=== PATIENT | female | born 1955 ===

== ENCOUNTER 2020-02-09 10:07 | Emergency (ER) | payer OTHER, SELFPAY ==
[2020-02-09 10:25] VITALS: BP 129/67; PULSE 98; RESP 16; TEMP 38; O2SAT 95; BMI 40.1
--- NOTE | 2020-02-09 10:41 | ED_ITS ---
HPI - Female Genitourinary General Chief complaint: Urogenital-Female Stated complaint: ?UTI Time Seen by Provider: 02/09/20 10:40 Source: patient Mode of arrival: ambulatory Limitations: no limitations History of Present Illness HPI Narrative: 64-year-old female with a past medical history of asthma here with urinary urgency, frequency and dysuria since last evening. Some mild suprapubic discomfort. No abdominal pain or back pain or flank pain or vomiting or fevers. She does tell me she had some body aches yesterday and called her primary care doctor and has an appointment on Tuesday to see him. She denies any fevers or chills. MD elicited complaint: dysuria and UTI Onset (ago): day(s) Severity: mild Female Urogenital Radiation: Non-Radiating Quality of pain: burning Consistency: constant Vaginal discharge: none Vaginal bleeding: none Urinary symptoms: Dysuria, Urgency and Frequency Exacerbating factors: urination Relieving factors: none Associated symptoms: denies other symptoms Treatment prior to arrival: none Sexual activity: No Patient : No Related Data Previous Rx's Medication Instructions Recorded levofloxacin 750 mg PO DAILY 5 Days #5 tab 02/09/20 phenazopyridine [Pyridium] 100 mg PO TID PRN #10 tab 02/09/20 Allergies Allergy/AdvReac Type Severity Reaction Status Date / Time Penicillins [PENICILLINS] Allergy Unknown RASH Verified 02/08/20 13:05 Review of Systems Review of Systems: Yes all other systems are reviewed and are negative Constitutional: Constitutional: Reports no additional constitutional complaints, Denies body ache(s), Denies chills, Denies fever(s), Denies headache(s) and Denies weakness Eyes: Eyes: Reports no additional eye complaints and Denies change in vision ENT: Reports system reviewed and no additional complaints, except as documented, Denies dizziness, Denies headache(s), Denies nasal congestion, Denies nasal discharge and Denies neck pain Cardiovascular: Cardiovascular: Reports no additional cardiovascular complaints, Denies chest pain, Denies leg edema and Denies dyspnea Respiratory: Respiratory: Reports no additional respiratory complaints, Denies cough and Denies dyspnea Gastrointestinal: Gastrointestinal: Reports no additional gastrointestinal complaints, Denies abdominal pain, Denies diarrhea, Denies nausea and Denies vomiting Genitourinary: Genitourinary: Reports no additional female genitourinary complaints, Reports dysuria, Denies pelvic pain, Denies flank pain, Denies urinary incontinence, Reports urinary hesitancy, Reports urinary urgency and Denies vaginal discharge Musculoskeletal: Musculoskeletal: Reports no additional musculoskeletal complaints, Denies back pain, Denies arthralgias, Denies joint swelling, Denies neck pain, Denies numbness and Denies tingling Integumentary/Breasts: Skin/Breast: Reports system reviewed and no additional complaints, except as docu and Denies rash Neurologic: Reports system reviewed and no additional complaints, except as documented, Denies Abnormal speech present, Denies dizziness, Denies he adache(s), Denies numbness, Denies tingling and Denies weakness PMFSH Past Medical History Attestation statement: The following information was validated with the patient. Source: obtained from family and nursing notes reviewed Medical History Asthma Surgical History History of cardiac catheterization History of colonoscopy History of nephrolithotomy with removal of calculi History of tooth extraction Family History Family History Father Hypertension Mother Hypertension Diabetes CVD (cardiovascular disease) Daughter No problems noted. Family/Other FH: mental illness Social History Social History Alcohol intake: never Smoking Status: Never smoker Advance Directives: No Advance Directives Information Provided: No Physical Exam Vital Signs: Vital Signs: Vital Signs Temp Pulse Resp BP Pulse Ox 02/09/20 10:25 100.4 F 98 16 129/67 95 Body Mass Index 40.1 Const: General: cooperative, healthy appearing, comfortable and no acute distress Orientation/consciousness: patient oriented x3 Limitations: no limitations HENMT: Head: Yes normal to inspection Ears: hearing grossly normal bilaterally General nose exam: Normal external nose present Face and sinus: Yes normal facial exam Mouth: Normal oral and palatal mucosa present Throat: Yes posterior oropharynx normal Eyes: General: appearance normal, both eyes and all related structures Pupils: Equal, round and reactive pupils present Neck: Neck: Yes normal visual inspection Chest: Chest palpation & inspection: normal inspection of the chest Resp: Effort & Inspection: normal respiratory effort Auscultation: clear to auscultation bilaterally Cardio: Rate: regular rate Rhythm: regular rhythm Peripheral pulses: Peripheral pulses 2+ throughout GI: Inspection: Yes normal to inspection Palpation (GI): Soft to palpation and nontender Auscultation: normal bowel sounds : General: Yes no CVA tenderness Back/Spine/Pelvis: Back: no CVA tenderness Thoracic/Lumbar Spine: thoracic and lumbar spine normal to inspection Skin: General skin exam: no rashes or lesions noted Neuro: General: patient oriented x3, no focal motor deficits and normal sensation to monofilament Cranial nerves: Yes Equal, round and reactive pupils present Cognition (Neuro): normal cognition Speech: No Abnormal spe ech present Gait exam (Neuro): Normal gait present Motor exam (neuro): 5/5 motor strength present throughout Extrem: General: Yes normal to inspection Course Course Course Narrative: Urinary symptoms. Will check UA. 1100-+UTI. WIll treat with oral antibiotics x 5 days. Low grade temp with no s/s systemic infection. No AP/flank pain, well appearing. Patient to take tylenol at home. reviewed worrisome signs and symptoms and when to return to the emergency department. Comfortable discharge home. MDM - Female Genitourinary MDM Narrative Medical decision making narrative: UA consistent with UTI. There is 1+ RBCs. The patient has no flank pain or severe abdominal pain that is concerning for renal colic. Likely acute cystitis. Medical Records Attestation: I reviewed the patient's medical records. Lab Data Attestation: I reviewed the patient's lab results. Labs: Lab Results 02/09/20 Range/Units 10:33 Urine Color YELLOW Urine Appearance CLEAR Urine pH 6.0 (5.0-8.0) Ur Specific Dexter 1.015 (1.005-1.025) Urine Protein NEG (NEG-TRACE) MG/DL Urine Glucose (UA) NEG (NEG) MG/DL Urine Ketones NEG (NEG) MG/DL Urine Blood 1+ H (NEG) Urine Nitrite NEG (NEG) Ur Leukocyte Esterase 1+ H (NEG) Urine RBC 1-4 (0) /HPF Urine WBC 15-29 H (0-4) /HPF Ur Squamous Epith Cells 1+ /LPF Urine Bacteria NONE /LPF Discharge Plan Discharge Clinical Impression: Urinary tract infection Qualifiers: Urinary tract infection type: acute cystitis Hematuria presence: with hematuria Qualified Code(s): N30.01 - Acute cystitis with hematuria Patient Disposition: Home, Self-Care Instructions: Urinary Tract Infection in Women (ED) Additional Instructions: increase fluids, rest Prescriptions: New levofloxacin 750 mg tablet 750 mg PO DAILY 5 Days Qty: 5 RF: 0 phenazopyridine [Pyridium] 100 mg tablet 100 mg PO TID PRN (Reason: pain) Qty: 10 RF: 0 Referrals: Curt Falk MD [Primary Care Provider] - 2 days
[2020-02-09 10:46] LABS: Glucose Urine UA NEG (NEG); Leukocyte Esterase Urine 1+ (NEG); Nitrite Urine NEG (NEG); Specific Gravity - Urine 1.015 (1.005-1.025); Urine Blood 1+ (NEG); Urine Ketones NEG (NEG); Urine Protein NEG (NEG-TRACE)
[2020-02-09 10:51] LABS: Appearance Urine CLEAR; Color Urine YELLOW
[2020-02-09 10:54] LABS: Squamous Epithelial Cell Urine 1+ /LPF
== END 2020-02-09 11:08 | disposition home or self-care (01) ==
PROVIDERS: Nurse Practitioner Family; Emergency Provider Emergency Medicine; PCP Internal Medicine
DX: N30.01 Acute cystitis with hematuria (principal); I10 Essential (primary) hypertension; R30.0 Dysuria; E11.9 Type 2 diabetes mellitus without complications; J45.909 Unspecified asthma, uncomplicated; Z79.899 Other long term (current) drug therapy
CPT/HCPCS: 81001; 87086; 99283; 99284

== ENCOUNTER 2020-02-11 10:51 | Outpatient (REF) | payer OTHER, SELFPAY ==
[2020-02-11 11:49] LABS: MANUAL DIFF FLAG NO
[2020-02-11 12:04] LABS: Basophils Percent Auto 0.8 % (0-2); Eosinophils Absolute Auto 0.3 X10*3/uL (0.0-0.4); Eosinophils Percent Auto 5.6 % (0-4); Hematocrit 36.8 % (37-47); Hemoglobin 11.6 g/dl (12.0-16.0); Imm Gran Abs Auto 0.02 X10*3/uL (0.00-0.03); Imm Gran Pct Auto 0.4 % (0.0-0.4); Mean Corpuscular HGB Conc 31.5 g/dl (31.0-35.0); Mean Corpuscular Hemoglobin 26.8 pg (27.0-33.0); Mean Platelet Volume 11.4 fL (9.4-12.3); Monocytes Absolute Auto 0.4 X10*3/uL (0.1-1.2); Monocytes Percent Auto 7.5 % (2-11); Neutrophils Absolute Auto 2.1 X10*3/uL (2.0-8.3); Neutrophils Percent Auto 43.7 % (45-73); Platelet Count 200 X10*3/uL (160-400); Red Blood Count 4.33 X10*6/uL (4.20-5.50); Red Cell Distribution Width 13.6 % (11.0-16.0); White Blood Count 4.8 X10*3/uL (4.8-10.8)
[2020-02-11 12:17] LABS: Glucose Urine UA NEG (NEG); Leukocyte Esterase Urine NEG (NEG); PH 5.5 (5.0-8.0); Specific Gravity - Urine >= 1.030 (1.005-1.025); Urine Blood NEG (NEG); Urine Ketones NEG (NEG); Urine Protein TRACE MG/DL (NEG-TRACE)
[2020-02-11 12:23] LABS: Alanine Aminotransferase 12 U/L (0-31); Albumin Level 4.2 g/dL (3.5-5.0); Alkaline Phosphatase 71 U/L (39-117); Anion Gap 13 (12-20); Aspartate Amino Transferase 18 U/L (5-31); Bilirubin Total 0.3 mg/dL (0.0-1.0); Blood Urea Nitrogen 14 mg/dL (9-16); C Reactive Protein 0.51 mg/dL (< or = 0.50); Calcium 9.4 mg/dL (8.4-10.2); Carbon Dioxide 28 mmol/L (22-29); Chloride 106 mmol/L (96-108); Cholesterol 252 mg/dL; Estimated Glomerular Filt Rate 55; Glucose Fasting 98 mg/dL (60-99); HDL Cholesterol 37 mg/dL; LDL Cholesterol Calculated 163 mg/dl; Potassium 4.1 mmol/l (3.3-5.1); Rheumatoid Factor < 15.0 IU/mL (<15.0); Sodium 143 mmol/L (135-145); Total Protein 6.9 g/dL (6.5-8.0); Triglycerides 261 mg/dL
[2020-02-11 12:28] LABS: Appearance Urine HAZY; Color Urine YELLOW
[2020-02-11 12:47] LABS: Nitrite Urine NEG (NEG); RBC Urine 0 /HPF (0); WBC Urine 0-2 /HPF (0-4)
[2020-02-11 12:48] LABS: Calcium Oxalate Crystals Urine TRACE /LPF; Squamous Epithelial Cell Urine 1+ /LPF
[2020-02-11 12:52] LABS: Erythrocyte Sedimentation Rate 30 MM/HR (0-20)
[2020-02-12 08:37] LABS: Lyme Abs Screen <0.90 index
== END 2020-02-11 10:52 | disposition home or self-care (01) ==
LOC: HO.LAB 10:51
PROVIDERS: PCP Internal Medicine; Visit Provider Internal Medicine
DX: M25.50 Pain in unspecified joint (principal); N30.10 Interstitial cystitis (chronic) without hematuria; K21.9 Gastro-esophageal reflux disease without esophagitis; I25.10 Atherosclerotic heart disease of native coronary artery without angina pectoris; I10 Essential (primary) hypertension; E78.00 Pure hypercholesterolemia, unspecified; E66.9 Obesity, unspecified
CPT/HCPCS: 36415; 80053; 80061; 81001; 81003; 84443; 85025; 85652; 86038; 86039; 86140; 86431; 86618; 87086; 87088; 87186

== ENCOUNTER 2020-04-17 07:23 | Emergency (ER) | payer OTHER, SELFPAY ==
[2020-04-17 07:34] VITALS: BP 112/67; PULSE 87; RESP 16; TEMP 36.6; O2SAT 99; BMI 39.0
--- NOTE | 2020-04-17 08:00 | ED.SKABFB ---
HPI - Skin/Abscess/Foreign Bdy General Chief complaint: Skin/Abscess/Foreign Body Stated complaint: allergies Time Seen by Provider: 04/17/20 07:57 History of Present Illness HPI narrative: Patient is 64-year-old female presented today with a history allergic reactions. Patient has been taking multiple antihistamines. Symptoms not getting any better. Patient claims that she has had steroids in the past and help. No history diabetes. No fever no chills no cough no congestion or upper respiratory symptoms. No diaphoresis. No swelling to the lips no swelling to the tongues. Patient is from home. The rash is over bilateral hands bilateral legs. It is red it is itchy. It changes shape. Related Data Home Medications Medication Instructions Recorded Confirmed clonazepam 1 mg tablet 1 mg PO TID PRN 02/11/20 02/26/20 hydroxyzine HCl 25 mg tablet 25 mg PO TID 02/11/20 02/26/20 montelukast 10 mg tablet 10 mg PO DAILY 02/11/20 02/26/20 quetiapine 200 mg tablet 200 mg PO BEDTIME 02/11/20 02/26/20 cetirizine 10 mg tablet 10 mg PO BID 02/26/20 02/26/20 oxycodone-acetaminophen 7.5 mg-325 1 tab PO Q6H PRN 03/07/20 mg tablet prednisone 20 mg tablet 20 mg PO DAILY 04/03/20 Previous Rx's Medication Instructions Recorded omeprazole 40 mg capsule,delayed 40 mg PO DAILY #90 cap 02/11/20 release rosuvastatin 40 mg tablet 40 mg PO DAILY #90 tab 03/06/20 prednisone 40 mg PO DAILY 4 Days #10 tab 04/17/20 Allergies Allergy/AdvReac Type Severity Reaction Status Date / Time Penicillins [PENICILLINS] Allergy Intermediate RASH Verified 02/26/20 13:04 Review of Systems Review of Systems: Constitutional: No Weight loss, No Fever, No Chills, No Night Sweats, No Fatigue, No Malaise ENT/Mouth: No Hearing loss, No Ear Pain, No Nasal Congestion, No Sinus Pain, No Hoarseness, No sore throat, No Rhinorrhea, No Swallowing Difficulty Eyes: No Eye Pain, No Swelling, No Redness, No Foreign Body, No Discharge, No Vision Changes Cardiovascular: No Chest Pain, No SOB, No Dyspnea on Exertion, No Orthopnea, No Edema, No Palpitations Respiratory: No Cough, No Sputum, No Wheezing, No Smoke Exposure, No Dyspnea Gastrointestinal: No Nausea, No Vomiting, No Diarrhea, No Constipation, No abdominal Pain, No Hematochezia, No Melena Genitourinary: no irregular bleeding, No Dysuria, No Urinary Frequency, No Hematuria, No Urinary Incontinence, No Urgency, No Flank Pain, No Urinary Flow Changes, No Hesitancy Musculoskeletal: No joint pain, No Myalgias, No Joint Swelling Skin: No Skin Lesions, positive rash Neuro: No Weakness, No Numbness, No Paresthesias, No Loss of Consciousness, No Dizziness, No Headache Psych: No Anxiety/Panic, No Depression, No SI/HI/AH/VH, No Social Issues, Heme/Lymph: No Bruising, No Bleeding,No Lymphadenopathy Endocrine: No Polyuria, No Polydipsia, No Temperature Intolerance [facility] Past Medical History Medical History Anxiety Arthralgia Benign essential hypertension CAD (coronary artery disease) Chronic interstitial cystitis Depression Esophageal stricture GERD (gastroesophageal reflux disease) Insomnia Irritable bowel syndrome (IBS) Left lumbar radiculopathy Lumbar degenerative disc disease Obesity (BMI 30-39.9) Osteoarthritis Pure hypercholesterolemia Urticaria Vitamin D deficiency Surgical History History of cardiac catheterization History of colonoscopy History of nephrolithotomy with removal of calculi History of tooth extraction Status post balloon dilatation of esophageal stricture (~2005) Family History Family History Father Hypertension Mother Hypertension Diabetes CVD (cardiovascular disease) Daughter No problems noted. Family/Other FH: mental illness Social History Social History Alcohol intake: never Smoking Status: Never smoker Advance Directives: No Advance Directives Information Provided: No Physical Exam Vital Signs: Vital Signs: Last Vital Signs Temp 97.8 F 04/17/20 07:34 Pulse 87 04/17/20 07:34 Resp 16 04/17/20 07:34 BP 112/67 04/17/20 07:34 Pulse Ox 99 04/17/20 07:34 Body Mass Index 39.0 Constitutional: No Weight loss, No Fever, No Chills, No Night Sweats, No Fatigue, No Malaise ENT/Mouth: No Hearing loss, No Ear Pain, No Nasal Congestion, No Sinus Pain, No Hoarseness, No sore throat, No Rhinorrhea, No Swallowing Difficulty Eyes: No Eye Pain, No Swelling, No Redness, No Foreign Body, No Discharge, No Vision Changes Cardiovascular: No Chest Pain, No SOB, No Dyspnea on Exertion, No Orthopnea, No Edema, No Palpitations Respiratory: No Cough, No Sputum, No Wheezing, No Smoke Exposure, No Dyspnea Gastrointestinal: No Nausea, No Vomiting, No Diarrhea, No Constipation, No abdominal Pain, No Hematochezia, No Melena Genitourinary: no irregular bleeding, No Dysuria, No Urinary Frequency, No Hematuria, No Urinary Incontinence, No Urgency, No Flank Pain, No Urinary Flow Changes, No Hesitancy Musculoskeletal: No joint pain, No Myalgias, No Joint Swelling Skin: No Skin Lesions, positive erythematous rash over the hands and legs. It has an irregular border it is red. It is pruritic. It blanches. Neuro: No Weakness, No Numbness, No Paresthesias, No Loss of Consciousness, No Dizziness, No Headache Psych: No Anxiety/Panic, No Depression, No SI/HI/AH/VH, No Social Issues, Heme/Lymph: No Bruising, No Bleeding,No Lymphadenopathy Endocrine: No Polyuria, No Polydipsia, No Temperature Intolerance MDM - Skin/Abscess/Foreign Bdy MDM Narrative Medical decision making narrative: Uticaria no specific cause. Patient well appearing. Have tried antihistamine to no avail. Will start patient on steroids. Close follow-up on an outpatient basis. In stable condition. Medical Records Attestation: I reviewed the patient's medical records. Discharge Plan Discharge Clinical Impression: Acute urticaria Patient Disposition: Home, Self-Care Instructions: Allergies (ED) Prescriptions: New prednisone 20 mg tablet 40 mg PO DAILY 4 Days Qty: 10 RF: 0 No Action omeprazole 40 mg capsule,delayed release(DR/EC) 40 mg PO DAILY Qty: 90 RF: 1 rosuvastatin 40 mg tablet 40 mg PO DAILY Qty: 90 RF: 1 oxycodone-acetaminophen 7.5-325 mg tablet 1 tab PO Q6H PRNRF: 0 prednisone 20 mg tablet 20 mg PO DAILY RF: 0 cetirizine 10 mg tablet 10 mg PO BID RF: 0 clonazepam 1 mg tablet 1 mg PO TID PRNRF: 0 montelukast 10 mg tablet 10 mg PO DAILY RF: 0 hydroxyzine HCl 25 mg tablet 25 mg PO TID RF: 0 quetiapine 200 mg tablet 200 mg PO BEDTIME RF: 0 Referrals: Curt Falk MD [Primary Care Provider] - 2 days
== END 2020-04-17 08:32 | disposition home or self-care (01) ==
PROVIDERS: Emergency Provider Emergency Medicine Emergency Medical Services; PCP Internal Medicine
DX: L50.0 Allergic urticaria (principal); I25.10 Atherosclerotic heart disease of native coronary artery without angina pectoris; Z79.899 Other long term (current) drug therapy
CPT/HCPCS: 99283

== ENCOUNTER 2020-05-13 09:40 | Outpatient (REF) | payer OTHER, SELFPAY ==
[2020-05-13 10:54] LABS: MANUAL DIFF FLAG NO
[2020-05-13 10:57] LABS: Basophils Absolute Auto 0.1 X10*3/uL (0.0-0.2); Basophils Percent Auto 0.4 % (0-2); Eosinophils Absolute Auto 0.3 X10*3/uL (0.0-0.4); Eosinophils Percent Auto 2.6 % (0-4); Hematocrit 37.8 % (37-47); Hemoglobin 11.6 g/dl (12.0-16.0); Imm Gran Pct Auto 0.9 % (0.0-0.4); Lymphocytes Absolute Auto 4.7 X10*3/uL (1.2-4.9); Lymphocytes Percent Auto 40.3 % (20-40); Mean Corpuscular HGB Conc 30.7 g/dl (31.0-35.0); Mean Corpuscular Hemoglobin 25.7 pg (27.0-33.0); Mean Corpuscular Volume 83.8 fL (80-98); Mean Platelet Volume 11.1 fL (9.4-12.3); Monocytes Absolute Auto 0.6 X10*3/uL (0.1-1.2); Monocytes Percent Auto 5.3 % (2-11); Neutrophils Absolute Auto 5.9 X10*3/uL (2.0-8.3); Neutrophils Percent Auto 50.5 % (45-73); Platelet Count 240 X10*3/uL (160-400); Red Blood Count 4.51 X10*6/uL (4.20-5.50); Red Cell Distribution Width 15.3 % (11.0-16.0); White Blood Count 11.6 X10*3/uL (4.8-10.8)
[2020-05-13 11:40] LABS: Glucose Urine UA NEG (NEG); Leukocyte Esterase Urine NEG (NEG); Nitrite Urine POS (NEG); Specific Gravity - Urine 1.025 (1.005-1.025); UACC Culture Trigger YES; Urine Blood NEG (NEG); Urine Ketones NEG (NEG); Urine Protein NEG (NEG-TRACE)
[2020-05-13 11:55] LABS: Appearance Urine HAZY; Color Urine YELLOW
[2020-05-13 12:20] LABS: Alanine Aminotransferase 18 U/L (0-31); Albumin Level 4.4 g/dL (3.5-5.0); Alkaline Phosphatase 82 U/L (39-117); Anion Gap 14 (12-20); Bilirubin Total 0.3 mg/dL (0.0-1.0); Blood Urea Nitrogen 18 mg/dL (9-16); C Reactive Protein 0.32 mg/dL (< or = 0.50); Calcium 9.1 mg/dL (8.4-10.2); Carbon Dioxide 28 mmol/L (22-29); Chloride 106 mmol/L (96-108); Cholesterol 282 mg/dL; Estimated Glomerular Filt Rate 55; Glucose Fasting 91 mg/dL (60-99); HDL Cholesterol 62 mg/dL; LDL Cholesterol Calculated 184 mg/dl; Potassium 4.2 mmol/l (3.3-5.1); Sodium 144 mmol/L (135-145); TSH reflex Free T4 3.69 mIU/mL (0.32-4.0); Total Protein 7.2 g/dL (6.5-8.0); Triglycerides 183 mg/dL
[2020-05-13 12:23] LABS: RBC Urine 0 /HPF (0); Squamous Epithelial Cell Urine 1+ /LPF; WBC Urine 0 /HPF (0-4)
[2020-05-13 12:23] LABS: Erythrocyte Sedimentation Rate 20 MM/HR (0-20)
[2020-05-13 12:24] LABS: Mucus Urine 1+ /LPF; Renal Epithelial Cells Urine 1+ /LPF
[2020-05-13 12:32] LABS: Aspartate Amino Transferase 16 U/L (5-31)
== END 2020-05-13 09:41 | disposition home or self-care (01) ==
LOC: HO.LAB 09:40
PROVIDERS: PCP Internal Medicine; Referring Provider Internal Medicine; Visit Provider Urology
DX: E78.00 Pure hypercholesterolemia, unspecified (principal); M51.36 Other intervertebral disc degeneration, lumbar region; I10 Essential (primary) hypertension; M19.90 Unspecified osteoarthritis, unspecified site; M25.50 Pain in unspecified joint; N30.10 Interstitial cystitis (chronic) without hematuria; N20.0 Calculus of kidney
CPT/HCPCS: 36415; 80053; 80061; 81001; 81002; 81003; 84443; 85025; 85652; 86140; 87086

== ENCOUNTER 2020-06-04 14:20 | Outpatient (REF) | payer OTHER, SELFPAY ==
--- NOTE | ~2020-06-04 | US_ITS ---
EXAMINATION: US RETROPERITONEAL LIMITED (RENAL ONLY) CLINICAL INFORMATION: Calculus of kidney. COMPARISON: Renal ultrasound 12/12/2019. CT abdomen and pelvis 06/14/2019. TECHNIQUE: Real-time imaging of the kidneys. FINDINGS: RIGHT KIDNEY: 11.5 x 3.9 x 4.7 cm (SAG x AP x TRV). The kidney is normal in size, contour, and echogenicity. Renal cortical thickness is normal. There is a 4 mm echogenic density with twinkle artifact in the lower pole suggestive of a stone. No focal parenchymal lesions or hydronephrosis. LEFT KIDNEY: 10.1 x 4.6 x 4.3 cm (SAG x AP x TRV). The kidney is normal in size, contour, and echogenicity. Renal cortical thickness is normal. There is a 3 mm echogenic density with twinkle artifact suggestive of a stone. No focal parenchymal lesions or hydronephrosis. US/US renal BI IMPRESSION: Small bilateral renal stones..
== END 2020-06-04 14:21 | disposition home or self-care (01) ==
LOC: HO.US 14:20
PROVIDERS: Visit Provider Urology
DX: N20.0 Calculus of kidney (principal)
CPT/HCPCS: 76775

== ENCOUNTER → 2020-06-18 14:44 | Outpatient (BNVA) | payer OTHER, SELFPAY | PROVIDERS: PCP Internal Medicine; Visit Provider Urology | DX: N20.0 Calculus of kidney (principal); N30.10 Interstitial cystitis (chronic) without hematuria | CPT/HCPCS: 99212 ==

== ENCOUNTER 2020-06-19 13:51 | Outpatient (REF) | payer OTHER, SELFPAY ==
[2020-06-19 14:54] LABS: MANUAL DIFF FLAG NO
[2020-06-19 14:57] LABS: Basophils Percent Auto 0.2 % (0-2); Hematocrit 36.6 % (37-47); Hemoglobin 11.7 g/dl (12.0-16.0); Imm Gran Abs Auto 0.19 X10*3/uL (0.00-0.03); Imm Gran Pct Auto 1.8 % (0.0-0.4); Mean Corpuscular Hemoglobin 26.5 pg (27.0-33.0); Monocytes Absolute Auto 0.4 X10*3/uL (0.1-1.2); Monocytes Percent Auto 3.7 % (2-11); Neutrophils Absolute Auto 8.7 X10*3/uL (2.0-8.3); Neutrophils Percent Auto 84.3 % (45-73); Platelet Count 248 X10*3/uL (160-400); Red Blood Count 4.41 X10*6/uL (4.20-5.50); Red Cell Distribution Width 15.8 % (11.0-16.0); White Blood Count 10.3 X10*3/uL (4.8-10.8)
[2020-06-19 15:00] LABS: Glucose Urine UA NEG (NEG); Leukocyte Esterase Urine NEG (NEG); Nitrite Urine NEG (NEG); PH 6.5 (5.0-8.0); Urine Blood NEG (NEG); Urine Ketones NEG (NEG); Urine Protein TRACE MG/DL (NEG-TRACE)
[2020-06-19 15:01] LABS: Appearance Urine CLEAR; Color Urine YELLOW
[2020-06-19 15:09] LABS: Bacteria Urine TRACE /LPF; RBC Urine 0 /HPF (0); Squamous Epithelial Cell Urine TRACE /LPF; WBC Urine 0 /HPF (0-4)
[2020-06-19 15:22] LABS: Alanine Aminotransferase 16 U/L (0-31); Albumin Level 4.6 g/dL (3.5-5.0); Alkaline Phosphatase 71 U/L (39-117); Anion Gap 13 (12-20); Aspartate Amino Transferase 14 U/L (5-31); Bilirubin Total 0.7 mg/dL (0.0-1.0); Blood Urea Nitrogen 13 mg/dL (9-16); C Reactive Protein 0.39 mg/dL (< or = 0.50); Calcium 9.9 mg/dL (8.4-10.2); Carbon Dioxide 28 mmol/L (22-29); Chloride 106 mmol/L (96-108); Estimated Glomerular Filt Rate 59; Glucose Random 95 mg/dL (60-115); Potassium 3.9 mmol/L (3.3-5.1); Rheumatoid Factor < 15.0 IU/mL (<15.0); Sodium 143 mmol/L (135-145); Total Protein 7.6 g/dL (6.5-8.0)
[2020-06-19 15:42] LABS: Thyroid Stimulating Hormone 0.18 uIU/mL (0.32-4.0)
[2020-06-19 16:21] LABS: Erythrocyte Sedimentation Rate 23 MM/HR (0-20)
[2020-06-20 05:32] LABS: Thyroglobulin Antibodies <1 IU/mL (< or = 1); Thyroid Peroxidase Antibodies <1 IU/mL (<9)
[2020-06-20 13:07] LABS: Cyclic Citrullinated Peptide <16 UNITS
[2020-06-20 13:56] LABS: Anti Nuclear Antibody Screen NEGATIVE (NEGATIVE); Complement C3 171 mg/dL (83-193)
[2020-06-21 12:56] LABS: Anti DNA DS Antibody <1 IU/mL; Antibody to SS-A Antigen <1.0 NEG AI (<1.0 NEG); Antibody to SS-B Antigen <1.0 NEG AI (<1.0 NEG); SM/Ribonucleoprotein Ab <1.0 NEG AI (<1.0 NEG); Scleroderma 70 Antibody <1.0 NEG AI (<1.0 NEG); Smith Protein <1.0 NEG AI (<1.0 NEG)
[2020-06-23 12:56] LABS: Vitamin D 25-OH, D2 <4 ng/mL; Vitamin D 25-OH, D3 17 ng/mL; Vitamin D 25-OH, Total 17 ng/mL (30-100)
== END 2020-06-19 13:52 | disposition home or self-care (01) ==
LOC: HO.LAB 13:51
PROVIDERS: PCP Internal Medicine; Visit Provider Student in an Organized Health Care Education/Training Program
DX: R76.8 Other specified abnormal immunological findings in serum (principal); M25.50 Pain in unspecified joint; L50.1 Idiopathic urticaria; Z79.52 Long term (current) use of systemic steroids
CPT/HCPCS: 36415; 80053; 81001; 82306; 84443; 85025; 85652; 86038; 86039; 86140; 86160; 86200; 86225; 86235; 86376; 86431; 86800; 99202

== ENCOUNTER 2020-07-07 10:54 | Day surgery (SDC) | payer OTHER, SELFPAY ==
[2020-07-03 12:22] VITALS: BMI 42.0
--- NOTE | 2020-07-04 11:41 | HO.ANESPROP2 ---
Documented by User: Christine Callaway 07/04/20 11:49 HPI - Anesthesia Eval Consult details Narrative: 65yo F for Cystoscopy Hydrodistention of Bladder No prev on record PMFSH Active Problems Active Problems: All Active Problems (Updated 06/19/20 @ 14:19 by Cb Gallegos MD) assisted systemic steroid user (Acute) Polyarthralgia (Acute) KAMILA positive (Acute) Nephrolithiasis (Acute) Urticaria (Acute) Obesity (BMI 30-39.9) (Acute) Depression (Acute) Anxiety (Acute) Insomnia (Acute) Vitamin D deficiency (Acute) Chronic interstitial cystitis (Acute) Irritable bowel syndrome (IBS) (Acute) Arthralgia (Acute) Osteoarthritis (Acute) Esophageal stricture (Acute) GERD (gastroesophageal reflux disease) (Acute) Left lumbar radiculopathy (Acute) Lumbar degenerative disc disease (Acute) CAD (coronary artery disease) (Acute) Pure hypercholesterolemia (Acute) Benign essential hypertension (Acute) Past Medical History Medical History (Updated 07/04/20 @ 11:49 by Christine Callaway) KAMIAL positive Anxiety Arthralgia Benign essential hypertension CAD (coronary artery disease) Chronic interstitial cystitis Depression Esophageal stricture GERD (gastroesophageal reflux disease) Insomnia Irritable bowel syndrome (IBS) Left lumbar radiculopathy Lumbar degenerative disc disease Obesity Obesity (BMI 30-39.9) Osteoarthritis Pure hypercholesterolemia Urticaria Vitamin D deficiency Family History Family History Father Hypertension Mother Hypertension Diabetes CVD (cardiovascular disease) Daughter No problems noted. Family/Other FH: mental illness Surgical History Surgical History History of cardiac catheterization History of colonoscopy History of nephrolithotomy with removal of calculi History of tooth extraction Status post balloon dilatation of esophageal stricture (~2005) Social History Social History (Updated 07/03/20 @ 12:22 by Argenis Holland) Alcohol intake: never Smoking Status: Never smoker Use of substances other than those prescribed or required for medical reasons: No Have you been hit, kicked, punched, or otherwise hurt by someone within the past year? If so, by whom?: No Advance Directives: No Advance Directives Information Provided: No Advance Directives on File: No Meds Allergies Allergy/AdvReac Type Severity Reaction Status Date / Time Penicillins [PENICILLINS] Allergy Intermediate RASH Verified 07/07/20 12:50 Home Medications Medication Instructions Recorded Confirmed Last Taken Type clonazepam 1 mg tablet 1 mg PO TID PRN 02/11/20 07/03/20 07/07/20 10:00 History oxycodone-acetaminophen 7.5 mg-325 1 tab PO Q6-8H PRN tab 06/03/20 07/03/20 07/07/20 10:00 History mg tablet prednisone 1 mg tablet 4 mg PO DAILY 06/18/20 Unknown History prednisone 10 mg tablet 10 mg PO QAM 06/18/20 Unknown History prednisone 5 mg tablet 5 mg PO DAILY 06/18/20 Unknown History bupropion HCl 1 tab PO DAILY 07/01/20 07/03/20 Unknown History naproxen 1 tab PO BEDTIME PRN 07/01/20 07/01/20 Unknown History quetiapine 1 tab PO BEDTIME 07/03/20 07/03/20 Unknown History Exam Exam Date and Time: July 04, 2020 1141 Height,Weight and Vital Signs: Height 4 ft 11 in Weight 94.347 kg Pertinent Lab Results Pertinent Lab Results: Laboratory Tests 06/19/20 06/19/20 14:43 14:43 WBC 10.3 Hgb 11.7 L Hct 36.6 L Plt Count 248 Sodium 143 Potassium 3.9 Chloride 106 Carbon Dioxide 28 BUN 13 Creatinine 0.95 Narrative Narrative: 2018 Abnormal Echo and Normal stress. Cath done with NO SIGNIFICANT CAD, NORMAL LVEF AND NO R WMA. Suggests CP r/t GERD Assessment and Plan Assessment Anesthesia Assessment: Chart Reviewed Documented by User: Rosendo Pacheco MD 07/07/20 12:55 [facility] Past Medical History Medical History (Updated 07/04/20 @ 11:49 by Christine Callaway) KAMILA positive Anxiety Arthralgia Benign essential hypertension CAD (coronary artery disease) Chronic interstitial cystitis Depression Esophageal stricture GERD (gastroesophageal reflux disease) Insomnia Irritable bowel syndrome (IBS) Left lumbar radiculopathy Lumbar degenerative disc disease Obesity Obesity (BMI 30-39.9) Osteoarthritis Pure hypercholesterolemia Urticaria Vitamin D deficiency Family History Family History Father Hypertension Mother Hypertension Diabetes CVD (cardiovascular disease) Daughter No problems noted. Family/Other FH: mental illness Surgical History Surgical History History of cardiac catheterization History of colonoscopy History of nephrolithotomy with removal of calculi History of tooth extraction Status post balloon dilatation of esophageal stricture (~2005) Social History Social History (Updated 07/03/20 @ 12:22 by Argenis Holland) Alcohol intake: never Smoking Status: Never smoker Use of substances other than those prescribed or required for medical reasons: No Have you been hit, kicked, punched, or otherwise hurt by someone within the past year? If so, by whom?: No Advance Directives: No Advance Directives Information Provided: No Advance Directives on File: No Meds Allergies Allergy/AdvReac Type Severity Reaction Status Date / Time Penicillins [PENICILLINS] Allergy Intermediate RASH Verified 07/07/20 12:50 Home Medications Medication Instructions Recorded Confirmed Last Taken Type clonazepam 1 mg tablet 1 mg PO TID PRN 02/11/20 07/03/20 07/07/20 10:00 History oxycodone-acetaminophen 7.5 mg-325 1 tab PO Q6-8H PRN tab 06/03/20 07/03/20 07/07/20 10:00 History mg tablet prednisone 1 mg tablet 4 mg PO DAILY 06/18/20 Unknown History prednisone 10 mg tablet 10 mg PO QAM 06/18/20 Unknown History prednisone 5 mg tablet 5 mg PO DAILY 06/18/20 Unknown History bupropion HCl 1 tab PO DAILY 07/01/20 07/03/20 Unknown History naproxen 1 tab PO BEDTIME PRN 07/01/20 07/01/20 Unknown History quetiapine 1 tab PO BEDTIME 07/03/20 07/03/20 Unknown History Assessment and Plan Assessment Anesthesia Assessment: Anesthesia Plan Discussed and Chart Reviewed Final Anesthetic Review NPO: Yes ASA Class: III Final Preanesthetic Review: No Changes in Pt Med Stat, Meds/Allgs Chart Reviewed, Consent Obtained/Reviewed and Anes Risks/Benef Reviewed Patient Risk: High Procedure Risk: Intermediate Anesthetic Plan Anesthetic Plan: GA Disposition: Standard PACU
[2020-07-07 12:02] VITALS: BP 131/68; PULSE 79; RESP 18; TEMP 36.2; O2SAT 95
[2020-07-07] MEDS: Lactated Ringers 1,000 ML 100 ML IVCONT (12:41)
[2020-07-07] MEDS: levoFLOXacin 500 MG TABLET PO (12:46)
[2020-07-07] MEDS: Acetaminophen 325 MG TABLET 650 MG PO (12:46)
--- NOTE | 2020-07-07 13:27 | MHC.SHP ---
Pre-Procedural Eval Section A The patient is an INPATIENT: No Changes since office visit: No Cold of Flu in the past 2 weeks, No New Medical Problems, No Changes in Medication and No Patient answered all questions The History & Physical has been completed within 30 days and I have reviewed it.: Yes Section B Chief Complaint: interstitial cystitis Allergies: Allergies Allergy/AdvReac Type Severity Reaction Status Date / Time Penicillins [PENICILLINS] Allergy Intermediate RASH Verified 07/07/20 12:50 Plan Diagnosis/Plan: Unchanged (Hydrodistention) I have reviewed the history and physical and performed a pertinent physical examination on my patient. No changes have occurred unless specified.
--- NOTE | 2020-07-07 14:06 | PM.OP ---
Brief Operative Note Date of Service: 07/07/20 Pre-op diagnosis: Interstitial cystitis Post-op diagnosis: same Procedure: Cystoscopy with hydrodistention Surgeon: Raymundo Lopez MD Anesthesia: MAC Estimated blood loss (mL): 0 Pathology: none sent Condition: stable Disposition: same day
--- NOTE | 2020-07-07 14:11 | W.PM.OPN ---
Operative Note Operative Note Date of Service: 07/07/20 Narrative: PreOperative Diagnosis: Interstitial cystitis Post Operative Diagnosis: Interstitial cystitis Procedure: Hydrodistention Surgeon: Dr Raymundo Lopez Anesthesia: Sedation Indications for procedure: This is a 65-year-old female. None interstitial cystitis. Does well with hydrodistention. Last hydrodistention approximately 1 year ago. Procedure: After informed consent was verified the patient was brought to the operating room and placed in a supine position. Anesthesia was administered per protocol. Patient was placed in a modified dorsal lithotomy position and prepped and draped in a sterile fashion. Safety pause time-out was performed. The bladder was drained. Lidocaine viscous was placed for a total of 1 minutes. Twenty-two Croatian cystoscope was placed. Bladder was filled and held in position for 3 minutes. First total 325 cc. This was repeated 2nd total 325 cc. The bladder was markedly trabeculated. A completion of the hydrodistention mixture of viscous lidocaine, lidocaine and bupivacaine was placed in the bladder for postprocedure pain control. Patient was transferred in stable condition to the recovery area. Pathology: none Drains: none
[2020-07-07 14:14] VITALS: BP 145/76; PULSE 86; RESP 20; TEMP 36.3; O2SAT 99
[2020-07-07 14:19] VITALS: BP 156/75; PULSE 84; RESP 18; O2SAT 95
[2020-07-07 14:24] VITALS: BP 143/77; PULSE 85; RESP 18; O2SAT 95
[2020-07-07 14:29] VITALS: BP 144/80; PULSE 86; RESP 20; O2SAT 96
[2020-07-07] MEDS: NaPROXEN 500 MG TABLET PO (14:29)
[2020-07-07] MEDS: Phenazopyridine HCL 100 MG TABLET PO (14:29)
[2020-07-07 14:42] VITALS: BP 145/81; PULSE 83; RESP 18; O2SAT 96
== END 2020-07-07 15:12 | disposition home or self-care (01) ==
PROVIDERS: PCP Internal Medicine; Visit Provider Urology
PROC: 0T7B7ZZ Dilation of Bladder, Via Natural or Artificial Opening (ICD-10-PCS; CPT 52260; principal; 2020-07-07 13:00)
DX: N30.10 Interstitial cystitis (chronic) without hematuria (principal); I10 Essential (primary) hypertension; F32.9 Major depressive disorder, single episode, unspecified; Z87.442 Personal history of urinary calculi; Z79.52 Long term (current) use of systemic steroids; Z88.0 Allergy status to penicillin
CPT/HCPCS: 52260; J1100; J2250; J2405; J3010

== ENCOUNTER 2020-07-15 13:04 | Outpatient (REF) | payer OTHER, SELFPAY ==
--- NOTE | ~2020-07-15 | MM_ITS ---
EXAMINATION: BONE DENSITOMETRY CLINICAL INDICATION: Long-term, current, use of systemic steroids. COMPARISON: This is the patient's baseline examination. TECHNIQUE: Using a [employer] DXA System (software version: 13.1) manufactured by [employer], dual-energy x-ray absorptiometry was performed of the lumbar spine and left hip. The images are of good technical quality. Summary results are attached. FINDINGS: AP SPINE L2-L4 (excluding L1): The data of L1-L4 has been changed to exclude the L1 vertebral body, because degenerative sclerosis at this level may cause overestimation of lumbar spine density. BMD 1.216 g/cm2, Z-score 1.0, T-score 0.1, normal. LEFT FEMUR, NECK: BMD 0.826 g/cm2, Z-score -0.5, T-score -1.5, osteopenia. LEFT FEMUR, TOTAL: BMD 1.026 g/cm2, Z-score 0.8, T-score 0.1, normal. IDENTIFIED RISK FACTORS: Rheumatoid arthritis, osteoporosis, family history (parental hip fracture), glucocorticoids (chronic), bilateral oophorectomy, hysterectomy. Early menopause, secondary osteoporosis. HISTORY OF FRACTURE: None listed. MEDICATIONS: None listed. MM/XR DEXA axial skeleton IMPRESSION: 1. DIAGNOSIS: Osteopenia based on the lowest T-score value of -1.5 in the femoral neck applying World Health Organization criteria. 2. 10-YEAR FRACTURE RISK PREDICTION, FRAX: Major osteoporotic fracture (clinical spine, forearm, hip or shoulder) 17.3%. Hip fracture 1.6%. 3. Treatment Recommendations: NOF guidelines recommend consideration for treatment in postmenopausal women and men age 50 and older presenting with the following: -A hip or vertebral (clinical or morphometric) fracture. -T-score less than or equal to -2.5 at the femoral neck or spine after appropriate evaluation to exclude secondary causes. -Low bone mass at the hip or spine and a 10-year fracture probability by FRAX of greater than or equal to 3% for hip fracture or greater than or equal to 20% for major osteoporotic fracture based on the [place] adapted WHO algorithm. 4. Other Recommendations: All treatment decisions require clinical judgment and consideration of individual patient factors, including patient preferences, comorbidities, previous drug use, risk factors not captured in the FRAX model (e.g. frailty, falls, vitamin D deficiency, increased bone turnover, interval significant decline in bone density) and possible under or overestimation of fracture risk by FRAX. Additional medical evaluation for secondary cause of low bone mineral density may be appropriate. FUTURE SCAN RECOMMENDATION: People with diagnosed cases of osteoporosis or at high risk for fracture should have regular bone mineral density tests. For patients eligible for Medicare, routine testing is allowed once every 2 years. The testing frequency can be increased to one year for patients who have rapidly progressing disease, those who are receiving or discontinuing medical therapy to restore bone mass, or have additional risk factors.
== END 2020-07-15 13:05 | disposition home or self-care (01) ==
LOC: HO.MAMMO 13:04
PROVIDERS: Visit Provider Student in an Organized Health Care Education/Training Program
DX: Z13.820 Encounter for screening for osteoporosis (principal); Z78.0 Asymptomatic menopausal state; M06.9 Rheumatoid arthritis, unspecified; Z79.52 Long term (current) use of systemic steroids; Z90.722 Acquired absence of ovaries, bilateral; Z90.710 Acquired absence of both cervix and uterus
CPT/HCPCS: 77080

== ENCOUNTER → 2020-07-22 13:16 | Outpatient (BNVA) | payer OTHER, SELFPAY | PROVIDERS: PCP Internal Medicine; Visit Provider Urology | DX: N30.10 Interstitial cystitis (chronic) without hematuria (principal); R35.1 Nocturia; Z91.81 History of falling; Z88.0 Allergy status to penicillin | CPT/HCPCS: Q3014 ==

== ENCOUNTER → 2020-08-19 14:47 | Outpatient (BNVA) | payer OTHER, SELFPAY | PROVIDERS: Visit Provider Student in an Organized Health Care Education/Training Program | DX: R76.8 Other specified abnormal immunological findings in serum (principal); Z79.52 Long term (current) use of systemic steroids | CPT/HCPCS: 99212 ==

== ENCOUNTER 2020-08-19 15:07 | Emergency (ER) | payer OTHER, SELFPAY ==
--- NOTE | ~2020-08-19 | XR_ITS ---
EXAMINATION: LUMBAR SPINE AND SACRUM X-RAY CLINICAL INFORMATION: Pain post fall COMPARISON: Previous lumbar spine x-ray March 2015 TECHNIQUE: 2 views of the lumbar spine and 3 views of the sacrum and coccyx FINDINGS: Lumbar spine: Bone alignment is normal. No fracture or dislocation is seen. There is multilevel degenerative spondylosis. There is lower for spine facet arthritis. There is evidence of atherosclerotic disease. Sacrum and coccyx: Bone alignment is normal. No fracture or dislocation is seen sacroiliac joints are normal. There is a sclerotic density in the left iliac bone. This is similar to previous CT scan of the abdomen and pelvis May 2019. The sacroiliac joints are normal. There is arthritis at the hip joints. XR/XR sacrum coccyx min 2V IMPRESSION: No fracture or dislocation seen. Degenerative changes.
--- NOTE | ~2020-08-19 | XR_ITS ---
EXAMINATION: LUMBAR SPINE AND SACRUM X-RAY CLINICAL INFORMATION: Pain post fall COMPARISON: Previous lumbar spine x-ray March 2015 TECHNIQUE: 2 views of the lumbar spine and 3 views of the sacrum and coccyx FINDINGS: Lumbar spine: Bone alignment is normal. No fracture or dislocation is seen. There is multilevel degenerative spondylosis. There is lower for spine facet arthritis. There is evidence of atherosclerotic disease. Sacrum and coccyx: Bone alignment is normal. No fracture or dislocation is seen sacroiliac joints are normal. There is a sclerotic density in the left iliac bone. This is similar to previous CT scan of the abdomen and pelvis May 2019. The sacroiliac joints are normal. There is arthritis at the hip joints. XR/XR lumbar spine 2-3V IMPRESSION: No fracture or dislocation seen. Degenerative changes.
[2020-08-19 15:18] VITALS: BP 150/84; PULSE 107; RESP 18; TEMP 37.2; O2SAT 95; BMI 40.2
--- NOTE | 2020-08-19 16:04 | ED.BACK ---
HPI - Back Pain/Injury General Chief Complaint: Back Pain/Injury Stated Complaint: Mid/R Side Back Pain Time Seen by Provider: 08/19/20 16:04 Source: patient Mode of arrival: ambulatory Limitations: no limitations History of Present Illness HPI Narrative: 65 y/o female presenting with back pain for the last 1 month after she slipped and fell in her kitchen. She landed on her buttocks and back. She reports she was not evaluated at the time because she had pain medication at home. She has chronic pain from a slipped disc and has been taking that but recently ran out. She reports feeling like her right kidney exploded when she fell. She denies hematuria, dysuria, frequency or urgency. No numbness, weakness, tingling or difficulty ambulating. MD elicited complaint: back injury and fall Pertinent past history: prior back pain and recent trauma Timing: intermittent Severity: moderate Similar Symptoms Previously: Yes Quality: sharp and stabbing Location: right lower back Radiation: none Exacerbating factors: movement Relieving factors: medication Context: fall Associated symptoms: denies other symptoms Treatments prior to arrival: prescription analgesics Work related injury: No Related Data Home Medications Medication Instructions Recorded Confirmed clonazepam 1 mg tablet 1 mg PO TID PRN 02/11/20 07/03/20 prednisone 1 mg tablet 4 mg PO DAILY 06/18/20 prednisone 10 mg tablet 10 mg PO QAM 06/18/20 prednisone 5 mg tablet 5 mg PO DAILY 06/18/20 bupropion HCl 1 tab PO DAILY 07/01/20 07/03/20 naproxen 1 tab PO BEDTIME PRN 07/01/20 07/01/20 quetiapine 1 tab PO BEDTIME 07/03/20 07/03/20 chlorhexidine gluconate 0.12 % ml PO DIRECTED 07/22/20 mouthwash triamcinolone acetonide 0.1 % 1 appl TOPICAL BID PRN 07/22/20 lotion triamcinolone acetonide 0.1 % 1 TOPICAL BEDTIME 07/22/20 topical ointment Previous Rx's Medication Instructions Recorded ezetimibe 10 mg tablet 10 mg PO DAILY 30 Days #30 tab 05/30/20 phenazopyridine [Pyridium] 100 mg PO TID PRN 4 Days #12 tab 07/07/20 tramadol 50 mg PO Q6H PRN 7 Days #14 tab 07/07/20 terazosin 1 mg capsule 1 mg PO BEDTIME 90 Days #90 cap 07/22/20 omeprazole 40 mg capsule,delayed 40 mg PO DAILY #90 cap 08/06/20 release imipramine HCl 25 mg tablet 25 mg PO BEDTIME 30 Days #30 tab 08/15/20 prednisone 20 mg tablet 20 mg PO DAILY #30 tab 08/16/20 cyclobenzaprine 5 mg PO TID PRN #14 tab 08/19/20 ibuprofen 600 mg PO Q8H PRN #10 tab 08/19/20 lidocaine [Lidoderm] 1 patch TOPICAL DAILY #15 ea 08/19/20 Allergies Allergy/AdvReac Type Severity Reaction Status Date / Time Penicillins [PENICILLINS] Allergy Intermediate RASH Verified 08/19/20 15:18 Review of Systems Review of Systems: Constitutional: No Fever, No Chills Cardiovascular: No Chest Pain, No SOB Respiratory: No Cough, No Sputum Gastrointestinal: No Nausea, No Vomiting, No Diarrhea, No abdominal Pain Genitourinary: No Dysuria, No Urinary Frequency, No Hematuria Musculoskeletal: + joint pain, + Myalgias Skin: No Skin Lesions, No rash Neuro: No Weakness, No Numbness, No Dizziness, No Headache Heme/Lymph: No Bruising PMFSH Past Medical History Attestation statement: The following information was validated with the patient. Medical History KAMILA positive Anxiety Arthralgia Benign essential hypertension CAD (coronary artery disease) Chronic interstitial cystitis Depression Esophageal stricture GERD (gastroesophageal reflux disease) Insomnia Irritable bowel syndrome (IBS) Left lumbar radiculopathy Lumbar degenerative disc disease Obesity Obesity (BMI 30-39.9) Osteoarthritis Pure hypercholesterolemia Urticaria Vitamin D deficiency Surgical History History of cardiac catheterization History of colonoscopy History of nephrolithotomy with removal of calculi History of tooth extraction Status post balloon dilatation of esophageal stricture (~2005) Family History Family History Father Hypertension Mother Hypertension Diabetes CVD (cardiovascular disease) Daughter No problems noted. Family/Other FH: mental illness Social History Social History Alcohol intake: never Smoking Status: Never smoker Advance Directives: No Advance Directives Information Provided: No Physical Exam Vital Signs: Vital Signs: Last Vital Signs Temp 99.0 F 08/19/20 15:18 Pulse 107 H 08/19/20 15:18 Resp 18 08/19/20 15:18 BP 150/84 H 08/19/20 15:18 Pulse Ox 95 08/19/20 15:18 Body Mass Index 40.2 Appearance: Alert. Oriented X3. No acute distress. HEENT: normal inspection CVS: Normal heart rate and rhythm. Pulses normal. Respiratory: No respiratory distress. Abd: obese, soft, non-tender. no CVA tenderness. Back: right upper lumbar area with soft tissue tenderness. no spinal tenderness. no CVA tenderness. Skin: Skin warm and dry. Normal skin color. Normal skin turgor. No rashes. Extremities: atraumatic, no edema. Neuro: Oriented X 3. No motor deficit. No sensory deficit. Walks with steady gait, no limp. moves well. Course Course Course Narrative: 65 y/o female presenting with right lower back pain s/p fall 1 month ago. No urinary symptoms. Given trauma will check XR to r/u compression fractures. Will also get UA to assess for infection and/or blood. Reevaluation(s) Reevaluation #1: XR unremarkable and UA negative. Pain improved with Toradol. Pain is likely muscular in nature. Will d/c with NSAID, muscle relaxer and topical Lidoderm. She was encouraged to f/u with her PCP for further management. MDM - Back Pain/Injury Differential Diagnosis Differential diagnosis: Likely lumbar radiculopathy, sciatica, strain of lumbar region and pyelonephritis Medical Records Attestation: I reviewed the patient's medical records. Lab Data Attestation: I reviewed the patient's lab results. Labs: Lab Results 08/19/20 Range/Units 16:52 Urine Color YELLOW Urine Appearance CLEAR Urine pH 6.5 (5.0-8.0) Ur Specific Baudette 1.025 (1.005-1.025) Urine Protein NEG (NEG-TRACE) MG/DL Urine Glucose (UA) NEG (NEG) MG/DL Urine Ketones NEG (NEG) MG/DL Urine Blood NEG (NEG) Urine Nitrite NEG (NEG) Ur Leukocyte Esterase NEG (NEG) Critical Care Time Critical Care Time Critical Care Time: No Discharge Plan Discharge Clinical Impression: Strain of lumbar region Qualifiers: Encounter type: initial encounter Qualified Code(s): S39.012A - Strain of muscle, fascia and tendon of lower back, initial encounter Patient Disposition: Home, Self-Care Instructions: Low Back Strain (ED), Lower Back Exercises (ED) Additional Instructions: Your x-rays today were normal. Your urine test today was normal. Your pain is likely muscular. No bending, lifting or twisting. Use ice several times per day for 20 minutes at a time for the next 48 hours and then change to heat. Take medications as prescribed to help with pain and discomfort. Follow up with your Primary Care Doctor this week. If your pain worsens, if you develop new numbness, tingling, weakness, loss of function or incontinence call 911 or come back to the ER right away for evaluation. Prescriptions: New cyclobenzaprine 5 mg tablet 5 mg PO TID PRN (Reason: muscle spasm) Qty: 14 RF: 0 ibuprofen 600 mg tablet 600 mg PO Q8H PRN (Reason: pain) Qty: 10 RF: 0 lidocaine [Lidoderm] 5 % adhesive patch,medicated 1 patch topical DAILY Qty: 15 RF: 0 No Action omeprazole 40 mg capsule,delayed release(DR/EC) 40 mg PO DAILY Qty: 90 RF: 1 imipramine HCl 25 mg tablet 25 mg PO BEDTIME 30 Days Qty: 30 RF: 5 prednisone 20 mg tablet 20 mg PO DAILY Qty: 30 RF: 0 naproxen 500 mg tablet 1 tab PO BEDTIME PRN (Reason: pain) RF: 0 bupropion HCl 300 mg tablet extended release 24 hr 1 tab PO DAILY RF: 0 quetiapine 300 mg tablet 1 tab PO BEDTIME RF: 0 phenazopyridine [Pyridium] 100 mg tablet 100 mg PO TID PRN (Reason: spasms) 4 Days Qty: 12 RF: 0 tramadol 50 mg tablet 50 mg PO Q6H PRN (Reason: pain (scale score 4-6)) 7 Days Qty: 14 RF: 0 clonazepam 1 mg tablet 1 mg PO TID PRN (Reason: Anxiety) RF: 0 ezetimibe 10 mg tablet 10 mg PO DAILY 30 Days Qty: 30 RF: 3 prednisone 1 mg tablet 4 mg PO DAILY RF: 0 prednisone 5 mg tablet 5 mg PO DAILY RF: 0 prednisone 10 mg tablet 10 mg PO QAM RF: 0 triamcinolone acetonide 0.1 % lotion 1 appl topical BID PRNRF: 0 chlorhexidine gluconate 0.12 % mouthwash PO DIRECTED RF: 0 triamcinolone acetonide 0.1 % ointment 1 topical BEDTIME RF: 0 terazosin 1 mg capsule 1 mg PO BEDTIME 90 Days Qty: 90 RF: 1
[2020-08-19 17:31] LABS: Glucose Urine UA NEG (NEG); Leukocyte Esterase Urine NEG (NEG); Nitrite Urine NEG (NEG); PH 6.5 (5.0-8.0); Specific Gravity - Urine 1.025 (1.005-1.025); Urine Blood NEG (NEG); Urine Ketones NEG (NEG); Urine Protein NEG (NEG-TRACE)
[2020-08-19] MEDS: Ketorolac Tromethamine 30 MG/ML VIAL IM (17:32)
[2020-08-19 17:34] LABS: Appearance Urine CLEAR; Color Urine YELLOW
== END 2020-08-19 17:57 | disposition home or self-care (01) ==
PROVIDERS: Physician Assistant; Emergency Provider Emergency Medicine; PCP Internal Medicine
DX: S39.012A Strain of muscle, fascia and tendon of lower back, initial encounter (principal); W01.0XXA Fall on same level from slipping, tripping and stumbling without subsequent striking against object, initial encounter; Y93.89 Activity, other specified; Y92.030 Kitchen in apartment as the place of occurrence of the external cause; Y99.9 Unspecified external cause status
CPT/HCPCS: 72100; 72220; 81003; 96372; 99284; J1885

== ENCOUNTER 2020-09-11 13:52 | Emergency (ER) | payer OTHER, SELFPAY ==
[2020-09-11 13:55] VITALS: BP 171/87; PULSE 102; RESP 18; TEMP 36.1; O2SAT 100; BMI 43.6
== END 2020-09-11 16:13 | disposition left against medical advice (07) ==
PROVIDERS: Emergency Provider Emergency Medicine; PCP Internal Medicine
DX: M62.81 Muscle weakness (generalized) (principal)
CPT/HCPCS: 99282

== ENCOUNTER 2020-10-01 16:14 | Outpatient (REF) | payer MEDICARE, SELFPAY ==
--- NOTE | ~2020-10-01 | XR_ITS ---
EXAMINATION: XR CHEST CLINICAL INFORMATION: Shortness of breath COMPARISON: None TECHNIQUE: 2 views of the chest were obtained. FINDINGS: The cardiac and mediastinal contours are normal. The lungs are clear. There is no pleural effusion or pneumothorax. There are degenerative changes of the spine and curvature of the midthoracic spine to the right. XR/XR chest 2V IMPRESSION: No evidence for acute disease in the chest.
[2020-10-01 16:44] LABS: MANUAL DIFF FLAG NO
[2020-10-01 16:51] LABS: Basophils Percent Auto 0.3 % (0-2); Eosinophils Absolute Auto 0.1 X10*3/uL (0.0-0.4); Eosinophils Percent Auto 0.8 % (0-4); Hematocrit 36.3 % (37-47); Hemoglobin 11.4 g/dl (12.0-16.0); Imm Gran Abs Auto 0.37 X10*3/uL (0.00-0.03); Lymphocytes Absolute Auto 1.6 X10*3/uL (1.2-4.9); Lymphocytes Percent Auto 12.8 % (20-40); Mean Corpuscular HGB Conc 31.4 g/dl (31.0-35.0); Mean Corpuscular Hemoglobin 27.8 pg (27.0-33.0); Mean Corpuscular Volume 88.5 fL (80-98); Mean Platelet Volume 10.9 fL (9.4-12.3); Monocytes Absolute Auto 0.5 X10*3/uL (0.1-1.2); Monocytes Percent Auto 4.1 % (2-11); Neutrophils Absolute Auto 9.7 X10*3/uL (2.0-8.3); Platelet Count 277 X10*3/uL (160-400); Red Cell Distribution Width 14.9 % (11.0-16.0); White Blood Count 12.2 X10*3/uL (4.8-10.8)
[2020-10-01 17:04] LABS: D Dimer 311 NG/ML; Glucose Urine UA NEG (NEG); Leukocyte Esterase Urine NEG (NEG); Nitrite Urine NEG (NEG); PH 6.5 (5.0-8.0); Specific Gravity - Urine 1.025 (1.005-1.025); Urine Blood NEG (NEG); Urine Ketones NEG (NEG); Urine Protein TRACE MG/DL (NEG-TRACE)
[2020-10-01 17:06] LABS: Appearance Urine CLEAR; Color Urine YELLOW
[2020-10-01 17:26] LABS: Alanine Aminotransferase 20 U/L (0-31); Albumin Level 4.5 g/dL (3.5-5.0); Alkaline Phosphatase 64 U/L (39-117); Anion Gap 13 (12-20); Aspartate Amino Transferase 16 U/L (5-31); B Type Natriuretic Peptide 18 pg/mL (<100); Bilirubin Total 0.4 mg/dL (0.0-1.0); Blood Urea Nitrogen 19 mg/dL (9-16); Calcium 9.9 mg/dL (8.4-10.2); Carbon Dioxide 30 mmol/L (22-29); Chloride 105 mmol/L (96-108); Estimated Glomerular Filt Rate 53; Glucose Random 90 mg/dL (60-115); Potassium 4.3 mmol/L (3.3-5.1); Sodium 144 mmol/L (135-145); Total Protein 7.1 g/dL (6.5-8.0)
[2020-10-01 17:33] LABS: Erythrocyte Sedimentation Rate 28 MM/HR (0-20)
[2020-10-01 17:48] LABS: TSH reflex Free T4 0.29 uIU/mL (0.32-4.0)
[2020-10-01 18:28] LABS: Free T4 (Free Thyroxine) 0.89 ng/dL (0.71-1.85)
== END 2020-10-01 16:15 | disposition home or self-care (01) ==
LOC: HO.XRAY 16:14
PROVIDERS: PCP Internal Medicine; Visit Provider Internal Medicine
DX: R06.02 Shortness of breath (principal); R53.83 Other fatigue
CPT/HCPCS: 36415; 71046; 80053; 81003; 83880; 84439; 84443; 85025; 85379; 85652

== ENCOUNTER → 2020-10-31 14:59 | Outpatient (BNVA) | payer MEDICARE, SELFPAY | PROVIDERS: PCP Internal Medicine; Visit Provider Hospitalist | DX: J45.40 Moderate persistent asthma, uncomplicated (principal); R06.02 Shortness of breath; L50.9 Urticaria, unspecified | CPT/HCPCS: 99202 ==

== ENCOUNTER 2020-11-28 07:56 | Outpatient (REF) | payer MEDICARE, SELFPAY ==
[2020-11-28 08:35] LABS: MANUAL DIFF FLAG NO
[2020-11-28 08:42] LABS: Basophils Absolute Auto 0.1 X10*3/uL (0.0-0.2); Basophils Percent Auto 0.6 % (0-2); Eosinophils Absolute Auto 0.4 X10*3/uL (0.0-0.4); Eosinophils Percent Auto 4.5 % (0-4); Hematocrit 35.9 % (37-47); Hemoglobin 11.3 g/dl (12.0-16.0); Imm Gran Abs Auto 0.11 X10*3/uL (0.00-0.03); Imm Gran Pct Auto 1.2 % (0.0-0.4); Lymphocytes Absolute Auto 2.9 X10*3/uL (1.2-4.9); Lymphocytes Percent Auto 32.7 % (20-40); Mean Corpuscular HGB Conc 31.5 g/dl (31.0-35.0); Mean Corpuscular Hemoglobin 27.4 pg (27.0-33.0); Mean Corpuscular Volume 87.1 fL (80-98); Mean Platelet Volume 11.2 fL (9.4-12.3); Monocytes Absolute Auto 0.4 X10*3/uL (0.1-1.2); Monocytes Percent Auto 4.6 % (2-11); Neutrophils Absolute Auto 5.1 X10*3/uL (2.0-8.3); Neutrophils Percent Auto 56.4 % (45-73); Platelet Count 226 X10*3/uL (160-400); Red Blood Count 4.12 X10*6/uL (4.20-5.50); Red Cell Distribution Width 14.1 % (11.0-16.0)
[2020-11-28 09:11] LABS: Glucose Urine UA NEG (NEG); Leukocyte Esterase Urine NEG (NEG); Nitrite Urine NEG (NEG); PH 6.5 (5.0-8.0); Urine Blood NEG (NEG); Urine Ketones NEG (NEG); Urine Protein NEG (NEG-TRACE)
[2020-11-28 09:21] LABS: Erythrocyte Sedimentation Rate 28 MM/HR (0-20)
[2020-11-28 09:26] LABS: TSH reflex Free T4 3.38 uIU/mL (0.32-4.0); Vitamin D 25-OH Total 16.4 ng/mL (>30)
[2020-11-28 09:29] LABS: Alanine Aminotransferase 16 U/L (0-31); Albumin Level 4.1 g/dL (3.5-5.0); Alkaline Phosphatase 63 U/L (39-117); Anion Gap 12 (12-20); Aspartate Amino Transferase 13 U/L (5-31); Bilirubin Total 0.4 mg/dL (0.0-1.0); Blood Urea Nitrogen 15 mg/dL (9-16); Calcium 9.3 mg/dL (8.4-10.2); Carbon Dioxide 29 mmol/L (22-29); Chloride 107 mmol/L (96-108); Cholesterol 254 mg/dL; Estimated Glomerular Filt Rate 60; Glucose Fasting 88 mg/dL (60-99); HDL Cholesterol 50 mg/dL; LDL Cholesterol Calculated 145 mg/dl; Potassium 3.4 mmol/L (3.3-5.1); Sodium 145 mmol/L (135-145); Total Protein 6.6 g/dL (6.5-8.0); Triglycerides 298 mg/dL
[2020-11-28 09:34] LABS: Appearance Urine CLEAR; Color Urine YELLOW
== END 2020-11-28 07:57 | disposition home or self-care (01) ==
LOC: HO.LAB 07:56
PROVIDERS: PCP Internal Medicine; Visit Provider Internal Medicine
DX: E78.00 Pure hypercholesterolemia, unspecified (principal); I10 Essential (primary) hypertension; I25.10 Atherosclerotic heart disease of native coronary artery without angina pectoris; K21.9 Gastro-esophageal reflux disease without esophagitis; K58.9 Irritable bowel syndrome, unspecified; L50.9 Urticaria, unspecified; M25.50 Pain in unspecified joint; M19.91 Primary osteoarthritis, unspecified site; E55.9 Vitamin D deficiency, unspecified; E66.9 Obesity, unspecified
CPT/HCPCS: 36415; 80053; 80061; 81003; 82306; 84443; 85025; 85652

== ENCOUNTER 2020-12-19 12:29 | Outpatient (REF) | payer MEDICARE, SELFPAY ==
--- NOTE | 2020-12-19 14:35 | PFT_ITS ---
Forced vital capacity is markedly decreased. FEV1 slightly decreased. [id number] is normal and MVV slightly decreased. Post bronchodilator therapy, there is no significant change. Total lung capacity and residual volume are moderately decreased. Diffusion capacity only slightly decreased. CONCLUSION: Mild to moderate degree of restrictive pulmonary disorder. No significant obstructive airway disorder. Clinical correlation recommended. MD GERRY Calle/AILEEN / [id number]
== END 2020-12-19 12:30 | disposition home or self-care (01) ==
LOC: HO.RESP 12:29
PROVIDERS: PCP Internal Medicine; Visit Provider Hospitalist
DX: R06.02 Shortness of breath (principal)
CPT/HCPCS: 94060; 94727; 94729

== ENCOUNTER → 2020-12-25 08:36 | Outpatient (BNVA) | payer MEDICARE, SELFPAY | PROVIDERS: PCP Internal Medicine; Visit Provider Family Medicine Adult Medicine | DX: M54.16 Radiculopathy, lumbar region (principal) | CPT/HCPCS: 99202 ==

== ENCOUNTER → 2020-12-26 13:43 | Outpatient (BNVA) | payer MEDICARE, SELFPAY | PROVIDERS: PCP Internal Medicine; Visit Provider Hospitalist | DX: R06.02 Shortness of breath (principal); J45.40 Moderate persistent asthma, uncomplicated; G47.33 Obstructive sleep apnea (adult) (pediatric); L50.9 Urticaria, unspecified | CPT/HCPCS: 99212 ==

== ENCOUNTER 2020-12-30 14:00 | Outpatient (RCR) | payer MEDICARE, SELFPAY ==
--- NOTE | 2020-12-23 14:59 | MHC.PT.EP ---
[facility] [place] [facility] [place] [facility] [place] Office [address] [phone] F: [phone] F: [phone] F: [phone] F: [phone] Physical Therapy Plan of Care Date of Evaluation: Date of Surgery: N/A Diagnosis: Strain of the Muscle, Fascia, and Tendon Lower Back Assessment: Pt is a 65 year old woman who presents to therapy with a strain of the muscle, fascia and tendon of the low back. Self reported limitations include difficulty cleaning her house, standing to do the dishes, stairs and walking long distances. Upon examination, impairments include limited lumbar ROM, tightness in the paraspinals, posture, weakness in the hip musculature and minimal pelvic rotation/increased weight shift to the R side during gait. Potential barriers to therapy include pt's attendance and overall general health. Pt shows fair rehab potential 2* to her age and multiple comorbidity. Pt will benefit from skilled PT to increase lumbar ROM, hip strength, postural awareness, overall quality of life and decrease pain. Pt will be seen for 2x/week for 4 weeks and will be reassessed at 4 weeks to see if further treatment is necessary. Frequency and Duration: The patient will be seen 2x/week for 4 weeks Short Term Goals: 1. Pt will be I in HEP in 2 weeks in order to maximize benefits of therapy. 2. Pt will verbalize understanding of importance of exercise in 2 weeks order to increase self management of symptoms. Snf Goals: 1. Pt will be able to stand for >30 min with <3/10 pain in 4 weeks in order to be able to complete chores around the house. 2. Pt will decrease score on the Modified Oswestry Low Back Pain Disability Questionnaire from 76% to <63% in 4 weeks to show an improvement in function. Treatment Plan: Modalities to reduce pain, spasms and effusion. Manual therapy to restore motion and function. Therapeutic exercise to improve strength and flexibility. Neuromuscular re-education for posture and balance. Therapeutic activities to return to functional activities of daily living. Electronically signed by: Ángela Sullivan PT, DPT Please sign and return to therapist. Thank you for your referral.
== END 2021-02-09 11:36 | disposition home or self-care (01) ==
LOC: HO.PT 14:00
PROVIDERS: PCP Internal Medicine; Visit Provider Internal Medicine
DX: S39.012D Strain of muscle, fascia and tendon of lower back, subsequent encounter (principal); Z91.81 History of falling
CPT/HCPCS: 97110; 97162; 97530

== ENCOUNTER → 2021-01-09 08:56 | Outpatient (BNVA) | payer MEDICARE, SELFPAY | PROVIDERS: PCP Internal Medicine; Visit Provider Nurse Practitioner Family | DX: M47.27 Other spondylosis with radiculopathy, lumbosacral region (principal) | CPT/HCPCS: 99212 ==

== ENCOUNTER → 2021-01-19 12:52 | Outpatient (REF) | payer MEDICARE, SELFPAY | LOC: HO.SL 12:52 | PROVIDERS: PCP Internal Medicine; Visit Provider Hospitalist | DX: Z13.89 Encounter for screening for other disorder (principal) ==

== ENCOUNTER → 2021-01-30 15:31 | Outpatient (BNVA) | payer OTHER, SELFPAY | PROVIDERS: Visit Provider Nurse Practitioner Family | DX: M47.27 Other spondylosis with radiculopathy, lumbosacral region (principal) | CPT/HCPCS: 99212 ==

== ENCOUNTER → 2021-02-12 10:57 | Outpatient (BNVA) | payer MEDICARE, SELFPAY | PROVIDERS: PCP Internal Medicine | DX: R35.1 Nocturia (principal); N20.0 Calculus of kidney; N30.10 Interstitial cystitis (chronic) without hematuria | CPT/HCPCS: 51798; 99212 ==

== ENCOUNTER 2021-02-16 13:14 | Emergency (ER) | payer MEDICARE, SELFPAY ==
[2021-02-16 14:25] VITALS: BP 178/79; PULSE 89; RESP 18; TEMP 36.2; O2SAT 96; BMI 43.0
[2021-02-16 14:58] LABS: Appearance Urine CLEAR; Color Urine YELLOW; Glucose Urine UA NEG (NEG); Leukocyte Esterase Urine NEG (NEG); Nitrite Urine NEG (NEG); Specific Gravity - Urine 1.015 (1.005-1.025); Urine Blood NEG (NEG); Urine Ketones NEG (NEG); Urine Protein NEG (NEG-TRACE)
== END 2021-02-16 15:44 | disposition left against medical advice (07) ==
PROVIDERS: Emergency Provider Emergency Medicine; PCP Internal Medicine
DX: R10.9 Unspecified abdominal pain (principal)
CPT/HCPCS: 81003; 99283

== ENCOUNTER → 2021-02-17 14:02 | Outpatient (BNVA) | payer MEDICARE, SELFPAY | PROVIDERS: Visit Provider Family Medicine Adult Medicine | DX: M54.16 Radiculopathy, lumbar region (principal) | CPT/HCPCS: 99212 ==

== ENCOUNTER → 2021-03-03 14:13 | Outpatient (BNVA) | payer MEDICARE, SELFPAY | PROVIDERS: PCP Internal Medicine; Visit Provider Family Medicine Adult Medicine | DX: Z51.81 Encounter for therapeutic drug level monitoring (principal); M54.16 Radiculopathy, lumbar region | CPT/HCPCS: 99212 ==

== ENCOUNTER 2021-03-10 10:34 | Outpatient (REF) | payer MEDICARE, SELFPAY ==
[2021-03-10 10:54] LABS: MANUAL DIFF FLAG NO
[2021-03-10 11:18] LABS: Basophils Absolute Auto 0.1 X10*3/uL (0.0-0.2); Basophils Percent Auto 0.9 % (0-2); Eosinophils Absolute Auto 0.6 X10*3/uL (0.0-0.4); Hematocrit 38.3 % (37.0-47.0); Imm Gran Abs Auto 0.04 X10*3/uL (0.00-0.03); Imm Gran Pct Auto 0.5 % (0.0-0.4); Lymphocytes Absolute Auto 1.9 X10*3/uL (1.2-4.9); Mean Corpuscular HGB Conc 31.3 g/dl (31.0-35.0); Mean Corpuscular Hemoglobin 26.7 pg (27.0-33.0); Mean Corpuscular Volume 85.1 fL (80.0-98.0); Mean Platelet Volume 11.2 fL (9.4-12.3); Monocytes Absolute Auto 0.4 X10*3/uL (0.1-1.2); Monocytes Percent Auto 5.3 % (2-11); Neutrophils Absolute Auto 4.4 x10*3/uL (2.0-8.3); Neutrophils Percent Auto 59.3 % (45-73); Platelet Count 246 X10*3/uL (160-400); Red Cell Distribution Width 14.5 % (11.0-16.0); White Blood Count 7.4 X10*3/uL (4.8-10.8)
[2021-03-10 11:45] LABS: Appearance Urine HAZY; Color Urine YELLOW; Glucose Urine UA NEG (NEG); Leukocyte Esterase Urine NEG (NEG); Nitrite Urine NEG (NEG); Specific Gravity - Urine 1.025 (1.005-1.025); Urine Blood NEG (NEG); Urine Ketones NEG (NEG); Urine Protein TRACE MG/DL (NEG-TRACE)
[2021-03-10 12:03] LABS: Erythrocyte Sedimentation Rate 32 MM/HR (0-20)
[2021-03-10 12:21] LABS: Alanine Aminotransferase 18 U/L (0-31); Alkaline Phosphatase 70 U/L (39-117); Anion Gap 15 (12-20); Aspartate Amino Transferase 18 U/L (5-31); Bilirubin Total 0.4 mg/dL (0.0-1.0); Blood Urea Nitrogen 10 mg/dL (9-16); Calcium 9.4 mg/dL (8.4-10.2); Carbon Dioxide 27 mmol/L (22-29); Chloride 107 mmol/L (96-108); Cholesterol 226 mg/dL; Estimated Glomerular Filt Rate > 60; Glucose Fasting 101 mg/dL (60-99); HDL Cholesterol 42 mg/dL; LDL Cholesterol Calculated 122 mg/dl; Potassium 3.6 mmol/L (3.3-5.1); Sodium 145 mmol/L (135-145); TSH reflex Free T4 2.79 uIU/mL (0.32-4.0); Total Protein 6.7 g/dL (6.5-8.0); Triglycerides 312 mg/dL; Vitamin D 25-OH Total 43.9 ng/mL (>30)
== END 2021-03-10 10:35 | disposition home or self-care (01) ==
LOC: HO.LAB 10:34
PROVIDERS: PCP Internal Medicine; Visit Provider Internal Medicine
DX: I10 Essential (primary) hypertension (principal); M19.91 Primary osteoarthritis, unspecified site; M25.50 Pain in unspecified joint; M51.36 Other intervertebral disc degeneration, lumbar region; E55.9 Vitamin D deficiency, unspecified; E78.00 Pure hypercholesterolemia, unspecified
CPT/HCPCS: 36415; 80053; 80061; 81003; 82306; 84443; 85025; 85652

== ENCOUNTER → 2021-03-26 13:10 | Outpatient (BNVA) | payer MEDICARE, SELFPAY | PROVIDERS: PCP Internal Medicine; Visit Provider Hospitalist | DX: G47.33 Obstructive sleep apnea (adult) (pediatric) (principal); J45.40 Moderate persistent asthma, uncomplicated; R06.02 Shortness of breath; L50.9 Urticaria, unspecified | CPT/HCPCS: 99212 ==

== ENCOUNTER → 2021-04-02 14:54 | Outpatient (BNVA) | payer MEDICARE, SELFPAY | PROVIDERS: PCP Internal Medicine; Visit Provider Nurse Practitioner Family | DX: Z51.81 Encounter for therapeutic drug level monitoring (principal); F11.20 Opioid dependence, uncomplicated | CPT/HCPCS: 99211 ==

== ENCOUNTER 2021-04-13 12:17 | Outpatient (REF) | payer MEDICARE, SELFPAY ==
--- NOTE | ~2021-04-13 | XR_ITS ---
EXAMINATION: XR KNEE, LEFT XR KNEE, RIGHT XR KNEE, STANDING BILATERAL CLINICAL INFORMATION: Pain. COMPARISON: 03/15/2018 TECHNIQUE: AP standing views of both knees +2 additional views of both knees. FINDINGS: RIGHT KNEE: There is shre-xr-ibuwwguu cartilage space loss in the medial tibiofemoral compartment with bulky marginal osteophytes on the medial femoral head. There is moderate cartilage space loss in the patellofemoral compartment with bulky marginal osteophyte formation in the patellofemoral compartment with underlying subchondral sclerosis. Suspect a small joint effusion. Patellar tendon enthesophyte. Soft tissues unremarkable. LEFT KNEE: Moderate medial compartment cartilage space loss and moderate cartilage space loss in the patellofemoral compartment. Bulky marginal osteophyte formation most prominent in the medial compartment and patellofemoral compartments. No joint effusion. Patellar tendon enthesophyte. XR/XR knee standing BI IMPRESSION: Moderate degenerative change in both knees in the medial tibiofemoral compartments and patellofemoral compartments.
--- NOTE | ~2021-04-13 | XR_ITS ---
EXAMINATION: XR KNEE, LEFT XR KNEE, RIGHT XR KNEE, STANDING BILATERAL CLINICAL INFORMATION: Pain. COMPARISON: 03/15/2018 TECHNIQUE: AP standing views of both knees +2 additional views of both knees. FINDINGS: RIGHT KNEE: There is vrbn-cg-xrnyjruv cartilage space loss in the medial tibiofemoral compartment with bulky marginal osteophytes on the medial femoral head. There is moderate cartilage space loss in the patellofemoral compartment with bulky marginal osteophyte formation in the patellofemoral compartment with underlying subchondral sclerosis. Suspect a small joint effusion. Patellar tendon enthesophyte. Soft tissues unremarkable. LEFT KNEE: Moderate medial compartment cartilage space loss and moderate cartilage space loss in the patellofemoral compartment. Bulky marginal osteophyte formation most prominent in the medial compartment and patellofemoral compartments. No joint effusion. Patellar tendon enthesophyte. XR/XR knee LT 2V IMPRESSION: Moderate degenerative change in both knees in the medial tibiofemoral compartments and patellofemoral compartments.
--- NOTE | ~2021-04-13 | XR_ITS ---
EXAMINATION: XR KNEE, LEFT XR KNEE, RIGHT XR KNEE, STANDING BILATERAL CLINICAL INFORMATION: Pain. COMPARISON: 03/15/2018 TECHNIQUE: AP standing views of both knees +2 additional views of both knees. FINDINGS: RIGHT KNEE: There is gsyp-cj-tsaxwwnl cartilage space loss in the medial tibiofemoral compartment with bulky marginal osteophytes on the medial femoral head. There is moderate cartilage space loss in the patellofemoral compartment with bulky marginal osteophyte formation in the patellofemoral compartment with underlying subchondral sclerosis. Suspect a small joint effusion. Patellar tendon enthesophyte. Soft tissues unremarkable. LEFT KNEE: Moderate medial compartment cartilage space loss and moderate cartilage space loss in the patellofemoral compartment. Bulky marginal osteophyte formation most prominent in the medial compartment and patellofemoral compartments. No joint effusion. Patellar tendon enthesophyte. XR/XR knee RT 2V IMPRESSION: Moderate degenerative change in both knees in the medial tibiofemoral compartments and patellofemoral compartments.
== END 2021-04-13 12:18 | disposition home or self-care (01) ==
LOC: HO.HOSX 12:17
PROVIDERS: Visit Provider Orthopaedic Surgery
DX: M17.0 Bilateral primary osteoarthritis of knee (principal)
CPT/HCPCS: 20610; 73560; 73565; 99212; J1100

== ENCOUNTER → 2021-05-04 13:23 | Outpatient (BNVA) | payer MEDICARE, SELFPAY | PROVIDERS: PCP Internal Medicine; Visit Provider Internal Medicine | DX: Z51.81 Encounter for therapeutic drug level monitoring (principal); M47.27 Other spondylosis with radiculopathy, lumbosacral region; F41.9 Anxiety disorder, unspecified; Z79.891 Long term (current) use of opiate analgesic | CPT/HCPCS: 99212 ==

== ENCOUNTER 2021-05-26 14:00 | Outpatient (REF) | payer MEDICARE, SELFPAY ==
[2021-05-26 14:14] LABS: MANUAL DIFF FLAG NO
[2021-05-26 14:42] LABS: Basophils Absolute Auto 0.1 X10*3/uL (0.0-0.2); Basophils Percent Auto 0.8 % (0-2); Eosinophils Absolute Auto 0.6 X10*3/uL (0.0-0.4); Eosinophils Percent Auto 7.8 % (0-4); Hematocrit 36.7 % (37.0-47.0); Hemoglobin 11.5 g/dl (12.0-16.0); Imm Gran Abs Auto 0.03 X10*3/uL (0.00-0.03); Imm Gran Pct Auto 0.4 % (0.0-0.4); Lymphocytes Absolute Auto 1.8 X10*3/uL (1.2-4.9); Lymphocytes Percent Auto 24.5 % (20-40); Mean Corpuscular HGB Conc 31.3 g/dl (31.0-35.0); Mean Corpuscular Hemoglobin 25.6 pg (27.0-33.0); Mean Corpuscular Volume 81.6 fL (80.0-98.0); Mean Platelet Volume 11.8 fL (9.4-12.3); Monocytes Absolute Auto 0.4 X10*3/uL (0.1-1.2); Neutrophils Absolute Auto 4.4 x10*3/uL (2.0-8.3); Neutrophils Percent Auto 60.5 % (45-73); Platelet Count 240 X10*3/uL (160-400); Red Cell Distribution Width 14.4 % (11.0-16.0); White Blood Count 7.2 X10*3/uL (4.8-10.8)
[2021-05-26 15:13] LABS: B Type Natriuretic Peptide 39 pg/mL (<100)
[2021-05-26 15:16] LABS: Alanine Aminotransferase 9 U/L (0-31); Albumin Level 4.3 g/dL (3.5-5.0); Alkaline Phosphatase 83 U/L (39-117); Anion Gap 12 (12-20); Aspartate Amino Transferase 16 U/L (5-31); Bilirubin Total 0.4 mg/dL (0.0-1.0); Blood Urea Nitrogen 12 mg/dL (9-16); C Reactive Protein 0.43 mg/dL (< or = 0.50); Carbon Dioxide 27 mmol/L (22-29); Chloride 108 mmol/L (96-108); Estimated Glomerular Filt Rate > 60; Glucose Random 93 mg/dL (60-115); Potassium 4.1 mmol/L (3.3-5.1); Rheumatoid Factor < 15.0 IU/mL (<15.0); Sodium 143 mmol/L (135-145)
[2021-05-26 15:31] LABS: TSH reflex Free T4 1.42 uIU/mL (0.32-4.0)
[2021-05-26 15:35] LABS: Erythrocyte Sedimentation Rate 30 MM/HR (0-20)
== END 2021-05-26 14:01 | disposition home or self-care (01) ==
LOC: HO.LAB 14:00
PROVIDERS: PCP Internal Medicine; Visit Provider Internal Medicine
DX: R60.9 Edema, unspecified (principal); M25.50 Pain in unspecified joint
CPT/HCPCS: 36415; 80053; 82550; 83880; 84443; 85025; 85652; 86140; 86431

== ENCOUNTER → 2021-06-01 13:08 | Outpatient (BNVA) | payer MEDICARE, SELFPAY | PROVIDERS: PCP Internal Medicine; Visit Provider Internal Medicine | DX: M17.0 Bilateral primary osteoarthritis of knee (principal); M47.27 Other spondylosis with radiculopathy, lumbosacral region; Z79.891 Long term (current) use of opiate analgesic | CPT/HCPCS: 99212 ==

== ENCOUNTER 2021-06-17 06:05 | Outpatient (REF) | payer MEDICARE, SELFPAY ==
--- NOTE | ~2021-06-17 | FL_ITS ---
EXAMINATION: XR FLUOROSCOPY WITH IMAGES CLINICAL INFORMATION: Spondylosis with radiculopathy. COMPARISON: None. TECHNIQUE: Fluoroscopy performed by Dr. Janiya Cintron Fluoroscopy time: 0.7 minutes DAP: 4.51 Gy-cm2 Images: 4 FINDINGS: 4 images demonstrate needle placement for what appears to be foraminal epidural injections at the L4 and L5 levels bilaterally. FL/FL guidance in treatment room IMPRESSION: Fluoroscopy and spot films provided for pain management procedure. Please see the full procedure note from Dr. Janiya Cintron for details.
== END 2021-06-17 06:06 | disposition home or self-care (01) ==
LOC: HO.RADIR 06:05
PROVIDERS: Visit Provider Internal Medicine
DX: M47.816 Spondylosis without myelopathy or radiculopathy, lumbar region (principal); I10 Essential (primary) hypertension; E78.00 Pure hypercholesterolemia, unspecified; Z88.0 Allergy status to penicillin; E55.9 Vitamin D deficiency, unspecified; Z98.890 Other specified postprocedural states; M54.50 Low back pain, unspecified
CPT/HCPCS: 64493; 64494; Q9967

== ENCOUNTER → 2021-06-19 11:55 | Outpatient (BNVA) | payer MEDICARE, SELFPAY | PROVIDERS: PCP Internal Medicine; Visit Provider Internal Medicine | DX: M47.27 Other spondylosis with radiculopathy, lumbosacral region (principal); Z79.891 Long term (current) use of opiate analgesic | CPT/HCPCS: 99212 ==

== ENCOUNTER → 2021-06-22 12:20 | Outpatient (BNVA) | payer MEDICARE, SELFPAY | PROVIDERS: PCP Internal Medicine; Visit Provider Orthopaedic Surgery | DX: M17.0 Bilateral primary osteoarthritis of knee (principal); M51.36 Other intervertebral disc degeneration, lumbar region; R76.8 Other specified abnormal immunological findings in serum; Z79.891 Long term (current) use of opiate analgesic | CPT/HCPCS: 99212 ==

== ENCOUNTER 2021-06-25 10:15 | Outpatient (REF) | payer MEDICARE, SELFPAY ==
[2021-06-25 10:31] LABS: MANUAL DIFF FLAG NO
[2021-06-25 11:07] LABS: Basophils Absolute Auto 0.1 X10*3/uL (0.0-0.2); Basophils Percent Auto 0.8 % (0-2); Eosinophils Absolute Auto 0.6 X10*3/uL (0.0-0.4); Eosinophils Percent Auto 9.4 % (0-4); Hematocrit 39.6 % (37.0-47.0); Imm Gran Abs Auto 0.02 X10*3/uL (0.00-0.03); Imm Gran Pct Auto 0.3 % (0.0-0.4); Lymphocytes Absolute Auto 1.6 X10*3/uL (1.2-4.9); Lymphocytes Percent Auto 24.6 % (20-40); Mean Corpuscular HGB Conc 30.3 g/dl (31.0-35.0); Mean Corpuscular Volume 82.5 fL (80.0-98.0); Mean Platelet Volume 12.4 fL (9.4-12.3); Monocytes Absolute Auto 0.4 X10*3/uL (0.1-1.2); Monocytes Percent Auto 5.8 % (2-11); Neutrophils Absolute Auto 3.8 x10*3/uL (2.0-8.3); Neutrophils Percent Auto 59.1 % (45-73); Platelet Count 250 X10*3/uL (160-400); Red Cell Distribution Width 15.1 % (11.0-16.0); White Blood Count 6.4 X10*3/uL (4.8-10.8)
[2021-06-25 11:38] LABS: Alanine Aminotransferase 10 U/L (0-31); Albumin Level 4.3 g/dL (3.5-5.0); Alkaline Phosphatase 90 U/L (39-117); Anion Gap 12 (12-20); Aspartate Amino Transferase 13 U/L (5-31); Bilirubin Total 0.4 mg/dL (0.0-1.0); Blood Urea Nitrogen 14 mg/dL (9-16); Carbon Dioxide 29 mmol/L (22-29); Chloride 105 mmol/L (96-108); Cholesterol 223 mg/dL; Estimated Glomerular Filt Rate > 60; Glucose Fasting 100 mg/dL (60-99); HDL Cholesterol 38 mg/dL; LDL Cholesterol Calculated 135 mg/dl; Potassium 4.4 mmol/L (3.3-5.1); Sodium 142 mmol/L (135-145); Total Protein 7.1 g/dL (6.5-8.0); Triglycerides 253 mg/dL
[2021-06-25 11:53] LABS: TSH reflex Free T4 2.22 uIU/mL (0.32-4.0); Vitamin D 25-OH Total 36.6 ng/mL (>30)
[2021-06-25 12:01] LABS: Appearance Urine HAZY; Color Urine YELLOW; Glucose Urine UA NEG (NEG); Leukocyte Esterase Urine NEG (NEG); Nitrite Urine NEG (NEG); Specific Gravity - Urine 1.025 (1.005-1.025); UACC Culture Trigger NO; Urine Blood TRACE (NEG); Urine Ketones NEG (NEG); Urine Protein TRACE MG/DL (NEG-TRACE)
[2021-06-25 12:22] LABS: Mucus Urine 1+ /LPF; Squamous Epithelial Cell Urine 2+ /LPF
[2021-06-25 12:23] LABS: Bacteria Urine 1+ /LPF; WBC Urine 0-2 /HPF (0-4)
== END 2021-06-25 10:16 | disposition home or self-care (01) ==
LOC: HO.LAB 10:15
PROVIDERS: PCP Internal Medicine; Visit Provider Internal Medicine
DX: E78.00 Pure hypercholesterolemia, unspecified (principal); E55.9 Vitamin D deficiency, unspecified; I10 Essential (primary) hypertension
CPT/HCPCS: 36415; 80053; 80061; 81001; 81003; 82306; 84443; 85025

== ENCOUNTER → 2021-06-30 13:48 | Outpatient (BNVA) | payer MEDICARE, SELFPAY | PROVIDERS: PCP Internal Medicine; Visit Provider Internal Medicine | DX: Z13.89 Encounter for screening for other disorder (principal) ==

== ENCOUNTER 2021-07-06 14:44 | Emergency (ER) | payer MEDICARE, SELFPAY ==
[2021-07-06 15:38] VITALS: BP 169/81; PULSE 83; RESP 16; TEMP 36.5; O2SAT 97; BMI 39.4
[2021-07-06 18:17] LABS: MANUAL DIFF FLAG NO
[2021-07-06 18:21] LABS: Appearance Urine HAZY; Color Urine YELLOW; Glucose Urine UA NEG (NEG); Leukocyte Esterase Urine NEG (NEG); Nitrite Urine NEG (NEG); PH 6.5 (5.0-8.0); UACC Culture Trigger NO; Urine Blood 2+ (NEG); Urine Ketones NEG (NEG); Urine Protein TRACE MG/DL (NEG-TRACE)
[2021-07-06 18:31] LABS: Anion Gap 14 (12-20); Blood Urea Nitrogen 12 mg/dL (9-16); Calcium 10.3 mg/dL (8.4-10.2); Calcium Oxalate Crystals Urine 3+ /LPF; Carbon Dioxide 27 mmol/L (22-29); Chloride 105 mmol/L (96-108); Creatinine Clr Calc Pharmacy 63.3; Estimated Glomerular Filt Rate > 60; Glucose Random 95 mg/dL (60-115); Mucus Urine 2+ /LPF; Potassium 4.1 mmol/L (3.3-5.1); Sodium 142 mmol/L (135-145); Squamous Epithelial Cell Urine 1+ /LPF; WBC Urine 0 /HPF (0-4)
[2021-07-06 18:35] LABS: Basophils Absolute Auto 0.1 X10*3/uL (0.0-0.2); Basophils Percent Auto 0.6 % (0-2); Eosinophils Absolute Auto 0.5 X10*3/uL (0.0-0.4); Hematocrit 40.6 % (37.0-47.0); Hemoglobin 12.6 g/dl (12.0-16.0); Imm Gran Abs Auto 0.02 X10*3/uL (0.00-0.03); Imm Gran Pct Auto 0.2 % (0.0-0.4); Lymphocytes Absolute Auto 2.1 X10*3/uL (1.2-4.9); Lymphocytes Percent Auto 22.8 % (20-40); Mean Corpuscular Hemoglobin 25.3 pg (27.0-33.0); Mean Corpuscular Volume 81.5 fL (80.0-98.0); Mean Platelet Volume 11.9 fL (9.4-12.3); Monocytes Absolute Auto 0.5 X10*3/uL (0.1-1.2); Monocytes Percent Auto 5.1 % (2-11); Neutrophils Absolute Auto 6.2 x10*3/uL (2.0-8.3); Neutrophils Percent Auto 66.3 % (45-73); Platelet Count 267 X10*3/uL (160-400); Red Blood Count 4.98 X10*6/uL (4.20-5.50); Red Cell Distribution Width 15.2 % (11.0-16.0); White Blood Count 9.4 X10*3/uL (4.8-10.8)
[2021-07-06 21:23] VITALS: BP 146/59; PULSE 86; RESP 18; TEMP 37.6; O2SAT 96
--- NOTE | 2021-07-06 21:29 | PC.NURSE ---
pt a&ox3, vss, hx of kidney stones, pt reports similar symptoms since tuesday. lower abd pain radiating to lower back, increased frequency of urination and some burning w urination starting today. pt pending provider.
--- NOTE | 2021-07-06 21:36 | ED_ITS ---
HPI - Female Genitourinary General Chief complaint: Urogenital-Female Stated complaint: Kidney stone Time Seen by Provider: 07/06/21 21:27 Source: patient Mode of arrival: ambulatory History of Present Illness HPI Narrative: 66-year-old female with history of renal colic presents with onset of right flank pain (she is status post appendectomy) that started Tuesday evening is been associated with significant nausea but denies any fever, chills, vomiting and states that it has caused some burning into her urine and radiates into her righ t groin area. Related Data Home Medications Medication Instructions Recorded Confirmed quetiapine 200 mg tablet 200 mg PO BEDTIME 10/31/20 06/29/21 dupilumab 300 mg/2 mL subcutaneous 300 mg SUBCUT Q2W 12/03/20 06/29/21 pen injector (Dupixent) clonazepam 1 mg tablet 1 mg PO TID PRN 06/19/21 06/29/21 Previous Rx's Medication Instructions Recorded miscellaneous medical supply 6 ea MISCELLANEOUS .COMPLEX 30 11/03/20 Days #200 ea miscellaneous medical supply See Rx Instructions MISCELLANEOUS 11/03/20 .COMPLEX #200 ea fluticasone furoate 200 1 inh INHALATION DAILY 30 Days #60 11/04/20 mcg-vilanterol 25 mcg/dose ea inhalation powder (Breo Ellipta) montelukast 10 mg tablet 10 mg PO DAILY 30 Days #30 tab 11/04/20 naloxone 4 mg/actuation nasal 4 mg INTRANASAL Q3M PRN #2 ea 12/03/20 spray (Narcan) blood pressure kit-extra large #1 ea 01/22/21 omeprazole 40 mg capsule,delayed 40 mg PO DAILY #90 cap 02/08/21 release ezetimibe 10 mg tablet 10 mg PO DAILY #90 tab 02/20/21 naproxen 500 mg tablet 500 mg PO BID 30 Days #60 tab 03/03/21 albuterol sulfate 90 mcg/actuation 2 puff PO Q6H PRN #8.5 ea 03/21/21 aerosol inhaler triamcinolone acetonide 0.5 % 1 appl TOPICAL DAILY #15 g 06/09/21 topical cream buprenorphine 10 mcg/hour weekly 1 patch TRANSDERMAL Q7D 28 Days #4 07/06/21 transdermal patch (Butrans) ea oxycodone-acetaminophen 5 mg-325 1 tab PO DAILY PRN 30 Days #30 tab 07/06/21 mg tablet (Percocet) Allergies Allergy/AdvReac Type Severity Reaction Status Date / Time Penicillins [PENICILLINS] Allergy Intermediate RASH Verified 06/30/21 14:11 Review of Systems Review of Systems: Pertinent positives and negatives as stated in HPI 10 point review of systems is otherwise negative. PMFSH Past Medical History Source: nursing notes reviewed Medical History KAMILA positive Anxiety Arthralgia Asthma Benign essential hypertension CAD (coronary artery disease) Chronic interstitial cystitis Depression Dyspnea Easy fatigability Esophageal stricture GERD (gastroesophageal reflux disease) Insomnia Irritable bowel syndrome (IBS) Left lumbar radiculopathy Lumbar degenerative disc disease Lumbar spine strain Lumbosacral strain Obesity Obesity (BMI 30-39.9) BRIDGETTE (obstructive sleep apnea) Osteoarthritis Pure hypercholesterolemia Status post fall Urticaria Vitamin D deficiency Surgical History History of cardiac catheterization History of colonoscopy History of nephrolithotomy with removal of calculi History of tooth extraction Status post balloon dilatation of esophageal stricture (~2005) Family History Family History Father Hypertension Mother Hypertension Diabetes CVD (cardiovascular disease) Daughter No problems noted. Family/Other FH: mental illness Other Mental health problem Substance abuse Social History Social History Housing: Apartment Alcohol intake: never Patient Tobacco Use Status: Never used Tobacco Second Hand Smoke Exposure: Yes Use of substances other than those prescribed or required for medical reasons: No Advance Directives: No Advance Directives Information Provided: Yes Patient : No service: No Current occupational status: disabled Cognitive needs: No Hearing needs: No Vision needs: No Physical Exam Vital Signs: Vital Signs: Last Vital Signs Temp 99.6 F 07/06/21 21:23 Pulse 86 07/06/21 21:23 Resp 18 07/06/21 21:23 BP 146/59 H 07/06/21 21:23 Pulse Ox 96 07/06/21 21:23 BMI result Body Mass Index 39.4 VITAL SIGNS: Reviewed. GENERAL: Well developed, well nourished, in no acute distress. HEAD: Normocephalic/atraumatic EYES: PERRLA, EOMI EARS: Ext canals without abnormality OROPHARYNX: no oral lesions noted, posterior pharynx clear LUNGS: Normal breath sounds. No adventitious sounds or accessory muscle use. SpO2<96> CARDIOVASCULAR: Regular rate and rhythm without noted murmurs, no JVD or lower extremity edema. ABDOMEN: Soft, right flank/right lower quadrant pain on palpation without rebound, non-distended with bowel sounds. MUSCULOSKELETAL: No tenderness, deformities, or effusions noted on gross inspection. EXTREMITIES: No cyanosis, clubbing or edema. SKIN: Inspection of the skin reveals no rashes NEUROLOGIC: Alert and oriented x 4. Strength and sensation to light touch were grossly intact x 4. Course Course Course Narrative: 66-year-old female with history and clinical presentation consistent with renal colic and suspect ureterolithiasis, no clinical suspicion for appendicitis/ovari an torsion and inconsistent with diverticulitis/cholecystitis. Patient received combination analgesics as well as Zofran for nausea. Patient eloped [facility] - Female Genitourinary Lab Data Result diagrams: 07/06/21 18:13 07/06/21 18:13 Labs: Lab Results 07/06/21 07/06/21 07/06/21 Range/Units 18:13 18:13 18:13 WBC 9.4 (4.8-10.8) X10*3/uL RBC 4.98 (4.20-5.50) X10*6/uL Hgb 12.6 (12.0-16.0) g/dl Hct 40.6 (37.0-47.0) % MCV 81.5 (80.0-98.0) fL MCH 25.3 L (27.0-33.0) pg MCHC 31.0 (31.0-35.0) g/dl RDW 15.2 (11.0-16.0) % Plt Count 267 (160-400) X10*3/uL MPV 11.9 (9.4-12.3) fL Immature Gran % (Auto) 0.2 (0.0-0.4) % Neut % (Auto) 66.3 (45-73) % Lymph % (Auto) 22.8 (20-40) % Ransom % (Auto) 5.1 (2-11) % Eos % (Auto) 5.0 H (0-4) % Baso % (Auto) 0.6 (0-2) % Lymph # (Auto) 2.1 (1.2-4.9) X10*3/uL Ransom # (Auto) 0.5 (0.1-1.2) X10*3/uL Eos # (Auto) 0.5 H (0.0-0.4) X10*3/uL Baso # (Auto) 0.1 (0.0-0.2) X10*3/uL Abs Immat Gran (auto) 0.02 (0.00-0.03) X10*3/uL Absolute Neuts (auto) 6.2 (2.0-8.3) x10*3/uL Absolute Nucleated RBC 0.000 (0.0-0.012) X10*3/uL Nucleated RBC % (auto) 0.0 (0.0-0.2) /100WBC Sodium 142 (135-145) mmol/L Potassium 4.1 (3.3-5.1) mmol/L Chloride 105 (96-108) mmol/L Carbon Dioxide 27 (22-29) mmol/L Anion Gap 14 (12-20) BUN 12 (9-16) mg/dL Creatinine 0.87 (0.5-1.4) mg/dL Estim Creat Clear Calc 63.3 Estimated GFR > 60 Random Glucose 95 (60-115) mg/dL Calcium 10.3 H (8.4-10.2) mg/dL Urine Color YELLOW Urine Appearance HAZY Urine pH 6.5 (5.0-8.0) Ur Specific [place] 1.020 (1.005-1.025) Urine Protein TRACE (NEG-TRACE) MG/DL Urine Glucose (UA) NEG (NEG) MG/DL Urine Ketones NEG (NEG) MG/DL Urine Blood 2+ H (NEG) Urine Nitrite NEG (NEG) Ur Leukocyte Esterase NEG (NEG) Urine RBC 5-9 H (0) /HPF Urine WBC 0 (0-4) /HPF Ur Squamous Epith Cells 1+ /LPF Calcium Oxalate Crystal 3+ /LPF Urine Bacteria NONE /LPF Urine Mucus 2+ /LPF Discharge Plan Discharge Clinical Impression: Renal colic Patient Disposition: Elopement Prescriptions: No Action miscellaneous medical supply Misc 6 ea miscellaneous .COMPLEX 30 Days Qty: 200 12RF Rx Instructions: 6 ea miscellaneous Adult Depends, size: Large; Adult Depends, size: Large; miscellaneous medical supply Misc See Rx Instructions miscellaneous .COMPLEX Qty: 200 12RF Rx Instructions: 6x daily Incontinence Pads miscellaneous; Incontinence Pads (DME) blood pressure kit-extra large Kit See Rx Instructions .Route Qty: 1 0RF Rx Instructions: As directed omeprazole 40 mg capsule,delayed release(DR/EC) 40 mg PO DAILY Qty: 90 1RF ezetimibe 10 mg tablet 10 mg PO DAILY Qty: 90 1RF albuterol sulfate 90 mcg/actuation HFA aerosol inhaler 2 puff PO Q6H PRN (Reason: for wheezing) Qty: 8.5 5RF triamcinolone acetonide 0.5 % cream 1 appl topical DAILY Qty: 15 1RF oxycodone-acetaminophen [Percocet] 5-325 mg tablet 1 tab PO DAILY PRN (Reason: pain) 30 Days Qty: 30 0RF buprenorphine [Butrans] 10 mcg/hour patch weekly 1 patch transdermal Q7D 28 Days Qty: 4 0RF Rx Instructions: Refill date 07/12/21 clonazepam 1 mg tablet 1 mg PO TID PRN (Reason: Anxiety) 0RF Rx Instructions: Pt take .5 q daily Dupixent Pen 300 mg/2 mL pen injector 300 mg subcut Q2W 0RF Narcan 4 mg/actuation spray,non-aerosol 4 mg intranasal Q3M PRN (Reason: opioid overdose) Qty: 2 0RF Rx Instructions: spray 1 dose into ONE nostril; alternate nostrils w each dose until help arrives quetiapine 200 mg tablet 200 mg PO BEDTIME 0RF Breo Ellipta 200-25 mcg/dose blister with device 1 inh inhalation DAILY 30 Days Qty: 60 11RF montelukast 10 mg tablet 10 mg PO DAILY 30 Days Qty: 30 11RF naproxen 500 mg tablet 500 mg PO BID 30 Days Qty: 60 0RF Interventions: ED Discharge Assessment Last Done: 07/06/21 23:41 Discharge Date/Time: 07/06/21 23:43
[2021-07-06] MEDS: Ondansetron ODT 4 MG TAB.RAPDIS TRANSLINGU (22:02)
[2021-07-06] MEDS: Acetaminophen 325 MG TABLET 975 MG PO (22:02)
[2021-07-06] MEDS: Ketorolac Tromethamine 15 MG/ML VIAL IM (22:02)
--- NOTE | 2021-07-06 22:06 | PC.NURSE ---
patient a&ox3, medicated per order, vss, c/o rt flank pain 8-12/26, call bennett within reach, will continue to monitor.
--- NOTE | 2021-07-06 23:40 | PC.NURSE ---
Pt not found in room @ this time. Per registration, pt left. aware.
== END 2021-07-06 23:43 | disposition left against medical advice (07) ==
PROVIDERS: Emergency Provider Student in an Organized Health Care Education/Training Program; PCP Internal Medicine
DX: N23 Unspecified renal colic (principal); Z87.442 Personal history of urinary calculi
CPT/HCPCS: 36415; 80048; 81001; 85025; 96372; 99284; J1885

== ENCOUNTER 2021-07-09 17:20 | Outpatient (REF) | payer MEDICARE, SELFPAY | END 2021-07-09 17:21 | disposition home or self-care (01) | LOC: HO.LNP 17:20 | PROVIDERS: Visit Provider Nurse Practitioner Family | DX: R10.9 Unspecified abdominal pain (principal) | CPT/HCPCS: 87086 ==

== ENCOUNTER → 2021-07-27 13:51 | Outpatient (BNVA) | payer OTHER, SELFPAY | PROVIDERS: PCP Internal Medicine; Visit Provider Nurse Practitioner Family | DX: Z51.81 Encounter for therapeutic drug level monitoring (principal); M47.27 Other spondylosis with radiculopathy, lumbosacral region; G89.4 Chronic pain syndrome; Z79.891 Long term (current) use of opiate analgesic | CPT/HCPCS: 99212 ==

== ENCOUNTER 2021-07-28 10:35 | Outpatient (REF) | payer OTHER, SELFPAY ==
--- NOTE | ~2021-07-28 | XR_ITS ---
EXAMINATION: BILATERAL FOOT AND BILATERAL HAND. CLINICAL INFORMATION: Pain. Anesthesia of skin. COMPARISON: None TECHNIQUE: 3 views each foot. 3 views each hand. FINDINGS: RIGHT HAND: There is mild loss of PIP and DIP joint space with periarticular spurring all DIP joints and second digit PIP joint. No visible acute fracture, dislocation or subluxation seen. There is no deformity of the joints. The MCP joints and the intercarpal and carpometacarpal joints are normal. LEFT HAND: There is mild loss of PIP and DIP joint space all digits with mild flexion deformity DIP joint fifth digit. No visible acute fracture, dislocation or subluxation. No bony erosive changes. The soft tissues are normal. RIGHT FOOT: There is no visible acute fracture, dislocation or subluxation. There is no bony erosive changes. The ankle mortise and subtalar joints are normal. There is a moderate size calcaneal heel and retrocalcaneal enthesophytes. The ankle mortise and subtalar joints are normal. No acute fracture or dislocation seen. LEFT FOOT: The ankle mortise and subtalar joints are normal. The left foot joints and visualized bones are grossly unremarkable. There is moderate size retrocalcaneal and calcaneal enthesophytes. The soft tissues are normal. XR/XR foot RT min 3V IMPRESSION: Moderate-sized bilateral calcaneal heel and retrocalcaneal enthesophytes. No acute fracture or dislocation seen in either foot. Mild degenerative changes PIP and DIP joints of both digits. There is mild deformity DIP joint fifth digit left hand. No visible acute fracture or dislocation.
--- NOTE | ~2021-07-28 | XR_ITS ---
EXAMINATION: BILATERAL FOOT AND BILATERAL HAND. CLINICAL INFORMATION: Pain. Anesthesia of skin. COMPARISON: None TECHNIQUE: 3 views each foot. 3 views each hand. FINDINGS: RIGHT HAND: There is mild loss of PIP and DIP joint space with periarticular spurring all DIP joints and second digit PIP joint. No visible acute fracture, dislocation or subluxation seen. There is no deformity of the joints. The MCP joints and the intercarpal and carpometacarpal joints are normal. LEFT HAND: There is mild loss of PIP and DIP joint space all digits with mild flexion deformity DIP joint fifth digit. No visible acute fracture, dislocation or subluxation. No bony erosive changes. The soft tissues are normal. RIGHT FOOT: There is no visible acute fracture, dislocation or subluxation. There is no bony erosive changes. The ankle mortise and subtalar joints are normal. There is a moderate size calcaneal heel and retrocalcaneal enthesophytes. The ankle mortise and subtalar joints are normal. No acute fracture or dislocation seen. LEFT FOOT: The ankle mortise and subtalar joints are normal. The left foot joints and visualized bones are grossly unremarkable. There is moderate size retrocalcaneal and calcaneal enthesophytes. The soft tissues are normal. XR/XR hand LT 2V IMPRESSION: Moderate-sized bilateral calcaneal heel and retrocalcaneal enthesophytes. No acute fracture or dislocation seen in either foot. Mild degenerative changes PIP and DIP joints of both digits. There is mild deformity DIP joint fifth digit left hand. No visible acute fracture or dislocation.
--- NOTE | ~2021-07-28 | XR_ITS ---
EXAMINATION: BILATERAL FOOT AND BILATERAL HAND. CLINICAL INFORMATION: Pain. Anesthesia of skin. COMPARISON: None TECHNIQUE: 3 views each foot. 3 views each hand. FINDINGS: RIGHT HAND: There is mild loss of PIP and DIP joint space with periarticular spurring all DIP joints and second digit PIP joint. No visible acute fracture, dislocation or subluxation seen. There is no deformity of the joints. The MCP joints and the intercarpal and carpometacarpal joints are normal. LEFT HAND: There is mild loss of PIP and DIP joint space all digits with mild flexion deformity DIP joint fifth digit. No visible acute fracture, dislocation or subluxation. No bony erosive changes. The soft tissues are normal. RIGHT FOOT: There is no visible acute fracture, dislocation or subluxation. There is no bony erosive changes. The ankle mortise and subtalar joints are normal. There is a moderate size calcaneal heel and retrocalcaneal enthesophytes. The ankle mortise and subtalar joints are normal. No acute fracture or dislocation seen. LEFT FOOT: The ankle mortise and subtalar joints are normal. The left foot joints and visualized bones are grossly unremarkable. There is moderate size retrocalcaneal and calcaneal enthesophytes. The soft tissues are normal. XR/XR foot LT min 3V IMPRESSION: Moderate-sized bilateral calcaneal heel and retrocalcaneal enthesophytes. No acute fracture or dislocation seen in either foot. Mild degenerative changes PIP and DIP joints of both digits. There is mild deformity DIP joint fifth digit left hand. No visible acute fracture or dislocation.
--- NOTE | ~2021-07-28 | XR_ITS ---
EXAMINATION: BILATERAL FOOT AND BILATERAL HAND. CLINICAL INFORMATION: Pain. Anesthesia of skin. COMPARISON: None TECHNIQUE: 3 views each foot. 3 views each hand. FINDINGS: RIGHT HAND: There is mild loss of PIP and DIP joint space with periarticular spurring all DIP joints and second digit PIP joint. No visible acute fracture, dislocation or subluxation seen. There is no deformity of the joints. The MCP joints and the intercarpal and carpometacarpal joints are normal. LEFT HAND: There is mild loss of PIP and DIP joint space all digits with mild flexion deformity DIP joint fifth digit. No visible acute fracture, dislocation or subluxation. No bony erosive changes. The soft tissues are normal. RIGHT FOOT: There is no visible acute fracture, dislocation or subluxation. There is no bony erosive changes. The ankle mortise and subtalar joints are normal. There is a moderate size calcaneal heel and retrocalcaneal enthesophytes. The ankle mortise and subtalar joints are normal. No acute fracture or dislocation seen. LEFT FOOT: The ankle mortise and subtalar joints are normal. The left foot joints and visualized bones are grossly unremarkable. There is moderate size retrocalcaneal and calcaneal enthesophytes. The soft tissues are normal. XR/XR hand RT 2V IMPRESSION: Moderate-sized bilateral calcaneal heel and retrocalcaneal enthesophytes. No acute fracture or dislocation seen in either foot. Mild degenerative changes PIP and DIP joints of both digits. There is mild deformity DIP joint fifth digit left hand. No visible acute fracture or dislocation.
== END 2021-07-28 10:36 | disposition home or self-care (01) ==
LOC: HO.XRAY 10:35
PROVIDERS: PCP Internal Medicine; Visit Provider Internal Medicine Rheumatology
DX: M79.671 Pain in right foot (principal); M79.672 Pain in left foot; M17.0 Bilateral primary osteoarthritis of knee; R20.0 Anesthesia of skin; R76.8 Other specified abnormal immunological findings in serum; L50.9 Urticaria, unspecified
CPT/HCPCS: 73120; 73630; 99212

== ENCOUNTER 2021-07-29 14:43 | Outpatient (REF) | payer OTHER, SELFPAY ==
--- NOTE | ~2021-07-29 | US_ITS ---
EXAMINATION: US RETROPERITONEAL LIMITED (RENAL ONLY) CLINICAL INFORMATION: Calculus of kidney. COMPARISON: US retroperitoneal limited (renal only) 06/04/2020 and 12/12/2019. CT abdomen and pelvis 06/14/2019. TECHNIQUE: Real-time imaging of the kidneys. FINDINGS: RIGHT KIDNEY: 11.0 x 4.3 x 4.8 cm (SAG x AP x TRV). The kidney is normal in size, contour, and echogenicity. Renal cortical thickness is normal. No focal parenchymal lesions or hydronephrosis. There are nonobstructive echogenic stones in upper pole measuring 0.5 cm, lower pole measuring 0.4 cm and 0.4 cm. No caliectasis seen. LEFT KIDNEY: 10.0 x 4.0 x 5.1 cm (SAG x AP x TRV). The kidney is normal in size, contour, and echogenicity. Renal cortical thickness is normal. No focal parenchymal lesions.. There is mild renal pelvic fullness. There is an nonobstructive echogenic stone upper pole measuring 0.3 cm and lower pole measuring 0.3 cm. US/US renal BI IMPRESSION: Bilateral nonobstructive echogenic renal calculi. No caliectasis or hydronephrosis seen.
== END 2021-07-29 14:44 | disposition home or self-care (01) ==
LOC: HO.US 14:43
DX: N20.0 Calculus of kidney (principal)
CPT/HCPCS: 76775

== ENCOUNTER 2021-08-19 10:48 | Day surgery (SDC) | payer OTHER, SELFPAY ==
[2021-08-13 15:19] VITALS: BMI 39.4
--- NOTE | 2021-08-18 08:57 | HO.ANESPROP2 ---
Documented by User: Christine Callaway NP 08/18/21 09:01 HPI - Anesthesia Eval Consult details Narrative: 66yo F for Bilateral Medial Branch Block s/p cysto 12/2020 with GA-ETT 7 Chronic opioids, buprenorphine patch PMFSH Active Problems Active Problems: All Active Problems (Updated 08/13/21 @ 15:11 by Brittanie Castillo, RN) Nephrolithiasis (Acute) Spondylosis of lumbosacral spine with radiculopathy (Acute) Long-term current use of opiate analgesic (Acute) Mild depression (Acute) Moderate anxiety (Acute) Bilateral hand numbness (Acute) Bilateral primary osteoarthritis of knee (Acute) Chronic pain syndrome (Acute) Foot pain, bilateral (Acute) BRIDGETTE (obstructive sleep apnea) (Acute) Asthma (Acute) Urticaria (Acute) Obesity (BMI 30-39.9) (Acute) Vitamin D deficiency (Acute) Chronic interstitial cystitis (Acute) Irritable bowel syndrome (IBS) (Acute) Esophageal stricture (Acute) GERD (gastroesophageal reflux disease) (Acute) Left lumbar radiculopathy (Acute) CAD (coronary artery disease) (Acute) Pure hypercholesterolemia (Acute) Benign essential hypertension (Acute) Past Medical History Medical History KAMILA positive Anxiety Arthralgia Asthma Benign essential hypertension CAD (coronary artery disease) Chronic interstitial cystitis Depression Dyspnea Easy fatigability Esophageal stricture Foot pain, bilateral GERD (gastroesophageal reflux disease) Insomnia Irritable bowel syndrome (IBS) Left lumbar radiculopathy Lumbar degenerative disc disease Lumbosacral strain Obesity (BMI 30-39.9) BRIDGETTE (obstructive sleep apnea) Osteoarthritis Pure hypercholesterolemia Status post fall Urticaria Vitamin D deficiency Family History Family History Father Hypertension Mother Hypertension Diabetes CVD (cardiovascular disease) Daughter No problems noted. Family/Other FH: mental illness Other Mental health problem Substance abuse Surgical History Surgical History History of cardiac catheterization History of colonoscopy History of nephrolithotomy with removal of calculi History of tooth extraction Hx of cystoscopy Status post balloon dilatation of esophageal stricture (~2005) Social History Social History Housing: Apartment Alcohol intake: never Patient Tobacco Use Status: Never used Tobacco e-Cigarette/Vaping Use: Never Used Second Hand Smoke Exposure: Yes Use of substances other than those prescribed or required for medical reasons: No Advance Directives: No Advance Directives Information Provided: Yes (brochure mailed) Advance Directives on File: No service: No Current occupational status: disabled Cognitive needs: No Hearing needs: No Vision needs: No Meds Allergies Allergy/AdvReac Type Severity Reaction Status Date / Time Penicillins [PENICILLINS] Allergy Intermediate RASH Verified 07/28/21 10:48 Home Medications Medication Instructions Recorded Confirmed Last Taken Type quetiapine 200 mg tablet 200 mg PO BEDTIME 10/31/20 08/13/21 Unknown History dupilumab 300 mg/2 mL subcutaneous 300 mg SUBCUT Q2W 12/03/20 08/13/21 Unknown History pen injector (Dupixent) clonazepam 1 mg tablet 0.5 mg PO DAILY PRN tab 07/28/21 08/13/21 Unknown History naproxen 500 mg tablet 500 mg PO BID PRN tab 07/28/21 08/13/21 Unknown History Exam Exam Date and Time: August 18, 2021 0857 Height,Weight and Vital Signs: Height 5 ft Weight 91.626 kg Pertinent Lab Results Pertinent Lab Results: Laboratory Tests 07/06/21 07/06/21 18:13 18:13 WBC 9.4 Hgb 12.6 Hct 40.6 Plt Count 267 Sodium 142 Potassium 4.1 Chloride 105 Carbon Dioxide 27 BUN 12 Creatinine 0.87 Narrative Narrative: PFT 12/2020 CONCLUSION:? Mild to moderate degree of restrictive pulmonary disorder. ? No significant obstructive airway disorder. ? Clinical correlation recommended. Assessment and Plan Assessment Anesthesia Assessment: Chart Reviewed Documented by User: Desirae Andrade MD 08/19/21 12:38 PMFSH Past Medical History Medical History KAMILA positive Anxiety Arthralgia Asthma Benign essential hypertension CAD (coronary artery disease) Chronic interstitial cystitis Depression Dyspnea Easy fatigability Esophageal stricture Foot pain, bilateral GERD (gastroesophageal reflux disease) Insomnia Irritable bowel syndrome (IBS) Left lumbar radiculopathy Lumbar degenerative disc disease Lumbosacral strain Obesity (BMI 30-39.9) BRIDGETTE (obstructive sleep apnea) Osteoarthritis Pure hypercholesterolemia Status post fall Urticaria Vitamin D deficiency Family History Family History Father Hypertension Mother Hypertension Diabetes CVD (cardiovascular disease) Daughter No problems noted. Family/Other FH: mental illness Other Mental health problem Substance abuse Surgical History Surgical History History of cardiac catheterization History of colonoscopy History of nephrolithotomy with removal of calculi History of tooth extraction Hx of cystoscopy Status post balloon dilatation of esophageal stricture (~2005) History of Problems with Anesthesia: No Social History Social History Housing: Apartment Alcohol intake: never Patient Tobacco Use Status: Never used Tobacco e-Cigarette/Vaping Use: Never Used Second Hand Smoke Exposure: Yes Use of substances other than those prescribed or required for medical reasons: No Advance Directives: No Advance Directives Information Provided: Yes (brochure mailed) Advance Directives on File: No service: No Current occupational status: disabled Cognitive needs: No Hearing needs: No Vision needs: No Meds Allergies Allergy/AdvReac Type Severity Reaction Status Date / Time Penicillins [PENICILLINS] Allergy Intermediate RASH Verified 07/28/21 10:48 Home Medications Medication Instructions Recorded Confirmed Last Taken Type quetiapine 200 mg tablet 200 mg PO BEDTIME 10/31/20 08/13/21 Unknown History dupilumab 300 mg/2 mL subcutaneous 300 mg SUBCUT Q2W 12/03/20 08/13/21 Unknown History pen injector (Dupixent) clonazepam 1 mg tablet 0.5 mg PO DAILY PRN tab 07/28/21 08/13/21 Unknown History naproxen 500 mg tablet 500 mg PO BID PRN tab 07/28/21 08/13/21 Unknown History Exam Airway Mallampati Class: II (Edentulous) Neck ROM: Full Loose/Missing/Broken Teeth: Yes, Upper and Lower Heart: RRR Lungs: CTA Assessment and Plan Assessment Anesthesia Assessment: Anesthesia Plan Discussed Final Anesthetic Review History of Problems with Anesthesia: No ASA Class: III Final Preanesthetic Review: Meds/Allgs Chart Reviewed, Consent Obtained/Reviewed and Anes Risks/Benef Reviewed Patient Risk: Intermediate Procedure Risk: Low Anesthetic Plan Anesthetic Plan: MAC: Disposition: Standard PACU
--- NOTE | ~2021-08-19 | FL_ITS ---
EXAMINATION: XR FLUOROSCOPY WITH IMAGES CLINICAL INFORMATION: Bilateral medial branch blocks L3, L4, and L5. COMPARISON: 06/17/2021 TECHNIQUE: Fluoroscopy performed by Dr. Pacheco Fluoroscopy time: 0.3 minutes DAP: 1.90 Gycm2 Images: 3 FINDINGS: [place] and contrast seen overlying the region of facets L3 through L5 bilaterally. FL/FL guidance in OR IMPRESSION: Intraoperative imaging for pain management procedure.
[2021-08-19 10:54] VITALS: BP 149/87; PULSE 78; RESP 18; TEMP 36.1; O2SAT 97
[2021-08-19] MEDS: Lactated Ringers 1,000 ML 100 ML IVCONT (11:24)
--- NOTE | 2021-08-19 12:23 | PC.NURSE ---
dr roldan evaluated pt for c/p pt denies okay to proceed
--- NOTE | 2021-08-19 12:51 | MHC.SHP ---
Pre-Procedural Eval Section A Date of Service: 08/19/21 The patient is an INPATIENT: No Changes since office visit: Yes Patient answered all questions The History & Physical has been completed within 30 days and I have reviewed it.: No Section B Chief Complaint: spondylosis Relevant Family History (Specify if Yes): No Medical History: Significant History (low back pain) Allergies: Allergies Allergy/AdvReac Type Severity Reaction Status Date / Time Penicillins [PENICILLINS] Allergy Intermediate RASH Verified 07/28/21 10:48 Plan Diagnosis/Plan: Unchanged I have reviewed the history and physical and performed a pertinent physical examination on my patient. No changes have occurred unless specified.
[2021-08-19 13:31] VITALS: BP 112/64; PULSE 89; RESP 12; TEMP 36.6; O2SAT 97
--- NOTE | 2021-08-19 13:44 | PM.OP ---
Brief Operative Note Date of Service: 08/19/21 Pre-op diagnosis: Lumbar spondylosis Post-op diagnosis: same Procedure: Lumbar medial branch blocks Implants: None Surgeon: Rosendo Pacheco MD Anesthesia: MAC Was an Retail Financial Analyst used for this Procedure?: No Estimated blood loss (mL): 0 Pathology: none sent Condition: stable Disposition: PACU
--- NOTE | 2021-08-19 13:44 | W.PM.OPN ---
Operative Note Operative Note Date of Service: 08/19/21 Narrative: Lumbar Medial Branch Block, Bilateral L3, L4 medial branches and L5 Dorsal Ramus (2 levels, 3 nerves) After obtaining written consent, pre-procedure blood pressure and pulse were recorded and are in the nursing record for review. The patient was placed in a prone position and sedated by the power plant installer. The respective lumbosacral area was prepped with chloraprep and draped in sterile fashion. The skin over the target medial branch nerves was anesthetized with 0.5% lidocaine. A 22 gauge 3.5 inch needle was inserted into the target medial branch nerve under fluoroscopic guidance. No paresthesias were elicited with needle placement and aspiration was negative for blood and CSF. Next, 0.2cc of omnipaque 180 was injected to verify positioning. Next 0.5 ml 0.5% ropivicaine was injected (0.5cc total per level). The identical procedure was performed at the remaining levels. The skin was cleansed and a sterile bandage was applied. Following the procedure the patient's vital signs were stable. The patient tolerated the procedure well and no complications were encountered. Following the procedure the patient was brought to the PACU in stable condition and the patient's vital signs were stable. The patient was discharged home in good condition with post-procedural instructions. Time Out: Immediately prior to the procedure, the following was verbally confirmed that there is a signed consent form and that the correct patient, planned procedure, site and side are consistent with documentation and that necessary equipment and/or blood products are available prior to the start of the case. Complications: none EBL: <5 cc
[2021-08-19 13:45] VITALS: BP 127/70; PULSE 86; RESP 12; O2SAT 97
[2021-08-19 14:00] VITALS: BP 146/73; PULSE 80; RESP 16; O2SAT 97
[2021-08-19 14:33] VITALS: BP 149/73; PULSE 80; RESP 16; O2SAT 98
== END 2021-08-19 15:16 | disposition home or self-care (01) ==
PROVIDERS: PCP Internal Medicine; Visit Provider Internal Medicine
PROC: (CPT 64493; principal; 2021-08-19 12:30)
DX: M47.27 Other spondylosis with radiculopathy, lumbosacral region (principal); M51.36 Other intervertebral disc degeneration, lumbar region; G89.4 Chronic pain syndrome; Z79.891 Long term (current) use of opiate analgesic; M17.0 Bilateral primary osteoarthritis of knee; Z91.81 History of falling; R53.83 Other fatigue; I10 Essential (primary) hypertension; J45.909 Unspecified asthma, uncomplicated; F32.9 Major depressive disorder, single episode, unspecified; N30.10 Interstitial cystitis (chronic) without hematuria; Z88.0 Allergy status to penicillin; Z79.899 Other long term (current) drug therapy
CPT/HCPCS: 64493; 64494; J2250; J2795; J3010; Q9967

== ENCOUNTER → 2021-08-24 11:06 | Outpatient (BNVA) | payer OTHER, SELFPAY | PROVIDERS: Visit Provider Internal Medicine | DX: Z51.81 Encounter for therapeutic drug level monitoring (principal); F11.20 Opioid dependence, uncomplicated; M47.816 Spondylosis without myelopathy or radiculopathy, lumbar region; M47.27 Other spondylosis with radiculopathy, lumbosacral region; G89.4 Chronic pain syndrome; Z79.891 Long term (current) use of opiate analgesic | CPT/HCPCS: 99212; Q3014 ==

== ENCOUNTER → 2021-08-25 10:35 | Outpatient (BNVA) | payer OTHER, SELFPAY | PROVIDERS: Visit Provider Orthopaedic Surgery | DX: Z13.89 Encounter for screening for other disorder (principal) ==

== ENCOUNTER → 2021-08-27 11:01 | Outpatient (BNVA) | payer OTHER, SELFPAY | PROVIDERS: PCP Internal Medicine; Visit Provider Urology | DX: N20.0 Calculus of kidney (principal); N30.10 Interstitial cystitis (chronic) without hematuria; R35.1 Nocturia | CPT/HCPCS: 99212 ==

== ENCOUNTER → 2021-09-17 09:09 | Outpatient (BNVA) | payer OTHER, SELFPAY | PROVIDERS: PCP Internal Medicine; Visit Provider Physician Assistant | DX: Z01.818 Encounter for other preprocedural examination (principal); M17.11 Unilateral primary osteoarthritis, right knee | CPT/HCPCS: 99212 ==

== ENCOUNTER → 2021-09-21 13:40 | Outpatient (BNVA) | payer OTHER, SELFPAY | PROVIDERS: Visit Provider Nurse Practitioner Family | DX: Z51.81 Encounter for therapeutic drug level monitoring (principal); M47.816 Spondylosis without myelopathy or radiculopathy, lumbar region; M47.27 Other spondylosis with radiculopathy, lumbosacral region; M17.11 Unilateral primary osteoarthritis, right knee; G89.4 Chronic pain syndrome; Z79.891 Long term (current) use of opiate analgesic | CPT/HCPCS: 99212 ==

== ENCOUNTER 2021-09-22 06:17 | Inpatient (IN) | payer OTHER, SELFPAY ==
[2021-08-25 11:40] LABS: MANUAL DIFF FLAG NO
--- NOTE | 2021-08-25 11:41 | ECG_ITS ---
Test Reason : preprocedural cardiovascular exam Blood Pressure : / mmHG Vent. Rate : 067 BPM Atrial Rate : 067 BPM P-R Int : 144 ms QRS Dur : 082 ms QT Int : 384 ms P-R-T Axes : 059 014 069 degrees QTc Int : 405 ms Normal sinus rhythm ST & T wave abnormality, consider anterior ischemia Abnormal ECG When compared to the previous EKG of T wave changes in anterior leads are more evident Referred By: Je Deras Electronically Signed By:AMY COTE MD
[2021-08-25 12:36] LABS: Basophils Absolute Auto 0.1 X10*3/uL (0.0-0.2); Basophils Percent Auto 0.7 % (0-2); Eosinophils Absolute Auto 0.6 X10*3/uL (0.0-0.4); Eosinophils Percent Auto 7.7 % (0-4); Hematocrit 38.7 % (37.0-47.0); Hemoglobin 12.2 g/dl (12.0-16.0); Imm Gran Abs Auto 0.02 X10*3/uL (0.00-0.03); Imm Gran Pct Auto 0.3 % (0.0-0.4); Lymphocytes Percent Auto 28.7 % (20-40); Mean Corpuscular HGB Conc 31.5 g/dl (31.0-35.0); Mean Corpuscular Hemoglobin 25.7 pg (27.0-33.0); Mean Corpuscular Volume 81.6 fL (80.0-98.0); Monocytes Absolute Auto 0.4 X10*3/uL (0.1-1.2); Monocytes Percent Auto 5.9 % (2-11); Neutrophils Percent Auto 56.7 % (45-73); Platelet Count 244 X10*3/uL (160-400); Red Blood Count 4.74 X10*6/uL (4.20-5.50); Red Cell Distribution Width 15.2 % (11.0-16.0); White Blood Count 7.1 X10*3/uL (4.8-10.8)
[2021-08-25 12:58] LABS: Anion Gap 17 (12-20); Blood Urea Nitrogen 13 mg/dL (9-16); Calcium 10.4 mg/dL (8.4-10.2); Carbon Dioxide 26 mmol/L (22-29); Chloride 105 mmol/L (96-108); Estimated Glomerular Filt Rate > 60; Glucose Random 85 mg/dL (60-115); Potassium 4.5 mmol/L (3.3-5.1); Sodium 143 mmol/L (135-145)
[2021-09-15 12:00] VITALS: BP 141/64; PULSE 84; RESP 20; O2SAT 95; BMI 36.9
--- NOTE | 2021-09-15 12:10 | HO.ANESPROP2 ---
Documented by User: Christine Callaway NP 09/21/21 12:52 HPI - Anesthesia Eval Consult details Narrative: 66yo F for Right Knee Replacement Total PCP cleared Chronic opioids, buprenorphine patch (workload to Dr Pacheco for instruction - pt to remove 2 day preop) s/p Medial Branch Block (L3,4,5) 08/2021 with TIVA, no issues with anesthesia PMFSH Active Problems Active Problems: All Active Problems (Updated 09/06/21 @ 17:02 by Curt Falk MD) Preoperative examination (Acute) Nocturia more than twice per night (Acute) Lumbar spondylosis (Acute) Nephrolithiasis (Acute) Spondylosis of lumbosacral spine with radiculopathy (Acute) Long-term current use of opiate analgesic (Acute) Mild depression (Acute) Moderate anxiety (Acute) Bilateral hand numbness (Acute) Bilateral primary osteoarthritis of knee (Acute) Chronic pain syndrome (Acute) Foot pain, bilateral (Acute) BRIDGETTE (obstructive sleep apnea) (Acute) Asthma (Acute) Urticaria (Acute) Obesity (BMI 30-39.9) (Acute) Vitamin D deficiency (Acute) Chronic interstitial cystitis (Acute) Irritable bowel syndrome (IBS) (Acute) Esophageal stricture (Acute) GERD (gastroesophageal reflux disease) (Acute) Left lumbar radiculopathy (Acute) CAD (coronary artery disease) (Acute) Pure hypercholesterolemia (Acute) Benign essential hypertension (Acute) Past Medical History Medical History KAMILA positive Anxiety Arthralgia Asthma Benign essential hypertension CAD (coronary artery disease) Chronic interstitial cystitis Depression Dyspnea Easy fatigability Esophageal stricture Foot pain, bilateral GERD (gastroesophageal reflux disease) Insomnia Irritable bowel syndrome (IBS) Left lumbar radiculopathy Lumbar degenerative disc disease Lumbar spondylosis Lumbosacral strain Obesity (BMI 30-39.9) BRIDGETTE (obstructive sleep apnea) Osteoarthritis Pure hypercholesterolemia Status post fall Urticaria Vitamin D deficiency Family History Family History Father Hypertension Mother Hypertension Diabetes CVD (cardiovascular disease) Daughter No problems noted. Family/Other FH: mental illness Other Mental health problem Substance abuse Family history of problems with anesthesia: No (Daughter wakes slowly) Surgical History Surgical History History of cardiac catheterization History of colonoscopy History of nephrolithotomy with removal of calculi History of tooth extraction Hx of cystoscopy Status post balloon dilatation of esophageal stricture (~2005) History of Problems with Anesthesia: No Social History Social History Housing: Apartment Are you a primary clinical manager home care to a significant other at home: No Do you presently have visiting nurse or other home services: No Alcohol intake: never Patient Tobacco Use Status: Never used Tobacco e-Cigarette/Vaping Use: Never Used Second Hand Smoke Exposure: No Use of substances other than those prescribed or required for medical reasons: No Currently Displaying Signs/Symptoms of Drug Intoxication Withdrawal: No Have you been hit, kicked, punched, or otherwise hurt by someone within the past year? If so, by whom?: No Are you DNR?: No Advance Directives: No Advance Directives Information Provided: Yes (Info Given) Advance Directives on File: No Recently lost weight without trying: No Eating poorly because of decreased appetite: No Nutrition Risks: No Nutritional Risk Patient : No : No Poor oral hygiene: Yes (full Dentures) service: No Current occupational status: disabled Cognitive needs: No Hearing needs: No Vision needs: Yes Narrative Narrative: No recent illness No CP/SOB within limits of activity/pain Meds Allergies Allergy/AdvReac Type Severity Reaction Status Date / Time Penicillins [PENICILLINS] Allergy Intermediate RASH Verified 09/17/21 09:15 Home Medications Medication Instructions Recorded Confirmed Last Taken Type dupilumab 300 mg/2 mL subcutaneous 300 mg SUBCUT Q2W 12/03/20 09/11/21 Unknown History pen injector (Dupixent) buspirone 7.5 mg tablet 7.5 mg PO BID 09/04/21 09/11/21 Unknown History escitalopram oxalate 10 mg tablet 10 mg PO DAILY 09/21/21 Unknown History meloxicam 15 mg tablet 15 mg PO DAILY 09/21/21 09/22/21 Unknown History quetiapine 25 mg tablet 25 mg PO BEDTIME 09/21/21 Unknown History buprenorphine 10 mcg/hour weekly 1 patch TOPICAL QWEEK 09/22/21 09/22/21 Unknown History transdermal patch quetiapine 100 mg tablet 1 tab PO BEDTIME 09/22/21 09/22/21 Unknown History Exam Exam Date and Time: September 15, 2021 1210 Height,Weight and Vital Signs: Height 5 ft Weight 85.729 kg Last Vital Signs Pulse 84 09/15/21 12:00 Resp 20 09/15/21 12:00 BP 141/64 H 09/15/21 12:00 Pulse Ox 95 09/15/21 12:00 Pertinent Lab Results Pertinent Lab Results: Laboratory Tests 08/25/21 08/25/21 11:39 11:39 WBC 7.1 RBC 4.74 Hgb 12.2 Hct 38.7 MCV 81.6 MCH 25.7 L MCHC 31.5 RDW 15.2 Plt Count 244 MPV 12.0 Immature Gran % (Auto) 0.3 Neut % (Auto) 56.7 Lymph % (Auto) 28.7 [place] % (Auto) 5.9 Eos % (Auto) 7.7 H Baso % (Auto) 0.7 Lymph # (Auto) 2.0 [place] # (Auto) 0.4 Eos # (Auto) 0.6 H Baso # (Auto) 0.1 Abs Immat Gran (auto) 0.02 Absolute Neuts (auto) 4.0 Absolute Nucleated RBC 0.000 Nucleated RBC % (auto) 0.0 Sodium 143 Potassium 4.5 Chloride 105 Carbon Dioxide 26 Anion Gap 17 BUN 13 Creatinine 0.83 Estim Creat Clear Calc TNP Estimated GFR > 60 Random Glucose 85 Calcium 10.4 H Narrative Narrative: EKG 08/2021 Vent. Rate : 067 BPM ? ? Atrial Rate : 067 BPM ?? P-R Int : 144 ms? QRS Dur : 082 ms ? ? QT Int : 384 ms ? ? ? P-R-T Axes : 059 014 069 degrees ?? QTc Int : 405 ms ? Normal sinus rhythm ST & T wave abnormality, consider anterior ischemia Abnormal ECG When compared to the previous EKG of T wave changes in anterior leads are more evident PFT 12/2020 CONCLUSION:? Mild to moderate degree of restrictive pulmonary disorder. ? No significant obstructive airway disorder. ? Clinical correlation recommended. Airway Mallampati Class: III (Small mouth) TM Dist: >3cm Neck ROM: Full Loose/Missing/Broken Teeth: Yes (All teeth are removable implants, posts remain when removed) Heart: RRR Lungs: CTAB Assessment and Plan Assessment Anesthesia Assessment: Anesthesia Plan Discussed and PAT Visit Final Anesthetic Review Family History of Problems with Anesthesia: No (Daughter wakes slowly) History of Problems with Anesthesia: No Documented by User: Micky Lopez MD 09/22/21 14:02 [facility], [facility] Past Medical History Medical History KAMILA positive Anxiety Arthralgia Asthma Benign essential hypertension CAD (coronary artery disease) Chronic interstitial cystitis Depression Dyspnea Easy fatigability Esophageal stricture Foot pain, bilateral GERD (gastroesophageal reflux disease) Insomnia Irritable bowel syndrome (IBS) Left lumbar radiculopathy Lumbar degenerative disc disease Lumbar spondylosis Lumbosacral strain Obesity (BMI 30-39.9) BRIDGETTE (obstructive sleep apnea) Osteoarthritis Pure hypercholesterolemia Status post fall Urticaria Vitamin D deficiency Family History Family History Father Hypertension Mother Hypertension Diabetes CVD (cardiovascular disease) Daughter No problems noted. Family/Other FH: mental illness Other Mental health problem Substance abuse Surgical History Surgical History History of cardiac catheterization History of colonoscopy History of nephrolithotomy with removal of calculi History of tooth extraction Hx of cystoscopy Status post balloon dilatation of esophageal stricture (~2005) Social History Social History Housing: Apartment Are you a primary clinical manager home care to a significant other at home: No Do you presently have visiting nurse or other home services: No Alcohol intake: never Patient Tobacco Use Status: Never used Tobacco e-Cigarette/Vaping Use: Never Used Second Hand Smoke Exposure: No Use of substances other than those prescribed or required for medical reasons: No Currently Displaying Signs/Symptoms of Drug Intoxication Withdrawal: No Have you been hit, kicked, punched, or otherwise hurt by someone within the past year? If so, by whom?: No Are you DNR?: No Advance Directives: No Advance Directives Information Provided: Yes (Info Given) Advance Directives on File: No Recently lost weight without trying: No Eating poorly because of decreased appetite: No Nutrition Risks: No Nutritional Risk Patient : No : No Poor oral hygiene: Yes (full Dentures) service: No Current occupational status: disabled Cognitive needs: No Hearing needs: No Vision needs: Yes Meds Allergies Allergy/AdvReac Type Severity Reaction Status Date / Time Penicillins [PENICILLINS] Allergy Intermediate RASH Verified 09/17/21 09:15 Home Medications Medication Instructions Recorded Confirmed Last Taken Type dupilumab 300 mg/2 mL subcutaneous 300 mg SUBCUT Q2W 12/03/20 09/11/21 Unknown History pen injector (Dupixent) buspirone 7.5 mg tablet 7.5 mg PO BID 09/04/21 09/11/21 Unknown History escitalopram oxalate 10 mg tablet 10 mg PO DAILY 09/21/21 Unknown History meloxicam 15 mg tablet 15 mg PO DAILY 09/21/21 09/22/21 Unknown History quetiapine 25 mg tablet 25 mg PO BEDTIME 09/21/21 Unknown History buprenorphine 10 mcg/hour weekly 1 patch TOPICAL QWEEK 09/22/21 09/22/21 Unknown History transdermal patch quetiapine 100 mg tablet 1 tab PO BEDTIME 09/22/21 09/22/21 Unknown History Assessment and Plan Final Anesthetic Review NPO: Yes ASA Class: III Final Preanesthetic Review: Meds/Allgs Chart Reviewed, Consent Obtained/Reviewed and Anes Risks/Benef Reviewed Patient Risk: High Procedure Risk: Intermediate Anesthetic Plan Anesthetic Plan: GA and Regional Block Disposition: Standard PACU
[2021-09-15 15:03] LABS: MRSA Nasal PCR NEGATIVE (Negative); SA Nasal PCR NEGATIVE (Negative)
[2021-09-22] VITALS (19 sets, daily range): BP systolic 105–164; BP diastolic 43–83; PULSE 61–99; RESP 15–20; TEMP 36.2–36.8; O2SAT 92–99
--- NOTE | ~2021-09-22 | XR_ITS ---
EXAMINATION: XR KNEE, RIGHT CLINICAL INFORMATION: Status post total right knee replacement. COMPARISON: 04/13/2021 left knee radiographs. TECHNIQUE: Two views of the right knee. FINDINGS: The patient is status post right knee arthroplasty showing good anatomic alignment and no evidence for hardware malfunction. There is no acute fracture or dislocation. Mild intra-articular and subcutaneous air is noted. Multiple skin eren overlie the anterior soft tissues. XR/XR knee RT 2V IMPRESSION: Postoperative changes without othersignificant abnormality
[2021-09-22 06:45] LABS: Hematocrit 34.5 % (37.0-47.0); Hemoglobin 10.9 g/dl (12.0-16.0)
[2021-09-22 06:54] LABS: COVID-19 Test Negative (Negative)
--- NOTE | 2021-09-22 06:56 | PHA.MEDREC ---
Pharmacy Consult ? Medication Reconciliation Pharmacy has reviewed the medication reconciliation completed by nursing. Doses were old and incorrect for quetiapine and buprenorphine patch. I updated the dose. I left lexapro and quetiapine 25 mg still unconfirmed as they were new prescription therefore patient may not have started them yet. Catrina Reyes, PharmD
--- NOTE | 2021-09-22 07:32 | MHC.SHP ---
Pre-Procedural Eval Section A Date of Service: 09/22/21 The patient is an INPATIENT: No Changes since office visit: Yes Patient answered all questions; No Cold of Flu in the past 2 weeks, No New Medical Problems and No Changes in Medication The History & Physical has been completed within 30 days and I have reviewed it.: Yes Section B Chief Complaint: RT TKA Allergies: Allergies Allergy/AdvReac Type Severity Reaction Status Date / Time Penicillins [PENICILLINS] Allergy Intermediate RASH Verified 09/17/21 09:15 Plan I have reviewed the history and physical and performed a pertinent physical examination on my patient. No changes have occurred unless specified.
--- NOTE | 2021-09-22 09:24 | P.BOP_ITS ---
Brief Operative Note Date of Service: 09/22/21 Pre-op diagnosis: Right knee OA Post-op diagnosis: same Procedure: Right TKA Implants: Janice Traithalon cruciate retaining press fit 05/20/12 Surgeon: Je Deras MD Anesthesia: GETA and regional Was an Postal Sorting Officer used for this Procedure?: Yes Postal Sorting Officer: Luanne Menjivar Estimated blood loss (mL): 100 IV fluids (mL): 1,000 Pathology: other Condition: stable Disposition: PACU
[2021-09-22] MEDS: fentaNYL citrate/PF 100 MCG/2 ML VIAL 25 MCG IVPUSH ×4 (09:30→09:45)
--- NOTE | 2021-09-22 09:31 | P.OP_ITS ---
Operative Note Operative Note Date of Service: 09/22/21 Narrative: Date of Service: 09/22/21 Pre-op diagnosis: Right knee OA Post-op diagnosis: same Procedure: Right TKA Implants: [place] Kartikhalon cruciate retaining press fit //13cs/29a Surgeon: Je Deras MD Anesthesia: GETA and regional Was an Student Support Services Director used for this Procedure?: Yes Student Support Services Director: Luanne Menjivar Estimated blood loss (mL): 100 IV fluids (mL): 1,000 Pathology: other Condition: stable Disposition: PACU Procedure in detail: The patient was brought to the operating room and prepped and draped in standard sterile fashion. A time-out was called to identify proper site proper procedure proper surgeon and IV antibiotics were administered. 1 g of IV tranexamic acid was administered. I began by making a midline incision to the retinaculum and performed a medial parapatellar arthrotomy. The patella was translated laterally and the knee was flexed up. The medial and anterior compartments were severely affected. I performed a small medial peel and resected the infrapatellar fat pad. Thomas's line was then used to drill my intramedullary femoral guide and my distal femur cut of 12mm was made in 5 degrees of valgus while protecting the soft tissues. I then measured a # 2 femur and placed my cutting guide and made my anterior posterior and chamfer cuts protecting the soft tissues at all times. Once I was satisfied with my cuts I turned my attention to the tibia. I removed the meniscus medially and laterally and , using an external cutting guide, in line with the tibial crest and the third ray, I made my distal tibial cut in 3 deg slope of while protecting the PCL the posterior soft tissues at all times. An extension block was used to confirm appropriate amount of bony resection. I then sized a #2 tibia and once I was satisfied that there was complete tibial coverage I placed my trial and with the trial femur in place took the knee through range of motion. I was satisfied with the extension and flexion as well as the stability at 0, 30 and 90 degrees. I then turned my attention to the patella where I removed 1 cm from the undersurface of the patella and then trialed a 29a patellar button. Again the knee was taken through range of motion I was satisfied with the tracking. I then returned to the femur and drilled my femoral lug holes and prepared the tibia. A femoral bone plug was placed and the knee was irrigated copiously. I then press fit the patella, tibia and femur in standard fashion. I trialed different inserts until I selected a #13 insert. The final insert was placed and a 3 minutes iodine soak with local TXA was performed. A Werewolf cautery wand was used to maintain hemostasis over the capsule and meniscal beds, the gutters and peripatellar soft tissues. The knee was then closed with a running Quill suture, a 3 0 Vicryl and eren on the skin. Patient was then placed in sterile dressing and brought to recovery room in stable condition there were no known complications.
[2021-09-22] MEDS: HYDROmorphone HCl 0.5 MG/0.5 ML SYRINGE 0.25 MG IVPUSH ×4 (09:50→10:15)
[2021-09-22] MEDS: oxyCODONE HCl Immed Release 5 MG TABLET 10 MG PO ×3 (09:50→21:14)
[2021-09-22] MEDS: Lactated Ringers 1,000 ML 100 ML IVCONT ×2 (10:02→20:10)
[2021-09-22] MEDS: HYDROmorphone HCl 1 MG/ML SYRINGE 0.25 MG IVPUSH (13:41)
--- NOTE | 2021-09-22 14:55 | P.CONHOSP_ITS ---
History of Present Illness Data of Consult Service Date: 09/22/21 Requesting physician: Je Deras Primary Care Provider: Curt Falk MD HPI 66-year-old woman with history of asthma, GERD, coronary artery disease status post total knee arthroplasty. At this point she is hemodynamically stable. She does have a moderate amount of pain but so far controlled. She has been able to eat and drink without any nausea or vomiting. She has no other acute medical complaints and is currently resting in bed comfortably. Review of Systems Review of Systems: Denies any recent fever chills or decrease in appetite respiratory denies any shortness of breath coverage production cardiovascular denies chest pain gastrointestinal denies any dysphagia abdominal pain nausea vomiting or diarrhea genitourinary denies any dysuria frequency or hematuria musculoskeletal denies any joint pain or swelling neuropsych denies any weakness or seizures all other systems reviewed are negative [facility] Medical History (Updated 09/22/21 @ 14:56 by Lacy Romero NP) KAMILA positive Anxiety Arthralgia Asthma Benign essential hypertension CAD (coronary artery disease) Chronic interstitial cystitis Depression Dyspnea Esophageal stricture Foot pain, bilateral GERD (gastroesophageal reflux disease) Insomnia Irritable bowel syndrome (IBS) Left lumbar radiculopathy Lumbar spondylosis Obesity (BMI 30-39.9) BRIDGETTE (obstructive sleep apnea) Osteoarthritis Pure hypercholesterolemia Urticaria Vitamin D deficiency Family History Father Hypertension Mother Hypertension Diabetes CVD (cardiovascular disease) Daughter No problems noted. Family/Other FH: mental illness Other Mental health problem Substance abuse Surgical History History of cardiac catheterization History of colonoscopy History of nephrolithotomy with removal of calculi History of tooth extraction Hx of cystoscopy Status post balloon dilatation of esophageal stricture (~2005) Social History Housing: Apartment Are you a primary child care center assistant director to a significant other at home: No Do you presently have visiting nurse or other home services: No Alcohol intake: never Patient Tobacco Use Status: Never used Tobacco e-Cigarette/Vaping Use: Never Used Second Hand Smoke Exposure: No Use of substances other than those prescribed or required for medical reasons: No Currently Displaying Signs/Symptoms of Drug Intoxication Withdrawal: No Have you been hit, kicked, punched, or otherwise hurt by someone within the past year? If so, by whom?: No Are you DNR?: No Advance Directives: No Advance Directives Information Provided: Yes (Info Given) Advance Directives on File: No Recently lost weight without trying: No Eating poorly because of decreased appetite: No Nutrition Risks: No Nutritional Risk Patient : No : No Poor oral hygiene: Yes (full Dentures) service: No Current occupational status: disabled Cognitive needs: No Hearing needs: No Vision needs: Yes Meds Allergies Allergy/AdvReac Type Severity Reaction Status Date / Time Penicillins [PENICILLINS] Allergy Intermediate RASH Verified 09/17/21 09:15 Active Medications: Current Medications Acetaminophen (Acetaminophen 325 Mg Tablet) 650 mg PO Q6H PRN PRN Reason: Pain, Mild (Pain Scale 1-3) Aspirin (Aspirin 325 Mg Tablet) 325 mg PO BID [facility] Celecoxib (Celecoxib 200 Mg Capsule) 200 mg PO BID [facility] Docusate Sodium (Docusate Sodium 100 Mg Capsule) 100 mg PO BID [facility] Hydromorphone HCl (Hydromorphone Hcl 1 Mg/Ml Syringe) 0.25 mg IVPUSH Q4H PRN; Protocol PRN Reason: Pain, Severe (Pain Scale 7-10) Last Admin: 09/22/21 13:41 Dose: 0.25 mg Documented by: Lactated Ringer's (Lr) 1,000 mls @ 100 mls/hr IVCONT .Q10H DANIELLE Last Admin: 09/22/21 10:02 Dose: 100 mls/hr Documented by: Cefazolin Sodium/Dextrose (Ancef) 2 gm in 50 mls @ 100 mls/hr IV POSTOP [facility] Ondansetron HCl (Ondansetron Hcl 4 Mg/2 Ml Vial) 4 mg IVPUSH Q8H PRN PRN Reason: Nausea and Vomiting Oxycodone HCl (Oxycodone Hcl Immed Release 5 Mg Tablet) 10 mg PO Q4H PRN PRN Reason: Pain, Moderate (Pain Scale 4-6 Last Admin: 09/22/21 14:36 Dose: 10 mg Documented by: Oxycodone HCl (Oxycodone Hcl Er 10 Mg Tab.Er.12h) 10 mg PO BID [facility] Sodium Chloride (0.9 % Sodium Chloride Flush 3 Ml Syringe) 3 ml IVFLUSH QSHIFT [facility] Home Medications Medication Instructions Recorded Confirmed Last Taken Type dupilumab 300 mg/2 mL subcutaneous 300 mg SUBCUT Q2W 12/03/20 09/11/21 Unknown History pen injector (Dupixent) buspirone 7.5 mg tablet 7.5 mg PO BID 09/04/21 09/11/21 Unknown History escitalopram oxalate 10 mg tablet 10 mg PO DAILY 09/21/21 Unknown History meloxicam 15 mg tablet 15 mg PO DAILY 09/21/21 09/22/21 Unknown History quetiapine 25 mg tablet 25 mg PO BEDTIME 09/21/21 Unknown History buprenorphine 10 mcg/hour weekly 1 patch TOPICAL QWEEK 09/22/21 09/22/21 Unknown History transdermal patch quetiapine 100 mg tablet 1 tab PO BEDTIME 09/22/21 09/22/21 Unknown History Physical Exam Vital Signs and Narrative: Vital Signs: Last Vital Signs Temp 97.9 F 09/22/21 11:55 Pulse 61 09/22/21 14:17 Resp 18 09/22/21 11:55 BP 151/51 H 09/22/21 14:17 Pulse Ox 97 09/22/21 14:17 BMI result Body Mass Index 36.9 Appearing in no acute distress head is normocephalic atraumatic eyes pupils are PERRLA sclera is anicteric mouth throat mucous membranes are intact and moist neck is supple no lymphadenopathy, no JVD noted lung sounds are clear to auscultation heart regular rate rhythm, clear S1, S2 positive bowel sounds, abdomen is soft, nontender neuro patient is alert x3, no focal deficits Results Labs CBC and Chem 7: 09/22/21 06:24 08/25/21 11:39 Labs: Laboratory Results - last 24 hr 09/22/21 06:13 COVID-19 (ASAD) Negative COVID-19 Clin Com See Note Imaging Radiologist's Impressions: Impressions Knee X-Ray 09/22/21 10:55 IMPRESSION: Postoperative changes without othersignificant abnormality Assessment and Plan (1) Osteoarthritis of right knee: Status: Acute Plan 66-year-old woman admitted by Orthopedic surgery and is status post right total knee arthroplasty Right total knee arthroplasty Management as per surgical team Pain management Asthma Continue home medications GERD Continue PPI Mental health Continue home medications DVT prophylaxis as per surgical team Attending Dr. Preston Full code
[2021-09-22] MEDS: Morphine Sulfate 2 MG/ML CARTRIDGE IVPUSH (18:36)
[2021-09-22] MEDS: oxyCODONE HCl ER 10 MG TAB.ER.12H PO (20:09)
[2021-09-22] MEDS: Docusate Sodium 100 MG CAPSULE PO (20:09)
[2021-09-22] MEDS: HYDROmorphone HCl 0.5 MG/0.5 ML SYRINGE IVPUSH (22:11)
[2021-09-23] VITALS (10 sets, daily range): BP systolic 121–160; BP diastolic 48–59; PULSE 74–82; RESP 15–20; TEMP 35.9–37.2; O2SAT 94–95
[2021-09-23] MEDS: HYDROmorphone HCl 0.5 MG/0.5 ML SYRINGE IVPUSH ×7 (01:10→20:26)
[2021-09-23] MEDS: oxyCODONE HCl Immed Release 5 MG TABLET 10 MG PO (02:43)
[2021-09-23] MEDS: Lactated Ringers 1,000 ML 100 ML IVCONT ×2 (03:13→13:26)
[2021-09-23 06:31] LABS: MANUAL DIFF FLAG NO
[2021-09-23 06:45] LABS: Basophils Percent Auto 0.2 % (0-2); Eosinophils Absolute Auto 0.1 X10*3/uL (0.0-0.4); Eosinophils Percent Auto 0.5 % (0-4); Hematocrit 30.1 % (37.0-47.0); Hemoglobin 9.7 g/dl (12.0-16.0); Imm Gran Abs Auto 0.04 X10*3/uL (0.00-0.03); Imm Gran Pct Auto 0.4 % (0.0-0.4); Lymphocytes Absolute Auto 1.6 X10*3/uL (1.2-4.9); Lymphocytes Percent Auto 15.9 % (20-40); Mean Corpuscular HGB Conc 32.2 g/dl (31.0-35.0); Mean Corpuscular Hemoglobin 26.9 pg (27.0-33.0); Mean Corpuscular Volume 83.6 fL (80.0-98.0); Mean Platelet Volume 12.1 fL (9.4-12.3); Monocytes Absolute Auto 0.8 X10*3/uL (0.1-1.2); Monocytes Percent Auto 7.7 % (2-11); Neutrophils Absolute Auto 7.4 x10*3/uL (2.0-8.3); Neutrophils Percent Auto 75.3 % (45-73); Platelet Count 222 X10*3/uL (160-400); Red Cell Distribution Width 15.4 % (11.0-16.0); White Blood Count 9.8 X10*3/uL (4.8-10.8)
[2021-09-23 07:18] LABS: Anion Gap 12 (12-20); Blood Urea Nitrogen 11 mg/dL (9-16); Calcium 8.8 mg/dL (8.4-10.2); Carbon Dioxide 26 mmol/L (22-29); Chloride 106 mmol/L (96-108); Creatinine Clr Calc Pharmacy 63.9; Estimated Glomerular Filt Rate > 60; Glucose Fasting 108 mg/dL (60-99); Potassium 3.7 mmol/L (3.3-5.1); Sodium 140 mmol/L (135-145)
--- NOTE | 2021-09-23 08:00 | P.PNOP_ITS ---
Subjective Subjective Date of Service: 09/23/21 Interval history: Postop day 1 status post right total knee No overnight events She is resting comfortably in bed but complains of some pain which is not being relieved by medication Physical Exam Vital Signs: Vital Signs: Last Vital Signs Temp 97.6 F 09/23/21 03:30 Pulse 74 09/23/21 03:30 Resp 18 09/23/21 03:30 BP 129/54 L 09/23/21 03:30 Pulse Ox 95 09/23/21 03:30 O2 Del Method 09/23/21 03:30 O2 Flow Rate 2 09/22/21 23:47 BMI result Body Mass Index 36.9 Const: General: cooperative, healthy appearing and no acute distress Resp: Effort & Inspection: normal respiratory effort and able to speak in complete sentences Cardio: Rate: regular rate Peripheral pulses: Peripheral pulses 2+ throughout GI: Palpation (GI): Soft to palpation Skin: General skin exam: no rashes or lesions noted Extrem: Other: incision clean dry and intact. Liliya intact. No erythema or joint effusion. Calf supple nontender. Neurovascularly intact. Procedures Date of Service Date of Service: 09/23/21 Progress Note: A&P Assessment and plan (1) Status post total knee replacement, right: Status: Acute Assessment and Plan: * Continue pain mgmnt * Begin lovenox for dvt ppx * begin PT for RT TKA * Dispo planning-Pending PT eval, pain mgmnt Time Spent With Patient Time: Total time spent is greater than 50% in coordination of care (as documented) at patient's floor/unit and/or counseling patient: Quality Stroke Does the patient have a stroke diagnosis?: No VTE Prior VTE?: No VTE Risk Level:: Surgical - very high VTE Device Contraindication: N/A - Device Ordered VTE Drug Contraindication: N/A - Med Ordered
[2021-09-23] MEDS: Aspirin 325 MG TABLET PO ×2 (08:46→20:20)
[2021-09-23] MEDS: Celecoxib 200 MG CAPSULE PO ×2 (08:47→20:20)
[2021-09-23] MEDS: oxyCODONE HCl ER 10 MG TAB.ER.12H PO ×2 (08:47→20:21)
[2021-09-23] MEDS: Docusate Sodium 100 MG CAPSULE PO ×2 (08:47→21:42)
--- NOTE | 2021-09-23 09:33 | MHC.CM.PN ---
IMM 09/23, PT S/P R TKA, CM MET W/PT WHO IS A&O, PT LIVES ALONE HOWEVER DTR BALJIT LIVES IN SAME BUILDING AND WILL HELP PT WHEN NEEDED, PT REPORT SHE USES A WALKER AND HAS GRAB BARS IN [place], PT REPORTS SHE WOULD LIKE TO D/C HOME W/SERVICES AND HAS NO PREFERENCE OF VNA, REFERRAL SENT TO [facility]. PCP VERIFIED BECKY CAT, PFIZER X2, PT EDUCATED ON AND COMPLETED A HCP W/CM NAMING DTR BALJIT BARBER [phone] HER [facility] W/NO ALTERNATE CHOSEN. D/C PLAN: HOME W/[facility] W/[facility], FAMILY FOR TRANSPORT
--- NOTE | 2021-09-23 10:43 | P.PNIM_ITS ---
Subjective Subjective Date of Service: 09/23/21 Interval History: cc: right knee pain interval history:ongoing pain post op Cardiovascular Cardiovascular: Reports no additional cardiovascular complaints Respiratory Respiratory: Reports no additional respiratory complaints Physical Exam Vital Signs: Vital Signs: Last Vital Signs Temp 97.0 F 09/23/21 08:00 Pulse 82 09/23/21 08:41 Resp 20 09/23/21 08:00 BP 121/48 L 09/23/21 08:41 Pulse Ox 95 09/23/21 08:41 O2 Del Method 09/23/21 08:00 O2 Flow Rate 2 09/22/21 23:47 BMI result Body Mass Index 36.9 General: AO X 3, in pain Resp: CTA bilateral, no accessory muscles used CVS: S1,S2,RRR GI: soft, non tender, non distended Neuro: motor grossly intact, alert Psych: appropriate affect, appropriate insight Objective Data Active Medications Aspirin (Aspirin 325 Mg Tablet) 325 mg PO BID [facility] Last Admin: 09/23/21 08:46 Dose: 325 mg Documented By: JOSELYN Celecoxib (Celecoxib 200 Mg Capsule) 200 mg PO BID [facility] Last Admin: 09/23/21 08:47 Dose: 200 mg Documented By: JOSELYN Docusate Sodium (Docusate Sodium 100 Mg Capsule) 100 mg PO BID [facility] Last Admin: 09/23/21 08:47 Dose: 100 mg Documented By: JOSELYN Hydromorphone HCl (Hydromorphone Hcl 0.5 Mg/0.5 Ml Syringe) 0.5 mg IVPUSH Q3H [facility]; Protocol Last Admin: 09/23/21 10:02 Dose: 0.5 mg Documented By: JOSELYN Lactated Ringer's (Lr) 1,000 mls @ 100 mls/hr IVCONT .Q10H [facility] Last Admin: 09/23/21 03:13 Dose: 100 mls/hr Documented By: SKY Cefazolin Sodium/Dextrose (Ancef) 2 gm in 50 mls @ 100 mls/hr IV POSTOP DANIELLE Acetaminophen (Ofirmev) 1,000 mg in 100 mls @ 400 mls/hr IV Q6H [facility] Last Infusion: 09/23/21 10:20 Dose: 0 mls/hr Documented By: JOSELYN Ondansetron HCl (Ondansetron Hcl 4 Mg/2 Ml Vial) 4 mg IVPUSH Q8H PRN PRN Reason: Nausea and Vomiting Oxycodone HCl (Oxycodone Hcl Immed Release 5 Mg Tablet) 10 mg PO Q4H PRN PRN Reason: Pain, Moderate (Pain Scale 4-6 Last Admin: 09/23/21 02:43 Dose: 10 mg Documented By: SKY Oxycodone HCl (Oxycodone Hcl Er 10 Mg Tab.Er.12h) 10 mg PO BID [facility] Last Admin: 09/23/21 08:47 Dose: 10 mg Documented By: JOSELYN Sodium Chloride (0.9 % Sodium Chloride Flush 3 Ml Syringe) 3 ml IVFLUSH QSHIFT [facility] Last Admin: 09/23/21 08:47 Dose: Not Given Documented By: JOSELYN Non-Admin Reason: IV Running Labs CBC & Chem 7: 09/23/21 04:37 09/23/21 04:37 Labs: Laboratory Results - last 24 hr 09/23/21 09/23/21 04:37 04:37 MCV 83.6 MCH 26.9 L MCHC 32.2 RDW 15.4 Plt Count 222 MPV 12.1 Immature Gran % (Auto) 0.4 Neut % (Auto) 75.3 H Lymph % (Auto) 15.9 L [place] % (Auto) 7.7 Eos % (Auto) 0.5 Baso % (Auto) 0.2 Lymph # (Auto) 1.6 [place] # (Auto) 0.8 Eos # (Auto) 0.1 Baso # (Auto) 0.0 Abs Immat Gran (auto) 0.04 H Absolute Neuts (auto) 7.4 Absolute Nucleated RBC 0.000 Nucleated RBC % (auto) 0.0 Anion Gap 12 Estim Creat Clear Calc 63.9 Estimated GFR > 60 Fasting Glucose 108 H Calcium 8.8 D Assessment and Plan (1) Status post total knee replacement, right: Status: Acute Plan 66F admitted s/p right tka Right total knee arthroplasty POD1 Management as per surgical team Pain management moderate persistent Asthma stable, continue breo, albuterol as needed GERD Continue PPI mood disorder seroquel CAD asa obesity weight loss DVT prophylaxis asa Full code Quality Stroke Does the patient have a stroke diagnosis?: No VTE Prior VTE?: No VTE Risk Level:: Surgical - very high VTE Device Contraindication: N/A - Device Ordered VTE Drug Contraindication: N/A - Med Ordered
--- NOTE | 2021-09-23 11:27 | HO.POSTANES ---
Post Anesthesia Evaluation Post Anesthesia Evaluation Vital Signs: Vital Signs Temp Pulse Resp BP Pulse Ox O2 Del Method O2 Flow Rate 09/23/21 08:41 82 121/48 L 95 09/23/21 08:00 97.0 F 82 20 121/48 L 95 Room Air 09/23/21 03:30 97.6 F 74 18 129/54 L 95 Room Air 09/22/21 23:47 97.4 F 87 18 127/58 L 94 Nasal Cannula 2 Anesthesia: Nerve Block and General Mental Status: Awake Pain Control: Satisfactory (ongoing pain difficult to control due to patients history) Nausea/Vomiting: None Hydration: Adequate Anesthesia-Related Issues: No Anes. Related Issues
[2021-09-23] MEDS: ondansetron HCL 4 MG/2 ML VIAL IVPUSH (20:19)
[2021-09-23] MEDS: QUEtiapine Fumarate 100 MG TABLET PO (20:21)
[2021-09-23] MEDS: 0.9 % Sodium Chloride Flush 3 ML SYRINGE IVFLUSH (20:22)
[2021-09-24] VITALS (9 sets, daily range): BP systolic 124–179; BP diastolic 57–77; PULSE 74–85; RESP 16–18; TEMP 36.4–37.6; O2SAT 93–98
[2021-09-24] MEDS: Lactated Ringers 1,000 ML 100 ML IVCONT (00:12)
[2021-09-24] MEDS: HYDROmorphone HCl 0.5 MG/0.5 ML SYRINGE IVPUSH ×7 (03:41→20:50)
[2021-09-24] MEDS: Omeprazole 40 MG CAPSULE.DR PO (05:40)
[2021-09-24 06:01] LABS: MANUAL DIFF FLAG NO
[2021-09-24 06:09] LABS: Basophils Percent Auto 0.3 % (0-2); Eosinophils Absolute Auto 0.3 X10*3/uL (0.0-0.4); Eosinophils Percent Auto 3.7 % (0-4); Hematocrit 27.4 % (37.0-47.0); Hemoglobin 8.7 g/dl (12.0-16.0); Imm Gran Abs Auto 0.04 X10*3/uL (0.00-0.03); Imm Gran Pct Auto 0.5 % (0.0-0.4); Lymphocytes Absolute Auto 1.3 X10*3/uL (1.2-4.9); Lymphocytes Percent Auto 16.2 % (20-40); Mean Corpuscular HGB Conc 31.8 g/dl (31.0-35.0); Mean Corpuscular Hemoglobin 26.4 pg (27.0-33.0); Mean Platelet Volume 11.6 fL (9.4-12.3); Monocytes Absolute Auto 0.5 X10*3/uL (0.1-1.2); Monocytes Percent Auto 6.5 % (2-11); Neutrophils Absolute Auto 5.7 x10*3/uL (2.0-8.3); Neutrophils Percent Auto 72.8 % (45-73); Platelet Count 150 X10*3/uL (160-400); Red Cell Distribution Width 15.5 % (11.0-16.0); White Blood Count 7.8 X10*3/uL (4.8-10.8)
[2021-09-24 06:21] LABS: Anion Gap 10 (12-20); Blood Urea Nitrogen 9 mg/dL (9-16); Calcium 8.4 mg/dL (8.4-10.2); Carbon Dioxide 28 mmol/L (22-29); Chloride 109 mmol/L (96-108); Creatinine Clr Calc Pharmacy 73.7; Estimated Glomerular Filt Rate > 60; Glucose Fasting 94 mg/dL (60-99); Potassium 3.7 mmol/L (3.3-5.1); Sodium 143 mmol/L (135-145)
[2021-09-24] MEDS: Fluticasone/Vilanterol 200/25 BLST.W.DEV 1 PUFF INHALE (08:06)
--- NOTE | 2021-09-24 08:34 | PM.PNORT ---
Subjective Subjective Date of Service: 09/24/21 Interval history: POD2 s/p RTKA. Patient is resting in bed comfortably. No overnight events. Pain is well managed. No additional complaints. Physical Exam Vital Signs: Vital Signs: Last Vital Signs Temp 99.3 F 09/24/21 07:49 Pulse 74 09/24/21 08:32 Resp 18 09/24/21 08:07 BP 142/57 H 09/24/21 07:49 Pulse Ox 94 09/24/21 07:49 O2 Del Method 09/24/21 07:49 O2 Flow Rate 2 09/22/21 23:47 BMI result Body Mass Index 36.9 Const: General: cooperative, healthy appearing and no acute distress Resp: Effort & Inspection: normal respiratory effort and able to speak in complete sentences Cardio: Rate: regular rate Peripheral pulses: Peripheral pulses 2+ throughout GI: Palpation (GI): Soft to palpation Skin: Lesions: no lesions Rashes: no rashes Extrem: Other: Rt knee Aquacel dressing changed. Liliya itact. No erythema or drainage. Patient is able to dorsiflex and plantarflex. NVI. Procedures Date of Service Date of Service: 09/24/21 Progress Note: A&P Assessment and plan (1) Status post total knee replacement, right: Status: Acute Assessment and Plan: Continue pain mgmnt Continue ASA for dvt ppx Continue PT for RTKA- WBAT Dispo planning-Pending PT eval, pain mgmnt Time Spent With Patient Time: Total time spent is greater than 50% in coordination of care (as documented) at patient's floor/unit and/or counseling patient: Quality Stroke Does the patient have a stroke diagnosis?: No VTE Prior VTE?: No VTE Risk Level:: Surgical - very high VTE Device Contraindication: N/A - Device Ordered VTE Drug Contraindication: N/A - Med Ordered
--- NOTE | 2021-09-24 08:38 | PM.DS ---
DS: Providers Provider Date of Service: 09/24/21 Date of admission: 09/22/21 06:17 Primary care physician: Curt Falk MD Consults: 09/22/21 13:16 Consult to Hospitalist Routine Consulting Provider: Hospitalist Reason For Exam: medical management DS: Diagnosis Discharge Diagnosis (1) Status post total knee replacement, right: Status: Acute DS: Summary Hospital Course Hospital Course: The patient underwent a successful right total knee arthroplasty, they were transferred to PACU and then to the floor to recover. During their stay, their vitals were stable, afebrile at 97.5. Labs were unremarkable, H/H 8.7/27.4. POD 1 they were started on Aspirin 325mg po bid for DVT ppx, they also received Physical Therapy services twice a day. Prior to discharge, their dressing was changed, incision clean dry and intact, new Aquacel dressing applied and the plan was to be discharged home with VNA services. Time Spent with Patient Time attestation: Total time spent providing and/or coordinating discharge services: Discharge coordination time: Less than 30 minutes Quality: Safe Use of Opioids Does Pt have an Active Cancer Diagnosis on the Problem List?: No Quality: Stroke Does the patient have a stroke diagnosis?: No Physical Exam Vital Signs: Vital Signs: Last Vital Signs Temp 99.3 F 09/24/21 07:49 Pulse 74 09/24/21 08:32 Resp 18 09/24/21 08:07 BP 142/57 H 09/24/21 07:49 Pulse Ox 94 09/24/21 07:49 O2 Del Method 09/24/21 07:49 O2 Flow Rate 2 09/22/21 23:47 BMI result Body Mass Index 36.9 Const: General: cooperative, healthy appearing and no acute distress Resp: Effort & Inspection: normal respiratory effort and able to speak in complete sentences Cardio: Rate: regular rate Peripheral pulses: Peripheral pulses 2+ throughout GI: Palpation (GI): Soft to palpation Skin: Lesions: no lesions Rashes: no rashes Extrem: Other: Rt knee Aquacel dressing changed. Richardson itact. No erythema or drainage. Patient is able to dorsiflex and plantarflex. NVI. DS: Data Data Completed and Pending Completed studies during hospitalization [Text1]: Pending at discharge 09/22/21 09:01 Surgical [PTH] Routine Labs on day of discharge: Laboratory Results - last 24 hr 09/24/21 09/24/21 05:26 05:26 WBC 7.8 RBC 3.30 L Hgb 8.7 L Hct 27.4 L MCV 83.0 MCH 26.4 L MCHC 31.8 RDW 15.5 Plt Count 150 L D MPV 11.6 Immature Gran % (Auto) 0.5 H Neut % (Auto) 72.8 Lymph % (Auto) 16.2 L [place] % (Auto) 6.5 Eos % (Auto) 3.7 Baso % (Auto) 0.3 Lymph # (Auto) 1.3 [place] # (Auto) 0.5 Eos # (Auto) 0.3 Baso # (Auto) 0.0 Abs Immat Gran (auto) 0.04 H Absolute Neuts (auto) 5.7 Absolute Nucleated RBC 0.000 Nucleated RBC % (auto) 0.0 Sodium 143 Potassium 3.7 Chloride 109 H Carbon Dioxide 28 Anion Gap 10 L BUN 9 Creatinine 0.72 Estim Creat Clear Calc 73.7 Estimated GFR > 60 Fasting Glucose 94 Calcium 8.4 Discharge Plan Discharge Patient Disposition: Home Health Service Discharge Diagnosis: s/p RT TKA Referrals: Luanne Menjivar PA-C [Physician [employer] [facility]] - 2 Weeks (10/08/21 12:30 [facility] [place] Orthopedic Surgeons Luanne Menjivar PA-C) Discharge Medications: New docusate sodium 100 mg capsule 100 mg PO BID 14 Days Qty: 28 0RF oxycodone 10 mg tablet 10 mg PO Q4H PRN (Reason: Pain, Moderate (Pain Scale 4-6) 7 Days Qty: 42 0RF Rx Instructions: Partial Fill upon patient request. celecoxib 200 mg Capsule 200 mg PO BID 30 Days Qty: 60 0RF aspirin 325 mg Tablet 325 mg PO BID 42 Days Qty: 84 0RF acetaminophen 325 mg tablet 650 mg PO Q6H PRN (Reason: Pain, Mild (Pain Scale 1-3)) 30 Days Qty: 240 0RF Continued (DME) blood pressure kit-extra large Kit See Rx Instructions .Route Qty: 1 0RF Rx Instructions: As directed albuterol sulfate 90 mcg/actuation HFA aerosol inhaler 2 puff PO Q6H PRN (Reason: for wheezing) Qty: 8.5 5RF triamcinolone acetonide 0.5 % cream 1 appl topical DAILY Qty: 15 1RF omeprazole 40 mg capsule,delayed release(DR/EC) 40 mg PO DAILY Qty: 90 0RF ezetimibe 10 mg tablet 10 mg PO DAILY Qty: 90 1RF quetiapine 100 mg tablet 1 tab PO BEDTIME buprenorphine 10 mcg/hour patch weekly 1 patch topical QWEEK Dupixent Pen 300 mg/2 mL pen injector 300 mg subcut Q2W Narcan 4 mg/actuation spray,non-aerosol 4 mg intranasal Q3M PRN (Reason: opioid overdose) Qty: 2 0RF Rx Instructions: spray 1 dose into ONE nostril; alternate nostrils w each dose until help arrives buspirone 7.5 mg tablet 7.5 mg PO BID Breo Ellipta 200-25 mcg/dose blister with device 1 inh inhalation DAILY 30 Days Qty: 60 11RF montelukast 10 mg tablet 10 mg PO DAILY 30 Days Qty: 30 11RF escitalopram oxalate 10 mg tablet 10 mg PO DAILY quetiapine 25 mg tablet 25 mg PO BEDTIME mirabegron 50 mg tablet extended release 24 hr 50 mg PO DAILY 30 Days Qty: 30 1RF tizanidine 4 mg tablet 4 mg PO Q8H PRN (Reason: muscle spasticity) 30 Days Qty: 90 0RF Rx Instructions: Start at bedtime as medication can be sedating Discontinued meloxicam 15 mg tablet 15 mg PO DAILY oxycodone-acetaminophen [Percocet] 5-325 mg tablet 1 tab PO DAILY PRN (Reason: pain) 30 Days Qty: 30 0RF Rx Instructions: Partial Fill upon patient request. Ok to dispense with Butrans patch Discharge Orders: Discharge Order (Routine); Ordered 09/24/21 Ordered By: Luanne Menjivar Diet: regular diet Activity on Discharge: Use cane or walker Stand Alone Forms: Patient Portal Discharge page Care Plan Goals: Restore function of joint Health Concerns: none Plan of Treatment: Physical Therapy Pain management DVT prophylaxis Assessment: Physical Therapy for Total knee arthroplasty: WBAT, gait training, ROM 0-12, quad strength Limit stair climbing No showering, no tub bath-keep dressing clean, dry and intact No driving x6 weeks Continue Aspirin twice a day x 6 weeks Follow up with [facility] [place] Orthopedics in 2 weeks: --you will also have your first out patient PT eval on the day of your post op appt-so please plan on being in the office that day for an extended period of time.
[2021-09-24] MEDS: 0.9 % Sodium Chloride Flush 3 ML SYRINGE IVFLUSH ×3 (08:55→20:52)
[2021-09-24] MEDS: Docusate Sodium 100 MG CAPSULE PO ×2 (09:03→20:52)
[2021-09-24] MEDS: Mirabegron 50 MG TAB.ER.24H PO (09:03)
[2021-09-24] MEDS: Celecoxib 200 MG CAPSULE PO ×2 (09:03→20:51)
[2021-09-24] MEDS: Ezetimibe 10 MG TABLET PO (09:06)
[2021-09-24] MEDS: oxyCODONE HCl ER 10 MG TAB.ER.12H PO ×2 (09:06→20:51)
[2021-09-24] MEDS: Aspirin 325 MG TABLET PO ×2 (09:09→20:52)
--- NOTE | 2021-09-24 10:46 | HO.PM.IMPN ---
Subjective Subjective Date of Service: 09/24/21 Interval History: cc: knee pain interval history:pain better controlled today Cardiovascular Cardiovascular: Reports no additional cardiovascular complaints Respiratory Respiratory: Reports no additional respiratory complaints Physical Exam Vital Signs: Vital Signs: Last Vital Signs Temp 99.3 F 09/24/21 07:49 Pulse 74 09/24/21 08:32 Resp 18 09/24/21 08:07 BP 142/57 H 09/24/21 07:49 Pulse Ox 94 09/24/21 07:49 O2 Del Method 09/24/21 07:49 O2 Flow Rate 2 09/22/21 23:47 BMI result Body Mass Index 36.9 General: AO X 3, no acute distress Resp: CTA bilateral, no accessory muscles used CVS: S1,S2,RRR GI: soft, non tender, non distended Neuro: motor grossly intact, alert Psych: appropriate affect, appropriate insight Objective Data Active Medications Albuterol Sulfate (Albuterol Sulfate 90 Mcg 8 Gm Inhaler) 2 puff INHALE Q6H PRN PRN Reason: for wheezing Aspirin (Aspirin 325 Mg Tablet) 325 mg PO BID [facility] Last Admin: 09/24/21 09:09 Dose: 325 mg Documented By: KIRTI Buspirone HCl (Buspirone Hcl 5 Mg Tablet) 7.5 mg PO BID [facility] Last Admin: 09/24/21 09:14 Dose: Not Given Documented By: KIRTI Non-Admin Reason: Patient Refused Celecoxib (Celecoxib 200 Mg Capsule) 200 mg PO BID [facility] Last Admin: 09/24/21 09:03 Dose: 200 mg Documented By: KIRTI Docusate Sodium (Docusate Sodium 100 Mg Capsule) 100 mg PO BID [facility] Last Admin: 09/24/21 09:03 Dose: 100 mg Documented By: KIRTI Ezetimibe (Ezetimibe 10 Mg Tablet) 10 mg PO DAILY [facility] Last Admin: 09/24/21 09:06 Dose: 10 mg Documented By: KIRTI Fluticasone/Vilanterol (Fluticasone/Vilanterol 200/25 Blst.W.Dev) 1 puff INHALE RDAILY [facility] Last Admin: 09/24/21 08:06 Dose: 1 puff Documented By: KENAN Hydromorphone HCl (Hydromorphone Hcl 0.5 Mg/0.5 Ml Syringe) 0.5 mg IVPUSH Q3H [facility]; Protocol Last Admin: 09/24/21 10:32 Dose: 0.5 mg Documented By: HETAL Cefazolin Sodium/Dextrose (Ancef) 2 gm in 50 mls @ 100 mls/hr IV POSTOP DANIELLE Acetaminophen (Ofirmev) 1,000 mg in 100 mls @ 400 mls/hr IV Q6H [facility] Last Infusion: 09/24/21 09:30 Dose: 0 mls/hr Documented By: HETAL Mirabegron (Mirabegron 50 Mg Tab.Er.24h) 50 mg PO DAILY [facility] Last Admin: 09/24/21 09:03 Dose: 50 mg Documented By: KIRTI Omeprazole (Omeprazole 40 Mg Capsule.Dr) 40 mg PO DAILY@0630 [facility] Last Admin: 09/24/21 05:40 Dose: 40 mg Documented By: THANG Ondansetron HCl (Ondansetron Hcl 4 Mg/2 Ml Vial) 4 mg IVPUSH Q8H PRN PRN Reason: Nausea and Vomiting Last Admin: 09/23/21 20:19 Dose: 4 mg Documented By: THANG Oxycodone HCl (Oxycodone Hcl Immed Release 5 Mg Tablet) 10 mg PO Q4H PRN PRN Reason: Pain, Moderate (Pain Scale 4-6 Last Admin: 09/23/21 02:43 Dose: 10 mg Documented By: SKY Oxycodone HCl (Oxycodone Hcl Er 10 Mg Tab.Er.12h) 10 mg PO BID [facility] Last Admin: 09/24/21 09:06 Dose: 10 mg Documented By: KIRTI Quetiapine Fumarate (Quetiapine Fumarate 100 Mg Tablet) 100 mg PO BEDTIME [facility] Last Admin: 09/23/21 20:21 Dose: 100 mg Documented By: THANG Sodium Chloride (0.9 % Sodium Chloride Flush 3 Ml Syringe) 3 ml IVFLUSH QSHIFT [facility] Last Admin: 09/24/21 08:55 Dose: 3 ml Documented By: KIRTI Labs CBC & Chem 7: 09/24/21 05:26 09/24/21 05:26 Labs: Laboratory Results - last 24 hr 09/24/21 09/24/21 05:26 05:26 MCV 83.0 MCH 26.4 L MCHC 31.8 RDW 15.5 Plt Count 150 L D MPV 11.6 Immature Gran % (Auto) 0.5 H Neut % (Auto) 72.8 Lymph % (Auto) 16.2 L [place] % (Auto) 6.5 Eos % (Auto) 3.7 Baso % (Auto) 0.3 Lymph # (Auto) 1.3 [place] # (Auto) 0.5 Eos # (Auto) 0.3 Baso # (Auto) 0.0 Abs Immat Gran (auto) 0.04 H Absolute Neuts (auto) 5.7 Absolute Nucleated RBC 0.000 Nucleated RBC % (auto) 0.0 Anion Gap 10 L Estim Creat Clear Calc 73.7 Estimated GFR > 60 Fasting Glucose 94 Calcium 8.4 Assessment and Plan (1) Status post total knee replacement, right: Status: Acute Plan 66F admitted s/p right tka Right total knee arthroplasty POD2 Management as per surgical team moderate persistent Asthma stable, continue breo, albuterol as needed GERD Continue PPI mood disorder seroquel CAD asa obesity weight loss DVT prophylaxis asa Full code appears medically stable, will sign off for now, please recall if needed Quality Stroke Does the patient have a stroke diagnosis?: No VTE Prior VTE?: No VTE Risk Level:: Surgical - very high VTE Device Contraindication: N/A - Device Ordered VTE Drug Contraindication: N/A - Med Ordered
--- NOTE | 2021-09-24 11:01 | MHC.CM.PN ---
EMR REVIEWED, PT RESISTANT TO D/C HOME TODAY D//T DTR NOT STAYING W/HER, DTR IS ON THE SAME FLOOR PT HOWEVER DTR NOT WILLING TO STAY IN APT W/PT, CM SPOKE W/DTR AND DTR REPORTED SHE WOULD HELP PT IF SHE HAD TO, PT AWARE DTR WILL HELP HER AT HOME HOWEVER CONT'S TO REPORTS SHE'S AFRAID TO GO HOME, CM SPOKE W/ORTHO AND THEY ARE AGREEABLE FOR PT TO STAY ONE MORE NIGHT. PT AND DTR MARK [phone] AWARE AND MARK REPORTS SHE WILL PICK HER UP TOMORROW 09/25 AT 11AM. [facility] UPDATED VIA [facility]
[2021-09-24] MEDS: QUEtiapine Fumarate 100 MG TABLET PO (20:51)
[2021-09-25] VITALS: BP 113/53; PULSE 76; RESP 17; TEMP 36.4; O2SAT 94
[2021-09-25] MEDS: HYDROmorphone HCl 0.5 MG/0.5 ML SYRINGE IVPUSH ×2 (02:53→08:18)
[2021-09-25 04:00] VITALS: BP 138/62; PULSE 77; RESP 18; TEMP 36.5; O2SAT 97
[2021-09-25] MEDS: Omeprazole 40 MG CAPSULE.DR PO (05:52)
[2021-09-25 06:30] LABS: MANUAL DIFF FLAG NO
[2021-09-25 06:36] LABS: Basophils Absolute Auto 0.1 X10*3/uL (0.0-0.2); Basophils Percent Auto 0.7 % (0-2); Eosinophils Absolute Auto 0.5 X10*3/uL (0.0-0.4); Eosinophils Percent Auto 7.1 % (0-4); Hemoglobin 8.8 g/dl (12.0-16.0); Imm Gran Abs Auto 0.03 X10*3/uL (0.00-0.03); Imm Gran Pct Auto 0.4 % (0.0-0.4); Lymphocytes Absolute Auto 1.6 X10*3/uL (1.2-4.9); Lymphocytes Percent Auto 20.3 % (20-40); Mean Corpuscular HGB Conc 31.4 g/dl (31.0-35.0); Mean Corpuscular Hemoglobin 26.4 pg (27.0-33.0); Mean Corpuscular Volume 84.1 fL (80.0-98.0); Mean Platelet Volume 12.1 fL (9.4-12.3); Monocytes Absolute Auto 0.4 X10*3/uL (0.1-1.2); Monocytes Percent Auto 5.1 % (2-11); Neutrophils Absolute Auto 5.1 x10*3/uL (2.0-8.3); Neutrophils Percent Auto 66.4 % (45-73); Platelet Count 179 X10*3/uL (160-400); Red Blood Count 3.33 X10*6/uL (4.20-5.50); Red Cell Distribution Width 15.5 % (11.0-16.0); White Blood Count 7.6 X10*3/uL (4.8-10.8)
[2021-09-25 07:05] LABS: Anion Gap 11 (12-20); Blood Urea Nitrogen 10 mg/dL (9-16); Calcium 8.4 mg/dL (8.4-10.2); Carbon Dioxide 28 mmol/L (22-29); Chloride 108 mmol/L (96-108); Creatinine Clr Calc Pharmacy 72.7; Estimated Glomerular Filt Rate > 60; Glucose Fasting 89 mg/dL (60-99); Potassium 3.6 mmol/L (3.3-5.1); Sodium 143 mmol/L (135-145)
--- NOTE | 2021-09-25 07:10 | MHC.CM.PN ---
PT DISCHARGING HOME W/[facility] FOR SN/ HOME OT/PT, PT'S DTR/HCP [facility] WILL TRANSPORT PT AT 11AM.
[2021-09-25] MEDS: Fluticasone/Vilanterol 200/25 BLST.W.DEV 1 PUFF INHALE (07:34)
[2021-09-25 07:35] VITALS: PULSE 72; RESP 18; O2SAT 97
--- NOTE | 2021-09-25 07:39 | W.MHC.F2F ---
Service Date Service Date: 09/25/21 Encounter Date of encounter: 09/25/21 Reasons for Services Signs and symptoms assessed: Pt. is considered homebound due to recent surgery. Unable to drive, poor balance, poor gait mechanics. Reason for physical therapy: home safety and mobility, therapeutic exercises, restore joint function, gait/transfer training, assess need for DME and ADL training Reason for occupational therapy: home safety and mobility, therapeutic exercises, restore joint function, gait/transfer training, assess need for DME and ADL training Homebound: Leaving the home is medically contraindicated at this time without the asist of a device and/or another person due th the listed conditions above and below. Reason homebound: unsteady gait / fall risk, leg weakness, pain with ambulation, pain with transfers, poor balance / fall risk and unable to drive Homebound supporting statement: Pt. is considered homebound due to recent surgery. Unable to drive, poor balance, poor gait mechanics. Certification: Based on the above findings, I certify that this patient is confined to the home and needs intermittent longterm care, physical therapy and/or speech therapy, or continues to need occupational therapy. The patient is under my care, and I have initiated the establishment of the plan of care. The patient will be followed by a physician who will periodically review the plan of care.
[2021-09-25 07:52] VITALS: BP 150/68; PULSE 57; RESP 17; TEMP 36.7; O2SAT 96
[2021-09-25] MEDS: Docusate Sodium 100 MG CAPSULE PO (08:18)
[2021-09-25] MEDS: oxyCODONE HCl ER 10 MG TAB.ER.12H PO (08:18)
[2021-09-25] MEDS: Ezetimibe 10 MG TABLET PO (08:18)
[2021-09-25] MEDS: Aspirin 325 MG TABLET PO (08:19)
[2021-09-25] MEDS: Mirabegron 50 MG TAB.ER.24H PO (08:19)
[2021-09-25] MEDS: 0.9 % Sodium Chloride Flush 3 ML SYRINGE IVFLUSH (08:20)
[2021-09-25] MEDS: Celecoxib 200 MG CAPSULE PO (08:20)
[2021-09-25 09:55] VITALS: BP 150/68; PULSE 57; O2SAT 96
== END 2021-09-25 11:30 | disposition home health service (06) | DRG 470 ==
LOC: HO.SSSA 06:30 → HO.S3 12:07
PROVIDERS: Physician Assistant; Admitting Provider Orthopaedic Surgery; PCP Internal Medicine; Visit Provider Orthopaedic Surgery
PROC: 0SRC0JA Replacement of Right Knee Joint with Synthetic Substitute, Uncemented, Open Approach (ICD-10-PCS; CPT 27447; principal; 2021-09-22 07:30)
DX: M17.11 Unilateral primary osteoarthritis, right knee (principal); I25.10 Atherosclerotic heart disease of native coronary artery without angina pectoris; F39 Unspecified mood [affective] disorder; E66.9 Obesity, unspecified; Z68.36 Body mass index [BMI] 36.0-36.9, adult; J45.40 Moderate persistent asthma, uncomplicated; K21.9 Gastro-esophageal reflux disease without esophagitis; G47.33 Obstructive sleep apnea (adult) (pediatric); Z87.442 Personal history of urinary calculi; Z88.0 Allergy status to penicillin; Z79.51 Long term (current) use of inhaled steroids; Z79.899 Other long term (current) drug therapy
CPT/HCPCS: 36415; 73560; 80048; 85014; 85018; 85025; 86850; 86900; 86901; 87635; 87640; 87641; 88305; 88311; 93005; 94640; 94664; 97110; 97116; 97162; 97530; C1776; J0131; J0690; J1100; J1170; J2250; J2270; J2405; J2795; J3010

== ENCOUNTER → 2021-10-20 12:47 | Outpatient (BNVA) | payer OTHER, SELFPAY | PROVIDERS: PCP Internal Medicine; Visit Provider Nurse Practitioner Family | DX: G89.4 Chronic pain syndrome (principal); M47.27 Other spondylosis with radiculopathy, lumbosacral region; M17.0 Bilateral primary osteoarthritis of knee; Z79.891 Long term (current) use of opiate analgesic; Z96.651 Presence of right artificial knee joint | CPT/HCPCS: 99212 ==

== ENCOUNTER 2021-11-10 12:49 | Outpatient (REF) | payer OTHER, SELFPAY ==
--- NOTE | ~2021-11-10 | MM_ITS ---
EXAMINATION: MM SCREENING DIGITAL BREAST TOMOSYNTHESIS, BILATERAL CLINICAL INFORMATION: Screening. Asymptomatic. The lifetime risk of breast cancer based on the Tyrer-Cuzick Model is 3.6%. COMPARISON: Mammography: August 01, 2018 and July 13, 2018 TECHNIQUE: Digital breast tomosynthesis is performed in both the craniocaudal and mediolateral oblique views along with computer-aided detection (CAD). Synthesized 2D images are generated from the tomosynthesis. FINDINGS: The breasts are almost entirely fatty (ACR BI-RADS breast composition Category a). There are no significant masses, abnormal calcifications, or other abnormalities. MM/MM tomosynthesis screening BI IMPRESSION: There are no significant changes from prior study. ASSESSMENT: BI-RADS 1: Negative RECOMMENDATION: Routine annual mammography screening. This patient's information was entered into a reminder system with a target due date for their next mammogram.
== END 2021-11-10 12:50 | disposition home or self-care (01) ==
LOC: HO.MAMMO 12:49
PROVIDERS: PCP Internal Medicine; Visit Provider Internal Medicine
DX: Z12.31 Encounter for screening mammogram for malignant neoplasm of breast (principal)
CPT/HCPCS: 77063; 77067

== ENCOUNTER → 2021-11-17 12:47 | Outpatient (BNVA) | payer OTHER, SELFPAY | PROVIDERS: PCP Internal Medicine; Visit Provider Nurse Practitioner Family | DX: M47.816 Spondylosis without myelopathy or radiculopathy, lumbar region (principal); G89.4 Chronic pain syndrome; M17.12 Unilateral primary osteoarthritis, left knee; M47.27 Other spondylosis with radiculopathy, lumbosacral region; Z79.891 Long term (current) use of opiate analgesic; Z96.651 Presence of right artificial knee joint | CPT/HCPCS: 99212 ==

== ENCOUNTER 2021-12-01 09:27 | Outpatient (REF) | payer OTHER, SELFPAY ==
--- NOTE | ~2021-12-01 | FL_ITS ---
EXAMINATION: FL UPPER GI AIR-CONTRAST STUDY WITH BARIUM SWALLOW CLINICAL INFORMATION: Dysphagia. COMPARISON: None TECHNIQUE: Routine upper GI contrast study was performed in upright and lying position. Barium swallow with thick barium and barium-coated turkey was done in upright view. FINDINGS: Following oral administration of thick barium and effervescent granules, there is normal propagation of bolus from the oral cavity through the pharynx, esophagus into stomach without any evidence of obstruction, narrowing or stricture. No extrinsic compression seen. On placing patient supine and prone lying, the course, caliber and peristalsis of the stomach are normal. There is mild gastroesophageal reflux in right decubitus view. Soft tissues are normal. On oral administration of turkey-coated thick barium, there is normal propagation of bolus from the oral cavity through the pharynx into esophagus without any evidence of obstruction, narrowing or stricture. The course, caliber and peristalsis of the stomach and the duodenum are normal. The mucosal pattern is normal. FL/FL upper GI w Ba Swallow IMPRESSION: Widely patent esophagus without obstruction or narrowing. Mild gastroesophageal reflux without hiatal hernia. Otherwise, the rest of the upper GI exam is unremarkable. Fluoroscopy time: 2.1 minutes Dose area product: 21.925 Gy-cm2
[2021-12-01 10:38] LABS: MANUAL DIFF FLAG NO
[2021-12-01 10:46] LABS: Basophils Absolute Auto 0.1 X10*3/uL (0.0-0.2); Basophils Percent Auto 1.1 % (0-2); Eosinophils Absolute Auto 0.4 X10*3/uL (0.0-0.4); Imm Gran Abs Auto 0.03 X10*3/uL (0.00-0.03); Imm Gran Pct Auto 0.5 % (0.0-0.4); Lymphocytes Absolute Auto 1.3 X10*3/uL (1.2-4.9); Lymphocytes Percent Auto 19.9 % (20-40); Mean Corpuscular HGB Conc 31.4 g/dl (31.0-35.0); Mean Corpuscular Hemoglobin 26.5 pg (27.0-33.0); Mean Corpuscular Volume 84.3 fL (80.0-98.0); Mean Platelet Volume 10.9 fL (9.4-12.3); Monocytes Absolute Auto 0.3 X10*3/uL (0.1-1.2); Monocytes Percent Auto 4.8 % (2-11); Neutrophils Absolute Auto 4.5 x10*3/uL (2.0-8.3); Neutrophils Percent Auto 67.7 % (45-73); Platelet Count 248 X10*3/uL (160-400); Red Blood Count 4.15 X10*6/uL (4.20-5.50); White Blood Count 6.6 X10*3/uL (4.8-10.8)
[2021-12-01 11:16] LABS: Alanine Aminotransferase 7 U/L (0-31); Albumin Level 4.3 g/dL (3.5-5.0); Alkaline Phosphatase 88 U/L (39-117); Anion Gap 14 (12-20); Aspartate Amino Transferase 13 U/L (5-31); Bilirubin Total 0.5 mg/dL (0.0-1.0); Blood Urea Nitrogen 16 mg/dL (9-16); Calcium 9.3 mg/dL (8.4-10.2); Carbon Dioxide 29 mmol/L (22-29); Chloride 104 mmol/L (96-108); Cholesterol 213 mg/dL; Estimated Glomerular Filt Rate > 60; Glucose Fasting 96 mg/dL (60-99); HDL Cholesterol 46 mg/dL; LDL Cholesterol Calculated 135 mg/dl; Potassium 4.1 mmol/L (3.3-5.1); Sodium 143 mmol/L (135-145); Triglycerides 163 mg/dL
[2021-12-01 11:38] LABS: TSH reflex Free T4 1.35 uIU/mL (0.32-4.0); Vitamin D 25-OH Total 54.1 ng/mL (>30)
[2021-12-01 11:54] LABS: Appearance Urine Clear; Color Urine Yellow; Glucose Urine UA Negative (Negative); Leukocyte Esterase Urine Negative (Negative); Nitrite Urine Negative (Negative); Specific Gravity - Urine 1.025 (1.005-1.025); Urine Blood Negative (Negative); Urine Ketones Negative (Negative); Urine Protein Trace mg/dL (Neg-Trace)
== END 2021-12-01 09:28 | disposition home or self-care (01) ==
LOC: HO.XRAY 09:27
PROVIDERS: Absent Provider Internal Medicine; PCP Internal Medicine; Visit Provider Nurse Practitioner Family
DX: R13.10 Dysphagia, unspecified (principal); K21.9 Gastro-esophageal reflux disease without esophagitis; I10 Essential (primary) hypertension; E55.9 Vitamin D deficiency, unspecified; E78.00 Pure hypercholesterolemia, unspecified
CPT/HCPCS: 36415; 74240; 80053; 80061; 81003; 82306; 84443; 85025

== ENCOUNTER 2021-12-04 13:00 | Outpatient (RCR) | payer OTHER, SELFPAY ==
--- NOTE | 2021-11-09 16:51 | MHC.PT.EP ---
[facility] [place] Office [place] [facility] [place] Office [address] Breezy Rodriguez [address] [phone] F: [phone] F: [phone] F: [phone] F: [phone] Physical Therapy Plan of Care Date of Evaluation: Date of Surgery: 09/22/21 R TKR Diagnosis: TKR R Assessment: Pt IS 66 YO F REFERRED TO PT FROM DR HARMAN S/P R TKR ON 09/22/21. 4 DAYS IN [facility] [place] (SOME PROBLEMS WITH OAIN MED) DC HOME WITH HOME PT. REPORTS WORKED ON EXS X 2 WEEKS THEN STOPPED, BUT DRIVING, SHOPPING ETC. ? FU. PRESENTS WITH LIMITED R KNEE ROM AND R LE STRENGTH WTIH SOME PAIN AND ANTALGIC GT. SHOULD BENEFIT FROM PT TO ADDRESS THESE ISSUES Frequency and Duration: The patient will be seen 2X/WK X 6 WKS Short Term Goals: 1. INCREASED AWARENESS KNEE CARE 2. I HEP WITH DC EX PLAN 3. INCREASED R KNEE ROM 0-120 Physician Neonatology Goals: 1. DECREASED R KNEE PAIN AT LEAST 50% WITH ADLS 2. IMPROVED GT (DECREASED LIMP R) Treatment Plan: Modalities to reduce pain, spasms and effusion. Manual therapy to restore motion and function. Therapeutic exercise to improve strength and flexibility. Neuromuscular re-education for posture and balance. Therapeutic activities to return to functional activities of daily living. Electronically signed by: GEORGI CONNOLLY PT Please sign and return to therapist. Thank you for your referral.
--- NOTE | 2021-12-07 15:10 | MHC.PT.DC ---
[facility] [place] Office [place] Office [place] Office [address] Breezy Rodriguez [address] [phone] F: [phone] F: [phone] F: [phone] F: [phone] Physical Therapy Discharge Report Diagnosis: TKR R Date of Surgery: 09/22/21 R TKR Date of Evaluation: 11/09/21 Date of Discharge: 12/07/21 Treatments to Date: 8 Cancellations to Date: No Shows to Date: Discharge Status: Achieved Goals Improved Function Independent with HEP Patient Elected to Stop Discharge Summary: PER LAST ASSESSMENT BY Jordyn MUNOZ DEPUTY FELONY CLERK ON 12/04 'pt is 10wks post op ROM 0-120* pt has met STGs and LTGs. Good ex form. Pt D/C to [facility]P today. ' Electronically signed by: GEORGI CONNOLLY PT Please sign and return to therapist. Thank you for your referral.
== END 2022-01-12 10:16 | disposition home or self-care (01) ==
LOC: HO.PT 13:00
PROVIDERS: PCP Internal Medicine; Visit Provider Physician Assistant
DX: Z96.651 Presence of right artificial knee joint (principal)
CPT/HCPCS: 97110; 97161; 97530

== ENCOUNTER → 2021-12-15 13:24 | Outpatient (BNVA) | payer OTHER, SELFPAY | PROVIDERS: PCP Internal Medicine; Visit Provider Nurse Practitioner Family | DX: M47.816 Spondylosis without myelopathy or radiculopathy, lumbar region (principal); M17.0 Bilateral primary osteoarthritis of knee; M47.27 Other spondylosis with radiculopathy, lumbosacral region; G89.4 Chronic pain syndrome; Z79.891 Long term (current) use of opiate analgesic; Z96.651 Presence of right artificial knee joint | CPT/HCPCS: 99212 ==

== ENCOUNTER → 2022-01-12 15:08 | Outpatient (BNVA) | payer OTHER, SELFPAY | PROVIDERS: PCP Internal Medicine; Visit Provider Nurse Practitioner Family | DX: Z79.891 Long term (current) use of opiate analgesic (principal) | CPT/HCPCS: 99211 ==

== ENCOUNTER 2022-01-14 16:56 | Outpatient (REF) | payer OTHER, SELFPAY ==
--- NOTE | ~2022-01-14 | XR_ITS ---
EXAMINATION: XR KNEE, RIGHT XR KNEE AP STANDING CLINICAL INFORMATION: Pain. COMPARISON: Prior radiographs, most recently 09/22/2021. TECHNIQUE: Lateral and axial views of the right knee are submitted. AP bilateral standing view of the knees was obtained. FINDINGS: Prosthetic components of the right total knee arthroplasty are appropriately aligned, without periprosthetic fracture or lucency. No component migration. No joint effusion. The lateral and medial joint space compartments of the left knee are well-maintained and show mild peripheral osteophyte formation. No significant varus or valgus configuration is seen bilaterally. XR/XR knee RT 2V IMPRESSION: 1. Appropriate alignment of the right total knee arthroplasty without evidence of complications. 2. 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 3. No significant varus or valgus configuration is seen bilaterally.
--- NOTE | ~2022-01-14 | XR_ITS ---
EXAMINATION: XR KNEE, RIGHT XR KNEE AP STANDING CLINICAL INFORMATION: Pain. COMPARISON: Prior radiographs, most recently 09/22/2021. TECHNIQUE: Lateral and axial views of the right knee are submitted. AP bilateral standing view of the knees was obtained. FINDINGS: Prosthetic components of the right total knee arthroplasty are appropriately aligned, without periprosthetic fracture or lucency. No component migration. No joint effusion. The lateral and medial joint space compartments of the left knee are well-maintained and show mild peripheral osteophyte formation. No significant varus or valgus configuration is seen bilaterally. XR/XR knee standing BI IMPRESSION: 1. Appropriate alignment of the right total knee arthroplasty without evidence of complications. 2. 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 3. No significant varus or valgus configuration is seen bilaterally.
== END 2022-01-14 16:57 | disposition home or self-care (01) ==
LOC: HO.HOSX 16:56
PROVIDERS: Visit Provider Orthopaedic Surgery
DX: M25.561 Pain in right knee (principal)
CPT/HCPCS: 73560; 73565

== ENCOUNTER 2022-01-26 14:04 | Emergency (ER) | payer OTHER, SELFPAY ==
[2022-01-26 15:03] VITALS: BP 160/51; PULSE 69; RESP 18; TEMP 36.6; O2SAT 97; BMI 36.3
--- OUTSIDE RECORDS SUMMARY | 2022-01-26 16:41 | XMS_ITS | Continuity of Care Document ---
:1955 Author Organization [facility] Address [address] [place] [id number]- Care Team Providers Name Role Phone Curt Falk MD Primary Care Physician Encounter [facility] Date(s): 06/24/19 - 06/24/[address] [address]- [facility] Discharge Disposition: A-D/C Home Attending Physician: Garcia Ames DO Admitting Physician: Garcia Ames DO Referring Physician: Not on Staff, Referring MD Allergies, Adverse Reactions, Alerts Substance Reaction Severity Status penicillin rash Active aspirin upset stomach Active Medications acetaminophen-oxycodone 325 mg-7.5 mg oral tablet 1 tablet, By Mouth, Every 6 hours, PRN Pain Start Date: 06/20/19 Status: OrderedbuPROPion 300 mg/24 hours (XL) oral tablet, extended release 1 tablet = 300 mg, By Mouth, Daily in AM Start Date: 06/20/19 Status: Orderedfenofibrate 145 mg oral tablet 1 tablet = 145 mg, By Mouth, Daily, # 30 tablet, 0 Refills, Maintenance, 03/13/19 9:32:13 EST, Tablet Start Date: 03/13/19 Status: Orderedibuprofen 800 mg oral tablet 800 mg, 1, tablet, By Mouth, 3 times a day, PRN, # 90 tablet, Refills 0, Tot. Refills 0, Acute 07/22/19 16:51:00 EDT, Pain , Mild, 06/21/19 16:51:00 EST, Route to Pharmacy Electronically, [facility], 152, cm, 06/21/19 15:35:00 EST, Heigh... Start Date: 06/21/19 Stop Date: 07/22/19 Status: OrderedKeflex monohydrate 500 mg oral capsule 1 capsule = 500 mg, By Mouth, Every 12 hours, for 5 days, # 10 capsule, 0 Refills, Acute 06/29/19 21:17:00 EDT, 06/24/19 21:17:00 EDT, Capsule, [facility]/pharmacy #[id number], 152, cm, 06/21/19 15:35:00 EST, Height, 82.5, kg, 06/19/19 21:25:00 EST, Dry Weight Start Date: 06/24/19 Stop Date: 06/29/19 Status: OrderedKlonoPIN 1 mg oral tablet 1 tablet = 1 mg, By Mouth, 3 times a day, PRN Anxiety, 0 Refills, Maintenance, 06/20/19 0:03:00 EST,Tablet Start Date: 06/20/19 Status: OrderedOmeprazole = 40 mg, By Mouth, Daily, 0 Refills, Maintenance, 09/20/14 14:33:10 Start Date: 09/20/14 Status: OrderedPyridium 100 mg oral tablet 1 tablet = 100 mg, By Mouth, 3 times a day, for 2 days, # 6 tablet, 0 Refills, Acute 06/26/19 21:19:00 EDT, 06/24/19 21:19:00 EDT, Tablet, [facility]/pharmacy #[id number], 152, cm, 06/21/19 15:35:00 EST, Height, 82.5, kg, 06/19/19 21:25:00 EST, Dry Weight Start Date: 06/24/19 Stop Date: 06/26/19 Status: Orderedquetiapine 50 mg oral tablet = 200 mg, By Mouth, Daily at bedtime, 0 Refills, Maintenance, 09/24/14 13:41:27 EDT, Tablet Start Date: 09/24/14 Status: Ordered Problem List Condition Effective Dates Status Health Status Informant Nephrolithiasis(Confirmed) Active Vital Signs Most recent to oldest [Reference 1 2 3 Range]: Oxygen Saturation [94-100 %] 97 % 96 % 96 % (06/24/19 10:18 PM) (06/24/19 7:47 PM) (06/24/19 6:44 PM) Pulse Rate [55-90 bpm] 70 bpm 75 bpm 58 bpm (06/24/19 10:18 PM) (06/24/19 7:47 PM) (06/24/19 6:44 PM) Blood Pressure [90-138/55-84 mm 152/70 mm Hg 149/65 mm Hg 152/70 mm Hg Hg] *H* *H* *H* (06/24/19 10:18 PM) (06/24/19 7:47 PM) (06/24/19 6:44 PM) Respiratory Rate [16-30 br/min] 18 br/min 18 br/min 18 br/min (06/24/19 10:18 PM) (06/24/19 7:47 PM) (06/24/19 7:46 PM) Temperature [96.8-100.4 DegF] 98.5 DegF 98.3 DegF (06/24/19 6:44 PM) (06/24/19 3:57 PM) Mode of Delivery (Oxygen) Room air Room air Room a ir (06/24/19 10:18 PM) (06/24/19 7:47 PM) (06/24/19 6:44 PM) Blood pressure sites Arm, left Arm, left Arm, left (06/24/19 10:18 PM) (06/24/19 7:47 PM) (06/24/19 6:44 PM) Temperature Route Oral Oral (06/24/19 6:44 PM) (06/24/19 3:57 PM) Social History Social History Type Response Smoking Status Former smoker entered on: 09/21/14 Sex
--- OUTSIDE RECORDS SUMMARY | 2022-01-26 16:41 | XMS_ITS | Continuity of Care Document ---
:1955 Author Organization [facility] Address [address] [place] [address]- Care Team Providers Name Role Phone Curt Falk MD Primary Care Physician Encounter [facility] ACCT R [id number] Date(s): 06/26/19 - 06/29/[address] [address]- [facility] Discharge Disposition: A-D/C Home Attending Physician: Antony Lira DO Admitting Physician: Antony Lira DO Referring Physician: Not on Staff, Referring [...] Daily in AM Start Date: 06/20/19 Status: Ordereddocusate sodium 100 mg oral capsule 1 capsule = 100 mg, By Mouth, Daily at bedtime, PRN as needed for constipation, 0 Refills, Maintenance, 06/26/19 13:37:00 EDT Start Date: 06/26/19 Status: Orderedfenofibrate 145 mg oral tablet 1 tablet = 145 mg, By Mouth, Daily, # 30 tablet, 0 Refills, Maintenance, 03/13/19 9:32:13 EST, Tablet Start Date: 03/13/19 Status: OrderedKlonoPIN 1 mg oral tablet 1 tablet = 1 mg, By Mouth, 3 times a day, PRN Anxiety, 0 Refills, Maintenance, 06/20/19 0:03:00 EST,Tablet Start Date: 06/20/19 Status: OrderedOmeprazole = 40 mg, By Mouth, Daily, 0 Refills, Maintenance, 09/20/14 14:33:10 Start Date: 09/20/14 Status: OrderedQUEtiapine 200 mg oral tablet 200 mg, 1, tablet, By Mouth, Daily at bedtime Start Date: 06/26/19 Status: Ordered Problem List Condition Effective Dates Status Health Status Informant Nephrolithiasis(Confirmed) Active Procedures Procedure Date Related Diagnosis Body Site Status Ureteral stent-placement set 2019 Completed Hysterectomy 1993 Completed Results Orders for Microbiology Reports Name Date Urine Culture (URINE CULTURE) 06/26/19 Microbiology Reports TEST:Urine Culture STATUS:Auth (Verified) BODY SITE: SOURCE:URINE COLLECTED DATE/TIME:06/26/19 8:43 AMUrine Culture SPECIMEN DESCRIPTION : URINE CLEAN CATCH/MIDSTREAM SPECIAL REQUESTS : NONE Reflexed from [id number] CULTURE : NO GROWTH REPORT STATUS : FINAL 06/27/2019Radiology Reports Exam Date Time Procedure Performing Provider Status 06/27/19 12:36 PM C-Arm > 1 Hour Sheron Amaya; Auth (Verifie d) Notes:(C-Arm > 1 Hour) Reason For Exam: Left Renal Calculus, Retrograde with Laser Stone Removal( TT 1 hour / FT 1min 32sec)RESULT: C-Arm > 1 Hour Findings/ Impression: 2 fluoroscopic spot images during left pyeloureterography. Technologist time: 1 hour Fluoroscopy time: 1 minute 32 seconds WSN: [id number] Ordering Physician: Keanu King Dictated By: Ari Roy MD Dictated Date/Time: 06/27/19 2:02 pm Reviewed By: Ari Roy MD Signed By: Ari Roy MD Signed Date/Time: 06/27/19 2:02 pm Transcribed By: DEVIN Transcribed Date/Time: 06/27/19 2:01 pm Exam Date Time Procedure Performing Provider Status 06/27/19 12:36 PM Urethrocystography Retrograde Sheron Amaya; Auth (Verified) Notes:(Urethrocystography Retrograde) Reason For Exam: Left Renal Calculus, Retrograde with laser stone removal (TT 1hour /FT 1min 32sec)RESULT: Urethrocystography Retrograde Findings/ Impression: 2 fluoroscopic spot images during left pyeloureterography. Technologist time: 1 hour Fluoroscopy time: 1 minute 32 seconds WSN: [id number] Ordering Physician: Keanu King Dictated By: Ari Roy MD Dictated Date/Time: 06/27/19 2:02 pm Reviewed By: Ari Roy MD Signed By: Ari Roy MD Signed Date/Time: 06/27/19 2:02 pm Transcribed By: DEVIN Transcribed Date/Time: 06/27/19 2:01 pm Vital Signs Most recent to oldest 1 2 3 [Reference Range]: Height 152 cm 152 cm 152 cm (06/28/19 8:26 PM) (06/28/19 7:59 AM) (06/27/19 7:4 4 PM) Weight 82.1 kg 82.1 kg 82.1 kg (06/27/19 9:33 AM) (06/26/19 1:26 PM) (06/26/19 1:1 8 PM) Oxygen Saturation [94-100 97 % 97 % 97 % %] (06/29/19 7:00 AM) (06/28/19 8:26 PM) (06/28/19 7:5 9 AM) Pulse Rate [55-90 bpm] 77 bpm 80 bpm 81 bpm (06/29/19 7:00 AM) (06/28/19 8:26 PM) (06/28/19 7:5 9 AM) Body Mass Index 35.53 35.53 35.53 [18.5-24.99] *>HHI* *>HHI* *>HHI* (06/27/19 9:33 AM) (06/26/19 1:26 PM) (06/26/19 1:1 8 PM) Blood Pressure 136/73 mm Hg 134/62 mm Hg 119/57 mm Hg [90-138/55-84 mm Hg] (06/29/19 7:00 AM) (06/28/19 8:26 PM) ( 0 7:59 AM) Respiratory Rate [16-30 18 br/min 18 br/min 20 br/mi n br/min] (06/29/19 7:00 AM) (06/28/19 8:26 PM) (06/28/19 7:2 8 PM) Temperature [96.8-100.4 98.8 DegF 98.8 DegF 97.8 Deg F DegF] (06/29/19 7:00 AM) (06/28/19 8:26 PM) (06/28/19 7:5 9 AM) Liters per Minute 6 L/min 6 L/min 6 L/min (06/27/19 1:00 PM) (06/27/19 12:45 PM) (06/27/19 12 :30 PM) Mode of Delivery (Oxygen) Room air Room air Room a ir (06/29/19 7:00 AM) (06/28/19 8:26 PM) (06/28/19 7:5 9 AM) Blood pressure sites Arm, left Arm, right Arm, left (06/29/19 7:00 AM) (06/28/19 8:26 PM) (06/28/19 7:5 9 AM) Temperature Route Oral Oral Oral (06/29/19 7:00 AM) (06/28/19 8:26 PM) (06/28/19 7:5 9 AM) Dry Weight 82.1 kg 82.8 kg (06/26/19 1:18 PM) (06/26/19 8:17 AM) Weight Obtained Via Bed scale Patient/family stated (06/26/19 1:26 PM) (06/26/19 8:17 AM) Dry Weight Obtained Via Patient lift hanging scale (06/26/19 8:17 AM) Sensory deficits None (06/26/19 1:18 PM) Mobility assistance Independent (06/26/19 1:18 PM) Social History Social History Type Response Smoking Status Never (less than 100 in life time) entered on: 06/26/19 Sex
--- OUTSIDE RECORDS SUMMARY | 2022-01-26 16:41 | XMS_ITS | Continuity of Care Document ---
:1955 Author Organization [facility] Address [address] [place] [id number]- Care Team Providers Name Role Phone Curt Falk MD Primary Care Physician Encounter [facility] Date(s): 06/19/19 - 06/21/[address] [address]- [facility] Encounter Diagnosis Left ureteral stone (Final) - 06/19/19 Discharge Disposition: A-D/C Home Attending Physician: Drake Alvarado MD Admitting Physician: Tomas Freeman MD Referring Physician: Not on Staff, Referring MD [...] 06/21/19 16:51:00 EST, Route to Pharmacy Electronically, [facility], 152, cm, 06/21/19 15:35:00 EST, Heigh... Start Date: 06/21/19 Stop Date: 07/22/19 Status: OrderedKlonoPIN 1 mg oral tablet 1 tablet = 1 mg, By Mouth, 3 times a day, PRN Anxiety, 0 Refills, Maintenance, 06/20/19 0:03:00 EST,Tablet Start Date: 06/20/19 Status: OrderedOmeprazole = 40 mg, By Mouth, Daily, 0 Refills, Maintenance, 09/20/14 14:33:10 Start Date: 09/20/14 Status: Orderedquetiapine 50 mg oral tablet = 200 mg, By Mouth, Daily at bedtime, 0 Refills, Maintenance, 09/24/14 13:41:27 EDT, Tablet Start Date: 09/24/14 Status: Ordered Problem List Condition Effective Dates Status Health Status Informant Nephrolithiasis(Confirmed) Active Results Radiology Reports Exam Date Time Procedure Performing Provider Status 06/20/19 11:01 AM C-Arm < 1 Hour Kavitha Hagen; Amalia ([facility] ed) Notes:(C-Arm < 1 Hour) Reason For Exam: lt retro cysto with stent placement; TT 15 min FT 2 secRESULT: C-Arm < 1 Hour Urethrocystography Retrograde, C-Arm < 1 Hour INDICATION: Refer to EMR; Reason: lt retro cysto with stent placement; TT 15 min FT 2 sec; Hx of Present Illness: pt reporting dx with kidney stone last week, c o left pain radiating to groin worse since last night with nausea. denies hematuria. pt took own percocet at 1030a prior to calling ems with no change in pain.; Other Objective Findings: aox3. skin pwd. unalbored rr. abd soft nontender. c o pain cassie COMPARISONS: None TECHNIQUE: Fluoroscopy support was provided. There was no radiologist in attendance. Fluoroscopy time: 2.8 seconds Technologist time: 15 minutes Exposure: 0.67 mGy FINDINGS: Fluoroscopy support was provided. There was no radiologist in attendance. IMPRESSION: See above. WSN: [id number] Ordering Physician: Ari Taylor Dictated By: Negrito Orellana MD Dictated Date/Time: 06/20/19 4:39 pm Reviewed By: Negrito Orellana MD Signed By: Negrito Orellana MD Signed Date/Time: 06/20/19 4:39 pm Transcribed By: DEVIN Transcribed Date/Time: 06/20/19 4:38 pm Exam Date Time Procedure Performing Provider Status 06/20/19 11:01 AM Urethrocystography Retrograde Kavitha Hagen ; Amalia (Verified) Notes:(Urethrocystography Retrograde) Reason For Exam: lt retro cysto with stent placement; TT 15 min FT 2secRESULT: Urethrocystography Retrograde Urethrocystography Retrograde, C-Arm < 1 Hour INDICATION: Refer to EMR; Reason: lt retro cysto with stent placement; TT 15 min FT 2 sec; Hx of Present Illness: pt reporting dx with kidney stone last week, c o left pain radiating to groin worse since last night with nausea. denies hematuria. pt took own percocet at 1030a prior to calling ems with no change in pain.; Other Objective Findings: aox3. skin pwd. unalbored rr. abd soft nontender. c o pain cassie COMPARISONS: None TECHNIQUE: Fluoroscopy support was provided. There was no radiologist in attendance. Fluoroscopy time: 2.8 seconds Technologist time: 15 minutes Exposure: 0.67 mGy FINDINGS: Fluoroscopy support was provided. There was no radiologist in attendance. IMPRESSION: See above. WSN: [id number] Ordering Physician: Ari Taylor Dictated By: Negrito Orellana MD Dictated Date/Time: 06/20/19 4:39 pm Reviewed By: Negrito Orellana MD Signed By: Negrito Orellana MD Signed Date/Time: 06/20/19 4:39 pm Transcribed By: DEVIN Transcribed Date/Time: 06/20/19 4:38 pm Vital Signs Most recent to oldest [Reference 1 2 3 Range]: Height 152 cm 152 cm 152 cm (06/21/19 3:35 PM) (06/21/19 12:26 PM) (06/21/19 8:18 AM) Weight 82.5 kg 82.5 kg 82.5 kg (06/20/19 9:48 AM) (06/19/19 8:21 PM) (06/19/19 7:00 P M) Oxygen Saturation [94-100 %] 96 % 96 % 96 % (06/21/19 3:35 PM) (06/21/19 12:26 PM) (06/21/19 8:18 AM) Pulse Rate [55-90 bpm] 79 bpm 72 bpm 69 bpm (06/21/19 3:35 PM) (06/21/19 12:26 PM) (06/21/19 8:18 AM) Body Mass Index [18.5-24.99] 35.71 35.71 *>HHI* *>HHI* (06/20/19 9:48 AM) (06/19/19 8:21 PM) Blood Pressure [90-138/55-84 mm 102/56 mm Hg 129/64 mm Hg 125/71 mm Hg Hg] (06/21/19 3:35 PM) (06/21/19 12:26 PM) (06/21/19 8:18 AM) Respiratory Rate [16-30 br/min] 18 br/min 20 br/min 18 br/min (06/21/19 5:09 PM) (06/21/19 3:35 PM) (06/21/19 1:10 P M) Temperature [96.8-100.4 DegF] 98.8 DegF 98.3 DegF 98 .5 DegF (06/21/19 3:35 PM) (06/21/19 12:26 PM) (06/21/19 8:18 AM) Liters per Minute 6 L/min (06/20/19 11:00 AM) Mode of Delivery (Oxygen) Room air Room air Room a ir (06/21/19 3:35 PM) (06/21/19 12:26 PM) (06/21/19 8:18 AM) Blood pressure sites Arm, left Arm, left Arm, left (06/21/19 3:35 PM) (06/21/19 12:26 PM) (06/21/19 8:18 AM) Temperature Route Oral Oral Oral (06/21/19 3:35 PM) (06/21/19 12:26 PM) (06/21/19 8:18 AM) Dry Weight 82.5 kg (06/19/19 8:21 PM) Weight Obtained Via Bed scale Standing scale (06/19/19 8:21 PM) (06/19/19 7:00 PM) Sensory deficits None (06/19/19 8:21 PM) Mobility assistance Independent (06/19/19 8:21 PM) Social History Social History Type Response Smoking Status Former smoker entered on: 09/21/14 Sex
== END 2022-01-26 17:04 | disposition left against medical advice (07) ==
PROVIDERS: Emergency Provider Emergency Medicine; PCP Internal Medicine
DX: M79.604 Pain in right leg (principal)
CPT/HCPCS: 99281

== ENCOUNTER 2022-02-01 15:09 | Outpatient (REF) | payer OTHER, SELFPAY ==
--- NOTE | ~2022-02-01 | XR_ITS ---
EXAMINATION: XR LUMBOSACRAL SPINE CLINICAL INFORMATION: Chest pain, lower back pain with sciatica COMPARISON: Lumbar spine radiographs 07/20/2020 TECHNIQUE: Three views of the lumbosacral spine. FINDINGS: Lumbar spine alignment is normal. There is mild loss of disc space and endplate remodeling at multiple levels which is most apparent at T12-L1, overall similar to the prior study. There is osteophyte formation at multiple levels including relatively bulky osteophytes along the right side of the upper lumbar spine and there is multilevel facet arthropathy. There is atherosclerotic calcification of the abdominal aorta best visualized on lateral radiographs. Soft tissues are unremarkable. XR/XR lumbar spine 2-3V IMPRESSION: Mild multilevel degenerative changes of the lumbar spine overall similar to the prior study.
--- NOTE | ~2022-02-01 | XR_ITS ---
EXAMINATION: XR CHEST CLINICAL INFORMATION: Chest pain, lower back pain COMPARISON: Chest radiograph 10/01/2020 TECHNIQUE: 2 views of the chest were obtained. FINDINGS: Lungs are well expanded. No focal opacities are seen. No pleural effusion. Cardiomediastinal contours are unchanged. There is mild dextrocurvature of the thoracic spine and endplate degenerative changes at multiple levels. Soft tissues are unremarkable. XR/XR chest 2V IMPRESSION: Stable chest.
== END 2022-02-01 15:10 | disposition home or self-care (01) ==
LOC: HO.XRAY 15:09
PROVIDERS: PCP Internal Medicine; Visit Provider Hospitalist
DX: M54.9 Dorsalgia, unspecified (principal); R06.02 Shortness of breath; J45.40 Moderate persistent asthma, uncomplicated; G47.33 Obstructive sleep apnea (adult) (pediatric)
CPT/HCPCS: 71046; 72100; 99212

== ENCOUNTER → 2022-02-12 08:08 | Outpatient (BNVA) | payer OTHER, SELFPAY | PROVIDERS: PCP Internal Medicine; Visit Provider Nurse Practitioner Family | DX: Z51.81 Encounter for therapeutic drug level monitoring (principal); F11.20 Opioid dependence, uncomplicated; M47.816 Spondylosis without myelopathy or radiculopathy, lumbar region; M47.27 Other spondylosis with radiculopathy, lumbosacral region; G89.4 Chronic pain syndrome; Z79.891 Long term (current) use of opiate analgesic | CPT/HCPCS: 99212 ==

== ENCOUNTER 2022-02-17 14:37 | Outpatient (REF) | payer OTHER, SELFPAY ==
--- NOTE | ~2022-02-17 | XR_ITS ---
EXAMINATION: XR HIP, RIGHT CLINICAL INFORMATION: Pain COMPARISON: None TECHNIQUE: Two views of the right hip. FINDINGS: Bone alignment is normal. No fracture or dislocation. Moderate right hip arthritis with joint space narrowing and osteophyte formation. Normal soft tissues. XR/XR hip RT min 2V IMPRESSION: Moderate right hip arthritis.
== END 2022-02-17 14:38 | disposition home or self-care (01) ==
LOC: HO.XRAY 14:37
PROVIDERS: PCP Internal Medicine; Visit Provider Internal Medicine
DX: M25.551 Pain in right hip (principal)
CPT/HCPCS: 73502

== ENCOUNTER 2022-03-05 09:18 | Outpatient (REF) | payer OTHER, SELFPAY ==
--- NOTE | ~2022-03-05 | MR_ITS ---
EXAMINATION: MR LUMBAR SPINE WITHOUT CONTRAST CLINICAL INFORMATION: Spondylosis without myelopathy. The patient states right leg pain. COMPARISON: Plain films of the lumbar spine 02/01/2022. TECHNIQUE: MRI of the lumbar spine was obtained using routine sequences without contrast. FINDINGS: VERTEBRAL BODIES AND PARASPINAL STRUCTURES: There are mild grade 1 anterolistheses of L4 on L5 and L5 on S1. There is multilevel narrowing of intervertebral disc height with loss of signal throughout the lumbar spine. There are multilevel anterior and right-sided marginal osteophytes. Vertebral body heights are maintained and no fractures are demonstrated. There is an area of increased T1 and T2 signal in the body of L2 consistent with a hemangioma. Overall, marrow signal is homogenous. There are small bilateral renal cysts. The visualized pelvic structures are unremarkable. CONUS MEDULLARIS AND CAUDA EQUINA: Normal, terminating at the level of L1. The lower thoracic spinal cord appears normal. The cauda equina nerve roots and filum terminale appear normal. SPINAL LEVELS: T12-L1: There is mild bilateral facet arthropathy. Posterior disc contour is normal. There is no central stenosis or foraminal narrowing. L1-L2: There is mild bilateral facet arthropathy. Posterior disc contour is normal. There is no central stenosis or foraminal narrowing. L2-L3: There is mild bilateral facet arthropathy. There are small right-sided disc protrusion with minimal distortion of the ventral thecal sac but there is no central stenosis. The neural foramina are patent bilaterally. L3-L4: There is moderate bilateral facet arthropathy. There is a broad-based posterior disc protrusion with a small extruded component extending behind the body of L3 centrally and toward the right. There is minimal distortion of the ventral thecal sac. There is no central stenosis. There are foraminal disc protrusions with mild impingement on the exiting right L3 nerve root. L4-L5: There is markedly severe left and severe right facet arthropathy. There is a broad-based posterior disc protrusion with an annular fissure which flattens the ventral thecal sac and narrows the subarticular recesses. There are bilateral foraminal disc protrusions with impingement on the exiting L4 nerve roots. There is no significant central stenosis. L5-S1: There is markedly severe bilateral facet arthropathy. There is a shallow posterior disc protrusion with mild distortion of the ventral thecal sac but there is no central stenosis. There are left greater than right foraminal disc protrusions with impingement on the exiting left L5 nerve root. MR/MR lumbar spine wo con IMPRESSION: 1. At L4-L5 there is markedly severe left and severe right facet arthropathy. There is a posterior disc protrusion and there is narrowing of the subarticular recesses. There are bilateral foraminal disc protrusions with impingement on the exiting L4 nerve roots. There is no significant central stenosis. 2. At L5-S1 there is markedly severe facet arthropathy. There is a shallow posterior disc protrusion without central stenosis. There are left greater than right foraminal disc protrusions with impingement on the exiting left L5 nerve root. 3. At L3-L4 there is moderate facet arthropathy. There is a small posterior disc protrusion/extrusion without central stenosis. There are foraminal disc protrusions with impingement on the exiting right L3 nerve root.
== END 2022-03-05 09:19 | disposition home or self-care (01) ==
LOC: HO.MRI 09:18
PROVIDERS: Visit Provider Nurse Practitioner Family
DX: M47.816 Spondylosis without myelopathy or radiculopathy, lumbar region (principal)
CPT/HCPCS: 72148

== ENCOUNTER → 2022-03-15 15:48 | Outpatient (BNVA) | payer OTHER, SELFPAY | PROVIDERS: PCP Internal Medicine; Visit Provider Nurse Practitioner Family | DX: Z51.81 Encounter for therapeutic drug level monitoring (principal); F11.20 Opioid dependence, uncomplicated; M47.816 Spondylosis without myelopathy or radiculopathy, lumbar region; M47.27 Other spondylosis with radiculopathy, lumbosacral region; M25.551 Pain in right hip; G89.4 Chronic pain syndrome | CPT/HCPCS: 99212 ==

== ENCOUNTER → 2022-04-13 13:31 | Outpatient (BNVA) | payer OTHER, SELFPAY | PROVIDERS: PCP Internal Medicine; Visit Provider Nurse Practitioner Family | DX: Z13.89 Encounter for screening for other disorder (principal) ==

== ENCOUNTER 2022-04-21 06:15 | Outpatient (REF) | payer OTHER, SELFPAY ==
--- NOTE | ~2022-04-21 | FL_ITS ---
EXAMINATION: XR FLUOROSCOPY WITH IMAGES CLINICAL INFORMATION: M25.551 - Pain in right hip COMPARISON: Right hip radiographs 02/17/2022 TECHNIQUE: Fluoroscopy Supervised By: Dr. Rosendo Pacheco. Fluoroscopy Time: 0.2 minutes. Cumulative Dose: 4.19 mGy. DAP: 0.647 Gycm2. Images: 1. FINDINGS: There is spinal needle with tip overlying the proximal neck right hip. Intracapsular contrast is demonstrated. FL/FL guidance in treatment room IMPRESSION: Fluoroscopy for pain management procedure.
== END 2022-04-21 06:16 | disposition home or self-care (01) ==
LOC: CF 06:15
PROVIDERS: Visit Provider Internal Medicine
DX: M25.551 Pain in right hip (principal)
CPT/HCPCS: 20610; J3301

== ENCOUNTER → 2022-05-04 09:55 | Outpatient (BNVA) | payer OTHER, SELFPAY | PROVIDERS: PCP Internal Medicine; Visit Provider Nurse Practitioner Family | DX: M47.816 Spondylosis without myelopathy or radiculopathy, lumbar region (principal); M47.27 Other spondylosis with radiculopathy, lumbosacral region; M25.551 Pain in right hip; G89.4 Chronic pain syndrome; Z79.891 Long term (current) use of opiate analgesic | CPT/HCPCS: 99212 ==

== ENCOUNTER → 2022-05-20 08:52 | Outpatient (BNVA) | payer OTHER, SELFPAY | PROVIDERS: PCP Internal Medicine; Visit Provider Nurse Practitioner Family | DX: M47.816 Spondylosis without myelopathy or radiculopathy, lumbar region (principal); M47.27 Other spondylosis with radiculopathy, lumbosacral region; M25.551 Pain in right hip; M25.50 Pain in unspecified joint; G89.4 Chronic pain syndrome; Z79.891 Long term (current) use of opiate analgesic | CPT/HCPCS: 99212 ==

== ENCOUNTER 2022-05-26 11:41 | Day surgery (SDC) | payer OTHER, SELFPAY ==
[2022-05-20 11:09] VITALS: BMI 36.9
--- NOTE | ~2022-05-26 | FL_ITS ---
EXAMINATION: XR FLUOROSCOPY WITH IMAGES CLINICAL INFORMATION: Right medial branch radiofrequency ablation L3, L4, and L5. COMPARISON: MRI lumbar spine of 03/05/2022. TECHNIQUE: Fluoroscopy Supervised By: Dr. Rosendo Pacheco. Fluoroscopy Time: 0.3 minutes. Cumulative Dose: 8.48 mGy. DAP: 1.26 Gycm2. Images: 4. FINDINGS: Probes are seen overlying the right lateral aspects of superior aspect of L4 to the inferior aspect of L5. FL/FL guidance in OR IMPRESSION: Intraoperative fluoroscopy for pain management procedure.
[2022-05-26 12:33] VITALS: BP 142/56; PULSE 78; RESP 16; TEMP 36.2; O2SAT 96
--- NOTE | 2022-05-26 13:46 | HO.ANESPROP2 ---
HPI - Anesthesia Eval Consult details Narrative: for Rf Mbbbb under MAC PMFSH Active Problems Active Problems: All Active Problems (Updated 04/07/22 @ 12:50 by Curt Falk MD) Urinary incontinence (Acute) Polyarthralgia (Acute) Right hip pain (Acute) Opioid contract exists (Acute) Back pain (Acute) Food sticks on swallowing (Acute) Osteoarthritis of right knee (Acute) Status post total knee replacement, right (Acute) Preoperative examination (Acute) Nocturia more than twice per night (Acute) Lumbar spondylosis (Acute) Nephrolithiasis (Acute) Spondylosis of lumbosacral spine with radiculopathy (Acute) Long-term current use of opiate analgesic (Acute) Mild depression (Acute) Moderate anxiety (Acute) Bilateral hand numbness (Acute) Bilateral primary osteoarthritis of knee (Acute) Chronic pain syndrome (Acute) Foot pain, bilateral (Acute) BRIDGETTE (obstructive sleep apnea) (Acute) Asthma (Acute) Urticaria (Acute) Obesity (BMI 30-39.9) (Acute) Vitamin D deficiency (Acute) Chronic interstitial cystitis (Acute) Irritable bowel syndrome (IBS) (Acute) Esophageal stricture (Acute) GERD (gastroesophageal reflux disease) (Acute) Left lumbar radiculopathy (Acute) CAD (coronary artery disease) (Acute) Pure hypercholesterolemia (Acute) Benign essential hypertension (Acute) Past Medical History Medical History KAMILA positive Anxiety Arthralgia Asthma Benign essential hypertension CAD (coronary artery disease) Chronic interstitial cystitis Depression Dyspnea Esophageal stricture Foot pain, bilateral GERD (gastroesophageal reflux disease) Insomnia Irritable bowel syndrome (IBS) Left lumbar radiculopathy Lumbar spondylosis Obesity (BMI 30-39.9) BRIDGETTE (obstructive sleep apnea) Osteoarthritis Osteoarthritis of right knee Pure hypercholesterolemia Urticaria Vitamin D deficiency Family History Family History Father Hypertension Mother Hypertension Diabetes CVD (cardiovascular disease) Daughter No problems noted. Family/Other FH: mental illness Other Mental health problem Substance abuse Family history of problems with anesthesia: No Surgical History Surgical History History of cardiac catheterization History of colonoscopy History of nephrolithotomy with removal of calculi History of tooth extraction History of total right knee replacement (09/22/21) Hx of cystoscopy Status post balloon dilatation of esophageal stricture (~2005) History of Problems with Anesthesia: No Social History Social History Housing: Apartment Are you a primary healthcare project manager to a significant other at home: No Do you presently have visiting nurse or other home services: No Alcohol intake: never Patient Tobacco Use Status: Never used Tobacco e-Cigarette/Vaping Use: Never Used Second Hand Smoke Exposure: No Use of substances other than those prescribed or required for medical reasons: No Are you DNR?: No Advance Directives: No Advance Directives Information Provided: Yes Advance Directives on File: No service: No Current occupational status: disabled Cognitive needs: No Hearing needs: No Vision needs: Yes Meds Allergies Allergy/AdvReac Type Severity Reaction Status Date / Time Penicillins [PENICILLINS] Allergy Intermediate RASH Verified 05/20/22 09:02 Home Medications Medication Instructions Recorded Confirmed Last Taken Type dupilumab 300 mg/2 mL subcutaneous 300 mg subcut Q2W 12/03/20 05/19/22 Unknown History pen injector (Dupixent) trazodone 100 mg tablet 200 mg PO BEDTIME PRN 12/15/21 05/19/22 Unknown History quetiapine 50 mg tablet 50 mg PO BEDTIME 03/15/22 05/19/22 Unknown History escitalopram oxalate 20 mg tablet 20 mg PO DAILY 04/13/22 05/19/22 Unknown History Exam Exam Date and Time: May 26, 2022 1346 Height,Weight and Vital Signs: Height 4 ft 11 in Weight 83.007 kg Last Vital Signs Temp 97.1 F 05/26/22 12:33 Pulse 78 05/26/22 12:33 Resp 16 05/26/22 12:33 BP 142/56 H 05/26/22 12:33 Pulse Ox 96 05/26/22 12:33 O2 Del Method 05/26/22 12:33 Airway Mallampati Class: II TM Dist: >3cm Heart: rrr Lungs: cta Assessment and Plan Assessment Anesthesia Assessment: Anesthesia Plan Discussed and Chart Reviewed Final Anesthetic Review Family History of Problems with Anesthesia: No History of Problems with Anesthesia: No ASA Class: III Final Preanesthetic Review: No Changes in Pt Med Stat, Meds/Allgs Chart Reviewed, Consent Obtained/Reviewed and Anes Risks/Benef Reviewed Patient Risk: Low Procedure Risk: Low Anesthetic Plan Anesthetic Plan: MAC: and Agree w/ Assess. and Plan Disposition: Standard PACU
--- NOTE | 2022-05-26 14:01 | MHC.SHP ---
Pre-Procedural Eval Section A Date of Service: 05/26/22 The patient is an INPATIENT: No Changes since office visit: Yes Patient answered all questions The History & Physical has been completed within 30 days and I have reviewed it.: Yes Section B Chief Complaint: Spondylosis without myelopathy or radiculopathy Relevant Family History (Specify if Yes): No Relevant Social History: Other (specify) Present Medications: see Short Stay Collaborative assessment Medical History: No relevant PMH History of Previous Operations: No relevant previous surgery Allergies: Allergies Allergy/AdvReac Type Severity Reaction Status Date / Time Penicillins [PENICILLINS] Allergy Intermediate RASH Verified 05/20/22 09:02 Review of Systems Sugical H&P ROS: Negative: Constitution, Cardiovascular and Respiratory Exam Surgical H&P Exam: Normal: Heart, Normal: Lungs and Normal: Extremities Plan Diagnosis/Plan: Unchanged I have reviewed the history and physical and performed a pertinent physical examination on my patient. No changes have occurred unless specified. Time Spent With Patient Time: Total time managing care of this patient today ____ minutes.
--- NOTE | 2022-05-26 14:38 | P.BOP_ITS ---
Brief Operative Note Date of Service: 05/26/22 Pre-op diagnosis: Lumbar spondylosis Post-op diagnosis: same Procedure: Radiofrequency ablation of the right L3 and L4 medial branches and L5 dorsal ramus under fluoroscopy Implants: None Surgeon: Rosendo Pacheco MD Anesthesia: MAC Was an Supervisor Sunglasses used for this Procedure?: No Estimated blood loss (mL): 2 Pathology: none sent Condition: stable Disposition: PACU
--- NOTE | 2022-05-26 14:38 | P.OP_ITS ---
Operative Note Operative Note Date of Service: 05/26/22 Narrative: Radiofrequency lesioning medial branch nerves, Right L3, L4 medial branches and L5 dorsal ramus (L4/5 and L5/S1) (2 levels, 3 nerves) After obtaining written consent, pre-procedure blood pressure and heart rate were stable and recorded in the nursing record. Standard monitors were applied. The patient was placed in the prone position and sedated by the cashier tube room. The lumbar area was prepped with chloraprep and draped in sterile fashion. The skin over the target for each medial branch nerve was anesthetized with 0.5% lidocaine. An 18 gauge radiofrequency cannula was advanced to each target site under fluoroscopic guidance. No paresthesias were elicited with needle placement and aspiration was negative for heme and CSF. Impedences were verified under 600 ohms. Sensory testing (50 Hz) and then motor testing (2 Hz) confirmed needle placement at each site within the appropriate voltage thresholds. Each site was injected with 0.5 ml 2% preservative-free lidocaine. Radiofrequency lesioning was performed for 90 seconds at 80 deg Celcius. Each site was then injected with 0.5ml 2% lidocaine. The needle was removed, skin cleansed and a sterile bandage was applied. The patient tolerated the procedure well and no complications were encountered. Following the procedure the patient's vital signs were stable and her lower extremity strength was equal bilaterally. The patient was discharged home in good condition with post-procedural instructions. Time Out: Immediately prior to the procedure, the following was verbally confirmed that there is a signed consent form and that the correct patient, p lanned procedure, site and side are consistent with documentation and that necessary equipment and/or blood products are available prior to the start of the case. Complications: none EBL: <5 cc
[2022-05-26 14:45] VITALS: BP 142/65; PULSE 79; RESP 17; TEMP 36.6; O2SAT 100
[2022-05-26 15:01] VITALS: BP 162/77; PULSE 75; RESP 18; TEMP 36.1; O2SAT 98
== END 2022-05-26 15:52 | disposition home or self-care (01) ==
PROVIDERS: PCP Internal Medicine; Visit Provider Internal Medicine
PROC: (CPT 64635; principal; 2022-05-26 13:10)
DX: M47.816 Spondylosis without myelopathy or radiculopathy, lumbar region (principal); G89.4 Chronic pain syndrome; M25.551 Pain in right hip; M25.50 Pain in unspecified joint; Z79.891 Long term (current) use of opiate analgesic; I10 Essential (primary) hypertension; I25.10 Atherosclerotic heart disease of native coronary artery without angina pectoris; E78.00 Pure hypercholesterolemia, unspecified; E66.9 Obesity, unspecified; Z68.36 Body mass index [BMI] 36.0-36.9, adult; G47.33 Obstructive sleep apnea (adult) (pediatric); Z79.899 Other long term (current) drug therapy; Z88.0 Allergy status to penicillin
CPT/HCPCS: 64635; 64636; J1100; J1885

== ENCOUNTER → 2022-06-03 09:24 | Outpatient (BNVA) | payer OTHER, SELFPAY | PROVIDERS: PCP Internal Medicine; Visit Provider Nurse Practitioner Family | DX: Z51.81 Encounter for therapeutic drug level monitoring (principal); M47.816 Spondylosis without myelopathy or radiculopathy, lumbar region; M47.27 Other spondylosis with radiculopathy, lumbosacral region; G89.4 Chronic pain syndrome; Z79.891 Long term (current) use of opiate analgesic | CPT/HCPCS: 99212 ==

== ENCOUNTER 2022-06-16 05:49 | Outpatient (REF) | payer OTHER, SELFPAY ==
--- NOTE | ~2022-06-16 | FL_ITS ---
EXAMINATION: XR FLUOROSCOPY WITH IMAGES CLINICAL INFORMATION: M54.16 - Radiculopathy, lumbar region COMPARISON: MR lumbar spine 03/05/2022 TECHNIQUE: Fluoroscopy Supervised By: Dr. Rosendo Pacheco. Fluoroscopy Time: 0.3 minutes. Cumulative Dose: 6.54 mGy. DAP: 0.665 Gycm2. Images: 5. FINDINGS: There is a spinal needle with tip at the outer right L4 neural foramen. There is contrast seen in the respective nerve sheath along with early transforaminal epidural extension. No visible vascular communication. FL/FL guidance in treatment room IMPRESSION: Fluoroscopy for pain management procedures.
== END 2022-06-16 05:50 | disposition home or self-care (01) ==
LOC: CF 05:49
PROVIDERS: Visit Provider Internal Medicine
DX: M54.16 Radiculopathy, lumbar region (principal); Z79.899 Other long term (current) drug therapy
CPT/HCPCS: 64483; J1100

== ENCOUNTER → 2022-06-29 09:53 | Outpatient (BNVA) | payer OTHER, SELFPAY | PROVIDERS: PCP Internal Medicine; Visit Provider Nurse Practitioner Family ==

== ENCOUNTER → 2022-07-06 08:57 | Outpatient (BNVA) | payer OTHER, SELFPAY | PROVIDERS: PCP Internal Medicine; Visit Provider Nurse Practitioner Family | DX: M54.16 Radiculopathy, lumbar region (principal); Z98.890 Other specified postprocedural states | CPT/HCPCS: 99212 ==

== ENCOUNTER 2022-07-07 11:21 | Day surgery (SDC) | payer OTHER, SELFPAY ==
[2022-06-02 13:30] VITALS: BMI 36.9
--- NOTE | 2022-07-06 10:49 | P.CONAN_ITS ---
Documented by User: Christine Callaway NP 07/06/22 10:51 HPI - Anesthesia Eval Consult details Narrative: 67yo F for Left L3-L4-L5 Medial Branch Radiofrequency AB s/p same 05/2022 with MAC Buprenorphine patch PMFSH Active Problems Active Problems: All Active Problems (Updated 06/16/22 @ 06:16 by LESLEY Ching) Nephrolithiasis (Acute) Spondylosis of lumbosacral spine with radiculopathy (Acute) Long-term current use of opiate analgesic (Acute) Mild depression (Acute) Moderate anxiety (Acute) Bilateral hand numbness (Acute) Bilateral primary osteoarthritis of knee (Acute) Chronic pain syndrome (Acute) Nocturia more than twice per night (Acute) Preoperative examination (Acute) Status post total knee replacement, right (Acute) Osteoarthritis of right knee (Acute) Food sticks on swallowing (Acute) Back pain (Acute) Opioid contract exists (Acute) Right hip pain (Acute) Polyarthralgia (Acute) Urinary incontinence (Acute) Lumbar radiculopathy (Acute) Lumbar spondylosis (Acute) Foot pain, bilateral (Acute) BRIDGETTE (obstructive sleep apnea) (Acute) Asthma (Acute) Urticaria (Acute) Obesity (BMI 30-39.9) (Acute) Vitamin D deficiency (Acute) Chronic interstitial cystitis (Acute) Irritable bowel syndrome (IBS) (Acute) Esophageal stricture (Acute) GERD (gastroesophageal reflux disease) (Acute) Left lumbar radiculopathy (Acute) CAD (coronary artery disease) (Acute) Pure hypercholesterolemia (Acute) Benign essential hypertension (Acute) Past Medical History Medical History KAMILA positive Anxiety Arthralgia Asthma Benign essential hypertension CAD (coronary artery disease) Chronic interstitial cystitis Depression Dyspnea Esophageal stricture Foot pain, bilateral GERD (gastroesophageal reflux disease) Insomnia Irritable bowel syndrome (IBS) Left lumbar radiculopathy Lumbar spondylosis Obesity (BMI 30-39.9) BRIDGETTE (obstructive sleep apnea) Osteoarthritis Osteoarthritis of right knee Pure hypercholesterolemia Urticaria Vitamin D deficiency Family History Family History Father Hypertension Mother Hypertension Diabetes CVD (cardiovascular disease) Daughter No problems noted. Family/Other FH: mental illness Other Mental health problem Substance abuse Family history of problems with anesthesia: No Surgical History Surgical History History of cardiac catheterization History of colonoscopy History of nephrolithotomy with removal of calculi History of surgery History of tooth extraction History of total right knee replacement (09/22/21) Hx of cystoscopy Status post balloon dilatation of esophageal stricture (~2005) History of Problems with Anesthesia: No Social History Social History Housing: Apartment Are you a primary healthcare administration intern to a significant other at home: No Do you presently have visiting nurse or other home services: No Alcohol intake: never Patient Tobacco Use Status: Never used Tobacco e-Cigarette/Vaping Use: Never Used Second Hand Smoke Exposure: No Are you DNR?: No Advance Directives: No Advance Directives Information Provided: Yes service: No Current occupational status: disabled Cognitive needs: No Hearing needs: No Vision needs: Yes Meds Allergies Allergy/AdvReac Type Severity Reaction Status Date / Time Penicillins [PENICILLINS] Allergy Intermediate RASH Verified 07/06/22 09:15 Home Medications Medication Instructions Recorded Confirmed Last Taken Type dupilumab 300 mg/2 mL subcutaneous 300 mg subcut Q2W 12/03/20 07/06/22 Unknown History pen injector (Dupixent) trazodone 100 mg tablet 200 mg PO BEDTIME PRN Insomnia 12/15/21 07/06/22 Unknown History quetiapine 50 mg tablet 50 mg PO BEDTIME 03/15/22 07/06/22 Unknown History escitalopram oxalate 20 mg tablet 20 mg PO DAILY 04/13/22 07/06/22 Unknown History triamcinolone acetonide 0.1 % g topical 06/03/22 07/06/22 Unknown History topical ointment Exam Exam Date and Time: July 06, 2022 1049 Height,Weight and Vital Signs: Height 4 ft 11 in Weight 83.007 kg Pertinent Lab Results Pertinent Lab Results: Laboratory Tests 12/01/21 12/01/21 10:36 10:36 WBC 6.6 Hgb 11.0 L D Hct 35.0 L D Plt Count 248 D Sodium 143 Potassium 4.1 Chloride 104 Carbon Dioxide 29 BUN 16 D Creatinine 0.83 Narrative Narrative: EKG 08/2021 Vent. Rate : 067 BPM ? ? Atrial Rate : 067 BPM ?? P-R Int : 144 ms? QRS Dur : 082 ms ? ? QT Int : 384 ms ? ? ? P-R-T Axes : 059 014 069 degrees ?? QTc Int : 405 ms ? Normal sinus rhythm ST & T wave abnormality, consider anterior ischemia Abnormal ECG When compared to the previous EKG of T wave changes in anterior leads are more evident Assessment and Plan Assessment Anesthesia Assessment: Chart Reviewed Final Anesthetic Review Family History of Problems with Anesthesia: No History of Problems with Anesthesia: No Documented by User: Betty Nunez MD 07/07/22 13:06 PMFSH Past Medical History Medical History KAMILA positive Anxiety Arthralgia Asthma Benign essential hypertension CAD (coronary artery disease) Chronic interstitial cystitis Depression Dyspnea Esophageal stricture Foot pain, bilateral GERD (gastroesophageal reflux disease) Insomnia Irritable bowel syndrome (IBS) Left lumbar radiculopathy Lumbar spondylosis Obesity (BMI 30-39.9) BRIDGETTE (obstructive sleep apnea) Osteoarthritis Osteoarthritis of right knee Pure hypercholesterolemia Urticaria Vitamin D deficiency Family History Family History Father Hypertension Mother Hypertension Diabetes CVD (cardiovascular disease) Daughter No problems noted. Family/Other FH: mental illness Other Mental health problem Substance abuse Surgical History Surgical History History of cardiac catheterization History of colonoscopy History of nephrolithotomy with removal of calculi History of surgery History of tooth extraction History of total right knee replacement (09/22/21) Hx of cystoscopy Status post balloon dilatation of esophageal stricture (~2005) Social History Social History Housing: Apartment Are you a primary healthcare administration intern to a significant other at home: No Do you presently have visiting nurse or other home services: No Alcohol intake: never Patient Tobacco Use Status: Never used Tobacco e-Cigarette/Vaping Use: Never Used Second Hand Smoke Exposure: No Are you DNR?: No Advance Directives: No Advance Directives Information Provided: Yes service: No Current occupational status: disabled Cognitive needs: No Hearing needs: No Vision needs: Yes Meds Allergies Allergy/AdvReac Type Severity Reaction Status Date / Time Penicillins [PENICILLINS] Allergy Intermediate RASH Verified 07/06/22 09:15 Home Medications Medication Instructions Recorded Confirmed Last Taken Type dupilumab 300 mg/2 mL subcutaneous 300 mg subcut Q2W 12/03/20 07/06/22 Unknown History pen injector (Dupixent) trazodone 100 mg tablet 200 mg PO BEDTIME PRN Insomnia 12/15/21 07/06/22 Unknown History quetiapine 50 mg tablet 50 mg PO BEDTIME 03/15/22 07/06/22 Unknown History escitalopram oxalate 20 mg tablet 20 mg PO DAILY 04/13/22 07/06/22 Unknown History triamcinolone acetonide 0.1 % g topical 06/03/22 07/06/22 Unknown History topical ointment Exam Airway Mallampati Class: II TM Dist: >3cm Neck ROM: Full Denture: Upper and Lower Heart: rrr Lungs: cta Assessment and Plan Assessment Anesthesia Assessment: Anesthesia Plan Discussed Final Anesthetic Review NPO: Yes ASA Class: III Final Preanesthetic Review: No Changes in Pt Med Stat, Meds/Allgs Chart Reviewed, Consent Obtained/Reviewed and Anes Risks/Benef Reviewed Patient Risk: Intermediate Procedure Risk: Low Anesthetic Plan Anesthetic Plan: MAC: and Agree w/ Assess. and Plan Disposition: Standard PACU
--- NOTE | ~2022-07-07 | FL_ITS ---
EXAMINATION: XR FLUOROSCOPY WITH IMAGES CLINICAL INFORMATION: Lumbar medial branch RF left COMPARISON: MR lumbar spine 03/05/2022 TECHNIQUE: Fluoroscopy Supervised By: Dr. Rosendo Pacheco. Fluoroscopy Time: 0.3 minutes. Cumulative Dose: 8.49 mGy. DAP: 0.785 Gycm2. Images: 4. FINDINGS: There are spinal needle electrodes overlying the outer left L3, L4, and L5 neural foramen. FL/FL guidance in OR IMPRESSION: Fluoroscopy for pain management procedures.
[2022-07-07 12:04] VITALS: BP 155/85; PULSE 75; RESP 18; TEMP 36.3; O2SAT 97
[2022-07-07] MEDS: Lactated Ringers 1,000 ML 100 ML IVCONT (12:27)
[2022-07-07 15:02] VITALS: BP 149/78; PULSE 79; RESP 16; TEMP 37.3; O2SAT 96
--- NOTE | 2022-07-07 15:02 | P.OP_ITS ---
Operative Note Operative Note Date of Service: 07/07/22 Narrative: Radiofrequency lesioning medial branch nerves, Left L3, L4 medial branches and L5 dorsal ramus (L4/5 and L5/S1) (2 levels, 3 nerves) After obtaining written consent, pre-procedure blood pressure and heart rate were stable and recorded in the nursing record. Standard monitors were applied. The patient was placed in the prone position and sedated by the social worker psychiatric. The lumbar area was prepped with chloraprep and draped in sterile fashion. The skin over the target for each medial branch nerve was anesthetized with 0.5% lidocaine. An 18 gauge radiofrequency cannula was advanced to each target site under fluoroscopic guidance. No paresthesias were elicited with needle placement and aspiration was negative for heme and CSF. Impedences were verified under 600 ohms. Sensory testing (50 Hz) and then motor testing (2 Hz) confirmed needle placement at each site within the appropriate voltage thresholds. Each site was injected with 0.5 ml 2% preservative-free lidocaine. Radiofrequency lesioning was performed for 90 seconds at 80 deg Celcius. Each site was then injected with 0.5ml 2% lidocaine. The needle was removed, skin cleansed and a sterile bandage was applied. The patient tolerated the procedure well and no complications were encountered. Following the procedure the patient's vital signs were stable. The patient was discharged home in good condition with post-procedural instructions. Time Out: Immediately prior to the procedure, the following was verbally confirmed that there is a signed consent form and that the correct patient, planned procedure, site and side are consistent with documentation and that necessary equipment and/or blood products are available prior to the start of the case. Complications: none EBL: <3 cc
--- NOTE | 2022-07-07 15:02 | MHC.SHP ---
Pre-Procedural Eval Section A Date of Service: 07/08/22 The patient is an INPATIENT: No Changes since office visit: Yes Patient answered all questions The History & Physical has been completed within 30 days and I have reviewed it.: Yes Section B Chief Complaint: Spondylosis without myelopathy or radiculopathy, Relevant Social History: None Present Medications: see Short Stay Collaborative assessment History of Previous Operations: No relevant previous surgery Allergies: Allergies Allergy/AdvReac Type Severity Reaction Status Date / Time Penicillins [PENICILLINS] Allergy Intermediate RASH Verified 07/06/22 09:15 Review of Systems Sugical H&P ROS: Negative: Constitution, Cardiovascular and Respiratory Exam Surgical H&P Exam: Normal: HEENT, Normal: Heart and Normal: Lungs Plan Diagnosis/Plan: Unchanged I have reviewed the history and physical and performed a pertinent physical examination on my patient. No changes have occurred unless specified. Time Spent With Patient Time: Total time managing care of this patient today ____ minutes.
--- NOTE | 2022-07-07 15:02 | PM.OP ---
Brief Operative Note Date of Service: 07/07/22 Pre-op diagnosis: Lumbar spondylosis Post-op diagnosis: same Procedure: Radiofrequency lesioning medial branch nerves, left L3, L4 medial branches and L5 dorsal ramus (L4/5 and L5/S1) (2 levels, 3 nerves) Implants: None Surgeon: Rosendo Pacheco MD Anesthesia: MAC Was an Infrastructure Solutions Architect used for this Procedure?: No Estimated blood loss (mL): 2 Pathology: none sent Condition: stable Disposition: PACU
[2022-07-07 15:17] VITALS: BP 176/86; PULSE 73; RESP 16; TEMP 36.8; O2SAT 96
[2022-07-07 15:32] VITALS: BP 179/90; PULSE 69; RESP 15; TEMP 36.8; O2SAT 98
== END 2022-07-07 15:54 | disposition home or self-care (01) ==
PROVIDERS: PCP Internal Medicine; Visit Provider Internal Medicine
PROC: (CPT 64635; principal; 2022-07-07 12:40)
DX: M47.816 Spondylosis without myelopathy or radiculopathy, lumbar region (principal); M47.27 Other spondylosis with radiculopathy, lumbosacral region; G89.4 Chronic pain syndrome; M25.551 Pain in right hip; Z79.891 Long term (current) use of opiate analgesic; E66.9 Obesity, unspecified; Z68.36 Body mass index [BMI] 36.0-36.9, adult; Z79.899 Other long term (current) drug therapy
CPT/HCPCS: 64635; 64636; J2250

== ENCOUNTER → 2022-07-27 10:29 | Outpatient (BNVA) | payer OTHER, SELFPAY | PROVIDERS: PCP Internal Medicine; Visit Provider Nurse Practitioner Family | DX: Z51.81 Encounter for therapeutic drug level monitoring (principal); F11.20 Opioid dependence, uncomplicated; M47.816 Spondylosis without myelopathy or radiculopathy, lumbar region; M47.27 Other spondylosis with radiculopathy, lumbosacral region; G89.4 Chronic pain syndrome; Z79.891 Long term (current) use of opiate analgesic | CPT/HCPCS: 99212 ==

== ENCOUNTER 2022-08-09 08:15 | Outpatient (REF) | payer OTHER, SELFPAY ==
[2022-08-09 09:17] LABS: Alanine Aminotransferase 9 U/L (0-31); Albumin Level 4.2 g/dL (3.5-5.0); Alkaline Phosphatase 94 U/L (39-117); Anion Gap 10 (12-20); Aspartate Amino Transferase 14 U/L (5-31); Bilirubin Total 0.3 mg/dL (0.0-1.0); Blood Urea Nitrogen 13 mg/dL (9-16); Calcium 9.4 mg/dL (8.4-10.2); Carbon Dioxide 31 mmol/L (22-29); Chloride 107 mmol/L (96-108); Cholesterol 219 mg/dL; Estimated Glomerular Filt Rate > 60; Glucose Fasting 95 mg/dL (60-99); HDL Cholesterol 45 mg/dL; LDL Cholesterol Calculated 139 mg/dl; Potassium 4.1 mmol/L (3.3-5.1); Sodium 144 mmol/L (135-145); Total Protein 6.8 g/dL (6.5-8.0); Triglycerides 178 mg/dL
== END 2022-08-09 08:16 | disposition home or self-care (01) ==
LOC: HO.LAB 08:15
PROVIDERS: PCP Internal Medicine; Visit Provider Internal Medicine
DX: E78.00 Pure hypercholesterolemia, unspecified (principal)
CPT/HCPCS: 36415; 80053; 80061

== ENCOUNTER 2022-08-12 08:32 | Outpatient (REF) | payer OTHER, MEDICAID, SELFPAY ==
--- NOTE | ~2022-08-12 | XR_ITS ---
EXAMINATION: XR knee RT 2V, XR knee standing BI CLINICAL INFORMATION: Reason for Exam M25.569 - Pain in unspecified knee COMPARISON: 01/14/2022 TECHNIQUE: 2 views of the right knee and standing view of the bilateral knees XR/XR knee RT 2V FINDINGS/IMPRESSION: * Status post right total knee arthroplasty without evidence of hardware complication. * Mild to moderate degenerative changes of the left knee joint. * Small suprapatellar effusion.
--- NOTE | ~2022-08-12 | XR_ITS ---
EXAMINATION: XR knee RT 2V, XR knee standing BI CLINICAL INFORMATION: Reason for Exam M25.569 - Pain in unspecified knee COMPARISON: 01/14/2022 TECHNIQUE: 2 views of the right knee and standing view of the bilateral knees XR/XR knee standing BI FINDINGS/IMPRESSION: * Status post right total knee arthroplasty without evidence of hardware complication. * Mild to moderate degenerative changes of the left knee joint. * Small suprapatellar effusion.
== END 2022-08-12 08:33 | disposition home or self-care (01) ==
LOC: HO.HOSX 08:32
PROVIDERS: Visit Provider Orthopaedic Surgery
DX: M25.561 Pain in right knee (principal); Z96.651 Presence of right artificial knee joint
CPT/HCPCS: 73560; 73565; 99212

== ENCOUNTER → 2022-08-24 12:57 | Outpatient (BNVA) | payer OTHER, MEDICAID, SELFPAY | PROVIDERS: PCP Internal Medicine; Visit Provider Nurse Practitioner Family | DX: M25.561 Pain in right knee (principal); G89.4 Chronic pain syndrome; M47.816 Spondylosis without myelopathy or radiculopathy, lumbar region; M47.27 Other spondylosis with radiculopathy, lumbosacral region; Z79.891 Long term (current) use of opiate analgesic | CPT/HCPCS: 99212 ==

== ENCOUNTER 2022-09-15 12:26 | Outpatient (AMB) | payer OTHER, MEDICAID, SELFPAY ==
[2022-09-15 12:33] VITALS: BP 122/60; PULSE 78; O2SAT 98; BMI 38.3
--- NOTE | 2022-09-15 12:33 | A.OFFPC_ITS ---
Vital Signs 09/15/22 12:33 Height 4 ft 11 in Weight 189 lb 8 oz BMI 38.3 BP 122/60 Blood Pressure Location Lt brachial Position Sitting Pulse 78 Pulse Source Pulse Oximeter Pulse Oximetry (%) 98 Oxygen Delivery Method Room Air Intake Visit Reasons: 3 month f/u /Lvm Intake Note: Patient is here for a three months follow up. [employer] Work[employer] Required: No Accompanied by: Self / Same As Patient Allergies Penicillins [PENICILLINS] Allergy (Intermediate, Verified 02/08/24 14:23) RASH Medication List - Last Reconciled 09/15/22 by Curt Falk MD acetaminophen 650 mg (2 x 325 mg) PO Q6H PRN 30 days [ADULT PULL-UPS (medium) As directed] albuterol sulfate 90 mcg/actuation 2 puffs PO Q6H PRN blood pressure kit-extra large As directed buprenorphine 20 mcg/hour 1 patch transdermal Q7D 28 days cane Cane dupilumab (Dupixent) 300 mg subcut Q2W dupilumab (Dupixent) mg subcut escitalopram oxalate 20 mg PO DAILY ezetimibe 10 mg PO DAILY fluticasone furoate-vilanterol 200-25 mcg/dose (Breo Ellipta) 1 inh inhalation DAILY 30 days naloxone 4 mg/actuation (Narcan) 4 mg intranasal Q3M PRN omeprazole 40 mg PO DAILY 90 days oxycodone 5 mg PO DAILY PRN 30 days quetiapine 50 mg PO BEDTIME tizanidine 4 mg PO Q8H PRN 30 days trazodone 200 mg PO BEDTIME PRN triamcinolone acetonide 0.5% 1 appl topical DAILY triamcinolone acetonide 0.1% grams topical Tobacco use date assessed: 09/15/22 Fall risk assessment: No Falls in past year HPI 3 month f/u /Lvm HPI Details Patient comes in today for her follow up visit States that she feels okay She denies any headaches or dizziness Denies any chest pains, no SOB No nausea/vomiting, no abdominal pain No change in bowel habits noted States that her chronic low back pain remains adequately controlled - she continues to follow up with pain management regularly every month She had her follow up labs done last month - to discuss her results [facility] Medical History (Updated 02/12/24 @ 15:00 by Curt Falk MD) Depression Anxiety Insomnia Myalgia, upper arm Osteoarthritis of right knee Lumbar spondylosis Foot pain, bilateral BRIDGETTE (obstructive sleep apnea) Asthma KAMILA positive Urticaria Obesity (BMI 30-39.9) Vitamin D deficiency Chronic interstitial cystitis Irritable bowel syndrome (IBS) Arthralgia Osteoarthritis Esophageal stricture GERD (gastroesophageal reflux disease) Left lumbar radiculopathy CAD (coronary artery disease) Pure hypercholesterolemia Benign essential hypertension Surgical History History of surgery History of total right knee replacement (09/22/21) Hx of cystoscopy Status post balloon dilatation of esophageal stricture (~2005) History of cardiac catheterization History of colonoscopy History of nephrolithotomy with removal of calculi History of tooth extraction Family History Father Hypertension Mother Hypertension Diabetes CVD (cardiovascular disease) Daughter No problems noted. Family/Other FH: mental illness Other Mental health problem Substance abuse Social History Housing: Apartment Are you a primary wound care center consultant to a significant other at home: No Do you presently have visiting nurse or other home services: No Alcohol intake: never Comment: medicated, see MAR Patient Tobacco Use Status: Never used Tobacco e-Cigarette/Vaping Use: Never Used Second Hand Smoke Exposure: No service: No Current occupational status: disabled Cognitive needs: No Hearing needs: No Vision needs: Yes Questionnaire PHQ-9 Over the last 2 weeks, how often have you been bothered by any of the following problems? 1. Little interest or pleasure in doing things: not at all 2. Feeling down, depressed, or hopeless: not at all 3. Trouble falling or staying asleep, or sleeping too much: not at all 4. Feeling tired or having little energy: not at all 5. Poor appetite or overeating: not at all 6. Feeling bad about yourself - or that you are a failure or have let yourself or your family down: not at all 7. Trouble concentrating on things, such as reading the newspaper or watching television: not at all 8. Moving or speaking so slowly that other people could have noticed. Or the opposite - being so fidgety or restless that you have been moving around a lot more than usual: not at all 9. Thoughts that you would be better off or of hurting yourself in some way: not at all Total score: 0 Depression Screening Interpretation: Negative (Rx is helping with her depression) 28237 - PHQ-9 Billing: Yes Source: Developed by Drs. Jorge Diallo, Yumiko Irvin, Celestino Banda and colleagues, with an educational mari from [employer]. Thrive Questionnaire Date Thrive assessed: 09/15/22 I am a: Patient What is your living situation today?: I have a steady place to live Within the past 12 months, did the food you bought not last and you didn't have the money to get more?: Never true Within the past 12 months, did you worry whether your food would run out before you got money to buy more?: Never true Do you have trouble paying for medicines?: No Do you have trouble getting transportation to medical appointments?: No Do you have trouble paying your heating and electricity bill?: No Do you have trouble taking care of your child, family member or friend?: No Do you have trouble with day-to-day activities such as bathing, preparing meals, shopping, managing finances, etc.?: No Are you currently unemployed and looking for a job?: No Are you interested in more education?: No Currently or been in a relationship where the following occur: no concerns reported AUDIT C Alcohol Use Questionnaire (AUDIT-C) 1. How often do you have a drink containing alcohol?: Never 2. How many drinks containing alcohol do you have on a typical day when you are drinking?: 1 or 2 3. How often do you have six or more drinks on one occasion?: Never Total Score: 0 Score Reviewed/Action Taken: Yes ADRIANA-7 AMB Questionnaire ADRIANA-7 Date ADRIANA - 7 assessed: 09/15/22 Feeling nervous, anxious, or on edge: 0 = Not at all Not being able to stop or control worryin = Not at all Worrying too much about different things: 0 = Not at all Trouble relaxin = Not at all Being so restless that it is hard to sit still: 0 = Not at all Becoming easily annoyed or irritable: 0 = Not at all Feeling afraid as if something awful might happen: 0 = Not at all Total ADRIANA-7 score (0-4 normal; 5-9 mild; 10-14 moderate; 15-21 severe): 0 Source: Developed by Drs. Jorge Diallo, Yumiko Irvin, Celestino Banda and colleagues, with an educational mari from [employer]. Review of Systems Const Reports difficulty sleeping (mostly due to frequent trips to the bathroom), Denies fatigue, Denies fever(s) and Denies headache(s) ENT Denies dysphagia, Denies dizziness, Denies otalgia, Denies headache(s), Denies neck pain, Denies odynophagia and Denies sore throat Card Denies chest pain, Denies palpitations and Denies dyspnea Resp Denies chest congestion, Denies cough and Denies dyspnea GI Denies abdominal pain, Denies constipation, Denies dysphagia, Denies heartburn, Denies diarrhea, Denies nausea, Denies odynophagia and Denies vomiting Denies difficulty voiding, Reports nocturia, Reports dysuria (on and off - has chronic IC) and Reports urinary urgency (at times) Musc Reports back pain (over the right lower back), Reports arthralgias (involving multiple joints - right knee and hip and right shoulder), Denies neck pain, Reports radiating pain into limb (into the right thigh and leg; right shoulder pain going into neck/arm) and Reports stiffness Skin/Breast Denies rash Neuro Denies dizziness and Denies headache(s) Psych Denies anxiety Endo Denies fatigue and Denies palpitations Stanton/Lymph Details: swelling of both hands and feet lately Physical exam (Primary Care) Vital Signs: Last Vital Signs Pulse 78 09/15/22 12:33 BP 122/60 09/15/22 12:33 Pulse Ox 98 09/15/22 12:33 Oxygen Delivery Method Room Air 09/15/22 12:33 BMI result Body Mass Index 38.3 Tobacco/Smoking Status: Tobacco use Status Tobacco use date assessed 09/15/22 09/15/22 12:41 Patient Tobacco Use Status Never used Tobacco 09/15/22 12:41 Tobacco use type 05/04/22 10:14 e-Cigarette/Vaping Use Never Used 09/15/22 12:41 PHQ-9: PHQ-9 Score PHQ-9: Total score 0 09/15/22 13:05 Depression Screening Interpretation: Negative (Rx is helping with her depression) Thrive Assessment: Date of Thrive Assessment Date Thrive assessed 09/15/22 09/15/22 12:41 Currently or been in a relationship where the following occur: no concerns reported Const General: no acute distress and alert HENMT Ears: TM's normal bilaterally and EAC's normal Throat: Yes posterior oropharynx normal and Yes tonsils normal (no TP congestion noted) Neck Neck: Yes no lymphadenopathy and Yes supple Thyroid: Thyroid normal Resp Auscultation: clear to auscultation bilaterally, no rales and no wheezes Cardio Rate: regular rate Rhythm: regular rhythm Heart sounds: no murmurs GI Palpation (GI): Soft to palpation and nontender Auscultation: normal bowel sounds General: Yes no CVA tenderness Back/Spine/Pelvis Back: no CVA tenderness Thoracic/Lumbar Spine: paraspinal muscle tenderness on the right, lumbar spinal tenderness (chronic) and straight leg raise positive (slightly ) Skin Rashes: no rashes Extrem General: Yes no clubbing, cyanosis or edema Right upper extremity: shoulder/upper arm Details: tenderness Location: of the A-C joint and abnormal ROM (ROM limited due to pain - unable to raise right arm above shoulder level) Right lower extremity: knee Details: tenderness; no swelling Left lower extremity: knee Details: tenderness; no swelling Results Reviewed Results Reviewed: Laboratory Tests 08/09/22 08:25 Sodium 144 Potassium 4.1 Creatinine 0.83 Estimated GFR > 60 Fasting Glucose 95 Calcium 9.4 AST 14 ALT 9 Triglycerides 178 Cholesterol 219 LDL Cholesterol, Calc 139 HDL Cholesterol 45 Coding Level of Care Code Est Pt Level 4 (31885) Diagnoses Spondylosis of lumbosacral spine with radiculopathy M47.27 Right hip pain M25.551 Bilateral primary osteoarthritis of knee M17.0 Polyarthralgia M25.50 Pure hypercholesterolemia E78.00 Benign essential hypertension I10 Moderate persistent asthma without complication J45.40 Asthma complication type: uncomplicated Asthma persistence: persistent Asthma severity: moderate Gastroesophageal reflux disease without esophagitis K21.9 Esophagitis presence: without esophagitis Esophageal stricture K22.2 Vitamin D deficiency E55.9 Irritable bowel syndrome, unspecified type K58.9 Irritable bowel syndrome type: unspecified Chronic interstitial cystitis N30.10 Nephrolithiasis N20.0 Insomnia, unspecified type G47.00 Insomnia type: unspecified Anxiety F41.9 Episode of recurrent major depressive disorder, unspecified depression episode severity F33.9 Active/Remission status: currently active Depression Type: major depressive disorder Major depression episode severity: unspecified Major depression recurrence: recurrent Obesity (BMI 30-39.9) E66.9
== END 2022-09-15 13:07 | disposition home or self-care (01) ==
LOC: HO.HMGH 12:26
PROVIDERS: PCP Internal Medicine; Visit Provider Internal Medicine
DX: M47.27 Other spondylosis with radiculopathy, lumbosacral region (principal); M25.551 Pain in right hip; M17.0 Bilateral primary osteoarthritis of knee; F33.9 Major depressive disorder, recurrent, unspecified; M25.50 Pain in unspecified joint; E78.00 Pure hypercholesterolemia, unspecified; I10 Essential (primary) hypertension; J45.40 Moderate persistent asthma, uncomplicated; K21.9 Gastro-esophageal reflux disease without esophagitis; K22.2 Esophageal obstruction; E55.9 Vitamin D deficiency, unspecified; K58.9 Irritable bowel syndrome, unspecified
CPT/HCPCS: 99499

== ENCOUNTER → 2022-09-23 12:48 | Outpatient (BNVA) | payer OTHER, MEDICAID, SELFPAY | PROVIDERS: PCP Internal Medicine; Visit Provider Nurse Practitioner Family | DX: Z51.81 Encounter for therapeutic drug level monitoring (principal); F11.20 Opioid dependence, uncomplicated; M47.816 Spondylosis without myelopathy or radiculopathy, lumbar region; M47.27 Other spondylosis with radiculopathy, lumbosacral region; M25.561 Pain in right knee; G89.4 Chronic pain syndrome; Z79.891 Long term (current) use of opiate analgesic | CPT/HCPCS: 99212 ==

== ENCOUNTER 2022-09-23 13:27 | Emergency (ER) | payer OTHER, SELFPAY ==
--- NOTE | ~2022-09-23 | XR_ITS ---
EXAMINATION: XR CHEST CLINICAL INFORMATION: Pain COMPARISON: Chest radiograph from 02/01/2022 TECHNIQUE: 2 views of the chest were obtained. FINDINGS: No focal consolidation. No pneumothorax. Trachea is midline. Cardiomediastinal silhouette is not enlarged. No large pleural effusion. Slight dextrocurvature of the mid thoracic spine with multilevel degenerative changes. Soft tissues are unremarkable. XR/XR chest 2V IMPRESSION: No acute cardiopulmonary process.
--- NOTE | 2022-09-23 13:30 | ECG_ITS ---
Test Reason : cp Blood Pressure : / mmHG Vent. Rate : 069 BPM Atrial Rate : 069 BPM P-R Int : 136 ms QRS Dur : 084 ms QT Int : 392 ms P-R-T Axes : 051 006 263 degrees QTc Int : 420 ms Normal sinus rhythm ST & T wave abnormality, consider anterolateral ischemia Abnormal ECG When compared with ECG of 25-AUG-2021 11:46, Nonspecific T wave abnormality now evident in Inferior leads Referred By: Torsten Shoemaker Electronically Signed By:Vikas Manzano
[2022-09-23 13:36] VITALS: BP 152/68; PULSE 96; RESP 18; TEMP 36.1; O2SAT 96; BMI 38.8
--- NOTE | 2022-09-23 13:36 | ED.GENADULT ---
HPI - General Adult General Chief complaint: Chest Pain Stated complaint: Chest pain Time Seen by Provider: 09/23/22 14:55 Source: patient Mode of arrival: ambulatory Limitations: no limitations History of Present Illness HPI narrative: 67-year-old female presents with chest pain. Chest pain started 3 days ago. It is intermittent. She is having 6 episodes per day. She says that is substernal and can radiate to the left jaw. She describes the pain as ?severe? rated a 5/10. When she gets the pain it is last for about 30 minutes. Is not associated with nausea vomiting or shortness of breath. It is not exertional in nature. She has a remote history of a cardiac catheterization 11 years ago [facility] [place] which she reports was normal. Patient denies any recent surgery or long distance travel. She denies any swelling in lower extremities. She denies any shortness of breath. There is no clear precipitating factor to her symptoms. She has had no fevers or chills or cough. Related Data Home Medications Medication Instructions Recorded Confirmed dupilumab 300 mg/2 mL subcutaneous 300 mg subcut Q2W 12/03/20 09/15/22 pen injector ([employer] [employer]) trazodone 100 mg tablet 200 mg PO BEDTIME PRN Insomnia 12/15/21 09/15/22 quetiapine 50 mg tablet 50 mg PO BEDTIME 03/15/22 09/15/22 escitalopram oxalate 20 mg tablet 20 mg PO DAILY 04/13/22 09/15/22 triamcinolone acetonide 0.1 % g topical 06/03/22 09/15/22 topical ointment dupilumab 300 mg/2 mL subcutaneous mg subcut 08/24/22 09/15/22 syringe ([employer]) Previous Rx's Medication Instructions Recorded blood pressure kit-extra large #1 ea 01/22/21 albuterol sulfate 90 mcg/actuation 2 puff PO Q6H PRN for wheezing 03/21/21 aerosol inhaler #8.5 ea triamcinolone acetonide 0.5 % 1 appl topical DAILY #15 grams 06/09/21 topical cream acetaminophen 325 mg tablet 650 mg PO Q6H PRN Pain, Mild (Pain 09/23/21 Scale 1-3) 30 days #240 tabs cane #1 ea 10/16/21 fluticasone furoate 200 1 inh inhalation DAILY 30 days #60 02/08/22 mcg-vilanterol 25 mcg/dose ea inhalation powder (Breo Ellipta) ADULT PULL-UPS (medium) #100 ea 04/07/22 naloxone 4 mg/actuation nasal 4 mg intranasal Q3M PRN opioid 04/15/22 spray (Narcan) overdose #2 ea ezetimibe 10 mg tablet 10 mg PO DAILY #90 tabs 05/31/22 omeprazole 40 mg capsule,delayed 40 mg PO DAILY 90 days #90 caps 06/23/22 release buprenorphine 20 mcg/hour weekly 1 patch transdermal Q7D pain 28 08/24/22 transdermal patch days #4 ea oxycodone 5 mg tablet 5 mg PO DAILY PRN pain, severe 30 08/24/22 days #30 tabs tizanidine 4 mg tablet 4 mg PO Q8H PRN muscle spasticity 09/06/22 30 days #90 tabs atorvastatin 10 mg tablet 10 mg PO BEDTIME 90 days #90 tabs 09/15/22 aspirin 81 mg tablet,delayed 81 mg PO DAILY #30 tabs 09/23/22 release Allergies Allergy/AdvReac Type Severity Reaction Status Date / Time Penicillins [PENICILLINS] Allergy Intermediate RASH Verified 09/23/22 13:36 Review of Systems Review of Systems: CONSTITUTIONAL: Denies weight loss, fever and chills. HEENT: Denies changes in vision and hearing. RESPIRATORY: Denies SOB and cough. CV: Denies palpitations + CP. GI: Denies abdominal pain, nausea, vomiting and diarrhea. : Denies dysuria and urinary frequency. MSK: Denies myalgia and joint pain. SKIN: Denies rash and pruritus. NEUROLOGICAL: Denies headache and syncope. PSYCHIATRIC: Denies recent changes in mood. Denies anxiety and depression. All other ROS are negative unless in HPI PMFSH Past Medical History Medical History KAMILA positive Anxiety Arthralgia Asthma Benign essential hypertension CAD (coronary artery disease) Chronic interstitial cystitis Depression Dyspnea Esophageal stricture Foot pain, bilateral GERD (gastroesophageal reflux disease) Insomnia Irritable bowel syndrome (IBS) Left lumbar radiculopathy Lumbar spondylosis Obesity (BMI 30-39.9) BRIDGETTE (obstructive sleep apnea) Osteoarthritis Osteoarthritis of right knee Pure hypercholesterolemia Urticaria Vitamin D deficiency Surgical History History of cardiac catheterization History of colonoscopy History of nephrolithotomy with removal of calculi History of surgery History of tooth extraction History of total right knee replacement (09/22/21) Hx of cystoscopy Status post balloon dilatation of esophageal stricture (~2005) Family History Family History Father Hypertension Mother Hypertension Diabetes CVD (cardiovascular disease) Daughter No problems noted. Family/Other FH: mental illness Other Mental health problem Substance abuse Social History Social History Housing: Apartment Are you a primary care director to a significant other at home: No Do you presently have visiting nurse or other home services: No Alcohol intake: never Patient Tobacco Use Status: Never used Tobacco Smoked in Last 30 Days: No e-Cigarette/Vaping Use: Never Used Second Hand Smoke Exposure: No Use of substances other than those prescribed or required for medical reasons: No Advance Directives: No service: No Current occupational status: disabled Cognitive needs: No Hearing needs: No Vision needs: Yes Physical Exam ED Vital Signs: Vital Signs - 24 hr 09/23/22 13:36 09/23/22 15:02 Temperature 96.9 F Pulse Rate 96 79 Respiratory Rate 18 20 Blood Pressure 152/68 H 173/65 H Pulse Oximetry 96 94 Oxygen Delivery Method Room Air Room Air BMI result Body Mass Index 38.8 Course Course Course Narrative: RME- 67-year-old female presents for evaluation of left-sided chest pain that radiates to her arm and her neck for the last 2 days. She does have a history of coronary artery disease. Plan for labs, chest x-ray, EKG. She is well-appearing Reevaluation(s) Reevaluation #1: Patient's workup is complete. Cardiac enzymes are negative. After 3 days of symptoms in an atypical story, there is no evidence of acute coronary syndrome. Her EKG shows no acute ischemic changes. Will discharge at this time starting on aspirin 81 mg daily. Will refer to Cardiology. She was instructed to return for any worsening or uncontrolled symptoms. Patient was also noted to have elevated blood pressure reading. She will need to follow-up with her primary care provider which she is aware of. Time: 15:14 Medical Decision Making Medical Decision Making MDM Narrative: Patient presents with chest pain. Is an atypical pain substernal radiating to left jaw but not associated with exertion. Symptoms have been intermittent for the past few days approximately 6 episodes per day. My examination is unremarkable. Differential diagnosis includes acute coronary syndrome, angina 2 atypical chest pain, GERD, esophageal spasm, pneumonia, bronchitis, pleurisy. Patient will get a chest x-ray and laboratory analysis. Differential Diagnosis Differential Diagnoses: The differential diagnosis associated with the presentation includes (See above) Admission/Observation Consideration of admission/observation: Escalation of care including admission/observation considered Lab Data [facility] Lab Attestation statement: I reviewed the patient's lab results. 09/23/22 13:51 09/23/22 13:51 Labs: Lab Results 09/23/22 09/23/22 09/23/22 Range/Units 13:51 13:51 13:51 WBC 6.6 (4.8-10.8) X10*3/uL RBC 4.16 L (4.20-5.50) X10*6/uL Hgb 11.4 L (12.0-16.0) g/dl Hct 35.5 L (37.0-47.0) % MCV 85.3 (80.0-98.0) fL MCH 27.4 (27.0-33.0) pg MCHC 32.1 (31.0-35.0) g/dl RDW 13.4 (11.0-16.0) % Plt Count 185 D (160-400) X10*3/uL MPV 11.6 (9.4-12.3) fL Immature Gran % (Auto) 0.3 (0.0-0.4) % Neut % (Auto) 59.6 (45-73) % Lymph % (Auto) 27.4 (20-40) % Hart % (Auto) 6.2 (2-11) % Eos % (Auto) 5.7 H (0-4) % Baso % (Auto) 0.8 (0-2) % Lymph # (Auto) 1.8 (1.2-4.9) X10*3/uL Hart # (Auto) 0.4 (0.1-1.2) X10*3/uL Eos # (Auto) 0.4 (0.0-0.4) X10*3/uL Baso # (Auto) 0.1 (0.0-0.2) X10*3/uL Abs Immat Gran (auto) 0.02 (0.00-0.03) X10*3/uL Absolute Neuts (auto) 4.0 (2.0-8.3) x10*3/uL Absolute Nucleated RBC 0.000 (0.0-0.012) X10*3/uL Nucleated RBC % (auto) 0.0 (0.0-0.2) /100WBC PT 10.7 (10.0-13.1) SEC INR 0.9 (0.9-1.1) APTT 30.4 (26.0-36.4) SEC Sodium 142 (135-145) mmol/L Potassium 4.1 (3.3-5.1) mmol/L Chloride 108 (96-108) mmol/L Carbon Dioxide 29 (22-29) mmol/L Anion Gap 9 L (12-20) BUN 16 (9-16) mg/dL Creatinine 0.90 (0.5-1.4) mg/dL Estim Creat Clear Calc 57.4 Estimated GFR > 60 Random Glucose 97 (60-115) mg/dL Calcium 9.5 (8.4-10.2) mg/dL Total Bilirubin 0.3 (0.0-1.0) mg/dL AST 16 (5-31) U/L ALT 9 (0-31) U/L Alkaline Phosphatase 111 (39-117) U/L Troponin I High Sens (<3.5-17.0) ng/L Total Protein 7.0 (6.5-8.0) g/dL Albumin 4.1 (3.5-5.0) g/dL Lipase 21 (8-78) U/L 09/23/22 Range/Units 13:51 WBC (4.8-10.8) X10*3/uL RBC (4.20-5.50) X10*6/uL Hgb (12.0-16.0) g/dl Hct (37.0-47.0) % MCV (80.0-98.0) fL MCH (27.0-33.0) pg MCHC (31.0-35.0) g/dl RDW (11.0-16.0) % Plt Count (160-400) X10*3/uL MPV (9.4-12.3) fL Immature Gran % (Auto) (0.0-0.4) % Neut % (Auto) (45-73) % Lymph % (Auto) (20-40) % Hart % (Auto) (2-11) % Eos % (Auto) (0-4) % Baso % (Auto) (0-2) % Lymph # (Auto) (1.2-4.9) X10*3/uL Hart # (Auto) (0.1-1.2) X10*3/uL Eos # (Auto) (0.0-0.4) X10*3/uL Baso # (Auto) (0.0-0.2) X10*3/uL Abs Immat Gran (auto) (0.00-0.03) X10*3/uL Absolute Neuts (auto) (2.0-8.3) x10*3/uL Absolute Nucleated RBC (0.0-0.012) X10*3/uL Nucleated RBC % (auto) (0.0-0.2) /100WBC PT (10.0-13.1) SEC INR (0.9-1.1) APTT (26.0-36.4) SEC Sodium (135-145) mmol/L Potassium (3.3-5.1) mmol/L Chloride (96-108) mmol/L Carbon Dioxide (22-29) mmol/L Anion Gap (12-20) BUN (9-16) mg/dL Creatinine (0.5-1.4) mg/dL Estim Creat Clear Calc Estimated GFR Random Glucose (60-115) mg/dL Calcium (8.4-10.2) mg/dL Total Bilirubin (0.0-1.0) mg/dL AST (5-31) U/L ALT (0-31) U/L Alkaline Phosphatase (39-117) U/L Troponin I High Sens < 2.7 (<3.5-17.0) ng/L Total Protein (6.5-8.0) g/dL Albumin (3.5-5.0) g/dL Lipase (8-78) U/L Independent Interpretation I performed an independent interpretation of an: EKG (Normal sinus rhythm heart rate 69, no acute ST elevations or depressions, T-wave inversions in V2 through be 6, otherwise nonspecific T-wave changes) and Plain X-Ray (Chest: No acute cardiopulmonary disease) Prescription Management I considered prescription management with: Pain Medication Discharge Plan Discharge Clinical Impression: Chest pain, Elevated blood pressure reading Patient Disposition: Home, Self-Care Instructions: Chest Pain (DC) Prescriptions: New aspirin 81 mg tablet,delayed release (DR/EC) 81 mg PO DAILY Qty: 30 0RF No Action (DME) blood pressure kit-extra large Kit See Rx Instructions .Route Qty: 1 0RF Rx Instructions: As directed albuterol sulfate 90 mcg/actuation HFA aerosol inhaler 2 puff PO Q6H PRN (Reason: for wheezing) Qty: 8.5 5RF triamcinolone acetonide 0.5 % cream 1 appl topical DAILY Qty: 15 1RF (DME) cane Device See Rx Instructions .MEDSUPPLY Qty: 1 0RF Rx Instructions: Cane Breo Ellipta 200-25 mcg/dose blister with device 1 inh inhalation DAILY 30 Days Qty: 60 11RF (DME) ADULT PULL-UPS (medium) medium See Rx Instructions .Route .MEDSUPPLY Qty: 100 12RF Rx Instructions: As directed naloxone [Narcan] 4 mg/actuation spray,non-aerosol 4 mg intranasal Q3M PRN (Reason: opioid overdose) Qty: 2 0RF Rx Instructions: spray 1 dose into ONE nostril; alternate nostrils w each dose until help arrives ezetimibe 10 mg tablet 10 mg PO DAILY Qty: 90 1RF omeprazole 40 mg capsule,delayed release(DR/EC) 40 mg PO DAILY 90 Days Qty: 90 1RF tizanidine 4 mg tablet 4 mg PO Q8H PRN (Reason: muscle spasticity) 30 Days Qty: 90 0RF Rx Instructions: Start at bedtime as medication can be sedating acetaminophen 325 mg tablet 650 mg PO Q6H PRN (Reason: Pain, Mild (Pain Scale 1-3)) 30 Days Qty: 240 0RF Dupixent Pen 300 mg/2 mL pen injector 300 mg subcut Q2W atorvastatin 10 mg tablet 10 mg PO BEDTIME 90 Days Qty: 90 1RF trazodone 100 mg tablet 200 mg PO BEDTIME PRN (Reason: Insomnia) escitalopram oxalate 20 mg tablet 20 mg PO DAILY triamcinolone acetonide 0.1 % ointment topical quetiapine 50 mg tablet 50 mg PO BEDTIME Dupixent Syringe 300 mg/2 mL syringe subcut buprenorphine 20 mcg/hour patch weekly 1 patch transdermal Q7D 28 Days Qty: 4 0RF oxycodone 5 mg tablet 5 mg PO DAILY PRN (Reason: pain, severe) 30 Days Qty: 30 0RF Rx Instructions: Partial Fill upon patient request. Referrals: Vikas Manzano MD [Physician] - 10 days Interventions: ED Discharge Assessment Last Done: 09/23/22 15:12 Discharge Date/Time: 09/23/22 15:16
[2022-09-23 13:58] LABS: MANUAL DIFF FLAG NO
[2022-09-23 14:01] LABS: Basophils Absolute Auto 0.1 X10*3/uL (0.0-0.2); Basophils Percent Auto 0.8 % (0-2); Eosinophils Absolute Auto 0.4 X10*3/uL (0.0-0.4); Eosinophils Percent Auto 5.7 % (0-4); Hematocrit 35.5 % (37.0-47.0); Hemoglobin 11.4 g/dl (12.0-16.0); Imm Gran Abs Auto 0.02 X10*3/uL (0.00-0.03); Imm Gran Pct Auto 0.3 % (0.0-0.4); Lymphocytes Absolute Auto 1.8 X10*3/uL (1.2-4.9); Lymphocytes Percent Auto 27.4 % (20-40); Mean Corpuscular HGB Conc 32.1 g/dl (31.0-35.0); Mean Corpuscular Hemoglobin 27.4 pg (27.0-33.0); Mean Corpuscular Volume 85.3 fL (80.0-98.0); Mean Platelet Volume 11.6 fL (9.4-12.3); Monocytes Absolute Auto 0.4 X10*3/uL (0.1-1.2); Monocytes Percent Auto 6.2 % (2-11); Neutrophils Percent Auto 59.6 % (45-73); Platelet Count 185 X10*3/uL (160-400); Red Blood Count 4.16 X10*6/uL (4.20-5.50); Red Cell Distribution Width 13.4 % (11.0-16.0); White Blood Count 6.6 X10*3/uL (4.8-10.8)
[2022-09-23 14:06] LABS: INTERNATIONAL NORM RATIO 0.9 (0.9-1.1); Prothrombin Time 10.7 SEC (10.0-13.1)
[2022-09-23 14:09] LABS: Partial Thromboplastin Time 30.4 SEC (26.0-36.4)
[2022-09-23 14:19] LABS: Alanine Aminotransferase 9 U/L (0-31); Albumin Level 4.1 g/dL (3.5-5.0); Alkaline Phosphatase 111 U/L (39-117); Anion Gap 9 (12-20); Aspartate Amino Transferase 16 U/L (5-31); Bilirubin Total 0.3 mg/dL (0.0-1.0); Blood Urea Nitrogen 16 mg/dL (9-16); Calcium 9.5 mg/dL (8.4-10.2); Carbon Dioxide 29 mmol/L (22-29); Chloride 108 mmol/L (96-108); Creatinine Clr Calc Pharmacy 57.4; Estimated Glomerular Filt Rate > 60; Glucose Random 97 mg/dL (60-115); Lipase 21 U/L (8-78); Potassium 4.1 mmol/L (3.3-5.1); Sodium 142 mmol/L (135-145)
[2022-09-23 14:24] LABS: Troponin-I High Sensitivity < 2.7 ng/L (<3.5-17.0)
[2022-09-23 15:02] VITALS: BP 173/65; PULSE 79; RESP 20; O2SAT 94
[2022-09-23 15:03] VITALS: PULSE 81
== END 2022-09-23 15:16 | disposition home or self-care (01) ==
PROVIDERS: Physician Assistant; Emergency Provider Emergency Medicine; PCP Internal Medicine
DX: R07.9 Chest pain, unspecified (principal); R03.0 Elevated blood-pressure reading, without diagnosis of hypertension; E78.00 Pure hypercholesterolemia, unspecified; Z79.899 Other long term (current) drug therapy; Z79.02 Long term (current) use of antithrombotics/antiplatelets
CPT/HCPCS: 36415; 71046; 80053; 83690; 84484; 85025; 85610; 85730; 93005; 99283; 99284

== ENCOUNTER → 2022-10-21 12:51 | Outpatient (BNVA) | payer OTHER, SELFPAY | PROVIDERS: PCP Internal Medicine; Visit Provider Nurse Practitioner Family | DX: Z51.81 Encounter for therapeutic drug level monitoring (principal); M25.561 Pain in right knee; M17.11 Unilateral primary osteoarthritis, right knee; M47.816 Spondylosis without myelopathy or radiculopathy, lumbar region; G89.4 Chronic pain syndrome; Z79.891 Long term (current) use of opiate analgesic | CPT/HCPCS: 99212 ==

== ENCOUNTER 2022-11-05 08:59 | Outpatient (AMB) | payer OTHER, SELFPAY ==
--- NOTE | 2022-11-05 09:05 | MHC.OFFVIS ---
Intake Vital Signs 11/05/22 09:06 Height 4 ft 11 in Weight 191 lb BMI 38.6 BP 184/78 H Blood Pressure Location Rt brachial Position Sitting Respiration 14 Pulse 74 Pulse Source Pulse Oximeter Pulse Oximetry (%) 96 Oxygen Delivery Method Room Air Intake Visit Reasons: Right femoral NB Allergies Penicillins [PENICILLINS] Allergy (Intermediate, Verified 11/05/22 09:08) RASH Medication List - Last Reconciled 11/05/22 by Heather An LPN acetaminophen 650 mg (2 x 325 mg) PO Q6H PRN 30 days [ADULT PULL-UPS (medium) As directed] albuterol sulfate 90 mcg/actuation 2 puffs PO Q6H PRN aspirin 81 mg PO DAILY atorvastatin 10 mg PO BEDTIME 90 days blood pressure kit-extra large As directed buprenorphine HCl (Belbuca) 300 mcg buccal Q12H 30 days cane Cane dupilumab (Dupixent) 300 mg subcut Q2W escitalopram oxalate 20 mg PO DAILY ezetimibe 10 mg PO DAILY fluticasone furoate-vilanterol 200-25 mcg/dose (Breo Ellipta) 1 inh inhalation DAILY 30 days naloxone 4 mg/actuation (Narcan) 4 mg intranasal Q3M PRN omeprazole 40 mg PO DAILY 90 days oxycodone 5 mg PO DAILY PRN 30 days quetiapine 50 mg PO BEDTIME tizanidine 4 mg PO Q8H PRN 30 days trazodone 200 mg PO BEDTIME PRN triamcinolone acetonide 0.1% grams topical HPI Right femoral NB HPI Details 67-year-old female presenting today for a right femoral nerve block. Patient presents for right femoral nerve block. Denies any recent cough, cold, infection, fever or other significant changes in medical history since last office visit. The patient states that her back pain initially improved post-RFA but was not completely resolved. The patient states that his pain has been worse since past month. The back pain is back to baseline. Past Procedures: 07/07/22: Left L3-L4-L5 MB RFA-80% pain relief 06/16/22: Right L4-L5 TFESI-80% ongoing pain relief 05/26/22: Right L3-L4-L5 MB RFA-0% pain relief status post 8 days ago, localized site pain. 04/21/22: Hip Intra-articular Injection, fluoroscopy guided, Right: %relief. 5/4/22: Bilateral L3-L4-L5 Diagnostic MBBs ? 80% pain relief for 8 hours 06/17/21: Bilateral Diagnostic L3-L4-L5 MBBs ? 75% relief for 1 day [facility] Medical History KAMILA positive Anxiety Arthralgia Asthma Benign essential hypertension CAD (coronary artery disease) Chronic interstitial cystitis Depression Dyspnea Esophageal stricture Foot pain, bilateral GERD (gastroesophageal reflux disease) Insomnia Irritable bowel syndrome (IBS) Left lumbar radiculopathy Lumbar spondylosis Obesity (BMI 30-39.9) BRIDGETTE (obstructive sleep apnea) Osteoarthritis Osteoarthritis of right knee Pure hypercholesterolemia Urticaria Vitamin D deficiency Surgical History History of cardiac catheterization History of colonoscopy History of nephrolithotomy with removal of calculi History of surgery History of tooth extraction History of total right knee replacement (09/22/21) Hx of cystoscopy Status post balloon dilatation of esophageal stricture (~2005) Family History Father Hypertension Mother Hypertension Diabetes CVD (cardiovascular disease) Daughter No problems noted. Family/Other FH: mental illness Other Mental health problem Substance abuse Social History Housing: Apartment Are you a primary healthcare administration internship to a significant other at home: No Do you presently have visiting nurse or other home services: No Alcohol intake: never Patient Tobacco Use Status: Never used Tobacco e-Cigarette/Vaping Use: Never Used Second Hand Smoke Exposure: No service: No Current occupational status: disabled Cognitive needs: No Hearing needs: No Vision needs: Yes Review of Systems Const All systems reviewed & are unremarkable except as noted in HPI and below Physical Exam Vital Signs: Last Vital Signs Pulse 74 11/05/22 09:06 Resp 14 11/05/22 09:06 BP 184/78 H 11/05/22 09:06 Pulse Ox 96 11/05/22 09:06 Oxygen Delivery Method Room Air 11/05/22 09:06 BMI result Body Mass Index 38.6 General: Appears afebrile. Alert and oriented. Mood and affect appropriate. Follows and participates in conversation appropriately. Respiratory effort is unlabored. Able to transition from sit to stand unassisted. Ambulates with bilaterally normal heel strike and toe off. Office Procedures Nerve Block Details: Right femoral nerve block, ultrasound-guided After obtaining written consent, pre-procedure blood pressure and heart rate were stable and recorded in the nursing record. The patient was placed supine on the table. The medial thigh area overlying the adductor canal was widely prepped with chloraprep, allowed to dry and sterilely draped. Using ultrasound, the appropriate landmarks including the femoral artery, vein and nerve were identified. The skin overlying the target was anesthetized with 0.5% lidocaine. A 21 gauge 80 mm echostim needle was advanced under sonographic guidance to the femoral nerve. Aspiration was negative for heme. 8 cc of lidocaine 1%? was injected around the femoral nerve. The needle was removed, skin cleansed and a sterile bandage was applied. The patient tolerated the procedure well and no complications were encountered. Following the procedure the patient's vital signs and knee strength were stable. The patient was discharged home in good condition with post-procedural instructions. Time Out: Immediately prior to the procedure, the following was verbally confirmed that there is a signed consent form and that the correct patient, planned procedure, site and side are consistent with documentation and that necessary equipment and/or blood products are available prior to the start of the case. Complications: none EBL: <1 cc [id number] - Femoral (adductor injection) Procedure code (CPT) selection complete Results Reviewed Results Reviewed: 09/23/22: XR CHEST FINDINGS: No focal consolidation. No pneumothorax. Trachea is midline. Cardiomediastinal silhouette is not enlarged. No large pleural effusion. Slight dextrocurvature of the mid thoracic spine with multilevel degenerative changes. Soft tissues are unremarkable. IMPRESSION: No acute cardiopulmonary process. 08/12/22: XR knee RT 2V, XR knee standing BI * Status post right total knee arthroplasty without evidence of hardware complication. * Mild to moderate degenerative changes of the left knee joint. * Small suprapatellar effusion. Assessment & Plan Assessment & Plan (1) Right knee pain: Code(s): M25.561 - Pain in right knee Plan 1. Patient is status post diagnostic right femoral nerve block. Patient tolerated procedure well and was discharged home in stable condition with discharge instructions. All questions were answered. 2. We will follow-up in two weeks via telephone or in clinic to assess response to therapy. A follow-up appointment was made during today's visit. 3. If back pain the continues to persist, will consider doing facet injections at L3-4, L4-5 and L5-S1 bilaterally. Scribed for Dr. Pacheco by Jorden Vasquez, health care / medical job titles, on 11/05/2022. I, Dr. Pacheco, have personally reviewed and agree with the information entered by the scribe. Coding Level of Care Code Procedure Only Diagnoses Right knee pain M25.561 CPT Codes Nerve Block - Nerve Block 7: 96977 - Femoral (adductor injection) ([id number])
[2022-11-05 09:06] VITALS: BP 184/78; PULSE 74; RESP 14; O2SAT 96; BMI 38.6
== END 2022-11-05 09:42 | disposition home or self-care (01) ==
PROVIDERS: PCP Internal Medicine; Visit Provider Internal Medicine
DX: M25.561 Pain in right knee (principal)
CPT/HCPCS: 64447

== ENCOUNTER → 2022-11-05 08:59 | Outpatient (BNVA) | payer OTHER, SELFPAY | PROVIDERS: PCP Internal Medicine; Visit Provider Internal Medicine | DX: M25.561 Pain in right knee (principal) | CPT/HCPCS: 64447 ==

== ENCOUNTER 2022-11-18 10:20 | Outpatient (AMB) | payer OTHER, SELFPAY ==
--- NOTE | 2022-11-18 10:26 | MHC.OFFVIS ---
Intake Vital Signs 11/18/22 10:38 Height 4 ft 11 in Weight 191 lb BMI 38.6 BP 99/56 L Blood Pressure Location Rt brachial Position Sitting Pulse 69 Pulse Source Pulse Oximeter Pulse Oximetry (%) 96 Oxygen Delivery Method Room Air Intake Visit Reasons: Pill count Intake Note: Celia comes in today for a pill count to oxycodone and a film count to belbuca, patient should have 19 tablets of oxycodone and presents with 20 tablets which she last took today 11/17/22 at 10am. Belbuca should have 14 films and presents with 25 which she last took today 11/18/22 at 6am. Pain today 11/25. 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 For Belbuca, #14 films were expected, and #25 films were presented. For oxycodone, #19 pills were expected, and #20 pills were presented. Patient reports she has not started using Belbuca films right away when filled her script on 10/26/22. This demonstrates a responsible attitude in regards to the medication regimen. Patient reports inadequate analgesia due to ongoing right knee pain. She recently had right femoral nerve block and fell at home after the block. Reports no pain immediately the injection and states her leg felt numb, no pain for some time until she fell. Her family notified our office about the fall and Urgent care visit where xrays were taken and patient was told it was negative. These reports are not available today. Patient reports she has follow up with Orthopedics on 11/29/22. Denies any fever, weight changes, abdominal or groin pain, constipation, nausea, sedation, dizziness, urinary retention, bladder or bowel incontinence or saddle anesthesia. Patient presents with low reading BP today. Denies any lightheadedness, dizziness, shortness of breaths, or chest pain. Reports taking her Belbuca along with tizanidine 4 mg Q8H prn (prescribed by PCP) at 0600 today. Patient reports tizanidine has been helpful but does notice it causing her tiredness and dizziness at times. Past Procedures: 11/05/22: Right femoral nerve block- no right knee pain for 5 hours 07/07/22: Left L3-L4-L5 MB RFA-80% ongoing pain relief 06/16/22: Right L4-L5 TFESI-80% ongoing pain relief 05/26/22: Right L3-L4-L5 MB RFA- 80% pain relief 04/21/22: Right intra-articular hip steroid injection -ongoing 50% pain relief . 08/19/21: Bilateral L3-L4-L5 Diagnostic MBBs ? 80% pain relief for 8 hours 06/17/21: Bilateral Diagnostic L3-L4-L5 MBBs ? 75% relief for 1 day [facility] Medical History KAMILA positive Anxiety Arthralgia Asthma Benign essential hypertension CAD (coronary artery disease) Chronic interstitial cystitis Depression Dyspnea Esophageal stricture Foot pain, bilateral GERD (gastroesophageal reflux disease) Insomnia Irritable bowel syndrome (IBS) Left lumbar radiculopathy Lumbar spondylosis Obesity (BMI 30-39.9) BRIDGETTE (obstructive sleep apnea) Osteoarthritis Osteoarthritis of right knee Pure hypercholesterolemia Urticaria Vitamin D deficiency Surgical History History of cardiac catheterization History of colonoscopy History of nephrolithotomy with removal of calculi History of surgery History of tooth extraction History of total right knee replacement (09/22/21) Hx of cystoscopy Status post balloon dilatation of esophageal stricture (~2005) Family History Father Hypertension Mother Hypertension Diabetes CVD (cardiovascular disease) Daughter No problems noted. Family/Other FH: mental illness Other Mental health problem Substance abuse Social History Housing: Apartment Are you a primary child care development specialist to a significant other at home: No Do you presently have visiting nurse or other home services: No Alcohol intake: never Patient Tobacco Use Status: Never used Tobacco e-Cigarette/Vaping Use: Never Used Second Hand Smoke Exposure: No service: No Current occupational status: disabled Cognitive needs: No Hearing needs: No Vision needs: Yes Review of Systems Const All systems reviewed & are unremarkable except as noted in HPI and below Physical Exam Vital Signs: Last Vital Signs Pulse 69 11/18/22 10:38 BP 99/56 L 11/18/22 10:38 Pulse Ox 96 11/18/22 10:38 Oxygen Delivery Method Room Air 11/18/22 10:38 BMI result Body Mass Index 38.6 General: Appears afebrile. Alert and oriented. Mood and affect appropriate. Follows and participates in conversation appropriately. Respiratory effort is unlabored. No cough. Able to transition from sit to stand unassisted. Ambulates with bilaterally normal heel strike and toe off. Extrem Right lower extremity: knee (Well healed scar. Limited ROM due to pain. Global knee tenderness.) Details: swelling (mild at lateral aspect) and crepitus; no ecchymosis and no unusual warmth Psych Appearance: grossly normal and well kempt Mental Status: mental status grossly normal Speech and movement: Normal speech and movement present Affect: normal affect Attitude: cooperative Thought process: Normal thought process present Thought content: Normal thought content present, suicidality (none), no hallucinations and No Depressive thoughts present Insight: Good insight present (Psych) Judgement: Good judgement present (Psych) Assessment & Plan Assessment & Plan (1) Chronic pain syndrome: Code(s): G89.4 - Chronic pain syndrome (2) Right knee pain: Code(s): M25.561 - Pain in right knee (3) Osteoarthritis of right knee: Code(s): M17.11 - Unilateral primary osteoarthritis, right knee (4) Opioid contract exists: Code(s): Z79.891 - [facility]CI (current) use of opiate analgesic (5) Lumbar spondylosis: Code(s): M47.816 - Spondylosis without myelopathy or radiculopathy, lumbar region (6) Spondylosis of lumbosacral spine with radiculopathy: Code(s): M47.27 - Other spondylosis with radiculopathy, lumbosacral region Plan Patient has shown accountability for her medication regimen and the pill/patch count was accurate. There is no evidence of misuse, abuse or diversion at this time. Extreme Reach reviewed. Will send script for oxycodone-acetaminophen 5-325 mg daily prn 12/07/22 and switch Belbuca at 300 mcg BID on 11/30/22. Discussed with patient tizanidine side effects, including hypotension. Advised patient to take tizanidine BID prn, with decreased dose to 2 mg and hold it if BP less than 120/80.. Monitor BP and follow up with PCP and cardiology as planned. All questions and concerns have been answered and patient agreed with the plan. Follow up for pill count in 4 weeks and sooner if needed. Medications: Changed From tizanidine Start at bedtime as medication can be sedating 4 mg PO Q8H 30 days PRN 90 tabs 0RF muscle spasticity M47.27 - Other spondylosis with radiculopathy, lumbosacral region, M62.838 - Other muscle spasm To tizanidine 2 mg PO BID PRN 60 tabs 0RF muscle spasticity 30 days M47.27 - Other spondylosis with radiculopathy, lumbosacral region, M62.838 - Other muscle spasm Coding Level of Care Code Est Pt Level 4 (39673) Diagnoses Chronic pain syndrome G89.4 Right knee pain M25.561 Osteoarthritis of right knee M17.11 Opioid contract exists Z79.891 Lumbar spondylosis M47.816 Spondylosis of lumbosacral spine with radiculopathy M47.27
[2022-11-18 10:38] VITALS: BP 99/56; PULSE 69; O2SAT 96; BMI 38.6
== END 2022-11-18 10:46 | disposition home or self-care (01) ==
PROVIDERS: PCP Internal Medicine; Visit Provider Nurse Practitioner Family
DX: G89.4 Chronic pain syndrome (principal); M25.561 Pain in right knee; M17.11 Unilateral primary osteoarthritis, right knee; Z79.891 Long term (current) use of opiate analgesic; M47.816 Spondylosis without myelopathy or radiculopathy, lumbar region; M47.27 Other spondylosis with radiculopathy, lumbosacral region
CPT/HCPCS: 99214

== ENCOUNTER → 2022-11-18 10:20 | Outpatient (BNVA) | payer OTHER, SELFPAY | PROVIDERS: PCP Internal Medicine; Visit Provider Nurse Practitioner Family | DX: Z51.81 Encounter for therapeutic drug level monitoring (principal); F11.20 Opioid dependence, uncomplicated; M25.561 Pain in right knee; M17.11 Unilateral primary osteoarthritis, right knee; M47.816 Spondylosis without myelopathy or radiculopathy, lumbar region; M47.27 Other spondylosis with radiculopathy, lumbosacral region; G89.4 Chronic pain syndrome; Z79.891 Long term (current) use of opiate analgesic | CPT/HCPCS: 99212 ==

== ENCOUNTER 2022-12-07 10:58 | Outpatient (REF) | payer OTHER, SELFPAY ==
--- NOTE | ~2022-12-07 | MM_ITS ---
EXAMINATION: BONE DENSITOMETRY CLINICAL INDICATION: Asymptomatic menopausal state. COMPARISON: Baseline BD dated 07/15/2020. TECHNIQUE: Using a Pearescope DXA System (software version: 13.1) manufactured by [employer], dual-energy x-ray absorptiometry was performed of the lumbar spine and left hip. The images are of good technical quality. Summary results are attached. FINDINGS: LEFT FEMUR, NECK: Current: BMD 0.769 g/cm2, Z-score -0.7, T-score -1.9, osteopenia. Baseline: BMD 0.826 g/cm2. LEFT FEMUR, TOTAL: Current: BMD 0.982 g/cm2, Z-score 0.8, T-score -0.2, normal, 4.3% decrease from baseline (<5% change is not significant). Baseline: BMD 1.026 g/cm2. AP SPINE L1-L4: Current: BMD 1.193 g/cm2, Z-score 1.2, T-score 0.1, normal, 4.3% decrease from baseline (<5% change is not significant). Baseline: BMD 1.247 g/cm2. IDENTIFIED RISK FACTORS: Early menopause, secondary osteoporosis, family history (parental hip fracture), hysterectomy, bilateral oophorectomy, recurrent falls, glucocorticoids (chronic). HISTORY OF FRACTURE: None listed. MEDICATIONS: Calcium supplements or multivitamin, vitamin D. MM/XR DEXA axial skeleton IMPRESSION: 1. DIAGNOSIS: Osteopenia based on the lowest T-score value of -1.9 in the femoral neck applying World Health Organization criteria. 2. 10-YEAR FRACTURE RISK PREDICTION, FRAX: Major osteoporotic fracture (clinical spine, forearm, hip or shoulder) 15.7%. Hip fracture 3.1%. 3. Treatment Recommendations: NOF guidelines recommend consideration for treatment in postmenopausal women and men age 50 and older presenting with the following: -A hip or vertebral (clinical or morphometric) fracture. -T-score less than or equal to -2.5 at the femoral neck or spine after appropriate evaluation to exclude secondary causes. -Low bone mass at the hip or spine and a 10-year fracture probability by FRAX of greater than or equal to 3% for hip fracture or greater than or equal to 20% for major osteoporotic fracture based on the [place] adapted WHO algorithm. 4. Other Recommendations: All treatment decisions require clinical judgment and consideration of individual patient factors, including patient preferences, comorbidities, previous drug use, risk factors not captured in the FRAX model (e.g. frailty, falls, vitamin D deficiency, increased bone turnover, interval significant decline in bone density) and possible under or overestimation of fracture risk by FRAX. Additional medical evaluation for secondary cause of low bone mineral density may be appropriate. FUTURE SCAN RECOMMENDATION: People with diagnosed cases of osteoporosis or at high risk for fracture should have regular bone mineral density tests. For patients eligible for Medicare, routine testing is allowed once every 2 years. The testing frequency can be increased to one year for patients who have rapidly progressing disease, those who are receiving or discontinuing medical therapy to restore bone mass, or have additional risk factors.
== END 2022-12-07 10:59 | disposition home or self-care (01) ==
LOC: HO.MAMMO 10:58
PROVIDERS: PCP Internal Medicine; Visit Provider Nurse Practitioner Family
DX: Z13.820 Encounter for screening for osteoporosis (principal); Z78.0 Asymptomatic menopausal state
CPT/HCPCS: 77080

== ENCOUNTER → 2022-12-07 11:00 | Outpatient (BNV) | payer OTHER, SELFPAY | PROVIDERS: PCP Internal Medicine; Visit Provider Radiology Diagnostic Radiology | DX: Z78.0 Asymptomatic menopausal state (principal) | CPT/HCPCS: 77080 ==

== ENCOUNTER 2022-12-10 08:46 | Outpatient (REF) | payer OTHER, SELFPAY ==
--- NOTE | ~2022-12-10 | XR_ITS ---
EXAMINATION: XR BOTH KNEES AP STANDING XR KNEE, RIGHT CLINICAL INFORMATION: Pain. COMPARISON: Right knee radiographs dated 08/12/2022. TECHNIQUE: Standing AP view of both knees and lateral and sunrise views of the right knee. FINDINGS: RIGHT KNEE: Total right knee arthroplasty. No hardware fracture. No perihardware lucency. No concerning lytic or blastic osseous lesion. No significant joint effusion. No abnormal soft tissue calcification. LEFT KNEE: Mild medial compartment joint space narrowing. Tricompartmental marginal osteophytes. No osseous erosion. No abnormal soft tissue calcification. XR/XR knee RT 2V IMPRESSION: RIGHT KNEE: Total right knee arthroplasty without evidence of complication. LEFT KNEE: Tricompartmental osteoarthritis, most prominent within the medial compartment, unchanged.
--- NOTE | ~2022-12-10 | XR_ITS ---
EXAMINATION: XR BOTH KNEES AP STANDING XR KNEE, RIGHT CLINICAL INFORMATION: Pain. COMPARISON: Right knee radiographs dated 08/12/2022. TECHNIQUE: Standing AP view of both knees and lateral and sunrise views of the right knee. FINDINGS: RIGHT KNEE: Total right knee arthroplasty. No hardware fracture. No perihardware lucency. No concerning lytic or blastic osseous lesion. No significant joint effusion. No abnormal soft tissue calcification. LEFT KNEE: Mild medial compartment joint space narrowing. Tricompartmental marginal osteophytes. No osseous erosion. No abnormal soft tissue calcification. XR/XR knee standing BI IMPRESSION: RIGHT KNEE: Total right knee arthroplasty without evidence of complication. LEFT KNEE: Tricompartmental osteoarthritis, most prominent within the medial compartment, unchanged.
== END 2022-12-10 08:47 | disposition home or self-care (01) ==
LOC: HO.HOSX 08:46
PROVIDERS: Visit Provider Orthopaedic Surgery
DX: Z96.651 Presence of right artificial knee joint (principal); M25.561 Pain in right knee; Z91.81 History of falling; Z79.891 Long term (current) use of opiate analgesic
CPT/HCPCS: 73560; 73565; 99212

== ENCOUNTER 2022-12-10 10:49 | Outpatient (AMB) | payer OTHER, SELFPAY ==
--- NOTE | 2022-12-10 10:59 | MHC.OFFVIS ---
Intake Intake Visit Reasons: PO-s/p RT TKA 09/22/21 NE Intake Note: Celia is a 67 year old female who presents today for a follow up of her right knee. she is?s/p Right TKA 09/22/21. Patient has been seen with pain mgmt and was placed on a contract. She reports that she took a fall about 1 month ago that produced increased swelling but has since improved. Allergies Penicillins [PENICILLINS] Allergy (Intermediate, Verified 11/18/22 10:39) RASH HPI PO-s/p RT TKA 09/22/21 NE HPI Details Celia is a 67 year old woman who presents with increased right knee pain, S/P fall on 11/06/22. She has a hx of right TKA, DOS: 09/22/21 and has been following with Pain Management for multiple pain issues, including bilateral knee pain. She had a right femoral nerve block on 11/05/22, and had good relief of her pain until her fall. She complains of pain primarily with using stairs after her fall. She says her swelling following her fall has improved and overall her pain is better. [facility] Medical History KAMILA positive Anxiety Arthralgia Asthma Benign essential hypertension CAD (coronary artery disease) Chronic interstitial cystitis Depression Dyspnea Esophageal stricture Foot pain, bilateral GERD (gastroesophageal reflux disease) Insomnia Irritable bowel syndrome (IBS) Left lumbar radiculopathy Lumbar spondylosis Obesity (BMI 30-39.9) BRIDGETTE (obstructive sleep apnea) Osteoarthritis Osteoarthritis of right knee Pure hypercholesterolemia Urticaria Vitamin D deficiency Surgical History History of cardiac catheterization History of colonoscopy History of nephrolithotomy with removal of calculi History of surgery History of tooth extraction History of total right knee replacement (09/22/21) Hx of cystoscopy Status post balloon dilatation of esophageal stricture (~2005) Family History Father Hypertension Mother Hypertension Diabetes CVD (cardiovascular disease) Daughter No problems noted. Family/Other FH: mental illness Other Mental health problem Substance abuse Social History Housing: Apartment Are you a primary skin care consultant to a significant other at home: No Do you presently have visiting nurse or other home services: No Alcohol intake: never Patient Tobacco Use Status: Never used Tobacco e-Cigarette/Vaping Use: Never Used Second Hand Smoke Exposure: No service: No Current occupational status: disabled Cognitive needs: No Hearing needs: No Vision needs: Yes Review of Systems Const All systems reviewed & are unremarkable except as noted in HPI and below Physical Exam Const General: no acute distress, alert and awake Orientation/consciousness: patient oriented x3 HEENT Head: Yes normocephalic and Yes atraumatic Eyes EOM: EOMs intact bilaterally Resp Effort & Inspection: normal respiratory effort and able to speak in complete sentences Cardio Jugular venous distension: no JVD Skin General skin exam: turgor normal Rashes: no rashes Neuro General: patient oriented x3 Extrem Other: Right Knee: Well-healed incision No pain Walking comfortably Psych Appearance: grossly normal Affect: normal affect Attitude: cooperative Results Reviewed Results Reviewed: I personally reviewed relevant radiographs. Right total knee arthroplasty in expected post operative position with no hardware complications or evidence of loosening Assessment & Plan Assessment & Plan (1) Right knee pain: Code(s): M25.561 - Pain in right knee Plan: This is a 67 year old woman with right knee pain, S/P fall, DOI: 11/06/22. She says her pain and swelling have been improving, but she continues to have pain using stairs. She is walking comfortably at this time. I recommend she continue to remain active. She can follow up prn. (2) Long-term current use of opiate analgesic: Code(s): Z79.891 - hoop maker machine (current) use of opiate analgesic Plan: [place] (3) Status post total knee replacement, right: Code(s): Z96.651 - Presence of right artificial knee joint Plan: 09/22/21 Plan Scribed for Je Deras MD by Brock Arreola, medical office assistant, on 12/10/22 at 11:15 AM, EST. Orders: Orders XR knee RT 2V 12/10/22 M25.569 - Pain in unspecified knee XR knee standing BI 12/10/22 M25.569 - Pain in unspecified knee Coding Level of Care Code Est Pt Level 3 (79475) Diagnoses Right knee pain M25.561 Long-term current use of opiate analgesic Z79.891 Status post total knee replacement, right Z96.651
== END 2022-12-10 11:20 | disposition home or self-care (01) ==
PROVIDERS: PCP Internal Medicine; Visit Provider Orthopaedic Surgery
DX: M25.561 Pain in right knee (principal); Z96.651 Presence of right artificial knee joint
CPT/HCPCS: 99213

== ENCOUNTER 2022-12-16 10:53 | Outpatient (AMB) | payer OTHER, SELFPAY ==
--- NOTE | 2022-12-16 10:57 | A.OFFVIS_ITS ---
Intake Vital Signs 12/16/22 11:07 Height 4 ft 11 in Weight 190 lb 8 oz BMI 38.5 BP 175/70 H Blood Pressure Location Rt brachial Position Sitting Pulse 68 Pulse Source Pulse Oximeter Pulse Oximetry (%) 96 Oxygen Delivery Method Room Air Intake Visit Reasons: Pill count Intake Note: Celia comes in today for a pill count to oxycodone and a film count to belbuca, patient should have 21 tablets and presents with 24 tablets which she last took Tuesday12/14/22, belbuca should have 20 films and presents with 24 films which she last took today 12/16/22 at 6am. Pain today 09/25. Franchise Consultant Required: No Accompanied by: Self / Same As Patient Allergies Penicillins [PENICILLINS] Allergy (Intermediate, Verified 12/16/22 11:07) RASH HPI HPI Comments History of Present Illness Details Patient presents today for a pill and film count. For Belbuca, #20 films were expected, and #24 films were presented. For oxycodone, #21 pills were expected, and #24 pills were presented. This demonstrates a responsible attitude in regards to the medication regimen. Patient reports inadequate analgesia due to increase in lower back pain with occasional weakness and radicular symptoms in both legs, worse on the right. Patient is not interested in interventional treatments for back pain at this time as she is preparing for move on 12/31/22. Denies any fever, weight changes, shortness of breaths, abdominal or groin pain, constipation, nausea, sedation, dizziness, foot drop, urinary retention, bladder or bowel incontinence or saddle anesthesia. Past Procedures: 11/05/22: Right femoral nerve block- no right knee pain for 5 hours 07/07/22: Left L3-L4-L5 MB RFA-80% ongoing pain relief 06/16/22: Right L4-L5 TFESI-80% ongoing pain relief 05/26/22: Right L3-L4-L5 MB RFA- 80% pain relief 04/21/22: Right intra-articular hip steroid injection -ongoing 50% pain relief . 08/19/21: Bilateral L3-L4-L5 Diagnostic MBBs ? 80% pain relief for 8 hours 06/17/21: Bilateral Diagnostic L3-L4-L5 MBBs ? 75% relief for 1 day FOR[facility]LY [facility], [facility] Medical History KAMILA positive Anxiety Arthralgia Asthma Benign essential hypertension CAD (coronary artery disease) Chronic interstitial cystitis Depression Dyspnea Esophageal stricture Foot pain, bilateral GERD (gastroesophageal reflux disease) Insomnia Irritable bowel syndrome (IBS) Left lumbar radiculopathy Lumbar spondylosis Obesity (BMI 30-39.9) BRIDGETTE (obstructive sleep apnea) Osteoarthritis Osteoarthritis of right knee Pure hypercholesterolemia Urticaria Vitamin D deficiency Surgical History History of cardiac catheterization History of colonoscopy History of nephrolithotomy with removal of calculi History of surgery History of tooth extraction History of total right knee replacement (09/22/21) Hx of cystoscopy Status post balloon dilatation of esophageal stricture (~2005) Family History Father Hypertension Mother Hypertension Diabetes CVD (cardiovascular disease) Daughter No problems noted. Family/Other FH: mental illness Other Mental health problem Substance abuse Social History Housing: Apartment Are you a primary patient care technician instructor to a significant other at home: No Do you presently have visiting nurse or other home services: No Alcohol intake: never Patient Tobacco Use Status: Never used Tobacco e-Cigarette/Vaping Use: Never Used Second Hand Smoke Exposure: No service: No Current occupational status: disabled Cognitive needs: No Hearing needs: No Vision needs: Yes Review of Systems Const All systems reviewed & are unremarkable except as noted in HPI and below Physical Exam Vital Signs: Last Vital Signs Pulse 68 12/16/22 11:07 BP 175/70 H 12/16/22 11:07 Pulse Ox 96 12/16/22 11:07 Oxygen Delivery Method Room Air 12/16/22 11:07 BMI result Body Mass Index 38.5 General: Appears afebrile. Alert and oriented. Mood and affect appropriate. Follows and participates in conversation appropriately. Respiratory effort is unlabored. No cough. Able to transition from sit to stand unassisted. Back/Spine/Pelvis Cervical Spine: cervical ROM normal and No Cervical spine tenderness Thoracic/Lumbar Spine: thoracic and lumbar spine normal to inspection, Thoracic/lumbar spine scar(s), Lasegue's sign positive bilateral and localized, pain with thoraco-lumbar ROM, paraspinal muscle tenderness, thoraco-lumbar ROM limited, No thoracic spinal tenderness, lumbar spinal tenderness and straight le g raise positive right at 40 degrees Pelvis: buttock tenderness bilaterally Sacroiliac joints: bilaterally tender to palpation Psych Appearance: grossly normal and well kempt Mental Status: mental status grossly normal Speech and movement: Normal speech and movement present Affect: normal affect Attitude: cooperative Thought process: Normal thought process present Thought content: Normal thought content present, suicidality (none), no hallucinations and No Depressive thoughts present Insight: Good insight present (Psych) Judgement: Good judgement present (Psych) Results Reviewed Results Reviewed: MR LUMBAR SPINE WITHOUT CONTRAST 03/05/22 FINDINGS: VERTEBRAL BODIES AND PARASPINAL STRUCTURES: There are mild grade 1 anterolistheses of L4 on L5 and L5 on S1. There is multilevel narrowing of intervertebral disc height with loss of signal throughout the lumbar spine. There are multilevel anterior and right-sided marginal osteophytes. Vertebral body heights are maintained and no fractures are demonstrated. There is an area of increased T1 and T2 signal in the body of L2 consistent with a hemangioma. Overall, marrow signal is homogenous. There are small bilateral renal cysts. The visualized pelvic structures are unremarkable. CONUS MEDULLARIS AND CAUDA EQUINA: Normal, terminating at the level of L1. The lower thoracic spinal cord appears normal. The cauda equina nerve roots and filum terminale appear normal. SPINAL LEVELS: T12-L1: There is mild bilateral facet arthropathy. Posterior disc contour is normal. There is no central stenosis or foraminal narrowing. L1-L2: There is mild bilateral facet arthropathy. Posterior disc contour is normal. There is no central stenosis or foraminal narrowing. L2-L3: There is mild bilateral facet arthropathy. There are small right-sided disc protrusion with minimal distortion of the ventral thecal sac but there is no central stenosis. The neural foramina are patent bilaterally. L3-L4: There is moderate bilateral facet arthropathy. There is a broad-based posterior disc protrusion with a small extruded component extending behind the body of L3 centrally and toward the right. There is minimal distortion of the ventral thecal sac. There is no central stenosis. There are foraminal disc protrusions with mild impingement on the exiting right L3 nerve root. L4-L5: There is markedly severe left and severe right facet arthropathy. There is a broad-based posterior disc protrusion with an annular fissure which flattens the ventral thecal sac and narrows the subarticular recesses. There are bilateral foraminal disc protrusions with impingement on the exiting L4 nerve roots. There is no significant central stenosis. L5-S1: There is markedly severe bilateral facet arthropathy. There is a shallow posterior disc protrusion with mild distortion of the ventral thecal sac but there is no central stenosis. There are left greater than right foraminal disc protrusions with impingement on the exiting left L5 nerve root. IMPRESSION: 1. At L4-L5 there is markedly severe left and severe right facet arthropathy. There is a posterior disc protrusion and there is narrowing of the subarticular recesses. There are bilateral foraminal disc protrusions with impingement on the exiting L4 nerve roots. There is no significant central stenosis. 2. At L5-S1 there is markedly severe facet arthropathy. There is a shallow posterior disc protrusion without central stenosis. There are left greater than right foraminal disc protrusions with impingement on the exiting left L5 nerve root. 3. At L3-L4 there is moderate facet arthropathy. There is a small posterior disc protrusion/extrusion without central stenosis. There are foraminal disc protrusions with impingement on the exiting right L3 nerve root. XR HIP, RIGHT 02/17/22 FINDINGS: Bone alignment is normal. No fracture or dislocation. Moderate right hip arthritis with joint space narrowing and osteophyte formation. Normal soft tissues. IMPRESSION: Moderate right hip arthritis. XR LUMBOSACRAL SPINE 02/01/22 FINDINGS: Lumbar spine alignment is normal. There is mild loss of disc space and endplate remodeling at multiple levels which is most apparent at T12-L1, overall similar to the prior study. There is osteophyte formation at multiple levels including relatively bulky osteophytes along the right side of the upper lumbar spine and there is multilevel facet arthropathy. There is atherosclerotic calcification of the abdominal aorta best visualized on lateral radiographs. Soft tissues are unremarkable. IMPRESSION: Mild multilevel degenerative changes of the lumbar spine overall similar to the prior study. Assessment & Plan Assessment & Plan (1) Chronic pain syndrome: Code(s): G89.4 - Chronic pain syndrome (2) Opioid contract exists: Code(s): Z79.891 - senior care (current) use of opiate analgesic (3) Lumbar spondylosis: Code(s): M47.816 - Spondylosis without myelopathy or radiculopathy, lumbar region (4) Lumbar radiculopathy: Code(s): M54.16 - Radiculopathy, lumbar region (5) Bilateral primary osteoarthritis of knee: Code(s): M17.0 - Bilateral primary osteoarthritis of knee Plan Patient has shown accountability for her medication regimen and the pill/patch count was accurate. There is no evidence of misuse, abuse or diversion at this time. Per Vices reviewed. Will send script for oxycodone-acetaminophen 5-325 mg daily prn 01/06/23 and will increase Belbuca at 450 mcg BID on 12/26/22 due to increase in back pain and chronic knee pain. Patient will reach out to our office if her back symptoms will worsen to discuss interventional treatments. Advised to avoid heavy lifting or pulling as she prepares for her move mid December. All questions and concerns have been answered and patient agreed with the plan. Follow up for pill count in 4 weeks and sooner if needed. Medications: Changed From buprenorphine HCl (Belbuca) 300 mcg buccal Q12H 30 days 60 ea 0RF pain G89.4 - Chronic pain syndrome, M17.0 - Bilateral primary osteoarthritis of knee, M54.16 - Radiculopathy, lumbar region To buprenorphine HCl 450 mcg buccal Q12H 60 ea 0RF pain 30 days G89.4 - Chronic pain syndrome, M17.0 - Bilateral primary osteoarthritis of knee, M54.16 - Radiculopathy, lumbar region Refilled oxycodone Partial Fill upon patient request. 5 mg PO DAILY PRN 30 tabs 0RF pain, severe 30 days G89.4 - Chronic pain syndrome, M47.27 - Other spondylosis with radiculopathy, lumbosacral region Coding Level of Care Code Est Pt Level 4 (15754) Diagnoses Chronic pain syndrome G89.4 Opioid contract exists Z79.891 Lumbar spondylosis M47.816 Lumbar radiculopathy M54.16 Bilateral primary osteoarthritis of knee M17.0
[2022-12-16 11:07] VITALS: BP 175/70; PULSE 68; O2SAT 96; BMI 38.5
== END 2022-12-16 11:19 | disposition home or self-care (01) ==
PROVIDERS: PCP Internal Medicine; Visit Provider Nurse Practitioner Family
DX: G89.4 Chronic pain syndrome (principal); Z79.891 Long term (current) use of opiate analgesic; M47.816 Spondylosis without myelopathy or radiculopathy, lumbar region; M54.16 Radiculopathy, lumbar region; M17.0 Bilateral primary osteoarthritis of knee
CPT/HCPCS: 99214

== ENCOUNTER → 2022-12-16 10:53 | Outpatient (BNVA) | payer OTHER, SELFPAY | PROVIDERS: PCP Internal Medicine; Visit Provider Nurse Practitioner Family | DX: G89.4 Chronic pain syndrome (principal); M47.26 Other spondylosis with radiculopathy, lumbar region; M17.0 Bilateral primary osteoarthritis of knee; Z79.891 Long term (current) use of opiate analgesic | CPT/HCPCS: 99212 ==

== ENCOUNTER 2022-12-17 12:22 | Outpatient (AMB) | payer OTHER, MEDICAID, SELFPAY ==
[2022-12-17 12:31] VITALS: BP 114/62; PULSE 90; O2SAT 94; BMI 38.4
--- NOTE | 2022-12-17 12:31 | MHC.PC.OV ---
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 Required: No Accompanied by: Self / Same As Patient Allergies Penicillins [PENICILLINS] Allergy (Intermediate, Verified 12/17/22 12:53) RASH Medication List - Last Reconciled 12/17/22 by Curt Falk MD acetaminophen 650 mg (2 x 325 mg) PO Q6H PRN 30 days [ADULT PULL-UPS As directed] albuterol sulfate 90 mcg/actuation 2 puffs PO Q6H PRN aspirin 81 mg PO DAILY atorvastatin 10 mg PO BEDTIME 90 days blood pressure kit-extra large As directed buprenorphine HCl 450 mcg buccal Q12H 30 days cane Cane dupilumab (Dupixent) 300 mg subcut Q2W escitalopram oxalate 20 mg PO DAILY ezetimibe 10 mg PO DAILY fluticasone furoate-vilanterol 200-25 mcg/dose (Breo Ellipta) 1 inh inhalation DAILY 30 days ibuprofen 600 mg PO Q8H PRN naloxone 4 mg/actuation (Narcan) 4 mg intranasal Q3M PRN omeprazole 40 mg PO DAILY 90 days oxycodone 5 mg PO DAILY PRN 30 days quetiapine 50 mg PO BEDTIME tizanidine 2 mg PO BID PRN 30 days trazodone 200 mg PO BEDTIME PRN triamcinolone acetonide 0.1% grams topical Tobacco use date assessed: 12/17/22 Fall risk assessment: 2 + Falls in past year Last assessed Fall Risk: 12/17/22 Dental Screening Dental Screen Date: 12/17/22 Did you have a dental visit in the last 12 months?: Yes Did you have a dental problem in the last 6 months where you did not have access to dental care?: No Was dental information given to patient?: Patient has dentist HPI DM , Cholesterol , cough, hypertension HPI Details Patient comes in today for her follow up visit States that her knees are feeling a lot better - her knees were bothering her for a while when she fell oa couple of weeks ago States that her chronic low back pain and joint pains remain adequately controlled on her current Rx and regimen - she continues to follow up with pain management regularly She denies any headaches or dizziness Denies any chest pains, no SOB No nausea/vomiting, no abdominal pain No change in bowel habits noted Needs a couple of her Rx refilled Was not able to get her follow up labs done prior to her appointment today - states that she just completely forgot about them [facility] Medical History KAMILA positive Anxiety Arthralgia Asthma Benign essential hypertension CAD (coronary artery disease) Chronic interstitial cystitis Depression Dyspnea Esophageal stricture Foot pain, bilateral GERD (gastroesophageal reflux disease) Insomnia Irritable bowel syndrome (IBS) Left lumbar radiculopathy Lumbar spondylosis Obesity (BMI 30-39.9) BRIDGETTE (obstructive sleep apnea) Osteoarthritis Osteoarthritis of right knee Pure hypercholesterolemia Urticaria Vitamin D deficiency Surgical History History of cardiac catheterization History of colonoscopy History of nephrolithotomy with removal of calculi History of surgery History of tooth extraction History of total right knee replacement (09/22/21) Hx of cystoscopy Status post balloon dilatation of esophageal stricture (~2005) Family History Father Hypertension Mother Hypertension Diabetes CVD (cardiovascular disease) Daughter No problems noted. Family/Other FH: mental illness Other Mental health problem Substance abuse Social History Housing: Apartment Are you a primary cattle care worker to a significant other at home: No Do you presently have visiting nurse or other home services: No Alcohol intake: never Patient Tobacco Use Status: Never used Tobacco e-Cigarette/Vaping Use: Never Used Second Hand Smoke Exposure: No service: No Current occupational status: disabled Cognitive needs: No Hearing needs: No Vision needs: Yes Questionnaire PHQ-9 Over the last 2 weeks, how often have you been bothered by any of the following problems? 1. Little interest or pleasure in doing things: not at all 2. Feeling down, depressed, or hopeless: not at all 3. Trouble falling or staying asleep, or sleeping too much: not at all 4. Feeling tired or having little energy: not at all 5. Poor appetite or overeating: not at all 6. Feeling bad about yourself - or that you are a failure or have let yourself or your family down: not at all 7. Trouble concentrating on things, such as reading the newspaper or watching television: not at all 8. Moving or speaking so slowly that other people could have noticed. Or the opposite - being so fidgety or restless that you have been moving around a lot more than usual: not at all 9. Thoughts that you would be better off or of hurting yourself in some way: not at all Total score: 0 Depression Screening Interpretation: Negative (Rx is helping with her depression) 53958 - PHQ-9 Billing: Yes Source: Developed by Drs. Jorge Diallo, Yumiko Irvin, Celestino Banda and colleagues, with an educational mari from [employer]. Thrive Questionnaire Date Thrive assessed: 12/17/22 I am a: Patient What is your living situation today?: I have a steady place to live Within the past 12 months, did the food you bought not last and you didn't have the money to get more?: Never true Within the past 12 months, did you worry whether your food would run out before you got money to buy more?: Never true Do you have trouble paying for medicines?: No Do you have trouble getting transportation to medical appointments?: No Do you have trouble paying your heating and electricity bill?: No Do you have trouble taking care of your child, family member or friend?: No Do you have trouble with day-to-day activities such as bathing, preparing meals, shopping, managing finances, etc.?: No Are you currently unemployed and looking for a job?: No Are you interested in more education?: No Please select the resources that you would like help with: None Currently or been in a relationship where the following occur: no concerns reported AUDIT C Alcohol Use Questionnaire (AUDIT-C) 1. How often do you have a drink containing alcohol?: Never 2. How many drinks containing alcohol do you have on a typical day when you are drinking?: 1 or 2 3. How often do you have six or more drinks on one occasion?: Never Total Score: 0 Score Reviewed/Action Taken: Yes ADRIANA-7 AMB Questionnaire ADRIANA-7 Date ADRIANA - 7 assessed: 12/17/22 Feeling nervous, anxious, or on edge: 0 = Not at all Not being able to stop or control worryin = Not at all Worrying too much about different things: 0 = Not at all Trouble relaxin = Not at all Being so restless that it is hard to sit still: 0 = Not at all Becoming easily annoyed or irritable: 0 = Not at all Feeling afraid as if something awful might happen: 0 = Not at all Total ADRIANA-7 score (0-4 normal; 5-9 mild; 10-14 moderate; 15-21 severe): 0 Source: Developed by Drs. Jorge Diallo, Yumiko Irvin, Celestino Banda and colleagues, with an educational mari from [employer]. Review of Systems Const Denies chills, Denies fatigue, Denies fever(s) and Denies headache(s) ENT Denies dysphagia, Denies dizziness, Denies otalgia, Denies headache(s), Denies odynophagia and Denies sore throat Card Denies chest pain, Denies palpitations and Denies dyspnea Resp Denies cough, Denies dyspnea and Denies wheezing GI Denies abdominal pain, Denies constipation, Denies dysphagia, Denies heartburn, Denies diarrhea, Denies nausea, Denies odynophagia and Denies vomiting Denies difficulty voiding, Reports nocturia, Reports dysuria (on and off - has chronic IC) and Reports urinary urgency Musc Reports back pain (over the right lower back), Reports myalgias (diffuse - better lately), Reports arthralgias (right knee and over hips) and Reports radiating pain into limb (into the right thigh and leg) Skin/Breast Denies rash Neuro Denies dizziness and Denies headache(s) Psych Denies anxiety Endo Denies fatigue and Denies palpitations Stanton/Lymph Details: swelling of both hands and feet lately Aller/Immun Denies wheezing Physical exam (Primary Care) Vital Signs: Last Vital Signs Pulse 90 12/17/22 12:31 BP 114/62 12/17/22 12:31 Pulse Ox 94 12/17/22 12:31 Oxygen Delivery Method Room Air 12/17/22 12:31 BMI result Body Mass Index 38.4 Tobacco/Smoking Status: Tobacco use Status Tobacco use date assessed 12/17/22 12/17/22 12:40 Patient Tobacco Use Status Never used Tobacco 12/17/22 12:40 Tobacco use type 05/04/22 10:14 e-Cigarette/Vaping Use Never Used 12/17/22 12:40 PHQ-9: PHQ-9 Score PHQ-9: Total score 0 12/17/22 12:52 Depression Screening Interpretation: Negative (Rx is helping with her depression) Thrive Assessment: Date of Thrive Assessment Date Thrive assessed 12/17/22 12/17/22 12:40 Currently or been in a relationship where the following occur: no concerns reported Const General: no acute distress and alert HENMT Ears: TM's normal bilaterally and EAC's normal Throat: Yes posterior oropharynx normal and Yes tonsils normal (no TP congestion noted) Neck Neck: Yes no lymphadenopathy and Yes supple Resp Auscultation: clear to auscultation bilaterally, no rales and no wheezes Cardio Rate: regular rate Rhythm: regular rhythm Heart sounds: no murmurs GI Palpation (GI): Soft to palpation and nontender Auscultation: normal bowel sounds Back/Spine/Pelvis Thoracic/Lumbar Spine: paraspinal muscle tenderness on the right, lumbar spinal tenderness (chronic) and straight leg raise positive (slightly ) Extrem General: No clubbing, No cyanosis and Yes edema (trace pedal edema bilaterally) Right lower extremity: knee Details: tenderness; no swelling Left lower extremity: knee Details: tenderness; no swelling Results AMB Hemoglobin A1c AMB Hemoglobin A1c 5.7 % Last Edit by Mo Antonio on 12/17/22 12:53 Assessment and Plan Assessment & Plan (1) Spondylosis of lumbosacral spine with radiculopathy: Code(s): M47.27 - Other spondylosis with radiculopathy, lumbosacral region Plan: MRI of the lumbar spine done in February 2022 revealed that at L4-L5, there is markedly severe left and severe right facet arthropathy with a posterior disc protrusion and narrowing of the subarticular recesses as well as bilateral foraminal disc protrusions with impingement on the exiting L4 nerve roots. There is no significant central stenosis. At L5-S1 there is markedly severe facet arthropathy with a shallow posterior disc protrusion without central stenosis. There are left greater than right foraminal disc protrusions with impingement on the exiting left L5 nerve root. Lastly, at L3-L4 there is moderate facet arthropathy with a small posterior disc protrusion/extrusion without central stenosis. There are foraminal disc protrusions with impingement on the exiting right L3 nerve root. S/P bilateral lumbar RFA with sedation and fluoroscopy?on 05/26/22 and 06/09/22, and right L4-L5 TFESI?with local and fluoroscopy in 06/2022 - patient reports (+) significant improvement of her joint symptoms since Reinforced activity and weight-lifting restrictions Continue?Flexeril?10 mg 3 times a day as needed, Butrans 20 mcg patch once a week and Percocet 5-325 mg QD PRN for breakthrough pain Follow up with [facility] as scheduled - feels that she has been doing well with her current pain management regimen (2) Right hip pain: Code(s): M25.551 - Pain in right hip Plan: X-rays of the right hip done on 02/17/2022 revealed (+) moderate right hip OA Follow up with orthopedics as scheduled (3) Bilateral primary osteoarthritis of knee: Code(s): M17.0 - Bilateral primary osteoarthritis of knee Plan: S/P total right knee arthroplasty by Dr. Deras on 09/22/2021, with significant improvement of her knee symptoms since Follow up with orthopedics as scheduled (4) Polyarthralgia: Code(s): M25.50 - Pain in unspecified joint Plan: Patient has been tested previously for inflammatory joint disease, including RA and SLE - tests have all come back negative Has also been checked for Lyme disease, which came back negative Follow up with rheumatology as scheduled (5) Pure hypercholesterolemia: Code(s): E78.00 - Pure hypercholesterolemia, unspecified Plan: Is again not able to get her follow up labs done prior to her visit today Reinforced low cholesterol diet Continue Ezetimibe 10 mg QD; patient could not tolerate Rosuvastatin due to myalgia Was started on Atorvastatin 10 mg QD and she seems to be tolerating this so far Will have her recheck her labs and fasting lipids in 3 months for follow-up (6) Benign essential hypertension: Code(s): I10 - Essential (primary) hypertension Plan: Reinforced low sodium diet - goal is systolic BP of at least 130 to 140 mm or less Her blood pressure seems to be much better when she comes in here compared to her BP at all of her other appts; BP today rechecked with similar reading obtained Patient reminded to continue monitoring her blood pressure regularly (7) Asthma: Code(s): J45.909 - Unspecified asthma, uncomplicated Qualifiers: Asthma severity: moderate Asthma persistence: persistent Asthma complication type: uncomplicated Qualified Code(s): J45.40 - Moderate persistent asthma, uncomplicated Plan: Stable Continue Dupixent 200 mg SQ every 2 weeks, Breo Ellipta 200-25 mcg 1 inhalation QD, Montelukast 10 mg QD and Albuterol HFA 2 inhalations every 6 hours as needed Follow-up with pulmonary as scheduled (8) Impaired fasting glucose: Code(s): R73.01 - Impaired fasting glucose Plan: In-office HgbA1c done today is normal at 5.7% Reinforced low carb/low calorie diet - patient is reassured that her blood sugar remains normal overall (9) GERD (gastroesophageal reflux disease): Code(s): K21.9 - Gastro-esophageal reflux disease without esophagitis Qualifiers: Esophagitis presence: without esophagitis Qualified Code(s): K21.9 - Gastro-esophageal reflux disease without esophagitis Plan: Dietary restrictions reinforced Continue Omeprazole 40 mg QD (10) Esophageal stricture: Code(s): K22.2 - Esophageal obstruction Plan: S/P balloon dilatation by Dr. Nunez in 2005 -? states that she currently has no trouble swallowing Follow-up with Dr. Nunez as scheduled (11) Irritable bowel syndrome (IBS): Code(s): K58.9 - Irritable bowel syndrome without diarrhea Qualifiers: Irritable bowel syndrome type: unspecified Qualified Code(s): K58.9 - Irritable bowel syndrome without diarrhea Plan: Continue Dicyclomine 20 mg QID PRN Follow-up with GI as scheduled (12) Vitamin D deficiency: Code(s): E55.9 - Vitamin D deficiency, unspecified Plan: Continue Vitamin D2 83382 units weekly (13) Chronic interstitial cystitis: Comment: S/P hydrodistention on 07/07/20 Code(s): N30.10 - Interstitial cystitis (chronic) without hematuria Plan: Continue Phenazopyridine 200 mg every 6 hours as needed Has been seeing Dr. Lopez for urology follow up and management over the past few years and is now requesting referral to see another urologist for a second opinion Was referred to [facility] for further evaluation and management / second opinion (14) Nephrolithiasis: Code(s): N20.0 - Calculus of kidney Plan: Follow up renal US done back in July 2021 revealed (+) bilateral nonobstructive echogenic renal calculi, with no caliectasis or hydronephrosis seen Follow up with urology as scheduled (15) Insomnia: Code(s): G47.00 - Insomnia, unspecified Qualifiers: Insomnia type: unspecified Qualified Code(s): G47.00 - Insomnia, unspecified Plan: Sleep hygiene reinforced States that her Quetiapine helps with her sleep at night (16) Anxiety: Code(s): F41.9 - Anxiety disorder, unspecified Plan: Continue Clonazepam 1 mg 3 times a day as needed and Bupropion ER 200 mg QD in AM (17) Depression: Code(s): F32.9 - Major depressive disorder, single episode, unspecified Qualifiers: Depression Type: major depressive disorder Major depression recurrence: recurrent Active/Remission status: currently active Major depression episode severity: unspecified Qualified Code(s): F33.9 - Major depressive disorder, recurrent, unspecified Plan: Continue Quetiapine 200 mg QHS; is also on Bupropion ER 200 mg QD Follow-up with Psychiatry as scheduled (18) Obesity (BMI 30-39.9): Code(s): E66.9 - Obesity, unspecified Plan: Reinforced diet/exercise as tolerated/lose weight Plan Follow up in 3 months Orders: Orders Lipid Panel 3 Months E78.00 - Pure hypercholesterolemia, unspecified Complete Blood Count Auto Diff 3 Months I10 - Essential (primary) hypertension Comprehensive [place]. Panel Fast 3 Months E78.00 - Pure hypercholesterolemia, unspecified AMB Hemoglobin A1c Today Z13.9 - Encounter for screening, unspecified TSH reflex Free T4 3 Months E78.00 - Pure hypercholesterolemia, unspecified Vitamin D 25-OH Total 3 Months E55.9 - Vitamin D deficiency, unspecified UA CC w/rflx Micro + Cult 3 Months R30.0 - Dysuria Medications: Refilled albuterol sulfate 90 mcg/actuation 2 puffs PO Q6H PRN 8.5 ea 5RF for wheezing R06.02 - Shortness of breath ibuprofen Take with food 600 mg PO Q8H PRN 90 tabs 1RF pain Coding Level of Care Code Est Pt Level 4 (68675) Diagnoses Spondylosis of lumbosacral spine with radiculopathy M47.27 Right hip pain M25.551 Bilateral primary osteoarthritis of knee M17.0 Polyarthralgia M25.50 Pure hypercholesterolemia E78.00 Benign essential hypertension I10 Asthma J45.40 Asthma severity: moderate Asthma persistence: persistent Asthma complication type: uncomplicated Impaired fasting glucose R73.01 GERD (gastroesophageal reflux disease) K21.9 Esophagitis presence: without esophagitis Esophageal stricture K22.2 Irritable bowel syndrome (IBS) K58.9 Irritable bowel syndrome type: unspecified Vitamin D deficiency E55.9 Chronic interstitial cystitis N30.10 Nephrolithiasis N20.0 Insomnia G47.00 Insomnia type: unspecified Anxiety F41.9 Depression F33.9 Depression Type: major depressive disorder Major depression recurrence: recurrent Active/Remission status: currently active Major depression episode severity: unspecified Obesity (BMI 30-39.9) E66.9
== END 2022-12-17 13:04 | disposition home or self-care (01) ==
PROVIDERS: PCP Internal Medicine; Visit Provider Internal Medicine
DX: R73.01 Impaired fasting glucose (principal)
CPT/HCPCS: 83036; 99214

== ENCOUNTER 2022-12-30 11:33 | Outpatient (AMB) | payer OTHER, MEDICAID, SELFPAY ==
[2022-12-30 11:40] VITALS: BP 110/68; PULSE 79; O2SAT 98; BMI 38.8
--- NOTE | 2022-12-30 11:40 | A.OFFPC_ITS ---
Vital Signs 12/30/22 11:40 Height 4 ft 11 in Weight 192 lb BMI 38.8 BP 110/68 Blood Pressure Location Lt brachial Position Sitting Pulse 79 Pulse Source Pulse Oximeter Pulse Oximetry (%) 98 Oxygen Delivery Method Room Air Intake Visit Reasons: pain right shoulder, neck, arm Tacker Off Required: No Accompanied by: Self / Same As Patient Allergies Penicillins [PENICILLINS] Allergy (Intermediate, Verified 12/30/22 22:50) RASH Medication List - Last Reconciled 12/30/22 by Curt Falk MD acetaminophen 650 mg (2 x 325 mg) PO Q6H PRN 30 days [ADULT PULL-UPS As directed] albuterol sulfate 90 mcg/actuation 2 puffs PO Q6H PRN aspirin 81 mg PO DAILY atorvastatin 10 mg PO BEDTIME 90 days blood pressure kit-extra large As directed buprenorphine HCl 450 mcg buccal Q12H 30 days calcium carbonate (Oyster Shell Calcium) 500 mg PO DAILY 90 days cane Cane dupilumab (Dupixent) 300 mg subcut Q2W escitalopram oxalate 20 mg PO DAILY ezetimibe 10 mg PO DAILY fluticasone furoate-vilanterol 200-25 mcg/dose (Breo Ellipta) 1 inh inhalation DAILY 30 days ibuprofen 600 mg PO Q8H PRN naloxone 4 mg/actuation (Narcan) 4 mg intranasal Q3M PRN omeprazole 40 mg PO DAILY 90 days oxycodone 5 mg PO DAILY PRN 30 days quetiapine 50 mg PO BEDTIME tizanidine 2 mg PO BID PRN trazodone 200 mg PO BEDTIME PRN triamcinolone acetonide 0.1% grams topical Tobacco use date assessed: 12/30/22 Fall risk assessment: 2 + Falls in past year Last assessed Fall Risk: 12/30/22 Dental Screening Dental Screen Date: 12/30/22 Did you have a dental visit in the last 12 months?: Yes Did you have a dental problem in the last 6 months where you did not have access to dental care?: No Was dental information given to patient?: Patient has dentist HPI pain right shoulder, neck, arm HPI Details Patient comes in today complaining of increasing pain over her right shoulder lately States that she has had on and off right shoulder pain for the past couple of months now but feels that the pain has gotten worse lately and the pain is now radiating up into the right side of her neck and also down into her right arm She denies any recent injury or trauma to her right shoulder She continues to see pain management for her chronic low back pain and states that her current pain medications help with her shoulder pain as well No other acute complaints or symptoms are noted [facility] Medical History Osteoarthritis of right knee Lumbar spondylosis Foot pain, bilateral BRIDGETTE (obstructive sleep apnea) Asthma Dyspnea KAMILA positive Urticaria Obesity (BMI 30-39.9) Depression Anxiety Insomnia Vitamin D deficiency Chronic interstitial cystitis Irritable bowel syndrome (IBS) Arthralgia Osteoarthritis Esophageal stricture GERD (gastroesophageal reflux disease) Left lumbar radiculopathy CAD (coronary artery disease) Pure hypercholesterolemia Benign essential hypertension Surgical History History of surgery History of total right knee replacement (09/22/21) Hx of cystoscopy Status post balloon dilatation of esophageal stricture (~2005) History of cardiac catheterization History of colonoscopy History of nephrolithotomy with removal of calculi History of tooth extraction Family History Father Hypertension Mother Hypertension Diabetes CVD (cardiovascular disease) Daughter No problems noted. Family/Other FH: mental illness Other Mental health problem Substance abuse Social History Housing: Apartment Are you a primary certified social workers in health care to a significant other at home: No Do you presently have visiting nurse or other home services: No Alcohol intake: never Patient Tobacco Use Status: Never used Tobacco e-Cigarette/Vaping Use: Never Used Second Hand Smoke Exposure: No service: No Current occupational status: disabled Cognitive needs: No Hearing needs: No Vision needs: Yes Questionnaire PHQ-9 Over the last 2 weeks, how often have you been bothered by any of the following problems? 1. Little interest or pleasure in doing things: not at all 2. Feeling down, depressed, or hopeless: not at all 3. Trouble falling or staying asleep, or sleeping too much: not at all 4. Feeling tired or having little energy: not at all 5. Poor appetite or overeating: not at all 6. Feeling bad about yourself - or that you are a failure or have let yourself or your family down: not at all 7. Trouble concentrating on things, such as reading the newspaper or watching television: not at all 8. Moving or speaking so slowly that other people could have noticed. Or the opposite - being so fidgety or restless that you have been moving around a lot more than usual: not at all 9. Thoughts that you would be better off or of hurting yourself in some way: not at all Total score: 0 Depression Screening Interpretation: Negative (Rx is helping with her depression) 13742 - PHQ-9 Billing: Yes Source: Developed by Drs. Jorge Diallo, Yumiko Irvin, Celestino Banda and colleagues, with an educational mari from [employer]. Thrive Questionnaire Date Thrive assessed: 12/30/22 I am a: Patient What is your living situation today?: I have a steady place to live Within the past 12 months, did the food you bought not last and you didn't have the money to get more?: Never true Within the past 12 months, did you worry whether your food would run out before you got money to buy more?: Never true Do you have trouble paying for medicines?: No Do you have trouble getting transportation to medical appointments?: No Do you have trouble paying your heating and electricity bill?: No Do you have trouble taking care of your child, family member or friend?: No Do you have trouble with day-to-day activities such as bathing, preparing meals, shopping, managing finances, etc.?: No Are you currently unemployed and looking for a job?: No Are you interested in more education?: No Please select the resources that you would like help with: None Currently or been in a relationship where the following occur: no concerns reported AUDIT C Alcohol Use Questionnaire (AUDIT-C) 1. How often do you have a drink containing alcohol?: Never 2. How many drinks containing alcohol do you have on a typical day when you are drinking?: 1 or 2 3. How often do you have six or more drinks on one occasion?: Never Total Score: 0 Score Reviewed/Action Taken: Yes ADRIANA-7 AMB Questionnaire ADRIANA-7 Date ADRIANA - 7 assessed: 12/30/22 Feeling nervous, anxious, or on edge: 0 = Not at all Not being able to stop or control worryin = Not at all Worrying too much about different things: 0 = Not at all Trouble relaxin = Not at all Being so restless that it is hard to sit still: 0 = Not at all Becoming easily annoyed or irritable: 0 = Not at all Feeling afraid as if something awful might happen: 0 = Not at all Total ADRIANA-7 score (0-4 normal; 5-9 mild; 10-14 moderate; 15-21 severe): 0 Source: Developed by Drs. Jorge Diallo, Yumiko Irvin, Celestino Banda and colleagues, with an educational mari from [employer]. Review of Systems Const Denies chills, Denies fatigue, Denies fever(s) and Denies headache(s) ENT Denies dysphagia, Denies dizziness, Denies otalgia, Denies headache(s), Denies odynophagia and Denies sore throat Card Denies chest pain, Denies palpitations and Denies dyspnea Resp Denies cough, Denies dyspnea and Denies wheezing GI Denies abdominal pain, Denies constipation, Denies dysphagia, Denies heartburn, Denies diarrhea, Denies nausea, Denies odynophagia and Denies vomiting Denies difficulty voiding, Reports nocturia, Reports dysuria (on and off - has chronic IC) and Reports urinary urgency Musc Reports back pain (over the right lower back), Reports myalgias (diffuse - better lately), Reports arthralgias (right knee and over hips; now also over right shoulder - increasing lately) and Reports radiating pain into limb (into the right thigh and leg; right shoulder pain going into neck/arm) Skin/Breast Denies rash Neuro Denies dizziness and Denies headache(s) Psych Denies anxiety Endo Denies fatigue and Denies palpitations Stanton/Lymph Details: swelling of both hands and feet lately Aller/Immun Denies wheezing Physical exam (Primary Care) Vital Signs: Last Vital Signs Pulse 79 12/30/22 11:40 BP 110/68 12/30/22 11:40 Pulse Ox 98 12/30/22 11:40 Oxygen Delivery Method Room Air 12/30/22 11:40 BMI result Body Mass Index 38.8 Tobacco/Smoking Status: Tobacco use Status Tobacco use date assessed 12/30/22 12/30/22 11:42 Patient Tobacco Use Status Never used Tobacco 12/30/22 11:42 Tobacco use type 05/04/22 10:14 e-Cigarette/Vaping Use Never Used 12/30/22 11:42 PHQ-9: PHQ-9 Score PHQ-9: Total score 0 12/30/22 12:38 Depression Screening Interpretation: Negative (Rx is helping with her depression) Thrive Assessment: Date of Thrive Assessment Date Thrive assessed 12/30/22 12/30/22 11:42 Currently or been in a relationship where the following occur: no concerns reported Const General: no acute distress and alert HENMT Ears: TM's normal bilaterally and EAC's normal Throat: Yes posterior oropharynx normal and Yes tonsils normal (no TP congestion noted) Neck Neck: Yes no lymphadenopathy and Yes supple Resp Auscultation: clear to auscultation bilaterally, no rales and no wheezes Cardio Rate: regular rate Rhythm: regular rhythm Heart sounds: no murmurs GI Palpation (GI): Soft to palpation and nontender Auscultation: normal bowel sounds Back/Spine/Pelvis Thoracic/Lumbar Spine: paraspinal muscle tenderness on the right, lumbar spinal tenderness (chronic) and straight leg raise positive (slightly ) Extrem General: No clubbing, No cyanosis and Yes edema (trace pedal edema bilaterally) Right upper extremity: shoulder/upper arm Details: tenderness Location: of the A-C joint and abnormal ROM (ROM limited due to pain - unable to raise right arm above shoulder level) Right lower extremity: knee Details: tenderness; no swelling Left lower extremity: knee Details: tenderness; no swelling Assessment and Plan Assessment & Plan (1) Right shoulder pain: Code(s): M25.511 - Pain in right shoulder Qualifiers: Chronicity: unspecified Qualified Code(s): M25.511 - Pain in right shoulder Plan: Will send patient for x-rays of the right shoulder DESEAN for further evaluation She has had right shoulder x-rays done back in 2019 that came out normal Advised that her current right shoulder symptoms are suggestive of some slight rotator cuff disease, likely tendinitis or bursitis, and once we have her x-ray results, we should have a better idea of how to go about managing her symptoms Discussed that she will likely need a referral to physical therapy and/or orthopedics and we will make out a referral once her x-ray results are available for review Have advised patient in the meantime to continue with passive range of motion exercises on her right shoulder to keep it from freezing up Plan Follow up as scheduled in March 2023 Orders: Orders XR shoulder RT min 2V 12/30/22 M25.511 - Pain in right shoulder Coding Level of Care Code Est Pt Level 3 (31965) Diagnoses Right shoulder pain, unspecified chronicity M25.511 Chronicity: unspecified
== END 2022-12-30 13:05 | disposition home or self-care (01) ==
PROVIDERS: PCP Internal Medicine; Visit Provider Internal Medicine
DX: M25.511 Pain in right shoulder (principal)
CPT/HCPCS: 99213

== ENCOUNTER 2022-12-30 12:44 | Outpatient (REF) | payer OTHER, SELFPAY ==
--- NOTE | ~2022-12-30 | XR_ITS ---
EXAMINATION: XR SHOULDER, RIGHT CLINICAL INFORMATION: Pain in right shoulder COMPARISON: 05/29/2019 TECHNIQUE: 4 views of the right shoulder. FINDINGS: Rightward curvature of the upper thoracic spine with advanced degenerative changes. Mild degenerative changes in the acromioclavicular joint. Mild hypertrophic change along the inferior aspect of the glenoid. No abnormal soft tissue calcifications identified adjacent to the humeral head. XR/XR shoulder RT min 2V IMPRESSION: Mild degenerative changes.
== END 2022-12-30 12:45 | disposition home or self-care (01) ==
LOC: HO.XRAY 12:44
PROVIDERS: PCP Internal Medicine; Visit Provider Internal Medicine
DX: M25.511 Pain in right shoulder (principal)
CPT/HCPCS: 73030

== ENCOUNTER 2023-01-13 10:16 | Outpatient (AMB) | payer OTHER, MEDICAID, SELFPAY ==
--- NOTE | 2023-01-13 10:19 | MHC.OFFVIS ---
Intake Vital Signs 01/13/23 10:27 Height 4 ft 11 in Weight 188 lb 6 oz BMI 38.0 BP 137/63 Blood Pressure Location Rt brachial Position Sitting Pulse 67 Pulse Source Pulse Oximeter Pulse Oximetry (%) 98 Oxygen Delivery Method Room Air Intake Visit Reasons: PILL COUNT Intake Note: Celia comes in today for a pill count to oxycodone and a film count to belbuca, patient should have 24 tablets of oxycodone and presents with 26 tablets which she last took 2 days ago on 01/11/23, belbuca presents with 25 films which she last took today 01/13/23 at 9am. Pain today 08/25 Aquatics Coordinator Required: No Accompanied by: Self / Same As Patient Allergies Penicillins [PENICILLINS] Allergy (Intermediate, Verified 01/13/23 10:27) RASH HPI HPI Comments History of Present Illness Details Patient presents today for a pill and film count. For Belbuca, #24 films were expected, and #25 films were presented. For oxycodone, #24 pills were expected, and #26 pills were presented. This demonstrates a responsible attitude in regards to the medication regimen. Patient reports adequate analgesia with recent increase in [facility] [place] for her back and knee pain. Patient is content with her current medication regime and reports able to prepare for her move this weekend to a new place. Denies any fever, weight changes, shortness of breaths, abdominal or groin pain, constipation, nausea, sedation, dizziness, foot drop, urinary retention, bladder or bowel incontinence or saddle anesthesia. Past Procedures: 11/05/22: Right femoral nerve block- no right knee pain for 5 hours 07/07/22: Left L3-L4-L5 MB RFA-80% ongoing pain relief 06/16/22: Right L4-L5 TFESI-80% ongoing pain relief 05/26/22: Right L3-L4-L5 MB RFA- 80% pain relief 04/21/22: Right intra-articular hip steroid injection -ongoing 50% pain relief . 08/19/21: Bilateral L3-L4-L5 Diagnostic MBBs ? 80% pain relief for 8 hours 06/17/21: Bilateral Diagnostic L3-L4-L5 MBBs ? 75% relief for 1 day [facility] Medical History Osteoarthritis of right knee Lumbar spondylosis Foot pain, bilateral BRIDGETTE (obstructive sleep apnea) Asthma Dyspnea KAMILA positive Urticaria Obesity (BMI 30-39.9) Depression Anxiety Insomnia Vitamin D deficiency Chronic interstitial cystitis Irritable bowel syndrome (IBS) Arthralgia Osteoarthritis Esophageal stricture GERD (gastroesophageal reflux disease) Left lumbar radiculopathy CAD (coronary artery disease) Pure hypercholesterolemia Benign essential hypertension Surgical History History of surgery History of total right knee replacement (09/22/21) Hx of cystoscopy Status post balloon dilatation of esophageal stricture (~2005) History of cardiac catheterization History of colonoscopy History of nephrolithotomy with removal of calculi History of tooth extraction Family History Father Hypertension Mother Hypertension Diabetes CVD (cardiovascular disease) Daughter No problems noted. Family/Other FH: mental illness Other Mental health problem Substance abuse Social History Housing: Apartment Are you a primary manager medicare marketing to a significant other at home: No Do you presently have visiting nurse or other home services: No Alcohol intake: never Patient Tobacco Use Status: Never used Tobacco e-Cigarette/Vaping Use: Never Used Second Hand Smoke Exposure: No service: No Current occupational status: disabled Cognitive needs: No Hearing needs: No Vision needs: Yes Review of Systems Const All systems reviewed & are unremarkable except as noted in HPI and below Physical Exam Vital Signs: Last Vital Signs Pulse 67 01/13/23 10:27 BP 137/63 01/13/23 10:27 Pulse Ox 98 01/13/23 10:27 Oxygen Delivery Method Room Air 01/13/23 10:27 BMI result Body Mass Index 38.0 General: Appears afebrile. Alert and oriented. Mood and affect appropriate. Follows and participates in conversation appropriately. Respiratory effort is unlabored. Able to transition from sit to stand unassisted. Psych Appearance: grossly normal and well kempt Mental Status: mental status grossly normal Speech and movement: Normal speech and movement present and Clear speech present Affect: normal affect Attitude: cooperative Thought process: Normal thought process present Thought content: Normal thought content present, suicidality (none), no hallucinations and No Depressive thoughts present Insight: Good insight present (Psych) Judgement: Good judgement present (Psych) Results Reviewed Results Reviewed: ECG 12 lead EKG 09/23/22 Test Reason : cp Blood Pressure : / mmHG Vent. 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 There is no evidence of misuse, abuse or diversion at this time. MassPat reviewed and consistent. Will send script for oxycodone-acetaminophen 5-325 mg daily prn 02/05/23 and will increase Belbuca at 450 mcg BID on 01/24/23. Patient reports adequate analgesia on current opioid regime for her chronic back pain and bilateral knee pain. Patient will reach out to our office if her back symptoms will worsen to discuss interventional treatments. Advised to avoid heavy lifting or pulling as she prepares for her move this weekend. Patient's annual EKG was complete in September 2022, with QT and QTc within normal range, she has upcoming follow up with Cardiology next week. All questions and concerns have been answered and patient agreed with the plan. Follow up for pill count in 4-5 weeks and sooner if needed. Medications: Refilled buprenorphine HCl 450 mcg buccal Q12H 30 days 60 ea 0RF pain G89.4 - Chronic pain syndrome, M17.0 - Bilateral primary osteoarthritis of knee, M54.16 - Radiculopathy, lumbar region oxycodone Partial Fill upon patient request. 5 mg PO DAILY 30 days PRN 30 tabs 0RF pain, severe G89.4 - Chronic pain syndrome, M47.27 - Other spondylosis with radiculopathy, lumbosacral region Coding Level of Care Code Est Pt Level 4 (21443) Diagnoses Chronic pain syndrome G89.4 Opioid contract exists Z79.891 Lumbar spondylosis M47.816 Lumbar radiculopathy M54.16 Bilateral primary osteoarthritis of knee M17.0
[2023-01-13 10:27] VITALS: BP 137/63; PULSE 67; O2SAT 98; BMI 38.0
== END 2023-01-13 10:35 | disposition home or self-care (01) ==
PROVIDERS: PCP Internal Medicine; Visit Provider Nurse Practitioner Family
DX: G89.4 Chronic pain syndrome (principal); M47.816 Spondylosis without myelopathy or radiculopathy, lumbar region; M54.16 Radiculopathy, lumbar region; Z79.891 Long term (current) use of opiate analgesic; M17.0 Bilateral primary osteoarthritis of knee
CPT/HCPCS: 99214

== ENCOUNTER → 2023-01-13 10:16 | Outpatient (BNVA) | payer OTHER, MEDICAID, SELFPAY | PROVIDERS: PCP Internal Medicine; Visit Provider Nurse Practitioner Family | DX: G89.4 Chronic pain syndrome (principal); M47.26 Other spondylosis with radiculopathy, lumbar region; M17.0 Bilateral primary osteoarthritis of knee; Z79.891 Long term (current) use of opiate analgesic | CPT/HCPCS: 99212 ==

== ENCOUNTER 2023-02-17 10:33 | Outpatient (AMB) | payer OTHER, MEDICAID, SELFPAY ==
--- NOTE | 2023-02-17 10:36 | A.OFFVIS_ITS ---
Intake Vital Signs 02/17/23 10:45 Height 4 ft 11 in Weight 185 lb 6 oz BMI 37.4 BP 136/60 Blood Pressure Location Rt brachial Position Sitting Pulse 63 Pulse Source Pulse Oximeter Pulse Oximetry (%) 97 Oxygen Delivery Method Room Air Intake Visit Reasons: Pill count/lvm Intake Note: Celia comes in today for a pill count to oxycodone, and a film count to belbuca. Patient should have 22 films of belbuca and presents with 24 film which she last took today 02/17/23 at 9:30am, oxycodone should have 20 tablets and presents with 22 tablets which she last took yesterday 02/16/23 at 9am. Pain today 05/28 Set Up And Lay Out Inspector Required: No Accompanied by: Self / Same As Patient Allergies Penicillins [PENICILLINS] Allergy (Intermediate, Verified 02/17/23 10:45) RASH HPI HPI Comments History of Present Illness Details Patient presents today for a pill and film count. For Belbuca, #22 films were expected, and #24 films were presented. For oxycodone, #20 pills were expected, and #22 pills were presented. This demonstrates a responsible attitude in regards to the medication regimen. Patient reports adequate analgesia on her current regime for her back and knee pain. She reports occasional dizziness. Denies any loss of balance or falls. Denies any fever, weight changes, shortness of breaths, abdominal or groin pain, constipation, na usea, sedation, foot drop, urinary retention, bladder or bowel incontinence or saddle anesthesia. Past Procedures: 11/05/22: Right femoral nerve block- no right knee pain for 5 hours 07/07/22: Left L3-L4-L5 MB RFA-80% ongoi ng pain relief 06/16/22: Right L4-L5 TFESI-80% ongoing pain relief 05/26/22: Right L3-L4-L5 MB RFA- 80% heidy n relief 04/21/22: Right intra-articular hip ster oid injection -ongoing 50% pain relief . 08/19/21: Bilateral L3-L4-L5 Diagnostic MBBs ? 80% pain relief for 8 hours 06/17/21: Bilateral Diagnostic L3-L4-L5 MBBs ? 75% relief for 1 day [facility] Medical History Osteoarthritis of right knee Lumbar spondylosis Foot pain, bilateral BRIDGETTE (obstructive sleep apnea) Asthma Dyspnea KAMILA positive Urticaria Obesity (BMI 30-39.9) Depression Anxiety Insomnia Vitamin D deficiency Chronic interstitial cystitis Irritable bowel syndrome (IBS) Arthralgia Osteoarthritis Esophageal stricture GERD (gastroesophageal reflux disease) Left lumbar radiculopathy CAD (coronary artery disease) Pure hypercholesterolemia Benign essential hypertension Surgical History History of surgery History of total right knee replacement (09/22/21) Hx of cystoscopy Status post balloon dilatation of esophageal stricture (~2005) History of cardiac catheterization History of colonoscopy History of nephrolithotomy with removal of calculi History of tooth extraction Family History Father Hypertension Mother Hypertension Diabetes CVD (cardiovascular disease) Daughter No problems noted. Family/Other FH: mental illness Other Mental health problem Substance abuse Social History Housing: Apartment Are you a primary inpatient care manager rn to a significant other at home: No Do you presently have visiting nurse or other home services: No Alcohol intake: never Patient Tobacco Use Status: Never used Tobacco e-Cigarette/Vaping Use: Never Used Second Hand Smoke Exposure: No service: No Current occupational status: disabled Cognitive needs: No Hearing needs: No Vision needs: Yes Review of Systems Const All systems reviewed & are unremarkable except as noted in HPI and below Physical Exam General: Appears afebrile. Alert and oriented. Mood and affect appropriate. Follows and participates in conversation appropriately. Respiratory effort is unlabored. Able to transition from sit to stand unassisted. Psych Appearance: grossly normal and well kempt Mental Status: mental status grossly normal Speech and movement: Normal speech and movement present and Clear speech present Affect: normal affect Attitude: cooperative Thought process: Normal thought process present Thought content: Normal thought content present, suicidality (none), no hallucinations and No Depressive thoughts present Insight: Good insight present (Psych) Judgement: Good judgement present (Psych) Assessment & Plan Assessment & Plan (1) Chronic pain syndrome: Code(s): G89.4 - Chronic pain syndrome (2) Opioid contract exists: Code(s): Z79.891 - shelter (current) use of opiate analgesic (3) Lumbar spondylosis: Code(s): M47.816 - Spondylosis without myelopathy or radiculopathy, lumbar region (4) Bilateral primary osteoarthritis of knee: Code(s): M17.0 - Bilateral primary osteoarthritis of knee (5) Right knee pain: Code(s): M25.561 - Pain in right knee Plan Patient has shown accountability for her medication regimen and the pill/patch count was accurate. There is no evidence of misuse, abuse or diversion at this time. [employer] reviewed and consistent. Will send script for oxycodone- acetaminophen 5-325 mg daily prn 03/09/23 and will decrease Belbuca back at 300 mcg BID on 02/28/23. Patient will continue on Belbuca 450 mcg BID for 2 more weeks without taking Oxycodone and monitor her pain. All questions and concerns have been answered and patient agreed with the plan. Follow up for pill count in 4-5 weeks and sooner if needed. 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
[2023-02-17 10:45] VITALS: BP 136/60; PULSE 63; O2SAT 97; BMI 37.4
== END 2023-02-17 10:53 | disposition home or self-care (01) ==
PROVIDERS: PCP Internal Medicine; Visit Provider Nurse Practitioner Family
DX: G89.4 Chronic pain syndrome (principal); Z79.891 Long term (current) use of opiate analgesic; M47.816 Spondylosis without myelopathy or radiculopathy, lumbar region; M17.0 Bilateral primary osteoarthritis of knee; M25.561 Pain in right knee
CPT/HCPCS: 99214

== ENCOUNTER → 2023-02-17 10:33 | Outpatient (BNVA) | payer OTHER, MEDICAID, SELFPAY | PROVIDERS: PCP Internal Medicine; Visit Provider Nurse Practitioner Family | DX: M17.0 Bilateral primary osteoarthritis of knee (principal); M25.561 Pain in right knee; M47.816 Spondylosis without myelopathy or radiculopathy, lumbar region; G89.4 Chronic pain syndrome; Z79.891 Long term (current) use of opiate analgesic | CPT/HCPCS: 99212 ==

== ENCOUNTER 2023-03-17 10:09 | Outpatient (AMB) | payer OTHER, SELFPAY ==
--- NOTE | 2023-03-17 10:14 | A.OFFVIS_ITS ---
Intake Vital Signs 03/17/23 10:22 Height 4 ft 11 in Weight 187 lb 8 oz BMI 37.9 BP 135/63 Blood Pressure Location Rt brachial Position Sitting Pulse 77 Pulse Source Pulse Oximeter Pulse Oximetry (%) 98 Oxygen Delivery Method Room Air Intake Visit Reasons: PILL COUNT/lvm Intake Note: Celia comes in today for a film count to Belbuca and a pill count to Oxycodone. Patient should have 6 films and presents with 12 films which she last took today 03/17/23 at 8am. Oxycodone should have 0 and presents with 0 which she last took Tuesday03/14/23. Pain today 10/25. Allergies Penicillins [PENICILLINS] Allergy (Intermediate, Verified 03/17/23 10:22) RASH HPI HPI Comments History of Present Illness Details Patient presents today for a pill and film count. For Belbuca, #6 films were expected, and #12 films were presented. For oxycodone, #0 pills were expected, and #0 pills were presented. This demonstrates a responsible attitude in regards to the medication regimen. Patient reports inadequate analgesia for her back and knee pain with Belbuca only for the past month as she was not able to fill her oxycodone script last month. Patient reports she has notified her pharmacy but forgot to notify our office. Denies any constipation, nausea, sedation, foot drop, urinary retention, bladder or bowel incontinence or saddle anesthesia. Patient also reports increased depressive states lately. She regularly sees her Psychologist and Mental Therapist and has upcoming follow up next week with consideration to adjust her medications. Patient denies any hallucinations, SI/HI thoughts. Denies any recent cough, cold, infection, fever, dizziness, shortness of breaths or other significant changes in medical history since last office visit. Past Procedures: 11/05/22: Right femoral nerve block- no right knee pain for 5 hours 07/07/22: Left L3-L4-L5 MB RFA-80% ongoi ng pain relief 06/16/22: Right L4-L5 TFESI-80% ongoing pain relief 05/26/22: Right L3-L4-L5 MB RFA- 80% heidy n relief 04/21/22: Right intra-articular hip ster oid injection -ongoing 50% pain relief . 08/19/21: Bilateral L3-L4-L5 Diagnostic MBBs ? 80% pain relief for 8 hours 06/17/21: Bilateral Diagnostic L3-L4-L5 MBBs ? 75% relief for 1 day [facility] Medical History Osteoarthritis of right knee Lumbar spondylosis Foot pain, bilateral BRIDGETTE (obstructive sleep apnea) Asthma Dyspnea KAMILA positive Urticaria Obesity (BMI 30-39.9) Depression Anxiety Insomnia Vitamin D deficiency Chronic interstitial cystitis Irritable bowel syndrome (IBS) Arthralgia Osteoarthritis Esophageal stricture GERD (gastroesophageal reflux disease) Left lumbar radiculopathy CAD (coronary artery disease) Pure hypercholesterolemia Benign essential hypertension Surgical History History of surgery History of total right knee replacement (09/22/21) Hx of cystoscopy Status post balloon dilatation of esophageal stricture (~2005) History of cardiac catheterization History of colonoscopy History of nephrolithotomy with removal of calculi History of tooth extraction Family History Father Hypertension Mother Hypertension Diabetes CVD (cardiovascular disease) Daughter No problems noted. Family/Other FH: mental illness Other Mental health problem Substance abuse Social History Housing: Apartment Are you a primary director of home care hospice to a significant other at home: No Do you presently have visiting nurse or other home services: No Alcohol intake: never Comment: medicated, see MAR Patient Tobacco Use Status: Never used Tobacco e-Cigarette/Vaping Use: Never Used Second Hand Smoke Exposure: No service: No Current occupational status: disabled Cognitive needs: No Hearing needs: No Vision needs: Yes Review of Systems Const All systems reviewed & are unremarkable except as noted in HPI and below Physical Exam General: Appears afebrile. Alert and oriented. Mood and affect appropriate. Follows and participates in conversation appropriately. Respiratory effort is unlabored. Able to transition from sit to stand unassisted. Back/Spine/Pelvis Cervical Spine: cervical ROM normal and No Cervical spine tenderness Thoracic/Lumbar Spine: pain with thoraco-lumbar ROM, paraspinal muscle tenderness, thoraco-lumbar ROM limited, No thoracic spinal tenderness and lumbar spinal tenderness Psych Appearance: grossly normal and well kempt Mental Status: mental status grossly normal Speech and movement: Normal speech and movement present and Clear speech present Affect: normal affect Attitude: cooperative Thought process: Normal thought process present Thought content: Normal thought content present, suicidality (none), no hallucinations and No Depressive thoughts present Insight: Good insight present (Psych) Judgement: Good judgement present (Psych) Results Reviewed Results Reviewed: ECG 12 lead EKG 09/23/22 Test Reason : cp Blood Pressure : / mmHG Vent. 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 There is no evidence of misuse, abuse or diversion at this time. [employer] reviewed and consistent. Scripts for oxycodone-acetaminophen 5-325 mg daily prn and will increase Belbuca to 450 mcg BID, scripts sent today. Follow up with Psychology and Mental Therapy providers as planned. All questions and concerns have been answered and patient agreed with the plan. Follow up for pill count in 4 weeks and sooner if needed. Medications: Changed From buprenorphine HCl 300 mcg buccal Q12H 30 days 60 ea 0RF pain G89.4 - Chronic pain syndrome, M17.0 - Bilateral primary osteoarthritis of knee, M25.561 - Pain in right knee To buprenorphine HCl 450 mcg buccal Q12H 30 days 60 ea 0RF pain G89.4 - Chronic pain syndrome, M17.0 - Bilateral primary osteoarthritis of knee, M25.561 - Pain in right knee Refilled oxycodone Partial Fill upon patient request. 5 mg PO DAILY 30 days PRN 30 tabs 0RF pain, severe G89.4 - Chronic pain syndrome, M47.27 - Other spondylosis with radiculopathy, lumbosacral region Coding Level of Care Code Est Pt Level 4 (11828) Diagnoses Chronic pain syndrome G89.4 Opioid contract exists Z79.891 Lumbar spondylosis M47.816 Bilateral primary osteoarthritis of knee M17.0 Right knee pain M25.561
[2023-03-17 10:22] VITALS: BP 135/63; PULSE 77; O2SAT 98; BMI 37.9
== END 2023-03-17 10:31 | disposition home or self-care (01) ==
PROVIDERS: PCP Internal Medicine; Visit Provider Nurse Practitioner Family
DX: G89.4 Chronic pain syndrome (principal); Z79.891 Long term (current) use of opiate analgesic; M47.816 Spondylosis without myelopathy or radiculopathy, lumbar region; M17.0 Bilateral primary osteoarthritis of knee; M25.561 Pain in right knee
CPT/HCPCS: 99214

== ENCOUNTER → 2023-03-17 10:09 | Outpatient (BNVA) | payer OTHER, MEDICAID, SELFPAY | PROVIDERS: PCP Internal Medicine; Visit Provider Nurse Practitioner Family | DX: G89.4 Chronic pain syndrome (principal); Z79.891 Long term (current) use of opiate analgesic | CPT/HCPCS: 99212 ==

== ENCOUNTER 2023-03-25 07:26 | Outpatient (REF) | payer OTHER, SELFPAY ==
[2023-03-25 07:38] LABS: MANUAL DIFF FLAG NO
[2023-03-25 07:59] LABS: Basophils Absolute Auto 0.1 X10*3/uL (0.0-0.2); Basophils Percent Auto 0.8 % (0-2); Eosinophils Absolute Auto 0.4 X10*3/uL (0.0-0.4); Eosinophils Percent Auto 5.9 % (0-4); Hematocrit 35.8 % (37.0-47.0); Hemoglobin 11.5 g/dl (12.0-16.0); Imm Gran Abs Auto 0.02 X10*3/uL (0.00-0.03); Imm Gran Pct Auto 0.3 % (0.0-0.4); Lymphocytes Absolute Auto 2.3 X10*3/uL (1.2-4.9); Lymphocytes Percent Auto 35.9 % (20-40); Mean Corpuscular HGB Conc 32.1 g/dl (31.0-35.0); Mean Corpuscular Hemoglobin 27.1 pg (27.0-33.0); Mean Corpuscular Volume 84.2 fL (80.0-98.0); Mean Platelet Volume 11.1 fL (9.4-12.3); Monocytes Absolute Auto 0.4 X10*3/uL (0.1-1.2); Monocytes Percent Auto 6.1 % (2-11); Neutrophils Absolute Auto 3.3 x10*3/uL (2.0-8.3); Platelet Count 191 X10*3/uL (160-400); Red Blood Count 4.25 X10*6/uL (4.20-5.50); Red Cell Distribution Width 13.4 % (11.0-16.0); White Blood Count 6.4 X10*3/uL (4.8-10.8)
[2023-03-25 08:45] LABS: Alanine Aminotransferase 9 U/L (0-31); Alkaline Phosphatase 80 U/L (39-117); Anion Gap 10 (12-20); Aspartate Amino Transferase 15 U/L (5-31); Bilirubin Total 0.3 mg/dL (0.0-1.0); Blood Urea Nitrogen 14 mg/dL (9-16); Calcium 9.5 mg/dL (8.4-10.2); Carbon Dioxide 29 mmol/L (22-29); Chloride 109 mmol/L (96-108); Cholesterol 119 mg/dL (<200); Estimated Glomerular Filt Rate > 60; Glucose Fasting 95 mg/dL (60-99); HDL Cholesterol 40 mg/dL (>40); LDL Cholesterol Calculated 46 mg/dL (<100); Potassium 4.3 mmol/L (3.3-5.1); Sodium 144 mmol/L (135-145); Total Protein 6.8 g/dL (6.5-8.0); Triglycerides 166 mg/dL (<150)
[2023-03-25 08:52] LABS: TSH reflex Free T4 2.42 uIU/mL (0.32-4.0); Vitamin D 25-OH Total 36.4 ng/mL (>30)
[2023-03-25 09:14] LABS: Appearance Urine Clear; Color Urine Yellow; Glucose Urine UA Negative (Negative); Leukocyte Esterase Urine Negative (Negative); Nitrite Urine Negative (Negative); PH 6.5 (5.0-9.0); Urine Blood Negative (Negative); Urine Ketones Negative (Negative); Urine Protein Negative (Neg-Trace)
== END 2023-03-25 07:27 | disposition home or self-care (01) ==
LOC: HO.LAB 07:26
PROVIDERS: PCP Internal Medicine; Visit Provider Internal Medicine
DX: I10 Essential (primary) hypertension (principal); E78.00 Pure hypercholesterolemia, unspecified; R30.0 Dysuria; E55.9 Vitamin D deficiency, unspecified
CPT/HCPCS: 36415; 80053; 80061; 81003; 82306; 84443; 85025

== ENCOUNTER 2023-04-08 09:49 | Outpatient (AMB) | payer OTHER, MEDICAID, SELFPAY ==
[2023-04-08 09:53] VITALS: BP 172/100; PULSE 78; O2SAT 95; BMI 38.2
--- NOTE | 2023-04-08 09:53 | A.OFFPC_ITS ---
Vital Signs 04/08/23 09:53 Height 4 ft 11 in Weight 189 lb 6 oz BMI 38.2 BP 172/100 H Blood Pressure Location Lt brachial Position Sitting Pulse 78 Pulse Source Pulse Oximeter Pulse Oximetry (%) 95 Oxygen Delivery Method Room Air Intake Visit Reasons: hyperlipidemia, asthma, lumbar DDD, OA Head Cager Required: No Accompanied by: Self / Same As Patient Allergies Penicillins [PENICILLINS] Allergy (Intermediate, Verified 04/08/23 10:56) RASH Medication List - Last Reconciled 04/08/23 by Curt Falk MD acetaminophen 650 mg (2 x 325 mg) PO Q6H PRN 30 days [ADULT PULL-UPS As directed] albuterol sulfate 90 mcg/actuation 2 puffs PO Q6H PRN aspirin 81 mg PO DAILY atorvastatin 10 mg PO BEDTIME 90 days blood pressure kit-extra large As directed calcium carbonate (Oyster Shell Calcium) 500 mg PO DAILY 90 days cane Cane dupilumab (Dupixent) 300 mg subcut Q2W escitalopram oxalate 20 mg PO DAILY ezetimibe 10 mg PO DAILY fluticasone furoate-vilanterol 200-25 mcg/dose (Breo Ellipta) 1 ea inhalation DAILY ibuprofen 600 mg PO Q8H PRN montelukast 10 mg PO DAILY naloxone 4 mg/actuation (Narcan) 4 mg intranasal Q3M PRN omeprazole 40 mg PO DAILY 90 days oxycodone 5 mg PO DAILY PRN 30 days prazosin 1 mg PO BEDTIME quetiapine 50 mg PO BEDTIME tizanidine 2 mg PO BID PRN trazodone 200 mg PO BEDTIME PRN triamcinolone acetonide 0.1% grams topical Tobacco use date assessed: 04/08/23 Fall risk assessment: 2 + Falls in past year Last assessed Fall Risk: 04/08/23 Dental Screening Dental Screen Date: 04/08/23 Did you have a dental visit in the last 12 months?: No Did you have a dental problem in the last 6 months where you did not have access to dental care?: No Was dental information given to patient?: No HPI hyperlipidemia, asthma, lumbar DDD, OA HPI Details Patient comes in today for her follow up visit States that she feels okay Continues to follow up with pain management for her chronic low back pain and joint pains and states that she is doing well and her chronic pains are adequately controlled on her current regimen Would like to request for a referral to rheumatology to see if they can help her figure out her condition - states that she has diffuse pain all over in addition to her joint pains States that her daughter goes to rheumatology here and recommended her to go see them as well She denies any headaches or dizziness Denies any chest pains, no SOB No nausea/vomiting, no abdominal pain No change in bowel habits noted She continues to experience increased urinary frequency and nocturia - states that she was up several times all night long going to the bathroom and she hardly got any sleep and this is probably why her blood pressure is very high right now Recalls that she was referred to urology last year but for unclear reasons, she was never scheduled for an appointment States that she requested for referral to the [facility] but was apparently referred to the urology group on [address] instead Had her follow up labs done a couple of weeks ago - to discuss her results [facility] Medical History Osteoarthritis of right knee Lumbar spondylosis Foot pain, bilateral BRIDGETTE (obstructive sleep apnea) Asthma Dyspnea KAMILA positive Urticaria Obesity (BMI 30-39.9) Depression Anxiety Insomnia Vitamin D deficiency Chronic interstitial cystitis Irritable bowel syndrome (IBS) Arthralgia Osteoarthritis Esophageal stricture GERD (gastroesophageal reflux disease) Left lumbar radiculopathy CAD (coronary artery disease) Pure hypercholesterolemia Benign essential hypertension Surgical History History of surgery History of total right knee replacement (09/22/21) Hx of cystoscopy Status post balloon dilatation of esophageal stricture (~2005) History of cardiac catheterization History of colonoscopy History of nephrolithotomy with removal of calculi History of tooth extraction Family History Father Hypertension Mother Hypertension Diabetes CVD (cardiovascular disease) Daughter No problems noted. Family/Other FH: mental illness Other Mental health problem Substance abuse Social History Housing: Apartment Are you a primary patient care technician instructor to a significant other at home: No Do you presently have visiting nurse or other home services: No Alcohol intake: never Comment: medicated, see MAR Patient Tobacco Use Status: Never used Tobacco e-Cigarette/Vaping Use: Never Used Second Hand Smoke Exposure: No service: No Current occupational status: disabled Cognitive needs: No Hearing needs: No Vision needs: Yes Questionnaire PHQ-9 Over the last 2 weeks, how often have you been bothered by any of the following problems? 1. Little interest or pleasure in doing things: not at all 2. Feeling down, depressed, or hopeless: not at all 3. Trouble falling or staying asleep, or sleeping too much: not at all 4. Feeling tired or having little energy: not at all 5. Poor appetite or overeating: not at all 6. Feeling bad about yourself - or that you are a failure or have let yourself or your family down: not at all 7. Trouble concentrating on things, such as reading the newspaper or watching television: not at all 8. Moving or speaking so slowly that other people could have noticed. Or the opposite - being so fidgety or restless that you have been moving around a lot more than usual: not at all 9. Thoughts that you would be better off or of hurting yourself in some way: not at all Total score: 0 Depression Screening Interpretation: Negative (Rx is helping with her depression) Depression Screening Done: Yes 39097 - PHQ-9 Billing: Yes Source: Developed by Drs. Jorge Diallo, Yumiko Irvin, Celestino Banda and colleagues, with an educational mari from [employer]. Thrive Questionnaire Date Thrive assessed: 04/08/23 I am a: Patient What is your living situation today?: I have a steady place to live Within the past 12 months, did the food you bought not last and you didn't have the money to get more?: Never true Within the past 12 months, did you worry whether your food would run out before you got money to buy more?: Never true Do you have trouble paying for medicines?: No Do you have trouble getting transportation to medical appointments?: No Do you have trouble paying your heating and electricity bill?: No Do you have trouble taking care of your child, family member or friend?: No Do you have trouble with day-to-day activities such as bathing, preparing meals, shopping, managing finances, etc.?: No Are you currently unemployed and looking for a job?: No Are you interested in more education?: No Please select the resources that you would like help with: None Currently or been in a relationship where the following occur: no concerns reported AUDIT C Alcohol Use Questionnaire (AUDIT-C) 1. How often do you have a drink containing alcohol?: Never 2. How many drinks containing alcohol do you have on a typical day when you are drinking?: 1 or 2 3. How often do you have six or more drinks on one occasion?: Never Total Score: 0 Score Reviewed/Action Taken: Yes ADRIANA-7 AMB Questionnaire ADRIANA-7 Date ADRIANA - 7 assessed: 04/08/23 Feeling nervous, anxious, or on edge: 0 = Not at all Not being able to stop or control worryin = Not at all Worrying too much about different things: 0 = Not at all Trouble relaxin = Not at all Being so restless that it is hard to sit still: 0 = Not at all Becoming easily annoyed or irritable: 0 = Not at all Feeling afraid as if something awful might happen: 0 = Not at all Total ADRIANA-7 score (0-4 normal; 5-9 mild; 10-14 moderate; 15-21 severe): 0 Source: Developed by Drs. Jorge Diallo, Yumiko Irvin, Celestino Banda and colleagues, with an educational mari from [employer]. Review of Systems Const Reports difficulty sleeping (due to frequent trips to the bathroom), Denies fatigue, Denies fever(s) and Denies headache(s) ENT Denies dysphagia, Denies dizziness, Denies otalgia, Denies headache(s), Denies odynophagia and Denies sore throat Card Denies chest pain, Denies palpitations and Denies dyspnea Resp Denies cough, Denies dyspnea and Denies wheezing GI Denies abdominal pain, Denies constipation, Denies dysphagia, Denies heartburn, Denies diarrhea, Denies nausea, Denies odynophagia and Denies vomiting Denies difficulty voiding, Reports nocturia, Reports dysuria (on and off - has chronic IC) and Reports urinary urgency (at times) Musc Reports back pain (over the right lower back), Reports myalgias (diffuse), Reports arthralgias (involving multiple joints - right knee and hip and right shoulder), Reports radiating pain into limb (into the right thigh and leg; right shoulder pain going into neck/arm) and Reports stiffness Skin/Breast Denies rash Neuro Denies dizziness and Denies headache(s) Psych Denies anxiety Endo Denies fatigue and Denies palpitations Stanton/Lymph Details: swelling of both hands and feet lately Aller/Immun Denies wheezing Physical exam (Primary Care) Vital Signs: Last Vital Signs Pulse 78 04/08/23 09:53 BP 172/100 H 04/08/23 09:53 Pulse Ox 95 04/08/23 09:53 Oxygen Delivery Method Room Air 04/08/23 09:53 BMI result Body Mass Index 38.2 Tobacco/Smoking Status: Tobacco use Status Tobacco use date assessed 04/08/23 04/08/23 09:55 Patient Tobacco Use Status Never used Tobacco 04/08/23 09:55 Tobacco use type 05/04/22 10:14 e-Cigarette/Vaping Use Never Used 04/08/23 09:55 PHQ-9: PHQ-9 Score PHQ-9: Total score 0 04/08/23 10:10 Depression Screening Interpretation: Negative (Rx is helping with her depression) Thrive Assessment: Date of Thrive Assessment Date Thrive assessed 04/08/23 04/08/23 09:55 Currently or been in a relationship where the following occur: no concerns reported Const General: no acute distress and alert HENMT Ears: TM's normal bilaterally and EAC's normal Throat: Yes posterior oropharynx normal and Yes tonsils normal (no TP congestion noted) Neck Neck: Yes no lymphadenopathy and Yes supple Resp Auscultation: clear to auscultation bilaterally, no rales and no wheezes Cardio Rate: regular rate Rhythm: regular rhythm Heart sounds: no murmurs GI Palpation (GI): Soft to palpation and nontender Auscultation: normal bowel sounds Back/Spine/Pelvis Thoracic/Lumbar Spine: paraspinal muscle tenderness on the right, lumbar spinal tenderness (chronic) and straight leg raise positive (slightly ) Skin Rashes: no rashes Extrem General: No clubbing, No cyanosis and Yes edema (trace pedal edema bilaterally) Right upper extremity: shoulder/upper arm Details: tenderness Location: of the A-C joint and abnormal ROM (ROM limited due to pain - unable to raise right arm above shoulder level) Right lower extremity: knee Details: tenderness; no swelling Left lower extremity: knee Details: tenderness; no swelling Results Reviewed Results Reviewed: Laboratory Tests 08/25/21 08/25/21 09/04/21 11:39 11:39 13:55 WBC 7.1 Hgb 12.2 Hct 38.7 Plt Count 244 Sodium 143 Potassium 4.5 Creatinine 0.83 Estimated GFR > 60 Random Glucose 85 Fasting Glucose Hgb A1c (Clinic) 5.3 Calcium 10.4 H AST ALT Triglycerides Cholesterol LDL Cholesterol, Calc HDL Cholesterol 25-OH Vitamin D Total TSH Urine pH Ur Specific [place] Urine Protein Urine Glucose (UA) Urine Blood 08/09/22 03/25/23 08:25 07:34 WBC 6.4 Hgb 11.5 L Hct 35.8 L Plt Count 191 Sodium 144 144 Potassium 4.1 4.3 Creatinine 0.83 0.83 Estimated GFR > 60 > 60 Random Glucose Fasting Glucose 95 95 Hgb A1c (Clinic) Calcium 9.4 9.5 AST 14 15 ALT 9 9 Triglycerides 178 166 H Cholesterol 219 119 LDL Cholesterol, Calc 139 46 HDL Cholesterol 45 40 L 25-OH Vitamin D Total 36.4 TSH 2.42 Urine pH 6.5 Ur Specific [place] 1.020 Urine Protein Negative Urine Glucose (UA) Negative Urine Blood Negative Assessment and Plan Assessment & Plan (1) Spondylosis of lumbosacral spine with radiculopathy: Code(s): M47.27 - Other spondylosis with radiculopathy, lumbosacral region Plan: MRI of the lumbar spine done in February 2022 revealed that at L4-L5, there is markedly severe left and severe right facet arthropathy with a posterior disc protrusion and narrowing of the subarticular recesses as well as bilateral fora beth disc protrusions with impingement on the exiting L4 nerve roots. There is no significant central stenosis. At L5-S1 there is markedly severe facet arthropathy with a shallow posterior disc protrusion without central stenosis. There are left greater than right foraminal disc protrusions with impingement on the exiting left L5 nerve root. Lastly, at L3-L4 there is moderate facet arthropathy with a small posterior disc protrusion/extrusion without central stenosis. There are foraminal disc protrusions with impingement on the exiting right L3 nerve root. S/P bilateral lumbar RFA with sedation and fluoroscopy?on 05/26/22 and 06/09/22, and right L4-L5 TFESI?with local and fluoroscopy in 06/2022 - patient reports (+) significant improvement of her joint symptoms since Reinforced activity and weight-lifting restrictions Continue?Flexeril?10 mg 3 times a day as needed, Butrans 20 mcg patch once a week and Percocet 5-325 mg QD PRN for breakthrough pain Follow up with [facility] as scheduled - feels that she is doing well with her current pain management regimen (2) Right hip pain: Code(s): M25.551 - Pain in right hip Plan: X-rays of the right hip done on 02/17/2022 revealed (+) moderate right hip OA Follow up with orthopedics as scheduled (3) Bilateral primary osteoarthritis of knee: Code(s): M17.0 - Bilateral primary osteoarthritis of knee Plan: S/P total right knee arthroplasty by Dr. Deras on 09/22/2021, with significant improvement of her knee symptoms since Follow up with orthopedics as scheduled (4) Polyarthralgia: Code(s): M25.50 - Pain in unspecified joint Plan: Patient has been tested previously for inflammatory joint disease, including RA and SLE - tests have all come back negative Has also been checked for Lyme disease, which came back negative She is requesting for a referral to go see rheumatology here at [facility] - referral done (5) Pure hypercholesterolemia: Code(s): E78.00 - Pure hypercholesterolemia, unspecified Plan: Results of her labs done a couple of weeks ago reviewed and discussed with patient Reinforced low cholesterol diet Continue Ezetimibe 10 mg QD and Atorvastatin 10 mg QD - appears to be tolerating Rx so far (could not tolerate Rosuvastatin in the past due to myalgia) Will have her recheck her labs and fasting lipids in 3 months for follow-up (6) Benign essential hypertension: Code(s): I10 - Essential (primary) hypertension Plan: Reinforced low sodium diet - goal is systolic BP of at least 130 to 140 mm or less Her blood pressure is very high today - states that she hardly got any sleep last night due to her frequent trips to the bathroom Patient is reminded to continue monitoring her blood pressure regularly (7) Asthma: Code(s): J45.909 - Unspecified asthma, uncomplicated Qualifiers: Asthma severity: moderate Asthma persistence: persistent Asthma complication type: uncomplicated Qualified Code(s): J45.40 - Moderate persistent asthma, uncomplicated Plan: Stable Continue Dupixent 200 mg SQ every 2 weeks, Breo Ellipta 200-25 mcg 1 inhalation QD, Montelukast 10 mg QD and Albuterol HFA 2 inhalations every 6 hours as needed Follow-up with pulmonary as scheduled (8) Impaired fasting glucose: Code(s): R73.01 - Impaired fasting glucose Plan: In-office HgbA1c was normal at 5.7% when checked previously Reinforced low carb/low calorie diet (9) GERD (gastroesophageal reflux disease): Code(s): K21.9 - Gastro-esophageal reflux disease without esophagitis Qualifiers: Esophagitis presence: without esophagitis Qualified Code(s): K21.9 - Gastro-esophageal reflux disease without esophagitis Plan: Dietary restrictions reinforced Continue Omeprazole 40 mg QD (10) Esophageal stricture: Code(s): K22.2 - Esophageal obstruction Plan: S/P balloon dilatation by Dr. Nunez in 2005 -? states that she currently has no trouble swallowing Follow-up with Dr. Nunez as scheduled (11) Irritable bowel syndrome (IBS): Code(s): K58.9 - Irritable bowel syndrome without diarrhea Qualifiers: Irritable bowel syndrome type: unspecified Qualified Code(s): K58.9 - Irritable bowel syndrome without diarrhea Plan: Continue Dicyclomine 20 mg QID PRN Follow-up with GI as scheduled (12) Vitamin D deficiency: Code(s): E55.9 - Vitamin D deficiency, unspecified Plan: Continue Vitamin D2 94744 units weekly (13) Chronic interstitial cystitis: Comment: S/P hydrodistention on 07/07/20 Code(s): N30.10 - Interstitial cystitis (chronic) without hematuria Plan: Continue Phenazopyridine 200 mg every 6 hours as needed Has been seeing Dr. Lopez for urology follow up and management over the past few years and is now requesting referral to see another urologist for a second opinion Was referred to [facility] for further evaluation and management / second opinion last year but for unclear reasons, she was never seen Per her request, will refer her now instead to the [facility] for further evaluation and management (14) Nephrolithiasis: Code(s): N20.0 - Calculus of kidney Plan: Follow up renal US done back in July 2021 revealed (+) bilateral nonobstructive echogenic renal calculi, with no caliectasis or hydronephrosis seen Follow up with urology as scheduled (15) Insomnia: Code(s): G47.00 - Insomnia, unspecified Qualifiers: Insomnia type: unspecified Qualified Code(s): G47.00 - Insomnia, unspecified Plan: Sleep hygiene reinforced States that her Quetiapine helps with her sleep at night (16) Anxiety: Code(s): F41.9 - Anxiety disorder, unspecified Plan: Continue Clonazepam 1 mg 3 times a day as needed and Bupropion ER 200 mg QD in AM (17) Depression: Code(s): F32.9 - Major depressive disorder, single episode, unspecified Qualifiers: Depression Type: major depressive disorder Major depression recurrence: recurrent Active/Remission status: currently active Major depression episode severity: unspecified Qualified Code(s): F33.9 - Major depressive disorder, recurrent, unspecified Plan: Continue Quetiapine 200 mg QHS; is also on Bupropion ER 200 mg QD Follow-up with Psychiatry as scheduled (18) Obesity (BMI 30-39.9): Code(s): E66.9 - Obesity, unspecified Plan: Reinforced diet; exercise and weight loss may be unrealistic and limited due to her physical issues but she is advised to try to stay as active as she can Plan Follow up in 3 months Orders: Orders TSH reflex Free T4 3 Months E78.00 - Pure hypercholesterolemia, unspecified Hemoglobin A1c 3 Months R73.01 - Impaired fasting glucose Complete Blood Count Auto Diff 3 Months I10 - Essential (primary) hypertension Comprehensive [place]. Panel Fast 3 Months E78.00 - Pure hypercholesterolemia, unspecified Lipid Panel 3 Months E78.00 - Pure hypercholesterolemia, unspecified UA CC w/rflx Micro + Cult 3 Months R30.0 - Dysuria Vitamin D 25-OH Total 3 Months E55.9 - Vitamin D deficiency, unspecified Erythrocyte Sedimentation Rate 3 Months M79.7 - Fibromyalgia C Reactive Protein 3 Months M25.50 - Pain in unspecified joint Referrals Urology Referral N20.0 - Calculus of kidney, N30.10 - Interstitial cystitis (chronic) without hematuria Rheumatology Referral M25.50 - Pain in unspecified joint Coding Level of Care Code Est Pt Level 4 (68138) Diagnoses Spondylosis of lumbosacral spine with radiculopathy M47.27 Right hip pain M25.551 Bilateral primary osteoarthritis of knee M17.0 Polyarthralgia M25.50 Pure hypercholesterolemia E78.00 Benign essential hypertension I10 Moderate persistent asthma without complication J45.40 Asthma severity: moderate Asthma persistence: persistent Asthma complication type: uncomplicated Impaired fasting glucose R73.01 Gastroesophageal reflux disease without esophagitis K21.9 Esophagitis presence: without esophagitis Esophageal stricture K22.2 Irritable bowel syndrome, unspecified type K58.9 Irritable bowel syndrome type: unspecified Vitamin D deficiency E55.9 Chronic interstitial cystitis N30.10 Nephrolithiasis N20.0 Insomnia, unspecified type G47.00 Insomnia type: unspecified Anxiety F41.9 Episode of recurrent major depressive disorder, unspecified depression episode severity F33.9 Depression Type: major depressive disorder Major depression recurrence: recurrent Active/Remission status: currently active Major depression episode severity: unspecified Obesity (BMI 30-39.9) E66.9
== END 2023-04-08 11:07 | disposition home or self-care (01) ==
PROVIDERS: PCP Internal Medicine; Visit Provider Internal Medicine
DX: M47.27 Other spondylosis with radiculopathy, lumbosacral region (principal); F33.9 Major depressive disorder, recurrent, unspecified; M25.551 Pain in right hip; M17.0 Bilateral primary osteoarthritis of knee; M25.50 Pain in unspecified joint; E78.00 Pure hypercholesterolemia, unspecified; I10 Essential (primary) hypertension; J45.40 Moderate persistent asthma, uncomplicated; R73.01 Impaired fasting glucose; K21.9 Gastro-esophageal reflux disease without esophagitis; K22.2 Esophageal obstruction; K58.9 Irritable bowel syndrome, unspecified
CPT/HCPCS: 99214

== ENCOUNTER → 2023-04-14 09:51 | Outpatient (BNVA) | payer OTHER, MEDICAID, SELFPAY | PROVIDERS: PCP Internal Medicine; Visit Provider Nurse Practitioner Family ==

== ENCOUNTER 2023-05-12 11:35 | Outpatient (AMB) | payer OTHER, MEDICAID, SELFPAY ==
--- NOTE | 2023-05-12 11:36 | MHC.OFFVIS ---
Intake Vital Signs 05/12/23 11:45 Height 4 ft 11 in BP 113/63 Blood Pressure Location Lt brachial Position Sitting Pulse 82 Pulse Source Pulse Oximeter Pulse Oximetry (%) 97 Oxygen Delivery Method Room Air Intake Visit Reasons: PILL COUNT/lvm Intake Note: Celia comes in today for a film count to belbuca, and a pill count to oxycodone. Patient should have 16 films and presents with 18 films which she last took today 05/12/23 at 7am, oxycodone should have 0 and presents with 9 which she last took yesterday 05/11/23 at 9am. Pain today 5/10. Patient also resigned updated opioid contract in office today, signed copy was provided to patient. Human Resources Department Supervisor Required: No Accompanied by: Self / Same As Patient Allergies Penicillins [PENICILLINS] Allergy (Intermediate, Verified 04/14/23 10:06) RASH HPI HPI Comments History of Present Illness Details Patient presents today for a pill and film count. For Belbuca, #16 films were expected, and #18 films were presented. For oxycodone, #0 pills were expected, and #9 pills were presented. This demonstrates a responsible attitude in regards to the medication regimen. Patient reports adequate analgesia for her back and knee pain with Belbuca bid and oxycodone prn. Denies any recent cough, cold, infection, fever, dizziness, shortness of breaths, constipation, nausea, sedation, foot drop, urinary retention, bladder or bowel incontinence or saddle anesthesia. Past Procedures: 11/05/22: Right femoral nerve block- no right knee pain for 5 hours 07/07/22: Left L3-L4-L5 MB RFA-80% ongoing pain relief 06/16/22: Right L4-L5 TFESI-80% ongoing pain relief 05/26/22: Right L3-L4-L5 MB RFA- 80% pain relief 04/21/22: Right intra-articular hip steroid injection -ongoing 50% pain relief . 08/19/21: Bilateral L3-L4-L5 Diagnostic MBBs ? 80% pain relief for 8 hours 06/17/21: Bilateral Diagnostic L3-L4-L5 MBBs ? 75% relief for 1 day [facility] Medical History Osteoarthritis of right knee Lumbar spondylosis Foot pain, bilateral BRIDGETTE (obstructive sleep apnea) Asthma Dyspnea KAMILA positive Urticaria Obesity (BMI 30-39.9) Depression Anxiety Insomnia Vitamin D deficiency Chronic interstitial cystitis Irritable bowel syndrome (IBS) Arthralgia Osteoarthritis Esophageal stricture GERD (gastroesophageal reflux disease) Left lumbar radiculopathy CAD (coronary artery disease) Pure hypercholesterolemia Benign essential hypertension Surgical History History of surgery History of total right knee replacement (09/22/21) Hx of cystoscopy Status post balloon dilatation of esophageal stricture (~2005) History of cardiac catheterization History of colonoscopy History of nephrolithotomy with removal of calculi History of tooth extraction Family History Father Hypertension Mother Hypertension Diabetes CVD (cardiovascular disease) Daughter No problems noted. Family/Other FH: mental illness Other Mental health problem Substance abuse Social History Housing: Apartment Are you a primary child care center administrator to a significant other at home: No Do you presently have visiting nurse or other home services: No Alcohol intake: never Comment: medicated, see MAR Patient Tobacco Use Status: Never used Tobacco e-Cigarette/Vaping Use: Never Used Second Hand Smoke Exposure: No service: No Current occupational status: disabled Cognitive needs: No Hearing needs: No Vision needs: Yes Review of Systems Const All systems reviewed & are unremarkable except as noted in HPI and below Physical Exam General: Appears afebrile. Alert and oriented. Mood and affect appropriate. Follows and participates in conversation appropriately. Respiratory effort is unlabored. Able to transition from sit to stand unassisted. Back/Spine/Pelvis Cervical Spine: cervical ROM normal and No Cervical spine tenderness Thoracic/Lumbar Spine: pain with thoraco-lumbar ROM, paraspinal muscle tenderness, thoraco-lumbar ROM limited, No thoracic spinal tenderness and lumbar spinal tenderness Extrem General: Yes capillary refill normal, Yes no clubbing, cyanosis or edema and Yes no calf tenderness Psych Appearance: grossly normal and well kempt Mental Status: mental status grossly normal Speech and movement: Normal speech and movement present and Clear speech present Affect: normal affect Attitude: cooperative Thought process: Normal thought process present Thought content: Normal thought content present, suicidality (none), no hallucinations and No Depressive thoughts present Insight: Good insight present (Psych) Judgement: Good judgement present (Psych) Results Reviewed Results Reviewed: MR LUMBAR SPINE WITHOUT CONTRAST 03/05/22 FINDINGS: VERTEBRAL BODIES AND PARASPINAL STRUCTURES: There are mild grade 1 anterolistheses of L4 on L5 and L5 on S1. There is multilevel narrowing of intervertebral disc height with loss of signal throughout the lumbar spine. There are multilevel anterior and right-sided marginal osteophytes. Vertebral body heights are maintained and no fractures are demonstrated. There is an area of increased T1 and T2 signal in the body of L2 consistent with a hemangioma. Overall, marrow signal is homogenous. There are small bilateral renal cysts. The visualized pelvic structures are unremarkable. CONUS MEDULLARIS AND CAUDA EQUINA: Normal, terminating at the level of L1. The lower thoracic spinal cord appears normal. The cauda equina nerve roots and filum terminale appear normal. SPINAL LEVELS: T12-L1: There is mild bilateral facet arthropathy. Posterior disc contour is normal. There is no central stenosis or foraminal narrowing. L1-L2: There is mild bilateral facet arthropathy. Posterior disc contour is normal. There is no central stenosis or foraminal narrowing. L2-L3: There is mild bilateral facet arthropathy. There are small right-sided disc protrusion with minimal distortion of the ventral thecal sac but there is no central stenosis. The neural foramina are patent bilaterally. L3-L4: There is moderate bilateral facet arthropathy. There is a broad-based posterior disc protrusion with a small extruded component extending behind the body of L3 centrally and toward the right. There is minimal distortion of the ventral thecal sac. There is no central stenosis. There are foraminal disc protrusions with mild impingement on the exiting right L3 nerve root. L4-L5: There is markedly severe left and severe right facet arthropathy. There is a broad-based posterior disc protrusion with an annular fissure which flattens the ventral thecal sac and narrows the subarticular recesses. There are bilateral foraminal disc protrusions with impingement on the exiting L4 nerve roots. There is no significant central stenosis. L5-S1: There is markedly severe bilateral facet arthropathy. There is a shallow posterior disc protrusion with mild distortion of the ventral thecal sac but there is no central stenosis. There are left greater than right foraminal disc protrusions with impingement on the exiting left L5 nerve root. IMPRESSION: 1. At L4-L5 there is markedly severe left and severe right facet arthropathy. There is a posterior disc protrusion and there is narrowing of the subarticular recesses. There are bilateral foraminal disc protrusions with impingement on the exiting L4 nerve roots. There is no significant central stenosis. 2. At L5-S1 there is markedly severe facet arthropathy. There is a shallow posterior disc protrusion without central stenosis. There are left greater than right foraminal disc protrusions with impingement on the exiting left L5 nerve root. 3. At L3-L4 there is moderate facet arthropathy. There is a small posterior disc protrusion/extrusion without central stenosis. There are foraminal disc protrusions with impingement on the exiting right L3 nerve root. XR HIP, RIGHT 02/17/22 FINDINGS: Bone alignment is normal. No fracture or dislocation. Moderate right hip arthritis with joint space narrowing and osteophyte formation. Normal soft tissues. IMPRESSION: Moderate right hip arthritis. XR LUMBOSACRAL SPINE 02/01/22 FINDINGS: Lumbar spine alignment is normal. There is mild loss of disc space and endplate remodeling at multiple levels which is most apparent at T12-L1, overall similar to the prior study. There is osteophyte formation at multiple levels including relatively bulky osteophytes along the right side of the upper lumbar spine and there is multilevel facet arthropathy. There is atherosclerotic calcification of the abdominal aorta best visualized on lateral radiographs. Soft tissues are unremarkable. IMPRESSION: Mild multilevel degenerative changes of the lumbar spine overall similar to the prior study. Assessment & Plan Assessment & Plan (1) Chronic pain syndrome: Code(s): G89.4 - Chronic pain syndrome (2) Opioid contract exists: Code(s): Z79.891 - long term care pharmacist (current) use of opiate analgesic (3) Lumbar spondylosis: Code(s): M47.816 - Spondylosis without myelopathy or radiculopathy, lumbar region (4) Bilateral primary osteoarthritis of knee: Code(s): M17.0 - Bilateral primary osteoarthritis of knee (5) Right knee pain: Code(s): M25.561 - Pain in right knee Plan Patient has shown accountability for her medication regimen and the pill/patch count was accurate. There is no evidence of misuse, abuse or diversion at this time. Victrixt reviewed and consistent. Script for oxycodone-acetaminophen 5-325 mg daily prn will be held at this time, patient will notify our office when she gets down to 3 tabs. Script for Belbuca to 450 mcg BID will be sent with advanced date of 05/20/23. All questions and concerns have been answered and patient agreed with the plan. Follow up for pill count in 4-5 weeks and sooner if needed. Medications: Changed From buprenorphine HCl (Belbuca) 450 mcg buccal BID G89.4 - Chronic pain syndrome, M17.0 - Bilateral primary osteoarthritis of knee, M25.561 - Pain in right knee, M47.816 - Spondylosis without myelopathy or radiculopathy, lumbar region, Z79.891 - long term care pharmacist (current) use of opiate analgesic To buprenorphine HCl (Belbuca) Partial Fill upon patient request. 450 mcg buccal BID 30 days 60 ea 0RF pain G89.4 - Chronic pain syndrome, M17.0 - Bilateral primary osteoarthritis of knee, M25.561 - Pain in right knee, M47.816 - Spondylosis without myelopathy or radiculopathy, lumbar region, Z79.891 - long term care pharmacist (current) use of opiate analgesic Coding Level of Care Code Est Pt Level 4 (91392) Diagnoses Chronic pain syndrome G89.4 Opioid contract exists Z79.891 Lumbar spondylosis M47.816 Bilateral primary osteoarthritis of knee M17.0 Right knee pain M25.561
[2023-05-12 11:45] VITALS: BP 113/63; PULSE 82; O2SAT 97
== END 2023-05-12 11:45 | disposition home or self-care (01) ==
PROVIDERS: PCP Internal Medicine; Visit Provider Nurse Practitioner Family
DX: G89.4 Chronic pain syndrome (principal); Z79.891 Long term (current) use of opiate analgesic; M47.816 Spondylosis without myelopathy or radiculopathy, lumbar region; M17.0 Bilateral primary osteoarthritis of knee; M25.561 Pain in right knee
CPT/HCPCS: 99214

== ENCOUNTER → 2023-05-12 11:35 | Outpatient (BNVA) | payer OTHER, MEDICAID, SELFPAY | PROVIDERS: PCP Internal Medicine; Visit Provider Nurse Practitioner Family | DX: Z51.81 Encounter for therapeutic drug level monitoring (principal); M47.816 Spondylosis without myelopathy or radiculopathy, lumbar region; M17.0 Bilateral primary osteoarthritis of knee; M25.561 Pain in right knee; G89.4 Chronic pain syndrome; Z79.891 Long term (current) use of opiate analgesic | CPT/HCPCS: 99212 ==

== ENCOUNTER 2023-05-27 13:29 | Outpatient (REF) | payer OTHER, SELFPAY ==
[2023-05-27 16:11] LABS: Erythrocyte Sedimentation Rate 21 MM/HR (0-20)
[2023-05-27 16:17] LABS: C Reactive Protein 0.26 mg/dL (< or = 0.50)
[2023-06-02 06:23] LABS: Aldolase 3.6 U/L (<=8.1)
== END 2023-05-27 13:30 | disposition home or self-care (01) ==
LOC: HO.LAB 13:29
PROVIDERS: PCP Internal Medicine; Visit Provider Nurse Practitioner Family
DX: M79.18 Myalgia, other site (principal)
CPT/HCPCS: 36415; 82085; 82550; 85652; 86140; 99212

== ENCOUNTER 2023-05-27 13:29 | Outpatient (AMB) | payer OTHER, SELFPAY ==
--- NOTE | 2023-05-27 13:33 | A.OFFVIS_ITS ---
Intake Vital Signs 05/27/23 13:34 Height 4 ft 11 in Weight 189 lb 9.561 oz BMI 38.3 BP 132/64 Blood Pressure Location Rt brachial Position Sitting Pulse 82 Pulse Source Pulse Oximeter Temp 96.7 F L Temp Source Skin Pulse Oximetry (%) 94 Oxygen Delivery Method Room Air Intake Visit Reasons: Joint Pain Intake Note: Patient last seen 07/28/[address] Hall, referred back to us for joint pain. Reports pain everywhere; pain scale today 5, at times 10. Vice President Of Customer Service Required: No Accompanied by: Self / Same As Patient Allergies Penicillins [PENICILLINS] Allergy (Intermediate, Verified 05/27/23 13:36) RASH HPI HPI Comments History of Present Illness Details Ms. Yang. 68 yoF, last here July 2021, returns with complaints of pain and numbness in her hands and some pain in the feet. She was previously evaluated for the same concerns and low titer positive KAMILA. Subsequent KAMILA testing however was negative. She does carry a diagnosis of chronic urticaria for which she was on prednisone for a year or so. Eventually she was able to be weaned off the prednisone with the help of dupilumab injections. She notes the hands are more numb at night and also with doing activities such as talking on the phone or doing housework. There is also some pain that occurs across the fingers associated with numbness. She gets pain in the feet mostly across the MTP regions with more standing on the feet. She has known osteoarthritis of the knees and had a right total knee replacement in September 2021. She sees pain management and manages her pains with Oxycodone 5mg QD PRN, Acetaminophen 650 Q8, Ibuprofen 600mg Q6, Tizanidine 2mg BID PRN. She complains that this regimen is not effective and that the oxycodone was reduced to one pill per day and is not enough. [facility] Medical History (Updated 05/27/23 @ 14:31 by CARMELITA Kirby) Myalgia, upper arm Osteoarthritis of right knee Lumbar spondylosis Foot pain, bilateral BRIDGETTE (obstructive sleep apnea) Asthma Dyspnea KAMILA positive Urticaria Obesity (BMI 30-39.9) Depression Anxiety Insomnia Vitamin D deficiency Chronic interstitial cystitis Irritable bowel syndrome (IBS) Arthralgia Osteoarthritis Esophageal stricture GERD (gastroesophageal reflux disease) Left lumbar radiculopathy CAD (coronary artery disease) Pure hypercholesterolemia Benign essential hypertension Surgical History History of surgery History of total right knee replacement (09/22/21) Hx of cystoscopy Status post balloon dilatation of esophageal stricture (~2005) History of cardiac catheterization History of colonoscopy History of nephrolithotomy with removal of calculi History of tooth extraction Family History Father Hypertension Mother Hypertension Diabetes CVD (cardiovascular disease) Daughter No problems noted. Family/Other FH: mental illness Other Mental health problem Substance abuse Social History Housing: Apartment Are you a primary primary care provider to a significant other at home: No Do you presently have visiting nurse or other home services: No Alcohol intake: never Comment: medicated, see MAR Patient Tobacco Use Status: Never used Tobacco e-Cigarette/Vaping Use: Never Used Second Hand Smoke Exposure: No service: No Current occupational status: disabled Cognitive needs: No Hearing needs: No Vision needs: Yes Review of Systems Const All systems reviewed & are unremarkable except as noted in HPI and below Physical Exam Vital Signs: Last Vital Signs Temp 96.7 F L 05/27/23 13:34 Pulse 82 05/27/23 13:34 BP 132/64 05/27/23 13:34 Pulse Ox 94 05/27/23 13:34 Oxygen Delivery Method Room Air 05/27/23 13:34 BMI result Body Mass Index 38.3 APPEARANCE: Patient in no acute distress EYES no redness, eyelids normal EXTREMITIES: No edema, no calf tenderness, normal peripheral pulses. NEURO: Oriented and alert x3. No focal weakness. Reflexes symmetric. Gait normal. SKIN: No inflammatory or neoplastic lesions. Normal color and turgor JOINT EXAM:.?? Cervical Spine:.? Full range of motion without pain; no tenderness. Thoracic Spine:.? No scoliosis.? No tenderness on palpation. Lumbar Spine:.? Alignment normal.? Full range of motion without pain, no tenderness. Chest Wall:.? No tenderness, swelling, increased warmth or erythema. Hands: Right: There is normal pain-free range of motion. There is no MCP tenderness or swelling. There is mild bony enlargement at the thumb IP in all the PIP is in the 2nd slightly tender. There is no thenar atrophy or sensory loss. There is no flexor tendon triggering or tenderness. Some slight bony enlargement without tenderness at the 2nd 3rd PIP joints. Left: Normal pain- free range of motion. There is slight bony enlargement at the thumb IP. The 3rd 4th PIP of slight tenderness. There is some mild bony enlargement at all the DIP is in the 2nd 3rd have mild tenderness. No thenar atrophy or sensory loss. Wrists:.? Slight pain with flexion at 80 degrees with some minimal tenderness but no swelling. Bilaterally positive Phalen's test negative Tinel sign. Elbows: Normal pain-free range of motion without tenderness, swelling, increased warmth or erythema. Shoulders:.?? Able to lift arms above head with mild discomfort. Mild tenderness at AC joint, some weakness 3/5 but no swelling, increased warmth or erythema. Hip bursa:.? Mild tenderness. Knees: Right: Mild pain at the extremes of flexion extension with some mild medial tenderness. There is moderate patellofemoral crepitus but no effusion, redness or warmth. Left: Normal pain-free range of motion with mild patellofemoral crepitus and minimal medial tenderness but no effusion, soft tissue swelling, increased warmth or erythema.? Ankles:.? Normal pain-free range of motion without tenderness, swelling, increased warmth or erythema. Feet:.? Normal pain-free range of motion. There is mild tenderness at the 1st MTP bilaterally and in the right medial heel. There is slight bony enlargement at the 1st MTP but no soft tissue swelling. There is some slight medial heel tenderness on the right without swelling or redness. Otherwise in other joints there is no tenderness, swelling, increased warmth or erythema. Tender points:.? No tenderness to digital palpation at the occiput, trapezius, second rib, lateral epicondyle, knees, greater trochanter and gluteal area bilaterally. ? Results Reviewed Results Reviewed: 11/2022 [facility] [address] [place] [address] Dr. Barrera, WILLIAM [id number] Mammography Report Signed Patient: Celia Marquez MR#: [id number] : 1955 Acct:[id number] Age/Sex: 67 / F ADM Date: 12/07/22 Loc: HO.MAMMO Attending Dr: Anju SUTTON Ordering Physician: Anju Adams Results: Date of Service: 12/07/22 Follow Up: Procedure(s): XR DEXA axial skeleton Accession Number(s): [id number] cc: Anju Adams~ EXAMINATION: BONE DENSITOMETRY CLINICAL INDICATION: Asymptomatic menopausal state. COMPARISON: Baseline BD dated 07/15/2020. TECHNIQUE: Using a Simpli[employer]ity DXA System (software version: 13.1) manufactured by [employer], dual-energy x-ray absorptiometry was performed of the lumbar spine and left hip. The images are of good technical quality. Summary results are attached. FINDINGS: LEFT FEMUR, NECK: Current: BMD 0.769 g/cm2, Z-score -0.7, T-score -1.9, osteopenia. Baseline: BMD 0.826 g/cm2. LEFT FEMUR, TOTAL: Current: BMD 0.982 g/cm2, Z-score 0.8, T-score -0.2, normal, 4.3% decrease from baseline (<5% change is not significant). Baseline: BMD 1.026 g/cm2. AP SPINE L1-L4: Current: BMD 1.193 g/cm2, Z-score 1.2, T-score 0.1, normal, 4.3% decrease from baseline (<5% change is not significant). Baseline: BMD 1.247 g/cm2. IDENTIFIED RISK FACTORS: Early menopause, secondary osteoporosis, family history (parental hip fracture), hysterectomy, bilateral oophorectomy, recurrent falls, glucocorticoids (chronic). HISTORY OF FRACTURE: None listed. MEDICATIONS: Calcium supplements or multivitamin, vitamin D. MM/XR DEXA axial skeleton IMPRESSION: 1. DIAGNOSIS: Osteopenia based on the lowest T-score value of -1.9 in the femoral neck applying World Health Organization criteria. 2. 10-YEAR FRACTURE RISK PREDICTION, FRAX: Major osteoporotic fracture (clinical spine, forearm, hip or shoulder) 15.7%. Hip fracture 3.1%. 3. Treatment Recommendations: NOF guidelines recommend consideration for treatment in postmenopausal women and men age 50 and older presenting with the following: -A hip or vertebral (clinical or morphometric) fracture. -T-score less than or equal to -2.5 at the femoral neck or spine after appropriate evaluation to exclude secondary causes. -Low bone mass at the hip or spine and a 10-year fracture probability by FRAX of greater than or equal to 3% for hip fracture or greater than or equal to 20% for major osteoporotic fracture based on the [place] adapted WHO algorithm. 4. Other Recommendations: All treatment decisions require clinical judgment and consideration of individual patient factors, including patient preferences, comorbidities, previous drug use, risk factors not captured in the FRAX model (e.g. frailty, falls, vitamin D deficiency, increased bone turnover, interval significant decline in bone density) and possible under or overestimation of fracture risk by FRAX. Additional medical evaluation for secondary cause of low bone mineral density may be appropriate. FUTURE SCAN RECOMMENDATION: People with diagnosed cases of osteoporosis or at high risk for fracture should have regular bone mineral density tests. For patients eligible for Medicare, routine testing is allowed once every 2 years. The testing frequency can be increased to one year for patients who have rapidly progressing disease, those who are receiving or discontinuing medical therapy to restore bone mass, or have additional risk factors. 12/2022 Ordering Physician: Curt Falk MD Date of Service: 12/30/22 Procedure(s): XR shoulder RT min 2V Accession Number(s): [id number] cc: Curt Falk MD~ EXAMINATION: XR SHOULDER, RIGHT CLINICAL INFORMATION: Pain in right shoulder COMPARISON: 05/29/2019 TECHNIQUE: 4 views of the right shoulder. FINDINGS: Rightward curvature of the upper thoracic spine with advanced degenerative changes. Mild degenerative changes in the acromioclavicular joint. Mild hypertrophic change along the inferior aspect of the glenoid. No abnormal soft tissue calcifications identified adjacent to the humeral head. XR/XR shoulder RT min 2V IMPRESSION: Mild degenerative changes. Assessment & Plan Assessment & Plan (1) Bilateral hand numbness: Code(s): R20.0 - Anesthesia of skin (2) KAMILA positive: Comment: Subsequently negative in 2020 Code(s): R76.8 - Other specified abnormal immunological findings in serum (3) Bilateral primary osteoarthritis of knee: Code(s): M17.0 - Bilateral primary osteoarthritis of knee (4) Foot pain, bilateral: Code(s): M79.671 - Pain in right foot; M79.672 - Pain in left foot (5) Myalgia, upper arm: Code(s): M79.18 - Myalgia, other site Plan The patient has had a year a so of hand numbness and pain. On exam there is some mild bony enlargement at the interphalangeal joints suggesting osteoarthritis. Imaging also confirms left knee OA and Right shoulder OA. She had a positive KAMILA in the past that then became negative and has no evidence for an active inflammatory arthritis presently. The pain in the feet is mostly across the 1st MTP joints. She does have some osteoarthritis in the 1st MTP joints. She is complainig today upper arm muscle tenderness. I think treating with some prednisone is reasonable. Will reassess after prednisone to see if improved. I will order CK, ESR, CRP to assess for muscle involvement though unlikely. The patient should continue to follow with ortho and pain management. I discussed with patient that given the multiple medication currently used to manage her pain, there is not much else that can be recommended. Mild activity levels and dietary changes may help. I think a good portion of pain is from a deconditioned status. F/u in 1 month Orders: Orders Creatine Kinase Total 05/27/23 M79.18 - Myalgia, other site Aldolase 05/27/23 M79.18 - Myalgia, other site Erythrocyte Sedimentation Rate 05/27/23 M79.18 - Myalgia, other site C Reactive Protein 05/27/23 M79.18 - Myalgia, other site Coding Level of Care Code Est Pt Level 3 (80169) Diagnoses Bilateral hand numbness R20.0 KAMILA positive R76.8 Bilateral primary osteoarthritis of knee M17.0 Foot pain, bilateral M79.671; M79.672 Myalgia, upper arm M79.18
[2023-05-27 13:34] VITALS: BP 132/64; PULSE 82; TEMP 35.9; O2SAT 94; BMI 38.3
== END 2023-05-27 14:36 | disposition home or self-care (01) ==
PROVIDERS: PCP Internal Medicine; Visit Provider Nurse Practitioner Family
DX: R20.0 Anesthesia of skin (principal); R76.8 Other specified abnormal immunological findings in serum; M17.0 Bilateral primary osteoarthritis of knee; M79.671 Pain in right foot; M79.672 Pain in left foot; M79.18 Myalgia, other site
CPT/HCPCS: 99213

== ENCOUNTER 2023-06-17 11:32 | Outpatient (AMB) | payer OTHER, MEDICAID, SELFPAY ==
--- NOTE | 2023-06-17 11:34 | MHC.OFFVIS ---
Intake Vital Signs 06/17/23 11:47 Height 4 ft 10 in Weight 189 lb BMI 39.5 BP 145/66 H Blood Pressure Location Rt brachial Position Sitting Pulse 77 Pulse Source Pulse Oximeter Pulse Oximetry (%) 98 Oxygen Delivery Method Room Air Intake Visit Reasons: Pill count Intake Note: Celia comes in today for a pill count to oxycodone and a film count to belbuca, patient should have 4 films of belbuca and 4 films which she last took today 06/17/23 at 7:30am, oxycodone should have 8 tablets and presents with 18 tablets which she last took about a week ago. Pain today 2/10. Patient will also have a random UDS done today, aware that she will need to go down to the lab on the first floor of this building today 06/17/23 before 1pm. Multiple Games Dealer Required: No Accompanied by: Self / Same As Patient Allergies Penicillins [PENICILLINS] Allergy (Intermediate, Verified 06/17/23 11:48) RASH HPI HPI Comments History of Present Illness Details Patient presents today for a pill and film count. For Belbuca, #4 films were expected, and #4 films were presented. For oxycodone, #8 pills were expected, and #18 pills were presented. This demonstrates a responsible attitude in regards to the medication regimen. Patient reports mild to moderate analgesia for her back and knee pain with Belbuca bid and oxycodone prn on most days. Reports pain 2/10 today. Patient reports increased pain with prolonged walking, standing and cold weather. Patient reports she does not want to depend on opioids and is interested in alternative methods to treat her chronic pain. She requests to decrease Belbuca dose to 300 mcg BID today. We previously discussed neuromodulation with SCS vs ITDD trial and implants at greater lengths. Patient was hesitant towards these options. Returned to treatments for knee pain, including PNS, genicular RFA, cortisone vs gel injections. Patient is interested to undergo gel injection for bilateral knee pain when pain returns to baseline. Patient had right TKA on 09/22/21. She states her pain levels have been low. She tries to loose weight and avoid unhealthy food choices to reduce her chronic pain and multiple joint pain. Denies any recent cough, cold, infection, fever, dizziness, shortness of breaths, constipation, nausea, sedation, foot drop, urinary retention, bladder or bowel incontinence or saddle anesthesia. Past Procedures: 11/05/22: Right femoral nerve block- no right knee pain for 5 hours 07/07/22: Left L3-L4-L5 MB RFA-80% ongoing pain relief 06/16/22: Right L4-L5 TFESI-80% ongoing pain relief 05/26/22: Right L3-L4-L5 MB RFA- 80% pain relief 04/21/22: Right intra-articular hip steroid injection -ongoing 50% pain relief . 08/19/21: Bilateral L3-L4-L5 Diagnostic MBBs ? 80% pain relief for 8 hours 06/17/21: Bilateral Diagnostic L3-L4-L5 MBBs ? 75% relief for 1 day [facility] Medical History Myalgia, upper arm Osteoarthritis of right knee Lumbar spondylosis Foot pain, bilateral BRIDGETTE (obstructive sleep apnea) Asthma Dyspnea KAMILA positive Urticaria Obesity (BMI 30-39.9) Depression Anxiety Insomnia Vitamin D deficiency Chronic interstitial cystitis Irritable bowel syndrome (IBS) Arthralgia Osteoarthritis Esophageal stricture GERD (gastroesophageal reflux disease) Left lumbar radiculopathy CAD (coronary artery disease) Pure hypercholesterolemia Benign essential hypertension Surgical History History of surgery History of total right knee replacement (09/22/21) Hx of cystoscopy Status post balloon dilatation of esophageal stricture (~2005) History of cardiac catheterization History of colonoscopy History of nephrolithotomy with removal of calculi History of tooth extraction Family History Father Hypertension Mother Hypertension Diabetes CVD (cardiovascular disease) Daughter No problems noted. Family/Other FH: mental illness Other Mental health problem Substance abuse Social History Housing: Apartment Are you a primary career center advisor to a significant other at home: No Do you presently have visiting nurse or other home services: No Alcohol intake: never Comment: medicated, see MAR Patient Tobacco Use Status: Never used Tobacco e-Cigarette/Vaping Use: Never Used Second Hand Smoke Exposure: No service: No Current occupational status: disabled Cognitive needs: No Hearing needs: No Vision needs: Yes Review of Systems Const All systems reviewed & are unremarkable except as noted in HPI and below Physical Exam General: Appears afebrile. Alert and oriented. Mood and affect appropriate. Follows and participates in conversation appropriately. Respiratory effort is unlabored. No cough. Able to transition from sit to stand unassisted. Back/Spine/Pelvis Cervical Spine: cervical ROM normal and No Cervical spine tenderness Thoracic/Lumbar Spine: thoracic and lumbar spine normal to inspection, Lasegue's sign negative, straight leg raise negative bilaterally, pain with thoraco-lumbar ROM (mild), paraspinal muscle tenderness, thoraco-lumbar ROM limited, No thoracic spinal tenderness and lumbar spinal tenderness Pelvis: no buttock tenderness Sacroiliac joints: bilaterally nontender Extrem General: Yes capillary refill normal, Yes no clubbing, cyanosis or edema and Yes no calf tenderness Psych Appearance: grossly normal and well kempt Mental Status: mental status grossly normal Speech and movement: Normal speech and movement present and Clear speech present Affect: normal affect Attitude: cooperative Thought process: Normal thought process present Thought content: Normal thought content present, suicidality (none), no hallucinations and No Depressive thoughts present Insight: Good insight present (Psych) Judgement: Good judgement present (Psych) Results Reviewed Results Reviewed: MR LUMBAR SPINE WITHOUT CONTRAST 03/05/22 FINDINGS: VERTEBRAL BODIES AND PARASPINAL STRUCTURES: There are mild grade 1 anterolistheses of L4 on L5 and L5 on S1. There is multilevel narrowing of intervertebral disc height with loss of signal throughout the lumbar spine. There are multilevel anterior and right-sided marginal osteophytes. Vertebral body heights are maintained and no fractures are demonstrated. There is an area of increased T1 and T2 signal in the body of L2 consistent with a hemangioma. Overall, marrow signal is homogenous. There are small bilateral renal cysts. The visualized pelvic structures are unremarkable. CONUS MEDULLARIS AND CAUDA EQUINA: Normal, terminating at the level of L1. The lower thoracic spinal cord appears normal. The cauda equina nerve roots and filum terminale appear normal. SPINAL LEVELS: T12-L1: There is mild bilateral facet arthropathy. Posterior disc contour is normal. There is no central stenosis or foraminal narrowing. L1-L2: There is mild bilateral facet arthropathy. Posterior disc contour is normal. There is no central stenosis or foraminal narrowing. L2-L3: There is mild bilateral facet arthropathy. There are small right-sided disc protrusion with minimal distortion of the ventral thecal sac but there is no central stenosis. The neural foramina are patent bilaterally. L3-L4: There is moderate bilateral facet arthropathy. There is a broad-based posterior disc protrusion with a small extruded component extending behind the body of L3 centrally and toward the right. There is minimal distortion of the ventral thecal sac. There is no central stenosis. There are foraminal disc protrusions with mild impingement on the exiting right L3 nerve root. L4-L5: There is markedly severe left and severe right facet arthropathy. There is a broad-based posterior disc protrusion with an annular fissure which flattens the ventral thecal sac and narrows the subarticular recesses. There are bilateral foraminal disc protrusions with impingement on the exiting L4 nerve roots. There is no significant central stenosis. L5-S1: There is markedly severe bilateral facet arthropathy. There is a shallow posterior disc protrusion with mild distortion of the ventral thecal sac but there is no central stenosis. There are left greater than right foraminal disc protrusions with impingement on the exiting left L5 nerve root. IMPRESSION: 1. At L4-L5 there is markedly severe left and severe right facet arthropathy. There is a posterior disc protrusion and there is narrowing of the subarticular recesses. There are bilateral foraminal disc protrusions with impingement on the exiting L4 nerve roots. There is no significant central stenosis. 2. At L5-S1 there is markedly severe facet arthropathy. There is a shallow posterior disc protrusion without central stenosis. There are left greater than right foraminal disc protrusions with impingement on the exiting left L5 nerve root. 3. At L3-L4 there is moderate facet arthropathy. There is a small posterior disc protrusion/extrusion without central stenosis. There are foraminal disc protrusions with impingement on the exiting right L3 nerve root. XR HIP, RIGHT 02/17/22 FINDINGS: Bone alignment is normal. No fracture or dislocation. Moderate right hip arthritis with joint space narrowing and osteophyte formation. Normal soft tissues. IMPRESSION: Moderate right hip arthritis. XR LUMBOSACRAL SPINE 02/01/22 FINDINGS: Lumbar spine alignment is normal. There is mild loss of disc space and endplate remodeling at multiple levels which is most apparent at T12-L1, overall similar to the prior study. There is osteophyte formation at multiple levels including relatively bulky osteophytes along the right side of the upper lumbar spine and there is multilevel facet arthropathy. There is atherosclerotic calcification of the abdominal aorta best visualized on lateral radiographs. Soft tissues are unremarkable. IMPRESSION: Mild multilevel degenerative changes of the lumbar spine overall similar to the prior study. XR/XR knee RT 2V 12/10/22 RIGHT KNEE: Total right knee arthroplasty without evidence of complication. LEFT KNEE: Tricompartmental osteoarthritis, most prominent within the medial compartment, unchanged. Assessment & Plan Assessment & Plan (1) Chronic pain syndrome: Code(s): G89.4 - Chronic pain syndrome (2) Opioid contract exists: Code(s): Z79.891 - alf (current) use of opiate analgesic (3) Lumbar spondylosis: Code(s): M47.816 - Spondylosis without myelopathy or radiculopathy, lumbar region (4) Bilateral primary osteoarthritis of knee: Code(s): M17.0 - Bilateral primary osteoarthritis of knee (5) Spondylosis of lumbosacral spine with radiculopathy: Code(s): M47.27 - Other spondylosis with radiculopathy, lumbosacral region (6) Long-term current use of opiate analgesic: Code(s): Z79.891 - alf (current) use of opiate analgesic Plan Patient has shown accountability for her medication regimen and the pill/patch count was accurate. There is no evidence of misuse, abuse or diversion at this time. MassPat reviewed and consistent. Script for oxycodone-acetaminophen 5-325 mg daily prn will be held at this time, patient will notify our office when she gets down to 3-5 tabs. Per patient's request, will decrease Belbuca to 300 mcg BID which will be sent today. Discussed interventional treatments for patient's chronic pain generators, including neuromodulation, RFA, and gel injections. Patient will notify our office if she is interested. All questions and concerns have been answered and patient agreed with the plan. Follow up for pill count in 4 weeks and sooner if needed. Medications: Changed From buprenorphine HCl (Belbuca) Partial Fill upon patient request. 450 mcg buccal BID 30 days 60 ea 0RF pain G89.4 - Chronic pain syndrome, M17.0 - Bilateral primary osteoarthritis of knee, M47.27 - Other spondylosis with radiculopathy, lumbosacral region, Z79.891 - long term care administrator (current) use of opiate analgesic To buprenorphine HCl Partial Fill upon patient request. 300 mcg buccal Q12H 30 days 60 ea 0RF pain G89.4 - Chronic pain syndrome, M17.0 - Bilateral primary osteoarthritis of knee, M47.27 - Other spondylosis with radiculopathy, lumbosacral region, Z79.891 - long term care administrator (current) use of opiate analgesic Coding Level of Care Code Est Pt Level 4 (01308) Diagnoses Chronic pain syndrome G89.4 Opioid contract exists Z79.891 Lumbar spondylosis M47.816 Bilateral primary osteoarthritis of knee M17.0 Spondylosis of lumbosacral spine with radiculopathy M47.27 Long-term current use of opiate analgesic Z79.891
[2023-06-17 11:47] VITALS: BP 145/66; PULSE 77; O2SAT 98; BMI 39.5
== END 2023-06-17 11:52 | disposition home or self-care (01) ==
PROVIDERS: PCP Internal Medicine; Visit Provider Nurse Practitioner Family
DX: G89.4 Chronic pain syndrome (principal); M47.816 Spondylosis without myelopathy or radiculopathy, lumbar region; M17.0 Bilateral primary osteoarthritis of knee; Z79.891 Long term (current) use of opiate analgesic; M47.27 Other spondylosis with radiculopathy, lumbosacral region
CPT/HCPCS: 99214

== ENCOUNTER → 2023-06-17 11:32 | Outpatient (BNVA) | payer OTHER, MEDICAID, SELFPAY | PROVIDERS: PCP Internal Medicine; Visit Provider Nurse Practitioner Family | DX: Z51.81 Encounter for therapeutic drug level monitoring (principal); M47.816 Spondylosis without myelopathy or radiculopathy, lumbar region; M17.0 Bilateral primary osteoarthritis of knee; M47.27 Other spondylosis with radiculopathy, lumbosacral region; G89.4 Chronic pain syndrome; Z79.891 Long term (current) use of opiate analgesic | CPT/HCPCS: 99212 ==

== ENCOUNTER 2023-06-27 13:24 | Outpatient (AMB) | payer OTHER, SELFPAY ==
[2023-06-27 13:30] VITALS: PULSE 71; O2SAT 95; BMI 38.0
--- NOTE | 2023-06-27 13:30 | A.OFFVIS_ITS ---
Intake Vital Signs 06/27/23 13:30 Height 4 ft 11 in Weight 188 lb BMI 38.0 Pulse 71 Pulse Source Pulse Oximeter Pulse Oximetry (%) 95 Oxygen Delivery Method Room Air Intake Visit Reasons: Obstructive sleep apnea Top Lift Compressor Required: No Allergies Penicillins [PENICILLINS] Allergy (Intermediate, Verified 06/27/23 13:31) RASH HPI HPI Comments History of Present Illness Details The patient is a 68-year-old woman with known history of asthma in addition to severe uticaria. the patient and follow closely by Dermatology. Seems to respond very well to prednisone. She tried and failed CellCept and currently is tolerating the Dupixent. However, she has worsening respiratory symptoms. She has been having chest tightness and wheezing. She does have a rescue inhaler that she uses often with partial resolution of symptoms. In addition to the the prednisone hopes of breathing. During the office visit with primary care doctor she did complaint of the symptoms she did have a chest x- ray demonstrating no acute disease. 02/01/2022 the patient is here for a pul [facility] follow-up visit. Overall she continues to do well from a respiratory status. Ever since she started Dupixent injections for her significant a topic dermatitis her asthma is improved dramatically as well. She has not had to use any prednisone. She continues to take the Breo daily. She has not had to use any rescue medicine. Patient has been complaining of back pain. She does follow-up pain clinic. She has not had a formal chest x-ray. Will go ahead and request imaging studies at this time. She is also having significant sciatica like symptoms. She has been on multiple pain medications without any significant relief. She will be following up with her primary care doctor soon. I did recommend she can not take a small course of prednisone to see if this alleviates her level of inflammation. Patient still has issues with daytime drowsiness. Her Dexter score is 8/24. Partly is more because she wakes up multiple times because of interstitial cystitis then it is from sleep apnea. The patient would like to hold off on any PAP therapy at this time. She is going to continue to work on positional therapy. 06/27/2023 the patient is here for a [place] follow-[place] visit. She is feeling better now. The patient did have an asthma exacerbation several weeks ago. She did have called the dispatch because she was having hard time. She was evaluated and given a nebulized treatment. Her symptoms did improve. It was recommended she get a nebulizer. The patient has been using the Breo inhaler. Although she does use it it causes irritation to her throat. She wishes to be off the powder inhaler. Therefore, will switch her to an HFA formulation. The patient also was taken Dupixent for her eczema and atopic dermatitis. Although she is now off it since she has been stable. The patient has been off it now for several months and her rashes still stable and has not seen any significant worsening of the asthma just yet. She is going to be monitoring closely. The patient also has been continue to use positional therapy. Denies any daytime drowsiness. Dexter score is around 6. therefore no additional testing necessary at this time. [facility] Medical History Myalgia, upper arm Osteoarthritis of right knee Lumbar spondylosis Foot pain, bilateral BRIDGETTE (obstructive sleep apnea) Asthma Dyspnea KAMLIA positive Urticaria Obesity (BMI 30-39.9) Depression Anxiety Insomnia Vitamin D deficiency Chronic interstitial cystitis Irritable bowel syndrome (IBS) Arthralgia Osteoarthritis Esophageal stricture GERD (gastroesophageal reflux disease) Left lumbar radiculopathy CAD (coronary artery disease) Pure hypercholesterolemia Benign essential hypertension Surgical History History of surgery History of total right knee replacement (09/22/21) Hx of cystoscopy Status post balloon dilatation of esophageal stricture (~2005) History of cardiac catheterization History of colonoscopy History of nephrolithotomy with removal of calculi History of tooth extraction Family History Father Hypertension Mother Hypertension Diabetes CVD (cardiovascular disease) Daughter No problems noted. Family/Other FH: mental illness Other Mental health problem Substance abuse Social History Housing: Apartment Are you a primary career transition specialist to a significant other at home: No Do you presently have visiting nurse or other home services: No Alcohol intake: never Comment: medicated, see MAR Patient Tobacco Use Status: Never used Tobacco e-Cigarette/Vaping Use: Never Used Second Hand Smoke Exposure: No service: No Current occupational status: disabled Cognitive needs: No Hearing needs: No Vision needs: Yes Review of Systems Const Denies daytime sleepiness and Denies night sweats ENT Denies change in voice, Denies lip swelling, Denies mouth pain, Reports nasal congestion, Reports nasal discharge and Denies tongue swelling Card Denies chest pain Resp Reports cough and Reports wheezing GI Denies abdominal pain Musc Reports as per HPI, Reports back pain and Reports radiating pain into limb Skin/Breast Denies pruritus and Denies rash Neuro Denies Neuro-related abnormal movements Psych Denies no additional complaints Stanton/Lymph Denies easy bleeding and Denies lymphadenopathy Aller/Immun Denies lip swelling, Denies tongue swelling and Reports wheezing Physical Exam Vital Signs: Last Vital Signs Pulse 71 06/27/23 13:30 Pulse Ox 95 06/27/23 13:30 Oxygen Delivery Method Room Air 06/27/23 13:30 BMI result Body Mass Index 38.0 Const General: alert Neck Neck: Yes normal visual inspection, Yes full ROM and Yes no lymphadenopathy Chest Chest palpation & inspection: normal inspection of the chest Resp Effort & Inspection: normal respiratory effort and prolonged expiratory phase Auscultation: no wheezes and diminished lung sounds Cardio Rate: regular rate Rhythm: regular rhythm Heart sounds: S1 normal heart sound present and S2 normal heart sound present GI Palpation (GI): Soft to palpation and nontender Auscultation: normal bowel sounds Skin General skin exam: rashes and/or lesions noted Assessment & Plan Assessment & Plan (1) Dyspnea: Code(s): R06.00 - Dyspnea, unspecified Qualifiers: Dyspnea type: shortness of breath Qualified Code(s): R06.02 - Shortness of breath (2) Asthma: Code(s): J45.909 - Unspecified asthma, uncomplicated Qualifiers: Asthma complication type: uncomplicated Asthma persistence: persistent Asthma severity: moderate Qualified Code(s): J45.40 - Moderate persistent asthma, uncomplicated (3) BRIDGETTE (obstructive sleep apnea): Code(s): G47.33 - Obstructive sleep apnea (adult) (pediatric) Plan stop Breo 200, does not tolerate the powdered inhalers start Advair HFA CARITO as needed Needs a nebulizer for albuterol. Nebulizer provided in our office ([facility]) stopped Dupixent which is mainly for her dermatitis, waiting and monitoring positional sleep therapy. No PSG at this time Follow-up 8-12 months Medications: New fluticasone propion-salmeterol 115-21 mcg/actuation (Advair HFA) 2 puffs inhalation Q12H 30 days 12 grams 11RF albuterol sulfate 2.5 mg (3 mL) inhalation Q6H 30 days PRN 180 mL 11RF shortness of breath or wheezing albuterol sulfate 90 mcg/actuation 2 inhalations inhalation Q6H 30 days PRN 18 grams 12RF shortness of breath or wheezing J44.9 - Chronic obstructive pulmonary disease, unspecified Coding Level of Care Code Est Pt Level 4 (15378) Diagnoses Shortness of breath R06.02 Dyspnea type: shortness of breath Moderate persistent asthma without complication J45.40 Asthma complication type: uncomplicated Asthma persistence: persistent Asthma severity: moderate BRIDGETTE (obstructive sleep apnea) G47.33 Time Spent (min) 18
== END 2023-06-27 13:47 | disposition home or self-care (01) ==
PROVIDERS: PCP Internal Medicine; Visit Provider Hospitalist
DX: R06.02 Shortness of breath (principal); J45.40 Moderate persistent asthma, uncomplicated; G47.33 Obstructive sleep apnea (adult) (pediatric)
CPT/HCPCS: 99214

== ENCOUNTER → 2023-06-27 13:24 | Outpatient (BNVA) | payer OTHER, SELFPAY | PROVIDERS: PCP Internal Medicine; Visit Provider Hospitalist | DX: G47.33 Obstructive sleep apnea (adult) (pediatric) (principal); J45.40 Moderate persistent asthma, uncomplicated; R06.02 Shortness of breath | CPT/HCPCS: 99212 ==

== ENCOUNTER 2023-07-07 09:57 | Outpatient (REF) | payer OTHER, SELFPAY ==
[2023-07-07 10:13] LABS: MANUAL DIFF FLAG NO
[2023-07-07 10:50] LABS: Basophils Absolute Auto 0.1 X10*3/uL (0.0-0.2); Basophils Percent Auto 1.1 % (0-2); Eosinophils Absolute Auto 0.3 X10*3/uL (0.0-0.4); Eosinophils Percent Auto 6.9 % (0-4); Hematocrit 36.6 % (37.0-47.0); Hemoglobin 11.7 g/dl (12.0-16.0); Imm Gran Abs Auto 0.02 X10*3/uL (0.00-0.03); Imm Gran Pct Auto 0.4 % (0.0-0.4); Lymphocytes Absolute Auto 1.5 X10*3/uL (1.2-4.9); Lymphocytes Percent Auto 32.3 % (20-40); Mean Corpuscular Hemoglobin 26.8 pg (27.0-33.0); Mean Corpuscular Volume 83.8 fL (80.0-98.0); Mean Platelet Volume 11.3 fL (9.4-12.3); Monocytes Absolute Auto 0.2 X10*3/uL (0.1-1.2); Monocytes Percent Auto 4.9 % (2-11); Neutrophils Absolute Auto 2.5 x10*3/uL (2.0-8.3); Neutrophils Percent Auto 54.4 % (45-73); Platelet Count 162 X10*3/uL (160-400); Red Blood Count 4.37 X10*6/uL (4.20-5.50); Red Cell Distribution Width 13.7 % (11.0-16.0); White Blood Count 4.7 X10*3/uL (4.8-10.8)
[2023-07-07 11:10] LABS: Appearance Urine Clear; Color Urine Yellow; Glucose Urine UA Negative (Negative); Leukocyte Esterase Urine Negative (Negative); Nitrite Urine Negative (Negative); PH 8.5 (5.0-9.0); Specific Gravity - Urine 1.015 (1.005-1.025); Urine Blood Negative (Negative); Urine Ketones Negative (Negative); Urine Protein Negative (Neg-Trace)
[2023-07-07 11:11] LABS: Estimated Average Glucose 108 mg/dL; Hemoglobin A1c % 5.4 % (<6.0)
[2023-07-07 11:21] LABS: Alanine Aminotransferase 15 U/L (0-31); Alkaline Phosphatase 78 U/L (39-117); Anion Gap 13 (12-20); Aspartate Amino Transferase 20 U/L (5-31); Bilirubin Total 0.4 mg/dL (0.0-1.0); Blood Urea Nitrogen 12 mg/dL (9-16); C Reactive Protein 0.19 mg/dL (< or = 0.50); Calcium 10.2 mg/dL (8.4-10.2); Carbon Dioxide 28 mmol/L (22-29); Chloride 106 mmol/L (96-108); Cholesterol 187 mg/dL (<200); Estimated Glomerular Filt Rate > 60; Glucose Fasting 98 mg/dL (60-99); HDL Cholesterol 44 mg/dL (>40); LDL Cholesterol Calculated 89 mg/dL (<100); Potassium 4.1 mmol/L (3.3-5.1); Sodium 143 mmol/L (135-145); Total Protein 6.9 g/dL (6.5-8.0); Triglycerides 272 mg/dL (<150)
[2023-07-07 11:28] LABS: TSH reflex Free T4 2.78 uIU/mL (0.32-4.0)
[2023-07-07 13:21] LABS: Erythrocyte Sedimentation Rate 20 MM/HR (0-20)
== END 2023-07-07 09:58 | disposition home or self-care (01) ==
LOC: HO.LAB 09:57
PROVIDERS: PCP Internal Medicine; Visit Provider Internal Medicine
DX: E78.00 Pure hypercholesterolemia, unspecified (principal); R73.01 Impaired fasting glucose; R30.0 Dysuria; M79.7 Fibromyalgia; I10 Essential (primary) hypertension; E55.9 Vitamin D deficiency, unspecified; M25.50 Pain in unspecified joint
CPT/HCPCS: 36415; 80053; 80061; 81003; 82306; 83036; 84443; 85025; 85652; 86140

== ENCOUNTER 2023-07-12 13:26 | Outpatient (AMB) | payer OTHER, SELFPAY ==
--- NOTE | 2023-07-12 13:29 | MHC.PC.OV ---
Vital Signs 07/12/23 13:31 Height 4 ft 11 in Weight 191 lb 8 oz BMI 38.7 BP 120/62 Blood Pressure Location Lt brachial Position Sitting Pulse 95 Pulse Source Pulse Oximeter Pulse Oximetry (%) 90 L Oxygen Delivery Method Room Air Intake Visit Reasons: 3 month f/u Intake Note: Patient is here to follow up on IFG, BRIDGETTE, HTN, Asthma. Complaint of pressure in chest, nasal congestion, no headaches on going for a week. Wedding Coordinator Required: No Head Of Geography: Not Required per policy Accompanied by: Self / Same As Patient Allergies Penicillins [PENICILLINS] Allergy (Intermediate, Verified 02/08/24 14:23) RASH Medication List - Last Reconciled 02/12/24 by Curt Falk MD acetaminophen 650 mg (2 x 325 mg) PO Q6H PRN 30 days [ADULT PULL-UPS As directed] albuterol sulfate 90 mcg/actuation 2 puffs PO Q6H PRN albuterol sulfate 2.5 mg (3 mL) inhalation Q6H PRN 30 days albuterol sulfate 90 mcg/actuation 2 inhalations inhalation Q6H PRN 30 days aspirin 81 mg PO DAILY atorvastatin 10 mg PO BEDTIME 90 days blood pressure kit-extra large As directed buprenorphine HCl 150 mcg buccal Q12H 30 days calcium carbonate (Oyster Shell Calcium) 500 mg PO DAILY 90 days escitalopram oxalate 20 mg PO DAILY 90 days ezetimibe 10 mg PO DAILY fluticasone furoate-vilanterol 200-25 mcg/dose (Breo Ellipta) 1 ea inhalation DAILY fluticasone propion-salmeterol 115-21 mcg/actuation (Advair HFA) 2 puffs inhalation Q12H 30 days hydroxyzine pamoate 50 mg PO TID ibuprofen 600 mg PO Q8H PRN ketotifen fumarate 0.025%(0.035%) drps ophthalmic (eye) lidocaine 5% leave on most painful area for up to 12 hrs topically daily; loratadine 10 mg PO DAILY PRN 90 days lorazepam mg PO BID PRN methocarbamol 500 mg PO BID 30 days mirabegron ER (Myrbetriq) 50 mg PO DAILY montelukast 10 mg PO DAILY naloxone 4 mg/actuation (Narcan) 4 mg intranasal Q3M PRN [NEBULIZER and all related supplies As directed] omeprazole 40 mg PO DAILY 90 days oxycodone 5 mg PO DAILY PRN 30 days prazosin 1 mg PO BEDTIME quetiapine 50 mg PO BEDTIME trazodone 200 mg PO BEDTIME PRN Tobacco use date assessed: 07/12/23 Fall risk assessment: No Falls in past year Last assessed Fall Risk: 07/12/23 Dental Screening Dental Screen Date: 07/12/23 Did you have a dental visit in the last 12 months?: No Did you have a dental problem in the last 6 months where you did not have access to dental care?: No Was dental information given to patient?: No (dentures) HPI 3 month f/u HPI Details Patient comes in today for her follow up visit States that she has been feeling sick since last week, with increased/recurrent cough and congestion States that her chest feels tight often lately and she has been coughing up scanty, thick whitish to yellowish phlegm at times lately Relates also increased nasal and sinus congestion and fatigue; throat also feels sore and scratchy She denies any fever, headaches or dizziness Denies any chest pains but notes (+) mild YANEZ at times recently No nausea/vomiting, no abdominal pain No change in bowel habits noted States that her chronic low back pain and joint pains remain adequately controlled on her current Rx and she continues to follow up with pain management regularly for these issues Had her follow up labs done a few days ago - to discuss her results [facility] Medical History (Updated 02/12/24 @ 15:00 by Curt Falk MD) Depression Anxiety Insomnia Myalgia, upper arm Osteoarthritis of right knee Lumbar spondylosis Foot pain, bilateral BRIDGETTE (obstructive sleep apnea) Asthma KAMILA positive Urticaria Obesity (BMI 30-39.9) Vitamin D deficiency Chronic interstitial cystitis Irritable bowel syndrome (IBS) Arthralgia Osteoarthritis Esophageal stricture GERD (gastroesophageal reflux disease) Left lumbar radiculopathy CAD (coronary artery disease) Pure hypercholesterolemia Benign essential hypertension Surgical History History of surgery History of total right knee replacement (09/22/21) Hx of cystoscopy Status post balloon dilatation of esophageal stricture (~2005) History of cardiac catheterization History of colonoscopy History of nephrolithotomy with removal of calculi History of tooth extraction Family History Father Hypertension Mother Hypertension Diabetes CVD (cardiovascular disease) Daughter No problems noted. Family/Other FH: mental illness Other Mental health problem Substance abuse Social History Housing: Apartment Are you a primary pediatric acute care unit nurse to a significant other at home: No Do you presently have visiting nurse or other home services: No Alcohol intake: never Comment: medicated, see MAR Patient Tobacco Use Status: Never used Tobacco e-Cigarette/Vaping Use: Never Used Second Hand Smoke Exposure: No service: No Current occupational status: disabled Cognitive needs: No Hearing needs: No Vision needs: Yes Questionnaire PHQ-9 Over the last 2 weeks, how often have you been bothered by any of the following problems? 1. Little interest or pleasure in doing things: not at all 2. Feeling down, depressed, or hopeless: not at all 3. Trouble falling or staying asleep, or sleeping too much: not at all 4. Feeling tired or having little energy: not at all 5. Poor appetite or overeating: not at all 6. Feeling bad about yourself - or that you are a failure or have let yourself or your family down: not at all 7. Trouble concentrating on things, such as reading the newspaper or watching television: not at all 8. Moving or speaking so slowly that other people could have noticed. Or the opposite - being so fidgety or restless that you have been moving around a lot more than usual: not at all 9. Thoughts that you would be better off or of hurting yourself in some way: not at all Total score: 0 Depression Screening Interpretation: Negative Depression Screening Done: Yes 97155 - PHQ-9 Billing: Yes Source: Developed by Drs. Jorge Diallo, Yumiko Irvin, Celestino Banda and colleagues, with an educational mari from [employer]. Thrive Questionnaire Date Thrive assessed: 07/12/23 I am a: Patient What is your living situation today?: I have a steady place to live Within the past 12 months, did the food you bought not last and you didn't have the money to get more?: Never true Within the past 12 months, did you worry whether your food would run out before you got money to buy more?: Never true Do you have trouble paying for medicines?: No Do you have trouble getting transportation to medical appointments?: No Do you have trouble paying your heating and electricity bill?: No Do you have trouble taking care of your child, family member or friend?: No Do you have trouble with day-to-day activities such as bathing, preparing meals, shopping, managing finances, etc.?: No Are you currently unemployed and looking for a job?: No Are you interested in more education?: No Currently or been in a relationship where the following occur: no concerns reported THRIVE Score: 0 AUDIT C Alcohol Use Questionnaire (AUDIT-C) 1. How often do you have a drink containing alcohol?: Never Total Score: 0 Score Reviewed/Action Taken: Yes ADRIANA-7 AMB Questionnaire ADRIANA-7 Date ADRIANA - 7 assessed: 07/12/23 Feeling nervous, anxious, or on edge: 0 = Not at all Not being able to stop or control worryin = Not at all Worrying too much about different things: 0 = Not at all Trouble relaxin = Not at all Being so restless that it is hard to sit still: 0 = Not at all Becoming easily annoyed or irritable: 0 = Not at all Feeling afraid as if something awful might happen: 0 = Not at all Total ADRIANA-7 score (0-4 normal; 5-9 mild; 10-14 moderate; 15-21 severe): 0 Source: Developed by Drs. Jorge Diallo, Yumiko Irvin, Celestino Banda and colleagues, with an educational mari from [employer]. Review of Systems Const Denies chills, Reports difficulty sleeping (mostly due to frequent trips to the bathroom), Reports fatigue, Denies fever(s) and Denies headache(s) ENT Denies dysphagia, Denies dizziness, Denies otalgia, Denies headache(s), Reports nasal congestion, Denies neck pain, Denies odynophagia and Reports sore throat Card Denies chest pain, Denies palpitations and Denies dyspnea Resp Reports as per HPI, Reports chest congestion, Reports cough and Denies dyspnea GI Denies abdominal pain, Denies constipation, Denies dysphagia, Denies heartburn, Denies diarrhea, Denies nausea, Denies odynophagia and Denies vomiting Denies difficulty voiding, Reports nocturia, Reports dysuria (on and off - has chronic IC) and Reports urinary urgency (at times) Musc Reports back pain (over the right lower back), Reports arthralgias (involving multiple joints - right knee and hip and right shoulder), Denies neck pain, Reports radiating pain into limb (into the right thigh and leg; right shoulder pain going into neck/arm) and Reports stiffness Skin/Breast Denies rash Neuro Denies dizziness and Denies headache(s) Psych Denies anxiety Endo Reports fatigue and Denies palpitations Stanton/Lymph Details: swelling of both hands and feet lately Physical exam (Primary Care) Vital Signs: Last Vital Signs Pulse 95 07/12/23 13:31 BP 120/62 07/12/23 13:31 Pulse Ox 90 L 07/12/23 13:31 Oxygen Delivery Method Room Air 07/12/23 13:31 BMI result Body Mass Index 38.7 Tobacco/Smoking Status: Tobacco use Status Tobacco use date assessed 07/12/23 07/12/23 13:37 Patient Tobacco Use Status Never used Tobacco 07/12/23 13:37 Tobacco use type 05/04/22 10:14 e-Cigarette/Vaping Use Never Used 07/12/23 13:37 PHQ-9: PHQ-9 Score PHQ-9: Total score 0 07/12/23 14:49 Depression Screening Interpretation: Negative Thrive Assessment: Date of Thrive Assessment Date Thrive assessed 07/12/23 07/12/23 13:37 Currently or been in a relationship where the following occur: no concerns reported Const General: no acute distress and alert HENMT Ears: TM's normal bilaterally and EAC's normal Throat: Yes tonsils normal (no TP congestion noted) and Yes posterior oropharynx abnormal ((+) erythema of the posterior pharynx) Neck Neck: Yes no lymphadenopathy and Yes supple Thyroid: Thyroid normal Resp Auscultation: no crackles, no rales, rhonchi (scattered) throughout, no wheezes and diminished lung sounds (slightly) bilateral Cardio Rate: regular rate Rhythm: regular rhythm Heart sounds: no murmurs GI Palpation (GI): Soft to palpation and nontender Auscultation: normal bowel sounds General: Yes no CVA tenderness Back/Spine/Pelvis Back: no CVA tenderness Thoracic/Lumbar Spine: paraspinal muscle tenderness on the right, lumbar spinal tenderness (chronic) and straight leg raise positive (slightly ) Skin Rashes: no rashes Extrem General: Yes no clubbing, cyanosis or edema Right upper extremity: shoulder/upper arm Details: tenderness Location: of the A-C joint and abnormal ROM (ROM limited due to pain - unable to raise right arm above shoulder level) Right lower extremity: knee Details: tenderness; no swelling Left lower extremity: knee Details: tenderness; no swelling Results Reviewed Results Reviewed: Laboratory Tests 07/07/23 10:07 WBC 4.7 L Hgb 11.7 L Hct 36.6 L Plt Count 162 ESR 20 Sodium 143 Potassium 4.1 Creatinine 0.81 Estimated GFR > 60 Fasting Glucose 98 Hemoglobin A1c % 5.4 Calcium 10.2 D AST 20 ALT 15 C-Reactive Protein 0.19 Triglycerides 272 H Cholesterol 187 LDL Cholesterol, Calc 89 HDL Cholesterol 44 25-OH Vitamin D Total 37.0 TSH 2.78 Ur Specific [place] 1.015 Urine Protein Negative Urine Glucose (UA) Negative Urine Blood Negative Urine Nitrite Negative Ur Leukocyte Esterase Negative Coding Level of Care Code Est Pt Level 4 (89427) Diagnoses Respiratory tract infection J98.8 Spondylosis of lumbosacral spine with radiculopathy M47.27 Right hip pain M25.551 Bilateral primary osteoarthritis of knee M17.0 Polyarthralgia M25.50 Pure hypercholesterolemia E78.00 Benign essential hypertension I10 Moderate persistent asthma without complication J45.40 Asthma severity: moderate Asthma persistence: persistent Asthma complication type: uncomplicated Impaired fasting glucose R73.01 Gastroesophageal reflux disease without esophagitis K21.9 Esophagitis presence: without esophagitis Esophageal stricture K22.2 Irritable bowel syndrome, unspecified type K58.9 Irritable bowel syndrome type: unspecified Vitamin D deficiency E55.9 Chronic interstitial cystitis N30.10 Nephrolithiasis N20.0 Insomnia, unspecified type G47.00 Insomnia type: unspecified Anxiety F41.9 Episode of recurrent major depressive disorder, unspecified depression episode severity F33.9 Depression Type: major depressive disorder Major depression recurrence: recurrent Active/Remission status: currently active Major depression episode severity: unspecified Obesity (BMI 30-39.9) E66.9
[2023-07-12 13:31] VITALS: BP 120/62; PULSE 95; O2SAT 90; BMI 38.7
== END 2023-07-12 14:43 | disposition home or self-care (01) ==
PROVIDERS: PCP Internal Medicine; Visit Provider Internal Medicine
DX: J98.8 Other specified respiratory disorders (principal); F33.9 Major depressive disorder, recurrent, unspecified; E66.9 Obesity, unspecified; Z68.38 Body mass index [BMI] 38.0-38.9, adult; M47.27 Other spondylosis with radiculopathy, lumbosacral region; M25.551 Pain in right hip; M17.0 Bilateral primary osteoarthritis of knee; M25.50 Pain in unspecified joint; E78.00 Pure hypercholesterolemia, unspecified; I10 Essential (primary) hypertension; J45.40 Moderate persistent asthma, uncomplicated; R73.01 Impaired fasting glucose
CPT/HCPCS: 99499

== ENCOUNTER 2023-07-12 14:50 | Outpatient (REF) | payer OTHER, SELFPAY ==
[2023-07-12 15:45] LABS: Influenza A PCR NEGATIVE (Negative); Influenza B PCR NEGATIVE (Negative); Resp Syncy Virus RNA Qual PCR NEGATIVE (Negative); SARS COV2 PCR INHOUSE NEGATIVE (Negative)
== END 2023-07-12 14:51 | disposition home or self-care (01) ==
LOC: HO.LAB 14:50
PROVIDERS: PCP Internal Medicine; Visit Provider Internal Medicine
DX: R09.89 Other specified symptoms and signs involving the circulatory and respiratory systems (principal); D64.9 Anemia, unspecified; E78.00 Pure hypercholesterolemia, unspecified; Z11.52 Encounter for screening for COVID-19; Z20.828 Contact with and (suspected) exposure to other viral communicable diseases; R06.02 Shortness of breath; R53.83 Other fatigue
CPT/HCPCS: 0241U

== ENCOUNTER 2023-07-14 11:35 | Outpatient (AMB) | payer OTHER, MEDICAID, SELFPAY ==
--- NOTE | 2023-07-14 11:39 | A.OFFVIS_ITS ---
Intake Vital Signs 07/14/23 11:51 Height 4 ft 11 in Weight 191 lb 6 oz BMI 38.6 BP 144/67 H Blood Pressure Location Rt brachial Position Sitting Pulse 94 Pulse Source Pulse Oximeter Pulse Oximetry (%) 97 Oxygen Delivery Method Room Air Intake Visit Reasons: PILL COUNT Intake Note: Celia comes in today for a pill count to oxycodone and a film count to belbuca, patient should have 6 films of belbuca and presents with 7 films which she last took today 07/14/23 at 6am. Oxycodone should have 0 tablets and presents with 0 which she last took today 07/14/23 at 4am. Pain today 6/10 Multifocal Button Generator Required: No Accompanied by: Self / Same As Patient Allergies Penicillins [PENICILLINS] Allergy (Intermediate, Verified 07/14/23 11:53) RASH HPI HPI Comments History of Present Illness Details Patient presents today for a pill and film count. For Belbuca, #6 films were expected, and #7 films were presented. For oxycodone, #0 pills were expected, and #0 pills were presented. This demonstrates a responsible attitude in regards to the medication regimen. Patient reports she did not receive script for oxycodone last month. Patient reports she was in increased pain due to not having oxycodone for the past month and decreased dose of Belbuca per patient's requests as she was attempting to decrease opioid intake. Patient reports her pain affects her ADLs, mobility and sleep. Reports pain 6/10 today. Patient reports increased back and knee pain with prolonged walking, standing and cold weather. We previously discussed neuromodulation with SCS vs ITDD trial and implants at greater lengths. Patient was hesitant towards these options. Patient had right TKA on 09/22/21. Reviewed treatments for knee pain, including PNS, genicular RFA, cortisone vs gel injections. Patient is hesitant towards injections at this time. Patient reports she went to [facility] ER last night for 2 day fever and cold symptoms. She was diagnosed with URI and started on azithromycin. Patient reports testing for RSV, Flu and COVID were normal. Past Procedures: 11/05/22: Right femoral nerve block- no right knee pain for 5 hours 07/07/22: Left L3-L4-L5 MB RFA-80% ongoi ng pain relief 06/16/22: Right L4-L5 TFESI-80% ongoing pain relief 05/26/22: Right L3-L4-L5 MB RFA- 80% heidy n relief 04/21/22: Right intra-articular hip ster oid injection -ongoing 50% pain relief . 08/19/21: Bilateral L3-L4-L5 Diagnostic MBBs ? 80% pain relief for 8 hours 06/17/21: Bilateral Diagnostic L3-L4-L5 MBBs ? 75% relief for 1 day PFSH Medical History Myalgia, upper arm Osteoarthritis of right knee Lumbar spondylosis Foot pain, bilateral BRIDGETTE (obstructive sleep apnea) Asthma Dyspnea KAMILA positive Urticaria Obesity (BMI 30-39.9) Depression Anxiety Insomnia Vitamin D deficiency Chronic interstitial cystitis Irritable bowel syndrome (IBS) Arthralgia Osteoarthritis Esophageal stricture GERD (gastroesophageal reflux disease) Left lumbar radiculopathy CAD (coronary artery disease) Pure hypercholesterolemia Benign essential hypertension Surgical History History of surgery History of total right knee replacement (09/22/21) Hx of cystoscopy Status post balloon dilatation of esophageal stricture (~2005) History of cardiac catheterization History of colonoscopy History of nephrolithotomy with removal of calculi History of tooth extraction Family History Father Hypertension Mother Hypertension Diabetes CVD (cardiovascular disease) Daughter No problems noted. Family/Other FH: mental illness Other Mental health problem Substance abuse Social History Housing: Apartment Are you a primary respiratory care specialist to a significant other at home: No Do you presently have visiting nurse or other home services: No Alcohol intake: never Comment: medicated, see MAR Patient Tobacco Use Status: Never used Tobacco e-Cigarette/Vaping Use: Never Used Second Hand Smoke Exposure: No service: No Current occupational status: disabled Cognitive needs: No Hearing needs: No Vision needs: Yes Review of Systems Const All systems reviewed & are unremarkable except as noted in HPI and below Physical Exam Vital Signs: Last Vital Signs Pulse 94 07/14/23 11:51 BP 144/67 H 07/14/23 11:51 Pulse Ox 97 07/14/23 11:51 Oxygen Delivery Method Room Air 07/14/23 11:51 BMI result Body Mass Index 38.6 General: Appears afebrile. Alert and oriented. Mood and affect appropriate. Follows and participates in conversation appropriately. Respiratory effort is unlabored. No cough. Able to transition from sit to stand unassisted. Resp Effort & Inspection: normal respiratory effort, able to speak in complete sentences, Actively coughing Quality: productive (occasionally), not labored, no respiratory distress, no stridor and symmetric chest movement Back/Spine/Pelvis Cervical Spine: cervical ROM normal and No Cervical spine tenderness Thoracic/Lumbar Spine: thoracic and lumbar spine normal to inspection, Lasegue's sign negative, straight leg raise negative bilaterally, pain with thoraco- lumbar ROM (mild), paraspinal muscle tenderness, thoraco-lumbar ROM limited, No thoracic spinal tenderness and lumbar spinal tenderness Pelvis: no buttock tenderness Sacroiliac joints: bilaterally nontender Extrem General: Yes capillary refill normal, Yes no clubbing, cyanosis or edema and Yes no calf tenderness Psych Appearance: grossly normal and well kempt Mental Status: mental status grossly normal Speech and movement: Normal speech and movement present and Clear speech present Affect: normal affect Attitude: cooperative Thought process: Normal thought process present Thought content: Normal thought content present, suicidality (none), no hallucinations and No Depressive thoughts present Insight: Good insight present (Psych) Judgement: Good judgement present (Psych) Assessment & Plan Assessment & Plan (1) Chronic pain syndrome: Code(s): G89.4 - Chronic pain syndrome (2) Opioid contract exists: Code(s): Z79.891 - correction (current) use of opiate analgesic (3) Lumbar spondylosis: Code(s): M47.816 - Spondylosis without myelopathy or radiculopathy, lumbar region (4) Bilateral primary osteoarthritis of knee: Code(s): M17.0 - Bilateral primary osteoarthritis of knee (5) Spondylosis of lumbosacral spine with radiculopathy: Code(s): M47.27 - Other spondylosis with radiculopathy, lumbosacral region (6) Long-term current use of opiate analgesic: Code(s): Z79.891 - correction (current) use of opiate analgesic Plan Patient has shown accountability for her medication regimen and the pill/patch count was accurate. There is no evidence of misuse, abuse or diversion at this time. MassPat reviewed and consistent. Script for oxycodone-acetaminophen 5-325 mg daily prn sent today and Belbuca 300 mcg BID with advanced date of 07/06/23. Continue to monitor for any side effects. Reviewed interventional treatments for patient's chronic pain generators, including neuromodulation, RFA, and gel injections. Patient will notify our office if she is interested. All questions and concerns have been answered and patient agreed with the plan. Follow up for pill count in 4-5 weeks and sooner if needed. Medications: Refilled oxycodone Partial Fill upon patient request. 5 mg PO DAILY 30 days PRN 30 tabs 0RF pain, severe G89.4 - Chronic pain syndrome, M47.27 - Other spondylosis with radiculopathy, lumbosacral region buprenorphine HCl Partial Fill upon patient request. 300 mcg buccal Q12H 30 days 60 ea 0RF pain G89.4 - Chronic pain syndrome, M17.0 - Bilateral primary osteoarthritis of knee, M47.27 - Other spondylosis with radiculopathy, lumbosacral region, Z79.891 - correction (current) use of opiate analgesic Coding Level of Care Code Est Pt Level 4 (18475) Diagnoses Chronic pain syndrome G89.4 Opioid contract exists Z79.891 Lumbar spondylosis M47.816 Bilateral primary osteoarthritis of knee M17.0 Spondylosis of lumbosacral spine with radiculopathy M47.27 Long-term current use of opiate analgesic Z79.891
[2023-07-14 11:51] VITALS: BP 144/67; PULSE 94; O2SAT 97; BMI 38.6
== END 2023-07-14 11:55 | disposition home or self-care (01) ==
PROVIDERS: PCP Internal Medicine; Visit Provider Nurse Practitioner Family
DX: G89.4 Chronic pain syndrome (principal); Z79.891 Long term (current) use of opiate analgesic; M47.816 Spondylosis without myelopathy or radiculopathy, lumbar region; M17.0 Bilateral primary osteoarthritis of knee; M47.27 Other spondylosis with radiculopathy, lumbosacral region
CPT/HCPCS: 99214

== ENCOUNTER → 2023-07-14 11:35 | Outpatient (BNVA) | payer OTHER, MEDICAID, SELFPAY | PROVIDERS: PCP Internal Medicine; Visit Provider Nurse Practitioner Family | DX: Z51.81 Encounter for therapeutic drug level monitoring (principal); M47.891 Other spondylosis, occipito-atlanto-axial region; M17.0 Bilateral primary osteoarthritis of knee; M47.27 Other spondylosis with radiculopathy, lumbosacral region; G89.4 Chronic pain syndrome; Z79.891 Long term (current) use of opiate analgesic | CPT/HCPCS: 99212 ==

== ENCOUNTER 2023-07-26 13:30 | Outpatient (AMB) | payer OTHER, MEDICAID, SELFPAY ==
--- NOTE | 2023-07-26 13:35 | A.OFFVIS_ITS ---
Intake Vital Signs 07/26/23 13:42 Height 4 ft 11 in Weight 192 lb 3.889 oz BMI 38.8 BP 130/80 Blood Pressure Location Rt brachial Position Sitting Pulse 73 Pulse Source Pulse Oximeter Pulse Oximetry (%) 97 Oxygen Delivery Method Room Air Intake Visit Reasons: Upper Extremity Myalgia/cm Intake Note: Patient last seen 05/27/23, presents today for follow up and test results. Supervisor Feed Mill Required: No Accompanied by: Self / Same As Patient Allergies Penicillins [PENICILLINS] Allergy (Intermediate, Verified 07/26/23 13:43) RASH HPI HPI Comments History of Present Illness Details Ms. Maria. Rey yoF, last here July 2021, returns for f/u of joint pain after prednisone course to assess fro improvement. She denies any improvement on prednisone and emphatically states she is still in pain. 05/27/2023 Visit: Ms. Maria. Rey yoJaciel, last here July 2021, returns with complaints of pain and numbness in her hands and some pain in the feet. She was previously evaluated for the same concerns and low titer positive KAMILA. Subsequent KAMILA testing however was negative. She does carry a diagnosis of chronic urticaria for which she was on prednisone for a year or so. Eventually she was able to be weaned off the prednisone with the help of dupilumab injections. She notes the hands are more numb at night and also with doing activities such as talking on the phone or doing housework. There is also some pain that occurs across the fingers associated with numbness. She gets pain in the feet mostly across the MTP regions with more standing on the feet. She has known osteoarthritis of the knees and had a right total knee replacement in September 2021. She sees pain management and manages her pains with Oxycodone 5mg QD PRN, Acetaminophen 650 Q8, Ibuprofen 600mg Q6, Tizanidine 2mg BID PRN. She complains that this regimen is not effective and that the oxycodone was reduced to one pill per day and is not enough. [facility] Medical History Myalgia, upper arm Osteoarthritis of right knee Lumbar spondylosis Foot pain, bilateral BRIDGETTE (obstructive sleep apnea) Asthma Dyspnea KAMILA positive Urticaria Obesity (BMI 30-39.9) Depression Anxiety Insomnia Vitamin D deficiency Chronic interstitial cystitis Irritable bowel syndrome (IBS) Arthralgia Osteoarthritis Esophageal stricture GERD (gastroesophageal reflux disease) Left lumbar radiculopathy CAD (coronary artery disease) Pure hypercholesterolemia Benign essential hypertension Surgical History History of surgery History of total right knee replacement (09/22/21) Hx of cystoscopy Status post balloon dilatation of esophageal stricture (~2005) History of cardiac catheterization History of colonoscopy History of nephrolithotomy with removal of calculi History of tooth extraction Family History Father Hypertension Mother Hypertension Diabetes CVD (cardiovascular disease) Daughter No problems noted. Family/Other FH: mental illness Other Mental health problem Substance abuse Social History Housing: Apartment Are you a primary ocular care technologist to a significant other at home: No Do you presently have visiting nurse or other home services: No Alcohol intake: never Comment: medicated, see MAR Patient Tobacco Use Status: Never used Tobacco e-Cigarette/Vaping Use: Never Used Second Hand Smoke Exposure: No service: No Current occupational status: disabled Cognitive needs: No Hearing needs: No Vision needs: Yes Review of Systems Const All systems reviewed & are unremarkable except as noted in HPI and below Physical Exam Vital Signs: Last Vital Signs Pulse 73 07/26/23 13:42 BP 130/80 07/26/23 13:42 Pulse Ox 97 07/26/23 13:42 Oxygen Delivery Method Room Air 07/26/23 13:42 BMI result Body Mass Index 38.8 APPEARANCE: Patient in no acute distress EYES no redness, eyelids normal EXTREMITIES: No edema, no calf tenderness, normal peripheral pulses. NEURO: Oriented and alert x3. No focal weakness. Reflexes symmetric. Gait normal. SKIN: No inflammatory or neoplastic lesions. Normal color and turgor JOINT EXAM:.?? Cervical Spine:.? Full range of motion without pain; no tenderness. Thoracic Spine:.? No scoliosis.? No tenderness on palpation. Lumbar Spine:.? Alignment normal.? Full range of motion without pain, no tenderness. Chest Wall:.? No tenderness, swelling, increased warmth or erythema. Hands: Right: There is normal pain-free range of motion. There is no MCP tenderness or swelling. There is mild bony enlargement at the thumb IP in all the PIP is in the 2nd slightly tender. There is no thenar atrophy or sensory loss. There is no flexor tendon triggering or tenderness. Some slight bony enlargement without tenderness at the 2nd 3rd PIP joints. Left: Normal pain- free range of motion. There is slight bony enlargement at the thumb IP. The 3rd 4th PIP of slight tenderness. There is some mild bony enlargement at all the DIP is in the 2nd 3rd have mild tenderness. No thenar atrophy or sensory loss. Wrists:.? Slight pain with flexion at 80 degrees with some minimal tenderness but no swelling. Bilaterally positive Phalen's test negative Tinel sign. Elbows: Normal pain-free range of motion without tenderness, swelling, increased warmth or erythema. Shoulders:.?? Able to lift arms above head with mild discomfort. Mild tenderness at AC joint, some weakness 3/5 but no swelling, increased warmth or erythema. Hip bursa:.? Mild tenderness. Knees: Right: Mild pain at the extremes of flexion extension with some mild medial tenderness. There is moderate patellofemoral crepitus but no effusion, redness or warmth. Left: Normal pain-free range of motion with mild patellofemoral crepitus and minimal medial tenderness but no effusion, soft tissue swelling, increased warmth or erythema.? Ankles:.? Normal pain-free range of motion without tenderness, swelling, increased warmth or erythema. Feet:.? Normal pain-free range of motion. There is mild tenderness at the 1st MTP bilaterally and in the right medial heel. There is slight bony enlargement at the 1st MTP but no soft tissue swelling. There is some slight medial heel tenderness on the right without swelling or redness. Otherwise in other joints there is no tenderness, swelling, increased warmth or erythema. Tender points:.? No tenderness to digital palpation at the occiput, trapezius, second rib, lateral epicondyle, knees, greater trochanter and gluteal area bilaterally. ? Results Reviewed Results Reviewed: Laboratory Tests 07/07/23 10:07 WBC 4.7 L RBC 4.37 Hgb 11.7 L Hct 36.6 L ESR 20 AST 20 ALT 15 C-Reactive Protein 0.19 25-OH Vitamin D Total 37.0 Assessment & Plan Assessment & Plan (1) Bilateral hand numbness: Code(s): R20.0 - Anesthesia of skin (2) KAMILA positive: Comment: Subsequently negative in 2020 Code(s): R76.8 - Other specified abnormal immunological findings in serum (3) Bilateral primary osteoarthritis of knee: Code(s): M17.0 - Bilateral primary osteoarthritis of knee (4) Foot pain, bilateral: Code(s): M79.671 - Pain in right foot; M79.672 - Pain in left foot (5) Myalgia, upper arm: Code(s): M79.18 - Myalgia, other site Plan Ms. Yang denies any improvement while she was on prednisone for her joint pain. I discussed with the patient that this is less likely inflammatory reason for her pain. Her pain is largely a combination of osteoarthritis, fibromyalgia and neuropathy. She will continue her current medication regimen including her oxycodone 5 mg p.r.n.. She will continue to follow with pain management. I encouraged light activity and stretches. Prior assess 05/27/2023 The patient has had a year a so of hand numbness and pain. On exam there is some mild bony enlargement at the interphalangeal joints suggesting osteoarthritis. Imaging also confirms left knee OA and Right shoulder OA. She had a positive KAMILA in the past that then became negative and has no evidence for an active inflammatory arthritis presently. The pain in the feet is mostly across the 1st MTP joints. She does have some osteoarthritis in the 1st MTP joints. She is complainig today upper arm muscle tenderness. I think treating with some prednisone is reasonable. Will reassess after prednisone to see if improved. I will order CK, ESR, CRP to assess for muscle involvement though unlikely. The patient should continue to follow with ortho and pain management. I discussed with patient that given the multiple medication currently used to manage her pain, there is not much else that can be recommended. Mild activity levels and dietary changes may help. I think a good portion of pain is from a deconditioned status. F/u in 6 month Coding Level of Care Code Est Pt Level 3 (11827) Diagnoses Bilateral hand numbness R20.0 KAMILA positive R76.8 Bilateral primary osteoarthritis of knee M17.0 Foot pain, bilateral M79.671; M79.672 Myalgia, upper arm M79.18
[2023-07-26 13:42] VITALS: BP 130/80; PULSE 73; O2SAT 97; BMI 38.8
== END 2023-07-26 14:02 | disposition home or self-care (01) ==
PROVIDERS: PCP Internal Medicine; Visit Provider Nurse Practitioner Family
DX: R20.0 Anesthesia of skin (principal); R76.8 Other specified abnormal immunological findings in serum; M17.0 Bilateral primary osteoarthritis of knee; M79.671 Pain in right foot; M79.672 Pain in left foot; M79.18 Myalgia, other site
CPT/HCPCS: 99213

== ENCOUNTER → 2023-07-26 13:30 | Outpatient (BNVA) | payer OTHER, MEDICAID, SELFPAY | PROVIDERS: PCP Internal Medicine; Visit Provider Nurse Practitioner Family | DX: M79.18 Myalgia, other site (principal); R20.0 Anesthesia of skin; M17.0 Bilateral primary osteoarthritis of knee; M79.671 Pain in right foot; M79.672 Pain in left foot; R76.8 Other specified abnormal immunological findings in serum | CPT/HCPCS: 99212 ==

== ENCOUNTER 2023-07-27 12:22 | Outpatient (REF) | payer OTHER, MEDICAID, SELFPAY | END 2023-07-27 12:23 | disposition home or self-care (01) | LOC: HO.MAMMO 12:22 | PROVIDERS: PCP Internal Medicine; Visit Provider Internal Medicine | DX: Z12.31 Encounter for screening mammogram for malignant neoplasm of breast (principal) | CPT/HCPCS: 77063; 77067 ==

== ENCOUNTER → 2023-07-27 12:30 | Outpatient (BNV) | payer OTHER, MEDICAID, SELFPAY | PROVIDERS: PCP Internal Medicine; Visit Provider Radiology Diagnostic Radiology | DX: Z12.31 Encounter for screening mammogram for malignant neoplasm of breast (principal) | CPT/HCPCS: 77063; 77067 ==

== ENCOUNTER 2023-08-08 11:43 | Outpatient (AMB) | payer OTHER, MEDICAID, SELFPAY ==
--- NOTE | 2023-08-08 11:53 | A.OFFVIS_ITS ---
Vital Signs 08/08/23 12:01 Height 4 ft 11 in Weight 192 lb 6 oz BMI 38.9 BP 125/61 Blood Pressure Location Rt brachial Position Sitting Pulse 80 Pulse Source Pulse Oximeter Pulse Oximetry (%) 97 Oxygen Delivery Method Room Air Intake Visit Reasons: Pill Count Intake Note: Celia comes in today for a pill count to oxycodone and a film count to belbuca, patient should have 22films of belbuca and presents with 21 films which she last took today 08/08/23 at 7:30 am, oxycodone should have 5 tabs and presents with 21 which she last took 2 days ago on 08/06/23. Pain today 5/10 Insulation Power Unit Tender Required: No Allergies Penicillins [PENICILLINS] Allergy (Intermediate, Verified 08/08/23 12:02) RASH HPI Comments Details: Patient presents today for a pill and film count. For Belbuca, #22 films were expected, and #21 films were presented. For oxycodone, #5 pills were expected, and #21 pills were presented. This demonstrates a responsible attitude in regards to the medication regimen. Patient reports minimal analgesia on current regime with Belbuca. She requests to decrease Belbuca dose and is aware of increase in her pain symptoms. Patient reports her multiple joint pain which affect her ADLs, mobility and sleep. Reports pain 5/10 today. Patient reports increased back and knee pain with prolonged walking, standing and movements. Patient reports she received right shoulder injections in the past in outside clinic and would like to receive therapeutic injection as next steps. We previously discussed neuromodulation with SCS vs ITDD trial and implants. Patient had right TKA on 09/22/21. Reviewed treatments for knee pain, including PNS, genicular RFA, cortisone vs gel injections. Patient is hesitant towards injections or trial/implants at this time. Past Procedures: 11/05/22: Right femoral nerve block- no right knee pain for 5 hours 07/07/22: Left L3-L4-L5 MB RFA-80% ongoing pain relief 06/16/22: Right L4-L5 TFESI-80% ongoing pain relief 05/26/22: Right L3-L4-L5 MB RFA- 80% pain relief 04/21/22: Right intra-articular hip steroid injection -ongoing 50% pain relief . 08/19/21: Bilateral L3-L4-L5 Diagnostic MBBs ? 80% pain relief for 8 hours 06/17/21: Bilateral Diagnostic L3-L4-L5 MBBs ? 75% relief for 1 day [facility] Medical History Myalgia, upper arm Osteoarthritis of right knee Lumbar spondylosis Foot pain, bilateral BRIDGETTE (obstructive sleep apnea) Asthma Dyspnea KAMILA positive Urticaria Obesity (BMI 30-39.9) Depression Anxiety Insomnia Vitamin D deficiency Chronic interstitial cystitis Irritable bowel syndrome (IBS) Arthralgia Osteoarthritis Esophageal stricture GERD (gastroesophageal reflux disease) Left lumbar radiculopathy CAD (coronary artery disease) Pure hypercholesterolemia Benign essential hypertension Surgical History History of surgery History of total right knee replacement (09/22/21) Hx of cystoscopy Status post balloon dilatation of esophageal stricture (~2005) History of cardiac catheterization History of colonoscopy History of nephrolithotomy with removal of calculi History of tooth extraction Family History Father Hypertension Mother Hypertension Diabetes CVD (cardiovascular disease) Daughter No problems noted. Family/Other FH: mental illness Other Mental health problem Substance abuse Social History Housing: Apartment Are you a primary care navigator to a significant other at home: No Do you presently have visiting nurse or other home services: No Alcohol intake: never Comment: medicated, see MAR Patient Tobacco Use Status: Never used Tobacco e-Cigarette/Vaping Use: Never Used Second Hand Smoke Exposure: No service: No Current occupational status: disabled Cognitive needs: No Hearing needs: No Vision needs: Yes Review of Systems Const All systems reviewed & are unremarkable except as noted in HPI and below Physical Exam General: Appears afebrile. Alert and oriented. Mood and affect appropriate. Follows and participates in conversation appropriately. Respiratory effort is unlabored. No cough. Able to transition from sit to stand unassisted. Resp Effort & Inspection: normal respiratory effort, able to speak in complete sentences, Actively coughing Quality: productive (occasionally), not labored, no respiratory distress, no stridor and symmetric chest movement Back/Spine/Pelvis Cervical Spine: cervical ROM normal and No Cervical spine tenderness Thoracic/Lumbar Spine: thoracic and lumbar spine normal to inspection, Lasegue's sign negative, straight leg raise negative bilaterally, pain with thoraco- lumbar ROM (mild), paraspinal muscle tenderness, thoraco-lumbar ROM limited, No thoracic spinal tenderness and lumbar spinal tenderness Pelvis: no buttock tenderness Sacroiliac joints: bilaterally nontender Extrem General: Yes capillary refill normal, Yes no clubbing, cyanosis or edema and Yes no calf tenderness Right upper extremity: shoulder/upper arm (Limited ROM due to pain. Pain with overhead reaches.) Details: tenderness Location: of the A-C joint, over the biceps tendon and over the subacromial bursa and crepitus; no swelling, no ecchymosis, no deformity and no unusual warmth Psych Appearance: grossly normal and well kempt Mental Status: mental status grossly normal Speech and movement: Normal speech and movement present and Clear speech present Affect: normal affect Attitude: cooperative Thought process: Normal thought process present Thought content: Normal thought content present, suicidality (none), no hallucinations and No Depressive thoughts present Insight: Good insight present (Psych) Judgement: Good judgement present (Psych) Results Reviewed Results Reviewed: XR SHOULDER, RIGHT 12/30/22 CLINICAL INFORMATION: Pain in right shoulder COMPARISON: 05/29/2019 FINDINGS: Rightward curvature of the upper thoracic spine with advanced degenerative changes. Mild degenerative changes in the acromioclavicular joint. Mild hypertrophic change along the inferior aspect of the glenoid. No abnormal soft tissue calcifications identified adjacent to the humeral head. IMPRESSION: Mild degenerative changes. Assessment & Plan Assessment & Plan (1) Bilateral primary osteoarthritis of knee: Code(s): M17.0 - Bilateral primary osteoarthritis of knee Category: Medical (2) Chronic pain syndrome: Code(s): G89.4 - Chronic pain syndrome Category: Medical (3) Opioid contract exists: Code(s): Z79.891 - terminal operator (current) use of opiate analgesic Category: Medical (4) Lumbar spondylosis: Code(s): M47.816 - Spondylosis without myelopathy or radiculopathy, lumbar region Category: Medical (5) Spondylosis of lumbosacral spine with radiculopathy: Code(s): M47.27 - Other spondylosis with radiculopathy, lumbosacral region Category: Medical (6) Long-term current use of opiate analgesic: Code(s): Z79.891 - skilled nursing (current) use of opiate analgesic Category: Medical (7) Right shoulder pain: Code(s): M25.511 - Pain in right shoulder Category: Medical Qualifiers: Chronicity: unspecified Qualified Code(s): M25.511 - Pain in right shoulder (8) Polyarthralgia: Code(s): M25.50 - Pain in unspecified joint Category: Medical (9) Osteoarthritis of right shoulder: Code(s): M19.011 - Primary osteoarthritis, right shoulder Category: Medical Plan Patient has shown accountability for her medication regimen and the pill/patch count was accurate. There is no evidence of misuse, abuse or diversion at this time. MassPat reviewed and consistent. I will hold off on refilling his opioid medication due to surplus medication. Patient will call us to let us know when she is down to 5 pills, and I will send a refill at that time. For Belbuca, we will titrate down to 150 mcg BID per patient's request with advanced date of 08/17/23. Continue to monitor for any side effects. Reviewed interventional treatments for patient's chronic pain generators, inc luding neuromodulation, RFA, and gel injections. We will proceed with Right intra-articular shoulder steroid injection with local and US guidance. Expectations, risks and benefits were reviewed. Patient is aware she will be contacted to schedule this procedure. All questions and concerns have been answered and patient agreed with the plan. Follow up for pill count in 4-5 weeks and sooner if needed. Medications: Changed From buprenorphine HCl Partial Fill upon patient request. 300 mcg buccal Q12H 30 days 60 ea 0RF pain G89.4 - Chronic pain syndrome, M17.0 - Bilateral primary osteoarthritis of knee, M54.9 - Dorsalgia, unspecified, Z79.891 - skilled nursing (current) use of opiate analgesic To buprenorphine HCl 150 mcg buccal Q12H 30 days 60 ea 0RF pain G89.4 - Chronic pain syndrome, M17.0 - Bilateral primary osteoarthritis of knee, M54.9 - Dorsalgia, unspecified, Z79.891 - skilled nursing (current) use of opiate analgesic
[2023-08-08 12:01] VITALS: BP 125/61; PULSE 80; O2SAT 97; BMI 38.9
== END 2023-08-08 12:15 | disposition home or self-care (01) ==
LOC: HO.PMC 11:51
PROVIDERS: PCP Internal Medicine; Visit Provider Nurse Practitioner Family
DX: G89.4 Chronic pain syndrome (principal); M17.0 Bilateral primary osteoarthritis of knee; M47.816 Spondylosis without myelopathy or radiculopathy, lumbar region; Z79.891 Long term (current) use of opiate analgesic; M47.27 Other spondylosis with radiculopathy, lumbosacral region; M25.511 Pain in right shoulder; M25.50 Pain in unspecified joint; M19.011 Primary osteoarthritis, right shoulder
CPT/HCPCS: 99214

== ENCOUNTER → 2023-08-08 11:51 | Outpatient (BNVA) | payer OTHER, MEDICAID, SELFPAY | PROVIDERS: PCP Internal Medicine; Visit Provider Nurse Practitioner Family | DX: Z51.81 Encounter for therapeutic drug level monitoring (principal); M17.0 Bilateral primary osteoarthritis of knee; M47.816 Spondylosis without myelopathy or radiculopathy, lumbar region; M47.27 Other spondylosis with radiculopathy, lumbosacral region; M25.511 Pain in right shoulder; M25.50 Pain in unspecified joint; M19.011 Primary osteoarthritis, right shoulder; G89.4 Chronic pain syndrome; Z79.891 Long term (current) use of opiate analgesic | CPT/HCPCS: 99212 ==

== ENCOUNTER 2023-08-26 10:34 | Outpatient (AMB) | payer OTHER, MEDICAID, SELFPAY ==
[2023-08-26 10:44] VITALS: BP 153/67; PULSE 79; RESP 14; O2SAT 96; BMI 38.8
--- NOTE | 2023-08-26 10:44 | A.OFFVIS_ITS ---
Vital Signs 08/26/23 10:44 Height 4 ft 11 in Weight 192 lb BMI 38.8 BP 153/67 H Blood Pressure Location Lt brachial Position Sitting Respiration 14 Pulse 79 Pulse Source Pulse Oximeter Pulse Oximetry (%) 96 Oxygen Delivery Method Room Air Intake Visit Reasons: right intraarticular shoulder injection Allergies Penicillins [PENICILLINS] Allergy (Intermediate, Verified 08/26/23 10:46) RASH Medication List - Last Reconciled 08/26/23 by Heather An LPN acetaminophen 650 mg (2 x 325 mg) PO Q6H PRN 30 days [ADULT PULL-UPS As directed] albuterol sulfate 90 mcg/actuation 2 puffs PO Q6H PRN albuterol sulfate 2.5 mg (3 mL) inhalation Q6H PRN 30 days albuterol sulfate 90 mcg/actuation 2 inhalations inhalation Q6H PRN 30 days aspirin 81 mg PO DAILY atorvastatin 10 mg PO BEDTIME 90 days blood pressure kit-extra large As directed buprenorphine HCl 150 mcg buccal Q12H 30 days calcium carbonate (Oyster Shell Calcium) 500 mg PO DAILY 90 days escitalopram oxalate 20 mg PO DAILY fluticasone furoate-vilanterol 200-25 mcg/dose (Breo Ellipta) 1 ea inhalation DAILY fluticasone propion-salmeterol 115-21 mcg/actuation (Advair HFA) 2 puffs inhalation Q12H 30 days ibuprofen 600 mg PO Q8H PRN ketotifen fumarate 0.025%(0.035%) drps ophthalmic (eye) lidocaine 5% leave on most painful area for up to 12 hrs topically daily; loratadine 10 mg PO DAILY PRN 90 days mirabegron ER (Myrbetriq) 50 mg PO DAILY montelukast 10 mg PO DAILY naloxone 4 mg/actuation (Narcan) 4 mg intranasal Q3M PRN [NEBULIZER and all related supplies As directed] omeprazole 40 mg PO DAILY 90 days oxycodone 5 mg PO DAILY PRN 30 days prazosin 1 mg PO BEDTIME quetiapine 50 mg PO BEDTIME tizanidine 2 mg PO BID PRN trazodone 200 mg PO BEDTIME PRN HPI HPI right intraarticular shoulder injection: Details: 68-year-old female who presents today to the office for a right intra-articular shoulder injection. Denies any recent cough, cold, infection, fever or other significant changes in medical history since last office visit. Past Procedures: 07/07/22: Left L3-L4-L5 MB RFA-80% pain relief 06/16/22: Right L4-L5 TFESI-80% ongoing pain relief 05/26/22: Right L3-L4-L5 MB RFA-0% pain relief status post 8 days ago, localized site pain. 04/21/22: Hip Intra-articular Injection, fluoroscopy guided, Right: %relief. 08/19/21: Bilateral L3-L4-L5 Diagnostic MBBs ? 80% pain relief for 8 hours 06/17/21: Bilateral Diagnostic L3-L4-L5 MBBs ? 75% relief for 1 day [facility] Medical History Myalgia, upper arm Osteoarthritis of right knee Lumbar spondylosis Foot pain, bilateral BRIDGETTE (obstructive sleep apnea) Asthma Dyspnea KAMILA positive Urticaria Obesity (BMI 30-39.9) Depression Anxiety Insomnia Vitamin D deficiency Chronic interstitial cystitis Irritable bowel syndrome (IBS) Arthralgia Osteoarthritis Esophageal stricture GERD (gastroesophageal reflux disease) Left lumbar radiculopathy CAD (coronary artery disease) Pure hypercholesterolemia Benign essential hypertension Surgical History History of surgery History of total right knee replacement (09/22/21) Hx of cystoscopy Status post balloon dilatation of esophageal stricture (~2005) History of cardiac catheterization History of colonoscopy History of nephrolithotomy with removal of calculi History of tooth extraction Family History Father Hypertension Mother Hypertension Diabetes CVD (cardiovascular disease) Daughter No problems noted. Family/Other FH: mental illness Other Mental health problem Substance abuse Social History Housing: Apartment Are you a primary home care coordinator to a significant other at home: No Do you presently have visiting nurse or other home services: No Alcohol intake: never Comment: medicated, see MAR Patient Tobacco Use Status: Never used Tobacco e-Cigarette/Vaping Use: Never Used Second Hand Smoke Exposure: No service: No Current occupational status: disabled Cognitive needs: No Hearing needs: No Vision needs: Yes Review of Systems Const All systems reviewed & are unremarkable except as noted in HPI and below Physical Exam Vital Signs: Last Vital Signs Pulse 79 08/26/23 10:44 Resp 14 08/26/23 10:44 BP 153/67 H 08/26/23 10:44 Pulse Ox 96 08/26/23 10:44 Oxygen Delivery Method Room Air 08/26/23 10:44 BMI result Body Mass Index 38.8 General: Appears afebrile. Alert and oriented. Mood and affect appropriate. Follows and participates in conversation appropriately. Respiratory effort is unlabored. Able to transition from sit to stand unassisted. Ambulates with bilaterally normal heel strike and toe off. Office Procedures Joint Injection/Drain Joint Injection/Drain Details: Right subacromial bursa injection, US guided. Primary Site: right shoulder Prep: site was prepped using sterile technique Injected: 40 mg of, Kenalog, with 3 mL of (0.25% ropivacaine) and in the subcromial space (right ) Approach Used: posterolateral Procedure: The patient tolerated the procedure well Coding Details: An ultrasound image of the injection was taken and stored in the permanent record. 75074 - Acromioclavicular with ultrasound guidance Procedure code (CPT) selection complete Results Reviewed Results Reviewed: No imaging is available for review. Assessment & Plan Assessment & Plan (1) Right shoulder pain: Code(s): M25.511 - Pain in right shoulder Category: Medical Qualifiers: Chronicity: unspecified Qualified Code(s): M25.511 - Pain in right shoulder Plan Patient is status post right subacromial bursa injection, US guided. Patient tolerated procedure well and was discharged home in stable condition with discharge instructions. All questions were answered. We will follow-up in two weeks via telephone or in clinic to assess response to therapy. A follow-up appointment was made during today's visit. Scribed for Dr. Pacheco by Jorden Vasquez, medical malpractice paralegal, on 08/26/2023. I, Dr. Pacheco, have personally reviewed and agree with the information entered by the scribe. Coding Level of Care Code Procedure Only Diagnoses Right shoulder pain, unspecified chronicity M25.511 Chronicity: unspecified CPT Codes Coding - Joint 6: 93617 - Acromioclavicular with ultrasound guidance ([id number])
== END 2023-08-26 11:03 | disposition home or self-care (01) ==
PROVIDERS: PCP Internal Medicine; Visit Provider Internal Medicine
DX: M25.511 Pain in right shoulder (principal)
CPT/HCPCS: 20611

== ENCOUNTER → 2023-08-26 10:34 | Outpatient (BNVA) | payer OTHER, MEDICAID, SELFPAY | PROVIDERS: PCP Internal Medicine; Visit Provider Internal Medicine | DX: M25.511 Pain in right shoulder (principal) | CPT/HCPCS: 20611; J2795; J3301 ==

== ENCOUNTER 2023-09-05 11:26 | Outpatient (AMB) | payer OTHER, MEDICAID, SELFPAY ==
--- NOTE | 2023-09-05 11:28 | MHC.OFFVIS ---
Vital Signs 09/05/23 11:43 Height 4 ft 11 in Weight 188 lb 2 oz BMI 38.0 BP 197/80 H Blood Pressure Location Rt brachial Position Sitting Pulse 62 Pulse Source Pulse Oximeter Pulse Oximetry (%) 98 Oxygen Delivery Method Room Air Intake Visit Reasons: PILL COUNT Intake Note: Celia comes in today for a film count to belbuca, and a pill count to oxycodone. Patient should have 32 films and presents with 27 films which she last took today 09/05/23 at 6:20am. Oxy should have 30 tablets and presents with 30 tablets which she states she last took today 09/05/23 at 9:30am. Patient was 5 films short today at count, states that she doesn't remember if she took extra films. Pain today 05/28 Supervisor Drying Required: No Accompanied by: Self / Same As Patient Allergies Penicillins [PENICILLINS] Allergy (Intermediate, Verified 09/05/23 11:42) RASH HPI Comments Details: Patient presents today for a pill and film count. For Belbuca, #32 films were expected, and #27 films were presented. For oxycodone, #30 pills were expected, and #30 pills were presented. This demonstrates a responsible attitude in regards to the medication regimen. Patient reports minimal analgesia on current regime with decreased dose of Belbuca. She went through withdrawal symptoms and notified our office on 08/29/23. Patient reports mild improvement in her symptoms but reports ongoing diarrhea each time she takes Belbuca 150 mcg film. Patient reports this creates significant inconveniences, especially this weekend when she went to [place]. She is also hesitant to return to original Belbuca 300 mcg BID dose. She does admit to cutting Belbuca films in half and taken it at half doses as well. We discussed opioid rotation and will proceed with discontinuing Belbuca and increasing oxycodone 5 mg daily to TID prn. Patient also underwent right subacromial bursa injection, US guided on 08/26/[address] Pacheco with good results, decreased pain and improved ROM and functioning. Denies any recent cough, cold, infection, fever, any significant changes in her medical history, medications or recent hospitalizations. Past Procedures: 08/26/23: Right subacromial bursa injection, US guided-80% ongoing pain relief 11/05/22: Right femoral nerve block- no right knee pain for 5 hours 07/07/22: Left L3-L4-L5 MB RFA-80% ongoing pain relief 06/16/22: Right L4-L5 TFESI-80% ongoing pain relief 05/26/22: Right L3-L4-L5 MB RFA- 80% pain relief 04/21/22: Right intra-articular hip steroid injection -ongoing 50% pain relief . 08/19/21: Bilateral L3-L4-L5 Diagnostic MBBs ? 80% pain relief for 8 hours 06/17/21: Bilateral Diagnostic L3-L4-L5 MBBs ? 75% relief for 1 day FORMERLY [facility], [facility] Medical History Myalgia, upper arm Osteoarthritis of right knee Lumbar spondylosis Foot pain, bilateral BRIDGETTE (obstructive sleep apnea) Asthma Dyspnea KAMILA positive Urticaria Obesity (BMI 30-39.9) Depression Anxiety Insomnia Vitamin D deficiency Chronic interstitial cystitis Irritable bowel syndrome (IBS) Arthralgia Osteoarthritis Esophageal stricture GERD (gastroesophageal reflux disease) Left lumbar radiculopathy CAD (coronary artery disease) Pure hypercholesterolemia Benign essential hypertension Surgical History History of surgery History of total right knee replacement (09/22/21) Hx of cystoscopy Status post balloon dilatation of esophageal stricture (~2005) History of cardiac catheterization History of colonoscopy History of nephrolithotomy with removal of calculi History of tooth extraction Family History Father Hypertension Mother Hypertension Diabetes CVD (cardiovascular disease) Daughter No problems noted. Family/Other FH: mental illness Other Mental health problem Substance abuse Social History Housing: Apartment Are you a primary care team coordinator scheduler to a significant other at home: No Do you presently have visiting nurse or other home services: No Alcohol intake: never Comment: medicated, see MAR Patient Tobacco Use Status: Never used Tobacco e-Cigarette/Vaping Use: Never Used Second Hand Smoke Exposure: No service: No Current occupational status: disabled Cognitive needs: No Hearing needs: No Vision needs: Yes Review of Systems Const All systems reviewed & are unremarkable except as noted in HPI and below Physical Exam Vital Signs: Last Vital Signs Pulse 62 05/20/24 11:43 BP 197/80 H 09/05/23 11:43 Pulse Ox 98 09/05/23 11:43 Oxygen Delivery Method Room Air 09/05/23 11:43 BMI result Body Mass Index 38.0 General: Appears afebrile. Alert and oriented. Mood and affect appropriate. Follows and participates in conversation appropriately. Respiratory effort is unlabored. No cough. Able to transition from sit to stand unassisted. Resp Effort & Inspection: normal respiratory effort, able to speak in complete sentences, Actively coughing Quality: productive (occasionally), not labored, no respiratory distress, no stridor and symmetric chest movement Back/Spine/Pelvis Cervical Spine: cervical ROM normal and No Cervical spine tenderness Thoracic/Lumbar Spine: thoracic and lumbar spine normal to inspection, Lasegue's sign negative, straight leg raise negative bilaterally, pain with thoraco-lumbar ROM (mild), paraspinal muscle tenderness, thoraco-lumbar ROM limited, No thoracic spinal tenderness and lumbar spinal tenderness Pelvis: no buttock tenderness Sacroiliac joints: bilaterally nontender Extrem General: Yes capillary refill normal, Yes no clubbing, cyanosis or edema and Yes no calf tenderness Psych Appearance: grossly normal and well kempt Mental Status: mental status grossly normal Speech and movement: Normal speech and movement present and Clear speech present Affect: normal affect Attitude: cooperative Thought process: Normal thought process present Thought content: Normal thought content present, suicidality (none), no hallucinations and No Depressive thoughts present Insight: Good insight present (Psych) Judgement: Good judgement present (Psych) Assessment & Plan Assessment & Plan (1) Bilateral primary osteoarthritis of knee: Code(s): M17.0 - Bilateral primary osteoarthritis of knee Category: Medical (2) Chronic pain syndrome: Code(s): G89.4 - Chronic pain syndrome Category: Medical (3) Opioid contract exists: Code(s): Z79.891 - ocean transportation intermediary (current) use of opiate analgesic Category: Medical (4) Lumbar spondylosis: Code(s): M47.816 - Spondylosis without myelopathy or radiculopathy, lumbar region Category: Medical (5) Spondylosis of lumbosacral spine with radiculopathy: Code(s): M47.27 - Other spondylosis with radiculopathy, lumbosacral region Category: Medical (6) Right shoulder pain: Code(s): M25.511 - Pain in right shoulder Category: Medical Qualifiers: Chronicity: unspecified Qualified Code(s): M25.511 - Pain in right shoulder Plan Patient has shown accountability for her medication regimen and the pill count was correct and film count was off today. Per patient's request we decreased her Belbuca dose by half at previous visit. She developed temporary withdrawal symptoms and was trying to manage it with cutting extra Belbuca films in half but cannot recall if she took more than 2 films per day. Patient would like to discontinue Belbuca altogether due to unpleasant GI symptoms with lower dose. There is no evidence of misuse, abuse or diversion at this time. MassPat reviewed and consistent. Discontinue Belbuca 150 mcg BID. Films were discounted in presence of two staff members per office opioid destroyer policy. Patient will start oxycodone 5 mg TID prn. Currently she has #30 tabs for 10 days. Next script is sent with advanced date of 09/14/23. Continue to monitor for any side effects. Patient reports good pain relief with improved ROM, functioning and sleep with recent Right subacromial bursa injection, US guided. All questions and concerns have been answered and patient agreed with the plan. Follow up for pill count in 4 weeks and sooner if needed. Medications: Changed From oxycodone Partial Fill upon patient request. 5 mg PO DAILY 30 days PRN 30 tabs 0RF pain, severe G89.4 - Chronic pain syndrome, M17.0 - Bilateral primary osteoarthritis of knee, M47.27 - Other spondylosis with radiculopathy, lumbosacral region To oxycodone Partial Fill upon patient request. 5 mg PO Q8H 30 days PRN 90 tabs 0RF pain (scale score 7-10) G89.4 - Chronic pain syndrome, M17.0 - Bilateral primary osteoarthritis of knee, M47.27 - Other spondylosis with radiculopathy, lumbosacral region Discontinued buprenorphine HCl Discontinued Reason: Patient Completed Course 150 mcg buccal Q12H 30 days 60 ea 0RF pain G89.4 - Chronic pain syndrome, M17.0 - Bilateral primary osteoarthritis of knee, M54.9 - Dorsalgia, unspecified, Z79.891 - ocean transportation intermediary (current) use of opiate analgesic Coding Level of Care Code Est Pt Level 4 (69492) Diagnoses Bilateral primary osteoarthritis of knee M17.0 Chronic pain syndrome G89.4 Opioid contract exists Z79.891 Lumbar spondylosis M47.816 Spondylosis of lumbosacral spine with radiculopathy M47.27 Right shoulder pain, unspecified chronicity M25.511 Chronicity: unspecified
[2023-09-05 11:43] VITALS: BP 197/80; PULSE 62; O2SAT 98; BMI 38.0
== END 2023-09-05 11:54 | disposition home or self-care (01) ==
PROVIDERS: PCP Internal Medicine; Visit Provider Nurse Practitioner Family
DX: G89.4 Chronic pain syndrome (principal); M17.0 Bilateral primary osteoarthritis of knee; M47.816 Spondylosis without myelopathy or radiculopathy, lumbar region; Z79.891 Long term (current) use of opiate analgesic; M47.27 Other spondylosis with radiculopathy, lumbosacral region; M25.511 Pain in right shoulder
CPT/HCPCS: 99214

== ENCOUNTER → 2023-09-05 11:26 | Outpatient (BNVA) | payer OTHER, MEDICAID, SELFPAY | PROVIDERS: PCP Internal Medicine; Visit Provider Nurse Practitioner Family | DX: M17.0 Bilateral primary osteoarthritis of knee (principal); M25.511 Pain in right shoulder; G89.4 Chronic pain syndrome; M47.27 Other spondylosis with radiculopathy, lumbosacral region; M47.816 Spondylosis without myelopathy or radiculopathy, lumbar region; Z79.891 Long term (current) use of opiate analgesic | CPT/HCPCS: 99212 ==

== ENCOUNTER 2023-10-03 12:54 | Outpatient (AMB) | payer OTHER, MEDICAID, SELFPAY ==
--- NOTE | 2023-10-03 12:53 | A.OFFVIS_ITS ---
Vital Signs 3 10/03/23 13:03 10/03/23 13:21 Height 4 ft 11 in Weight 189 lb 6 oz BMI 38.2 BP 191/80 H 174/68 H Blood Pressure Location Rt brachial Rt brachial Position Sitting Sitting Pulse 77 Pulse Source Pulse Oximeter Pulse Oximetry (%) 98 Oxygen Delivery Method Room Air Intake Visit Reasons: PILL COUNT Intake Note: Celia comes in today for a pill count to oxycodone, patient should have 30 tablets and presents with 39 tablets which she last took today 10/03/23 at 12pm, cherylbumara should have 0 and presents with 5 films. Pain today 05/28 Technical Support 1 Software Engineer Required: No Accompanied by: Self / Same As Patient Allergies Penicillins [PENICILLINS] Allergy (Intermediate, Verified 10/03/23 13:04) RASH Medication List - Last Reconciled 10/03/23 by LESLEY Ching acetaminophen 650 mg (2 x 325 mg) PO Q6H PRN 30 days [ADULT PULL-UPS As directed] albuterol sulfate 90 mcg/actuation 2 puffs PO Q6H PRN albuterol sulfate 2.5 mg (3 mL) inhalation Q6H PRN 30 days albuterol sulfate 90 mcg/actuation 2 inhalations inhalation Q6H PRN 30 days aspirin 81 mg PO DAILY atorvastatin 10 mg PO BEDTIME 90 days blood pressure kit-extra large As directed calcium carbonate (Oyster Shell Calcium) 500 mg PO DAILY 90 days escitalopram oxalate 20 mg PO DAILY fluticasone furoate-vilanterol 200-25 mcg/dose (Breo Ellipta) 1 ea inhalation DAILY fluticasone propion-salmeterol 115-21 mcg/actuation (Advair HFA) 2 puffs inhalation Q12H 30 days ibuprofen 600 mg PO Q8H PRN ketotifen fumarate 0.025%(0.035%) drps ophthalmic (eye) lidocaine 5% leave on most painful area for up to 12 hrs topically daily; loratadine 10 mg PO DAILY PRN 90 days mirabegron ER (Myrbetriq) 50 mg PO DAILY montelukast 10 mg PO DAILY naloxone 4 mg/actuation (Narcan) 4 mg intranasal Q3M PRN [NEBULIZER and all related supplies As directed] omeprazole 40 mg PO DAILY 90 days oxycodone 5 mg PO DAILY PRN prazosin 1 mg PO BEDTIME quetiapine 50 mg PO BEDTIME tizanidine 2 mg PO BID PRN trazodone 200 mg PO BEDTIME PRN HPI Comments Details: Patient presents today for a pill and film count. For Belbuca, #5 films were expected, and #0 films were presented. For oxycodone, #30 pills were expected, and #39 pills were presented. This demonstrates a responsible attitude in regards to the medication regimen without any side effects. Patient reports better pain management on Belbuca 300 mcg BID and oxycodone 1 tab per day prn than with recent opioid change to oxycodone 5 mg TID prn. She requests to switch her back to previous medication regime. Denies any recent cough, cold, infection, fever, any significant changes in her medical history, medications or recent hospitalizations. Patient also presents with elevated BP readings. BP manually rechecked, remains elevated at 174/68. Patient reports left sided chest discomfort periodically for past 8 days, with radiation of pain into her left shoulder. Left shoulder ROM are normal. Denies any chest pressure or tightness, shortness of breaths today. Patient reports she will follow up with her provider at [facility]. She reports regularly checking her blood pressure at home and reports her BP readings are normal at home. Past Procedures: 08/26/23: Right subacromial bursa injection, US guided-80% ongoing pain relief 11/05/22: Right femoral nerve block- no right knee pain for 5 hours 07/07/22: Left L3-L4-L5 MB RFA-80% ongoing pain relief 06/16/22: Right L4-L5 TFESI-80% ongoing pain relief 05/26/22: Right L3-L4-L5 MB RFA- 80% pain relief 04/21/22: Right intra-articular hip steroid injection -ongoing 50% pain relief . 08/19/21: Bilateral L3-L4-L5 Diagnostic MBBs ? 80% pain relief for 8 hours 06/17/21: Bilateral Diagnostic L3-L4-L5 MBBs ? 75% relief for 1 day [facility] Medical History Myalgia, upper arm Osteoarthritis of right knee Lumbar spondylosis Foot pain, bilateral BRIDGETTE (obstructive sleep apnea) Asthma Dyspnea KAMILA positive Urticaria Obesity (BMI 30-39.9) Depression Anxiety Insomnia Vitamin D deficiency Chronic interstitial cystitis Irritable bowel syndrome (IBS) Arthralgia Osteoarthritis Esophageal stricture GERD (gastroesophageal reflux disease) Left lumbar radiculopathy CAD (coronary artery disease) Pure hypercholesterolemia Benign essential hypertension Surgical History History of surgery History of total right knee replacement (09/22/21) Hx of cystoscopy Status post balloon dilatation of esophageal stricture (~2005) History of cardiac catheterization History of colonoscopy History of nephrolithotomy with removal of calculi History of tooth extraction Family History Father Hypertension Mother Hypertension Diabetes CVD (cardiovascular disease) Daughter No problems noted. Family/Other FH: mental illness Other Mental health problem Substance abuse Social History Housing: Apartment Are you a primary career guidance counselor to a significant other at home: No Do you presently have visiting nurse or other home services: No Alcohol intake: never Comment: medicated, see MAR Patient Tobacco Use Status: Never used Tobacco e-Cigarette/Vaping Use: Never Used Second Hand Smoke Exposure: No service: No Current occupational status: disabled Cognitive needs: No Hearing needs: No Vision needs: Yes Review of Systems Const All systems reviewed & are unremarkable except as noted in HPI and below Physical Exam Vital Signs: Last Vital Signs Pulse 77 10/03/23 13:03 BP 191/80 H 10/03/23 13:03 Pulse Ox 98 10/03/23 13:03 Oxygen Delivery Method Room Air 10/03/23 13:03 BMI result Body Mass Index 38.2 General: Appears afebrile. Alert and oriented. Mood and affect appropriate. Follows and participates in conversation appropriately. Respiratory effort is unlabored. No cough. Able to transition from sit to stand unassisted. Resp Effort & Inspection: normal respiratory effort, able to speak in complete sentences, Actively coughing Quality: productive (occasionally), not labored, no respiratory distress, no stridor and symmetric chest movement Cardio Jugular venous distension: no JVD Rate: regular rate Peripheral pulses: Peripheral pulses 2+ throughout Back/Spine/Pelvis Cervical Spine: cervical ROM normal and No Cervical spine tenderness Thoracic/Lumbar Spine: thoracic and lumbar spine normal to inspection, Lasegue's sign negative, straight leg raise negative bilaterally, pain with thoraco-lumbar ROM (mild), paraspinal muscle tenderness, thoraco-lumbar ROM limited, No thoracic spinal tenderness and lumbar spinal tenderness Pelvis: no buttock tenderness Sacroiliac joints: bilaterally nontender Extrem General: Yes capillary refill normal, Yes no clubbing, cyanosis or edema and Yes no calf tenderness Psych Appearance: grossly normal and well kempt Mental Status: mental status grossly normal Speech and movement: Normal speech and movement present and Clear speech present Affect: normal affect Attitude: cooperative Thought process: Normal thought process present Thought content: Normal thought content present, suicidality (none), no hallucinations and No Depressive thoughts present Insight: Good insight present (Psych) Judgement: Good judgement present (Psych) Results Reviewed Results Reviewed: Transthoracic ECHO 05/11/23 [facility] MR LUMBAR SPINE WITHOUT CONTRAST 03/05/22 FINDINGS: VERTEBRAL BODIES AND PARASPINAL STRUCTURES: There are mild grade 1 anterolistheses of L4 on L5 and L5 on S1. There is multilevel narrowing of intervertebral disc height with loss of signal throughout the lumbar spine. There are multilevel anterior and right-sided marginal osteophytes. Vertebral body heights are maintained and no fractures are demonstrated. There is an area of increased T1 and T2 signal in the body of L2 consistent with a hemangioma. Overall, marrow signal is homogenous. There are small bilateral renal cysts. The visualized pelvic structures are unremarkable. CONUS MEDULLARIS AND CAUDA EQUINA: Normal, terminating at the level of L1. The lower thoracic spinal cord appears normal. The cauda equina nerve roots and filum terminale appear normal. SPINAL LEVELS: T12-L1: There is mild bilateral facet arthropathy. Posterior disc contour is normal. There is no central stenosis or foraminal narrowing. L1-L2: There is mild bilateral facet arthropathy. Posterior disc contour is normal. There is no central stenosis or foraminal narrowing. L2-L3: There is mild bilateral facet arthropathy. There are small right-sided disc protrusion with minimal distortion of the ventral thecal sac but there is no central stenosis. The neural foramina are patent bilaterally. L3-L4: There is moderate bilateral facet arthropathy. There is a broad-based posterior disc protrusion with a small extruded component extending behind the body of L3 centrally and toward the right. There is minimal distortion of the ventral thecal sac. There is no central stenosis. There are foraminal disc protrusions with mild impingement on the exiting right L3 nerve root. L4-L5: There is markedly severe left and severe right facet arthropathy. There is a broad-based posterior disc protrusion with an annular fissure which flattens the ventral thecal sac and narrows the subarticular recesses. There are bilateral foraminal disc protrusions with impingement on the exiting L4 nerve roots. There is no significant central stenosis. L5-S1: There is markedly severe bilateral facet arthropathy. There is a shallow posterior disc protrusion with mild distortion of the ventral thecal sac but there is no central stenosis. There are left greater than right foraminal disc protrusions with impingement on the exiting left L5 nerve root. IMPRESSION: 1. At L4-L5 there is markedly severe left and severe right facet arthropathy. There is a posterior disc protrusion and there is narrowing of the subarticular recesses. There are bilateral foraminal disc protrusions with impingement on the exiting L4 nerve roots. There is no significant central stenosis. 2. At L5-S1 there is markedly severe facet arthropathy. There is a shallow posterior disc protrusion without central stenosis. There are left greater than right foraminal disc protrusions with impingement on the exiting left L5 nerve root. 3. At L3-L4 there is moderate facet arthropathy. There is a small posterior disc protrusion/extrusion without central stenosis. There are foraminal disc protrusions with impingement on the exiting right L3 nerve root. XR HIP, RIGHT 02/17/22 FINDINGS: Bone alignment is normal. No fracture or dislocation. Moderate right hip arthritis with joint space narrowing and osteophyte formation. Normal soft tissues. IMPRESSION: Moderate right hip arthritis. XR LUMBOSACRAL SPINE 02/01/22 FINDINGS: Lumbar spine alignment is normal. There is mild loss of disc space and endplate remodeling at multiple levels which is most apparent at T12-L1, overall similar to the prior study. There is osteophyte formation at multiple levels including relatively bulky osteophytes along the right side of the upper lumbar spine and there is multilevel facet arthropathy. There is atherosclerotic calcification of the abdominal aorta best visualized on lateral radiographs. Soft tissues are unremarkable. IMPRESSION: Mild multilevel degenerative changes of the lumbar spine overall similar to the prior study. XR/XR knee RT 2V 12/10/22 RIGHT KNEE: Total right knee arthroplasty without evidence of complication. LEFT KNEE: Tricompartmental osteoarthritis, most prominent within the medial compartment, unchanged. Assessment & Plan Assessment & Plan (1) Bilateral primary osteoarthritis of knee: Code(s): M17.0 - Bilateral primary osteoarthritis of knee Category: Medical (2) Chronic pain syndrome: Code(s): G89.4 - Chronic pain syndrome Category: Medical (3) Opioid contract exists: Code(s): Z79.891 - moth exterminator (current) use of opiate analgesic Category: Medical (4) Lumbar spondylosis: Code(s): M47.816 - Spondylosis without myelopathy or radiculopathy, lumbar region Category: Medical (5) Spondylosis of lumbosacral spine with radiculopathy: Code(s): M47.27 - Other spondylosis with radiculopathy, lumbosacral region Category: Medical (6) Elevated BP without diagnosis of hypertension: Code(s): R03.0 - Elevated blood-pressure reading, without diagnosis of hypertension Category: Medical Plan Patient has shown accountability for her medication regimen and the pill and film count were correct today. There is no evidence of misuse, abuse or diversion at this time. MassPat reviewed and consistent. Patient will restart Belbuca 300 mcg BID on 10/05/23. She has Belbuca 150 mcg #5 films for 2.5 days. We will also decrease oxycodone back to 5mg once daily prn for breakthrough, moderate-severe pain only. She currently has #39 tabs, therefore no refills will be sent for this month. Patient is encouraged to follow up with her PCP and Machine Tool Technology Instructor re: elevated BP readings and continue to monitor her BP at home. Discussed non-pharmacological lifestyle modifications for high BP, including dietary salt restriction, exercise, DASH diet, weight loss. All questions and concerns have been answered and patient agreed with the plan. Follow up for pill count in 4 weeks and sooner if needed. Medications: Refilled 2 buprenorphine HCl Partial Fill upon patient request. 300 mcg buccal Q12H 30 days 60 ea 0RF pain G89.4 - Chronic pain syndrome, M17.0 - Bilateral primary osteoarthritis of knee, M47.27 - Other spondylosis with radiculopathy, lumbosacral region, Z79.891 - moth exterminator (current) use of opiate analgesic Coding Level of Care Code Est Pt Level 4 (60139) Diagnoses Bilateral primary osteoarthritis of knee M17.0 Chronic pain syndrome G89.4 Opioid contract exists Z79.891 Lumbar spondylosis M47.816 Spondylosis of lumbosacral spine with radiculopathy M47.27 Elevated BP without diagnosis of hypertension R03.0
[2023-10-03 13:03] VITALS: BP 191/80; PULSE 77; O2SAT 98; BMI 38.2
[2023-10-03 13:21] VITALS: BP 174/68
== END 2023-10-03 13:19 | disposition home or self-care (01) ==
PROVIDERS: PCP Internal Medicine; Visit Provider Nurse Practitioner Family
DX: G89.4 Chronic pain syndrome (principal); M17.0 Bilateral primary osteoarthritis of knee; M47.816 Spondylosis without myelopathy or radiculopathy, lumbar region; Z79.891 Long term (current) use of opiate analgesic; M47.27 Other spondylosis with radiculopathy, lumbosacral region; R03.0 Elevated blood-pressure reading, without diagnosis of hypertension
CPT/HCPCS: 99214

== ENCOUNTER → 2023-10-03 12:54 | Outpatient (BNVA) | payer OTHER, MEDICAID, SELFPAY | PROVIDERS: PCP Internal Medicine; Visit Provider Nurse Practitioner Family | DX: Z51.81 Encounter for therapeutic drug level monitoring (principal); M17.0 Bilateral primary osteoarthritis of knee; M47.816 Spondylosis without myelopathy or radiculopathy, lumbar region; M47.27 Other spondylosis with radiculopathy, lumbosacral region; R03.0 Elevated blood-pressure reading, without diagnosis of hypertension; G89.4 Chronic pain syndrome; Z79.891 Long term (current) use of opiate analgesic | CPT/HCPCS: 99212 ==

== ENCOUNTER 2023-10-19 13:06 | Outpatient (AMB) | payer OTHER, SELFPAY ==
[2023-10-19 13:09] VITALS: BP 116/60; PULSE 88; O2SAT 95; BMI 39.0
--- NOTE | 2023-10-19 13:09 | A.OFFPC_ITS ---
Vital Signs 10/19/23 13:09 10/19/23 13:58 Height 4 ft 11 in Weight 193 lb 0.5 oz BMI 39.0 BP 116/60 130/80 Blood Pressure Location Lt brachial Lt brachial Position Sitting Sitting Pulse 88 Pulse Source Pulse Oximeter Pulse Oximetry (%) 95 Oxygen Delivery Method Room Air Intake Visit Reasons: 3mth f/u Home Support Worker Required: No Allergies Penicillins [PENICILLINS] Allergy (Intermediate, Verified 10/19/23 13:58) RASH Medication List - Last Reconciled 10/19/23 by Curt Falk MD acetaminophen 650 mg (2 x 325 mg) PO Q6H PRN 30 days [ADULT PULL-UPS As directed] albuterol sulfate 90 mcg/actuation 2 puffs PO Q6H PRN albuterol sulfate 2.5 mg (3 mL) inhalation Q6H PRN 30 days albuterol sulfate 90 mcg/actuation 2 inhalations inhalation Q6H PRN 30 days aspirin 81 mg PO DAILY atorvastatin 10 mg PO BEDTIME 90 days blood pressure kit-extra large As directed buprenorphine HCl 300 mcg buccal Q12H 30 days calcium carbonate (Oyster Shell Calcium) 500 mg PO DAILY 90 days escitalopram oxalate 20 mg PO DAILY fluticasone furoate-vilanterol 200-25 mcg/dose (Breo Ellipta) 1 ea inhalation DAILY fluticasone propion-salmeterol 115-21 mcg/actuation (Advair HFA) 2 puffs inhalation Q12H 30 days ibuprofen 600 mg PO Q8H PRN ketotifen fumarate 0.025%(0.035%) drps ophthalmic (eye) lidocaine 5% leave on most painful area for up to 12 hrs topically daily; loratadine 10 mg PO DAILY PRN 90 days mirabegron ER (Myrbetriq) 50 mg PO DAILY montelukast 10 mg PO DAILY naloxone 4 mg/actuation (Narcan) 4 mg intranasal Q3M PRN [NEBULIZER and all related supplies As directed] omeprazole 40 mg PO DAILY 90 days oxycodone 5 mg PO DAILY PRN prazosin 1 mg PO BEDTIME quetiapine 50 mg PO BEDTIME tizanidine 2 mg PO BID PRN trazodone 200 mg PO BEDTIME PRN Tobacco use date assessed: 07/12/23 Fall risk assessment: No Falls in past year Last assessed Fall Risk: 10/19/23 Dental Screening Dental Screen Date: 07/12/23 HPI 3mth f/u HPI Details Patient comes in today for her follow up visit States that she feels okay She denies any headaches or dizziness Denies any chest pains, no SOB No nausea/vomiting, no abdominal pain No change in bowel habits noted States that her chronic low back pain and joint pains remain adequately control led on her pain regimen, including Rx and interventional treatments, and she continues to follow up with pain management on a regular basis Needs her Atorvastatin Rx refilled She has not had any follow up labs done recently [facility] Medical History (Updated 10/19/23 @ 14:33 by Curt Falk MD) Myalgia, upper arm Osteoarthritis of right knee Lumbar spondylosis Foot pain, bilateral BRIDGETTE (obstructive sleep apnea) Asthma KAMILA positive Urticaria Obesity (BMI 30-39.9) Depression Anxiety Insomnia Vitamin D deficiency Chronic interstitial cystitis Irritable bowel syndrome (IBS) Arthralgia Osteoarthritis Esophageal stricture GERD (gastroesophageal reflux disease) Left lumbar radiculopathy CAD (coronary artery disease) Pure hypercholesterolemia Benign essential hypertension Surgical History History of surgery History of total right knee replacement (09/22/21) Hx of cystoscopy Status post balloon dilatation of esophageal stricture (~2005) History of cardiac catheterization History of colonoscopy History of nephrolithotomy with removal of calculi History of tooth extraction Family History Father Hypertension Mother Hypertension Diabetes CVD (cardiovascular disease) Daughter No problems noted. Family/Other FH: mental illness Other Mental health problem Substance abuse Social History Housing: Apartment Are you a primary career education teacher to a significant other at home: No Do you presently have visiting nurse or other home services: No Alcohol intake: never Comment: medicated, see MAR Patient Tobacco Use Status: Never used Tobacco e-Cigarette/Vaping Use: Never Used Second Hand Smoke Exposure: No service: No Current occupational status: disabled Cognitive needs: No Hearing needs: No Vision needs: Yes Questionnaire Thrive Questionnaire Date Thrive assessed: 07/12/23 AUDIT C Alcohol Use Questionnaire (AUDIT-C) 1. How often do you have a drink containing alcohol?: Never 3. How often do you have six or more drinks on one occasion?: Never Total Score: 0 Score Reviewed/Action Taken: Yes ADRIANA-7 AMB Questionnaire ADRIANA-7 Date ADRIANA - 7 assessed: 07/12/23 Feeling nervous, anxious, or on edge: 0 = Not at all Not being able to stop or control worryin = Not at all Worrying too much about different things: 0 = Not at all Trouble relaxin = Not at all Being so restless that it is hard to sit still: 0 = Not at all Becoming easily annoyed or irritable: 0 = Not at all Feeling afraid as if something awful might happen: 0 = Not at all Total ADRIANA-7 score (0-4 normal; 5-9 mild; 10-14 moderate; 15-21 severe): 0 Source: Developed by Drs. Jorge Diallo, Yumiko Irvin, Celestino Banda and colleagues, with an educational mari from [email or web address]. Review of Systems Const Reports difficulty sleeping (mostly due to frequent trips to the bathroom), Denies fatigue, Denies fever(s) and Denies headache(s) ENT Denies dysphagia, Denies dizziness, Denies otalgia, Denies headache(s), Denies neck pain, Denies odynophagia and Denies sore throat Card Denies chest pain, Denies palpitations and Denies dyspnea Resp Denies cough, Denies dyspnea and Denies wheezing GI Denies abdominal pain, Denies constipation, Denies dysphagia, Denies heartburn, Denies diarrhea, Denies nausea, Denies odynophagia and Denies vomiting Denies difficulty voiding, Reports nocturia, Reports dysuria (on and off - has chronic IC) and Reports urinary urgency (at times) Musc Reports back pain (over the right lower back), Reports arthralgias (involving multiple joints - right knee and hip and right shoulder), Denies neck pain, Reports radiating pain into limb (into the right thigh and leg; right shoulder pain going into neck/arm) and Reports stiffness Skin/Breast Denies rash Neuro Denies dizziness and Denies headache(s) Psych Denies anxiety Endo Denies fatigue and Denies palpitations Stanton/Lymph Details: swelling of both hands and feet lately Aller/Immun Denies wheezing Physical exam (Primary Care) Vital Signs: Last Vital Signs Pulse 88 10/19/23 13:09 BP 130/80 10/19/23 13:58 Pulse Ox 95 10/19/23 13:09 Oxygen Delivery Method Room Air 10/19/23 13:09 BMI result Body Mass Index 39.0 Tobacco/Smoking Status: Tobacco use Status Tobacco use date assessed 07/12/23 10/19/23 13:10 Patient Tobacco Use Status Never used Tobacco 10/19/23 13:10 Tobacco use type 07/26/23 14:03 e-Cigarette/Vaping Use Never Used 10/19/23 13:10 Thrive Assessment: Date of Thrive Assessment Date Thrive assessed 07/12/23 10/19/23 13:10 Const General: no acute distress and alert HENMT Ears: TM's normal bilaterally and EAC's normal Throat: Yes posterior oropharynx normal and Yes tonsils normal (no TP congestion noted) Neck Neck: Yes no lymphadenopathy and Yes supple Thyroid: Thyroid normal Resp Auscultation: clear to auscultation bilaterally, no rales and no wheezes Cardio Rate: regular rate Rhythm: regular rhythm Heart sounds: no murmurs GI Palpation (GI): Soft to palpation and nontender Auscultation: normal bowel sounds General: Yes no CVA tenderness Back/Spine/Pelvis Back: no CVA tenderness Thoracic/Lumbar Spine: paraspinal muscle tenderness on the right, lumbar spinal tenderness (chronic) and straight leg raise positive (slightly ) Skin Rashes: no rashes Extrem General: Yes no clubbing, cyanosis or edema Right upper extremity: shoulder/upper arm Details: tenderness Location: of the A -C joint and abnormal ROM (ROM limited due to pain - unable to raise right arm above shoulder level) Right lower extremity: knee Details: tenderness; no swelling Left lower extremity: knee Details: tenderness; no swelling Assessment and Plan Assessment & Plan (1) Spondylosis of lumbosacral spine with radiculopathy: Code(s): M47.27 - Other spondylosis with radiculopathy, lumbosacral region Plan: MRI of the lumbar spine done in February 2022 revealed (+) markedly severe left and severe right facet arthropathy with a posterior disc protrusion and narrowing of the subarticular recesses as well as bilateral foraminal disc protrusions with impingement on the exiting L4 nerve roots at L4-L5. There is no significant central stenosis. At L5-S1 there is markedly severe facet arth ropathy with a shallow posterior disc protrusion without central stenosis. There are left greater than right foraminal disc protrusions with impingement on the exiting left L5 nerve root. Lastly, at L3-L4 there is moderate facet arthropathy with a small posterior disc protrusion/extrusion without central stenosis. There are foraminal disc protrusions with impingement on the exiting right L3 nerve root. S/P bilateral lumbar RFA with sedation and fluoroscopy?on 05/26/22 and 06/09/22, and right L4-L5 TFESI?with local and fluoroscopy in 06/2022 - patient reports (+) significant improvement of her joint symptoms since Reinforced activity and weight-lifting restrictions Continue?Flexeril?10 mg 3 times a day as needed, Butrans 20 mcg patch once a week and Percocet 5-325 mg QD PRN for breakthrough pain Follow up with [facility] Pain Management as scheduled - feels that she is doing well with her current pain management regimen (2) Right hip pain: Code(s): M25.551 - Pain in right hip Plan: X-rays of the right hip done on 02/17/2022 revealed (+) moderate right hip OA Follow up with orthopedics as scheduled (3) Bilateral primary osteoarthritis of knee: Code(s): M17.0 - Bilateral primary osteoarthritis of knee Plan: S/P total right knee arthroplasty by Dr. Deras on 09/22/2021, with significant improvement of her knee symptoms since Follow up with orthopedics as scheduled (4) Polyarthralgia: Code(s): M25.50 - Pain in unspecified joint Plan: Patient has been tested previously for inflammatory joint disease, including RA and SLE - tests have all come back negative Has also been checked for Lyme disease, which came back negative Follow up with [facility] Rheumatology as scheduled (5) Pure hypercholesterolemia: Code(s): E78.00 - Pure hypercholesterolemia, unspecified Plan: Reinforced low cholesterol diet Continue Ezetimibe 10 mg QD and Atorvastatin 10 mg QD - appears to be tolerating Rx so far (could not tolerate Rosuvastatin in the past due to myalgia) Will have her recheck her labs and fasting lipids [facility] for follow-up (6) Benign essential hypertension: Code(s): I10 - Essential (primary) hypertension Plan: Reinforced low sodium diet - goal is systolic BP of at least 130 to 140 mm or less Her blood pressure is very high today - states that she hardly got any sleep last night due to her frequent trips to the bathroom Patient is reminded to continue monitoring her blood pressure regularly (7) Asthma: Code(s): J45.909 - Unspecified asthma, uncomplicated Qualifiers: Asthma complication type: uncomplicated Asthma persistence: persistent Asthma severity: moderate Qualified Code(s): J45.40 - Moderate persistent asthma, uncomplicated Plan: Stable Continue Dupixent 200 mg SQ every 2 weeks, Breo Ellipta 200-25 mcg 1 inhalation QD, Montelukast 10 mg QD and Albuterol HFA 2 inhalations every 6 hours as needed Follow-up with pulmonary as scheduled (8) Impaired fasting glucose: Code(s): R73.01 - Impaired fasting glucose Plan: In-office HgbA1c was normal at 5.7% when checked previously Reinforced low carb/low calorie diet (9) GERD (gastroesophageal reflux disease): Code(s): K21.9 - Gastro-esophageal reflux disease without esophagitis Qualifiers: Esophagitis presence: without esophagitis Qualified Code(s): K21.9 - Gastro-esophageal reflux disease without esophagitis Plan: Dietary restrictions reinforced Continue Omeprazole 40 mg QD (10) Esophageal stricture: Code(s): K22.2 - Esophageal obstruction Plan: S/P balloon dilatation by Dr. Nunez in 2005 -? states that she currently has no trouble swallowing Follow-up with Dr. Nunez as scheduled (11) Irritable bowel syndrome (IBS): Code(s): K58.9 - Irritable bowel syndrome without diarrhea Qualifiers: Irritable bowel syndrome type: unspecified Qualified Code(s): K58.9 - Irritable bowel syndrome without diarrhea Plan: Continue Dicyclomine 20 mg QID PRN Follow-up with GI as scheduled (12) Vitamin D deficiency: Code(s): E55.9 - Vitamin D deficiency, unspecified Plan: Continue Vitamin D2 76604 units weekly (13) Chronic interstitial cystitis: Comment: S/P hydrodistention on 07/07/20 Code(s): N30.10 - Interstitial cystitis (chronic) without hematuria Plan: Continue Phenazopyridine 200 mg every 6 hours as needed Has been seeing Dr. Lopez for urology follow up and management over the past few years and is now requesting referral to see another urologist for a second opinion She is now going to [facility] for continuing management of her urinary issues (14) Nephrolithiasis: Code(s): N20.0 - Calculus of kidney Plan: Follow up renal US done back in July 2021 revealed (+) bilateral nonobstructive echogenic renal calculi, with no caliectasis or hydronephrosis seen Follow up with urology as scheduled (15) Insomnia: Code(s): G47.00 - Insomnia, unspecified Qualifiers: Insomnia type: unspecified Qualified Code(s): G47.00 - Insomnia, unspecified Plan: Sleep hygiene reinforced States that her Quetiapine helps with her sleep at night (16) Anxiety: Code(s): F41.9 - Anxiety disorder, unspecified Plan: Continue Clonazepam 1 mg 3 times a day as needed and Bupropion ER 200 mg QD in AM (17) Depression: Code(s): F32.9 - Major depressive disorder, single episode, unspecified Qualifiers: Active/Remission status: currently active Depression Type: major depressive disorder Major depression episode severity: unspecified Major depr ession recurrence: recurrent Qualified Code(s): F33.9 - Major depressive disorder, recurrent, unspecified Plan: Continue Quetiapine 200 mg QHS; is also on Bupropion ER 200 mg QD Follow-up with Psychiatry as scheduled (18) Obesity (BMI 30-39.9): Code(s): E66.9 - Obesity, unspecified Plan: Reinforced diet; exercise and weight loss may be unrealistic and limited due to her physical issues but she is advised to try to stay as active as she can Plan Follow up in 3 months Orders: Orders Complete Blood Count Auto Diff Today D64.9 - Anemia, unspecified Comprehensive [place]. Panel Fast Today E78.00 - Pure hypercholesterolemia, unspecified UA CC w/rflx Micro + Cult Today R30.0 - Dysuria Vitamin D 25-OH Total Today E55.9 - Vitamin D deficiency, unspecified Lipid Panel Today E78.00 - Pure hypercholesterolemia, unspecified Hemoglobin A1c Today R73.01 - Impaired fasting glucose TSH reflex Free T4 Today E78.00 - Pure hypercholesterolemia, unspecified Vitamin B12 and Folate Today E53.8 - Deficiency of other specified B group vitamins Medications: Refilled atorvastatin 10 mg PO BEDTIME 90 days 90 tabs 1RF Coding Level of Care Code Est Pt Level 4 (37579) Diagnoses Spondylosis of lumbosacral spine with radiculopathy M47.27 Right hip pain M25.551 Bilateral primary osteoarthritis of knee M17.0 Polyarthralgia M25.50 Pure hypercholesterolemia E78.00 Benign essential hypertension I10 Moderate persistent asthma without complication J45.40 Asthma complication type: uncomplicated Asthma persistence: persistent Asthma severity: moderate Impaired fasting glucose R73.01 Gastroesophageal reflux disease without esophagitis K21.9 Esophagitis presence: without esophagitis Esophageal stricture K22.2 Irritable bowel syndrome, unspecified type K58.9 Irritable bowel syndrome type: unspecified Vitamin D deficiency E55.9 Chronic interstitial cystitis N30.10 Nephrolithiasis N20.0 Insomnia, unspecified type G47.00 Insomnia type: unspecified Anxiety F41.9 Episode of recurrent major depressive disorder, unspecified depression episode severity F33.9 Active/Remission status: currently active Depression Type: major depressive disorder Major depression episode severity: unspecified Major depression recurrence: recurrent Obesity (BMI 30-39.9) E66.9
[2023-10-19 13:58] VITALS: BP 130/80
== END 2023-10-19 14:04 | disposition home or self-care (01) ==
PROVIDERS: PCP Internal Medicine; Visit Provider Internal Medicine
DX: M47.27 Other spondylosis with radiculopathy, lumbosacral region (principal); M25.551 Pain in right hip; M17.0 Bilateral primary osteoarthritis of knee; F33.9 Major depressive disorder, recurrent, unspecified; M25.50 Pain in unspecified joint; E78.00 Pure hypercholesterolemia, unspecified; I10 Essential (primary) hypertension; J45.40 Moderate persistent asthma, uncomplicated; R73.01 Impaired fasting glucose; K21.9 Gastro-esophageal reflux disease without esophagitis; K22.2 Esophageal obstruction; K58.9 Irritable bowel syndrome, unspecified
CPT/HCPCS: 99214

== ENCOUNTER 2023-10-31 10:37 | Outpatient (REF) | payer OTHER, SELFPAY ==
[2023-10-31 11:45] LABS: MANUAL DIFF FLAG NO
[2023-10-31 13:20] LABS: Appearance Urine Hazy; Color Urine Yellow; Glucose Urine UA Negative (Negative); Leukocyte Esterase Urine Negative (Negative); Nitrite Urine Negative (Negative); PH 6.5 (5.0-9.0); Specific Gravity - Urine 1.025 (1.005-1.025); UMIC TRIGGER UACC YES; Urine Blood Negative (Negative); Urine Ketones Negative (Negative); Urine Protein 30 (1+) mg/dL (Neg-Trace)
[2023-10-31 13:45] LABS: Basophils Absolute Auto 0.1 X10*3/uL (0.0-0.2); Eosinophils Absolute Auto 0.3 X10*3/uL (0.0-0.4); Eosinophils Percent Auto 5.3 % (0-4); Hematocrit 37.8 % (37.0-47.0); Hemoglobin 12.2 g/dl (12.0-16.0); Imm Gran Abs Auto 0.02 X10*3/uL (0.00-0.03); Imm Gran Pct Auto 0.3 % (0.0-0.4); Lymphocytes Absolute Auto 1.8 X10*3/uL (1.2-4.9); Lymphocytes Percent Auto 30.5 % (20-40); Mean Corpuscular HGB Conc 32.3 g/dl (31.0-35.0); Mean Corpuscular Hemoglobin 27.3 pg (27.0-33.0); Mean Corpuscular Volume 84.6 fL (80.0-98.0); Mean Platelet Volume 11.8 fL (9.4-12.3); Monocytes Absolute Auto 0.4 X10*3/uL (0.1-1.2); Neutrophils Absolute Auto 3.3 x10*3/uL (2.0-8.3); Neutrophils Percent Auto 56.9 % (45-73); Platelet Count 228 X10*3/uL (160-400); Red Blood Count 4.47 X10*6/uL (4.20-5.50); Red Cell Distribution Width 14.2 % (11.0-16.0); White Blood Count 5.8 X10*3/uL (4.8-10.8)
[2023-10-31 13:51] LABS: Estimated Average Glucose 108 mg/dL; Hemoglobin A1c % 5.4 % (<6.0)
[2023-10-31 13:58] LABS: Bacteria Urine 1+ (None Seen); Hyaline Casts Urine 0-2 /LPF (0-2); RBC Urine 0-2 /HPF (0-2); WBC Urine 0-5 /HPF (0-5)
[2023-10-31 14:24] LABS: Alanine Aminotransferase 13 U/L (0-31); Albumin Level 4.4 g/dL (3.5-5.0); Alkaline Phosphatase 78 U/L (39-117); Anion Gap 12 (12-20); Aspartate Amino Transferase 18 U/L (5-31); Bilirubin Total 0.3 mg/dL (0.0-1.0); Blood Urea Nitrogen 11 mg/dL (9-16); Carbon Dioxide 27 mmol/L (22-29); Chloride 107 mmol/L (96-108); Cholesterol 171 mg/dL (<200); Estimated Glomerular Filt Rate > 60; Glucose Fasting 99 mg/dL (60-99); HDL Cholesterol 47 mg/dL (>40); LDL Cholesterol Calculated 85 mg/dL (<100); Potassium 4.1 mmol/L (3.3-5.1); Sodium 142 mmol/L (135-145); Total Protein 7.4 g/dL (6.5-8.0); Triglycerides 197 mg/dL (<150)
[2023-10-31 14:41] LABS: TSH reflex Free T4 2.87 uIU/mL (0.32-4.0); Vitamin D 25-OH Total 43.8 ng/mL (>30)
[2023-10-31 14:51] LABS: Folate 8.4 ng/mL (> or = 4.0); Vitamin B12 366 pg/mL (200-900)
== END 2023-10-31 10:38 | disposition home or self-care (01) ==
LOC: HO.LAB 10:37
PROVIDERS: Absent Provider Internal Medicine; PCP Internal Medicine; Visit Provider Nurse Practitioner Family
DX: E78.00 Pure hypercholesterolemia, unspecified (principal); E55.9 Vitamin D deficiency, unspecified; D64.9 Anemia, unspecified; R73.01 Impaired fasting glucose; E53.8 Deficiency of other specified B group vitamins; Z79.899 Other long term (current) drug therapy
CPT/HCPCS: 36415; 80053; 80061; 81001; 81003; 82306; 82607; 82746; 83036; 84443; 85025

== ENCOUNTER 2023-11-28 10:42 | Outpatient (AMB) | payer OTHER, MEDICAID, SELFPAY ==
--- NOTE | 2023-11-28 10:46 | MHC.OFFVIS ---
Vital Signs 11/28/23 10:55 Height 4 ft 11 in Weight 194 lb 6 oz BMI 39.3 BP 132/63 Blood Pressure Location Rt brachial Position Sitting Pulse 80 Pulse Source Pulse Oximeter Pulse Oximetry (%) 99 Oxygen Delivery Method Room Air Intake Visit Reasons: Pill Count Intake Note: Celia comes in today for a pill count to oxycodone and a film count to belbuca, patient should have 0 tablets of oxycodone and presents with 0 tablets which she states she last took a few weeks ago . Belbuca should have 20 films and presents with 23 films which she last took today 11/28/23 at 3:30am. Pain today 11/25 [facility] Psychiatrist Required: No Accompanied by: Self / Same As Patient Allergies Penicillins [PENICILLINS] Allergy (Intermediate, Verified 11/28/23 10:55) RASH HPI Comments Details: Patient presents today for a pill and film count. For Belbuca, #20 films were expected, and #23 films were presented. For oxycodone, #0 pills were expected, and #0 pills were presented. This demonstrates a responsible attitude in regards to the medication regimen without any side effects. She reports mild pain relief on current pain regime on Belbuca 300 mcg BID and oxycodone 1 tab per day prn due to return of her axial low back pain s/p RFA in early 2022. She requests today to repeat RFA procedure. Denies any recent cough, cold, infection, fever, any significant changes in her medical history, medications or recent hospitalizations. Past Procedures: 08/26/23: Right subacromial bursa injection, US guided-80% ongoing pain relief 11/05/22: Right femoral nerve block- no right knee pain for 5 hours 07/07/22: Left L3-L4-L5 MB RFA-80% ongoing pain relief 06/16/22: Right L4-L5 TFESI-80% ongoing pain relief 05/26/22: Right L3-L4-L5 MB RFA- 80% pain relief 04/21/22: Right intra-articular hip steroid injection -ongoing 50% pain relief . 08/19/21: Bilateral L3-L4-L5 Diagnostic MBBs ? 80% pain relief for 8 hours 06/17/21: Bilateral Diagnostic L3-L4-L5 MBBs ? 75% relief for 1 day [facility] Medical History Myalgia, upper arm Osteoarthritis of right knee Lumbar spondylosis Foot pain, bilateral BRIDGETTE (obstructive sleep apnea) Asthma KAMILA positive Urticaria Obesity (BMI 30-39.9) Depression Anxiety Insomnia Vitamin D deficiency Chronic interstitial cystitis Irritable bowel syndrome (IBS) Arthralgia Osteoarthritis Esophageal stricture GERD (gastroesophageal reflux disease) Left lumbar radiculopathy CAD (coronary artery disease) Pure hypercholesterolemia Benign essential hypertension Surgical History History of surgery History of total right knee replacement (09/22/21) Hx of cystoscopy Status post balloon dilatation of esophageal stricture (~2005) History of cardiac catheterization History of colonoscopy History of nephrolithotomy with removal of calculi History of tooth extraction Family History Father Hypertension Mother Hypertension Diabetes CVD (cardiovascular disease) Daughter No problems noted. Family/Other FH: mental illness Other Mental health problem Substance abuse Social History Housing: Apartment Are you a primary summer child caregiver to a significant other at home: No Do you presently have visiting nurse or other home services: No Alcohol intake: never Comment: medicated, see MAR Patient Tobacco Use Status: Never used Tobacco e-Cigarette/Vaping Use: Never Used Second Hand Smoke Exposure: No service: No Current occupational status: disabled Cognitive needs: No Hearing needs: No Vision needs: Yes Review of Systems Const All systems reviewed & are unremarkable except as noted in HPI and below Physical Exam General: Appears afebrile. Alert and oriented. Mood and affect appropriate. Follows and participates in conversation appropriately. Respiratory effort is unlabored. No cough. Able to transition from sit to stand unassisted. Resp Effort & Inspection: normal respiratory effort, able to speak in complete sentences, Actively coughing Quality: productive (occasionally), not labored, no respiratory distress, no stridor and symmetric chest movement Cardio Jugular venous distension: no JVD Rate: regular rate Peripheral pulses: Peripheral pulses 2+ throughout General: Yes no CVA tenderness Back/Spine/Pelvis Other: No midline tenderness to palpation in the thoracic or lumbar region. Moderate paraspinal tenderness to palpation in the lumbar spine bilaterally. Lumbar extension moderate pain, flexion and bending forward mild pain. Painful facet loading bilaterally. No groin pain with I/E hip rotations bilaterally. Back: no CVA tenderness Cervical Spine: cervical ROM normal and No Cervical spine tenderness Thoracic/Lumbar Spine: thoracic and lumbar spine normal to inspection, No Thoracic/lumbar spine scar(s), Lasegue's sign negative, straight leg raise negative bilaterally, pain with thoraco-lumbar ROM (moderate), paraspinal muscle tenderness, thoraco-lumbar ROM limited, No thoracic spinal tenderness and lumbar spinal tenderness (L3-S1) Pelvis: no buttock tenderness Sacroiliac joints: bilaterally nontender Extrem General: Yes capillary refill normal, Yes no clubbing, cyanosis or edema and Yes no calf tenderness Psych Appearance: grossly normal and well kempt Mental Status: mental status grossly normal Speech and movement: Normal speech and movement present and Clear speech present Affect: normal affect Attitude: cooperative Thought process: Normal thought process present Thought content: Normal thought content present, suicidality (none), no hallucinations and No Depressive thoughts present Insight: Good insight present (Psych) Judgement: Good judgement present (Psych) Results Reviewed Results Reviewed: Transthoracic ECHO 05/11/23 [facility] MR LUMBAR SPINE WITHOUT CONTRAST 03/05/22 FINDINGS: VERTEBRAL BODIES AND PARASPINAL STRUCTURES: There are mild grade 1 anterolistheses of L4 on L5 and L5 on S1. There is multilevel narrowing of intervertebral disc height with loss of signal throughout the lumbar spine. There are multilevel anterior and right-sided marginal osteophytes. Vertebral body heights are maintained and no fractures are demonstrated. There is an area of increased T1 and T2 signal in the body of L2 consistent with a hemangioma. Overall, marrow signal is homogenous. There are small bilateral renal cysts. The visualized pelvic structures are unremarkable. CONUS MEDULLARIS AND CAUDA EQUINA: Normal, terminating at the level of L1. The lower thoracic spinal cord appears normal. The cauda equina nerve roots and filum terminale appear normal. SPINAL LEVELS: T12-L1: There is mild bilateral facet arthropathy. Posterior disc contour is normal. There is no central stenosis or foraminal narrowing. L1-L2: There is mild bilateral facet arthropathy. Posterior disc contour is normal. There is no central stenosis or foraminal narrowing. L2-L3: There is mild bilateral facet arthropathy. There are small right-sided disc protrusion with minimal distortion of the ventral thecal sac but there is no central stenosis. The neural foramina are patent bilaterally. L3-L4: There is moderate bilateral facet arthropathy. There is a broad-based posterior disc protrusion with a small extruded component extending behind the body of L3 centrally and toward the right. There is minimal distortion of the ventral thecal sac. There is no central stenosis. There are foraminal disc protrusions with mild impingement on the exiting right L3 nerve root. L4-L5: There is markedly severe left and severe right facet arthropathy. There is a broad-based posterior disc protrusion with an annular fissure which flattens the ventral thecal sac and narrows the subarticular recesses. There are bilateral foraminal disc protrusions with impingement on the exiting L4 nerve roots. There is no significant central stenosis. L5-S1: There is markedly severe bilateral facet arthropathy. There is a shallow posterior disc protrusion with mild distortion of the ventral thecal sac but there is no central stenosis. There are left greater than right foraminal disc protrusions with impingement on the exiting left L5 nerve root. IMPRESSION: 1. At L4-L5 there is markedly severe left and severe right facet arthropathy. There is a posterior disc protrusion and there is narrowing of the subarticular recesses. There are bilateral foraminal disc protrusions with impingement on the exiting L4 nerve roots. There is no significant central stenosis. 2. At L5-S1 there is markedly severe facet arthropathy. There is a shallow posterior disc protrusion without central stenosis. There are left greater than right foraminal disc protrusions with impingement on the exiting left L5 nerve root. 3. At L3-L4 there is moderate facet arthropathy. There is a small posterior disc protrusion/extrusion without central stenosis. There are foraminal disc protrusions with impingement on the exiting right L3 nerve root. XR HIP, RIGHT 02/17/22 FINDINGS: Bone alignment is normal. No fracture or dislocation. Moderate right hip arthritis with joint space narrowing and osteophyte formation. Normal soft tissues. IMPRESSION: Moderate right hip arthritis. XR LUMBOSACRAL SPINE 02/01/22 FINDINGS: Lumbar spine alignment is normal. There is mild loss of disc space and endplate remodeling at multiple levels which is most apparent at T12-L1, overall similar to the prior study. There is osteophyte formation at multiple levels including relatively bulky osteophytes along the right side of the upper lumbar spine and there is multilevel facet arthropathy. There is atherosclerotic calcification of the abdominal aorta best visualized on lateral radiographs. Soft tissues are unremarkable. IMPRESSION: Mild multilevel degenerative changes of the lumbar spine overall similar to the prior study. XR/XR knee RT 2V 12/10/22 RIGHT KNEE: Total right knee arthroplasty without evidence of complication. LEFT KNEE: Tricompartmental osteoarthritis, most prominent within the medial compartment, unchanged. 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 There is no evidence of misuse, abuse or diversion at this time. MassPat reviewed and consistent. Refill sent for Belbuca 300 mcg BID on 12/08/23 and oxycodone 5mg once daily prn sent today for breakthrough, moderate-severe pain only. Schedule repeat right and left L3-L4 DR L5 Medial Branch RFA for axial low back pain with sedation and fluoroscopy. She last had this done in May-June 2022 and reports low back pain has been at baseline since few months ago. Previous Bilateral L3-L4-L5 Diagnostic MBBs provided her #1 for 80% pain relief for 8 hours and #2 for 75% relief for 1 day. Expectations, risks and benefits were reviewed. Patient is aware she will be contacted to schedule this procedure. All questions and concerns have been answered and patient agreed with the plan. Follow up for pill count in 4-5 weeks and sooner if needed. Medications: Changed From oxycodone Partial Fill upon patient request. 5 mg PO DAILY PRN pain (scale score 7-10) G89.4 - Chronic pain syndrome, M17.0 - Bilateral primary osteoarthritis of knee, M47.816 - Spondylosis without myelopathy or radiculopathy, lumbar region To oxycodone Partial Fill upon patient request. 5 mg PO DAILY 30 days PRN 30 tabs 0RF pain (scale score 7-10) G89.4 - Chronic pain syndrome, M17.0 - Bilateral primary osteoarthritis of knee, M47.816 - Spondylosis without myelopathy or radiculopathy, lumbar region Refilled lidocaine 5% leave on most painful area for up to 12 hrs topically daily; 30 ea 0RF pain M17.0 - Bilateral primary osteoarthritis of knee, M47.816 - Spondylosis without myelopathy or radiculopathy, lumbar region buprenorphine HCl 150 mcg buccal Q12H 30 days 60 ea 1RF pain G89.4 - Chronic pain syndrome, M17.0 - Bilateral primary osteoarthritis of knee, M25.561 - Pain in right knee, M47.27 - Other spondylosis with radiculopathy, lumbosacral region Coding Level of Care Code Est Pt Level 4 (52627) Diagnoses Bilateral primary osteoarthritis of knee M17.0 Chronic pain syndrome G89.4 Opioid contract exists Z79.891 Lumbar spondylosis M47.816
[2023-11-28 10:55] VITALS: BP 132/63; PULSE 80; O2SAT 99; BMI 39.3
== END 2023-11-28 11:09 | disposition home or self-care (01) ==
PROVIDERS: PCP Internal Medicine; Visit Provider Nurse Practitioner Family
DX: G89.4 Chronic pain syndrome (principal); M17.0 Bilateral primary osteoarthritis of knee; M47.816 Spondylosis without myelopathy or radiculopathy, lumbar region; Z79.891 Long term (current) use of opiate analgesic
CPT/HCPCS: 99214

== ENCOUNTER → 2023-11-28 10:42 | Outpatient (BNVA) | payer OTHER, MEDICAID, SELFPAY | PROVIDERS: PCP Internal Medicine; Visit Provider Nurse Practitioner Family | DX: Z51.81 Encounter for therapeutic drug level monitoring (principal); M17.0 Bilateral primary osteoarthritis of knee; M47.816 Spondylosis without myelopathy or radiculopathy, lumbar region; G89.4 Chronic pain syndrome; Z79.891 Long term (current) use of opiate analgesic | CPT/HCPCS: 99212 ==

== ENCOUNTER 2024-01-02 11:03 | Outpatient (AMB) | payer OTHER, MEDICAID, SELFPAY ==
--- NOTE | 2024-01-02 11:05 | MHC.OFFVIS ---
Vital Signs 01/02/24 11:14 Height 4 ft 11 in Weight 195 lb BMI 39.4 BP 131/60 Blood Pressure Location Rt brachial Position Sitting Pulse 88 Pulse Source Pulse Oximeter Pulse Oximetry (%) 98 Oxygen Delivery Method Room Air Intake Visit Reasons: Pill Count Intake Note: Celia comes oin today for a pill count to oxycodone and a film count to belbuca. Patient should have 18 films and presents with 18 films which she last took today 01/02/24 at 6am, Oxycodone should have 0 tablets and presents with 5 tablets which she last took 3 days ago (12/30/23). Pain today 510 Animal Doctor Required: No Accompanied by: Self / Same As Patient Allergies Penicillins [PENICILLINS] Allergy (Intermediate, Verified 01/02/24 11:14) RASH HPI Comments Details: Patient presents today for a pill and film count. For Belbuca, #18 films were expected, and #18 films were presented. For oxycodone, #0 pills were expected, and #5 pills were presented. This demonstrates a responsible attitude in regards to the medication regimen without any side effects. Patient reports worsening axial low back pain and reports repeat RFA has not been scheduled yet. She had good results with lumbar RFA in 2022 providing her 80% pain relief for 10-12 months. She reports mild pain relief on current pain regime on Belbuca 300 mcg BID and oxycodone 1 tab per day prn due to return of her axial low back pain s/p RFA in early 2022. She requests today to repeat RFA procedure. Denies any recent cough, cold, infection, fever, any significant changes in her medical history, medications or recent hospitalizations. Past Procedures: 08/26/23: Right subacromial bursa injection, US guided-80% ongoing pain relief 11/05/22: Right femoral nerve block- no right knee pain for 5 hours 07/07/22: Left L3-L4-L5 MB RFA-80% ongoing pain relief 06/16/22: Right L4-L5 TFESI-80% ongoing pain relief 05/26/22: Right L3-L4-L5 MB RFA- 80% pain relief 04/21/22: Right intra-articular hip steroid injection -ongoing 50% pain relief . 08/19/21: Bilateral L3-L4-L5 Diagnostic MBBs ? 80% pain relief for 8 hours 06/17/21: Bilateral Diagnostic L3-L4-L5 MBBs ? 75% relief for 1 day [facility], [facility] Medical History Myalgia, upper arm Osteoarthritis of right knee Lumbar spondylosis Foot pain, bilateral BRIDGETTE (obstructive sleep apnea) Asthma KAMILA positive Urticaria Obesity (BMI 30-39.9) Depression Anxiety Insomnia Vitamin D deficiency Chronic interstitial cystitis Irritable bowel syndrome (IBS) Arthralgia Osteoarthritis Esophageal stricture GERD (gastroesophageal reflux disease) Left lumbar radiculopathy CAD (coronary artery disease) Pure hypercholesterolemia Benign essential hypertension Surgical History History of surgery History of total right knee replacement (09/22/21) Hx of cystoscopy Status post balloon dilatation of esophageal stricture (~2005) History of cardiac catheterization History of colonoscopy History of nephrolithotomy with removal of calculi History of tooth extraction Family History Father Hypertension Mother Hypertension Diabetes CVD (cardiovascular disease) Daughter No problems noted. Family/Other FH: mental illness Other Mental health problem Substance abuse Social History Housing: Apartment Are you a primary care transition mgr to a significant other at home: No Do you presently have visiting nurse or other home services: No Alcohol intake: never Comment: medicated, see MAR Patient Tobacco Use Status: Never used Tobacco e-Cigarette/Vaping Use: Never Used Second Hand Smoke Exposure: No service: No Current occupational status: disabled Cognitive needs: No Hearing needs: No Vision needs: Yes Review of Systems Const All systems reviewed & are unremarkable except as noted in HPI and below Physical Exam Vital Signs: Last Vital Signs Pulse 88 01/02/24 11:14 BP 131/60 01/02/24 11:14 Pulse Ox 98 01/02/24 11:14 Oxygen Delivery Method Room Air 01/02/24 11:14 BMI result Body Mass Index 39.4 General: Appears afebrile. Alert and oriented. Mood and affect appropriate. Follows and participates in conversation appropriately. Respiratory effort is unlabored. No cough. Able to transition from sit to stand unassisted. Resp Effort & Inspection: normal respiratory effort, able to speak in complete sentences, Actively coughing Quality: productive (occasionally), not labored, no respiratory distress, no stridor and symmetric chest movement Cardio Jugular venous distension: no JVD Rate: regular rate Peripheral pulses: Peripheral pulses 2+ throughout General: Yes no CVA tenderness Back/Spine/Pelvis Other: Limited lumbar ROM due to pain. No midline tenderness to palpation in the thoracic or lumbar region. Moderate paraspinal tenderness to palpation in the lumbar spine bilaterally. Lumbar extension moderate pain, flexion and bending forward mild pain. Positive facet loading bilaterally. No groin pain with I/E hip rotations bilaterally. Back: no CVA tenderness Cervical Spine: cervical ROM normal and No Cervical spine tenderness Thoracic/Lumbar Spine: thoracic and lumbar spine normal to inspection, No Thoracic/lumbar spine scar(s), Lasegue's sign negative, straight leg raise negative bilaterally, pain with thoraco-lumbar ROM (moderate), paraspinal muscle tenderness, thoraco-lumbar ROM limited, No thoracic spinal tenderness and lumbar spinal tenderness (L4-S1) Pelvis: no buttock tenderness Sacroiliac joints: bilaterally nontender Extrem General: Yes capillary refill normal, Yes no clubbing, cyanosis or edema and Yes no calf tenderness Psych Appearance: grossly normal and well kempt Mental Status: mental status grossly normal Speech and movement: Normal speech and movement present and Clear speech present Affect: normal affect Attitude: cooperative Thought process: Normal thought process present Thought content: Normal thought content present, suicidality (none), no hallucinations and No Depressive thoughts present Insight: Good insight present (Psych) Judgement: Good judgement present (Psych) Results Reviewed Results Reviewed: Transthoracic ECHO 05/11/23 [facility] MR LUMBAR SPINE WITHOUT CONTRAST 03/05/22 FINDINGS: VERTEBRAL BODIES AND PARASPINAL STRUCTURES: There are mild grade 1 anterolistheses of L4 on L5 and L5 on S1. There is multilevel narrowing of intervertebral disc height with loss of signal throughout the lumbar spine. There are multilevel anterior and right-sided marginal osteophytes. Vertebral body heights are maintained and no fractures are demonstrated. There is an area of increased T1 and T2 signal in the body of L2 consistent with a hemangioma. Overall, marrow signal is homogenous. There are small bilateral renal cysts. The visualized pelvic structures are unremarkable. CONUS MEDULLARIS AND CAUDA EQUINA: Normal, terminating at the level of L1. The lower thoracic spinal cord appears normal. The cauda equina nerve roots and filum terminale appear normal. SPINAL LEVELS: T12-L1: There is mild bilateral facet arthropathy. Posterior disc contour is normal. There is no central stenosis or foraminal narrowing. L1-L2: There is mild bilateral facet arthropathy. Posterior disc contour is normal. There is no central stenosis or foraminal narrowing. L2-L3: There is mild bilateral facet arthropathy. There are small right-sided disc protrusion with minimal distortion of the ventral thecal sac but there is no central stenosis. The neural foramina are patent bilaterally. L3-L4: There is moderate bilateral facet arthropathy. There is a broad-based posterior disc protrusion with a small extruded component extending behind the body of L3 centrally and toward the right. There is minimal distortion of the ventral thecal sac. There is no central stenosis. There are foraminal disc protrusions with mild impingement on the exiting right L3 nerve root. L4-L5: There is markedly severe left and severe right facet arthropathy. There is a broad-based posterior disc protrusion with an annular fissure which flattens the ventral thecal sac and narrows the subarticular recesses. There are bilateral foraminal disc protrusions with impingement on the exiting L4 nerve roots. There is no significant central stenosis. L5-S1: There is markedly severe bilateral facet arthropathy. There is a shallow posterior disc protrusion with mild distortion of the ventral thecal sac but there is no central stenosis. There are left greater than right foraminal disc protrusions with impingement on the exiting left L5 nerve root. IMPRESSION: 1. At L4-L5 there is markedly severe left and severe right facet arthropathy. There is a posterior disc protrusion and there is narrowing of the subarticular recesses. There are bilateral foraminal disc protrusions with impingement on the exiting L4 nerve roots. There is no significant central stenosis. 2. At L5-S1 there is markedly severe facet arthropathy. There is a shallow posterior disc protrusion without central stenosis. There are left greater than right foraminal disc protrusions with impingement on the exiting left L5 nerve root. 3. At L3-L4 there is moderate facet arthropathy. There is a small posterior disc protrusion/extrusion without central stenosis. There are foraminal disc protrusions with impingement on the exiting right L3 nerve root. XR HIP, RIGHT 02/17/22 FINDINGS: Bone alignment is normal. No fracture or dislocation. Moderate right hip arthritis with joint space narrowing and osteophyte formation. Normal soft tissues. IMPRESSION: Moderate right hip arthritis. XR LUMBOSACRAL SPINE 02/01/22 FINDINGS: Lumbar spine alignment is normal. There is mild loss of disc space and endplate remodeling at multiple levels which is most apparent at T12-L1, overall similar to the prior study. There is osteophyte formation at multiple levels including relatively bulky osteophytes along the right side of the upper lumbar spine and there is multilevel facet arthropathy. There is atherosclerotic calcification of the abdominal aorta best visualized on lateral radiographs. Soft tissues are unremarkable. IMPRESSION: Mild multilevel degenerative changes of the lumbar spine overall similar to the prior study. XR/XR knee RT 2V 12/10/22 RIGHT KNEE: Total right knee arthroplasty without evidence of complication. LEFT KNEE: Tricompartmental osteoarthritis, most prominent within the medial compartment, unchanged. 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 There is no evidence of misuse, abuse or diversion at this time. MassPat reviewed and consistent. Refill sent for Belbuca 300 mcg BID and oxycodone 5mg once daily prn sent with advanced date of 01/07/24. Script provided for methocarbamol for muscle spasms. Side effects and precautions were discussed with patient. Schedule repeat right and left L3-L4 DR L5 Medial Branch RFA for axial low back pain with sedation and fluoroscopy. She last had this done in May-June 2022 and reports low back pain has been at baseline since few months ago. Previous Bilateral L3-L4-L5 Diagnostic MBBs provided her #1 for 80% pain relief for 8 hours and #2 for 75% relief for 1 day. Expectations, risks and benefits were reviewed with patient. Patient is aware she will be contacted to schedule this procedure. All questions and concerns have been answered and patient agreed with the plan. Follow up for pill count in 4-5 weeks and sooner if needed. Medications: New methocarbamol 500 mg PO BID 60 tabs 0RF muscle spasms 30 days M47.27 - Other spondylosis with radiculopathy, lumbosacral region, M62.838 - Other muscle spasm Refilled oxycodone Partial Fill upon patient request. 5 mg PO DAILY PRN 30 tabs 0RF pain (scale score 7-10) 30 days G89.4 - Chronic pain syndrome, M17.0 - Bilateral primary osteoarthritis of knee, M47.816 - Spondylosis without myelopathy or radiculopathy, lumbar region buprenorphine HCl 150 mcg buccal Q12H 60 ea 1RF pain 30 days G89.4 - Chronic pain syndrome, M17.0 - Bilateral primary osteoarthritis of knee, M25.561 - Pain in right knee, M47.27 - Other spondylosis with radiculopathy, lumbosacral region Discontinued tizanidine Discontinued Reason: Patient Completed Course 2 mg PO BID PRN 60 tabs 0RF for muscle spasm M47.27 - Other spondylosis with radiculopathy, lumbosacral region, M62.838 - Other muscle spasm Coding Level of Care Code Est Pt Level 4 (16531) Complex EM visit Add On G2211 Diagnoses Bilateral primary osteoarthritis of knee M17.0 Chronic pain syndrome G89.4 Opioid contract exists Z79.891 Lumbar spondylosis M47.816 Spondylosis of lumbosacral spine with radiculopathy M47.27 Muscle spasm M62.838
[2024-01-02 11:14] VITALS: BP 131/60; PULSE 88; O2SAT 98; BMI 39.4
== END 2024-01-02 11:32 | disposition home or self-care (01) ==
PROVIDERS: PCP Internal Medicine; Visit Provider Nurse Practitioner Family
DX: M17.0 Bilateral primary osteoarthritis of knee (principal); G89.4 Chronic pain syndrome; Z79.891 Long term (current) use of opiate analgesic; M47.816 Spondylosis without myelopathy or radiculopathy, lumbar region; M47.27 Other spondylosis with radiculopathy, lumbosacral region; M62.838 Other muscle spasm
CPT/HCPCS: 99214; G2211

== ENCOUNTER → 2024-01-02 11:03 | Outpatient (BNVA) | payer OTHER, MEDICAID, SELFPAY | PROVIDERS: PCP Internal Medicine; Visit Provider Nurse Practitioner Family | DX: M17.0 Bilateral primary osteoarthritis of knee (principal); G89.4 Chronic pain syndrome; M47.816 Spondylosis without myelopathy or radiculopathy, lumbar region; M47.27 Other spondylosis with radiculopathy, lumbosacral region; M62.838 Other muscle spasm; Z79.891 Long term (current) use of opiate analgesic; Z51.81 Encounter for therapeutic drug level monitoring | CPT/HCPCS: 99212 ==

== ENCOUNTER 2024-01-31 11:15 | Outpatient (AMB) | payer OTHER, MEDICAID, SELFPAY ==
--- NOTE | 2024-01-31 11:17 | MHC.OFFVIS ---
Intake Visit Reasons: PILL COUNT Intake Note: Celia comes in today for a pill count to oxycodone and a film count to belbuca, patient should have 1 tablet of oxycodone and presents with 29 tablets which she last took about 2 weeks ago belbuca should have 18 films and presents with 24 films which she last took today 01/31/24 at 8am. Pain today 06/25 [employer] Department Chair Required: No Accompanied by: Self / Same As Patient Allergies Penicillins [PENICILLINS] Allergy (Intermediate, Verified 01/02/24 11:14) RASH HPI Comments Details: Patient presents today for a pill and film count. For Belbuca, #18 films were expected, and #24 films were presented. For oxycodone, #0 pills were expected, and #29 pills were presented. This demonstrates a responsible attitude in regards to the medication regimen without any side effects. Patient continues to endorse axial low back pain and has pending repeat RFA. She had good results with lumbar RFA in 2022 providing her 80% pain relief for 10-12 months. She reports mild to moderate pain relief on current pain regime on Belbuca 300 mcg BID and oxycodone 1 tab per day prn for breakthrough pain. Denies any recent cough, cold, infection, fever, any significant changes in her medical history, medications or recent hospitalizations. Past Procedures: 08/26/23: Right subacromial bursa injection, US guided-80% ongoing pain relief 11/05/22: Right femoral nerve block- no right knee pain for 5 hours 07/07/22: Left L3-L4-L5 MB RFA-80% ongoing pain relief 06/16/22: Right L4-L5 TFESI-80% ongoing pain relief 05/26/22: Right L3-L4-L5 MB RFA- 80% pain relief 04/21/22: Right intra-articular hip steroid injection -ongoing 50% pain relief . 08/19/21: Bilateral L3-L4-L5 Diagnostic MBBs ? 80% pain relief for 8 hours 06/17/21: Bilateral Diagnostic L3-L4-L5 MBBs ? 75% relief for 1 day [facility] Medical History Myalgia, upper arm Osteoarthritis of right knee Lumbar spondylosis Foot pain, bilateral BRIDGETTE (obstructive sleep apnea) Asthma KAMILA positive Urticaria Obesity (BMI 30-39.9) Depression Anxiety Insomnia Vitamin D deficiency Chronic interstitial cystitis Irritable bowel syndrome (IBS) Arthralgia Osteoarthritis Esophageal stricture GERD (gastroesophageal reflux disease) Left lumbar radiculopathy CAD (coronary artery disease) Pure hypercholesterolemia Benign essential hypertension Surgical History History of surgery History of total right knee replacement (09/22/21) Hx of cystoscopy Status post balloon dilatation of esophageal stricture (~2005) History of cardiac catheterization History of colonoscopy History of nephrolithotomy with removal of calculi History of tooth extraction Family History Father Hypertension Mother Hypertension Diabetes CVD (cardiovascular disease) Daughter No problems noted. Family/Other FH: mental illness Other Mental health problem Substance abuse Social History Housing: Apartment Are you a primary ocular care technologist to a significant other at home: No Do you presently have visiting nurse or other home services: No Alcohol intake: never Comment: medicated, see MAR Patient Tobacco Use Status: Never used Tobacco e-Cigarette/Vaping Use: Never Used Second Hand Smoke Exposure: No service: No Current occupational status: disabled Cognitive needs: No Hearing needs: No Vision needs: Yes Review of Systems Const All systems reviewed & are unremarkable except as noted in HPI and below Physical Exam General: Appears afebrile. Alert and oriented. Mood and affect appropriate. Follows and participates in conversation appropriately. Respiratory effort is unlabored. No cough. Able to transition from sit to stand unassisted. Resp Effort & Inspection: normal respiratory effort, able to speak in complete sentences, Actively coughing Quality: productive (occasionally), not labored, no respiratory distress, no stridor and symmetric chest movement Cardio Rate: regular rate Peripheral pulses: Peripheral pulses 2+ throughout General: Yes no CVA tenderness Back/Spine/Pelvis Other: Limited lumbar ROM due to pain. No midline tenderness to palpation in the thoracic or lumbar region. Mild paraspinal tenderness to palpation in the lumbar spine bilaterally. Lumbar extension causes moderate pain, flexion and bending forward mild pain. Positive facet loading bilaterally. No groin pain with I/E hip rotations bilaterally. Back: no CVA tenderness Cervical Spine: cervical ROM normal and No Cervical spine tenderness Thoracic/Lumbar Spine: thoracic and lumbar spine normal to inspection, No Thoracic/lumbar spine scar(s), Lasegue's sign negative, straight leg raise negative bilaterally, pain with thoraco-lumbar ROM (moderate), paraspinal muscle tenderness, thoraco-lumbar ROM limited, No thoracic spinal tenderness and lumbar spinal tenderness (L4-S1) Pelvis: no buttock tenderness Sacroiliac joints: bilaterally nontender Extrem General: Yes capillary refill normal, Yes no clubbing, cyanosis or edema and Yes no calf tenderness Psych Appearance: grossly normal and well kempt Mental Status: mental status grossly normal Speech and movement: Normal speech and movement present and Clear speech present Affect: normal affect Attitude: cooperative Thought process: Normal thought process present Thought content: Normal thought content present, suicidality (none), no hallucinations and No Depressive thoughts present Insight: Good insight present (Psych) Judgement: Good judgement present (Psych) Results Reviewed Results Reviewed: Transthoracic ECHO 05/11/23 [facility] Cardiology MR LUMBAR SPINE WITHOUT CONTRAST 03/05/22 FINDINGS: VERTEBRAL BODIES AND PARASPINAL STRUCTURES: There are mild grade 1 anterolistheses of L4 on L5 and L5 on S1. There is multilevel narrowing of intervertebral disc height with loss of signal throughout the lumbar spine. There are multilevel anterior and right-sided marginal osteophytes. Vertebral body heights are maintained and no fractures are demonstrated. There is an area of increased T1 and T2 signal in the body of L2 consistent with a hemangioma. Overall, marrow signal is homogenous. There are small bilateral renal cysts. The visualized pelvic structures are unremarkable. CONUS MEDULLARIS AND CAUDA EQUINA: Normal, terminating at the level of L1. The lower thoracic spinal cord appears normal. The cauda equina nerve roots and filum terminale appear normal. SPINAL LEVELS: T12-L1: There is mild bilateral facet arthropathy. Posterior disc contour is normal. There is no central stenosis or foraminal narrowing. L1-L2: There is mild bilateral facet arthropathy. Posterior disc contour is normal. There is no central stenosis or foraminal narrowing. L2-L3: There is mild bilateral facet arthropathy. There are small right-sided disc protrusion with minimal distortion of the ventral thecal sac but there is no central stenosis. The neural foramina are patent bilaterally. L3-L4: There is moderate bilateral facet arthropathy. There is a broad-based posterior disc protrusion with a small extruded component extending behind the body of L3 centrally and toward the right. There is minimal distortion of the ventral thecal sac. There is no central stenosis. There are foraminal disc protrusions with mild impingement on the exiting right L3 nerve root. L4-L5: There is markedly severe left and severe right facet arthropathy. There is a broad-based posterior disc protrusion with an annular fissure which flattens the ventral thecal sac and narrows the subarticular recesses. There are bilateral foraminal disc protrusions with impingement on the exiting L4 nerve roots. There is no significant central stenosis. L5-S1: There is markedly severe bilateral facet arthropathy. There is a shallow posterior disc protrusion with mild distortion of the ventral thecal sac but there is no central stenosis. There are left greater than right foraminal disc protrusions with impingement on the exiting left L5 nerve root. IMPRESSION: 1. At L4-L5 there is markedly severe left and severe right facet arthropathy. There is a posterior disc protrusion and there is narrowing of the subarticular recesses. There are bilateral foraminal disc protrusions with impingement on the exiting L4 nerve roots. There is no significant central stenosis. 2. At L5-S1 there is markedly severe facet arthropathy. There is a shallow posterior disc protrusion without central stenosis. There are left greater than right foraminal disc protrusions with impingement on the exiting left L5 nerve root. 3. At L3-L4 there is moderate facet arthropathy. There is a small posterior disc protrusion/extrusion without central stenosis. There are foraminal disc protrusions with impingement on the exiting right L3 nerve root. XR HIP, RIGHT 02/17/22 FINDINGS: Bone alignment is normal. No fracture or dislocation. Moderate right hip arthritis with joint space narrowing and osteophyte formation. Normal soft tissues. IMPRESSION: Moderate right hip arthritis. XR LUMBOSACRAL SPINE 02/01/22 FINDINGS: Lumbar spine alignment is normal. There is mild loss of disc space and endplate remodeling at multiple levels which is most apparent at T12-L1, overall similar to the prior study. There is osteophyte formation at multiple levels including relatively bulky osteophytes along the right side of the upper lumbar spine and there is multilevel facet arthropathy. There is atherosclerotic calcification of the abdominal aorta best visualized on lateral radiographs. Soft tissues are unremarkable. IMPRESSION: Mild multilevel degenerative changes of the lumbar spine overall similar to the prior study. XR/XR knee RT 2V 12/10/22 RIGHT KNEE: Total right knee arthroplasty without evidence of complication. LEFT KNEE: Tricompartmental osteoarthritis, most prominent within the medial compartment, unchanged. Assessment & Plan Assessment & Plan (1) Bilateral primary osteoarthritis of knee: Code(s): M17.0 - Bilateral primary osteoarthritis of knee Category: Medical (2) Chronic pain syndrome: Code(s): G89.4 - Chronic pain syndrome Category: Medical (3) Opioid contract exists: Code(s): Z79.891 - [employer] (current) use of opiate analgesic Category: Medical (4) Lumbar spondylosis: Code(s): M47.816 - Spondylosis without myelopathy or radiculopathy, lumbar region Category: Medical (5) Spondylosis of lumbosacral spine with radiculopathy: Code(s): M47.27 - Other spondylosis with radiculopathy, lumbosacral region Category: Medical (6) Muscle spasm: Code(s): M62.838 - Other muscle spasm Category: Medical Plan Patient has shown accountability for her medication regimen and the pill and film count were correct today. There is no evidence of misuse, abuse or diversion at this time. MassPat reviewed and consistent. Refill sent for Belbuca 300 mcg BID sent with advanced date of 02/09/24. Will hold of on oxycodone 5mg once daily prn due to surplus today. Patient will notify our office when she is down to #5 tabs on oxycodone. Schedule repeat right and left L3-L4 DR L5 Medial Branch RFA for axial low back pain with sedation and fluoroscopy. She last had this done in May-June 2022 and reports low back pain has been at baseline since few months ago. Previous Bilateral L3-L4-L5 Diagnostic MBBs provided her #1 for 80% pain relief for 8 hours and #2 for 75% relief for 1 day. Expectations, risks and benefits were reviewed with patient. Patient is aware she will be contacted to schedule this procedure. All questions and concerns have been answered and patient agreed with the plan. Follow up for pill count in 4-5 weeks and sooner if needed. Medications: Changed From buprenorphine HCl 150 mcg buccal Q12H 30 days 60 ea 1RF pain G89.4 - Chronic pain syndrome, M17.0 - Bilateral primary osteoarthritis of knee, M25.561 - Pain in right knee, M47.27 - Other spondylosis with radiculopathy, lumbosacral region To buprenorphine HCl Partial Fill upon patient request. 150 mcg buccal Q12H 30 days 60 ea 0RF pain G89.4 - Chronic pain syndrome, M17.0 - Bilateral primary osteoarthritis of knee, M25.561 - Pain in right knee, M47.27 - Other spondylosis with radiculopathy, lumbosacral region Coding Level of Care Code Est Pt Level 4 (60908) Complex EM visit Add On G2211 Diagnoses Bilateral primary osteoarthritis of knee M17.0 Chronic pain syndrome G89.4 Opioid contract exists Z79.891 Lumbar spondylosis M47.816 Spondylosis of lumbosacral spine with radiculopathy M47.27 Muscle spasm M62.838
== END 2024-01-31 11:38 | disposition home or self-care (01) ==
PROVIDERS: PCP Internal Medicine; Visit Provider Nurse Practitioner Family
DX: M17.0 Bilateral primary osteoarthritis of knee (principal); G89.4 Chronic pain syndrome; Z79.891 Long term (current) use of opiate analgesic; M47.816 Spondylosis without myelopathy or radiculopathy, lumbar region; M47.27 Other spondylosis with radiculopathy, lumbosacral region; M62.838 Other muscle spasm
CPT/HCPCS: 99214; G2211

== ENCOUNTER → 2024-01-31 11:15 | Outpatient (BNVA) | payer OTHER, MEDICAID, SELFPAY | PROVIDERS: PCP Internal Medicine; Visit Provider Nurse Practitioner Family | DX: Z51.81 Encounter for therapeutic drug level monitoring (principal); M17.0 Bilateral primary osteoarthritis of knee; M47.816 Spondylosis without myelopathy or radiculopathy, lumbar region; M47.27 Other spondylosis with radiculopathy, lumbosacral region; M62.838 Other muscle spasm; Z79.891 Long term (current) use of opiate analgesic | CPT/HCPCS: 99212 ==

== ENCOUNTER 2024-02-08 13:16 | Outpatient (AMB) | payer OTHER, MEDICAID, SELFPAY ==
[2024-02-08 13:26] VITALS: BP 116/72; PULSE 83; O2SAT 96; BMI 38.9
--- NOTE | 2024-02-08 13:26 | A.OFFPC_ITS ---
Vital Signs 02/08/24 13:26 Height 4 ft 11 in Weight 192 lb 6 oz BMI 38.9 BP 116/72 Blood Pressure Location Lt brachial Position Sitting Pulse 83 Pulse Source Pulse Oximeter Pulse Oximetry (%) 96 Oxygen Delivery Method Room Air Intake Visit Reasons: 3mth f/u Sub Master Required: No Accompanied by: Self / Same As Patient Allergies Penicillins [PENICILLINS] Allergy (Intermediate, Verified 02/08/24 14:23) RASH Medication List - Last Reconciled 02/08/24 by Curt Falk MD acetaminophen 650 mg (2 x 325 mg) PO Q6H PRN 30 days [ADULT PULL-UPS As directed] albuterol sulfate 90 mcg/actuation 2 puffs PO Q6H PRN albuterol sulfate 2.5 mg (3 mL) inhalation Q6H PRN 30 days albuterol sulfate 90 mcg/actuation 2 inhalations inhalation Q6H PRN 30 days aspirin 81 mg PO DAILY atorvastatin 10 mg PO BEDTIME 90 days blood pressure kit-extra large As directed buprenorphine HCl 150 mcg buccal Q12H 30 days calcium carbonate (Oyster Shell Calcium) 500 mg PO DAILY 90 days escitalopram oxalate 20 mg PO DAILY 90 days ezetimibe 10 mg PO DAILY fluticasone furoate-vilanterol 200-25 mcg/dose (Breo Ellipta) 1 ea inhalation DAILY fluticasone propion-salmeterol 115-21 mcg/actuation (Advair HFA) 2 puffs inhalation Q12H 30 days hydroxyzine pamoate 50 mg PO TID ibuprofen 600 mg PO Q8H PRN ketotifen fumarate 0.025%(0.035%) drps ophthalmic (eye) lidocaine 5% leave on most painful area for up to 12 hrs topically daily; loratadine 10 mg PO DAILY PRN 90 days lorazepam mg PO methocarbamol 500 mg PO BID 30 days mirabegron ER (Myrbetriq) 50 mg PO DAILY montelukast 10 mg PO DAILY naloxone 4 mg/actuation (Narcan) 4 mg intranasal Q3M PRN [NEBULIZER and all related supplies As directed] omeprazole 40 mg PO DAILY 90 days oxycodone 5 mg PO DAILY PRN 30 days prazosin 1 mg PO BEDTIME quetiapine 50 mg PO BEDTIME trazodone 200 mg PO BEDTIME PRN Tobacco use date assessed: 02/08/24 Fall risk assessment: No Falls in past year Last assessed Fall Risk: 02/08/24 Dental Screening Dental Screen Date: 02/08/24 Did you have a dental visit in the last 12 months?: No Did you have a dental problem in the last 6 months where you did not have access to dental care?: No Was dental information given to patient?: No HPI 3mth f/u HPI Details Patient comes in today for her follow up visit States that she feels okay and that her chronic low back pain remains adequately controlled - she continues to follow up with pain management regularly every month She denies any headaches or dizziness Denies any chest pains, no SOB No nausea/vomiting, no abdominal pain No change in bowel habits noted States that she is scheduled for intravesical botox injection with urology next week (Tuesday) She did not have any follow up labs ordered or done for today's appointment COUNT INCLUDES [facility] Medical History (Updated 02/12/24 @ 14:34 by Curt Falk MD) Depression Anxiety Insomnia Myalgia, upper arm Osteoarthritis of right knee Lumbar spondylosis Foot pain, bilateral BRIDGETTE (obstructive sleep apnea) Asthma KAMILA positive Urticaria Obesity (BMI 30-39.9) Vitamin D deficiency Chronic interstitial cystitis Irritable bowel syndrome (IBS) Arthralgia Osteoarthritis Esophageal stricture GERD (gastroesophageal reflux disease) Left lumbar radiculopathy CAD (coronary artery disease) Pure hypercholesterolemia Benign essential hypertension Surgical History History of surgery History of total right knee replacement (09/22/21) Hx of cystoscopy Status post balloon dilatation of esophageal stricture (~2005) History of cardiac catheterization History of colonoscopy History of nephrolithotomy with removal of calculi History of tooth extraction Family History Father Hypertension Mother Hypertension Diabetes CVD (cardiovascular disease) Daughter No problems noted. Family/Other FH: mental illness Other Mental health problem Substance abuse Social History Housing: Apartment Are you a primary small animal caretaker to a significant other at home: No Do you presently have visiting nurse or other home services: No Alcohol intake: never Comment: medicated, see MAR Patient Tobacco Use Status: Never used Tobacco e-Cigarette/Vaping Use: Never Used Second Hand Smoke Exposure: No service: No Current occupational status: disabled Cognitive needs: No Hearing needs: No Vision needs: Yes Questionnaire PHQ-9 Over the last 2 weeks, how often have you been bothered by any of the following problems? 1. Little interest or pleasure in doing things: not at all 2. Feeling down, depressed, or hopeless: not at all 3. Trouble falling or staying asleep, or sleeping too much: not at all 4. Feeling tired or having little energy: not at all 5. Poor appetite or overeating: not at all 6. Feeling bad about yourself - or that you are a failure or have let yourself or your family down: not at all 7. Trouble concentrating on things, such as reading the newspaper or watching television: not at all 8. Moving or speaking so slowly that other people could have noticed. Or the opposite - being so fidgety or restless that you have been moving around a lot more than usual: not at all 9. Thoughts that you would be better off or of hurting yourself in some way: not at all Total score: 0 Depression Screening Interpretation: Negative Depression Screening Done: Yes 48979 - PHQ-9 Billing: Yes Source: Developed by Drs. Jorge Diallo, Yumiko Irvin, Celestino Banda and colleagues, with an educational mari from [employer]. Thrive Questionnaire Date Thrive assessed: 02/08/24 I am a: Patient What is your living situation today?: I have a steady place to live Within the past 12 months, did the food you bought not last and you didn't have the money to get more?: Never true Within the past 12 months, did you worry whether your food would run out before you got money to buy more?: Never true Do you have trouble paying for medicines?: No Do you have trouble getting transportation to medical appointments?: No Do you have trouble paying your heating and electricity bill?: No Do you have trouble taking care of your child, family member or friend?: No Do you have trouble with day-to-day activities such as bathing, preparing meals, shopping, managing finances, etc.?: No Are you currently unemployed and looking for a job?: No Are you interested in more education?: No Please select the resources that you would like help with: None Currently or been in a relationship where the following occur: No concerns reported THRIVE Score: 0 AUDIT C Alcohol Use Questionnaire (AUDIT-C) 1. How often do you have a drink containing alcohol?: Never 3. How often do you have six or more drinks on one occasion?: Never Total Score: 0 Score Reviewed/Action Taken: Yes ADRIANA-7 AMB Questionnaire ADRIANA-7 Date ADRIANA - 7 assessed: 02/08/24 Feeling nervous, anxious, or on edge: 0 = Not at all Not being able to stop or control worryin = Not at all Worrying too much about different things: 0 = Not at all Trouble relaxin = Not at all Being so restless that it is hard to sit still: 0 = Not at all Becoming easily annoyed or irritable: 0 = Not at all Feeling afraid as if something awful might happen: 0 = Not at all Total ADRIANA-7 score (0-4 normal; 5-9 mild; 10-14 moderate; 15-21 severe): 0 Source: Developed by Drs. Jorge Diallo, Yumiko Irvin, Celestino Banda and colleagues, with an educational mari from [employer]. Review of Systems Const Reports difficulty sleeping (mostly due to frequent trips to the bathroom), Denies fatigue, Denies fever(s) and Denies headache(s) ENT Denies dysphagia, Denies dizziness, Denies otalgia, Denies headache(s), Denies neck pain, Denies odynophagia and Denies sore throat Card Denies chest pain, Denies palpitations and Denies dyspnea Resp Denies chest congestion, Denies cough and Denies dyspnea GI Denies abdominal pain, Denies constipation, Denies dysphagia, Denies heartburn, Denies diarrhea, Denies nausea, Denies odynophagia and Denies vomiting Denies difficulty voiding, Reports nocturia, Reports dysuria (on and off - has chronic IC) and Reports urinary urgency (at times) Musc Reports back pain (over the right lower back), Reports arthralgias (involving m ultiple joints - right knee and hip and right shoulder), Denies neck pain, Reports radiating pain into limb (into the right thigh and leg; right shoulder pain going into neck/arm) and Reports stiffness Skin/Breast Denies rash Neuro Denies dizziness and Denies headache(s) Psych Denies anxiety Endo Denies fatigue and Denies palpitations Stanton/Lymph Details: swelling of both hands and feet lately Physical exam (Primary Care) Vital Signs: Last Vital Signs Pulse 83 02/08/24 13:26 BP 116/72 02/08/24 13:26 Pulse Ox 96 02/08/24 13:26 Oxygen Delivery Method Room Air 02/08/24 13:26 BMI result Body Mass Index 38.9 Tobacco/Smoking Status: Tobacco use Status Tobacco use date assessed 02/08/24 02/08/24 13:28 Patient Tobacco Use Status Never used Tobacco 02/08/24 13:28 Tobacco use type 07/26/23 14:03 e-Cigarette/Vaping Use Never Used 02/08/24 13:28 PHQ-9: PHQ-9 Score PHQ-9: Total score 0 02/08/24 14:34 Depression Screening Interpretation: Negative Thrive Assessment: Date of Thrive Assessment Date Thrive assessed 02/08/24 02/08/24 13:28 Currently or been in a relationship where the following occur: No concerns reported Const General: no acute distress and alert HENMT Ears: TM's normal bilaterally and EAC's normal Throat: Yes posterior oropharynx normal and Yes tonsils normal (no TP congestion noted) Neck Neck: Yes no lymphadenopathy and Yes supple Thyroid: Thyroid normal Resp Auscultation: clear to auscultation bilaterally, no rales and no wheezes Cardio Rate: regular rate Rhythm: regular rhythm Heart sounds: no murmurs GI Palpation (GI): Soft to palpation and nontender Auscultation: normal bowel sounds General: Yes no CVA tenderness Back/Spine/Pelvis Back: no CVA tenderness Thoracic/Lumbar Spine: paraspinal muscle tenderness on the right, lumbar spinal tenderness (chronic) and straight leg raise positive (slightly ) Skin Rashes: no rashes Extrem General: Yes no clubbing, cyanosis or edema Right upper extremity: shoulder/upper arm Details: tenderness Location: of the A-C joint and abnormal ROM (ROM limited due to pain - unable to raise right arm above shoulder level) Right lower extremity: knee Details: tenderness; no swelling Left lower extremity: knee Details: tenderness; no swelling Coding Level of Care Code Est Pt Level 4 (24220) Complex EM visit Add On G2211 Diagnoses Spondylosis of lumbosacral spine with radiculopathy M47.27 Primary osteoarthritis of right hip M16.11 Bilateral primary osteoarthritis of knee M17.0 Polyarthralgia M25.50 Pure hypercholesterolemia E78.00 Benign essential hypertension I10 Moderate persistent asthma without complication J45.40 Asthma severity: moderate Asthma persistence: persistent Asthma complication type: uncomplicated Impaired fasting glucose R73.01 Gastroesophageal reflux disease without esophagitis K21.9 Esophagitis presence: without esophagitis Esophageal stricture K22.2 Irritable bowel syndrome, unspecified type K58.9 Irritable bowel syndrome type: unspecified Vitamin D deficiency E55.9 Chronic interstitial cystitis N30.10 Nephrolithiasis N20.0 Insomnia, unspecified type G47.00 Insomnia type: unspecified Anxiety F41.9 Episode of recurrent major depressive disorder, unspecified depression episode severity F33.9 Depression Type: major depressive disorder Major depression recurrence: recurrent Active/Remission status: currently active Major depression episode severity: unspecified Obesity (BMI 30-39.9) E66.9 Assessment & Plan Assessment & Plan (1) Spondylosis of lumbosacral spine with radiculopathy: Code(s): M47.27 - Other spondylosis with radiculopathy, lumbosacral region Category: Medical Plan: MRI of the lumbar spine done in February 2022 revealed (+) markedly severe left and severe right facet arthropathy with a posterior disc protrusion and narrowing of the subarticular recesses as well as bilateral foraminal disc protrusions with impingement on the exiting L4 nerve roots at L4-L5. There is no significant central stenosis. At L5-S1 there is markedly severe facet arthropathy with a shallow posterior disc protrusion without central stenosis. There are left greater than right foraminal disc protrusions with impingement on the exiting left L5 nerve root. Lastly, at L3-L4 there is moderate facet arthropathy with a small posterior disc protrusion/extrusion without central stenosis. There are foraminal disc protrusions with impingement on the exiting right L3 nerve root. S/P bilateral lumbar RFA with sedation and fluoroscopy?on 05/26/22 and 06/09/22, and right L4-L5 TFESI?with local and fluoroscopy in 06/2022 - patient reports (+) significant improvement of her joint symptoms since Reinforced activity and weight-lifting restrictions Continue?Flexeril?10 mg 3 times a day as needed, Butrans 20 mcg patch once a week and Percocet 5-325 mg QD PRN for breakthrough pain Follow up with [facility] as scheduled - feels that she is doing well with her current pain management regimen (2) Primary osteoarthritis of right hip: Code(s): M16.11 - Unilateral primary osteoarthritis, right hip Category: Medical Plan: X-rays of the right hip done on 02/17/2022 revealed (+) moderate right hip OA Follow up with orthopedics as scheduled (3) Bilateral primary osteoarthritis of knee: Code(s): M17.0 - Bilateral primary osteoarthritis of knee Category: Medical Plan: S/P total right knee arthroplasty by Dr. Deras on 09/22/2021, with significant improvement of her knee symptoms since Follow up with orthopedics as scheduled (4) Polyarthralgia: Code(s): M25.50 - Pain in unspecified joint Category: Medical Plan: Patient has been tested previously for inflammatory joint disease, including RA and SLE - tests have all come back negative Has also been checked for Lyme disease, which came back negative Follow up with [facility] as scheduled (5) Pure hypercholesterolemia: Code(s): E78.00 - Pure hypercholesterolemia, unspecified Category: Medical Plan: Reinforced low cholesterol diet Continue Ezetimibe 10 mg QD and Atorvastatin 10 mg QD - she is tolerating her Rx so far (could not tolerate Rosuvastatin in the past due to myalgia) Will have her recheck her labs and fasting lipids in 3 months for follow-up (6) Benign essential hypertension: Code(s): I10 - Essential (primary) hypertension Category: Medical Plan: Reinforced low sodium diet - goal is systolic BP of at least 130 to 140 mm or less Patient is reminded to continue monitoring her blood pressure regularly (7) Asthma: Code(s): J45.909 - Unspecified asthma, uncomplicated Category: Medical Qualifiers: Asthma severity: moderate Asthma persistence: persistent Asthma complication type: uncomplicated Qualified Code(s): J45.40 - Moderate persistent asthma, uncomplicated Plan: Stable Continue Dupixent 200 mg SQ every 2 weeks, Breo Ellipta 200-25 mcg 1 inhalation QD, Montelukast 10 mg QD and Albuterol HFA 2 inhalations every 6 hours as needed Follow-up with pulmonary as scheduled (8) Impaired fasting glucose: Code(s): R73.01 - Impaired fasting glucose Category: Medical Plan: HgbA1c was normal at 5.4% on her labs done back in October 2023 Reinforced low carb/low calorie diet (9) GERD (gastroesophageal reflux disease): Code(s): K21.9 - Gastro-esophageal reflux disease without esophagitis Category: Medical Qualifiers: Esophagitis presence: without esophagitis Qualified Code(s): K21.9 - Gastro-esophageal reflux disease without esophagitis Plan: Dietary restrictions reinforced Continue Omeprazole 40 mg QD (10) Esophageal stricture: Code(s): K22.2 - Esophageal obstruction Category: Medical Plan: S/P balloon dilatation by Dr. Nunez in 2005 -? states that she currently has no trouble swallowing Follow-up with Dr. Nunez as scheduled (11) Irritable bowel syndrome (IBS): Code(s): K58.9 - Irritable bowel syndrome, unspecified Category: Medical Qualifiers: Irritable bowel syndrome type: unspecified Qualified Code(s): K58.9 - Irritable bowel syndrome without diarrhea Plan: Continue Dicyclomine 20 mg QID PRN Follow-up with GI as scheduled (12) Vitamin D deficiency: Code(s): E55.9 - Vitamin D deficiency, unspecified Category: Medical Plan: Continue Vitamin D2 37939 units weekly (13) Chronic interstitial cystitis: Comment: S/P hydrodistention on 07/07/20 Code(s): N30.10 - Interstitial cystitis (chronic) without hematuria Category: Medical Plan: Continue Phenazopyridine 200 mg every 6 hours as needed He has been seeing Dr. Lopez for urology follow up and management over the past few years and is now requesting referral to see another urologist for a second opinion She is now going to [facility] for continuing management of her urinary issues (14) Nephrolithiasis: Code(s): N20.0 - Calculus of kidney Category: Medical Plan: Follow up renal US done back in July 2021 revealed (+) bilateral nonobstructive echogenic renal calculi, with no caliectasis or hydronephrosis seen Follow up with urology as scheduled (15) Insomnia: Code(s): G47.00 - Insomnia, unspecified Category: Medical Qualifiers: Insomnia type: unspecified Qualified Code(s): G47.00 - Insomnia, unspecified Plan: Sleep hygiene reinforced States that her Quetiapine helps with her sleep at night (16) Anxiety: Code(s): F41.9 - Anxiety disorder, unspecified Category: Medical Plan: Continue Clonazepam 1 mg 3 times a day as needed and Bupropion ER 200 mg QD in AM (17) Depression: Code(s): F32.9 - Major depressive disorder, single episode, unspecified Category: Medical Qualifiers: Depression Type: major depressive disorder Major depression recurrence: recurrent Active/Remission status: currently active Major depression episode severity: unspecified Qualified Code(s): F33.9 - Major depressive disorder, recurrent, unspecified Plan: Continue Quetiapine 200 mg Q HS; is also on Bupropion ER 200 mg QD Follow-up with Psychiatry as scheduled (18) Obesity (BMI 30-39.9): Code(s): E66.9 - Obesity, unspecified Category: Medical Plan: Reinforced diet; exercise and weight loss may be unrealistic and limited due to her physical issues but she is advised to try to stay as active as she can Plan Follow up in 3 months Orders: Orders Complete Blood Count Auto Diff 3 Months D64.9 - Anemia, unspecified Lipid Panel 3 Months E78.00 - Pure hypercholesterolemia, unspecified TSH reflex Free T4 3 Months E78.00 - Pure hypercholesterolemia, unspecified UA CC w/rflx Micro + Cult 3 Months R30.0 - Dysuria Vitamin D 25-OH Total 3 Months E55.9 - Vitamin D deficiency, unspecified Comprehensive [place]. Panel Fast 3 Months E78.00 - Pure hypercholesterolemia, unspecified Hemoglobin A1c 3 Months R73.01 - Impaired fasting glucose
== END 2024-02-08 14:28 | disposition home or self-care (01) ==
PROVIDERS: PCP Internal Medicine; Visit Provider Internal Medicine
DX: M47.27 Other spondylosis with radiculopathy, lumbosacral region (principal); M16.11 Unilateral primary osteoarthritis, right hip; M17.0 Bilateral primary osteoarthritis of knee; F33.9 Major depressive disorder, recurrent, unspecified; M25.50 Pain in unspecified joint; E78.00 Pure hypercholesterolemia, unspecified; I10 Essential (primary) hypertension; J45.40 Moderate persistent asthma, uncomplicated; R73.01 Impaired fasting glucose; K21.9 Gastro-esophageal reflux disease without esophagitis; K22.2 Esophageal obstruction; K58.9 Irritable bowel syndrome, unspecified

== ENCOUNTER → 2024-02-08 13:16 | Outpatient (BNVA) | payer OTHER, MEDICAID, SELFPAY | PROVIDERS: PCP Internal Medicine; Visit Provider Internal Medicine | DX: M47.27 Other spondylosis with radiculopathy, lumbosacral region (principal); M16.11 Unilateral primary osteoarthritis, right hip; M17.12 Unilateral primary osteoarthritis, left knee; M25.50 Pain in unspecified joint; E78.00 Pure hypercholesterolemia, unspecified; I10 Essential (primary) hypertension; J45.40 Moderate persistent asthma, uncomplicated; R73.01 Impaired fasting glucose; K21.9 Gastro-esophageal reflux disease without esophagitis; K22.2 Esophageal obstruction; K58.9 Irritable bowel syndrome, unspecified; E55.9 Vitamin D deficiency, unspecified; N30.10 Interstitial cystitis (chronic) without hematuria; N20.0 Calculus of kidney; G47.00 Insomnia, unspecified; F41.9 Anxiety disorder, unspecified; F33.9 Major depressive disorder, recurrent, unspecified; E66.9 Obesity, unspecified; Z68.38 Body mass index [BMI] 38.0-38.9, adult; Z79.899 Other long term (current) drug therapy; Z96.651 Presence of right artificial knee joint | CPT/HCPCS: 96127; 99212 ==

== ENCOUNTER 2024-03-06 10:53 | Outpatient (AMB) | payer OTHER, MEDICAID, SELFPAY ==
--- NOTE | 2024-03-06 10:54 | A.OFFVIS_ITS ---
Vital Signs 3 03/06/24 11:04 Height 4 ft 11 in Weight 194 lb 8 oz BMI 39.3 BP 171/72 H Blood Pressure Location Rt brachial Position Sitting Pulse 86 Pulse Source Pulse Oximeter Pulse Oximetry (%) 98 Oxygen Delivery Method Room Air Intake Visit Reasons: PILL COUNT Intake Note: Celia comes in today for a pill count to oxycodone and a film count to belbuca. Patient should have 0 tablets of oxycodone and presents with 5 tablets which she last took 3 days ago, belbuca should have 12 films and presents with 19 films which she states she last took today 03/06/24 at 7:30am. Pain today 05/28. 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 I let her know that this is a violation in the opioid contact and unfortunately will result in a suspension from the opioid program. Due to her being in the high risk category it will be an indefinite suspension from the opioid program. Aware she can still be seen for interventional procedures and injections, just will not be able to have opioids prescribed from this office. Folder Inspector Required: No Accompanied by: Self / Same As Patient Allergies Penicillins [PENICILLINS] Allergy (Intermediate, Verified 03/06/24 11:07) RASH HPI Comments Details: Patient presents today for a pill and film count. For Belbuca, #12 films were expected, and #19 films were presented. For oxycodone, #0 pills were expected, and #5 pills were presented. Pill count is correct today. However, [facility], it was noted that patient filled Percocet on 02/14/24 from another provider without notifying our office for urological procedure with Dr. Cardona. Unfortunately, this demonstrates an irresponsible attitude towards his medication regimen and is resulting in suspension from opioid program today. Patient reports she was planning to stop opioids anyway and request compassion script for Belbuca at a 75 mcg dose, instead currently at 150 mcg. Patient is aware that she will not be eligible for opioid management indefinitely due to high opioid risk but can continue to receive interventional and non-opioid medical management through our office. Lumbar RFA has been approved and patient is in the process for scheduling this. Denies any recent cough, cold, infection, fever, any significant changes in her medical history, medications or recent hospitalizations. Past Procedures: 08/26/23: Right subacromial bursa injection, US guided-80% ongoing pain relief 11/05/22: Right femoral nerve block- no right knee pain for 5 hours 07/07/22: Left L3-L4-L5 MB RFA-80% ongoing pain relief 06/16/22: Right L4-L5 TFESI-80% ongoing pain relief 05/26/22: Right L3-L4-L5 MB RFA- 80% pain relief 04/21/22: Right intra-articular hip steroid injection -ongoing 50% pain relief . 08/19/21: Bilateral L3-L4-L5 Diagnostic MBBs ? 80% pain relief for 8 hours 06/17/21: Bilateral Diagnostic L3-L4-L5 MBBs ? 75% relief for 1 day [facility] Medical History Depression Anxiety Insomnia Myalgia, upper arm Osteoarthritis of right knee Lumbar spondylosis Foot pain, bilateral BRIDGETTE (obstructive sleep apnea) Asthma KAMILA positive Urticaria Obesity (BMI 30-39.9) Vitamin D deficiency Chronic interstitial cystitis Irritable bowel syndrome (IBS) Arthralgia Osteoarthritis Esophageal stricture GERD (gastroesophageal reflux disease) Left lumbar radiculopathy CAD (coronary artery disease) Pure hypercholesterolemia Benign essential hypertension Surgical History History of surgery History of total right knee replacement (09/22/21) Hx of cystoscopy Status post balloon dilatation of esophageal stricture (~2005) History of cardiac catheterization History of colonoscopy History of nephrolithotomy with removal of calculi History of tooth extraction Family History Father Hypertension Mother Hypertension Diabetes CVD (cardiovascular disease) Daughter No problems noted. Family/Other FH: mental illness Other Mental health problem Substance abuse Social History Housing: Apartment Are you a primary school childcare attendant to a significant other at home: No Do you presently have visiting nurse or other home services: No Alcohol intake: never Comment: medicated, see MAR Patient Tobacco Use Status: Never used Tobacco e-Cigarette/Vaping Use: Never Used Second Hand Smoke Exposure: No service: No Current occupational status: disabled Cognitive needs: No Hearing needs: No Vision needs: Yes Review of Systems Const All systems reviewed & are unremarkable except as noted in HPI and below Physical Exam General: Appears afebrile. Alert and oriented. Mood and affect appropriate. Follows and participates in conversation appropriately. Respiratory effort is unlabored. No cough. Able to transition from sit to stand unassisted. Psych Appearance: grossly normal and well kempt Mental Status: mental status grossly normal Speech and movement: Normal speech and movement present and Clear speech present Affect: normal affect Attitude: cooperative Thought process: Normal thought process present Thought content: Normal thought content present, suicidality (none), no hallucinations and No Depressive thoughts present Insight: Good insight present (Psych) Judgement: Good judgement present (Psych) Results Reviewed Results Reviewed: Transthoracic ECHO 05/11/23 [facility] Card[facility] MR LUMBAR SPINE WITHOUT CONTRAST 03/05/22 FINDINGS: VERTEBRAL BODIES AND PARASPINAL STRUCTURES: There are mild grade 1 anterolistheses of L4 on L5 and L5 on S1. There is multilevel narrowing of intervertebral disc height with loss of signal throughout the lumbar spine. There are multilevel anterior and right-sided marginal osteophytes. Vertebral body heights are maintained and no fractures are demonstrated. There is an area of increased T1 and T2 signal in the body of L2 consistent with a hemangioma. Overall, marrow signal is homogenous. There are small bilateral renal cysts. The visualized pelvic structures are unremarkable. CONUS MEDULLARIS AND CAUDA EQUINA: Normal, terminating at the level of L1. The lower thoracic spinal cord appears normal. The cauda equina nerve roots and filum terminale appear normal. SPINAL LEVELS: T12-L1: There is mild bilateral facet arthropathy. Posterior disc contour is normal. There is no central stenosis or foraminal narrowing. L1-L2: There is mild bilateral facet arthropathy. Posterior disc contour is normal. There is no central stenosis or foraminal narrowing. L2-L3: There is mild bilateral facet arthropathy. There are small right-sided disc protrusion with minimal distortion of the ventral thecal sac but there is no central stenosis. The neural foramina are patent bilaterally. L3-L4: There is moderate bilateral facet arthropathy. There is a broad-based posterior disc protrusion with a small extruded component extending behind the body of L3 centrally and toward the right. There is minimal distortion of the ventral thecal sac. There is no central stenosis. There are foraminal disc protrusions with mild impingement on the exiting right L3 nerve root. L4-L5: There is markedly severe left and severe right facet arthropathy. There is a broad-based posterior disc protrusion with an annular fissure which flattens the ventral thecal sac and narrows the subarticular recesses. There are bilateral foraminal disc protrusions with impingement on the exiting L4 nerve roots. There is no significant central stenosis. L5-S1: There is markedly severe bilateral facet arthropathy. There is a shallow posterior disc protrusion with mild distortion of the ventral thecal sac but there is no central stenosis. There are left greater than right foraminal disc protrusions with impingement on the exiting left L5 nerve root. IMPRESSION: 1. At L4-L5 there is markedly severe left and severe right facet arthropathy. There is a posterior disc protrusion and there is narrowing of the subarticular recesses. There are bilateral foraminal disc protrusions with impingement on the exiting L4 nerve roots. There is no significant central stenosis. 2. At L5-S1 there is markedly severe facet arthropathy. There is a shallow posterior disc protrusion without central stenosis. There are left greater than right foraminal disc protrusions with impingement on the exiting left L5 nerve root. 3. At L3-L4 there is moderate facet arthropathy. There is a small posterior disc protrusion/extrusion without central stenosis. There are foraminal disc protrusions with impingement on the exiting right L3 nerve root. XR HIP, RIGHT 02/17/22 FINDINGS: Bone alignment is normal. No fracture or dislocation. Moderate right hip arthritis with joint space narrowing and osteophyte formation. Normal soft tissues. IMPRESSION: Moderate right hip arthritis. XR LUMBOSACRAL SPINE 02/01/22 FINDINGS: Lumbar spine alignment is normal. There is mild loss of disc space and endplate remodeling at multiple levels which is most apparent at T12-L1, overall similar to the prior study. There is osteophyte formation at multiple levels including relatively bulky osteophytes along the right side of the upper lumbar spine and there is multilevel facet arthropathy. There is atherosclerotic calcification of the abdominal aorta best visualized on lateral radiographs. Soft tissues are unremarkable. IMPRESSION: Mild multilevel degenerative changes of the lumbar spine overall similar to the prior study. XR/XR knee RT 2V 08/25/23 RIGHT KNEE: Total right knee arthroplasty without evidence of complication. LEFT KNEE: Tricompartmental osteoarthritis, most prominent within the medial compartment, unchanged. Assessment & Plan Assessment & Plan (1) Spondylosis of lumbosacral spine with radiculopathy: Code(s): M47.27 - Other spondylosis with radiculopathy, lumbosacral region Category: Medical (2) Lumbar spondylosis: Code(s): M47.816 - Spondylosis without myelopathy or radiculopathy, lumbar region Category: Medical (3) Right knee pain: Code(s): M25.561 - Pain in right knee Category: Medical (4) Bilateral primary osteoarthritis of knee: Code(s): M17.0 - Bilateral primary osteoarthritis of knee Category: Medical (5) Chronic pain syndrome: Code(s): G89.4 - Chronic pain syndrome Category: Medical Plan Unfortunately, patient has not shown accountability for opioid compliance program and has filled Percocet from another provider according to [facility] Review and not notifying our office. Her medication regimen and the pill and film count were correct today. We will send compassion scripts for decreased Belbuca 75 mcg BID and oxycodone 5 mg #30 for one month supply to taper off medications. Given her risk is high, she will be suspended indefinitely. Discussed treatments for potential withdrawal symptoms. Patient is aware that she can continue receive alternative treatment options and is in the process for scheduling repeat repeat right and left L3-L4 DR L5 Medial Branch RFA for axial low back pain which has been approved by her insurance recently. All questions and concerns have been answered and patient agreed with the plan. Follow up after lumbar RFA procedure and sooner if needed. Medications: Changed 2 From oxycodone Partial Fill upon patient request. 5 mg PO DAILY 30 days PRN 30 tabs 0RF pain (scale score 7-10) G89.4 - Chronic pain syndrome, M17.0 - Bilateral primary osteoarthritis of knee, M47.816 - Spondylosis without myelopathy or radiculopathy, lumbar region To oxycodone Partial Fill upon patient request. Please use this prescription to taper off medication, 4 weeks compassionate prescription. 5 mg PO DAILY 30 days PRN 30 tabs 0RF pain (scale score 7-10) G89.4 - Chronic pain syndrome, M17.0 - Bilateral primary osteoarthritis of knee, M47.816 - Spondylosis without myelopathy or radiculopathy, lumbar region From buprenorphine HCl Partial Fill upon patient request. 150 mcg buccal Q12H 30 days 60 ea 0RF pain M25.561 - Pain in right knee, M47.27 - Other spondylosis with radiculopathy, lumbosacral region, M47.816 - Spondylosis without myelopathy or radiculopathy, lumbar region To buprenorphine HCl 75 mcg buccal Q12H 30 days 60 ea 0RF pain M25.561 - Pain in right knee, M47.27 - Other spondylosis with radiculopathy, lumbosacral region, M47.816 - Spondylosis without myelopathy or radiculopathy, lumbar region Coding Level of Care Code Est Pt Level 4 (57517) Complex EM visit Add On G2211 Diagnoses Spondylosis of lumbosacral spine with radiculopathy M47.27 Lumbar spondylosis M47.816 Right knee pain M25.561 Bilateral primary osteoarthritis of knee M17.0 Chronic pain syndrome G89.4
[2024-03-06 11:04] VITALS: BP 171/72; PULSE 86; O2SAT 98; BMI 39.3
== END 2024-03-06 11:28 | disposition home or self-care (01) ==
PROVIDERS: PCP Internal Medicine; Visit Provider Nurse Practitioner Family
DX: M47.27 Other spondylosis with radiculopathy, lumbosacral region (principal); M47.816 Spondylosis without myelopathy or radiculopathy, lumbar region; M25.561 Pain in right knee; M17.0 Bilateral primary osteoarthritis of knee; G89.4 Chronic pain syndrome
CPT/HCPCS: 99214; G2211

== ENCOUNTER → 2024-03-06 10:53 | Outpatient (BNVA) | payer OTHER, MEDICAID, SELFPAY | PROVIDERS: PCP Internal Medicine; Visit Provider Nurse Practitioner Family | DX: Z51.81 Encounter for therapeutic drug level monitoring (principal); M47.27 Other spondylosis with radiculopathy, lumbosacral region; M47.816 Spondylosis without myelopathy or radiculopathy, lumbar region; M25.561 Pain in right knee; M17.0 Bilateral primary osteoarthritis of knee; F11.20 Opioid dependence, uncomplicated; G89.4 Chronic pain syndrome | CPT/HCPCS: 99212 ==

== ENCOUNTER 2024-05-02 10:54 | Outpatient (AMB) | payer OTHER, MEDICAID, SELFPAY ==
--- NOTE | 2024-05-02 11:04 | A.OFFVISCC_ITS ---
Intake Visit Reasons: Intake Allergies Penicillins [PENICILLINS] Allergy (Intermediate, Verified 03/06/24 11:07) RASH Medication List - Last Reconciled 05/02/24 by Celia Nova CNP acetaminophen 650 mg (2 x 325 mg) PO Q6H PRN 30 days [ADULT PULL-UPS As directed] [ADULT PULL-UPS As directed] albuterol sulfate 2.5 mg (3 mL) inhalation Q6H PRN 30 days albuterol sulfate 90 mcg/actuation 2 inhalations inhalation Q6H PRN 30 days atorvastatin 10 mg PO BEDTIME 90 days blood pressure kit-extra large As directed blood pressure kit-extra large As directed buprenorphine HCl (Belbuca) 150 mcg buccal Q12H calcium carbonate (Oyster Shell Calcium) 500 mg PO DAILY 90 days escitalopram oxalate 20 mg PO DAILY 90 days fluticasone propion-salmeterol 115-21 mcg/actuation (Advair HFA) 2 puffs inhalation Q12H 30 days ibuprofen 600 mg PO Q8H PRN loratadine 10 mg PO DAILY PRN 90 days lorazepam mg PO BID PRN naloxone 4 mg/actuation (Narcan) 4 mg intranasal Q3M PRN [NEBULIZER and all related supplies As directed] omeprazole 40 mg PO DAILY 90 days quetiapine 100 mg PO BEDTIME trazodone 100 mg PO BEDTIME PRN [wipes As directed] HPI HPI Intake: Details: Patient presents for evaluation and treatment of opioid use Referred by her primary care office after discharge from [facility] Patient reports more than ten years of oxycodone prescribed (chronic pain) States that she was referred to pain management about 2 years ago and continued on those medications in addition to procedures. She states that on February 12 had a preocedure on her bladder which was quite painful and was prescribed percocet from that provider She reports that due to picking up the percocet and not informing pain management of this this prescription, she was told they would not longer prescribe her percocet. Notes from Pain management align with patient report Was being prescribed both belbuca and oxycodone She states that after this she attempted to detox at home on her own, but became very ill (vomiting, loose stools, anxious, restless) She decided to continue taking the remained of her prescription and then called PCP office for referral Today she reports Currently taking Belbuca total 150mcg BID (2 75mcg films BID) Oxycodone 5mg QD She reports that when she started Belbuca, she started at 450mcg, and has been reducing dose. In terms of pain, still having pain, but will be having injection soon Patient denies any history of substance use Denies any history of alcohol use Daughter from opioid overdose about 5 years ago and her oldest daughter unexpectedly as well almost 3 years ago She is engaged with providers. Medication list reviewed and updated Review of Systems Const Reports as per HPI Physical Exam Const General: cooperative, healthy appearing and well groomed Orientation/consciousness: patient oriented x3 Limitations: no limitations Neuro General: patient oriented x3 Psych Appearance: well kempt Speech and movement: Normal speech and movement present Affect: normal affect Attitude: cooperative Thought process: Normal thought process present Thought content: Normal thought content present Insight: Good insight present (Psych) Judgement: Good judgement present (Psych) Results AMB 14 Panel Urine Drug Screen Urine Marijuana (THC) Negative Last Edit by Leonor Reynolds RN on 05/02/24 13:21 Urine Cocaine Negative Last Edit by Leonor Reynolds RN on 05/02/24 13:21 Urine Morphine Negative Last Edit by Leonor Reynolds RN on 05/02/24 13:21 Urine Methamphetamine Negative Last Edit by Leonor Reynolds RN on 05/02/24 13:21 Urine Amphetamine Negative Last Edit by Leonor Reynolds RN on 05/02/24 13:21 Urine Benzodiazepine Positive Last Edit by Leonor Reynolds RN on 05/02/24 13 :21 Urine Barbiturates Negative Last Edit by Leonor Reynolds RN on 05/02/24 13:2 1 Urine Methadone Negative Last Edit by Leonor Reynolds RN on 05/02/24 13:21 Urine Buprenorphine Positive Last Edit by Leonor Reynolds RN on 05/02/24 13: 21 Urine Tricyclic Antidepressant Negative Last Edit by Leonor Reynolds RN on 05/02/24 13:21 Urine MDMA Negative Last Edit by Leonor Reynolds RN on 05/02/24 13:21 Urine Oxycodone Positive Last Edit by Leonor Reynolds RN on 05/02/24 13:21 Urine Phencyclidine Negative Last Edit by Leonor Reynolds RN on 05/02/24 13: 21 Urine Propoxyphene Negative Last Edit by Leonor Reynolds RN on 05/02/24 13:2 1 Results Reviewed Results Reviewed: Laboratory Last Values POC Urine Buprenorphine Positive 05/02/24 13:17 POC Urine Morphine Negative 05/02/24 13:17 POC Urine Oxycodone Positive 05/02/24 13:17 POC Urine Methadone Negative 05/02/24 13:17 POC Urine Propoxyphene Negative 05/02/24 13:17 POC Urine Barbiturates Negative 05/02/24 13:17 POC U Tricyclic Antidpr Negative 05/02/24 13:17 POC Urine PCP Negative 05/02/24 13:17 POC Ur Amphetamines Negative 05/02/24 13:17 POC Ur Methamphetamine Negative 05/02/24 13:17 POC Urine MDMA Negative 05/02/24 13:17 POC Ur Benzodiazepine Positive 05/02/24 13:17 POC Urine Cocaine Negative 05/02/24 13:17 POC Ur Marijuana (THC) Negative 05/02/24 13:17 PFSH Medical History Depression Anxiety Insomnia Myalgia, upper arm Osteoarthritis of right knee Lumbar spondylosis Foot pain, bilateral BRIDGETTE (obstructive sleep apnea) Asthma KAMILA positive Urticaria Obesity (BMI 30-39.9) Vitamin D deficiency Chronic interstitial cystitis Irritable bowel syndrome (IBS) Arthralgia Osteoarthritis Esophageal stricture GERD (gastroesophageal reflux disease) Left lumbar radiculopathy CAD (coronary artery disease) Pure hypercholesterolemia Benign essential hypertension Surgical History History of surgery History of total right knee replacement (09/22/21) Hx of cystoscopy Status post balloon dilatation of esophageal stricture (~2005) History of cardiac catheterization History of colonoscopy History of nephrolithotomy with removal of calculi History of tooth extraction Family History Father Hypertension Mother Hypertension Diabetes CVD (cardiovascular disease) Daughter No problems noted. Family/Other FH: mental illness Other Mental health problem Substance abuse Social History Housing: Apartment Are you a primary certified caregiver to a significant other at home: No Do you presently have visiting nurse or other home services: No Alcohol intake: never Comment: medicated, see MAR Patient Tobacco Use Status: Never used Tobacco e-Cigarette/Vaping Use: Never Used Second Hand Smoke Exposure: No service: No Current occupational status: disabled Cognitive needs: No Hearing needs: No Vision needs: Yes Assessment & Plan Assessment & Plan (1) Opioid dependence: Code(s): F11.20 - Opioid dependence, uncomplicated Category: Medical Plan: * does not meet criteria for substance use disorder. however at high risk for withdrawal and possible complications from withdrawal due to age and comorbid issues * no documentation of concern for misuse/overuse * will continue Belbuca at 150mcg BID * patient aware that t/w is unable to continue oxycodone, patient agreeable and states that oxycodone was used as a PRN * provided patient with new naloxone * follow up 2 weeks via telehealth --encouraged to call office should she need to be seen sooner Orders: Orders AMB 14 Panel Urine Drug Screen 05/02/24 Z51.81 - Encounter for therapeutic drug level monitoring Medications: New buprenorphine HCl (Belbuca) 150 mcg buccal Q12H 60 ea 0RF Discontinued buprenorphine HCl Discontinued Reason: Doctor's Order 75 mcg buccal Q12H 30 days 60 ea 0RF pain M25.561 - Pain in right knee, M47.27 - Other spondylosis with radiculopathy, lumbosacral region, M47.816 - Spondylosis without myelopathy or radiculopathy, lumbar region
== END 2024-05-02 13:49 | disposition home or self-care (01) ==
PROVIDERS: PCP Internal Medicine; Visit Provider Nurse Practitioner Psychiatric/Mental Health
DX: Z51.81 Encounter for therapeutic drug level monitoring (principal)

== ENCOUNTER → 2024-05-02 10:54 | Outpatient (BNVA) | payer OTHER, MEDICAID, SELFPAY | PROVIDERS: PCP Internal Medicine; Visit Provider Nurse Practitioner Psychiatric/Mental Health | DX: M25.561 Pain in right knee (principal); M47.27 Other spondylosis with radiculopathy, lumbosacral region; M47.816 Spondylosis without myelopathy or radiculopathy, lumbar region; F11.20 Opioid dependence, uncomplicated; Z51.81 Encounter for therapeutic drug level monitoring | CPT/HCPCS: 80307; 99202 ==

== ENCOUNTER 2024-05-11 10:16 | Outpatient (REF) | payer OTHER, SELFPAY ==
[2024-05-11 10:34] LABS: MANUAL DIFF FLAG NO
[2024-05-11 11:06] LABS: Basophils Percent Auto 0.7 % (0-2); Eosinophils Absolute Auto 0.3 X10*3/uL (0.0-0.4); Eosinophils Percent Auto 6.2 % (0-4); Hematocrit 37.8 % (37.0-47.0); Imm Gran Abs Auto 0.02 X10*3/uL (0.00-0.03); Imm Gran Pct Auto 0.4 % (0.0-0.4); Lymphocytes Absolute Auto 1.5 X10*3/uL (1.2-4.9); Lymphocytes Percent Auto 28.8 % (20-40); Mean Corpuscular HGB Conc 31.7 g/dl (31.0-35.0); Mean Corpuscular Hemoglobin 26.6 pg (27.0-33.0); Mean Corpuscular Volume 83.8 fL (80.0-98.0); Mean Platelet Volume 11.4 fL (9.4-12.3); Monocytes Absolute Auto 0.3 X10*3/uL (0.1-1.2); Monocytes Percent Auto 4.7 % (2-11); Neutrophils Absolute Auto 3.2 x10*3/uL (2.0-8.3); Neutrophils Percent Auto 59.2 % (45-73); Platelet Count 185 X10*3/uL (160-400); Red Blood Count 4.51 X10*6/uL (4.20-5.50); Red Cell Distribution Width 14.1 % (11.0-16.0); White Blood Count 5.3 X10*3/uL (4.8-10.8)
[2024-05-11 11:17] LABS: Estimated Average Glucose 114 mg/dL; Hemoglobin A1C 120.4191 umol/L; Hemoglobin A1c % 5.6 % (<6.0); Total Hemoglobin (HGBA1C) 3158.3527 umol/L
[2024-05-11 11:20] LABS: Appearance Urine Clear; Color Urine Yellow; Glucose Urine UA Negative (Negative); Leukocyte Esterase Urine Trace (Negative); Nitrite Urine Negative (Negative); PH 6.5 (5.0-9.0); UMIC TRIGGER UACC YES; Urine Blood Negative (Negative); Urine Ketones Negative (Negative); Urine Protein Trace mg/dL (Neg-Trace)
[2024-05-11 11:25] LABS: Bacteria Urine None Seen (None Seen); Hyaline Casts Urine 0-2 /LPF (0-2); RBC Urine 0-2 /HPF (0-2); WBC Urine 0-5 /HPF (0-5)
[2024-05-11 13:12] LABS: TSH reflex Free T4 2.57 uIU/mL (0.32-4.0); Vitamin D 25-OH Total 34.2 ng/mL (>30)
[2024-05-11 13:21] LABS: Alanine Aminotransferase 17 U/L (0-31); Albumin Level 4.2 g/dL (3.5-5.0); Anion Gap 11 (12-20); Aspartate Amino Transferase 20 U/L (5-31); Bilirubin Total 0.3 mg/dL (0.0-1.0); Blood Urea Nitrogen 13 mg/dL (9-16); Calcium 9.3 mg/dL (8.4-10.2); Carbon Dioxide 28 mmol/L (22-29); Chloride 109 mmol/L (96-108); Cholesterol 135 mg/dL (<200); Estimated Glomerular Filt Rate > 60; Glucose Fasting 108 mg/dL (60-99); HDL Cholesterol 41 mg/dL (>40); LDL Cholesterol Calculated 65 mg/dL (<100); Sodium 144 mmol/L (135-145); Total Protein 7.4 g/dL (6.5-8.0); Triglycerides 146 mg/dL (<150)
[2024-05-11 14:20] LABS: Alkaline Phosphatase 92 U/L (39-117)
== END 2024-05-11 10:17 | disposition home or self-care (01) ==
LOC: HO.LAB 10:16
PROVIDERS: PCP Internal Medicine; Visit Provider Internal Medicine
DX: E78.00 Pure hypercholesterolemia, unspecified (principal); E55.9 Vitamin D deficiency, unspecified; D64.9 Anemia, unspecified; R73.01 Impaired fasting glucose; R30.0 Dysuria
CPT/HCPCS: 36415; 80053; 80061; 81001; 82306; 83036; 84443; 85025

== ENCOUNTER 2024-05-16 12:18 | Outpatient (AMB) | payer OTHER, MEDICAID, SELFPAY ==
[2024-05-16 12:51] VITALS: BP 120/70; PULSE 84; O2SAT 94; BMI 40.3
--- NOTE | 2024-05-16 12:51 | MHC.PC.OV ---
Vital Signs 05/16/24 12:51 Height 4 ft 11 in Weight 199 lb 8 oz BMI 40.3 BP 120/70 Blood Pressure Location Lt brachial Position Sitting Pulse 84 Pulse Source Pulse Oximeter Pulse Oximetry (%) 94 Oxygen Delivery Method Room Air Intake Visit Reasons: 3mth f/u Registered Veterinary Technician Required: No Accompanied by: Self / Same As Patient Allergies Penicillins [PENICILLINS] Allergy (Intermediate, Verified 05/16/24 13:24) RASH Medication List - Last Reconciled 05/16/24 by Curt Falk MD acetaminophen 650 mg (2 x 325 mg) PO Q6H PRN 30 days [ADULT PULL-UPS As directed] [ADULT PULL-UPS As directed] albuterol sulfate 2.5 mg (3 mL) inhalation Q6H PRN 30 days albuterol sulfate 90 mcg/actuation 2 inhalations inhalation Q6H PRN 30 days atorvastatin 10 mg PO BEDTIME 90 days blood pressure kit-extra large As directed buprenorphine HCl (Belbuca) 150 mcg buccal Q12H calcium carbonate (Oyster Shell Calcium) 500 mg PO DAILY 90 days escitalopram oxalate 20 mg PO DAILY 90 days ezetimibe 10 mg PO DAILY fluticasone propion-salmeterol 115-21 mcg/actuation (Advair HFA) 2 puffs inhalation Q12H 30 days ibuprofen 600 mg PO Q8H PRN loratadine 10 mg PO DAILY PRN 90 days lorazepam mg PO BID PRN naloxone 4 mg/actuation (Narcan) 4 mg intranasal Q3M PRN [NEBULIZER and all related supplies As directed] omeprazole 40 mg PO DAILY 90 days quetiapine 100 mg PO BEDTIME trazodone 100 mg PO BEDTIME PRN [wipes As directed] Tobacco use date assessed: 05/16/24 Fall risk assessment: No Falls in past year Last assessed Fall Risk: 05/16/24 Dental Screening Dental Screen Date: 05/16/24 Did you have a dental visit in the last 12 months?: Yes Did you have a dental problem in the last 6 months where you did not have access to dental care?: No Was dental information given to patient?: Patient has dentist HPI 3mth f/u HPI Details Patient comes in today for her follow up visit States that she feels okay She denies any headaches or dizziness Denies any chest pains, no SOB No nausea/vomiting, no abdominal pain No change in bowel habits noted States that she still has chronic low back pain and will continue to follow up with pain management for interventional procedures only States that she was discharged from their opioid prescription program due to filling a prescription for Percocet from urology back in January 2024 after intravesical injection and supposedly failed to notify the office of this (patient states that she just simply forgot to call them) She has since been seeing Celia Nova, who has been helping wean her off opioids and she has a follow up appointment with Celia tomorrow She denies any headaches or dizziness Denies any chest pains, no SOB No nausea/vomiting, no abdominal pain No change in bowel habits noted She had her follow up labs done a few days ago - to discuss her results [facility] Medical History Depression Anxiety Insomnia Myalgia, upper arm Osteoarthritis of right knee Lumbar spondylosis Foot pain, bilateral BRIDGETTE (obstructive sleep apnea) Asthma KAMILA positive Urticaria Obesity (BMI 30-39.9) Vitamin D deficiency Chronic interstitial cystitis Irritable bowel syndrome (IBS) Arthralgia Osteoarthritis Esophageal stricture GERD (gastroesophageal reflux disease) Left lumbar radiculopathy CAD (coronary artery disease) Pure hypercholesterolemia Benign essential hypertension Surgical History History of surgery History of total right knee replacement (09/22/21) Hx of cystoscopy Status post balloon dilatation of esophageal stricture (~2005) History of cardiac catheterization History of colonoscopy History of nephrolithotomy with removal of calculi History of tooth extraction Family History Father Hypertension Mother Hypertension Diabetes CVD (cardiovascular disease) Daughter No problems noted. Family/Other FH: mental illness Other Mental health problem Substance abuse Social History Housing: Apartment Are you a primary adult daycare coordinator to a significant other at home: No Do you presently have visiting nurse or other home services: No Alcohol intake: never Comment: medicated, see MAR Patient Tobacco Use Status: Never used Tobacco e-Cigarette/Vaping Use: Never Used Second Hand Smoke Exposure: No service: No Current occupational status: disabled Cognitive needs: No Hearing needs: No Vision needs: Yes Questionnaire PHQ-9 Over the last 2 weeks, how often have you been bothered by any of the following problems? 1. Little interest or pleasure in doing things: not at all 2. Feeling down, depressed, or hopeless: not at all 3. Trouble falling or staying asleep, or sleeping too much: not at all 4. Feeling tired or having little energy: not at all 5. Poor appetite or overeating: not at all 6. Feeling bad about yourself - or that you are a failure or have let yourself or your family down: not at all 7. Trouble concentrating on things, such as reading the newspaper or watching television: not at all 8. Moving or speaking so slowly that other people could have noticed. Or the opposite - being so fidgety or restless that you have been moving around a lot more than usual: not at all 9. Thoughts that you would be better off or of hurting yourself in some way: not at all Total score: 0 Depression Screening Interpretation: Negative Depression Screening Done: Yes 75568 - PHQ-9 Billing: Yes Source: Developed by Drs. Jorge Diallo, Yumiko Irvin, Celestino Banda and colleagues, with an educational mari from [employer] Thrive Questionnaire Date Thrive assessed: 05/16/24 I am a: Patient What is your living situation today?: I have a steady place to live Within the past 12 months, did the food you bought not last and you didn't have the money to get more?: Never true Within the past 12 months, did you worry whether your food would run out before you got money to buy more?: Never true Do you have trouble paying for medicines?: No Do you have trouble getting transportation to medical appointments?: No Do you have trouble paying your heating and electricity bill?: No Do you have trouble taking care of your child, family member or friend?: No Do you have trouble with day-to-day activities such as bathing, preparing meals, shopping, managing finances, etc.?: No Are you currently unemployed and looking for a job?: No Are you interested in more education?: No Please select the resources that you would like help with: None Currently or been in a relationship where the following occur: No concerns reported THRIVE Score: 0 AUDIT C Alcohol Use Questionnaire (AUDIT-C) 1. How often do you have a drink containing alcohol?: Never 3. How often do you have six or more drinks on one occasion?: Never Total Score: 0 Score Reviewed/Action Taken: Yes ADRIANA-7 AMB Questionnaire ADRIANA-7 Date ADRIANA - 7 assessed: 05/16/24 Feeling nervous, anxious, or on edge: 0 = Not at all Not being able to stop or control worryin = Not at all Worrying too much about different things: 0 = Not at all Trouble relaxin = Not at all Being so restless that it is hard to sit still: 0 = Not at all Becoming easily annoyed or irritable: 0 = Not at all Feeling afraid as if something awful might happen: 0 = Not at all Total ADRIANA-7 score (0-4 normal; 5-9 mild; 10-14 moderate; 15-21 severe): 0 Source: Developed by Drs. Jorge Diallo, Yumiko Irvin, Celestino Banda and colleagues, with an educational mari from [employer] Review of Systems Const Reports difficulty sleeping (mostly due to frequent trips to the bathroom), Denies fatigue, Denies fever(s), Denies headache(s) and Reports weight gain ENT Denies dysphagia, Denies dizziness, Denies otalgia, Denies headache(s), Denies neck pain, Denies odynophagia and Denies sore throat Card Denies chest pain, Denies palpitations and Denies dyspnea Resp Denies chest congestion, Denies cough and Denies dyspnea GI Denies abdominal pain, Denies constipation, Denies dysphagia, Denies heartburn, Denies diarrhea, Denies nausea, Denies odynophagia and Denies vomiting Denies difficulty voiding, Reports nocturia, Reports dysuria (on and off - has chronic IC - symptoms have improved slightly with Botox) and Reports urinary urgency (at times) Musc Reports back pain (over the right lower back), Reports arthralgias (involving multiple joints - right knee and hip and right shoulder), Denies neck pain, Reports radiating pain into limb (into the right thigh and leg; right shoulder pain going into neck/arm) and Reports stiffness Skin/Breast Denies rash Neuro Denies dizziness and Denies headache(s) Psych Denies anxiety Endo Denies fatigue and Denies palpitations Physical exam (Primary Care) Vital Signs: Last Vital Signs Pulse 84 05/16/24 12:51 BP 120/70 05/16/24 12:51 Pulse Ox 94 05/16/24 12:51 Oxygen Delivery Method Room Air 05/16/24 12:51 BMI result Body Mass Index 40.3 Tobacco/Smoking Status: Tobacco use Status Tobacco use date assessed 05/16/24 05/16/24 12:58 Patient Tobacco Use Status Never used Tobacco 05/16/24 12:58 Tobacco use type 07/26/23 14:03 e-Cigarette/Vaping Use Never Used 05/16/24 12:58 PHQ-9: PHQ-9 Score PHQ-9: Total score 0 05/16/24 12:58 Depression Screening Interpretation: Negative Thrive Assessment: Date of Thrive Assessment Date Thrive assessed 05/16/24 05/16/24 12:58 Currently or been in a relationship where the following occur: No concerns reported Const General: no acute distress and alert HENMT Ears: TM's normal bilaterally and EAC's normal Throat: Yes posterior oropharynx normal and Yes tonsils normal (no TP congestion noted) Neck Neck: Yes supple and No lymphadenopathy Thyroid: Thyroid normal Resp Auscultation: clear to auscultation bilaterally, no rales and no wheezes Cardio Rate: regular rate Rhythm: regular rhythm Heart sounds: no murmurs GI Palpation (GI): Soft to palpation and nontender Auscultation: normal bowel sounds General: Yes no CVA tenderness Back/Spine/Pelvis Back: no CVA tenderness Thoracic/Lumbar Spine: paraspinal muscle tenderness on the right, lumbar spinal tenderness (chronic) and straight leg raise positive (slightly ) Skin Rashes: no rashes Extrem General: Yes no clubbing, cyanosis or edema Right upper extremity: shoulder/upper arm Details: tenderness Location: of the A-C joint and abnormal ROM (ROM limited due to pain - unable to raise right arm above shoulder level) Right lower extremity: knee Details: tenderness; no swelling Left lower extremity: knee Details: tenderness; no swelling Results Reviewed Results Reviewed: Laboratory Tests 05/11/24 05/11/24 10:24 10:31 WBC 5.3 Hgb 12.0 Hct 37.8 Plt Count 185 Sodium 144 Potassium 4.0 Creatinine 0.82 Estimated GFR > 60 Fasting Glucose 108 H Hemoglobin A1c % 5.6 Calcium 9.3 D AST 20 ALT 17 Triglycerides 146 Cholesterol 135 LDL Cholesterol, Calc 65 HDL Cholesterol 41 25-OH Vitamin D Total 34.2 TSH 2.57 Ur Specific [place] 1.020 Urine Protein Trace Urine Glucose (UA) Negative Urine Blood Negative Urine Nitrite Negative Ur Leukocyte Esterase Trace H Coding Level of Care Code Est Pt Level 4 (07573) Diagnoses Pure hypercholesterolemia E78.00 Benign essential hypertension I10 Impaired fasting glucose R73.01 Spondylosis of lumbosacral spine with radiculopathy M47.27 Primary osteoarthritis of right hip M16.11 Bilateral primary osteoarthritis of knee M17.0 Polyarthralgia M25.50 Moderate persistent asthma without complication J45.40 Asthma severity: moderate Asthma persistence: persistent Asthma complication type: uncomplicated Gastroesophageal reflux disease without esophagitis K21.9 Esophagitis presence: without esophagitis Esophageal stricture K22.2 Irritable bowel syndrome, unspecified type K58.9 Irritable bowel syndrome type: unspecified Vitamin D deficiency E55.9 Chronic interstitial cystitis N30.10 Nephrolithiasis N20.0 Insomnia, unspecified type G47.00 Insomnia type: unspecified Anxiety F41.9 Episode of recurrent major depressive disorder, unspecified depression episode severity F33.9 Depression Type: major depressive disorder Major depression recurrence: recurrent Active/Remission status: currently active Major depression episode severity: unspecified Obesity (BMI 30-39.9) E66.9 Additional Codes PHQ-9 - 83593 - PHQ-9 Billing: Yes ([id number]) Assessment & Plan Assessment & Plan (1) Pure hypercholesterolemia: Code(s): E78.00 - Pure hypercholesterolemia, unspecified Category: Medical Plan: Results of her labs done a few days ago reviewed and discussed with patient Reinforced low cholesterol diet Continue Ezetimibe 10 mg QD and Atorvastatin 10 mg QD - she has been tolerating her Rx without any problems (could not tolerate Rosuvastatin in the past due to myalgia) Will have her recheck her labs and fasting lipids in 3 months for follow-up (2) Benign essential hypertension: Code(s): I10 - Essential (primary) hypertension Category: Medical Plan: Reinforced low sodium diet - goal is systolic BP of at least 130 to 140 mm or less Patient is reminded to continue monitoring her blood pressure regularly (3) Impaired fasting glucose: Code(s): R73.01 - Impaired fasting glucose Category: Medical Plan: Her HgbA1c was at 5.6% on her labs done a few days ago; it was also normal at 5.4% when previously checked in October 2023 Reinforced low carb/low calorie diet (4) Spondylosis of lumbosacral spine with radiculopathy: Code(s): M47.27 - Other spondylosis with radiculopathy, lumbosacral region Category: Medical Plan: MRI of the lumbar spine done in February 2022 revealed (+) markedly severe left and severe right facet arthropathy with a posterior disc protrusion and narrowing of the subarticular recesses as well as bilateral foraminal disc protrusions with impingement on the exiting L4 nerve roots at L4-L5. There is no significant central stenosis. At L5-S1 there is markedly severe facet arthropathy with a shallow posterior disc protrusion without central stenosis. There are left greater than right foraminal disc protrusions with impingement on the exiting left L5 nerve root. Lastly, at L3-L4 there is moderate facet arthropathy with a small posterior disc protrusion/extrusion without central stenosis. There are foraminal disc protrusions with impingement on the exiting right L3 nerve root. S/P bilateral lumbar RFA with sedation and fluoroscopy?on 05/26/22 and 06/09/22, and right L4-L5 TFESI?with local and fluoroscopy in 06/2022 - patient reports (+) significant improvement of her joint symptoms since Reinforced activity and weight-lifting restrictions Continue?Flexeril?10 mg 3 times a day as needed She was also on Butrans 20 mcg patch once a week and Percocet 5-325 mg QD PRN for breakthrough pain previously but she has been discharged from the opioid Rx program supposedly due to violating her pain management agreement States that she will continue to follow up with pain management but only for interventional procedures now She is currently seeing Celia Nova to help her wean herself off completely from opioids and feels that she is doing well in this regard (5) Primary osteoarthritis of right hip: Code(s): M16.11 - Unilateral primary osteoarthritis, right hip Category: Medical Plan: X-rays of the right hip done on 02/17/2022 revealed (+) moderate right hip OA Follow up with orthopedics as scheduled (6) Bilateral primary osteoarthritis of knee: Code(s): M17.0 - Bilateral primary osteoarthritis of knee Category: Medical Plan: S/P total right knee arthroplasty by Dr. Deras on 09/22/2021, with significant improvement of her knee symptoms since Follow up with orthopedics as scheduled (7) Polyarthralgia: Code(s): M25.50 - Pain in unspecified joint Category: Medical Plan: Patient has been tested previously for inflammatory joint disease, including RA and SLE - tests have all come back negative Has also been checked for Lyme disease, which came back negative Follow up with [facility] [place] Rheumatology as scheduled (8) Asthma: Code(s): J45.909 - Unspecified asthma, uncomplicated Category: Medical Qualifiers: Asthma severity: moderate Asthma persistence: persistent Asthma complication type: uncomplicated Qualified Code(s): J45.40 - Moderate persistent asthma, uncomplicated Plan: Stable Continue Dupixent 200 mg SQ every 2 weeks, Breo Ellipta 200-25 mcg 1 inhalation QD, Montelukast 10 mg QD and Albuterol HFA 2 inhalations every 6 hours as needed Follow-up with pulmonary as scheduled (9) GERD (gastroesophageal reflux disease): Code(s): K21.9 - Gastro-esophageal reflux disease without esophagitis Category: Medical Qualifiers: Esophagitis presence: without esophagitis Qualified Code(s): K21.9 - Gastro-esophageal reflux disease without esophagitis Plan: Dietary restrictions reinforced Continue Omeprazole 40 mg QD (10) Esophageal stricture: Code(s): K22.2 - Esophageal obstruction Category: Medical Plan: S/P balloon dilatation by Dr. Nunez in 2005 -? states that she currently has no trouble swallowing Follow-up with Dr. Nunez as scheduled (11) Irritable bowel syndrome (IBS): Code(s): K58.9 - Irritable bowel syndrome, unspecified Category: Medical Qualifiers: Irritable bowel syndrome type: unspecified Qualified Code(s): K58.9 - Irritable bowel syndrome without diarrhea Plan: Continue Dicyclomine 20 mg QID PRN Follow-up with GI as scheduled (12) Vitamin D deficiency: Code(s): E55.9 - Vitamin D deficiency, unspecified Category: Medical Plan: Continue Vitamin D2 65760 units weekly (13) Chronic interstitial cystitis: Comment: S/P hydrodistention on 07/07/20 Code(s): N30.10 - Interstitial cystitis (chronic) without hematuria Category: Medical Plan: Continue Phenazopyridine 200 mg every 6 hours as needed He has been seeing Dr. Lopez for urology follow up and management over the past few years and requested for a referral to see another urologist for a second opinion She is now going to [facility] for continuing management of her urinary issues - states that she had intravesical injection with Botox back in January 2024 and it has helped somewhat Follow up with urology as scheduled (14) Nephrolithiasis: Code(s): N20.0 - Calculus of kidney Category: Medical Plan: Follow up renal US done back in July 2021 revealed (+) bilateral nonobstructive echogenic renal calculi, with no caliectasis or hydronephrosis seen Follow up with urology as scheduled (15) Insomnia: Code(s): G47.00 - Insomnia, unspecified Category: Medical Qualifiers: Insomnia type: unspecified Qualified Code(s): G47.00 - Insomnia, unspecified Plan: Sleep hygiene reinforced States that her Quetiapine helps with her sleep at night (16) Anxiety: Code(s): F41.9 - Anxiety disorder, unspecified Category: Medical Plan: Continue Clonazepam 1 mg 3 times a day as needed and Bupropion ER 200 mg QD in AM (17) Depression: Code(s): F32.9 - Major depressive disorder, single episode, unspecified Category: Medical Qualifiers: Depression Type: major depressive disorder Major depression recurrence: recurrent Active/Remission status: currently active Major depression episode severity: unspecified Qualified Code(s): F33.9 - Major depressive disorder, recurrent, unspecified Plan: Continue Quetiapine 200 mg Q HS; is also on Bupropion ER 200 mg QD Follow-up with Psychiatry as scheduled (18) Obesity (BMI 30-39.9): Code(s): E66.9 - Obesity, unspecified Category: Medical Plan: Reinforced diet; exercise and weight loss may be unrealistic and limited due to her physical issues but she is advised to try to stay as active as she can Plan Follow up in 3 months Orders: Orders Complete Blood Count Auto Diff 3 Months D64.9 - Anemia, unspecified Comprehensive Bellamy. Panel Fast 3 Months E78.00 - Pure hypercholesterolemia, unspecified Lipid Panel 3 Months E78.00 - Pure hypercholesterolemia, unspecified Hemoglobin A1c 3 Months R73.01 - Impaired fasting glucose UA CC w/rflx Micro + Cult 3 Months R30.0 - Dysuria Vitamin D 25-OH Total 3 Months E55.9 - Vitamin D deficiency, unspecified
--- OUTSIDE RECORDS SUMMARY | 2024-05-16 14:36 | XMS_ITS | Continuity of Care Document ---
Author Organization [facility] Address [address] [place] [address] Phone Care Team Providers Care Elevator Dispatcher Name Role Phone John Liu MD Unavailable Unavailable Allergies, Adverse Reactions, Alerts Substance Reaction Status Criticality No Known Allergies Active No Inform ation Medications Medication Instructions Dosage Effective Dates (start - stop) Status Comments ATORVASTATIN 40 MG TABLET take 1 tablet by mouth once daily - Active LEVOTHYROXINE 75 MCG TABLET take 1 tablet by mouth once daily for THYROID - Active CARVEDILOL 6.25 MG TABLET take 1 tablet by mouth twice a day with food - Active FAMOTIDINE 20 MG TABLET take 1 tablet by mouth twice a day for GASTRITIS OR GERD - Active Boostrix Tdap 2.5 Lf unit-8 mcg-5 Lf/0.5 mL intramuscular suspension inject 0.5 milliliter by intramuscular route once - Active Claritin Liqui-Gel 10 mg capsule take 1 pill by oral route every day 1 pill - Active Dry Eye Relief 1 %-0.2 %-0.2 % drops for dry eye up to four times daily - Active Cipro HC 0.2 %-1 % ear drops,suspension instill 3 drop by otic route every 12 hours into affected ear(s) 3.00 drop - Active FLUTICASONE PROP 50 MCG SPRAY instill 2 spray into each nostril once daily - Active atorvastatin 40 mg tablet take 1 Tablet by Oral route once 1 Tablet - No Longer Active Procedures Procedure Date EAR IRRIGATION INTERMED EXAM,ESTAB PAT LIMITED EXAM,ESTAB PAT. SYST BP >/= 140 MM HG DIAST BP <80 MM HG ADMIN OF INFLUENZA VACCI FLU VACC PRSV FREE INC ANTIG HANDLING OF SPECIMEN INTERMED EXAM,ESTAB PAT Health Ed Nonbillable Health Ed Nonbillable INTERMED EXAM,ESTAB PAT ADMIN OF VACCINE VENIPUNCTURE INTERMED EXAM, NEW PAT Other Application Psychotherapy, 30 Min With Patient And O r Family M PASTRY COOK APPRENTICE - WALK IN [facility] PT Psychotherapy, 30 Min With Patient And O r Family M PASTRY COOK APPRENTICE - WALK IN [facility] PT Non-Billable Phone Consultation Psychotherapy, 30 Min With Patient And O r Family M PASTRY COOK APPRENTICE - WALK IN [facility] PT Psychotherapy, 45 Min With Patient And O r Family M TREATMENT Psychotherapy, 45 Min With Patient And O r Family M TREATMENT INTERMED EXAM,ESTAB PAT HANDLING OF SPECIMEN Psychotherapy, 60 Min With Patient And O r Family M TREATMENT Psychotherapy, 60 Min With Patient And O r Family M TREATMENT Psychotherapy, 60 Min With Patient And O r Family M TREATMENT Psychotherapy, 45 Min With Patient And O r Family M TREATMENT Psychotherapy, 60 Min With Patient And O r Family M TREATMENT Psychotherapy, 60 Min With Patient And O r Family M TREATMENT EYE EXAM ESTABLISHED PAT REFRACTION Psychotherapy, 60 Min With Patient And O r Family M TREATMENT Psychotherapy, 60 Min With Patient And O r Family M ASSESSMENT/INTAKE Non-Billable Phone Consultation Non-Billable Phone Consultation Non-Billable Phone Consultation Psychotherapy, 30 Min With Patient And O r Family M PASTRY COOK APPRENTICE - WALK IN [facility] PT VENIPUNCTURE LIMITED EXAM,ESTAB PAT. Psychotherapy, 30 Min With Patient And O r Family M PASTRY COOK APPRENTICE - WALK IN [facility] PT HEMOGLOBIN (HGB) INTERMED EXAM,ESTAB PAT EAR IRRIGATION INTERMED EXAM,ESTAB PAT HANDLING OF SPECIMEN VENIPUNCTURE LIMITED EXAM,ESTAB PAT. VENIPUNCTURE Urine Dipstick INTERMED EXAM,ESTAB PAT LIMITED EXAM,ESTAB PAT. BRIEF EXAM, ESTAB PAT. INTERMED EXAM,ESTAB PAT Telehealth Services LIMITED EXAM,ESTAB PAT. PHONE E/M PHYS/QHP 11-20 MIN Health Ed Nonbillable Health Ed Nonbillable VENIPUNCTURE LIMITED EXAM,ESTAB PAT. Voided Encounter ADMIN OF VACCINE FLU VACC 4 ADDY 3 YRS PLUS IM MINIMAL EXAM,ESTAB PAT. Urine Dipstick INTERMED EXAM,ESTAB PAT ADVNC CARE PLAN TLK DOCD VENIPUNCTURE ADMIN OF VACCINE FLU VACC 4 ADDY 3 YRS PLUS IM LIMITED EXAM,ESTAB PAT. Ancillary Services Nonbillable 19 HANDLING OF SPECIMEN COMPLETE SERIES COMPREHEN ORAL JOSÉ (N/E) HANDLING OF SPECIMEN INTERMED EXAM,ESTAB PAT Ancillary Services Nonbillable 19 VENIPUNCTURE HANDLING OF SPECIMEN LIMITED EXAM,ESTAB PAT. LIMITED EXAM,ESTAB PAT. HIE Case Management LIMITED EXAM,ESTAB PAT. HANDLING OF SPECIMEN Urine Dipstick INTERMED EXAM,ESTAB PAT VENIPUNCTURE STREPOCOCCUS GROUP A LIMITED EXAM,ESTAB PAT. LIMITED EXAM,ESTAB PAT. HEMOGLOBIN (HGB) ENDOMETRIAL BIOPSY LIMITED EXAM,ESTAB PAT. Urine Dipstick VENIPUNCTURE LIMITED EXAM,ESTAB PAT. LIMITED EXAM,ESTAB PAT. LIMITED EXAM,ESTAB PAT. Urine Dipstick LIMITED EXAM,ESTAB PAT. VENIPUNCTURE ADMIN OF VACCINE FLU VACC 4 ADDY 3 YRS PLUS IM LIMITED EXAM,ESTAB PAT. LIMITED EXAM,ESTAB PAT. VENIPUNCTURE LIMITED EXAM,ESTAB PAT. ADMIN OF VACCINE FLU VACC 4 ADDY 3 YRS PLUS IM LIMITED EXAM,ESTAB PAT. Medi-Arleen Initial Application INTERMED EXAM,ESTAB PAT HANDLING OF SPECIMEN Other Application HIE Case Management LIMITED EXAM,ESTAB PAT. VENIPUNCTURE LIMITED EXAM,ESTAB PAT. Thin Prep LIMITED EXAM,ESTAB PAT. ADMIN OF VACCINE ZOSTER VACC SC VENIPUNCTURE VENIPUNCTURE HEMOGLOBIN (HGB) INTERMED EXAM,ESTAB PAT Ancillary Services Nonbillable 15 VENIPUNCTURE Medi-Arleen Initial Application Patient Donation LIMITED EXAM,ESTAB PAT. IFOBT CASE MANAGEMENT LEVEL II LIMITED EXAM,ESTAB PAT. Other Application LIMITED EXAM,ESTAB PAT. LIMITED EXAM,ESTAB PAT. LIMITED EXAM,ESTAB PAT. Patient Donation LIMITED EXAM,ESTAB PAT. HANDLING OF SPECIMEN Patient Donation LIMITED EXAM,ESTAB PAT. HANDLING OF SPECIMEN HWLA Application Insurance Enrollment Nonbillable 2011 INTERMED EXAM,ESTAB PAT LAB SAMPLE DRAWN CASE MANAGEMENT LEVEL I HANDLING OF SPECIMEN LIMITED EXAM,ESTAB PAT. LIMITED EXAM,ESTAB PAT. CASE MANAGEMENT LEVEL I LIMITED EXAM,ESTAB PAT. EKG HEALTH EDUCATION CASE MANAGEMENT LEVEL I LIMITED EXAM,ESTAB PAT. HANDLING OF SPECIMEN LAB SAMPLE DRAWN CASE MANAGEMENT LEVEL I Advance Directives Directive Yes / No Effective Date File Name No Information Encounters Encounter Description Practice Location Reason(s) For Visit Diagnoses Date Provider Providers Copied on Encounter [facility], [place], [address], [place] tel:[phone] [facility] No Information 5 Noe Lopez. [place], [id number], [place]. tel:[phone] [facility], [address] [place] [address], [address], [place] tel:[phone] [facility] No Information 4 Noe Lopez. [address] [place], [id number], [place]. tel:[phone] [facility], [address] [place] [address], [address], [place] tel:[phone] [facility] No Information 4 Noe Lopez. [address] [place], [id number], [place]. tel:[phone] [facility], [address] [place] [address], [address], [place] tel:[phone] [facility] No Information 4 Noe Lopez. [address] [place] [address], [id number], [place]. tel:[phone] INTERMED EXAM,ESTAB PAT [facility], [address] [place] [address], [address], [place] tel: [phone] [facility] hypertension (chief complaint)hcm (chief complaint)HPI (chief complaint) HypertensionH ypothyroidism , unspecifiedHy perlipidemia, unspecifiedSy mptomatic varicose veins of both lower extremitiesDe ntal decayPrediabe tesHealthcare maintenanceAl lergic rhinitisImpac jessie cerumen, unspecified earAcute otitis externa of right ear, unspecified type 4 Resident Internal Med. . [facility], [address] [place] [address], [address], [place] tel:[phone] [facility] No Information 4 Jaquelin Lorenzo. [address] [place] [address], [id number], [place]. tel:[phone] LIMITED EXAM,ESTAB PAT. [facility], [address] [place] [address], [address], [place] tel:[phone] [facility] HTN F/u (chief complaint) Body mass index [BMI] 28.0-28.9, adultHyperten sara 4 Resident Internal Med. . INTERMED EXAM,[facility], [address] [place] [address], [address], tel:[phone] [facility] hypertension (chief complaint)thy roid (chief complaint)HCM (chief complaint)hpi (chief complaint) Hypothyroidis m, unspecifiedHy perlipidemia, unspecifiedEs sential (primary) hypertensionS ymptomatic varicose veins of both lower extremitiesHe althcare maintenanceBr east screeningOste oporosis screeningEnco unter for immunizationD ental decayPrediabe lui 4 Resident Internal Med. . [facility], [address] [place] [address], [address], tel:[phone] [facility] Counseling, unspecified 3 Health Education. . [facility], [address] [place] [address], [address], tel:[phone] [facility] Counseling, unspecified 3 Health Education. . INTERMED EXAM,[facility], [address] [place], [address], tel:[phone] [facility] varicose veins (chief complaint) Symptomatic varicose veins of both lower extremitiesEs sential (primary) hypertensionH yperlipidemia , unspecifiedHy pothyroidism, unspecified 3 Resident Internal Med. . INTERMED EXAM, [facility], [address] [place] [address], [address], tel:[phone] [facility] hypertension (chief complaint)hyp erlipidemia (chief complaint)Thy roid problems (chief complaint) Healthcare maintenanceHy pothyroidism, unspecifiedHy perlipidemia, unspecifiedHy pertensionBod y mass index [BMI] 28.0-28.9, adultImmuniza tion not carried out because of patient refusalEncoun ter for immunizationS easonal allergies 3 Resident Internal Med. . [facility], [address] [place], [address], [place] [phone] [facility] No Information 3 [facility]. [address] [place], [address], [place]. tel:[phone] Psychotherap y, 30 Min With Patient And Or Family M [facility], [address] [place], [address], [place] tel:[phone] [facility] Adjustment disorder with mixed anxiety and depressed mood [address] [facility]. [address] [place], [place], [id number], [place]. [phone] Psychotherap y, 30 Min With Patient And Or Family M [facility], [address] [place], [address], [place] [phone] [facility] Adjustment disorder with mixed anxiety and depressed mood [address] [facility]. [address] [facility], [id number], [place]. tel:[phone] [facility], [address] [place], [address], [place] tel:[phone] [facility] No Information 2 Management Case. [address] [place], [id number], [place]. tel:[phone] Psychotherap y, 30 Min With Patient And Or Family M [facility], [address] [place], [address], [place] tel:[phone] [facility] Adjustment disorder with anxiety 2 [facility]. [address] [place], [id number], [place]. tel:[phone] Psychotherap y, 45 Min With Patient And Or Family M [facility], [address] [place], [address], [place] [phone] [facility] Adjustment disorder with mixed anxiety and depressed mood Jan- [address] [facility]. [address] [place], [id number], [place]. tel:[phone] Psychotherap y, 45 Min With Patient And Or Family M [facility], [address] [place], [address], [place] tel:[phone] [facility] Adjustment disorder with mixed anxiety and depressed mood [address] [facility]. [address] [place], [id number], [place]. [phone] INTERMED EXAM,ESTAB PAT [facility], [address] [place], [address], [place] tel:[phone] [facility] Eye problems (chief complaint)Hyp othyroidism (chief complaint)HCM (chief complaint) Immunization not carried out because of patient refusalHypoth yroidism, unspecifiedBl epharitis of upper eyelids of both eyes, unspecified typeHypertens ionHyperlipid emia, unspecifiedAl lergic conjunctiviti s, bilateralPain of right eyeEncounter for immunization 2 Resident MED/PED. . Psychotherap y, 60 Min With Patient And Or Family M [facility], [address] [place], [address], [place] tel:[phone] [facility] Adjustment disorder with mixed anxiety and depressed mood [address] [facility]. [address] [place], [id number], [place]. tel:[phone] Psychotherap y, 60 Min With Patient And Or Family M [facility], [address] [place], [address], [place] tel:[phone] [facility] Adjustment disorder with mixed anxiety and depressed mood Jan- [address] [facility]. [address], [id number], [place]. tel:[phone] Psychotherap y, 60 Min With Patient And Or Family M [facility], [address] [place], [address], [place] tel: [phone] [facility] Adjustment disorder with mixed anxiety and depressed mood Sep-3 0 2 Fredrick Suzette. [address] [place], [place], [id number], [place]. tel:[phone] Psychotherap y, 45 Min With Patient And Or Family M [facility], [address] [place], [address], [place] tel: [phone] [facility] Adjustment disorder with mixed anxiety and depressed mood Sep-2 2 Fredrick Suzette. [address] [place], [id number], [place]. tel:[phone] Psychotherap y, 60 Min With Patient And Or Family M [facility], [address] [place], [address], [place] tel: [phone] [facility] Adjustment disorder with mixed anxiety and depressed mood Sep-1 2 Fredrick Suzette. [address] [place], [place], [id number], [place]. tel:[phone] Psychotherap y, 60 Min With Patient And Or Family M [facility], [address] [place], [address], [place] tel: [phone] [facility] Adjustment disorder with mixed anxiety and depressed mood Sep-0 2 Fredrick Suzette. [address] [place], [place], [id number], [place]. tel:[phone] [facility], [address] [place], [address], [place] tel:[phone] [facility] Blepharitis of upper eyelids of both eyes, unspecified typeSevere myopia, rightMyopia, leftAstigmati sm of both eyes, unspecified typePresbyopi a Sep-0 2 Jose E Silva. [address] [place], [place], [id number], [place]. tel:[phone] Psychotherap y, 60 Min With Patient And Or Family M [facility], [address] [place], [address], [place] tel: [phone] [facility] Adjustment disorder with mixed anxiety and depressed mood 2 Fredrick Suzette. [address] [place], [id number], [place]. tel:[phone] Psychotherap y, 60 Min With Patient And Or Family M [facility], [address] [place], [address], [place] tel: [phone] [facility] depression (chief complaint) Adjustment disorder with mixed anxiety and depressed mood 2 Fredrick Suzette. [address] [place], [id number], [place]. tel:[phone] [facility], [address] [place], [address], [place] tel: [phone] [facility] No Information 2 Management Case. [address] [place], [place], [id number], [place]. tel:[phone] [facility], [address] [place], [address], [place] tel: [phone] [facility] No Information 2 Management Case. [address] [place], [id number], [place]. tel:[phone] [facility], [address] [place], [address], [place] tel: [phone] [facility] No Information 2 Management Case. [address] [place], [place], [id number], [place]. tel:[phone] Psychotherap y, 30 Min With Patient And Or Family M [facility], [address] [place], [address], [place] tel:[phone] [facility] Adjustment disorder with mixed anxiety and depressed mood 2 Fredrick Suzette. [address] [place], [place], [id number], [place]. tel:[phone] LIMITED EXAM,ESTAB MERGED WITH [facility]. [facility], [address] [place], [address], [place] [phone] [facility] recurrent vertigo's (chief complaint)Vag inal itching (chief complaint)HCM (chief complaint) Encounter for screening mammogram for cancer of breastHypothy roidism, unspecifiedPr ediabetesAdju stment disorder with mixed anxiety and depressed moodVaginal irritation 2 Nathan Lockwood. [address] [place], [place], [id number], [place]. tel:[phone] Referring Provider: Mandie Evans, [address] [place] [address] [place], [address] . tel:[phone] Psychotherap y, 30 Min With Patient And Or Family M [facility], [address] [place], [address], [place] [phone] [facility] Adjustment disorder with mixed anxiety and depressed mood 2 Fredrick Bradford. [address] [place], [place], [id number], [place]. tel:[phone] INTERMED EXAM,[facility], [address] [place], [address], [place] [phone] [facility] Thyroid problems (chief complaint)Ear Pain (chief complaint)HCM (chief complaint) Immunization not carried out because of patient refusalEncntr screen for dis of the bld/bld-form org/immun mechnsmHypoth yroidism, unspecifiedEa r pain, bilateralBrea st cancer screening by mammogramAmbl yopia of left eyeImpacted cerumen, unspecified ear 2 Lon Parker. [address] [place], [place], [id number], [place]. tel:[phone] INTERMED EXAM,[facility], [address] [place], [address], [place] [phone] [facility] hypothyroidis m (chief complaint)med ication (chief complaint)Pre ventive exam (chief complaint)HCM (chief complaint)col on cancer screening (chief complaint) Encounter for screening for malignant neoplasm of colonGastroes ophageal reflux disease, unspecified whether esophagitis presentHypoth yroidism, unspecifiedMe casimiro impairmentAbn ormal glucoseH/O: varicose veinsStressEn counter for immunizationE ncounter for screening mammogram for cancer of breast 2 Loren Bhatti. [address], [place], [id number], [place]. tel:[phone] [facility], [address] [place], [address], [place] tel:[phone] [facility] Contact w and exposure to oth viral communicable diseases 2 Jono Montez. [address] [place], [place], [id number], [place]. tel:[phone] LIMITED EXAM,ESTAB PAT. [facility], [address] [place], [address], [place] tel:[phone] [facility] Dry eyes (chief complaint) Viral conjunctiviti sSore throat 2 Resident Internal Med. . INTERMED EXAM,ESTAB PAT [facility], [address] [place], [address], [place] tel:[phone] [facility] colon cancer screening (chief complaint)HCM (chief complaint)Rig ht upper quadrant (chief complaint)Dys uria (chief complaint) Body mass index (BMI) 29.0-29.9, adultEncounte r for screening for cancer of colonRoutine health maintenanceOt her abnormal findings in urineRight upper quadrant abdominal pain 1 Resident Internal Med. . [facility], [address] [place], [address], [place] tel:[phone] [facility] No Information 1 [facility]. [address] [place] [address], [address], [place]. tel:[phone] LIMITED EXAM,ESTAB PAT. [facility], [address] [place], [address], [place] tel:[phone] [facility] cough (chief complaint) Gastroesophag eal reflux disease, unspecified whether esophagitis presentCough 1 Resident Internal Med. . BRIEF EXAM, ESTAB PAT. [facility], [address] [place], [address], [place] tel:[phone] [facility] Cough (chief complaint) Cough 1 Sidra Hahn. [address] [place] [address], [id number], [place]. tel:[phone] INTERMED EXAM,ESTAB [facility], [address] [place], [address], [place] tel: [phone] [facility] Cough (chief complaint) CoughHypothyr oidism, unspecified 1 Resident MED/PED. . LIMITED EXAM,ESTAB PAT. [facility], [address] [place], [address], [place] tel:[phone] [facility] Cough 1 Resident MED/PED. . [facility], [address] [place], [address], [place] tel:[phone] [facility] Counseling, unspecified 0 Health Education. . LIMITED EXAM,ESTAB MERGED WITH [facility]. [facility], [address] [place], [address], [place] tel: [phone] [facility] hypertension (chief complaint)Thy roid problems (chief complaint)hyp erlipidemia (chief complaint)col on cancer screening (chief complaint)HCM (chief complaint)All ergies (chief complaint) Encounter for screening for cancer of colonImmuniza tion not carried out because of patient refusalHypert ensionPrediab etesHypothyro idism, unspecifiedHy perlipidemia, unspecifiedNo dule of skin of head 0 0 Shannan Horowitz [facility] [place], [id number], [place]. tel:[phone] [facility], [address] [place] [address], [address], [place] tel: [phone] [facility] No Information 0 Shannan Dougherty. [address] [place], [place], [id number], [place]. tel:[phone] MINIMAL EXAM,ESTAB PAT. 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 . INTERMED EXAM,ESTAB PAT [facility], [address] [place] [address], [address], [place] tel: [phone] [facility] hypertension (chief complaint)Uri nary symptoms (chief complaint) HypertensionH ypothyroidism , unspecifiedHe althcare maintenancePr ediabetesHype rlipidemia, unspecifiedDy suriaOther specified counseling 0 Stephen Forbes. [address] [place], [place], [id number], [place]. tel:[phone] LIMITED EXAM,ESTAB PAT. [facility], [address] [place] [address], [address], [place] tel: [phone] [facility] hypertension (chief complaint)Thy roid (chief complaint)lef t axillary pain (chief complaint) Breast pain, leftHypothyro idism, unspecifiedHy pertension 9 Shannan Dougherty. [address] [place] [place], [place], [id number], [place]. tel:[phone] [facility], [address] [place] [address], [place] tel: [phone] [facility] No Information 9 Adelia Magy. [address] [place], [place], [id number], [place]. tel:[phone] [facility], [address] [place], [address], [place] tel:[phone] [facility] Hypothyroidis m, unspecified 9 Adelia Bhatti. [address] [place], [place], [id number], [place]. tel:[phone] [facility], [address] [place], [address], [place] tel:[phone] [facility] Dental Encounter for dental exam and cleaning w abnormal findings 9 Annalise Gay. [address] [place], [place], [id number], [place]. tel:[phone] [facility], [address] [place], [address], [place] tel:[phone] [facility] Hypothyroidis m, unspecified 9 Shannna Dougherty. [address] [place], [place], [id number], [place]. tel:[phone] INTERMED EXAM,ESTAB PAT [facility], [address] [place], [address], [place] tel:[phone] [facility] hypertension (chief complaint)Thy roid problems (chief complaint)Mus culoskeletal pain (chief complaint) Encounter for screening for cancer of colonHypothyr oidism, unspecifiedPr ediabetesHype rtensionSciat ica of right side 9 Shannan Dougherty. [address] [place], [place], [id number], [place]. tel:[phone] [facility], [address] [place], [address], [place] tel:[phone] [facility] No Information 9 Shannan Dougherty. [address] [employer] [place], [id number], [place]. tel:[phone] [facility], [address] [place], [address], [place] tel:[phone] [facility] Hypothyroidis m, unspecified 9 Sebas Cuevas. [address] [place], [id number], [place]. tel:[phone] [facility], [address] [place], [address], [place] tel:[phone] [facility] Hypothyroidis m, unspecified 9 Shannan Dougherty. [address], [id number], [place]. tel:[phone] LIMITED EXAM,ESTAB PAT. [facility], [address] [place], [address], [place] tel:[phone] [facility] hypertension (chief complaint)hyp erlipidemia (chief complaint)col on cancer screening (chief complaint) Encounter for screening for cancer of colonHyperten sionHypothyro idism, unspecifiedPr ediabetesHist ory of uterine fibroidAt risk for dental problems 9 Shannan Dougherty. [address], [id number], [place]. tel:[phone] LIMITED EXAM,ESTAB PAT. [facility], [address] [place], [address], [place] tel: [phone] [facility] Follow up on lab test(s) (chief complaint)Col on Cancer Screening (chief complaint) Body mass index (BMI) 27.0-27.9, adultEncounte r for screening for cancer of colonHypothyr oidism, unspecifiedHy pertensionHis tory of uterine fibroid 8 Shannan Dougherty. [address] [place], [place], [id number], [place]. tel:[phone] [facility], [address] [place], [address], [place] tel: [phone] [facility] No Information 8 [facility]. [address] [place], [address], [place]. tel:[phone] LIMITED EXAM,ESTAB PAT. 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 [address] [place], [place], [id number], [place]. tel:[phone] INTERMED EXAM,ESTAB PAT [facility], [address] [place], [address], [place] tel:[phone] [facility] back pain (chief complaint)see standing orders (chief complaint) HypertensionH ypothyroidism , unspecifiedHy perlipidemia, unspecifiedCe rvical massOther abnormal findings in urineEncounte r for screening for cancer of colonAcute right-sided thoracic back pain 8 Stephen Forbes. [address] [place], [place], [id number], [place]. tel:[phone] LIMITED EXAM,ESTAB PAT. [facility], [address] [place], [address], [place] tel:[phone] [facility] Sore throat (chief complaint) Acute pharyngitis, unspecifiedHy pertensionHyp othyroidism, unspecifiedHy perlipidemia, unspecified Jul-0 8 [facility]. . LIMITED EXAM,ESTAB PAT. [facility], [address] [place], [address], [place] tel:[phone] [facility] Follow up on lab test(s) (chief complaint) Cervical mass 8 Adelia Bhatti. [address] [facility] [place], [id number], [place]. tel:[phone] LIMITED EXAM,ESTAB PAT. [facility], [address] [place], [address], [place] tel:[phone] [facility] preventive exam (chief complaint)Fol low up on lab test(s) (chief complaint) Post-menopaus al bleeding 7 Adelia Bhatti. [address] [place], [place], [id number], [place]. tel:[phone] LIMITED EXAM,ESTAB PAT. [facility], [address] [place], [address], [place] tel:[phone] [facility] hematuria (chief complaint)HCM (chief complaint) Post-menopaus al bleedingOther abnormal findings in urineAllergic rhinitis, unspecified allergic rhinitis trigger, unspecified rhinitis seasonalityHy pertensionHyp othyroidism, unspecified 7 Nathan Lockwood. [address] [place], [id number], [place]. [phone] LIMITED EXAM,ESTAB PAT. [facility], [address] [place], [address], [place] tel:[phone] [facility] Thyroid problems (chief complaint)hyp ertension (chief complaint)hyp erlipidemia (chief complaint)Med refills (chief complaint) HypertensionH ypothyroidism , unspecifiedHy perlipidemia, unspecifiedAl lergic rhinitis, unspecified allergic rhinitis trigger, unspecified rhinitis seasonalityPr ediabetes 7 Campbell Ladonna. [address] [place], [place], [id number], [place]. tel:[phone] LIMITED EXAM,ESTAB PAT. [facility], [address] [place], [address], [place] tel:[phone] [facility] Cough (chief complaint) Viral upper respiratory tract infection Sidra Hahn. [address] [place] [address], [id number], [place]. tel:[phone] LIMITED EXAM,ESTAB PAT. [facility], [address] [place], [address], [place] tel:[phone] [facility] Burning on urination (chief complaint) DysuriaHyperl ipidemia, unspecifiedHy pothyroidism, unspecifiedHy pertension 0 7 [facility] Leidy. [address] [facility] [place], [id number], [place]. tel:[phone] LIMITED EXAM,ESTAB PAT. [facility], [address] [place] [address], [address], [place] tel: [phone] [facility] hypertension (chief complaint)hyp erlipidemia (chief complaint)hyp othyroidism (chief complaint)All ergies (chief complaint)Diz ziness (chief complaint)dep ressed mood (chief complaint) Healthcare maintenanceEs sential (primary) hypertensionH yperlipidemia , unspecifiedAl lergic rhinitis, unspecified allergic rhinitis trigger, unspecified rhinitis seasonalityHy pothyroidism, unspecifiedAd justment disorder with depressed mood 7 [facility]. . LIMITED EXAM,ESTAB PAT. [facility], [address] [place], [address], [place] tel: [phone] [facility] F/U TSH (chief complaint) Essential (primary) hypertensionH ypothyroidism , unspecifiedHe althcare maintenance 7 [facility]. . LIMITED EXAM,ESTAB PAT. [facility], [address] [place] [address], [address], [place] tel: [phone] [facility] depression (chief complaint)Thy roid problems (chief complaint)All ergies (chief complaint) Hypothyroidis m, unspecifiedAl lergic rhinitisPredi abetesHyperli pidemia, unspecifiedDe ntal cariesEssenti al (primary) hypertension 7 [facility]. . LIMITED EXAM,ESTAB MERGED WITH [facility]. [facility], [address] [place] [address], [address], [place] tel: [phone] [facility] Cough (chief complaint)Dep ression (chief complaint) Essential (primary) hypertensionA llergic rhinitis, unspecified allergic rhinitis trigger, unspecified rhinitis seasonalityPr ediabetesBere avementHypoth yroidism, unspecifiedHe althcare maintenance 7 [facility]ident [facility] Med. . [facility], [address] [place], [address], [place] tel: [phone] [facility] No Information 7 [facility]. [address] [place], [address], [place]. tel:[phone] INTERMED EXAM,ESTAB PAT [facility], [address] [place], [address], [place] tel:[phone] [facility] Cough (chief complaint) Allergic rhinitisEssen tial (primary) hypertensionH ypothyroidism , unspecifiedIm paired fasting glucoseEncoun ter for screening for cancer of colonOverweig htHyperlipide stuart, unspecifiedVi ral URIOther viral agents as the cause of diseases classified elsewhereHeal [facility] health maintenance 7 [facility]. . [facility], [address] [place], [address], [place] tel: [phone] [facility] No Information 7 [facility]. [address] [place], [address], [place]. tel:[phone] [facility], [address] [place], [address], [place] tel: [phone] [facility] No Information 6 [facility]. [address] [place], [address], [place]. [phone] LIMITED EXAM,ESTAB PAT. [facility], [address] [place], [address], [place] tel:[phone] [facility] hypertension (chief complaint)RX (chief complaint)TB Assesment (chief complaint) Hypothyroidis m, unspecifiedEs sential (primary) hypertensionA llergic rhinitis 6 Shannan Dougherty. [address] [place], [place], [id number], [place]. tel:[phone] LIMITED EXAM,ESTAB PAT. [facility], [address] [place], [address], [place] tel: [phone] [facility] Musculoskelet al pain (chief complaint)hyp ertension (chief complaint)Med refills (chief complaint) Impingement syndrome of left shoulderHypot hyroidism, unspecifiedIm paired fasting glucose 6 Shannan Jordan [address], [id number], [place]. tel:[phone] LIMITED EXAM,ESTAB PAT. 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 tel:[phone] [facility], [address] [place], [address], [place] tel: [phone] [facility] No Information 5 Shannan [address] [place], [id number], [place]. [phone] INTERMED EXAM,ESTAB PAT [facility], [address] [place], [address], [place] tel: [phone] [facility] hypertension (chief complaint)Thy roid problems (chief complaint)All ergies (chief complaint)Wan ts flu shot (chief complaint) Encntr screen for dis of the bld/bld-form org/immun mechnsmEssent ial (primary) hypertensionH ypothyroidism , unspecifiedEn counter for screening mammogram for cancer of breastEncount er for screening for cancer of colonImpaired fasting glucose 5 Shannan Horowitz [place], [id number], [place]. tel:[phone] [facility], [address] [place], [address], [place] tel: [phone] [facility] No Information 5 Shannan Dougherty. [address] [place], [place], [id number], [place]. tel:[phone] [facility], [address] [place], [address], [place] tel: [phone] [facility] No Information 0 5 [facility]. [address] [place], [address], [place]. tel:[phone] LIMITED EXAM,ESTAB PAT. [facility], [address] [place], [address], [place] tel: [phone] [facility] Hypothyroidis m (chief complaint)hyp ertension (chief complaint)All ergies (chief complaint) No Information 5 [facility]. . [facility], [address] [place], [address], [place] tel: [phone] [facility] Hypothyroidis m 5 Adelia Bhatti. [address] [place], [place], [id number], [place]. tel:[phone] LIMITED EXAM,ESTAB PAT. [facility], [address] [place], [address], [place] tel: [phone] [facility] hypertension (chief complaint)Hyp othyroidism (chief complaint) Hypertension, BenignHypothy roidismOther and unspecified hyperlipidemi aIMPAIRED FASTING GLUCOSE 4 Shannan Dougherty. [address] [place], [place], [id number], [place]. tel:[phone] [facility], [address] [place], [address], [place] tel: [phone] [facility] hypertension (chief complaint)Thy roid problems (chief complaint) No Information Sep-3 0-201 4 Resident [facility] Med. . [facility], [address] [place] [address], [address], [place] tel:[phone] [facility] No Information Sep-2 -201 4 No Information LIMITED EXAM,ESTAB PAT. [facility], [address] [place], [address], [place] tel:[phone] [facility] hypertension (chief complaint)hyp othyroidism (chief complaint)war ts (chief complaint) Viral warts, unspecifiedHy pothyroidismH ypertension, Benign Nov- 4 Shannan Jordan [address], [id number], [place]. tel:[phone] LIMITED EXAM,ESTAB PAT. [facility], [address] [place], [address], [place] tel:[phone] [facility] warts (chief complaint) Viral warts, unspecifiedHy pertension, Benign 4 Shannan Jordan [address], [id number], [place]. tel:[phone] LIMITED EXAM,ESTAB PAT. [facility], [address] [place], [address], [place] tel:[phone] [facility] thyroid problems (chief complaint)med refills (chief complaint)fol low up on lab test(s) (chief complaint) Hypertension, BenignHypothy roidismViral warts, unspecified Albert- 4 Shannan Jordan [address], [place], [place], [id number], [place]. tel:[phone] LIMITED EXAM,ESTAB PAT. [facility], [address] [place] [address], [address], [place] tel:[phone] [facility] thyroid problems (chief complaint)all ergies (chief complaint) Hypothyroidis m 4 Shannan Jordan [address], [place], [id number], [place]. tel:[phone] LIMITED EXAM,ESTAB PAT. [facility], [address] [place], [address], [place] tel:[phone] [facility] thyroid problems (chief complaint) OverweightHyp othyroidismIM PAIRED FASTING GLUCOSEHypert ension, BenignOther and unspecified hyperlipidemi a 3 Shannan Dougherty. [address] [place], [place], [id number], [place]. tel:[phone] [facility], [address] [place], [address], [place] tel: [phone] [facility] No Information 3 [facility]. [address] [place], [address], [place]. tel:[phone] [facility], [address] [place], [address], [place] tel:[phone] [facility] No Information 2 [facility]. [address] [place], [address], [place]. tel:[phone] INTERMED EXAM,ESTAB PAT [facility], [address] [place], [address], [place] tel: [phone] [facility] No Information 2 No Information LIMITED EXAM,ESTAB PAT. [facility], [address] [place], [address], [place] tel: [phone] [facility] No Information 1 Resident [facility]. . LIMITED EXAM,ESTAB PAT. [facility], [address] [place], [address], [place] tel:[phone] [facility] No Information 1 Resident Internal Med. . LIMITED EXAM,ESTAB PAT. [facility], [address] [place], [address], [place] tel: [phone] [facility] No Information 1 [facility]. . LIMITED EXAM,ESTAB PAT. [facility], [address] [place], [address], [place] tel:[phone] [facility] No Information 1 Resident Internal Med. . [facility], [address] [place], [address], [place] tel:[phone] [facility] No Information -200 0 No Information Family History Family Member Type Diagnosis Age At Onset No Information Immunizations Vaccine Date Status Comments Flu Quad hi-dose Fluzone (65+yrs) administered Note: Influenza Vacc ine Ordered and Checked Off By Esmer Bush MD ; Source: New Immunization Record Pneumococcal conjugate PCV20 administered Note: PCV20 Vaccine Ordered and Checked Off By Esmer Bush MD ; Source: New Immunization Record COVID-19, mRNA,LNP-S,PF administered Sour ce: Other Registry COVID-19, mRNA,LNP-S,PF, 100 mcg/0.5 mL administered Source: Other Regist ry COVID-19, mRNA,LNP-S,PF, 100 mcg/0.5 mL administered Source: Other Regist ry Flu Quad multi-dose (Flu, 3+yrs) administered Source: New Immuniza tion Record Flu Quad multi-dose (Flu, 3+yrs) administered Source: New Immuniza tion Record Tdap administered Note: [facility] Lot #[id number] Left Arm ; Source: Other Registry Flu Quad multi-dose (Flu, 3+yrs) administered Source: New Immuniza tion Record Flu Quad multi-dose (Flu, 3+yrs) administered Source: New Immuniza tion Record Zoster administered Source: New Imm unization Record Influenza administered Note: Im[facility] from [facility]. [facility] Injected by: AUSTEN BOB MA. ; Source: Source Unspecified Influenza administered Note: Imported from [facility]. From Provider: [facility]. Injected by: DOMINGA GOMEZ MA. ; Source: Source Unspecified Influenza administered Note: Imported from [facility]. From Provider: [facility]. Injected by: ADELAIDA CHIANG RN. ; Source: Source Unspecified Tdap administered Note: Imported from [facility]. [facility] Injected by: Sulema Stearns MA. ; Source: Source Unspecified Influenza administered Note: Imported from [facility]. From Provider: [facility]. Injected by: Nicol Gomez MA. ; Source: Source Unspecified Novel [id number], all formulations administered Note: Imported from [facility]. From Provider: [facility] Injected by: Nicol Gomez MA. ; Source: Source Unspecified Novel [id number], all formulations administered Note: Imported from [facility]. From Provider: [facility] Injected by: Nicol Gomez MA. ; Source: Source Unspecified Payers Payer name Insurance type Covered libertarian ID Authoriza tion(s) Medicare PPS [id number] BS Promise Medicare Secondary CI [id number] Medicare PPS [id number] BS Promise Medicare Secondary CI [id number] HCLA BS Promise Medi-Arleen MC [id number] MediCal Managed Care Interim Rate [id number] HCLA BS Promise Medi-Arleen MC [id number] HCLA LA Care Medi-Arleen CI [id number] MediCal Managed Care Interim Rate [id number] Social History Type Description Quantity Date Captured Comments Sex Female Smoking Status No Information Sexual Orientation Straight or heterosexual Gender Identity Female Chief Complaint And Reason For Visit No Information Reason For Referral Reason For Referral No Information Plan Of Treatment Date Type Action Status Goal PPD (TST). Due on due Goal Domestic Violenc e Screen. Due on due Goal Mammogram. Due on 4 due Goal Tdap due Goal Alcohol Screening. Due on due Goal IGRA. Due on due Goal Zoster vaccine (1st) due Goal Dental exam. Due on due Goal Depression Scree jg. Due on due Goal Zoster vaccine ( 2nd). Due on due Goal FIT. Due on due Goal TB Risk Assessment. Due on due Goal Lipid panel. Due on due Goal Lipid panel. Due on due Goal PPD (TST). Due on due Goal Dental exam. Due on due Goal Depression Scree jg. Due on due Goal TB Risk Assessment. Due on due Goal Domestic Violenc e Screen. Due on due Goal CT-Colonography. Due on due Goal Alcohol Screening. Due on due Goal IGRA. Due on due Goal Tdap due Goal Mammogram. Due on 4 due Goal Zoster vaccine (1st) due Goal Colonoscopy. Due on 023 due Goal FIT-DNA. Due on due Goal Td vaccine. Due on 24 due Goal Zoster vaccine ( 2nd). Due on due Goal Lifestyle education regardin g diet completed Goal IGRA. Due on due Goal Zoster vaccine ( 2nd). Due on due Goal PPD (TST). Due on 4 due Goal Zoster vaccine (1st) due Goal Colonoscopy. Due on due Goal FIT-DNA. Due on due Goal Lipid panel. Due on due Goal Td vaccine. Due on 24 due Goal Alcohol Screening. Due on due Goal Mammogram. Due on 4 due Goal Tdap due Goal TB Risk Assessment. Due on due Goal Dental exam. Due on due Goal Depression Scree jg. Due on due Goal Domestic Violenc e Screen. Due on due Goal CT-Colonography. Due on due Goal CT-Colonography. Due on due Goal PPD (TST). Due on 3 due Goal Domestic Violenc e Screen. Due on due Goal Colonoscopy. Due on due Goal IGRA. Due on due Goal Td vaccine. Due on 23 due Goal Depression Scree jg. Due on due Goal Zoster vaccine ( 2nd). Due on due Goal Lipid panel. Due on due Goal Mammogram. Due on 4 due Goal DEXA Scan. Due on 3 due Goal FIT-DNA. Due on due Goal Dental exam. Due on 023 due Goal Zoster vaccine (1st) due Goal Alcohol Screening. Due on Oc due Goal TB Risk Assessment. Due on A due Goal Tdap due Goal Zoster vaccine (1st) due Goal Depression Scree jg. Due on due Goal Colonoscopy. Due on due Goal FIT-DNA. Due on due Goal Zoster vaccine ( 2nd). Due on due Goal Dental exam. Due on due Goal Alcohol Screening. Due on Oc due Goal Mammogram. Due on 4 due Goal Domestic Violenc e Screen. Due on due Goal PPD (TST). Due on 3 due Goal DEXA Scan. Due on 3 due Goal Td vaccine. Due on due Goal Lipid panel. Due on due Goal TB Risk Assessment. Due on A due Goal IGRA. Due on due Goal CT-Colonography. Due on due Goal Tdap due Goal Zoster vaccine (1st) due Goal DEXA Scan. Due on 3 due Goal PPD (TST). Due on 3 due Goal Mammogram. Due on 4 due Goal Alcohol Screening. Due on Oc due Goal Td vaccine. Due on due Goal CT-Colonography. Due on due Goal IGRA. Due on due Goal Domestic Violenc e Screen. Due on due Goal Tdap due Goal Dental exam. Due on due Goal FIT-DNA. Due on due Goal Depression Scree jg. Due on due Goal Zoster vaccine ( 2nd). Due on due Goal TB Risk Assessment. Due on A due Goal Lipid panel. Due on due Goal Colonoscopy. Due on due Goal Lipid panel. Due on due Goal DEXA Scan. Due on 3 due Goal Domestic Violenc e Screen. Due on due Goal Mammogram. Due on 4 due Goal Colonoscopy. Due on due Goal Zoster vaccine ( 2nd). Due on due Goal Depression Scree jg. Due on due Goal Alcohol Screening. Due on due Goal TB Risk Assessment. Due on A due Goal CT-Colonography. Due on due Goal Dental exam. Due on due Goal Zoster vaccine (1st) due Goal PPD (TST). Due on 3 due Goal Td vaccine. Due on due Goal Tdap due Goal FIT-DNA. Due on due Goal IGRA. Due on due Goal Lifestyle education regardin g diet completed Goal Tdap due Goal PPD (TST). Due on 3 due Goal TB Risk Assessment. Due on A due Goal Dental exam. Due on 023 due Goal Zoster vaccine (1st) due Goal Alcohol Screening. Due on due Goal Zoster vaccine ( 2nd). Due on due Goal DEXA Scan. Due on 3 due Goal Td vaccine. Due on due Goal Mammogram. Due on 4 due Goal Domestic Violenc e Screen. Due on due Goal Depression Scree jg. Due on due Goal Lipid panel. Due on 027 due Goal FIT. Due on due Goal IGRA. Due on due Goal Tdap due Goal PPD (TST). Due on 3 due Goal Zoster vaccine (1st) due Goal Alcohol Screening. Due on due Goal Dental exam. Due on 023 due Goal FIT. Due on due Goal IGRA. Due on due Goal TB Risk Assessment. Due on A due Goal Depression Scree jg. Due on due Goal Lipid panel. Due on due Goal Domestic Violenc e Screen. Due on due Goal Zoster vaccine ( ). Due on due Goal Td vaccine. Due on due Goal DEXA Scan. Due on due Goal Dental exam. Due on due Goal PPD (TST). Due on due Goal TB Risk Assessment. Due on A due Goal Zoster vaccine ( ). Due on due Goal Domestic Violenc e Screen. Due on due Goal Td vaccine. Due on due Goal Tdap due Goal DEXA Scan. Due on 2 due Goal IGRA. Due on due Goal Depression Scree jg. Due on due Goal FIT. Due on due Goal Lipid panel. Due on due Goal Zoster vaccine (1st) due Goal Alcohol Screening. Due on due Goal Dental exam. Due on due Goal Zoster vaccine (1st) due Goal TB Risk Assessment. Due on A due Goal Domestic Violenc e Screen. Due on due Goal Td vaccine. Due on due Goal PPD (TST). Due on due Goal Zoster vaccine ( 2nd). Due on due Goal Tdap due Goal Depression Scree jg. Due on due Goal IGRA. Due on due Goal FIT. Due on due Goal Lipid panel. Due on due Goal Alcohol Screening. Due on Oc due Goal DEXA Scan. Due on due Goal IGRA. Due on due Goal Tdap due Goal Depression Scree jg. Due on due Goal DEXA Scan. Due on due Goal Zoster vaccine ( 2nd). Due on due Goal Dental exam. Due on 022 due Goal TB Risk Assessment. Due on A due Goal Zoster vaccine (1st) due Goal Domestic Violenc e Screen. Due on due Goal Td vaccine. Due on due Goal FIT. Due on due Goal Alcohol Screening. Due on Oc due Goal Lipid panel. Due on due Goal PPD (TST). Due on due Goal TB Risk Assessment. Due on A due Goal Zoster vaccine (1st) due Goal FIT. Due on due Goal Zoster vaccine ( 2nd). Due on due Goal DEXA Scan. Due on due Goal Lipid panel. Due on due Goal Dental exam. Due on due Goal Depression Scree jg. Due on due Goal Td vaccine. Due on due Goal Alcohol Screening. Due on Oc due Goal IGRA. Due on due Goal PPD (TST). Due on due Goal Domestic Violenc e Screen. Due on due Goal Tdap due Goal IGRA. Due on due Goal Tdap due Goal Domestic Violenc e Screen. Due on due Goal FIT. Due on due Goal Lipid panel. Due on due Goal Dental exam. Due on due Goal DEXA Scan. Due on due Goal TB Risk Assessment. Due on A due Goal Zoster vaccine ( 2nd). Due on due Goal Depression Scree jg. Due on due Goal Alcohol Screening. Due on Oc due Goal Zoster vaccine (1st) due Goal PPD (TST). Due on due Goal Td vaccine. Due on due Goal PPD (TST). Due on due Goal Lipid panel. Due on due Goal Domestic Violenc e Screen. Due on due Goal Zoster vaccine ( 2nd). Due on due Goal TB Risk Assessment. Due on A due Goal Depression Scree jg. Due on due Goal Zoster vaccine (1st) due Goal DEXA Scan. Due on due Goal Alcohol Screening. Due on Oc due Goal Td vaccine. Due on due Goal Tdap due Goal IGRA. Due on due Goal Dental exam. Due on due Goal FIT. Due on due Goal FIT. Due on due Goal TB Risk Assessment. Due on A due Goal PPD (TST). Due on due Goal Tdap due Goal Zoster vaccine (1st) due Goal Zoster vaccine ( 2nd). Due on due Goal Td vaccine. Due on due Goal Domestic Violenc e Screen. Due on due Goal DEXA Scan. Due on due Goal Depression Scree jg. Due on due Goal IGRA. Due on due Goal Alcohol Screening. Due on Oc due Goal Dental exam. Due on due Goal Lipid panel. Due on due Goal Tdap due Goal Dental exam. Due on due Goal Domestic Violenc e Screen. Due on due Goal Depression Scree jg. Due on due Goal FIT. Due on due Goal TB Risk Assessment. Due on A due Goal PPD (TST). Due on due Goal IGRA. Due on due Goal Lipid panel. Due on due Goal Alcohol Screening. Due on due Goal Td vaccine. Due on due Goal Zoster vaccine (1st) due Goal Zoster vaccine ( 2nd). Due on due Goal DEXA Scan. Due on due Goal Depression Scree jg. Due on due Goal Alcohol Screening. Due on due Goal Tdap due Goal TB Risk Assessment. Due on A due Goal FIT. Due on due Goal Td vaccine. Due on due Goal Zoster vaccine (1st) due Goal Lipid panel. Due on due Goal PPD (TST). Due on due Goal Domestic Violenc e Screen. Due on due Goal Zoster vaccine ( 2nd). Due on due Goal IGRA. Due on due Goal Dental exam. Due on due Goal DEXA Scan. Due on due Goal TB Risk Assessment. Due on A due Goal Domestic Violenc e Screen. Due on due Goal Zoster vaccine ( 2nd). Due on due Goal Dental exam. Due on due Goal DEXA Scan. Due on due Goal Depression Scree jg. Due on due Goal Tdap due Goal Zoster vaccine (1st) due Goal Alcohol Screening. Due on Oc due Goal IGRA. Due on due Goal FIT. Due on due Goal Td vaccine. Due on due Goal PPD (TST). Due on due Goal Lipid panel. Due on due Goal TB Risk Assessment. Due on A due Goal Domestic Violenc e Screen. Due on due Goal Depression Scree jg. Due on due Goal IGRA. Due on due Goal Zoster vaccine ( 2nd). Due on due Goal Lipid panel. Due on due Goal FIT. Due on due Goal Alcohol Screening. Due on Oc due Goal Dental exam. Due on due Goal PPD (TST). Due on due Goal Zoster vaccine (1st) due Goal Td vaccine. Due on due Goal DEXA Scan. Due on due Goal Tdap due Goal TB Risk Assessment. Due on A due Goal Dental exam. Due on due Goal Depression Scree jg. Due on due Goal FIT. Due on due Goal Alcohol Screening. Due on Oc due Goal DEXA Scan. Due on due Goal Zoster vaccine ( 2nd). Due on due Goal Lipid panel. Due on due Goal Tdap due Goal IGRA. Due on due Goal Td vaccine. Due on due Goal PPD (TST). Due on due Goal Domestic Violenc e Screen. Due on due Goal Zoster vaccine (1st) due Goal TB Risk Assessment. Due on A due Goal Depression Scree jg. Due on due Goal Dental exam. Due on due Goal Alcohol Screening. Due on Oc due Goal Zoster vaccine ( 2nd). Due on due Goal Tdap due Goal Lipid panel. Due on due Goal Zoster vaccine (1st) due Goal DEXA Scan. Due on due Goal Td vaccine. Due on due Goal PPD (TST). Due on due Goal IGRA. Due on due Goal Domestic Violenc e Screen. Due on due Goal FIT. Due on due Goal PPD (TST). Due on due Goal DEXA Scan. Due on due Goal IGRA. Due on due Goal Depression Scree jg. Due on due Goal TB Risk Assessment. Due on A due Goal Zoster vaccine ( 2nd). Due on due Goal Domestic Violenc e Screen. Due on due Goal Zoster vaccine (1st) due Goal Td vaccine. Due on due Goal Alcohol Screening. Due on due Goal Tdap due Goal FIT. Due on due Goal Lipid panel. Due on due Goal Dental exam. Due on due Goal Domestic Violenc e Screen. Due on due Goal DEXA Scan. Due on due Goal Lipid panel. Due on due Goal Depression Scree jg. Due on due Goal Zoster vaccine ( 2nd). Due on due Goal FIT. Due on due Goal Dental exam. Due on due Goal TB Risk Assessment. Due on A due Goal Zoster vaccine (1st) due Goal Td vaccine. Due on due Goal PPD (TST). Due on due Goal Tdap due Goal IGRA. Due on due Goal Alcohol Screening. Due on Oc due Goal Domestic Violenc e Screen. Due on due Goal IGRA. Due on due Goal Zoster vaccine (1st) due Goal Zoster vaccine ( 2nd). Due on due Goal Td vaccine. Due on due Goal PPD (TST). Due on due Goal Depression Scree jg. Due on due Goal FIT. Due on due Goal Lipid panel. Due on due Goal DEXA Scan. Due on due Goal Dental exam. Due on 022 due Goal TB Risk Assessment. Due on A due Goal Tdap due Goal Alcohol Screening. Due on Oc due Goal FIT. Due on due Goal Lipid panel. Due on due Goal Domestic Violenc e Screen. Due on due Goal PPD (TST). Due on due Goal Zoster vaccine (1st) due Goal Alcohol Screening. Due on Oc due Goal TB Risk Assessment. Due on A due Goal Dental exam. Due on due Goal Depression Scree jg. Due on due Goal Td vaccine. Due on due Goal DEXA Scan. Due on due Goal Tdap due Goal Zoster vaccine ( 2nd). Due on due Goal IGRA. Due on due Goal Zoster vaccine (1st) due Goal Domestic Violenc e Screen. Due on due Goal Lipid panel. Due on due Goal Alcohol Screening. Due on Oc due Goal DEXA Scan. Due on due Goal Td vaccine. Due on due Goal IGRA. Due on due Goal Depression Scree jg. Due on due Goal Tdap due Goal FIT. Due on due Goal Dental exam. Due on due Goal Zoster vaccine ( 2nd). Due on due Goal TB Risk Assessment. Due on A due Goal PPD (TST). Due on due Goal Zoster vaccine ( 2nd). Due on due Goal TB Risk Assessment. Due on A due Goal IGRA. Due on due Goal Zoster vaccine (1st) due Goal FIT. Due on due Goal Depression Scree jg. Due on due Goal Lipid panel. Due on due Goal PPD (TST). Due on due Goal DEXA Scan. Due on due Goal Domestic Violenc e Screen. Due on due Goal Alcohol Screening. Due on Oc due Goal Dental exam. Due on due Goal Tdap due Goal Td vaccine. Due on due Goal DEXA Scan. Due on due Goal Lipid panel. Due on due Goal Alcohol Screening. Due on due Goal Domestic Violenc e Screen. Due on due Goal IGRA. Due on due Goal Zoster vaccine (1st) due Goal Depression Scree jg. Due on due Goal Dental exam. Due on due Goal Td vaccine. Due on due Goal Zoster vaccine ( 2nd). Due on due Goal FIT. Due on due Goal PPD (TST). Due on due Goal Tdap due Goal TB Risk Assessment. Due on A due Goal Alcohol Screening. Due on due Goal DEXA Scan. Due on due Goal Tdap due Goal Zoster vaccine (1st) due Goal Domestic Violenc e Screen. Due on due Goal TB Risk Assessment. Due on A due Goal Td vaccine. Due on due Goal Lipid panel. Due on 027 due Goal Dental exam. Due on due Goal Zoster vaccine ( 2nd). Due on due Goal FIT. Due on due Goal IGRA. Due on due Goal PPD (TST). Due on due Goal Depression Scree jg. Due on due Goal CT-Colonography. Due on due Goal TB Risk Assessment. Due on A due Goal FIT-DNA. Due on due Goal Alcohol Screening. Due on due Goal Zoster vaccine ( 2nd). Due on due Goal Lipid panel. Due on 025 due Goal Domestic Violenc e Screen. Due on due Goal Dental exam. Due on due Goal Zoster vaccine (1st) due Goal DEXA Scan. Due on due Goal PPD (TST). Due on due Goal Colonoscopy. Due on 011 due Goal Td vaccine. Due on due Goal Depression Scree jg. Due on due Goal Tdap due Goal IGRA. Due on due Goal IGRA. Due on due Goal DEXA Scan. Due on due Goal CT-Colonography. Due on due Goal TB Risk Assessment. Due on A due Goal Depression Scree jg. Due on due Goal Tdap due Goal Td vaccine. Due on due Goal Mammogram. Due on due Goal Zoster vaccine ( 2nd). Due on due Goal Lipid panel. Due on due Goal Colonoscopy. Due on 011 due Goal Domestic Violenc e Screen. Due on due Goal Dental exam. Due on 022 due Goal Zoster vaccine (1st) due Goal Alcohol Screening. Due on due Goal PPD (TST). Due on due Goal FIT-DNA. Due on due Goal TB Risk Assessment. Due on A due Goal Depression Scree jg. Due on due Goal IGRA. Due on due Goal Td vaccine. Due on due Goal FIT-DNA. Due on due Goal DEXA Scan. Due on due Goal Lipid panel. Due on due Goal Tdap due Goal Zoster vaccine (1st) due Goal Alcohol Screening. Due on due Goal Dental exam. Due on 022 due Goal Colonoscopy. Due on 011 due Goal Domestic Violenc e Screen. Due on due Goal Mammogram. Due on 2 due Goal PPD (TST). Due on [address]-Colon[address]. Due on due Goal Zoster vaccine ( 2nd). Due on due Goal Td vaccine. Due on 21 due Goal IGRA. Due on due Goal Zoster vaccine (1st) due Goal Alcohol Screening. Due on due Goal Dental exam. Due on 021 due Goal PPD (TST). Due on due Goal Colonoscopy. Due on 011 due Goal Zoster vaccine ( 2nd). Due on due Goal Tdap due Goal Mammogram. Due on [address]-Colon[address]. Due on due Goal DEXA Scan. Due on due Goal Depression Scree jg. Due on due Goal FIT-DNA. Due on due Goal Domestic Violenc e Screen. Due on due Goal Lipid panel. Due on 025 due Goal TB Risk Assessment. Due on A due Goal Lifestyle education regardin g diet completed Goal DEXA Scan. Due on 1 due Goal Tdap due Goal Zoster vaccine (1st) due Goal Alcohol Screening. Due on due Goal Mammogram. Due on 2 due Goal Colonoscopy. Due on 011 due Goal PPD (TST). Due on due Goal Pneumococcal vac cine. Due on due Goal Dental exam. Due on 021 due Goal Domestic Violenc e Screen. Due on due Goal Td vaccine. Due on due Goal FIT-DNA. Due on due Goal CT-Colonography. Due on due Goal FIT. Due on due Goal TB Risk Assessment. Due on A due Goal Lipid panel. Due on 025 due Goal IGRA. Due on due Goal Depression Scree jg. Due on due Goal Zoster vaccine ( 2nd). Due on due Goal Mammogram. Due on [address]-Colon[address]. Due on due Goal Domestic Violenc e Screen. Due on due Goal Pneumococcal vac cine. Due on due Goal Zoster vaccine ( 2nd). Due on due Goal Td vaccine. Due on due Goal DEXA Scan. Due on due Goal Alcohol Screening. Due on due Goal FIT-DNA. Due on due Goal PPD (TST). Due on due Goal Colonoscopy. Due on due Goal TB Risk Assessment. Due on A due Goal Dental exam. Due on due Goal IGRA. Due on due Goal Zoster vaccine (1st) due Goal Tdap due Goal FIT. Due on due Goal Depression Scree jg. Due on due Goal Lipid panel. Due on due Goal Td vaccine. Due on due Goal Alcohol Screening. Due on due Goal Tdap due Goal PPD (TST). Due on due Goal Mammogram. Due on 2 due Goal Zoster vaccine ( 2nd). Due on due Goal IGRA. Due on due Goal FIT-DNA. Due on due Goal Domestic Violenc e Screen. Due on due Goal CT-Colonography. Due on due Goal Dental exam. Due on due Goal DEXA Scan. Due on due Goal Lipid panel. Due on 025 due Goal TB Risk Assessment. Due on A due Goal Colonoscopy. Due on due Goal FIT. Due on due Goal Pneumococcal vac cine. Due on due Goal Zoster vaccine (1st) due Goal Depression Scree jg. Due on due Goal CT-Colonography. Due on due Goal Lipid panel. Due on 025 due Goal Pneumococcal vac cine. Due on due Goal Zoster vaccine (1st) due Goal Depression Scree jg. Due on due Goal Tdap due Goal Zoster vaccine ( ). Due on due Goal Td vaccine. Due on 21 due Goal Dental exam. Due on 021 due Goal Mammogram. Due on 2 due Goal IGRA. Due on due Goal FIT-DNA. Due on due Goal Alcohol Screening. Due on due Goal FIT. Due on due Goal TB Risk Assessment. Due on due Goal Domestic Violenc e Screen. Due on due Goal PPD (TST). Due on 1 due Goal DEXA Scan. Due on 1 due Goal Colonoscopy. Due on 011 due Goal FIT. Due on due Goal IGRA. Due on due Goal Td vaccine. Due on 20 due Goal DEXA Scan. Due on 0 due Goal HPV. Due on due Goal TB Risk Assessment. Due on due Goal Colonoscopy. Due on 011 due Goal Dental exam. Due on 020 due Goal Pap/HPV testing. Due on due Goal Lipid panel. Due on 025 due Goal Tdap due Goal Alcohol Screening. Due on due Goal PPD (TST). Due on 0 due Goal Zoster vaccine (1st) due Goal Zoster vaccine ( 2nd). Due on due Goal PAP. Due on due Goal Domestic Violenc e Screen. Due on due Goal FIT-DNA. Due on due Goal CT-Colonography. Due on due Goal Depression Scree jg. Due on due Goal Pneumococcal vac cine. Due on due Goal Mammogram. Due on 2 due Goal PAP. Due on due Goal Tdap due Goal PPD (TST). Due on 0 due Goal Zoster vaccine ( 2nd). Due on due Goal Depression Scree jg. Due on due Goal Zoster vaccine (1st) due Goal Domestic Violenc e Screen. Due on due Goal Lipid panel. Due on 025 due Goal Pap/HPV testing. Due on due Goal Mammogram. Due on 2 due Goal IGRA. Due on due Goal Colonoscopy. Due on 011 due Goal Alcohol Screening. Due on due Goal HPV. Due on due Goal FIT-DNA. Due on due Goal FIT. Due on due Goal CT-Colonography. Due on due Goal Dental exam. Due on 020 due Goal Td vaccine. Due on 20 due Goal TB Risk Assessment. Due on due Goal Pneumococcal vac cine. Due on due Goal DEXA Scan. Due on 0 due Goal Pap/HPV testing. Due on due Goal Depression Scree jg. Due on due Goal CT-Colonography. Due on due Goal Td vaccine. Due on due Goal Colonoscopy. Due on 011 due Goal FIT. Due on due Goal DEXA Scan. Due on 0 due Goal Zoster vaccine (1st) due Goal IGRA. Due on due Goal HPV. Due on due Goal TB Risk Assessment. Due on due Goal Pneumococcal vac cine. Due on due Goal Alcohol Screening. Due on due Goal Domestic Violenc e Screen. Due on due Goal Zoster vaccine ( 2nd). Due on due Goal FIT-DNA. Due on due Goal Lipid panel. Due on 025 due Goal Dental exam. Due on due Goal PPD (TST). Due on 0 due Goal Mammogram. Due on 2 due Goal DEXA Scan. Due on 0 due Goal Pneumococcal vac cine. Due on due Goal Lipid panel. Due on due Goal Colonoscopy. Due on 011 due Goal Pap/HPV testing. Due on due Goal Alcohol Screening. Due on due Goal Mammogram. Due on 2 due Goal Depression Scree jg. Due on due Goal PPD (TST). Due on 0 due Goal Dental exam. Due on due Goal Td vaccine. Due on 20 due Goal IGRA. Due on due Goal Zoster vaccine ( 1st). Due on due Goal TB Risk Assessment. Due on due Goal Domestic Violenc e Screen. Due on due Goal Pneumococcal vac cine. Due on due Goal DEXA Scan. Due on 0 due Goal Depression Scree jg. Due on due Goal IGRA. Due on due Goal Domestic Violenc e Screen. Due on due Goal TB Risk Assessment. Due on due Goal Dental exam. Due on due Goal Lipid panel. Due on due Goal Alcohol Screening. Due on due Goal Colonoscopy. Due on due Goal Pap/HPV testing. Due on due Goal PPD (TST). Due on 0 due Goal Zoster vaccine ( ). Due on due Goal Lipid panel. Due on due Goal Pap/HPV testing. Due on due Goal Alcohol Screening. Due on due Goal IGRA. Due on due Goal Colonoscopy. Due on due Goal Depression Scree jg. Due on due Goal Domestic Violenc e Screen. Due on due Goal TB Risk Assessment. Due on A due Goal Dental exam. Due on due Goal Zoster vaccine ( 1st). Due on due Goal PPD (TST). Due on 9 due Goal Dental exam. Due on due Goal Depression Scree jg. Due on due Goal Alcohol Screening. Due on due Goal IGRA. Due on due Goal Domestic Violenc e Screen. Due on due Goal TB Risk Assessment. Due on A due Goal Pap/HPV testing. Due on due Goal Colonoscopy. Due on due Goal Mammogram. Due on 9 due Goal Zoster vaccine ( 1st). Due on due Goal Lipid panel. Due on due Goal PPD (TST). Due on 9 due Goal Dental exam. Due on due Goal Pap/HPV testing. Due on due Goal Zoster vaccine ( 1st). Due on due Goal TB Risk Assessment. Due on A due Goal Alcohol Screening. Due on No due Goal Colonoscopy. Due on due Goal Domestic Violenc e Screen. Due on due Goal Lipid panel. Due on due Goal Depression Scree jg. Due on due Goal IGRA. Due on due Goal Mammogram. Due on due Goal PPD (TST). Due on due Goal IGRA. Due on due Goal Lipid panel. Due on due Goal TB Risk Assessment. Due on A due Goal Depression Scree jg. Due on due Goal Alcohol Screening. Due on due Goal PPD (TST). Due on 9 due Goal Pap/HPV testing. Due on due Goal Colonoscopy. Due on due Goal Domestic Violenc e Screen. Due on due Goal Zoster vaccine ( 1st). Due on due Goal Mammogram. Due on due Goal Dental exam. Due on due Goal Lifestyle education regardin g diet completed Goal Lifestyle education regardin g diet completed Goal Mammogram. Due on due Goal Depression Scree jg. Due on due Goal Domestic Violenc e Screen. Due on due Goal TB Risk Assessment. Due on A due Goal Dental exam. Due on due Goal IGRA. Due on due Goal Alcohol Screening. Due on due Goal PPD (TST). Due on due Goal Pap/HPV testing. Due on due Goal Colonoscopy. Due on due Goal Depression Scree jg. Due on due Goal PPD (TST). Due on due Goal Pap/HPV testing. Due on due Goal Domestic Violenc e Screen. Due on due Goal Dental exam. Due on due Goal Mammogram. Due on due Goal TB Risk Assessment. Due on A due Goal Colonoscopy. Due on due Goal Alcohol Screening. Due on due Goal IGRA. Due on due Goal PPD (TST). Due on due Goal Domestic Violenc e Screen. Due on due Goal Mammogram. Due on due Goal Depression Scree jg. Due on due Goal TB Risk Assessment. Due on A due Goal Pap/HPV testing. Due on due Goal IGRA. Due on due Goal Alcohol Screening. Due on due Goal Dental exam. Due on due Goal Colonoscopy. Due on due Goal Lifestyle education regardin g diet completed Goal Pap/HPV testing. Due on due Goal Colonoscopy. Due on due Goal Alcohol Screening. Due on due Goal Domestic Violenc e Screen. Due on due Goal IGRA. Due on due Goal Mammogram. Due on 9 due Goal Depression Scree jg. Due on due Goal TB Risk Assessment. Due on due Goal Dental exam. Due on due Goal PPD (TST). Due on 8 due Goal Lifestyle education regardin g diet completed Goal Alcohol Screening. Due on due Goal Domestic Violenc e Screen. Due on due Goal Mammogram. Due on 9 due Goal Dental exam. Due on due Goal Depression Scree jg. Due on due Goal Colonoscopy. Due on due Goal IGRA. Due on due Goal Pap/HPV testing. Due on due Goal TB Risk Assessment. Due on due Goal PPD (TST). Due on 8 due Goal Depression Scree jg. Due on due Goal TB Risk Assessment. Due on O due Goal Alcohol Screening. Due on Ap due Goal Dental exam. Due on due Goal PPD (TST). Due on 8 due Goal Mammogram. Due on 9 due Goal IGRA. Due on due Goal Colonoscopy. Due on due Goal Domestic Violenc e Screen. Due on due Goal Pap/HPV testing. Due on due Goal PPD (TST). Due on 8 due Goal Depression Scree jg. Due on due Goal IGRA. Due on due Goal Mammogram. Due on 9 due Goal Alcohol Screening. Due on due Goal Dental exam. Due on due Goal TB Risk Assessment. Due on O due Goal Pap/HPV testing. Due on due Goal Colonoscopy. Due on due Goal Domestic Violenc e Screen. Due on due Goal Pap/HPV testing. Due on due Goal IGRA. Due on due Goal Alcohol Screening. Due on due Goal PPD (TST). Due on 8 due Goal Domestic Violenc e Screen. Due on due Goal Dental exam. Due on due Goal Depression Scree jg. Due on due Goal Mammogram. Due on 9 due Goal Colonoscopy. Due on due Goal TB Risk Assessment. Due on O due Goal PPD (TST). Due on due Goal Dental exam. Due on due Goal Alcohol Screening. Due on Ap due Goal TB Risk Assessment. Due on O due Goal Depression Scree jg. Due on due Goal Colonoscopy. Due on due Goal Domestic Violenc e Screen. Due on due Goal IGRA. Due on due Goal Pap/HPV testing. Due on due Goal Mammogram. Due on 9 due Goal PPD (TST). Due on 7 due Goal Depression Scree jg. Due on due Goal Colonoscopy. Due on due Goal TB Risk Assessment. Due on due Goal Alcohol Screening. Due on due Goal Dental exam. Due on due Goal Domestic Violenc e Screen. Due on due Goal IGRA. Due on due Goal Pap/HPV testing. Due on due Goal Mammogram. Due on 9 due Goal Pap/HPV testing. Due on due Goal IGRA. Due on due Goal Mammogram. Due on 9 due Goal Domestic Violenc e Screen. Due on due Goal Colonoscopy. Due on due Goal PPD (TST). Due on due Goal Depression Scree jg. Due on due Goal Dental exam. Due on due Goal TB Risk Assessment. Due on O due Goal Alcohol Screening. Due on Ap due Goal Zoster vaccine due Goal Tdap due Goal Pap/HPV testing. Due on due Goal IGRA. Due on due Goal PPD (TST). Due on 7 due Goal Mammogram. Due on 9 due Goal Depression Scree jg. Due on due Goal TB Risk Assessment. Due on O due Goal Dental exam. Due on 017 due Goal Domestic Violenc e Screen. Due on due Goal Colonoscopy. Due on 011 due Goal Alcohol Screening. Due on Ap due Goal IGRA. Due on due Goal Domestic Violenc e Screen. Due on due Goal Colonoscopy. Due on 017 due Goal PPD (TST). Due on 7 due Goal TB Risk Assessment. Due on O due Goal Alcohol Screening. Due on Ap due Goal Dental exam. Due on due Goal Alcohol Screening. Due on due Goal TB Risk Assessment. Due on due Goal Dental exam. Due on due Goal Domestic Violenc e Screen. Due on due Goal Colonoscopy. Due on due Goal PPD (TST). Due on due Goal IGRA. Due on due Goal PPD (TST). Due on due Goal Colonoscopy. Due on due Goal Dental exam. Due on due Goal IGRA. Due on due Goal Dental exam. Due on due Goal PPD (TST). Due on due Goal IGRA. Due on due Goal Colonoscopy. Due on due Goal PPD (TST). Due on due Goal IGRA. Due on due Goal Alcohol Screening. Due on due Goal Colonoscopy. Due on due Goal IGRA. Due on due Goal Colonoscopy. Due on due Goal PPD (TST). Due on due Goal Alcohol Screening. Due on due Goal PPD (TST). Due on due Goal TB Risk Assessment. Due on due Goal IGRA. Due on due Goal Colonoscopy. Due on due Goal Alcohol Screening. Due on due Goal Colonoscopy. Due on due Goal Domestic Violenc e Screen. Due on due Goal PPD (TST). Due on due Goal Depression Scree jg. Due on due Goal Alcohol Screening. Due on due Goal PPD (TST). Due on 6 due Goal Domestic Violenc e Screen. Due on due Goal Colonoscopy. Due on 016 due Goal Depression Scree jg. Due on due Goal PPD (TST). Due on 5 due Goal Domestic Violenc e Screen. Due on due Goal Colonoscopy. Due on 015 due Referral Ordered: SCR MAMMO BI INCL CAD Bilateral Appointment date/timeframe: ROUTINE ordered Referral Ordered: DEXA scan hip and spine Appointment date/timeframe: ROUTINE ordered Referral Ordered: Vascular Surgery (related to Symptomatic varicose veins of both lower extremities) ordered Referral Ordered: Referrals: Vascular Surgery. Evaluate and treat ordered Referral Ordered: Screening mammogram 4 views ordered Referral Ordered: Ophthalmology (related to Pain of right eye) ordered Referral Ordered: Ophthalmology (related to Amblyopia of left eye) ordered Referral Ordered: Referrals: Ophthalmology. Evaluate and treat Appointment date/timeframe: ROUTINE ordered Referral Ordered: referred to Vascular Surgery varicose veins pain ordered Referral Ordered: SCR MAMMO BI INCL CAD ordered Referral Ordered: Gastroenterology (related to Encounter for screening for cancer of colon) ordered Referral Ordered: Referrals: Gastroenterology. Consult. Diagnostic testing ordered Referral Ordered: X-RAY EXAM CHEST 2 VIEWS ordered Referral Ordered: DX MAMMO INCL CAD BI ordered Referral Ordered: Referrals: Gynecology ordered Referral Ordered: Pathology (tissue specimen) ordered Referral Ordered: Dentistry (related to Healthcare maintenance) ordered Referral Ordered: Social Work (related to Healthcare maintenance) ordered Referral Ordered: MAMMOGRAM, SCREENING ordered Referral Ordered: Referrals: Dentistry ordered Referral Ordered: Referrals: Social Work ordered Referral Ordered: Dentistry (related to Dental caries) ordered Referral Ordered: Referrals: Dentistry. Evaluate and treat ordered Referral Ordered: referred to outside [employer] needs new glasses (related to Low vision, both eyes) ordered Referral Ordered: referred to outside dental referrals poor dentition (related to Dental caries) ordered Referral Ordered: referred to [facility] [employer] [employer] [facility] (related to Essential (primary) hypertension) ordered Referral Ordered: referred to [facility] check up (related to Essential (primary) hypertension) ordered Appointment Celia Hay BOOKED Future Order: Lab Order INSURE O NE IFOBT ([id number]), Appointment on: , Sent on: Sent Future Order: Lab Order InSure O NE IFOBT ([id number]), Sent on: Sent History Of Present Illness Encounter Date Complaint History Of Prese nt Illness hypertension Pertinent negati ves include chest pain, headache and nausea. Additional information: last reading on 08/09/23 (today), result 115/66 HPI Celia Rodriguez [place] is a 67 F with Hx as below here for a follow up #HTN BP log with SBP primarily in the 110-120s in the month of July 2023 Metop changed to coreg at last visit and tolerating well #PreDM #HLD Last A1c at 5.8 -> 5.9. Last lipid panel much improved with normal Tchol, TG, and LDL at 94 On atorva 40 qhs #Symptomatic varicose veins of the LE Started on compression socks. Referred to vascular surgery 02/2023 and pending. #Hypothyroidism Last TSH check 09/2022 at goal. On levothyroxine 75 mcg qd #HCM Last pap: 2015 with normal results. Was 62 at last check and no longer doing them as she was near 64 with no abnormal Hx paps. Last mammogram: 2021 with BiRADS-1. Repeat ordered Last FIT: 05/2023 with negative results Last DEXA/bone scan: Due and ordered Lung cancer screen (>50 yo with >20 y smoking Hx): N.A. Vaccines: Influenza at last visit. hcm - pt okat for td vaccine today HTN F/u 68F with HTN pre senting for follow-up for blood pressure.Home BP: lowest she has seen is 120 and highest she has seen in high 130s; Her typical range is 135She is tolerating coreg 6.25 BID well, denies adverse effects. She is taking is twice a day though missed a dose last night. Denies CP, SOB. thyroid hypertension HCM pt requesting rx refills pt also requesting nasal spray for ongoing/recurring nasal congestion hpi Celia Garcia is a 67 F with Hx as below here for a follow up #HTN BP log from Feb and Mar with BP ranging mainly in the 120 to 130s SBP On metoprolol 25 mg ER qd but planning to change Eating healthy but does not exercise much #PreDM #HLD Last A1c at 5.8 Last lipid panel much improved with normal Tchol, TG, and LDL at 83 On atorva 40 qhs #Symptomatic varicose veins of the LEStarted on compression socks. Referred to vascular surgery 02/2023 and pending #Hypothyroidism Last TSH check 09/2022 at goal. On levothyroxine 75 mcg qd #HCM Last pap: 2015 with normal results Last mammogram: 2021 with BiRADS-1 Last FIT: 2021 with normal results Last DEXA/bone scan: Due Lung cancer screen (>50 yo with >20 y smoking Hx): N.A. Vaccines: Infulenza today. Declines others varicose veins reports longstan ding hx varicose veins, but these were not bothersome until past 6-7mo when they started getting more painful. especially after being on her feet all day and walking long distances, or exercising hyperlipidemia Risk factors inc lude age over 50. Thyroid problems Risk factors in clude female and history of hypothyroidism. hypertension Hypothyroidism per pt states is asking for blood work today Eye problems Onset: 2 Days. T he severity of the problem is moderate. The problem has not changed. The symptoms are intermittent. Discomfort is described as dull pain and itchy. Patient reports no discharge. [facility] please sent flu shot to [facility] pharmacy offered pt TDAP, PCV-13 and Shingrix pt declines todayMammo-pt is due please order referral depression This is an initi al visit. Vaginal itching [facility] pt requesting la bs for TSH recurrent vertigo's Thyroid problems Risk factors in clude female and history of hypothyroidism. Additional information: Hypothyroidism medication refill. [facility] 1. Mammogram ref erral Ear Pain (comments) endorses elke harrison with ear pain and also feels she has nasal congestionshe states she has ear pain mostly when she changes elevationStates worse in right ear, but both are affected, has not fallen, no blows to the head, no traumaDenies nausea, or vomitingDenies pus or discharge from ears Ear Pain Onset: 1 month a go. The states the ear pain is in both ears. Additional information: c/o ear discomfort. hypothyroidism Per pt here for follow up Preventive exam Currently pregna nt: no. Livin. The client states she uses menopausal for control. Last LMP was 03/22/2007.Postmenopausal. She has not been exposed to passive smoke. She does not drink alcohol. Additional information: Pt needs referral for Mammogram. Asking for vascular surgeon consult for varices. colon cancer screening No prior screening. Denies risk factors. Pertinent negatives include rectal bleeding. Additional information: KIT ordered. medication Pt needs medicat ion refills [facility] Pt due for Tdap & Zoster vaccine, wants to discuss w/ Provider first.Worries re memory changes notes forgets phone, forgets items in home. Used to have an excellent memory Denies DOUGLASS changes in strength or gait. Able to do ADL's Does have stress sometimes at home alone as daughter works. Has some continued depression since 2016 no hx of therapy states does not want as she thinks she can cope herself Dry eyes (comments) Pt reports f davida days of itchy eyes. She reports a burning sensation and crusting on both eyes. Also has pain of the R eye and redness of both eyes, but worse on the R eye. She reports mild superficial pain in both of eyes. She has been having teary, watery discharge. Denies blood or pus. She reports swelling of the eyelids and itchiness of the eyebrows. Denies photophobia or vision changes. Denies trauma to the eyes or foreign body. Denies ear pain or drainage from nose. She uses eyeglasses for seeing from far away. Saw an eye doctor in [place] and wants to go to another appt later on, but is preferring to avoid appointments at this time. Denies surgery on eyes. She has had a sore throat x1 day. She has also been having insomnia for the last few days. Denies F/C, cough, SOB, loss of taste/smell. No known exposure to COVID. She is vaccinated x3 for COVID. She also requests a refill of her thyroid medication. Dry eyes [facility] Pt would like to discuss Tdap Vaccine, Shingrix Vaccine and PCV 13 Vaccine with a provider. colon cancer screening No prior screening. Associated symptoms include change in bowel habits. Additional information: No family history of colon cancer, Pt reports hx of constipation for several years, however over the past 2 months and has seen an increase in difficulty with stooling w/ associated abdominal pain. Right upper quadrant Pt reports a hx of mild RUQ pain since 11:00am today. Pain is intermittent, lasting minutes at a time and resolving on its own. She has not had a meal today. No associated fevers/chills, nausea/vomiting, no diarrhea, no reported melena/hematochezia. She reports that she has been feeling increasing constipation over the last 2 months and states that she is feeling constipated and feels like her abdomen is distended today, notably straining to have a BM in the morning around the time that the abdominal pain began, has not been passing gas. She has never experienced pain like this in the past. No reported hx of biliary colic. Dysuria Additional infor yaritza: LMP: 03/22/2007, Pt endorsing intermittent dysuria. UA bland this clinic visit.. cough (comments) 65F with GERD, presenting for follow up on cough. Seen on 11/24/20 for this -- COVID negative at that time, no fevers, dyspnea. CXR normal. Instructed to try omeprazole given known hx of GERD. Today, she says that she's doing much better. Taking the omeprazole has greatly helped with her cough, which has mostly resoled. She is taking it twice a day concomitantly with meals. Trying to stick to a q12 hour schedule, took it at 1am last night. This visit was completed via telephone due to the restrictions of the COVID-19 pandemic. All issues as below were discussed and addressed but no physical exam was performed. If it was felt that the patient should be evaluated in clinic, they were directed there. The patient verbally consented to visit. 24 minutes with patient on phone discussing health concerns. cough Cough Onset: 15 days a go. Pertinent negatives include fever. Additional information: vaccinated. went to [place] 3[place]4 months ago. has omeprazole has not started taking. Cough (comments) Here for f/u of cough. Initially phone visit, converted to in personPt has had cough since 08/2020. Dry cough that begins when sitting in front of air conditioner or when taking pills, feels powder in her throat or like something stuck in throat. Cough is worse at night severiano when is lying in bed, better when she sits upright. Denies chest pain, leg swelling. Swallowing difficulty x years which she attributes to thyroid. Never with thyroid u/s. Able to ambulate without YANEZ.At last visit given cetirizine and nasal fluticasone, feels like these have been a little helpful but still having cough. Has intermittent itching in eyes, sometimes yellow discharge, frequently runny noseCOVID test about 6 weeks ago when she was returnng from [place], negative. Cough colon cancer screening Prior scr eening: fecal occult blood testing. Denies risk factors. There are no associated symptoms. Additional information: No family history of colon cancer. HCM Med refillsDue f or Tdap, shingrix and [id number] vaccines. Pt declines all today. Allergies Symptoms are con stant, moderate and worsening. Additional information: Bothering her latelyhas not had spray as had to purchasehas had allergies off and on for yrs. hyperlipidemia Risk factors inc lude age over 50. hypertension Thyroid problems Risk factors in clude female and history of hypothyroidism. Additional information: Hypothyroidism. immunization pt here for flu vaccineverified by IM attending Luzma Urinary symptoms The onset was 1 week ago. The severity of the problem is mild. Presenting/Initial symptoms include burning. Pertinent history includes being over 50 and being postmenopausal. Pertinent history does not include diabetes or alcohol consumption. There are no associated symptoms. Pertinent negatives include cloudy urine, constipation, decreased stream, dysuria, foul urine odor, hematuria, incomplete emptying, leakage requiring pads, mixed incontinence, nocturia, recurrent UTIs, slow stream, stress incontinence, urge incontinence, dribbling, urinary frequency, hesitancy, urinary retention, urgency, vaginal discharge, pain following intercourse, labia pain, lower abdominal pain, pelvic pain, perineal pain, rectal pain, urethral pain and vaginal pain. Additional information: denies blood. hypertension There are no ass ociated symptoms. Pertinent negatives include chest pain, claudication, confusion, diaphoresis, dyspnea, epistaxis, fatigue, headache, hematuria, irregular heartbeat/palpitations, nausea, tinnitus, transient weakness, tremor, visual disturbances and vomiting. Additional information: here for followup for BP. forgot to take med this morning because was rushing to get to clinic. hypertension The severity has been described as being moderate. It is currently stable. There are no associated symptoms. Thyroid on med left axillary pain The symptoms began 1 month ago. The location is below l armpit. pt states pain has been ongoing for wks states it fluctuatesdoes alot of housework using both arms Thyroid problems Risk factors in clude female and history of hypothyroidism. Additional information: due for lab check on lower dose. hypertension The severity has been described as being mild-moderate. It is currently stable. Pertinent negatives include chest pain and dyspnea. Musculoskeletal pain Onset: 1 we ek ago. It occurs constantly. Location: right buttock. The pain radiates to the right leg. The pain is sharp. Associated symptoms include decreased mobility and tingling in the legs. Additional information: Now improving. was very painful. does not need meds. colon cancer screening No prior screening. Denies risk factors. There are no associated symptoms. Additional information: No family history of colon cancer and fit ordered. hyperlipidemia Risk factors inc lude age over 50. Additional information: Follow-up and medication refill. hypertension The severity has been described as being mild-moderate. It is currently stable. Pertinent negatives include chest pain. Additional information: HTN follow-up and medication refills Follow up on lab test(s) Pt will like to discuss lab results.revd Colon Cancer Screening No prior screening. Denies risk factors. Pertinent negatives include abdominal pain, change in bowel habits, change in stool caliber, constipation, decreased appetite, diarrhea, melena, nausea, rectal bleeding, vomiting, weight gain and weight loss. Additional information: No family history of colon cancer, No family history of Crohn's/colitis, No NSAID/ASA use and Fit test ordered today. 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 It is currently stable. Pertinent negatives include chest pain. Thyroid problems The problem has worsened. Risk factors include female and history of hypothyroidism. Additional information: Needs refills; needs recheck on new dose. back pain Onset: 3 days ag o. Severity level is 7. The problem is stable. Location of pain is lower back.There is no radiation of pain. The patient describes the pain as an ache, deep and discomforting. Context: no injury. Additional information: occured when waking, day prior was carrying child she cares for around during the day, and then when woke had back pain. see standing orders Sore throat Onset: 1 Week. T he severity of the problem is moderate. Pain scale: 7/10. The problem has not changed. The symptoms are occasional. Symptoms are associated with history of allergies. The patient denies aggravating factors. Associated symptoms include cough (productive with clear sputum), nasal congestion and rhinitis. Pertinent negatives include dyspnea, fever or rash. Additional information: Pt. states that she can not swallow her saliva and her throat was swollen. Pt. needs refill on medications. Follow up on lab test(s) F/U on EMBx-done on 03/2017. Benign.Pt states she continues to have monthly menses and has never had lapse of menses or hot flashes. Previous note states pt had menopause at age 34 but she states this is not the case. Has appt scheduled with Dr Vogel in 1 week for cervical biospy.Pt reports heavy bleeding after EMB here in Mar. Follow up on lab test(s) preventive exam Currently pregna nt: no. Parity: Livin. The patient states she uses menopausal for control. Her menses is absent. Negative for: breast discharge, breast lump(s) and breast pain. Positive for: breast self exam.Postmenopausal. The patient does not use tobacco. She has not been exposed to passive smoke. She does not drink alcohol. Additional information: Pt scheduled for EMB due to postmenopausal bleeding. Pt states she has not experienced bleeding x 1 week. Last pap 05/2015 neg. Last mammogram 01/2017 neg. . hematuria The symptoms beg an 15 days ago. Was seen at [place] [facility] per patient on 03/08/2017-03/09/2017 . patient does not recall actual date. Went in Had noticed drops of bloodin her underwear. Hondo that it was in her urine. States that yesterday she noticed blood in the toilet bowl yesterday. Wears pads daily because of the spotting. No dysuria, no frequency. No flank pain. No fevers chills.Discharge diagnosis: BV, UTI. abnormal uterine bleeding. Given keflex and Flagyl-finished full course of medication.Had CT done: Endometrial stripe 7mm with trace fluid in canal. Needs EMBMenopause at 34 years old. HCM Patient declines flu vaccinepatient declines FIT test. Med refills hyperlipidemia Risk factors inc lude age over 50. The patient is adhering to medication for their hyperlipidemia. Pertinent negatives include chest pain. hypertension The severity has been described as being mild. Pertinent negatives include chest pain. Additional information: does not wish trial off tx Thyroid problems The problem has not changed. Risk factors include female. Additional information: Hypothyroidism. Cough Associated sympt oms include cough and nasal congestion. Pertinent negatives include fever or rash. Additional information: Congestion. daughter was sick first. pain in chest when coughs. cough + white sputum. Burning on urination Onset: 8 Da ys. The problem is severe. The problem has not changed. The symptoms are constant. Presenting/Initial symptoms include abdominal pain. Associated symptoms include dysuria, frequency and nocturia. Pertinent negatives include fatigue or fever. Additional information: trouble sleeping because has to urinate and [place] to urinate. depressed mood Since irma ssed away 6 mo ago from cancer. Support from children, including daughter she lives.Reports continued interest/pleasure in music, internet. Denies difficulty sleeping, appetite. No suicidal ideation/homicidal ideation. Allergies The patient pres ents with post nasal drainage and sneezing. Symptoms are mild. Additional information: Seasonal, usually onset in December. Ran out of fluticasone spray 2 weeks ago. No F/C/myalgias. hypertension Additional infor mation: No new complaints hypothyroidism The symptoms beg an 8 years ago. Stable dose of synthroid for several years. Denies anxiety, tremor, palpitations, no fatigue, no constipation, diarrhea. 9 lbs weight loss since visit in June 2016, patient states intentional w/ diet changes Dizziness Additional infor mation: Associated with sinus congestion, present x1 week, 1-2 per day. Occ positional. hyperlipidemia Risk factors inc lude age over 50. The patient is adhering to medication and follow-up for their hyperlipidemia. F/U TSH Ms. Horne is a 61F with history of hypothyroidism on Synthroid, HLD, HTN who presents for lab results. Patient had TSH checked after starting Synthroid in 04/2016; TSH is WNL. Patient is also requesting refill of her atenolol, which she has been on chronically for her HTN. She has no other complaints today. She is up-to-date on FIT testing, Pap smear, and mammogram (all completed in 2016 with no abnormalities). Had lipid panel last visit as well with elevated LDL to 150s, but is already taking Lipitor 40mg daily. depression (comments) Sx well co ntrolled at this time. Under stress while caring for . Thyroid problems Risk factors in clude female. Additional information: F/U- Thyroid check and med refill. depression The patient repo rts functioning as not difficult at all. The patient presents with depressed mood but denies difficulty concentrating, difficulty falling asleep, diminished interest or pleasure, feelings of guilt, loss of appetite, restlessness or thoughts of or suicide. Additional information: + PHQ, score #2. Allergies Additional infor yaritza: c/o- high phlegm and needs med refill- Nasonex. Allergies (comments) C/o nasal d ischarge which has been a chronic issue for her. Improved with qnasal, requesting refills. Thyroid problems (comments) Sarath roman synthroid 100 mcg in April but did not return for lab check. Endorses occasional papitations and prior hair loss. Denies heat/cold intolerance, weight gain or dry skin. Depression The patient does not present with anxious/fearful thoughts or fatigue. The patient denies any headache, nausea and vomiting. Additional information: 3 months ago, has good family support, no SI, still grieving. Cough Onset: 15 days a go. The patient describes the cough as moist and productive (of clear sputum). It occurs persistently. The problem has not changed. Associated symptoms include cough, nasal congestion and sore throat. Pertinent negatives include chills, dyspnea, fatigue, fever and wheezing. Additional information: Still w/ persistent cough since her last vist worse at night, productive of mucus. Symptoms are otherwise resolved except for cough. Not too much congestion, has to clear her throat. Received Flonase, is using it at night & in am. Not using saline rinses. Cough Onset: 2 days ag o. Additional information: productive of white phlegm ROS pos for myalgias, chills, DOUGLASS, sore throat, itchy eyes. ROS neg for fevers. Daughter at home w/ similar sx. TB Assesment positve TB Asses ment, patient was born in [facility], patient states she did receive BCG vaccine but does not recall what year, patient has not travelled oust side the [place] RX Patient would li ke to discuss RX and refills hypertension The severity has been described as being mild. It is currently stable. Pertinent negatives include chest pain. Additional information: Follow up B/P Musculoskeletal pain Onset: 1 we ek ago. Severity level is 6. It occurs intermittently and is worsening. Location: left shoulder. The pain is aching and throbbing. The pain is aggravated by lifting and movement. Med refills hypertension The severity has been described as being mild. It is currently stable. hypothyroid due for lab hypertension The severity has been described as being mild-moderate. It is currently stable. There are no associated symptoms. cold improving, had a sore throat ad mild cough preventive exam Currently pregna nt: no. Parity: Livin. Patient is not contemplating . Her menses is absent. Negative for: breast discharge, breast lump(s) and breast pain. Positive for: breast self exam.Postmenopausal. The patient does not use tobacco. She has not been exposed to passive smoke. She does not drink alcohol. Additional information: pap smear. Allergies Symptoms are int ermittent and moderate. The patient is also experiencing dizziness and nasal congestion. Additional information: needs refill. Thyroid problems Risk factors in clude female. Additional information: Hypothyroidism; insists on daily med, will increase dose. hypertension The severity has been described as being mild-moderate. It is currently stable. There are no associated symptoms. Wants flu shot Allergies Additional infor mation: Pt requests a refill on Rx. hypertension Additional infor mation: Pt requests a refill on HTN Rx. Hypothyroidism hypertension The severity has been described as being moderate. It is currently stable. There are no associated symptoms. Pertinent negatives include chest pain and dyspnea. Hypothyroidism Pt.States need a ll med refills. Thyroid problems Risk factors in clude female. hypertension Functional Status Date Functional Assessmen t No Information Instructions Date Instruction Additional Infor mation -Fluoroquinolone-hyd rocortisone ear drop BID Rx. 7-day course -Return precautions given (and return if symptoms persist or worsen beyond one week) Related to Acute otitis externa of right ear, unspecified type - On claritin- On eye drops Rela jessie to Allergic rhinitis Cont Coreg 6.25 BID Related to H ypertension Last labs much improvedCont stat in Related to Hyperlipidemia, unspecified Repeated labs today Cont levothyroxine Related to Hypothyroidism, unspecified - Referral to vascul ar surgery placed at prior visit and pending scheduling - Cont compression socks Related to Symptomatic varicose veins of both lower extremities Last pap: 2015 with normal results. Was 62 at last check and no longer doing them as she was near 64 with no abnormal Hx paps. Last mammogram: 2021 with BiRADS-1. Repeat ordered Last FIT: 05/2023 with negative results Last DEXA/bone scan: Due and ordered Lung cancer screen (>50 yo with >20 y smoking Hx): N.A. Related to Healthcare maintenance Cont lifestyle modif ications On atorva 40 qhs Related to Prediabetes Seeing dentistry Related to [place] al decay Check on referral an d let pt know next steps Related to Symptomatic varicose veins of both lower extremities Also check on DEXA, mammo referr als Related to Healthcare maintenance Giving encouragement to exercise Related to Body mass index (BMI) 28.0-28.9, adult Lifestyle education regarding di et Related to Body mass index (BMI) 28.0-28.9, adult Cont lifestyle modif ications On atorva 40 qhs Related to Prediabetes Dentistry referral placed Relate d to Dental decay - Metoprolol switche d to coreg 6.25 BID - health educator consuling at prior visits. Now has cuff- advised pt to check BP twice weekly Related to Essential (primary) hypertension - referral to vascul ar surgery placed at prior visit and pending scheduling - cont compression socks Related to Symptomatic varicose veins of both lower extremities Refilled statin Related to Hyper lipidemia, unspecified Last pap: 2015 with normal results -> was 62-63 at that timeLast mammogram: 2021 with BiRADS-1 -> ordered Last FIT: 2021 with normal results -> ordered Last DEXA/bone scan: Due -> ordered Lung cancer screen (>50 yo with >20 y smoking Hx): N.A. Vaccines: Infulenza today. Declines others. Completed PSV20 today at prior visit Related to Healthcare maintenance Repeated labs today Refilled levothyroxine Related to Hypothyroidism, unspecified refilled levothyroxine Related t o Hypothyroidism, unspecified - health educator co nsulted today -- provided pt w BP cuff and education on how to use BP cuff- advised pt to check BP daily and record on log for 2 weeks- follow up in 1 month in clinic to recheck BP and consider increasing mtp dose Related to Essential (primary) hypertension refilled statin Related to Hyper lipidemia, unspecified - referral to vascul ar surgery placed- start wearing compression socks daily - provided in clinic today by health educator Related to Symptomatic varicose veins of both lower extremities - Cetirizine- Dry eye, eye drop Related to Seasonal allergies - Cont synthroid- Repeat TSH Rel ated to Hypothyroidism, unspecified - Cont metop Related to Hyper tension - Cont atova- repeat lipids Rela jessie to Hyperlipidemia, unspecified - Due for Td, zoster - Completed PSV20 today - Due for marie; [facility] - Due for mammo; ordered today - A1c Related to Healthcare maintenance [facility] for marie smear Rel ated to Healthcare maintenance Giving encouragement to exercise Related to Body mass index (BMI) 28.0-28.9, adult Lifestyle education regarding di et Related to Body mass index (BMI) 28.0-28.9, adult Warm hand off to BH Related to A djustment disorder with mixed anxiety and depressed mood Clinically euthyroidLabs today R elated to Hypothyroidism, unspecified Sureswab and UA Related to Vagin al irritation - NaphCon A eye drop s (over the counter)- Return precautions discussed Related to Viral conjunctivitis Miralax given during clinic visit today.Pt instructed that if pain continues, return to clinic for RUQ US for further evaluation. Instructed that if pain acutely worsens or if pt develops fevers/chills to report to ED for further w/u. CBC, CMP ordered this visit. Colonoscopy referral ordered this visit. Related to Right upper quadrant abdominal pain Giving encouragement to exercise Related to Body mass index (BMI) 29.0-29.9, adult Lifestyle education regarding di et Related to Body mass index (BMI) 29.0-29.9, adult Return FIT test kit to the clini c Related to Encounter for screening for cancer of colon - take omeprazole 30 min before breakfast and dinner- follow up in 2-4 weeks for in-person evaluation Related to Gastroesophageal reflux disease, unspecified whether esophagitis present COVID negative revie wedcelio try omeprazoleper pt dry cough, on and off but worse last couple weeksrequesting refill of previous cough syrup; sent. Phone Consent:This visit was completed via telephone due to the restrictions of the COVID-19 pandemic. All issues as above were discussed and addressed but no physical exam was performed. If it was felt that the patient should be evaluated in clinic then they were directed there. The patient verbally consented to visit.Phone Time Documentation:Spent 12 minutes with patient on phone discussing health concerns. Related to Cough ER and return precautions Relate d to Cough Pt to return fit test rolando Relat ed to Encounter for screening for cancer of colon Coord: needs help ge tting mammo/breast US Related to Healthcare maintenance Giving encouragement to exercise Related to Body mass index (BMI) 28.0-28.9, adult Lifestyle education regarding di et Related to Body mass index (BMI) 28.0-28.9, adult Giving encouragement to exercise Related to Body mass index (BMI) 28.0-28.9, adult Lifestyle education regarding di et Related to Body mass index (BMI) 28.0-28.9, adult Giving encouragement to exercise Related to Body mass index (BMI) 27.0-27.9, adult Lifestyle education regarding di et Related to Body mass index (BMI) 27.0-27.9, adult Giving encouragement to exercise Related to Body mass index (BMI) 27.0-27.9, adult Lifestyle education regarding di et Related to Body mass index (BMI) 27.0-27.9, adult Return FIT KIT to in as soon as possible. Related to Encounter for screening for cancer of colon release of records Dr Lela fitch to Cervical mass Return FIT test kit to the clini c Related to Encounter for screening for cancer of colon send records from ER visit with referral ([facility]) Related to Post-menopausal bleeding send EMB results wit h referral as well. Related to Post-menopausal bleeding Culture and urinalys is sent to R/O hematuria/infection. Related to Other abnormal findings in urine Clinically euthyroid. Related to Hypothyroidism, unspecified Stable with anti-his tamine and flonase. Related to Allergic rhinitis, unspecified allergic rhinitis trigger, unspecified rhinitis seasonality Slightly above goalC ont current medicationLow sodium diet and exercise reviewed. Related to Hypertension Return to clinic if symptoms wor sen Related to Viral upper respiratory tract infection - Mammogram ordered today- FIT at next visit Related to Healthcare maintenance - Continue synthroid 100mcg po q d Related to Hypothyroidism, unspecified - Resume fluticasone nasal spray, 2 sprays per day x1 week, then one spray daily- Continue loratidine, refill provided Related to Allergic rhinitis, unspecified allergic rhinitis trigger, unspecified rhinitis seasonality - Continue atorvasta tin 40mg, refilled today- Continue diet and exercise lifestyle modifications Related to Hyperlipidemia, unspecified - Continue atenolol, refilled to day Related to Essential (primary) hypertension - Offered therapy, p atient declines for now. Has good family support.- Patient will call back if worsening symptoms Related to Adjustment disorder with depressed mood - Continue Synthroid 100mcg eyad y. Related to Hypothyroidism, unspecified - Up-to-date. Related to Healt hcare maintenance - Refilled atenolol 25mg daily today. Related to Essential (primary) hypertension 1. Recommended weigh t loss, minimize refined carbsPara bajar de peso- Apuntar a ejercitar hasta 30 minutos por d???a 5 d???as a la semana. Comienza lento con 10 minutos cada 3 d???as o lo que sea que puedas hacer e ir desde all???!- Coma menos alimentos procesados (chips, galletas, tortillas)- Come m???s frutas y vegetales- Evite los alimentos fritos Related to Prediabetes 1. Refill atenolol Related to Es sential (primary) hypertension 1. Repeat lipid pane l and check LFTs1. Prueba de ori hoy Related to Hyperlipidemia, unspecified 1. Refill qnasal today Related t o Allergic rhinitis 1. TSH today2. Retur n in 1 week to follow-up results1. Prueba de ori hoy2. Regrese en inna semana para discutir los resultados Related to Hypothyroidism, unspecified - Last mammo wnl in 02/2015, next due in 02/2017- Last FIT wnl in 02/2015, next due NOW, ordered TODAY- Last PAP w/ HPV wnl in 05/2015, next due in 2020- Did not receive flu vaccine for but sick today so will defer for now- Address last Tdap at next visit- A1c 5.4% in 06/2015, recheck TODAY- HCV neg in 06/2015 Related to Healthcare maintenance - TSH today- Refille d synthroid today, 100mcg daily Related to Hypothyroidism, unspecified - Refill flonase Related to Diallo rgic rhinitis - FIT testing Related to Encou nter for screening for cancer of colon - Check A1c today Related to Imp aired fasting glucose - Refill lipitor 40m g daily- Fasting lipid panel to be done in the future when fasting Related to Hyperlipidemia, unspecified - Refill atenalol 25 mg PO daily- RTC 2 wks for BP check and uptitration of BP meds if needed Related to Essential (primary) hypertension - Rx for benadryl an d Robitussin DM for rhinorrhea, itchy eyes and cough- More fluid intake- Rest- Education about viruses and to let them take their course Related to Viral URI Return FIT test kit to the clini c Related to Encounter for screening for cancer of colon Take medications daily Related t o Essential (primary) hypertension Low salt diet Related to Essen tial (primary) hypertension Assessments Type Assessment Date No Information Patient Care Teams Name Effective Dates (sta rt - stop) Status Members RONAK Jimenez - James Stuart - active Lily Hampton.Internal Med Resident.(Lead)
--- OUTSIDE RECORDS SUMMARY | 2024-05-16 14:36 | XMS_ITS | Data Portability ---
Author Organization [employer] [facility] [employer] [place] [facility] [place] Address [address] [place] [id number] Assessment Encounter Date Assessment Date Assessment LastModified by Organization Details LastModified Time 05/19/2023 05/19/2023 service called for SOB found 68 blaine with asthma, HTN, CAD c/o SOB 3d denies chest pain reports chest pressure with wheeze/SOB no fever, chills albuterol rescue inhaler ineffective VSS reported reduced air movement and apical wheezes, much improved after duoneb EKG: sinus, no ST/T wave changes for ischemia #Asthma Exacerbation pt with some improvement after 1 duoneb tremulous comfortable but reports about 50% better reports does not have history of PO pred taper usage -short burst PO pred, continue albuterol rescue inshaler -recontact service if no improvement -otherwise return to primary team vkudesia Not available 05/19/2023 19:03:24 Plan of Treatment Reminders Order Date Submit Date Provider Last Modified By Organization Details Last Modified Time Details Appointments None recorded. Lab None recorded. Referral None recorded. Procedures None recorded. Surgeries None recorded. Imaging None recorded. Medication Orders prednisone 20 mg tablet 2023 024 [id number], [address] [place], [address], 18:26:49 Patient TargetsNo targets recorded. Patient InstructionsNo instructions recorded. Reason for Referral None Reported. Medical Equipment None Reported. Allergies Allergen ID Allergen Name Allergen Category Reaction Reaction Severity Criticality Documentation Date Start Date Code Code System Note Provider Name and Address Organization Details Recorded Time 3383 Product containin g penicilli n and antibioti c (product) medicatio n Not available Not available Not available 02/14/2024 43400 05 SNOMED Not Available [facility] - production 03:44:38 8489 aspirin medicatio n Not available Not available Not available 02/14/2024 1191 RxNorm Not Available [facility] - production 4 03:44:38 Medications Name Sig Start Date Stop Date Status Note LastModified by Organization Details LastModified Time tizanidine 2 mg tablet TOME ELIN TABLETA DOS VECES AL D A NEEDED FOR FOR MUSCLE SPASM active Not Available Not Available No t Available atorvastatin 10 mg tablet TOME ELIN TABLETA POR V A ORAL TODOS LOS D AL ACOSTARSE FOR 90 DAYS active Not Available Not Available Not Available tizanidine 4 mg tablet PLEASE SEE ATTACHED FOR DETAILED DIRECTIONS active Not Available Not Available N ot Available prazosin 1 mg capsule TOME ELIN C PSULA TODOS LOS D AL ACOSTARSE active Not Available Not Available No t Available prednisone 20 mg tablet TOME ELIN TABLETA TODOS LOS D POR 3 D active Not Available Not Available No t Available omeprazole 40 mg capsule,alberto yed release TOME 1 C PSULA POR V A ORAL TODOS LOS D FOR 90 DAYS active Not Available Not Available No t Available aspirin 81 mg tablet,delay ed release TOME LEIN TABLETA TODOS LOS D active Not Available Not Available No t Available oxycodone-ac etaminophen 5 mg-325 mg tablet TOME ELIN TABLETA TODOS LOS D CUANDO SEA NECESARIO PARA EL DOLOR active Not Available Not Available No t Available calcium 500 mg (as calcium carbonate 1,250 mg) tablet TOME ELIN TABLETA POR V A ORAL TODOS LOS D FOR 90 DAYS active Not Available Not Available No t Available trazodone 100 mg tablet TOME ELIN TABLETA TODOS LOS D AL ACOSTARSE CUANDO SEA NECESARIO active Not Available Not Available No t Available prednisone 2.5 mg tablet active Not Available Not Available Not Available triamcinolon e acetonide 0.1 % topical ointment APLICAR A LOS JAIME DOS VECES AL D A CUANDO SEA NECESARIO active Not Available Not Available No t Available montelukast 10 mg tablet TOME ELIN TABLETA TODOS LOS D active Not Available Not Available No t Available ibuprofen 600 mg tablet TAKE 1 TABLET ORALLY EVERY 8 HOURS NEEDED FOR PAIN TAKE WITH FOOD active Not Available Not Available No t Available Ventolin HFA 90 mcg/actuatio n aerosol inhaler INHALE 2 PUFF ORALLY EVERY 6 HOURS NEEDED FOR FOR WHEEZING active Not Available Not Available No t Available oxycodone 5 mg tablet TAKE 1 TABLET ORALLY DAILY NEEDED FOR PAIN, SEVERE FOR 30 DAYS active Not Available Not Available No t Available escitalopram 20 mg tablet TOME ELIN TABLETA TODOS LOS D active Not Available Not Available No t Available ezetimibe 10 mg tablet TOME ELIN TABLETA POR V A ORAL TODOS LOS D active Not Available Not Available No t Available quetiapine 50 mg tablet TAKE 2 TABLET BY MOUTH ONCE A DAY NEEDED FOR ANXIETY active Not Available Not Available No t Available buprenorphin e 20 mcg/hour weekly transdermal patch PLACE 1 PATCH TRANSDERMAL LY EVERY 7 DAYS FOR PAIN FOR 28 DAYS active Not Available Not Available No t Available Myrbetriq 50 mg tablet,exten ded release TOME ELIN TABLETA TODOS LOS D active Not Available Not Available No t Available Breo Ellipta 200 mcg-25 mcg/dose powder for inhalation INHALE UN SOPLIDO TODOS LOS D active Not Available Not Available No t Available Belbuca 300 mcg buccal film USE 1 FILM POR V A ORAL CADA DOCE HORAS CUANDO SEA NECESARIO PARA EL DOLOR active Not Available Not Available No t Available Belbuca 450 mcg buccal film DNFB DATE ON RX=05/20/19 24DISSOLV E 1 FILM BUCCALLY TWICE DAILY FOR PAIN FOR 30 DAYS. active Not Available Not Available No t Available Dupixent 300 mg/2 mL subcutaneous syringe active Not Available Not Available Not Available Flowflex COVID-19 Antigen Home Test kit USE SEG N LO INDICADO active Not Available Not Available Not Available Vitals Date Recorded Heart rate Body temperature Respiratory rate Oxygen saturation Oxygen saturation in Arterial blood by Pulse oximetry Systolic blood pressure Diastolic blood pressure Provider Name and Address Organization Details Last Updated DateTime 4 93 /min 98.1 [degF] 20 /min 97 % 97 % 142 mm[Hg] 74 mm[Hg] Not Available [facility] - production 4 18:02:15 Social History None recorded. Functional Status None recorded. Mental Status None recorded. Family History Nothing Reported. Medical History No medical history recorded. Gynecological HistoryNo gynecological history recorded. Obstetrics History GPAL:G 0 P 0 0 0 0 Past Encounters Encounter ID Performer Location Encounter Start Date Encounter Closed Date Diagnosis/Indication Diagnosis SNOMED-CT Code Diagnosis ICD10 Code Diagnosis Note [id number] Efrain Gomez MD Main - [address] [address] 05/19/2023 18:01:49 05/20/2023 11:31:35 Exacerbation of intermittent asthma 497857688 J45.21 Health Concerns Section Related Observation LastModified by Organization Detai ls LastModified Time None Recorded Concern Status LastModified by Organization Details LastModified Time None Recorded Advance Directives Directive None Recorded Payers Encounter Date Sequence Insurance Name Policy Number Policy Davidson Covered Member ID Davidson Member ID Guarantor Name 05/19/2023 1 [facility] - DOS ON OR AFTER 2022 - DUAL ELIGIBLE - [facility] OPT[facility] AND ONE CARE (MEDICARE REPLACEMENT/ADV ANTAGE - HMO) Celia Madrigal [id number] Celia Madrigal Notes Date Note Type Note Provider Name and Address Organization Details Recorded Time 05/19/2023 text/html HPI: Member calls in stating that she started feeling poorly three days ago. Member complaining of intermittent chest tightness 5/10, shortness of breath, congestion, weakness. Member talking in full sentences. Member states that she has asthma and has been using her inhaler twice a day without relief. Member denies cough, sore throat, fever. Member called her anchorer, and she cannot be seen until June. Member requesting home visit. Member advised to call 911 with any worsening symptoms. PMH: includes but not limited to HTN, coronary artery disease, asthma, IBD, GERD, anxiety ................... ................... ................... ................... ................... ................... ................... ........ [facility] Nurse Triage Notes (Leonor Vizcaino): Comments: No further information required to process visit. ................... ................... ................... ................... ................... ................... ................... ........ Rn Or Lvn Note From Yuri Bedolla: Encountered patient conscious, alert and ambulatory. Patient states that for approximately a week and a half she has been experiencing shortness of breath and fatigue alongside intermittent chest pains. Patient states that the chest pain is not currently present, but is short of breath at rest, patient denies changes and vision or vomiting or dizziness at this time; does endorse intermittent nausea. flu and Covid swaps both performed, both resulted negative; results relayed to [facility]. Skin warm, dry and of appropriate color for ethnicity. Head and neck, free of trauma and edema. ? JVD. Breath sounds diminished in all hopper and exhibit faint expiratory wheezes in the apexes bilaterally. Abdomen soft, non-tender and non-distended. extremities, free of trauma and edema. [facility] contacted: Duoneb treatment administered. 12 lead EKG performed: sinus rhythm with septal T-wave inversion noted. 30 mg of PO prednisone administered. [facility] to write prescription for further treatment at patient? s pharmacy of choice. Red flags discussed with patient: patient urged to seek further medical attention, including 911, if her shortness of breath worsens, she were to develop chest pain or acute changes in vision. Patient also advised to follow up with her primary care physician as soon as possible. Patient verbalizes understanding and comfort with the plan, and would also like to remain at home. Rn Or Lvn Allergies: Penicillin, Aspirin ................... ................... ................... ................... ................... ................... ................... ........ Disposition: Fulfilled Efrain Gomez MD [address] [place] [address],[address], [place], [address], [facility] 05/19/2023 19:03:41 OBGyn Episode No OBEpisode recorded.
--- OUTSIDE RECORDS SUMMARY | 2024-05-16 14:36 | XMS_ITS | Clinical Summary ---
Author Organization [facility] Location Address [address] [place] [address] Phone Care Team Providers Care Director Business Integration Name Role Phone Curt Falk MD Primary Care Provider [phone] Surgical History Surgery Date Site/Laterality Comments OTHER SURGICAL HISTORY PROCEDURE: HISTORY OTHER; COMMENT: COLONOSCOPY OTHER SURGICAL HISTORY PROCEDURE: HISTORY OTHER; COMMENT: TOOTH EXTRACTION OTHER SURGICAL HISTORY 09/22/2021 PROCEDURE: HISTORY OTHER; COMMENT: TOTAL KNEE REPLACEMENT OTHER SURGICAL HISTORY PROCEDURE: HISTORY OTHER; COMMENT: CYSTOSCOPY Medical History Medical History Date Comments Depression DX:Depression Asthma DX:Asthma Foot pain, bilateral DX:Foot heidy n, bilateral GERD (gastroesophageal reflux disease) DX:GERD (gastroesophageal reflux disease) Insomnia DX:Insomnia IBS (irritable bowel syndrome) D X:IBS (irritable bowel syndrome) Arthralgia DX:Arthralgia KAMILA positive DX:KAMILA positive BRIDGETTE (obstructive sleep apnea) DX :BRIDGETTE (obstructive sleep apnea) Osteoarthritis DX:Osteoarthriti s; COMMENT: OF RIGHT KNEE Vitamin D deficiency DX:Vitamin D deficiency Urticaria DX:Urticaria Chronic interstitial cystitis DX :Chronic interstitial cystitis Family History Medical History Relation Name Comments Hypertension Father Diabetes Mother Hypertension Mother at 85 of h eart related causes Other: CVD Mother Other: valve replacement Mother Relation Name Status Comments Father Mother Social History Tobacco Use Types Packs/Day Years Used Date Smoking Tobacco: Never Smokeless Tobacco: Never Alcohol Use Standard Drinks/Week Comments Never 0 (1 standard drink = 0.6 oz pur e alcohol) Sex and Gender Information Value Date Recorded Sex Assigned at Not on file Gender Identity Not on file Sexual Orientation Not on file Obstetrics History Last Filed Vital Signs Vital Sign Reading Time Taken Comments Blood Pressure 134/66 05/11/2023 12:52 PM EST Si tting L Arm Pulse - - Temperature - - Respiratory Rate - - Oxygen Saturation - - Inhaled Oxygen Concentration - - Weight 87.5 kg (193 lb) 05/11/2023 12:52 PM EST Height 152.4 cm (5') 05/11/2023 12:52 PM EST Body Mass Index 37.69 05/11/2023 12:52 PM EST Plan of Treatment Health Maintenance Due Date Last Done Comments Breast Cancer Screening 1955 Zoster Vaccines (1 of 2) 2004 Pneumococcal Vaccine: 65+ Ye ars (1 of 1 - PCV) 2019 Cholesterol Screening (Lipid Panel) 03/21/2022 Colorectal Cancer Screening: Colonoscopy 03/21/2022 Depression Screening 03/21/2022 Falls Risk Assessment 03/21/2022 Hepatitis C Screening 03/21/2022 Osteoporosis Screening (Bone Density Screening) 03/21/2022 Social Influencers of Health Screening 03/21/2022 COVID-19 Vaccine (1 - 2023-2 5 season) 2023 Influenza Vaccine (#1) 2023 DTaP,Tdap,and Td Vaccines (2 - Td or Tdap) 01/27/2026 01/28/2016 RSV Immunization Patients 60 + Years Old (1 - 1-dose 75+ series) 2029 HIB Vaccines Aged Out No longer eligi ble based on patient's age to complete this topic HPV Vaccines Aged Out No longer eligi ble based on patient's age to complete this topic Hepatitis A Vaccines Aged Out No long er eligible based on patient's age to complete this topic Hepatitis B Vaccines Aged Out No long er eligible based on patient's age to complete this topic IPV Vaccines Aged Out No longer eligi ble based on patient's age to complete this topic MMR Vaccines Aged Out No longer eligi ble based on patient's age to complete this topic Meningococcal ACWY Vaccine Aged Out N o longer eligible based on patient's age to complete this topic RSV Immunization Patients Un rodri 20 months Aged Out No longer eligible b ased on patient's age to complete this topic Varicella Vaccines Aged Out No longer eligible based on patient's age to complete this topic Care Teams Director Business Integration Relationship Specialty Start Date End Date Curt Falk MD [address] [place] [address] Dr [address] WILLIAM Barrera PCP - General 07/16/21
--- OUTSIDE RECORDS SUMMARY | 2024-05-16 14:36 | XMS_ITS | Continuity of Care Document ---
Author Organization [facility] Address [address] [place] [address] Phone Care Team Providers Care Division Merchandise Manager Name Role Phone Leonor Yousif DMD Unavailable [...] Control And P revention Dental case management ??? motivational interviewing Caries risk assessment & documentation, high risk Nutritional Counseling For Control Of De ntal Disea Self-Mangement Goal Set Advance Directives Directive Yes / No Effective Date File Name No Information Encounters Encounter Description Practice Location Reason(s) For Visit Diagnoses Date Provider Providers Copied on Encounter [facility], [address] [place], [place], [id number], [place] tel:[phone] [facility] Encounter for dental examination and cleaning with abnormal findingsTobacco abuse counselingOther specified counselingRisk for dental caries, highDietary counseling and surveillance David Galvez. [address], [place], [id number], [place]. tel:[phone] Family History Family Member Type Diagnosis Age At Onset No Information Payers Payer name Insurance type Covered green party ID Omid otero(s) [facility] OP [id number] DENTICAL [id number] Social History Type Description Quantity Date Captured [...] Type Action Status Patient Education Britney dental: [employer] us en espa???ol completed History Of Present Illness Encounter Date [...]
== END 2024-05-16 13:36 | disposition home or self-care (01) ==
PROVIDERS: PCP Internal Medicine; Visit Provider Internal Medicine
DX: E78.00 Pure hypercholesterolemia, unspecified (principal); I10 Essential (primary) hypertension; R73.01 Impaired fasting glucose; F33.9 Major depressive disorder, recurrent, unspecified; M47.27 Other spondylosis with radiculopathy, lumbosacral region; M16.11 Unilateral primary osteoarthritis, right hip; M17.0 Bilateral primary osteoarthritis of knee; M25.50 Pain in unspecified joint; J45.40 Moderate persistent asthma, uncomplicated; K21.9 Gastro-esophageal reflux disease without esophagitis; K22.2 Esophageal obstruction; K58.9 Irritable bowel syndrome, unspecified

== ENCOUNTER → 2024-05-16 12:18 | Outpatient (BNVA) | payer OTHER, MEDICAID, SELFPAY | PROVIDERS: PCP Internal Medicine; Visit Provider Internal Medicine | DX: E78.00 Pure hypercholesterolemia, unspecified (principal); I10 Essential (primary) hypertension; R73.01 Impaired fasting glucose; M47.27 Other spondylosis with radiculopathy, lumbosacral region; M16.11 Unilateral primary osteoarthritis, right hip; M17.0 Bilateral primary osteoarthritis of knee; M25.50 Pain in unspecified joint; J45.40 Moderate persistent asthma, uncomplicated; K21.9 Gastro-esophageal reflux disease without esophagitis; K22.2 Esophageal obstruction; K58.9 Irritable bowel syndrome, unspecified; E55.9 Vitamin D deficiency, unspecified; N30.10 Interstitial cystitis (chronic) without hematuria; N20.0 Calculus of kidney; G47.00 Insomnia, unspecified; F41.9 Anxiety disorder, unspecified; F33.9 Major depressive disorder, recurrent, unspecified; E66.9 Obesity, unspecified; Z68.41 Body mass index [BMI] 40.0-44.9, adult; Z71.3 Dietary counseling and surveillance | CPT/HCPCS: 96127; 99212 ==

== ENCOUNTER 2024-05-17 13:25 | Outpatient (AMB) | payer OTHER, MEDICAID, SELFPAY ==
--- NOTE | 2024-05-17 12:51 | A.OFFVISCC_ITS ---
Intake Visit Reasons: MAT Tele Allergies Penicillins [PENICILLINS] Allergy (Intermediate, Verified 05/16/24 13:24) RASH HPI HPI MAT Tele: Details: Wallisian speaking patient presents for follow up via telehealth Currently prescribed Belbuca 150mcg BID Tolerating current dose, denies any increase in pain or discomfort Saw PCP yesterday, 05/16. No medicaiton changes Review of Systems Const Reports as per HPI, Reports no additional complaints and Reports difficulty sleeping (chronic issue ) Telehealth Telehealth Telehealth Platform: Telephone Location of provider rendering services: practice address Location of patient: address on file Patient Identification confirmed using: Name, : Yes Patient verbally consented to treatment: Yes Patient verbally consented to billing insurance company: Yes Minutes spent on Phone/Video with Pt.: 15 PFSH Medical History Depression Anxiety Insomnia Myalgia, upper arm Osteoarthritis of right knee Lumbar spondylosis Foot pain, bilateral BRIDGETTE (obstructive sleep apnea) Asthma KAMILA positive Urticaria Obesity (BMI 30-39.9) Vitamin D deficiency Chronic interstitial cystitis Irritable bowel syndrome (IBS) Arthralgia Osteoarthritis Esophageal stricture GERD (gastroesophageal reflux disease) Left lumbar radiculopathy CAD (coronary artery disease) Pure hypercholesterolemia Benign essential hypertension Surgical History History of surgery History of total right knee replacement (09/22/21) Hx of cystoscopy Status post balloon dilatation of esophageal stricture (~2005) History of cardiac catheterization History of colonoscopy History of nephrolithotomy with removal of calculi History of tooth extraction Family History Father Hypertension Mother Hypertension Diabetes CVD (cardiovascular disease) Daughter No problems noted. Family/Other FH: mental illness Other Mental health problem Substance abuse Social History Housing: Apartment Are you a primary resident care spec to a significant other at home: No Do you presently have visiting nurse or other home services: No Alcohol intake: never Comment: medicated, see MAR Patient Tobacco Use Status: Never used Tobacco e-Cigarette/Vaping Use: Never Used Second Hand Smoke Exposure: No service: No Current occupational status: disabled Cognitive needs: No Hearing needs: No Vision needs: Yes Assessment & Plan Assessment & Plan (1) Opioid dependence: Code(s): F11.20 - Opioid dependence, uncomplicated Category: Medical Plan: * continue belbuca at current dose * refill due in 2 weeks * follow up 6 weeks in office, encouraged to call [facility] should she need to be seen sooner
--- OUTSIDE RECORDS SUMMARY | 2024-05-17 17:19 | XMS_ITS | Data Portability ---
Author Organization [employer] [facility] [employer], [employer] in [employer] Address [address] [place] [phone] Assessment Encounter Date Assessment Date Assessment LastModified [...] Orders prednisone 20 mg tablet [address] [facility] #[id number], [address] [place], [address], 4 18:26:49 Patient TargetsNo targets recorded. Patient InstructionsNo instructions recorded. Reason for Referral None Reported. Medical Equipment None Reported. Allergies Allergen ID Allergen Name Allergen Category Reaction Reaction Severity Criticality Documentation Date Start Date Code Code System Note Provider Name and Address Organization Details Recorded Time 2450 Product containin g penicilli n and antibioti c (product) medicatio n Not available Not available Not available 02/14/2024 52436 05 SNOMED Not Available [facility] - production [...] aspirin 81 mg tablet,delay ed release TOME ELIN TABLETA TODOS LOS D [...] SNOMED-CT Code Diagnosis ICD10 Code Diagnosis Note [id number] Efrain Gomez MD Main - [address] [phone] 05/19/2023 18:01:49 05/20/2023 11:31:35 Exacerbation of intermittent asthma 271524833 J45.21 Health Concerns Section Related Observation LastModified by Organization Detai ls LastModified Time None Recorded Concern Status LastModified by Organization Details LastModified Time None Recorded Advance Directives Directive None Recorded Payers Encounter Date Sequence Insurance Name Policy Number Policy Davidson Covered Member ID Davidson Member ID Guarantor Name 05/19/2023 1 [facility] - DOS ON OR AFTER 2022 - DUAL ELIGIBLE - CARE HOME OPTIONS AND ONE CARE (MEDICARE REPLACEMENT/ADV ANTAGE - HMO) Celia Madrigal [id number] Celia Madrigal Notes Date Note Type Note [...] cough, sore throat, fever. Member called her supervisor prepress, and she cannot be seen until June. [...] ................... ................... ................... ................... ................... ................... ........ Florist Designer Note From Yuri Bedolla: Encountered patient conscious, [...] performed, both resulted negative; results relayed to [facility]. Skin warm, dry and of appropriate color for ethnicity. Head and neck, free of trauma and edema. ? JVD. Breath sounds diminished in all hopper and exhibit faint expiratory wheezes in the apexes bilaterally. Abdomen soft, non-tender and non-distended. extremities, free of trauma and edema. [facility] contacted: Duoneb treatment administered. 12 lead EKG performed: sinus rhythm with septal T-wave inversion noted. 30 mg of PO prednisone administered. [facility] to write prescription for further treatment at [...] would also like to remain at home. Florist Designer Allergies: Penicillin, Aspirin ................... ................... ................... ................... ................... ................... ................... ........ Disposition: Fulfilled Efrain Gomez MD [address] [place] [address],[address], [place], [address], [id number] 05/19/2023 19:03:41 OBGyn Episode No OBEpisode recorded.
--- OUTSIDE RECORDS SUMMARY | 2024-05-17 17:19 | XMS_ITS | Continuity of Care Document ---
Author Organization [employer] Address [address] [place] [address] Phone Care Team Providers Care Hot Head Machine Operator Name Role Phone Leonor Yousif DMD Unavailable [...] Diagnoses Date Provider Providers Copied on Encounter [employer], [address] [place], [place], [id number], [place] tel:[phone] [facility] Encounter for dental examination and cleaning with abnormal findingsTobacco abuse counselingOther specified counselingRisk for dental caries, highDietary counseling and surveillance David Galvez. [address], [place], [id number], [place]. tel:[phone] Family History Family Member Type Diagnosis Age At Onset No Information Payers Payer name Insurance type Covered republican ID Omid otero(s) [facility] OP [id number] DENTICAL [id number] Social History Type Description Quantity Date Captured [...]
--- OUTSIDE RECORDS SUMMARY | 2024-05-17 17:20 | XMS_ITS | Clinical Summary ---
Author Organization [facility] Location [place] [address] [place] [address] Phone Care Team Providers Care Rn Field Name Role Phone Curt Falk MD Primary Care Provider [phone] Surgical History Surgery Date Site/Laterality Comments OTHER [...] age to complete this topic Care Teams Rn Field Relationship Specialty Start Date End Date Curt Falk MD [address] [place] [address] Dr [address] WILLIAM Barrera PCP - General 07/16/21
--- OUTSIDE RECORDS SUMMARY | 2024-05-17 17:20 | XMS_ITS | Continuity of Care Document ---
Author Organization [facility] Address [address] [place] [address] Phone Care Team Providers Care Group Practice Pediatrician Name Role Phone Jonh Liu MD Unavailable Unavailable Allergies, Adverse Reactions, [...] With Patient And O r Family M [facility] PT Psychotherapy, 30 Min With Patient And O r Family M [facility] - [facility] PT Non-Billable Phone Consultation Psychotherapy, 30 Min With Patient And O r Family M [facility] - [facility] IN [facility] PT Psychotherapy, 45 Min With Patient And [...] With Patient And O r Family M [facility] - [facility] IN [facility] PT VENIPUNCTURE LIMITED EXAM,ESTAB PAT. Psychotherapy, 30 Min With Patient And O r Family M [facility] - [facility] IN [facility] PT HEMOGLOBIN (HGB) INTERMED EXAM,ESTAB PAT EAR [...] Diagnoses Date Provider Providers Copied on Encounter [facility], [place], [address], [place] tel:[phone] [facility] No Information 5 Noe Lopez. [place], [id number], [place]. tel:[phone] [facility], [address] [place] [address], [address], [place] tel:[phone] [facility] No Information 4 Noe Lopez. [facility] [place], [id number], [place]. tel:[phone] [facility], [address] [place] [address], [address], [place] tel:[phone] [facility] No Information 4 Noe Lopez. [address] [place], [id number], [place]. tel:[phone] [facility], [address] [place] [address], [address], [place] tel:[phone] [facility] No Information 4 Noe Lopez. [address] [place] [address], [id number], [place]. tel:[phone] INTERMED EXAM,ESTAB PAT [facility], [address] [place] [address], [address], [place] tel: [phone] [facility] hypertension (chief complaint)hcm (chief complaint)HPI (chief complaint) HypertensionH ypothyroidism , unspecifiedHy perlipidemia, unspecifiedSy mptomatic varicose veins of both lower extremitiesDe ntal decayPrediabe tesHealthcare maintenanceAl lergic rhinitisImpac jessie cerumen, unspecified earAcute otitis externa of right ear, unspecified type 4 Resident Internal Med. . [facility], [address] [place] [address], [address], [place] tel:[phone] [facility] No Information 4 Jaquelin Lorenzo. [address] [place] [address], [id number], [place]. tel:[phone] LIMITED EXAM,ESTAB PAT. [facility], [address] [place] [address], [address], [place] tel:[phone] [facility] HTN F/u (chief complaint) Body mass index [BMI] 28.0-28.9, adultHyperten sara 4 Resident Internal Med. . INTERMED EXAM,[facility], [address] [place] [address], [address], tel:[phone] [facility] hypertension (chief complaint)thy roid (chief complaint)HCM (chief complaint)hpi (chief complaint) Hypothyroidis m, unspecifiedHy perlipidemia, unspecifiedEs sential (primary) hypertensionS ymptomatic varicose veins of both lower extremitiesHe althcare maintenanceBr east screeningOste oporosis screeningEnco unter for immunizationD ental decayPrediabe lui 4 Resident Internal Med. . [facility], [address] [place] [address], [address], tel:[phone] [facility] Counseling, unspecified 3 Health Education. . [facility], [address] [place] [address], [address], tel:[phone] [facility] Counseling, unspecified 3 Health Education. . INTERMED EXAM,[facility], [address] [place], [address], tel:[phone] [facility] varicose veins (chief complaint) Symptomatic varicose veins of both lower extremitiesEs sential (primary) hypertensionH yperlipidemia , unspecifiedHy pothyroidism, unspecified 3 Resident Internal Med. . INTERMED EXAM, [facility], [address] [place] [address], [address], tel:[phone] [facility] hypertension (chief complaint)hyp erlipidemia (chief complaint)Thy roid problems (chief complaint) Healthcare maintenanceHy pothyroidism, unspecifiedHy perlipidemia, unspecifiedHy pertensionBod y mass index [BMI] 28.0-28.9, adultImmuniza tion not carried out because of patient refusalEncoun ter for immunizationS easonal allergies 3 Resident Internal Med. . [facility], [address] [place], [address], [place] tel:[phone] [facility] No Information 3 [facility]. [address] [place], [address], [place]. tel:[phone] Psychotherap y, 30 Min With Patient And Or Family M [facility], [address] [place], [address], [place] tel:[phone] [facility] Adjustment disorder with mixed anxiety and depressed mood 3 [facility]. [address] [place], [place], [id number], [place]. [phone] Psychotherap y, 30 Min With Patient And Or Family M [facility], [address] [place], [address], [place] [phone] [facility] Adjustment disorder with mixed anxiety and depressed mood 3 [facility]. [address] [facility], [id number], [place]. tel:[phone] [facility], [address] [place], [address], [place] tel:[phone] [facility] No Information 2 Management Case. [address] [place], [id number], [place]. tel:[phone] Psychotherap y, 30 Min With Patient And Or Family M [facility], [address] [place], [address], [place] tel:[phone] [facility] Adjustment disorder with anxiety 2 [facility] Suzette. [address] [place], [id number], [place]. tel:[phone] Psychotherap y, 45 Min With Patient And Or Family M [facility], [address] [place], [address], [place] [phone] [facility] Adjustment disorder with mixed anxiety and depressed mood Jan- 2 [facility]. [address] [place], [id number], [place]. tel:[phone] Psychotherap y, 45 Min With Patient And Or Family M [facility], [address] [place], [address], [place] tel:[phone] [facility] Adjustment disorder with mixed anxiety and depressed mood 2 [facility]. [address] [place], [id number], [place]. [phone] INTERMED EXAM,ESTAB PAT [facility], [address] [place], [address], [place] tel:[phone] [facility] Eye problems (chief complaint)Hyp othyroidism (chief complaint)HCM (chief complaint) Immunization not carried out because of patient refusalHypoth yroidism, unspecifiedBl epharitis of upper eyelids of both eyes, unspecified typeHypertens ionHyperlipid emia, unspecifiedAl lergic conjunctiviti s, bilateralPain of right eyeEncounter for immunization 2 Resident MED/PED. . Psychotherap y, 60 Min With Patient And Or Family M [facility], [address] [place], [address], [place] tel:[phone] [facility] Adjustment disorder with mixed anxiety and depressed mood 2 [facility]. [address] [place] [place], [id number], [place]. tel:[phone] Psychotherap y, 60 Min With Patient And Or Family M [facility], [address] [place], [address], [place] tel:[phone] [facility] Adjustment disorder with mixed anxiety and depressed mood Jan- 2 [facility]. [address] [place], [id number], [place]. tel:[phone] Psychotherap y, 60 Min With Patient And Or Family M [facility], [address] [place], [address], [place] tel: [phone] [facility] Adjustment disorder with mixed anxiety and depressed mood Sep-3 0 2 Fredrick Suzette. [address] [place], [place], [id number], [place]. tel:[phone] Psychotherap y, 45 Min With Patient And Or Family M [facility], [address] [place], [address], [place] tel: [phone] [facility] Adjustment disorder with mixed anxiety and depressed mood Sep-2 2 Fredrick Suzette. [address] [place], [place], [id number], [place]. tel:[phone] Psychotherap y, 60 Min With Patient And Or Family M [facility], [address] [place], [address], [place] tel: [phone] [facility] Adjustment disorder with mixed anxiety and depressed mood Sep-1 2 Fredrick Suzette. [address] [place], [place], [id number], [place]. tel:[phone] Psychotherap y, 60 Min With Patient And Or Family M [facility], [address] [place], [address], [place] tel: [phone] [facility] Adjustment disorder with mixed anxiety and depressed mood Sep-0 2 Fredrick Suzette. [address] [place], [id number], [place]. tel:[phone] [facility], [address] [place], [address], [place] tel:[phone] [facility] Blepharitis of upper eyelids of both eyes, unspecified typeSevere myopia, rightMyopia, leftAstigmati sm of both eyes, unspecified typePresbyopi a Sep-0 2 Jose E Silva. [address] [place], [place], [id number], [place]. tel:[phone] Psychotherap y, 60 Min With Patient And Or Family M [facility], [address] [place], [address], [place] tel: [phone] [facility] Adjustment disorder with mixed anxiety and depressed mood 2 Fredrick Suzette. [address] [place], [id number], [place]. tel:[phone] Psychotherap y, 60 Min With Patient And Or Family M [facility], [address] [place], [address], [place] tel: [phone] [facility] depression (chief complaint) Adjustment disorder with mixed anxiety and depressed mood 2 Fredrick Suzette. [address] [place], [place], [id number], [place]. tel:[phone] [facility], [address] [place], [address], [place] tel: [phone] [facility] No Information 2 Management Case. [address] [place], [place], [id number], [place]. tel:[phone] [facility], [address] [place], [address], [place] tel: [phone] [facility] No Information 2 Management Case. [address] [place], [id number], [place]. tel:[phone] [facility], [address] [place], [address], [place] tel: [phone] [facility] No Information 2 Management Case. [address] [place], [place], [id number], [place]. tel:[phone] Psychotherap y, 30 Min With Patient And Or Family M [facility], [address] [place], [address], [place] tel:[phone] [facility] Adjustment disorder with mixed anxiety and depressed mood 2 Fredrick Suzette. [address] [place], [place], [id number], [place]. tel:[phone] LIMITED EXAM,ESTAB [facility]. [facility], [address] [place], [address], [place] [phone] [facility] recurrent vertigo's (chief complaint)Vag inal itching (chief complaint)HCM (chief complaint) Encounter for screening mammogram for cancer of breastHypothy roidism, unspecifiedPr ediabetesAdju stment disorder with mixed anxiety and depressed moodVaginal irritation 2 Nathan Lockwood. [address] [place], [id number], [place]. tel:[phone] Referring Provider: Mandie Evans, [address] [place] [address] [place], [address] . tel:[phone] Psychotherap y, 30 Min With Patient And Or Family M [facility], [address] [place], [address], [place] [phone] [facility] Adjustment disorder with mixed anxiety and depressed mood 2 Fredrick Bradford. [address] [place], [place], [id number], [place]. tel:[phone] INTERMED EXAM,[facility], [address] [place], [address], [place] [phone] [facility] Thyroid problems (chief complaint)Ear Pain (chief complaint)HCM (chief complaint) Immunization not carried out because of patient refusalEncntr screen for dis of the bld/bld-form org/immun mechnsmHypoth yroidism, unspecifiedEa r pain, bilateralBrea st cancer screening by mammogramAmbl yopia of left eyeImpacted cerumen, unspecified ear 2 Lon Parker. [address] [place], [place], [id number], [place]. tel:[phone] INTERMED EXAM,[facility], [address] [place], [address], [place] [phone] [facility] hypothyroidis m (chief complaint)med ication (chief complaint)Pre ventive exam (chief complaint)HCM (chief complaint)col on cancer screening (chief complaint) Encounter for screening for malignant neoplasm of colonGastroes ophageal reflux disease, unspecified whether esophagitis presentHypoth yroidism, unspecifiedMe casimiro impairmentAbn ormal glucoseH/O: varicose veinsStressEn counter for immunizationE ncounter for screening mammogram for cancer of breast 2 Loren Bhatti. [address], [id number], [place]. tel:[phone] [facility], [address] [place], [address], [place] tel:[phone] [facility] Contact w and exposure to oth viral communicable diseases 2 Jono Montez. [address] [place], [id number], [place]. tel:[phone] LIMITED EXAM,ESTAB PAT. [facility], [address] [place], [address], [place] tel:[phone] [facility] Dry eyes (chief complaint) Viral conjunctiviti sSore throat 2 Resident Internal Med. . INTERMED EXAM,ESTAB PAT [facility], [address] [place], [address], [place] tel:[phone] [facility] colon cancer screening (chief complaint)HCM (chief complaint)Rig ht upper quadrant (chief complaint)Dys uria (chief complaint) Body mass index (BMI) 29.0-29.9, adultEncounte r for screening for cancer of colonRoutine health maintenanceOt her abnormal findings in urineRight upper quadrant abdominal pain 1 Resident Internal Med. . [facility], [address] [place], [address], [place] tel:[phone] [facility] No Information 1 [facility]. [address] [place] [address], [address], [place]. tel:[phone] LIMITED EXAM,ESTAB PAT. [facility], [address] [place], [address], [place] tel:[phone] [facility] cough (chief complaint) Gastroesophag eal reflux disease, unspecified whether esophagitis presentCough 1 Resident Internal Med. . BRIEF EXAM, ESTAB PAT. [facility], [address] [place], [address], [place] tel:[phone] [facility] Cough (chief complaint) Cough 1 Sidra Hahn. [address] [place] [address], [id number], [place]. tel:[phone] INTERMED EXAM,ESTAB [facility], [address] [place], [address], [place] tel: [phone] [facility] Cough (chief complaint) CoughHypothyr oidism, unspecified 1 Resident MED/PED. . LIMITED EXAM,ESTAB PAT. [facility], [address] [place], [address], [place] tel:[phone] [facility] Cough 1 Resident MED/PED. . [facility], [address] [place], [address], [place] tel:[phone] [facility] Counseling, unspecified 0 Health Education. . LIMITED EXAM,ESTAB [facility]. [facility], [address] [place], [address], [place] tel: [phone] [facility] hypertension (chief complaint)Thy roid problems (chief complaint)hyp erlipidemia (chief complaint)col on cancer screening (chief complaint)HCM (chief complaint)All ergies (chief complaint) Encounter for screening for cancer of colonImmuniza tion not carried out because of patient refusalHypert ensionPrediab etesHypothyro idism, unspecifiedHy perlipidemia, unspecifiedNo dule of skin of head 0 0 Shannan Horowitz [facility] [place], [id number], [place]. tel:[phone] [facility], [address] [place] [address], [address], [place] tel: [phone] [facility] No Information 0 Shannan Dougherty. [address] [place], [id number], [place]. tel:[phone] MINIMAL EXAM,ESTAB PAT. [facility], [address] [place], [address], [place] tel: [phone] [facility] immunization (chief complaint) Encounter for immunization 0 Carpenter Foreman. . INTERMED EXAM,ESTAB PAT [facility], [address] [place] [address], [address], [place] tel: [phone] [facility] hypertension (chief complaint)Uri nary symptoms (chief complaint) HypertensionH ypothyroidism , unspecifiedHe althcare maintenancePr ediabetesHype rlipidemia, unspecifiedDy suriaOther specified counseling 0 Stephen Forbes. [address] [place], [id number], [place]. tel:[phone] LIMITED EXAM,ESTAB PAT. [facility], [address] [place] [address], [address], [place] tel: [phone] [facility] hypertension (chief complaint)Thy roid (chief complaint)lef t axillary pain (chief complaint) Breast pain, leftHypothyro idism, unspecifiedHy pertension 9 Shannan Dougherty. [address] [place], [id number], [place]. tel:[phone] [facility], [address] [place] [address], [address], [place] tel: [phone] [facility] No Information 9 Adelia Magy. [address] [place], [id number], [place]. tel:[phone] [facility], [address] [place], [address], [place] tel:[phone] [facility] Hypothyroidis m, unspecified 9 Adelia Bhatti. [address] [place], [place], [id number], [place]. tel:[phone] [facility], [address] [place], [address], [place] tel:[phone] [facility] Dental Encounter for dental exam and cleaning w abnormal findings 9 Annalise Gay. [address] [place], [place], [id number], [place]. tel:[phone] [facility], [address] [place], [address], [place] tel:[phone] [facility] Hypothyroidis m, unspecified 9 Shannan Dougherty. [address] [place], [place], [id number], [place]. tel:[phone] INTERMED EXAM,ESTAB PAT [facility], [address] [place], [address], [place] tel:[phone] [facility] hypertension (chief complaint)Thy roid problems (chief complaint)Mus culoskeletal pain (chief complaint) Encounter for screening for cancer of colonHypothyr oidism, unspecifiedPr ediabetesHype rtensionSciat ica of right side 9 Shannan Dougherty. [address] [place], [place], [id number], [place]. tel:[phone] [facility], [address] [place], [address], [place] tel:[phone] [facility] No Information 9 Shannan Dougherty. [address] [place], [place], [id number], [place]. tel:[phone] [facility], [address] [place], [address], [place] tel:[phone] [facility] Hypothyroidis m, unspecified 9 Sebas Cuevas. [address] [place], [place], [id number], [place]. tel:[phone] [facility], [address] [place], [address], [place] tel:[phone] [facility] Hypothyroidis m, unspecified 9 Shannan Dougherty. [address], [id number], [place]. tel:[phone] LIMITED EXAM,ESTAB PAT. [facility], [address] [place], [address], [place] tel:[phone] [facility] hypertension (chief complaint)hyp erlipidemia (chief complaint)col on cancer screening (chief complaint) Encounter for screening for cancer of colonHyperten sionHypothyro idism, unspecifiedPr ediabetesHist ory of uterine fibroidAt risk for dental problems 9 Shannan Dougherty. [address] [place], [place], [id number], [place]. tel:[phone] LIMITED EXAM,ESTAB PAT. [facility], [address] [place], [address], [place] tel: [phone] [facility] Follow up on lab test(s) (chief complaint)Col on Cancer Screening (chief complaint) Body mass index (BMI) 27.0-27.9, adultEncounte r for screening for cancer of colonHypothyr oidism, unspecifiedHy pertensionHis tory of uterine fibroid 8 Shannan Dougherty. [address] [place], [place], [id number], [place]. tel:[phone] [facility], [address] [place], [address], [place] tel: [phone] [facility] No Information 8 [facility]. [address] [place], [address], [place]. tel:[phone] LIMITED EXAM,ESTAB PAT. [facility], [address] [place], [address], US tel:[phone] 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 [address] [place], [place], [id number], [place]. tel:[phone] INTERMED EXAM,ESTAB PAT [facility], [address] [place], [address], [place] tel:[phone] [facility] back pain (chief complaint)see standing orders (chief complaint) HypertensionH ypothyroidism , unspecifiedHy perlipidemia, unspecifiedCe rvical massOther abnormal findings in urineEncounte r for screening for cancer of colonAcute right-sided thoracic back pain 8 Stephen Forbes. [address] [place], [place], [id number], [place]. tel:[phone] LIMITED EXAM,ESTAB PAT. [facility], [address] [place], [address], [place] tel:[phone] [facility] Sore throat (chief complaint) Acute pharyngitis, unspecifiedHy pertensionHyp othyroidism, unspecifiedHy perlipidemia, unspecified Jul-0 8 Resident Internal Med. . LIMITED EXAM,ESTAB PAT. [facility], [address] [place], [address], [place] tel:[phone] [facility] Follow up on lab test(s) (chief complaint) Cervical mass 8 Adelia Bhatti. [address] [facility] [place], [id number], [place]. tel:[phone] LIMITED EXAM,ESTAB PAT. [facility], [address] [place], [address], [place] tel:[phone] [facility] preventive exam (chief complaint)Fol low up on lab test(s) (chief complaint) Post-menopaus al bleeding 7 Adelia Bhatti. [address] [place], [place], [id number], [place]. tel:[phone] LIMITED EXAM,ESTAB PAT. [facility], [address] [place], [address], [place] tel:[phone] [facility] hematuria (chief complaint)HCM (chief complaint) Post-menopaus al bleedingOther abnormal findings in urineAllergic rhinitis, unspecified allergic rhinitis trigger, unspecified rhinitis seasonalityHy pertensionHyp othyroidism, unspecified 7 Nathan Lockwood. [address] [place], [id number], [place]. [phone] LIMITED EXAM,ESTAB PAT. [facility], [address] [place], [address], [place] tel:[phone] [facility] Thyroid problems (chief complaint)hyp ertension (chief complaint)hyp erlipidemia (chief complaint)Med refills (chief complaint) HypertensionH ypothyroidism , unspecifiedHy perlipidemia, unspecifiedAl lergic rhinitis, unspecified allergic rhinitis trigger, unspecified rhinitis seasonalityPr ediabetes 7 Campbell Ladonna. [address] [place], [place], [id number], [place]. tel:[phone] LIMITED EXAM,ESTAB PAT. [facility], [address] [place], [address], [place] tel:[phone] [facility] Cough (chief complaint) Viral upper respiratory tract infection Sidra Hahn. [address] [place] [address], [id number], [place]. tel:[phone] LIMITED EXAM,ESTAB PAT. [facility], [address] [place], [address], [place] tel:[phone] [facility] Burning on urination (chief complaint) DysuriaHyperl ipidemia, unspecifiedHy pothyroidism, unspecifiedHy pertension 0 7 [facility] Leidy. Lor [facility] [place], [id number], [place]. tel:[phone] LIMITED EXAM,ESTAB PAT. [facility], [address] [place] [address], [address], [place] tel: [phone] [facility] hypertension (chief complaint)hyp erlipidemia (chief complaint)hyp othyroidism (chief complaint)All ergies (chief complaint)Diz ziness (chief complaint)dep ressed mood (chief complaint) Healthcare maintenanceEs sential (primary) hypertensionH yperlipidemia , unspecifiedAl lergic rhinitis, unspecified allergic rhinitis trigger, unspecified rhinitis seasonalityHy pothyroidism, unspecifiedAd justment disorder with depressed mood 7 Resident Internal Med. . LIMITED EXAM,ESTAB PAT. [facility], [address] [place], [address], [place] tel: [phone] [facility] F/U TSH (chief complaint) Essential (primary) hypertensionH ypothyroidism , unspecifiedHe althcare maintenance 7 Resident Internal Med. . LIMITED EXAM,ESTAB PAT. [facility], [address] [place] [address], [address], [place] tel: [phone] [facility] depression (chief complaint)Thy roid problems (chief complaint)All ergies (chief complaint) Hypothyroidis m, unspecifiedAl lergic rhinitisPredi abetesHyperli pidemia, unspecifiedDe ntal cariesEssenti al (primary) hypertension 7 [facility] . LIMITED EXAM,ESTAB [facility]. [facility], [address] [place] [address], [address], [place] tel: [phone] [facility] Cough (chief complaint)Dep ression (chief complaint) Essential (primary) hypertensionA llergic rhinitis, unspecified allergic rhinitis trigger, unspecified rhinitis seasonalityPr ediabetesBere avementHypoth yroidism, unspecifiedHe althcare maintenance 7 [facility] . [facility], [address] [place], [address], [place] tel: [phone] [facility] No Information 7 [facility]. [address] [place], [address], [place]. tel:[phone] INTERMED EXAM,ESTAB PAT [facility], [address] [place], [address], [place] tel:[phone] [facility] Cough (chief complaint) Allergic rhinitisEssen tial (primary) hypertensionH ypothyroidism , unspecifiedIm paired fasting glucoseEncoun ter for screening for cancer of colonOverweig htHyperlipide stuart, unspecifiedVi ral URIOther viral agents as the cause of diseases classified elsewhereHeal [facility] maintenance 7 [facility] . [facility], [address] [place], [address], [place] tel: [phone] [facility] No Information 7 [facility]. [address] [place], [address], [place]. tel:[phone] [facility], [address] [place], [address], [place] tel: [phone] [facility] No Information 6 [facility]. [address] [place], [address], [place]. [phone] LIMITED EXAM,ESTAB PAT. [facility], [address] [place], [address], [place] tel:[phone] [facility] hypertension (chief complaint)RX (chief complaint)TB Assesment (chief complaint) Hypothyroidis m, unspecifiedEs sential (primary) hypertensionA llergic rhinitis 6 Shannan Dougherty. [address] [place], [place], [id number], [place]. tel:[phone] LIMITED EXAM,ESTAB PAT. [facility], [address] [place], [address], [place] tel: [phone] [facility] Musculoskelet al pain (chief complaint)hyp ertension (chief complaint)Med refills (chief complaint) Impingement syndrome of left shoulderHypot hyroidism, unspecifiedIm paired fasting glucose 6 Shannan Jordan [address] [place], [id number], [place]. tel:[phone] LIMITED EXAM,ESTAB PAT. [facility], [address] [place], [address], [place] tel:[phone] 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 tel:[phone] [facility], [address] [place], [address], [place] tel: [phone] [facility] No Information 5 Shannan Horowitz [place], [id number], [place]. [phone] INTERMED EXAM,ESTAB PAT [facility], [address] [place], [address], [place] tel: [phone] [facility] hypertension (chief complaint)Thy roid problems (chief complaint)All ergies (chief complaint)Wan ts flu shot (chief complaint) Encntr screen for dis of the bld/bld-form org/immun mechnsmEssent ial (primary) hypertensionH ypothyroidism , unspecifiedEn counter for screening mammogram for cancer of breastEncount er for screening for cancer of colonImpaired fasting glucose 5 Shannan [place]owitz [place], [id number], [place]. tel:[phone] [facility], [address] [place], [address], [place] tel: [phone] [facility] No Information 5 Shannan Dougherty. [address] [place], [place], [id number], [place]. tel:[phone] [facility], [address] [place], [address], [place] tel: [phone] [facility] No Information 0 5 [facility]. [address] [place], [address], [place]. tel:[phone] LIMITED EXAM,ESTAB PAT. [facility], [address] [place], [address], [place] tel: [phone] [facility] Hypothyroidis m (chief complaint)hyp ertension (chief complaint)All ergies (chief complaint) No Information 5 [facility] . [facility], [address] [place], [address], [place] tel: [phone] [facility] Hypothyroidis m 5 Adelia Bhatti. [address] [place], [place], [id number], [place]. tel:[phone] LIMITED EXAM,ESTAB PAT. [facility], [address] [place], [address], [place] tel: [phone] [facility] hypertension (chief complaint)Hyp othyroidism (chief complaint) Hypertension, BenignHypothy roidismOther and unspecified hyperlipidemi aIMPAIRED FASTING GLUCOSE 4 Shannan Dougherty. [address] [place], [place], [id number], [place]. tel:[phone] [facility], [address] [place], [address], [place] tel: [phone] [facility] hypertension (chief complaint)Thy roid problems (chief complaint) No Information Sep-3 0-201 4 [facility] . [facility], [address] [place] [address], [address], [place] tel:[phone] [facility] No Information Sep-2 -201 4 No Information LIMITED EXAM,ESTAB PAT. [facility], [address] [place], [address], [place] tel:[phone] [facility] hypertension (chief complaint)hyp othyroidism (chief complaint)war ts (chief complaint) Viral warts, unspecifiedHy pothyroidismH ypertension, Benign Nov- 4 Shannan Jordan [address], [id number], [place]. tel:[phone] LIMITED EXAM,ESTAB PAT. [facility], [address] [place], [address], [place] tel:[phone] [facility] warts (chief complaint) Viral warts, unspecifiedHy pertension, Benign 4 Shannan Jordan [address], [id number], [place]. tel:[phone] LIMITED EXAM,ESTAB PAT. [facility], [address] [place], [address], [place] tel:[phone] [facility] thyroid problems (chief complaint)med refills (chief complaint)fol low up on lab test(s) (chief complaint) Hypertension, BenignHypothy roidismViral warts, unspecified Albert- 4 Shannan Jordan [address], [place], [place], [id number], [place]. tel:[phone] LIMITED EXAM,ESTAB PAT. [facility], [address] [place] [address], [address], [place] tel:[phone] [facility] thyroid problems (chief complaint)all ergies (chief complaint) Hypothyroidis m 4 Shannan Jordan [address], [id number], [place]. tel:[phone] LIMITED EXAM,ESTAB PAT. [facility], [address] [place], [address], [place] tel:[phone] [facility] thyroid problems (chief complaint) OverweightHyp othyroidismIM PAIRED FASTING GLUCOSEHypert ension, BenignOther and unspecified hyperlipidemi a 3 Shannan Dougherty. [address] [place], [place], [id number], [place]. tel:[phone] [facility], [address] [place], [address], [place] tel: [phone] [facility] No Information 3 [facility]. [address] [place], [address], [place]. tel:[phone] [facility], [address] [place], [address], [place] tel:[phone] [facility] No Information 2 [facility]. [address] [place], [address], [place]. tel:[phone] INTERMED EXAM,ESTAB PAT [facility], [address] [place], [address], [place] tel: [phone] [facility] No Information 2 No Information LIMITED EXAM,ESTAB PAT. [facility], [address] [place], [address], [place] tel: [phone] [facility] No Information 1 [facility] . LIMITED EXAM,ESTAB PAT. [facility], [address] [place], [address], [place] tel:[phone] [facility] No Information 1 [facility] . LIMITED EXAM,ESTAB PAT. [facility], [address] [place], [address], [place] tel: [phone] [facility] No Information 1 [facility] . LIMITED EXAM,ESTAB PAT. [facility], [address] [place], [address], [place] tel:[phone] [facility] No Information 1 [facility] . [facility], [address] [place], [address], [place] tel:[phone] [facility] No Information -200 0 No Information [...] administered Note: Imported from [facility]. [facility] Injected by: AUSTEN BOB MA. ; Source: Source Unspecified Influenza administered Note: Imported from [facility]. From Provider: [facility] Injected by: DOMINGA GOMEZ MA. ; Source: Source Unspecified Influenza administered Note: Imported from [facility]. From Provider: [facility]. Injected by: ADELAIDA CHIANG RN. ; Source: Source Unspecified Tdap administered Note: Imported from [facility]. [facility] Injected by: Sulema Stearns MA. ; Source: Source Unspecified Influenza administered Note: Imported from [facility]. From Provider: [facility] Injected by: Nicol Gomez MA. ; Source: Source Unspecified Novel [id number], all formulations administered Note: Imported from [facility]. From Provider: [facility] Injected by: Nicol Gomez MA. ; Source: Source Unspecified Novel [id number], all formulations administered Note: Imported from [facility]. From Provider: [facility] Injected by: Nicol Gomez MA. ; Source: Source Unspecified Payers Payer name Insurance type Covered republican ID Authoriza tion(s) Medicare PPS [id number] BS Promise Medicare Secondary CI [id number] Medicare PPS [id number] BS Promise Medicare Secondary CI [id number] HCLA BS Promise Medi-[place]leen [place] [id number] Medi[employer] Managed Care Interim Rate [id number] HCLA BS Promise Medi-Arleen [place] [id number] HCLA LA Care Medi-Arleen CI [id number] MediCal Managed Care Interim Rate [id number] Social History Type Description Quantity Date Captured Comments Sex Female Smoking Status No Information Sexual Orientation Straight or heterosexual Gender Identity Female Chief Complaint And Reason For Visit No Information Reason For Referral Reason For Referral No Information Plan Of Treatment Date Type Action Status Goal Zoster vaccine ( 2nd). Due on due Goal FIT. Due on due Goal TB Risk Assessment. Due on due Goal Lipid panel. Due on 029 due Goal PPD (TST). Due on due Goal Domestic Violenc e Screen. Due on due Goal Mammogram. Due on due Goal Tdap due Goal Alcohol Screening. [...] due Goal CT-Colonography. Due on due Goal Mammogram. Due on due Goal Tdap due Goal IGRA. Due on due Goal Alcohol Screening. Due on due Goal TB Risk Assessment. Due on due Goal Depression Scree jg. [...] CT-Colonography. Due on due Goal Zoster vaccine (1st) due Goal Alcohol Screening. Due on due Goal TB Risk Assessment. Due on A due Goal Tdap due Goal CT-Colonography. Due on due Goal [...] 4 due Goal Alcohol Screening. Due on due Goal Dental exam. Due on due Goal Dental exam. Due on due Goal FIT-DNA. Due on due Goal Depression Scree jg. Due on due Goal Zoster vaccine ( 2nd). Due on due Goal TB Risk Assessment. Due on A due Goal Lipid panel. Due on due Goal Colonoscopy. Due on 023 due Goal Zoster vaccine (1st) due Goal DEXA Scan. Due on due Goal PPD (TST). Due on due Goal Mammogram. Due on [address]-Colonography[address] Due on due Goal Td vaccine. Due on due Goal Alcohol Screening. Due on due Goal Tdap due Goal Domestic Violenc e Screen. Due on due Goal IGRA. Due on due Goal Dental exam. Due on due Goal CT-Colonography. Due on due Goal TB Risk Assessment. Due on A due Goal Alcohol Screening. Due on due Goal Depression Scree jg. Due on due Goal Zoster vaccine ( 2nd). Due on due Goal Colonoscopy. Due on [...] Lifestyle education regardin g diet completed Goal TB Risk Assessment. Due on A due Goal Dental exam. Due on 023 due Goal Zoster vaccine (1st) due Goal Alcohol Screening. Due on Oc due Goal Zoster vaccine ( ). Due on due Goal DEXA Scan. Due [...] Oc due Goal Dental exam. Due on 023 [...] Tdap due Goal PPD (TST). Due on 2 due Goal TB Risk Assessment. Due on [...] Goal Td vaccine. Due on due Goal Dental exam. Due on due Goal Depression Scree jg. Due on due Goal Td vaccine. Due on due Goal Alcohol Screening. Due on Oc due Goal IGRA. Due on due Goal PPD (TST). Due on due Goal TB Risk Assessment. Due on A due Goal Zoster vaccine (1st) due Goal Tdap due Goal Domestic Violenc [...] Dental exam. Due on 022 due Goal Domestic Violenc e Screen. Due on due Goal Tdap due Goal IGRA. Due on due Goal Td vaccine. Due on due Goal PPD (TST). Due on due Goal Zoster vaccine ( 2nd). Due on due Goal TB Risk Assessment. Due on A due Goal DEXA Scan. Due on due [...] Scan. Due on due Goal Zoster vaccine (1st) [...] vaccine ( ). Due on due Goal Zoster vaccine (1st) [...] Goal DEXA Scan. Due on due Goal DEXA Scan. Due [...] Alcohol Screening. Due on Oc due Goal Depression Scree jg. Due on due Goal Tdap due Goal Depression Scree jg. Due on due Goal DEXA Scan. Due on due Goal Dental exam. Due on due Goal Zoster vaccine ( ). Due on due Goal Domestic Violenc e Screen. Due on due Goal TB Risk Assessment. Due on A due Goal Zoster vaccine () due Goal Alcohol Screening. Due on Oc due Goal IGRA. Due on due Goal FIT. Due on due Goal Td vaccine. Due on due Goal PPD (TST). Due on due Goal Lipid panel. Due on due Goal Dental exam. Due on due Goal Alcohol Screening. Due on Oc due Goal FIT. Due on due Goal Lipid panel. Due on due Goal Zoster vaccine ( ). Due on due Goal IGRA. Due on [...] panel. Due on due Goal Zoster vaccine ( [...] Scan. Due on due Goal Zoster vaccine (1st) [...] Alcohol Screening. Due on Oc due Goal Tdap due Goal DEXA Scan. Due on due [...] FIT. Due on due Goal Zoster vaccine (1st) [...] Risk Assessment. Due on A due Goal DEXA Scan. Due on due Goal Lipid panel. Due on due Goal Alcohol Screening. Due on Oc due Goal Domestic Violenc e Screen. Due on due Goal IGRA. Due on due Goal Depression Scree jg. Due on due Goal Dental exam. Due on due Goal Td vaccine. Due on due Goal Dental exam. Due on due Goal Zoster vaccine ( 2nd). Due on due Goal FIT. Due on due Goal IGRA. Due on due Goal PPD (TST). Due on 2 due Goal Depression Scree jg. Due on due Goal Alcohol Screening. Due on Oc due Goal DEXA Scan. Due on due Goal Domestic Violenc e Screen. Due on due Goal TB Risk Assessment. Due on A due Goal Td vaccine. Due on due Goal Lipid panel. Due on 027 due Goal Tdap due Goal Zoster vaccine () due Goal Colonoscopy. Due on 011 due Goal Td vaccine. Due on due Goal Depression Scree jg. Due on due Goal Tdap due Goal IGRA. Due on due Goal CT-Colonography. Due on due Goal TB Risk Assessment. Due on A due Goal FIT-DNA. Due on due Goal Alcohol Screening. Due on Oc due Goal Zoster vaccine ( ). Due on due Goal PPD (TST). Due on due Goal DEXA Scan. Due on due Goal Zoster vaccine () due Goal Dental exam. Due on 022 due Goal Domestic Violenc e Screen. Due on due Goal Lipid panel. Due on [address]-Colonography. Due on due Goal TB Risk Assessment. Due on A due Goal Depression Scree jg. Due on due Goal Tdap due Goal Td vaccine. Due on due Goal Mammogram. Due on due Goal Zoster vaccine ( 2nd). Due on due Goal Lipid panel. Due on 025 due Goal DEXA Scan. Due on due Goal IGRA. Due on due Goal FIT-DNA. Due on due Goal PPD (TST). Due on due Goal Alcohol Screening. Due on due Goal Zoster vaccine (1st) due Goal Dental exam. Due on 022 due Goal Domestic Violenc e Screen. Due on due Goal Colonoscopy. Due on 011 due Goal Domestic Violenc e Screen. Due on due Goal Mammogram. Due on due Goal PPD (TST). Due on due Goal CT-Colonography. Due on due Goal Zoster vaccine ( 2nd). Due on due Goal TB Risk Assessment. Due on A due Goal Depression Scree jg. Due on due Goal IGRA. Due on due Goal Td vaccine. Due on 22 due Goal FIT-DNA. Due on due Goal DEXA Scan. Due on 2 due Goal Lipid panel. Due on 025 due Goal Tdap due Goal Colonoscopy. Due on 011 due Goal Dental exam. Due on 022 due Goal Alcohol Screening. Due on due Goal Zoster vaccine (1st) due Goal FIT-DNA. Due on due Goal Depression Scree jg. Due on due Goal DEXA Scan. Due on due Goal CT-Colonography. Due on due Goal Mammogram. Due on 2 due Goal Tdap due Goal Zoster vaccine ( 2nd). Due on due Goal Colonoscopy. Due on 011 due Goal PPD (TST). Due on due Goal Dental exam. Due on 021 due Goal Alcohol Screening. Due on due Goal Zoster vaccine (1st) due Goal IGRA. Due on due Goal Td vaccine. Due on 21 due Goal Domestic Violenc e Screen. Due on due Goal Lipid panel. Due on 025 due Goal TB Risk Assessment. Due on A due Goal Lifestyle education regardin g diet completed Goal Depression Scree jg. Due on due Goal IGRA. Due on due Goal Lipid panel. Due on 025 due Goal TB Risk Assessment. Due on A due Goal FIT. Due on due Goal CT-Colonography. Due on due Goal FIT-DNA. Due on due Goal Td vaccine. Due on due Goal Domestic Violenc e Screen. Due on due Goal Dental exam. Due on due Goal Pneumococcal vac cine. Due on due Goal PPD (TST). Due on due Goal Colonoscopy. Due on 011 due Goal Mammogram. Due on due Goal Alcohol Screening. Due on due Goal DEXA Scan. Due on due Goal Tdap due Goal Zoster vaccine (1st) due Goal Zoster vaccine ( 2nd). Due on due Goal Depression Scree gj. Due on due Goal Lipid panel. Due on 025 due Goal Mammogram. Due on due Goal CT-Colonography. Due on due Goal Domestic Violenc e Screen. Due on due Goal Pneumococcal vac cine. Due on due Goal Zoster vaccine ( 2nd). Due on due Goal Td vaccine. Due on due Goal DEXA Scan. Due on due Goal Alcohol Screening. Due on due Goal FIT-DNA. Due on due Goal PPD (TST). Due on due Goal FIT. Due on due Goal Tdap due Goal Zoster vaccine (1st) due Goal IGRA. Due on due Goal Dental exam. Due on 021 due Goal TB Risk Assessment. Due on A due Goal Colonoscopy. Due on 011 due [...] Dental exam. Due on 021 due Goal DEXA Scan. Due on due Goal Lipid panel. Due on 025 due Goal Depression Scree jg. Due on due Goal Zoster vaccine (1st) due Goal Pneumococcal vac cine. Due on due Goal FIT. Due on due Goal Colonoscopy. Due on 011 due Goal TB Risk Assessment. Due on A due Goal IGRA. Due on due Goal DEXA Scan. Due on due Goal Colonoscopy. Due on [address]-Colonography. Due on due Goal Lipid panel. Due on 025 due Goal Pneumococcal vac cine. Due on due Goal Zoster vaccine (1st) due Goal Depression Scree jg. Due on due Goal PPD (TST). Due on due Goal Domestic Violenc e Screen. Due on due Goal TB Risk Assessment. Due on due Goal FIT. Due on due Goal Alcohol Screening. Due on due Goal FIT-DNA. Due on due Goal Mammogram. Due on 2 due Goal Dental exam. Due on 021 due Goal Td vaccine. Due on 21 due Goal Zoster vaccine ( 2nd). Due on due Goal Tdap due Goal PAP. Due on due Goal Zoster vaccine ( 2nd). Due on due Goal Zoster vaccine (1st) due Goal PPD (TST). Due on 0 due Goal Alcohol Screening. Due on due Goal Tdap due Goal Lipid panel. Due on 025 due Goal Pap/HPV testing. Due on due Goal Dental exam. Due on 020 due Goal Colonoscopy. Due on 011 due Goal TB Risk Assessment. Due on due Goal HPV. Due on due Goal DEXA Scan. Due on 0 due Goal Td vaccine. Due on 20 due Goal FIT. Due on due Goal IGRA. Due on due Goal Domestic Violenc e Screen. Due on due Goal FIT-DNA. Due on due Goal CT-Colonography. Due on due Goal Depression Scree jg. Due on due Goal Pneumococcal vac cine. Due on due Goal Mammogram. Due on 2 due Goal Dental exam. Due on [address]-Colonography. Due on due Goal FIT. Due on due Goal FIT-DNA. Due on due Goal HPV. Due on due Goal Alcohol Screening. Due on due Goal Colonoscopy. Due on 011 due Goal IGRA. Due on due Goal Mammogram. Due on 2 due Goal Pap/HPV testing. Due on due Goal Lipid panel. Due on 025 due Goal Domestic Violenc e Screen. Due on due Goal Zoster vaccine (1st) due Goal Depression Scree jg. Due on due Goal Zoster vaccine ( 2nd). Due on due Goal PPD (TST). Due on 0 due Goal PAP. Due on due Goal Tdap due Goal Td vaccine. Due on 20 due Goal TB Risk Assessment. Due on due Goal Pneumococcal vac cine. Due on due Goal DEXA Scan. Due on 0 due Goal Zoster vaccine ( 2nd). Due on due Goal Domestic Violenc e Screen. Due on due Goal Alcohol Screening. Due on due Goal Pneumococcal vac cine. Due on due Goal TB Risk Assessment. Due on due Goal HPV. Due on due Goal IGRA. Due on due Goal Zoster vaccine (1st) due Goal DEXA Scan. Due on 0 due Goal FIT. Due on due Goal Colonoscopy. Due on 011 due Goal Td vaccine. Due on due Goal CT-Colonography. Due on due Goal Depression Scree jg. Due on due Goal Pap/HPV testing. Due on due Goal FIT-DNA. Due on due Goal Lipid panel. Due on 025 due Goal Dental exam. Due on due Goal PPD (TST). Due on 0 due Goal Mammogram. Due on 2 due Goal Alcohol Screening. Due on due [...] Goal Colonoscopy. Due on 011 due Goal Lipid panel. Due on due Goal Pneumococcal vac cine. Due on due Goal DEXA Scan. Due on 0 due Goal TB Risk Assessment. Due on [...] vaccine ( ). Due on due Goal Dental exam. Due on due Goal TB Risk Assessment. Due on A due Goal Domestic Violenc e Screen. Due on due Goal Depression Scree jg. Due on due Goal Colonoscopy. Due on due Goal IGRA. Due on due Goal Alcohol Screening. Due on due Goal Pap/HPV testing. Due on due Goal Lipid panel. Due on due Goal Zoster vaccine ( 1st). Due on due Goal PPD (TST). Due on 9 due Goal Colonoscopy. Due on due Goal Pap/HPV testing. Due on due Goal TB Risk Assessment. Due on A due Goal Domestic Violenc e Screen. Due on due Goal IGRA. Due on due Goal Alcohol Screening. Due on due Goal Depression Scree jg. Due on due Goal Dental exam. Due on due Goal Mammogram. Due on 9 due Goal Zoster vaccine ( 1st). Due on due Goal Lipid panel. Due on due Goal PPD (TST). Due on 9 due Goal Domestic Violenc e Screen. Due on due Goal Colonoscopy. Due on due Goal Alcohol Screening. Due on No due Goal TB Risk Assessment. Due on A due Goal Zoster vaccine ( ). Due on due Goal Pap/HPV testing. Due on due Goal Dental exam. Due on due Goal Lipid panel. Due on due Goal Depression Scree jg. Due on due Goal IGRA. Due on due Goal Mammogram. Due on due Goal PPD (TST). Due on due Goal Pap/HPV testing. Due on due Goal PPD (TST). Due on due Goal Alcohol Screening. Due on No due Goal Depression Scree jg. Due on due Goal TB Risk Assessment. Due on A due Goal Lipid panel. Due on due Goal IGRA. Due on due Goal Colonoscopy. Due on due Goal Domestic Violenc e Screen. Due on due Goal Zoster vaccine ( ). Due on due Goal Mammogram. Due on [...] due Goal Mammogram. Due on due Goal Domestic Violenc e Screen. Due on due Goal Dental exam. Due on due Goal Alcohol Screening. Due on due Goal IGRA. Due on due Goal Pap/HPV testing. Due on due Goal TB Risk Assessment. Due on due Goal Lifestyle education regardin g diet completed Goal Pap/HPV testing. Due on due Goal Colonoscopy. Due on due Goal Alcohol Screening. Due on due Goal Domestic Violenc e Screen. Due on due Goal PPD (TST). Due on 8 due Goal Dental exam. Due on due [...] Goal Colonoscopy. Due on 011 due Goal IGRA. Due on due Goal [...] PPD (TST). Due on 8 due Goal Dental exam. Due on 018 due Goal Alcohol Screening. Due on Ap due Goal TB Risk Assessment. Due on O due Goal Depression Scree jg. Due on due Goal Depression Scree jg. [...] O due Goal Dental exam. Due on 018 due Goal PPD (TST). Due on 8 due Goal Alcohol Screening. Due on due Goal Pap/HPV testing. Due on due Goal IGRA. Due on due Goal Domestic Violenc e Screen. Due on due Goal Dental exam. Due on 018 due Goal Depression Scree jg. Due on due Goal Mammogram. Due on 9 due Goal Colonoscopy. Due on 011 due Goal TB Risk Assessment. Due on O due Goal PPD (TST). Due on 7 due Goal Mammogram. Due on 9 due Goal Pap/HPV testing. Due on due Goal IGRA. Due on due Goal Domestic Violenc e Screen. Due on due Goal Dental exam. Due on 017 due Goal Alcohol Screening. Due on Ap due Goal TB Risk Assessment. Due on O due Goal Depression Scree jg. Due on due Goal Colonoscopy. Due on 011 due Goal Depression Scree jg. Due on due Goal PPD (TST). Due on 7 due Goal Colonoscopy. Due on 011 due Goal TB Risk Assessment. Due on O due Goal Alcohol Screening. Due on Ap due Goal Dental exam. Due on 017 due Goal Domestic Violenc e Screen. Due on due Goal IGRA. Due on due Goal Pap/HPV testing. Due on due Goal Mammogram. Due on 9 due Goal PPD (TST). Due on 7 due Goal Colonoscopy. Due on 011 due Goal Pap/HPV testing. Due on due Goal IGRA. Due on due Goal Mammogram. Due on 9 due Goal Domestic Violenc e Screen. Due on due Goal Depression Scree jg. Due on due Goal Dental exam. Due on 017 due Goal TB Risk Assessment. Due on O due Goal Alcohol Screening. Due on Ap due Goal Mammogram. Due on 9 due Goal PPD (TST). 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 (related to Low vision, both eyes) ordered Referral Ordered: referred to outside dental referrals poor dentition (related to Dental caries) ordered Referral Ordered: referred to [facility] [employer] Body [employer] (related to Essential (primary) hypertension) ordered Referral Ordered: referred to [facility] check up (related to Essential (primary) hypertension) ordered Appointment Celia Hay BOOKED Future Order: Lab Order INSURE O NE IFOBT ([id number]), Appointment on: , Sent on: Sent Future Order: Lab Order InSure O NE IFOBT ([id number]), Sent on: Sent History Of Present Illness [...] pain and itchy. Patient reports no discharge. [facility] please sent flu shot to [facility] pharmacy offered pt TDAP, PCV-13 and Shingrix pt declines todayMammo-pt is due please order referral depression This is an initi al visit. Vaginal itching [facility] pt requesting la bs for TSH recurrent vertigo's Thyroid problems Risk factors in clude female and history of hypothyroidism. Additional information: Hypothyroidism medication refill. [facility] 1. Mammogram ref erral Ear Pain (comments) [...] ordered. medication Pt needs medicat ion refills [facility] Pt due for Tdap & Zoster vaccine, [...] far away. Saw an eye doctor in [place] and wants to go to another appt [...] refill of her thyroid medication. Dry eyes [facility] Pt would like to discuss Tdap Vaccine, [...] include fever. Additional information: vaccinated. went to [facility] 3[place]4 months ago. has omeprazole has not [...] weeks ago when she was returnng from [place], negative. Cough [facility] Med refillsDue f or Tdap, shingrix and [id number] vaccines. Pt declines all today. colon cancer screening Prior scr eening: fecal occult blood testing. Denies risk factors. There are no associated symptoms. Additional information: No family history of colon cancer. 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 Was seen at [facility] per patient on 03/08/2017-03/09/2017 . patient does not recall actual date. Went in Had noticed drops of bloodin her underwear. O'Brien that it was in her urine. States [...] has to urinate and quintanilla to urinate. Dizziness Additional infor mation: Associated with sinus congestion, present x1 week, 1-2 per day. Occ positional. hyperlipidemia Risk factors inc lude age over 50. The patient is adhering to medication and follow-up for their hyperlipidemia. hypothyroidism The symptoms beg an 8 years ago. Stable dose of synthroid for several years. Denies anxiety, tremor, palpitations, no fatigue, no constipation, diarrhea. 9 lbs weight loss since visit in June 2016, patient states intentional w/ diet changes hypertension Additional infor mation: No new complaints Allergies The patient pres ents with post nasal drainage and sneezing. Symptoms are mild. Additional information: Seasonal, usually onset in December. Ran out of fluticasone spray 2 weeks ago. No F/C/myalgias. depressed mood Since irma ssed away 6 mo ago from cancer. Support from children, including daughter she lives.Reports continued interest/pleasure in music, internet. Denies difficulty sleeping, appetite. No suicidal ideation/homicidal ideation. F/U TSH Ms. Horne is a 61F [...] TB Asses ment, patient was born in [facility], patient states she did receive [...] Coreg 6.25 BID Related to H ypertension Cont lifestyle modif ications On atorva 40 qhs Related to Prediabetes Last pap: 2015 with normal results. Was 62 at last check and no longer doing them as she was near 64 with no abnormal Hx paps. Last mammogram: 2021 with BiRADS-1. Repeat ordered Last FIT: 05/2023 with negative results Last DEXA/bone scan: Due and ordered Lung cancer screen (>50 yo with >20 y smoking Hx): N.A. Related to Healthcare maintenance - Referral to vascul ar surgery placed at prior visit and pending scheduling - Cont compression socks Related to Symptomatic varicose veins of both lower extremities Last labs much improvedCont stat in Related to Hyperlipidemia, unspecified Repeated labs today Cont levothyroxine Related to Hypothyroidism, unspecified Seeing dentistry Related to Treasure al decay Check on referral an d [...] twice weekly Related to Essential (primary) hypertension Repeated labs today Refilled levothyroxine Related to Hypothyroidism, unspecified Refilled statin Related to Hyper lipidemia, unspecified - referral to vascul ar surgery placed at prior visit and pending scheduling - cont compression socks Related to Symptomatic varicose veins of both lower extremities Last pap: 2015 with normal results -> was 62-63 at that timeLast mammogram: 2021 with BiRADS-1 -> ordered Last FIT: 2021 with normal results -> ordered Last DEXA/bone scan: Due -> ordered Lung cancer screen (>50 yo with >20 y smoking Hx): N.A. Vaccines: Infulenza today. Declines others. Completed PSV20 today at prior visit Related to Healthcare maintenance refilled levothyroxine Related t o Hypothyroidism, unspecified refilled statin Related to Hyper lipidemia, unspecified - health educator co nsulted today -- provided pt w BP cuff and education on how to use BP cuff- advised pt to check BP daily and record on log for 2 weeks- follow up in 1 month in clinic to recheck BP and consider increasing mtp dose Related to Essential (primary) hypertension - referral to vascul ar surgery placed- start wearing compression socks daily - provided in clinic today by health educator Related to Symptomatic varicose veins of both lower extremities - Cetirizine- Dry eye, eye drop Related to Seasonal allergies - Cont atova- repeat lipids Rela jessie to Hyperlipidemia, unspecified - Cont metop Related to Hyper tension - Cont synthroid- Repeat TSH Rel ated to Hypothyroidism, unspecified - Due for Td, zoster - [...] unspecified whether esophagitis present COVID negative revie wedwili try omeprazoleper pt dry cough, on and [...] cancer of colon release of records Dr Vogel Re lategrecia to Cervical mass Return FIT test kit to the clini c Related to Encounter for screening for cancer of colon send records from ER visit with referral ([facility]) Related to Post-menopausal bleeding send EMB results wit h referral as well. Related to Post-menopausal bleeding Culture and urinalys is sent to R/O hematuria/infection. Related to Other abnormal findings in urine Stable with anti-his tamine and flonase. Related to Allergic rhinitis, unspecified allergic rhinitis trigger, unspecified rhinitis seasonality Slightly above goalC ont current medicationLow sodium diet and exercise reviewed. Related to Hypertension Clinically euthyroid. Related to Hypothyroidism, unspecified Return to clinic if symptoms wor sen [...] to Adjustment disorder with depressed mood - Up-to-date. Related to Healt hcare maintenance - Continue Synthroid 100mcg eyad y. Related to Hypothyroidism, unspecified - Refilled atenolol 25mg daily today. Related [...] in 06/2015 Related to Healthcare maintenance - Refill flonase Related to Diallo rgic rhinitis - FIT testing Related to Encou nter for screening for cancer of colon - Check A1c today Related to Imp aired fasting glucose - TSH today- Refille d synthroid today, 100mcg daily Related to Hypothyroidism, unspecified - Refill lipitor 40m g daily- Fasting [...]
== END 2024-05-17 13:55 | disposition home or self-care (01) ==
PROVIDERS: PCP Internal Medicine; Visit Provider Nurse Practitioner Psychiatric/Mental Health
DX: F11.20 Opioid dependence, uncomplicated (principal)
CPT/HCPCS: 99213

== ENCOUNTER 2024-06-25 13:04 | Outpatient (AMB) | payer OTHER, SELFPAY ==
--- NOTE | 2024-06-25 13:06 | A.OFFVIS_ITS ---
Vital Signs 06/25/24 13:08 Height 4 ft 11 in Weight 202 lb 13.204 oz BMI 41.0 BP 136/70 Blood Pressure Location Rt brachial Position Sitting Pulse 95 Pulse Source Pulse Oximeter Pulse Oximetry (%) 94 Oxygen Delivery Method Room Air Intake Visit Reasons: Obstructive sleep apnea Allergies Penicillins [PENICILLINS] Allergy (Intermediate, Verified 05/16/24 13:24) RASH HPI Comments Details: The patient is a 69-year-old woman with known history of asthma in addition to severe uticaria. the patient and follow closely by Dermatology. Seems to respond very well to prednisone. She tried and failed CellCept and currently is tolerating the Dupixent. However, she has worsening respiratory symptoms. She has been having chest tightness and wheezing. She does have a rescue inhaler that she uses often with partial resolution of symptoms. In addition to the the prednisone hopes of breathing. During the office visit with primary care doctor she did complaint of the symptoms she did have a chest x-ray demonstrating no acute disease. 02/01/2022 the patient is here for a pulmonary follow-up visit. Overall she c ontinues to do well from a respiratory status. Ever since she started Dupixent injections for her significant a topic dermatitis her asthma is improved dramatically as well. She has not had to use any prednisone. She continues to take the Breo daily. She has not had to use any rescue medicine. Patient has been complaining of back pain. She does follow-up pain clinic. She has not had a formal chest x-ray. Will go ahead and request imaging studies at this time. She is also having significant sciatica like symptoms. She has been on multiple pain medications without any significant relief. She will be following up with her primary care doctor soon. I did recommend she can not take a small course of prednisone to see if this alleviates her level of inflammation. Patient still has issues with daytime drowsiness. Her Hillside score is 8/24. Partly is more because she wakes up multiple times because of interstitial cystitis then it is from sleep apnea. The patient would like to hold off on any PAP therapy at this time. She is going to continue to work on positional therapy. 06/25/2024 the patient is here for a pulmonary follow-up visit. She is feeling better now. The patient also was taken Dupixent for her eczema and atopic dermatitis. Although she is now off it since she has been stable from the asthma standpoint, but, develop worsening pruritic rash. She is going to be monitoring closely. The patient also has been continue to use positional therapy. Denies any daytime drowsiness. Hillside score is around 6. therefore no additional testing necessary at this time. She also is complaining of right upper quadrant pain while eating. She is concerned becuase her sister was recently diagnosed with stage 4 liver cancer. [facility] Medical History (Updated 06/25/24 @ 21:07 by Ren Romero MD) Abdominal pain Depression Anxiety Insomnia Myalgia, upper arm Osteoarthritis of right knee Lumbar spondylosis Foot pain, bilateral BRIDGETTE (obstructive sleep apnea) Asthma KAMILA positive Urticaria Obesity (BMI 30-39.9) Vitamin D deficiency Chronic interstitial cystitis Irritable bowel syndrome (IBS) Arthralgia Osteoarthritis Esophageal stricture GERD (gastroesophageal reflux disease) Left lumbar radiculopathy CAD (coronary artery disease) Pure hypercholesterolemia Benign essential hypertension Surgical History History of surgery History of total right knee replacement (09/22/21) Hx of cystoscopy Status post balloon dilatation of esophageal stricture (~2005) History of cardiac catheterization History of colonoscopy History of nephrolithotomy with removal of calculi History of tooth extraction Family History Father Hypertension Mother Hypertension Diabetes CVD (cardiovascular disease) Daughter No problems noted. Family/Other FH: mental illness Other Mental health problem Substance abuse Social History Housing: Apartment Are you a primary primary health care nurse to a significant other at home: No Do you presently have visiting nurse or other home services: No Alcohol intake: never Comment: medicated, see MAR Patient Tobacco Use Status: Never used Tobacco e-Cigarette/Vaping Use: Never Used Second Hand Smoke Exposure: No service: No Current occupational status: disabled Cognitive needs: No Hearing needs: No Vision needs: Yes Review of Systems Const Denies daytime sleepiness and Denies night sweats ENT Denies change in voice, Denies lip swelling, Denies mouth pain, Reports nasal congestion, Reports nasal discharge and Denies tongue swelling Card Denies chest pain Resp Reports cough and Reports wheezing GI Reports abdominal pain Musc Reports as per HPI, Reports back pain and Reports radiating pain into limb Skin/Breast Reports pruritus and Reports rash Neuro Denies Neuro-related abnormal movements Psych Denies no additional complaints Stanton/Lymph Denies easy bleeding and Denies lymphadenopathy Aller/Immun Denies lip swelling, Denies tongue swelling and Reports wheezing Physical Exam Vital Signs: Last Vital Signs Pulse 95 06/25/24 13:08 BP 136/70 06/25/24 13:08 Pulse Ox 94 06/25/24 13:08 Oxygen Delivery Method Room Air 06/25/24 13:08 BMI result Body Mass Index 41.0 Const General: alert Neck Neck: Yes normal visual inspection, Yes full ROM and Yes no lymphadenopathy Chest Chest palpation & inspection: normal inspection of the chest Resp Effort & Inspection: normal respiratory effort and prolonged expiratory phase Auscultation: no wheezes and diminished lung sounds Cardio Rate: regular rate Rhythm: regular rhythm Heart sounds: S1 normal heart sound present and S2 normal heart sound present GI Palpation (GI): Soft to palpation and nontender Auscultation: normal bowel sounds Skin General skin exam: rashes and/or lesions noted Assessment & Plan Assessment & Plan (1) Dyspnea: Code(s): R06.00 - Dyspnea, unspecified Category: Medical Qualifiers: Dyspnea type: shortness of breath Qualified Code(s): R06.02 - Shortness of breath (2) Asthma: Code(s): J45.909 - Unspecified asthma, uncomplicated Category: Medical Qualifiers: Asthma complication type: uncomplicated Asthma persistence: persistent Asthma severity: moderate Qualified Code(s): J45.40 - Moderate persistent asthma, uncomplicated (3) BRIDGETTE (obstructive sleep apnea): Code(s): G47.33 - Obstructive sleep apnea (adult) (pediatric) Category: Medical (4) Abdominal pain: Code(s): R10.9 - Unspecified abdominal pain Category: Medical Qualifiers: Abdominal location: right upper quadrant Qualified Code(s): R10.11 - Right upper quadrant pain Plan Advair HFA CARITO as needed stopped Dupixent which is mainly for her dermatitis, waiting and monitoring positional sleep therapy. No PSG at this time US Abdomen Follow-up 8-12 months Orders: Orders US abdomen complete Today R10.9 - Unspecified abdominal pain Medications: New crisaborole 2% 1 appl topical DAILY 60 grams 6RF Coding Level of Care Code Est Pt Level 4 (70226) Diagnoses Shortness of breath R06.02 Dyspnea type: shortness of breath Moderate persistent asthma without complication J45.40 Asthma complication type: uncomplicated Asthma persistence: persistent Asthma severity: moderate BRIDGETTE (obstructive sleep apnea) G47.33 Right upper quadrant abdominal pain R10.11 Abdominal location: right upper quadrant Time Spent (min) 16
[2024-06-25 13:08] VITALS: BP 136/70; PULSE 95; O2SAT 94; BMI 41.0
--- OUTSIDE RECORDS SUMMARY | 2024-06-25 14:42 | XMS_ITS | Data Portability ---
Author Organization [email or web address] Address [address] [place] [id number] Assessment Encounter Date Assessment Date Assessment LastModified [...] Orders prednisone 20 mg tablet 2023 024 [id number], [address] [place], [address], 18:26:49 Patient TargetsNo targets recorded. Patient InstructionsNo instructions recorded. Reason for Referral None Reported. Medical Equipment None Reported. Allergies Allergen ID Allergen Name Allergen Category Reaction Reaction Severity Criticality Documentation Date Start Date Code Code System Note Provider Name and Address Organization Details Recorded Time 8417 Product containin g penicilli n (product) medicatio n Not available Not available Not available 02/14/2024 86796 8001 SNOMED Not Available [employer] - [employer] 03:44:38 8489 aspirin medicatio n Not available Not available Not available 02/14/2024 1191 RxNorm Not Available [employer] - production 03:44:38 Medications Name Sig Start Date Stop [...] Available No t Available omeprazole 40 mg capsule,laberto yed release TOME 1 C PSULA POR [...] % 142 mm[Hg] 74 mm[Hg] Not Available [employer] - production 4 18:02:15 Social History None recorded. Functional Status None recorded. Mental Status None recorded. Family History Nothing Reported. Medical History No medical history recorded. Gynecological HistoryNo gynecological history recorded. Obstetrics History GPAL:G 0 P 0 0 0 0 Past Encounters Encounter ID Performer Location Encounter Start Date Encounter Closed Date Diagnosis/Indication Diagnosis SNOMED-CT Code Diagnosis ICD10 Code Diagnosis Note [id number] Efrain Gomez MD [address] [phone] 05/19/2023 18:01:49 05/20/2023 11:31:35 Exacerbation of intermittent asthma 943663278 J45.21 Health Concerns Section Related Observation LastModified by Organization Detai ls LastModified Time None Recorded Concern Status LastModified by Organization Details LastModified Time None Recorded Advance Directives Directive None Recorded Payers Encounter Date Sequence Insurance Name Policy Number Policy Davidson Covered Member ID Davidson Member ID Guarantor Name 05/19/2023 1 [facility] - DOS ON OR AFTER 2022 - DUAL ELIGIBLE - [facility] OPTIONS AND ONE [employer] (MEDICARE REPLACEMENT/ADV ANTAGE - HMO) Celia Kaitlin [id number] Celia Phillips Kaitlin Notes Date Note Type Note Provider Name [...] cough, sore throat, fever. Member called her sexton helper, and she cannot be seen until June. [...] ................... ................... ................... ................... ................... ................... ........ Flakeboard Line Tender Note From Yuri Bedolla: Encountered patient conscious, [...] performed, both resulted negative; results relayed to [facility]. Skin warm, dry and of appropriate color for ethnicity. Head and neck, free of trauma and edema. ? JVD. Breath sounds diminished in all hopper and exhibit faint expiratory wheezes in the apexes bilaterally. Abdomen soft, non-tender and non-distended. extremities, free of trauma and edema. [facility] contacted: Duoneb treatment administered. 12 lead EKG performed: sinus rhythm with septal T-wave inversion noted. 30 mg of PO prednisone administered. [facility] to write prescription for further treatment at [...] would also like to remain at home. Flakeboard Line Tender Allergies: Penicillin, Aspirin ................... ................... ................... ................... ................... ................... ................... ........ Disposition: Fulfilled Efrain Gomez MD [address] [facility],[address] [facility], [place], [address], [employer] [facility] 05/19/2023 19:03:41 OBGyn Episode No OBEpisode recorded.
--- OUTSIDE RECORDS SUMMARY | 2024-06-25 14:42 | XMS_ITS | Continuity of Care Document ---
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 Name Role Phone Resident MD, Internal Med Unavailable Unavai lable Allergies, Adverse Reactions, Alerts Substance Reaction Status Criticality No Known Allergies Active No Inform ation Medications Medication Instructions Dosage Effective Dates (start - stop) Status Comments tjyezvoi-wgehunkkq-d ydrocort 3.5 mg/mL-10,000 unit/mL-1 % ear solution instill 4 drop by otic route 3 times every day into affected ear(s) 4.00 drop - Active Claritin Liqui-Gel 10 mg capsule take 1 pill by oral route every day 1 pill - Active famotidine 20 mg tablet take 1 tablet by mouth twice a day for GASTRITIS OR GERD - Active levothyroxine 75 mcg tablet take 1 tablet by mouth once daily for THYROID - Active guaifenesin ER 600 mg tablet, extended release 12 hr take 1 tablet by oral route every 12 hours as needed as needed for COUGH 600 MG - Active ATORVASTATIN 40 MG TABLET take 1 tablet by mouth once daily - Active CARVEDILOL 6.25 MG TABLET take 1 tablet by mouth twice a day with food - Active Boostrix Tdap 2.5 Lf unit-8 mcg-5 Lf/0.5 mL intramuscular suspension inject 0.5 milliliter by intramuscular route once - Active Dry Eye Relief 1 %-0.2 %-0.2 % drops for dry eye up to four times daily - Active FLUTICASONE PROP 50 MCG SPRAY instill 2 spray into each nostril once daily - Active Cipro HC 0.2 %-1 % ear drops,suspension instill 3 drop by otic route every 12 hours into affected ear(s) 3.00 drop - No Longer Active amoxicillin 500 mg capsule take 2 capsule by oral route every 12 hours 1000 MG - No Longer Active GEORGIAN LEVOTHYROXINE 75 MCG TABLET take 1 tablet by mouth once daily for THYROID - No Longer Active FAMOTIDINE 20 MG TABLET take 1 tablet by mouth twice a day for GASTRITIS OR GERD - No Longer Active Claritin Liqui-Gel 10 mg capsule take 1 pill by oral route every day 1 pill - No Longer Active Procedures Procedure Date LIMITED EXAM,ESTAB PAT. ACEs Screening Negative Score Of 0-3 Apr LIMITED EXAM,ESTAB PAT. EAR IRRIGATION INTERMED EXAM,ESTAB PAT LIMITED EXAM,ESTAB [...] With Patient And O r Family M LIBRARY ASSISTANT - WALK IN [facility] Psychotherapy, 30 Min With Patient And O r Family M LIBRARY ASSISTANT - WALK IN [facility] Non-Billable Phone Consultation Psychotherapy, 30 Min With Patient And O r Family M LIBRARY ASSISTANT - WALK IN [facility] Psychotherapy, 45 Min With Patient And [...] With Patient And O r Family M LIBRARY ASSISTANT - WALK IN [facility] VENIPUNCTURE LIMITED EXAM,ESTAB PAT. Psychotherapy, 30 Min With Patient And O r Family M LIBRARY ASSISTANT - WALK IN [facility] HEMOGLOBIN (HGB) INTERMED EXAM,ESTAB PAT EAR [...] Diagnoses Date Provider Providers Copied on Encounter LIMITED EXAM,ESTAB PAT. [facility], [address] [place] [address], [address], [place] tel:[phone] [facility] HPI (chief complaint) Acute otitis externa of right ear, unspecified typeAcute coughAcute tonsillitis, unspecified etiologyHyper tensionHypoth yroidism, unspecifiedHy perlipidemia, unspecifiedSy mptomatic varicose veins of both lower extremitiesDe ntal decayPrediabe tesHealthcare maintenance 5 Resident Internal Med. . LIMITED EXAM,ESTAB PAT. [facility], [address] [place] [address], [address], [place] tel:[phone] [facility] Cough (chief complaint)MOSES (chief complaint)hpi (chief complaint) Encounter for screening, unspecifiedAc wales otitis externa of right ear, unspecified typeAcute coughAcute tonsillitis, unspecified etiology 5 Enrico Saravia. [address], [place], [place], [id number], [place]. tel:[phone] [facility], [address] [place] [address], [address], [place] tel: [phone] [facility] No Information 5 Noe Lopez. [address] [place], [place], [id number], [place]. tel:[phone] [facility], [address] [place], [address], [place] tel:[phone] [facility] No Information 4 Noe Lopez. [address] [place], [id number], [place]. tel:[phone] [facility], [address] [place], [address], [place] tel: [phone] [facility] No Information 4 Noe Lopez. [address] [place], [place], [place], [id number], [place]. tel:[phone] [facility], [address] [place], [address], [place] tel: [phone] [facility] No Information 4 Noe Lopez. [address] [place], [id number], [place]. tel:[phone] INTERMED EXAM,ESTAB PAT [facility], [address] [place] [address], [address], [place] tel: [phone] [facility] hypertension (chief complaint)hcm (chief complaint)HPI (chief complaint) HypertensionH ypothyroidism , unspecifiedHy perlipidemia, unspecifiedSy mptomatic varicose veins of both lower extremitiesDe ntal decayPrediabe tesHealthcare maintenanceAl lergic rhinitisImpac jessie cerumen, unspecified earAcute otitis externa of right ear, unspecified type 4 Resident Internal Med. . [facility], [address] [place] [address], [address], [place] tel:[phone] [facility] No Information 4 Jaquelin Lorenzo. [address] [place], [id number], [place]. tel:[phone] LIMITED EXAM,ESTAB PAT. [facility], [address] [place] [address], [address], [place] tel: [phone] [facility] HTN F/u (chief complaint) Body mass index [BMI] 28.0-28.9, adultHyperten sara 4 Resident Internal Med. . INTERMED EXAM,[facility], [address] [place] [address], [address], tel:[phone] [facility] hypertension (chief complaint)thy roid (chief complaint)HCM (chief complaint)hpi (chief complaint) Hypothyroidis m, unspecifiedHy perlipidemia, unspecifiedEs sential (primary) hypertensionS ymptomatic varicose veins of both lower extremitiesHe althcare maintenanceBr east screeningOste oporosis screeningEnco unter for immunizationD ental decayPrediabe lui 4 Resident Internal Med. . [facility], [address] [place] [address], [address], tel:[phone] [facility] Counseling, unspecified 3 Health Education. . [facility], [address] [place] [address], [address], tel:[phone] [facility] Counseling, unspecified 3 Health Education. . INTERMED EXAM,[facility], [address] [place] [address], [address], [place] tel:[phone] [facility] varicose veins (chief complaint) Symptomatic varicose veins of both lower extremitiesEs sential (primary) hypertensionH yperlipidemia , unspecifiedHy pothyroidism, unspecified 3 Resident Internal Med. . INTERMED EXAM, [facility], [address] [place] [address], [address], [place] tel:[phone] [facility] hypertension (chief complaint)hyp erlipidemia (chief complaint)Thy roid problems (chief complaint) Healthcare maintenanceHy pothyroidism, unspecifiedHy perlipidemia, unspecifiedHy pertensionBod y mass index [BMI] 28.0-28.9, adultImmuniza tion not carried out because of patient refusalEncoun ter for immunizationS easonal allergies 3 Resident Internal Med. . [facility], [address] [place], [address], [place] [phone] [facility] No Information 3 [facility]. [address] [place], [address], [place]. tel:[phone] Psychotherap y, 30 Min With Patient And Or Family M [facility], [address] [place], [address], [place] [phone] [facility] Adjustment disorder with mixed anxiety and depressed mood 3 [facility]. [address] [place], [place], [id number], [place]. tel:[phone] Psychotherap y, 30 Min With Patient And Or Family M [facility], [address] [place], [address], [place] tel:[phone] [facility] Adjustment disorder with mixed anxiety and depressed mood 3 [facility]. [address] [place], [place], [id number], [place]. tel:[phone] [facility], [address] [place], [address], [place] tel:[phone] [facility] No Information 2 Management Case. [address] [place], [place], [id number], [place]. tel:[phone] Psychotherap y, 30 Min With Patient And Or Family M [facility], [address] [place], [address], [place] tel:[phone] [facility] Adjustment disorder with anxiety 2 [facility]. [address], [place], [id number], [place]. tel:[phone] Psychotherap y, 45 Min With Patient And Or Family M [facility], [address] [place], [address], [place] tel: [phone] [facility] Adjustment disorder with mixed anxiety and depressed mood Jan- 2 [facility]. [address], [place], [id number], [place]. tel:[phone] Psychotherap y, 45 Min With Patient And Or Family M [facility], [address] [place], [address], [place] tel: [phone] [facility] Adjustment disorder with mixed anxiety and depressed mood Jan- 2 [facility]. [address] [place], [id number], [place]. tel:[phone] INTERMED EXAM,ESTAB [facility], [address] [place], [address], [place] tel: [phone] [facility] Eye problems (chief complaint)Hyp othyroidism (chief complaint)HCM (chief complaint) Immunization not carried out because of patient refusalHypoth yroidism, unspecifiedBl epharitis of upper eyelids of both eyes, unspecified typeHypertens ionHyperlipid emia, unspecifiedAl lergic conjunctiviti s, bilateralPain of right eyeEncounter for immunization Jan- 2 Resident MED/PED. . Psychotherap y, 60 Min With Patient And Or Family M [facility], [address] [place], [address], [place] tel: [phone] [facility] Adjustment disorder with mixed anxiety and depressed mood Jan- 2 [facility]. [address] [place], [id number], [place]. tel:[phone] Psychotherap y, 60 Min With Patient And Or Family M [facility], [address] [place], [address], [place] tel: [phone] [facility] Adjustment disorder with mixed anxiety and depressed mood Oct- 2 [facility]. [address] [place], [id number], [place]. tel:[phone] Psychotherap y, 60 Min With Patient And Or Family M [facility], [address] [place], [address], [place] tel: [phone] [facility] Adjustment disorder with mixed anxiety and depressed mood Sep-3 0 2 Fredrick Suzette. [address] [place], [place], [id number], [place]. tel:[phone] Psychotherap y, 45 Min With Patient And Or Family M [facility], [address] [place], [address], [place] tel: [phone] [facility] Adjustment disorder with mixed anxiety and depressed mood Sep-2 2 Fredrick Suzette. [address] [place], [id number], [place]. tel:[phone] Psychotherap y, 60 Min With Patient And Or Family M [facility], [address] [place], [address], [place] tel: [phone] [facility] Adjustment disorder with mixed anxiety and depressed mood Sep-1 2 Fredrick Suzette. [address] [place], [id number], [place]. tel:[phone] Psychotherap y, 60 Min With Patient And Or Family M [facility], [address] [place], [address], [place] tel: [phone] [facility] Adjustment disorder with mixed anxiety and depressed mood Sep-0 2 Fredrick Suzette. [address] [place], [id number], [place]. tel:[phone] [facility], [address] [place], [address], [place] tel: [phone] [facility] Blepharitis of upper eyelids of both eyes, unspecified typeSevere myopia, rightMyopia, leftAstigmati sm of both eyes, unspecified typePresbyopi a Sep-0 2 Jose E Silva. [address] [place], [place], [id number], [place]. tel:[phone] Psychotherap y, 60 Min With Patient And Or Family M [facility], [address] [place], [address], [place] tel:[phone] [facility] Adjustment disorder with mixed anxiety and depressed mood Sep-0 2 Fredrick Suzette. [address] [place], [place], [id number], [place]. tel:[phone] Psychotherap y, 60 Min With Patient And Or Family M [facility], [address] [place], [address], [place] tel: [phone] [facility] depression (chief complaint) Adjustment disorder with mixed anxiety and depressed mood Nov- 2 Fredrick Suzette. [address] [place], [place], [id number], [place]. tel:[phone] [facility], [address] [place], [address], [place] tel: [phone] [facility] No Information Nov- 2 Management Case. [address] [place], [place], [id number], [place]. tel:[phone] [facility], [address] [place], [address], [place] tel:[phone] [facility] No Information 2 Management Case. [address] [place], [place], [id number], [place]. tel:[phone] [facility], [address] [place], [address], [place] tel:[phone] [facility] No Information 2 Management Case. [address] [place], [place], [id number], [place]. tel:[phone] Psychotherap y, 30 Min With Patient And Or Family M [facility], [address] [place], [address], [place] tel:[phone] [facility] Adjustment disorder with mixed anxiety and depressed mood Nov- 2 Fredrick Suzette. [address] [place], [place], [id number], [place]. tel:[phone] LIMITED EXAM,[facility]. [facility], [address] [place], [address], [place] [phone] [facility] recurrent vertigo's (chief complaint)Vag inal itching (chief complaint)HCM (chief complaint) Encounter for screening mammogram for cancer of breastHypothy roidism, unspecifiedPr ediabetesAdju stment disorder with mixed anxiety and depressed moodVaginal irritation 2 Nathan Lockwood. [address] [place], [id number], [place]. tel:[phone] Referring Provider: Mandie Evans, [address] [place] [address] [place], [address] . tel:[phone] Psychotherap y, 30 Min With Patient And Or Family M [facility], [address] [place], [address], [place] [phone] [facility] Adjustment disorder with mixed anxiety and depressed mood 2 Fredrick Bradford. [address], [place], [id number], [place]. tel:[phone] INTERMED EXAM,[facility], [address] [place], [address], [place] tel:[phone] [facility] Thyroid problems (chief complaint)Ear Pain (chief complaint)HCM (chief complaint) Immunization not carried out because of patient refusalEncntr screen for dis of the bld/bld-form org/immun mechnsmHypoth yroidism, unspecifiedEa r pain, bilateralBrea st cancer screening by mammogramAmbl yopia of left eyeImpacted cerumen, unspecified ear 2 Lon Parker. [address] [place], [id number], [place]. tel:[phone] INTERMED EXAM,[facility], [address] [place], [address], [place] tel:[phone] [facility] hypothyroidis m (chief complaint)med ication (chief complaint)Pre ventive exam (chief complaint)HCM (chief complaint)col on cancer screening (chief complaint) Encounter for screening for malignant neoplasm of colonGastroes ophageal reflux disease, unspecified whether esophagitis presentHypoth yroidism, unspecifiedMe casimiro impairmentAbn ormal glucoseH/O: varicose veinsStressEn counter for immunizationE ncounter for screening mammogram for cancer of breast 2 Loren Bhatti. [address], [id number], [place]. [phone] [facility], [address] [place], [address], [place] tel:[phone] [facility] Contact w and exposure to oth viral communicable diseases 2 Jono Montez. [address] [place], [id number], [place]. [phone] LIMITED EXAM,ESTAB PAT. [facility], [address] [place], [address], [place] tel:[phone] [facility] Dry eyes (chief complaint) Viral conjunctiviti sSore throat 2 Resident Internal Med. . INTERMED EXAM,ESTAB PAT [facility], [address] [place], [address], [place] tel:[phone] [facility] colon cancer screening (chief complaint)HCM (chief complaint)Rig ht upper quadrant (chief complaint)Dys uria (chief complaint) Body mass index (BMI) 29.0-29.9, adultEncounte r for screening for cancer of colonRoutine health maintenanceOt her abnormal findings in urineRight upper quadrant abdominal pain Dec-0 1 Resident Internal Med. . [facility], [address] [place], [address], [place] tel:[phone] [facility] No Information 1 [facility]. [address] [place], [address], [place]. tel:[phone] LIMITED EXAM,ESTAB [facility]. [facility], [address] [place], [address], [place] tel:[phone] [facility] cough (chief complaint) Gastroesophag eal reflux disease, unspecified whether esophagitis presentCough 1 Resident Internal Med. . BRIEF EXAM, ESTAB [facility]. [facility], [address] [place], [address], [place] tel:[phone] [facility] Cough (chief complaint) Cough 1 Sidra Hahn. [address] [place] [address], [id number], . tel:[phone] INTERMED EXAM,[facility], [address] [place], [address], [place] tel: [phone] [facility] Cough (chief complaint) CoughHypothyr oidism, unspecified 1 Resident MED/PED. . LIMITED EXAM,[facility]. [facility], [address] [place], [address], [place] tel: [phone] [facility] Cough 1 Resident MED/PED. . [facility], [address] [place] [address], [address], [place] tel: [phone] [facility] Counseling, unspecified 0 Health Education. . LIMITED EXAM,ESTAB [facility]. [facility], [address] [place], [address], [place] tel: [phone] [facility] hypertension (chief complaint)Thy roid problems (chief complaint)hyp erlipidemia (chief complaint)col on cancer screening (chief complaint)HCM (chief complaint)All ergies (chief complaint) Encounter for screening for cancer of colonImmuniza tion not carried out because of patient refusalHypert ensionPrediab etesHypothyro idism, unspecifiedHy perlipidemia, unspecifiedNo dule of skin of head 0 Shannan Dougherty. [address], [id number], [place]. tel:[phone] [facility], [address] [place] [address], [address], [place] tel: [phone] [facility] No Information 0 Sahnnan Dougherty. [address] [place], [place], [id number], [place]. tel:[phone] MINIMAL EXAM,ESTAB PAT. 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 . INTERMED EXAM,ESTAB PAT [facility], [address] [place] [address], [address], [place] tel: [phone] [facility] hypertension (chief complaint)Uri nary symptoms (chief complaint) HypertensionH ypothyroidism , unspecifiedHe althcare maintenancePr ediabetesHype rlipidemia, unspecifiedDy suriaOther specified counseling 0 Stephen Forbes. [address] [place], [id number], [place]. tel:[phone] LIMITED EXAM,ESTAB PAT. [facility], [address] [place] [address], [address], [place] tel: [phone] [facility] hypertension (chief complaint)Thy roid (chief complaint)lef t axillary pain (chief complaint) Breast pain, leftHypothyro idism, unspecifiedHy pertension 9 Shannan Dougherty. [address], [id number], [place]. tel:[phone] [facility], [address] [place] [address], [address], [place] tel: [phone] [facility] No Information 9 Lamp Magy. [address] [place], [id number], [place]. tel:[phone] [facility], [address] [place], [address], [place] tel:[phone] [facility] Hypothyroidis m, unspecified 9 Adelia Bhatti. [address] [place], [id number], [place]. tel:[phone] [facility], [address] [place], [address], [place] tel: [phone] [facility] Dental Encounter for dental exam and cleaning w abnormal findings 9 Annalise GuanVictor Hugo. [address] [place], [id number], [place]. tel:[phone] [facility], [address] [place], [address], [place] tel: [phone] [facility] Hypothyroidis m, unspecified 9 Shannan Dougherty. [address] [place], [place], [id number], [place]. tel:[phone] INTERMED EXAM,ESTAB PAT [facility], [address] [place], [address], [place] tel: [phone] [facility] hypertension (chief complaint)Thy roid problems (chief complaint)Mus culoskeletal pain (chief complaint) Encounter for screening for cancer of colonHypothyr oidism, unspecifiedPr ediabetesHype rtensionSciat ica of right side 9 Campbell Ladonna. [address], [place], [id number], [place]. tel:[phone] [facility], [address] [place], [address], [place] tel: [phone] [facility] No Information 9 Shannan Dougherty. [address] [place], [place], [id number], [place]. tel:[phone] [facility], [address] [place], [address], [place] tel: [phone] [facility] Hypothyroidis m, unspecified 9 Mullen Faith. [address] [place], [id number], [place]. tel:[phone] [facility], [address] [place], [address], [place] tel: [phone] [facility] Hypothyroidis m, unspecified 9 Shannan Dougherty. [address], [id number], [place]. tel: [phone] LIMITED EXAM,ESTAB PAT. [facility], [address] [place], [address], [place] tel: [phone] [facility] hypertension (chief complaint)hyp erlipidemia (chief complaint)col on cancer screening (chief complaint) Encounter for screening for cancer of colonHyperten sionHypothyro idism, unspecifiedPr ediabetesHist ory of uterine fibroidAt risk for dental problems 9 Shannan Dougherty. [address] [place], [place], [id number], [place]. tel:[phone] LIMITED EXAM,ESTAB PAT. [facility], [address] [place], [address], [place] tel: [phone] [facility] Follow up on lab test(s) (chief complaint)Col on Cancer Screening (chief complaint) Body mass index (BMI) 27.0-27.9, adultEncounte r for screening for cancer of colonHypothyr oidism, unspecifiedHy pertensionHis tory of uterine fibroid 8 Shannan Dougherty. [address] [place], [place], [id number], [place]. tel:[phone] [facility], [address] [place], [address], [place] tel: [phone] [facility] No Information 8 [facility]. [address] [place] [address], [address], [place]. [phone] LIMITED EXAM,ESTAB PAT. 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 [address], [id number], [place]. [phone] INTERMED EXAM,ESTAB PAT [facility], [address] [place], [address], [place] tel:[phone] [facility] back pain (chief complaint)see standing orders (chief complaint) HypertensionH ypothyroidism , unspecifiedHy perlipidemia, unspecifiedCe rvical massOther abnormal findings in urineEncounte r for screening for cancer of colonAcute right-sided thoracic back pain 8 Stephen Forbes. [address] [place], [id number], [place]. [phone] LIMITED EXAM,ESTAB PAT. [facility], [address] [place], [address], [place] tel:[phone] [facility] Sore throat (chief complaint) Acute pharyngitis, unspecifiedHy pertensionHyp othyroidism, unspecifiedHy perlipidemia, unspecified Jul- 8 Resident Internal Med. . LIMITED EXAM,ESTAB PAT. [facility] [facility], [address] [place], [address], [place] tel:[phone] [facility] Follow up on lab test(s) (chief complaint) Cervical mass 8 Adelia Bhatti. [address] [place], [id number], [place]. [phone] LIMITED EXAM,ESTAB PAT. [facility], [address] [place], [address], [place] tel:[phone] [facility] preventive exam (chief complaint)Fol low up on lab test(s) (chief complaint) Post-menopaus al bleeding 7 Adelia Bhatti. [address] [place], [id number], [place]. tel:[phone] LIMITED EXAM,ESTAB PAT. [facility], [address] [place], [address], [place] tel: [phone] [facility] hematuria (chief complaint)HCM (chief complaint) Post-menopaus al bleedingOther abnormal findings in urineAllergic rhinitis, unspecified allergic rhinitis trigger, unspecified rhinitis seasonalityHy pertensionHyp othyroidism, unspecified 7 Nathan Lockwood. [address] [place], [id number], [place]. tel:[phone] LIMITED EXAM,ESTAB PAT. [facility], [address] [place], [address], [place] tel: [phone] [facility] Thyroid problems (chief complaint)hyp ertension (chief complaint)hyp erlipidemia (chief complaint)Med refills (chief complaint) HypertensionH ypothyroidism , unspecifiedHy perlipidemia, unspecifiedAl lergic rhinitis, unspecified allergic rhinitis trigger, unspecified rhinitis seasonalityPr ediabetes Shannan Dougherty. [address], [id number], [place]. tel:[phone] LIMITED EXAM,ESTAB PAT. [facility], [address] [place], [address], [place] tel: [phone] [facility] Cough (chief complaint) Viral upper respiratory tract infection Sidra Hahn. [address], [id number], [place]. tel:[phone] LIMITED EXAM,ESTAB PAT. [facility], [address] [place], [address], [place] tel:[phone] [facility] Burning on urination (chief complaint) DysuriaHyperl ipidemia, unspecifiedHy pothyroidism, unspecifiedHy pertension 7 Stephen Forbes. [address] [place] [address], [id number], [place]. tel:[phone] LIMITED EXAM,ESTAB PAT. [facility], [address] [place], [address], [place] tel: [phone] [facility] hypertension (chief complaint)hyp erlipidemia (chief complaint)hyp othyroidism (chief complaint)All ergies (chief complaint)Diz ziness (chief complaint)dep ressed mood (chief complaint) Healthcare maintenanceEs sential (primary) hypertensionH yperlipidemia , unspecifiedAl lergic rhinitis, unspecified allergic rhinitis trigger, unspecified rhinitis seasonalityHy pothyroidism, unspecifiedAd justment disorder with depressed mood 7 [facility] . LIMITED EXAM,ESTAB PAT. [facility], [address]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 at next visit Related to Acute otitis externa of right ear, unspecified type Amox x7 days Related to Acute tonsillitis, unspecified etiology Cont levothyroxine Related to Hy pothyroidism, unspecified Cont Coreg 6.25 BID. Increase as needed Related to Hypertension OTIC ABX. REEXAMIN AT F/U 05/21/24 Related to Acute otitis externa of right ear, unspecified type REST, WARM LIQUIDSER PRECAUTIONS . Related to Acute cough AMOX X 7 DAYS Related to Acute tonsillitis, unspecified etiology -Fluoroquinolone-hyd rocortisone ear drop BID Rx. 7-day course -Return precautions given (and return if symptoms persist or worsen beyond one week) Related to Acute otitis externa of right ear, unspecified type - On claritin- On eye drops Rela jessie to Allergic rhinitis Cont Coreg 6.25 BID Related to H ypertension Repeated labs today Cont levothyroxine Related to Hypothyroidism, unspecified Last pap: 2015 with normal results. Was [...] improvedCont stat in Related to Hyperlipidemia, unspecified Cont lifestyle modif ications On atorva 40 qhs Related to Prediabetes Seeing dentistry Related to [place] al decay Check on referral an d [...] referral placed Relate d to Dental decay Repeated labs today Refilled levothyroxine Related to Hypothyroidism, unspecified Refilled statin Related to Hyper lipidemia, unspecified - Metoprolol switche d to coreg 6.25 BID - health educator consuling at prior visits. Now has cuff- advised pt to check BP twice weekly Related to Essential (primary) hypertension Last pap: 2015 with normal results -> was 62-63 at that timeLast mammogram: 2021 with BiRADS-1 -> ordered Last FIT: 2021 with normal results -> ordered Last DEXA/bone scan: Due -> ordered Lung cancer screen (>50 yo with >20 y smoking Hx): N.A. Vaccines: Infulenza today. Declines others. Completed PSV20 today at prior visit Related to Healthcare maintenance - referral to vascul ar surgery placed at prior visit and pending scheduling - cont compression socks Related to Symptomatic varicose veins of both lower extremities refilled levothyroxine Related t o Hypothyroidism, unspecified [...] unspecified whether esophagitis present COVID negative revie wedwill try omeprazoleper pt dry cough, on and [...] phone discussing health concerns. Related to Cough Aug-09-2021 ER and return precautions Relate d to Cough Nov-30-2020 Pt to return fit test rolando Relat [...] of colon release of records Dr Lela Bond lated to Cervical mass Return FIT test kit [...] Healt hcare maintenance - Continue Synthroid 100mcg eyda y. Related to Hypothyroidism, unspecified - Refilled [...] alimentos fritos Related to Prediabetes 1. Refill qnasal today Related t o Allergic rhinitis 1. Repeat lipid pane l and check LFTs1. [place] Related to Hyperlipidemia, unspecified 1. Refill atenolol Related to Es sential (primary) hypertension 1. TSH today2. Retur n in 1 [...] flonase Related to Diallo rgic rhinitis - Check A1c today Related to Imp aired fasting glucose - FIT testing Related to Encou nter for screening for cancer of colon - TSH today- Refille d synthroid today, [...] tial (primary) hypertension Assessments Type Assessment Date assessment Acute otitis externa of right ea r, unspecified type impression CANNOT EXAMINE OVER PHONE AND AFFECTED BY FIRES. TX BASED ON SYMPTOMS. assessment Acute cough impression Tx along with possible acute vishal tis assessment Acute tonsillitis, unspecified e tiology impression PRESUMED BASED ON DESCRIPTION OF LEFT TONSIL ENLARGEMENT assessment Hypertension impression BP log with SBP primarily in the 110-130s assessment Hypothyroidism, unspecified impression Last TSH normal assessment Hyperlipidemia, unspecified assessment Symptomatic varicose veins of samantha th lower extremities impression Previously asymptoma tic varicose veins, now w pain L>R posterior legs. On exam, prominent varicose veins on L posterior leg. Pt endorses pain after being on her feet for a long time (ie. walking or exercising). assessment Dental decay assessment Prediabetes impression Last A1c at 5.8 -> 5.9Last lipid panel much improved assessment Healthcare maintenance 25 Patient Care Teams Name Effective Dates (sta rt - stop) Status Members RONAK Stuart - active Lily Hampton.Internal Med Resident.(Lead)
--- OUTSIDE RECORDS SUMMARY | 2024-06-25 14:43 | XMS_ITS | Clinical Summary ---
Author Organization [facility] Location Address [address] [place] [address] Phone Care Team Providers Care Bioprocess Development Engineer Name Role Phone Curt Falk MD Primary Care Provider [phone] Surgical History Surgery Date Site/Laterality Comments OTHER [...] drink = 0.6 oz pur e alcohol) Comments Unknown Sex and Gender Information Value Date Recorded Sex Assigned at Not on file Legal Sex Female 2:18 AM EST Gender Identity Not on file Sexual Orientation [...] Last Done Comments Breast Cancer Screening 1955 Pneumococcal Vaccine: 50+ Ye ars (1 of 1 - PCV) 2004 Zoster Vaccines (1 of 2) 2004 Cholesterol Screening (Lipid Panel) 03/21/2022 Colorectal Cancer [...] patient's age to complete this topic Meningococcal B Vacine Aged Out No lo nger eligible based on patient's age to complete this topic RSV Immunization Patients Un rodri 20 months Aged Out No longer eligible b ased on patient's age to complete this topic Varicella Vaccines Aged Out No longer eligible based on patient's age to complete this topic Care Teams Bioprocess Development Engineer Relationship Specialty Start Date End Date Curt Falk MD [address] [place] [address] Dr [address] WILLIAM Barrera PCP - General 07/16/21
== END 2024-06-25 13:25 | disposition home or self-care (01) ==
LOC: HO.HPS 13:05
PROVIDERS: PCP Internal Medicine; Visit Provider Hospitalist
DX: R06.02 Shortness of breath (principal); J45.40 Moderate persistent asthma, uncomplicated; G47.33 Obstructive sleep apnea (adult) (pediatric); R10.11 Right upper quadrant pain
CPT/HCPCS: 99214

== ENCOUNTER → 2024-06-25 13:04 | Outpatient (BNVA) | payer OTHER, SELFPAY | PROVIDERS: PCP Internal Medicine; Visit Provider Hospitalist | DX: J45.40 Moderate persistent asthma, uncomplicated (principal); R06.02 Shortness of breath; G47.33 Obstructive sleep apnea (adult) (pediatric); R10.11 Right upper quadrant pain | CPT/HCPCS: 99212 ==

== ENCOUNTER 2024-06-27 13:17 | Outpatient (AMB) | payer OTHER, MEDICAID, SELFPAY ==
--- NOTE | 2024-06-27 13:17 | MHC.AM.SUB ---
Intake Visit Reasons: MAT Tele Allergies Penicillins [PENICILLINS] Allergy (Intermediate, Verified 05/16/24 13:24) RASH HPI HPI MAT Tele: Details: Patient presents for follow up via telehealth Currently prescribed Belbuca 150mcg BID Tolerating current dose Denies any side effects Reports she was recently sick for several days and was concerned that Belbuca dose was not enough, but she has since improved. Saw psychiatrist and started taking ambien 5mg for sleep--feels that is helping as well Review of Systems Const Reports as per HPI and Reports no additional complaints Telehealth Telehealth Telehealth Platform: Telephone Location of provider rendering services: practice address Patient Identification confirmed using: Name, : Yes Telehealth method: voice only Patient verbally consented to treatment: Yes Patient verbally consented to billing insurance company: Yes Minutes spent on Phone/Video with Pt.: 15 [facility] Medical History (Updated 06/25/24 @ 21:07 by Ren Romero MD) Abdominal pain Depression Anxiety Insomnia Myalgia, upper arm Osteoarthritis of right knee Lumbar spondylosis Foot pain, bilateral BRIDGETTE (obstructive sleep apnea) Asthma KAMILA positive Urticaria Obesity (BMI 30-39.9) Vitamin D deficiency Chronic interstitial cystitis Irritable bowel syndrome (IBS) Arthralgia Osteoarthritis Esophageal stricture GERD (gastroesophageal reflux disease) Left lumbar radiculopathy CAD (coronary artery disease) Pure hypercholesterolemia Benign essential hypertension Surgical History History of surgery History of total right knee replacement (09/22/21) Hx of cystoscopy Status post balloon dilatation of esophageal stricture (~2005) History of cardiac catheterization History of colonoscopy History of nephrolithotomy with removal of calculi History of tooth extraction Family History Father Hypertension Mother Hypertension Diabetes CVD (cardiovascular disease) Daughter No problems noted. Family/Other FH: mental illness Other Mental health problem Substance abuse Social History Housing: Apartment Are you a primary dialysis patient care technician to a significant other at home: No Do you presently have visiting nurse or other home services: No Alcohol intake: never Comment: medicated, see MAR Patient Tobacco Use Status: Never used Tobacco e-Cigarette/Vaping Use: Never Used Second Hand Smoke Exposure: No service: No Current occupational status: disabled Cognitive needs: No Hearing needs: No Vision needs: Yes Assessment & Plan Assessment & Plan (1) Opioid dependence: Code(s): F11.20 - Opioid dependence, uncomplicated Category: Medical Plan: continue Belbuca at current dose follow up 2 months Medications: Refilled buprenorphine HCl (Belbuca) 150 mcg buccal Q12H 60 ea 1RF
--- OUTSIDE RECORDS SUMMARY | 2024-06-27 15:35 | XMS_ITS | Continuity of Care Document ---
Author Organization [facility] Address [address] [place] [address] Phone Care Team Providers Care Lining Mechanic Name Role Phone Resident MD, Internal Med Unavailable Unavai lable Allergies, Adverse Reactions, Alerts Substance Reaction Status Criticality No Known Allergies Active No Inform ation Medications Medication Instructions Dosage Effective Dates (start - stop) Status Comments gzlcrhxq-wjdpdiaiv-m ydrocort 3.5 mg/mL-10,000 unit/mL-1 % ear solution [...] hours 1000 MG - No Longer Active CYMRAES LEVOTHYROXINE 75 MCG TABLET take 1 tablet [...] With Patient And O r Family M LINING PRESSER - WALK IN [facility] PT Psychotherapy, 30 Min With Patient And O r Family M LINING PRESSER - WALK IN [facility] PT Non-Billable Phone Consultation Psychotherapy, 30 Min With Patient And O r Family M LINING PRESSER - WALK IN [facility] PT Psychotherapy, 45 Min With [...] With Patient And O r Family M LINING PRESSER - WALK IN [facility] PT VENIPUNCTURE LIMITED EXAM,ESTAB PAT. Psychotherapy, 30 Min With Patient And O r Family M LINING PRESSER - WALK IN [facility] PT HEMOGLOBIN (HGB) INTERMED EXAM,ESTAB [...] Providers Copied on Encounter LIMITED EXAM,ESTAB PAT. [facility], [address] [place] [address], [address], [place] tel:[phone] [facility] HPI (chief complaint) Acute otitis externa of right ear, unspecified typeAcute coughAcute tonsillitis, unspecified etiologyHyper tensionHypoth yroidism, unspecifiedHy perlipidemia, unspecifiedSy mptomatic varicose veins of both lower extremitiesDe ntal decayPrediabe tesHealthcare maintenance 5 Resident Internal Med. . LIMITED EXAM,ESTAB PAT. [facility], [address] [place] [address], [address], [place] tel:[phone] [facility] Cough (chief complaint)MOSES (chief complaint)hpi (chief complaint) Encounter for screening, unspecifiedAc [place] otitis externa of right ear, unspecified typeAcute coughAcute tonsillitis, unspecified etiology 5 Enrico Saravia. [address], [place], [place], [id number], [place]. tel:[phone] [facility], [address] [place] [address], [address], [place] tel: [phone] [facility] No Information 5 Noe Lopez. [address] [place], [place], [id number], [place]. tel:[phone] [facility], [address] [place], [address], [place] tel:[phone] [facility] No Information 4 Noe Lopez. [address] [place], [id number], [place]. tel:[phone] [facility], [address] [place], [address], [place] tel: [phone] [facility] No Information 4 Noe Lopez. [address], [place], [place], [id number], [place]. tel:[phone] [facility], [address] [place], [address], [place] tel: [phone] [facility] No Information 4 Noe Lopez. [address] [place], [id number], [place]. tel:[phone] INTERMED EXAM,ESTAB PAT [facility], [address] [place] [address], [address], [place] tel: [phone] [facility] hypertension (chief complaint)hcm (chief complaint)HPI (chief complaint) HypertensionH ypothyroidism , unspecifiedHy perlipidemia, unspecifiedSy mptomatic varicose veins of both lower extremitiesDe ntal decayPrediabe tesHealthcare maintenanceAl lergic rhinitisImpac jessie cerumen, unspecified earAcute otitis externa of right ear, unspecified type 4 Resident Internal Med. . [facility], [address] [place] [address], [address], [place] tel:[phone] [facility] No Information 4 Jaquelin Lorenzo. [address] [place], [id number], [place]. tel:[phone] LIMITED EXAM,ESTAB PAT. [facility], [address] [place] [address], [address], [place] tel: [phone] [facility] HTN F/u (chief complaint) Body mass index [BMI] 28.0-28.9, adultHyperten sara 4 Resident Internal Med. . INTERMED EXAM,[facility], [address] [place] [address], [address], tel:[phone] [facility] hypertension (chief complaint)thy roid (chief complaint)HCM (chief complaint)hpi (chief complaint) Hypothyroidis m, unspecifiedHy perlipidemia, unspecifiedEs sential (primary) hypertensionS ymptomatic varicose veins of both lower extremitiesHe althcare maintenanceBr east screeningOste oporosis screeningEnco unter for immunizationD ental decayPrediabe lui 4 Resident Internal Med. . [facility], [address] [place] [address], [address], tel:[phone] [facility] Counseling, unspecified 3 Health Education. . [facility], [address] [place] [address], [address], tel:[phone] [facility] Counseling, unspecified 3 Health Education. . INTERMED EXAM,[facility], [address] [place] [address], [address], [place] tel:[phone] [facility] varicose veins (chief complaint) Symptomatic varicose veins of both lower extremitiesEs sential (primary) hypertensionH yperlipidemia , unspecifiedHy pothyroidism, unspecified 3 Resident Internal Med. . INTERMED EXAM, [facility], [address] [place] [address], [address], [place] tel:[phone] [facility] hypertension (chief complaint)hyp erlipidemia (chief complaint)Thy roid problems (chief complaint) Healthcare maintenanceHy pothyroidism, unspecifiedHy perlipidemia, unspecifiedHy pertensionBod y mass index [BMI] 28.0-28.9, adultImmuniza tion not carried out because of patient refusalEncoun ter for immunizationS easonal allergies 3 Resident Internal Med. . [facility], [address] [place], [address], [place] [phone] [facility] No Information 3 [facility]. [address] [place], [address], [place]. tel:[phone] Psychotherap y, 30 Min With Patient And Or Family M [facility], [address] [place], [address], [place] [phone] [facility] Adjustment disorder with mixed anxiety and depressed mood 3 [facility]. [address] [place], [place], [id number], [place]. tel:[phone] Psychotherap y, 30 Min With Patient And Or Family M [facility], [address] [place], [address], [place] tel:[phone] [facility] Adjustment disorder with mixed anxiety and depressed mood 3 [facility]. [address] [place], [place], [id number], [place]. tel:[phone] [facility], [address] [place], [address], [place] tel:[phone] [facility] No Information 2 Management Case. [address] [place], [place], [id number], [place]. tel:[phone] Psychotherap y, 30 Min With Patient And Or Family M [facility], [address] [place], [address], [place] tel:[phone] [facility] Adjustment disorder with anxiety 2 [facility]. [address] [place], [place], [id number], [place]. tel:[phone] Psychotherap y, 45 Min With Patient And Or Family M [facility], [address] [place], [address], [place] tel: [phone] [facility] Adjustment disorder with mixed anxiety and depressed mood Jan- 2 [facility]. [address] [place], [place], [id number], [place]. tel:[phone] Psychotherap y, 45 Min With Patient And Or Family M [facility], [address] [place], [address], [place] tel: [phone] [facility] Adjustment disorder with mixed anxiety and depressed mood Jan- 2 [facility]. [address] [place], [id number], [place]. tel:[phone] INTERMED EXAM,ESTAB [facility], [address] [place], [address], [place] tel: [phone] [facility] Eye problems (chief complaint)Hyp othyroidism (chief complaint)HCM (chief complaint) Immunization not carried out because of patient refusalHypoth yroidism, unspecifiedBl epharitis of upper eyelids of both eyes, unspecified typeHypertens ionHyperlipid emia, unspecifiedAl lergic conjunctiviti s, bilateralPain of right eyeEncounter for immunization Jan- 2 Resident MED/PED. . Psychotherap y, 60 Min With Patient And Or Family M [facility], [address] [place], [address], [place] tel: [phone] [facility] Adjustment disorder with mixed anxiety and depressed mood Jan- 2 [facility]. [address] [place], [id number], [place]. tel:[phone] Psychotherap y, 60 Min With Patient And Or Family M [facility], [address] [place], [address], [place] tel: [phone] [facility] Adjustment disorder with mixed anxiety and depressed mood Oct- 2 [facility]. [address] [place], [id number], [place]. tel:[phone] Psychotherap y, 60 Min With Patient And Or Family M [facility], [address] [place], [address], [place] tel: [phone] [facility] Adjustment disorder with mixed anxiety and depressed mood Sep-3 0 2 Fredrick Suzette. [address] [place], [address], [place]. tel:[phone] Psychotherap y, 45 Min With Patient And Or Family M [facility], [address] [place], [address], [place] tel: [phone] [facility] Adjustment disorder with mixed anxiety and depressed mood Sep-2 2 Fredrick Suzette. [address], [place], [id number], [place]. tel:[phone] Psychotherap y, 60 Min With Patient And Or Family M [facility], [address] [place], [address], [place] tel: [phone] [facility] Adjustment disorder with mixed anxiety and depressed mood Sep-1 2 Fredrick Suzette. [address], [id number], [place]. tel:[phone] Psychotherap y, 60 Min With Patient And Or Family M [facility], [address] [place], [address], [place] tel: [phone] [facility] Adjustment disorder with mixed anxiety and depressed mood Sep-0 2 Fredrick Suzette. [address] [place], [id number], [place]. tel:[phone] [facility], [address] [place], [address], [place] tel: [phone] [facility] Blepharitis of upper eyelids of both eyes, unspecified typeSevere myopia, rightMyopia, leftAstigmati sm of both eyes, unspecified typePresbyopi a Sep-0 2 Jose E Silva. [address] [place], [place], [id number], [place]. tel:[phone] Psychotherap y, 60 Min With Patient And Or Family M [facility], [address] [place], [address], [place] tel:[phone] [facility] Adjustment disorder with mixed anxiety and depressed mood Sep-0 2 Fredrick Suzette. [address], [place], [id number], [place]. tel:[phone] Psychotherap y, 60 Min With Patient And Or Family M [facility], [address] [place], [address], [place] tel: [phone] [facility] depression (chief complaint) Adjustment disorder with mixed anxiety and depressed mood Nov- 2 Fredrick Suzette. [address], [place], [id number], [place]. tel:[phone] [facility], [address] [place], [address], [place] tel: [phone] [facility] No Information Nov- 2 Management Case. [address] [place], [place], [id number], [place]. tel:[phone] [facility], [address] [place], [address], [place] tel:[phone] [facility] No Information 2 Management Case. [address] [place], [place], [id number], [place]. tel:[phone] [facility], [address] [place], [address], [place] tel:[phone] [facility] No Information 2 Management Case. [address] [place], [place], [id number], [place]. tel:[phone] Psychotherap y, 30 Min With Patient And Or Family M [facility], [address] [place], [address], [place] tel:[phone] [facility] Adjustment disorder with mixed anxiety and depressed mood Nov- 2 Fredrick Suzette. [address] [place], [place], [id number], [place]. tel:[phone] LIMITED EXAM,[facility]. [facility], [address] [place], [address], [place] [phone] [facility] recurrent vertigo's (chief complaint)Vag inal itching (chief complaint)HCM (chief complaint) Encounter for screening mammogram for cancer of breastHypothy roidism, unspecifiedPr ediabetesAdju stment disorder with mixed anxiety and depressed moodVaginal irritation 2 Nathan Lockwood. [address] [place], [id number], [place]. tel:[phone] Referring Provider: Mandie Evans, [address] [place] [address] [place], [address] . tel:[phone] Psychotherap y, 30 Min With Patient And Or Family M [facility], [address] [place], [address], [place] [phone] [facility] Adjustment disorder with mixed anxiety and depressed mood 2 Fredrick Bradford. [address] [place], [place], [id number], [place]. tel:[phone] INTERMED EXAM,[facility], [address] [place], [address], [place] tel:[phone] [facility] Thyroid problems (chief complaint)Ear Pain (chief complaint)HCM (chief complaint) Immunization not carried out because of patient refusalEncntr screen for dis of the bld/bld-form org/immun mechnsmHypoth yroidism, unspecifiedEa r pain, bilateralBrea st cancer screening by mammogramAmbl yopia of left eyeImpacted cerumen, unspecified ear 2 Lon Parker. [address] [place], [place], [id number], [place]. tel:[phone] INTERMED EXAM,[facility], [address] [place], [address], [place] tel:[phone] [facility] hypothyroidis m (chief complaint)med ication (chief complaint)Pre ventive exam (chief complaint)HCM (chief complaint)col on cancer screening (chief complaint) Encounter for screening for malignant neoplasm of colonGastroes ophageal reflux disease, unspecified whether esophagitis presentHypoth yroidism, unspecifiedMe casimiro impairmentAbn ormal glucoseH/O: varicose veinsStressEn counter for immunizationE ncounter for screening mammogram for cancer of breast 2 Loren Bhatti. [address], [place], [id number], [place]. [phone] [facility], [address] [place], [address], [place] tel:[phone] [facility] Contact w and exposure to oth viral communicable diseases 2 Jono Montez. [address] [place], [place], [id number], [place]. [phone] LIMITED EXAM,ESTAB PAT. [facility], [address] [place], [address], [place] tel:[phone] [facility] Dry eyes (chief complaint) Viral conjunctiviti sSore throat 2 Resident Internal Med. . INTERMED EXAM,ESTAB PAT [facility], [address] [place], [address], [place] tel:[phone] [facility] colon cancer screening (chief complaint)HCM (chief complaint)Rig ht upper quadrant (chief complaint)Dys uria (chief complaint) Body mass index (BMI) 29.0-29.9, adultEncounte r for screening for cancer of colonRoutine health maintenanceOt her abnormal findings in urineRight upper quadrant abdominal pain Dec-0 1 Resident Internal Med. . [facility], [address] [place], [address], [place] tel:[phone] [facility] No Information 1 [facility]. [address] [place], [address], [place]. tel:[phone] LIMITED EXAM,ESTAB [facility]. [facility], [address] [place], [address], [place] tel:[phone] [facility] cough (chief complaint) Gastroesophag eal reflux disease, unspecified whether esophagitis presentCough 1 Resident Internal Med. . BRIEF EXAM, ESTAB [facility]. [facility], [address] [place], [address], [place] tel:[phone] [facility] Cough (chief complaint) Cough 1 Sidra Hahn. [address] [place] [address], [id number], . tel:[phone] INTERMED EXAM,[facility], [address] [place], [address], [place] tel: [phone] [facility] Cough (chief complaint) CoughHypothyr oidism, unspecified 1 Resident MED/PED. . LIMITED EXAM,[facility]. [facility], [address] [place], [address], [place] tel: [phone] [facility] Cough 1 Resident MED/PED. . [facility], [address] [place] [address], [address], [place] tel: [phone] [facility] Counseling, unspecified 0 Health Education. . LIMITED EXAM,ESTAB [facility]. [facility], [address] [place], [address], [place] tel: [phone] [facility] hypertension (chief complaint)Thy roid problems (chief complaint)hyp erlipidemia (chief complaint)col on cancer screening (chief complaint)HCM (chief complaint)All ergies (chief complaint) Encounter for screening for cancer of colonImmuniza tion not carried out because of patient refusalHypert ensionPrediab etesHypothyro idism, unspecifiedHy perlipidemia, unspecifiedNo dule of skin of head 0 Shannan Dougherty. [address], [place], [id number], [place]. tel:[phone] [facility], [address] [place] [address], [address], [place] tel: [phone] [facility] No Information 0 Shannan Dougherty. [address] [place], [place], [address], [place]. tel:[phone] MINIMAL EXAM,ESTAB PAT. [facility], [address] [place], [address], [place] tel: [phone] [facility] immunization (chief complaint) Encounter for immunization 0 [employer] [place] [employer]. . INTERMED EXAM,ESTAB PAT [facility], [address] [place] [address], [address], [place] tel: [phone] [facility] hypertension (chief complaint)Uri nary symptoms (chief complaint) HypertensionH ypothyroidism , unspecifiedHe althcare maintenancePr ediabetesHype rlipidemia, unspecifiedDy suriaOther specified counseling 0 Stephen Forbes. [address] [place], [place], [id number], [place]. tel:[phone] LIMITED EXAM,ESTAB PAT. [facility], [address] [place] [address], [address], [place] tel: [phone] [facility] hypertension (chief complaint)Thy roid (chief complaint)lef t axillary pain (chief complaint) Breast pain, leftHypothyro idism, unspecifiedHy pertension 9 Shannan Dougherty. [address], [place], [id number], [place]. tel:[phone] [facility], [address] [place] [address], [address], [place] tel: [phone] [facility] No Information 9 Lamp Magy. [address] [place], [id number], [place]. tel:[phone] [facility], [address] [place], [address], [place] tel:[phone] [facility] Hypothyroidis m, unspecified 9 Adelia Bhatti. [address] [place], [place], [id number], [place]. tel:[phone] [facility], [address] [place], [address], [place] tel: [phone] [facility] Encounter for dental exam and cleaning w abnormal findings 9 Annalise GuanVictor Hugo. [address] [place], [id number], [place]. tel:[phone] [facility], [address] [place], [address], [place] tel: [phone] [facility] Hypothyroidis m, unspecified 9 Shannan Dougherty. [address], [place], [address], [place]. tel:[phone] INTERMED EXAM,ESTAB PAT [facility], [address] [place], [address], [place] tel: [phone] [facility] hypertension (chief complaint)Thy roid problems (chief complaint)Mus culoskeletal pain (chief complaint) Encounter for screening for cancer of colonHypothyr oidism, unspecifiedPr ediabetesHype rtensionSciat ica of right side 9 Campbell Ladonna. [address], [place], [id number], [place]. tel:[phone] [facility], [address] [place], [address], [place] tel: [phone] [facility] No Information 9 Shannan Dougherty. [address] [place], [id number], [place]. tel:[phone] [facility], [address] [place], [address], [place] tel: [phone] [facility] Hypothyroidis m, unspecified 9 Mullen Faith. [address] [place], [place], [address], [place]. tel:[phone] [facility], [address] [place], [address], [place] tel: [phone] [facility] Hypothyroidis m, unspecified 9 Shannan Dougherty. [address], [address], [place]. tel: [phone] LIMITED EXAM,ESTAB PAT. [facility], [address] [place], [address], [place] tel: [phone] [facility] hypertension (chief complaint)hyp erlipidemia (chief complaint)col on cancer screening (chief complaint) Encounter for screening for cancer of colonHyperten sionHypothyro idism, unspecifiedPr ediabetesHist ory of uterine fibroidAt risk for dental problems 9 Shannan Dougherty. [address] [place], [place], [id number], [place]. tel:[phone] LIMITED EXAM,ESTAB PAT. [facility], [address] [place], [address], [place] tel: [phone] [facility] Follow up on lab test(s) (chief complaint)Col on Cancer Screening (chief complaint) Body mass index (BMI) 27.0-27.9, adultEncounte r for screening for cancer of colonHypothyr oidism, unspecifiedHy pertensionHis tory of uterine fibroid 8 Shannan Dougherty. [address] [place], [place], [id number], [place]. tel:[phone] [facility], [address] [place], [address], [place] tel: [phone] [facility] No Information 8 [facility]. [address] [place] [address], [address], [place]. [phone] LIMITED EXAM,ESTAB PAT. 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 [address], [place], [id number], [place]. [phone] INTERMED EXAM,ESTAB PAT [facility], [address] [place], [address], [place] tel:[phone] [facility] back pain (chief complaint)see standing orders (chief complaint) HypertensionH ypothyroidism , unspecifiedHy perlipidemia, unspecifiedCe rvical massOther abnormal findings in urineEncounte r for screening for cancer of colonAcute right-sided thoracic back pain 8 Stephen Forbes. [address] [place], [place], [address], [place]. [phone] LIMITED EXAM,ESTAB PAT. [facility], [address] [place], [address], [place] tel:[phone] [facility] Sore throat (chief complaint) Acute pharyngitis, unspecifiedHy pertensionHyp othyroidism, unspecifiedHy perlipidemia, unspecified Jul- 8 Resident Internal Med. . LIMITED EXAM,ESTAB PAT. [facility], [address] [place], [address], [place] tel:[phone] [facility] Follow up on lab test(s) (chief complaint) Cervical mass 8 Adelia Bhatti. [address] [place], [id number], [place]. [phone] LIMITED EXAM,ESTAB PAT. [facility], [address] [place], [address], [place] tel:[phone] [facility] preventive exam (chief complaint)Fol low up on lab test(s) (chief complaint) Post-menopaus al bleeding 7 Adelia Bhatti. [address] [place], [address], [place]. tel:[phone] LIMITED EXAM,ESTAB PAT. [facility], [address] [place], [address], [place] tel: [phone] [facility] hematuria (chief complaint)HCM (chief complaint) Post-menopaus al bleedingOther abnormal findings in urineAllergic rhinitis, unspecified allergic rhinitis trigger, unspecified rhinitis seasonalityHy pertensionHyp othyroidism, unspecified 7 Nathan Lockwood. [address] [place], [place], [id number], [place]. tel:[phone] LIMITED EXAM,ESTAB PAT. [facility], [address] [place], [address], [place] tel: [phone] [facility] Thyroid problems (chief complaint)hyp ertension (chief complaint)hyp erlipidemia (chief complaint)Med refills (chief complaint) HypertensionH ypothyroidism , unspecifiedHy perlipidemia, unspecifiedAl lergic rhinitis, unspecified allergic rhinitis trigger, unspecified rhinitis seasonalityPr ediabetes Shannan Dougherty. [address], [id number], [place]. tel:[phone] LIMITED EXAM,ESTAB PAT. [facility], [address] [place], [address], [place] tel: [phone] [facility] Cough (chief complaint) Viral upper respiratory tract infection Sidra Hahn. [address], [id number], [place]. tel:[phone] LIMITED EXAM,ESTAB PAT. [facility], [address] [place], [address], [place] tel:[phone] [facility] Burning on urination (chief complaint) DysuriaHyperl ipidemia, unspecifiedHy pothyroidism, unspecifiedHy pertension 7 Stephen Forbes. [address] [place] [address], [id number], [place]. tel:[phone] LIMITED EXAM,ESTAB PAT. [facility], [address] [place], [address], [place] tel: [phone] [facility] hypertension (chief complaint)hyp erlipidemia (chief complaint)hyp othyroidism (chief complaint)All ergies (chief complaint)Diz ziness (chief complaint)dep ressed mood (chief complaint) Healthcare maintenanceEs sential (primary) hypertensionH yperlipidemia , unspecifiedAl lergic rhinitis, unspecified allergic rhinitis trigger, unspecified rhinitis seasonalityHy pothyroidism, unspecifiedAd justment disorder with depressed mood 7 [facility]. . LIMITED EXAM,ESTAB PAT. [facility], [address] [place], [address], [place] tel: [phone] [facility] F/U TSH (chief complaint) Essential (primary) hypertensionH ypothyroidism , unspecifiedHe althcare maintenance 7 Resident Internal Med. . LIMITED EXAM,ESTAB PAT. [facility], [address] [place] [address], [address], [place] tel: [phone] [facility] depression (chief complaint)Thy roid problems (chief complaint)All ergies (chief complaint) Hypothyroidis m, unspecifiedAl lergic rhinitisPredi abetesHyperli pidemia, unspecifiedDe ntal cariesEssenti al (primary) hypertension 7 Resident [facility] Med. . LIMITED EXAM,ESTAB PAT. [facility], [address] [place] [address], [address], [place] tel: [phone] [facility] Cough (chief complaint)Dep ression (chief complaint) Essential (primary) hypertensionA llergic rhinitis, unspecified allergic rhinitis trigger, unspecified rhinitis seasonalityPr ediabetesBere avementHypoth yroidism, unspecifiedHe althcare maintenance 7 Resident Internal Med. . [facility], [address] [place], [address], [place] tel: [phone] [facility] No Information 7 [facility]. [address] [place], [address], [place]. tel:[phone] INTERMED EXAM,ESTAB PAT [facility], [address] [place], [address], [place] tel:[phone] [facility] Cough (chief complaint) Allergic rhinitisEssen tial (primary) hypertensionH ypothyroidism , unspecifiedIm paired fasting glucoseEncoun ter for screening for cancer of colonOverweig htHyperlipide stuart, unspecifiedVi ral URIOther viral agents as the cause of diseases classified elsewhereHeal thcare maintenance 7 Resident Internal Med. . [facility], [address] [place], [address], [place] tel:[phone] [facility] No Information 7 [facility]. [address] [place], [address], [place]. [phone] [facility], [address] [place], [address], [place] tel:[phone] [facility] No Information 6 [facility]. [address] [place], [address], [place]. [phone] LIMITED EXAM,ESTAB PAT. [facility], [address] [place], [address], [place] tel:[phone] [facility] hypertension (chief complaint)RX (chief complaint)TB Assesment (chief complaint) Hypothyroidis m, unspecifiedEs sential (primary) hypertensionA llergic rhinitis 6 Shannan Dougherty. [address] [place], [place], [id number], [place]. tel:[phone] LIMITED EXAM,ESTAB PAT. [facility], [address] [place], [address], [place] tel:[phone] [facility] Musculoskelet al pain (chief complaint)hyp ertension (chief complaint)Med refills (chief complaint) Impingement syndrome of left shoulderHypot hyroidism, unspecifiedIm paired fasting glucose 6 [address] [place], [place], [id number], [place]. tel:[phone] LIMITED EXAM,ESTAB PAT. [facility], [address] [place], [address], [place] tel:[phone] [facility] hypertension (chief complaint)pre ventive exam (chief complaint)col d (chief complaint)hyp othyroid (chief complaint) Encntr for relocation services specialist exam (general) (routine) w/o abn findingsImpai red fasting glucoseEssent ial (primary) hypertensionH ypothyroidism , unspecifiedLo w vision, both eyesDental caries [address] [place], [id number], [place]. tel:[phone] [facility], [address] [place], [address], [place] tel: [phone] [facility] No Information 5 Shannan Doug[address] [place], [id number], [place]. [phone] INTERMED EXAM,ESTAB PAT [facility], [address] [place], [address], [place] tel: [phone] [facility] hypertension (chief complaint)Thy roid problems (chief complaint)All ergies (chief complaint)Wan ts flu shot (chief complaint) Encntr screen for dis of the bld/bld-form org/immun mechnsmEssent ial (primary) hypertensionH ypothyroidism , unspecifiedEn counter for screening mammogram for cancer of breastEncount er for screening for cancer of colonImpaired fasting glucose 5 Sh[address] [place], [id number], [place]. tel:[phone] [facility], [address] [place], [address], [place] tel: [phone] [facility] No Information 5 Shannan Dougherty. [address] [place], [place], [id number], [place]. tel:[phone] [facility], [address] [place], [address], [place] tel: [phone] [facility] No Information 5 [facility]. [address] [place], [address], [place]. tel:[phone] LIMITED EXAM,ESTAB PAT. [facility], [address] [place], [address], [place] tel: [phone] [facility] Hypothyroidis m (chief complaint)hyp ertension (chief complaint)All ergies (chief complaint) No Information 5 Resident Internal Med. . [facility], [address] [place], [address], [place] tel: [phone] [facility] Hypothyroidis m 5 Adelia Magy. [address] [place], [place], [id number], [place]. tel:[phone] LIMITED EXAM,ESTAB PAT. [facility], [address] [place], [address], [place] tel: [phone] [facility] hypertension (chief complaint)Hyp othyroidism (chief complaint) Hypertension, BenignHypothy roidismOther and unspecified hyperlipidemi aIMPAIRED FASTING GLUCOSE 4 Shannan Dougherty. [address] [place], [place], [id number], [place]. tel:[phone] [facility], [address] [place], [address], [place] tel: [phone] [facility] hypertension (chief complaint)Thy roid problems (chief complaint) No Information Sep-3 0-201 4 Resident Internal Med. . [facility], [address] [place] [address], [address], [place] tel:[phone] [facility] No Information Sep-2 5-201 4 No Information LIMITED EXAM,ESTAB PAT. [facility], [address] [place], [address], [place] tel:[phone] [facility] hypertension (chief complaint)hyp othyroidism (chief complaint)war ts (chief complaint) Viral warts, unspecifiedHy pothyroidismH ypertension, Benign Nov- 4 Sh[address] Jordan [address], [place], [place], [id number], [place]. tel:[phone] LIMITED EXAM,ESTAB PAT. [facility], [address] [place], [address], [place] tel:[phone] [facility] warts (chief complaint) Viral warts, unspecifiedHy pertension, Benign 4 Shannan Jordan [address], [place], [place], [id number], [place]. tel:[phone] LIMITED EXAM,ESTAB PAT. [facility], [address] [place], [address], [place] tel: [phone] [facility] thyroid problems (chief complaint)med refills (chief complaint)fol low up on lab test(s) (chief complaint) Hypertension, BenignHypothy roidismViral warts, unspecified Albert- 4 Shann[address] Jordan [address], [place], [place], [id number], [place]. tel:[phone] LIMITED EXAM,ESTAB PAT. [facility], [address] [place] [address], [address], [place] tel:[phone] [facility] thyroid problems (chief complaint)all ergies (chief complaint) Hypothyroidis m Jun- 4 Shannan Jordan [address] [place], [id number], [place]. tel:[phone] LIMITED EXAM,ESTAB PAT. [facility], [address] [place], [address], [place] tel:[phone] [facility] thyroid problems (chief complaint) OverweightHyp othyroidismIM PAIRED FASTING GLUCOSEHypert ension, BenignOther and unspecified hyperlipidemi a 3 Shannan Dougherty. [address] [place], [place], [id number], [place]. tel:[phone] [facility], [address] [place], [address], [place] tel:[phone] [facility] No Information 3 [facility]. [address] [place], [address], [place]. tel:[phone] [facility], [address] [place], [address], [place] tel:[phone] [facility] No Information 0 2 [facility]. [address] [place], [address], [place]. tel:[phone] INTERMED EXAM,ESTAB PAT [facility], [address] [place], [address], [place] tel:[phone] [facility] No Information Sep-2 1- 2 No Information LIMITED EXAM,ESTAB PAT. [facility], [address] [place], [address], [place] tel: [phone] [facility] No Information 0 8- 1 Resident Internal Med. . LIMITED EXAM,ESTAB PAT. [facility], [address] [place], [address], [place] tel:[phone] [facility] No Information 0 7- 1 Resident Internal Med. . LIMITED EXAM,ESTAB PAT. [facility], [address] [place], [address], [place] tel:[phone] [facility] No Information 1 Resident Family [facility]. . LIMITED EXAM,ESTAB PAT. [facility], [address] [place], [address], [place] tel:[phone] [facility] No Information 1 Resident Internal Med. . [facility], [address] [place], [address], [place] tel:[phone] [facility] No Information 0 No Information Family [...] administered Note: Imported from [facility]. From Provider: [facility]. Injected by: DOMINGA GOMEZ MA. ; Source: Source Unspecified Influenza administered Note: Imported from [facility]. From Provider: [facility]. Injected by: ADELAIDA CHIANG RN. ; Source: Source Unspecified Tdap administered Note: Imported from [facility]. From Provider: [facility]. Injected by: Sulema Stearns MA. ; Source: Source Unspecified Influenza administered Note: Imported from [facility]. From Provider: [facility]. Injected by: Nicol Gomez MA. ; Source: Source Unspecified Novel [id number], all formulations administered Note: Imported from [facility]. From Provider: [facility]. Injected by: Nicol Gomez MA. ; Source: Source Unspecified Novel [id number], all formulations administered Note: Imported from [facility]. From Provider: [facility]. Injected by: Nicol Gomez MA. ; Source: Source Unspecified Payers Payer name Insurance type Covered constitution party ID Authoriza tion(s) Medicare PPS Telehealth MB [id number] BS Promise Medicare Secondary CI [id number] Medicare PPS MB [id number] BS Promise Medicare Secondary CI [id number] Medicare PPS MB [id number] BS Promise Medicare Secondary CI [id number] HCLA BS Promise Medi-Arleen MC [id number] [employer] Managed Care Interim Rate [id number] HCLA BS Promise Medi-Arleen MC [id number] HCLA LA Care Medi-Arleen CI [id number] [employer] Managed Care Interim Rate [id number] Social History Type Description Quantity Date [...] u se screening. Due on due Goal IGRA. Due on due Goal Alcohol Screening. Due on due Goal Tdap due Goal PPD (TST). Due on due Goal Retinal Screening. Due on due Goal Lipid panel. Due on 029 due Goal Zoster vaccine (1st) due Goal Domestic Violenc e Screen. Due on due Goal Dental exam. Due on 025 due Goal Hepatitis C screening due Goal Zoster vaccine ( 2nd). Due [...] on due Goal Dental exam. Due on 024 due Goal Zoster vaccine (1st) due Goal [...] on due Goal Dental exam. Due on 024 due Goal Depression Scree jg. Due on due Goal TB Risk Assessment. Due on due Goal CT-Colonography. Due on due Goal Domestic Violenc e Screen. Due on due Goal Lifestyle education regardin [...] due Goal Mammogram. Due on due Goal DEXA Scan. Due [...] A due Goal Lipid panel. Due on 028 due Goal Colonoscopy. Due on 023 due [...] A due Goal Alcohol Screening. Due on Oc [...] Lifestyle education regardin g diet completed Goal PPD (TST). Due on due Goal TB Risk Assessment. Due on A due Goal Zoster vaccine ( 2nd). Due on due Goal DEXA Scan. Due on due Goal Td vaccine. Due on due Goal Alcohol Screening. Due on due Goal Mammogram. Due on 4 due Goal IGRA. Due on due Goal FIT. Due on due Goal Lipid panel. Due on due Goal Depression Scree jg. Due on due Goal Domestic Violenc e Screen. Due on due Goal Tdap due Goal Zoster vaccine (1st) due Goal Dental exam. Due on 023 due Goal TB Risk Assessment. Due on [...] Due on 027 due Goal Zoster vaccine (1st) due Goal Alcohol Screening. Due on due Goal Dental exam. Due on 022 due Goal Domestic Violenc e Screen. Due on due Goal Zoster vaccine ( 2nd). Due on due Goal TB Risk Assessment. Due on A due Goal PPD (TST). Due on 2 due Goal DEXA Scan. Due on due Goal Tdap due Goal Td vaccine. Due on 22 due Goal Depression Scree jg. Due on [...] Goal Alcohol Screening. Due on due Goal Lipid panel. [...] Goal Td vaccine. Due on due Goal Td vaccine. Due [...] A due Goal PPD (TST). Due on 2 due Goal Zoster vaccine (1st) due Goal Td vaccine. Due on due Goal DEXA Scan. Due on due Goal Tdap due Goal Zoster vaccine ( 2nd). Due on due Goal DEXA Scan. Due on due Goal Domestic Violenc e Screen. Due on due Goal PPD (TST). Due on 2 due Goal Td vaccine. Due on due Goal TB Risk Assessment. Due on A due Goal Dental exam. Due on 022 due Goal Depression Scree jg. Due on due Goal FIT. Due on due Goal Alcohol Screening. Due on due Goal Lipid panel. Due on 027 due Goal Tdap due Goal IGRA. Due on due Goal Zoster vaccine (1st) due Goal Zoster vaccine (1st) due Goal DEXA Scan. Due on 2 due Goal Td vaccine. Due on due Goal PPD (TST). Due on 2 due Goal IGRA. Due [...] due Goal FIT. Due on due Goal Domestic Violenc e [...] Oc due Goal DEXA Scan. Due on 2 due Goal Dental exam. Due on 022 [...] due Goal Colonoscopy. Due on due Goal Colonoscopy. Due on [...] on 025 due Goal Tdap due Goal Dental exam. Due on 022 due Goal Alcohol Screening. Due on due Goal Zoster vaccine (1st) due Goal Domestic Violenc e Screen. Due on due Goal FIT-DNA. Due on due Goal Depression Scree jg. Due on due Goal DEXA Scan. Due on [address]-Colonography[address] Due on due Goal [...] Td vaccine. Due on 21 due Goal Lipid panel. Due on 025 [...] Goal Mammogram. Due on 2 due Goal TB Risk [...] Pneumococcal vac cine. Due on due Goal FIT-DNA. Due on [...] 011 due Goal Td vaccine. Due on [address]-Colonography. Due on due Goal [...] DEXA Scan. Due on 0 due Goal IGRA. Due on due Goal Depression Scree jg. Due on due Goal DEXA Scan. Due on 0 due Goal Pap/HPV testing. Due on due Goal Colonoscopy. Due on 011 due Goal Alcohol Screening. Due on due Goal Pneumococcal vac cine. Due on due Goal Domestic Violenc e Screen. Due on due Goal TB Risk Assessment. Due on J due Goal Dental exam. Due on due Goal Lipid panel. Due on due Goal Zoster vaccine ( 1st). Due on due Goal PPD (TST). Due on 0 due Goal Depression Scree [...] due Goal Mammogram. Due on due Goal IGRA. Due on [...] O due Goal Dental exam. Due on due Goal PPD (TST). Due on 7 due Goal Colonoscopy. Due on due Goal [...] 7 due Goal Dental exam. Due on due [...] Alcohol Screening. Due on Ap due Goal Colonoscopy. Due on 011 due Goal PPD (TST). Due on 7 due Goal Depression Scree jg. Due on due Goal Mammogram. Due on 9 due Goal Alcohol Screening. Due on Ap due Goal Colonoscopy. Due on 011 due Goal Domestic Violenc e Screen. Due on due Goal Dental exam. Due on 017 due Goal PPD (TST). Due on 7 due Goal Zoster vaccine due Goal Tdap due Goal Pap/HPV testing. Due on due Goal IGRA. Due on due Goal Depression Scree jg. Due on due Goal TB Risk Assessment. Due on O due Goal Dental exam. Due on due Goal Alcohol Screening. Due on Ap due Goal TB Risk Assessment. Due on O due Goal PPD (TST). Due on 7 due Goal Colonoscopy. Due on due Goal Domestic Violenc e Screen. Due on due Goal IGRA. Due on due Goal Colonoscopy. Due on due Goal Domestic Violenc e Screen. Due on due Goal Dental exam. Due on due Goal TB Risk Assessment. Due on J -13-2017 due Goal Alcohol Screening. Due on due [...] treat ordered Referral Ordered: referred to outside [facility] Att[facility] needs new glasses (related to Low vision, both eyes) ordered Referral Ordered: referred to outside dental referrals poor dentition (related to Dental caries) ordered Referral Ordered: referred to [facility] Attendant (related to Essential (primary) hypertension) ordered Referral Ordered: referred to [facility] check up (related to Essential (primary) hypertension) ordered Appointment Celia Hay BOOKED Appointment Celia Hay BOOKED Future Order: Lab Order INSURE O NE IFOBT ([id number]), Appointment on: , Sent on: Sent Future Order: Lab Order InSure O NE IFOBT ([id number]), Sent on: Sent History Of Present Illness Encounter Date Complaint History Of Prese nt Illness HPI Celia Barrett Crowezequiel miles is a 67 F with Hx [...] GIVEN TO TELEPHONE COMMUNICATION. VISIT CONDUCTED IN [place] WITHOUT USE OF ACCREDITED PHARMACY TECHNICIAN BY PATIENT CONSENT.EST PT WITH COUGH, SORE [...] pain and itchy. Patient reports no discharge. [facility] please sent flu shot to [facility] pharmacy offered pt TDAP, PCV-13 and Shingrix pt declines todayMammo-pt is due please order referral depression This is an initi al visit. Vaginal itching [facility] pt requesting la bs for TSH recurrent vertigo's Thyroid problems Risk factors in clude female and history of hypothyroidism. Additional information: Hypothyroidism medication refill. [facility] 1. Mammogram ref erral Ear Pain [...] ordered. medication Pt needs medicat ion refills HCM Pt due for Tdap & Zoster vaccine, [...] far away. Saw an eye doctor in [place] and wants to go to another appt [...] refill of her thyroid medication. Dry eyes Dysuria Additional infor yaritza: LMP: 03/22/2007, Pt endorsing intermittent dysuria. MARLEY rouse this clinic visit.. Right upper quadrant Pt reports a hx [...] past. No reported hx of biliary colic. HCM Pt would like to discuss Tdap Vaccine, [...] difficulty with stooling w/ associated abdominal pain. cough (comments) 65F with GERD, presenting for [...] include fever. Additional information: vaccinated. went to [place] 3[place]4 months ago. has omeprazole has not [...] weeks ago when she was returnng from [place], negative. Cough colon cancer screening Prior scr eening: fecal occult blood testing. Denies risk factors. There are no associated symptoms. Additional information: No family history of colon cancer. HCM Med refillsDue f or Tdap, shingrix and [id number] vaccines. Pt declines all today. Allergies Symptoms [...] NSAID/ASA use and Fit test ordered today. relocation services specialist no spotting in p ast sev lor relocation services specialist , then lost medicalEMB neg here HCM no family histor y of colon cancer or blood in stoolIFOBT ordered hypertension The severity has been described as [...] an 15 days ago. Was seen at [facility] per patient on 03/08/2017-03/09/2017 . patient does not recall actual date. Went in Had noticed drops of bloodin her underwear. [place] that it was in her urine. States [...] Patient declines flu vaccinepatient declines FIT test. hyperlipidemia Risk factors inc lude age over 50. The patient is adhering to medication for their hyperlipidemia. Pertinent negatives include chest pain. Med refills hypertension The severity has been [...] has to urinate and quintanilla to urinate. hypertension Additional infor mation: No new complaints [...] to medication and follow-up for their hyperlipidemia. Allergies The patient pres ents with post [...] TB Asses ment, patient was born in [facility], patient states she did receive BCG vaccine [...] No Information Instructions Date Instruction Additional Infor yaritza - Referral to vascul ar surgery placed at prior visit- Cont compression socks Related to Symptomatic varicose veins of both lower extremities Seeing dentistry Related to [place] al decay Last pap: 2015 with normal [...] atorva 40 qhs Related to Prediabetes Last labs much improvedCont stat in Related to Hyperlipidemia, unspecified Cont Coreg 6.25 BID. Increase as needed Related to Hypertension -Sent neomycin-HC ot ip drops -Complete amox course -ER precautions given -Will follow up in person at next visit Related to Acute otitis externa of right ear, unspecified type Amox x7 days Related to Acute tonsillitis, unspecified etiology Cont levothyroxine Related to Hy pothyroidism, unspecified OTIC ABX. REEXAMIN AT F/U 05/21/24 Related [...] Coreg 6.25 BID Related to H ypertension - Referral to vascul ar surgery placed at prior visit and pending scheduling - Cont compression socks Related to Symptomatic varicose veins of both lower extremities Repeated labs today Cont levothyroxine Related to [...] Related to Prediabetes Seeing dentistry Related to [place] al decay Last labs much improvedCont stat in Related to Hyperlipidemia, unspecified Check on referral an d let pt [...] referral placed Relate d to Dental decay Last pap: 2016 with normal results -> was 62-63 at [...] Rel ated to Hypothyroidism, unspecified - Cont atova- repeat lipids Rela jessie to Hyperlipidemia, unspecified - Cont metop Related to Hyper tension - Due for Td, zoster - Completed [...] 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
--- OUTSIDE RECORDS SUMMARY | 2024-06-27 15:35 | XMS_ITS | Continuity of Care Document ---
Author Organization [facility] Address [address] [place] [address] Phone Care Team Providers Care Sheet Metal Fabricator Name Role Phone Leonor Yousif DMD Unavailable [...] Diagnoses Date Provider Providers Copied on Encounter [facility], [address] [place], [place], [id number], [place] tel:[phone] [facility] Encounter for dental examination and cleaning with abnormal findingsTobacco abuse counselingOther specified counselingRisk for dental caries, highDietary counseling and surveillance David Galvez. [address], [place], [id number], [place]. tel:[phone] Family History Family Member Type Diagnosis Age At Onset No Information Payers Payer name Insurance type Covered green party ID Omid otero(s) [facility] OP [id number] DENTICAL [id number] Social History Type Description Quantity Date Captured [...]
--- OUTSIDE RECORDS SUMMARY | 2024-06-27 15:35 | XMS_ITS | Clinical Summary ---
Author Organization [facility] Location Address [address] [place] [address] Phone Care Team Providers Care Chin Strap Sewer Name Role Phone Curt Falk MD Primary Care Provider [phone] Surgical History Surgery Date Site/Laterality Comments OTHER [...] age to complete this topic Care Teams Chin Strap Sewer Relationship Specialty Start Date End Date Curt Falk MD [address] [place] [address] Dr [address] WILLIAM Barrera PCP - General 07/16/21
== END 2024-06-27 13:54 | disposition home or self-care (01) ==
LOC: HO.HCC 13:17
PROVIDERS: PCP Internal Medicine; Visit Provider Nurse Practitioner Psychiatric/Mental Health
DX: F11.20 Opioid dependence, uncomplicated (principal)
CPT/HCPCS: 99213

== ENCOUNTER → 2024-06-27 13:17 | Outpatient (BNVA) | payer OTHER, SELFPAY | PROVIDERS: PCP Internal Medicine; Visit Provider Nurse Practitioner Psychiatric/Mental Health | DX: Z51.81 Encounter for therapeutic drug level monitoring (principal) ==

== ENCOUNTER 2024-07-12 12:56 | Outpatient (AMB) | payer OTHER, SELFPAY ==
[2024-07-12 13:02] VITALS: BP 142/70; PULSE 74; RESP 18; TEMP 37; O2SAT 94; BMI 40.8
--- NOTE | 2024-07-12 13:02 | MHC.PC.OV ---
Vital Signs 07/12/24 13:02 Height 4 ft 11 in Weight 202 lb 3.2 oz BMI 40.8 BP 142/70 H Blood Pressure Location Lt brachial Position Sitting Respiration 18 Pulse 74 Pulse Source Pulse Oximeter Temp 98.6 F Temp Source Oral Pulse Oximetry (%) 94 Oxygen Delivery Method Room Air Intake Visit Reasons: rash all over body Metrology Engineer Required: No Accompanied by: Self / Same As Patient Allergies Penicillins [PENICILLINS] Allergy (Intermediate, Verified 07/12/24 23:42) RASH Medication List - Last Reconciled 07/12/24 by JAKE Pacheco acetaminophen 650 mg (2 x 325 mg) PO Q6H PRN 30 days [ADULT PULL-UPS As directed] [ADULT PULL-UPS As directed] albuterol sulfate 2.5 mg (3 mL) inhalation Q6H PRN 30 days albuterol sulfate 90 mcg/actuation 2 inhalations inhalation Q6H PRN 30 days atorvastatin 10 mg PO BEDTIME 90 days blood pressure kit-extra large As directed buprenorphine HCl (Belbuca) 150 mcg buccal Q12H dupilumab (Dupixent) mg subcut escitalopram oxalate 20 mg PO DAILY 90 days ezetimibe 10 mg PO DAILY fluticasone propion-salmeterol 115-21 mcg/actuation (Advair HFA) 2 puffs inhalation Q12H 30 days ibuprofen 600 mg PO Q8H PRN loratadine 10 mg PO DAILY PRN 90 days lorazepam mg PO BID PRN naloxone 4 mg/actuation (Narcan) 4 mg intranasal Q3M PRN [NEBULIZER and all related supplies As directed] omeprazole 40 mg PO DAILY 90 days prednisone 10 mg PO DIRECTED quetiapine 100 mg PO BEDTIME trazodone 100 mg PO BEDTIME PRN [wipes As directed] zolpidem 5 mg PO BEDTIME PRN Tobacco use date assessed: 07/12/24 Fall risk assessment: No Falls in past year Last assessed Fall Risk: 07/12/24 Dental Screening Dental Screen Date: 07/12/24 Did you have a dental visit in the last 12 months?: No Did you have a dental problem in the last 6 months where you did not have access to dental care?: No Was dental information given to patient?: Patient has dentist HPI rash all over body HPI Details The patient is a 69-year-old female who is presenting a sick visit She reports allergy for few years. She was seen by Dermatology and was prescribe Dupixent with positive effect. The patient reports that she was doing well for a while so she stoppped the medication. Reports that these itchy rashes started again. In the patient nothing help, except prednisone. Reports that she was started back on the Dupixent and she feels like the medication has not fully kicked in yet. Reports that this morning she woke up and her lip was swollen from the rash, the itchiness is intense. The patient reports that the last time she was taking the prednisone for 0ne year while waiting for the medication to work. The patient denies chest pain, sob, heart palpitation and dizziness The patient denies abdominal pain change in bowel habits The patient denies symptoms PFSH Medical History Abdominal pain Depression Anxiety Insomnia Myalgia, upper arm Osteoarthritis of right knee Lumbar spondylosis Foot pain, bilateral BRIDGETTE (obstructive sleep apnea) Asthma KAMILA positive Urticaria Obesity (BMI 30-39.9) Vitamin D deficiency Chronic interstitial cystitis Irritable bowel syndrome (IBS) Arthralgia Osteoarthritis Esophageal stricture GERD (gastroesophageal reflux disease) Left lumbar radiculopathy CAD (coronary artery disease) Pure hypercholesterolemia Benign essential hypertension Surgical History History of surgery History of total right knee replacement (09/22/21) Hx of cystoscopy Status post balloon dilatation of esophageal stricture (~2005) History of cardiac catheterization History of colonoscopy History of nephrolithotomy with removal of calculi History of tooth extraction Family History Father Hypertension Mother Hypertension Diabetes CVD (cardiovascular disease) Daughter No problems noted. Family/Other FH: mental illness Other Mental health problem Substance abuse Social History Housing: Apartment Are you a primary career services assistant to a significant other at home: No Do you presently have visiting nurse or other home services: No Alcohol intake: never Comment: medicated, see MAR Patient Tobacco Use Status: Never used Tobacco e-Cigarette/Vaping Use: Never Used Second Hand Smoke Exposure: No service: No Current occupational status: disabled Cognitive needs: No Hearing needs: No Vision needs: Yes (Glasses) Questionnaire PHQ-9 Over the last 2 weeks, how often have you been bothered by any of the following problems? 1. Little interest or pleasure in doing things: not at all 2. Feeling down, depressed, or hopeless: not at all 3. Trouble falling or staying asleep, or sleeping too much: not at all 4. Feeling tired or having little energy: not at all 5. Poor appetite or overeating: not at all 6. Feeling bad about yourself - or that you are a failure or have let yourself or your family down: not at all 7. Trouble concentrating on things, such as reading the newspaper or watching television: not at all 8. Moving or speaking so slowly that other people could have noticed. Or the opposite - being so fidgety or restless that you have been moving around a lot more than usual: not at all 9. Thoughts that you would be better off or of hurting yourself in some way: not at all Total score: 0 Depression Screening Interpretation: Negative Depression Screening Done: Yes Source: Developed by Drs. Jorge Diallo, Yumiko Irvin, Celestino Banda and colleagues, with an educational mari from [employer]. Thrive Questionnaire Date Thrive assessed: 07/12/24 I am a: Patient What is your living situation today?: I have a steady place to live Within the past 12 months, did the food you bought not last and you didn't have the money to get more?: Never true Within the past 12 months, did you worry whether your food would run out before you got money to buy more?: Never true Do you have trouble paying for medicines?: No Do you have trouble getting transportation to medical appointments?: No Do you have trouble paying your heating and electricity bill?: No Do you have trouble taking care of your child, family member or friend?: No Do you have trouble with day-to-day activities such as bathing, preparing meals, shopping, managing finances, etc.?: No Are you currently unemployed and looking for a job?: No Are you interested in more education?: No Please select the resources that you would like help with: None Currently or been in a relationship where the following occur: No concerns reported THRIVE Score: 0 AUDIT C Alcohol Use Questionnaire (AUDIT-C) 1. How often do you have a drink containing alcohol?: Never 3. How often do you have six or more drinks on one occasion?: Never Total Score: 0 ADRIANA-7 AMB Questionnaire ADRIANA-7 Date ADRIANA - 7 assessed: 07/12/24 Feeling nervous, anxious, or on edge: 0 = Not at all Not being able to stop or control worryin = Not at all Worrying too much about different things: 0 = Not at all Trouble relaxin = Not at all Being so restless that it is hard to sit still: 0 = Not at all Becoming easily annoyed or irritable: 0 = Not at all Feeling afraid as if something awful might happen: 0 = Not at all Total ADRIANA-7 score (0-4 normal; 5-9 mild; 10-14 moderate; 15-21 severe): 0 Source: Developed by Drs. Jorge Diallo, Yumiko Irvni, Celestino Banda and colleagues, with an educational mari from [employer]. Review of Systems Const Denies headache(s) Eyes Denies loss of vision ENT Denies vertigo, Denies dizziness, Denies headache(s) and Denies sore throat Card Denies chest pain, Denies leg edema and Denies lightheadedness Resp Denies cough, Denies hemoptysis and Denies wheezing GI Denies abdominal pain, Denies melena, Denies constipation, Denies diarrhea and Denies vomiting Denies urinary frequency, Denies dysuria and Denies urinary urgency Musc Denies arthralgias, Denies joint swelling, Denies numbness and Denies tingling Skin/Breast Reports pruritus (all over her body), Reports rash (widespread) and Reports skin swelling (bottom lip) Neuro Denies Abnormal speech present, Denies behavioral changes, Denies vertigo, Denies dizziness, Denies headache(s), Denies loss of vision, Denies memory loss, Denies numbness and Denies tingling Psych Denies anxiety, Denies behavioral changes, Denies depression, Denies memory loss and Denies panic attacks Stanton/Lymph Denies easy bleeding and Denies easy bruising Aller/Immun Denies wheezing Physical exam (Primary Care) Vital Signs: Last Vital Signs Temp 98.6 F 07/12/24 13:02 Pulse 74 07/12/24 13:02 Resp 18 07/12/24 13:02 BP 142/70 H 07/12/24 13:02 Pulse Ox 94 07/12/24 13:02 Oxygen Delivery Method Room Air 07/12/24 13:02 BMI result Body Mass Index 40.8 Tobacco/Smoking Status: Tobacco use Status Tobacco use date assessed 07/12/24 07/12/24 13:11 Patient Tobacco Use Status Never used Tobacco 07/12/24 13:11 Tobacco use type 07/26/23 14:03 e-Cigarette/Vaping Use Never Used 07/12/24 13:11 PHQ-9: PHQ-9 Score PHQ-9: Total score 0 07/12/24 13:11 Depression Screening Interpretation: Negative Thrive Assessment: Date of Thrive Assessment Date Thrive assessed 07/12/24 07/12/24 13:11 Currently or been in a relationship where the following occur: No concerns reported Const General: healthy appearing, no acute distress, alert and awake Nutritional Appearance: well nourished Orientation/consciousness: oriented to person, oriented to place and oriented to time HENMT Ears: TM's normal bilaterally General nose exam: Normal nasal mucous membranes and turbinates present Eyes Conjunctivae: conjunctivae normal Sclerae: sclerae normal Pupils: Equal, round and reactive pupils present Neck Neck: Yes no lymphadenopathy and Yes no JVD Thyroid: Thyroid normal Carotids: no bruits Resp Effort & Inspection: normal respiratory effort and not tachypneic Auscultation: no crackles, no rales, no rhonchi and no wheezes Cardio Rate: regular rate Rhythm: regular rhythm Heart sounds: no murmurs and normal S1 and S2 GI Palpation (GI): Soft to palpation, nontender, no hepatomegaly and no splenomegaly Auscultation: normal bowel sounds Skin General skin exam: no rashes or lesions noted and dry skin Neuro General: oriented to person, oriented to place and oriented to time Cranial nerves: Yes Equal, round and reactive pupils present Speech: No Abnormal speech present Gait exam (Neuro): Normal gait present Motor exam (neuro): no tremor noted Extrem Right upper extremity: full ROM Left upper extremity: full ROM Right lower extremity: full ROM; no edema Left lower extremity: full ROM; no edema Psych Mental Status: mental status grossly normal Speech and movement: Normal speech and movement present Affect: normal affect Attitude: cooperative Thought process: Normal thought process present Coding Level of Care Code Est Pt Level 3 (62272) Diagnoses Urticaria L50.9 Time Spent (min) 29 Assessment & Plan Assessment & Plan (1) Urticaria: Code(s): L50.9 - Urticaria, unspecified Category: Medical Plan: Prednisone taper ordered. Went over the tapering plan with the patient and she verbalized understanding Medications: New prednisone see taper instructions 4 tabs x2 days, then 3 tabs x 2 days, then 2 tabs x 2 days, then 1 tab x 2 days =20 tabs over 8 days 10 mg PO DIRECTED 20 tabs 0RF L50.9 - Urticaria, unspecified
== END 2024-07-12 13:31 | disposition home or self-care (01) ==
LOC: HO.HMCH 12:56
PROVIDERS: PCP Internal Medicine
DX: L50.9 Urticaria, unspecified (principal)

== ENCOUNTER → 2024-07-12 12:56 | Outpatient (BNVA) | payer OTHER, SELFPAY | PROVIDERS: PCP Internal Medicine | DX: L50.9 Urticaria, unspecified (principal) | CPT/HCPCS: 99212 ==

== ENCOUNTER 2024-07-25 08:54 | Outpatient (AMB) | payer OTHER, SELFPAY ==
[2024-07-25 09:11] VITALS: BP 138/78; PULSE 76; O2SAT 97; BMI 41.3
--- NOTE | 2024-07-25 09:11 | MHC.PC.OV ---
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: No Accompanied by: Self / Same As Patient Allergies Penicillins [PENICILLINS] Allergy (Intermediate, Verified 07/25/24 09:39) RASH Medication List - Last Reconciled 07/25/24 by Curt Falk MD acetaminophen 650 mg (2 x 325 mg) PO Q6H PRN 30 days [ADULT PULL-UPS As directed] [ADULT PULL-UPS As directed] albuterol sulfate 2.5 mg (3 mL) inhalation Q6H PRN 30 days albuterol sulfate 90 mcg/actuation 2 inhalations inhalation Q6H PRN 30 days atorvastatin 10 mg PO BEDTIME 90 days blood pressure kit-extra large As directed buprenorphine HCl (Belbuca) 150 mcg buccal Q12H dupilumab (Dupixent) 300 mg subcut Q2W escitalopram oxalate 20 mg PO DAILY 90 days ezetimibe 10 mg PO DAILY fluticasone propion-salmeterol 115-21 mcg/actuation (Advair HFA) 2 puffs inhalation Q12H 30 days ibuprofen 600 mg PO Q8H PRN loratadine 10 mg PO DAILY PRN 90 days lorazepam mg PO BID PRN naloxone 4 mg/actuation (Narcan) 4 mg intranasal Q3M PRN [NEBULIZER and all related supplies As directed] omeprazole 40 mg PO DAILY 90 days trazodone 100 mg PO BEDTIME PRN [wipes As directed] zolpidem 5 mg PO BEDTIME PRN Tobacco use date assessed: 07/25/24 Fall risk assessment: No Falls in past year Last assessed Fall Risk: 07/25/24 Dental Screening Dental Screen Date: 07/25/24 Did you have a dental visit in the last 12 months?: No Did you have a dental problem in the last 6 months where you did not have access to dental care?: No Was dental information given to patient?: No HPI terrible allergies HPI Details Patient comes in today to request for some Rx to help with her allergies States that similar to what she had a couple of years ago before she was started on allergy injections, she has been breaking out again all over in an itchy rash over the past few weeks She has been maintained on allergy immunotherapy with Dupixent for the past couple of years but she stopped getting the allergy injections sometime late last year She started breaking out again in a pruritic generalized rash a couple of months ago and has been taking oral Prednisone on and off since She recently started getting her Dupixent injections again every 2 weeks and just got her second dose last but states that she is still getting recurrent break outs of her rash She was supposedly advised by Dr. Tyson that it may take a while for the immunotherapy to work again so this is not unusual She has been prescribed Hydroxyzine and some other unrecalled Rx by Dr. Tyson in the meantime to help with her symptoms Patient is requesting for some Rx for relief in the meantime She denies any fever or sore throat Denies any chest pains, no SOB No nausea/vomiting, no abdominal pain No change in bowel habits noted PFSH Medical History Abdominal pain Depression Anxiety Insomnia Myalgia, upper arm Osteoarthritis of right knee Lumbar spondylosis Foot pain, bilateral BRIDGETTE (obstructive sleep apnea) Asthma KAMILA positive Urticaria Obesity (BMI 30-39.9) Vitamin D deficiency Chronic interstitial cystitis Irritable bowel syndrome (IBS) Arthralgia Osteoarthritis Esophageal stricture GERD (gastroesophageal reflux disease) Left lumbar radiculopathy CAD (coronary artery disease) Pure hypercholesterolemia Benign essential hypertension Surgical History History of surgery History of total right knee replacement (09/22/21) Hx of cystoscopy Status post balloon dilatation of esophageal stricture (~2005) History of cardiac catheterization History of colonoscopy History of nephrolithotomy with removal of calculi History of tooth extraction Family History Father Hypertension Mother Hypertension Diabetes CVD (cardiovascular disease) Daughter No problems noted. Family/Other FH: mental illness Other Mental health problem Substance abuse Social History Housing: Apartment Are you a primary adult live in caregiver to a significant other at home: No Do you presently have visiting nurse or other home services: No Alcohol intake: never Comment: medicated, see MAR Patient Tobacco Use Status: Never used Tobacco e-Cigarette/Vaping Use: Never Used Second Hand Smoke Exposure: No service: No Current occupational status: disabled Cognitive needs: No Hearing needs: No Vision needs: Yes (Glasses) Questionnaire PHQ-9 Over the last 2 weeks, how often have you been bothered by any of the following problems? 1. Little interest or pleasure in doing things: not at all 2. Feeling down, depressed, or hopeless: not at all 3. Trouble falling or staying asleep, or sleeping too much: not at all 4. Feeling tired or having little energy: not at all 5. Poor appetite or overeating: not at all 6. Feeling bad about yourself - or that you are a failure or have let yourself or your family down: not at all 7. Trouble concentrating on things, such as reading the newspaper or watching television: not at all 8. Moving or speaking so slowly that other people could have noticed. Or the opposite - being so fidgety or restless that you have been moving around a lot more than usual: not at all 9. Thoughts that you would be better off or of hurting yourself in some way: not at all Total score: 0 Depression Screening Interpretation: Negative Depression Screening Done: Yes 00350 - PHQ-9 Billing: Yes Source: Developed by Drs. Jorge Diallo, Yumiko Irvin, Celestino Banda and colleagues, with an educational mari from [employer]. Thrive Questionnaire Date Thrive assessed: 07/25/24 I am a: Patient What is your living situation today?: I have a steady place to live Within the past 12 months, did the food you bought not last and you didn't have the money to get more?: Never true Within the past 12 months, did you worry whether your food would run out before you got money to buy more?: Never true Do you have trouble paying for medicines?: No Do you have trouble getting transportation to medical appointments?: No Do you have trouble paying your heating and electricity bill?: No Do you have trouble taking care of your child, family member or friend?: No Do you have trouble with day-to-day activities such as bathing, preparing meals, shopping, managing finances, etc.?: No Are you currently unemployed and looking for a job?: No Are you interested in more education?: No Please select the resources that you would like help with: None Currently or been in a relationship where the following occur: No concerns reported THRIVE Score: 0 AUDIT C Alcohol Use Questionnaire (AUDIT-C) 1. How often do you have a drink containing alcohol?: Never 3. How often do you have six or more drinks on one occasion?: Never Total Score: 0 Score Reviewed/Action Taken: Yes ADRIANA-7 AMB Questionnaire ADRIANA-7 Date ADRIANA - 7 assessed: 07/25/24 Feeling nervous, anxious, or on edge: 0 = Not at all Not being able to stop or control worryin = Not at all Worrying too much about different things: 0 = Not at all Trouble relaxin = Not at all Being so restless that it is hard to sit still: 0 = Not at all Becoming easily annoyed or irritable: 0 = Not at all Feeling afraid as if something awful might happen: 0 = Not at all Total ADRIANA-7 score (0-4 normal; 5-9 mild; 10-14 moderate; 15-21 severe): 0 Source: Developed by Drs. Jorge Diallo, Yumiko Irvin, Celestino Banda and colleagues, with an educational mari from [employer]. Review of Systems Const Denies chills, Denies fatigue, Denies fever(s) and Denies headache(s) ENT Denies dysphagia, Denies dizziness, Denies otalgia, Denies headache(s), Denies neck pain, Denies odynophagia and Denies sore throat Card Denies chest pain, Denies palpitations and Denies dyspnea Resp Denies chest congestion, Denies cough and Denies dyspnea GI Denies abdominal pain, Denies constipation, Denies dysphagia, Denies heartburn, Denies diarrhea, Denies nausea, Denies odynophagia and Denies vomiting Denies difficulty voiding, Reports nocturia, Reports dysuria (on and off - has chronic IC - symptoms have improved slightly with Botox) and Reports urinary urgency (at times) Musc Reports back pain (over the right lower back), Reports arthralgias (involving multiple joints - right knee and hip and right shoulder), Denies neck pain and Reports radiating pain into limb (into the right thigh and leg; right shoulder pain going into neck/arm) Skin/Breast Details: (+) scattered itchy rash all over Reports pruritus Neuro Denies dizziness and Denies headache(s) Psych Denies anxiety Endo Denies fatigue and Denies palpitations Physical exam (Primary Care) Vital Signs: Last Vital Signs Pulse 76 07/25/24 09:11 BP 138/78 07/25/24 09:11 Pulse Ox 97 07/25/24 09:11 Oxygen Delivery Method Room Air 07/25/24 09:11 BMI result Body Mass Index 41.3 Tobacco/Smoking Status: Tobacco use Status Tobacco use date assessed 07/25/24 07/25/24 09:18 Patient Tobacco Use Status Never used Tobacco 07/25/24 09:18 Tobacco use type 07/26/23 14:03 e-Cigarette/Vaping Use Never Used 07/25/24 09:18 PHQ-9: PHQ-9 Score PHQ-9: Total score 0 07/25/24 09:18 Depression Screening Interpretation: Negative Thrive Assessment: Date of Thrive Assessment Date Thrive assessed 07/25/24 07/25/24 09:18 Currently or been in a relationship where the following occur: No concerns reported Const General: no acute distress and alert HENMT Throat: Yes posterior oropharynx normal and Yes tonsils normal (no TP congestion noted) Neck Neck: Yes supple and No lymphadenopathy Thyroid: Thyroid normal Resp Auscultation: clear to auscultation bilaterally, no rales and no wheezes Cardio Rate: regular rate Rhythm: regular rhythm Heart sounds: no murmurs GI Palpation (GI): Soft to palpation and nontender Auscultation: normal bowel sounds General: Yes no CVA tenderness Back/Spine/Pelvis Back: no CVA tenderness Thoracic/Lumbar Spine: paraspinal muscle tenderness on the right and lumbar spinal tenderness (chronic) Skin Other: (+) scattered erythematous pruritic papular rash all over Extrem General: Yes no clubbing, cyanosis or edema Right upper extremity: shoulder/upper arm Details: tenderness Location: of the A-C joint and abnormal ROM (ROM limited due to pain - unable to raise right arm above shoulder level) Right lower extremity: knee Details: tenderness; no swelling Left lower extremity: knee Details: tenderness; no swelling Coding Level of Care Code Est Pt Level 4 (28222) Diagnoses Urticarial rash L50.9 Additional Codes PHQ-9 - 54971 - PHQ-9 Billing: Yes ([id number]) Assessment & Plan Assessment & Plan (1) Urticarial rash: Code(s): L50.9 - Urticaria, unspecified Category: Medical Plan: Patient was just started back on immunotherapy with Dupixent by Dr. Tyson - she is currently receiving Dupixent 300 mg every 2 weeks Continue Hydroxyzine Will start her additionally on Montelukast 10 mg Q PM Will start her as well on oral Prednisone 10 mg taper over a 12 day period Will send her as well for some labs DESEAN for further evaluation - lab will include a repeat IgE Ab level Plan Follow up as scheduled in a few weeks on 08/14/2024 Orders: Orders IgE Antibody (Anti-IgE IgG) Today L50.9 - Urticaria, unspecified Complete Blood Count Auto Diff Today L50.9 - Urticaria, unspecified Erythrocyte Sedimentation Rate Today L50.9 - Urticaria, unspecified Medications: New prednisone 4 tablets x 3 days, then 3 tablets x 3 days, then 2 tablets x 3 days, then 1 tablet x 3 days 12 days 33 ea 0RF J45.901 - Unspecified asthma with (acute) exacerbation, M25.50 - Pain in unspecified joint montelukast 10 mg PO QPM 90 days 90 tabs 1RF
--- OUTSIDE RECORDS SUMMARY | 2024-07-25 09:20 | XMS_ITS | Data Portability ---
Author Organization [employer] [place] [employer] Address [address] [place] [address] Care Team Providers Care Donor Support Technician Name Role Phone HIM CCA OTHER BECKY SPAIN Primary Care Provider Assessment Encounter Date Assessment Date Assessment LastModified [...] Orders prednisone 20 mg tablet 2023 024 [facility] #[id number], [address] [place], [address], 18:26:49 Patient TargetsNo targets recorded. Patient InstructionsNo instructions recorded. Reason for Referral None Reported. Medical Equipment None Reported. Allergies Allergen ID Allergen Name Allergen Category Reaction Reaction Severity Criticality Documentation Date Start Date Code Code System Note Provider Name and Address Organization Details Recorded Time 0991 Product containin g penicilli n (product) medicatio n Not available Not available Not available 02/14/2024 73640 8001 SNOMED Not Available [facility] 03:44:38 8489 aspirin medicatio n Not available Not available Not available 02/14/2024 1191 RxNorm Not Available [facility] - production 4 03:44:38 Medications Name Sig [...] Not Available [facility] - production 4 18:02:15 Date Recorded Heart rate Body temperature Respiratory rate Oxygen saturation Oxygen saturation in Arterial blood by Pulse oximetry Systolic blood pressure Diastolic blood pressure Provider Name and Address Organization Details Last Updated DateTime 5 85 /min 98.2 [degF] 16 /min 96 % 96 % 145 mm[Hg] 70 mm[Hg] Not Available [facility] - production 5 18:15:34 Social History None recorded. Functional Status None recorded. Mental Status None recorded. Family History Nothing Reported. Medical History No medical history recorded. Gynecological HistoryNo gynecological history recorded. Obstetrics History GPAL:G 0 P 0 0 0 0 Past Encounters Encounter ID Performer Location Encounter Start Date Encounter Closed Date Diagnosis/Indication Diagnosis SNOMED-CT Code Diagnosis ICD10 Code Diagnosis Note [id number] Efrain Gomez MD [facility] [address] [place] [phone] 05/19/2023 18:01:49 05/20/2023 11:31:35 Exacerbation of intermittent asthma 127148594 J45.21 [id number] Iris Boo MD [facility] - [facility] [address] [place] [phone] 07/23/2024 18:15:24 07/23/2024 19:53:44 Pruritic rash [id number] L28.2 69 year old female being evaluated for a year of intermitte nt pruritic rash. Patient reports having a full body rash that comes and goes, has been seen by mutliple doctors including wildlife removal specialist s, and tried multiple antihistam ofe without relief. Had been on prednisone for a year which was controllin g the symptoms, however after being discontinu ed the patient reports the rash has returned. Was recently seen in an urgent care and prescribed a few days of prednisone , and her rash is currently resolved. Patient denies respirator y symptoms associated with rash. Exam notable for normal vital signs, no rash currently. Presentati on consistent with possible hives or allergic reaction of unclear etiology, unresponsi ve to antihistam ofe, only responsive to prednisone . Patient is currently asymptomat ic after taking prednisone for the last 2 days, recommend patient continue work up and management of this concern with her outpatient team. Patient stable to monitor symptoms at home. I have reviewed and agree with the assessment and plan as documented by the respooler. I provided real-time medical direction for this encounter and was immediatel y available to provide additional phone-base d assistance as needed. We discussed the diagnostic uncertaint y of home visits and associated risks. We discussed the need to seek care urgently/e mergently in the setting of any new or worsening symptoms. Health Concerns Section Related Observation LastModified by Organization Detai ls LastModified Time None Recorded Concern Status LastModified by Organization Details LastModified Time None Recorded Advance Directives Directive None Recorded Payers Encounter Date Sequence Insurance Name Policy Number Policy Davidson Covered Member ID Davidson Member ID Guarantor Name 05/19/2023 1 [facility] - DOS ON OR AFTER 2022 - DUAL ELIGIBLE - [facility] OPTIONS AND ONE CARE (MEDICARE REPLACEMENT/ADV ANTAGE - HMO) Celia Parikhgarrettsuzy [id number] Celia Phillips Ziggyarchanaamy 07/23/2024 1 [facility] - DOS ON OR AFTER 2022 - DUAL ELIGIBLE - [facility] OPTIONS AND ONE CARE (MEDICARE REPLACEMENT/ADV ANTAGE - HMO) Celia Parikhgarrettarchanaamy [id number] Celia Phillips Ziggysuzy Notes Date Note Type Note Provider Name [...] cough, sore throat, fever. Member called her room service food server, and she cannot be seen until June. Member requesting home visit. Member advised to call 911 with any worsening symptoms. PMH: includes but not limited to HTN, coronary artery disease, asthma, IBD, GERD, anxiety ..................... ..................... ..................... ..................... ..................... ..................... ............... [facility] Nurse Triage Notes (Leonor Vizcaino): Comments: No further information required to process visit. ..................... ..................... ..................... ..................... ..................... ..................... ............... Clinical Outcomes Manager Note From Yuri Bedolla: Encountered patient conscious, [...] performed, both resulted negative; results relayed to [facility]. Skin warm, dry and of appropriate color for ethnicity. Head and neck, free of trauma and edema. ? JVD. Breath sounds diminished in all hopper and exhibit faint expiratory wheezes in the apexes bilaterally. Abdomen soft, non-tender and non-distended. extremities, free of trauma and edema. [facility] contacted: Duoneb treatment administered. 12 lead EKG performed: sinus rhythm with septal T-wave inversion noted. 30 mg of PO prednisone administered. [facility] to write prescription for further treatment at [...] would also like to remain at home. Clinical Outcomes Manager Allergies: Penicillin, Aspirin ..................... ..................... ..................... ..................... ..................... ..................... ............... Disposition: Fulfilled Efrain Gomez MD [address] [facility],[address], [place], [address], [employer] 05/19/2023 19:03:41 07/23/2024 text/html [facility] Nurse Triage Notes (Vasu Valenzuela): Reason For Request: allergies/allergic reaction Patient Reports: Rash Denies: Quintanilla ? Flash, circumferential quintanilla Quintanilla reported with black tissue to the area Open skin area after a fall with uncontrolled bleeding Abscess/infection with streaking noted, presence of fever or without History of cellulitis, isolated redness noted Fever and chills noted in setting of wound Bites -bugs, spider Abscess Chief Complaints: Wound Care, Rash PMH: Congestive Heart Failure, Coronary Artery Disease, Hypertension PMH Reviewed at 07/23/2024 15:33 Allergies Reviewed at 07/23/2024:33 Comments: 69 y.o female complains of Wound Care/Rash Pt reports feeling unwell having a Allergy. Same started 2 years ago - On/off - Topical rash - Redness with itchiness - Burning - All over body and on lips. Hx of needing prednisone - Denies SOB - Denies difficultly swallowing - Denies fever - Report trying cream etc with no relief. Wellness check requested I provided information on the mobile health provider response time and advised the patient and/or caregiver to monitor reported signs and symptoms. I discussed the warning signs of when to seek emergency care. ..................... ..................... ..................... ..................... ..................... ..................... ............... Clinical Outcomes Manager Note From Bradford Solorio: This 69-year-old female with a history including but not limited to CHF, CAD, HTN requested a visit today to address an ongoing rash. Patient states she is had this intermittent rash throughout her whole body for over three years, has seen PCP and dermatology. Patient states she was put on 20 mg a day of prednisone for one year which seemed to keep the rash at bay. Patient states her PCP and dermatologists have told her that they will not prescribe additional prednisone because of the risks. Patient states the bail attacher started her on Dupixent injections every two weeks. Patient has had two injections in the bail attacher states that this could take two to three months before it starts working. Patient states she went to [facility] over the weekend and was prescribed three days of prednisone 20 mg. Patient has one additional dose of prednisone for tomorrow and a PCP follow-up on Tuesday. Patient states that since she started taking the prednisone Barash is dissipated and almost completely resolved. Patient denies any chest pain, shortness of breath, dysphagia, fevers, nausea, vomiting, diarrhea. Patient presents awake and alert, in no acute distress and speaking full sentences. Her vital signs are reasonably stable and she is afebrile. Nonfocal neurological exam. Normal gait. Normal oropharynx exam. Lungs are clear throughout auscultation. Abdomen is soft, nontender, nondistended. No lower extremity edema. Pictures from the patient's phone from a few days ago are uploaded (urticaria looking rash on palms/wrists). We discussed the diagnostic uncertainty of home visits and the risk associated with this. In this case, the patient and I felt this to be an acceptable and reasonable amount of risk given the benefit of avoiding an ED visit. I recommend the patient discuss a long-term care plan with her PCP on Tuesday and involve the bail attacher if necessary. I instructed her to present to the emergency department for any new or worsening severe symptoms such as chest pain, shortness of breath, dysphagia, high fever, altered mental status. The patient was given the opportunity to ask questions and is agreeable to this plan. ..................... ..................... ..................... ..................... ..................... ..................... ............... [facility] Consulted: Iris Boo ..................... ..................... ..................... ..................... ..................... ..................... ............... Disposition: Fulfilled Iris Boo MD [address] [facility], [place], [address], [employer] [facility] 07/23/2024 19:23:45 OBGyn Episode No OBEpisode recorded.
--- OUTSIDE RECORDS SUMMARY | 2024-07-25 09:20 | XMS_ITS | Clinical Summary ---
Author Organization [facility] [place] [address] Phone Care Team Providers Care Shackler Name Role Phone Curt Falk MD Primary Care Provider [phone] Allergies Active Allergy Reactions Criticality Noted Date Comments Penicillins Rash 07/24/2024 Medications acetaminophen (TYLENOL) 325 mg tablet Take 2 tablets (650 mg total) by mouth every 6 (six) hours if needed. Active albuterol HFA (PROAIR HFA ; PROVENTIL HFA ; VENTOLIN HFA) 90 mcg/actuation inhaler Inhale 2 puffs by mouth every 4 (four) hours if needed. Active atorvastatin (LIPITOR) 10 mg tablet Take 1 tablet (10 mg total) by mouth at bedtime. Active benzonatate (TESSALON) 200 mg capsule Take 1 capsule (200 mg total) by mouth 3 (three) times a day if needed. 07/14/2023 Active buprenorphine HCL [address] 150 mcg into mouth between cheek and gum 2 (two) times a day. Max Daily Amount: 300 mcg Active clonazePAM (KlonoPIN) 1 mg tablet Take 0.5 mg by mouth 3 (three) times a day. Max Daily Amount: 1.5 mg Active fluticasone furoate-vilante roL (BREO ELLIPTA) 200-25 mcg/dose inhaler Inhale 1 puff by mouth 1 (one) time each day if needed. Active LORazepam (ATIVAN) 0.5 mg tablet Take 1 tablet (0.5 mg total) by mouth every 8 (eight) hours if needed. Max Daily Amount: 1.5 mg Active omeprazole (PriLOSEC) [address] capsule Take 1 capsule (40 mg total) by mouth 1 (one) time each day. Active traZODone (DESYREL) 100 mg tablet Take 1 tablet (100 mg total) by mouth at bedtime. Active zolpidem (AMBIEN) 5 mg tablet Take by mouth at bedtime as needed for sleep. Active Surgical History Surgery Date Site/Laterality Comments OTHER SURGICAL HISTORY PROCEDURE: HISTORY OTHER; COMMENT: COLONOSCOPY OTHER SURGICAL HISTORY PROCEDURE: HISTORY OTHER; COMMENT: TOOTH EXTRACTION OTHER SURGICAL HISTORY 09/22/2021 PROCEDURE: HISTORY OTHER; COMMENT: TOTAL KNEE REPLACEMENT OTHER SURGICAL HISTORY PROCEDURE: HISTORY OTHER; COMMENT: CYSTOSCOPY HYSTERECTOMY Medical History Medical History Date Comments Depression DX:Depression Asthma DX:Asthma Foot pain, bilateral DX:Foot heidy n, bilateral GERD (gastroesophageal reflux disease) DX:GERD (gastroesophageal reflux disease) Insomnia DX:Insomnia Arthralgia DX:Arthralgia KAMILA positive DX:KAMILA positive BRIDGETTE (obstructive sleep apnea) DX :BRIDGETTE (obstructive sleep apnea) Osteoarthritis DX:Osteoarthriti s; COMMENT: OF RIGHT KNEE Vitamin D deficiency DX:Vitamin D deficiency Urticaria DX:Urticaria Chronic interstitial cystitis DX :Chronic interstitial cystitis Anxiety Family History Medical History Relation Name Comments [...] - Inhaled Oxygen Concentration - - Weight 93 kg (205 lb) 07/24/2024 1:00 PM EDT Height 149.9 cm (4' 11 ) 07/24/2024 1:00 PM EDT Body Mass Index 41.4 07/24/2024 1:00 PM EDT Plan of Treatment Upcoming Encounters Date Type Department Care Team (Late st Contact Info) Description 07/31/2024 10:30 AM EDT Hospital Encounter [facility] [place] [address] [place] [phone] Quang Hurd MD [address] [address] 07/31/2024 10:30 AM EDT - 07/31/2024 12:00 PM EDT Surgery [facility] [place] [address] [place] [phone] Quang Hurd MD [facility] [address] [address] SACRAL NEUROMODULATOR STAGE 1 [81396 (CPT??) +1 more] 08/15/2024 9:00 AM EDT Hospital Encounter [facility] [place] [address] [place] [phone] Quang Hurd MD [address] [address] 08/15/2024 9:00 AM EDT - 08/15/2024 10:30 AM EDT Surgery [facility] [place] [address] [place] [phone] Quang Hurd MD [address] [address] SACRAL NEUROMODULATOR STAGE 2 [[address] (CPT??) +1 more] Scheduled Procedures Name Priority Associated Diagnoses Date/Ti me IMPLANTATION STIMULATOR BLADDER Overactive bladder 07/31/2024 10:30 AM EDT IMPLANTATION STIMULATOR BLADDER Overactive bladder 08/15/2024 9:00 AM EDT Health Maintenance Due Date Last Done Comments Breast Cancer Screening 1955 Pneumococcal Vaccine: 50+ Ye ars (1 of 1 - PCV) 2004 Zoster Vaccines (1 of 2) 2004 RSV Immunization Adult Patie nts (1 - Risk 60-74 years 1-dose series) 2014 Cholesterol Screening (Lipid Panel) 03/21/2022 Colorectal Cancer Screening: Colonoscopy 03/21/2022 Depression Screening 03/21/2022 Falls Risk Assessment 03/21/2022 Hepatitis C Screening 03/21/2022 Osteoporosis Screening (Bone Density Screening) 03/21/2022 Social Influencers of Health Screening 03/21/2022 COVID-19 Vaccine (1 - 2023-2 5 season) 2023 Influenza Vaccine (Season Ended) 2024 DTaP,Tdap,and Td Vaccines (2 - Td or Tdap) 01/27/2026 01/28/2016 HIB Vaccines Aged Out No longer eligi [...] age to complete this topic Meningococcal B Vaccine Aged Out No l onger eligible based on patient's age to complete this topic RSV Immunization Patients Un rodri 20 months Aged Out No longer eligible b ased on patient's age to complete this topic Varicella Vaccines Aged Out No longer eligible based on patient's age to complete this topic Insurance MEDICAID - [place] Care Teams Shackler Relationship Specialty Start Date End Date Curt Falk MD [address] [place] [address] [address] [place], [place] PCP - General 07/16/21
--- OUTSIDE RECORDS SUMMARY | 2024-07-25 09:20 | XMS_ITS | Continuity of Care Document ---
Author Organization [employer] Address [address] [place] [address] Phone Care Team Providers Care Telegraph Installer Name Role Phone Leonor Yousif DMD Unavailable [...] Diagnoses Date Provider Providers Copied on Encounter [facility], [address], [place], [id number], [place] tel:[phone] [facility] Encounter for dental examination and cleaning with abnormal findingsTobacco abuse counselingOther specified counselingRisk for dental caries, highDietary counseling and surveillance David Galvez. [address], [place], [id number], [place]. tel:[phone] Family History Family Member Type Diagnosis Age At Onset No Information Payers Payer name Insurance type Covered constitution party ID Omid otero(s) [facility] OP [id number] DENTICAL [id number] Social History Type Description Quantity Date Captured [...]
--- OUTSIDE RECORDS SUMMARY | 2024-07-25 09:21 | XMS_ITS | Continuity of Care Document ---
Author Organization [employer] [facility] Address [address] [place] [address] Care Team Providers Care Service Unit Operator Oil Well Name Role Phone HIM CCA OTHER BECKY SPAIN Primary Care Provider [phone] Assessment No assessment recorded. Plan of Treatment Reminders Order Date Submit Date Provider Last Modified By Organization Details Last Modified Time Details Appointments None record ed. Lab None record ed. Referral None record ed. Procedures None record ed. Surgeries None record ed. Imaging None record ed. Medication Orders None record ed. Patient TargetsNo targets recorded. Patient InstructionsNo instructions recorded. Reason for Referral None Reported. Medical Equipment None Reported. Allergies Allergen ID Allergen Name Allergen Category Reaction Reaction Severity Criticality Documentation Date Start Date Code Code System Note Provider Name and Address Organization Details Recorded Time 8488 Product containin g penicilli n (product) medicatio n Not available Not available Not available 02/14/2024 86563 8001 SNOMED Not Available [facility] - production 4 03:44:38 8489 aspirin medicatio [...] SNOMED-CT Code Diagnosis ICD10 Code Diagnosis Note [id number] Iris Boo MD [facility] - [facility] [address] [place] [phone] 07/23/2024 18:15:24 07/23/2024 19:53:44 Pruritic rash [id number] L28.2 69 year old female being evaluated for a year of intermitte nt pruritic rash. Patient reports having a full body rash that comes and goes, has been seen by mutliple doctors including digital content specialist s, and tried multiple antihistam ofe [...] assessment and plan as documented by the motor home electrical foreman. I provided real-time medical direction for this [...] by Organization Details LastModified Time None Recorded Payers Encounter Date Sequence Insurance Name Policy Number Policy Davidson Covered Member ID Davidson Member ID Guarantor Name 07/23/2024 1 [facility] - DOS ON OR AFTER 2022 - DUAL ELIGIBLE - RETIREMENT OPTIONS AND ONE CARE (MEDICARE REPLACEMENT/ADV ANTAGE - HMO) Celia Madrigal [id number] Celia Madrigal Notes Date Note Type Note Provider Name and Address Organization Details Recorded Time 07/23/2024 text/html [facility] Nurse Triage Notes (Vasu [...] Artery Disease, Hypertension PMH Reviewed at 07/23/2024 - 15:33 Allergies Reviewed at 07/23/2024 - 15:33 Comments: 69 y.o female complains of Wound [...] ..................... ..................... ..................... ..................... ..................... ..................... ............... Matching Machine Operator Note From Bradford Solorio: This 69-year-old female [...] because of the risks. Patient states the controls designer started her on Dupixent injections every two weeks. Patient has had two injections in the controls designer states that this could take two to three months before it starts working. Patient states she went to [facility] over the weekend and was prescribed three [...] her PCP on Tuesday and involve the controls designer if necessary. I instructed her to present to the emergency department for any new or worsening severe symptoms such as chest pain, shortness of breath, dysphagia, high fever, altered mental status. The patient was given the opportunity to ask questions and is agreeable to this plan. ..................... ..................... ..................... ..................... ..................... ..................... ............... [facility] Consulted: Iris Boo ..................... ..................... ..................... ..................... ..................... ..................... ............... Disposition: Luann Boo MD [address] [facility],[address], [place], [address], [employer] 07/23/2024 19:23:45 OBGyn Episode No OBEpisode recorded.
== END 2024-07-25 09:46 | disposition home or self-care (01) ==
LOC: HO.HMCH 08:54
PROVIDERS: PCP Internal Medicine; Visit Provider Internal Medicine
DX: L50.9 Urticaria, unspecified (principal)

== ENCOUNTER 2024-07-25 08:54 | Outpatient (REF) | payer OTHER, SELFPAY ==
[2024-07-25 10:15] LABS: MANUAL DIFF FLAG NO
[2024-07-25 10:27] LABS: Basophils Absolute Auto 0.1 X10*3/uL (0.0-0.2); Basophils Percent Auto 0.4 % (0-2); Eosinophils Absolute Auto 0.4 X10*3/uL (0.0-0.4); Eosinophils Percent Auto 3.3 % (0-4); Hematocrit 38.1 % (37.0-47.0); Hemoglobin 11.8 g/dl (12.0-16.0); Imm Gran Abs Auto 0.11 X10*3/uL (0.00-0.03); Lymphocytes Absolute Auto 3.2 X10*3/uL (1.2-4.9); Lymphocytes Percent Auto 27.6 % (20-40); Mean Corpuscular Hemoglobin 26.6 pg (27.0-33.0); Mean Corpuscular Volume 85.8 fL (80.0-98.0); Mean Platelet Volume 10.2 fL (9.4-12.3); Monocytes Absolute Auto 0.6 X10*3/uL (0.1-1.2); Monocytes Percent Auto 5.1 % (2-11); Neutrophils Absolute Auto 7.2 x10*3/uL (2.0-8.3); Neutrophils Percent Auto 62.6 % (45-73); Platelet Count 238 X10*3/uL (160-400); Red Blood Count 4.44 X10*6/uL (4.20-5.50); Red Cell Distribution Width 14.6 % (11.0-16.0); White Blood Count 11.6 X10*3/uL (4.8-10.8)
[2024-07-25 10:52] LABS: Estimated Average Glucose 120 mg/dL; Hemoglobin A1C 123.3386 umol/L; Hemoglobin A1c % 5.8 % (<6.0); Total Hemoglobin (HGBA1C) 3122.8586 umol/L
--- OUTSIDE RECORDS SUMMARY | 2024-07-25 11:14 | XMS_ITS | Continuity of Care Document ---
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 Name Role Phone Maura Pemberton Unavailable Unavail able Allergies, Adverse Reactions, Alerts Substance Reaction Status Criticality No Known Allergies Active No Inform ation Medications Medication Instructions Dosage Effective Dates (start - stop) Status Comments FLUTICASONE PROP 50 MCG SPRAY instill 2 spray into each nostril once daily - Active lnwphkza-uscwwrvjt-m ydrocort 3.5 mg/mL-10,000 unit/mL-1 % ear solution [...] spray into each nostril once daily - No Longer Active Procedures Procedure Date [...] With Patient And O r Family [facility] Psychotherapy, 30 Min With Patient And O r Family [facility] Non-Billable Phone Consultation Psychotherapy, 30 Min With Patient And O r Family [facility] Psychotherapy, 45 Min With Patient And [...] With Patient And O r Family [facility] VENIPUNCTURE LIMITED EXAM,ESTAB PAT. Psychotherapy, 30 Min With Patient And O r Family [facility] HEMOGLOBIN (HGB) INTERMED EXAM,ESTAB PAT EAR [...] Provider Providers Copied on Encounter [facility], [address] [place], [address], [place] tel: [phone] [facility] No Information 5 Virajjessica Maura. [address], [place], [id number], [place]. tel:[phone] LIMITED EXAM,ESTAB PAT. [facility], [address] [place], [address], [place] tel: [phone] [facility] HPI (chief complaint) Acute otitis externa of right ear, unspecified typeAcute coughAcute tonsillitis, unspecified etiologyHyper tensionHypoth yroidism, unspecifiedHy perlipidemia, unspecifiedSy mptomatic varicose veins of both lower extremitiesDe ntal decayPrediabe tesHealthcare maintenance 5 Resident Internal Med. . LIMITED EXAM,ESTAB PAT. [facility], [address] [place], [address], [place] tel: [phone] [facility] Cough (chief complaint)MOSES (chief complaint)hpi (chief complaint) Encounter for screening, unspecifiedAc jasiel otitis externa of right ear, unspecified typeAcute coughAcute tonsillitis, unspecified etiology 5 Enrico Saravia. [address] [place], [id number], [place]. tel:[phone] [facility], [address] [place] [address], [address], [place] tel: [phone] [facility] No Information 5 Noe Lopez. [address] [place] [place], [id number], [place]. tel:[phone] [facility], [address] [place] [address], [address], [place] tel: [phone] [facility] No Information 4 Noe Lopez. [address], [place], [id number], [place]. tel:[phone] INTERMED EXAM,ESTAB [facility], [address] [place], [address], [place] tel: [phone] [facility] hypertension (chief complaint)hcm (chief complaint)HPI (chief complaint) HypertensionH ypothyroidism , unspecifiedHy perlipidemia, unspecifiedSy mptomatic varicose veins of both lower extremitiesDe ntal decayPrediabe tesHealthcare maintenanceAl lergic rhinitisImpac jessie cerumen, unspecified earAcute otitis externa of right ear, unspecified type 4 Resident Internal Med. . [facility], [address] [place], [address], [place] tel: [phone] [facility] No Information 4 Jaquelin Lorenzo. [address], [place], [id number], [place]. [phone] LIMITED EXAM,[facility]. [facility], [address] [place], [address], [place] tel: [phone] [facility] HTN F/u (chief complaint) Body mass index [BMI] 28.0-28.9, adultHyperten sara 4 Resident Internal Med. . INTERMED EXAM,[facility], [address] [place], [address], [place] tel: [phone] [facility] hypertension (chief complaint)thy roid (chief complaint)HCM (chief complaint)hpi (chief complaint) Hypothyroidis m, unspecifiedHy perlipidemia, unspecifiedEs sential (primary) hypertensionS ymptomatic varicose veins of both lower extremitiesHe althcare maintenance east screeningOste oporosis screeningEnco unter for immunizationD ental decayPrediabe lui 4 Resident Internal Med. . [facility], [address] [place], [address], [place] tel: [phone] [facility] Counseling, unspecified Dec-0 6-202 3 Health Education. . [facility], [address] [place], [address], [place] tel:[phone] [facility] Counseling, unspecified 3 Health Education. . INTERMED EXAM,[facility], [address] [place], [address], [place] tel:[phone] [facility] varicose veins (chief complaint) Symptomatic varicose veins of both lower extremitiesEs sential (primary) hypertensionH yperlipidemia , unspecifiedHy pothyroidism, unspecified Feb- 3 Resident Internal Med. . INTERMED EXAM, [facility], [address] [place], [address], [place] tel:[phone] [facility] hypertension (chief complaint)hyp erlipidemia (chief complaint)Thy roid problems (chief complaint) Healthcare maintenanceHy pothyroidism, unspecifiedHy perlipidemia, unspecifiedHy pertensionBod y mass index [BMI] 28.0-28.9, adultImmuniza tion not carried out because of patient refusalEncoun ter for immunizationS easonal allergies 3 Resident Internal Med. . [facility], [address] [place], [address], [place] tel:[phone] [facility] No Information 3 [facility]. [address] [place], [address], [place]. tel:[phone] Psychotherap y, 30 Min With Patient And Or Family M [facility], [address] [place], [address], [place] tel:[phone] [facility] Adjustment disorder with mixed anxiety and depressed mood 3 Fredrick Bradford. [address], [place], [id number], [place]. tel:[phone] Psychotherap y, 30 Min With Patient And Or Family M [facility], [address] [place], [address], [place] [phone] [facility] Adjustment disorder with mixed anxiety and depressed mood 3 Fredrick Suzette. [address] [place], [place], [id number], [place]. tel:[phone] [facility], [address] [place], [address], [place] tel:[phone] [facility] No Information 2 Management Case. [address], [place], [id number], [place]. tel:[phone] Psychotherap y, 30 Min With Patient And Or Family M [facility], [address] [place], [address], [place] [phone] [facility] Adjustment disorder with anxiety 2 Fredrick Suzette. [address], [id number], [place]. tel:[phone] Psychotherap y, 45 Min With Patient And Or Family M [facility], [address] [place], [address], [place] [phone] [facility] Adjustment disorder with mixed anxiety and depressed mood 2 Fredrick Suzette. [address], [place], [id number], [place]. tel:[phone] Psychotherap y, 45 Min With Patient And Or Family M [facility], [address] [place], [address], [place] tel:[phone] [facility] Adjustment disorder with mixed anxiety and depressed mood 2 Fredrick Suzette. [address] [place], [id number], [place]. tel:[phone] INTERMED EXAM,ESTAB PAT [facility], [address] [place], [address], [place] [phone] [facility] Eye problems (chief complaint)Hyp othyroidism (chief complaint)HCM (chief complaint) Immunization not carried out because of patient refusalHypoth yroidism, unspecifiedBl epharitis of upper eyelids of both eyes, unspecified typeHypertens ionHyperlipid emia, unspecifiedAl lergic conjunctiviti s, bilateralPain of right eyeEncounter for immunization 2 Resident MED/PED. . Psychotherap y, 60 Min With Patient And Or Family M [facility], [address] [place], [address], [place] tel: [phone] [facility] Adjustment disorder with mixed anxiety and depressed mood 2 Fredrick Suzette. [address] [facility] [place], [id number], [place]. tel:[phone] Psychotherap y, 60 Min With Patient And Or Family M [facility], [address] [place], [address], [place] tel: [phone] [facility] Adjustment disorder with mixed anxiety and depressed mood 2 Fredrick Suzette. [address] [place], [id number], [place]. tel:[phone] Psychotherap y, 60 Min With Patient And Or Family M [facility], [address] [place], [address], [place] tel: [phone] [facility] Adjustment disorder with mixed anxiety and depressed mood Sep-3 2 Fredrick Suzette. [address], [place], [id number], [place]. tel:[phone] Psychotherap y, 45 Min With Patient And Or Family M [facility], [address] [place], [address], [place] tel: [phone] [facility] Adjustment disorder with mixed anxiety and depressed mood Sep-2 2 Fredrick Suzette. [address], [place], [id number], [place]. tel:[phone] Psychotherap y, 60 Min With Patient And Or Family M [facility], [address] [place], [address], [place] tel: [phone] [facility] Adjustment disorder with mixed anxiety and depressed mood Sep-1 2 Fredrick Suzette. [address] [place], [place], [id number], [place]. tel:[phone] Psychotherap y, 60 Min With Patient And Or Family M [facility], [address] [place], [address], [place] tel: [phone] [facility] Adjustment disorder with mixed anxiety and depressed mood Sep-0 2 Fredrick Suzette. [address], [place], [id number], [place]. tel:[phone] [facility], [address] [place], [address], [place] tel: [phone] [facility] Blepharitis of upper eyelids of both eyes, unspecified typeSevere myopia, rightMyopia, leftAstigmati sm of both eyes, unspecified typePresbyopi a Sep-0 2 Jose E Silva. [address], [place], [id number], [place]. tel:[phone] Psychotherap y, 60 Min With Patient And Or Family M [facility], [address] [place], [address], [place] tel: [phone] [facility] Adjustment disorder with mixed anxiety and depressed mood Sep-0 2 Fredrick Suzette. [address] [place], [place], [id number], [place]. tel:[phone] Psychotherap y, 60 Min With Patient And Or Family M [facility], [address] [place], [address], [place] tel: [phone] [facility] depression (chief complaint) Adjustment disorder with mixed anxiety and depressed mood Aug- 2 Fredrick Suzette. [address] [place], [place], [id number], [place]. tel:[phone] [facility], [address] [place], [address], [place] tel:[phone] [facility] No Information 2 Management Case. [address], [place], [id number], [place]. [phone] [facility], [address] [place], [address], [place] tel:[phone] [facility] No Information 2 Management Case. [address], [place], [id number], [place]. [phone] [facility], [address] [place], [address], [place] tel:[phone] [facility] No Information 2 Management Case. [address], [place], [id number], [place]. tel:[phone] Psychotherap y, 30 Min With Patient And Or Family M [facility], [address] [place], [address], [place] tel:[phone] [facility] Adjustment disorder with mixed anxiety and depressed mood 2 Fredrick Suzette. [address] [place], [place], [id number], [place]. tel:[phone] LIMITED EXAM,ESTAB PAT. [facility], [address] [place], [address], [place] tel:[phone] [facility] recurrent vertigo's (chief complaint)Vag inal itching (chief complaint)HCM (chief complaint) Encounter for screening mammogram for cancer of breastHypothy roidism, unspecifiedPr ediabetesAdju stment disorder with mixed anxiety and depressed moodVaginal irritation 2 Nathan Lockwood. [address], [place], [place], [id number], [place]. tel:[phone] Referring Provider: Mandie Evans, [address], [place], [address] . tel:[phone] Psychotherap y, 30 Min With Patient And Or Family M [facility], [address] [place], [address], [place] tel: [phone] [facility] Adjustment disorder with mixed anxiety and depressed mood 2 Fredrick Bradford. [address], [place], [id number], [place]. tel:[phone] INTERMED EXAM,[facility], [address] [place], [address], [place] tel: [phone] [facility] Thyroid problems (chief complaint)Ear Pain (chief complaint)HCM (chief complaint) Immunization not carried out because of patient refusalEncntr screen for dis of the bld/bld-form org/immun mechnsmHypoth yroidism, unspecifiedEa r pain, bilateralBrea st cancer screening by mammogramAmbl yopia of left eyeImpacted cerumen, unspecified ear 2 Lon Parker. [address], [place], [place], [id number], [place]. tel:[phone] INTERMED EXAM,[facility], [address] [place], [address], [place] tel: [phone] [facility] hypothyroidis m (chief complaint)med ication (chief complaint)Pre ventive exam (chief complaint)HCM (chief complaint)col on cancer screening (chief complaint) Encounter for screening for malignant neoplasm of colonGastroes ophageal reflux disease, unspecified whether esophagitis presentHypoth yroidism, unspecifiedMe casimiro impairmentAbn ormal glucoseH/O: varicose veinsStressEn counter for immunizationE ncounter for screening mammogram for cancer of breast 2 Loren Bhatti. [address], [place], [place], [id number], [place]. [phone] [facility], [address] [place], [address], [place] tel: [phone] [facility] Contact w and exposure to oth viral communicable diseases 2 Jono Montez. [address] [place], [place], [id number], [place]. tel:[phone] LIMITED EXAM,ESTAB PAT. [facility], [address] [place], [address], [place] tel:[phone] [facility] Dry eyes (chief complaint) Viral conjunctiviti sSore throat 2 Resident Internal Med. . INTERMED EXAM,ESTAB [facility], [address] [place], [address], [place] tel: [phone] [facility] colon cancer screening (chief complaint)HCM (chief complaint)Rig ht upper quadrant (chief complaint)Dys uria (chief complaint) Body mass index (BMI) 29.0-29.9, adultEncounte r for screening for cancer of colonRoutine health maintenanceOt her abnormal findings in urineRight upper quadrant abdominal pain Dec- 1 Resident Internal Med. . [facility], [address] [place], [address], [place] tel:[phone] [facility] No Information 1 [facility]. [address] [place], [address], [place]. tel:[phone] LIMITED EXAM,ESTAB PAT. [facility], [address] [place], [address], [place] tel:[phone] [facility] cough (chief complaint) Gastroesophag eal reflux disease, unspecified whether esophagitis presentCough 1 Resident Internal Med. . BRIEF EXAM, ESTAB PAT. [facility], [address] [place], [address], [place] tel:[phone] [facility] Cough (chief complaint) Cough 1 Sidra Hahn. [address] [place] [address], [id number], [place]. tel:[phone] INTERMED EXAM,ESTAB [facility], [address] [place], [address], [place] tel:[phone] [facility] Cough (chief complaint) CoughHypothyr oidism, unspecified Nov-0 1 Resident MED/PED. . LIMITED EXAM,ESTAB PAT. [facility], [address] [place], [address], [place] tel: [phone] [facility] Cough Albert-0 1 Resident MED/PED. . [facility], [address] [place], [address], [place] tel: [phone] [facility] Counseling, unspecified Dec-0 0 Health Education. . LIMITED EXAM,ESTAB PAT. [facility], [address] [place], [address], [place] tel: [phone] [facility] hypertension (chief complaint)Thy roid problems (chief complaint)hyp erlipidemia (chief complaint)col on cancer screening (chief complaint)HCM (chief complaint)All ergies (chief complaint) Encounter for screening for cancer of colonImmuniza tion not carried out because of patient refusalHypert ensionPrediab etesHypothyro idism, unspecifiedHy perlipidemia, unspecifiedNo dule of skin of head 3 0-202 0 Shannan Jordan [address] [place], [place], [id number], [place]. tel:[phone] [facility], [address] [place], [address], [place] tel: [phone] [facility] No Information 0 Shannan Jordan [address] [place], [place], [id number], [place]. tel:[phone] MINIMAL EXAM,ESTAB PAT. 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 . INTERMED EXAM,ESTAB [facility], [address] [place], [address], [place] tel: [phone] [facility] hypertension (chief complaint)Uri nary symptoms (chief complaint) HypertensionH ypothyroidism , unspecifiedHe althcare maintenancePr ediabetesHype rlipidemia, unspecifiedDy suriaOther specified counseling 0 Stephen Forbes. [address] [place], [place], [id number], [place]. tel:[phone] LIMITED EXAM,ESTAB PAT. [facility], [address] [place], [address], [place] tel: [phone] [facility] hypertension (chief complaint)Thy roid (chief complaint)lef t axillary pain (chief complaint) Breast pain, leftHypothyro idism, unspecifiedHy pertension 9 Shannan Dougherty. [address] [place], [id number], [place]. tel:[phone] [facility], [address] [place], [address], [place] tel: [phone] [facility] No Information 9 Adelia Bhatti. [address], [place], [place], [id number], [place]. tel:[phone] [facility], [address] [place], [address], US tel: [phone] [facility] Hypothyroidis m, unspecified 9 Adelia Magy. [address], [place], [place], [id number], [place]. tel:[phone] [facility], [address] [place], [address], [place] tel: [phone] [facility] Encounter for dental exam and cleaning w abnormal findings 9 Annalise Gay. [address] [place], [place], [id number], [place]. tel:[phone] [facility], [address] [place], [address], [place] tel: [phone] [facility] Hypothyroidis m, unspecified - 9 Shannan Dougherty. [address] [place], [id number], [place]. tel:[phone] INTERMED EXAM,ESTAB PAT [facility], [address] [place], [address], [place] tel:[phone] [facility] hypertension (chief complaint)Thy roid problems (chief complaint)Mus culoskeletal pain (chief complaint) Encounter for screening for cancer of colonHypothyr oidism, unspecifiedPr ediabetesHype rtensionSciat ica of right side 8 9 Shannan Dougherty. [address] [place], [place], [address], [place]. tel:[phone] [facility], [address] [place] [address], [address], [place] tel:[phone] [facility] No Information 3 9 Shannan Dougherty. [address], [place], [id number], [place]. tel:[phone] [facility], [address] [place] [address], [address], [place] tel:[phone] [facility] Hypothyroidis m, unspecified 0 2201 9 Mullen Pat. [address] [place], [place], [id number], [place]. tel:[phone] [facility], [address] [place] [address], [address], [place] tel:[phone] [facility] Hypothyroidis m, unspecified 9-201 9 Shannan Dougherty. [address] [place], [place], [id number], [place]. [phone] LIMITED EXAM,ESTAB PAT. [facility], [address] [place] [address], [address], [place] tel:[phone] [facility] hypertension (chief complaint)hyp erlipidemia (chief complaint)col on cancer screening (chief complaint) Encounter for screening for cancer of colonHyperten sionHypothyro idism, unspecifiedPr ediabetesHist ory of uterine fibroidAt risk for dental problems 9 Shannan Dougherty. [address], [place], [id number], [place]. tel:[phone] LIMITED EXAM,ESTAB PAT. [facility], [address] [place], [address], [place] tel: [phone] [facility] Follow up on lab test(s) (chief complaint)Col on Cancer Screening (chief complaint) Body mass index (BMI) 27.0-27.9, adultEncounte r for screening for cancer of colonHypothyr oidism, unspecifiedHy pertensionHis tory of uterine fibroid 8 Shannan Dougherty. [address], [place], [id number], [place]. tel:[phone] [facility], [address] [place], [address], [place] tel: [phone] [facility] No Information 8 [facility]. [address] [place], [address], [place]. tel:[phone] LIMITED EXAM,ESTAB PAT. 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 [address] [place], [place], [id number], [place]. tel:[phone] INTERMED EXAM,ESTAB PAT [facility], [address] [place], [address], [place] tel: [phone] [facility] back pain (chief complaint)see standing orders (chief complaint) HypertensionH ypothyroidism , unspecifiedHy perlipidemia, unspecifiedCe rvical massOther abnormal findings in urineEncounte r for screening for cancer of colonAcute right-sided thoracic back pain - 8 Stephen Leidy. [address], [place], [place], [id number], [place]. tel:[phone] LIMITED EXAM,ESTAB PAT. [facility], [address] [place], [address], [place] tel: [phone] [facility] Sore throat (chief complaint) Acute pharyngitis, unspecifiedHy pertensionHyp othyroidism, unspecifiedHy perlipidemia, unspecified Jul-0 9- 8 Resident Internal Med. . LIMITED EXAM,ESTAB PAT. [facility], [address] [place], [address], [place] tel: [phone] [facility] Follow up on lab test(s) (chief complaint) Cervical mass 8 Adelia Bhatti. [address], [place], [place], [id number], [place]. tel:[phone] LIMITED EXAM,ESTAB PAT. [facility], [address] [place], [address], [place] tel: [phone] [facility] preventive exam (chief complaint)Fol low up on lab test(s) (chief complaint) Post-menopaus al bleeding 7 Adelia Bhatti. [address] [place], [address], [place]. [phone] LIMITED EXAM,ESTAB PAT. [facility], [address] [place], [address], [place] tel: [phone] [facility] hematuria (chief complaint)HCM (chief complaint) Post-menopaus al bleedingOther abnormal findings in urineAllergic rhinitis, unspecified allergic rhinitis trigger, unspecified rhinitis seasonalityHy pertensionHyp othyroidism, unspecified 7 Nathan Lockwood. [address], [place], [place], [id number], [place]. [phone] LIMITED EXAM,ESTAB PAT. [facility], [address] [place], [address], [place] tel:[phone] [facility] Thyroid problems (chief complaint)hyp ertension (chief complaint)hyp erlipidemia (chief complaint)Med refills (chief complaint) HypertensionH ypothyroidism , unspecifiedHy perlipidemia, unspecifiedAl lergic rhinitis, unspecified allergic rhinitis trigger, unspecified rhinitis seasonalityPr ediabetes 7 Shannan Dougherty. [address] [facility] [address], [id number], [place]. [phone] LIMITED EXAM,ESTAB PAT. [facility], [address] [place], [address], [place] tel:[phone] [facility] Cough (chief complaint) Viral upper respiratory tract infection 7 Sidra Hahn. [address] [place] [address], [id number], [place]. [phone] LIMITED EXAM,ESTAB PAT. [facility], [address] [place], [address], [place] tel:[phone] [facility] Burning on urination (chief complaint) DysuriaHyperl ipidemia, unspecifiedHy pothyroidism, unspecifiedHy pertension 7 Stephen Forbes. [address] [facility] [place], [id number], [place]. [phone] LIMITED EXAM,ESTAB PAT. [facility], [address] [place] [address], [address], [place] tel:[phone] [facility] hypertension (chief complaint)hyp erlipidemia (chief complaint)hyp othyroidism (chief complaint)All ergies (chief complaint)Diz ziness (chief complaint)dep ressed mood (chief complaint) Healthcare maintenanceEs sential (primary) hypertensionH yperlipidemia , unspecifiedAl lergic rhinitis, unspecified allergic rhinitis trigger, unspecified rhinitis seasonalityHy pothyroidism, unspecifiedAd justment disorder with depressed mood 7 Resident Internal Med. . LIMITED EXAM,ESTAB PAT. [facility], [address] [place], [address], [place] tel:[phone] [facility] F/U TSH (chief complaint) Essential (primary) hypertensionH ypothyroidism , unspecifiedHe althcare maintenance Resident Internal Med. . LIMITED EXAM,ESTAB PAT. [facility], [address] [place], [address], [place] tel:[phone] [facility] depression (chief complaint)Thy roid problems (chief complaint)All ergies (chief complaint) Hypothyroidis m, unspecifiedAl lergic rhinitisPredi abetesHyperli pidemia, unspecifiedDe ntal cariesEssenti al (primary) hypertension Resident Internal Med. . LIMITED EXAM,ESTAB PAT. [facility], [address] [place], [address], [place] tel:[phone] [facility] Cough (chief complaint)Dep ression (chief complaint) Essential (primary) hypertensionA llergic rhinitis, unspecified allergic rhinitis trigger, unspecified rhinitis seasonalityPr ediabetesBere avementHypoth yroidism, unspecifiedHe althcare maintenance Resident Internal Med. . [facility], [address] [place], [address], [place] tel: [phone] [facility] No Information [facility]. [address] [place], [address], [place]. tel:[phone] INTERMED EXAM,ESTAB PAT [facility], [address] [place], [address], [place] tel:[phone] [facility] Cough (chief complaint) Allergic rhinitisEssen tial (primary) hypertensionH ypothyroidism , unspecifiedIm paired fasting glucoseEncoun ter for screening for cancer of colonOverweig htHyperlipide stuart, unspecifiedVi ral URIOther viral agents as the cause of diseases classified elsewhereHeal thcare maintenance Resident Internal Med. . [facility], [address] [place], [address], [place] tel:[phone] [facility] No Information 7 [facility]. [address] [place], [address], [place]. tel:[phone] [facility], [address] [place], [address], [place] tel: [phone]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 information: does not wish trial off tx hyperlipidemia Risk factors inc lude age over 50. The patient is adhering to medication for their hyperlipidemia. Pertinent negatives include chest pain. Med refills Cough Associated sympt oms include cough and [...] but is already taking Lipitor 40mg daily. Thyroid problems (comments) Star jessie synthroid 100 mcg in April but did not return for lab check. Endorses occasional papitations and prior hair loss. Denies heat/cold intolerance, weight gain or dry skin. Allergies (comments) C/o nasal d ischarge which has been a chronic issue for her. Improved with qnasal, requesting refills. Allergies Additional infor mation: c/o- high phlegm and needs med refill- Nasonex. depression The patient repo rts functioning as not difficult at all. The patient presents with depressed mood but denies difficulty concentrating, difficulty falling asleep, diminished interest or pleasure, feelings of guilt, loss of appetite, restlessness or thoughts of or suicide. Additional information: + PHQ, score #2. Thyroid problems Risk factors in clude female. Additional information: F/U- Thyroid check and med refill. depression (comments) Sx well co ntrolled at this time. Under stress while caring for . Cough Onset: 15 days a go. The [...] & in am. Not using saline rinses. Depression The patient does not present with anxious/fearful thoughts or fatigue. The patient denies any headache, nausea and vomiting. Additional information: 3 months ago, has good family support, no SI, still grieving. Cough Onset: 2 days ag o. Additional information: productive of white phlegm ROS pos for myalgias, chills, DOUGLASS, sore throat, itchy eyes. ROS neg for fevers. Daughter at home w/ similar sx. hypertension The severity has been described as being mild. It is currently stable. Pertinent negatives include chest pain. Additional information: Follow up B/P RX Patient would li dilip to discuss RX and refills TB Assesment positve TB Asses ment, patient was born in [facility], patient states she did receive BCG vaccine but does not recall what year, patient has not travelled [place] side the [place] hypertension The severity has been described as being mild. It is currently stable. Med refills Musculoskeletal pain Onset: 1 we ek ago. Severity level is 6. It occurs intermittently and is worsening. Location: left shoulder. The pain is aching and throbbing. The pain is aggravated by lifting and movement. preventive exam Currently pregna nt: no. Parity: Livin. Patient is not contemplating . Her menses is absent. Negative for: breast discharge, breast lump(s) and breast pain. Positive for: breast self exam.Postmenopausal. The patient does not use tobacco. She has not been exposed to passive smoke. She does not drink alcohol. Additional information: pap smear. cold improving, had a sore throat ad mild cough hypertension The severity has been described as being mild-moderate. It is currently stable. There are no associated symptoms. hypothyroid due for lab Wants flu shot hypertension The severity has been described as being mild-moderate. It is currently stable. There are no associated symptoms. Thyroid problems Risk factors in clude female. Additional information: Hypothyroidism; insists on daily med, will increase dose. Allergies Symptoms are int ermittent and moderate. The patient is also experiencing dizziness and nasal congestion. Additional information: needs refill. Hypothyroidism hypertension Additional infor mation: Pt requests a refill on HTN Rx. Allergies Additional infor mation: Pt requests a refill on Rx. Hypothyroidism Pt.States need a ll med refills. hypertension The severity has been described as being moderate. It is currently stable. There are no associated symptoms. Pertinent negatives include chest pain and dyspnea. hypertension Thyroid problems Risk factors in clude female. Functional Status Date Functional Assessmen t No Information Instructions Date Instruction Additional Infor yaritza Last labs much improvedCont stat in Related to Hyperlipidemia, unspecified - Referral to vascul ar surgery placed at prior visit- Cont compression socks Related to Symptomatic varicose veins of both lower extremities Seeing dentistry Related to [place] decay Cont lifestyle modif ications On atorva 40 [...] recent visit. Related to Healthcare maintenance Cont Coreg 6.25 BID. Increase as needed Related to Hypertension Cont levothyroxine Related to Hy pothyroidism, unspecified Amox x7 days Related to Acute tonsillitis, unspecified etiology -Sent neomycin-HC ot ip drops -Complete amox course -ER precautions given -Will follow up in person at next visit Related to Acute otitis externa of right ear, unspecified type OTIC ABX. REEXAMIN AT F/U 05/21/24 Related to Acute otitis externa of right ear, unspecified type AMOX X 7 DAYS Related to Acute tonsillitis, unspecified etiology REST, WARM LIQUIDSER PRECAUTIONS . Related to Acute cough -Fluoroquinolone-hyd rocortisone ear drop BID Rx. 7-day course -Return precautions given (and return if symptoms persist or worsen beyond one week) Related to Acute otitis externa of right ear, unspecified type - On claritin- On eye drops Rela jessie to Allergic rhinitis Cont Coreg 6.25 BID Related to H ypertension Repeated labs today Cont levothyroxine Related to Hypothyroidism, unspecified Last labs much improvedCont stat in Related to Hyperlipidemia, unspecified - Referral to vascul ar surgery placed at prior visit and pending scheduling - Cont compression socks Related to Symptomatic varicose veins of both lower extremities Seeing dentistry Related to [place] decay Cont lifestyle modif ications On atorva 40 [...] smoking Hx): N.A. Related to Healthcare maintenance Check on referral an d let pt [...] disease, unspecified whether esophagitis present COVID negative juventino box try omeprazoleper pt dry cough, on and [...] urine Clinically euthyroid. Related to Hypothyroidism, unspecified Slightly above goalC ont current medicationLow sodium diet and exercise reviewed. Related to Hypertension Stable with anti-his tamine and flonase. Related to Allergic rhinitis, unspecified allergic rhinitis trigger, unspecified rhinitis seasonality Return to clinic if symptoms wor sen [...] los alimentos fritos Related to Prediabetes 1. Repeat lipid pane l and check LFTs1. [place] Related to Hyperlipidemia, unspecified 1. Refill qnasal today Related t o Allergic rhinitis 1. Refill atenolol Related to Es sential [...] for screening for cancer of colon - Refill atenalol 25 mg PO daily- RTC 2 wks for BP check and uptitration of BP meds if needed Related to Essential (primary) hypertension - Refill lipitor 40m g daily- Fasting lipid panel to be done in the future when fasting Related to Hyperlipidemia, unspecified - Rx for benadryl an d Robitussin DM for rhinorrhea, itchy eyes and cough- More fluid intake- Rest- Education about viruses and to let them take their course Related to Viral URI Return FIT test kit to the clini c Related to Encounter for screening for cancer of colon Take medications daily Related t o Essential (primary) hypertension Low salt diet Related to Nicolette meneses (primary) hypertension Assessments Type Assessment Date No Information Patient Care Teams Name Effective Dates (sta rt - stop) Status Members RONAK Stuart - active Lily Hampton.Internal Med Resident.(Lead)
--- OUTSIDE RECORDS SUMMARY | 2024-07-25 11:14 | XMS_ITS | Continuity of Care Document ---
Author Organization [facility] Address [address] [place] [address] Phone Care Team Providers Care Bonded Strand Operator Name Role Phone Leonor Yousif DMD [...] Diagnoses Date Provider Providers Copied on Encounter [facility], [address] [place] [address], [place], [id number], [place] tel:[phone] [facility] Encounter for dental examination and cleaning with abnormal findingsTobacco abuse counselingOther specified counselingRisk for dental caries, highDietary counseling and surveillance David Galvez. [address], [place], [id number], [place]. tel:[phone] Family History Family Member Type Diagnosis Age At Onset No Information Payers Payer name Insurance type Covered libertarian ID Omid otero(s) Dental Med[facility] OP [id number] DENTICAL [id number] Social History Type Description Quantity Date Captured [...]
--- OUTSIDE RECORDS SUMMARY | 2024-07-25 11:15 | XMS_ITS | Clinical Summary ---
Author Organization [facility] [place] [address] Phone Care Team Providers Care Gas Torch Brazier Name Role Phone Curt Falk MD Primary Care Provider [phone] Allergies Active Allergy Reactions Criticality Noted Date [...] Description 07/31/2024 10:30 AM EDT Hospital Encounter [facility] [place] [address] [place] [phone] Quang Hurd MD [address] [address] 07/31/2024 10:30 AM EDT - 07/31/2024 12:00 PM EDT Surgery [facility] [place] [address] [place] [phone] Quang Hurd MD [facility] [address] [address] [employer] NE[employer]OMODUL[employer] STAGE 1 [[id number] (CPT??) +1 more] 08/15/2024 9:00 AM EDT Hospital Encounter [facility] [place] [address] [place] [phone] Quang Hurd MD [address] [address] 08/15/2024 9:00 AM EDT - 08/15/2024 10:30 AM EDT Surgery [facility] [place] [address] [place] [phone] Quang Hurd MD [address] [address] 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
[2024-07-25 11:21] LABS: Erythrocyte Sedimentation Rate 28 MM/HR (0-20)
[2024-07-25 11:31] LABS: Alanine Aminotransferase 23 U/L (0-31); Albumin Level 4.3 g/dL (3.5-5.0); Alkaline Phosphatase 81 U/L (39-117); Anion Gap 11 (12-20); Aspartate Amino Transferase 22 U/L (5-31); Bilirubin Total 0.5 mg/dL (0.0-1.0); Blood Urea Nitrogen 16 mg/dL (9-16); Calcium 9.6 mg/dL (8.4-10.2); Carbon Dioxide 28 mmol/L (22-29); Chloride 106 mmol/L (96-108); Cholesterol 163 mg/dL (<200); Estimated Glomerular Filt Rate > 60; Glucose Fasting 99 mg/dL (60-99); HDL Cholesterol 63 mg/dL (>40); LDL Cholesterol Calculated 67 mg/dL (<100); Potassium 3.9 mmol/L (3.3-5.1); Sodium 141 mmol/L (135-145); Total Protein 7.3 g/dL (6.5-8.0); Triglycerides 167 mg/dL (<150)
[2024-07-25 11:32] LABS: Appearance Urine Clear; Color Urine Yellow; Glucose Urine UA Negative (Negative); Leukocyte Esterase Urine Negative (Negative); Nitrite Urine Negative (Negative); Urine Blood Negative (Negative); Urine Ketones Negative (Negative); Urine Protein Negative (Neg-Trace)
[2024-07-25 11:52] LABS: Vitamin D 25-OH Total 56.3 ng/mL (>30)
[2024-08-01 15:44] LABS: IgE Antibody (Anti-IgE IgG) 41 ng/mL (<168)
== END 2024-07-25 08:55 | disposition home or self-care (01) ==
LOC: HO.LAB 08:54
PROVIDERS: PCP Internal Medicine; Visit Provider Internal Medicine
DX: L50.9 Urticaria, unspecified (principal); J45.901 Unspecified asthma with (acute) exacerbation; M25.50 Pain in unspecified joint; D64.9 Anemia, unspecified; E78.00 Pure hypercholesterolemia, unspecified; R73.01 Impaired fasting glucose; R30.0 Dysuria; E55.9 Vitamin D deficiency, unspecified
CPT/HCPCS: 36415; 80053; 80061; 81003; 82306; 83036; 83520; 85025; 85652; 96127; 99212

== ENCOUNTER 2024-08-08 07:02 | Outpatient (REF) | payer OTHER, SELFPAY ==
[2024-08-08 07:21] LABS: MANUAL DIFF FLAG NO
[2024-08-08 07:59] LABS: Basophils Percent Auto 0.2 % (0-2); Eosinophils Absolute Auto 0.3 X10*3/uL (0.0-0.4); Eosinophils Percent Auto 2.6 % (0-4); Hematocrit 35.4 % (37.0-47.0); Hemoglobin 11.3 g/dl (12.0-16.0); Imm Gran Abs Auto 0.13 X10*3/uL (0.00-0.03); Imm Gran Pct Auto 1.3 % (0.0-0.4); Lymphocytes Absolute Auto 3.9 X10*3/uL (1.2-4.9); Lymphocytes Percent Auto 37.9 % (20-40); Mean Corpuscular HGB Conc 31.9 g/dl (31.0-35.0); Mean Corpuscular Hemoglobin 26.9 pg (27.0-33.0); Mean Corpuscular Volume 84.3 fL (80.0-98.0); Mean Platelet Volume 10.2 fL (9.4-12.3); Monocytes Absolute Auto 0.5 X10*3/uL (0.1-1.2); Monocytes Percent Auto 4.6 % (2-11); Neutrophils Absolute Auto 5.5 x10*3/uL (2.0-8.3); Neutrophils Percent Auto 53.4 % (45-73); Platelet Count 215 X10*3/uL (160-400); Red Cell Distribution Width 14.8 % (11.0-16.0); White Blood Count 10.3 X10*3/uL (4.8-10.8)
[2024-08-08 08:55] LABS: Appearance Urine Clear; Color Urine Yellow; Glucose Urine UA Negative (Negative); Leukocyte Esterase Urine Trace (Negative); Nitrite Urine Negative (Negative); PH 6.5 (5.0-9.0); Specific Gravity - Urine 1.015 (1.005-1.025); UMIC TRIGGER UACC YES; Urine Blood Negative (Negative); Urine Ketones Negative (Negative); Urine Protein Negative (Neg-Trace)
[2024-08-08 09:08] LABS: Bacteria Urine None Seen (None Seen); Hyaline Casts Urine 0-2 /LPF (0-2); RBC Urine 0-2 /HPF (0-2); WBC Urine 0-5 /HPF (0-5)
== END 2024-08-08 07:03 | disposition home or self-care (01) ==
LOC: HO.LAB 07:02
PROVIDERS: PCP Internal Medicine; Visit Provider Internal Medicine
DX: L50.9 Urticaria, unspecified (principal)
CPT/HCPCS: 36415; 81001; 81003; 85025

== ENCOUNTER 2024-08-14 12:26 | Outpatient (AMB) | payer OTHER, SELFPAY ==
[2024-08-14 12:31] VITALS: BP 130/76; PULSE 97; O2SAT 95; BMI 41.5
--- NOTE | 2024-08-14 12:31 | A.OFFPC_ITS ---
Vital Signs 08/14/24 12:31 Height 4 ft 11 in Weight 205 lb 8 oz BMI 41.5 BP 130/76 Blood Pressure Location Lt brachial Position Sitting Pulse 97 Pulse Source Pulse Oximeter Pulse Oximetry (%) 95 Oxygen Delivery Method Room Air Intake Visit Reasons: Follow Up Metal Filer Required: No Accompanied by: Self / Same As Patient Allergies Penicillins [PENICILLINS] Allergy (Intermediate, Verified 08/14/24 13:00) RASH Medication List - Last Reconciled 08/14/24 by Curt Falk MD acetaminophen 650 mg (2 x 325 mg) PO Q6H PRN 30 days [ADULT PULL-UPS As directed] [ADULT PULL-UPS As directed] albuterol sulfate 2.5 mg (3 mL) inhalation Q6H PRN 30 days albuterol sulfate 90 mcg/actuation 2 inhalations inhalation Q6H PRN 30 days atorvastatin 10 mg PO BEDTIME 90 days blood pressure kit-extra large As directed buprenorphine HCl (Belbuca) 150 mcg buccal Q12H dupilumab (Dupixent) 300 mg subcut Q2W escitalopram oxalate 20 mg PO DAILY 90 days ezetimibe 10 mg PO DAILY fluticasone propion-salmeterol 115-21 mcg/actuation (Advair HFA) 2 puffs inhala tion Q12H 30 days ibuprofen 600 mg PO Q8H PRN loratadine 10 mg PO DAILY PRN 90 days lorazepam mg PO BID PRN montelukast 10 mg PO QPM 90 days naloxone 4 mg/actuation (Narcan) 4 mg intranasal Q3M PRN [NEBULIZER and all related supplies As directed] omeprazole 40 mg PO DAILY 90 days prednisone 4 tablets x 3 days, then 3 tablets x 3 days, then 2 tablets x 3 days, then 1 tablet x 3 days 12 days trazodone 100 mg PO BEDTIME PRN [wipes As directed] zolpidem 5 mg PO BEDTIME PRN Tobacco use date assessed: 08/14/24 Fall risk assessment: No Falls in past year Last assessed Fall Risk: 08/14/24 Dental Screening Dental Screen Date: 08/14/24 Did you have a dental visit in the last 12 months?: No Did you have a dental problem in the last 6 months where you did not have access to dental care?: No Was dental information given to patient?: No HPI Follow Up HPI Details Patient comes in today for her follow up visit States that she is still taking her Dupixent injections (took her 4th dose today) but does not feel that they are helping much as she is still breaking out in a recurrent itchy rash all over States that she tried to get in to see Dr. Tyson earlier but was advised that the earliest appointment they can give her is in September 2024 States that she feels okay otherwise She denies any fever or sore throat; denies any headaches or dizziness Denies any chest pains, no SOB No nausea/vomiting, no abdominal pain No change in bowel habits noted She had her follow up labs done last week - to discuss her results [facility] Medical History Abdominal pain Depression Anxiety Insomnia Myalgia, upper arm Osteoarthritis of right knee Lumbar spondylosis Foot pain, bilateral BRIDGETTE (obstructive sleep apnea) Asthma KAMILA positive Urticaria Obesity (BMI 30-39.9) Vitamin D deficiency Chronic interstitial cystitis Irritable bowel syndrome (IBS) Arthralgia Osteoarthritis Esophageal stricture GERD (gastroesophageal reflux disease) Left lumbar radiculopathy CAD (coronary artery disease) Pure hypercholesterolemia Benign essential hypertension Surgical History History of surgery History of total right knee replacement (09/22/21) Hx of cystoscopy Status post balloon dilatation of esophageal stricture (~2005) History of cardiac catheterization History of colonoscopy History of nephrolithotomy with removal of calculi History of tooth extraction Family History Father Hypertension Mother Hypertension Diabetes CVD (cardiovascular disease) Daughter No problems noted. Family/Other FH: mental illness Other Mental health problem Substance abuse Social History Housing: Apartment Are you a primary care process manager to a significant other at home: No Do you presently have visiting nurse or other home services: No Alcohol intake: never Comment: medicated, see MAR Patient Tobacco Use Status: Never used Tobacco e-Cigarette/Vaping Use: Never Used Second Hand Smoke Exposure: No service: No Current occupational status: disabled Cognitive needs: No Hearing needs: No Vision needs: Yes (Glasses) Questionnaire PHQ-9 Over the last 2 weeks, how often have you been bothered by any of the following problems? 1. Little interest or pleasure in doing things: not at all 2. Feeling down, depressed, or hopeless: not at all 3. Trouble falling or staying asleep, or sleeping too much: not at all 4. Feeling tired or having little energy: not at all 5. Poor appetite or overeating: not at all 6. Feeling bad about yourself - or that you are a failure or have let yourself or your family down: not at all 7. Trouble concentrating on things, such as reading the newspaper or watching television: not at all 8. Moving or speaking so slowly that other people could have noticed. Or the opposite - being so fidgety or restless that you have been moving around a lot more than usual: not at all 9. Thoughts that you would be better off or of hurting yourself in some way: not at all Total score: 0 Depression Screening Interpretation: Negative Depression Screening Done: Yes 33827 - PHQ-9 Billing: Yes Source: Developed by Drs. Jorge Diallo, Yumiko Irvin, Celestino Banda and colleagues, with an educational mari from [employer]. Thrive Questionnaire Date Thrive assessed: 08/14/24 I am a: Patient What is your living situation today?: I choose not to answer this question Within the past 12 months, did the food you bought not last and you didn't have the money to get more?: I choose not to answer this question Within the past 12 months, did you worry whether your food would run out before you got money to buy more?: I choose not to answer this question Do you have trouble paying for medicines?: I choose not to answer this question Do you have trouble getting transportation to medical appointments?: I choose not to answer this question Do you have trouble paying your heating and electricity bill?: I choose not to answer this question Do you have trouble taking care of your child, family member or friend?: I choose not to answer this question Do you have trouble with day-to-day activities such as bathing, preparing meals, shopping, managing finances, etc.?: I choose not to answer this question Are you currently unemployed and looking for a job?: I choose not to answer this question Are you interested in more education?: I choose not to answer this question Please select the resources that you would like help with: None Currently or been in a relationship where the following occur: I choose not to answer THRIVE Score: 0 AUDIT C Alcohol Use Questionnaire (AUDIT-C) 1. How often do you have a drink containing alcohol?: Never 3. How often do you have six or more drinks on one occasion?: Never Total Score: 0 Score Reviewed/Action Taken: Yes ADRIANA-7 AMB Questionnaire ADRIANA-7 Date ADRIANA - 7 assessed: 08/14/24 Feeling nervous, anxious, or on edge: 0 = Not at all Not being able to stop or control worryin = Not at all Worrying too much about different things: 0 = Not at all Trouble relaxin = Not at all Being so restless that it is hard to sit still: 0 = Not at all Becoming easily annoyed or irritable: 0 = Not at all Feeling afraid as if something awful might happen: 0 = Not at all Total ADRIANA-7 score (0-4 normal; 5-9 mild; 10-14 moderate; 15-21 severe): 0 Source: Developed by Drs. Jorge Diallo, Yumiko Irvin, Celestino Banda and colleagues, with an educational mari from [employer]. Review of Systems Const Denies chills, Denies fatigue, Denies fever(s) and Denies headache(s) ENT Denies dysphagia, Denies dizziness, Denies otalgia, Denies headache(s), Denies neck pain, Denies odynophagia and Denies sore throat Card Denies chest pain, Denies palpitations and Denies dyspnea Resp Denies chest congestion, Denies cough and Denies dyspnea GI Denies abdominal pain, Denies constipation, Denies dysphagia, Denies heartburn, Denies diarrhea, Denies nausea, Denies odynophagia and Denies vomiting Denies difficulty voiding, Reports nocturia, Reports dysuria (on and off - has chronic IC - symptoms have improved slightly with Botox) and Reports urinary urgency (at times) Musc Reports back pain (over the right lower back), Reports arthralgias (involving multiple joints - right knee and hip and right shoulder), Denies neck pain and Reports radiating pain into limb (into the right thigh and leg; right shoulder pain going into neck/arm) Skin/Breast Details: (+) scattered itchy rash all over Reports pruritus Neuro Denies dizziness and Denies headache(s) Psych Denies anxiety Endo Denies fatigue and Denies palpitations Physical exam (Primary Care) Vital Signs: Last Vital Signs Pulse 97 08/14/24 12:31 BP 130/76 08/14/24 12:31 Pulse Ox 95 08/14/24 12:31 Oxygen Delivery Method Room Air 08/14/24 12:31 BMI result Body Mass Index 41.5 Tobacco/Smoking Status: Tobacco use Status Tobacco use date assessed 08/14/24 08/14/24 12:36 Patient Tobacco Use Status Never used Tobacco 08/14/24 12:36 Tobacco use type 07/26/23 14:03 e-Cigarette/Vaping Use Never Used 08/14/24 12:36 PHQ-9: PHQ-9 Score PHQ-9: Total score 0 08/14/24 12:36 Depression Screening Interpretation: Negative Thrive Assessment: Date of Thrive Assessment Date Thrive assessed 08/14/24 08/14/24 12:36 Currently or been in a relationship where the following occur: I choose not to answer Const General: no acute distress and alert HENMT Throat: Yes posterior oropharynx normal and Yes tonsils normal (no TP congestion noted) Neck Neck: Yes supple and No lymphadenopathy Thyroid: Thyroid normal Resp Auscultation: clear to auscultation bilaterally, no rales and no wheezes Cardio Rate: regular rate Rhythm: regular rhythm Heart sounds: no murmurs GI Palpation (GI): Soft to palpation and nontender Auscultation: normal bowel sounds General: Yes no CVA tenderness Back/Spine/Pelvis Back: no CVA tenderness Thoracic/Lumbar Spine: paraspinal muscle tenderness on the right and lumbar spinal tenderness (chronic) Skin Other: (+) scattered erythematous pruritic papular rash all over Extrem General: Yes no clubbing, cyanosis or edema Right upper extremity: shoulder/upper arm Details: tenderness Location: of the A-C joint and abnormal ROM (ROM limited due to pain - unable to raise right arm above shoulder level) Right lower extremity: knee Details: tenderness; no swelling Left lower extremity: knee Details: tenderness; no swelling Results Reviewed Results Reviewed: Laboratory Tests 07/25/24 08/08/24 08/08/24 10:12 07:18 07:20 WBC 10.3 Hgb 11.3 L Hct 35.4 L Plt Count 215 Sodium 141 Potassium 3.9 Creatinine 0.87 Estimated GFR > 60 Fasting Glucose 99 Hemoglobin A1c % 5.8 Calcium 9.6 AST 22 ALT 23 Triglycerides 167 H Cholesterol 163 LDL Cholesterol, Calc 67 HDL Cholesterol 63 25-OH Vitamin D Total 56.3 Ur Specific [place] 1.015 Urine Protein Negative Urine Glucose (UA) Negative Urine Blood Negative Urine Nitrite Negative Ur Leukocyte Esterase Trace H Coding Level of Care Code Est Pt Level 4 (17632) Diagnoses Pure hypercholesterolemia E78.00 Benign essential hypertension I10 Impaired fasting glucose R73.01 Spondylosis of lumbosacral spine with radiculopathy M47.27 Primary osteoarthritis of right hip M16.11 Bilateral primary osteoarthritis of knee M17.0 Polyarthralgia M25.50 Moderate persistent asthma without complication J45.40 Asthma severity: moderate Asthma persistence: persistent Asthma complication type: uncomplicated Gastroesophageal reflux disease without esophagitis K21.9 Esophagitis presence: without esophagitis Esophageal stricture K22.2 Irritable bowel syndrome, unspecified type K58.9 Irritable bowel syndrome type: unspecified Vitamin D deficiency E55.9 Chronic interstitial cystitis N30.10 Nephrolithiasis N20.0 Insomnia, unspecified type G47.00 Insomnia type: unspecified Anxiety F41.9 Episode of recurrent major depressive disorder, unspecified depression episode severity F33.9 Depression Type: major depressive disorder Major depression recurrence: recurrent Active/Remission status: currently active Major depression episode severity: unspecified Obesity (BMI 30-39.9) E66.9 Additional Codes PHQ-9 - 20749 - PHQ-9 Billing: Yes ([id number]) Assessment & Plan Assessment & Plan (1) Pure hypercholesterolemia: Code(s): E78.00 - Pure hypercholesterolemia, unspecified Category: Medical Plan: Results of her labs done last week reviewed and discussed with patient Reinforced low cholesterol diet Continue Ezetimibe 10 mg QD and Atorvastatin 10 mg QD - she has been tolerating her Rx without any problems (could not tolerate Rosuvastatin in the past due to myalgia) Will have her recheck her labs and fasting lipids in 3 months for follow-up (2) Benign essential hypertension: Code(s): I10 - Essential (primary) hypertension Category: Medical Plan: Reinforced low sodium diet - goal is systolic BP of at least 130 to 140 mm or less Patient is reminded to continue monitoring her blood pressure regularly (3) Impaired fasting glucose: Code(s): R73.01 - Impaired fasting glucose Category: Medical Plan: Her HgbA1c was at 5.8% on her labs done last week; it was also normal at 5.6% and 5.4% when previously checked but have cautioned her that her HgbA1c has been slowly increasing and is now at the normal cut off value and anything above 5.8% now would be considered borderline diabetes Reinforced low carb/low calorie diet (4) Spondylosis of lumbosacral spine with radiculopathy: Code(s): M47.27 - Other spondylosis with radiculopathy, lumbosacral region Category: Medical Plan: MRI of the lumbar spine done in February 2022 revealed (+) markedly severe left and severe right facet arthropathy with a posterior disc protrusion and narrowing of the subarticular recesses as well as bilateral foraminal disc protrusions with impingement on the exiting L4 nerve roots at L4-L5. There is no significant central stenosis. At L5-S1 there is markedly severe facet arthropathy with a shallow posterior disc protrusion without central stenosis. There are left greater than right foraminal disc protrusions with impingement on the exiting left L5 nerve root. Lastly, at L3-L4 there is moderate facet arthropathy with a small posterior disc protrusion/extrusion without central stenosis. There are foraminal disc protrusions with impingement on the exiting right L3 nerve root. S/P bilateral lumbar RFA with sedation and fluoroscopy?on 05/26/22 and 06/09/22, and right L4-L5 TFESI?with local and fluoroscopy in 06/2022 - patient reports (+) significant improvement of her joint symptoms since Reinforced activity and weight-lifting restrictions Continue?Flexeril?10 mg 3 times a day as needed She was also on Butrans 20 mcg patch once a week and Percocet 5-325 mg QD PRN for breakthrough pain previously but she has been discharged from the opioid Rx program supposedly due to violating her pain management agreement States that she will continue to follow up with pain management but only for interventional procedures now She is currently seeing Celia Nova to help her wean herself off completely from opioids and feels that she is doing well in this regard (5) Primary osteoarthritis of right hip: Code(s): M16.11 - Unilateral primary osteoarthritis, right hip Category: Medical Plan: X-rays of the right hip done on 02/17/2022 revealed (+) moderate right hip OA Follow up with orthopedics as scheduled (6) Bilateral primary osteoarthritis of knee: Code(s): M17.0 - Bilateral primary osteoarthritis of knee Category: Medical Plan: S/P total right knee arthroplasty by Dr. Deras on 09/22/2021, with significant improvement of her knee symptoms since Follow up with orthopedics as scheduled (7) Polyarthralgia: Code(s): M25.50 - Pain in unspecified joint Category: Medical Plan: Patient has been tested previously for inflammatory joint disease, including RA and SLE - tests have all come back negative Has also been checked for Lyme disease, which came back negative Follow up with [facility]umatology as scheduled (8) Asthma: Code(s): J45.909 - Unspecified asthma, uncomplicated Category: Medical Qualifiers: Asthma severity: moderate Asthma persistence: persistent Asthma complication type: uncomplicated Qualified Code(s): J45.40 - Moderate persistent asthma, uncomplicated Plan: Controlled Continue Dupixent 200 mg SQ every 2 weeks, Breo Ellipta 200-25 mcg 1 inhalation QD, Montelukast 10 mg QD and Albuterol HFA 2 inhalations every 6 hours as needed Dupixent seems to be helping with patient's asthma but she feels that this is not helping with her pruritic rash at all Follow-up with pulmonary as scheduled (9) GERD (gastroesophageal reflux disease): Code(s): K21.9 - Gastro-esophageal reflux disease without esophagitis Category: Medical Qualifiers: Esophagitis presence: without esophagitis Qualified Code(s): K21.9 - Gastro-esophageal reflux disease without esophagitis Plan: Dietary restrictions reinforced Continue Omeprazole 40 mg QD (10) Esophageal stricture: Code(s): K22.2 - Esophageal obstruction Category: Medical Plan: S/P balloon dilatation by Dr. Nunez in 2005 -? states that she currently has no trouble swallowing Follow-up with Dr. Nunez as scheduled or as needed (11) Irritable bowel syndrome (IBS): Code(s): K58.9 - Irritable bowel syndrome, unspecified Category: Medical Qualifiers: Irritable bowel syndrome type: unspecified Qualified Code(s): K58.9 - Irritable bowel syndrome without diarrhea Plan: Continue Dicyclomine 20 mg QID PRN (12) Vitamin D deficiency: Code(s): E55.9 - Vitamin D deficiency, unspecified Category: Medical Plan: Continue Vitamin D2 96761 units weekly (13) Chronic interstitial cystitis: Comment: S/P hydrodistention on 07/07/20 Code(s): N30.10 - Interstitial cystitis (chronic) without hematuria Category: Medical Plan: Continue Phenazopyridine 200 mg every 6 hours as needed He has been seeing Dr. Lopez for urology follow up and management over the past few years and requested for a referral to see another urologist for a second opinion She is now going to [facility] for continuing management of her urinary issues - states that she had intravesical injection with Botox back in January 2024 and it has helped somewhat Follow up with urology as scheduled (14) Nephrolithiasis: Code(s): N20.0 - Calculus of kidney Category: Medical Plan: Follow up renal US done back in July 2021 revealed (+) bilateral nonobstructive echogenic renal calculi, with no caliectasis or hydronephrosis seen Follow up with urology as scheduled (15) Insomnia: Code(s): G47.00 - Insomnia, unspecified Category: Medical Qualifiers: Insomnia type: unspecified Qualified Code(s): G47.00 - Insomnia, unspecified Plan: Sleep hygiene reinforced States that her Quetiapine helps with her sleep at night (16) Anxiety: Code(s): F41.9 - Anxiety disorder, unspecified Category: Medical Plan: Continue Clonazepam 1 mg 3 times a day as needed and Bupropion ER 200 mg QD in AM (17) Depression: Code(s): F32.9 - Major depressive disorder, single episode, unspecified Category: Medical Qualifiers: Depression Type: major depressive disorder Major depression recurrence: recurrent Active/Remission status: currently active Major depression episode severity: unspecified Qualified Code(s): F33.9 - Major depressive disorder, recurrent, unspecified Plan: Continue Quetiapine 200 mg Q HS; is also on Bupropion ER 200 mg QD Follow-up with Psychiatry as scheduled (18) Obesity (BMI 30-39.9): Code(s): E66.9 - Obesity, unspecified Category: Medical Plan: Reinforced diet; exercise and weight loss may be unrealistic and limited due to her physical issues but she is advised to try to stay as active as she can Plan Follow up in 3 months Orders: Orders Complete Blood Count Auto Diff 3 Months D64.9 - Anemia, unspecified Comprehensive Jackson. Panel Fast 3 Months E78.00 - Pure hypercholesterolemia, unspecified Lipid Panel 3 Months E78.00 - Pure hypercholesterolemia, unspecified TSH reflex Free T4 3 Months E78.00 - Pure hypercholesterolemia, unspecified Hemoglobin A1c 3 Months R73.01 - Impaired fasting glucose UA CC w/rflx Micro + Cult 3 Months R30.0 - Dysuria
--- OUTSIDE RECORDS SUMMARY | 2024-08-14 14:23 | XMS_ITS | Data Portability ---
Author Organization [employer] in - [employer] Address [address] [place] [address] Care Team Providers Care Salon Designer Name Role Phone HIM CCA OTHER BECKY [...] Orders prednisone 20 mg tablet 2023 024 [facility]/Pharmacy #[id number], [address] [facility] [place], [address], 18:26:49 Patient TargetsNo targets recorded. Patient InstructionsNo instructions recorded. Reason for Referral None Reported. Medical Equipment None Reported. Allergies Allergen ID Allergen Name Allergen Category Reaction Reaction Severity Criticality Documentation Date Start Date Code Code System Note Provider Name and Address Organization Details Recorded Time 9376 Product containin g penicilli n (product) medicatio n Not available Not available Not available 02/14/2024 56833 8001 SNOMED Not [facility] 03:44:38 8489 aspirin medicatio n Not available Not available Not available 02/14/2024 1191 RxNorm Not Available [facility] - production 4 03:44:38 Medications Name [...] SNOMED-CT Code Diagnosis ICD10 Code Diagnosis Note [id number] Efrain Gomez MD Main - instED [address] [place] [phone] 05/19/2023 18:01:49 05/20/2023 11:31:35 Exacerbation of intermittent asthma 392918071 J45.21 [id number] Iris Boo MD Main - instED [address] [place] [phone] 07/23/2024 18:15:24 07/23/2024 19:53:44 Pruritic rash 30064174 L28.2 69 year old female being evaluated for a year of intermitte nt pruritic rash. Patient reports having a full body rash that comes and goes, has been seen by mutliple doctors including medical communication specialist s, and tried multiple antihistam ofe [...] assessment and plan as documented by the dealer compliance representative. I provided real-time medical direction for this [...] Davidson Member ID Guarantor Name 05/19/2023 1 [facility] - DOS ON OR AFTER 2022 - DUAL ELIGIBLE - HALFWAY OPTIONS AND ONE CARE (MEDICARE REPLACEMENT/ADV ANTAGE - HMO) Celia Parikhgarrettsuzy [id number] Celia Phillips Ziggyarchanaamy 07/23/2024 1 [facility] - DOS ON OR AFTER 2022 - DUAL ELIGIBLE - HALFWAY OPTIONS AND ONE CARE (MEDICARE REPLACEMENT/ADV ANTAGE - HMO) Celia Parikhgarrettarchanaamy [id number] Celia Phillips Ziggysuzy Notes Date Note Type [...] cough, sore throat, fever. Member called her transportation engineering technician, and she cannot be seen until June. Member requesting home visit. Member advised to call 911 with any worsening symptoms. PMH: includes but not limited to HTN, coronary artery disease, asthma, IBD, GERD, anxiety ..................... ..................... ..................... ..................... ..................... ..................... ............... [facility] Nurse Triage Notes (Leonor Vizcaino): Comments: No further information required to process visit. ..................... ..................... ..................... ..................... ..................... ..................... ............... Tutorial Laboratory Supervisor Note From Yuri Bedolla: Encountered patient conscious, [...] performed, both resulted negative; results relayed to [facility]. Skin warm, dry and of appropriate color for ethnicity. Head and neck, free of trauma and edema. ? JVD. Breath sounds diminished in all hopper and exhibit faint expiratory wheezes in the apexes bilaterally. Abdomen soft, non-tender and non-distended. extremities, free of trauma and edema. [facility] contacted: Duoneb treatment administered. 12 lead EKG performed: sinus rhythm with septal T-wave inversion noted. 30 mg of PO prednisone administered. [facility] to write prescription for further treatment at [...] would also like to remain at home. Tutorial Laboratory Supervisor Allergies: Penicillin, Aspirin ..................... ..................... ..................... ..................... ..................... ..................... ............... Disposition: Fulfilled Efrain Gomez MD [address] [facility],[address], [place], [address], [employer] 05/19/2023 19:03:41 07/23/2024 text/html CRC Nurse Triage [...] ..................... ..................... ..................... ..................... ..................... ..................... ............... Tutorial Laboratory Supervisor Note From Bradford Solorio: This 69-year-old female [...] because of the risks. Patient states the global mobility specialist started her on Dupixent injections every two weeks. Patient has had two injections in the global mobility specialist states that this could take two to three months before it starts working. Patient states she went to [facility] over the weekend and was prescribed three [...] her PCP on Tuesday and involve the global mobility specialist if necessary. I instructed her to present to the emergency department for any new or worsening severe symptoms such as chest pain, shortness of breath, dysphagia, high fever, altered mental status. The patient was given the opportunity to ask questions and is agreeable to this plan. ..................... ..................... ..................... ..................... ..................... ..................... ............... [facility] Consulted: Iris Boo ..................... ..................... ..................... ..................... ..................... ..................... ............... Disposition: Fulfilled Iris Boo MD [address] [facility],[address], [place], [address], [employer] [facility] 07/23/2024 19:23:45 OBGyn Episode No OBEpisode recorded.
--- OUTSIDE RECORDS SUMMARY | 2024-08-14 14:23 | XMS_ITS | Clinical Summary ---
Author Organization [facility] [place] [address] Phone Care Team Providers Care Skein Yard Drier Name Role Phone Curt Falk MD Primary Care Provider + [phone] Allergies Active Allergy Reactions Criticality Noted Date [...] HISTORY PROCEDURE: HISTORY OTHER; COMMENT: CYSTOSCOPY HYSTERECTOMY KNEE ARTHROPLASTY CYSTOSCOPY Medical History Medical History Date Comments [...] interstitial cystitis DX :Chronic interstitial cystitis Anxiety Hyperlipidemia Family History Medical History Relation Name Comments [...] Information Value Date Recorded Sex Assigned at Female 07/30/2024 2:35 PM EDT Legal Sex Female 2:18 AM EST Gender Identity Female 07/30/2024 2:35 PM EDT Sexual Orientation Straight 07/30/2024 2: 35 PM EDT Obstetrics History Last Filed Vital Signs Vital Sign Reading Time Taken Comments Blood Pressure 134/66 05/11/2023 12:52 PM EST Si tting L Arm Pulse - - Temperature - - Respiratory Rate - - Oxygen Saturation - - Inhaled Oxygen Concentration - - Weight 93 kg (205 lb) 08/13/2024 10:00 AM EDT Height 149.9 cm (4' 11 ) 08/13/2024 10:00 AM EDT Body Mass Index 41.4 08/13/2024 10:00 AM EDT Plan of Treatment Upcoming Encounters Date Type Department Care Team (Late st Contact Info) Description 08/15/2024 9:00 AM EDT Hospital Encounter [facility] [place] [address] [place] [phone] Quang Hurd MD [address] [address] 08/15/2024 9:00 AM EDT - 08/15/2024 10:30 AM EDT Surgery [facility] [place] [address] [place] [phone] Quang Hurd MD [facility] [address] [address] SACRAL NEUROMODULATOR STAGE 1 [25485 (CPT??) +1 more] 08/27/2024 12:00 PM EDT Hospital Encounter [facility] [place] [address] [place] [phone] Quang Hurd MD [facility] [address] [address] 08/27/2024 12:00 PM EDT - 08/27/2024 1:30 PM EDT Surgery [facility] [place] [address] [place] [phone] Quang Hurd MD [address] [address] SACRAL NEUROMODULATOR STAGE 2 [64[address] (CPT??) +1 more] Scheduled Procedures Name Priority Associated Diagnoses Date/Ti me IMPLANTATION STIMULATOR BLADDER Overactive bladder 08/15/2024 9:00 AM EDT IMPLANTATION STIMULATOR BLAD RODRI STAGE 2 Overactive bladder 08/27/2024 12:00 PM EDT Health Maintenance Due Date Last Done Comments Breast Cancer Screening 1955 Pneumococcal Vaccine: 50+ Ye ars (1 of 1 - PCV) 2004 Zoster Vaccines (1 of 2) 2004 RSV Immunization Adult Patie nts (1 - Risk 60-74 years 1-dose series) 2014 Cholesterol Screening (Lipid Panel) 03/21/2022 Colorectal Cancer Screening: Colonoscopy 03/21/2022 Depression Screening 03/21/2022 Falls Risk Assessment 03/21/2022 Hepatitis C Screening 03/21/2022 Medicare Annual Wellness Visit 03/21/2022 Osteoporosis Screening (Bone Density Screening) 03/21/2022 Social Influencers of Health Screening 03/21/2022 COVID-19 Vaccine ( - 2023-2 5 season) 2023 Influenza Vaccine [...] to complete this topic Insurance MEDICAID - [place] [facility] HALF-WAY OPTIONS Member Subscriber Plan / Payer (Ef fective 2024-Present) Name:Celia Marquez Relation to Subscriber:Self Name:Celia Marquez Payer ID:[id number] Group ID:Not on file Type:Not on file Address: [place] [address] [address] [address] Care Teams Skein Yard Drier Relationship Specialty Start Date End Date Curt Falk MD [address] [place] [address] Dr [address] [place] PCP - General 07/16/21
== END 2024-08-14 13:09 | disposition home or self-care (01) ==
LOC: HO.HMCH 12:27
PROVIDERS: PCP Internal Medicine; Visit Provider Internal Medicine
DX: E78.00 Pure hypercholesterolemia, unspecified (principal); E66.9 Obesity, unspecified; Z68.41 Body mass index [BMI] 40.0-44.9, adult; I10 Essential (primary) hypertension; R73.01 Impaired fasting glucose; M47.27 Other spondylosis with radiculopathy, lumbosacral region; M16.11 Unilateral primary osteoarthritis, right hip; M17.0 Bilateral primary osteoarthritis of knee; M25.50 Pain in unspecified joint; J45.40 Moderate persistent asthma, uncomplicated; K21.9 Gastro-esophageal reflux disease without esophagitis; K22.2 Esophageal obstruction

== ENCOUNTER → 2024-08-14 12:26 | Outpatient (BNVA) | payer OTHER, SELFPAY | PROVIDERS: PCP Internal Medicine; Visit Provider Internal Medicine | DX: E78.00 Pure hypercholesterolemia, unspecified (principal); I10 Essential (primary) hypertension; M47.27 Other spondylosis with radiculopathy, lumbosacral region; M16.11 Unilateral primary osteoarthritis, right hip; M17.0 Bilateral primary osteoarthritis of knee; M25.50 Pain in unspecified joint; J45.40 Moderate persistent asthma, uncomplicated; K21.9 Gastro-esophageal reflux disease without esophagitis; K22.2 Esophageal obstruction; K58.9 Irritable bowel syndrome, unspecified; E55.9 Vitamin D deficiency, unspecified; N30.10 Interstitial cystitis (chronic) without hematuria; N20.0 Calculus of kidney; G47.00 Insomnia, unspecified; F41.9 Anxiety disorder, unspecified; F33.9 Major depressive disorder, recurrent, unspecified; E66.9 Obesity, unspecified; R30.0 Dysuria; R73.01 Impaired fasting glucose; D64.9 Anemia, unspecified; Z68.41 Body mass index [BMI] 40.0-44.9, adult | CPT/HCPCS: 96127; 99212 ==

== ENCOUNTER 2024-08-24 13:43 | Outpatient (AMB) | payer OTHER, SELFPAY ==
--- NOTE | 2024-08-24 13:36 | MHC.OFFVIS ---
Vital Signs 08/24/24 13:43 Height 4 ft 11 in Pulse 76 Pulse Source Pulse Oximeter Pulse Oximetry (%) 97 Intake Visit Reasons: MAT Allergies Penicillins [PENICILLINS] Allergy (Intermediate, Verified 08/24/24 13:44) RASH HPI HPI MAT: Details: She finds medication helpful COUNTS INCLUDE 234 BEDS AT THE [facility] Medical History (Updated 08/27/24 @ 00:17 by Kaye Calvert MD) Opioid use disorder Abdominal pain Depression Anxiety Insomnia Myalgia, upper arm Osteoarthritis of right knee Lumbar spondylosis Foot pain, bilateral BRIDGETTE (obstructive sleep apnea) Asthma KAMILA positive Urticaria Obesity (BMI 30-39.9) Vitamin D deficiency Chronic interstitial cystitis Irritable bowel syndrome (IBS) Arthralgia Osteoarthritis Esophageal stricture GERD (gastroesophageal reflux disease) Left lumbar radiculopathy CAD (coronary artery disease) Pure hypercholesterolemia Benign essential hypertension Surgical History History of surgery History of total right knee replacement (09/22/21) Hx of cystoscopy Status post balloon dilatation of esophageal stricture (~2005) History of cardiac catheterization History of colonoscopy History of nephrolithotomy with removal of calculi History of tooth extraction Family History Father Hypertension Mother Hypertension Diabetes CVD (cardiovascular disease) Daughter No problems noted. Family/Other FH: mental illness Other Mental health problem Substance abuse Social History Housing: Apartment Are you a primary manager medicare marketing to a significant other at home: No Do you presently have visiting nurse or other home services: No Alcohol intake: never Comment: medicated, see MAR Patient Tobacco Use Status: Never used Tobacco e-Cigarette/Vaping Use: Never Used Second Hand Smoke Exposure: No service: No Current occupational status: disabled Cognitive needs: No Hearing needs: No Vision needs: Yes (Glasses) Review of Systems Const All systems reviewed & are unremarkable except as noted in HPI and below Physical Exam Vital Signs: Last Vital Signs Pulse 76 08/24/24 13:43 Pulse Ox 97 08/24/24 13:43 Const General: cooperative Results AMB 14 Panel Urine Drug Screen Urine Marijuana (THC) Negative Last Edit by Georgie Hicks CMA on 08/24/24 13:48 Urine Cocaine Negative Last Edit by Georgie Hicks CMA on 08/24/24 13:48 Urine Morphine Negative Last Edit by Georgie Hicks CMA on 08/24/24 13:48 Urine Methamphetamine Negative Last Edit by Georgie Hicks CMA on 08/24/24 13:48 Urine Amphetamine Negative Last Edit by Georgie Hicks CMA on 08/24/24 13:48 Urine Benzodiazepine Positive Last Edit by Georgie Hicks CMA on 08/24/24 13:48 Urine Barbiturates Negative Last Edit by Georgie Hicks CMA on 08/24/24 13:48 Urine Methadone Negative Last Edit by Georgie Hicks CMA on 08/24/24 13:48 Urine Buprenorphine Positive Last Edit by Georgie Hicks CMA on 08/24/24 13:48 Urine Tricyclic Antidepressant Negative Last Edit by Georgie Hicks CMA on 08/24/24 13:48 Urine MDMA Negative Last Edit by Georgie Hicks CMA on 08/24/24 13:48 Urine Oxycodone Negative Last Edit by Georgie Hicks CMA on 08/24/24 13:48 Urine Phencyclidine Negative Last Edit by Georgie Hicks CMA on 08/24/24 13:48 Urine Propoxyphene Negative Last Edit by Georgie Hicks CMA on 08/24/24 13:48 Results Reviewed Results Reviewed: Laboratory Last Values POC Urine Buprenorphine Positive 08/24/24 13:47 POC Urine Morphine Negative 08/24/24 13:47 POC Urine Oxycodone Negative 08/24/24 13:47 POC Urine Methadone Negative 08/24/24 13:47 POC Urine Propoxyphene Negative 08/24/24 13:47 POC Urine Barbiturates Negative 08/24/24 13:47 POC U Tricyclic Antidpr Negative 08/24/24 13:47 POC Urine PCP Negative 08/24/24 13:47 POC Ur Amphetamines Negative 08/24/24 13:47 POC Ur Methamphetamine Negative 08/24/24 13:47 POC Urine MDMA Negative 08/24/24 13:47 POC Ur Benzodiazepine Positive 08/24/24 13:47 POC Urine Cocaine Negative 08/24/24 13:47 POC Ur Marijuana (THC) Negative 08/24/24 13:47 Assessment & Plan Assessment & Plan (1) Opioid use disorder: Comment: She is doing well Code(s): F11.90 - Opioid use, unspecified, uncomplicated Category: Medical Plan: Continue Suboxone See as scheduled. Orders: Orders AMB 14 Panel Urine Drug Screen 08/24/24 Z51.81 - Encounter for therapeutic drug level monitoring Medications: New buprenorphine HCl (Belbuca) 150 mcg buccal Q12H 60 ea 1RF 30 days Coding Level of Care Code Est Pt Level 3 (48767) Diagnoses Opioid use disorder F11.90
[2024-08-24 13:43] VITALS: PULSE 76; O2SAT 97
--- OUTSIDE RECORDS SUMMARY | 2024-08-24 13:46 | XMS_ITS | Data Portability ---
Author Organization [employer] [place] [employer] - Patient Communicator Address [address] [place] [address] Care Team Providers Care Winder Hand Name Role Phone HIM CCA OTHER BECKY [...] Orders prednisone 20 mg tablet 2023 024 [facility]/Pharmacy #[id number], [address] [facility] [place], [address], 18:26:49 Patient TargetsNo targets recorded. Patient InstructionsNo instructions recorded. Reason for Referral None Reported. Medical Equipment None Reported. Allergies Allergen ID Allergen Name Allergen Category Reaction Reaction Severity Criticality Documentation Date Start Date Code Code System Note Provider Name and Address Organization Details Recorded Time 9428 Product containin g penicilli n (product) medicatio n Not available Not available Not available 02/14/2024 77167 8001 SNOMED Not Available [facility] 4 03:44:38 8489 aspirin medicatio n Not available Not available Not available 02/14/2024 1191 RxNorm Not Available [facility] - production 4 03:44:38 Medications Name [...] SNOMED-CT Code Diagnosis ICD10 Code Diagnosis Note [id number] Efrain Gomez MD Main - [facility] [address] [place] [phone] 05/19/2023 18:01:49 05/20/2023 11:31:35 Exacerbation of intermittent asthma 892400707 J45.21 54716 Iris Boo MD Main - inst[facility] [address] [place] [phone] 07/23/2024 18:15:24 07/23/2024 19:53:44 Pruritic rash 82616996 L28.2 69 year old female being evaluated for a year of intermitte nt pruritic rash. Patient reports having a full body rash that comes and goes, has been seen by mutliple doctors including auto adjudication specialist s, and tried multiple antihistam ofe [...] assessment and plan as documented by the plasma center nurse. I provided real-time medical direction for this [...] Recorded Advance Directives Directive None Recorded Payers Insurance Date Sequence Insurance Name Policy Number Policy Davidson Covered Member ID Davidson Member ID Guarantor Name 07/23/2024 1 [facility] - DOS ON OR AFTER 2022 - DUAL ELIGIBLE - SENIOR LIVING OPTIONS AND ONE CARE (MEDICARE REPLACEMENT/ADV ANTAGE - HMO) Celia Madrigal [id number] Celia Madrigal Notes Date Note Type Note [...] cough, sore throat, fever. Member called her social media marketing analyst, and she cannot be seen until June. Member requesting home visit. Member advised to call 911 with any worsening symptoms. PMH: includes but not limited to HTN, coronary artery disease, asthma, IBD, GERD, anxiety ..................... ..................... ..................... ..................... ..................... ..................... ............... [facility] Nurse Triage Notes (Leonor Vizcaino): Comments: No further information required to process visit. ..................... ..................... ..................... ..................... ..................... ..................... ............... Workgroup Leader Note From Yuri Bedolla: Encountered patient conscious, [...] would also like to remain at home. Workgroup Leader Allergies: Penicillin, Aspirin ..................... ..................... ..................... ..................... ..................... ..................... ............... Disposition: Luann Efrain Gomez MD [address] [facility], [place], [address], [employer] 05/19/2023 19:03:41 07/23/2024 text/html [facility] Nurse Triage [...] Coronary Artery Disease, Hypertension PMH Reviewed at 07/23/2024:33 Allergies Reviewed at 07/23/2024:33 Comments: 69 y.o [...] ..................... ..................... ..................... ..................... ..................... ..................... ............... Workgroup Leader Note From Bradford Solorio: This 69-year-old female [...] because of the risks. Patient states the automatic profile sander operator started her on Dupixent injections every two weeks. Patient has had two injections in the automatic profile sander operator states that this could take two to three months before it starts working. Patient states she went to [facility] over the weekend and was prescribed three [...] her PCP on Tuesday and involve the automatic profile sander operator if necessary. I instructed her to present to the emergency department for any new or worsening severe symptoms such as chest pain, shortness of breath, dysphagia, high fever, altered mental status. The patient was given the opportunity to ask questions and is agreeable to this plan. ..................... ..................... ..................... ..................... ..................... ..................... ............... [facility] Consulted: Iris Boo ..................... ..................... ..................... ..................... ..................... ..................... ............... Disposition: Fulfilled Iris Boo MD [address] [facility], [place], [address], [employer] 07/23/2024 19:23:45 OBGyn Episode No OBEpisode recorded.
--- OUTSIDE RECORDS SUMMARY | 2024-08-24 13:46 | XMS_ITS | Continuity of Care Document ---
Author Organization [employer] Address [address] [place] [address] Phone Care Team Providers Care Oil Operator Name Role Phone Leonor Yousif DMD Unavailable U navailable Procedures Procedure Date Intraoral-Periapical First Film 024 Intraoral-Periapical Each Additional Sandoval m Intraoral-Periapical Each Additional Sandoval m Intraoral-Periapical Each Additional Sandoval m Intraoral-Periapical Each Additional Sandoval m Intraoral-Periapical Each Additional Sandoval m Intraoral-Periapical Each Additional Sanodval m Intraoral-Periapical Each Additional Sandoval m Comprehensive [...] Diagnoses Date Provider Providers Copied on Encounter [employer], [address] [place], [place], [id number], [place] tel:[phone] [facility] Encounter for dental examination and cleaning with abnormal findingsTobacco abuse counselingOther specified counselingRisk for dental caries, highDietary counseling and surveillance David Galvez. [address], [place], [id number], [place]. tel:[phone] Family History Family Member Type Diagnosis Age At Onset No Information Payers Payer name Insurance type Covered libertarian ID Omid otero(s) [facility] OP [id number] DENTICAL [id number] Social History Type Description Quantity Date Captured [...]
--- OUTSIDE RECORDS SUMMARY | 2024-08-24 13:46 | XMS_ITS | Continuity of Care Document ---
Author Organization [facility] Address [address] [place] [address] Phone Care Team Providers Care Anesthesiologist Name Role Phone Resident MD, Internal Med Unavailable Unavai lable Allergies, Adverse Reactions, Alerts Substance Reaction Status Criticality No Known Allergies Active No Inform ation Medications Medication Instructions Dosage Effective Dates (start - stop) Status Comments fluticasone propionate 50 mcg/actuation nasal spray,suspension instill 2 spray into each nostril once daily - Active levothyroxine 75 mcg tablet take 1 tablet by mouth once daily for THYROID - Active Claritin Liqui-Gel 10 mg capsule take 1 pill by oral route every day 1 pill - Active atorvastatin 40 mg tablet take 1 tablet by mouth once daily - Active Coreg 6.25 mg tablet take 1 tablet by mouth twice a day with food - Active bjijnqnv-qxsabmtkx-r ydrocort 3.5 mg/mL-10,000 unit/mL-1 % ear solution instill 4 drop by otic route 3 times every day into affected ear(s) 4.00 drop - Active famotidine 20 mg tablet take 1 tablet by mouth twice a day for GASTRITIS OR GERD - Active guaifenesin ER 600 mg tablet, extended release 12 hr take 1 tablet by oral route every 12 hours as needed as needed for COUGH 600 MG - Active Boostrix Tdap 2.5 Lf unit-8 mcg-5 Lf/0.5 mL intramuscular suspension inject 0.5 milliliter by intramuscular route once - Active Dry Eye Relief 1 %-0.2 %-0.2 % drops for dry eye up to four times daily - Active nitrofurantoin macrocrystal 100 mg capsule take 1 capsule by oral route every 12 hours for 5 days with food for urinary tract infection 100 MG - No Longer Active FLUTICASONE PROP 50 MCG SPRAY instill 2 spray into each nostril once daily - No Longer Active Claritin Liqui-Gel 10 mg capsule take 1 pill by oral route every day 1 pill - No Longer Active levothyroxine 75 mcg tablet take 1 tablet by mouth once daily for THYROID - No Longer Active ATORVASTATIN 40 MG TABLET take 1 tablet by mouth once daily - No Longer Active CARVEDILOL 6.25 MG TABLET take 1 tablet by mouth twice a day with food - No Longer Active Procedures Procedure Date Urine Dipstick HANDLING OF SPECIMEN INTERMED EXAM,ESTAB PAT LIMITED EXAM,ESTAB PAT. ACEs Screening Negative Score [...] With Patient And O r Family M E[facility] GUARD - WALK IN [facility] PT Psychotherapy, 30 Min With Patient And O r Family M [facility] - WALK IN [facility] PT Non-Billable Phone Consultation Psychotherapy, 30 Min With Patient And O r Family M [facility] - WALK IN [facility] PT Psychotherapy, 45 Min With [...] With Patient And O r Family M [facility] - WALK IN [facility] PT VENIPUNCTURE LIMITED EXAM,ESTAB PAT. Psychotherapy, 30 Min With Patient And O r Family M [facility] - WALK IN [facility] PT HEMOGLOBIN (HGB) INTERMED EXAM,ESTAB [...] LAB SAMPLE DRAWN CASE MANAGEMENT LEVEL I Results Test Name Date and Time Measure Units Reference Range Abnormal Flag Status Comments Panel Description: LIPID PANEL, STANDARD PendingInco mplete CHOLESTEROL, TOTAL 23:48:29 PendingIncomp lete Performed by:[employer] (EN)[address] [place] [address] Panel Description: LIPID PANEL, STANDARD PendingInco mplete CHOLESTEROL, TOTAL 01:24:43 PendingIncomp lete Performed by:[employer] (EN)[address] [place] [address] Panel Description: LIPID PANEL, STANDARD Final CHOLESTEROL, TOTAL 09:33:46 169 mg/dL <200 N Final Performed by:[employer] (EN)[address] [place] [address] Panel Description: LIPID PANEL, STANDARD Final CHOLESTEROL, TOTAL 12:30:11 169 mg/dL <200 N Final Performed by:[employer] (EN)[address] [place] [address] Panel Description: Bacteria identified in Urine by Culture PendingInco mplete CULTURE 23:48:29 SEE NOTE PendingIncomp lete Performed by:[employer] (EN)[address] [place] [address] Panel Description: Bacteria identified in Urine by Culture PendingInco mplete CULTURE 01:24:43 SEE NOTE PendingIncomp lete Performed by:[employer] (EN)[address] [place] [address] Panel Description: Bacteria identified in Urine by Culture PendingInco mplete CULTURE 09:33:46 SEE NOTE PendingIncomp lete Performed by:[employer] (EN)[address] [place] [address] Panel Description: Bacteria identified in Urine by Culture Final CULTURE, URINE, ROUTINE 12:30:11 SEE NOTE Final CULTURE, URINE , ROUTINE Micro Number: [id number] Test Status: Final Specimen Source: Urine Specimen Quality: Adequate Result: Less than 10,000 CFU/mL of single Gram positive organism isolated. No further testing will be performed. If clinically indicated, recollection using a method to minimize contamination, with prompt transfer to Urine Culture Transport Tube, is recommended.Per formed by:[employer] (EN)[address] [place] [address] Panel Description: LIPID PANEL, STANDARD PendingInco mplete HDL CHOLESTEROL 23:48:29 PendingIncomp lete Performed by:[employer] (EN)[address] [place] [address] Panel Description: LIPID PANEL, STANDARD PendingInco mplete HDL CHOLESTEROL 01:24:43 PendingIncomp lete Performed by:[employer] (EN)[address] [place] [address] Panel Description: LIPID PANEL, STANDARD Final HDL CHOLESTEROL 09:33:46 46 mg/dL > OR = 50 L Final Performed by:[employer] (EN)[address] [place] [address] Panel Description: LIPID PANEL, STANDARD Final HDL CHOLESTEROL 12:30:11 46 mg/dL > OR = 50 L Final Performed by:[employer] (EN)[address] [place] [address] Panel Description: LIPID PANEL, STANDARD PendingInco mplete TRIGLYCERIDE S 23:48:29 PendingIncomp lete Performed by:[employer] (EN)[address] [place] [address] Panel Description: LIPID PANEL, STANDARD PendingInco mplete TRIGLYCERIDE S 01:24:43 PendingIncomp lete Performed by:[employer] (EN)[address] [place] [address] Panel Description: LIPID PANEL, STANDARD Final TRIGLYCERIDE S 09:33:46 105 mg/dL <150 N Final Performed by:[employer] (EN)[address] [place] [address] Panel Description: LIPID PANEL, STANDARD Final TRIGLYCERIDE S 12:30:11 105 mg/dL <150 N Final Performed by:[employer] (EN)[address] [place] [address] Panel Description: LIPID PANEL, STANDARD PendingInco mplete LDL-CHOLESTE ROL 23:48:29 PendingIncomp lete Performed by:[employer] (EN)[address] [place] [address] Panel Description: LIPID PANEL, STANDARD PendingInco mplete LDL-CHOLESTE ROL 01:24:43 PendingIncomp lete Performed by:[employer] (EN)[address] [place] [address] Panel Description: LIPID PANEL, STANDARD Final LDL-CHOLESTE ROL 09:33:46 103 mg/dL (calc) H Final Reference range: <100 Desirable range <100 mg/dL for primary prevention; <70 mg/dL for patients with CHD or diabetic patients with > or = 2 CHD risk factors. LDL-C is now calculated using the Camila calculation, which is a validated novel method providing better accuracy than the Friedewald equation in the estimation of LDL-C. Jak CRAWFORD et al. ROHITH. 2013;310(19): 9382-1592 (http://educati on.[employer].com.[employer]/faq/FA Q164)Performed by:[employer] [facility] Magana (EN)[address] [place] [address] Panel Description: LIPID PANEL, STANDARD Final LDL-CHOLESTE ROL 12:30:11 103 mg/dL (calc) H Final Reference range: <100 Desirable range <100 mg/dL for primary prevention; <70 mg/dL for patients with CHD or diabetic patients with > or = 2 CHD risk factors. LDL-C is now calculated using the Camila calculation, which is a validated novel method providing better accuracy than the Friedewald equation in the estimation of LDL-C. Jak CRAWFORD et al. ROHITH. 2013;310(19): 7693-2029 (http://educati on.[employer].com.[employer]/faq/FA Q164)Performed by:[employer] [facility] (EN)[address] [place] [address] Panel Description: LIPID PANEL, STANDARD PendingInco mplete CHOL/HDLC RATIO 23:48:29 PendingIncomp lete Performed by:[employer] (EN)[address] [place] [address] Panel Description: LIPID PANEL, STANDARD PendingInco mplete CHOL/HDLC RATIO 01:24:43 PendingIncomp lete Performed by:[employer] (EN)[address] [place] [address] Panel Description: LIPID PANEL, STANDARD Final CHOL/HDLC RATIO 09:33:46 3.7 (calc) <5.0 N Final Performed by:[employer] (EN)[address] [place] [address] Panel Description: LIPID PANEL, STANDARD Final CHOL/HDLC RATIO 12:30:11 3.7 (calc) <5.0 N Final Performed by:[employer] (EN)[address] [place] [address] Panel Description: LIPID PANEL, STANDARD PendingInco mplete NON HDL CHOLESTEROL 23:48:29 PendingIncomp lete Performed by:[employer] (EN)[address] [place] [phone] Panel Description: LIPID PANEL, STANDARD PendingInco mplete NON HDL CHOLESTEROL 01:24:43 PendingIncomp lete Performed by:[employer] (EN)[address] [place] [address] Panel Description: LIPID PANEL, STANDARD Final NON HDL CHOLESTEROL 09:33:46 123 mg/dL (calc) <130 N Final For patients with diabetes plus 1 major ASCVD risk factor, treating to a non-HDL-C goal of <100 mg/dL (LDL-C of <70 mg/dL) is considered a therapeutic option.Performe d by:[employer] (EN)[address] [place] [address] Panel Description: LIPID PANEL, STANDARD Final NON HDL CHOLESTEROL 12:30:11 123 mg/dL (calc) <130 N Final For patients with diabetes plus 1 major ASCVD risk factor, treating to a non-HDL-C goal of <100 mg/dL (LDL-C of <70 mg/dL) is considered a therapeutic option.Performe d by:[employer] (EN)[address] [place] [phone] Panel Description: URINALYSI S, COMPLETE W/REFLEX TO CULTURE Final COLOR 23:48:29 YELLOW YELLOW N Final Performed by:[employer] (EN)[address] [place] [phone] APPEARANCE 23:48:29 CLEAR CLEAR N Final Performed by:[employer] (EN)[address] [place] [address] SPECIFIC GRAVITY 23:48:29 1.016 1.001-1.03 5 N Final Performed by:[employer] (EN)[address] [place] [address] PH 23:48:29 7.0 5.0-8.0 N Final Performed by:[employer] (EN)[address] [place] [address] GLUCOSE 23:48:29 NEGATIVE NEGATIVE N Final Performed by:[employer] (EN)[address] [place] [phone] BILIRUBIN 23:48:29 NEGATIVE NEGATIVE N Final Performed by:[employer] (EN)[address] [place] [phone] KETONES 23:48:29 NEGATIVE NEGATIVE N Final Performed by:[employer] [facility] [employer] (EN)[address] [place] [phone] OCCULT BLOOD 23:48:29 NEGATIVE NEGATIVE N Final Performed by:[employer] [facility] [employer] (EN)[address] [place] [address] [phone] PROTEIN 23:48:29 NEGATIVE NEGATIVE N Final Performed by:[employer] (EN)[address] [place] [phone] NITRITE 23:48:29 NEGATIVE NEGATIVE N Final Performed by:[employer] (EN)[address] [place] [address] [phone] LEUKOCYTE ESTERASE 23:48:29 1+ NEGATIVE A Final Performed by:[employer] (EN)[address] [place] [phone] WBC 23:48:29 NONE SEEN /HPF < OR = 5 N Final Performed by:[employer] (EN)[address] [place] [address] [phone] RBC 23:48:29 NONE SEEN /HPF < OR = 2 N Final Performed by:[employer] (EN)[address] [place] [phone] SQUAMOUS EPITHELIAL CELLS 23:48:29 6-10 /HPF < OR = 5 A Final Performed by:[employer] (EN)[address] [place] [phone] BACTERIA 23:48:29 FEW /HPF NONE SEEN A Final Performed by:[employer] (EN)[address] [place] [phone] HYALINE CAST 23:48:29 NONE SEEN /LPF NONE SEEN N Final Performed by:[employer] (EN)[address] [place] [address] [phone] NOTE 23:48:29 SEE COMMENT Final This urine was analyzed for the presence of WBC, RBC, bacteria, casts, and other formed elements. Only those elements seen were reported. Performed by:[employer] (EN)[address] [place] [address] Panel Description: URINALYSI S, COMPLETE W/REFLEX TO CULTURE Final COLOR 01:24:43 YELLOW YELLOW N Final Performed by:[employer] (EN)[address] [place] [address] APPEARANCE 01:24:43 CLEAR CLEAR N Final Performed by:[employer] (EN)[address] [place] [address] SPECIFIC GRAVITY 01:24:43 1.016 1.001-1.03 5 N Final Performed by:[employer] (EN)[address] [place] [phone] PH 01:24:43 7.0 5.0-8.0 N Final Performed by:[employer] (EN)[address] [place] [address] [phone] GLUCOSE 01:24:43 NEGATIVE NEGATIVE N Final Performed by:[employer] (EN)[address] [place] [address] [phone] BILIRUBIN 01:24:43 NEGATIVE NEGATIVE N Final Performed by:[employer] (EN)[address] [place] [phone] KETONES 01:24:43 NEGATIVE NEGATIVE N Final Performed by:[employer] (EN)[address] [place] [address] [phone] OCCULT BLOOD 01:24:43 NEGATIVE NEGATIVE N Final Performed by:[employer] (EN)[address] [place] [phone] PROTEIN 01:24:43 NEGATIVE NEGATIVE N Final Performed by:[employer] [facility] [employer] (EN)[address] [place] [address] NITRITE 01:24:43 NEGATIVE NEGATIVE N Final Performed by:[employer] [facility] [employer] (EN)[address] [place] [address] LEUKOCYTE ESTERASE 01:24:43 1+ NEGATIVE A Final Performed by:[employer] [facility] [employer] (EN)[address] [place] [address] WBC 01:24:43 NONE SEEN /HPF < OR = 5 N Final Performed by:[employer] [facility] [employer] (EN)[address] [place] [address] RBC 01:24:43 NONE SEEN /HPF < OR = 2 N Final Performed by:[employer] [facility] [employer] (EN)[address] [place] [address] SQUAMOUS EPITHELIAL CELLS 01:24:43 6-10 /HPF < OR = 5 A Final Performed by:[employer] [facility] [employer] (EN)[address] [place] [address] BACTERIA 01:24:43 FEW /HPF NONE SEEN A Final Performed by:[employer] [facility] [employer] (EN)[address] [place] [address] HYALINE CAST 01:24:43 NONE SEEN /LPF NONE SEEN N Final Performed by:[employer] [facility] [employer] (EN)[address] [place] [address] NOTE 01:24:43 SEE COMMENT Final This urine was analyzed for the presence of WBC, RBC, bacteria, casts, and other formed elements. Only those elements seen were reported. Performed by:[employer] [facility] [employer] (EN)[address] [place] [address] Panel Description: URINALYSI S, COMPLETE W/REFLEX TO CULTURE Final COLOR 09:33:46 YELLOW YELLOW N Final Performed by:[employer] (EN)[address] [place] [address] APPEARANCE 09:33:46 CLEAR CLEAR N Final Performed by:[employer] (EN)[address] [place] [address] SPECIFIC GRAVITY 09:33:46 1.016 1.001-1.03 5 N Final Performed by:[employer] (EN)[address] [place] [address] PH 09:33:46 7.0 5.0-8.0 N Final Performed by:[employer] (EN)[address] [place] [address] GLUCOSE 09:33:46 NEGATIVE NEGATIVE N Final Performed by:[employer] (EN)[address] [place] [phone] BILIRUBIN 09:33:46 NEGATIVE NEGATIVE N Final Performed by:[employer] (EN)[address] [place] [address] [phone] KETONES 09:33:46 NEGATIVE NEGATIVE N Final Performed by:[employer] (EN)[address] [place] [address] [phone] OCCULT BLOOD 09:33:46 NEGATIVE NEGATIVE N Final Performed by:[employer] (EN)[address] [place] [address] [phone] PROTEIN 09:33:46 NEGATIVE NEGATIVE N Final Performed by:[employer] (EN)[address] [place] [address] [phone] NITRITE 09:33:46 NEGATIVE NEGATIVE N Final Performed by:[employer] (EN)[address] [place] [address] LEUKOCYTE ESTERASE 09:33:46 1+ NEGATIVE A Final Performed by:[employer] (EN)[address] [place] [phone] WBC 09:33:46 NONE SEEN /HPF < OR = 5 N Final Performed by:[employer] (EN)[address] [place] [address] [phone] RBC 09:33:46 NONE SEEN /HPF < OR = 2 N Final Performed by:[employer] (EN)[address] [place] [address] [phone] SQUAMOUS EPITHELIAL CELLS 09:33:46 6-10 /HPF < OR = 5 A Final Performed by:[employer] [facility] [employer] (EN)[address] [place] [address] [phone] BACTERIA 09:33:46 FEW /HPF NONE SEEN A Final Performed by:[employer] (EN)[address] [place] [address] HYALINE CAST 09:33:46 NONE SEEN /LPF NONE SEEN N Final Performed by:[employer] [facility] [employer] (EN)[address] [place] [address] NOTE 09:33:46 SEE COMMENT Final This urine was analyzed for the presence of WBC, RBC, bacteria, casts, and other formed elements. Only those elements seen were reported. Performed by:[employer] (EN)[address] [place] [address] [phone] Panel Description: URINALYSI S, COMPLETE W/REFLEX TO CULTURE Final COLOR 12:30:11 YELLOW YELLOW N Final Performed by:[employer] [facility] [employer] (EN)[address] [place] [address] [phone] APPEARANCE 12:30:11 CLEAR CLEAR N Final Performed by:[employer] [facility] [employer] (EN)[address] [place] [address] [phone] SPECIFIC GRAVITY 12:30:11 1.016 1.001-1.03 5 N Final Performed by:[employer] (EN)[address] [place] [address] [phone] PH 12:30:11 7.0 5.0-8.0 N Final Performed by:[employer] (EN)[address] [place] [address] [phone] GLUCOSE 12:30:11 NEGATIVE NEGATIVE N Final Performed by:[employer] (EN)[address] [place] [address] BILIRUBIN 12:30:11 NEGATIVE NEGATIVE N Final Performed by:[facility] [employer] [facility] [facility]zy (EN)[address] [place] [phone] KETONES 12:30:11 NEGATIVE NEGATIVE N Final Performed by:[facility] Private Location [employer] [facility] [place] (EN)[address] [place] [address] [phone] OCCULT BLOOD 12:30:11 NEGATIVE NEGATIVE N Final Performed by:[employer] [facility] [employer] (EN)[address] [place] [address] [phone] PROTEIN 12:30:11 NEGATIVE NEGATIVE N Final Performed by:[employer] [facility] [employer] (EN)[address] [place] [address] [phone] NITRITE 12:30:11 NEGATIVE NEGATIVE N Final Performed by:[employer] [facility] [employer] (EN)[address] [place] [address] [phone] LEUKOCYTE ESTERASE 12:30:11 1+ NEGATIVE A Final Performed by:[employer] [facility] [employer] [place] (EN)[address] [place] [address] [phone] WBC 12:30:11 NONE SEEN /HPF < OR = 5 N Final Performed by:[employer] [facility] [employer] (EN)[address] [place] [address] [phone] RBC 12:30:11 NONE SEEN /HPF < OR = 2 N Final Performed by:[employer] [facility] [employer] (EN)[address] [place] [address] [phone] SQUAMOUS EPITHELIAL CELLS 12:30:11 6-10 /HPF < OR = 5 A Final Performed by:[employer] [facility] [employer] (EN)[address] [place] [address] [phone] BACTERIA 12:30:11 FEW /HPF NONE SEEN A Final Performed by:[facility] [employer] (EN)[address] [place] [address] [phone] HYALINE CAST 12:30:11 NONE SEEN /LPF NONE SEEN N Final Performed by:[employer] (EN)[address] [place] [address] NOTE 12:30:11 SEE COMMENT Final This urine was analyzed for the presence of WBC, RBC, bacteria, casts, and other formed elements. Only those elements seen were reported. Performed by:[employer] (EN)[address] [place] [phone] Panel Description: REFLEXIVE URINE CULTURE Amanda l REFLEXIVE URINE CULTURE 23:48:29 SEE COMMENT Final CULTURE INDICATED - RESULTS TO FOLLOWPerformed by:[facility] [employer] (EN)[address] [place] [address] Panel Description: REFLEXIVE URINE CULTURE Amanda l REFLEXIVE URINE CULTURE 01:24:43 SEE COMMENT Final CULTURE INDICATED - RESULTS TO FOLLOWPerformed by:[facility] [employer] (EN)[address] [place] [address] Panel Description: REFLEXIVE URINE CULTURE Amanda l REFLEXIVE URINE CULTURE 09:33:46 SEE COMMENT Final CULTURE INDICATED - RESULTS TO FOLLOWPerformed by:[facility] - Private Location [employer] (EN)[address] [place] [address] [phone] Panel Description: REFLEXIVE URINE CULTURE Amanda l REFLEXIVE URINE CULTURE 12:30:11 SEE COMMENT Final CULTURE INDICATED - RESULTS TO FOLLOWPerformed by:[facility] [employer] (EN)[address] [place] [address] [phone] Panel Description: TSH W/REFLEX TO FT4 PendingInco mplete TSH W/REFLEX TO FT4 23:48:29 PendingIncomp lete Performed by:[employer] (EN)[address] [place] [address] Panel Description: TSH W/REFLEX TO FT4 Final TSH W/REFLEX TO FT4 01:24:43 2.36 mIU/L 0.40-4.50 N Final Performed by:[employer] (EN)[address] [place] [address] Panel Description: TSH W/REFLEX TO FT4 Final TSH W/REFLEX TO FT4 09:33:46 2.36 mIU/L 0.40-4.50 N Final Performed by:[employer] (EN)[address] [place] [address] Panel Description: TSH W/REFLEX TO FT4 Final TSH W/REFLEX TO FT4 12:30:11 2.36 mIU/L 0.40-4.50 N Final Performed by:[employer] (EN)[address] [place] [address] Advance Directives Directive Yes / No Effective Date File Name No Information Encounters Encounter Description Practice Location Reason(s) For Visit Diagnoses Date Provider Providers Copied on Encounter INTERMED EXAM,ESTAB PAT [facility], [address] [place], [address], tel: [phone] [facility] HPI (chief complaint) Body mass index [BMI] 25.0-25.9, adultDental decayHyperlip idemia, unspecifiedHy pertensionHyp othyroidism, unspecifiedHe althcare maintenanceDy suriaOther abnormal findings in urine 5 Resident Internal Med. . [facility], [address] [place], [address], [place] tel: [phone] [facility] No Information [address], [id number], [place]. tel:[phone] LIMITED EXAM,ESTAB PAT. [facility], [address] [place], [address], [place] tel: [phone] [facility] HPI (chief complaint) Acute otitis externa of right ear, unspecified typeAcute coughAcute tonsillitis, unspecified etiologyHyper tensionHypoth yroidism, unspecifiedHy perlipidemia, unspecifiedSy mptomatic varicose veins of both lower extremitiesDe ntal decayPrediabe tesHealthcare maintenance Fe 5 Resident Internal Med. . LIMITED EXAM,ESTAB PAT. [facility], [address] [place], [address], [place] tel:[phone] [facility] Cough (chief complaint)MOSES (chief complaint)hpi (chief complaint) Encounter for screening, unspecifiedAc jasiel otitis externa of right ear, unspecified typeAcute coughAcute tonsillitis, unspecified etiology 5 Enrico Saravia. [address] [place], [id number], [place]. tel:[phone] [facility], [address] [place], [address], [place] tel:[phone] [facility] No Information 5 Noe Lopez. [address], [place], [id number], [place]. [phone] [facility], [address] [place], [address], [place] tel:[phone] [facility] No Information 4 Noe Lopez. [address], [place], [id number], [place]. [phone] INTERMED EXAM,ESTAB [facility], [address] [place], [address], [place] tel:[phone] [facility] hypertension (chief complaint)hcm (chief complaint)HPI (chief complaint) HypertensionH ypothyroidism , unspecifiedHy perlipidemia, unspecifiedSy mptomatic varicose veins of both lower extremitiesDe ntal decayPrediabe tesHealthcare maintenanceAl lergic rhinitisImpac jessie cerumen, unspecified earAcute otitis externa of right ear, unspecified type 4 Resident Internal Med. . LIMITED EXAM,ESTAB [facility]. [facility], [address] [place], [address], [place] tel:[phone] [facility] HTN F/u (chief complaint) Body mass index [BMI] 28.0-28.9, adultHyperten sara 4 Resident Internal Med. . INTERMED EXAM,[facility] [facility], [address] [place], [address], tel:[phone] [facility] hypertension (chief complaint)thy roid (chief complaint)HCM (chief complaint)hpi (chief complaint) Hypothyroidis m, unspecifiedHy perlipidemia, unspecifiedEs sential (primary) hypertensionS ymptomatic varicose veins of both lower extremitiesHe althcare maintenanceBr east screeningOste oporosis screeningEnco unter for immunizationD ental decayPrediabe lui 4 Resident Internal Med. . [facility], [address] [place], [address], tel: [phone] [facility] Counseling, unspecified 3 Health Education. . [facility], [address] [place] [address], [address], tel:[phone] [facility] Counseling, unspecified 3 Health Education. . INTERMED EXAM,[facility], [address] [place], [address], tel:[phone] [facility] varicose veins (chief complaint) Symptomatic varicose veins of both lower extremitiesEs sential (primary) hypertensionH yperlipidemia , unspecifiedHy pothyroidism, unspecified 3 Resident Internal Med. . INTERMED EXAM, [facility], [address] [place], [address], tel:[phone] [facility] hypertension (chief complaint)hyp erlipidemia (chief complaint)Thy roid problems (chief complaint) Healthcare maintenanceHy pothyroidism, unspecifiedHy perlipidemia, unspecifiedHy pertensionBod y mass index [BMI] 28.0-28.9, adultImmuniza tion not carried out because of patient refusalEncoun ter for immunizationS easonal allergies 3 Resident Internal Med. . [facility], [address] [place] [address], [address], tel:[phone] [facility]isol [facility] No Information 3 [facility]. [address] [place], [address], [place]. tel:[phone] Psychotherap y, 30 Min With Patient And Or Family M [facility], [address] [place], [address], [place] tel:[phone] [facility] Adjustment disorder with mixed anxiety and depressed mood 3 Fredrick Suzette. [address] [place], [place], [id number], [place]. tel:[phone] Psychotherap y, 30 Min With Patient And Or Family M [facility], [address] [place], [address], [place] tel:[phone] [facility] Adjustment disorder with mixed anxiety and depressed mood 3 Fredrick Suzette. [address] [place], [id number], [place]. tel:[phone] [facility], [address] [place], [address], [place] tel:[phone] [facility] No Information 2 Management Case. [address] [place], [id number], [place]. tel:[phone] Psychotherap y, 30 Min With Patient And Or Family M [facility], [address] [place], [address], [place] tel:[phone] [facility] Adjustment disorder with anxiety 2 Fredrick Suzette. [address] [place], [id number], [place]. tel:[phone] Psychotherap y, 45 Min With Patient And Or Family M [facility], [address] [place], [address], [place] tel:[phone] [facility] Adjustment disorder with mixed anxiety and depressed mood 2 Fredrick Suzette. [address] [place], [id number], [place]. tel:[phone] Psychotherap y, 45 Min With Patient And Or Family M [facility], [address] [place], [address], [place] tel: [phone] [facility] Adjustment disorder with mixed anxiety and depressed mood Oct-2 2 Fredrick Suzette. [address] [place], [id number], [place]. [phone] INTERMED EXAM,ESTAB PAT [facility], [address] [place], [address], [place] tel: [phone] [facility] Eye problems (chief complaint)Hyp othyroidism (chief complaint)HCM (chief complaint) Immunization not carried out because of patient refusalHypoth yroidism, unspecifiedBl epharitis of upper eyelids of both eyes, unspecified typeHypertens ionHyperlipid emia, unspecifiedAl lergic conjunctiviti s, bilateralPain of right eyeEncounter for immunization Jan- 2 Resident MED/PED. . Psychotherap y, 60 Min With Patient And Or Family M [facility], [address] [place], [address], [place] tel: [phone] [facility] Adjustment disorder with mixed anxiety and depressed mood Jan- 2 Fredrick Suzette. [address] [place], [place], [id number], [place]. tel:[phone] Psychotherap y, 60 Min With Patient And Or Family M [facility], [address] [place], [address], [place] tel: [phone] [facility] Adjustment disorder with mixed anxiety and depressed mood Oct-0 2 Fredrick Suzette. [address] [facility] [place], [id number], [place]. tel:[phone] Psychotherap y, 60 Min With Patient And Or Family M [facility], [address] [place], [address], [place] tel: [phone] [facility] Adjustment disorder with mixed anxiety and depressed mood Sep-3 2 Fredrick Suzette. [address] [place], [place], [id number], [place]. [phone] Psychotherap y, 45 Min With Patient And Or Family M [facility], [address] [place], [address], [place] tel: [phone] [facility] Adjustment disorder with mixed anxiety and depressed mood Sep-2 2 Fredrick Suzette. [address] [place], [place], [id number], [place]. tel:[phone] Psychotherap y, 60 Min With Patient And Or Family M [facility], [address] [place], [address], [place] tel: [phone] [facility] Adjustment disorder with mixed anxiety and depressed mood Sep-1 2 Fredrick Suzette. [address] [place], [place], [id number], [place]. tel:[phone] Psychotherap y, 60 Min With Patient And Or Family M [facility], [address] [place], [address], [place] tel: [phone] [facility] Adjustment disorder with mixed anxiety and depressed mood Sep-0 2 Fredrick Suzette. [address] [place], [place], [id number], [place]. [phone] [facility], [address] [place], [address], [place] tel:[phone] [facility] Blepharitis of upper eyelids of both eyes, unspecified typeSevere myopia, rightMyopia, leftAstigmati sm of both eyes, unspecified typePresbyopi a Sep-0 2 Jose E Silva. [address] [place], [place], [id number], [place]. tel:[phone] Psychotherap y, 60 Min With Patient And Or Family M [facility], [address] [place], [address], [place] tel:[phone] [facility] Adjustment disorder with mixed anxiety and depressed mood Sep-0 2 Fredrick Suzette. [address], [place], [id number], [place]. tel:[phone] Psychotherap y, 60 Min With Patient And Or Family M [facility], [address] [place], [address], [place] tel: [phone] [facility] depression (chief complaint) Adjustment disorder with mixed anxiety and depressed mood 2 Fredrick Suzette. [address] [place], [place], [id number], [place]. tel:[phone] [facility], [address] [place], [address], [place] tel:[phone] [facility] No Information 2 Management Case. [address] [place], [place], [id number], [place]. tel:[phone] [facility], [address] [place], [address], [place] tel:[phone] [facility] No Information 2 Management Case. [address] [place], [place], [id number], [place]. tel:[phone] [facility], [address] [place], [address], [place] tel:[phone] [facility] No Information 2 Management Case. [address] [place], [place], [id number], [place]. tel:[phone] Psychotherap y, 30 Min With Patient And Or Family M [facility], [address] [place], [address], [place] tel: [phone] [facility] Adjustment disorder with mixed anxiety and depressed mood 2 [facility]. [address], [place], [id number], [place]. tel:[phone] LIMITED EXAM,ESTAB PAT. [facility], [address] [place], [address], [place] tel:[phone] [facility] recurrent vertigo's (chief complaint)Vag inal itching (chief complaint)HCM (chief complaint) Encounter for screening mammogram for cancer of breastHypothy roidism, unspecifiedPr ediabetesAdju stment disorder with mixed anxiety and depressed moodVaginal irritation 2 Nathan Mandie. [address] [place], [id number], [place]. tel:[phone] Referring Provider: Mandie Evans, [address] [place], [address] . tel:[phone] Psychotherap y, 30 Min With Patient And Or Family [facility], [address] [place], [address], [place] tel:[phone] [facility] Adjustment disorder with mixed anxiety and depressed mood 2 Fredrick Bradford. [address] [place], [place], [id number], [place]. tel:[phone] INTERMED EXAM,[facility], [address] [place], [address], [place] tel: [phone] [facility] Thyroid problems (chief complaint)Ear Pain (chief complaint)HCM (chief complaint) Immunization not carried out because of patient refusalEncntr screen for dis of the bld/bld-form org/immun mechnsmHypoth yroidism, unspecifiedEa r pain, bilateralBrea st cancer screening by mammogramAmbl yopia of left eyeImpacted cerumen, unspecified ear 2 Lon Parker. [address] [place], [place], [id number], [place]. tel:[phone] INTERMED EXAM,[facility], [address] [place], [address], [place] tel:[phone] [facility] hypothyroidis m (chief complaint)med ication (chief complaint)Pre ventive exam (chief complaint)HCM (chief complaint)col on cancer screening (chief complaint) Encounter for screening for malignant neoplasm of colonGastroes ophageal reflux disease, unspecified whether esophagitis presentHypoth yroidism, unspecifiedMe casimiro impairmentAbn ormal glucoseH/O: varicose veinsStressEn counter for immunizationE ncounter for screening mammogram for cancer of breast 2 Loren Bhatti. [address], [place], [id number], [place]. tel:[phone] [facility], [address] [place], [address], [place] tel:[phone] [facility] Contact w and exposure to oth viral communicable diseases 2 Jono Montez. [address], [place], [place], [id number], [place]. tel:[phone] LIMITED EXAM,ESTAB PAT. [facility], [address] [place], [address], [place] tel:[phone] [facility] Dry eyes (chief complaint) Viral conjunctiviti sSore throat 2 Resident Internal Med. . INTERMED EXAM,ESTAB PAT [facility], [address] [place], [address], [place] tel: [phone] [facility] colon cancer screening (chief complaint)HCM (chief complaint)Rig ht upper quadrant (chief complaint)Dys uria (chief complaint) Body mass index (BMI) 29.0-29.9, adultEncounte r for screening for cancer of colonRoutine health maintenanceOt her abnormal findings in urineRight upper quadrant abdominal pain Sep-0 1 Resident Internal Med. . [facility], [address] [place], [address], [place] tel: [phone] [facility] No Information 1 [facility]. [address] [place], [address], [place]. tel:[phone] LIMITED EXAM,ESTAB PAT. [facility], [address] [place], [address], [place] tel:[phone] [facility] cough (chief complaint) Gastroesophag eal reflux disease, unspecified whether esophagitis presentCough 1 Resident Internal Med. . BRIEF EXAM, ESTAB PAT. [facility], [address] [place], [address], [place] tel:[phone] [facility] Cough (chief complaint) Cough 1 Sidra Hahn. [address] [place] [address], [place], [id number], [place]. tel:[phone] INTERMED EXAM,ESTAB [facility], [address] [place], [address], [place] tel: [phone] [facility] Cough (chief complaint) CoughHypothyr oidism, unspecified 1 Resident MED/PED. . LIMITED EXAM,ESTAB [facility]. [facility], [address] [place], [address], [place] tel: [phone] [facility] Cough 1 Resident MED/PED. . [facility], [address] [place], [address], [place] tel: [phone] [facility] Counseling, unspecified 0 Health Education. . LIMITED EXAM,ESTAB [facility]. [facility], [address] [place], [address], [place] tel: [phone] [facility] hypertension (chief complaint)Thy roid problems (chief complaint)hyp erlipidemia (chief complaint)col on cancer screening (chief complaint)HCM (chief complaint)All ergies (chief complaint) Encounter for screening for cancer of colonImmuniza tion not carried out because of patient refusalHypert ensionPrediab etesHypothyro idism, unspecifiedHy perlipidemia, unspecifiedNo dule of skin of head 3 0 Shannan Dougherty. [address] [place] [address], [id number], [place]. tel:[phone] [facility], [address] [place], [address], [place] tel:[phone] [facility] No Information 0 Shannan Dougherty. [address], [place], [id number], [place]. tel:[phone] MINIMAL EXAM,ESTAB PAT. 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 . INTERMED EXAM,ESTAB PAT [facility], [address] [place] [address], [address], [place] tel: [phone] [facility] hypertension (chief complaint)Uri nary symptoms (chief complaint) HypertensionH ypothyroidism , unspecifiedHe althcare maintenancePr ediabetesHype rlipidemia, unspecifiedDy suriaOther specified counseling 0 Stephen Forbes. [address], [place], [id number], [place]. [phone] LIMITED EXAM,ESTAB PAT. [facility], [address] [place], [address], [place] tel: [phone] [facility] hypertension (chief complaint)Thy roid (chief complaint)lef t axillary pain (chief complaint) Breast pain, leftHypothyro idism, unspecifiedHy pertension 9 Shannan Dougherty. [address] [place], [id number], [place]. tel:[phone] [facility], [address] [place] [address], [address], [place] tel: [phone] [facility] No Information 9 Adelia Bhatti. [address], [place], [place], [id number], [place]. tel:[phone] [facility], [address] [place] [address], [address], [place] tel: [phone] [facility] Hypothyroidis m, unspecified 0 9 Adelia Bhatti. [address] [place], [place], [id number], [place]. tel:[phone] [facility], [address] [place] [address], [address], [place] tel:[phone] [facility] Dental Encounter for dental exam and cleaning w abnormal findings 9 Annalise Gay. [address] [place], [place], [id number], [place]. tel:[phone] [facility], [address] [place], [address], [place] tel: [phone] [facility] Hypothyroidis m, unspecified 0 9 Shannan Dougherty. [address] [place], [place], [id number], [place]. tel:[phone] INTERMED EXAM,[facility], [address] [place] [address], [address], [place] tel: [phone] [facility] hypertension (chief complaint)Thy roid problems (chief complaint)Mus culoskeletal pain (chief complaint) Encounter for screening for cancer of colonHypothyr oidism, unspecifiedPr ediabetesHype rtensionSciat ica of right side 9 Shannan Dougherty. [address] [place], [place], [id number], [place]. tel:[phone] [facility], [address] [place] [address], [address], [place] tel: [phone] [facility] No Information 9 Shannan Dougherty. [address] [place], [place], [id number], [place]. tel:[phone] [facility], [address] [place] [address], [address], [place] tel:[phone] [facility] Hypothyroidis m, unspecified 0 2 9 Sebas Cuevas. [address] [place], [place], [id number], [place]. tel:[phone] [facility], [address] [place], [address], [place] tel: [phone] [facility] Hypothyroidis m, unspecified Shannan Jordan [address] [place], [place], [id number], [place]. tel:[phone] LIMITED EXAM,ESTAB PAT. [facility], [address] [place], [address], [place] tel: [phone] [facility] hypertension (chief complaint)hyp erlipidemia (chief complaint)col on cancer screening (chief complaint) Encounter for screening for cancer of colonHyperten sionHypothyro idism, unspecifiedPr ediabetesHist ory of uterine fibroidAt risk for dental problems Shannan Jordan [address] [place], [place], [id number], [place]. tel:[phone] LIMITED EXAM,ESTAB PAT. [facility], [address] [place], [address], [place] tel: [phone] [facility] Follow up on lab test(s) (chief complaint)Col on Cancer Screening (chief complaint) Body mass index (BMI) 27.0-27.9, adultEncounte r for screening for cancer of colonHypothyr oidism, unspecifiedHy pertensionHis tory of uterine fibroid Shannan Jordan [address] [place] [address], [id number], [place]. tel:[phone] [facility], [address] [place], [address], [place] tel: [phone] [facility] No Information [facility]. [address] [place], [address], [place]. tel:[phone] LIMITED EXAM,ESTAB PAT. 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 [address], [place], [id number], [place]. tel:[phone] INTERMED EXAM,ESTAB [facility], [address] [place], [address], [place] tel: [phone] [facility] back pain (chief complaint)see standing orders (chief complaint) HypertensionH ypothyroidism , unspecifiedHy perlipidemia, unspecifiedCe rvical massOther abnormal findings in urineEncounte r for screening for cancer of colonAcute right-sided thoracic back pain 8 Stephen Forbes. [address], [place], [id number], [place]. tel:[phone] LIMITED EXAM,ESTAB PAT. [facility], [address] [place], [address], [place] tel: [phone] [facility] Sore throat (chief complaint) Acute pharyngitis, unspecifiedHy pertensionHyp othyroidism, unspecifiedHy perlipidemia, unspecified 8 Resident Internal Med. . LIMITED EXAM,ESTAB [facility]. [facility], [address] [place], [address], [place] tel: [phone] [facility] Follow up on lab test(s) (chief complaint) Cervical mass 8 Adelia Bhatti. [address], [place], [place], [id number], [place]. tel:[phone] LIMITED EXAM,ESTAB PAT. [facility], [address] [place], [address], [place] tel: [phone] [facility] preventive exam (chief complaint)Fol low up on lab test(s) (chief complaint) Post-menopaus al bleeding 7 Adelia Bhatti. [address] [place], [place], [id number], [place]. tel:[phone] LIMITED EXAM,ESTAB PAT. [facility], [address] [place], [address], [place] tel:[phone] [facility] hematuria (chief complaint)HCM (chief complaint) Post-menopaus al bleedingOther abnormal findings in urineAllergic rhinitis, unspecified allergic rhinitis trigger, unspecified rhinitis seasonalityHy pertensionHyp othyroidism, unspecified 7 Brittatwyla Mandie. [address], [place], [id number], [place]. tel:[phone] LIMITED EXAM,ESTAB PAT. [facility], [address] [place], [address], [place] tel:[phone] [facility] Thyroid problems (chief complaint)hyp ertension (chief complaint)hyp erlipidemia (chief complaint)Med refills (chief complaint) HypertensionH ypothyroidism , unspecifiedHy perlipidemia, unspecifiedAl lergic rhinitis, unspecified allergic rhinitis trigger, unspecified rhinitis seasonalityPr ediabetes 7 Shannan Dougherty. [address] [place], [place], [id number], [place]. tel:[phone] LIMITED EXAM,ESTAB PAT. [facility], [address] [place], [address], [place] tel:[phone] [facility] Cough (chief complaint) Viral upper respiratory tract infection 7 Sidra Hahn. [address] [place] [address], [id number], [place]. tel:[phone] LIMITED EXAM,ESTAB PAT. [facility], [address] [place], [address], [place] tel:[phone] [facility] Burning on urination (chief complaint) DysuriaHyperl ipidemia, unspecifiedHy pothyroidism, unspecifiedHy pertension 0 7 Stephen Forbes. [address] [place], [place], [id number], [place]. tel:[phone] LIMITED EXAM,ESTAB PAT. [facility], [address] [place], [address], tel: [phone] [facility] hypertension (chief complaint)hyp erlipidemia (chief complaint)hyp othyroidism (chief complaint)All ergies (chief complaint)Diz ziness (chief complaint)dep ressed mood (chief complaint) Healthcare maintenanceEs sential (primary) hypertensionH yperlipidemia , unspecifiedAl lergic rhinitis, unspecified allergic rhinitis trigger, unspecified rhinitis seasonalityHy pothyroidism, unspecifiedAd justment disorder with depressed mood 7 Resident Internal Med. . LIMITED EXAM,ESTAB PAT. [facility], [address] [place], [address], tel: [phone] [facility] F/U TSH (chief complaint) Essential (primary) hypertensionH ypothyroidism , unspecifiedHe althcare maintenance 7 Resident Internal Med. . LIMITED EXAM,ESTAB PAT. [facility], [address] [place], [address], tel: [phone] [facility] depression (chief complaint)Thy roid problems (chief complaint)All ergies (chief complaint) Hypothyroidis m, unspecifiedAl lergic rhinitisPredi abetesHyperli pidemia, unspecifiedDe ntal cariesEssenti al (primary) hypertension 7 Resident Internal Med. . LIMITED EXAM,ESTAB PAT. [facility], [address] [place], [address], tel: [phone] [facility] Cough (chief complaint)Dep ression (chief complaint) Essential (primary) hypertensionA llergic rhinitis, unspecified allergic rhinitis trigger, unspecified rhinitis seasonalityPr ediabetesBere avementHypoth yroidism, unspecifiedHe althcare maintenance 7 Resident Internal Med. . [facility], [address] [place] [address], [address], tel: [phone] [facility] No Information 7 [facility]. [address] [place], [address], [place]. [phone] INTERMED EXAM,ESTAB PAT [facility], [address] [place], [address], [place] tel:[phone] [facility] Cough (chief complaint) Allergic rhinitisEssen tial (primary) hypertensionH ypothyroidism , unspecifiedIm paired fasting glucoseEncoun ter for screening for cancer of colonOverweig htHyperlipide stuart, unspecifiedVi ral URIOther viral agents as the cause of diseases classified elsewhereHeal thcare maintenance 7 Resident Internal Med. . [facility], [address] [place], [address], [place] tel:[phone] [facility] No Information 7 [facility]. [address] [place], [address], [place]. [phone] [facility], [address] [place], [address], [place] tel:[phone] [facility] No Information 6 [facility]. [address] [place], [address], [place]. [phone] LIMITED EXAM,ESTAB PAT. [facility], [address] [place], [address], [place] tel:[phone] [facility] hypertension (chief complaint)RX (chief complaint)TB Assesment (chief complaint) Hypothyroidis m, unspecifiedEs sential (primary) hypertensionA llergic rhinitis 6 Shannan Dougherty. [address] [place] [address], [id number], [place]. tel:[phone] LIMITED EXAM,ESTAB PAT. [facility], [address] [place], [address], [place] tel:[phone] [facility] Musculoskelet al pain (chief complaint)hyp ertension (chief complaint)Med refills (chief complaint) Impingement syndrome of left shoulderHypot hyroidism, unspecifiedIm paired fasting glucose 6 Shannan Dougherty. [address] [place], [place], [id number], [place]. tel:[phone] LIMITED EXAM,ESTAB PAT. 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 tel:[phone] [facility], [address] [place] [address], [address], [place] [phone] [facility] No Information 5 Shannan Jordan [address] [place], [place], [id number], [place]. tel:[phone] INTERMED EXAM,ESTAB PAT [facility], [address] [place] [address], [address], [place] tel: [phone] [facility] hypertension (chief complaint)Thy roid problems (chief complaint)All ergies (chief complaint)Wan ts flu shot (chief complaint) Encntr screen for dis of the bld/bld-form org/immun mechnsmEssent ial (primary) hypertensionH ypothyroidism , unspecifiedEn counter for screening mammogram for cancer of breastEncount er for screening for cancer of colonImpaired fasting glucose 5 Shannan Jordan [address] [place], [place], [id number], [place]. [phone] [facility], [address] [place] [address], [address], [place] tel: [phone] [facility] No Information 5 Shannan Dougherty. [address], [id number], [place]. tel:[phone] [facility], [address] [place], [address], [place] tel: [phone] [facility] No Information 5 [facility]. [address] [place], [address], [place]. tel:[phone] LIMITED EXAM,ESTAB PAT. [facility], [address] [place], [address], [place] tel:[phone] [facility] Hypothyroidis m (chief complaint)hyp ertension (chief complaint)All ergies (chief complaint) No Information 5 Resident Internal Med. . [facility], [address] [place], [address], [place] tel:[phone] [facility] Hypothyroidis m 5 Lamp [address]y. [address], [id number], [place]. tel:[phone] LIMITED EXAM,ESTAB PAT. [facility], [address] [place], [address], [place] tel:[phone] [facility] hypertension (chief complaint)Hyp othyroidism (chief complaint) Hypertension, BenignHypothy roidismOther and unspecified hyperlipidemi aIMPAIRED FASTING GLUCOSE 4 Shannan Dougherty. [address], [id number], [place]. tel:[phone] [facility], [address] [place], [address], [place] tel:[phone] [facility] hypertension (chief complaint)Thy roid problems (chief complaint) No Information 3 0 4 Resident Internal Med. . [facility], [address] [place], [address], [place] tel:[phone] [facility] No Information 4 No Information LIMITED EXAM,ESTAB PAT. [facility], [address] [place], [address], [place] tel:[phone] [facility] hypertension (chief complaint)hyp othyroidism (chief complaint)war ts (chief complaint) Viral warts, unspecifiedHy pothyroidismH ypertension, Benign 4 Shannan Jordan [address] [place] [address], [id number], [place]. tel:[phone] LIMITED EXAM,ESTAB PAT. [facility], [address] [place], [address], [place] tel:[phone] [facility] warts (chief complaint) Viral warts, unspecifiedHy pertension, Benign 4 Shannan Jordan [address] [place], [place], [id number], [place]. tel:[phone] LIMITED EXAM,ESTAB PAT. [facility], [address] [place], [address], [place] tel:[phone] [facility] thyroid problems (chief complaint)med refills (chief complaint)fol low up on lab test(s) (chief complaint) Hypertension, BenignHypothy roidismViral warts, unspecified 4 Shannan Jordan [address] [place], [place], [id number], [place]. tel:[phone] LIMITED EXAM,ESTAB PAT. [facility], [address] [place], [address], [place] tel:[phone] [facility] thyroid problems (chief complaint)all ergies (chief complaint) Hypothyroidis m 4 Shannan Jordan [address] [place] [address], [id number], [place]. tel:[phone] LIMITED EXAM,ESTAB PAT. [facility], [address] [place], [address], [place] tel:[phone] [facility] thyroid problems (chief complaint) OverweightHyp othyroidismIM PAIRED FASTING GLUCOSEHypert ension, BenignOther and unspecified hyperlipidemi a 3 Shannan Dougherty. [address] [place], [place], [id number], [place]. tel:[phone] [facility], [address] [place], [address], [place] tel: [phone] [facility] No Information 3 [facility]. [address] [place], [address], [place]. tel:[phone] [facility], [address] [place], [address], [place] tel: [phone] [facility] No Information 2 [facility]. [address] [place], [address], [place]. tel:[phone] INTERMED EXAM,ESTAB PAT [facility], [address] [place], [address], [place] tel: [phone] [facility] No Information 2 No Information LIMITED EXAM,ESTAB PAT. [facility], [address] [place], [address], [place] tel: [phone] [facility] No Information 1 Resident Internal Med. . LIMITED EXAM,ESTAB PAT. [facility], [address] [place], [address], [place] tel: [phone] [facility] No Information 1 Resident Internal Med. . LIMITED EXAM,ESTAB PAT. [facility], [address] [place], [address], [place] tel:[phone] [facility] No Information 1 Resident Family Medicine. . LIMITED EXAM,ESTAB PAT. [facility], [address] [place], [address], [place] tel:[phone] [facility] No Information 1 Resident Internal Med. . [facility], [address], [place], [address], [place] tel:[phone] TRANSCRIBED No Information 0 No Information Family [...] administered Note: Imported from [facility]. From Provider: [facility]-. Injected by: AUSTEN BOB MA. ; Source: Source Unspecified Influenza administered Note: Imported from [facility]. From Provider: [facility]-. Injected by: DOMINGA GOMEZ MA. ; Source: Source Unspecified Influenza administered Note: Imported from [facility]. From Provider: [facility]-. Injected by: ADELAIDA CHIANG RN. ; Source: Source Unspecified Tdap administered Note: Imported from [facility]. From Provider: [facility]. Injected by: Sulema Stearns MA. ; Source: Source Unspecified Influenza administered Note: Imported from [facility]. From Provider: [facility]. Injected by: Nicol Gomez MA. ; Source: Source Unspecified Novel [id number], all formulations administered Note: Imported from [facility]. From Provider: [facility]. Injected by: Nicol Gomez MA. ; Source: Source Unspecified Novel [id number], all formulations administered Note: Imported from [facility]. From Provider: [facility]. Injected by: Nicol Gomez MA. ; Source: Source Unspecified Payers Payer name Insurance type Covered republican ID Authoriza tion(s) Medicare PPS MB [id number] BS Promise Medicare Secondary CI [id number] Medicare PPS MB [id number] BS Promise Medicare Secondary CI [id number] Medicare PPS MB [id number] BS Promise Medicare Secondary CI [id number] HCLA BS Promise Medi-Arleen MC [id number] MediCal Managed Care Interim Rate MC [id number] HCLA BS Promise Medi-Arleen MC [id number] HCLA LA Care Medi-Alreen CI [id number] MediCal Managed Care Interim Rate MC [id number] Social History Type Description Quantity Date Captured Comments Alcohol Use Details Unknown Caffeine Use Details Unknown Tobacco Use Status Current non-smoker Smoking Status Never smoker Non-Smoking Tobacco Use Details : No Details Available : No Details Available Sex Female Sexual Orientation Straight or heterosexual Gender Identity Female Vital Signs Date / Time: Height Weight BMI Pulse Rate Blood Pressure Temperature Respiratory Rate Body Surface Area Head Circumference Head Circ. Percentile Wt./Neeraj. Percentile BMI percentile Pulse Ox Inhaled Ox 2:32 PM 63.50 in 67.495 kg (148.80 lbs) 25.9 5 kg/m eter (2) 65 /min 140/85 mm[Hg] 97.10 F 1.74 meter(2) 95 % Chief Complaint And Reason For Visit From encounter dated '07/30/2024 14:45'. HPI (chief complaint). Description: #DysuriaBurns a little for 2 weekssome suprapubic tendernessno increased urinary frequency or urgencyno blood, no dischargeno fever or chillsprior hx of UTIs yearsago, was told to drink cranberry juice #pre-op for dental extractionsno history of general anesthesi awalks and runs with dogs daily1-2 flights of stairs with no chest pain or SOB#HTN BP log with SBP primarily in the 120s, intermittently in 130sCoreg 6.5 BID and tolerating well #PreDM#HLD Last A1c at 5.8 -> 5.9. Last lipid panel much improved with normal Tchol, TG, and LDL at 94 On atorva 40 qhs #Hypothyroidism Last TSH check 09/2022 at goal. On levothyroxine 75 mcg qd Requesting repeatTSH #HCM Last pap: 2015 with normal results. Was 62 at last check and no longer doing them as she was near 64 with no abnormal Hx paps. Last mammogram: 2021 with BiRADS-1. Repeat ordered Last FIT: 05/2023 with negative results. Due with repeat orderedLast DEXA/bone scan: Due Lung cancer screen: N.A. Vaccines: Influenza at recent visit. Reason For Referral Reason For Referral No Information Plan Of Treatment Date Type Action Status Goal Lipid panel. Due on 029 due Goal Colonoscopy. Due on due Goal Dental exam. Due on due Goal TB Risk Assessment. Due on A due Goal PPD (TST). Due on due Goal Alcohol Screening. Due on Oc due Goal Depression Scree jg. Due on due Goal Domestic Violenc e Screen. Due on due Goal CT-Colonography. Due on due Goal Unhealthy drug u se screening. Due on due Goal Hepatitis C screening due Goal IGRA. Due on due Goal Zoster vaccine (1st) due Goal Zoster vaccine ( 2nd). Due on due Goal Retinal Screening. Due on due Goal Tdap due Goal FIT-DNA. Due on due Goal Lifestyle education regardin g diet completed Goal Dental exam. Due on 025 due [...] u se screening. Due on due Goal Depression Scree jg. Due on due Goal Zoster vaccine ( 2nd). Due on due Goal Hepatitis C screening due Goal PPD (TST). Due on due Goal Dental exam. Due on due Goal Domestic Violenc e Screen. Due on due Goal Zoster vaccine (1st) due Goal Lipid panel. Due on due Goal Retinal Screening. Due on due Goal TB Risk [...] Screen. Due on due Goal Zoster vaccine () due Goal Colonoscopy. Due on due Goal FIT-DNA. Due on due Goal Dental exam. Due on due Goal Depression Scree jg. Due on due Goal Lifestyle education regardin g diet completed Goal PPD (TST). Due on due Goal Zoster vaccine () due Goal Colonoscopy. Due on due Goal [...] Goal Mammogram. Due on 4 due Goal Td vaccine. Due on 23 due Goal Lipid panel. Due on due [...] Goal Mammogram. Due on 4 due Goal Dental exam. Due on due Goal FIT-DNA. Due on due Goal Depression Scree jg. Due on due Goal Zoster vaccine ( 2nd). Due on due Goal TB Risk Assessment. Due on A due Goal Lipid panel. Due on 028 due Goal Colonoscopy. Due on due Goal [...] Dental exam. Due on [address]-Colonography. Due on due Goal [...] Lipid panel. Due on 028 due Goal PPD (TST). Due on 3 [...] Lipid panel. Due on 027 due Goal DEXA Scan. Due on 2 [...] Goal TB Risk Assessment. Due on A ug-06-2022 due Goal PPD (TST). Due on due [...] Dental exam. Due on 022 due Goal FIT. Due on due Goal [...] on Oc due Goal Tdap due Goal Td vaccine. [...] Dental exam. Due on 022 due Goal DEXA Scan. Due on due [...] vaccine. Due on due Goal Zoster vaccine () due Goal Zoster vaccine () due Goal PPD (TST). Due on due [...] Goal DEXA Scan. Due on due Goal FIT. Due on [...] 011 due Goal Td vaccine. Due on 22 [...] (1st) due Goal Lipid panel. Due on 025 [...] Screening. Due on due Goal Zoster vaccine () due Goal IGRA. Due on due Goal [...] Td vaccine. Due on 21 due Goal DEXA Scan. Due on due [...] on 2 due Goal Zoster vaccine ( ). Due [...] Goal Colonoscopy. Due on 011 due Goal Tdap due Goal Domestic Violenc [...] Goal Pap/HPV testing. Due on due Goal Td vaccine. Due on 20 due Goal Colonoscopy. Due on 011 due [...] vaccine ( ). Due on due Goal FIT-DNA. Due on due Goal Lipid panel. Due on 025 due Goal Dental exam. Due on 020 due Goal PPD (TST). Due on 0 [...] PPD (TST). Due on 0 due Goal IGRA. Due [...] PPD (TST). Due on 9 due Goal TB Risk Assessment. Due on [...] Lipid panel. Due on 024 due Goal PPD (TST). Due on 9 due Goal Colonoscopy. Due on due Goal Alcohol Screening. Due on No due Goal TB Risk Assessment. Due on A due Goal Zoster vaccine ( 1st). Due on due Goal Pap/HPV testing. Due on due Goal Dental exam. Due on due Goal Domestic Violenc e Screen. Due on due Goal Lipid panel. Due on 016 due Goal Depression Scree [...] Goal Mammogram. Due on 9 due Goal TB Risk Assessment. Due on [...] PPD (TST). Due on 9 due Goal Depression Scree [...] PPD (TST). Due on 8 due Goal IGRA. Due on due Goal Colonoscopy. Due on 011 due Goal Domestic Violenc e Screen. Due on due Goal Pap/HPV testing. Due on due Goal Mammogram. Due on 9 due Goal PPD (TST). Due on 8 due Goal Dental exam. Due on due Goal Alcohol Screening. Due on Ap due Goal TB Risk Assessment. Due on O due Goal Depression Scree jg. Due on due Goal Depression Scree jg. Due on due Goal IGRA. Due on due Goal Mammogram. Due on 9 due Goal Alcohol Screening. Due on Ap due Goal PPD (TST). Due on 8 due Goal Domestic Violenc e Screen. Due on due Goal Colonoscopy. Due on due Goal Pap/HPV testing. Due on due Goal TB Risk Assessment. Due on O due Goal Dental exam. Due on 018 due Goal Alcohol Screening. Due on Ap due Goal TB Risk Assessment. Due on O due Goal Colonoscopy. Due on due Goal [...] Alcohol Screening. Due on Ap due Goal PPD (TST). Due on 7 [...] on due Goal Colonoscopy. Due on due Referral Ordered: SCR MAMMO [...] treat ordered Referral Ordered: referred to outside Entry Writer needs new glasses (related to Low vision, both eyes) ordered Referral Ordered: referred to outside dental referrals poor dentition (related to Dental caries) ordered Referral Ordered: referred to [facility] Entry Writer (related to Essential (primary) hypertension) ordered Referral Ordered: referred to [facility] check up (related to Essential (primary) hypertension) ordered Appointment Celia Hay BOOKED Appointment [facility] BOOKED Future Order: Lab Order INSURE O NE IFOBT ([id number]), Appointment on: , Sent on: Sent Future Order: Lab Order InSure O NE IF[facility]T ([id number]), Sent on: Sent History Of Present Illness Encounter Date Complaint History Of Prese nt Illness HPI #DysuriaBurns a little for 2 weekssome suprapubic tendernessno increased urinary frequency or urgencyno blood, no dischargeno fever or chillsprior hx of UTIs years ago, was told to drink cranberry juice #pre-op for dental extractionsno history of general anesthesiawalks and runs with dogs daily1-2 flights of stairs with no chest pain or SOB#HTN BP log with SBP primarily in the 120s, intermittently in 130sCoreg 6.5 BID and tolerating well #PreDM#HLD Last A1c at 5.8 -> 5.9. Last lipid panel much improved with normal Tchol, TG, and LDL at 94 On atorva 40 qhs #Hypothyroidism Last TSH check 09/2022 at goal. On levothyroxine 75 mcg qd Requesting repeat TSH #HCM Last pap: 2015 with normal results. Was 62 at last check and no longer doing them as she was near 64 with no abnormal Hx paps. Last mammogram: 2021 with BiRADS-1. Repeat ordered Last FIT: 05/2023 with negative results. Due with repeat orderedLast DEXA/bone scan: Due Lung cancer screen: N.A. Vaccines: Influenza at recent visit. HPI Celia Garcia is a 67 F [...] GIVEN TO TELEPHONE COMMUNICATION. VISIT CONDUCTED IN [place] WITHOUT USE OF TRAFFIC ROUTING ENGINEER BY PATIENT CONSENT.EST PT WITH COUGH, SORE [...] a dose last night. Denies CP, SOB. hypertension thyroid HCM pt requesting rx refills pt also [...] Last mammogram: 2021 with BiRADS-1 Last FIT: 2022 with normal results Last DEXA/bone scan: Due [...] pain and itchy. Patient reports no discharge. [facility] please sent flu shot to [facility] pharmacy offered pt TDAP, PCV-13 and Shingrix pt declines todayMammo-pt is due please order referral depression This is an initi al visit. Vaginal itching [facility] pt requesting la bs for TSH recurrent vertigo's Thyroid problems Risk factors in clude female and history of hypothyroidism. Additional information: Hypothyroidism medication refill. [facility] 1. Mammogram ref erral Ear Pain (comments) [...] far away. Saw an eye doctor in [place] and wants to go to another appt [...] refill of her thyroid medication. Dry eyes [facility] Pt would like to discuss Tdap Vaccine, [...] weeks ago when she was returnng from [place], negative. Cough hypertension hyperlipidemia Risk factors inc lude age over 50. colon cancer screening Prior scr eening: fecal occult blood testing. Denies risk factors. There are no associated symptoms. Additional information: No family history of colon cancer. HCM Med refillsDue f or Tdap, shingrix and [id number] vaccines. Pt declines all today. Allergies Symptoms are con stant, moderate and worsening. Additional information: Bothering her latelyhas not had spray as had to purchasehas had allergies off and on for yrs. Thyroid problems Risk factors in clude female [...] because was rushing to get to clinic. left axillary pain The symptoms began 1 month ago. The location is below l armpit. pt states pain has been ongoing for wks states it fluctuatesdoes alot of housework using both arms hypertension The severity has been described as being moderate. It is currently stable. There are no associated symptoms. Thyroid on med Thyroid problems Risk factors in clude female [...] colon cancer or blood in stoolIFOBT ordered magazine grinder loader no spotting in p ast sev [place] magazine grinder loader , then lost medicalEMB neg here hypertension [...] an 15 days ago. Was seen at [facility] per patient on 03/08/2017-03/09/2017 . patient does not recall actual date. Went in Had noticed drops of bloodin her underwear. Sedan that it was in her urine. States [...] TB Asses ment, patient was born in [facility], patient states she did receive BCG vaccine but does not recall what year, patient has not travelled oust side the [place] RX Patient would ceci cherry to discuss RX and refills hypertension The [...] Information Instructions Date Instruction Additional Infor mation Giving encouragement to exercise Related to Body mass index (BMI) 25.0-25.9, adult Lifestyle education regarding di et Related to Body mass index (BMI) 25.0-25.9, adult Last labs much improvedCont stat in Related to Hyperlipidemia, unspecified Seeing dentistry Related to [place] al decay Cont lifestyle modif ications On atorva 40 qhs Related to Prediabetes Last pap: 2016 with normal results. Was 62 at last check and no longer doing them as she was near 64 with no abnormal Hx paps. Last mammogram: 2021 with BiRADS-1. Repeat ordered Last FIT: 05/2023 with negative results. Due and will order at next in-person visit Last DEXA/bone scan: Due Lung cancer screen: N.A. Vaccines: Influenza at recent visit. Related to Healthcare maintenance - Referral to vascul ar surgery placed at prior visit- Cont compression socks Related to Symptomatic varicose veins of both lower extremities Cont Coreg 6.25 BID. Increase as needed [...] Coreg 6.25 BID Related to H ypertension Seeing dentistry Related to [place] al decay Last pap: 2015 with normal [...] On atorva 40 qhs Related to Prediabetes - Referral to vascul ar surgery placed at prior visit and pending scheduling - Cont compression socks Related to Symptomatic varicose veins of both lower extremities Last labs much improvedCont stat in Related to Hyperlipidemia, unspecified Repeated labs today Cont levothyroxine Related to Hypothyroidism, unspecified Check on referral an d let pt know next steps Related to Symptomatic varicose veins of both lower extremities Also check on DEXA, mammo referr als Related to Healthcare maintenance Giving encouragement to exercise Related to Body mass index (BMI) 28.0-28.9, adult Lifestyle education regarding di et Related to Body mass index (BMI) 28.0-28.9, adult Dentistry referral placed Relate d to Dental decay Cont lifestyle modif ications On atorva 40 qhs Related to Prediabetes Refilled statin Related to Hyper lipidemia, unspecified [...] daily Related to Hypothyroidism, unspecified - Refill atenalol 25 mg PO [...] (primary) hypertension Assessments Type Assessment Date assessment Body mass index [BMI] 25.0-25.9, adult assessment Dental decay assessment Hyperlipidemia, unspecified assessment Hypertension assessment Hypothyroidism, unspecified assessment Healthcare maintenance assessment Dysuria assessment Other abnormal findings in urine impression Dysuria present for 2 weeks. Urine dipstick completed with trace LE, likely represents acute cystitis. Reassuringly no signs of fever, chills, CVA tenderness c/f pyelonephritis. No prior urine micro data to suggest antimicrobial resistance. impression Upcoming dental extr actions for dental decay. Dentist requesting letter for medical clearance. Overall low risk procedure, <1% risk of MACE per [place]. >4 METS, physically active. Overall medically optimized for upcoming procedure. No medication changes needed perioperatively. impression Last LDL 94. impression Blood pressure eleva jessie in clinic today to SBP 140, but patient with BP log from home with SBP in 120s, occasionally 130. Favor not making medication adjustments at this time. HR 65, unlikely to have additional room to increase coreg. impression Last TSH 2022 wnl. Mental Status Date Cognitive Assessment Orientation - [place] ed to time, place, person, situation. Patient Care Teams Name Effective Dates (sta rt - stop) Status Members RONAK Stuart - active Lily Hampton.Internal Med Resident.(Lead)
--- OUTSIDE RECORDS SUMMARY | 2024-08-24 13:46 | XMS_ITS | Clinical Summary ---
Author Organization [facility] [place] [address] Phone Care Team Providers Care Training Specialist Name Role Phone Curt Falk MD Primary Care Provider + [phone] Allergies Active Allergy Reactions Criticality Noted Date Comments Penicillins Rash High 07/24/2024 Medications acetaminophen (TYLENOL) 325 mg tablet [...] 3 (three) times a day if needed. Active buprenorphine HCL [address] 150 mcg into mouth between cheek and gum 2 (two) times a day. Max Daily Amount: 300 mcg Active clonazePAM (KlonoPIN) 1 mg tablet Take 0.5 mg by mouth 3 (three) times a day. Max Daily Amount: 1.5 mg Active fluticasone furoate-vilant Deny (BREO ELLIPTA) 200-25 mcg/dose inhaler Inhale 1 puff by mouth 1 (one) time each day if needed. Active LORazepam (ATIVAN) 0.5 mg tablet Take 1 tablet (0.5 mg total) by mouth every 8 (eight) hours if needed. Active omeprazole (PriLOSEC) [address] capsule Take 1 capsule (40 mg total) by mouth 1 (one) time each day. Active traZODone (DESYREL) 100 mg tablet Take 1 tablet (100 mg total) by mouth at bedtime. Active zolpidem (AMBIEN) 5 mg tablet Take by mouth at bedtime as needed for sleep. Active ezetimibe (ZETIA) 10 mg tablet Take 1 tablet (10 mg total) by mouth 1 (one) time each day. Active naloxone (NARCAN) 4 mg/actuation nasal spray KIT (Take home med ONLY) Administer 1 spray (4 mg total) into affected nostril(s) See administration instructions. EVERY 3MIN PRN FOR OPOID OD Active loratadine (CLARITIN) 10 mg tablet Take 1 tablet (10 mg total) by mouth 1 (one) time each day. Active ibuprofen (ADVIL,MOTRIN) 600 mg tablet Take 1 tablet (600 mg total) by mouth every 8 (eight) hours if needed for mild pain. Active escitalopram (LEXAPRO) 20 mg tablet Take 1 tablet (20 mg total) by mouth 1 (one) time each day. Active dupilumab (DUPIXENT) 300 mg/2 mL pen Inject under the skin. Active montelukast (SINGULAIR) 10 mg tablet Take 1 tablet (10 mg total) by mouth at bedtime. Active predniSONE (DELTASONE) 10 mg tablet Take 1 tablet (10 mg total) by mouth 1 (one) time each day. 4TABS X 3D,THEN 3 TABS X 3,THEN 2 TABS X 3D THEN 1 TAB X 3 DAYS FOR 12 DAYS Active Encounters Date Type Department Care Team Description 08/15/2024 9:07 AM EDT Anesthesia Event [facility] OR [address] [place] [phone] Dennis Maldonado DO 08/15/2024 9:00 AM EDT - 08/15/2024 10:30 AM EDT Surgery [facility] OR [address] [place] [phone] Quang Hurd MD SACRAL NEUROMODULATOR STAGE 1 [[id number] (CPT??) +1 more] 08/15/2024 6:53 AM EDT - 08/15/2024 10:50 AM EDT Hospital Encounter [facility] Main OR [address] [place] [address] Quang Hurd MD Discharge Disposition: Home or Self Care from Last 3 Months Surgical History Surgery Date Site/Laterality Comments OTHER SURGICAL HISTORY PROCEDURE: HISTORY OTHER; COMMENT: COLONOSCOPY OTHER SURGICAL HISTORY PROCEDURE: HISTORY OTHER; COMMENT: TOOTH EXTRACTION OTHER SURGICAL HISTORY 09/22/2021 PROCEDURE: HISTORY OTHER; COMMENT: TOTAL KNEE REPLACEMENT OTHER SURGICAL HISTORY PROCEDURE: HISTORY OTHER; COMMENT: CYSTOSCOPY HYSTERECTOMY KNEE ARTHROPLASTY Right CYSTOSCOPY APPENDECTOMY CYSTOSCOPY 01/17/2024 - 02/16/2024 WITH BOTOX Medical History Medical History Date Comments Depression DX:Depression Asthma DX:Asthma Foot pain, bilateral DX:Foot heidy n, bilateral GERD (gastroesophageal reflux disease) DX:GERD (gastroesophageal reflux disease) Insomnia DX:Insomnia Arthralgia DX:Arthralgia KAMILA positive DX:KAMILA positive Osteoarthritis DX:Osteoarthriti s; COMMENT: OF RIGHT KNEE Vitamin D deficiency DX:Vitamin D deficiency Urticaria DX:Urticaria Chronic interstitial cystitis DX :Chronic interstitial cystitis Anxiety Hyperlipidemia Hypertension CHF (congestive heart failur e) (CMS/[facility] V24, CMS/[facility] V28) Shortness of breath Chronic kidney disease Family History Medical History Relation Name Comments Hypertension Father Diabetes Mother Hypertension Mother at 85 of h eart related causes Other: CVD Mother Other: valve replacement Mother Relation Name Status Comments Father Mother Social History Tobacco Use Types Packs/Day Years Used Date Smoking Tobacco: Never Smokeless Tobacco: Former Tobacco Cessation:Counseling Given: Not Answered Alcohol Use Standard Drinks/Week Comments Never 0 (1 standard drink = 0.6 oz pur e alcohol) Interpersonal Safety Answer Date Record ed Physical Abuse 08/15/2024 Verbal Abuse 08/15/2024 Comments No Sex and Gender Information Value Date Recorded Sex Assigned at Female 07/30/2024 2:35 PM EDT Legal Sex Female 2:18 AM EST Gender Identity Female 07/30/2024 2:35 PM EDT Sexual Orientation Straight 07/30/2024 2: 35 PM EDT Obstetrics History Last Filed Vital Signs Vital Sign Reading Time Taken Comments Blood Pressure 153/89 08/15/2024 10:42 AM EDT Pulse 79 08/15/2024 10:42 AM EDT Temperature 36.4 ??C (97.5 ??F) 08/15/2024 10:07 AM E DT Respiratory Rate 14 08/15/2024 10:07 AM EDT Oxygen Saturation 97% 08/15/2024 10:42 AM EDT Inhaled Oxygen Concentration - - Weight 93 kg (205 lb) 08/15/2024 7:40 AM EDT Height 149.9 cm (4' 11 ) 08/15/2024 7:40 AM EDT Body Mass Index 41.4 08/15/2024 7:40 AM EDT Plan of Treatment Upcoming Encounters Date Type Department Care Team (Late st Contact Info) Description 08/27/2024 12:00 PM EDT Hospital Encounter [facility] OR [address] [place] [phone] Quang Hurd MD [address] [place] [phone] 08/27/2024 12:00 PM EDT - 08/27/2024 1:30 PM EDT Surgery [facility] OR [address] [place] [phone] Quang Hurd MD [address] [place] [phone] SACRAL NEUROMODULATOR STAGE 2 [43029 (CPT??) +1 more] Scheduled Procedures Name Priority Associated Diagnoses Date/Ti me IMPLANTATION STIMULATOR BLAD RODRI STAGE 2 Overactive [...] Cancer Screening: Colonoscopy 03/21/2022 Depression Screening 03/21/2022 Hepatitis C Screening 03/21/2022 Medicare Annual Wellness Visit 03/21/2022 Osteoporosis Screening (Bone Density Screening) 03/21/2022 Social Influencers of Health Screening 03/21/2022 COVID-19 Vaccine ( - 2023-2 5 season) 2023 Influenza Vaccine (Season Ended) 2024 Falls Risk Assessment 08/15/2025 08/15/2024 DTaP,Tdap,and Td Vaccines (2 - Td or [...] on patient's age to complete this topic Medical Devices Implanted Type Area Neuropsychologist Device Identifier Shelf Expiration Date Model / Serial / Lot Cable Ext Interstim 4.32mm - Sn/A - [id number] Implanted:Qty: 1 on 08/15/2024 by Quang Hurd MD at [facility] Neurostim N/A: Sacrum [employer] 09/12/2025 [id number] / N/A / [id number] Kit Mri Lead Interstim 4.32-28cm - Sn/A - [id number] Implanted:Qty: 1 on 08/15/2024 by Quang Hurd MD at [facility] Neurostim N/A: Sacrum [employer] 10/09/2025 [id number] / N/A / [id number] Procedures Procedure Name Priority Date/Time Associated Diagnosis Comments XR PELVIS 1-2 VIEWS Routine 08/15/2024 9 :42 AM EDT MN ANALYSIS IMPLANTED NEUROSTIM PULSE GENERATOR SYSTEM COMPLEX/PROGRAMING 08/15/2024 9:07 AM EDT Overactive bladder Case Notes C-ARM, [employer] MN PERC IMPLANTATION NSTIM ELECTRODE ARRAY SACRAL NERVE INCL IMG GUID 08/15/2024 9:07 AM EDT Overactive bladder Case Notes C-ARM, [employer] PROCEDURAL ECG Routine 08/15/2024 7:24 AM EDT from Last 3 Months Results * XR Pelvis 1-2 Views (08/15/2024 9:42 AM EDT) Anatomical Region Laterality Modality Body, Pelvis Radio Fluoroscop y 08/15/2024 10:3 2 AM EDT Impressions 08/15/2024 10:35 AM EDT Stimulator wire extending to the right S3 neural foramen. -------- FINAL REPORT -------- Dictated By: Kayley Sexton Dictated Date: 08/15/2024 10:32 ET Assigned Physician: Kayley Sexton Reviewed and Electronically Signed By: Kayley Sexton Signed Date: 08/15/2024 10:35 ET Workstation ID: [id number] Transcribed By: Self Edit Transcribed Date: 08/15/2024 10:32 ET Narrative 08/15/2024 10:35 AM EDT INDICATION: Placement of stimulator device FINDINGS: Fluoroscopic AP and lateral views of the pelvis obtained. Total patient dose (air kerma): 7 mGy Stimulator wire extends along the posterior lumbar region to the right of midline inferiorly through the right S3 neural foramen. Procedure Note Kayley Sexton MD - 08/15/2024 INDICATION: Placement of stimulator device FINDINGS: Fluoroscopic AP and lateral views of the pelvis obtained. Total patient dose (air kerma): 7 mGy Stimulator wire extends along the posterior lumbar region to the right ofmidline inferiorly through the right S3 neural foramen. IMPRESSION: Stimulator wire extending to the right S3 neural foramen. -------- FINAL REPORT -------- Dictated By: Kayley Sexton Dictated Date: 08/15/2024 10:32 ET Assigned Physician: Kayley Sexton Reviewed and Electronically Signed By: Kayley Sexton Signed Date: 08/15/2024 10:35 ET Workstation ID: [id number] Transcribed By: Self Edit Transcribed Date: 08/15/2024 10:32 ET us Quang Hurd MD IMG XR PROCEDURES Fi nal Result * ECG 12 lead - Procedural (No Charge) (08/15/2024 7:24 AM EDT) Ventricular Rate ECG 82 BPM GEMUSE Atrial Rate 82 BPM GEMUSE P-R Interval 124 ms GEMUSE QRS Duration 70 ms GEMUSE Q-T Interval 338 ms GEMUSE QTc 394 ms GEMUSE P Wave Wilson 58 degrees GEMUSE R Wilson 20 degrees GEMUSE T Wilson 42 degrees GEMUSE ECG Interpretation Normal sinus rhythm Nonspecific ST and T wave abnormality Abnormal ECG When compared with ECG of 14-JUL-2023 00:18, QT has shortened Confirmed by Marilyn STEIN JAMES ([id number]) on 08/15/2024 4:44:39 PM GEMUSE 08/15/2024 7:24 AM EDT 08/15/2024 4:44 PM EDT us Dennis Maldonado DO ECG ORDERABLES Final Result GEMUSE from Last [address] [facility] [employer] HOME OPTIONS Member Subscriber Plan / Payer (Ef fective 2024-Present) Name:Celia Marquez Relation to Subscriber:Self Name:Celia Marquez Payer ID:[id number] Group ID:Not on file Type:Not on file Address: [address] [place] [address] Care Teams Training Specialist Relationship Specialty Start Date End Date Curt Falk MD [address] [place] [address] [address] WILLIAM Barrera PCP - General 07/16/21
== END 2024-08-24 14:32 | disposition home or self-care (01) ==
LOC: HO.HID 13:43
PROVIDERS: PCP Internal Medicine; Visit Provider Internal Medicine
DX: F11.90 Opioid use, unspecified, uncomplicated (principal)
CPT/HCPCS: 99213

== ENCOUNTER → 2024-08-24 13:43 | Outpatient (BNVA) | payer OTHER, SELFPAY | PROVIDERS: PCP Internal Medicine; Visit Provider Internal Medicine | DX: F11.20 Opioid dependence, uncomplicated (principal); Z51.81 Encounter for therapeutic drug level monitoring | CPT/HCPCS: 99212 ==

== ENCOUNTER 2024-08-29 12:18 | Outpatient (REF) | payer OTHER, SELFPAY ==
--- OUTSIDE RECORDS SUMMARY | 2024-08-29 12:50 | XMS_ITS | Data Portability ---
Author Organization [facility] Address [address] [place] [address] Care Team Providers Care Hold Worker Name Role Phone HIM CCA OTHER BECKY [...] Orders prednisone 20 mg tablet 2023 024 [facility] #[id number], [address] [facility] [place], [address], 18:26:49 Patient TargetsNo targets recorded. Patient InstructionsNo instructions recorded. Reason for Referral None Reported. Medical Equipment None Reported. Allergies Allergen ID Allergen Name Allergen Category Reaction Reaction Severity Criticality Documentation Date Start Date Code Code System Note Provider Name and Address Organization Details Recorded Time 7328 Product containin g penicilli n (product) medicatio n Not available Not available Not available 02/14/2024 59591 8001 SNOMED Not [facility] 03:44[facility]38 8489 aspirin medicatio n Not available Not available Not available 02/14/2024 1191 RxNorm Not Available [facility] - production 4 03:44:38 Medications [...] SNOMED-CT Code Diagnosis ICD10 Code Diagnosis Note [id number] Efrain Gomez MD Main - [facility] [address] [place] [phone] 05/19/2023 18:01:49 05/20/2023 11:31:35 Exacerbation of intermittent asthma 969081879 J45.21 [id number] Iris Boo MD Main - [facility] [address] [place] [phone] 07/23/2024 18:15:24 07/23/2024 19:53:44 Pruritic rash [id number] L28.2 69 year old female being evaluated for a year of intermitte nt pruritic rash. Patient reports having a full body rash that comes and goes, has been seen by mutliple doctors including interactive digital media specialist s, and tried multiple antihistam ofe [...] assessment and plan as documented by the supervisor printing shop. I provided real-time medical direction for this [...] Davidson Member ID Guarantor Name 07/23/2024 1 [facility] - DOS ON OR AFTER 2022 - DUAL ELIGIBLE - RETIREMENT OPTIONS AND ONE CARE (MEDICARE REPLACEMENT/ADV ANTAGE - HMO) Celia Madrigal [id number] Celia Madrigal Notes Date Note Type Note [...] cough, sore throat, fever. 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 Member requesting home visit. Member advised to call 911 with any worsening symptoms. PMH: includes but not limited to HTN, coronary artery disease, asthma, IBD, GERD, anxiety ..................... ..................... ..................... ..................... ..................... ..................... ............... CRC Nurse Triage Notes (Leonor Vizcaino): Comments: No further information required to process visit. ..................... ..................... ..................... ..................... ..................... ..................... ............... Scalehouse Attendant Note From Yuri Bedolla: Encountered patient conscious, [...] performed, both resulted negative; results relayed to [facility]. Skin warm, dry and of appropriate color for ethnicity. Head and neck, free of trauma and edema. ? JVD. Breath sounds diminished in all hopper and exhibit faint expiratory wheezes in the apexes bilaterally. Abdomen soft, non-tender and non-distended. extremities, free of trauma and edema. [facility] contacted: Duoneb treatment administered. 12 lead EKG performed: sinus rhythm with septal T-wave inversion noted. 30 mg of PO prednisone administered. [facility] to write prescription for further treatment at [...] would also like to remain at home. Scalehouse Attendant Allergies: Penicillin, Aspirin ..................... ..................... ..................... ..................... ..................... ..................... ............... Disposition: Luann Efrain Gomez MD [address] [facility],[address], [place], [address], [place] [facility] 05/19/2023 19:03:41 07/23/2024 text/html CRC Nurse Triage [...] ..................... ..................... ..................... ..................... ..................... ..................... ............... Scalehouse Attendant Note From Bradford Solorio: This 69-year-old female [...] because of the risks. Patient states the director social started her on Dupixent injections every two weeks. Patient has had two injections in the director social states that this could take two to three months before it starts working. Patient states she went to [facility] over the weekend and was prescribed [...] her PCP on Tuesday and involve the director social if necessary. I instructed her to present to the emergency department for any new or worsening severe symptoms such as chest pain, shortness of breath, dysphagia, high fever, altered mental status. The patient was given the opportunity to ask questions and is agreeable to this plan. ..................... ..................... ..................... ..................... ..................... ..................... ............... [facility] Consulted: Iris Boo ..................... ..................... ..................... ..................... ..................... ..................... ............... Disposition: Fulfilled Iris Boo MD [address] [facility], [place], [phone], [facility] 07/23/2024 19:23:45 OBGyn Episode No OBEpisode recorded.
--- OUTSIDE RECORDS SUMMARY | 2024-08-29 12:50 | XMS_ITS | Encounter Summary ---
Author Organization [facility] Address [address] [place] [address] Care Team Providers Care Architectural Technologist Name Role Phone Curt Falk MD Primary Care Provider + [phone] Reason for Visit * Auth/Cert (Routine) Specialty Diagnoses / Procedures Referred By Contac t Referred To Contact Diagnoses Overactive bladder Overactive bladder Procedures AR INS/REPL CONRAD/SACRAL/GASTRIC NSTIM PG/REC REQ POCKET CREATION/CONN AR ANALYSIS IMPLANTED NEUROSTIM PULSE GENERATOR SYSTEM COMPLEX/PROGRAMING SACRAL NEUROMODULATOR STAGE 2 SACRAL NEUROMODULATOR STAGE 2 Quang Hurd MD [address] [address] Phone: tel: fax: [facility] Main OR [address] [place] [phone] Phone: tel: Referral ID Status Reason Start Date Expiration Date Visits Re quested Visits Authorized [id number] 1 1 Encounter Details Date Type Department Care Team (Late st Contact Info) Description 08/27/2024 12:00 PM EDT - 08/27/2024 1:30 PM EDT Surgery [facility] Main OR [address] [place] [id number] Quang Hurd MD [address] [address] SACRAL NEUROMODULATOR STAGE 2 [[id number] (CPT??) +1 more] Surgery Details Date/Time Status Location OR Service Patient Class Case Cl ass Case Type Trauma Case? 08/27/2024 12:00 PM Posted [facility] OR OR [address] [place] [address] Outpatient Surgery F - Elective Panel 1 Procedure LRB Anes Op Region Wound Class Comments SACRAL NEUROMODULATOR STAGE 2 N/A general Back Class I/ Clean Surgeon Surgeon Role Service Panel Quang Hurd MD Primary Urology 1 Case Notes C-ARM, [facility] documented in this encounter Social History Tobacco Use Types Packs/Day Years Used Date Smoking Tobacco: Never Smokeless Tobacco: Former Alcohol Use Standard Drinks/Week Comments Never 0 (1 standard drink = 0.6 oz pur e alcohol) Interpersonal Safety Answer Date Record ed Physical Abuse 08/27/2024 Verbal Abuse 08/27/2024 Comments No Sex and Gender Information Value Date Recorded Sex Assigned at Female 07/30/2024 2:35 PM EDT Legal Sex Female 2:18 AM EST Gender Identity Female 07/30/2024 2:35 PM EDT Sexual Orientation Straight 07/30/2024 2: 35 PM EDT documented as of this encounter Last Filed Vital Signs Vital Sign Reading Time Taken Comments Blood Pressure 132/61 08/27/2024 1:03 PM EDT Pulse 90 08/27/2024 1:03 PM EDT Temperature 36.3 ??C (97.4 ??F) 08/27/2024 12:29 PM E DT Respiratory Rate 18 08/27/2024 12:29 PM EDT Oxygen Saturation 98% 08/27/2024 12:52 PM EDT Inhaled Oxygen Concentration - - Weight 93 kg (205 lb) 08/13/2024 10:00 AM EDT Height 149.9 cm (4' 11 ) 08/13/2024 10:00 AM EDT Body Mass Index 41.4 08/13/2024 10:00 AM EDT documented in this encounter Discharge Summaries * Quang Hurd MD - 08/27/2024 12:36 PM EDT Urology Discharge Instructions: Call your health care provider/doctor for: You can reach the office at the number listed under follow up providers on the AVS. When the office is closed there is a 24hr answering service available at the same phone number. Temperature above 101 F, fevers or chills. Persistent Nausea / Vomiting or Diarrhea. Significant pain not relieved by medication In most cases you should call the office before proceeding to the Emergency Room. However, if you have any sudden and/or severe symptoms like chest pain or shortness of breath call 911 Medications: Take your medications as described in your after visit summary. Please resume all of your normal home medications unless instructed to do otherwise If you were prescribed antibiotics please take them as prescribed Pain Management: Take tylenol / ibuprofen as needed for discomfort Bowel Function: You may resume your regular diet Activity Restrictions: You may shower in 36 hours documented in this encounter Discharge Instructions * Attachments The following attachments cannot be sent through Care Everywhere. * Sedation: General Info (Qatari) documented in this encounter Medications at Time of Discharge acetaminophen (TYLENOL) 325 mg tablet Take 2 tablets (650 mg total) by mouth every 6 (six) hours if needed. albuterol HFA (PROAIR HFA ; PROVENTIL HFA ; VENTOLIN HFA) 90 mcg/actuation inhaler Inhale 2 puffs by mouth every 4 (four) hours if needed. atorvastatin (LIPITOR) 10 mg tablet Take 1 tablet (10 mg total) by mouth at bedtime. benzonatate (TESSALON) 200 mg capsule Take 1 capsule (200 mg total) by mouth 3 (three) times a day if needed. 07/14/2023 buprenorphine HCL [address] 150 mcg into mouth between cheek and gum 2 (two) times a day. Max Daily Amount: 300 mcg dupilumab (DUPIXENT) 300 mg/2 mL pen Inject under the skin. escitalopram (LEXAPRO) 20 mg tablet Take 1 tablet (20 mg total) by mouth 1 (one) time each day. ezetimibe (ZETIA) 10 mg tablet Take 1 tablet (10 mg total) by mouth 1 (one) time each day. fluticasone furoate-vilante roL (BREO ELLIPTA) 200-25 mcg/dose inhaler Inhale 1 puff by mouth 1 (one) time each day if needed. ibuprofen (ADVIL,MOTRIN) 600 mg tablet Take 1 tablet (600 mg total) by mouth every 8 (eight) hours if needed for mild pain. loratadine (CLARITIN) 10 mg tablet Take 1 tablet (10 mg total) by mouth 1 (one) time each day. LORazepam (ATIVAN) 0.5 mg tablet Take 1 tablet (0.5 mg total) by mouth every 8 (eight) hours if needed. montelukast (SINGULAIR) 10 mg tablet Take 1 tablet (10 mg total) by mouth at bedtime. naloxone (NARCAN) 4 mg/actuation nasal spray KIT (Take home med ONLY) Administer 1 spray (4 mg total) into affected nostril(s) See administration instructions. EVERY 3MIN PRN FOR OPOID OD omeprazole (PriLOSEC) [address] capsule Take 1 capsule (40 mg total) by mouth 1 (one) time each day. predniSONE (DELTASONE) 10 mg tablet Take 1 tablet (10 mg total) by mouth 1 (one) time each day. 4TABS X 3D,THEN 3 TABS X 3,THEN 2 TABS X 3D THEN 1 TAB X 3 DAYS FOR 12 DAYS traZODone (DESYREL) 100 mg tablet Take 1 tablet (100 mg total) by mouth at bedtime. zolpidem (AMBIEN) 5 mg tablet Take by mouth at bedtime as needed for sleep. documented as of this encounter Discharge Disposition Disposition Code Departure Means Destination Comment s Home or Self Care Wheelchair Home documented in this encounter H&P Notes * Quang Hurd MD - 08/27/2024 10:28 AM EDT H&P 69 yo female who presents for stage 2 sacral neuromodulation Successful stage 1 trial with >50% improvement in symptoms General: In no acute distress, resting comfortably Resp: Normal work of breathing on room air Cardiovascular: Well-perfused GI: Abdomen soft, nontender, nondistended Back: Device in place with gauze and tegaderm Quang Hurd MD documented in this encounter Procedure Notes * Quang Hurd MD - 08/27/2024 12:10 PM EDT OPERATIVE NOTE: SACRAL NEUROMODULATION STAGE 2 Celia Horne 1955 Preoperative diagnoses: urge urinary incontinence, urinary frequency Postoperative diagnosis: Same CPT codes: 94832, 22654 Company: [employer] Complications: None Antibiotics: Gentamicin Indications: Successful stage I sacral neuromodulation trial. Presents today for stage II. Operation: The patient was brought into the operating room and placed in the prone position after mac anesthesia was induced. The patient was then prepped and draped in the standard sterile fashion. The prior pocket site was anesthetized with lidocaine. Using a blade and electrocautery the incision was opened. The extension wiring was identified and cut. The lead was removed. The extension was withdrawn externally and removed off of the sterile field. The lead was cleaned and dried. The lead was inserted into the battery which was tightened into place. The pocket was confirmed and further dissected as needed to accommodate the battery. The battery was inserted with the excess wiring underneath it. Impedances were checked and all appropriate. The wound was copiously irrigated with Ancef irrigation in sterile saline. The incision was closed with 3-0 Vicryl for the subcutaneous layer and r unning 4-0 Monocryl for the skin layer. Skin glue was applied over top the incision. Instrument, sponge, and needle counts were correct. The patient was awoken from anesthesia and transferred to the recovery room in stable condition. Plan: Discharge home today Ok to shower in 36 hours Quang Hudr MD * Brittany Mahan RN - 08/27/2024 10:02 AM EDT [facility] [phone] documented in this encounter Plan of Treatment Not on file documented as of this encounter Procedures Procedure Name Priority Date/Time Associated Diagnosis Comments AR ANALYSIS IMPLANTED NEUROSTIM PULSE GENERATOR SYSTEM COMPLEX/PROGRAMING 08/27/2024 11:55 AM EDT Overactive bladder Case Notes C-ARM, [facility] AR INS/REPL CONRAD/SACRAL/GASTRIC NSTIM PG/REC REQ POCKET CREATION/CONN 08/27/2024 11:55 AM EDT Overactive bladder Case Notes C-ARM, [facility] documented in this encounter Visit Diagnoses Diagnosis Gastroesophageal reflux disease without esophagitis Esophageal reflux Chronic renal impairment, stage 3 (moderate) ([facility] V24, [facility] V28) Asthma Unspecified asthma Overactive bladder Hypertonicity of bladder documented in this encounter Administered Medications Inactive Administered Medications - up to 3 most recent administrations Medication Order MAR Action Action Date Dose Rate Site acetaminophen (TYLENOL) tablet 1,000 mg 1,000 mg, oral, Once as needed, mild pain, Starting on Tue08/27/24 at 1248, For 1 dose, Phase II/On Unit diphenhydrAMINE (BENADRYL) injection 12.5 mg 12.5 mg, intravenous, Once as needed, nausea and vomitting, Starting on Tue08/27/24 at 1248, For 1 dose, Phase II/On Unit, Give as THIRD antiemetic in order set haloperidol lactate (HALDOL) injection 1 mg 1 mg, intravenous, Once as needed, nausea and vomitting, Starting on Tue08/27/24 at 1248, For 1 dose, Phase II/On Unit, Give as SECOND antiemetic in order set May be ordered via either intramuscular or intravenous route. If ordered IV, maximum of 5 mg/minute. lactated Ringer's infusion 75 mL/hr, intravenous, Continuous, Starting on Tue08/27/24 at 1015, Preprocedure Restarted 08/27/2024 11:55 AM EDT New Bag 08/27/2024 10:45 AM EDT 75 mL/hr 75 mL/hr lidocaine-EPINEPHrine (XYLOCAINE W/EPI) 1 %-1:100,000 injection As needed, Starting on Tue08/27/24 at 1155, Intraprocedure Given 08/27/2024 11:55 AM EDT 10 mL ondansetron (PF) (ZOFRAN) injection 4 mg 4 mg, intravenous, Once as needed, nausea, vomiting, Starting on Tue08/27/24 at 1248, For 1 dose, Phase II/On Unit, Give as FIRST antiemetic in order set Infuse over 2 minutes. oxyCODONE (ROXICODONE) immediate release tablet 5 mg 5 mg, oral, Once as needed, moderate pain, Starting on Tue08/27/24 at 1248, For 1 dose, Phase II/On Unit sodium chloride 0.9 % flush 10 mL 10 mL, intravenous, 2 times daily, First dose on 08/27/24 at 1015, Preprocedure sodium chloride 0.9 % flush 10 mL 10 mL, intravenous, As needed, line care, Starting on Tue08/27/24 at 0952, Preprocedure documented in this encounter Discontinued Medications Medication Sig Discontinue Reason Start Date End Da te clonazePAM (KlonoPIN) 1 mg tablet Take 0.5 mg by mouth 3 (three) times a day. Max Daily Amount: 1.5 mg Prescriber Discontinued 08/27/2024 documented as of this encounter Active and Recently Administered Medications Times are shown in EDT. Scheduled Medication Order 08/25/2024 08/26/2024 08/27/2024 gentamicin (GARAMYCIN) 120 mg/100 mL IVPB (premix) 120 mg (COMPLETED) 120 mg, intravenous, at 200 mL/hr, Administer over 30 Minutes, Once, On Tue08/27/24 at 0945, For 1 dose, Preprocedure, premix bag, Indication: Prophylaxis-Surgical 1145 (Given - Provid er: Fanta Galeano CRNA) sodium chloride 0.9 % flush 10 mL(Linked Group 1) 10 mL, intravenous, 2 times daily, First dose on Tue08/27/24 at 1015, Preprocedure 1015 (Canceled Entry - Provider: Automatic Discharge Provider - Comment: Automatically canceled at discontinue of medication order) Continuous Medication Order 08/25/2024 08/26/2024 08/27/2024 lactated Ringer's infusion 75 mL/hr, intravenous, Continuous, Starting on Tue08/27/24 at 1015, Preprocedure 1045 (New Bag - Prov ider: Brittany Mahan RN)1154 (Paused - Provider: Fanta Galeano CRNA - Comment: Switch to gravity)1155 (Restarted - Provider: Fanta Galeano CRNA)1235 (Anesthesia Volume Adjustment - Provider: Fanta Galeano CRNA)1602 (Due: Stopped) PRN Medication Order 08/25/2024 08/26/2024 08/27/2024 acetaminophen (TYLENOL) tablet 1,000 mg 1,000 mg, oral, Once as needed, mild pain, Starting on Tue08/27/24 at 1248, For 1 dose, Phase II/On Unit diphenhydrAMINE (BENADRYL) injection 12.5 mg 12.5 mg, intravenous, Once as needed, nausea and vomitting, Starting on Tue08/27/24 at 1248, For 1 dose, Phase II/On Unit, Give as THIRD antiemetic in order set haloperidol lactate (HALDOL) injection 1 mg 1 mg, intravenous, Once as needed, nausea and vomitting, Starting on Tue08/27/24 at 1248, For 1 dose, Phase II/On Unit, Give as SECOND antiemetic in order set May be ordered via either intramuscular or intravenous route. If ordered IV, maximum of 5 mg/minute. lidocaine-EPINEPHrine (XYLOCAINE W/EPI) 1 %-1:100,000 injection (CANCELED) As needed, Starting on Tue08/27/24 at 1155, Intraprocedure 1155 (Given - Provid er: Quang Hurd MD) ondansetron (PF) (ZOFRAN) injection 4 mg 4 mg, intravenous, Once as needed, nausea, vomiting, Starting on Tue08/27/24 at 1248, For 1 dose, Phase II/On Unit, Give as FIRST antiemetic in order set Infuse over 2 minutes. oxyCODONE (ROXICODONE) immediate release tablet 5 mg 5 mg, oral, Once as needed, moderate pain, Starting on Tue08/27/24 at 1248, For 1 dose, Phase II/On Unit sodium chloride 0.9 % flush 10 mL(Linked Group 1) 10 mL, intravenous, As needed, line care, Starting on Tue08/27/24 at 0952, Preprocedure Linked Groups Order Group 1: Insert peripheral IV (CANCELED) STAT, Once, On Tue08/27/24 at 0953, For 1 occurrence, Preprocedure And Maintain IV access (CANCELED) Until discontinued, Starting on Tue08/27/24 at 0953, Until Specified, Preprocedure And Saline lock IV (CANCELED) Routine, Once, On Tue08/27/24 at 0953, For 1 occurrence, Preprocedure And sodium chloride 0.9 % flush 10 mLJump to med 10 mL, intravenous, 2 times daily, First dose on Tue08/27/24 at 1015, Preprocedure And sodium chloride 0.9 % flush 10 mLJump to med 10 mL, intravenous, As needed, line care, Starting on Tue08/27/24 at 0952, Preprocedure documented in this encounter Orders Medications Ordered That Fransico ht Not Have Been Administered Count Last Ordered Date First Ordered Date acetaminophen (TYLENOL) tablet 1,000 mg 1 0 08/27/2024 ceFAZolin (ANCEF) 2 g in kalr rile water 20 mL IV syringe 1 08/27/2024 ceFAZolin (ANCEF) 2 gram/20 mL IV syringe 2 g 1 08/27/2024 diphenhydrAMINE (BENADRYL) i njection 12.5 mg 1 08/27/2024 gentamicin (GARAMYCIN) 120 m g/100 mL IVPB (premix) 120 mg 1 08/27/2024 haloperidol lactate (HALDOL) injection 1 mg 1 08/27/2024 ondansetron (PF) (ZOFRAN) injection 4 mg 1 08/27/2024 oxyCODONE (ROXICODONE) immed iate release tablet 5 mg 1 08/27/2024 sodium chloride 0.9 % flush 10 mL 2 025 Discharge Count Last Ordered Date First Orde red Date DISCHARGE PATIENT 1 08/27/2024 documented in this encounter Care Teams Architectural Technologist Relationship Specialty Start Date End Date Curt Falk MD [address] [place] [address] Dr [address] WILLIAM Barrera PCP - General 07/16/21 documented as of this encounter
--- OUTSIDE RECORDS SUMMARY | 2024-08-29 12:50 | XMS_ITS | Continuity of Care Document ---
Author Organization [facility] Address [address] [place] [address] Phone Care Team Providers Care Freight Hustler Name Role Phone Leonor Yousif DMD Unavailable [...] Diagnoses Date Provider Providers Copied on Encounter [facility], [address] [place], [place], [id number], [place] tel:[phone] [facility] Encounter for dental examination and cleaning with abnormal findingsTobacco abuse counselingOther specified counselingRisk for dental caries, highDietary counseling and surveillance David Galvez. [address], [place], [id number], [place]. tel:[phone] Family History Family Member Type Diagnosis Age At Onset No Information Payers Payer name Insurance type Covered libertarian ID Omid otero(s) Dental [facility] OP [id number] DENTICAL [id number] Social History Type Description Quantity Date Captured [...]
--- OUTSIDE RECORDS SUMMARY | 2024-08-29 12:50 | XMS_ITS | Clinical Summary ---
Author Organization [facility] [place] [address] Phone Care Team Providers Care Shingle Cutter Name Role Phone Curt Falk MD Primary Care Provider + [phone] Allergies Active Allergy Reactions Criticality Noted Date [...] 3 (three) times a day if needed. 07/14/19 24 Active buprenorphine HCL [address] 150 mcg into mouth between cheek and gum 2 (two) times a day. Max Daily Amount: 300 mcg Active fluticasone furoate-vilant Deny (BREO ELLIPTA) 200-25 [...] X 3 DAYS FOR 12 DAYS Active clonazePAM (KlonoPIN) 1 mg tablet Take 0.5 mg by mouth 3 (three) times a day. Max Daily Amount: 1.5 mg 025 Discontin ued(Presc riber Discontin ued) Active Problems Problem Noted Date Diagnosed Date Gastroesophageal reflux disease without esophagi tis 08/27/2024 Chronic renal impairment, st age 3 (moderate) ([facility] V24, [facility] V28) 08/27/2024 Asthma 08/27/2024 Encounters Date Type Department Care Team Description 08/27/2024 12:00 PM EDT - 08/27/2024 1:30 PM EDT Surgery [facility] Main OR [address] [place] [phone] Quang Hurd MD SACRAL NEUROMODULATOR STAGE 2 [[id number] (CPT??) +1 more] 08/27/2024 11:55 AM EDT Anesthesia Event [facility] OR [address] [place] [phone] Leeann Anders MD 08/27/2024 9:15 AM EDT - 08/27/2024 1:30 PM EDT Hospital Encounter [facility] OR [address] [place] [phone] Quang Hurd MD Discharge Disposition: Home or Self Care 08/15/2024 9:07 AM EDT Anesthesia Event [facility] OR [address] [place] [phone] Dennis Maldonado DO 08/15/2024 9:00 AM EDT - 08/15/2024 10:30 AM EDT Surgery [facility] OR [address] [place] [phone] Quang Hurd MD SACRAL NEUROMODULATOR STAGE 1 [[id number] (CPT??) +1 more] 08/15/2024 6:53 AM EDT - 08/15/2024 10:50 AM EDT Hospital Encounter [facility] OR [address] [place] [phone] Quang Hurd MD Discharge Disposition: Home or Self Care from Last 3 Months Surgical History Surgery Date Site/Laterality Comments OTHER SURGICAL HISTORY PROCEDURE: HISTORY OTHER; COMMENT: COLONOSCOPY OTHER SURGICAL HISTORY PROCEDURE: HISTORY OTHER; COMMENT: TOOTH EXTRACTION OTHER SURGICAL HISTORY 09/22/2021 Right PROCEDURE: HISTORY OTHER; COMMENT: TOTAL KNEE REPLACEMENT [...] Hyperlipidemia Hypertension CHF (congestive heart failur e) ([facility] V24, [facility] V28) Shortness of breath Chronic kidney disease [...] 08/15/2024 7:40 AM EDT Plan of Treatment Health Maintenance Due Date Last Done Comments Breast Cancer Screening 1955 Pneumococcal Vaccine: 50+ Ye ars (1 of 2 - PCV) 1973 Zoster Vaccines (1 of 2) 2004 RSV [...] Vaccine (Season Ended) 2024 Falls Risk Assessment 08/27/2025 08/27/2024 DTaP,Tdap,and Td Vaccines (2 - Td or [...] this topic Medical Devices Implanted Type Area Molding Machine Operator Device Identifier Shelf Expiration Date Model / Serial / Lot Joints Knee Joints Knee Right: Knee Cable Ext Interstim 4.32mm - Sn/A - [id number] Implanted:Qty: 1 on 08/15/2024 by Quang Hurd MD at [facility] Neurostim N/A: Sacrum [employer] 09/12/2025 [id number] / N/A / [id number] Kit Mri Lead Interstim 4.32-28cm - Sn/A - [id number] Implanted:Qty: 1 on 08/15/2024 by Quang Hurd MD at [facility] Neurostim N/A: Sacrum [employer] 10/09/2025 [id number] / N/A / [id number] System Interstim X Recharge-Free F/Bladder/Valentina l Cntrl - [id number] - [id number] Implanted:Qty: 1 on 08/27/2024 by Quang Hurd MD at [facility] Neurostim N/A: Back [employer] 06/15/2025 [id number] / [id number] / N/A Procedures Procedure Name Priority Date/Time Associated Diagnosis Comments [place] ANALYSIS IMPLANTED NEUROSTIM PULSE GENERATOR SYSTEM COMPLEX/PROGRAMING 08/27/2024 11:55 AM EDT Overactive bladder Case Notes C-ARM, [facility] TN INS/REPL CONRAD/SACRAL/GASTRIC NSTIM PG/REC REQ POCKET CREATION/CONN 08/27/2024 11:55 AM EDT Overactive bladder Case Notes C-ARM, [employer] XR PELVIS 1-2 VIEWS Routine 08/15/2024 9 :42 AM EDT TN ANALYSIS IMPLANTED NEUROSTIM PULSE GENERATOR SYSTEM COMPLEX/PROGRAMING 08/15/2024 9:07 AM EDT Overactive bladder Case Notes C-ARM, [employer] TN PERC IMPLANTATION NSTIM ELECTRODE ARRAY SACRAL NERVE [...] Signed Date: 08/15/2024 10:35 ET Workstation ID: [id number] Transcribed By: Self Edit Transcribed Date: 08/15/2024 [...] Signed Date: 08/15/2024 10:35 ET Workstation ID: [id number] Transcribed By: Self Edit Transcribed Date: 08/15/2024 10:32 ET Quang Hurd MD IMG XR PROCEDURES Fi nal Result * ECG 12 lead - Procedural (No Charge) (08/15/2024 7:24 AM EDT) Ventricular Rate ECG 82 BPM GEMUSE Atrial Rate 82 BPM GEMUSE P-R Interval 124 ms GEMUSE QRS Duration 70 ms GEMUSE Q-T Interval 338 ms GEMUSE QTc 394 ms GEMUSE P Wave [place] 58 degrees GEMUSE R [place] 20 degrees GEMUSE T [place] 42 degrees GEMUSE ECG Interpretation Normal sinus rhythm Nonspecific ST and T wave abnormality Abnormal ECG When compared with ECG of 14-JUL-2023 00:18, QT has shortened Confirmed by Marilyn STEIN JAMES ([id number]) on 08/15/2024 4:44:39 PM GEMUSE 08/15/2024 7:24 AM EDT 08/15/2024 4:44 PM EDT us Dennis Maldonado DO ECG ORDERABLES Final Result GEMUSE from Last 3 Months Insurance [facility] [employer] Member Subscriber Plan / Payer (Ef fective 2024-Present) Name:JlgarrettarchanaCelia Islas Relation to Subscriber:Self Name:Celia Marquez M Payer ID:[id number] Group ID:Not on file Type:Not on file Address: [place] [address] [address] [phone] Care Teams Shingle Cutter Relationship Specialty Start Date End Date Curt Falk MD [address] [place] [address] [address] WILLIAM Barrera PCP - General 07/16/21
--- OUTSIDE RECORDS SUMMARY | 2024-08-29 12:50 | XMS_ITS | Continuity of Care Document ---
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 Name Role Phone Resident MD, Internal Med [...] twice a day with food - Active geobydha-jbfoaidcn-d ydrocort 3.5 mg/mL-10,000 unit/mL-1 % ear solution [...] With Patient And O r Family M [employer] - WALK IN [facility] PT Psychotherapy, 30 Min With Patient And O r Family M [employer] - WALK IN [facility] PT Non-Billable Phone Consultation Psychotherapy, 30 Min With Patient And O r Family M [employer] SU[employer]TER - WALK IN [facility] PT Psychotherapy, 45 Min With Patient [...] With Patient And O r Family M [employer] SUPPORT FITTER - WALK IN [facility] PT VENIPUNCTURE LIMITED EXAM,ESTAB PAT. Psychotherapy, 30 Min With Patient And O r Family M [employer] SUPPORT FITTER - WALK IN [facility] PT HEMOGLOBIN (HGB) INTERMED EXAM,ESTAB PAT [...] mplete CHOLESTEROL, TOTAL 23:48:29 PendingIncomp lete Performed by:[facility] (EN)[address] [place] [address] Panel Description: LIPID PANEL, STANDARD PendingInco mplete CHOLESTEROL, TOTAL 01:24:43 PendingIncomp lete Performed by:[facility] (EN)[address] [place] [address] Panel Description: LIPID PANEL, STANDARD Final CHOLESTEROL, TOTAL 09:33:46 169 mg/dL <200 N Final Performed by:[facility] (EN)[address] [place] [address] Panel Description: LIPID PANEL, STANDARD Final CHOLESTEROL, TOTAL 12:30:11 169 mg/dL <200 N Final Performed by:[facility] (EN)[address] [place] [address] Panel Description: Bacteria identified in Urine by Culture PendingInco mplete CULTURE 23:48:29 SEE NOTE PendingIncomp lete Performed by:[facility] (EN)[address] [place] [address] Panel Description: Bacteria identified in Urine by Culture PendingInco mplete CULTURE 01:24:43 SEE NOTE PendingIncomp lete Performed by:ElectrikusHam Magana (EN)[address] [place] [address] Panel Description: Bacteria identified in Urine by Culture PendingInco mplete CULTURE 09:33:46 SEE NOTE PendingIncomp lete Performed by:ElectrikusHam Magana (EN)[address] [place] [address] Panel Description: Bacteria identified in Urine by Culture Final CULTURE, URINE, ROUTINE 12:30:11 SEE NOTE Final CULTURE, URINE , ROUTINE Micro Number: [id number] Test Status: Final Specimen Source: Urine Specimen Quality: Adequate Result: Less than 10,000 CFU/mL of single Gram positive organism isolated. No further testing will be performed. If clinically indicated, recollection using a method to minimize contamination, with prompt transfer to Urine Culture Transport Tube, is recommended.Per formed by:ElectrikusHam Magana (EN)[address] [place] [address] Panel Description: LIPID PANEL, STANDARD PendingInco mplete HDL CHOLESTEROL 23:48:29 PendingIncomp lete Performed by:ElectrikusHam Magana (EN)[address] [place] [address] Panel Description: LIPID PANEL, STANDARD PendingInco mplete HDL CHOLESTEROL 01:24:43 PendingIncomp lete Performed by:ElectrikusHam Magana (EN)[address] [place] [address] Panel Description: LIPID PANEL, STANDARD Final HDL CHOLESTEROL 09:33:46 46 mg/dL > OR = 50 L Final Performed by:Electrik[facility]Ham Magana (EN)[address] [place] [address] Panel Description: LIPID PANEL, STANDARD Final HDL CHOLESTEROL 12:30:11 46 mg/dL > OR = 50 L Final Performed by:Electrik[facility]Ham Magana (EN)[address] [place] [address] Panel Description: LIPID PANEL, STANDARD PendingInco mplete TRIGLYCERIDE S 23:48:29 PendingIncomp lete Performed by:ElectrikusHam Magana (EN)[address] [place] [address] Panel Description: LIPID PANEL, STANDARD PendingInco mplete TRIGLYCERIDE S 01:24:43 PendingIncomp lete Performed by:ElectrikusHam Magana (EN)[address] [place] [address] Panel Description: LIPID PANEL, STANDARD Final TRIGLYCERIDE S 09:33:46 105 mg/dL <150 N Final Performed by:ElectrikusHam Magana (EN)[address] [place] [address] Panel Description: LIPID PANEL, STANDARD Final TRIGLYCERIDE S 12:30:11 105 mg/dL <150 N Final Performed by:ElectrikusHam Magana (EN)[address] [place] [address] Panel Description: LIPID PANEL, STANDARD PendingInco mplete LDL-CHOLESTE ROL 23:48:29 PendingIncomp lete Performed by:ElectrikusHam Magana (EN)[address] [place] [address] Panel Description: LIPID PANEL, STANDARD PendingInco mplete LDL-CHOLESTE ROL 01:24:43 PendingIncomp lete Performed by:ElectrikusHam Magana (EN)[address] [place] [address] Panel Description: LIPID PANEL, STANDARD Final LDL-CHOLESTE [...] LDL-C. Jak CRAWFORD et al. ROHITH. 2013;310(19): 0826-3576 (http://educati [email or web address]/faq/FA Q164)Performed by:[facility] saman Magana (EN)[address] [place] [address] Panel Description: LIPID PANEL, STANDARD Final LDL-CHOLESTE [...] LDL-C. Jak CRAWFORD et al. ROHITH. 2013;310(19): 2229-6043 (http://educati on.PadMatcher.[email or web address]/faq/FA Q164)Performed by:[facility] saman Magana (EN)[address] [place] [address] Panel Description: LIPID PANEL, STANDARD PendingInco mplete CHOL/HDLC RATIO 23:48:29 PendingIncomp lete Performed by:[facility] saman Magana (EN)[address] [place] [address] Panel Description: LIPID PANEL, STANDARD PendingInco mplete CHOL/HDLC RATIO 01:24:43 PendingIncomp lete Performed by:[facility] saman Magana (EN)[address] [place] [address] Panel Description: LIPID PANEL, STANDARD Final CHOL/HDLC RATIO 09:33:46 3.7 (calc) <5.0 N Final Performed by:[employer] [facility] (EN)[address] [place] [address] Panel Description: LIPID PANEL, STANDARD Final CHOL/HDLC RATIO 12:30:11 3.7 (calc) <5.0 N Final Performed by:[employer] [facility] (EN)[address] [place] [address] Panel Description: LIPID PANEL, STANDARD PendingInco mplete NON HDL CHOLESTEROL 23:48:29 PendingIncomp lete Performed by:[employer] [facility] (EN)[address] [place] [phone] Panel Description: LIPID PANEL, STANDARD PendingInco mplete NON HDL CHOLESTEROL 01:24:43 PendingIncomp lete Performed by:ElectrikusHam Magana (EN)[address] [place] [address] Panel Description: LIPID PANEL, STANDARD Final NON HDL CHOLESTEROL 09:33:46 123 mg/dL (calc) <130 N Final For patients with diabetes plus 1 major ASCVD risk factor, treating to a non-HDL-C goal of <100 mg/dL (LDL-C of <70 mg/dL) is considered a therapeutic option.Performe d by:ElectrikusHam Magana (EN)[address] [place] [address] Panel Description: LIPID PANEL, STANDARD Final NON HDL CHOLESTEROL 12:30:11 123 mg/dL (calc) <130 N Final For patients with diabetes plus 1 major ASCVD risk factor, treating to a non-HDL-C goal of <100 mg/dL (LDL-C of <70 mg/dL) is considered a therapeutic option.Performe d by:ElectrikusHam Magana (EN)[address] [place] [address] Panel Description: URINALYSI S, COMPLETE W/REFLEX TO CULTURE Final COLOR 23:48:29 YELLOW YELLOW N Final Performed by:Electrik[facility]Ham Magana (EN)[address] [place] [phone] APPEARANCE 23:48:29 CLEAR CLEAR N Final Performed by:[facility]rik[facility]Ham Magana (EN)[address] [place] [address] SPECIFIC GRAVITY 23:48:29 1.016 1.001-1.03 5 N Final Performed by:Electrik[facility]Ham Magana (EN)[address] [place] [address] PH 23:48:29 7.0 5.0-8.0 N Final Performed by:ElectrikusHam Magana (EN)[address] [place] [address] GLUCOSE 23:48:29 NEGATIVE NEGATIVE N Final Performed by:Electrik[facility]Ham Magana (EN)[address] [place] [phone] BILIRUBIN 23:48:29 NEGATIVE NEGATIVE N Final Performed by:ElectrikusHam Magana (EN)[address] [place] [phone] KETONES 23:48:29 NEGATIVE NEGATIVE N Final Performed by:[employer] Magana (EN)[address] [place] [phone] OCCULT BLOOD 23:48:29 NEGATIVE NEGATIVE N Final Performed by:[employer] Magana (EN)[address] [place] [phone] PROTEIN 23:48:29 NEGATIVE NEGATIVE N Final Performed by:ElectrikusHam Magana (EN)[address] [place] [phone] NITRITE 23:48:29 NEGATIVE NEGATIVE N Final Performed by:Electrik[facility]Ham Magana (EN)[address] [place] [phone] LEUKOCYTE ESTERASE 23:48:29 1+ NEGATIVE A Final Performed by:[facility]rik[facility] Magana (EN)[address] [place] [phone] WBC 23:48:29 NONE SEEN /HPF < OR = 5 N Final Performed by:[facility]rik[facility]Ham Magana (EN)[address] [place] [phone] RBC 23:48:29 NONE SEEN /HPF < OR = 2 N Final Performed by:[facility]rik[facility] Magana (EN)[address] [place] [phone] SQUAMOUS EPITHELIAL CELLS 23:48:29 6-10 /HPF < OR = 5 A Final Performed by:[facility] Magana (EN)[address] [place] [phone] BACTERIA 23:48:29 FEW /HPF NONE SEEN A Final Performed by:[facility]rik[facility] Magana (EN)[address] [place] [phone] HYALINE CAST 23:48:29 NONE SEEN /LPF NONE SEEN N Final Performed by:[facility]rik[facility] Magana (EN)[address] [place] [phone] NOTE 23:48:29 SEE COMMENT Final This urine was analyzed for the presence of WBC, RBC, bacteria, casts, and other formed elements. Only those elements seen were reported. Performed by:Electrik[facility]Ham Magana (EN)[address] [place] [address] Panel Description: URINALYSI S, COMPLETE W/REFLEX TO CULTURE Final COLOR 01:24:43 YELLOW YELLOW N Final Performed by:[facility]rik[facility] Magana (EN)[address] [place] [address] APPEARANCE 01:24:43 CLEAR CLEAR N Final Performed by:[facility]rik[employer] Magana (EN)[address] [place] [address] SPECIFIC GRAVITY 01:24:43 1.016 1.001-1.03 5 N Final Performed by:[facility]rik[facility]Ham Magana (EN)[address] [place] [phone] PH 01:24:43 7.0 5.0-8.0 N Final Performed by:[facility]rik[facility]Ham Magana (EN)[address] [place] [phone] GLUCOSE 01:24:43 NEGATIVE NEGATIVE N Final Performed by:[facility]rik[facility]Ham Magana (EN)[address] [place] [phone] BILIRUBIN 01:24:43 NEGATIVE NEGATIVE N Final Performed by:[facility] Magana (EN)[address] [place] [phone] KETONES 01:24:43 NEGATIVE NEGATIVE N Final Performed by:[facility]rik[facility]Ham Magana (EN)[address] [place] [phone] OCCULT BLOOD 01:24:43 NEGATIVE NEGATIVE N Final Performed by:ElectrikusHam Magana (EN)[address] [place] [phone] PROTEIN 01:24:43 NEGATIVE NEGATIVE N Final Performed by:[facility] [employer]Artem Magana (EN)[address] [place] [address] NITRITE 01:24:43 NEGATIVE NEGATIVE N Final Performed by:[facility] Magana (EN)[address] [place] [address] LEUKOCYTE ESTERASE 01:24:43 1+ NEGATIVE A Final Performed by:[facility] [employer] Magana (EN)[address] [place] [address] WBC 01:24:43 NONE SEEN /HPF < OR = 5 N Final Performed by:[employer] [employer] Magana (EN)[address] [place] [address] RBC 01:24:43 NONE SEEN /HPF < OR = 2 N Final Performed by:[employer] Magana (EN)[address] [place] [address] SQUAMOUS EPITHELIAL CELLS 01:24:43 6-10 /HPF < OR = 5 A Final Performed by:[facility] [employer] Magana (EN)[address] [place] [address] BACTERIA 01:24:43 FEW /HPF NONE SEEN A Final Performed by:[employer] Mag[facility] (EN)[address] [place] [address] HYALINE CAST 01:24:43 NONE SEEN /LPF NONE SEEN N Final Performed by:[employer] [employer] Mag[employer] (EN)[address] [place] [address] NOTE 01:24:43 SEE COMMENT Final This urine was analyzed for the presence of WBC, RBC, bacteria, casts, and other formed elements. Only those elements seen were reported. Performed by:[facility] [employer] Mag[facility] (EN)[address] [place] [address] Panel Description: URINALYSI S, COMPLETE W/REFLEX TO CULTURE Final COLOR 09:33:46 YELLOW YELLOW N Final Performed by:[facility]rik[facility]Ham Magana (EN)[address] [place] [address] APPEARANCE 09:33:46 CLEAR CLEAR N Final Performed by:Electrik[facility]Ham Magana (EN)[address] [place] [address] SPECIFIC GRAVITY 09:33:46 1.016 1.001-1.03 5 N Final Performed by:[facility]rik[facility]Ham Magana (EN)[address] [place] [address] PH 09:33:46 7.0 5.0-8.0 N Final Performed by:[facility]rik[facility]Ham Magana (EN)[address] [place] [address] GLUCOSE 09:33:46 NEGATIVE NEGATIVE N Final Performed by:Electrik[facility]Ham Magana (EN)[address] [place] [phone] BILIRUBIN 09:33:46 NEGATIVE NEGATIVE N Final Performed by:[facility]rik[facility]Ham Magana (EN)[address] [place] [phone] KETONES 09:33:46 NEGATIVE NEGATIVE N Final Performed by:Electrik[facility]Ham Magana (EN)[address] [place] [address] [phone] OCCULT BLOOD 09:33:46 NEGATIVE NEGATIVE N Final Performed by:ElectrikusHam Magana (EN)[address] [place] [phone] PROTEIN 09:33:46 NEGATIVE NEGATIVE N Final Performed by:Electrik[employer]Ham Magana (EN)[address] [place] [phone] NITRITE 09:33:46 NEGATIVE NEGATIVE N Final Performed by:[facility]rik[facility]Ham Magana (EN)[address] [place] [address] LEUKOCYTE ESTERASE 09:33:46 1+ NEGATIVE A Final Performed by:Electrik[facility]Ham Magana (EN)[address] [place] [phone] WBC 09:33:46 NONE SEEN /HPF < OR = 5 N Final Performed by:[facility]rik[facility]Ham Magana (EN)[address] [place] [phone] RBC 09:33:46 NONE SEEN /HPF < OR = 2 N Final Performed by:ElectrikusHam Magana (EN)[address] [place] [phone] SQUAMOUS EPITHELIAL CELLS 09:33:46 6-10 /HPF < OR = 5 A Final Performed by:[facility] (EN)[address] [place] [phone] BACTERIA 09:33:46 FEW /HPF NONE SEEN A Final Performed by:[facility]rik[facility]Ham Magana (EN)[address] [place] [address] HYALINE CAST 09:33:46 NONE SEEN /LPF NONE SEEN N Final Performed by:[facility] [employer] (EN)[address] [place] [address] NOTE 09:33:46 SEE COMMENT Final This urine was analyzed for the presence of WBC, RBC, bacteria, casts, and other formed elements. Only those elements seen were reported. Performed by:ElectrikusHam Magana (EN)[address] [place] [phone] Panel Description: URINALYSI S, COMPLETE W/REFLEX TO CULTURE Final COLOR 12:30:11 YELLOW YELLOW N Final Performed by:[facility] [employer] Mag[facility] (EN)[address] [place] [phone] APPEARANCE 12:30:11 CLEAR CLEAR N Final Performed by:[facility] [employer] Mag[facility] (EN)[address] [place] [phone] SPECIFIC GRAVITY 12:30:11 1.016 1.001-1.03 5 N Final Performed by:ElectrikusHam Magana (EN)[address] [place] [phone] PH 12:30:11 7.0 5.0-8.0 N Final Performed by:ElectrikusHam Magana (EN)[address] [place] [phone] GLUCOSE 12:30:11 NEGATIVE NEGATIVE N Final Performed by:ElectrikusHam Magana (EN)[address] [place] [address] BILIRUBIN 12:30:11 NEGATIVE NEGATIVE N Final Performed by:[facility] SolutionsArtem davison Izzy (EN)[address] [place] [phone] KETONES 12:30:11 NEGATIVE NEGATIVE N Final Performed by:[facility] SolutionsArtem davison [place] (EN)[address] [place] [address] [phone] OCCULT BLOOD 12:30:11 NEGATIVE NEGATIVE N Final Performed by:[employer] Magana (EN)[address] [place] [phone] PROTEIN 12:30:11 NEGATIVE NEGATIVE N Final Performed by:[facility] [employer]em Magana (EN)[address] [place] [address] [phone] NITRITE 12:30:11 NEGATIVE NEGATIVE N Final Performed by:[facility] [employer] Magana (EN)[address] [place] [address] [phone] LEUKOCYTE ESTERASE 12:30:11 1+ NEGATIVE A Final Performed by:[facility] SolutionsArtem davison [place] (EN)[address] [place] [address] [phone] WBC 12:30:11 NONE SEEN /HPF < OR = 5 N Final Performed by:[facility] [employer] Magana (EN)[address] [place] [address] [phone] RBC 12:30:11 NONE SEEN /HPF < OR = 2 N Final Performed by:[employer] [facility] (EN)[address] [place] [address] [phone] SQUAMOUS EPITHELIAL CELLS 12:30:11 6-10 /HPF < OR = 5 A Final Performed by:[employer] Mag[employer] (EN)[address] [place] [address] [phone] BACTERIA 12:30:11 FEW /HPF NONE SEEN A Final Performed by:[employer] [facility] (EN)[address] [place] [address] [phone] HYALINE CAST 12:30:11 NONE SEEN /LPF NONE SEEN N Final Performed by:[facility]rik[employer]Ham Magana (EN)[address] [place] [address] NOTE 12:30:11 SEE COMMENT Final This urine was analyzed for the presence of WBC, RBC, bacteria, casts, and other formed elements. Only those elements seen were reported. Performed by:ElectrikusHam Magana (EN)[address] [place] [phone] Panel Description: REFLEXIVE URINE CULTURE Amanda l REFLEXIVE URINE CULTURE 23:48:29 SEE COMMENT Final CULTURE INDICATED - RESULTS TO FOLLOWPerformed by:ElectrikusHam Magana (EN)[address] [place] [address] Panel Description: REFLEXIVE URINE CULTURE Amanda l REFLEXIVE URINE CULTURE 01:24:43 SEE COMMENT Final CULTURE INDICATED - RESULTS TO FOLLOWPerformed by:APU SolutionsAbelardoHam Magana (EN)[address] [place] [address] Panel Description: REFLEXIVE URINE CULTURE Amanda l REFLEXIVE URINE CULTURE 09:33:46 SEE COMMENT Final CULTURE INDICATED - RESULTS TO FOLLOWPerformed by:[facility] SolutionsAbelardoHam Magana (EN)[address] [place] [phone] Panel Description: REFLEXIVE URINE CULTURE Amanda l REFLEXIVE URINE CULTURE 12:30:11 SEE COMMENT Final CULTURE INDICATED - RESULTS TO FOLLOWPerformed by:[facility] SolutionsAbelardoHam Magana (EN)[address] [place] [phone] Panel Description: TSH W/REFLEX TO FT4 PendingInco mplete TSH W/REFLEX TO FT4 23:48:29 PendingIncomp lete Performed by:ElectrikusHam Magana (EN)[address] [place] [address] Panel Description: TSH W/REFLEX TO FT4 Final TSH W/REFLEX TO FT4 01:24:43 2.36 mIU/L 0.40-4.50 N Final Performed by:ElectrikusHam Magana (EN)[address] [place] [address] Panel Description: TSH W/REFLEX TO FT4 Final TSH W/REFLEX TO FT4 09:33:46 2.36 mIU/L 0.40-4.50 N Final Performed by:ElectrikusHam Magana (EN)[address] [place] [address] Panel Description: TSH W/REFLEX TO FT4 Final TSH W/REFLEX TO FT4 12:30:11 2.36 mIU/L 0.40-4.50 N Final Performed by:ElectrikusHam Magana (EN)[address] [place] [address] Advance Directives Directive Yes / No Effective Date File Name No Information Encounters Encounter Description Practice Location Reason(s) For Visit Diagnoses Date Provider Providers Copied on Encounter INTERMED EXAM,ESTAB PAT [facility], [address] [place], [address], tel: [phone] [facility] HPI (chief complaint) Body mass index [BMI] 25.0-25.9, adultDental decayHyperlip idemia, unspecifiedHy pertensionHyp othyroidism, unspecifiedHe althcare maintenanceDy suriaOther abnormal findings in urine 5 Resident Internal Med. . [facility], [address] [place], [address], [place] tel: [phone] [facility] No Information [address], [id number], [place]. tel:[phone] LIMITED EXAM,ESTAB PAT. [facility], [address] [place], [address], [place] tel: [phone] [facility] HPI (chief complaint) Acute otitis externa of right ear, unspecified typeAcute coughAcute tonsillitis, unspecified etiologyHyper tensionHypoth yroidism, unspecifiedHy perlipidemia, unspecifiedSy mptomatic varicose veins of both lower extremitiesDe ntal decayPrediabe tesHealthcare maintenance Fe 5 Resident Internal Med. . LIMITED EXAM,ESTAB PAT. [facility], [address] [place], [address], [place] tel:[phone] [facility] Cough (chief complaint)MOSES (chief complaint)hpi (chief complaint) Encounter for screening, unspecifiedAc jasiel otitis externa of right ear, unspecified typeAcute coughAcute tonsillitis, unspecified etiology 5 Enrico Saravia. [address] [place], [id number], [place]. tel:[phone] [facility], [address] [place], [address], [place] tel:[phone] [facility] No Information 5 Noe Lopez. [address] [place], [place], [id number], [place]. [phone] [facility], [address] [place], [address], [place] tel:[phone] [facility] No Information 4 Noe Lopez. [address] [place], [place], [id number], [place]. [phone] INTERMED EXAM,ESTAB [facility], [address] [place], [address], [place] tel:[phone] [facility] hypertension (chief complaint)hcm (chief complaint)HPI (chief complaint) HypertensionH ypothyroidism , unspecifiedHy perlipidemia, unspecifiedSy mptomatic varicose veins of both lower extremitiesDe ntal decayPrediabe tesHealthcare maintenanceAl lergic rhinitisImpac jessie cerumen, unspecified earAcute otitis externa of right ear, unspecified type 4 Resident Internal Med. . LIMITED EXAM,ESTAB [facility]. [facility], [address] [place], [address], [place] tel:[phone] [facility] HTN F/u (chief complaint) Body mass index [BMI] 28.0-28.9, adultHyperten sara 4 Resident Internal Med. . INTERMED EXAM,[facility], [address] [place], [address], tel:[phone] [facility] hypertension (chief complaint)thy roid (chief complaint)HCM (chief complaint)hpi (chief complaint) Hypothyroidis m, unspecifiedHy perlipidemia, unspecifiedEs sential (primary) hypertensionS ymptomatic varicose veins of both lower extremitiesHe althcare maintenanceBr east screeningOste oporosis screeningEnco unter for immunizationD ental decayPrediabe lui 4 Resident Internal Med. . [facility], [address] [place], [address], tel: [phone] [facility] Counseling, unspecified 3 Health Education. . [facility], [address] [place] [address], [address], tel:[phone] [facility] Counseling, unspecified 3 Health Education. . INTERMED EXAM,[facility], [address] [place], [address], tel:[phone] [facility] varicose veins (chief complaint) Symptomatic varicose veins of both lower extremitiesEs sential (primary) hypertensionH yperlipidemia , unspecifiedHy pothyroidism, unspecified 3 Resident Internal Med. . INTERMED EXAM, [facility], [address] [place], [address], tel:[phone] [facility] hypertension (chief complaint)hyp erlipidemia (chief complaint)Thy roid problems (chief complaint) Healthcare maintenanceHy pothyroidism, unspecifiedHy perlipidemia, unspecifiedHy pertensionBod y mass index [BMI] 28.0-28.9, adultImmuniza tion not carried out because of patient refusalEncoun ter for immunizationS easonal allergies 3 Resident Internal Med. . [facility], [address] [place] [address], [address], tel:[phone] [facility] No Information 3 [facility]. [address] [place], [address], [place]. tel:[phone] Psychotherap y, 30 Min With Patient And Or Family M [facility], [address] [place], [address], [place] tel:[phone] [facility] Adjustment disorder with mixed anxiety and depressed mood 3 Fredrick Suzette. [address] [place], [id number], [place]. tel:[phone] Psychotherap y, 30 Min With Patient And Or Family M [facility], [address] [place], [address], [place] tel:[phone] [facility] Adjustment disorder with mixed anxiety and depressed mood 3 Fredrick Suzette. [address] [place], [id number], [place]. tel:[phone] [facility], [address] [place], [address], [place] tel:[phone] [facility] No Information 2 Management Case. [address] [place], [id number], [place]. tel:[phone] Psychotherap y, 30 Min With Patient And Or Family M [facility], [address] [place], [address], [place] tel:[phone] [facility] Adjustment disorder with anxiety 2 Fredrick Suzette. [address], [id number], [place]. tel:[phone] Psychotherap y, 45 Min With Patient And Or Family M [facility], [address] [place], [address], [place] tel:[phone] [facility] Hospital Adjustment disorder with mixed anxiety and depressed mood 2 Fredrick Suzette. [address] [place], [id number], [place]. tel:[phone] Psychotherap y, 45 Min With Patient And Or Family M [facility], [address] [place], [address], [place] tel: [phone] [facility] Adjustment disorder with mixed anxiety and depressed mood Oct-2 2 Fredrick Suzette. [address], [id number], [place]. [phone] INTERMED EXAM,ESTAB PAT [facility], [address] [place], [address], [place] tel: [phone] [facility] Eye problems (chief complaint)Hyp othyroidism (chief complaint)HCM (chief complaint) Immunization not carried out because of patient refusalHypoth yroidism, unspecifiedBl epharitis of upper eyelids of both eyes, unspecified typeHypertens ionHyperlipid emia, unspecifiedAl lergic conjunctiviti s, bilateralPain of right eyeEncounter for immunization Jan- 2 Resident MED/PED. . Psychotherap y, 60 Min With Patient And Or Family M [facility], [address] [place], [address], [place] tel: [phone] [facility] Adjustment disorder with mixed anxiety and depressed mood Jan- 2 Fredrick Suzette. [address] [place], [place], [id number], [place]. tel:[phone] Psychotherap y, 60 Min With Patient And Or Family M [facility], [address] [place], [address], [place] tel: [phone] [facility] Adjustment disorder with mixed anxiety and depressed mood Oct-0 2 Fredrick Suzette. [address] [facility] [id number], [place]. tel:[phone] Psychotherap y, 60 Min With Patient And Or Family M [facility], [address] [place], [address], [place] tel: [phone] [facility] Adjustment disorder with mixed anxiety and depressed mood Sep-3 2 Fredrick Suzette. [address] [place], [place], [id number], [place]. [phone] Psychotherap y, 45 Min With Patient And Or Family M [facility], [address] [place], [address], [place] tel: [phone] [facility] Adjustment disorder with mixed anxiety and depressed mood Sep-2 2 Fredrick Suzette. [address] [place], [place], [id number], [place]. tel:[phone] Psychotherap y, 60 Min With Patient And Or Family M [facility], [address] [place], [address], [place] tel: [phone] [facility] Adjustment disorder with mixed anxiety and depressed mood Sep-1 2 Fredrick Suzette. [address] [place], [place], [id number], [place]. tel:[phone] Psychotherap y, 60 Min With Patient And Or Family M [facility], [address] [place], [address], [place] tel: [phone] [facility] Adjustment disorder with mixed anxiety and depressed mood Sep-0 2 Fredrick Suzette. [address] [place], [place], [id number], [place]. [phone] [facility], [address] [place], [address], [place] tel:[phone] [facility] Blepharitis of upper eyelids of both eyes, unspecified typeSevere myopia, rightMyopia, leftAstigmati sm of both eyes, unspecified typePresbyopi a Sep-0 2 Jose E Silva. [address] [place], [place], [id number], [place]. tel:[phone] Psychotherap y, 60 Min With Patient And Or Family M [facility], [address] [place], [address], [place] tel:[phone] [facility] Adjustment disorder with mixed anxiety and depressed mood Sep-0 2 Fredrick Suzette. [address] [place], [id number], [place]. tel:[phone] Psychotherap y, 60 Min With Patient And Or Family M [facility], [address] [place], [address], [place] tel: [phone] [facility] depression (chief complaint) Adjustment disorder with mixed anxiety and depressed mood 2 Fredrick Suzette. [address] [place], [id number], [place]. tel:[phone] [facility], [address] [place], [address], [place] tel:[phone] [facility] No Information 2 Management Case. [address] [place], [place], [id number], [place]. tel:[phone] [facility], [address] [place], [address], [place] tel:[phone] [facility] No Information 2 Management Case. [address] [place], [place], [id number], [place]. tel:[phone] [facility], [address] [place], [address], [place] tel:[phone] [facility] No Information 2 Management Case. [address] [place], [place], [id number], [place]. tel:[phone] Psychotherap y, 30 Min With Patient And Or Family M [facility], [address] [place], [address], [place] tel: [phone] [facility] Adjustment disorder with mixed anxiety and depressed mood 2 [facility]. [address] [place], [place], [id number], [place]. tel:[phone] LIMITED EXAM,ESTAB PAT. [facility], [address] [place], [address], [place] tel:[phone] [facility] recurrent vertigo's (chief complaint)Vag inal itching (chief complaint)HCM (chief complaint) Encounter for screening mammogram for cancer of breastHypothy roidism, unspecifiedPr ediabetesAdju stment disorder with mixed anxiety and depressed moodVaginal irritation 2 Nathan Mandie. [address] [place], [id number], [place]. tel:[phone] Referring Provider: Mandie Evans, [address] [place], [address] . tel:[phone] Psychotherap y, 30 Min With Patient And Or Family [facility], [address] [place], [address], [place] tel:[phone] [facility] Adjustment disorder with mixed anxiety and depressed mood 2 Fredrick Bradford. [address] [place], [place], [id number], [place]. tel:[phone] INTERMED EXAM,[facility], [address] [place], [address], [place] tel: [phone] [facility] Thyroid problems (chief complaint)Ear Pain (chief complaint)HCM (chief complaint) Immunization not carried out because of patient refusalEncntr screen for dis of the bld/bld-form org/immun mechnsmHypoth yroidism, unspecifiedEa r pain, bilateralBrea st cancer screening by mammogramAmbl yopia of left eyeImpacted cerumen, unspecified ear 2 Lon Parker. [address] [place], [id number], [place]. tel:[phone] INTERMED EXAM,[facility], [address] [place], [address], [place] tel:[phone] [facility] hypothyroidis m (chief complaint)med ication (chief complaint)Pre ventive exam (chief complaint)HCM (chief complaint)col on cancer screening (chief complaint) Encounter for screening for malignant neoplasm of colonGastroes ophageal reflux disease, unspecified whether esophagitis presentHypoth yroidism, unspecifiedMe casimiro impairmentAbn ormal glucoseH/O: varicose veinsStressEn counter for immunizationE ncounter for screening mammogram for cancer of breast 2 Loren Bhatti. [address] [place], [id number], [place]. tel:[phone] [facility], [address] [place], [address], [place] tel:[phone] [facility] Contact w and exposure to oth viral communicable diseases 2 Jono Montez. [address] [place], [place], [place], [id number], [place]. tel:[phone] LIMITED EXAM,ESTAB PAT. [facility], [address] [place], [address], [place] tel:[phone] [facility] Dry eyes (chief complaint) Viral conjunctiviti sSore throat 2 Resident Internal Med. . INTERMED EXAM,ESTAB PAT [facility], [address] [place], [address], [place] tel: [phone] [facility] colon cancer screening (chief complaint)HCM (chief complaint)Rig ht upper quadrant (chief complaint)Dys uria (chief complaint) Body mass index (BMI) 29.0-29.9, adultEncounte r for screening for cancer of colonRoutine health maintenanceOt her abnormal findings in urineRight upper quadrant abdominal pain Sep-0 1 Resident Internal Med. . [facility], [address] [place], [address], [place] tel: [phone] [facility] No Information 1 [facility]. [address] [place], [address], [place]. tel:[phone] LIMITED EXAM,ESTAB PAT. [facility], [address] [place], [address], [place] tel:[phone] [facility] cough (chief complaint) Gastroesophag eal reflux disease, unspecified whether esophagitis presentCough 1 Resident Internal Med. . BRIEF EXAM, ESTAB PAT. [facility], [address] [place], [address], [place] tel:[phone] [facility] Cough (chief complaint) Cough 1 Sidra Hahn. [address] [place] [address] [address] [place], [place], [id number], [place]. tel:[phone] INTERMED EXAM,ESTAB [facility], [address] [place], [address], [place] tel: [phone] [facility] Cough (chief complaint) CoughHypothyr oidism, unspecified 1 Resident MED/PED. . LIMITED EXAM,ESTAB [facility]. [facility], [address] [place], [address], [place] tel: [phone] [facility] Cough 1 Resident MED/PED. . [facility], [address] [place], [address], [place] tel: [phone] [facility] Counseling, unspecified 0 Health Education. . LIMITED EXAM,ESTAB [facility]. [facility], [address] [place], [address], [place] tel: [phone] [facility] hypertension (chief complaint)Thy roid problems (chief complaint)hyp erlipidemia (chief complaint)col on cancer screening (chief complaint)HCM (chief complaint)All ergies (chief complaint) Encounter for screening for cancer of colonImmuniza tion not carried out because of patient refusalHypert ensionPrediab etesHypothyro idism, unspecifiedHy perlipidemia, unspecifiedNo dule of skin of head 3 0 Shannan Dougherty. [address] [place] [address], [id number], [place]. tel:[phone] [facility], [address] [place], [address], [place] tel:[phone] [facility] No Information 0 Shannan Dougherty. [address] [place] [place], [id number], [place]. tel:[phone] MINIMAL EXAM,ESTAB PAT. [facility], [address] [place], [address], [place] tel: [phone] [facility] immunization (chief complaint) Encounter for immunization 0 Still Operator Batch Or Continuous. . INTERMED EXAM,ESTAB PAT [facility], [address] [place] [address], [address], [place] tel: [phone] [facility] hypertension (chief complaint)Uri nary symptoms (chief complaint) HypertensionH ypothyroidism , unspecifiedHe althcare maintenancePr ediabetesHype rlipidemia, unspecifiedDy suriaOther specified counseling 0 Stephen Forbes. [address] [place], [place], [id number], [place]. [phone] LIMITED EXAM,ESTAB PAT. [facility], [address] [place], [address], [place] tel: [phone] [facility] hypertension (chief complaint)Thy roid (chief complaint)lef t axillary pain (chief complaint) Breast pain, leftHypothyro idism, unspecifiedHy pertension 9 Shannan Dougherty. [address] [place], [id number], [place]. tel:[phone] [facility], [address] [place] [address], [address], [place] tel: [phone] [facility] No Information 9 Adelia Bhatit. [address], [place], [place], [id number], [place]. tel:[phone] [facility], [address] [place] [address], [address], [place] tel: [phone] [facility] Hypothyroidis m, unspecified 0 9 Adelia Bhatti. [address] [place], [place], [id number], [place]. tel:[phone] [facility], [address] [place] [address], [address], [place] tel:[phone] [facility] Dental Encounter for dental exam and cleaning w abnormal findings 9 Annalise Gay. [address] [place], [place], [id number], [place]. tel:[phone] [facility], [address] [place], [address], [place] tel: [phone] [facility] Hypothyroidis m, unspecified 0 9 Shannan Dougherty. [address] [place], [place], [id number], [place]. tel:[phone] INTERMED EXAM,[facility], [address] [place] [address], [address], [place] tel: [phone] [facility] hypertension (chief complaint)Thy roid problems (chief complaint)Mus culoskeletal pain (chief complaint) Encounter for screening for cancer of colonHypothyr oidism, unspecifiedPr ediabetesHype rtensionSciat ica of right side 9 Shannan Dougherty. [address] [place], [id number], [place]. tel:[phone] [facility], [address] [place] [address], [address], [place] tel: [phone] [facility] No Information 9 Shannan Dougherty. [address] [place], [id number], [place]. tel:[phone] [facility], [address] [place] [address], [address], [place] tel:[phone] [facility] Hypothyroidis m, unspecified 0 2 9 Sebas Cuevas. [address] [place], [place], [id number], [place]. tel:[phone] [facility], [address] [place], [address], [place] tel: [phone] [facility] Hypothyroidis m, unspecified Shannan Jordan [address] [place], [place], [id number], [place]. tel:[phone] LIMITED EXAM,ESTAB PAT. [facility], [address] [place], [address], [place] tel: [phone] [facility] hypertension (chief complaint)hyp erlipidemia (chief complaint)col on cancer screening (chief complaint) Encounter for screening for cancer of colonHyperten sionHypothyro idism, unspecifiedPr ediabetesHist ory of uterine fibroidAt risk for dental problems Shannan Jordan [address] [place], [place], [id number], [place]. tel:[phone] LIMITED EXAM,ESTAB PAT. [facility], [address] [place], [address], [place] tel: [phone] [facility] Follow up on lab test(s) (chief complaint)Col on Cancer Screening (chief complaint) Body mass index (BMI) 27.0-27.9, adultEncounte r for screening for cancer of colonHypothyr oidism, unspecifiedHy pertensionHis tory of uterine fibroid Shannan Jordan [address] [place] [address], [id number], [place]. tel:[phone] [facility], [address] [place], [address], [place] tel: [phone] [facility] No Information [facility]. [address] [place], [address], [place]. tel:[phone] LIMITED EXAM,ESTAB PAT. 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 [address] [place], [id number], [place]. tel:[phone] INTERMED EXAM,ESTAB [facility], [address] [place], [address], [place] tel: [phone] [facility] back pain (chief complaint)see standing orders (chief complaint) HypertensionH ypothyroidism , unspecifiedHy perlipidemia, unspecifiedCe rvical massOther abnormal findings in urineEncounte r for screening for cancer of colonAcute right-sided thoracic back pain 8 Stephen Forbes. [address] [place], [id number], [place]. tel:[phone] LIMITED EXAM,ESTAB PAT. [facility], [address] [place], [address], [place] tel: [phone] [facility] Sore throat (chief complaint) Acute pharyngitis, unspecifiedHy pertensionHyp othyroidism, unspecifiedHy perlipidemia, unspecified 8 Resident Internal Med. . LIMITED EXAM,ESTAB [facility]. [facility], [address] [place], [address], [place] tel: [phone] [facility] Follow up on lab test(s) (chief complaint) Cervical mass 8 Adelia Bhatti. [address], [place], [place], [id number], [place]. tel:[phone] LIMITED EXAM,ESTAB PAT. [facility], [address] [place], [address], [place] tel: [phone] [facility] preventive exam (chief complaint)Fol low up on lab test(s) (chief complaint) Post-menopaus al bleeding 7 Adelia Bhatti. [address] [place], [place], [id number], [place]. tel:[phone] LIMITED EXAM,ESTAB PAT. [facility], [address] [place], [address], [place] tel:[phone] [facility] hematuria (chief complaint)HCM (chief complaint) Post-menopaus al bleedingOther abnormal findings in urineAllergic rhinitis, unspecified allergic rhinitis trigger, unspecified rhinitis seasonalityHy pertensionHyp othyroidism, unspecified 7 Brittatwyla Mandie. [address] [place], [id number], [place]. tel:[phone] LIMITED EXAM,ESTAB PAT. [facility], [address] [place], [address], [place] tel:[phone] [facility] Thyroid problems (chief complaint)hyp ertension (chief complaint)hyp erlipidemia (chief complaint)Med refills (chief complaint) HypertensionH ypothyroidism , unspecifiedHy perlipidemia, unspecifiedAl lergic rhinitis, unspecified allergic rhinitis trigger, unspecified rhinitis seasonalityPr ediabetes 7 Shannan Dougherty. [address], [place], [id number], [place]. tel:[phone] LIMITED EXAM,ESTAB PAT. [facility], [address] [place], [address], [place] tel:[phone] [facility] Cough (chief complaint) Viral upper respiratory tract infection 7 Sidra Hahn. [address] [place] [address], [id number], [place]. tel:[phone] LIMITED EXAM,ESTAB PAT. [facility], [address] [place], [address], [place] tel:[phone] [facility] Burning on urination (chief complaint) DysuriaHyperl ipidemia, unspecifiedHy pothyroidism, unspecifiedHy pertension 0 7 Stephen Forbes. [address] [place], [address], [place]. tel:[phone] LIMITED EXAM,ESTAB PAT. [facility], [address] [place], [address], tel: [phone] [facility] hypertension (chief complaint)hyp erlipidemia (chief complaint)hyp othyroidism (chief complaint)All ergies (chief complaint)Diz ziness (chief complaint)dep ressed mood (chief complaint) Healthcare maintenanceEs sential (primary) hypertensionH yperlipidemia , unspecifiedAl lergic rhinitis, unspecified allergic rhinitis trigger, unspecified rhinitis seasonalityHy pothyroidism, unspecifiedAd justment disorder with depressed mood 7 Resident Internal Med. . LIMITED EXAM,ESTAB PAT. [facility], [address] [place], [address], tel: [phone] [facility] F/U TSH (chief complaint) Essential (primary) hypertensionH ypothyroidism , unspecifiedHe althcare maintenance 7 Resident Internal Med. . LIMITED EXAM,ESTAB PAT. [facility], [address] [place], [address], tel: [phone] [facility] depression (chief complaint)Thy roid problems (chief complaint)All ergies (chief complaint) Hypothyroidis m, unspecifiedAl lergic rhinitisPredi abetesHyperli pidemia, unspecifiedDe ntal cariesEssenti al (primary) hypertension 7 Resident Internal Med. . LIMITED EXAM,ESTAB PAT. [facility], [address] [place], [address], tel: [phone] [facility] Cough (chief complaint)Dep ression (chief complaint) Essential (primary) hypertensionA llergic rhinitis, unspecified allergic rhinitis trigger, unspecified rhinitis seasonalityPr ediabetesBere avementHypoth yroidism, unspecifiedHe althcare maintenance 7 Resident Internal Med. . [facility], [address] [place] [address], [address], tel: [phone] [facility] No Information 7 [facility]. [address] [place], [address], [place]. [phone] INTERMED EXAM,ESTAB PAT [facility], [address] [place], [address], [place] tel:[phone] [facility] Cough (chief complaint) Allergic rhinitisEssen tial (primary) hypertensionH ypothyroidism , unspecifiedIm paired fasting glucoseEncoun ter for screening for cancer of colonOverweig htHyperlipide stuart, unspecifiedVi ral URIOther viral agents as the cause of diseases classified elsewhereHeal thcare maintenance 7 Resident Internal Med. . [facility], [address] [place], [address], [place] tel:[phone] [facility] No Information 7 [facility]. [address] [place], [address], [place]. [phone] [facility], [address] [place], [address], [place] tel:[phone] [facility] No Information 6 [facility]. [address] [place], [address], [place]. [phone] LIMITED EXAM,ESTAB PAT. [facility], [address] [place], [address], [place] tel:[phone] [facility] hypertension (chief complaint)RX (chief complaint)TB Assesment (chief complaint) Hypothyroidis m, unspecifiedEs sential (primary) hypertensionA llergic rhinitis 6 Shannan Dougherty. [address] [place] [address], [id number], [place]. tel:[phone] LIMITED EXAM,ESTAB PAT. [facility], [address] [place], [address], [place] tel:[phone] [facility] Musculoskelet al pain (chief complaint)hyp ertension (chief complaint)Med refills (chief complaint) Impingement syndrome of left shoulderHypot hyroidism, unspecifiedIm paired fasting glucose 6 Shannan Dougherty. [address] [place], [place], [id number], [place]. tel:[phone] LIMITED EXAM,ESTAB PAT. 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 tel:[phone] [facility], [address] [place] [address], [address], [place] tel:[phone] [facility] No Information 5 Shannan Jordan [address] [place], [place], [id number], [place]. tel:[phone] INTERMED EXAM,ESTAB PAT [facility], [address] [place] [address], [address], [place] tel: [phone] [facility] hypertension (chief complaint)Thy roid problems (chief complaint)All ergies (chief complaint)Wan ts flu shot (chief complaint) Encntr screen for dis of the bld/bld-form org/immun mechnsmEssent ial (primary) hypertensionH ypothyroidism , unspecifiedEn counter for screening mammogram for cancer of breastEncount er for screening for cancer of colonImpaired fasting glucose 5 Shannan Jordan [address] [place], [place], [id number], [place]. [phone] [facility], [address] [place] [address], [address], [place] tel: [phone] [facility] No Information 5 Shannan Dougherty. [address], [id number], [place]. tel:[phone] [facility], [address] [place], [address], [place] tel: [phone] [facility] No Information 5 [facility]. [address] [place], [address], [place]. tel:[phone] LIMITED EXAM,ESTAB PAT. [facility], [address] [place], [address], [place] tel:[phone] [facility] Hypothyroidis m (chief complaint)hyp ertension (chief complaint)All ergies (chief complaint) No Information 5 Resident Internal Med. . [facility], [address] [place], [address], [place] tel:[phone] [facility] Hypothyroidis m 5 Lamp Magy. [address], [place], [id number], [place]. tel:[phone] LIMITED EXAM,ESTAB PAT. [facility], [address] [place], [address], [place] tel:[phone] [facility] hypertension (chief complaint)Hyp othyroidism (chief complaint) Hypertension, BenignHypothy roidismOther and unspecified hyperlipidemi aIMPAIRED FASTING GLUCOSE 4 Shannan Dougherty. [address] [place], [id number], [place]. tel:[phone] [facility], [address] [place], [address], [place] tel:[phone] [facility] hypertension (chief complaint)Thy roid problems (chief complaint) No Information 3 0 4 Resident Internal Med. . [facility], [address] [place], [address], [place] tel:[phone] [facility] No Information 4 No Information LIMITED EXAM,ESTAB PAT. [facility], [address] [place], [address], [place] tel:[phone] [facility] hypertension (chief complaint)hyp othyroidism (chief complaint)war ts (chief complaint) Viral warts, unspecifiedHy pothyroidismH ypertension, Benign 4 Shannan Jordan [address] [place] [address], [id number], [place]. tel:[phone] LIMITED EXAM,ESTAB PAT. [facility], [address] [place], [address], [place] tel:[phone] [facility] warts (chief complaint) Viral warts, unspecifiedHy pertension, Benign 4 Shannan Jordan [address] [place], [place], [id number], [place]. tel:[phone] LIMITED EXAM,ESTAB PAT. [facility], [address] [place], [address], [place] tel:[phone] [facility] thyroid problems (chief complaint)med refills (chief complaint)fol low up on lab test(s) (chief complaint) Hypertension, BenignHypothy roidismViral warts, unspecified 4 Shannan Jordan [address] [place], [place], [id number], [place]. tel:[phone] LIMITED EXAM,ESTAB PAT. [facility], [address] [place], [address], [place] tel:[phone] [facility] thyroid problems (chief complaint)all ergies (chief complaint) Hypothyroidis m 4 Shannan Jordan [address] [place] [address], [id number], [place]. tel:[phone] LIMITED EXAM,ESTAB PAT. [facility], [address] [place], [address], [place] tel:[phone] [facility] thyroid problems (chief complaint) OverweightHyp othyroidismIM PAIRED FASTING GLUCOSEHypert ension, BenignOther and unspecified hyperlipidemi a 3 Shannan Dougherty. [address] [place], [place], [id number], [place]. tel:[phone] [facility], [address] [place], [address], [place] tel: [phone] [facility] No Information 3 [facility]. [address] [place], [address], [place]. tel:[phone] [facility], [address] [place], [address], [place] tel: [phone] [facility] No Information 2 [facility]. [address] [place], [address], [place]. tel:[phone] INTERMED EXAM,ESTAB PAT [facility], [address] [place], [address], [place] tel: [phone] [facility] No Information 2 No Information LIMITED EXAM,ESTAB PAT. [facility], [address] [place], [address], [place] tel: [phone] [facility] No Information 1 Resident Internal Med. . LIMITED EXAM,ESTAB PAT. [facility], [address] [place], [address], [place] tel: [phone] [facility] No Information 1 Resident Internal Med. . LIMITED EXAM,ESTAB PAT. [facility], [address] [place], [address], [place] tel:[phone] [facility] No Information 1 Resident Family Medicine. . LIMITED EXAM,ESTAB PAT. [facility], [address] [place], [address], [place] tel:[phone] [facility] No Information 1 Resident Internal Med. . [facility], [address], [place], [address], [place] tel:[phone] TRANSCRIBED No Information 0 No Information Family [...] administered Note: Imported from [facility]. From Provider: [facility]-. Injected by: AUSTEN BOB MA. ; Source: Source Unspecified Influenza administered Note: Imported from [facility]. From Provider: [facility]-. Injected by: DOMINGA GOMEZ MA. ; Source: Source Unspecified Influenza administered Note: Imported from [facility]. From Provider: [facility]-. Injected by: ADELAIDA CHIANG RN. ; Source: Source Unspecified Tdap administered Note: Imported from [facility]. From Provider: [facility]. Injected by: Sulema Stearns MA. ; Source: Source Unspecified Influenza administered Note: Imported from [facility]. From Provider: [facility]. Injected by: Nicol Gomez MA. ; Source: Source Unspecified Novel [id number], all formulations administered Note: Imported from [facility]. From Provider: [facility]. Injected by: Nicol Gomez MA. ; Source: Source Unspecified Novel Vssfvegof-[id number], all formulations administered Note: Imported from [facility]. From Provider: [facility]. Injected by: Nicol Gomez MA. ; Source: Source Unspecified Payers Payer name Insurance type Covered alliance party ID Authoriza tion(s) Medicare PPS MB [id number] BS Promise Medicare Secondary CI [id number] Medicare PPS MB [id number] BS Promise Medicare Secondary CI [id number] Medicare PPS MB [id number] BS Promise Medicare Secondary CI [id number] HCLA BS Promise Medi-Arleen MC [id number] MediCal Managed Care Interim Rate MC [id number] HCLA BS Promise Medi-Arleen MC [id number] HCLA LA Care Medi-Arleen CI [id number] Medi[employer] Managed Care Interim Rate MC [id number] Social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
--- OUTSIDE RECORDS SUMMARY | 2024-08-29 12:50 | XMS_ITS | Encounter Summary ---
Author Organization [facility] Address [address] [place] [address] Care Team Providers Care Legal Executive Name Role Phone Curt Falk MD Primary Care Provider + [phone] Reason for Visit * Auth/Cert (Routine) Specialty Diagnoses / Procedures Referred By Contac t Referred To Contact Diagnoses Overactive bladder Overactive bladder Procedures AL INS/REPL CONRAD/SACRAL/GASTRIC NSTIM PG/REC REQ POCKET CREATION/CONN AL ANALYSIS IMPLANTED NEUROSTIM PULSE GENERATOR SYSTEM COMPLEX/PROGRAMING SACRAL NEUROMODULATOR STAGE 2 SACRAL NEUROMODULATOR STAGE 2 [place] [address] [place] [id number] Phone: tel: fax: [facility] Main OR [address] [place] [address] Phone: tel: Referral ID Status Reason Start Date Expiration Date Visits Re quested Visits Authorized [id number] 1 1 Encounter Details Date Type Department Care Team (Late st Contact Info) Description 08/27/2024 11:55 AM EDT Anesthesia Event [facility] Main OR [address] [place] [address] Leeann Anders MD [address] [place] [id number] Anesthesia Record Procedure Summary Procedure Name Responsible Anesthesiologist Anesthesia Start Time Anesthesia Stop Time SACRAL NEUROMODULATOR STAGE 2 (Back) Leeann Anders MD 08/27/24 1155 08/27/24 1236 Events Date Time Event Comment 08/27/2024 1153 1155 In Room 1155 An Start 1155 An Start Data The patient wa s reevaluated immediately before moderate or deep sedation use and before anesthesia induction. 1204 Anesthesia Ready 1210 Proc Start 1222 an stop data 1225 Proc Fin 1225 Out of Room 1236 Handoff to RN I completed my handoff to the receiving nurse during which we: 1. Identified the patient 2. Identified the responsible provider 3. Reviewed the pertinent medical history 4. Discussed the surgical course 5. Reviewed intra-op anesthesia management and issues during anesthesia 6. Set expectations for post-procedure period 7. Allowed opportunity for questions and acknowledgement of understanding. 1236 An Stop Meds Name Total fentaNYL 0.05 mg/mL 100 mcg midazolam 1 mg/mL 2 mg ondansetron 2 mg/mL 4 mg propofol (DIPRIVAN) infusion 10 mg/mL 10 0 mg gentamicin (GARAMYCIN) 120 mg/100 mL IVP B (premix) 120 mg 120 mg ceFAZolin (ANCEF) IV syringe 2 g/20 mL 2 g lactated Ringer's infusion 300 mL * Agents Name O2 * Blood No blood administrations on file. Lines, Drains, and Airways Type Details Placement Removal Wound Incision; 08/15/24; Back; Lower, Medial; 2 inc, and 1 small 08/15/24 0000 by Carla Rey RN Peripheral IV Placement Date: 08/27/24; Placement Time: 1019; Catheter Size: 20 G; Orientation: Right; Location: Antecubital; Site Prep: Chlorhexidine; Insertion Attempts: 1; Patient Tolerance: Tolerated well; Removal Date: 08/27/24; Removal Time: 1325 08/27/24 1019 by Brittany Mahan RN 08/27/24 1325 by Caridad Engle RN documented in this encounter Social History Tobacco [...] PM EDT documented as of this encounter Progress Notes * Fanta Galeano CRNA - 08/27/2024 12:36 PM EDT Patient: Celia Horne Procedure Summary Date: 08/27/24 Room / Location: [facility] / [facility] Anesthesia Start: 1155 Anesthesia Stop: 1236 Procedure: SACRAL NEUROMODULATOR STAGE 2 (Back) Diagnosis: Overactive bladder (Overactive bladder) Surgeons: Quang Hurd MD Responsible Provider: Leeann Anders MD Anesthesia Type: MAC ASA Status: 3 Anesthesia Plan: MAC Last Vitals: Vitals Value Taken Time BP 146/74 08/27/24 1229 Temp 36.3 ??C (97.4 ??F) 08/27/24 1229 Pulse 82 08/27/24 1229 Resp 18 08/27/24 1229 SpO2 98 % 08/27/24 1229 Pain Score: 0 - No pain Anesthesia Post Evaluation Patient location during evaluation: PACU Patient participation: complete - patient participated Level of consciousness: awake Pain score: 0 Pain management: adequate Airway patency: patent Anesthetic complications: no Cardiovascular status: acceptable Respiratory status: acceptable Hydration status: acceptable Nausea: No Vomiting: No There were no known notable events for this encounter. * Leeann Anders MD - 08/27/2024 10:05 AM EDT 69 y.o. female scheduled for [AL INS/REPL CONRAD/SACRAL/GASTRIC NSTIM PG/REC REQ POCKET CRE*] Ht Readings from Last 1 Encounters: 08/13/24 1.499 m (59 ) Wt Readings from Last 1 Encounters: 08/13/24 93 kg (205 lb) Body mass index is 41.4 kg/m??. Past Medical History: Diagnosis Date KAMILA positive DX:KAMILA positive Anxiety Arthralgia DX:Arthralgia Asthma DX:Asthma CHF (congestive heart failure) (CMS/HCC V24, CMS/HCC V28) Chronic interstitial cystitis DX:Chronic interstitial cystitis Chronic kidney disease Depression DX:Depression Foot pain, bilateral DX:Foot pain, bilateral GERD (gastroesophageal reflux disease) DX:GERD (gastroesophageal reflux disease) Hyperlipidemia Hypertension Insomnia DX:Insomnia Osteoarthritis DX:Osteoarthritis; COMMENT: OF RIGHT KNEE Shortness of breath Urticaria DX:Urticaria Vitamin D deficiency DX:Vitamin D deficiency Past Surgical History: Procedure Laterality Date APPENDECTOMY CYSTOSCOPY CYSTOSCOPY 01/2024 WITH BOTOX HYSTERECTOMY KNEE ARTHROPLASTY Right OTHER SURGICAL HISTORY PROCEDURE: HISTORY OTHER; COMMENT: COLONOSCOPY OTHER SURGICAL HISTORY PROCEDURE: HISTORY OTHER; COMMENT: TOOTH EXTRACTION OTHER SURGICAL HISTORY Right 09/22/2021 PROCEDURE: HISTORY OTHER; COMMENT: TOTAL KNEE REPLACEMENT OTHER SURGICAL HISTORY PROCEDURE: HISTORY OTHER; COMMENT: CYSTOSCOPY Denies anesthesia complications Allergies Allergen Reactions Penicillins Rash No current facility-administered medications on file prior to encounter. Current Outpatient Medications on File Prior to Encounter Medication Sig Dispense Refill acetaminophen (TYLENOL) 325 mg tablet Take 2 tablets (650 mg total) by mouth every 6 (six) hours ifneeded. albuterol HFA (PROAIR HFA ; PROVENTIL HFA ; VENTOLIN HFA) 90 mcg/actuation inhaler Inhale 2 puffs by mouth every 4 (four) hours if needed. atorvastatin (LIPITOR) 10 mg tablet Take 1 tablet (10 mg total) by mouth at bedtime. benzonatate (TESSALON) 200 mg capsule Take 1 capsule (200 mg total) by mouth 3 (three) times a day if needed. ezetimibe (ZETIA) 10 mg tablet Take 1 tablet (10 mg total) by mouth 1 (one) time each day. ibuprofen (ADVIL,MOTRIN) 600 mg tablet Take 1 tablet (600 mg total) by mouth every 8 (eight) hours if needed for mild pain. LORazepam (ATIVAN) 0.5 mg tablet Take 1 tablet (0.5 mg total) by mouth every 8 (eight) hours if needed. montelukast (SINGULAIR) 10 mg tablet Take 1 tablet (10 mg total) by mouth at bedtime. omeprazole (PriLOSEC) [address] capsule Take [...] (100 mg total) by mouth at bedtime. buprenorphine HCL [address] 150 mcg into mouth between cheek and gum 2 (two) times a day. Max Daily Amount: 300 mcg dupilumab (DUPIXENT) 300 mg/2 mL pen Inject under the skin. escitalopram (LEXAPRO) 20 mg tablet Take 1 tablet (20 mg total) by mouth 1 (one) time each day. fluticasone furoate-vilanteroL (BREO ELLIPTA) 200-25 mcg/dose inhaler Inhale 1 puff by mouth 1 (one) time each day if needed. loratadine (CLARITIN) 10 mg tablet Take 1 tablet (10 mg total) by mouth 1 (one) time each day. naloxone (NARCAN) 4 mg/actuation nasal spray KIT (Take home med ONLY) Administer 1 spray (4 mg total) into affected nostril(s) See administration instructions. EVERY 3MIN PRN FOR OPOID OD zolpidem (AMBIEN) 5 mg tablet Take by mouth at bedtime as needed for sleep. [DISCONTINUED] clonazePAM (KlonoPIN) 1 mg tablet Take 0.5 mg by mouth 3 (three) times a day. Max Daily Amount: 1.5 mg (Patient not taking: Reported on 07/24/2024) Current In-hospital Medications gentamicin, 120 mg, intravenous, Once sodium chloride, 10 mL, intravenous, BID lactated Ringer's, 75 mL/hr PRN medications: Insert peripheral IV AND Maintain IV access AND Saline lock IV AND sodium chloride AND sodium chloride Social History Tobacco Use Smoking status: Never Smokeless tobacco: Former Substance Use Topics Alcohol use: Never Drug use: Never Is the patient a current smoker (e.g. cigarette, cigar, pip, e-cigarette, or mariajuana)? Yes [] No[] Patient previously instructed to abstain from smoking on the day of procedure? Yes [] No[] Patient smoked on the day of procedure? Yes [] No[] ASPIRE smoking VBR: [] Not interested in quitting [] Interested in quitting- referred to treatment [] Interested in quitting - treatment provided Visit Vitals BP (!) 171/75 Pulse 85 Temp 36.1 ??C (97 ??F) Resp 16 Ht 1.499 m (59 ) Wt 93 kg (205 lb) SpO2 99% BMI 41.40 kg/m?? Smoking Status Never BSA 1.86 m?? Available cardiac studies reviewed: XR Pelvis 1-2 Views Result Date: 08/15/2024 Narrative: INDICATION: Placement of stimulator device FINDINGS: Fluoroscopic AP and lateral views of the pelvis obtained. Total patient dose (air kerma): 7 mGy Stimulator wire extends along the posterior lumbar region to the right of midline inferiorly through the right S3 neural foramen. Impression: Stimulator wire extending to the right S3 neural foramen. -------- FINAL REPORT -------- Dictated By: Kayley Sexton Dictated Date: 08/15/2024 10:32 ET Assigned Physician: Kayley Sexton Reviewed and Electronically Signed By: Kayley Sexton Signed Date: 08/15/2024 10:35 ET Workstation ID: [id number] Transcribed By: Self Edit Transcribed Date: 08/15/2024 10:32 ET EKG No results found for this or any previous visit (from the past 4464 hours). ECHO No results found for this or any previous visit. CATH No results found for this or any previous visit. LABS: No results found for: WBC , HGB , HCT , MCV , PLT No results found for: GLUCOSE , CALCIUM , NA , K , CO2 , CL , BUN , CREATININE No results found for: INR , PROTIME No results found for: PTT Denies cardiac, pulm, neuro, hepatic or renal s/sx. Patient meets ASA guidelines for NPO status. > 4 mets without anginal symptoms. Relevant labs, vitals, imaging, cardiac and pulmonary studies as well as HPI, Meds, Allergies, ROS,PMH, PSH, SH, and FH reviewed. Relevant Problems /Renal (+) Chronic renal impairment, stage 3 (moderate) (CMS/HCC V24, CMS/HCC V28) Pulmonary (+) Asthma GI (+) Gastroesophageal reflux disease without esophagitis Other obesity Clinical information reviewed: Tobacco Allergies Meds Med Hx Surg Hx OB Status Fam Hx Soc Hx Anesthesia Plan ASA 3 Anesthesia Plan: MAC Anesthesia Considerations MAC Plan Factors Patient is not a current smoker Smoking cessation education has not been provided Induction method: intravenous Anesthetic plan and risks discussed with patient. Anesthesia Plan discussed with TYPO MACHINE OPERATOR. Anesthesia Evaluation Airway Mallampati: II Thyromental distance: >3 FB Neck ROM: fullnot intubatedno noted risk Dental (+) upper dentures and lower dentures Pulmonary breath sounds clear to auscultation Cardiovascular Rhythm: regular Rate: normal Neuro/Psych Mental Status: alert and oriented GI/Hepatic/Renal Endo/Other Abdominal Abdomen: soft. Bowel sounds: normal. PONV RISK SCORE: 2 Vitals: 08/13/24 1000 08/27/24 0929 BP: (!) 171/75 Pulse: 85 Resp: 16 Temp: 36.1 ??C (97 ??F) SpO2: 99% Weight: 93 kg (205 lb) Height: 1.499 m (59 ) SpO2 Readings from Last 1 Encounters: 08/27/24 99% No results found for: WBC , RBC , HGB , HCT , PLT , MCV Allergies Allergen Reactions Penicillins Rash STOP BANG: STOP-Bang Total Score: 4 (08/27/2024 9:44 AM) NPO Status: Time of Last Liquid: 0800 Time of Last Solid: 2200 documented in this encounter Plan of Treatment Not on file documented as of this encounter Visit Diagnoses Not on filedocumented in this encounter Administered Medications Inactive Administered Medications - up to 3 most recent administrations Medication Order MAR Action Action Date Dose Rate Site ceFAZolin (ANCEF) 2 gram/20 mL IV syringe intravenous, Administer over 3 Minutes, As needed, Starting on Tue08/27/24 at 1202, Anesthesia Intraprocedure Given 08/27/2024 12:02 PM EDT 2 g fentaNYL (PF) (SUBLIMAZE) injection intravenous, As needed, Starting on Tue08/27/24 at 1155, Anesthesia Intraprocedure Given 08/27/2024 11:55 AM EDT 100 mcg gentamicin (GARAMYCIN) 120 mg/100 mL IVPB (premix) 120 mg 120 mg, intravenous, at 200 mL/hr, Administer over 30 Minutes, Once, On Tue08/27/24 at 0945, For 1 dose, Preprocedure, premix bag, Indication: Prophylaxis-Surgical Given 08/27/2024 11:45 AM EDT 120 mg lactated Ringer's infusion 75 mL/hr, intravenous, Continuous, Starting on Tue08/27/24 at 1015, Preprocedure Restarted 08/27/2024 11:55 AM EDT New Bag 08/27/2024 10:45 AM EDT 75 mL/hr 75 mL/hr midazolam (VERSED) injection intravenous, As needed, Starting on Tue08/27/24 at 1155, Anesthesia Intraprocedure Given 08/27/2024 11:55 AM EDT 2 mg ondansetron (PF) (ZOFRAN) injection intravenous, As needed, Starting on Tue08/27/24 at 1204, Anesthesia Intraprocedure Given 08/27/2024 12:04 PM EDT 4 mg propofoL (DIPRIVAN) infusion 10 mg/mL intravenous, As needed, Starting on Tue08/27/24 at 1208, Anesthesia Intraprocedure Given 08/27/2024 12:15 PM EDT 30 mg Given 08/27/2024 12:13 PM EDT 20 mg Given 08/27/2024 12:11 PM EDT 20 mg documented in this encounter Care Teams Legal Executive Relationship Specialty Start Date End Date Curt Falk MD [address] [place] [address] Dr [address] WILLIAM Barrera PCP - General 07/16/21 documented as of this encounter
--- OUTSIDE RECORDS SUMMARY | 2024-08-29 12:51 | XMS_ITS | Encounter Summary ---
Author Organization [facility] Address [address] [place] [address] Care Team Providers Care Brick Pointer Name Role Phone Curt Falk MD Primary Care Provider + [phone] Reason for Visit * Auth/Cert (Routine) Specialty Diagnoses / Procedures Referred By Contac t Referred To Contact Diagnoses Overactive bladder Overactive bladder Procedures NC INS/REPL CONRAD/SACRAL/GASTRIC NSTIM PG/REC REQ POCKET CREATION/CONN NC ANALYSIS IMPLANTED NEUROSTIM PULSE GENERATOR SYSTEM COMPLEX/PROGRAMING SACRAL NEUROMODULATOR STAGE 2 SACRAL NEUROMODULATOR STAGE 2 Quang Hurd MD [address] [address] Phone: tel: fax: [facility] Main OR [address] [place] [phone] Phone: tel: Referral ID Status Reason Start Date Expiration Date Visits Re quested Visits Authorized [id number] 1 1 Encounter Details Date Type Department Care Team (Late st Contact Info) Description 08/27/2024 9:15 AM EDT - 08/27/2024 1:30 PM EDT Hospital Encounter [facility] Main OR [address] [place] [address] Quang Hurd MD [address] [address] Discharge Disposition: Home or Self Care Social History Tobacco Use Types Packs/Day Years [...] through Care Everywhere. * Sedation: General Info (Bengali) documented in this encounter Medications at Time [...] urinary frequency Postoperative diagnosis: Same CPT codes: 27722, 06511 Company: [employer] Complications: None Antibiotics: Gentamicin Indications: Successful stage [...] Ok to shower in 36 hours Quang Hurd MD * Brittany Mahan RN - 08/27/2024 10:02 AM EDT [facility] [phone] documented in this encounter Plan of Treatment Not on file documented as of this encounter Procedures Procedure Name Priority Date/Time Associated Diagnosis Comments NC ANALYSIS IMPLANTED NEUROSTIM PULSE GENERATOR SYSTEM COMPLEX/PROGRAMING 08/27/2024 11:55 AM EDT Overactive bladder Case Notes [facility] NC INS/REPL CONRAD/SACRAL/GASTRIC NSTIM PG/REC REQ POCKET CREATION/CONN 08/27/2024 11:55 AM EDT Overactive bladder Case Notes [facility] documented in this encounter Visit Diagnoses Diagnosis Gastroesophageal reflux disease without esophagitis Esophageal reflux Chronic renal impairment, stage 3 (moderate) (CMS/HCC V24, CMS/HCC V28) Asthma Unspecified asthma documented in this encounter Administered Medications Inactive [...] 10:45 AM EDT 75 mL/hr 75 mL/hr ondansetron (PF) (ZOFRAN) injection 4 mg 4 [...] First dose on Tue08/27/24 at 1015, Preprocedure sodium chloride 0.9 % [...] 0 08/27/2024 ceFAZolin (ANCEF) 2 g in karl rile water 20 mL IV syringe 1 08/27/2024 ceFAZolin (ANCEF) 2 gram/20 mL IV syringe 2 g 1 08/27/2024 diphenhydrAMINE (BENADRYL) i njection 12.5 mg 1 08/27/2024 gentamicin (GARAMYCIN) 120 m g/100 mL IVPB (premix) 120 mg 1 08/27/2024 haloperidol lactate (HALDOL) injection 1 mg 1 08/27/2024 lidocaine-EPINEPHrine (XYLOC DAMON W/EPI) 1 %-1:100,000 injection 1 08/27/2024 ondansetron (PF) (ZOFRAN) injection 4 mg 1 08/27/2024 oxyCODONE (ROXICODONE) immed iate release tablet 5 mg 1 08/27/2024 sodium chloride 0.9 % flush 10 mL 2 025 Discharge Count Last Ordered Date First Orde red Date DISCHARGE PATIENT 1 08/27/2024 documented in this encounter Care Teams Brick Pointer Relationship Specialty Start Date End Date Curt Falk MD [address] [place] [address] Dr [address] [place], [place] PCP - General 07/16/21 documented as of this encounter
== END 2024-08-29 12:19 | disposition home or self-care (01) ==
LOC: HO.MAMMO 12:18
PROVIDERS: PCP Internal Medicine; Visit Provider Internal Medicine
DX: Z12.31 Encounter for screening mammogram for malignant neoplasm of breast (principal)
CPT/HCPCS: 77063; 77067

== ENCOUNTER → 2024-08-29 12:30 | Outpatient (BNV) | payer OTHER, SELFPAY | PROVIDERS: PCP Internal Medicine; Visit Provider Internal Medicine | DX: Z12.31 Encounter for screening mammogram for malignant neoplasm of breast (principal) | CPT/HCPCS: 77063; 77067 ==

== ENCOUNTER 2024-09-05 09:52 | Outpatient (AMB) | payer OTHER, SELFPAY ==
[2024-09-05 10:00] VITALS: BP 148/82; PULSE 87; O2SAT 95; BMI 42.2
--- NOTE | 2024-09-05 10:00 | A.OFFPC_ITS ---
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 Required: No Accompanied by: Self / Same As Patient Allergies Penicillins [PENICILLINS] Allergy (Intermediate, Verified 09/05/24 10:29) RASH Medication List - Last Reconciled 09/05/24 by Curt Falk MD acetaminophen 650 mg (2 x 325 mg) PO Q6H PRN 30 days [ADULT PULL-UPS As directed] [ADULT PULL-UPS As directed] albuterol sulfate 2.5 mg continuous nebulization Q6H PRN albuterol sulfate 90 mcg/actuation 2 inhalations inhalation Q6H PRN 30 days atorvastatin 10 mg PO BEDTIME 90 days blood pressure kit-extra large As directed buprenorphine HCl (Belbuca) 150 mcg buccal Q12H buprenorphine HCl (Belbuca) 150 mcg buccal Q12H 30 days buprenorphine HCl (Belbuca) 150 mcg buccal Q12H 30 days dupilumab (Dupixent) 300 mg subcut Q2W escitalopram oxalate 20 mg PO DAILY 90 days ezetimibe 10 mg PO DAILY fluticasone propion-salmeterol 115-21 mcg/actuation (Advair HFA) 2 puffs inhalation Q12H 30 days ibuprofen 600 mg PO Q8H PRN lidocaine 5% leave on most painful area for up to 12 hrs topically daily; 30 days loratadine 10 mg PO DAILY PRN 90 days lorazepam mg PO BID PRN montelukast 10 mg PO QPM 90 days naloxone 4 mg/actuation (Narcan) 4 mg intranasal Q3M PRN [NEBULIZER and all related supplies As directed] omeprazole 40 mg PO DAILY 90 days prednisone 20 mg PO DAILY 5 days trazodone 100 mg PO BEDTIME PRN [wipes As directed] zolpidem 5 mg PO BEDTIME PRN Tobacco use date assessed: 09/05/24 Fall risk assessment: No Falls in past year Last assessed Fall Risk: 09/05/24 Dental Screening Dental Screen Date: 09/05/24 Did you have a dental visit in the last 12 months?: No Did you have a dental problem in the last 6 months where you did not have access to dental care?: No Was dental information given to patient?: No HPI BLLE weakness/pain HPI Details Patient comes in today complaining of recurrent/frequent bilateral lower extremity weakness over the past month, which is making it more difficult for her to walk and move around as her symptoms make her feel very unsteady and she is always afraid she might lose her balance and fall as a result States that she would often feel some pain and discomfort over her inguinal areas bilaterally that seem to radiate inwards and this would often be associated with a sensation of weakness and unsteadiness of her lower extremities She is also breaking out in a recurrent itchy rash again all over - states that this has been going on for a while now and was somewhat controlled with oral Prednisone PRN but feels that this has gotten worse lately and she would break out in a rash all over even if she just skips her oral Prednisone for a day States that she was seeing an flight service specialist years ago on [facility] but she has not been back there in a few years now She just went to the ER earlier this morning for increased rash and itching and was started back on some oral prednisone for now She denies any fever, headaches or dizziness Denies any chest pains, no increased SOB No nausea/vomiting, no abdominal pain No change in bowel habits noted COUNTS INCLUDE 234 BEDS AT THE [facility] Medical History Opioid use disorder Abdominal pain Depression Anxiety Insomnia Myalgia, upper arm Osteoarthritis of right knee Lumbar spondylosis Foot pain, bilateral BRIDGETTE (obstructive sleep apnea) Asthma AKMILA positive Urticaria Obesity (BMI 30-39.9) Vitamin D deficiency Chronic interstitial cystitis Irritable bowel syndrome (IBS) Arthralgia Osteoarthritis Esophageal stricture GERD (gastroesophageal reflux disease) Left lumbar radiculopathy CAD (coronary artery disease) Pure hypercholesterolemia Benign essential hypertension Surgical History History of surgery History of total right knee replacement (09/22/21) Hx of cystoscopy Status post balloon dilatation of esophageal stricture (~2005) History of cardiac catheterization History of colonoscopy History of nephrolithotomy with removal of calculi History of tooth extraction Family History Father Hypertension Mother Hypertension Diabetes CVD (cardiovascular disease) Daughter No problems noted. Family/Other FH: mental illness Other Mental health problem Substance abuse Social History Housing: Apartment Are you a primary director of health care marketing to a significant other at home: No Do you presently have visiting nurse or other home services: No Alcohol intake: never Comment: medicated, see MAR Patient Tobacco Use Status: Never used Tobacco e-Cigarette/Vaping Use: Never Used Second Hand Smoke Exposure: No service: No Current occupational status: disabled Cognitive needs: No Hearing needs: No Vision needs: Yes (Glasses) Questionnaire PHQ-9 Over the last 2 weeks, how often have you been bothered by any of the following problems? 1. Little interest or pleasure in doing things: not at all 2. Feeling down, depressed, or hopeless: not at all 3. Trouble falling or staying asleep, or sleeping too much: not at all 4. Feeling tired or having little energy: not at all 5. Poor appetite or overeating: not at all 6. Feeling bad about yourself - or that you are a failure or have let yourself or your family down: not at all 7. Trouble concentrating on things, such as reading the newspaper or watching television: not at all 8. Moving or speaking so slowly that other people could have noticed. Or the opposite - being so fidgety or restless that you have been moving around a lot more than usual: not at all 9. Thoughts that you would be better off or of hurting yourself in some way: not at all Total score: 0 Depression Screening Interpretation: Negative Depression Screening Done: Yes 98596 - PHQ-9 Billing: Yes Source: Developed by Drs. Jorge Diallo, Yumiko Irvin, Celestino Banda and colleagues, with an educational mari from [employer]. Thrive Questionnaire Date Thrive assessed: 09/05/24 I am a: Patient What is your living situation today?: I choose not to answer this question Within the past 12 months, did the food you bought not last and you didn't have the money to get more?: I choose not to answer this question Within the past 12 months, did you worry whether your food would run out before you got money to buy more?: I choose not to answer this question Do you have trouble paying for medicines?: I choose not to answer this question Do you have trouble getting transportation to medical appointments?: I choose not to answer this question Do you have trouble paying your heating and electricity bill?: I choose not to answer this question Do you have trouble taking care of your child, family member or friend?: I choose not to answer this question Do you have trouble with day-to-day activities such as bathing, preparing meals, shopping, managing finances, etc.?: I choose not to answer this question Are you currently unemployed and looking for a job?: I choose not to answer this question Are you interested in more education?: I choose not to answer this question Please select the resources that you would like help with: None Currently or been in a relationship where the following occur: I choose not to answer THRIVE Score: 0 AUDIT C Alcohol Use Questionnaire (AUDIT-C) 1. How often do you have a drink containing alcohol?: Never 3. How often do you have six or more drinks on one occasion?: Never Total Score: 0 Score Reviewed/Action Taken: Yes ADRIANA-7 AMB Questionnaire ADRIANA-7 Date ADRIANA - 7 assessed: 09/05/24 Feeling nervous, anxious, or on edge: 0 = Not at all Not being able to stop or control worryin = Not at all Worrying too much about different things: 0 = Not at all Trouble relaxin = Not at all Being so restless that it is hard to sit still: 0 = Not at all Becoming easily annoyed or irritable: 0 = Not at all Feeling afraid as if something awful might happen: 0 = Not at all Total ADRIANA-7 score (0-4 normal; 5-9 mild; 10-14 moderate; 15-21 severe): 0 Source: Developed by Drs. Jorge Diallo, Yumiko Irvin, Celestino Banda and colleagues, with an educational mari from [employer]. Review of Systems Const Denies chills, Denies fatigue, Denies fever(s) and Denies headache(s) ENT Denies dysphagia, Denies dizziness, Denies otalgia, Denies headache(s), Denies neck pain, Denies odynophagia and Denies sore throat Card Denies chest pain, Denies palpitations and Denies dyspnea Resp Denies chest congestion, Denies cough and Denies dyspnea GI Denies abdominal pain, Denies constipation, Denies dysphagia, Denies heartburn, Denies diarrhea, Denies nausea, Denies odynophagia and Denies vomiting Denies difficulty voiding, Reports nocturia, Reports dysuria (on and off - has chronic IC - symptoms have improved slightly with Botox) and Reports urinary urgency (at times) Musc Details: recurrent bilateral inguinal pain and associated bilateral lower extremity pain/weakness Reports back pain (over the right lower back), Reports arthralgias (involving multiple joints - right knee and hip and right shoulder), Denies neck pain and Reports radiating pain into limb (into the right thigh and leg; right shoulder pain going into neck/arm) Skin/Breast Details: (+) scattered itchy rash all over Reports pruritus Neuro Denies dizziness and Denies headache(s) Psych Denies anxiety Endo Denies fatigue and Denies palpitations Physical exam (Primary Care) Vital Signs: Last Vital Signs Pulse 87 09/05/24 10:00 BP 148/82 H 09/05/24 10:00 Pulse Ox 95 09/05/24 10:00 Oxygen Delivery Method Room Air 09/05/24 10:00 BMI result Body Mass Index 42.2 Tobacco/Smoking Status: Tobacco use Status Tobacco use date assessed 09/05/24 09/05/24 10:08 Patient Tobacco Use Status Never used Tobacco 09/05/24 10:08 Tobacco use type 07/26/23 14:03 e-Cigarette/Vaping Use Never Used 09/05/24 10:08 PHQ-9: PHQ-9 Score PHQ-9: Total score 0 09/05/24 10:08 Depression Screening Interpretation: Negative Thrive Assessment: Date of Thrive Assessment Date Thrive assessed 09/05/24 09/05/24 10:08 Currently or been in a relationship where the following occur: I choose not to answer Const General: no acute distress and alert HENMT Throat: Yes posterior oropharynx normal and Yes tonsils normal (no TP congestion noted) Neck Neck: Yes supple and No lymphadenopathy Thyroid: Thyroid normal Resp Auscultation: clear to auscultation bilaterally, no rales and no wheezes Cardio Rate: regular rate Rhythm: regular rhythm Heart sounds: no murmurs GI Palpation (GI): Soft to palpation and nontender Auscultation: normal bowel sounds General: Yes no CVA tenderness Back/Spine/Pelvis Back: no CVA tenderness Thoracic/Lumbar Spine: paraspinal muscle tenderness on the right and lumbar spinal tenderness (chronic) Skin Other: (+) scattered erythematous pruritic papular rash all over Extrem General: Yes no clubbing, cyanosis or edema Right upper extremity: shoulder/upper arm Details: tenderness Location: of the A-C joint and abnormal ROM (ROM limited due to pain - unable to raise right arm above shoulder level) Right lower extremity: hip/thigh Details: tenderness Location: of the hip Location: anteriorly and knee Details: tenderness; no swelling Left lower extremity: hip/thigh Details: tenderness Location: of the hip Location: anteriorly and knee Details: tenderness; no swelling Coding Level of Care Code Est Pt Level 4 (41202) Diagnoses Bilateral hip pain M25.551; M25.552 Bilateral leg weakness R29.898 Urticarial rash L50.9 Moderate persistent asthma without complication J45.40 Asthma severity: moderate Asthma persistence: persistent Asthma complication type: uncomplicated Gastroesophageal reflux disease without esophagitis K21.9 Esophagitis presence: without esophagitis Insomnia, unspecified type G47.00 Insomnia type: unspecified Anxiety F41.9 Episode of recurrent major depressive disorder, unspecified depression episode severity F33.9 Depression Type: major depressive disorder Major depression recurrence: recurrent Active/Remission status: currently active Major depression episode severity: unspecified Obesity (BMI 30-39.9) E66.9 Additional Codes PHQ-9 - 71218 - PHQ-9 Billing: Yes ([id number]) Assessment & Plan Assessment & Plan (1) Bilateral hip pain: Code(s): M25.551 - Pain in right hip; M25.552 - Pain in left hip Category: Medical Plan: Will send patient for repeat x-rays of both hips for further evaluation X-rays of the right hip done back in 2021 revealed (+) moderate arthritis changes in the right hip Will also refer her to orthopedics for further evaluation and management (2) Bilateral leg weakness: Code(s): R29.898 - Other symptoms and signs involving the musculoskeletal system Category: Medical Plan: Have advised patient that her recent bilateral leg weakness is likely related to her hip pathology / arthritis She is advised that physical therapy may help her but we will wait and see what orthopedics would recommend first (3) Urticarial rash: Code(s): L50.9 - Urticaria, unspecified Category: Medical Plan: Patient has been breaking out repeatedly in an itchy rash all over for a while now and she feels that this is getting worse lately Continue oral Prednisone PRN for now Will refer her again to allergy/immunology DESEAN for further evaluation and management (4) Asthma: Code(s): J45.909 - Unspecified asthma, uncomplicated Category: Medical Qualifiers: Asthma severity: moderate Asthma persistence: persistent Asthma complication type: uncomplicated Qualified Code(s): J45.40 - Moderate persistent asthma, uncomplicated Plan: Controlled Continue Dupixent 200 mg SQ every 2 weeks, Breo Ellipta 200-25 mcg 1 inhalation QD, Montelukast 10 mg QD and Albuterol HFA 2 inhalations every 6 hours as needed Dupixent seems to be helping with patient's asthma but she feels that this is not helping with her pruritic rash at all Follow-up with pulmonary as scheduled (5) GERD (gastroesophageal reflux disease): Code(s): K21.9 - Gastro-esophageal reflux disease without esophagitis Category: Medical Qualifiers: Esophagitis presence: without esophagitis Qualified Code(s): K21.9 - Gastro-esophageal reflux disease without esophagitis Plan: Dietary restrictions reinforced Continue Omeprazole 40 mg QD (6) Insomnia: Code(s): G47.00 - Insomnia, unspecified Category: Medical Qualifiers: Insomnia type: unspecified Qualified Code(s): G47.00 - Insomnia, unspecified Plan: Sleep hygiene reinforced States that her Quetiapine helps with her sleep at night (7) Anxiety: Code(s): F41.9 - Anxiety disorder, unspecified Category: Medical Plan: Continue Clonazepam 1 mg 3 times a day as needed and Bupropion ER 200 mg QD in AM (8) Depression: Code(s): F32.9 - Major depressive disorder, single episode, unspecified Category: Medical Qualifiers: Depression Type: major depressive disorder Major depression recurrence: recurrent Active/Remission status: currently active Major depression episode severity: unspecified Qualified Code(s): F33.9 - Major depressive disorder, recurrent, unspecified Plan: Continue Quetiapine 200 mg Q HS; is also on Bupropion ER 200 mg QD Follow-up with Psychiatry as scheduled (9) Obesity (BMI 30-39.9): Code(s): E66.9 - Obesity, unspecified Category: Medical Plan: Reinforced diet; exercise and weight loss may be unrealistic and limited due to her physical issues but she is advised to try to stay as active as she can Plan Follow up as scheduled in November 2024 Orders: Orders XR hip RT min 2V Today M25.551 - Pain in right hip Referrals Allergy & Immunology Referral L50.9 - Urticaria, unspecified, Z91.09 - Other allergy status, other than to drugs and biological substances Orthopedics Referral M25.551 - Pain in right hip, M25.552 - Pain in left hip
--- OUTSIDE RECORDS SUMMARY | 2024-09-05 11:15 | XMS_ITS | Encounter Summary ---
Author Organization [facility] Address [address] [place] [address] Care Team Providers Care Certified Nurse Operating Room Name Role Phone Curt Falk MD Primary Care Provider + [phone] Reason for Visit * Reason Comments Rash Encounter Details Date Type Department Care Team (Late st Contact Info) Description 09/05/2024 7:39 AM EDT - 09/05/2024 8:03 AM EDT Emergency [facility] Emergency [address] [place] [id number] Urticaria (Primary Dx); Rash Discharge Disposition: Home or Self Care Social [...] Sign Reading Time Taken Comments Blood Pressure 156/73 09/05/2024 7:38 AM EDT Pulse 97 09/05/2024 7:38 AM EDT Temperature 37.1 ??C (98.8 ??F) 09/05/2024 7:38 AM ED T Respiratory Rate 18 09/05/2024 7:38 AM EDT Oxygen Saturation 97% 09/05/2024 7:38 AM EDT Inhaled Oxygen Concentration - - Weight 95.7 kg (211 lb) 09/05/2024 7:38 AM EDT Height 149.9 cm (4' 11 ) 09/05/2024 7:38 AM EDT Body Mass Index 42.62 09/05/2024 7:38 AM EDT documented in this encounter Functional Status * Are you deaf or do you have serious difficulty hearing? Answer Date of Assessment Author No 09/05/2024 7:45 AM EDT Epifanio Black RN * Are you blind or do you have serious difficulty seeing, even when wearing glasses? Answer Date of Assessment Author No 09/05/2024 7:45 AM EDT Epifanio Black RN * Do you have serious difficulty walking or climbing stairs? Answer Date of Assessment Author No 09/05/2024 7:45 AM EDT Epifanio Black RN * Do you have serious difficulty dressing or bathing? Answer Date of Assessment Author No 09/05/2024 7:45 AM EDT Epifanio Black RN * Because of a physical, mental, or emotional condition, do you have serious difficulty doing errandsalone such as visiting the doctor? Answer Date of Assessment Author No 09/05/2024 7:45 AM Epifanio Reece RN documented as of this encounter Mental Status * Because of a physical, mental, or emotional condition, do you have serious difficulty concentrating, remembering, or making decisions? (5 years old or older) Answer Entry Date Author No 09/05/2024 7:45 AM Epifanio Reece RN documented in this encounter Medications at Time [...] 1 (one) time each day if needed. hydrOXYzine HCL (ATARAX) 25 mg tabletIndicatio ns:Rash,Urticar ia Take 1 tablet (25 mg total) by mouth 3 (three) times a day for 10 days. 30 each 09/05/2024 ibuprofen (ADVIL,MOTRIN) 600 mg tablet Take 1 [...] day. predniSONE (DELTASONE) 10 mg tablet Take 4 tablets (40 mg total) by mouth 1 (one) time each day for 3 days, THEN 3 tablets (30 mg total) 1 (one) time each day for 3 days, THEN 2 tablets (20 mg total) 1 (one) time each day for 3 days, THEN 1 tablet (10 mg total) 1 (one) time each day for 3 days. 30 each 09/05/2024 5 traZODone (DESYREL) 100 mg tablet Take 1 tablet (100 mg total) by mouth at bedtime. zolpidem (AMBIEN) 5 mg tablet Take by mouth at bedtime as needed for sleep. documented as of this encounter Ordered Prescriptions Prescription Sig Dispense Quantity Refills Last Filled Start Date End Date hydrOXYzine HCL (ATARAX) 25 mg tabletIndications: Rash,Urticaria Take 1 tablet (25 mg total) by mouth 3 (three) times a day for 10 days. 30 each 09/05/2024 5 predniSONE (DELTASONE) 10 mg tablet Take 4 tablets (40 mg total) by mouth 1 (one) time each day for 3 days, THEN 3 tablets (30 mg total) 1 (one) time each day for 3 days, THEN 2 tablets (20 mg total) 1 (one) time each day for 3 days, THEN 1 tablet (10 mg total) 1 (one) time each day for 3 days. 30 each 09/05/2024 5 documented in this encounter Discharge Disposition Disposition Code Departure Means Destination Comment s Home or Self Care D/c instructions provided to pt by YVES manzano. Pt left ED with steady gait documented in this encounter Progress Notes * Kiesha Buckner RN - 09/05/2024 7:34 AM EDT Pt comes to ER with c/o a rash that has been ongoing, pt states she has had this problem for a while (3-4 months) and has been prescribed prednisone in the past and every time it runs out, the rash comes back. Pt is seeing derm and they prescribed her dupixant but there has been no improvement. * YVES Silverio - 09/05/2024 7:25 AM EDT Emergency Medicine Note Patient Name: Celia Horne Initial Evaluation: 09/05/2024 : 1955 Patient's PCP: Curt Falk MD Emergency Physician: YVES Silverio History of Present Illness Chief Complaint: Chief Complaint Patient presents with Rash HPI: 69-year-old female here today with urticaria. She has had it in the past. Has an appointment for the rfid developer she saw 3 months ago urticaria is not resolved. She has an appointment in August. Denies any fevers or chills or respiratory distress. ROS: I have performed a ROS with the pertinent positives and negatives documented in the history ofpresent illness. Previous History Past Medical History: Diagnosis Date KAMILA positive DX:KAMILA positive Anxiety Arthralgia DX:Arthralgia Asthma DX:Asthma CHF (congestive heart failure) ([facility] V24, [facility] V28) Chronic interstitial cystitis DX:Chronic interstitial cystitis [...] SURGICAL HISTORY PROCEDURE: HISTORY OTHER; COMMENT: CYSTOSCOPY Social History Tobacco Use Smoking status: Never Smokeless tobacco: Former Substance Use Topics Alcohol use: Never Drug use: Never Family History Problem Relation Name Age of Onset Hypertension Mother at 85 of heart related causes Other (Other: CVD) Mother Diabetes Mother Other (Other: valve replacement) Mother Hypertension Father is allergic to penicillins. No current facility-administered medications on file prior [...] 3 (three) times a day if needed. buprenorphine HCL [address] 150 [...] by mouth 1 (one) time each day. traZODone (DESYREL) 100 mg tablet Take 1 tablet (100 mg total) by mouth at bedtime. zolpidem (AMBIEN) 5 mg tablet Take by mouth at bedtime as needed for sleep. [DISCONTINUED] predniSONE (DELTASONE) 10 mg tablet Take 1 tablet (10 mg total) by mouth 1 (one) time each day. 4TABS X 3D,THEN 3 TABS X 3,THEN 2 TABS X 3D THEN 1 TAB X 3 DAYS FOR 12 DAYS Physical Exam ED Triage Vitals [09/05/24 0738] Temp Heart Rate Resp BP 37.1 ??C (98.8 ??F) 97 18 (!) 156/73 SpO2 Temp Source Heart Rate Source Patient Position 97 % Oral Monitor Sitting BP Location FiO2 (%) Left arm -- Physical Exam Vitals and nursing note reviewed. Constitutional: Appearance: Normal appearance. HENT: Head: Normocephalic. Nose: Nose normal. Eyes: Extraocular Movements: Extraocular movements intact. Cardiovascular: Rate and Rhythm: Normal rate and regular rhythm. Pulmonary: Effort: Pulmonary effort is normal. Breath sounds: Normal breath sounds. Musculoskeletal: General: Normal range of motion. Cervical back: Normal range of motion. Skin: Comments: Urticaria noted over chest neck no warmth no sign of infection no vesicles noted Neurological: General: No focal deficit present. Mental Status: She is alert and oriented to person, place, and time. Psychiatric: Mood and Affect: Mood normal. Behavior: Behavior normal. Results Labs Reviewed - No data to display Abnormal Labs Reviewed - No data to display No orders to display I have discussed the incidental/abnormal imaging and/or lab abnormalities with the patient and haveinstructed them the need for further evaluation and workup with their primary care doctor. I have provided the patient with a paper copy of the abnormality. The laboratory results, imaging results and other diagnostic exam results were reviewed in the EMR. EKG Interpretation Critical Care Time None ? Differential Diagnosis Contact dermatitis Allergic reaction Urticaria Pruritus Medical Decision Making Well-appearing no respiratory distress recommend follow-up with customer service sales associate take medication as directed. No sign of infection at this time Medications - No data to display Clinical Impressions as of 09/05/24 0833 Rash Urticaria Amount and/or Complexity of Data Reviewed External Data Reviewed: Encounters reviewed in Chart Review. Details: Labs: ordered. Decision-making details documented in ED Course. Radiology: ordered. Decision-making details documented in ED Course. ECG/medicine tests: ordered. Decision-making details documented in ED Course. Procedures Procedures Diagnosis 1. Urticaria hydrOXYzine HCL (ATARAX) 25 mg tablet 2. Rash hydrOXYzine HCL (ATARAX) 25 mg tablet Disposition Discharge ED Prescriptions Medication Sig Dispense Start Date End Date Auth. Provider predniSONE (DELTASONE) 10 mg tablet Take 4 tablets (40 mg total) by mouth 1 (one) time each day for3 days, THEN 3 tablets (30 mg total) 1 (one) time each day for 3 days, THEN 2 tablets (20 mg total)1 (one) time each day for 3 days, THEN 1 tablet (10 mg total) 1 (one) time each day for 3 days. 30 each 09/05/2024 09/17/2024 YVES Silverio hydrOXYzine HCL (ATARAX) 25 mg tablet Take 1 tablet (25 mg total) by mouth 3 (three) times a day for 10 days. 30 each 09/05/2024 09/15/2024 YVES Sanchez Physician Attestation YVES Silverio 09/05/24 0753 YVES Silverio 09/05/24 0833 Cosigned by Wyatt Tejeda MD at 09/05/2024 9:53 AM EDT documented in this encounter Plan of Treatment Not on file documented as of this encounter Visit Diagnoses Diagnosis Urticaria- Primary Unspecified urticaria Rash Rash and other nonspecific skin eruption documented in this encounter Discontinued Medications Medication Sig Discontinue Reason Start Date End Da te predniSONE (DELTASONE) 10 mg tablet Take 1 tablet (10 mg total) by mouth 1 (one) time each day. 4TABS X 3D,THEN 3 TABS X 3,THEN 2 TABS X 3D THEN 1 TAB X 3 DAYS FOR 12 DAYS 09/05/2024 documented as of this encounter Care Teams Certified Nurse Operating Room Relationship Specialty Start Date End Date Curt Falk MD [address] [place] [address] Dr [address] WILLIAM Barrera PCP - General 07/16/21 documented as of this encounter
--- OUTSIDE RECORDS SUMMARY | 2024-09-05 11:15 | XMS_ITS | Clinical Summary ---
Author Organization [facility] [place] [address] Phone Care Team Providers Care Clinical Support Associate Name Role Phone Curt Falk MD Primary Care Provider + [phone] Allergies Active Allergy Reactions Criticality Noted Date [...] 3 (three) times a day if needed. 024 Active buprenorphine HCL [address] 150 mcg into mouth between cheek and gum 2 (two) times a day. Max Daily Amount: 300 mcg Active fluticasone furoate-vilan teroL (BREO ELLIPTA) 200-25 mcg/dose inhaler Inhale 1 [...] 1 (one) time each day. Active ibuprofen (ADVIL,MOTRIN ) 600 mg tablet Take 1 tablet (600 [...] Active predniSONE (DELTASONE) 10 mg tablet Take 4 [...] each day for 3 days. 30 each 025 2024 Active hydrOXYzine HCL (ATARAX) 25 mg tabletIndicat ions:Rash,Urt icaria Take 1 tablet (25 mg total) by mouth 3 (three) times a day for 10 days. 30 each 025 2024 Active clonazePAM (KlonoPIN) 1 mg tablet Take 0.5 mg by mouth 3 (three) times a day. Max Daily Amount: 1.5 mg 2024 Discontinued(P rescriber Discontinued) predniSONE (DELTASONE) 10 mg tablet Take 1 tablet (10 mg total) by mouth 1 (one) time each day. 4TABS X 3D,THEN 3 TABS X 3,THEN 2 TABS X 3D THEN 1 TAB X 3 DAYS FOR 12 DAYS 2024 Discontinued Active Problems Problem Noted Date Diagnosed Date Gastroesophageal reflux disease without esophagi tis 08/27/2024 Chronic renal impairment, st age 2 (moderate) ([facility] V24, [facility] V28) 08/27/2024 Asthma 08/27/2024 Encounters Date Type Department Care Team Description 09/05/2024 7:39 AM EDT - 09/05/2024 8:03 AM EDT Emergency [facility] Emergency [address] [place] [address] Urticaria (Primary Dx); Rash Discharge Disposition: Home or Self Care 08/27/2024 12:00 PM EDT - 08/27/2024 1:30 PM EDT Surgery [facility] OR [address] [place] [phone] Quang Hurd MD SACRAL NEUROMODULATOR STAGE 2 [49136 (CPT??) +1 more] 08/27/2024 11:55 AM EDT Anesthesia Event [facility] OR [address] [place] [phone] Leeann Anders MD 08/27/2024 9:15 AM EDT - 08/27/2024 1:30 PM EDT Hospital Encounter [facility] OR [address] [place] [phone] Quang Hurd MD Discharge Disposition: Home or Self Care 08/15/2024 9:07 AM EDT Anesthesia Event [facility] OR [address] [place] [phone] Dennis Maldonado DO 08/15/2024 9:00 AM EDT - 08/15/2024 10:30 AM EDT Surgery [facility] OR [address] [place] [phone] Quang Hurd MD SACRAL NEUROMODULATOR STAGE 1 [79931 (CPT??) +1 more] 08/15/2024 6:53 AM EDT - 08/15/2024 10:50 AM EDT Hospital Encounter [facility] Main OR [address] [place] [address] Quang Hurd MD Discharge Disposition: [...] Hyperlipidemia Hypertension CHF (congestive heart failur e) ([facility] V24, [facility] V28) Shortness of breath Chronic kidney disease [...] Mass Index 42.62 09/05/2024 7:38 AM EDT Plan of Treatment Health Maintenance [...] this topic Medical Devices Implanted Type Area Remote Broadcast Engineer Device Identifier Shelf Expiration Date Model / Serial / Lot Joints Knee Joints Knee Right: Knee Cable Ext Interstim 4.32mm - Sn/A - [id number] Implanted:Qty: 1 on 08/15/2024 by Quang Hurd MD at [facility] Neurostim N/A: Sacrum [employer] 09/12/2025 [id number] / N/A / [id number] Kit Mri Lead Interstim 4.32-28cm - Sn/A - [id number] Implanted:Qty: 1 on 08/15/2024 by Quang Hurd MD at [facility] Neurostim N/A: Sacrum [employer] 10/09/2025 [id number] / N/A / [id number] System Interstim X Recharge-Free F/Bladder/Valentina l Cntrl - [id number] - [id number] Implanted:Qty: 1 on 08/27/2024 by Quang Hurd MD at [facility] Neurostim N/A: Back [employer] 06/15/2025 [id number] / [id number] / N/A Procedures Procedure Name Priority Date/Time Associated Diagnosis Comments IA ANALYSIS IMPLANTED NEUROSTIM PULSE GENERATOR SYSTEM COMPLEX/PROGRAMING 08/27/2024 11:55 AM EDT Overactive bladder Case Notes C-ARM, [employer] IA INS/REPL CONRAD/SACRAL/GASTRIC NSTIM PG/REC REQ POCKET CREATION/CONN 08/27/2024 11:55 AM EDT Overactive bladder Case Notes C-ARM, [employer] XR PELVIS 1-2 VIEWS Routine 08/15/2024 9 :42 AM EDT IA ANALYSIS IMPLANTED NEUROSTIM PULSE GENERATOR SYSTEM COMPLEX/PROGRAMING 08/15/2024 9:07 AM EDT Overactive bladder Case Notes C-ARM, [employer] IA PERC IMPLANTATION NSTIM ELECTRODE ARRAY SACRAL NERVE [...] Signed Date: 08/15/2024 10:35 ET Workstation ID: [id number] Transcribed By: Self Edit Transcribed Date: 08/15/2024 [...] Kayley Sexton Reviewed and Electronically Signed By: Darshan, Parshant Signed Date: 08/15/2024 10:35 ET Workstation ID: [id number] Transcribed By: Self Edit Transcribed Date: 08/15/2024 10:32 ET us Quang Hurd MD IMG XR PROCEDURES Fi nal Result * ECG 12 lead - Procedural (No Charge) (08/15/2024 7:24 AM EDT) Ventricular Rate ECG 82 BPM GEMUSE Atrial Rate 82 BPM GEMUSE P-R Interval 124 ms GEMUSE QRS Duration 70 ms GEMUSE Q-T Interval 338 ms GEMUSE QTc 394 ms GEMUSE P Wave Grethel 58 degrees GEMUSE R Grethel 20 degrees GEMUSE T Grethel 42 degrees GEMUSE ECG Interpretation Normal sinus rhythm Nonspecific ST and T wave abnormality Abnormal ECG When compared with ECG of 14-JUL-2023 00:18, QT has shortened Confirmed by Marilyn STEIN JAMES ([id number]) on 08/15/2024 4:44:39 PM GEMUSE 08/15/2024 7:24 AM EDT 08/15/2024 4:44 PM EDT us Dennis Maldonado DO ECG ORDERABLES Final Result GEMUSE from Last 3 Months Insurance [facility] Member Subscriber Plan / Payer (Ef fective 2024-Present) Name:Celia Marquez Relation to Subscriber:Self Name:Celia Marquez Payer ID:[id number] Group ID:Not on file Type:Not on file Address: [place] [address] [address] [address] [address] Care Teams Clinical Support Associate Relationship Specialty Start Date End Date Curt Falk MD [address] [place] [address] [address] WILLIAM Barrera PCP - General 07/16/21
--- OUTSIDE RECORDS SUMMARY | 2024-09-05 11:15 | XMS_ITS | Continuity of Care Document ---
Author Organization [facility] Address [address] [place] [address] Phone Care Team Providers Care Journeyman Press Operator Name Role Phone Leonor Yousif DMD [...] Diagnoses Date Provider Providers Copied on Encounter [facility], [address], [place], [id number], [place] tel:[phone] [facility] Encounter for dental examination and cleaning with abnormal findingsTobacco abuse counselingOther specified counselingRisk for dental caries, highDietary counseling and surveillance David Galvez. [address], [place], [id number], [place]. tel:[phone] Family History Family Member Type Diagnosis Age At Onset No Information Payers Payer name Insurance type Covered republican ID Omid otero(s) Dental Medi-Rem[facility] OP [id number] DENTICAL [id number] Social History Type Description Quantity Date Captured [...]
--- OUTSIDE RECORDS SUMMARY | 2024-09-05 11:15 | XMS_ITS | Data Portability ---
Author Organization [facility] [place] [facility] Address [address] [place] [address] Care Team Providers Care Choker Hooker Name Role Phone HIM CCA OTHER BECKY [...] mg tablet 2023 024 [facility][id number], [address] [place], [address], 18:26:49 Patient TargetsNo targets recorded. Patient InstructionsNo instructions recorded. Reason for Referral None Reported. Medical Equipment None Reported. Allergies Allergen ID Allergen Name Allergen Category Reaction Reaction Severity Criticality Documentation Date Start Date Code Code System Note Provider Name and Address Organization Details Recorded Time 1711 Product containin g penicilli n (product) medicatio n Not available Not available Not available 02/14/2024 84112 8001 SNOMED Not [facility] 03:44:38 8489 aspirin medicatio n Not available Not available Not available 02/14/2024 1191 RxNorm Not Available [facility] - production 4 03:44:38 Medications Name Sig [...] SNOMED-CT Code Diagnosis ICD10 Code Diagnosis Note [id number] Efrain Gomez MD Main - [facility] [address] [place] [phone] 05/19/2023 18:01:49 05/20/2023 11:31:35 Exacerbation of intermittent asthma 139499001 J45.21 [id number] Iris Boo MD Main - [facility] [address] [place] [phone] 07/23/2024 18:15:24 07/23/2024 19:53:44 Pruritic rash 83315017 L28.2 69 year old female being evaluated for a year of intermitte nt pruritic rash. Patient reports having a full body rash that comes and goes, has been seen by mutliple doctors including transmission specialist s, and tried multiple antihistam ofe [...] assessment and plan as documented by the power plant mechanic. I provided real-time medical direction for this [...] Davidson Member ID Guarantor Name 07/23/2024 1 [facility] - DOS ON OR AFTER 2022 - DUAL ELIGIBLE - SHELTER OPTIONS AND ONE CARE (MEDICARE REPLACEMENT/ADV ANTAGE - HMO) Celia Madrigal [id number] Celia Madrigal Notes Date Note Type Note [...] cough, sore throat, fever. Member called her assistant distribution manager, and she cannot be seen until June. Member requesting home visit. Member advised to call 911 with any worsening symptoms. PMH: includes but not limited to HTN, coronary artery disease, asthma, IBD, GERD, anxiety ..................... ..................... ..................... ..................... ..................... ..................... ............... CRC Nurse Triage Notes (Leonor Vizcaino): Comments: No further information required to process visit. ..................... ..................... ..................... ..................... ..................... ..................... ............... Housekeeper Note From Yuri Bedolla: Encountered patient conscious, [...] performed, both resulted negative; results relayed to [facility]. Skin warm, dry and of appropriate color for ethnicity. Head and neck, free of trauma and edema. ? JVD. Breath sounds diminished in all hopper and exhibit faint expiratory wheezes in the apexes bilaterally. Abdomen soft, non-tender and non-distended. extremities, free of trauma and edema. [facility] contacted: Duoneb treatment administered. 12 lead EKG performed: sinus rhythm with septal T-wave inversion noted. 30 mg of PO prednisone administered. [facility] to write prescription for further treatment at [...] would also like to remain at home. Housekeeper Allergies: Penicillin, Aspirin ..................... ..................... ..................... ..................... ..................... ..................... ............... Disposition: Luann Efrain Gomez MD [address] [facility], [place], [address], [employer] 05/19/2023 19:03:41 07/23/2024 text/html CRC Nurse Triage [...] ..................... ..................... ..................... ..................... ..................... ..................... ............... Housekeeper Note From Bradford Solorio: This 69-year-old female [...] because of the risks. Patient states the nutrition faculty member started her on Dupixent injections every two weeks. Patient has had two injections in the nutrition faculty member states that this could take two to three months before it starts working. Patient states she went to [facility] over the weekend and was prescribed [...] her PCP on Tuesday and involve the nutrition faculty member if necessary. I instructed her to present to the emergency department for any new or worsening severe symptoms such as chest pain, shortness of breath, dysphagia, high fever, altered mental status. The patient was given the opportunity to ask questions and is agreeable to this plan. ..................... ..................... ..................... ..................... ..................... ..................... ............... [facility] Consulted: Iris Boo ..................... ..................... ..................... ..................... ..................... ..................... ............... Disposition: Fulfilled Iris Boo MD [address] [facility], [place], [address], [facility] 07/23/2024 19:23:45 OBGyn Episode No OBEpisode recorded.
--- OUTSIDE RECORDS SUMMARY | 2024-09-05 11:15 | XMS_ITS | Continuity of Care Document ---
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 Name Role Phone Resident MD, Internal Med [...] twice a day with food - Active jorbjmau-cjgvxxfii-q ydrocort 3.5 mg/mL-10,000 unit/mL-1 % ear solution [...] With Patient And O r Family [facility] PT Psychotherapy, 30 Min With Patient And O r Family [facility] PT Non-Billable Phone Consultation Psychotherapy, 30 Min With Patient And O r Family [facility] PT Psychotherapy, 45 Min With [...] With Patient And O r Family [facility] PT VENIPUNCTURE LIMITED EXAM,ESTAB PAT. Psychotherapy, 30 Min With Patient And O r Family [facility] PT HEMOGLOBIN (HGB) INTERMED EXAM,ESTAB [...] mplete CHOLESTEROL, TOTAL 23:48:29 PendingIncomp lete Performed by:[facility] (EN)[address] [place] [address] Panel Description: LIPID PANEL, STANDARD PendingInco mplete CHOLESTEROL, TOTAL 01:24:43 PendingIncomp lete Performed by:[facility] (EN)[address] [place] [address] Panel Description: LIPID PANEL, STANDARD Final CHOLESTEROL, TOTAL 09:33:46 169 mg/dL <200 N Final Performed by:[facility] (EN)[address] [place] [address] Panel Description: LIPID PANEL, STANDARD Final CHOLESTEROL, TOTAL 12:30:11 169 mg/dL <200 N Final Performed by:[facility] (EN)[address] [place] [address] Panel Description: Bacteria identified in Urine by Culture PendingInco mplete CULTURE 23:48:29 SEE NOTE PendingIncomp lete Performed by:[facility] (EN)[address] [place] [address] Panel Description: Bacteria identified in Urine by Culture PendingInco mplete CULTURE 01:24:43 SEE NOTE PendingIncomp lete Performed by:[employer] (EN)[address] [place] [address] Panel Description: Bacteria identified in Urine by Culture PendingInco mplete CULTURE 09:33:46 SEE NOTE PendingIncomp lete Performed by:[employer] Mag[employer] (EN)[address] [place] [address] Panel Description: Bacteria identified in Urine by Culture Final CULTURE, URINE, ROUTINE 12:30:11 SEE NOTE Final CULTURE, URINE , ROUTINE Micro Number: [id number] Test Status: Final Specimen Source: Urine Specimen Quality: Adequate Result: Less than 10,000 CFU/mL of single Gram positive organism isolated. No further testing will be performed. If clinically indicated, recollection using a method to minimize contamination, with prompt transfer to Urine Culture Transport Tube, is recommended.Per formed by:[employer] Mag[employer] (EN)[address] [place] [address] Panel Description: LIPID PANEL, STANDARD PendingInco mplete HDL CHOLESTEROL 23:48:29 PendingIncomp lete Performed by:[employer] Mag[employer] (EN)[address] [place] [address] Panel Description: LIPID PANEL, STANDARD PendingInco mplete HDL CHOLESTEROL 01:24:43 PendingIncomp lete Performed by:[employer] Mag[employer] (EN)[address] [place] [address] Panel Description: LIPID PANEL, STANDARD Final HDL CHOLESTEROL 09:33:46 46 mg/dL > OR = 50 L Final Performed by:[employer] (EN)[address] [place] [address] Panel Description: LIPID PANEL, STANDARD Final HDL CHOLESTEROL 12:30:11 46 mg/dL > OR = 50 L Final Performed by:[employer] (EN)[address] [place] [address] Panel Description: LIPID PANEL, STANDARD PendingInco mplete TRIGLYCERIDE S 23:48:29 PendingIncomp lete Performed by:[employer] (EN)[address] [place] [address] Panel Description: LIPID PANEL, STANDARD PendingInco mplete TRIGLYCERIDE S 01:24:43 PendingIncomp lete Performed by:[employer] (EN)[address] [place] [address] Panel Description: LIPID PANEL, STANDARD Final TRIGLYCERIDE S 09:33:46 105 mg/dL <150 N Final Performed by:[employer] (EN)[address] [place] [address] Panel Description: LIPID PANEL, STANDARD Final TRIGLYCERIDE S 12:30:11 105 mg/dL <150 N Final Performed by:[employer] (EN)[address] [place] [address] Panel Description: LIPID PANEL, STANDARD PendingInco mplete LDL-CHOLESTE ROL 23:48:29 PendingIncomp lete Performed by:[employer] (EN)[address] [place] [address] Panel Description: LIPID PANEL, STANDARD PendingInco mplete LDL-CHOLESTE ROL 01:24:43 PendingIncomp lete Performed by:[employer] (EN)[address] [place] [address] Panel Description: LIPID PANEL, STANDARD Final LDL-CHOLESTE [...] LDL-C. Jak CRAWFORD et al. ROHITH. 2013;310(19): 3942-8267 (http://educati on.BrainLAB.Tykli/faq/FA Q164)Performed by:[employer] saman Magana (EN)[address] [place] [address] Panel Description: LIPID PANEL, STANDARD Final LDL-CHOLESTE [...] LDL-C. Jak CRAWFORD et al. ROHITH. 2013;310(19): 0229-0912 (http://educati on.BrainLAB.Tykli/faq/FA Q164)Performed by:[employer] saman Magana (EN)[address] [place] [address] Panel Description: LIPID PANEL, STANDARD PendingInco mplete CHOL/HDLC RATIO 23:48:29 PendingIncomp lete Performed by:[employer] saman Magana (EN)[address] [place] [address] Panel Description: LIPID PANEL, STANDARD PendingInco mplete CHOL/HDLC RATIO 01:24:43 PendingIncomp lete Performed by:[employer] saman Magana (EN)[address] [place] [address] Panel Description: LIPID PANEL, STANDARD Final CHOL/HDLC RATIO 09:33:46 3.7 (calc) <5.0 N Final Performed by:[employer] (EN)[address] [place] [address] Panel Description: LIPID PANEL, STANDARD Final CHOL/HDLC RATIO 12:30:11 3.7 (calc) <5.0 N Final Performed by:[employer] (EN)[address] [place] [address] Panel Description: LIPID PANEL, STANDARD PendingInco mplete NON HDL CHOLESTEROL 23:48:29 PendingIncomp lete Performed by:[employer] (EN)[address] [place] [phone] Panel Description: LIPID PANEL, STANDARD PendingInco mplete NON HDL CHOLESTEROL 01:24:43 PendingIncomp lete Performed by:[employer] (EN)[address] [place] [address] Panel Description: LIPID PANEL, STANDARD Final NON HDL CHOLESTEROL 09:33:46 123 mg/dL (calc) <130 N Final For patients with diabetes plus 1 major ASCVD risk factor, treating to a non-HDL-C goal of <100 mg/dL (LDL-C of <70 mg/dL) is considered a therapeutic option.Performe d by:[employer] Mag[employer] (EN)[address] [place] [address] Panel Description: LIPID PANEL, STANDARD Final NON HDL CHOLESTEROL 12:30:11 123 mg/dL (calc) <130 N Final For patients with diabetes plus 1 major ASCVD risk factor, treating to a non-HDL-C goal of <100 mg/dL (LDL-C of <70 mg/dL) is considered a therapeutic option.Performe d by:[employer] Magana (EN)[address] [place] [phone] Panel Description: URINALYSI S, COMPLETE W/REFLEX TO CULTURE Final COLOR 23:48:29 YELLOW YELLOW N Final Performed by:[employer] (EN)[address] [place] [phone] APPEARANCE 23:48:29 CLEAR CLEAR N Final Performed by:[employer] (EN)[address] [place] [address] SPECIFIC GRAVITY 23:48:29 1.016 1.001-1.03 5 N Final Performed by:[employer] (EN)[address] [place] [address] PH 23:48:29 7.0 5.0-8.0 N Final Performed by:[employer] Mag[employer] (EN)[address] [place] [address] GLUCOSE 23:48:29 NEGATIVE NEGATIVE N Final Performed by:[employer] (EN)[address] [place] [phone] BILIRUBIN 23:48:29 NEGATIVE NEGATIVE N Final Performed by:[employer] (EN)[address] [place] [phone] KETONES 23:48:29 NEGATIVE NEGATIVE N Final Performed by:[facility] [employer] (EN)[address] [place] [phone] OCCULT BLOOD 23:48:29 NEGATIVE NEGATIVE N Final Performed by:[facility] (EN)[address] [place] [phone] PROTEIN 23:48:29 NEGATIVE NEGATIVE N Final Performed by:[employer] (EN)[address] [place] [phone] NITRITE 23:48:29 NEGATIVE NEGATIVE N Final Performed by:[employer] (EN)[address] [place] [address] [phone] LEUKOCYTE ESTERASE 23:48:29 1+ NEGATIVE A Final Performed by:[employer] (EN)[address] [place] [phone] WBC 23:48:29 NONE SEEN /HPF < OR = 5 N Final Performed by:[employer] (EN)[address] [place] [address] [phone] RBC 23:48:29 NONE SEEN /HPF < OR = 2 N Final Performed by:[employer] (EN)[address] [place] [phone] SQUAMOUS EPITHELIAL CELLS 23:48:29 6-10 /HPF < OR = 5 A Final Performed by:[employer] (EN)[address] [place] [phone] BACTERIA 23:48:29 FEW /HPF NONE SEEN A Final Performed by:[employer] (EN)[address] [place] [phone] HYALINE CAST 23:48:29 NONE SEEN /LPF NONE SEEN N Final Performed by:[employer] (EN)[address] [place] [phone] NOTE 23:48:29 SEE COMMENT Final This urine was analyzed for the presence of WBC, RBC, bacteria, casts, and other formed elements. Only those elements seen were reported. Performed by:[employer] (EN)[address] [place] [address] Panel Description: URINALYSI S, COMPLETE W/REFLEX TO CULTURE Final COLOR 01:24:43 YELLOW YELLOW N Final Performed by:[employer] (EN)[address] [place] [address] APPEARANCE 01:24:43 CLEAR CLEAR N Final Performed by:[employer] (EN)[address] [place] [address] SPECIFIC GRAVITY 01:24:43 1.016 1.001-1.03 5 N Final Performed by:[employer] (EN)[address] [place] [phone] PH 01:24:43 7.0 5.0-8.0 N Final Performed by:[employer] (EN)[address] [place] [address] [phone] GLUCOSE 01:24:43 NEGATIVE NEGATIVE N Final Performed by:[employer] (EN)[address] [place] [address] [phone] BILIRUBIN 01:24:43 NEGATIVE NEGATIVE N Final Performed by:[employer] (EN)[address] [place] [address] [phone] KETONES 01:24:43 NEGATIVE NEGATIVE N Final Performed by:[employer] (EN)[address] [place] [phone] OCCULT BLOOD 01:24:43 NEGATIVE NEGATIVE N Final Performed by:[employer] (EN)[address] [place] [address] [phone] PROTEIN 01:24:43 NEGATIVE NEGATIVE N Final Performed by:[facility] (EN)[address] [place] [address] NITRITE 01:24:43 NEGATIVE NEGATIVE N Final Performed by:[facility] [employer] (EN)[address] [place] [address] LEUKOCYTE ESTERASE 01:24:43 1+ NEGATIVE A Final Performed by:[facility] (EN)[address] [place] [address] WBC 01:24:43 NONE SEEN /HPF < OR = 5 N Final Performed by:[facility] [employer] (EN)[address] [place] [address] RBC 01:24:43 NONE SEEN /HPF < OR = 2 N Final Performed by:[facility] (EN)[address] [place] [address] SQUAMOUS EPITHELIAL CELLS 01:24:43 6-10 /HPF < OR = 5 A Final Performed by:[facility] (EN)[address] [place] [address] BACTERIA 01:24:43 FEW /HPF NONE SEEN A Final Performed by:[facility] [employer] (EN)[address] [place] [address] HYALINE CAST 01:24:43 NONE SEEN /LPF NONE SEEN N Final Performed by:[facility] (EN)[address] [place] [address] NOTE 01:24:43 SEE COMMENT Final This urine was analyzed for the presence of WBC, RBC, bacteria, casts, and other formed elements. Only those elements seen were reported. Performed by:[facility] (EN)[address] [place] [address] Panel Description: URINALYSI S, COMPLETE W/REFLEX TO CULTURE Final COLOR 09:33:46 YELLOW YELLOW N Final Performed by:[employer] (EN)[address] [place] [address] APPEARANCE 09:33:46 CLEAR CLEAR N Final Performed by:[employer] [facility] (EN)[address] [place] [address] SPECIFIC GRAVITY 09:33:46 1.016 1.001-1.03 5 N Final Performed by:[employer] [facility] (EN)[address] [place] [address] PH 09:33:46 7.0 5.0-8.0 N Final Performed by:[employer] [facility] (EN)[address] [place] [address] GLUCOSE 09:33:46 NEGATIVE NEGATIVE N Final Performed by:[employer] [facility] (EN)[address] [place] [phone] BILIRUBIN 09:33:46 NEGATIVE NEGATIVE N Final Performed by:[employer] (EN)[address] [place] [phone] KETONES 09:33:46 NEGATIVE NEGATIVE N Final Performed by:[employer] (EN)[address] [place] [address] [phone] OCCULT BLOOD 09:33:46 NEGATIVE NEGATIVE N Final Performed by:[employer] [facility] (EN)[address] [place] [address] [phone] PROTEIN 09:33:46 NEGATIVE NEGATIVE N Final Performed by:[employer] (EN)[address] [place] [address] [phone] NITRITE 09:33:46 NEGATIVE NEGATIVE N Final Performed by:[employer] [facility] (EN)[address] [place] [address] LEUKOCYTE ESTERASE 09:33:46 1+ NEGATIVE A Final Performed by:[employer] [facility] (EN)[address] [place] [address] [phone] WBC 09:33:46 NONE SEEN /HPF < OR = 5 N Final Performed by:[employer] [facility] (EN)[address] [place] [address] [phone] RBC 09:33:46 NONE SEEN /HPF < OR = 2 N Final Performed by:[employer] [facility] (EN)[address] [place] [address] [phone] SQUAMOUS EPITHELIAL CELLS 09:33:46 6-10 /HPF < OR = 5 A Final Performed by:[facility] (EN)[address] [place] [address] [phone] BACTERIA 09:33:46 FEW /HPF NONE SEEN A Final Performed by:[employer] (EN)[address] [place] [address] HYALINE CAST 09:33:46 NONE SEEN /LPF NONE SEEN N Final Performed by:[facility] (EN)[address] [place] [address] NOTE 09:33:46 SEE COMMENT Final This urine was analyzed for the presence of WBC, RBC, bacteria, casts, and other formed elements. Only those elements seen were reported. Performed by:[employer] (EN)[address] [place] [address] [phone] Panel Description: URINALYSI S, COMPLETE W/REFLEX TO CULTURE Final COLOR 12:30:11 YELLOW YELLOW N Final Performed by:[facility] (EN)[address] [place] [address] [phone] APPEARANCE 12:30:11 CLEAR CLEAR N Final Performed by:[facility] (EN)[address] [place] [address] [phone] SPECIFIC GRAVITY 12:30:11 1.016 1.001-1.03 5 N Final Performed by:[employer] (EN)[address] [place] [address] [phone] PH 12:30:11 7.0 5.0-8.0 N Final Performed by:[employer] (EN)[address] [place] [address] [phone] GLUCOSE 12:30:11 NEGATIVE NEGATIVE N Final Performed by:[employer] (EN)[address] [place] [address] BILIRUBIN 12:30:11 NEGATIVE NEGATIVE N Final Performed by:[facility]em davison Izzy (EN)[address] [place] [address] [phone] KETONES 12:30:11 NEGATIVE NEGATIVE N Final Performed by:[facility] LabsArtem davison [place] (EN)[address] [place] [address] [phone] OCCULT BLOOD 12:30:11 NEGATIVE NEGATIVE N Final Performed by:[facility] (EN)[address] [place] [address] [phone] PROTEIN 12:30:11 NEGATIVE NEGATIVE N Final Performed by:[facility] (EN)[address] [place] [address] [phone] NITRITE 12:30:11 NEGATIVE NEGATIVE N Final Performed by:[facility] (EN)[address] [place] [address] [phone] LEUKOCYTE ESTERASE 12:30:11 1+ NEGATIVE A Final Performed by:[facility] davison [place] (EN)[address] [place] [address] [phone] WBC 12:30:11 NONE SEEN /HPF < OR = 5 N Final Performed by:[facility] (EN)[address] [place] [address] [phone] RBC 12:30:11 NONE SEEN /HPF < OR = 2 N Final Performed by:[facility] (EN)[address] [place] [address] [phone] SQUAMOUS EPITHELIAL CELLS 12:30:11 6-10 /HPF < OR = 5 A Final Performed by:[facility] (EN)[address] [place] [address] [phone] BACTERIA 12:30:11 FEW /HPF NONE SEEN A Final Performed by:[facility] (EN)[address] [place] [address] [phone] HYALINE CAST 12:30:11 NONE SEEN /LPF NONE SEEN N Final Performed by:[employer] (EN)[address] [place] [address] NOTE 12:30:11 SEE COMMENT Final This urine was analyzed for the presence of WBC, RBC, bacteria, casts, and other formed elements. Only those elements seen were reported. Performed by:[employer] (EN)[address] [place] [phone] Panel Description: REFLEXIVE URINE CULTURE Amanda l REFLEXIVE URINE CULTURE 23:48:29 SEE COMMENT Final CULTURE INDICATED - RESULTS TO FOLLOWPerformed by:[employer] [employer] Magana (EN)[address] [place] [address] Panel Description: REFLEXIVE URINE CULTURE Amanda l REFLEXIVE URINE CULTURE 01:24:43 SEE COMMENT Final CULTURE INDICATED - RESULTS TO FOLLOWPerformed by:[facility] LabsAbelardoHam Magana (EN)[address] [place] [address] Panel Description: REFLEXIVE URINE CULTURE Amanda l REFLEXIVE URINE CULTURE 09:33:46 SEE COMMENT Final CULTURE INDICATED - RESULTS TO FOLLOWPerformed by:[facility] LabsAbelardoHam Magana (EN)[address] [place] [address] [phone] Panel Description: REFLEXIVE URINE CULTURE Amanda l REFLEXIVE URINE CULTURE 12:30:11 SEE COMMENT Final CULTURE INDICATED - RESULTS TO FOLLOWPerformed by:[facility] LabsAbelardoHam Magana (EN)[address] [place] [address] [phone] Panel Description: TSH W/REFLEX TO FT4 PendingInco mplete TSH W/REFLEX TO FT4 23:48:29 PendingIncomp lete Performed by:[employer] (EN)[address] [place] [address] Panel Description: TSH W/REFLEX TO FT4 Final TSH W/REFLEX TO FT4 01:24:43 2.36 mIU/L 0.40-4.50 N Final Performed by:[employer] (EN)[address] [place] [address] Panel Description: TSH W/REFLEX TO FT4 Final TSH W/REFLEX TO FT4 09:33:46 2.36 mIU/L 0.40-4.50 N Final Performed by:[employer] (EN)[address] [place] [address] Panel Description: TSH W/REFLEX TO FT4 Final TSH W/REFLEX TO FT4 12:30:11 2.36 mIU/L 0.40-4.50 N Final Performed by:[employer] (EN)[address] [place] [address] Advance Directives Directive Yes / No Effective Date File Name No Information Encounters Encounter Description Practice Location Reason(s) For Visit Diagnoses Date Provider Providers Copied on Encounter INTERMED EXAM,ESTAB PAT [facility], [address] [place], [address], tel: [phone] [facility] HPI (chief complaint) Body mass index [BMI] 25.0-25.9, adultDental decayHyperlip idemia, unspecifiedHy pertensionHyp othyroidism, unspecifiedHe althcare maintenanceDy suriaOther abnormal findings in urine 5 Resident Internal Med. . [facility], [address] [place], [address], [place] tel: [phone] [facility] No Information [address], [id number], [place]. tel:[phone] LIMITED EXAM,ESTAB PAT. [facility], [address] [place], [address], [place] tel: [phone] [facility] HPI (chief complaint) Acute otitis externa of right ear, unspecified typeAcute coughAcute tonsillitis, unspecified etiologyHyper tensionHypoth yroidism, unspecifiedHy perlipidemia, unspecifiedSy mptomatic varicose veins of both lower extremitiesDe ntal decayPrediabe tesHealthcare maintenance Fe 5 Resident Internal Med. . LIMITED EXAM,ESTAB PAT. [facility], [address] [place], [address], [place] tel:[phone] [facility] Cough (chief complaint)MOSES (chief complaint)hpi (chief complaint) Encounter for screening, unspecifiedAc jasiel otitis externa of right ear, unspecified typeAcute coughAcute tonsillitis, unspecified etiology 5 Enrico Saravia. [address] [place], [id number], [place]. tel:[phone] [facility], [address] [place], [address], [place] tel:[phone] [facility] No Information 5 Noe Lopez. [address] [place], [place], [id number], [place]. [phone] [facility], [address] [place], [address], [place] [phone] [facility] No Information 4 Noe Lopez. [address] [place], [place], [id number], [place]. [phone] INTERMED EXAM,ESTAB [facility], [address] [place], [address], [place] tel:[phone] [facility] hypertension (chief complaint)hcm (chief complaint)HPI (chief complaint) HypertensionH ypothyroidism , unspecifiedHy perlipidemia, unspecifiedSy mptomatic varicose veins of both lower extremitiesDe ntal decayPrediabe tesHealthcare maintenanceAl lergic rhinitisImpac jessie cerumen, unspecified earAcute otitis externa of right ear, unspecified type 4 Resident Internal Med. . LIMITED EXAM,ESTAB [facility]. [facility], [address] [place], [address], [place] tel:[phone] [facility] HTN F/u (chief complaint) Body mass index [BMI] 28.0-28.9, adultHyperten sara 4 Resident Internal Med. . INTERMED EXAM,[facility], [address] [place], [address], tel:[phone] [facility] hypertension (chief complaint)thy roid (chief complaint)HCM (chief complaint)hpi (chief complaint) Hypothyroidis m, unspecifiedHy perlipidemia, unspecifiedEs sential (primary) hypertensionS ymptomatic varicose veins of both lower extremitiesHe althcare maintenanceBr east screeningOste oporosis screeningEnco unter for immunizationD ental decayPrediabe lui 4 Resident Internal Med. . [facility], [address] [place], [address], tel: [phone] [facility] Counseling, unspecified 3 Health Education. . [facility], [address] [place] [address], [address], tel:[phone] [facility] Counseling, unspecified 3 Health Education. . INTERMED EXAM,[facility], [address] [place], [address], tel:[phone] [facility] varicose veins (chief complaint) Symptomatic varicose veins of both lower extremitiesEs sential (primary) hypertensionH yperlipidemia , unspecifiedHy pothyroidism, unspecified 3 Resident Internal Med. . INTERMED EXAM, [facility], [address] [place], [address], tel:[phone] [facility] hypertension (chief complaint)hyp erlipidemia (chief complaint)Thy roid problems (chief complaint) Healthcare maintenanceHy pothyroidism, unspecifiedHy perlipidemia, unspecifiedHy pertensionBod y mass index [BMI] 28.0-28.9, adultImmuniza tion not carried out because of patient refusalEncoun ter for immunizationS easonal allergies 3 Resident Internal Med. . [facility], [address] [place] [address], [address], tel:[phone] [facility] No Information 3 [facility]. [address] [place], [address], [place]. tel:[phone] Psychotherap y, 30 Min With Patient And Or Family M [facility], [address] [place], [address], [place] tel:[phone] [facility] Adjustment disorder with mixed anxiety and depressed mood 3 Fredrick Suzette. [address] [place], [place], [id number], [place]. tel:[phone] Psychotherap y, 30 Min With Patient And Or Family M [facility], [address] [place], [address], [place] tel:[phone] [facility] Adjustment disorder with mixed anxiety and depressed mood 3 Fredrick Suzette. [address] [place], [place], [id number], [place]. tel:[phone] [facility], [address] [place], [address], [place] tel:[phone] [facility] No Information 2 Management Case. [address] [place], [id number], [place]. tel:[phone] Psychotherap y, 30 Min With Patient And Or Family M [facility], [address] [place], [address], [place] tel:[phone] [facility] Adjustment disorder with anxiety 2 Fredrick Suzette. [address] [place], [id number], [place]. tel:[phone] Psychotherap y, 45 Min With Patient And Or Family M [facility], [address] [place], [address], [place] tel:[phone] [facility] Adjustment disorder with mixed anxiety and depressed mood 2 Fredrick Suzette. [address] [place], [place], [id number], [place]. tel:[phone] Psychotherap y, 45 Min With Patient And Or Family M [facility], [address] [place], [address], [place] tel: [phone] [facility] Adjustment disorder with mixed anxiety and depressed mood Oct-2 2 Fredrick Suzette. [address], [id number], [place]. [phone] INTERMED EXAM,ESTAB PAT [facility], [address] [place], [address], [place] tel: [phone] [facility] Eye problems (chief complaint)Hyp othyroidism (chief complaint)HCM (chief complaint) Immunization not carried out because of patient refusalHypoth yroidism, unspecifiedBl epharitis of upper eyelids of both eyes, unspecified typeHypertens ionHyperlipid emia, unspecifiedAl lergic conjunctiviti s, bilateralPain of right eyeEncounter for immunization Jan- 2 Resident MED/PED. . Psychotherap y, 60 Min With Patient And Or Family M [facility], [address] [place], [address], [place] tel: [phone] [facility] Adjustment disorder with mixed anxiety and depressed mood Jan- 2 Fredrick Suzette. [address] [place], [place], [id number], [place]. tel:[phone] Psychotherap y, 60 Min With Patient And Or Family M [facility], [address] [place], [address], [place] tel: [phone] [facility] Adjustment disorder with mixed anxiety and depressed mood Oct-0 2 Fredrick Suzette. [address] [facility], [id number], [place]. tel:[phone] Psychotherap y, 60 Min With Patient And Or Family M [facility], [address] [place], [address], [place] tel: [phone] [facility] Adjustment disorder with mixed anxiety and depressed mood Sep-3 2 Fredrick Suzette. [address] [place], [place], [id number], [place]. [phone] Psychotherap y, 45 Min With Patient And Or Family M [facility], [address] [place], [address], [place] tel: [phone] [facility] Adjustment disorder with mixed anxiety and depressed mood Sep-2 2 Fredrick Suzette. [address] [place], [place], [id number], [place]. tel:[phone] Psychotherap y, 60 Min With Patient And Or Family M [facility], [address] [place], [address], [place] tel: [phone] [facility] Adjustment disorder with mixed anxiety and depressed mood Sep-1 2 Fredrick Suzette. [address] [place], [place], [id number], [place]. tel:[phone] Psychotherap y, 60 Min With Patient And Or Family M [facility], [address] [place], [address], [place] tel: [phone] [facility] Adjustment disorder with mixed anxiety and depressed mood Sep-0 2 Fredrick Suzette. [address] [place], [place], [id number], [place]. [phone] [facility], [address] [place], [address], [place] tel:[phone] [facility] Blepharitis of upper eyelids of both eyes, unspecified typeSevere myopia, rightMyopia, leftAstigmati sm of both eyes, unspecified typePresbyopi a Sep-0 2 Jose E Silva. [address] [place], [place], [id number], [place]. tel:[phone] Psychotherap y, 60 Min With Patient And Or Family M [facility], [address] [place], [address], [place] tel:[phone] [facility] Adjustment disorder with mixed anxiety and depressed mood Sep-0 2 Fredrick Suzette. [address] [place], [id number], [place]. tel:[phone] Psychotherap y, 60 Min With Patient And Or Family M [facility], [address] [place], [address], [place] tel: [phone] [facility] depression (chief complaint) Adjustment disorder with mixed anxiety and depressed mood 2 Fredrick Suzette. [address] [place], [id number], [place]. tel:[phone] [facility], [address] [place], [address], [place] tel:[phone] [facility] No Information 2 Management Case. [address] [place], [place], [id number], [place]. tel:[phone] [facility], [address] [place], [address], [place] tel:[phone] [facility] No Information 2 Management Case. [address] [place], [place], [id number], [place]. tel:[phone] [facility], [address] [place], [address], [place] tel:[phone] [facility] No Information 2 Management Case. [address] [place], [place], [id number], [place]. tel:[phone] Psychotherap y, 30 Min With Patient And Or Family M [facility], [address] [place], [address], [place] tel: [phone] [facility] Adjustment disorder with mixed anxiety and depressed mood 2 [facility]. [address] [place], [place], [id number], [place]. tel:[phone] LIMITED EXAM,ESTAB PAT. [facility], [address] [place], [address], [place] tel:[phone] [facility] recurrent vertigo's (chief complaint)Vag inal itching (chief complaint)HCM (chief complaint) Encounter for screening mammogram for cancer of breastHypothy roidism, unspecifiedPr ediabetesAdju stment disorder with mixed anxiety and depressed moodVaginal irritation 2 Ntahan Mandie. [address] [place], [id number], [place]. tel:[phone] Referring Provider: Mandie Evans, [address] [place], [address] . tel:[phone] Psychotherap y, 30 Min With Patient And Or Family [facility], [address] [place], [address], [place] tel:[phone] [facility] Adjustment disorder with mixed anxiety and depressed mood 2 Fredrick Bradford. [address] [place], [place], [id number], [place]. tel:[phone] INTERMED EXAM,[facility], [address] [place], [address], [place] tel: [phone] [facility] Thyroid problems (chief complaint)Ear Pain (chief complaint)HCM (chief complaint) Immunization not carried out because of patient refusalEncntr screen for dis of the bld/bld-form org/immun mechnsmHypoth yroidism, unspecifiedEa r pain, bilateralBrea st cancer screening by mammogramAmbl yopia of left eyeImpacted cerumen, unspecified ear 2 Lon Parker. [address] [place], [address], [place]. tel:[phone] INTERMED EXAM,[facility], [address] [place], [address], [place] tel:[phone] [facility] hypothyroidis m (chief complaint)med ication (chief complaint)Pre ventive exam (chief complaint)HCM (chief complaint)col on cancer screening (chief complaint) Encounter for screening for malignant neoplasm of colonGastroes ophageal reflux disease, unspecified whether esophagitis presentHypoth yroidism, unspecifiedMe casimiro impairmentAbn ormal glucoseH/O: varicose veinsStressEn counter for immunizationE ncounter for screening mammogram for cancer of breast 2 Loren Bhatti. [address], [id number], [place]. tel:[phone] [facility], [address] [place], [address], [place] tel:[phone] [facility] Contact w and exposure to oth viral communicable diseases 2 Jono Montez. [address], [place], [place], [id number], [place]. tel:[phone] LIMITED EXAM,ESTAB PAT. [facility], [address] [place], [address], [place] tel:[phone] [facility] Dry eyes (chief complaint) Viral conjunctiviti sSore throat 2 Resident Internal Med. . INTERMED EXAM,ESTAB PAT [facility], [address] [place], [address], [place] tel: [phone] [facility] colon cancer screening (chief complaint)HCM (chief complaint)Rig ht upper quadrant (chief complaint)Dys uria (chief complaint) Body mass index (BMI) 29.0-29.9, adultEncounte r for screening for cancer of colonRoutine health maintenanceOt her abnormal findings in urineRight upper quadrant abdominal pain Sep-0 1 Resident Internal Med. . [facility], [address] [place], [address], [place] tel: [phone] [facility] No Information 1 [facility]. [address] [place], [address], [place]. tel:[phone] LIMITED EXAM,ESTAB PAT. [facility], [address] [place], [address], [place] tel:[phone] [facility] cough (chief complaint) Gastroesophag eal reflux disease, unspecified whether esophagitis presentCough 1 Resident Internal Med. . BRIEF EXAM, ESTAB PAT. [facility], [address] [place], [address], [place] tel:[phone] [facility] Cough (chief complaint) Cough 1 Sidra Hahn. [address] [place] [address] [address], [id number], [place]. tel:[phone] INTERMED EXAM,ESTAB [facility], [address] [place], [address], [place] tel: [phone] [facility] Cough (chief complaint) CoughHypothyr oidism, unspecified 1 Resident MED/PED. . LIMITED EXAM,ESTAB [facility]. [facility], [address] [place], [address], [place] tel: [phone] [facility] Cough 1 Resident MED/PED. . [facility], [address] [place], [address], [place] tel: [phone] [facility] Counseling, unspecified 0 Health Education. . LIMITED EXAM,ESTAB [facility]. [facility], [address] [place], [address], [place] tel: [phone] [facility] hypertension (chief complaint)Thy roid problems (chief complaint)hyp erlipidemia (chief complaint)col on cancer screening (chief complaint)HCM (chief complaint)All ergies (chief complaint) Encounter for screening for cancer of colonImmuniza tion not carried out because of patient refusalHypert ensionPrediab etesHypothyro idism, unspecifiedHy perlipidemia, unspecifiedNo dule of skin of head 3 0 Shannan Dougherty. [address] [place] [address], [id number], [place]. tel:[phone] [facility], [address] [place], [address], [place] tel:[phone] [facility] No Information 0 Shannan Dougherty. [address] [place], [place], [id number], [place]. tel:[phone] MINIMAL EXAM,ESTAB PAT. 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 . INTERMED EXAM,ESTAB PAT [facility], [address] [place] [address], [address], [place] tel: [phone] [facility] hypertension (chief complaint)Uri nary symptoms (chief complaint) HypertensionH ypothyroidism , unspecifiedHe althcare maintenancePr ediabetesHype rlipidemia, unspecifiedDy suriaOther specified counseling 0 Stephen Forbes. [address] [place], [place], [id number], [place]. [phone] LIMITED EXAM,ESTAB PAT. [facility], [address] [place], [address], [place] tel: [phone] [facility] hypertension (chief complaint)Thy roid (chief complaint)lef t axillary pain (chief complaint) Breast pain, leftHypothyro idism, unspecifiedHy pertension 9 Shannan Dougherty. [address] [place], [place], [id number], [place]. tel:[phone] [facility], [address] [place] [address], [address], [place] tel: [phone] [facility] No Information 9 Adelia Bhatti. [address], [place], [place], [id number], [place]. tel:[phone] [facility], [address] [place] [address], [address], [place] tel: [phone] [facility] Hypothyroidis m, unspecified 0 9 Adelia Bhatti. [address] [place], [place], [id number], [place]. tel:[phone] [facility], [address] [place] [address], [address], [place] tel:[phone] [facility] Encounter for dental exam and cleaning w abnormal findings 9 Annalise Gay. [address] [place], [place], [id number], [place]. tel:[phone] [facility], [address] [place], [address], [place] tel: [phone] [facility] Hypothyroidis m, unspecified 0 9 Shannan Dougherty. [address] [place], [place], [id number], [place]. tel:[phone] INTERMED EXAM,[facility], [address] [place] [address], [address], [place] tel: [phone] [facility] hypertension (chief complaint)Thy roid problems (chief complaint)Mus culoskeletal pain (chief complaint) Encounter for screening for cancer of colonHypothyr oidism, unspecifiedPr ediabetesHype rtensionSciat ica of right side 9 Shannan Dougherty. [address] [place], [place], [id number], [place]. tel:[phone] [facility], [address] [place] [address], [address], [place] tel: [phone] [facility] No Information 9 Shannan Dougherty. [address] [place], [place], [id number], [place]. tel:[phone] [facility], [address] [place] [address], [address], [place] tel:[phone] [facility] Hypothyroidis m, unspecified 0 2 9 Sebas Cuevas. [address] [place], [place], [id number], [place]. tel:[phone] [facility], [address] [place], [address], [place] tel: [phone] [facility] Hypothyroidis m, unspecified Shannan Jordan [address] [place], [place], [id number], [place]. tel:[phone] LIMITED EXAM,ESTAB PAT. [facility], [address] [place], [address], [place] tel: [phone] [facility] hypertension (chief complaint)hyp erlipidemia (chief complaint)col on cancer screening (chief complaint) Encounter for screening for cancer of colonHyperten sionHypothyro idism, unspecifiedPr ediabetesHist ory of uterine fibroidAt risk for dental problems Shannan Jordan [address] [place], [place], [id number], [place]. tel:[phone] LIMITED EXAM,ESTAB PAT. [facility], [address] [place], [address], [place] tel: [phone] [facility] Follow up on lab test(s) (chief complaint)Col on Cancer Screening (chief complaint) Body mass index (BMI) 27.0-27.9, adultEncounte r for screening for cancer of colonHypothyr oidism, unspecifiedHy pertensionHis tory of uterine fibroid Shannan Jordan [address] [place] [address], [id number], [place]. tel:[phone] [facility], [address] [place], [address], [place] tel: [phone] [facility] No Information [facility]. [address] [place], [address], [place]. tel:[phone] LIMITED EXAM,ESTAB PAT. 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 [address], [place], [id number], [place]. tel:[phone] INTERMED EXAM,ESTAB [facility], [address] [place], [address], [place] tel: [phone] [facility] back pain (chief complaint)see standing orders (chief complaint) HypertensionH ypothyroidism , unspecifiedHy perlipidemia, unspecifiedCe rvical massOther abnormal findings in urineEncounte r for screening for cancer of colonAcute right-sided thoracic back pain 8 Stephen Forbes. [address] [place], [id number], [place]. tel:[phone] LIMITED EXAM,ESTAB PAT. [facility], [address] [place], [address], [place] tel: [phone] [facility] Sore throat (chief complaint) Acute pharyngitis, unspecifiedHy pertensionHyp othyroidism, unspecifiedHy perlipidemia, unspecified 8 Resident Internal Med. . LIMITED EXAM,ESTAB [facility]. [facility], [address] [place], [address], [place] tel: [phone] [facility] Follow up on lab test(s) (chief complaint) Cervical mass 8 Adelia Bhatti. [address], [place], [place], [id number], [place]. tel:[phone] LIMITED EXAM,ESTAB PAT. [facility], [address] [place], [address], [place] tel: [phone] [facility] preventive exam (chief complaint)Fol low up on lab test(s) (chief complaint) Post-menopaus al bleeding 7 Adelia Bhatti. [address] [place], [address], [place]. tel:[phone] LIMITED EXAM,ESTAB PAT. [facility], [address] [place], [address], [place] tel:[phone] [facility] hematuria (chief complaint)HCM (chief complaint) Post-menopaus al bleedingOther abnormal findings in urineAllergic rhinitis, unspecified allergic rhinitis trigger, unspecified rhinitis seasonalityHy pertensionHyp othyroidism, unspecified 7 Brittatwyla Mandie. [address] [place], [id number], [place]. tel:[phone] LIMITED EXAM,ESTAB PAT. [facility], [address] [place], [address], [place] tel:[phone] [facility] Thyroid problems (chief complaint)hyp ertension (chief complaint)hyp erlipidemia (chief complaint)Med refills (chief complaint) HypertensionH ypothyroidism , unspecifiedHy perlipidemia, unspecifiedAl lergic rhinitis, unspecified allergic rhinitis trigger, unspecified rhinitis seasonalityPr ediabetes 7 Shannan Dougherty. [address] [place], [place], [id number], [place]. tel:[phone] LIMITED EXAM,ESTAB PAT. [facility], [address] [place], [address], [place] tel:[phone] [facility] Cough (chief complaint) Viral upper respiratory tract infection 7 Sidra Hahn. [address] [place] [address], [id number], [place]. tel:[phone] LIMITED EXAM,ESTAB PAT. [facility], [address] [place], [address], [place] tel:[phone] [facility] Burning on urination (chief complaint) DysuriaHyperl ipidemia, unspecifiedHy pothyroidism, unspecifiedHy pertension 0 7 Stephen Forbes. [address] [place], [place], [id number], [place]. tel:[phone] LIMITED EXAM,ESTAB PAT. [facility], [address] [place], [address], tel: [phone] [facility] hypertension (chief complaint)hyp erlipidemia (chief complaint)hyp othyroidism (chief complaint)All ergies (chief complaint)Diz ziness (chief complaint)dep ressed mood (chief complaint) Healthcare maintenanceEs sential (primary) hypertensionH yperlipidemia , unspecifiedAl lergic rhinitis, unspecified allergic rhinitis trigger, unspecified rhinitis seasonalityHy pothyroidism, unspecifiedAd justment disorder with depressed mood 7 Resident Internal Med. . LIMITED EXAM,ESTAB PAT. [facility], [address] [place], [address], tel: [phone] [facility] F/U TSH (chief complaint) Essential (primary) hypertensionH ypothyroidism , unspecifiedHe althcare maintenance 7 Resident Internal Med. . LIMITED EXAM,ESTAB PAT. [facility], [address] [place], [address], tel: [phone] [facility] depression (chief complaint)Thy roid problems (chief complaint)All ergies (chief complaint) Hypothyroidis m, unspecifiedAl lergic rhinitisPredi abetesHyperli pidemia, unspecifiedDe ntal cariesEssenti al (primary) hypertension 7 Resident Internal Med. . LIMITED EXAM,ESTAB PAT. [facility], [address] [place], [address], tel: [phone] [facility] Cough (chief complaint)Dep ression (chief complaint) Essential (primary) hypertensionA llergic rhinitis, unspecified allergic rhinitis trigger, unspecified rhinitis seasonalityPr ediabetesBere avementHypoth yroidism, unspecifiedHe althcare maintenance 7 Resident Internal Med. . [facility], [address] [place] [address], [address], tel: [phone] [facility] No Information 7 [facility]. [address] [place], [address], [place]. [phone] INTERMED EXAM,ESTAB PAT [facility], [address] [place], [address], [place] tel:[phone] [facility] Cough (chief complaint) Allergic rhinitisEssen tial (primary) hypertensionH ypothyroidism , unspecifiedIm paired fasting glucoseEncoun ter for screening for cancer of colonOverweig htHyperlipide stuart, unspecifiedVi ral URIOther viral agents as the cause of diseases classified elsewhereHeal thcare maintenance 7 Resident Internal Med. . [facility], [address] [place], [address], [place] tel:[phone] [facility] No Information 7 [facility]. [address] [place], [address], [place]. [phone] [facility], [address] [place], [address], [place] tel:[phone] [facility] No Information 6 [facility]. [address] [place], [address], [place]. [phone] LIMITED EXAM,ESTAB PAT. [facility], [address] [place], [address], [place] tel:[phone] [facility] hypertension (chief complaint)RX (chief complaint)TB Assesment (chief complaint) Hypothyroidis m, unspecifiedEs sential (primary) hypertensionA llergic rhinitis 6 Shannan Dougherty. [address] [place] [address], [id number], [place]. tel:[phone] LIMITED EXAM,ESTAB PAT. [facility], [address] [place], [address], [place] tel:[phone] [facility] Musculoskelet al pain (chief complaint)hyp ertension (chief complaint)Med refills (chief complaint) Impingement syndrome of left shoulderHypot hyroidism, unspecifiedIm paired fasting glucose 6 Shannan Dougherty. [address] [place], [place], [id number], [place]. tel:[phone] LIMITED EXAM,ESTAB PAT. 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 tel:[phone] [facility], [address] [place] [address], [address], [place] tel:[phone] [facility] No Information 5 Shannna Jordan [address] [place], [place], [id number], [place]. tel:[phone] INTERMED EXAM,ESTAB PAT [facility], [address] [place] [address], [address], [place] tel: [phone] [facility] hypertension (chief complaint)Thy roid problems (chief complaint)All ergies (chief complaint)Wan ts flu shot (chief complaint) Encntr screen for dis of the bld/bld-form org/immun mechnsmEssent ial (primary) hypertensionH ypothyroidism , unspecifiedEn counter for screening mammogram for cancer of breastEncount er for screening for cancer of colonImpaired fasting glucose 5 Shannan Jordan [address] [place], [place], [id number], [place]. [phone] [facility], [address] [place] [address], [address], [place] tel: [phone] [facility] No Information 5 Shannan Dougherty. [address], [place], [id number], [place]. tel:[phone] [facility], [address] [place], [address], [place] tel: [phone] [facility] No Information 5 [facility]. [address] [place], [address], [place]. tel:[phone] LIMITED EXAM,ESTAB PAT. [facility], [address] [place], [address], [place] tel:[phone] [facility] Hypothyroidis m (chief complaint)hyp ertension (chief complaint)All ergies (chief complaint) No Information 5 Resident Internal Med. . [facility], [address] [place], [address], [place] tel:[phone] [facility] Hypothyroidis m 5 Lamp Magy. [address] [place], [id number], [place]. tel:[phone] LIMITED EXAM,ESTAB PAT. [facility], [address] [place], [address], [place] tel:[phone] [facility] hypertension (chief complaint)Hyp othyroidism (chief complaint) Hypertension, BenignHypothy roidismOther and unspecified hyperlipidemi aIMPAIRED FASTING GLUCOSE 4 Shannan Dougherty. [address], [place], [id number], [place]. tel:[phone] [facility], [address] [place], [address], [place] tel:[phone] [facility] hypertension (chief complaint)Thy roid problems (chief complaint) No Information 3 0 4 Resident Internal Med. . [facility], [address] [place], [address], [place] tel:[phone] [facility] No Information 4 No Information LIMITED EXAM,ESTAB PAT. [facility], [address] [place], [address], [place] tel:[phone] [facility] hypertension (chief complaint)hyp othyroidism (chief complaint)war ts (chief complaint) Viral warts, unspecifiedHy pothyroidismH ypertension, Benign 4 Shannan Jordan [address] [place] [address], [id number], [place]. tel:[phone] LIMITED EXAM,ESTAB PAT. [facility], [address] [place], [address], [place] tel:[phone] [facility] warts (chief complaint) Viral warts, unspecifiedHy pertension, Benign 4 Shannan Jordan [address] [place], [place], [id number], [place]. tel:[phone] LIMITED EXAM,ESTAB PAT. [facility], [address] [place], [address], [place] tel:[phone] [facility] thyroid problems (chief complaint)med refills (chief complaint)fol low up on lab test(s) (chief complaint) Hypertension, BenignHypothy roidismViral warts, unspecified 4 Shannan Jordan [address] [place], [place], [id number], [place]. tel:[phone] LIMITED EXAM,ESTAB PAT. [facility], [address] [place], [address], [place] tel:[phone] [facility] thyroid problems (chief complaint)all ergies (chief complaint) Hypothyroidis m 4 Shannan Jordan [address] [place] [address], [id number], [place]. tel:[phone] LIMITED EXAM,ESTAB PAT. [facility], [address] [place], [address], [place] tel:[phone] [facility] thyroid problems (chief complaint) OverweightHyp othyroidismIM PAIRED FASTING GLUCOSEHypert ension, BenignOther and unspecified hyperlipidemi a 3 Shannan Dougherty. [address], [place], [id number], [place]. tel:[phone] [facility], [address] [place], [address], [place] tel: [phone] [facility] No Information 3 [facility]. [address] [place], [address], [place]. tel:[phone] [facility], [address] [place], [address], [place] tel: [phone] [facility] No Information 2 [facility]. [address] [place], [address], [place]. tel:[phone] INTERMED EXAM,ESTAB PAT [facility], [address] [place], [address], [place] tel: [phone] [facility] No Information 2 No Information LIMITED EXAM,ESTAB PAT. [facility], [address] [place], [address], [place] tel: [phone] [facility] No Information 1 Resident Internal Med. . LIMITED EXAM,ESTAB PAT. [facility], [address] [place], [address], [place] tel: [phone] [facility] No Information 1 Resident Internal Med. . LIMITED EXAM,ESTAB PAT. [facility], [address] [place], [address], [place] tel:[phone] [facility] No Information 1 Resident Family Medicine. . LIMITED EXAM,ESTAB PAT. [facility], [address] [place], [address], [place] tel:[phone] [facility] No Information 1 Resident Internal Med. . [facility], [address], [place], [address], [place] tel:[phone] TRANSCRIBED No Information 0 No Information Family [...] administered Note: Imported from [facility]. From Provider: [facility]-. Injected by: AUSTEN BOB MA. ; Source: Source Unspecified Influenza administered Note: Imported from [facility]. From Provider: [facility]-. Injected by: DOMINGA GOMEZ MA. ; Source: Source Unspecified Influenza administered Note: Imported from [facility]. From Provider: [facility]-. Injected by: ADELAIDA CHIANG RN. ; Source: Source Unspecified Tdap administered Note: Imported from [facility]. From Provider: [facility] [place]. Injected by: Sulema Stearns MA. ; Source: Source Unspecified Influenza administered Note: Imported from [facility]. From Provider: [facility] [place]. Injected by: Nicol Gomez MA. ; Source: Source Unspecified Novel [id number], all formulations administered Note: Imported from [facility]. From Provider: [facility] [place]. Injected by: Nicol Gomez MA. ; Source: Source Unspecified Novel [id number], all formulations administered Note: Imported from [facility]. From Provider: [facility] [place]. Injected by: Nicol Gomez MA. ; Source: Source Unspecified Payers Payer name Insurance type Covered constitution party ID Authoriza tion(s) Medicare PPS MB [id number] BS Promise Medicare Secondary CI [id number] Medicare PPS MB [id number] BS Promise Medicare Secondary CI [id number] Medicare PPS MB [id number] BS Promise Medicare Secondary CI [id number] [facility] BS Promise Medi-Arleen MC [id number] MediCal Managed Care Interim Rate MC [id number] HCLA BS Promise Medi-Arleen MC [id number] HCLA LA Care Medi-Arleen CI [id number] Med[employer] Managed Care Interim Rate MC [id number] Social History Type Description Quantity Date [...] Of Treatment Date Type Action Status Goal Colonoscopy. Due on due Goal Dental [...] () due Goal Dental exam. Due on due [...] u se screening. Due on due Goal Unhealthy drug u [...] Goal Retinal Screening. Due on due Goal FIT. Due [...] exam. Due on due Goal Zoster vaccine () [...] Colonoscopy. Due on due Goal Zoster vaccine () due Goal Lifestyle education regardin g diet completed Goal Zoster vaccine () due Goal Colonoscopy. [...] Lipid panel. Due on 028 due Goal Tdap due Goal FIT-DNA. Due on due Goal IGRA. Due on due Goal Lifestyle education regardin g diet completed Goal PPD (TST). Due on 3 due Goal TB Risk Assessment. Due on A due Goal Zoster vaccine ( 2nd). Due on due Goal DEXA Scan. Due on 3 due Goal Td vaccine. Due on 23 due Goal Alcohol Screening. Due on due Goal IGRA. Due on due Goal FIT. Due on due Goal Mammogram. Due on 4 due Goal Lipid panel. Due on due Goal Depression Scree jg. Due on due Goal Domestic Violenc e Screen. Due on due Goal Tdap due Goal Zoster vaccine () due Goal Dental exam. Due on due [...] () due Goal DEXA Scan. Due on due [...] () due Goal Dental exam. Due on due [...] (1st) due Goal PPD (TST). Due on 2 due Goal FIT-DNA. Due on due Goal IGRA. Due on due Goal CT-Colonography. Due on due Goal TB Risk Assessment. Due on A due Goal Depression Scree jg. Due on due Goal Tdap due Goal Td vaccine. Due on due Goal Mammogram. Due on due Goal Lipid panel. Due [...] due Goal Mammogram. Due on due Goal Pneumococcal vac cine. [...] 1 due Goal DEXA Scan. Due on due [...] due Goal PAP. Due on due Goal Alcohol Screening. Due [...] 011 due Goal Lipid panel. Due on 025 due Goal Pneumococcal vac cine. Due on due Goal DEXA Scan. Due on 0 due Goal Lipid panel. Due on 024 [...] PPD (TST). Due on 0 due Goal TB Risk [...] g diet completed Goal Colonoscopy. Due on 011 due Goal [...] PPD (TST). Due on 8 due Goal PPD (TST). Due on 8 due Goal Mammogram. Due on 9 due Goal IGRA. Due on due Goal Colonoscopy. Due on 011 due Goal Domestic Violenc e Screen. Due on due Goal Pap/HPV testing. Due on due Goal Dental exam. Due on 018 due Goal Alcohol Screening. Due on due [...] PPD (TST). Due on 7 due Goal Tdap due Goal Zoster vaccine due Goal Pap/HPV testing. Due on due [...] treat ordered Referral Ordered: referred to outside Child Protective Services Specialist needs new glasses (related to Low vision, both eyes) ordered Referral Ordered: referred to outside dental referrals poor dentition (related to Dental caries) ordered Referral Ordered: referred to [facility] Child Protective Services Specialist (related to Essential (primary) hypertension) ordered Referral Ordered: referred to [facility] check up (related to Essential (primary) hypertension) ordered Appointment Celia Hay BOOKED Future Order: Lab Order ILA MENARD ([id number]), Appointment on: , Sent on: Sent Future Order: Lab Order Ila MENARD ([id number]), Sent on: Sent History Of Present Illness [...] GIVEN TO TELEPHONE COMMUNICATION. VISIT CONDUCTED IN [facility] WITHOUT USE OF TRIPOLER BY PATIENT CONSENT.EST PT WITH COUGH, SORE [...] Risk factors inc lude age over 50. Hypothyroidism per pt states is asking for blood work today Eye problems Onset: 2 Days. T he severity of the problem is moderate. The problem has not changed. The symptoms are intermittent. Discomfort is described as dull pain and itchy. Patient reports no discharge. [facility] please sent flu shot to [facility] pharmacy offered pt TDAP, PCV-13 and Shingrix pt declines todayMammo-pt is due please order referral depression This is an initi al visit. Vaginal itching [facility] pt requesting la bs for TSH recurrent vertigo's Thyroid problems Risk factors in clude female and history of hypothyroidism. Additional information: Hypothyroidism medication refill. [facility] 1. Mammogram ref erral Ear Pain (comments) endorses dialex ziness with ear pain and also feels she [...] both ears. Additional information: c/o ear discomfort. medication Pt needs medicat ion refills hypothyroidism Per pt here for follow up [...] include rectal bleeding. Additional information: KIT ordered. HCM Pt due for Tdap & Zoster [...] far away. Saw an eye doctor in [place] and wants to go to another appt [...] include fever. Additional information: vaccinated. went to [place] 3[place]4 months ago. has omeprazole has not [...] weeks ago when she was returnng from [place], negative. Cough Thyroid problems Risk factors in clude female and history of hypothyroidism. Additional information: Hypothyroidism. hypertension hyperlipidemia Risk factors inc lude age over 50. colon cancer screening Prior scr eening: fecal occult blood testing. Denies risk factors. There are no associated symptoms. Additional information: No family history of colon cancer. HCM Med refillsDue f or Tdap, shingrix and [id number] vaccines. Pt declines all today. Allergies Symptoms are con stant, moderate and worsening. Additional information: Bothering her latelyhas not had spray as had to purchasehas had allergies off and on for yrs. immunization pt here for flu vaccineverified by [...] NSAID/ASA use and Fit test ordered today. 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 . Follow up on lab test(s) hematuria The symptoms beg an 15 days ago. Was seen at [place] [facility] per patient on 03/08/2017-03/09/2017 . patient does not recall actual date. Went in Had noticed drops of bloodin her underwear. [place] that it was in her urine. States [...] already taking Lipitor 40mg daily. Thyroid problems Risk factors in clude female. Additional information: F/U- Thyroid check and med refill. depression (comments) Sx well co ntrolled at this time. Under stress while caring for . depression The patient repo rts functioning as [...] TB Asses ment, patient was born in [facility], patient states she did [...] are no associated symptoms. Wants flu shot Hypothyroidism hypertension Additional infor mation: Pt requests a refill on HTN Rx. Allergies Additional infor mation: Pt requests a refill on Rx. hypertension The severity has been described as [...] to Hyperlipidemia, unspecified Seeing dentistry Related to [place] al decay Cont lifestyle modif ications On [...] Cont levothyroxine Related to Hy pothyroidism, unspecified -Sent neomycin-HC ot ip drops -Complete amox course -ER precautions given -Will follow up in person at next visit Related to Acute otitis externa of right ear, unspecified type Amox x7 days Related to Acute tonsillitis, unspecified etiology OTIC ABX. REEXAMIN AT F/U 05/21/24 Related [...] improvedCont stat in Related to Hyperlipidemia, unspecified Last pap: 2015 with normal results. [...] Related to Prediabetes Seeing dentistry Related to [place] al decay - Referral to vascul ar surgery placed [...] On atorva 40 qhs Related to Prediabetes Repeated labs today Refilled levothyroxine Related to Hypothyroidism, unspecified Last pap: 2015 with normal results [...] varicose veins of both lower extremities - Metoprolol switche d to coreg 6.25 BID - health educator consuling at prior visits. Now has cuff- advised pt to check BP twice weekly Related to Essential (primary) hypertension Refilled statin Related to Hyper lipidemia, unspecified refilled levothyroxine Related t o Hypothyroidism, [...] disease, unspecified whether esophagitis present COVID negative revmaxiom box try omeprazoleper pt dry cough, on [...] Dr Lela fitch to Cervical mass send records from ER visit with referral [...] in 06/2015 Related to Healthcare maintenance - FIT testing Related to Encou nter [...] Mental Status Date Cognitive Assessment Orientation - Sultan ed to time, place, person, situation. Patient Care Teams Name Effective Dates (sta rt - stop) Status Members RONAK Stuart - active Lily Hampton.Internal Med Resident.(Lead)
== END 2024-09-05 10:37 | disposition home or self-care (01) ==
LOC: HO.HMCH 09:53
PROVIDERS: PCP Internal Medicine; Visit Provider Internal Medicine
DX: M25.551 Pain in right hip (principal); M25.552 Pain in left hip; E66.9 Obesity, unspecified; Z68.41 Body mass index [BMI] 40.0-44.9, adult; R29.898 Other symptoms and signs involving the musculoskeletal system; L50.9 Urticaria, unspecified; J45.40 Moderate persistent asthma, uncomplicated; K21.9 Gastro-esophageal reflux disease without esophagitis; G47.00 Insomnia, unspecified; F41.9 Anxiety disorder, unspecified; F33.9 Major depressive disorder, recurrent, unspecified

== ENCOUNTER 2024-09-05 09:52 | Outpatient (REF) | payer OTHER, SELFPAY ==
--- NOTE | ~2024-09-05 | XR_ITS ---
EXAMINATION: XR BILATERAL HIPS WITH AP PELVIS CLINICAL INFORMATION: M25.552 - Pain in left hip COMPARISON: Right hip x-ray dated February 17, 2022. Left hip x-ray dated December 01, 2017. TECHNIQUE: AP view of the pelvis and single views of each hip were obtained. FINDINGS: Sclerosis along the articular surface of the acetabulum and femoral head with associated subchondral cyst formation. No gross joint space narrowing at either coxofemoral joint. No acute cortical disruption or malalignment. No lytic or blastic lesions. There is a metallic reservoir overlapping the right iliac crest/gluteal region with electrode and in at the right hemisacrum/S3 level. XR/XR hips IMMANUEL min 3V IMPRESSION: Mild osteoarthrosis both coxofemoral joint. Overall no gross change. Electronically signed by: Kayden Hernandez MD 09/05/2024 11:27 AM EDT
--- OUTSIDE RECORDS SUMMARY | 2024-09-05 12:19 | XMS_ITS | Continuity of Care Document ---
Author Organization [employer] Address [address] [place] [address] Phone Care Team Providers Care Acid Dumper Name Role Phone Leonor Yousif DMD Unavailable [...] Diagnoses Date Provider Providers Copied on Encounter [employer], [address] [place], [place], [id number], [place] tel:[phone] [facility] Encounter for dental examination and cleaning with abnormal findingsTobacco abuse counselingOther specified counselingRisk for dental caries, highDietary counseling and surveillance David Galvez. [address], [place], [id number], [place]. tel:[phone] Family History Family Member Type Diagnosis Age At Onset No Information Payers Payer name Insurance type Covered constitution party ID Omid otero(s) Dental Medi-Remi OP [id number] DENTICAL [id number] Social History Type Description Quantity Date Captured [...]
--- OUTSIDE RECORDS SUMMARY | 2024-09-05 12:20 | XMS_ITS | Clinical Summary ---
Author Organization [facility] Location [place] [address] Phone Care Team Providers Care Plant Sciences Professor Name Role Phone Curt Falk MD Primary Care Provider [phone] Allergies Active Allergy Reactions Criticality Noted Date [...] Chronic renal impairment, st age 2 (moderate) ([facility] V24, [facility] V28) 08/27/2024 Asthma 08/27/2024 Encounters Date Type Department Care Team Description 09/05/2024 7:39 AM EDT - 09/05/2024 8:03 AM EDT Emergency [facility] Emergency [address] [place] [address] Urticaria (Primary Dx); Rash Discharge Disposition: Home or Self Care 08/27/2024 12:00 PM EDT - 08/27/2024 1:30 PM EDT Surgery [facility] OR [address] [place] [phone] Quang Hurd MD SACRAL NEUROMODULATOR STAGE 2 [13214 (CPT??) +1 more] 08/27/2024 11:55 AM EDT Anesthesia Event [facility] OR [address] [place] [phone] Leeann Anders MD 08/27/2024 9:15 AM EDT - 08/27/2024 1:30 PM EDT Hospital Encounter [facility] OR [address] [place] [phone] Quang Hurd MD Discharge Disposition: Home or Self Care 08/15/2024 9:07 AM EDT Anesthesia Event [facility] [place] [address] [place] [phone] Dennis Maldonado DO 08/15/2024 9:00 AM EDT - 08/15/2024 10:30 AM EDT Surgery [facility] [place] [address] [place] [phone] Quang Hurd MD SACRAL NEUROMODULATOR STAGE 1 [93457 (CPT??) +1 more] 08/15/2024 6:53 AM EDT - 08/15/2024 10:50 AM EDT Hospital Encounter [facility] Main OR [address] [place] [address] Quang Hurd MD Discharge Disposition: [...] Hyperlipidemia Hypertension CHF (congestive heart failur e) ([facility] V24, [facility] V28) Shortness of breath Chronic kidney disease [...] this topic Medical Devices Implanted Type Area Grid Inspector Device Identifier Shelf Expiration Date Model / Serial / Lot Joints Knee Joints Knee Right: Knee Cable Ext Interstim 4.32mm - Sn/A - [id number] Implanted:Qty: 1 on 08/15/2024 by Quang Hurd MD at [facility] Neurostim N/A: Sacrum [employer] 09/12/2025 [id number] / N/A / [id number] Kit Mri Lead Interstim 4.32-28cm - Sn/A - [id number] Implanted:Qty: 1 on 08/15/2024 by Quang Hurd MD at [facility] Neurostim N/A: Sacrum [employer] 10/09/2025 [id number] / N/A / [id number] System Interstim X Recharge-Free F/Bladder/Valentina l Cntrl - [id number] - [id number] Implanted:Qty: 1 on 08/27/2024 by Quang Hurd MD at [facility] Neurostim N/A: Back [employer] 06/15/2025 [id number] / [id number] / N/A Procedures Procedure Name Priority Date/Time Associated Diagnosis Comments AK ANALYSIS IMPLANTED NEUROSTIM PULSE GENERATOR SYSTEM COMPLEX/PROGRAMING 08/27/2024 11:55 AM EDT Overactive bladder Case Notes C-ARM, [employer] AK INS/REPL CONRAD/SACRAL/GASTRIC NSTIM PG/REC REQ POCKET CREATION/CONN 08/27/2024 11:55 AM EDT Overactive bladder Case Notes C-ARM, [employer] XR PELVIS 1-2 VIEWS Routine 08/15/2024 9 :42 AM EDT AK ANALYSIS IMPLANTED NEUROSTIM PULSE GENERATOR SYSTEM COMPLEX/PROGRAMING 08/15/2024 9:07 AM EDT Overactive bladder Case Notes C-ARM, [employer] AK PERC IMPLANTATION NSTIM ELECTRODE ARRAY SACRAL NERVE [...] Signed Date: 08/15/2024 10:35 ET Workstation ID: [id number] Transcribed By: Self Edit Transcribed Date: 08/15/2024 [...] Signed Date: 08/15/2024 10:35 ET Workstation ID: [id number] Transcribed By: Self Edit Transcribed Date: 08/15/2024 10:32 ET us Quang Hurd MD IMG XR PROCEDURES Fi nal Result * ECG 12 lead - Procedural (No Charge) (08/15/2024 7:24 AM EDT) Ventricular Rate ECG 82 BPM GEMUSE Atrial Rate 82 BPM GEMUSE P-R Interval 124 ms GEMUSE QRS Duration 70 ms GEMUSE Q-T Interval 338 ms GEMUSE QTc 394 ms GEMUSE P Wave Lawrence 58 degrees GEMUSE R Lawrence 20 degrees GEMUSE T Lawrence 42 degrees GEMUSE ECG Interpretation Normal sinus rhythm Nonspecific ST and T wave abnormality Abnormal ECG When compared with ECG of 14-JUL-2023 00:18, QT has shortened Confirmed by Marilyn STEIN JAMES ([id number]) on 08/15/2024 4:44:39 PM GEMUSE 08/15/2024 7:24 AM EDT 08/15/2024 4:44 PM EDT us Dennis Maldonado DO ECG ORDERABLES Final Result GEMUSE from Last 3 Months Insurance [facility] [employer] Member Subscriber Plan / Payer (Ef fective 2024-Present) Name:Celia Marquez Relation to Subscriber:Self Name:Celia Marquez Payer ID:[id number] Group ID:Not on file Type:Not on file Address: [place] [address] [address] [phone] Care Teams Plant Sciences Professor Relationship Specialty Start Date End Date Curt Falk MD [address] [place] [address] [address] WILLIAM Barrera PCP - General 07/16/21
--- OUTSIDE RECORDS SUMMARY | 2024-09-05 12:20 | XMS_ITS | Continuity of Care Document ---
Author Organization [facility] Address [address] [place] [address] Phone Care Team Providers Care Recreational Therapist Name Role Phone Resident MD, Internal Med [...] twice a day with food - Active nvwwszgk-jmdnbdrvc-y ydrocort 3.5 mg/mL-10,000 unit/mL-1 % ear solution [...] With Patient And O r Family M [facility] PT Psychotherapy, 30 Min With Patient And O r Family M [facility] PT Non-Billable Phone Consultation Psychotherapy, 30 Min With Patient And O r Family M [facility] PT Psychotherapy, 45 Min With Patient [...] With Patient And O r Family M [facility] PT VENIPUNCTURE LIMITED EXAM,ESTAB PAT. Psychotherapy, 30 Min With Patient And O r Family M [facility] PT HEMOGLOBIN (HGB) INTERMED EXAM,ESTAB PAT [...] mplete CHOLESTEROL, TOTAL 23:48:29 PendingIncomp lete Performed by:[facility] (EN)[address] [place] [address] Panel Description: LIPID PANEL, STANDARD PendingInco mplete CHOLESTEROL, TOTAL 01:24:43 PendingIncomp lete Performed by:[facility] (EN)[address] [place] [address] Panel Description: LIPID PANEL, STANDARD Final CHOLESTEROL, TOTAL 09:33:46 169 mg/dL <200 N Final Performed by:[facility] (EN)[address] [place] [address] Panel Description: LIPID PANEL, STANDARD Final CHOLESTEROL, TOTAL 12:30:11 169 mg/dL <200 N Final Performed by:[facility] (EN)[address] [place] [address] Panel Description: Bacteria identified in Urine by Culture PendingInco mplete CULTURE 23:48:29 SEE NOTE PendingIncomp lete Performed by:[facility] (EN)[address] [place] [address] Panel Description: Bacteria identified in Urine by Culture PendingInco mplete CULTURE 01:24:43 SEE NOTE PendingIncomp lete Performed by:CynnyHam Magana (EN)[address] [place] [address] Panel Description: Bacteria identified in Urine by Culture PendingInco mplete CULTURE 09:33:46 SEE NOTE PendingIncomp lete Performed by:CynnyHam Magana (EN)[address] [place] [address] Panel Description: Bacteria identified in Urine by Culture Final CULTURE, URINE, ROUTINE 12:30:11 SEE NOTE Final CULTURE, URINE , ROUTINE Micro Number: [id number] Test Status: Final Specimen Source: Urine Specimen Quality: Adequate Result: Less than 10,000 CFU/mL of single Gram positive organism isolated. No further testing will be performed. If clinically indicated, recollection using a method to minimize contamination, with prompt transfer to Urine Culture Transport Tube, is recommended.Per formed by:CynnyHam Magana (EN)[address] [place] [address] Panel Description: LIPID PANEL, STANDARD PendingInco mplete HDL CHOLESTEROL 23:48:29 PendingIncomp lete Performed by:CynnyHam Magana (EN)[address] [place] [address] Panel Description: LIPID PANEL, STANDARD PendingInco mplete HDL CHOLESTEROL 01:24:43 PendingIncomp lete Performed by:CynnyHam Magana (EN)[address] [place] [address] Panel Description: LIPID PANEL, STANDARD Final HDL CHOLESTEROL 09:33:46 46 mg/dL > OR = 50 L Final Performed by:CynnyHam Magana (EN)[address] [place] [address] Panel Description: LIPID PANEL, STANDARD Final HDL CHOLESTEROL 12:30:11 46 mg/dL > OR = 50 L Final Performed by:CynnyHam Magana (EN)[address] [place] [address] Panel Description: LIPID PANEL, STANDARD PendingInco mplete TRIGLYCERIDE S 23:48:29 PendingIncomp lete Performed by:CynnyHam Magana (EN)[address] [place] [address] Panel Description: LIPID PANEL, STANDARD PendingInco mplete TRIGLYCERIDE S 01:24:43 PendingIncomp lete Performed by:CynnyHam Magana (EN)[address] [place] [address] Panel Description: LIPID PANEL, STANDARD Final TRIGLYCERIDE S 09:33:46 105 mg/dL <150 N Final Performed by:CynnyHam Magana (EN)[address] [place] [address] Panel Description: LIPID PANEL, STANDARD Final TRIGLYCERIDE S 12:30:11 105 mg/dL <150 N Final Performed by:CynnyHam Magana (EN)[address] [place] [address] Panel Description: LIPID PANEL, STANDARD PendingInco mplete LDL-CHOLESTE ROL 23:48:29 PendingIncomp lete Performed by:CynnyHam Magana (EN)[address] [place] [address] Panel Description: LIPID PANEL, STANDARD PendingInco mplete LDL-CHOLESTE ROL 01:24:43 PendingIncomp lete Performed by:CynnyHam Magana (EN)[address] [place] [address] Panel Description: LIPID PANEL, STANDARD Final LDL-CHOLESTE [...] LDL-C. Jak CRAWFORD et al. ROHITH. 2013;310(19): 0538-6364 (http://educati on.dreamsha.re.BuzzTable/faq/FA Q164)Performed by:[facility] saman Magana (EN)[address] [place] [address] Panel Description: LIPID PANEL, STANDARD Final LDL-CHOLESTE [...] LDL-C. Jak CRAWFORD et al. ROHITH. 2013;310(19): 3159-4899 (http://educati on.dreamsha.re.BuzzTable/faq/FA Q164)Performed by:[facility] saman Magana (EN)[address] [place] [address] Panel Description: LIPID PANEL, STANDARD PendingInco mplete CHOL/HDLC RATIO 23:48:29 PendingIncomp lete Performed by:[facility] saman Magana (EN)[address] [place] [address] Panel Description: LIPID PANEL, STANDARD PendingInco mplete CHOL/HDLC RATIO 01:24:43 PendingIncomp lete Performed by:[facility] saman Magana (EN)[address] [place] [address] Panel Description: LIPID PANEL, STANDARD Final CHOL/HDLC RATIO 09:33:46 3.7 (calc) <5.0 N Final Performed by:[facility] (EN)[address] [place] [address] Panel Description: LIPID PANEL, STANDARD Final CHOL/HDLC RATIO 12:30:11 3.7 (calc) <5.0 N Final Performed by:[facility] (EN)[address] [place] [address] Panel Description: LIPID PANEL, STANDARD PendingInco mplete NON HDL CHOLESTEROL 23:48:29 PendingIncomp lete Performed by:[facility] Iz[facility] (EN)[address] [place] [phone] Panel Description: LIPID PANEL, STANDARD PendingInco mplete NON HDL CHOLESTEROL 01:24:43 PendingIncomp lete Performed by:CynnyHam Magana (EN)[address] [place] [address] Panel Description: LIPID PANEL, STANDARD Final NON HDL CHOLESTEROL 09:33:46 123 mg/dL (calc) <130 N Final For patients with diabetes plus 1 major ASCVD risk factor, treating to a non-HDL-C goal of <100 mg/dL (LDL-C of <70 mg/dL) is considered a therapeutic option.Performe d by:CynnyHam Magana (EN)[address] [place] [address] Panel Description: LIPID PANEL, STANDARD Final NON HDL CHOLESTEROL 12:30:11 123 mg/dL (calc) <130 N Final For patients with diabetes plus 1 major ASCVD risk factor, treating to a non-HDL-C goal of <100 mg/dL (LDL-C of <70 mg/dL) is considered a therapeutic option.Performe d by:CynnyHam Magana (EN)[address] [place] [phone] Panel Description: URINALYSI S, COMPLETE W/REFLEX TO CULTURE Final COLOR 23:48:29 YELLOW YELLOW N Final Performed by:Cyn[facility]Ham Magana (EN)[address] [place] [phone] APPEARANCE 23:48:29 CLEAR CLEAR N Final Performed by:[facility]yn[facility]Ham Magana (EN)[address] [place] [address] SPECIFIC GRAVITY 23:48:29 1.016 1.001-1.03 5 N Final Performed by:CynnyHam Magana (EN)[address] [place] [address] PH 23:48:29 7.0 5.0-8.0 N Final Performed by:CynnyHam Magana (EN)[address] [place] [address] GLUCOSE 23:48:29 NEGATIVE NEGATIVE N Final Performed by:CynnyHam Magana (EN)[address] [place] [phone] BILIRUBIN 23:48:29 NEGATIVE NEGATIVE N Final Performed by:CynnyHam Magana (EN)[address] [place] [phone] KETONES 23:48:29 NEGATIVE NEGATIVE N Final Performed by:[facility] ([facility]Ham Magana (EN)[address] [place] [phone] OCCULT BLOOD 23:48:29 NEGATIVE NEGATIVE N Final Performed by:[facility] ([facility])-Ham Magana (EN)[address] [place] [phone] PROTEIN 23:48:29 NEGATIVE NEGATIVE N Final Performed by:CynnyHam Magana (EN)[address] [place] [phone] NITRITE 23:48:29 NEGATIVE NEGATIVE N Final Performed by:CynnyHam Magana (EN)[address] [place] [phone] LEUKOCYTE ESTERASE 23:48:29 1+ NEGATIVE A Final Performed by:CynnyHam Magana (EN)[address] [place] [phone] WBC 23:48:29 NONE SEEN /HPF < OR = 5 N Final Performed by:CynnyHam Magana (EN)[address] [place] [phone] RBC 23:48:29 NONE SEEN /HPF < OR = 2 N Final Performed by:CynnyHam Magana (EN)[address] [place] [phone] SQUAMOUS EPITHELIAL CELLS 23:48:29 6-10 /HPF < OR = 5 A Final Performed by:CynnyHam Magana (EN)[address] [place] [phone] BACTERIA 23:48:29 FEW /HPF NONE SEEN A Final Performed by:CynnyHam Magana (EN)[address] [place] [phone] HYALINE CAST 23:48:29 NONE SEEN /LPF NONE SEEN N Final Performed by:CynnyHam Magana (EN)[address] [place] [phone] NOTE 23:48:29 SEE COMMENT Final This urine was analyzed for the presence of WBC, RBC, bacteria, casts, and other formed elements. Only those elements seen were reported. Performed by:CynnyHam Magana (EN)[address] [place] [address] Panel Description: URINALYSI S, COMPLETE W/REFLEX TO CULTURE Final COLOR 01:24:43 YELLOW YELLOW N Final Performed by:CynnyHam Magana (EN)[address] [place] [address] APPEARANCE 01:24:43 CLEAR CLEAR N Final Performed by:CynnyHam Magana (EN)[address] [place] [address] SPECIFIC GRAVITY 01:24:43 1.016 1.001-1.03 5 N Final Performed by:CynnyHam Magana (EN)[address] [place] [phone] PH 01:24:43 7.0 5.0-8.0 N Final Performed by:CynnyHam Magana (EN)[address] [place] [phone] GLUCOSE 01:24:43 NEGATIVE NEGATIVE N Final Performed by:CynnyHam Magana (EN)[address] [place] [phone] BILIRUBIN 01:24:43 NEGATIVE NEGATIVE N Final Performed by:CynnyHam Magana (EN)[address] [place] [phone] KETONES 01:24:43 NEGATIVE NEGATIVE N Final Performed by:CynnyHam Magana (EN)[address] [place] [phone] OCCULT BLOOD 01:24:43 NEGATIVE NEGATIVE N Final Performed by:CynnyHam Magana (EN)[address] [place] [phone] PROTEIN 01:24:43 NEGATIVE NEGATIVE N Final Performed by:[facility])Artem Magana (EN)[address] [place] [address] NITRITE 01:24:43 NEGATIVE NEGATIVE N Final Performed by:[facility] ([facility])Artem Magana (EN)[address] [place] [address] LEUKOCYTE ESTERASE 01:24:43 1+ NEGATIVE A Final Performed by:[facility] ([facility])Artem Magana (EN)[address] [place] [address] WBC 01:24:43 NONE SEEN /HPF < OR = 5 N Final Performed by:[facility])Artem Magana (EN)[address] [place] [address] RBC 01:24:43 NONE SEEN /HPF < OR = 2 N Final Performed by:[facility] ([facility])Artem Magana (EN)[address] [place] [address] SQUAMOUS EPITHELIAL CELLS 01:24:43 6-10 /HPF < OR = 5 A Final Performed by:[facility] ([facility])Artem Magana (EN)[address] [place] [address] BACTERIA 01:24:43 FEW /HPF NONE SEEN A Final Performed by:[facility] ([facility])Artem Magana (EN)[address] [place] [address] HYALINE CAST 01:24:43 NONE SEEN /LPF NONE SEEN N Final Performed by:[facility] ([facility])Artem Magana (EN)[address] [place] [address] NOTE 01:24:43 SEE COMMENT Final This urine was analyzed for the presence of WBC, RBC, bacteria, casts, and other formed elements. Only those elements seen were reported. Performed by:[facility])Artem Magana (EN)[address] [place] [address] Panel Description: URINALYSI S, COMPLETE W/REFLEX TO CULTURE Final COLOR 09:33:46 YELLOW YELLOW N Final Performed by:CynnyHam Magana (EN)[address] [place] [address] APPEARANCE 09:33:46 CLEAR CLEAR N Final Performed by:CynnyHam Magana (EN)[address] [place] [address] SPECIFIC GRAVITY 09:33:46 1.016 1.001-1.03 5 N Final Performed by:CynnyHam Magana (EN)[address] [place] [address] PH 09:33:46 7.0 5.0-8.0 N Final Performed by:CynnyHam Magana (EN)[address] [place] [address] GLUCOSE 09:33:46 NEGATIVE NEGATIVE N Final Performed by:CynnyHam Magana (EN)[address] [place] [phone] BILIRUBIN 09:33:46 NEGATIVE NEGATIVE N Final Performed by:CynnyHam Magana (EN)[address] [place] [phone] KETONES 09:33:46 NEGATIVE NEGATIVE N Final Performed by:CynnyHam Magana (EN)[address] [place] [phone] OCCULT BLOOD 09:33:46 NEGATIVE NEGATIVE N Final Performed by:CynnyHam Magana (EN)[address] [place] [address] [phone] PROTEIN 09:33:46 NEGATIVE NEGATIVE N Final Performed by:CynnyHam Magana (EN)[address] [place] [phone] NITRITE 09:33:46 NEGATIVE NEGATIVE N Final Performed by:CynnyHam Magana (EN)[address] [place] [address] LEUKOCYTE ESTERASE 09:33:46 1+ NEGATIVE A Final Performed by:CynnyHam Magana (EN)[address] [place] [phone] WBC 09:33:46 NONE SEEN /HPF < OR = 5 N Final Performed by:CynnyHam Magana (EN)[address] [place] [phone] RBC 09:33:46 NONE SEEN /HPF < OR = 2 N Final Performed by:CynnyHam Magana (EN)[address] [place] [phone] SQUAMOUS EPITHELIAL CELLS 09:33:46 6-10 /HPF < OR = 5 A Final Performed by:[facility])Artem Magana (EN)[address] [place] [phone] BACTERIA 09:33:46 FEW /HPF NONE SEEN A Final Performed by:CynnyHam Magana (EN)[address] [place] [address] HYALINE CAST 09:33:46 NONE SEEN /LPF NONE SEEN N Final Performed by:[facility])Artem Magana (EN)[address] [place] [address] NOTE 09:33:46 SEE COMMENT Final This urine was analyzed for the presence of WBC, RBC, bacteria, casts, and other formed elements. Only those elements seen were reported. Performed by:CynnyHam Magana (EN)[address] [place] [phone] Panel Description: URINALYSI S, COMPLETE W/REFLEX TO CULTURE Final COLOR 12:30:11 YELLOW YELLOW N Final Performed by:[facility])Artem Magana (EN)[address] [place] [phone] APPEARANCE 12:30:11 CLEAR CLEAR N Final Performed by:[facility])Artem Magana (EN)[address] [place] [address] SPECIFIC GRAVITY 12:30:11 1.016 1.001-1.03 5 N Final Performed by:CynnyHam Magana (EN)[address] [place] [phone] PH 12:30:11 7.0 5.0-8.0 N Final Performed by:CynnyHam Magana (EN)[address] [place] [address] [phone] GLUCOSE 12:30:11 NEGATIVE NEGATIVE N Final Performed by:CynnyHam Magana (EN)[address] [place] [address] BILIRUBIN 12:30:11 NEGATIVE NEGATIVE N Final Performed by:[facility])Artem davison Izzy (EN)[address] [place] [phone] KETONES 12:30:11 NEGATIVE NEGATIVE N Final Performed by:[facility] ([facility])Artem davison Montgomery (EN)[address] [place] [phone] OCCULT BLOOD 12:30:11 NEGATIVE NEGATIVE N Final Performed by:[facility] ([facility])-Ham Magana (EN)[address] [place] [phone] PROTEIN 12:30:11 NEGATIVE NEGATIVE N Final Performed by:[facility] ([facility])Artem Magana (EN)[address] [place] [address] [phone] NITRITE 12:30:11 NEGATIVE NEGATIVE N Final Performed by:[facility])Artem Magana (EN)[address] [place] [phone] LEUKOCYTE ESTERASE 12:30:11 1+ NEGATIVE A Final Performed by:[facility])Artem davison Montgomery (EN)[address] [place] [address] [phone] WBC 12:30:11 NONE SEEN /HPF < OR = 5 N Final Performed by:[facility])Artem Magana (EN)[address] [place] [address] [phone] RBC 12:30:11 NONE SEEN /HPF < OR = 2 N Final Performed by:[facility])Artem Magana (EN)[address] [place] [address] [phone] SQUAMOUS EPITHELIAL CELLS 12:30:11 6-10 /HPF < OR = 5 A Final Performed by:[facility])Artem Magana (EN)[address] [place] [address] [phone] BACTERIA 12:30:11 FEW /HPF NONE SEEN A Final Performed by:[facility])Artem Magana (EN)[address] [place] [address] [phone] HYALINE CAST 12:30:11 NONE SEEN /LPF NONE SEEN N Final Performed by:CynnyHam Magana (EN)[address] [place] [address] NOTE 12:30:11 SEE COMMENT Final This urine was analyzed for the presence of WBC, RBC, bacteria, casts, and other formed elements. Only those elements seen were reported. Performed by:CynnyHam Magana (EN)[address] [place] [phone] Panel Description: REFLEXIVE URINE CULTURE Amanda l REFLEXIVE URINE CULTURE 23:48:29 SEE COMMENT Final CULTURE INDICATED - RESULTS TO FOLLOWPerformed by:CynnyHam Magana (EN)[address] [place] [address] Panel Description: REFLEXIVE URINE CULTURE Amanda l REFLEXIVE URINE CULTURE 01:24:43 SEE COMMENT Final CULTURE INDICATED - RESULTS TO FOLLOWPerformed by:[facility] ([facility])AbelardoHam Magana (EN)[address] [place] [address] Panel Description: REFLEXIVE URINE CULTURE Amanda l REFLEXIVE URINE CULTURE 09:33:46 SEE COMMENT Final CULTURE INDICATED - RESULTS TO FOLLOWPerformed by:[facility] ([facility])AbelardoHam Magana (EN)[address] [place] [phone] Panel Description: REFLEXIVE URINE CULTURE Amanda l REFLEXIVE URINE CULTURE 12:30:11 SEE COMMENT Final CULTURE INDICATED - RESULTS TO FOLLOWPerformed by:[facility] ([facility])AbelardoHam Magana (EN)[address] [place] [phone] Panel Description: TSH W/REFLEX TO FT4 PendingInco mplete TSH W/REFLEX TO FT4 23:48:29 PendingIncomp lete Performed by:CynnyHam Magana (EN)[address] [place] [address] Panel Description: TSH W/REFLEX TO FT4 Final TSH W/REFLEX TO FT4 01:24:43 2.36 mIU/L 0.40-4.50 N Final Performed by:CynnyHam Magana (EN)[address] [place] [address] Panel Description: TSH W/REFLEX TO FT4 Final TSH W/REFLEX TO FT4 09:33:46 2.36 mIU/L 0.40-4.50 N Final Performed by:CynnyHam Magana (EN)[address] [place] [address] Panel Description: TSH W/REFLEX TO FT4 Final TSH W/REFLEX TO FT4 12:30:11 2.36 mIU/L 0.40-4.50 N Final Performed by:CynnyHam Magana (EN)[address] [place] [address] Advance Directives Directive Yes / No Effective Date File Name No Information Encounters Encounter Description Practice Location Reason(s) For Visit Diagnoses Date Provider Providers Copied on Encounter INTERMED EXAM,ESTAB PAT [facility], [address] [place], [address], tel: [phone] [facility] HPI (chief complaint) Body mass index [BMI] 25.0-25.9, adultDental decayHyperlip idemia, unspecifiedHy pertensionHyp othyroidism, unspecifiedHe althcare maintenanceDy suriaOther abnormal findings in urine 5 Resident Internal Med. . [facility], [address] [place], [address], [place] tel: [phone] [facility] No Information [address], [id number], [place]. tel:[phone] LIMITED EXAM,ESTAB PAT. [facility], [address] [place], [address], [place] tel: [phone] [facility] HPI (chief complaint) Acute otitis externa of right ear, unspecified typeAcute coughAcute tonsillitis, unspecified etiologyHyper tensionHypoth yroidism, unspecifiedHy perlipidemia, unspecifiedSy mptomatic varicose veins of both lower extremitiesDe ntal decayPrediabe tesHealthcare maintenance Fe 5 Resident Internal Med. . LIMITED EXAM,ESTAB PAT. [facility], [address] [place], [address], [place] tel:[phone] Olive Louie [facility] Cough (chief complaint)MOSES (chief complaint)hpi (chief complaint) Encounter for screening, unspecifiedAc jasiel otitis externa of right ear, unspecified typeAcute coughAcute tonsillitis, unspecified etiology 5 Enrico Saravia. [address] [place], [id number], [place]. tel:[phone] [facility], [address] [place], [address], [place] tel:[phone] [facility] No Information 5 Noe Lopez. [address] [place], [place], [id number], [place]. [phone] [facility], [address] [place], [address], [place] tel:[phone] [facility] No Information 4 Noe Lopez. [address] [place], [place], [id number], [place]. [phone] INTERMED EXAM,ESTAB [facility], [address] [place], [address], [place] tel:[phone] [facility] hypertension (chief complaint)hcm (chief complaint)HPI (chief complaint) HypertensionH ypothyroidism , unspecifiedHy perlipidemia, unspecifiedSy mptomatic varicose veins of both lower extremitiesDe ntal decayPrediabe tesHealthcare maintenanceAl lergic rhinitisImpac jessie cerumen, unspecified earAcute otitis externa of right ear, unspecified type 4 Resident Internal Med. . LIMITED EXAM,ESTAB [facility]. [facility], [address] [place], [address], [place] tel:[phone] [facility] HTN F/u (chief complaint) Body mass index [BMI] 28.0-28.9, adultHyperten sara 4 Resident Internal Med. . INTERMED EXAM,[facility], [address] [place], [address], tel:[phone] [facility] hypertension (chief complaint)thy roid (chief complaint)HCM (chief complaint)hpi (chief complaint) Hypothyroidis m, unspecifiedHy perlipidemia, unspecifiedEs sential (primary) hypertensionS ymptomatic varicose veins of both lower extremitiesHe althcare maintenanceBr east screeningOste oporosis screeningEnco unter for immunizationD ental decayPrediabe lui 4 Resident Internal Med. . [facility], [address] [place], [address], tel: [phone] [facility] Counseling, unspecified 3 Health Education. . [facility], [address] [place] [address], [address], tel:[phone] [facility] Counseling, unspecified 3 Health Education. . INTERMED EXAM,[facility], [address] [place], [address], tel:[phone] [facility] varicose veins (chief complaint) Symptomatic varicose veins of both lower extremitiesEs sential (primary) hypertensionH yperlipidemia , unspecifiedHy pothyroidism, unspecified 3 Resident Internal Med. . INTERMED EXAM, [facility], [address] [place], [address], tel:[phone] [facility] hypertension (chief complaint)hyp erlipidemia (chief complaint)Thy roid problems (chief complaint) Healthcare maintenanceHy pothyroidism, unspecifiedHy perlipidemia, unspecifiedHy pertensionBod y mass index [BMI] 28.0-28.9, adultImmuniza tion not carried out because of patient refusalEncoun ter for immunizationS easonal allergies 3 Resident Internal Med. . [facility], [address] [place] [address], [address], tel:[phone] [facility] No Information 3 [facility]. [address] [place], [address], [place]. tel:[phone] Psychotherap y, 30 Min With Patient And Or Family M [facility], [address] [place], [address], [place] tel:[phone] [facility] Adjustment disorder with mixed anxiety and depressed mood 3 Fredrick Suzette. [address] [place], [place], [id number], [place]. tel:[phone] Psychotherap y, 30 Min With Patient And Or Family M [facility], [address] [place], [address], [place] tel:[phone] [facility] Adjustment disorder with mixed anxiety and depressed mood 3 Fredrick Suzette. [address] [place], [id number], [place]. tel:[phone] [facility], [address] [place], [address], [place] tel:[phone] [facility] No Information 2 Management Case. [address] [place], [place], [id number], [place]. tel:[phone] Psychotherap y, 30 Min With Patient And Or Family M [facility], [address] [place], [address], [place] tel:[phone] [facility] Adjustment disorder with anxiety 2 Fredrick Suzette. [address], [id number], [place]. tel:[phone] Psychotherap y, 45 Min With Patient And Or Family M [facility], [address] [place], [address], [place] tel:[phone] [facility] Adjustment disorder with mixed anxiety and depressed mood 2 Fredrick Suzette. [address] [place], [place], [id number], [place]. tel:[phone] Psychotherap y, 45 Min With Patient And Or Family M [facility], [address] [place], [address], [place] tel: [phone] [facility] Adjustment disorder with mixed anxiety and depressed mood Oct-2 2 Fredrick Suzette. [address], [id number], [place]. [phone] INTERMED EXAM,ESTAB PAT [facility], [address] [place], [address], [place] tel: [phone] [facility] Eye problems (chief complaint)Hyp othyroidism (chief complaint)HCM (chief complaint) Immunization not carried out because of patient refusalHypoth yroidism, unspecifiedBl epharitis of upper eyelids of both eyes, unspecified typeHypertens ionHyperlipid emia, unspecifiedAl lergic conjunctiviti s, bilateralPain of right eyeEncounter for immunization Jan- 2 Resident MED/PED. . Psychotherap y, 60 Min With Patient And Or Family M [facility], [address] [place], [address], [place] tel: [phone] [facility] Adjustment disorder with mixed anxiety and depressed mood Jan- 2 Fredrick Suzette. [address] [place], [place], [id number], [place]. tel:[phone] Psychotherap y, 60 Min With Patient And Or Family M [facility], [address] [place], [address], [place] tel: [phone] [facility] Adjustment disorder with mixed anxiety and depressed mood Oct-0 2 Fredrick Suzette. [address] [facility], [id number], [place]. tel:[phone] Psychotherap y, 60 Min With Patient And Or Family M [facility], [address] [place], [address], [place] tel: [phone] [facility] Adjustment disorder with mixed anxiety and depressed mood Sep-3 2 Fredrick Suzette. [address] [place], [place], [id number], [place]. [phone] Psychotherap y, 45 Min With Patient And Or Family M [facility], [address] [place], [address], [place] tel: [phone] [facility] Adjustment disorder with mixed anxiety and depressed mood Sep-2 2 Fredrick Suzette. [address] [place], [place], [id number], [place]. tel:[phone] Psychotherap y, 60 Min With Patient And Or Family M [facility], [address] [place], [address], [place] tel: [phone] [facility] Adjustment disorder with mixed anxiety and depressed mood Sep-1 2 Fredrick Suzette. [address] [place], [place], [id number], [place]. tel:[phone] Psychotherap y, 60 Min With Patient And Or Family M [facility], [address] [place], [address], [place] tel: [phone] [facility] Adjustment disorder with mixed anxiety and depressed mood Sep-0 2 Fredrick Suzette. [address] [place], [place], [id number], [place]. [phone] [facility], [address] [place], [address], [place] tel:[phone] [facility] Blepharitis of upper eyelids of both eyes, unspecified typeSevere myopia, rightMyopia, leftAstigmati sm of both eyes, unspecified typePresbyopi a Sep-0 2 Jose E Silva. [address] [place], [place], [id number], [place]. tel:[phone] Psychotherap y, 60 Min With Patient And Or Family M [facility], [address] [place], [address], [place] tel:[phone] [facility] Adjustment disorder with mixed anxiety and depressed mood Sep-0 2 Fredrick Suzette. [address], [place], [id number], [place]. tel:[phone] Psychotherap y, 60 Min With Patient And Or Family M [facility], [address] [place], [address], [place] tel: [phone] [facility] depression (chief complaint) Adjustment disorder with mixed anxiety and depressed mood 2 Fredrick Suzette. [address], [id number], [place]. tel:[phone] [facility], [address] [place], [address], [place] tel:[phone] [facility] No Information 2 Management Case. [address] [place], [place], [id number], [place]. tel:[phone] [facility], [address] [place], [address], [place] tel:[phone] [facility] No Information 2 Management Case. [address] [place], [place], [id number], [place]. tel:[phone] [facility], [address] [place], [address], [place] tel:[phone] [facility] No Information 2 Management Case. [address] [place], [place], [id number], [place]. tel:[phone] Psychotherap y, 30 Min With Patient And Or Family M [facility], [address] [place], [address], [place] tel: [phone] [facility] Adjustment disorder with mixed anxiety and depressed mood 2 [facility]. [address], [place], [id number], [place]. tel:[phone] LIMITED EXAM,ESTAB PAT. [facility], [address] [place], [address], [place] tel:[phone] [facility] recurrent vertigo's (chief complaint)Vag inal itching (chief complaint)HCM (chief complaint) Encounter for screening mammogram for cancer of breastHypothy roidism, unspecifiedPr ediabetesAdju stment disorder with mixed anxiety and depressed moodVaginal irritation 2 Nathan Mandie. [address] [place], [id number], [place]. tel:[phone] Referring Provider: Mandie Evans, [address] [place], [address] . tel:[phone] Psychotherap y, 30 Min With Patient And Or Family [facility], [address] [place], [address], [place] tel:[phone] [facility] Adjustment disorder with mixed anxiety and depressed mood 2 Fredrick Bradford. [address] [place], [place], [id number], [place]. tel:[phone] INTERMED EXAM,[facility], [address] [place], [address], [place] tel: [phone] [facility] Thyroid problems (chief complaint)Ear Pain (chief complaint)HCM (chief complaint) Immunization not carried out because of patient refusalEncntr screen for dis of the bld/bld-form org/immun mechnsmHypoth yroidism, unspecifiedEa r pain, bilateralBrea st cancer screening by mammogramAmbl yopia of left eyeImpacted cerumen, unspecified ear 2 Lon Parker. [address] [place], [id number], [place]. tel:[phone] INTERMED EXAM,[facility], [address] [place], [address], [place] tel:[phone] [facility] hypothyroidis m (chief complaint)med ication (chief complaint)Pre ventive exam (chief complaint)HCM (chief complaint)col on cancer screening (chief complaint) Encounter for screening for malignant neoplasm of colonGastroes ophageal reflux disease, unspecified whether esophagitis presentHypoth yroidism, unspecifiedMe casimiro impairmentAbn ormal glucoseH/O: varicose veinsStressEn counter for immunizationE ncounter for screening mammogram for cancer of breast 2 Loren Bhatti. [address], [id number], [place]. tel:[phone] [facility], [address] [place], [address], [place] tel:[phone] [facility] Contact w and exposure to oth viral communicable diseases 2 Jono Montez. [address], [place], [place], [id number], [place]. tel:[phone] LIMITED EXAM,ESTAB PAT. [facility], [address] [place], [address], [place] tel:[phone] [facility] Dry eyes (chief complaint) Viral conjunctiviti sSore throat 2 Resident Internal Med. . INTERMED EXAM,ESTAB PAT [facility], [address] [place], [address], [place] tel: [phone] [facility] colon cancer screening (chief complaint)HCM (chief complaint)Rig ht upper quadrant (chief complaint)Dys uria (chief complaint) Body mass index (BMI) 29.0-29.9, adultEncounte r for screening for cancer of colonRoutine health maintenanceOt her abnormal findings in urineRight upper quadrant abdominal pain Sep-0 1 Resident Internal Med. . [facility], [address] [place], [address], [place] tel: [phone] [facility] No Information 1 [facility]. [address] [place], [address], [place]. tel:[phone] LIMITED EXAM,ESTAB PAT. [facility], [address] [place], [address], [place] tel:[phone] [facility] cough (chief complaint) Gastroesophag eal reflux disease, unspecified whether esophagitis presentCough 1 Resident Internal Med. . BRIEF EXAM, ESTAB PAT. [facility], [address] [place], [address], [place] tel:[phone] [facility] Cough (chief complaint) Cough 1 Sidra Hahn. [address] [place] [address], [id number], [place]. tel:[phone] INTERMED EXAM,ESTAB [facility], [address] [place], [address], [place] tel: [phone] [facility] Cough (chief complaint) CoughHypothyr oidism, unspecified 1 Resident MED/PED. . LIMITED EXAM,ESTAB [facility]. [facility], [address] [place], [address], [place] tel: [phone] [facility] Cough 1 Resident MED/PED. . [facility], [address] [place], [address], [place] tel: [phone] [facility] Counseling, unspecified 0 Health Education. . LIMITED EXAM,ESTAB [facility]. [facility], [address] [place], [address], [place] tel: [phone] [facility] hypertension (chief complaint)Thy roid problems (chief complaint)hyp erlipidemia (chief complaint)col on cancer screening (chief complaint)HCM (chief complaint)All ergies (chief complaint) Encounter for screening for cancer of colonImmuniza tion not carried out because of patient refusalHypert ensionPrediab etesHypothyro idism, unspecifiedHy perlipidemia, unspecifiedNo dule of skin of head 3 0 Shannan Dougherty. [address] [place] [address], [id number], [place]. tel:[phone] [facility], [address] [place], [address], [place] tel:[phone] [facility] No Information 0 Shannan Dougherty. [address], [place], [id number], [place]. tel:[phone] MINIMAL EXAM,ESTAB PAT. 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 . INTERMED EXAM,ESTAB PAT [facility], [address] [place] [address], [address], [place] tel: [phone] [facility] hypertension (chief complaint)Uri nary symptoms (chief complaint) HypertensionH ypothyroidism , unspecifiedHe althcare maintenancePr ediabetesHype rlipidemia, unspecifiedDy suriaOther specified counseling 0 Stephen Forbes. [address], [place], [id number], [place]. [phone] LIMITED EXAM,ESTAB PAT. [facility], [address] [place], [address], [place] tel: [phone] [facility] hypertension (chief complaint)Thy roid (chief complaint)lef t axillary pain (chief complaint) Breast pain, leftHypothyro idism, unspecifiedHy pertension 9 Shannan Dougherty. [address], [id number], [place]. tel:[phone] [facility], [address] [place] [address], [address], [place] tel: [phone] [facility] No Information 9 Adelia Bhatti. [address] [employer] [address] [employer] [address], [place], [place], [id number], [place]. tel:[phone] [facility], [address] [place] [address], [address], [place] tel: [phone] [facility] Hypothyroidis m, unspecified 0 9 Adelia Bhatti. [address] [place], [place], [id number], [place]. tel:[phone] [facility], [address] [place] [address], [address], [place] tel:[phone] [facility] Encounter for dental exam and cleaning w abnormal findings 9 Annalise Gay. [address] [place], [place], [id number], [place]. tel:[phone] [facility], [address] [place], [address], [place] tel: [phone] [facility] Hypothyroidis m, unspecified 0 9 Shannan Dougherty. [address] [place], [place], [id number], [place]. tel:[phone] INTERMED EXAM,[facility], [address] [place] [address], [address], [place] tel: [phone] [facility] hypertension (chief complaint)Thy roid problems (chief complaint)Mus culoskeletal pain (chief complaint) Encounter for screening for cancer of colonHypothyr oidism, unspecifiedPr ediabetesHype rtensionSciat ica of right side 9 Shannan Dougherty. [address] [place], [place], [id number], [place]. tel:[phone] [facility], [address] [place] [address], [address], [place] tel: [phone] [facility] No Information 9 Shannan Dougherty. [address] [place], [place], [id number], [place]. tel:[phone] [facility], [address] [place] [address], [address], [place] tel:[phone] [facility] Hypothyroidis m, unspecified 0 2 9 Sebas Cuevas. [address] [place], [place], [id number], [place]. tel:[phone] [facility], [address] [place], [address], [place] tel: [phone] [facility] Hypothyroidis m, unspecified Shannan Jordan [address] [place], [place], [id number], [place]. tel:[phone] LIMITED EXAM,ESTAB PAT. [facility], [address] [place], [address], [place] tel: [phone] [facility] hypertension (chief complaint)hyp erlipidemia (chief complaint)col on cancer screening (chief complaint) Encounter for screening for cancer of colonHyperten sionHypothyro idism, unspecifiedPr ediabetesHist ory of uterine fibroidAt risk for dental problems Shannan Jordan [address] [place], [place], [id number], [place]. tel:[phone] LIMITED EXAM,ESTAB PAT. [facility], [address] [place], [address], [place] tel: [phone] [facility] Follow up on lab test(s) (chief complaint)Col on Cancer Screening (chief complaint) Body mass index (BMI) 27.0-27.9, adultEncounte r for screening for cancer of colonHypothyr oidism, unspecifiedHy pertensionHis tory of uterine fibroid Shannan Jordan [address] [place] [address], [id number], [place]. tel:[phone] [facility], [address] [place], [address], [place] tel: [phone] [facility] No Information [facility]. [address] [place], [address], [place]. tel:[phone] LIMITED EXAM,ESTAB PAT. 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 [address], [id number], [place]. tel:[phone] INTERMED EXAM,ESTAB [facility], [address] [place], [address], [place] tel: [phone] [facility] back pain (chief complaint)see standing orders (chief complaint) HypertensionH ypothyroidism , unspecifiedHy perlipidemia, unspecifiedCe rvical massOther abnormal findings in urineEncounte r for screening for cancer of colonAcute right-sided thoracic back pain 8 Stephen Forbes. [address] [place], [place], [id number], [place]. tel:[phone] LIMITED EXAM,ESTAB PAT. [facility], [address] [place], [address], [place] tel: [phone] [facility] Sore throat (chief complaint) Acute pharyngitis, unspecifiedHy pertensionHyp othyroidism, unspecifiedHy perlipidemia, unspecified 8 Resident Internal Med. . LIMITED EXAM,ESTAB [facility]. [facility], [address] [place], [address], [place] tel: [phone] [facility] Follow up on lab test(s) (chief complaint) Cervical mass 8 Adelia Bhatti. [address], [place], [place], [id number], [place]. tel:[phone] LIMITED EXAM,ESTAB PAT. [facility], [address] [place], [address], [place] tel: [phone] [facility] preventive exam (chief complaint)Fol low up on lab test(s) (chief complaint) Post-menopaus al bleeding 7 Adelia Bhatti. [address] [place], [place], [id number], [place]. tel:[phone] LIMITED EXAM,ESTAB PAT. [facility], [address] [place], [address], [place] tel:[phone] [facility] hematuria (chief complaint)HCM (chief complaint) Post-menopaus al bleedingOther abnormal findings in urineAllergic rhinitis, unspecified allergic rhinitis trigger, unspecified rhinitis seasonalityHy pertensionHyp othyroidism, unspecified 7 Brittatwyla Mandie. [address] [place], [place], [id number], [place]. tel:[phone] LIMITED EXAM,ESTAB PAT. [facility], [address] [place], [address], [place] tel:[phone] [facility] Thyroid problems (chief complaint)hyp ertension (chief complaint)hyp erlipidemia (chief complaint)Med refills (chief complaint) HypertensionH ypothyroidism , unspecifiedHy perlipidemia, unspecifiedAl lergic rhinitis, unspecified allergic rhinitis trigger, unspecified rhinitis seasonalityPr ediabetes 7 Shannan Dougherty. [address], [place], [id number], [place]. tel:[phone] LIMITED EXAM,ESTAB PAT. [facility], [address] [place], [address], [place] tel:[phone] [facility] Cough (chief complaint) Viral upper respiratory tract infection 7 Sidra Hahn. [address] [place] [address], [id number], [place]. tel:[phone] LIMITED EXAM,ESTAB PAT. [facility], [address] [place], [address], [place] tel:[phone] [facility] Burning on urination (chief complaint) DysuriaHyperl ipidemia, unspecifiedHy pothyroidism, unspecifiedHy pertension 0 7 Stephen Forbes. [address], [place], [id number], [place]. tel:[phone] LIMITED EXAM,ESTAB PAT. [facility], [address] [place], [address], tel: [phone] [facility] hypertension (chief complaint)hyp erlipidemia (chief complaint)hyp othyroidism (chief complaint)All ergies (chief complaint)Diz ziness (chief complaint)dep ressed mood (chief complaint) Healthcare maintenanceEs sential (primary) hypertensionH yperlipidemia , unspecifiedAl lergic rhinitis, unspecified allergic rhinitis trigger, unspecified rhinitis seasonalityHy pothyroidism, unspecifiedAd justment disorder with depressed mood 7 Resident Internal Med. . LIMITED EXAM,ESTAB PAT. [facility], [address] [place], [address], tel: [phone] [facility] F/U TSH (chief complaint) Essential (primary) hypertensionH ypothyroidism , unspecifiedHe althcare maintenance 7 Resident Internal Med. . LIMITED EXAM,ESTAB PAT. [facility], [address] [place], [address], tel: [phone] [facility] depression (chief complaint)Thy roid problems (chief complaint)All ergies (chief complaint) Hypothyroidis m, unspecifiedAl lergic rhinitisPredi abetesHyperli pidemia, unspecifiedDe ntal cariesEssenti al (primary) hypertension 7 Resident Internal Med. . LIMITED EXAM,ESTAB PAT. [facility], [address] [place], [address], tel: [phone] [facility] Cough (chief complaint)Dep ression (chief complaint) Essential (primary) hypertensionA llergic rhinitis, unspecified allergic rhinitis trigger, unspecified rhinitis seasonalityPr ediabetesBere avementHypoth yroidism, unspecifiedHe althcare maintenance 7 Resident Internal Med. . [facility], [address] [place] [address], [address], tel: [phone] [facility] No Information 7 [facility]. [address] [place], [address], [place]. [phone] INTERMED EXAM,ESTAB PAT [facility], [address] [place], [address], [place] tel:[phone] [facility] Cough (chief complaint) Allergic rhinitisEssen tial (primary) hypertensionH ypothyroidism , unspecifiedIm paired fasting glucoseEncoun ter for screening for cancer of colonOverweig htHyperlipide stuart, unspecifiedVi ral URIOther viral agents as the cause of diseases classified elsewhereHeal thcare maintenance 7 Resident Internal Med. . [facility], [address] [place], [address], [place] tel:[phone] [facility] No Information 7 [facility]. [address] [place], [address], [place]. [phone] [facility], [address] [place], [address], [place] tel:[phone] [facility] No Information 6 [facility]. [address] [place], [address], [place]. [phone] LIMITED EXAM,ESTAB PAT. [facility], [address] [place], [address], [place] tel:[phone] [facility] hypertension (chief complaint)RX (chief complaint)TB Assesment (chief complaint) Hypothyroidis m, unspecifiedEs sential (primary) hypertensionA llergic rhinitis 6 Shannan Dougherty. [address] [place] [address], [id number], [place]. tel:[phone] LIMITED EXAM,ESTAB PAT. [facility], [address] [place], [address], [place] tel:[phone] [facility] Musculoskelet al pain (chief complaint)hyp ertension (chief complaint)Med refills (chief complaint) Impingement syndrome of left shoulderHypot hyroidism, unspecifiedIm paired fasting glucose 6 Shannan Dougherty. [address] [place], [place], [id number], [place]. tel:[phone] LIMITED EXAM,ESTAB PAT. 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 tel:[phone] [facility], [address] [place] [address], [address], [place] tel:[phone] [facility] No Information 5 Shannan Jordan [address] [place], [place], [id number], [place]. tel:[phone] INTERMED EXAM,ESTAB PAT [facility], [address] [place] [address], [address], [place] tel: [phone] [facility] hypertension (chief complaint)Thy roid problems (chief complaint)All ergies (chief complaint)Wan ts flu shot (chief complaint) Encntr screen for dis of the bld/bld-form org/immun mechnsmEssent ial (primary) hypertensionH ypothyroidism , unspecifiedEn counter for screening mammogram for cancer of breastEncount er for screening for cancer of colonImpaired fasting glucose 5 Shannan Jordan [address] [place], [place], [id number], [place]. [phone] [facility], [address] [place] [address], [address], [place] tel: [phone] [facility] No Information 5 Shannan Dougherty. [address], [place], [id number], [place]. tel:[phone] [facility], [address] [place], [address], [place] tel: [phone] [facility] No Information 5 [facility]. [address] [place], [address], [place]. tel:[phone] LIMITED EXAM,ESTAB PAT. [facility], [address] [place], [address], [place] tel:[phone] [facility] Hypothyroidis m (chief complaint)hyp ertension (chief complaint)All ergies (chief complaint) No Information 5 Resident Internal Med. . [facility], [address] [place], [address], [place] tel:[phone] [facility] Hypothyroidis m 5 Lamp Magy. [address], [place], [id number], [place]. tel:[phone] LIMITED EXAM,ESTAB PAT. [facility], [address] [place], [address], [place] tel:[phone] [facility] hypertension (chief complaint)Hyp othyroidism (chief complaint) Hypertension, BenignHypothy roidismOther and unspecified hyperlipidemi aIMPAIRED FASTING GLUCOSE 4 Shannan Dougherty. [address], [id number], [place]. tel:[phone] [facility], [address] [place], [address], [place] tel:[phone] [facility] hypertension (chief complaint)Thy roid problems (chief complaint) No Information 3 0 4 Resident Internal Med. . [facility], [address] [place], [address], [place] tel:[phone] [facility] No Information 4 No Information LIMITED EXAM,ESTAB PAT. [facility], [address] [place], [address], [place] tel:[phone] [facility] hypertension (chief complaint)hyp othyroidism (chief complaint)war ts (chief complaint) Viral warts, unspecifiedHy pothyroidismH ypertension, Benign 4 Shannan Jordan [address] [place] [address], [id number], [place]. tel:[phone] LIMITED EXAM,ESTAB PAT. [facility], [address] [place], [address], [place] tel:[phone] [facility] warts (chief complaint) Viral warts, unspecifiedHy pertension, Benign 4 Shannan Jordan [address] [place], [place], [id number], [place]. tel:[phone] LIMITED EXAM,ESTAB PAT. [facility], [address] [place], [address], [place] tel:[phone] [facility] thyroid problems (chief complaint)med refills (chief complaint)fol low up on lab test(s) (chief complaint) Hypertension, BenignHypothy roidismViral warts, unspecified 4 Shannan Jordan [address] [place], [place], [id number], [place]. tel:[phone] LIMITED EXAM,ESTAB PAT. [facility], [address] [place], [address], [place] tel:[phone] [facility] thyroid problems (chief complaint)all ergies (chief complaint) Hypothyroidis m 4 Shannan Jordan [address] [place] [address], [id number], [place]. tel:[phone] LIMITED EXAM,ESTAB PAT. [facility], [address] [place], [address], [place] tel:[phone] [facility] thyroid problems (chief complaint) OverweightHyp othyroidismIM PAIRED FASTING GLUCOSEHypert ension, BenignOther and unspecified hyperlipidemi a 3 Shannan Dougherty. [address], [place], [id number], [place]. tel:[phone] [facility], [address] [place], [address], [place] tel: [phone] [facility] No Information 3 [facility]. [address] [place], [address], [place]. tel:[phone] [facility], [address] [place], [address], [place] tel: [phone] [facility] No Information 2 [facility]. [address] [place], [address], [place]. tel:[phone] INTERMED EXAM,ESTAB PAT [facility], [address] [place], [address], [place] tel: [phone] [facility] No Information 2 No Information LIMITED EXAM,ESTAB PAT. [facility], [address] [place], [address], [place] tel: [phone] [facility] No Information 1 Resident Internal Med. . LIMITED EXAM,ESTAB PAT. [facility], [address] [place], [address], [place] tel: [phone] [facility] No Information 1 Resident Internal Med. . LIMITED EXAM,ESTAB PAT. [facility], [address] [place], [address], [place] tel:[phone] [facility] No Information 1 Resident Family Medicine. . LIMITED EXAM,ESTAB PAT. [facility], [address] [place], [address], [place] tel:[phone] [facility] No Information 1 Resident Internal Med. . [facility], [address], [place], [address], [place] tel:[phone] TRANSCRIBED No Information 0 No Information Family [...] administered Note: Imported from [facility]. From Provider: [facility] Injected by: AUSTEN BOB MA. ; Source: Source Unspecified Influenza administered Note: Imported from [facility]. From Provider: [facility]-. Injected by: DOMINGA GOMEZ MA. ; Source: Source Unspecified Influenza administered Note: Imported from [facility]. From Provider: [facility]-. Injected by: ADELAIDA CHIANG RN. ; Source: Source Unspecified Tdap administered Note: Imported from [facility]. From Provider: [facility]. Injected by: Sulema Stearns MA. ; Source: Source Unspecified Influenza administered Note: Imported from [facility]. From Provider: [facility]. Injected by: Nicol Gomez MA. ; Source: Source Unspecified Novel [id number], all formulations administered Note: Imported from [facility]. From Provider: [facility]. Injected by: Nicol Gomez MA. ; Source: Source Unspecified Novel [id number], all formulations administered Note: Imported from [facility]. From Provider: [facility]. Injected by: Nicol Gomez MA. ; Source: Source Unspecified Payers Payer name Insurance type Covered alliance party ID Authoriza tion(s) Medicare PPS MB [id number] BS Promise Medicare Secondary CI [id number] Medicare PPS MB [id number] BS Promise Medicare Secondary CI [id number] Medicare PPS MB [id number] BS Promise Medicare Secondary CI [id number] HCLA BS Promise Medi-Arleen MC [id number] MediCal Managed Care Interim Rate MC [id number] HCLA BS Promise Medi-Arleen MC [id number] HCLA LA Care Medi-Arleen CI [id number] MediCal Managed Care Interim Rate MC [id number] Social History Type Description Quantity Date [...] Of Treatment Date Type Action Status Goal FIT-DNA. Due on due Goal Tdap due Goal Lipid panel. Due on 029 due Goal Colonoscopy. Due on 025 due Goal Dental exam. Due on 025 due Goal TB Risk [...] Goal Retinal Screening. Due on due Goal Lifestyle education regardin g diet completed Goal Unhealthy drug u se screening. Due on due Goal Alcohol Screening. Due on due Goal Zoster vaccine ( ). Due on due Goal Depression Scree gj. Due on due Goal PPD (TST). Due [...] TB Risk Assessment. Due on due Goal Retinal Screening. Due on due Goal Lipid panel. Due on 029 due Goal Zoster vaccine (1st) due Goal Domestic Violenc e Screen. Due on due Goal Dental exam. Due on 025 due Goal Depression Scree [...] 028 due Goal Td vaccine. Due on due [...] due Goal Alcohol Screening. Due on Oc t due Goal FIT. Due on due Goal [...] Zoster vaccine () due Goal Zoster vaccine ( ). Due [...] PPD (TST). Due on 1 due Goal Colonoscopy. Due [...] due Goal Zoster vaccine () due Goal TB Risk Assessment. Due on [...] PPD (TST). Due on 9 due Goal Lipid panel. Due on due [...] 011 due Goal PPD (TST). Due on 9 [...] A due Goal Dental exam. Due on 018 [...] treat ordered Referral Ordered: referred to outside [facility] needs new glasses (related to Low vision, both eyes) ordered Referral Ordered: referred to outside dental referrals poor dentition (related to Dental caries) ordered Referral Ordered: referred to [facility] (related to Essential (primary) hypertension) ordered Referral Ordered: referred to [facility] check up (related to Essential (primary) hypertension) ordered Appointment Celia Hay BOOKED Future Order: Lab Order ILA MENARD ([id number]), Appointment on: , Sent on: Sent Future Order: Lab Order Ila MENARD ([id number]), Sent on: Sent History Of Present Illness [...] VISIT CONDUCTED IN [place] WITHOUT USE OF FOOD SERVICE SUPERVISOR BY PATIENT CONSENT.EST PT WITH COUGH, SORE [...] Hx): N.A. Vaccines: Infulenza today. Declines others [facility] pt requesting rx refills pt also requesting [...] Risk factors inc lude age over 50. [facility] please sent flu shot to [facility] pharmacy offered pt TDAP, PCV-13 and [...] is an initi al visit. recurrent vertigo's [facility] pt requesting la bs for TSH Vaginal [...] or vomitingDenies pus or discharge from ears [facility] 1. Mammogram ref erral Thyroid problems Risk factors in clude female and history of hypothyroidism. Additional information: Hypothyroidism medication refill. [facility] Pt due for Tdap & [...] far away. Saw an eye doctor in [place] and wants to go to another appt [...] include fever. Additional information: vaccinated. went to [place] 3[place]4 months ago. has omeprazole has not [...] weeks ago when she was returnng from [place], negative. Thyroid problems Risk factors in clude female and history of hypothyroidism. Additional information: Hypothyroidism. hypertension hyperlipidemia Risk factors inc lude age over 50. Allergies Symptoms are con stant, moderate and worsening. Additional information: Bothering her latelyhas not had spray as had to purchasehas had allergies off and on for yrs. H[facility] Med refillsDue f or Tdap, shingrix and [id number] vaccines. Pt declines all today. colon cancer screening Prior scr eening: fecal occult blood testing. Denies risk factors. There are no associated symptoms. Additional information: No family history of colon cancer. immunization pt here for flu vaccineverified by IM attending Theodorei hypertension There are no ass ociated symptoms. [...] currently stable. Pertinent negatives include chest pain. 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 Was seen at [facility] per patient on 03/08/2017-03/09/2017 . patient does not recall actual date. Went in Had noticed drops of bloodin her underwear. Moseley that it was in her urine. States [...] weeks ago. No F/C/myalgias. hypertension Additional infor matemeka: No new complaints hypothyroidism The symptoms beg [...] Follow up B/P RX Patient would li ke to discuss RX and refills TB Assesment positve TB Asses ment, patient was born in [facility], patient states she did receive BCG vaccine [...] both lower extremities Seeing dentistry Related to Wise al decay Cont lifestyle modif ications On [...] both lower extremities Seeing dentistry Related to Wise al decay Cont lifestyle modif ications On [...] Mental Status Date Cognitive Assessment Orientation - [place] ed to time, place, person, situation. Patient Care Teams Name Effective Dates (sta rt - stop) Status Members RONAK Stuart - active Lily Hampton.Internal Med Resident.(Lead)
--- OUTSIDE RECORDS SUMMARY | 2024-09-05 12:20 | XMS_ITS | Encounter Summary ---
Author Organization [facility] Address [address] [place] [address] Care Team Providers Care Electron Microscopist Name Role Phone Curt Falk MD Primary Care Provider [phone] Reason for Visit * Reason Comments Rash Encounter Details Date Type Department Care Team (Late st Contact Info) Description 09/05/2024 7:39 AM EDT - 09/05/2024 8:03 AM EDT Emergency [facility] Emergency [address] [place] [id number] Urticaria (Primary Dx); Rash Discharge Disposition: Home [...] the past. Has an appointment for the university tutor she saw 3 months ago urticaria is not resolved. She has an appointment in August. Denies any fevers or chills or respiratory distress. ROS: I have performed a ROS with the pertinent positives and negatives documented in the history ofpresent illness. Previous History Past Medical History: Diagnosis Date KAMILA positive DX:KAMILA positive Anxiety Arthralgia DX:Arthralgia Asthma DX:Asthma CHF (congestive heart failure) ([facility] V24, [facility] V28) Chronic interstitial cystitis DX:Chronic interstitial cystitis [...] Well-appearing no respiratory distress recommend follow-up with event planner take medication as directed. No sign of [...] documented as of this encounter Care Teams Electron Microscopist Relationship Specialty Start Date End Date Curt Falk MD [address] [place] [address] Dr [address] WILLIAM Barrera PCP - General 07/16/21 documented as of this encounter
== END 2024-09-05 09:53 | disposition home or self-care (01) ==
LOC: HO.XRAY 09:52
PROVIDERS: PCP Internal Medicine; Visit Provider Internal Medicine
DX: M25.551 Pain in right hip (principal); M25.552 Pain in left hip; R29.898 Other symptoms and signs involving the musculoskeletal system; L50.9 Urticaria, unspecified; J45.40 Moderate persistent asthma, uncomplicated; K21.9 Gastro-esophageal reflux disease without esophagitis; G47.00 Insomnia, unspecified; F41.9 Anxiety disorder, unspecified; F33.9 Major depressive disorder, recurrent, unspecified; E66.9 Obesity, unspecified; Z68.41 Body mass index [BMI] 40.0-44.9, adult; Z79.899 Other long term (current) drug therapy
CPT/HCPCS: 73522; 96127; 99212

== ENCOUNTER → 2024-09-05 10:56 | Outpatient (BNV) | payer OTHER, SELFPAY | PROVIDERS: PCP Internal Medicine; Visit Provider Radiology Diagnostic Radiology | DX: M16.0 Bilateral primary osteoarthritis of hip (principal) | CPT/HCPCS: 73522 ==

== ENCOUNTER 2024-09-18 09:56 | Outpatient (AMB) | payer OTHER, SELFPAY ==
[2024-09-18 10:00] VITALS: BP 128/62; PULSE 86; O2SAT 95; BMI 43.2
--- NOTE | 2024-09-18 10:00 | MHC.OFFVIS ---
Vital Signs 09/18/24 10:00 Height 4 ft 11 in Weight 213 lb 13.574 oz BMI 43.2 BP 128/62 Blood Pressure Location Lt brachial Position Sitting Pulse 86 Pulse Source Pulse Oximeter Pulse Oximetry (%) 95 Oxygen Delivery Method Room Air Intake Visit Reasons: shortness of breath, wheezing Accompanied by: Self / Same As Patient Allergies Penicillins [PENICILLINS] Allergy (Intermediate, Verified 09/18/24 10:03) RASH HPI Comments Details: The patient is a 69-year-old woman with known history of asthma in addition to severe uticaria. the patient and follow closely by Dermatology. Seems to respond very well to prednisone. She tried and failed CellCept and currently is tolerating the Dupixent. However, she has worsening respiratory symptoms. She has been having chest tightness and wheezing. She does have a rescue inhaler that she uses often with partial resolution of symptoms. In addition to the the prednisone hopes of breathing. During the office visit with primary care doctor she did complaint of the symptoms she did have a chest x-ray demonstrating no acute disease. 02/01/2022 the patient is here for a pulmonary follow-up visit. Overall she continues to do well from a respiratory status. Ever since she started Dupixent injections for her significant a topic dermatitis her asthma is improved dramatically as well. She has not had to use any prednisone. She continues to take the Breo daily. She has not had to use any rescue medicine. Patient has been complaining of back pain. She does follow-up pain clinic. She has not had a formal chest x-ray. Will go ahead and request imaging studies at this time. She is also having significant sciatica like symptoms. She has been on multiple pain medications without any significant relief. She will be following up with her primary care doctor soon. I did recommend she can not take a small course of prednisone to see if this alleviates her level of inflammation. Patient still has issues with daytime drowsiness. Her Rexford score is 8/24. Partly is more because she wakes up multiple times because of interstitial cystitis then it is from sleep apnea. The patient would like to hold off on any PAP therapy at this time. She is going to continue to work on positional therapy. 06/25/2024 the patient is here for a pulmonary follow-up visit. She is feeling better now. The patient also was taken Dupixent for her eczema and atopic dermatitis. Although she is now off it since she has been stable from the asthma standpoint, but, develop worsening pruritic rash. She is going to be monitoring closely. The patient also has been continue to use positional therapy. Denies any daytime drowsiness. Rexford score is around 6. therefore no additional testing necessary at this time. She also is complaining of right upper quadrant pain while eating. She is concerned becuase her sister was recently diagnosed with stage 4 liver cancer. 09/18/2024 the patient is here for a sick visit. She has had worsening respiratory symptoms for last few weeks. She feels shortness of breath with minimal activity. Specially will going up a flight of stairs. Moderate severity. She has also has some issues with shortness of breath laying flat. She has been having issues with her allergies in her rash. She has been on Dupixent for the last 3 months and she also has been on prednisone about 20 mg daily because her rash is very significant and when she stops taking the prednisone the rash comes back. She has been closely working with the sample case porter to try to get her off the Dupixent and without any avail. I did give her some ideas of steroid sparing agents that she should discuss with her sample case porter. Seems like she has any significant volume overload status right now which is likely impacting her respiratory capacity. Likely have him orthopnea so therefore will go ahead and give her some diuretics. The patient should also have an EKG chest x-ray and blood work specially because of her significant symptoms. She may need a cardiology evaluation. Hopefully she can get off the prednisone so we can minimize her volume status that is getting worse with the fluid retention. Patient has a follow-up in a few months if she has any issues prior to that she will call for an earlier assessment. [facility] Medical History Opioid use disorder Abdominal pain Depression Anxiety Insomnia Myalgia, upper arm Osteoarthritis of right knee Lumbar spondylosis Foot pain, bilateral BRIDGETTE (obstructive sleep apnea) Asthma KAMILA positive Urticaria Obesity (BMI 30-39.9) Vitamin D deficiency Chronic interstitial cystitis Irritable bowel syndrome (IBS) Arthralgia Osteoarthritis Esophageal stricture GERD (gastroesophageal reflux disease) Left lumbar radiculopathy CAD (coronary artery disease) Pure hypercholesterolemia Benign essential hypertension Surgical History History of surgery History of total right knee replacement (09/22/21) Hx of cystoscopy Status post balloon dilatation of esophageal stricture (~2005) History of cardiac catheterization History of colonoscopy History of nephrolithotomy with removal of calculi History of tooth extraction Family History Father Hypertension Mother Hypertension Diabetes CVD (cardiovascular disease) Daughter No problems noted. Family/Other FH: mental illness Other Mental health problem Substance abuse Social History Housing: Apartment Are you a primary district manager primary care sales to a significant other at home: No Do you presently have visiting nurse or other home services: No Alcohol intake: never Comment: medicated, see MAR Patient Tobacco Use Status: Never used Tobacco e-Cigarette/Vaping Use: Never Used Second Hand Smoke Exposure: No service: No Current occupational status: disabled Cognitive needs: No Hearing needs: No Vision needs: Yes (Glasses) Review of Systems Const Denies daytime sleepiness and Denies night sweats ENT Denies change in voice, Denies lip swelling, Denies mouth pain, Reports nasal congestion, Reports nasal discharge and Denies tongue swelling Card Denies chest pain, Reports leg edema, Reports dyspnea on exertion, Reports orthopnea and Reports paroxysmal nocturnal dyspnea Resp Reports cough, Reports dyspnea on exertion and Reports wheezing GI Reports abdominal pain Musc Reports as per HPI, Reports back pain and Reports radiating pain into limb Skin/Breast Reports pruritus and Reports rash Neuro Denies Neuro-related abnormal movements Psych Denies no additional complaints Stanton/Lymph Denies easy bleeding and Denies lymphadenopathy Aller/Immun Denies lip swelling, Denies tongue swelling and Reports wheezing Physical Exam Vital Signs: Last Vital Signs Pulse 86 09/18/24 10:00 BP 128/62 09/18/24 10:00 Pulse Ox 95 09/18/24 10:00 Oxygen Delivery Method Room Air 09/18/24 10:00 BMI result Body Mass Index 43.2 Const General: alert Neck Neck: Yes normal visual inspection, Yes full ROM and Yes no lymphadenopathy Chest Chest palpation & inspection: normal inspection of the chest Resp Effort & Inspection: normal respiratory effort and prolonged expiratory phase Auscultation: no wheezes and diminished lung sounds Cardio Rate: regular rate Rhythm: regular rhythm Heart sounds: S1 normal heart sound present and S2 normal heart sound present GI Palpation (GI): Soft to palpation and nontender Auscultation: normal bowel sounds Skin General skin exam: rashes and/or lesions noted Assessment & Plan Assessment & Plan (1) Dyspnea: Code(s): R06.00 - Dyspnea, unspecified Category: Medical Qualifiers: Dyspnea type: shortness of breath Qualified Code(s): R06.02 - Shortness of breath (2) Asthma: Code(s): J45.909 - Unspecified asthma, uncomplicated Category: Medical Qualifiers: Asthma complication type: uncomplicated Asthma persistence: persistent Asthma severity: moderate Qualified Code(s): J45.40 - Moderate persistent asthma, uncomplicated (3) BRIDGETTE (obstructive sleep apnea): Code(s): G47.33 - Obstructive sleep apnea (adult) (pediatric) Category: Medical (4) Abdominal pain: Code(s): R10.9 - Unspecified abdominal pain Category: Medical Qualifiers: Abdominal location: right upper quadrant Qualified Code(s): R10.11 - Right upper quadrant pain (5) CHF (congestive heart failure): Code(s): I50.9 - Heart failure, unspecified Category: Medical Qualifiers: Heart failure type: unspecified Heart failure chronicity: unspecified Qualified Code(s): I50.9 - Heart failure, unspecified Plan Advair HFA CARITO as needed Dupixent which is mainly for her dermatitis, waiting and monitoring positional sleep therapy. No PSG at this time Bloodwork CXR Lasix x 5 days Needs to find an alternative to the Prednison3 Follow-up 2-3 months Orders: Orders Complete Blood Count Auto Diff 09/18/24 I50.9 - Heart failure, unspecified Basic Metabolic Panel 09/18/24 I50.9 - Heart failure, unspecified Erythrocyte Sedimentation Rate 09/18/24 I50.9 - Heart failure, unspecified XR chest 2V 09/18/24 R06.02 - Shortness of breath ECG 12 lead EKG 09/18/24 J44.9 - Chronic obstructive pulmonary disease, unspecified, R06.02 - Shortness of breath B Type Natriuretic Peptide 09/18/24 I50.9 - Heart failure, unspecified Troponin-I High Sensitivity 06/03/25 I50.9 - Heart failure, unspecified Medications: New furosemide (Lasix) 20 mg PO DAILY 5 tabs 0RF 5 days Coding Level of Care Code Est Pt Level 4 (08733) Complex EM visit Add On G2211 Diagnoses Shortness of breath R06.02 Dyspnea type: shortness of breath Moderate persistent asthma without complication J45.40 Asthma complication type: uncomplicated Asthma persistence: persistent Asthma severity: moderate BRIDGETTE (obstructive sleep apnea) G47.33 Right upper quadrant abdominal pain R10.11 Abdominal location: right upper quadrant Congestive heart failure, unspecified HF chronicity, unspecified heart failure type I50.9 Heart failure type: unspecified Heart failure chronicity: unspecified Time Spent (min) 18
--- OUTSIDE RECORDS SUMMARY | 2024-09-18 11:21 | XMS_ITS | Encounter Summary ---
Author Organization [facility] Address [address] [place] [address] Care Team Providers Care Adjunct English Instructor Name Role Phone Curt Falk MD Primary Care Provider + [phone] Encounter Details Date Type Department Care Team (Late st Contact Info) Description 09/14/2024 Lab Requisition [facility] - Main Lab [address] [facility] [place] [phone] Quang Hurd MD [address] [facility] [address] [place] [address] Frequency of micturition Social History Tobacco Use Types Packs/Day Years [...] PM EDT documented as of this encounter Functional Status * Are you [...] 09/05/2024 7:45 AM EDT Epifanio Black RN documented as of this encounter Mental Status * Because of a physical, mental, or emotional condition, do you have serious difficulty concentrating, remembering, or making decisions? (5 years old or older) Answer Entry Date Author No 09/05/2024 7:45 AM EDT Epifanio Black RN documented in this encounter Plan of Treatment Not on file documented as of this encounter Procedures Procedure Name Priority Date/Time Associated Diagnosis Comments BACTERIAL IDENTIFICATION AND SUSCEPTIBILITY, AEROBIC Routine 09/13/2024 12:00 AM EDT Frequency of micturition documented in this encounter Results * (ABNORMAL) Bacterial identification and susceptibility, aerobic (09/13/2024 12:00 AM EDT) Culture, Bacterial ID and Sensitivity Escherichia coli(A) KRISTIN 09/15/2024 10:55 AM EDT [facility] Other Urine specimen from urethra / Unknown 09/13/2024 09/14/2024 10:29 AM EDT Narrative [facility] - 09/15/2024 10:55 AM EDT Additional colony types present in insignificant amounts. Organism Antibiotic Method Susceptibility Escherichia coli Amoxicillin/Clavulanate KRISTIN 16 ug/ml: Intermediate Escherichia coli Ampicillin/Sulbactam KRISTIN >=32 ug/ml: Resistant Escherichia coli Piperacillin/Tazobactam KRISTIN <=4 ug/ml: Susceptible Escherichia coli Cefazolin (Urine) KRISTIN 16 ug/ml: Susceptible Escherichia coli Cefoxitin KRISTIN <=4 ug/ml: Susceptible Escherichia coli Ceftazidime KRISTIN <=0.5 ug/ml: Susceptible Escherichia coli Ceftriaxone KRISTIN <=0.25 ug/ml: Susceptible Escherichia coli Cefepime KRISTIN <=0.12 ug/ml: Susceptible Escherichia coli Meropenem KRISTIN <=0.25 ug/ml: Susceptible Escherichia coli Amikacin KRISTIN 2 ug/ml: Susceptible Escherichia coli Gentamicin KRISTIN >=16 ug/ml: Resistant Escherichia coli Ciprofloxacin KRISTIN <=0.06 ug/ml: Susceptible Escherichia coli Levofloxacin KRISTIN <=0.12 ug/ml: Susceptible Escherichia coli Nitrofurantoin KRISTIN <=16 ug/ml: Susceptible Escherichia coli Trimethoprim/Sulfamethoxazole KRISTIN >=320 ug/ml: Resistant Quang Hurd MD LAB MICROBIOLOGY - G ENERAL ORDERABLES Final Result [facility] ([facility]) [facility] [address] [place] [address], documented in this encounter Visit Diagnoses Diagnosis Frequency of micturition Urinary frequency documented in this encounter Care Teams Adjunct English Instructor Relationship Specialty Start Date End Date Curt Falk MD [address] [place] [address] [place] [address] PCP - General 07/16/21 documented as of this encounter
== END 2024-09-18 10:25 | disposition home or self-care (01) ==
LOC: HO.HPS 09:57
PROVIDERS: PCP Internal Medicine; Visit Provider Hospitalist
DX: R06.02 Shortness of breath (principal); J45.40 Moderate persistent asthma, uncomplicated; G47.33 Obstructive sleep apnea (adult) (pediatric); R10.11 Right upper quadrant pain; I50.9 Heart failure, unspecified
CPT/HCPCS: 99214; G2211

== ENCOUNTER 2024-09-18 09:56 | Outpatient (REF) | payer OTHER, SELFPAY ==
--- NOTE | ~2024-09-18 | XR_ITS ---
EXAMINATION: XR CHEST 2 VIEWS HISTORY: R06.02 - Shortness of breath COMPARISON: Comparison is made with the prior examination dated 09/23/2022. FINDINGS: PA and lateral views of the chest are submitted. The lungs are expanded and clear. There is no pleural effusion, pneumothorax, or pulmonary vascular congestion. The heart is enlarged. There is degenerative disc disease of the spine. XR/XR chest 2V IMPRESSION: Cardiomegaly. No acute cardiopulmonary abnormality. Electronically signed by: Jorge Belcher MD 09/18/2024 03:25 PM EDT
--- NOTE | 2024-09-18 10:42 | ECG_ITS ---
Test Reason : COPD Blood Pressure : */* mmHG Vent. Rate : 77 BPM Atrial Rate : 77 BPM P-R Int : 134 ms QRS Dur : 76 ms QT Int : 358 ms P-R-T Axes : 61 17 80 degrees QTcB Int : 405 ms Normal sinus rhythm Nonspecific ST and T wave abnormality Abnormal ECG When compared with ECG of 23-Sep-2022 13:31, T wave inversion no longer evident in Anterolateral leads Referred By: Ren Romero Electronically Signed By: BRYN JORDAN
[2024-09-18 10:47] LABS: MANUAL DIFF FLAG NO
[2024-09-18 11:16] LABS: Basophils Absolute Auto 0.1 X10*3/uL (0.0-0.2); Basophils Percent Auto 0.8 % (0-2); Eosinophils Absolute Auto 0.4 X10*3/uL (0.0-0.4); Eosinophils Percent Auto 3.4 % (0-4); Hematocrit 36.9 % (37.0-47.0); Hemoglobin 11.6 g/dl (12.0-16.0); Imm Gran Abs Auto 0.19 X10*3/uL (0.00-0.03); Imm Gran Pct Auto 1.8 % (0.0-0.4); Lymphocytes Absolute Auto 3.4 X10*3/uL (1.2-4.9); Lymphocytes Percent Auto 32.5 % (20-40); Mean Corpuscular HGB Conc 31.4 g/dl (31.0-35.0); Mean Corpuscular Hemoglobin 26.9 pg (27.0-33.0); Mean Corpuscular Volume 85.4 fL (80.0-98.0); Mean Platelet Volume 10.9 fL (9.4-12.3); Monocytes Absolute Auto 0.7 X10*3/uL (0.1-1.2); Monocytes Percent Auto 6.3 % (2-11); Neutrophils Absolute Auto 5.7 x10*3/uL (2.0-8.3); Neutrophils Percent Auto 55.2 % (45-73); Platelet Count 218 X10*3/uL (160-400); Red Blood Count 4.32 X10*6/uL (4.20-5.50); Red Cell Distribution Width 15.2 % (11.0-16.0); White Blood Count 10.4 X10*3/uL (4.8-10.8)
[2024-09-18 11:44] LABS: Anion Gap 12 (12-20); Blood Urea Nitrogen 17 mg/dL (9-16); Calcium 9.8 mg/dL (8.4-10.2); Carbon Dioxide 30 mmol/L (22-29); Chloride 105 mmol/L (96-108); Estimated Glomerular Filt Rate 55; Glucose Random 90 mg/dL (60-115); Potassium 3.7 mmol/L (3.3-5.1); Sodium 143 mmol/L (135-145)
[2024-09-18 11:46] LABS: B Type Natriuretic Peptide 13 pg/mL (<100)
[2024-09-18 11:48] LABS: Troponin-I High Sensitivity 4.4 ng/L (<3.5-17.0)
[2024-09-18 12:09] LABS: Erythrocyte Sedimentation Rate 25 MM/HR (0-20)
== END 2024-09-18 09:57 | disposition home or self-care (01) ==
LOC: HO.XRAY 09:56
PROVIDERS: PCP Internal Medicine; Visit Provider Hospitalist
DX: R06.02 Shortness of breath (principal); J45.40 Moderate persistent asthma, uncomplicated; G47.33 Obstructive sleep apnea (adult) (pediatric); R10.11 Right upper quadrant pain; I50.9 Heart failure, unspecified
CPT/HCPCS: 36415; 71046; 80048; 83880; 84484; 85025; 85652; 93005; 99212

== ENCOUNTER → 2024-09-18 10:42 | Outpatient (BNV) | payer OTHER, SELFPAY | PROVIDERS: PCP Internal Medicine; Visit Provider Internal Medicine | DX: R94.31 Abnormal electrocardiogram [ECG] [EKG] (principal); J44.9 Chronic obstructive pulmonary disease, unspecified | CPT/HCPCS: 93010 ==

== ENCOUNTER → 2024-09-18 10:57 | Outpatient (BNV) | payer OTHER, SELFPAY | PROVIDERS: PCP Internal Medicine; Visit Provider Radiology Diagnostic Radiology | DX: I51.7 Cardiomegaly (principal) | CPT/HCPCS: 71046 ==

== ENCOUNTER 2024-09-28 11:29 | Outpatient (AMB) | payer OTHER, SELFPAY ==
[2024-09-28 11:30] VITALS: BP 138/84; PULSE 89; TEMP 36.6; O2SAT 96; BMI 44.3
--- NOTE | 2024-09-28 11:30 | AM.OFFWIN_ITS ---
Intake Vital Signs 09/28/24 11:30 Height 4 ft 11 in Weight 219 lb 2 oz BMI 44.3 BP 138/84 Blood Pressure Location Lt brachial Position Sitting Pulse 89 Pulse Source Pulse Oximeter Temp 97.8 F Temp Source Oral Pulse Oximetry (%) 96 Oxygen Delivery Method Room Air Intake Visit Reasons: EP severe back pain Intake Note: Pt presents to the office today for c/o lower left sided back pain that started about a week ago with no known injury. Patient Tobacco Use Status: Never used Tobacco Allergies Penicillins [PENICILLINS] Allergy (Intermediate, Verified 09/28/24 11:30) RASH HPI HPI Comments History of Present Illness Details This is a 69-year-old female presenting for evaluation of left-sided lower back pain that she has had for the past 1 week. Patient denies any injury or trauma preceding the onset of her symptoms and states that the pain is worse when standing. Patient has been taking Motrin 600 mg every 6 hours for the past 3 days with only minimal improvement. Patient denies any radiation of pain, urinary incontinence, dysuria or urinary frequency. PFSH Medical History Opioid use disorder Abdominal pain Depression Anxiety Insomnia Myalgia, upper arm Osteoarthritis of right knee Lumbar spondylosis Foot pain, bilateral BRIDGETTE (obstructive sleep apnea) Asthma KAMILA positive Urticaria Obesity (BMI 30-39.9) Vitamin D deficiency Chronic interstitial cystitis Irritable bowel syndrome (IBS) Arthralgia Osteoarthritis Esophageal stricture GERD (gastroesophageal reflux disease) Left lumbar radiculopathy CAD (coronary artery disease) Pure hypercholesterolemia Benign essential hypertension Surgical History History of surgery History of total right knee replacement (09/22/21) Hx of cystoscopy Status post balloon dilatation of esophageal stricture (~2005) History of cardiac catheterization History of colonoscopy History of nephrolithotomy with removal of calculi History of tooth extraction Family History Father Hypertension Mother Hypertension Diabetes CVD (cardiovascular disease) Daughter No problems noted. Family/Other FH: mental illness Other Mental health problem Substance abuse Social History Housing: Apartment Are you a primary senior care manager to a significant other at home: No Do you presently have visiting nurse or other home services: No Alcohol intake: never Comment: medicated, see MAR Patient Tobacco Use Status: Never used Tobacco e-Cigarette/Vaping Use: Never Used Second Hand Smoke Exposure: No service: No Current occupational status: disabled Cognitive needs: No Hearing needs: No Vision needs: Yes (Glasses) Review of Systems Const All systems reviewed & are unremarkable except as noted in HPI and below Eyes Reports no additional complaints ENT Reports no additional complaints Card Reports no additional complaints Resp Reports no additional complaints GI Reports no additional complaints Reports no additional complaints Musc Reports back pain, Denies myalgias, Denies arthralgias, Denies limited range of motion, Denies muscle weakness and Denies tingling Skin/Breast Reports system reviewed and no additional complaints, except as documented Neuro Reports no additional complaints and Denies tingling Psych Reports no additional complaints Endo Reports no additional complaints Stanton/Lymph Reports no additional complaints Aller/Immun Reports no additional complaints Physical Exam Vital Signs: Last Vital Signs Temp 97.8 F 09/28/24 11:30 Pulse 89 09/28/24 11:30 BP 138/84 09/28/24 11:30 Pulse Ox 96 09/28/24 11:30 Oxygen Delivery Method Room Air 09/28/24 11:30 BMI result Body Mass Index 44.3 Const General: cooperative, healthy appearing, comfortable, no acute distress, well developed, alert, awake and Physically active Nutritional Appearance: overweight Orientation/consciousness: patient oriented x3 Limitations: no limitations General: Yes no CVA tenderness Back/Spine/Pelvis Back: no CVA tenderness Thoracic/Lumbar Spine: thoracic and lumbar spine normal to inspection, thoraco- lumbar ROM normal, pain with thoraco-lumbar ROM (minimal), paraspinal muscle ten derness (left lumbar) on the left in the mid lumbar and No straight leg raise positive Sacroiliac joints: bilaterally nontender Skin General skin exam: no rashes or lesions noted Neuro General: patient oriented x3 Psych Appearance: grossly normal Mental Status: mental status grossly normal Insight: Good insight present (Psych) Judgement: Good judgement present (Psych) Results AMB Urinalysis, Automated UA Leukoctes 70 Kyara/uL Last Edit by Justine Anand CMA on 09/28/24 11:43 UA Nitrite Negative Last Edit by Justine Anand CMA on 09/28/24 11:43 UA Urobilinogen 0.2 mg/dL Last Edit by Justine Anand CMA on 09/28/24 11:43 UA Protein 0 mg/dL Last Edit by Justine Anand, CARMINA on 09/28/24 11:43 UA pH 6.0 Last Edit by Justine Anand, CARMINA on 09/28/24 11:43 UA Blood 0 Donell/uL Last Edit by Justine Anand, CARMINA on 09/28/24 11:43 UA Specific Ferdinand 1.015 Last Edit by Justine Anand CMA on 09/28/24 11:43 UA Ketone Negative Last Edit by Justine Anand, CARMINA on 09/28/24 11:43 UA Bilirubin 0 mg/dL Last Edit by Justine Anand, CARMINA on 09/28/24 11:43 UA Glucose 0 mg/dL Last Edit by Justine Anand CMA on 09/28/24 11:43 Assessment & Plan Assessment & Plan (1) Lumbar spine strain: Comment: Patient denies any urinary symptoms and her history coupled with her examination is consistent with a left lumbar strain. Patient will be discharged home with anti-inflammatories and muscle relaxants. Code(s): S39.012A - Strain of muscle, fascia and tendon of lower back, initial encounter Qualifiers: Encounter type: sequela Qualified Code(s): S39.012S - Strain of muscle, fascia and tendon of lower back, sequela Plan: Naprosyn 500 mg q.12 hours, methocarbamol 750 mg q.8 hours. Patient is to follow up with her primary care provider within 2 weeks if her symptoms do not resolve and may pursue physical therapy evaluation as an outpatient. Orders: Orders AMB Urinalysis Automated Today Z13.9 - Encounter for screening, unspecified Medications: New naproxen 500 mg PO BID 20 tabs 0RF methocarbamol 750 mg PO QID 20 tabs 0RF Coding Level of Care Code Est Pt Level 3 (23203) Diagnoses Strain of lumbar region, sequela S39.012S Encounter type: sequela Time Spent (min) 20
--- OUTSIDE RECORDS SUMMARY | 2024-09-28 12:26 | XMS_ITS | Encounter Summary ---
Author Organization [facility] Address [address] [place] [address] Care Team Providers Care Printing Shop Supervisor Name Role Phone Curt Falk MD Primary Care Provider + [phone] Encounter Details Date Type Department Care Team (Late st Contact Info) Description 09/14/2024 Lab Requisition [facility] - Main Lab [address] [facility] [place] [phone] Quang Hurd MD [address] [facility] [address] [place] [address] Frequency of micturition Social History Tobacco Use [...] Escherichia coli(A) KRISTIN 09/15/2024 10:55 AM EDT [facility] Other Urine specimen from urethra / Unknown 09/13/2024 09/14/2024 10:29 AM EDT Narrative [facility] - 09/15/2024 10:55 AM EDT Additional [...] MICROBIOLOGY - G ENERAL ORDERABLES Final Result [facility] ([facility]) [facility] [address] [place] [address], documented in this encounter Visit Diagnoses Diagnosis Frequency of micturition Urinary frequency documented in this encounter Care Teams Printing Shop Supervisor Relationship Specialty Start Date End Date Curt Falk MD [address] [place] [address] [place] [address] PCP - General 07/16/21 documented as of this encounter
== END 2024-09-28 11:51 | disposition home or self-care (01) ==
PROVIDERS: PCP Internal Medicine
DX: S39.012S Strain of muscle, fascia and tendon of lower back, sequela (principal); Z13.9 Encounter for screening, unspecified

== ENCOUNTER → 2024-09-28 11:29 | Outpatient (BNVA) | payer OTHER, SELFPAY | PROVIDERS: PCP Internal Medicine; Visit Provider Physician Assistant Medical | DX: S39.012A Strain of muscle, fascia and tendon of lower back, initial encounter (principal); X58.XXXA Exposure to other specified factors, initial encounter; Y93.9 Activity, unspecified; Y92.9 Unspecified place or not applicable; Y99.9 Unspecified external cause status | CPT/HCPCS: 81003; 99212 ==

== ENCOUNTER 2024-10-03 08:18 | Outpatient (REF) | payer OTHER, SELFPAY ==
--- NOTE | ~2024-10-03 | US_ITS ---
CLINICAL HISTORY: R10.9 - Unspecified abdominal pain US abdomen complete Comparison: None Findings: The visualized pancreas head is normal. The visualized aorta and inferior vena cava are normal caliber. The liver is normal in size, right lobe length is 16.6 cm. Mildly increased echogenicity. No apparent contour nodularity. no discrete lesion is visualized in the imaged liver. No intrahepatic bile duct dilatation. The common duct is 4 mm in diameter. The gallbladder is normal. Negative sonographic Wallace sign. The main portal vein is patent with antegrade flow. The right kidney is normal, 11.8 cm in length. The left kidney is normal, 10.2 cm in length. The spleen is normal, 10.2 cm in length. No free fluid in the abdomen. Impression: 1. No acute finding. 2. Echogenic liver parenchyma, non-specific, commonly seen in steatosis or chronic hepatitis. This document has been electronically signed by: Zaria Castro MD on 10/03/2024 12:03:16
== END 2024-10-03 08:19 | disposition home or self-care (01) ==
LOC: HO.US 08:18
PROVIDERS: PCP Internal Medicine; Visit Provider Hospitalist
DX: R10.9 Unspecified abdominal pain (principal)
CPT/HCPCS: 76700

== ENCOUNTER → 2024-10-03 08:22 | Outpatient (BNV) | payer OTHER, SELFPAY | PROVIDERS: PCP Internal Medicine; Visit Provider Radiology Diagnostic Radiology | DX: R10.9 Unspecified abdominal pain (principal) | CPT/HCPCS: 76700 ==

== ENCOUNTER 2024-10-26 13:36 | Outpatient (AMB) | payer OTHER, SELFPAY ==
--- OUTSIDE RECORDS SUMMARY | 2023-11-17 05:45 | XMS_ITS | Continuity of Care Document ---
Author Organization [facility] Address [address] [place] [address] Phone Care Team Providers Care Plant Taxonomy Teacher Name Role Phone Leonor Yousif DMD Unavailable [...] Diagnoses Date Provider Providers Copied on Encounter [facility], [address], [place], [id number], [place] tel:[phone] [facility] Encounter for dental examination and cleaning with abnormal findingsTobacco abuse counselingOther specified counselingRisk for dental caries, highDietary counseling and surveillance David Galvez. [address], [place], [id number], . tel:[phone] Family History Family Member Type Diagnosis Age At Onset No Information Payers Payer name Insurance type Covered libertarian ID Omid otero(s) Dental Medi-[facility] OP [id number] DENTICAL [id number] Social History Type Description Quantity Date Captured [...]
--- NOTE | 2024-10-26 13:40 | A.OFFVIS_ITS ---
Intake Visit Reasons: MAT Embedded Systems Developer Required: Yes Embedded Systems Developer Services: Embedded Systems Developer Present Embedded Systems Developer Name: Georgie Cobb Information Interpreted: clinical only Allergies Penicillins (PENICILLINS) Allergy (Intermediate, Verified 10/26/24 13:47) RASH HPI HPI MAT: Details: She is doing well. She has no complaints [facility] Medical History Opioid use disorder Abdominal pain Depression Anxiety Insomnia Myalgia, upper arm Osteoarthritis of right knee Lumbar spondylosis Foot pain, bilateral BRIDGETTE (obstructive sleep apnea) Asthma KAMILA positive Urticaria Obesity (BMI 30-39.9) Vitamin D deficiency Chronic interstitial cystitis Irritable bowel syndrome (IBS) Arthralgia Osteoarthritis Esophageal stricture GERD (gastroesophageal reflux disease) Left lumbar radiculopathy CAD (coronary artery disease) Pure hypercholesterolemia Benign essential hypertension Surgical History History of surgery History of total right knee replacement (09/22/21) Hx of cystoscopy Status post balloon dilatation of esophageal stricture (~2005) History of cardiac catheterization History of colonoscopy History of nephrolithotomy with removal of calculi History of tooth extraction Family History Father Hypertension Mother Hypertension Diabetes CVD (cardiovascular disease) Daughter No problems noted. Family/Other FH: mental illness Other Mental health problem Substance abuse Social History Housing: Apartment Are you a primary insurance healthcare representative to a significant other at home: No Do you presently have visiting nurse or other home services: No Alcohol intake: never Comment: medicated, see MAR Patient Tobacco Use Status: Never used Tobacco e-Cigarette/Vaping Use: Never Used Second Hand Smoke Exposure: No service: No Current occupational status: disabled Cognitive needs: No Hearing needs: No Vision needs: Yes (Glasses) Review of Systems Const All systems reviewed & are unremarkable except as noted in HPI and below Assessment & Plan Assessment & Plan (1) Opioid use disorder: Comment: She is doing well Code(s): F11.90 - Opioid use, unspecified, uncomplicated Category: Medical Plan: She is doing well She has no concerns Plan Continue Belbuca. See in three months. Medications: New buprenorphine HCl (Belbuca) 150 mcg buccal Q12H 60 ea 2RF 30 days Coding Level of Care Code Est Pt Level 3 (27295) Diagnoses Opioid use disorder F11.90
--- OUTSIDE RECORDS SUMMARY | 2024-10-26 13:40 | XMS_ITS | Data Portability ---
Author Organization [facility], [facility] Address [address] [place] [address] Care Team Providers Care Sql Consultant Name Role Phone HIM CCA OTHER BECKY [...] 20 mg tablet 2023 024 [facility][id number], [address] [facility] [place], [address], 18:26:49 Patient TargetsNo targets recorded. Patient InstructionsNo instructions recorded. Reason for Referral None Reported. Medical Equipment None Reported. Allergies Allergen ID Allergen Name Allergen Category Reaction Reaction Severity Criticality Documentation Date Start Date Code Code System Note Provider Name and Address Organization Details Recorded Time 0346 Product containin g penicilli n (product) medicatio n Not available Not available Not available 02/14/2024 99353 8001 SNOMED Not Available [facility] - production [...] in Arterial blood by Pulse oximetry Systolic And Diastolic Provider Name and Address Organization Details Last Updated DateTime 4 93 /min 98.1 [degF] 20 /min 97 % 97 % 142/74 mm[Hg] Not Available [facility] - production 4 18:02:15 Date Recorded Heart rate Body temperature Respiratory rate Oxygen saturation Oxygen saturation in Arterial blood by Pulse oximetry Systolic And Diastolic Provider Name and Address Organization Details Last Updated DateTime 5 85 /min 98.2 [degF] 16 /min 96 % 96 % 145/70 mm[Hg] Not Available [facility] - production 5 [...] SNOMED-CT Code Diagnosis ICD10 Code Diagnosis Note [id number] Efrain Gomez MD Main - [address] [phone] 05/19/2023 18:01:49 05/20/2023 11:31:35 Exacerbation of intermittent asthma [id number] J45.21 15308 Iris Boo MD Main - [address] [address] 07/23/2024 18:15:24 07/23/2024 19:53:44 Pruritic rash [id number] L28.2 69 year old female being evaluated for a year of intermitte nt pruritic rash. Patient reports having a full body rash that comes and goes, has been seen by mutliple doctors including beef specialist s, and tried multiple antihistam ofe [...] assessment and plan as documented by the relocation services specialist. I provided real-time medical direction for this [...] Davidson Member ID Guarantor Name 07/23/2024 1 [facility] - DOS ON OR AFTER 2022 - DUAL ELIGIBLE - JAIL OPTIONS AND ONE CARE (MEDICARE REPLACEMENT/ADV ANTAGE - HMO) Celia Madrigal [id number] Celia Phillips Ziggysuzy Notes Date Note Type [...] cough, sore throat, fever. 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 Member requesting home visit. Member advised to call 911 with any worsening symptoms. PMH: includes but not limited to HTN, coronary artery disease, asthma, IBD, GERD, anxiety ..................... ..................... ..................... ..................... ..................... ..................... ............... CRC Nurse Triage Notes (Leonor Vizcaino): Comments: No further information required to process visit. ..................... ..................... ..................... ..................... ..................... ..................... ............... Leather Lacer Note From Yuri Bedolla: Encountered patient conscious, [...] both resulted negative; results relayed to [facility]. Skin warm, dry and of appropriate color for ethnicity. Head and neck, free of trauma and edema. JVD. Breath sounds diminished in all hopper and exhibit faint expiratory wheezes in the apexes bilaterally. Abdomen soft, non-tender and non-distended. extremities, free of trauma and edema. [facility] contacted: Duoneb treatment administered. 12 lead EKG performed: sinus rhythm with septal T-wave inversion noted. 30 mg of PO prednisone administered. [facility] to write prescription for further treatment at patient s pharmacy of choice. Red flags discussed [...] would also like to remain at home. Leather Lacer Allergies: Penicillin, Aspirin ..................... ..................... ..................... ..................... ..................... ..................... ............... Disposition: Luann Efrain Gomez MD [address] [facility],[address], [place], [address], [employer] 05/19/2023 19:03:41 07/23/2024 text/html CRC Nurse Triage Notes (aVsu Valenzuela): Reason For Request: allergies/allergic reaction Patient Reports: Rash Denies: Quintanilla Flash, circumferential quintanilla Quintanilla reported with black [...] ..................... ..................... ..................... ..................... ..................... ..................... ............... Leather Lacer Note From Bradford Solorio: This 69-year-old female [...] because of the risks. Patient states the construction accountant started her on Dupixent injections every two weeks. Patient has had two injections in the construction accountant states that this could take two to three months before it starts working. Patient states she went to [facility] over the weekend and was prescribed [...] her PCP on Tuesday and involve the construction accountant if necessary. I instructed her to present to the emergency department for any new or worsening severe symptoms such as chest pain, shortness of breath, dysphagia, high fever, altered mental status. The patient was given the opportunity to ask questions and is agreeable to this plan. ..................... ..................... ..................... ..................... ..................... ..................... ............... [facility] Consulted: Iris Boo ..................... ..................... ..................... ..................... ..................... ..................... ............... Disposition: Fulfilled Iris Boo MD [address] [facility],[address], [place], [address], [employer] 07/23/2024 19:23:45 OBGyn Episode No OBEpisode recorded.
--- OUTSIDE RECORDS SUMMARY | 2024-10-26 13:40 | XMS_ITS | Encounter Summary ---
Author Organization [facility] Address [address] [place] [address] Care Team Providers Care Hospice Registered Nurse Name Role Phone Curt Falk MD Primary Care Provider + [phone] Encounter Details Date Type Department Care Team (Late st Contact Info) Description 09/14/2024 Lab Requisition [facility] - Main Lab [address] [facility] [place] [phone] Quang Hurd MD [address] [facility] [address] [place] [address] Frequency of micturition Social History Tobacco Use [...] Escherichia coli(A) KRISTIN 09/15/2024 10:55 AM EDT [facility] Other Urine specimen from urethra / Unknown 09/13/2024 09/14/2024 10:29 AM EDT Narrative [facility] - 09/15/2024 10:55 AM EDT [...] MICROBIOLOGY - G ENERAL ORDERABLES Final Result [facility] ([facility]) [facility] [address] [place] [address], documented in this encounter Visit Diagnoses Diagnosis Frequency of micturition Urinary frequency documented in this encounter Care Teams Hospice Registered Nurse Relationship Specialty Start Date End Date Curt Falk MD [address] [place] [address] [place] [address] PCP - General 07/16/21 documented as of this encounter
--- OUTSIDE RECORDS SUMMARY | 2024-10-26 13:40 | XMS_ITS | Patient Health Record ---
Author Organization [facility] Address [address] [place] [address] Care Team Providers Care Sap Bw Bi Developer Name Role Phone Dileep HIGGINS, Curt Primary Care Provider Perez Lee Jr Unavailable [phone] Allergies Allergen (clinical drug ingredient) Drug/Non Drug Allergy documented on EMR Reaction Allergy Type Onset Date Status Penicillin Unknown Drug Allergy Active Reason For Referral No Information Plan Of Treatment No Information Insurance Providers Payer Name Payer Address Payer Phone Subscriber Number Group Number Insured Name Patient Relationship to Insured Coverage Start Date Coverage End Date [facility] [address] [address] [place], [place] [id number] MARCI CHATMAN Self - patient is the insured Medical (General) History Medical History History ICD Code 09-29-2005 egd with balloon dilation 07-17-2004 colon and egd gerd irritable bowel syndrome panic attacks depression anxiety elevated cholesterol chronic pain syndrome nephrolithiasis status post lithotripsy cystitis Surgical History Surgery Date(Month/Year) oophorectomy hysterectomy
== END 2024-10-26 14:27 | disposition home or self-care (01) ==
LOC: HO.HCC 13:36
PROVIDERS: PCP Internal Medicine; Visit Provider Internal Medicine
DX: F11.90 Opioid use, unspecified, uncomplicated (principal)
CPT/HCPCS: 99213

== ENCOUNTER → 2024-10-26 13:36 | Outpatient (BNVA) | payer OTHER, SELFPAY | PROVIDERS: PCP Internal Medicine; Visit Provider Internal Medicine | DX: F11.90 Opioid use, unspecified, uncomplicated (principal) | CPT/HCPCS: 99212 ==

== ENCOUNTER 2024-10-29 09:09 | Outpatient (REF) | payer OTHER, SELFPAY ==
--- OUTSIDE RECORDS SUMMARY | 2023-11-17 05:45 | XMS_ITS | Continuity of Care Document ---
Author Organization [facility] Address [address] [place] [address] Phone Care Team Providers Care Mechanical Product Engineer Name Role Phone Leonor Yousif DMD Unavailable U navailable Procedures Procedure [...] Diagnoses Date Provider Providers Copied on Encounter [facility], [address], [place], [id number], [place] tel:[phone] [facility] Encounter for dental examination and cleaning with abnormal findingsTobacco abuse counselingOther specified counselingRisk for dental caries, highDietary counseling and surveillance David Galvez. [address], [place], [id number], . tel:[phone] Family History Family Member Type Diagnosis Age At Onset No Information Payers Payer name Insurance type Covered alliance party ID Omid otero(s) Dental Medi[facility] OP [id number] DENTICAL [id number] Social History Type Description Quantity Date Captured [...]
--- NOTE | ~2024-10-29 | XR_ITS ---
EXAMINATION: XR PELVIS CLINICAL INFORMATION: M25.559 - Pain in unspecified hip COMPARISON: None available. TECHNIQUE: AP view of the pelvis. FINDINGS: Generator projects over the right iliac crest. There is a metallic wire that is intact leading to a neurostimulator probably in the right S2 neural foramen. No fracture is identified. Right hip: There is acetabular over coverage. Lateral Center edge angle measures 54 degrees. There is moderate marginal osteophyte formation. There is minimal axial joint space narrowing. Left hip: There is acetabular over coverage. Lateral Center edge angle measures 44 degrees. There is moderate osteophyte formation. There is minimal axial joint space narrowing. Sclerotic lesion is demonstrated in the central left iliac ala. The shape and location is most consistent with a benign bone island. XR/XR pelvis 1-2V IMPRESSION: Bilateral coxa profunda. Bilateral mild osteoarthritis of the hips. Electronically signed by: Eric Prasad MD 10/29/2024 03:21 PM EDT
--- OUTSIDE RECORDS SUMMARY | 2024-10-30 09:32 | XMS_ITS | Patient Health Record ---
Author Organization [facility] Address [address] [place] [address] Care Team Providers Care Barytes Grinder Name Role Phone Dileep HIGGINS, Curt Primary [...] Insured Coverage Start Date Coverage End Date [facility] [address] [address] [place], [place] [id number] MARCI CHATMAN Self - patient is the insured Medical (General) History Medical History History ICD Code 09-29-2005 egd with balloon dilation 07-17-2004 colon and egd gerd irritable bowel syndrome panic attacks depression anxiety elevated cholesterol chronic pain syndrome nephrolithiasis status post lithotripsy cystitis Surgical History Surgery Date(Month/Year) oophorectomy hysterectomy
--- OUTSIDE RECORDS SUMMARY | 2024-10-30 09:32 | XMS_ITS | Encounter Summary ---
Author Organization [facility] Address [address] [place] [address] Care Team Providers Care Meatcutter Name Role Phone Curt Falk MD Primary Care Provider + [phone] Encounter Details Date Type Department Care Team (Late st Contact Info) Description 09/14/2024 Lab Requisition [facility] - Main Lab [address] [facility] [place] [phone] Quang Hurd MD [address] [facility] [address] [place] [address] Frequency of micturition Social History Tobacco Use [...] Escherichia coli(A) KRISTIN 09/15/2024 10:55 AM EDT [facility] Other Urine specimen from urethra / Unknown 09/13/2024 09/14/2024 10:29 AM EDT Narrative [facility] - 09/15/2024 10:55 AM [...] MICROBIOLOGY - G ENERAL ORDERABLES Final Result [facility] ([facility]) [facility] [address] [place] [address], documented in this encounter Visit Diagnoses Diagnosis Frequency of micturition Urinary frequency documented in this encounter Care Teams Meatcutter Relationship Specialty Start Date End Date Curt Falk MD [address] [place] [address] [place] [address] PCP - General 07/16/21 documented as of this encounter
== END 2024-10-29 09:10 | disposition home or self-care (01) ==
LOC: HO.HOSX 09:09
PROVIDERS: Visit Provider Physician Assistant
DX: M16.11 Unilateral primary osteoarthritis, right hip (principal); M25.551 Pain in right hip; M25.552 Pain in left hip; Z79.1 Long term (current) use of non-steroidal anti-inflammatories (NSAID); Z79.891 Long term (current) use of opiate analgesic; Z79.899 Other long term (current) drug therapy
CPT/HCPCS: 72170; 99212

== ENCOUNTER 2024-10-29 15:05 | Outpatient (AMB) | payer OTHER, SELFPAY ==
--- NOTE | 2024-10-29 15:17 | A.OFFVIS_ITS ---
Vital Signs 10/29/24 15:18 Height 4 ft 11 in Weight 219 lb BMI 44.2 Intake Visit Reasons: New prob-B/L hip pain Intake Note: Celia is a 69 year old female who presents today for a new problem visit with complaints of Bilateral Hip Pain. Patient was on a Pain Contract with Pain Management at the end of 2023 but was suspended indefinitely due to non compliance. Patient complains of left hip greater than right. She feels like the pain radiates into the groin, occasionally causing weakness in her lower legs. Denies numbness and tingling of the lower extremities. Patient also shares it is difficult to use stairs. She also finds it hard to stand on the same position for too long. She denies any injuries or surgeries to the hips. Hx of Right TKA 09/22/21 NE Hide Sorter Required: No Allergies Penicillins (PENICILLINS) Allergy (Intermediate, Verified 10/29/24 15:32) RASH Medication List - Last Reconciled 11/01/24 by Luanne Menjivar PA-C acetaminophen 650 mg (2 x 325 mg) PO Q6H PRN 30 days [ADULT PULL-UPS As directed] [ADULT PULL-UPS As directed] albuterol sulfate 2.5 mg continuous nebulization Q6H PRN albuterol sulfate 90 mcg/actuation 2 inhalations inhalation Q6H PRN 30 days atorvastatin 10 mg PO BEDTIME 90 days blood pressure kit-extra large As directed buprenorphine HCl (Belbuca) 150 mcg buccal Q12H 30 days escitalopram oxalate 20 mg PO DAILY 90 days ezetimibe 10 mg PO DAILY fluticasone propion-salmeterol 115-21 mcg/actuation (Advair HFA) 2 puffs inhalation Q12H 30 days furosemide (Lasix) 20 mg PO DAILY 5 days ibuprofen 600 mg PO Q8H PRN lorazepam mg PO BID PRN methocarbamol 750 mg PO QID naloxone 4 mg/actuation (Narcan) 4 mg intranasal Q3M PRN naproxen 500 mg PO BID [NEBULIZER and all related supplies As directed] omeprazole 40 mg PO DAILY 90 days [Pure Wick External Catheters -Urine Collection System As directed Pure Wick External Catheters -Urine Collection System] [PureWick As directed] trazodone 100 mg PO BEDTIME PRN [wipes As directed] HPI HPI New prob-B/L hip pain: Details: 69-year-old female presents to the office today for bilateral hip pain. She denies injury. She has a long history with pain management for chronic pain of her knees and her back. Patient states that she has pain in the left which is worse than the right. The pain radiates into the groin region. She develops weakness bilaterally. [facility] Medical History Opioid use disorder Abdominal pain Depression Anxiety Insomnia Myalgia, upper arm Osteoarthritis of right knee Lumbar spondylosis Foot pain, bilateral BRIDGETTE (obstructive sleep apnea) Asthma KAMILA positive Urticaria Obesity (BMI 30-39.9) Vitamin D deficiency Chronic interstitial cystitis Irritable bowel syndrome (IBS) Arthralgia Osteoarthritis Esophageal stricture GERD (gastroesophageal reflux disease) Left lumbar radiculopathy CAD (coronary artery disease) Pure hypercholesterolemia Benign essential hypertension Surgical History History of surgery History of total right knee replacement (09/22/21) Hx of cystoscopy Status post balloon dilatation of esophageal stricture (~2005) History of cardiac catheterization History of colonoscopy History of nephrolithotomy with removal of calculi History of tooth extraction Family History Father Hypertension Mother Hypertension Diabetes CVD (cardiovascular disease) Daughter No problems noted. Family/Other FH: mental illness Other Mental health problem Substance abuse Social History Housing: Apartment Are you a primary physician primary care sports medicine to a significant other at home: No Do you presently have visiting nurse or other home services: No Alcohol intake: never Comment: medicated, see MAR Patient Tobacco Use Status: Never used Tobacco e-Cigarette/Vaping Use: Never Used Second Hand Smoke Exposure: No service: No Current occupational status: disabled Cognitive needs: No Hearing needs: No Vision needs: Yes (Glasses) Review of Systems Const All systems reviewed & are unremarkable except as noted in HPI and below Physical Exam Vital Signs: BMI result Body Mass Index 44.2 Const General: cooperative and no acute distress Orientation/consciousness: patient oriented x3 Resp Effort & Inspection: normal respiratory effort and able to speak in complete sentences Cardio Peripheral pulses: Peripheral pulses 2+ throughout Neuro General: patient oriented x3 Extrem Other: Bilateral hips are normal to inspection. She has no pain with range of motion of the hips. Mild discomfort with hip flexion. No pain over the SI joint. Neurovascularly intact. Results Reviewed Results Reviewed: X-rays of both hips obtained which are negative for acute fractures or dislocations. She does have mild arthritis. Assessment & Plan Assessment & Plan (1) Primary osteoarthritis of right hip: Code(s): M16.11 - Unilateral primary osteoarthritis, right hip Category: Medical (2) Bilateral hip pain: Code(s): M25.551 - Pain in right hip; M25.552 - Pain in left hip Category: Medical Plan I explained to the patient the source of her discomfort is likely from deconditioning of both lower extremities. I did recommend a course of physical therapy to work on strengthening and conditioning exercises which she declined. She is not a candidate for hip replacement as there is no limiting factors. Patient will continue activities as tolerated and if there is any concerns she will contact our office. Orders: Orders XR pelvis 1-2V 10/29/24 M25.559 - Pain in unspecified hip Coding Level of Care Code Est Pt Level 3 (87450) Complex EM visit Add On G2211 Diagnoses Primary osteoarthritis of right hip M16.11 Bilateral hip pain M25.551; M25.552
[2024-10-29 15:18] VITALS: BMI 44.2
--- OUTSIDE RECORDS SUMMARY | 2024-10-29 16:21 | XMS_ITS | Patient Health Record ---
Author Organization [facility] Address [address] [place] [address] Care Team Providers Care Pricing Manager Name Role Phone Dileep HIGGINS, Curt Primary Care Provider Perez Lee Jr Unavailable Allergies Allergen (clinical drug ingredient) Drug/Non Drug Allergy documented on EMR Reaction Allergy Type Onset Date Status Penicillin Unknown Drug Allergy Active Reason For Referral No Information Plan Of Treatment No Information Insurance Providers Payer Name Payer Address Payer Phone Subscriber Number Group Number Insured Name Patient Relationship to Insured Coverage Start Date Coverage End Date [facility] [address] [address] [place], [place] [id number] MARCI CHATMAN Self - patient is the insured Medical (General) History Medical History History ICD Code 09-29-2005 egd with balloon dilation 07-17-2004 colon and egd gerd irritable bowel syndrome panic attacks depression anxiety elevated cholesterol chronic pain syndrome nephrolithiasis status post lithotripsy cystitis Surgical History Surgery Date(Month/Year) oophorectomy hysterectomy
--- OUTSIDE RECORDS SUMMARY | 2024-10-29 16:21 | XMS_ITS | Encounter Summary ---
Author Organization [facility] Address [address] [place] [address] Care Team Providers Care Registered Travel Nurse Name Role Phone Curt Falk MD Primary Care Provider + [phone] Encounter Details Date Type Department Care Team (Late st Contact Info) Description 09/14/2024 Lab Requisition [facility] - Main Lab [address] [facility] [place] [phone] Quang Hurd MD [address] [facility] [address] [place] [address] Frequency of micturition Social History Tobacco Use [...] Escherichia coli(A) KRISTIN 09/15/2024 10:55 AM EDT [facility] Other Urine specimen from urethra / Unknown 09/13/2024 09/14/2024 10:29 AM EDT Narrative [facility] - 09/15/2024 10:55 [...] MICROBIOLOGY - G ENERAL ORDERABLES Final Result [facility] ([facility]) [facility] [address] [place] [address], documented in this encounter Visit Diagnoses Diagnosis Frequency of micturition Urinary frequency documented in this encounter Care Teams Registered Travel Nurse Relationship Specialty Start Date End Date Curt Falk MD [address] [place] [address] [place] [address] PCP - General 07/16/21 documented as of this encounter
--- OUTSIDE RECORDS SUMMARY | 2024-10-29 16:22 | XMS_ITS | Data Portability ---
Author Organization [facility] [place] [employer] [facility] Address [address] [place] [address] Care Team Providers Care Accounts Payable Coordinator Name Role Phone HIM CCA OTHER BECKY [...] Orders prednisone 20 mg tablet 2023 024 [facility][id number], [address] [facility] [place], [address], 18:26:49 Patient TargetsNo targets recorded. Patient InstructionsNo instructions recorded. Reason for Referral None Reported. Medical Equipment None Reported. Allergies Allergen ID Allergen Name Allergen Category Reaction Reaction Severity Criticality Documentation Date Start Date Code Code System Note Provider Name and Address Organization Details Recorded Time 1007 Product containin g penicilli n (product) medicatio n Not available Not available Not available 02/14/2024 43222 8001 SNOMED Not Available [employer] - production [...] SNOMED-CT Code Diagnosis ICD10 Code Diagnosis Note [id number] Efrain Gomez MD Main - [address] [address] 05/19/2023 18:01:49 05/20/2023 11:31:35 Exacerbation of intermittent asthma [id number] J45.21 [id number] Iris Boo MD Main - [address] [address] 07/23/2024 18:15:24 07/23/2024 19:53:44 Pruritic rash [id number] L28.2 69 year old female being evaluated for a year of intermitte nt pruritic rash. Patient reports having a full body rash that comes and goes, has been seen by mutliple doctors including behavioral specialist s, and tried multiple antihistam ofe [...] assessment and plan as documented by the battery parts assembler. I provided real-time medical direction for this [...] Davidson Member ID Guarantor Name 07/23/2024 1 [facility] - DOS ON OR AFTER 2022 - DUAL ELIGIBLE - LONGTERM OPTIONS AND ONE CARE (MEDICARE REPLACEMENT/ADV ANTAGE - HMO) Celia Madrigal [id number] Celia Phillips Ziggysuzy Notes Date Note Type [...] cough, sore throat, fever. Member called her software educator, and she cannot be seen until June. Member requesting home visit. Member advised to call 911 with any worsening symptoms. PMH: includes but not limited to HTN, coronary artery disease, asthma, IBD, GERD, anxiety ..................... ..................... ..................... ..................... ..................... ..................... ............... CRC Nurse Triage Notes (Leonor Vizcaino): Comments: No further information required to process visit. ..................... ..................... ..................... ..................... ..................... ..................... ............... Food And Drug Inspector Note From Yuri Bedolla: Encountered patient conscious, [...] performed, both resulted negative; results relayed to [facility]. Skin warm, dry and of appropriate color for ethnicity. Head and neck, free of trauma and edema. JVD. Breath sounds diminished in all hopper and exhibit faint expiratory wheezes in the apexes bilaterally. Abdomen soft, non-tender and non-distended. extremities, free of trauma and edema. [facility] contacted: Duoneb treatment administered. 12 lead EKG performed: sinus rhythm with septal T-wave inversion noted. 30 mg of PO prednisone administered. [facility] to write prescription for further treatment [...] would also like to remain at home. Food And Drug Inspector Allergies: Penicillin, Aspirin ..................... ..................... ..................... ..................... ..................... ..................... ............... Disposition: Luann Efrain Gomez MD [address] [facility],[address], [place], [address], [employer] 05/19/2023 19:03:41 07/23/2024 text/html CRC Nurse Triage [...] ..................... ..................... ..................... ..................... ..................... ..................... ............... Food And Drug Inspector Note From Bradford Solorio: This 69-year-old female [...] because of the risks. Patient states the song lyricist started her on Dupixent injections every two weeks. Patient has had two injections in the song lyricist states that this could take two to three months before it starts working. Patient states she went to [facility] over the weekend and was prescribed [...] her PCP on Tuesday and involve the song lyricist if necessary. I instructed her to present to the emergency department for any new or worsening severe symptoms such as chest pain, shortness of breath, dysphagia, high fever, altered mental status. The patient was given the opportunity to ask questions and is agreeable to this plan. ..................... ..................... ..................... ..................... ..................... ..................... ............... [facility] Consulted: Iris Boo ..................... ..................... ..................... ..................... ..................... ..................... ............... Disposition: Fulfilled Iris Boo MD [address] [facility],[address], [place], [address], [employer] 07/23/2024 19:23:45 OBGyn Episode No OBEpisode recorded.
== END 2024-10-29 15:49 | disposition home or self-care (01) ==
LOC: HO.HOS 15:06
PROVIDERS: PCP Internal Medicine; Visit Provider Physician Assistant
DX: M16.11 Unilateral primary osteoarthritis, right hip (principal); M25.551 Pain in right hip; M25.552 Pain in left hip
CPT/HCPCS: 99213; G2211

== ENCOUNTER → 2024-10-29 15:07 | Outpatient (BNV) | payer OTHER, SELFPAY | PROVIDERS: Visit Provider Radiology Diagnostic Radiology | DX: M25.551 Pain in right hip (principal); M25.552 Pain in left hip | CPT/HCPCS: 72170 ==

== ENCOUNTER 2024-11-26 11:07 | Outpatient (AMB) | payer OTHER, SELFPAY ==
--- NOTE | 2024-11-26 11:10 | A.OFFVIS_ITS ---
Vital Signs 11/26/24 11:11 Height 4 ft 11 in Weight 212 lb 11.937 oz BMI 43.0 BP 156/76 H Blood Pressure Location Lt brachial Position Sitting Pulse 72 Pulse Source Pulse Oximeter Pulse Oximetry (%) 95 Oxygen Delivery Method Room Air Intake Visit Reasons: Obstructive sleep apnea Accompanied by: Self / Same As Patient Allergies Penicillins (PENICILLINS) Allergy (Intermediate, Verified 11/26/24 11:13) RASH HPI Comments Details: The patient is a 69-year-old woman with known history of asthma in addition to severe uticaria. the patient and follow closely by Dermatology. Seems to respond very well to prednisone. She tried and failed CellCept and currently is tolerating the Dupixent. However, she has worsening respiratory symptoms. She has been having chest tightness and wheezing. She does have a rescue inhaler that she uses often with partial resolution of symptoms. In addition to the the prednisone hopes of breathing. During the office visit with primary care doctor she did complaint of the symptoms she did have a chest x-ray demonstrating no acute disease. 02/01/2022 the patient is here for a pulmonary follow-up visit. Overall she continues to do well from a respiratory status. Ever since she started Dupixent injections for her significant a topic dermatitis her asthma is improved dramatically as well. She has not had to use any prednisone. She continues to take the Breo daily. She has not had to use any rescue medicine. Patient has been complaining of back pain. She does follow-up pain clinic. She has not had a formal chest x-ray. Will go ahead and request imaging studies at this time. She is also having significant sciatica like symptoms. She has been on multiple pain medications without any significant relief. She will be following up with her primary care doctor soon. I did recommend she can not take a small course of prednisone to see if this alleviates her level of inflammation. Patient still has issues with daytime drowsiness. Her [place] score is 8/24. Partly is more because she wakes up multiple times because of interstitial cystitis then it is from sleep apnea. The patient would like to hold off on any PAP therapy at this time. She is going to continue to work on positional therapy. 06/25/2024 the patient is here for a pulmonary follow-up visit. She is feeling better now. The patient also was taken Dupixent for her eczema and atopic dermatitis. Although she is now off it since she has been stable from the asthm a standpoint, but, develop worsening pruritic rash. She is going to be monitoring closely. The patient also has been continue to use positional therapy. Denies any daytime drowsiness. [place] score is around 6. therefore no additional testing necessary at this time. She also is complaining of right upper quadrant pain while eating. She is concerned becuase her sister was recently diagnosed with stage 4 liver cancer. 09/18/2024 the patient is here for a sick visit. She has had worsening respiratory symptoms for last few weeks. She feels shortness of breath with minimal activity. Specially will going up a flight of stairs. Moderate severity. She has also has some issues with shortness of breath laying flat. She has been having issues with her allergies in her rash. She has been on Dupixent for the last 3 months and she also has been on prednisone about 20 mg daily because her rash is very significant and when she stops taking the prednisone the rash comes back. She has been closely working with the thermodynamicist to try to get her off the Dupixent and without any avail. I did give her some ideas of steroid sparing agents that she should discuss with her thermodynamicist. Seems like she has any significant volume overload status right now which is likely impacting her respiratory capacity. Likely have him orthopnea so therefore will go ahead and give her some diuretics. The patient should also have an EKG chest x-ray and blood work specially because of her significant symptoms. She may need a cardiology evaluation. Hopefully she can get off the prednisone so we can minimize her volume status that is getting worse with the fluid retention. Patient has a follow-up in a few months if she has any issues prior to that she will call for an earlier assessment. 11/26/2024 the patient is here for a pulmonary follow-up visit. Overall she is doing okay. She is tolerating her respiratory inhalers with good effect. Patient recently saw an knot tying operator and was placed on allergy medications and her rashes better. She is no longer on Dupixent as it was not effective. She does have the Advair inhaler and also her rescue inhaler. We did talk about the use her them make sure that she is adherent to her therapy. She will continue with the allergy medication as prescribed. Her blood pressure was indeed a little elevated today. The patient will follow-up with her primary care doctor and also her edge bander operator. We did review her last chest x-ray that she had back in September 2024 demonstrating increased cardiac size. Her last echocardiogram that we have on record is from 2018 where shows that she has a moderate systolic left ventricular dysfunction. Therefore, I did encourage her to reach out to her edge bander operator to make an appointment for follow-up. If she has any issues she can always call and we can request an echocardiogram here. She will follow-up sometime in the spring if any issues arise from pulmonary standpoint she will call for further recommendations. [facility] Medical History Opioid use disorder Abdominal pain Depression Anxiety Insomnia Myalgia, upper arm Osteoarthritis of right knee Lumbar spondylosis Foot pain, bilateral BRIDGETTE (obstructive sleep apnea) Asthma KAMILA positive Urticaria Obesity (BMI 30-39.9) Vitamin D deficiency Chronic interstitial cystitis Irritable bowel syndrome (IBS) Arthralgia Osteoarthritis Esophageal stricture GERD (gastroesophageal reflux disease) Left lumbar radiculopathy CAD (coronary artery disease) Pure hypercholesterolemia Benign essential hypertension Surgical History History of surgery History of total right knee replacement (09/22/21) Hx of cystoscopy Status post balloon dilatation of esophageal stricture (~2005) History of cardiac catheterization History of colonoscopy History of nephrolithotomy with removal of calculi History of tooth extraction Family History Father Hypertension Mother Hypertension Diabetes CVD (cardiovascular disease) Daughter No problems noted. Family/Other FH: mental illness Other Mental health problem Substance abuse Social History Housing: Apartment Are you a primary ocular care technologist to a significant other at home: No Do you presently have visiting nurse or other home services: No Alcohol intake: never Comment: medicated, see MAR Patient Tobacco Use Status: Never used Tobacco e-Cigarette/Vaping Use: Never Used Second Hand Smoke Exposure: No service: No Current occupational status: disabled Cognitive needs: No Hearing needs: No Vision needs: Yes (Glasses) Review of Systems Const Denies daytime sleepiness and Denies night sweats ENT Denies change in voice, Denies lip swelling, Denies mouth pain, Reports nasal congestion, Reports nasal discharge and Denies tongue swelling Card Denies chest pain, Reports leg edema, Reports dyspnea on exertion, Reports orthopnea and Reports paroxysmal nocturnal dyspnea Resp Reports cough, Reports dyspnea on exertion and Denies wheezing GI Reports abdominal pain Musc Reports as per HPI, Reports back pain and Reports radiating pain into limb Skin/Breast Reports pruritus and Reports rash Neuro Denies Neuro-related abnormal movements Psych Denies no additional complaints Stanton/Lymph Denies easy bleeding and Denies lymphadenopathy Aller/Immun Denies lip swelling, Denies tongue swelling and Denies wheezing Physical Exam Vital Signs: Last Vital Signs Pulse 72 11/26/24 11:11 BP 156/76 H 11/26/24 11:11 Pulse Ox 95 11/26/24 11:11 Oxygen Delivery Method Room Air 11/26/24 11:11 BMI result Body Mass Index 43.0 Const General: alert Neck Neck: Yes normal visual inspection, Yes full ROM and Yes no lymphadenopathy Chest Chest palpation & inspection: normal inspection of the chest Resp Effort & Inspection: normal respiratory effort Auscultation: no wheezes and diminished lung sounds Cardio Rate: regular rate Rhythm: regular rhythm Heart sounds: S1 normal heart sound present and S2 normal heart sound present GI Palpation (GI): Soft to palpation and nontender Auscultation: normal bowel sounds Skin General skin exam: rashes and/or lesions noted Assessment & Plan Assessment & Plan (1) Dyspnea: Code(s): R06.00 - Dyspnea, unspecified Category: Medical Qualifiers: Dyspnea type: shortness of breath Qualified Code(s): R06.02 - Shortness of breath (2) Asthma: Code(s): J45.909 - Unspecified asthma, uncomplicated Category: Medical Qualifiers: Asthma complication type: uncomplicated Asthma persistence: persistent Asthma severity: moderate Qualified Code(s): J45.40 - Moderate persistent asthma, uncomplicated (3) BRIDGETTE (obstructive sleep apnea): Code(s): G47.33 - Obstructive sleep apnea (adult) (pediatric) Category: Medical (4) Abdominal pain: Code(s): R10.9 - Unspecified abdominal pain Category: Medical Qualifiers: Abdominal location: right upper quadrant Qualified Code(s): R10.11 - Right upper quadrant pain (5) CHF (congestive heart failure): Code(s): I50.9 - Heart failure, unspecified Category: Medical Qualifiers: Heart failure chronicity: unspecified Heart failure type: unspecified Qualified Code(s): I50.9 - Heart failure, unspecified Plan Advair HFA CARITO as needed positional sleep therapy. No PSG at this time diuresis as tolerated Needs to have cardiology f/u, repeat ECHO Follow-up 8 months Medications: Changed From albuterol sulfate 2.5 mg continuous nebulization Q6H PRN shortness of breath or wheezing To albuterol sulfate 2.5 mg (3 mL) continuous nebulization Q6H PRN 180 mL 11RF shortness of breath or wheezing 30 days Refilled fluticasone propion-salmeterol 115-21 mcg/actuation (Advair HFA) 2 puffs inhalation Q12H 12 grams 11RF 30 days albuterol sulfate 90 mcg/actuation 2 inhalations inhalation Q6H PRN 18 grams 12RF shortness of breath or wheezing 30 days J44.9 - Chronic obstructive pulmonary disease, unspecified Coding Level of Care Code Est Pt Level 4 (83683) Diagnoses Shortness of breath R06.02 Dyspnea type: shortness of breath Moderate persistent asthma without complication J45.40 Asthma complication type: uncomplicated Asthma persistence: persistent Asthma severity: moderate BRIDGETTE (obstructive sleep apnea) G47.33 Right upper quadrant abdominal pain R10.11 Abdominal location: right upper quadrant Congestive heart failure, unspecified HF chronicity, unspecified heart failure type I50.9 Heart failure chronicity: unspecified Heart failure type: unspecified Time Spent (min) 17
[2024-11-26 11:11] VITALS: BP 156/76; PULSE 72; O2SAT 95; BMI 43.0
--- OUTSIDE RECORDS SUMMARY | 2024-11-26 11:50 | XMS_ITS | Patient Health Record ---
Author Organization [facility] Address [address] [place] [address] Care Team Providers Care Rotoprinter Name Role Phone Dileep HIGGINS, Curt Primary [...] Insured Coverage Start Date Coverage End Date [facility] [address] [address] [place], [place] [id number] MARCI CHATMAN Self - patient is the insured Medical (General) History Medical History History ICD Code 09-29-2005 egd with balloon dilation 07-17-2004 colon and egd gerd irritable bowel syndrome panic attacks depression anxiety elevated cholesterol chronic pain syndrome nephrolithiasis status post lithotripsy cystitis Surgical History Surgery Date(Month/Year) oophorectomy hysterectomy
--- OUTSIDE RECORDS SUMMARY | 2024-11-26 11:50 | XMS_ITS | Encounter Summary ---
Author Organization [facility] Address [address] [place] [address] Care Team Providers Care Home Health Speech Therapist Name Role Phone Curt Falk MD Primary Care Provider + [phone] Encounter Details Date Type Department Care Team (Late st Contact Info) Description 09/14/2024 Lab Requisition [facility] - Main Lab [address] [facility] [place] [phone] Quang Hurd MD [address] [facility] [address] [place] [address] Frequency of micturition Social History Tobacco Use [...] Escherichia coli(A) KRISTIN 09/15/2024 10:55 AM EDT [facility] Other Urine specimen from urethra / Unknown 09/13/2024 09/14/2024 10:29 AM EDT Narrative [facility] - 09/15/2024 10:55 AM EDT [...] MICROBIOLOGY - G ENERAL ORDERABLES Final Result [facility] ([facility] [address] [place] [address], documented in this encounter Visit Diagnoses Diagnosis Frequency of micturition Urinary frequency documented in this encounter Care Teams Home Health Speech Therapist Relationship Specialty Start Date End Date Curt Falk MD [address] [place] [address] [place] [address] PCP - General 07/16/21 documented as of this encounter
== END 2024-11-26 11:29 | disposition home or self-care (01) ==
LOC: HO.HPS 11:07
PROVIDERS: PCP Internal Medicine; Visit Provider Hospitalist
DX: R06.02 Shortness of breath (principal); J45.40 Moderate persistent asthma, uncomplicated; G47.33 Obstructive sleep apnea (adult) (pediatric); R10.11 Right upper quadrant pain; I50.9 Heart failure, unspecified
CPT/HCPCS: 99214

== ENCOUNTER → 2024-11-26 11:07 | Outpatient (BNVA) | payer OTHER, SELFPAY | PROVIDERS: PCP Internal Medicine; Visit Provider Hospitalist | DX: G47.33 Obstructive sleep apnea (adult) (pediatric) (principal); R10.11 Right upper quadrant pain; R06.02 Shortness of breath; I50.9 Heart failure, unspecified | CPT/HCPCS: 99212 ==

== ENCOUNTER 2024-12-03 13:00 | Outpatient (AMB) | payer OTHER, SELFPAY ==
--- OUTSIDE RECORDS SUMMARY | 2023-11-17 05:45 | XMS_ITS | Continuity of Care Document ---
Author Organization [facility] [employer] Address [address] [place] [address] Phone Care Team Providers Care Sugar House Supervisor Name Role Phone Leoonr Yousif DMD Unavailable U navailable Procedures Procedure [...] Diagnoses Date Provider Providers Copied on Encounter [facility], [address] [place], [place], [id number], [place] tel:[phone] [facility] Encounter for dental examination and cleaning with abnormal findingsTobacco abuse counselingOther specified counselingRisk for dental caries, highDietary counseling and surveillance David Galvez. [address], [place], [id number], . tel:[phone] Family History Family Member Type Diagnosis Age At Onset No Information Payers Payer name Insurance type Covered democrat ID Omid otero(s) Dental Med[facility] OP [id number] DENTICAL [id number] Social History Type Description Quantity Date Captured [...]
--- NOTE | 2024-12-03 13:04 | MHC.OFFVIS ---
Vital Signs 12/03/24 13:07 Height 4 ft 11 in Weight 218 lb BMI 44.0 Pulse 95 Pulse Source Pulse Oximeter Pulse Oximetry (%) 96 Oxygen Delivery Method Room Air Intake Visit Reasons: mat visit f/u dosage Business Services Tech Required: Yes Business Services Tech Services: Business Services Tech Present Business Services Tech Name: Georgie Romero CMA Information Interpreted: clinical only Allergies Penicillins (PENICILLINS) Allergy (Intermediate, Verified 12/03/24 13:08) RASH HPI HPI mat visit f/u dosage: Details: She has started buprenorphine/naloxone strips up to 1/2 bid. She reports dyspepsia despite taking omeprazole and leg rash/swelling. She has constipation also. [facility] Medical History Opioid use disorder Abdominal pain Depression Anxiety Insomnia Myalgia, upper arm Osteoarthritis of right knee Lumbar spondylosis Foot pain, bilateral BRIDGETTE (obstructive sleep apnea) Asthma KAMILA positive Urticaria Obesity (BMI 30-39.9) Vitamin D deficiency Chronic interstitial cystitis Irritable bowel syndrome (IBS) Arthralgia Osteoarthritis Esophageal stricture GERD (gastroesophageal reflux disease) Left lumbar radiculopathy CAD (coronary artery disease) Pure hypercholesterolemia Benign essential hypertension Surgical History History of surgery History of total right knee replacement (09/22/21) Hx of cystoscopy Status post balloon dilatation of esophageal stricture (~2005) History of cardiac catheterization History of colonoscopy History of nephrolithotomy with removal of calculi History of tooth extraction Family History Father Hypertension Mother Hypertension Diabetes CVD (cardiovascular disease) Daughter No problems noted. Family/Other FH: mental illness Other Mental health problem Substance abuse Social History Housing: Apartment Are you a primary daycare teacher to a significant other at home: No Do you presently have visiting nurse or other home services: No Alcohol intake: never Comment: medicated, see MAR Patient Tobacco Use Status: Never used Tobacco e-Cigarette/Vaping Use: Never Used Second Hand Smoke Exposure: No service: No Current occupational status: disabled Cognitive needs: No Hearing needs: No Vision needs: Yes (Glasses) Review of Systems Const All systems reviewed & are unremarkable except as noted in HPI and below Physical Exam Vital Signs: Last Vital Signs Pulse 95 12/03/24 13:07 Pulse Ox 96 12/03/24 13:07 Oxygen Delivery Method Room Air 12/03/24 13:07 BMI result Body Mass Index 44.0 Const General: cooperative Assessment & Plan Assessment & Plan (1) Opioid use disorder: Comment: She may have reaction to naloxone start buprenorphine tabs 2mg bid See in a week or two. Code(s): F11.90 - Opioid use, unspecified, uncomplicated Category: Medical Plan: miralax for constipation,may need to get OTC. Medications: New buprenorphine HCl 2 mg sublingual BID 14 tabs 0RF 7 days polyethylene glycol 3350 (Miralax) 17 grams PO ONCE PRN 119 grams 3RF constipation Coding Level of Care Code Est Pt Level 3 (15770) Diagnoses Opioid use disorder F11.90
[2024-12-03 13:07] VITALS: PULSE 95; O2SAT 96; BMI 44.0
--- OUTSIDE RECORDS SUMMARY | 2024-12-03 13:53 | XMS_ITS | Encounter Summary ---
Author Organization [facility] Address [address] [place] [address] Care Team Providers Care Electric Power Line Examiner Name Role Phone Curt Falk MD Primary Care Provider + [phone] Encounter Details Date Type Department Care Team (Late st Contact Info) Description 09/14/2024 Lab Requisition [facility] - Main Lab 299 [facility] [place] [phone] Quang Hurd MD [address] [facility] [address] [place] [address] Frequency of micturition Social History Tobacco Use [...] Author No 09/05/2024 7:45 AM EDT Epifanio Balck RN * Because of a physical, mental, [...] documented in this encounter Plan of Treatment Upcoming Encounters Date Type Department Care Team (Late st Contact Info) Description 12/10/2024 10:50 AM EDT Office Visit [facility] [address] [phone] Yohana Loza MD [address] [place] [address] documented as of this encounter Procedures Procedure [...] / Unknown 09/13/2024 09/14/2024 10:29 AM EDT [facility] - 09/15/2024 10:55 AM EDT Additional [...] Escherichia coli Trimethoprim/Sulfamethoxazole KRISTIN >=320 ug/ml: Resistant us Quang Hurd MD LAB MICROBIOLOGY - G ENERAL ORDERABLES Final Result [facility] [address] [place] [address], [place] [phone] documented in this encounter Visit Diagnoses Diagnosis Frequency of micturition Urinary frequency documented in this encounter Care Teams Electric Power Line Examiner Relationship Specialty Start Date End Date Curt Falk MD [address] [place] [address] [address] [place] PCP - General 07/16/21 documented as of this encounter
--- OUTSIDE RECORDS SUMMARY | 2024-12-03 13:54 | XMS_ITS | Patient Health Record ---
Author Organization [facility] Address [address] [place] [phone] Care Team Providers Care Carton Stamper Name Role Phone Dileep HIGGINS, Curt Primary [...] Insured Coverage Start Date Coverage End Date [facility] [address] [address] [place], [place] [id number] MARCI CHATMAN Self - patient is the insured Medical (General) History Medical History History ICD Code 09-29-2005 egd with balloon dilation 07-17-2004 colon and egd gerd irritable bowel syndrome panic attacks depression anxiety elevated cholesterol chronic pain syndrome nephrolithiasis status post lithotripsy cystitis Surgical History Surgery Date(Month/Year) oophorectomy hysterectomy
== END 2024-12-03 13:50 | disposition home or self-care (01) ==
LOC: HO.HCC 13:00
PROVIDERS: PCP Internal Medicine; Visit Provider Internal Medicine
DX: F11.90 Opioid use, unspecified, uncomplicated (principal)
CPT/HCPCS: 99213

== ENCOUNTER → 2024-12-03 13:00 | Outpatient (BNVA) | payer OTHER, SELFPAY | PROVIDERS: PCP Internal Medicine; Visit Provider Internal Medicine | DX: F11.90 Opioid use, unspecified, uncomplicated (principal) | CPT/HCPCS: 99212 ==

== ENCOUNTER 2024-12-05 13:30 | Outpatient (AMB) | payer OTHER, SELFPAY ==
[2024-12-05 13:33] VITALS: BP 110/54; PULSE 72; RESP 18; O2SAT 96; BMI 43.4
--- NOTE | 2024-12-05 13:33 | MHC.PC.OV ---
Vital Signs 12/05/24 13:33 Height 4 ft 11 in Weight 215 lb 2 oz BMI 43.4 BP 110/54 L Blood Pressure Location Lt brachial Position Sitting Respiration 18 Pulse 72 Pulse Source Pulse Oximeter Temp Source Temporal Artery Scan Pulse Oximetry (%) 96 Oxygen Delivery Method Room Air Intake Visit Reasons: Follow Up Information Security Required: No Accompanied by: Self / Same As Patient Allergies Penicillins (PENICILLINS) Allergy (Intermediate, Verified 12/05/24 14:02) RASH Medication List - Last Reconciled 12/05/24 by Curt Falk MD acetaminophen 650 mg (2 x 325 mg) PO Q6H PRN 30 days [ADULT PULL-UPS As directed] [ADULT PULL-UPS As directed] albuterol sulfate 2.5 mg (3 mL) continuous nebulization Q6H PRN 30 days albuterol sulfate 90 mcg/actuation 2 inhalations inhalation Q6H PRN 30 days albuterol-budesonide 90-80 mcg/actuation (Airsupra) 2 inhalations inhalation BID PRN atorvastatin 10 mg PO BEDTIME 90 days blood pressure kit-extra large As directed buprenorphine HCl 2 mg sublingual BID 7 days buprenorphine-naloxone 8-2 mg (Suboxone) 1 film sublingual BID 30 days escitalopram oxalate 20 mg PO DAILY 90 days ezetimibe 10 mg PO DAILY fluticasone propion-salmeterol 115-21 mcg/actuation (Advair HFA) 2 puffs inhalation Q12H 30 days furosemide (Lasix) 20 mg PO DAILY 5 days ibuprofen 600 mg PO Q8H PRN lorazepam mg PO BID PRN methocarbamol 750 mg PO QID naloxone 4 mg/actuation (Narcan) 4 mg intranasal Q3M PRN naproxen 500 mg PO BID [NEBULIZER and all related supplies As directed] omeprazole 40 mg PO DAILY 90 days polyethylene glycol 3350 (Miralax) 17 grams PO ONCE PRN [Pure Wick External Catheters -Urine Collection System As directed Pure Wick External Catheters -Urine Collection System] [PureWick As directed] trazodone 100 mg PO BEDTIME PRN [wipes As directed] Tobacco use date assessed: 12/05/24 Fall risk assessment: No Falls in past year Last assessed Fall Risk: 12/05/24 Dental Screening Dental Screen Date: 12/05/24 Did you have a dental visit in the last 12 months?: No Did you have a dental problem in the last 6 months where you did not have access to dental care?: No Was dental information given to patient?: No HPI Follow Up HPI Details Patient comes in today for her follow up visit States that she has been experiencing on and off chest pains as well as recurrent SOB lately, especially with exertion She was seen by pulmonary at [place] for follow up recently and is being referred for echocardiogram for further evaluation She also has a cardiology follow up at [place] scheduled in the next week or two Patient reports also that her hands often feel numb lately States that she has been experiencing frequent symptoms of acid reflux and heartburns as well lately She denies any headaches or dizziness No nausea/vomiting, no abdominal pain No change in bowel habits noted She was not able to get her follow up labs done prior to coming in for her appointment today - states that she completely forgot to go and get her labs done Adds that her previous request for a Purewick system for her urinary incontinence was not approved by her insurance and will need to have this appealed - she is seeing Dr. Cardona in [place] for urology follow up and will discuss this further with them [facility] Medical History Opioid use disorder Abdominal pain Depression Anxiety Insomnia Myalgia, upper arm Osteoarthritis of right knee Lumbar spondylosis Foot pain, bilateral BRIDGETTE (obstructive sleep apnea) Asthma KAMILA positive Urticaria Obesity (BMI 30-39.9) Vitamin D deficiency Chronic interstitial cystitis Irritable bowel syndrome (IBS) Arthralgia Osteoarthritis Esophageal stricture GERD (gastroesophageal reflux disease) Left lumbar radiculopathy CAD (coronary artery disease) Pure hypercholesterolemia Benign essential hypertension Surgical History History of surgery History of total right knee replacement (09/22/21) Hx of cystoscopy Status post balloon dilatation of esophageal stricture (~2005) History of cardiac catheterization History of colonoscopy History of nephrolithotomy with removal of calculi History of tooth extraction Family History Father Hypertension Mother Hypertension Diabetes CVD (cardiovascular disease) Daughter No problems noted. Family/Other FH: mental illness Other Mental health problem Substance abuse Social History Housing: Apartment Are you a primary direct care counselor to a significant other at home: No Do you presently have visiting nurse or other home services: No Alcohol intake: never Comment: medicated, see MAR Patient Tobacco Use Status: Never used Tobacco e-Cigarette/Vaping Use: Never Used Second Hand Smoke Exposure: No service: No Current occupational status: disabled Cognitive needs: No Hearing needs: No Vision needs: Yes (Glasses) Questionnaire PHQ-9 Over the last 2 weeks, how often have you been bothered by any of the following problems? 1. Little interest or pleasure in doing things: not at all 2. Feeling down, depressed, or hopeless: not at all 3. Trouble falling or staying asleep, or sleeping too much: not at all 4. Feeling tired or having little energy: not at all 5. Poor appetite or overeating: not at all 6. Feeling bad about yourself - or that you are a failure or have let yourself or your family down: not at all 7. Trouble concentrating on things, such as reading the newspaper or watching television: not at all 8. Moving or speaking so slowly that other people could have noticed. Or the opposite - being so fidgety or restless that you have been moving around a lot more than usual: not at all 9. Thoughts that you would be better off or of hurting yourself in some way: not at all Total score: 0 Depression Screening Interpretation: Negative Depression Screening Done: Yes 67794 - PHQ-9 Billing: Yes Source: Developed by Drs. Jorge Diallo, Yumiko Irvin, Celestino Banda and colleagues, with an educational mari from [employer]. Thrive Questionnaire Date Thrive assessed: 12/05/24 I am a: Patient What is your living situation today?: I choose not to answer this question Within the past 12 months, did the food you bought not last and you didn't have the money to get more?: I choose not to answer this question Within the past 12 months, did you worry whether your food would run out before you got money to buy more?: I choose not to answer this question Do you have trouble paying for medicines?: I choose not to answer this question Do you have trouble getting transportation to medical appointments?: I choose not to answer this question Do you have trouble paying your heating and electricity bill?: I choose not to answer this question Do you have trouble taking care of your child, family member or friend?: I choose not to answer this question Do you have trouble with day-to-day activities such as bathing, preparing meals, shopping, managing finances, etc.?: I choose not to answer this question Are you currently unemployed and looking for a job?: I choose not to answer this question Are you interested in more education?: I choose not to answer this question Please select the resources that you would like help with: None Currently or been in a relationship where the following occur: I choose not to answer THRIVE Score: 0 AUDIT C Alcohol Use Questionnaire (AUDIT-C) 1. How often do you have a drink containing alcohol?: Never 3. How often do you have six or more drinks on one occasion?: Never Total Score: 0 Score Reviewed/Action Taken: Yes ADRIANA-7 AMB Questionnaire ADRIANA-7 Date ADRIANA - 7 assessed: 12/05/24 Feeling nervous, anxious, or on edge: 0 = Not at all Not being able to stop or control worryin = Not at all Worrying too much about different things: 0 = Not at all Trouble relaxin = Not at all Being so restless that it is hard to sit still: 0 = Not at all Becoming easily annoyed or irritable: 0 = Not at all Feeling afraid as if something awful might happen: 0 = Not at all Total ADRIANA-7 score (0-4 normal; 5-9 mild; 10-14 moderate; 15-21 severe): 0 Source: Developed by Drs. Jorge Diallo, Yumiko Irvin, Celestino Banda and colleagues, with an educational mari from [employer]. Review of Systems Const Denies chills, Reports fatigue, Denies fever(s) and Denies headache(s) ENT Denies dysphagia, Denies dizziness, Denies otalgia, Denies headache(s), Denies neck pain, Denies odynophagia and Denies sore throat Card Reports chest pain (recurrent - see HPI), Denies palpitations and Reports dyspnea (on and off lately, especially with exertion - see HPI) Resp Denies chest congestion, Denies cough, Reports dyspnea (on and off lately, especially with exertion - see HPI) and Denies wheezing GI Denies abdominal pain, Denies constipation, Denies dysphagia, Reports heartburn (frequent lately), Denies diarrhea, Denies nausea, Denies odynophagia and Denies vomiting Denies difficulty voiding, Reports nocturia, Reports dysuria (on and off - has chronic IC - symptoms have improved slightly with Botox), Reports urinary incontinence (at times) and Reports urinary urgency (at times) Musc Details: recurrent bilateral inguinal pain and associated bilateral lower extremity pain/weakness Reports back pain (over the right lower back), Reports arthralgias (involving multiple joints - right knee and hip and right shoulder), Denies neck pain and Reports radiating pain into limb (into the right thigh and leg; right shoulder pain going into neck/arm) Skin/Breast Details: (+) scattered itchy rash all over Reports pruritus Neuro Denies dizziness and Denies headache(s) Psych Reports anxiety Endo Reports fatigue and Denies palpitations Aller/Immun Denies wheezing Physical exam (Primary Care) Vital Signs: Last Vital Signs Pulse 72 12/05/24 13:33 Resp 18 12/05/24 13:33 BP 110/54 L 12/05/24 13:33 Pulse Ox 96 12/05/24 13:33 Oxygen Delivery Method Room Air 12/05/24 13:33 BMI result Body Mass Index 43.4 Tobacco/Smoking Status: Tobacco use Status Tobacco use date assessed 12/05/24 12/05/24 13:41 Patient Tobacco Use Status Never used Tobacco 12/05/24 13:41 Tobacco use type 07/26/23 14:03 e-Cigarette/Vaping Use Never Used 12/05/24 13:41 PHQ-9: PHQ-9 Score PHQ-9: Total score 0 12/11/24 05:59 Depression Screening Interpretation: Negative Thrive Assessment: Date of Thrive Assessment Date Thrive assessed 12/05/24 12/05/24 13:41 Currently or been in a relationship where the following occur: I choose not to answer Const General: no acute distress and alert HENMT Throat: Yes posterior oropharynx normal and Yes tonsils normal (no TP congestion noted) Neck Neck: Yes supple and No lymphadenopathy Thyroid: Thyroid normal Resp Auscultation: clear to auscultation bilaterally, no rales and no wheezes Cardio Rate: regular rate Rhythm: regular rhythm Heart sounds: no murmurs GI Palpation (GI): Soft to palpation and nontender Auscultation: normal bowel sounds General: Yes no CVA tenderness Back/Spine/Pelvis Back: no CVA tenderness Thoracic/Lumbar Spine: paraspinal muscle tenderness on the right and lumbar spinal tenderness (chronic) Skin Other: (+) scattered erythematous pruritic papular rash all over Extrem General: Yes no clubbing, cyanosis or edema Right upper extremity: shoulder/upper arm Details: tenderness Location: of the A-C joint and abnormal ROM (ROM limited due to pain - unable to raise right arm above shoulder level) Right lower extremity: hip/thigh Details: tenderness Location: of the hip Location: anteriorly and knee Details: tenderness; no swelling Left lower extremity: hip/thigh Details: tenderness Location: of the hip Location: anteriorly and knee Details: tenderness; no swelling Coding Level of Care Code Est Pt Level 4 (47539) Diagnoses Pure hypercholesterolemia E78.00 Bilateral hip pain M25.551; M25.552 Bilateral leg weakness R29.898 Urticarial rash L50.9 Exertional dyspnea R06.09 Moderate persistent asthma without complication J45.40 Asthma complication type: uncomplicated Asthma persistence: persistent Asthma severity: moderate Gastroesophageal reflux disease without esophagitis K21.9 Esophagitis presence: without esophagitis Insomnia, unspecified type G47.00 Insomnia type: unspecified Anxiety F41.9 Episode of recurrent major depressive disorder, unspecified depression episode severity F33.9 Active/Remission status: currently active Depression Type: major depressive disorder Major depression episode severity: unspecified Major depression recurrence: recurrent Obesity (BMI 30-39.9) E66.9 Additional Codes PHQ-9 - 03772 - PHQ-9 Billing: Yes ([id number]) Assessment & Plan Assessment & Plan (1) Pure hypercholesterolemia: Code(s): E78.00 - Pure hypercholesterolemia, unspecified Category: Medical Plan: Patient was not able to get follow-up labs done prior to coming in for her appointment today and she is instructed to try to get these done DESEAN Reinforce low-cholesterol diet Continue Atorvastatin 10 mg QD and Ezetimibe 10 mg QD Will recheck her labs and fasting lipids in 4 months for follow-up (2) Bilateral hip pain: Code(s): M25.551 - Pain in right hip; M25.552 - Pain in left hip Category: Medical Plan: Repeat x-rays of both hips done back in August 2024 revealed (+) mild osteoarthrosis in both coxofemoral joints but no gross changes overall from previous imaging studies X-rays of the right hip done back in 2021 revealed (+) moderate arthritis changes in the right hip Follow up with orthopedics as scheduled (3) Bilateral leg weakness: Code(s): R29.898 - Other symptoms and signs involving the musculoskeletal system Category: Medical Plan: Have advised patient that her recent bilateral leg weakness is likely related to her hip pathology / arthritis She is advised that physical therapy may help her but we will wait and see what orthopedics would recommend first (4) Urticarial rash: Code(s): L50.9 - Urticaria, unspecified Category: Medical Plan: Patient has been breaking out repeatedly in an itchy rash all over for a while now and she feels that this is getting worse lately Continue oral Prednisone PRN for now She has beenl referred again to allergy/immunology for further evaluation and management and she is still waiting for an appointment to see them (5) Exertional dyspnea: Code(s): R06.09 - Other forms of dyspnea Category: Medical Plan: She is currently following up with pulmonary at [place] and states that they recommended that she get an echocardiogram DESEAN for further evaluation of her symptoms - echocardiogram ordered (6) Asthma: Code(s): J45.909 - Unspecified asthma, uncomplicated Category: Medical Qualifiers: Asthma complication type: uncomplicated Asthma persistence: persistent Asthma severity: moderate Qualified Code(s): J45.40 - Moderate persistent asthma, uncomplicated Plan: Controlled Continue Dupixent 200 mg SQ every 2 weeks, Breo Ellipta 200-25 mcg 1 inhalation QD, Montelukast 10 mg QD and Albuterol HFA 2 inhalations every 6 hours as needed Dupixent seems to be helping with patient's asthma but she feels that this is not helping with her pruritic rash at all Follow-up with pulmonary as scheduled (7) GERD (gastroesophageal reflux disease): Code(s): K21.9 - Gastro-esophageal reflux disease without esophagitis Category: Medical Qualifiers: Esophagitis presence: without esophagitis Qualified Code(s): K21.9 - Gastro-esophageal reflux disease without esophagitis Plan: Dietary restrictions reinforced Continue Omeprazole 40 mg QD (8) Insomnia: Code(s): G47.00 - Insomnia, unspecified Category: Medical Qualifiers: Insomnia type: unspecified Qualified Code(s): G47.00 - Insomnia, unspecified Plan: Sleep hygiene reinforced States that her Quetiapine helps with her sleep at night (9) Anxiety: Code(s): F41.9 - Anxiety disorder, unspecified Category: Medical Plan: Continue Clonazepam 1 mg 3 times a day as needed and Bupropion ER 200 mg QD in AM (10) Depression: Code(s): F32.9 - Major depressive disorder, single episode, unspecified Category: Medical Qualifiers: Active/Remission status: currently active Depression Type: major depressive disorder Major depression episode severity: unspecified Major depression recurrence: recurrent Qualified Code(s): F33.9 - Major depressive disorder, recurrent, unspecified Plan: Continue Quetiapine 200 mg Q HS; is also on Bupropion ER 200 mg QD Follow-up with Psychiatry as scheduled (11) Obesity (BMI 30-39.9): Code(s): E66.9 - Obesity, unspecified Category: Medical Plan: Reinforced diet; exercise and weight loss may be unrealistic and limited due to her physical issues but she is advised to try to stay as active as she can Plan Follow up in 4 months Orders: Orders CA echo transthoracic complete 12/05/24 R06.09 - Other forms of dyspnea
--- OUTSIDE RECORDS SUMMARY | 2024-12-05 14:25 | XMS_ITS | Encounter Summary ---
Author Organization [facility] Address [address] [place] [address] Care Team Providers Care Vp Ad Sales West Name Role Phone Curt Falk MD Primary Care Provider + [phone] Encounter Details Date Type Department Care Team (Late st Contact Info) Description 09/14/[address] [facility] Lab [address] [facility] [place] [id number] Quang Hurd MD [address] [facility] [address] [place] [address] Frequency of micturition Social History Tobacco Use [...] Description 12/10/2024 10:50 AM EDT Office Visit [facility] [address] [address] Yohana Loza MD [address] [place] [address] documented as of this encounter Procedures Procedure Name Priority Date/Time Associated Diagnosis Comments BACTERIAL IDENTIFICATION AND SUSCEPTIBILITY, AEROBIC Routine 09/13/2024 12:00 AM EDT Frequency of micturition documented in this encounter Results * (ABNORMAL) Bacterial identification and susceptibility, aerobic (09/13/2024 12:00 AM EDT) Culture, Bacterial ID and Sensitivity Escherichia coli(A) KRISTIN 09/15/2024 10:55 AM EDT [facility] Other Urine specimen from urethra / Unknown 09/13/2024 09/14/2024 10:29 AM EDT [facility] - 09/15/2024 10:55 AM EDT Additional [...] - G ENERAL ORDERABLES Final Result [facility] [address] [place] [address], [place] [phone] documented in this encounter Visit Diagnoses Diagnosis Frequency of micturition Urinary frequency documented in this encounter Care Teams Vp Ad Sales West Relationship Specialty Start Date End Date Curt Falk MD [address] [place] [address] Dr [address] [place] PCP - General 07/16/21 documented as of this encounter
--- OUTSIDE RECORDS SUMMARY | 2024-12-05 14:25 | XMS_ITS | Patient Health Record ---
Author Organization [facility] Address [address] [place] [address] Care Team Providers Care Mathematical Engineer Name Role Phone Dileep HIGGINS, Curt Primary Care Provider Perez Lee Jr Unavailable [phone] Allergies Allergen (clinical drug ingredient) Drug/Non Drug Allergy documented on EMR Reaction Allergy Type Onset Date Status Penicillin Unknown Drug Allergy Active Reason For Referral No Information Plan Of Treatment No Information Insurance Providers Payer Name Payer Address Payer Phone Subscriber Number Group Number Insured Name Patient Relationship to Insured Coverage Start Date Coverage End Date [facility] [address] [address] [place], [place] [id number] MARCI CHATMAN Self - patient is the insured Medical (General) History Medical History History ICD Code 09-29-2005 egd with balloon dilation 07-17-2004 colon and egd gerd irritable bowel syndrome panic attacks depression anxiety elevated cholesterol chronic pain syndrome nephrolithiasis status post lithotripsy cystitis Surgical History Surgery Date(Month/Year) oophorectomy hysterectomy
== END 2024-12-05 14:21 | disposition home or self-care (01) ==
LOC: HO.HMCH 13:31
PROVIDERS: PCP Internal Medicine; Visit Provider Internal Medicine
DX: E78.00 Pure hypercholesterolemia, unspecified (principal); Z68.41 Body mass index [BMI] 40.0-44.9, adult; E66.9 Obesity, unspecified; M25.551 Pain in right hip; M25.552 Pain in left hip; R29.898 Other symptoms and signs involving the musculoskeletal system; L50.9 Urticaria, unspecified; R06.09 Other forms of dyspnea; J45.40 Moderate persistent asthma, uncomplicated; K21.9 Gastro-esophageal reflux disease without esophagitis; G47.00 Insomnia, unspecified; F41.9 Anxiety disorder, unspecified

== ENCOUNTER → 2024-12-05 13:30 | Outpatient (BNVA) | payer OTHER, SELFPAY | PROVIDERS: PCP Internal Medicine; Visit Provider Internal Medicine | DX: M25.552 Pain in left hip (principal); E78.00 Pure hypercholesterolemia, unspecified; R29.898 Other symptoms and signs involving the musculoskeletal system; L50.9 Urticaria, unspecified; R06.09 Other forms of dyspnea; J45.40 Moderate persistent asthma, uncomplicated; K21.9 Gastro-esophageal reflux disease without esophagitis; G47.00 Insomnia, unspecified; F41.9 Anxiety disorder, unspecified; F33.9 Major depressive disorder, recurrent, unspecified; E66.9 Obesity, unspecified; Z68.41 Body mass index [BMI] 40.0-44.9, adult | CPT/HCPCS: 96127; 99212 ==

== ENCOUNTER 2024-12-19 14:15 | Outpatient (AMB) | payer OTHER, SELFPAY ==
--- OUTSIDE RECORDS SUMMARY | 2024-12-10 10:50 | XMS_ITS | Encounter Summary ---
Author Organization [facility] Address [address] [place] [address] Care Team Providers Care Housekeeping And Laundry Team Leader Name Role Phone Curt Falk MD Primary Care Provider + [phone] Reason for Referral * Cardiac Stress Testing (Routine) - Pending Review Specialty Diagnoses / Procedures Referred By Sal davison Referred To Contact Diagnoses Chest pain at rest Dyspnea on exertion Procedures PET myocardial perfusion imaging UT MYOCARDIAL IMAGING PET PERFUSION STUDY SINGLE STUDY AT REST OR STRESS UT MYOCARDIAL IMAGING PET PERFUSION STUDY MULTI STUDIES AT REST AND STRESS Yohana Wallace MD [address] [place] [address] Phone: tel: fax: [facility] Referral ID Status Reason Start Date Expiration Date V isits Requested Visits Authorized [id number] Pending Review 12/10/2024 12/10/2025 3 3 Reason for Visit * Reason Comments Follow-up Encounter Details Date Type Department Care Team (Latest Contact Info) Description 12/10/2024 10:50 AM EDT Office Visit [facility] [address] [facility] [address] [place] [id number] Yohana Wallace MD [address] [place] [address] Dyspnea on exertion (Primary Dx); Chest pain at rest; Primary hypertension; Mixed hyperlipidemia Social History Tobacco Use Types Packs/Day Years [...] Sign Reading Time Taken Comments Blood Pressure 140/70 12/10/2024 10:34 AM EDT Pulse 71 12/10/2024 10:34 AM EDT Temperature - - Respiratory Rate - - Oxygen Saturation - - Inhaled Oxygen Concentration - - Weight 97.5 kg (215 lb) 12/10/2024 10:34 AM EDT Height 149.9 cm (4' 11 ) 12/10/2024 10:34 AM EDT Body Mass Index 43.42 12/10/2024 10:34 AM EDT documented in this encounter Functional Status * Are you deaf or do you have serious difficulty hearing? Answer Date of Assessment Author No 10/01/2024 3:24 PM EDT Heather Hager RN * Are you blind or do you have serious difficulty seeing, even when wearing glasses? Answer Date of Assessment Author No 10/01/2024 3:24 PM EDT Heather Hager RN * Do you have serious difficulty walking or climbing stairs? Answer Date of Assessment Author No 10/01/2024 3:24 PM EDT Heather Hager RN * Do you have serious difficulty dressing or bathing? Answer Date of Assessment Author No 10/01/2024 3:24 PM EDT Heather Hager RN * Because of a physical, mental, or emotional condition, do you have serious difficulty doing errandsalone such as visiting the doctor? Answer Date of Assessment Author No 10/01/2024 3:24 PM EDT Heather Hager RN documented as of this encounter Mental Status * Because of a physical, mental, or emotional condition, do you have serious difficulty concentrating, remembering, or making decisions? (5 years old or older) Answer Entry Date Author No 10/01/2024 3:24 PM EDT Heather Hager RN documented in this encounter Ordered Prescriptions Prescription Sig Dispense Quantity Refills Last Filled Start Date End Date amLODIPine (NORVASC) 5 mg tablet Take 0.5 tablets (2.5 mg total) by mouth 1 (one) time each day. 15 each 12/10/2024 nitroglycerin (NITROSTAT) 0.[address] 1 tablet (0.4 mg total) under the tongue every 5 (five) minutes if needed for chest pain. May repeat dose every 5 minutes for up to 3 doses total. 20 tablet 11 12/10/2024 documented in this encounter Progress Notes * Yohana Wallace MD - 12/10/2024 10:50 AM EDT Check blood pressures at home and write them down. We will call to schedule the special stress test I am starting amlodipine 2.5mg once daily-take in the AM with food. I am also sending you with a trial of nitroglycerine under the tongue ONLY NEEDED for chest pain >5min. Consider GLP-1 agonist injection medicine for weight loss * Yohana Wallace MD - 12/10/2024 10:50 AM EDT [facility] PCP: Curt Falk MD I have obtained verbal consent from Celia Horne prior to the recording. I have advisedCelia Parikhgarrettsuzy Horne that she may refuse the recording and require the recording to be turned off at any time during this encounter. Celia Horne is a 69 y.o. female. She presents for cardiac follow up. She has the following cardiac issues: 1. Atypical chest pains-has had 2 negative prior cardiac caths-1 in 2008 and 1 in 2014-both showingno significant coronary disease 2. Dyspnea on exertion 3. Hypertension 4. Hyperlipidemia She also has a history of asthma-for which she sees Dr. Ren Romero at [facility] pulmonology clinic, gastroesophageal reflux disease with esophageal strictures, lumbar radiculopathy, osteoarthritis, and morbid obesity. History of Present Illness Recently, she has been struggling with increasing dyspnea on exertion. It has had a gradual onset. She also notes that she is continuing to have atypical chest pains. There is really no clear triggerfor these pains. They can last a few seconds to 5 minutes. On average, these pains occur 2 or 3 times a week and are described as being sharp in nature. She had an appointment with Dr. Romero. Whorecommended diagnostic imaging and electrocardiography. A chest radiograph revealed cardiomegaly, and she reports that the electrocardiogram was also abnormal (we do not have an official copy to verify). Her primary care ordered an echocardiogram but I am uncertain if he knew that we recently did an echocardiogram in April 2023 which was unremarkable. Blood pressure measurements have been inconsistent, with systolic readings ranging from 110 mmHg toas high as 180 mmHg systolic. The patient does not perform home blood pressure monitoring. The patient is currently on a low dose of atorvastatin for hyperlipidemia, with lipid panels monitored everythree months by her primary care. No laboratory work was performed during this visit, as the last blood work was conducted three months ago. The patient reports experiencing myalgia when the atorvastatin dose was previously increased. The patient expresses a desire for weight loss and is interestedin pharmacologic interventions. She forgot to bring it up during her last primary care visit. The patient reports frequent episodes of gastroesophageal reflux characterized by a burning sensation, which is exacerbated by certain dietary triggers. The patient has not attempted [id number]-qvqgigcwltljcie such as calcium carbonate (Tums) or magnesium hydroxide/aluminum hydroxide (Rolaids). Current management includes omeprazole, which initially provided symptomatic relief but has become less effective over time. FAMILY HISTORY - Mother: at age 85 from what sounds like heart failure. ACTIVE MEDICATIONS: Current Outpatient Medications Medication Instructions acetaminophen (TYLENOL) 325 mg tablet 2 tablets, Every 6 hours PRN albuterol HFA (PROAIR HFA ; PROVENTIL HFA ; VENTOLIN HFA) 90 mcg/actuation inhaler 2 puffs, Every 4hours PRN amLODIPine (NORVASC) 2.5 mg, oral, Daily atorvastatin (LIPITOR) 10 mg, Nightly buprenorphine HCL 150 mcg, 2 times daily escitalopram (LEXAPRO) 20 mg, Daily ezetimibe (ZETIA) 10 mg, Daily hydrOXYzine HCL (ATARAX) 25 mg, oral, 3 times daily ibuprofen (ADVIL,MOTRIN) 600 mg, Every 8 hours PRN loratadine (CLARITIN) 10 mg, Daily LORazepam (ATIVAN) 0.5 mg, Every 8 hours PRN montelukast (SINGULAIR) 10 mg, Daily PRN naloxone (NARCAN) 4 mg/actuation nasal spray KIT (Take home med ONLY) 1 spray, nasal, See admin instructions, EVERY 3MIN PRN FOR OPOID OD nitroglycerin (NITROSTAT) 0.4 mg, sublingual, Every 5 min PRN, May repeat dose every 5 minutes for up to 3 doses total. omeprazole (PriLOSEC) [address] capsule 1 capsule, Daily traZODone (DESYREL) 100 mg, Nightly PAST MEDICAL HISTORY: Patient Active Problem List Diagnosis Date Noted Date Diagnosed Gastroesophageal reflux disease without esophagitis 08/27/2024 Chronic renal impairment, stage 3 (moderate) ([facility] V24, [facility] V28) 08/27/2024 Asthma 08/27/2024 Resolved Problems No resolved problems to display. ALLERGIES: Allergies Allergen Reactions Penicillins Rash SOCIAL HISTORY: Social History Tobacco Use Smoking status: Never Smokeless tobacco: Former Substance Use Topics Alcohol use: Never PHYSICAL EXAM: Vitals: 12/10/24 1034 BP: (!) 140/70 Pulse: 71 Weight: 97.5 kg (215 lb) Height: 1.499 m (59 ) Physical Exam General Appearance: Obese, pleasant, cooperative, no acute distress. Neck: Supple, no jugular venous distention. Respiratory: Clear to auscultation bilaterally. Cardiovascular: Regular rate and rhythm, no murmurs or gallops. Gastrointestinal: Soft, nontender to palpation. Musculoskeletal: Slightly limping gait, steady however. Extremities: No pitting edema, warm, well perfused. EKG: Encounter Date: 12/10/24 ECG 12 lead Result Value Ventricular Rate ECG 71 Atrial Rate 71 P-R Interval 132 QRS Duration 82 Q-T Interval 378 QTc 410 P Wave Yaphank 55 R Yaphank 16 T Yaphank -57 ECG Interpretation Normal sinus rhythm ST and T wave abnormality, consider anterior ischemia Abnormal ECG When compared with ECG of 15-AUG-2024 07:24, Nonspecific T wave abnormality now evident in Inferior leads Inverted T waves have replaced nonspecific T wave abnormality in Anterior leads *Note: Due to a large number of results and/or encounters for the requested time period, some results have not been displayed. A complete set of results can be found in Results Review. TESTING: Lab Results Component Value Date GLUCOSE 93 10/01/2024 CALCIUM 9.1 10/01/2024 NA 139 10/01/2024 K 3.9 10/01/2024 CO2 31 10/01/2024 CL 106 10/01/2024 BUN 12 10/01/2024 CREATININE 0.88 10/01/2024 Lab Results Component Value Date WBC 6.5 10/01/2024 HGB 11.3 (L) 10/01/2024 HCT 36.1 10/01/2024 MCV 87.2 10/01/2024 PLT 209 10/01/2024 No recent lipid panel for my review 69 y.o. female who presents for cardiac follow-up of the below mentioned issues. She has had progressive symptoms of dyspnea on exertion-which is likely multifactorial and also atypical chest pains. She has nonspecific ST-T wave changes on EKG. All of this makes me think that she may be struggling with coronary vasospasm versus microvascular disease in spite of not ever having evidence of obstructive coronary disease. Assessment & Plan 1. Atypical chest pain: - Trial of nitroglycerin as needed. Instructed on use: one tablet under tongue, wait 5 minutes, repeat up to three doses if pain persists, call 911 if no relief. - Start amlodipine 2.5 mg daily for potential spasms. Take in the morning with food. - PET stress test at [facility] to investigate microvascular disease and reduced coronary bloodflow. 2. Dyspnea on exertion: - PET stress test to evaluate. Suspected related to morbid obesity and deconditioning. - Recommend GLP-1 agonist for weight loss, pending primary care approval. 3. Hypertension - Elevated during visit, occasional low readings reported. - Instructed to monitor blood pressure at home, record readings in a diary, bring to next visit in 3 months. - Monitor response to low dose amlodipine. 4. Weight management: - Interested in weight loss medication. Recommend GLP-1 agonist, pending primary care approval. 5. Cholesterol management: - On low dose atorvastatin, checked every 3 months by her PCP. I would like to try to get her most recent lipid panel from her PCP's office. - Experienced muscle aches with increased atorvastatin dose. Follow-up: In 3 months. Follow up in about 3 months (around 03/12/2025). Thank you for allowing us to participate in the care of this patient. CC: Curt Falk MD The [facility] team will continue to co-manage this patient following the plan of care as established by my initial visit and as per AHA guidelines for ongoing management and surveillance of the above mentioned issues. This will include medication titration, initiation of appropriate medications and further titration, and diagnostic studies to manage this disease process. This note was dictated using voice recognition software. Please pardon any grammatical or syntax errors. documented in this encounter Plan of Treatment Scheduled Orders Name Type Priority Associated Diagnoses Order Schedule PET myocardial perfusion imaging Cardiac Nuclear Medicine Routine Chest pain at rest Dyspnea on exertion 1 Occurrences starting 12/10/2024 until 12/10/2025 documented as of this encounter Procedures Procedure Name Priority Date/Time Associated Diagnosis Comments ECG 12-LEAD Routine 12/10/2024 10:39 AM EDT Chest pain at rest documented in this encounter Results * ECG 12 lead (12/10/2024 10:39 AM EDT) Ventricular Rate ECG 71 BPM GEMUSE Atrial Rate 71 BPM GEMUSE P-R Interval 132 ms GEMUSE QRS Duration 82 ms GEMUSE Q-T Interval 378 ms GEMUSE QTc 410 ms GEMUSE P Wave Yaphank 55 degrees GEMUSE R Yaphank 16 degrees GEMUSE T Yaphank -57 degrees GEMUSE ECG Interpretation Normal sinus rhythm ST and T wave abnormality, consider anterior ischemia Abnormal ECG When compared with ECG of 15-AUG-2024 07:24, Nonspecific T wave abnormality now evident in Inferior leads Inverted T waves have replaced nonspecific T wave abnormality in Anterior leads Confirmed by YOHANA WALLACE ([id number]) on 12/10/2024 12:59:16 PM GEMUSE 12/10/2024 10:3 9 AM EDT 12/10/2024 12:59 PM EDT us Yohana Wallace MD ECG ORDERABLES Final Result GEMUSE documented in this encounter Visit Diagnoses Diagnosis Dyspnea on exertion- Primary Other dyspnea and respiratory abnormality Chest pain at rest Unspecified chest pain Primary hypertension Unspecified essential hypertension Mixed hyperlipidemia documented in this encounter Care Teams Housekeeping And Laundry Team Leader Relationship Specialty Start Date End Date Curt Falk MD [address] [place] [address] Dr [address] [place], [place] PCP - General 07/16/21 documented as of this encounter
[2024-12-19 15:17] VITALS: BP 160/88; PULSE 84; O2SAT 94; BMI 43.2
--- NOTE | 2024-12-19 15:17 | A.OFFVIS_ITS ---
Vital Signs 12/19/24 15:17 Height 4 ft 11 in Weight 214 lb BMI 43.2 BP 160/88 H Pulse 84 Pulse Oximetry (%) 94 Intake Visit Reasons: Mat Allergies Penicillins (PENICILLINS) Allergy (Intermediate, Verified 12/19/24 15:17) RASH HPI HPI Mat: Details: She reports stopping Belbuca and not having any side effects so not using Suboxone film or tablets unless she has restless legs at night and then takes 1/8 strip. This happens once every week or two only.She wants alternate treatment. [facility] Medical History Opioid use disorder Abdominal pain Depression Anxiety Insomnia Myalgia, upper arm Osteoarthritis of right knee Lumbar spondylosis Foot pain, bilateral BRIDGETTE (obstructive sleep apnea) Asthma KAMILA positive Urticaria Obesity (BMI 30-39.9) Vitamin D deficiency Chronic interstitial cystitis Irritable bowel syndrome (IBS) Arthralgia Osteoarthritis Esophageal stricture GERD (gastroesophageal reflux disease) Left lumbar radiculopathy CAD (coronary artery disease) Pure hypercholesterolemia Benign essential hypertension Surgical History History of surgery History of total right knee replacement (09/22/21) Hx of cystoscopy Status post balloon dilatation of esophageal stricture (~2005) History of cardiac catheterization History of colonoscopy History of nephrolithotomy with removal of calculi History of tooth extraction Family History Father Hypertension Mother Hypertension Diabetes CVD (cardiovascular disease) Daughter No problems noted. Family/Other FH: mental illness Other Mental health problem Substance abuse Social History Housing: Apartment Are you a primary care transitions nurse to a significant other at home: No Do you presently have visiting nurse or other home services: No Alcohol intake: never Comment: medicated, see MAR Patient Tobacco Use Status: Never used Tobacco e-Cigarette/Vaping Use: Never Used Second Hand Smoke Exposure: No service: No Current occupational status: disabled Cognitive needs: No Hearing needs: No Vision needs: Yes (Glasses) Review of Systems Const All systems reviewed & are unremarkable except as noted in HPI and below Physical Exam Vital Signs: Last Vital Signs Pulse 84 12/19/24 15:17 BP 160/88 H 12/19/24 15:17 Pulse Ox 94 12/19/24 15:17 BMI result Body Mass Index 43.2 Const General: cooperative Orientation/consciousness: patient oriented x3 HEENT Head: Yes normal to inspection Mouth: Normal oral and palatal mucosa present Eyes General: appearance normal, both eyes and all related structures Pupils: Equal, round and reactive pupils present Resp Effort & Inspection: normal respiratory effort Cardio Rate: regular rate Rhythm: regular rhythm GI Palpation (GI): Soft to palpation and nontender General: Yes no CVA tenderness Back/Spine/Pelvis Back: no CVA tenderness Skin General skin exam: no rashes or lesions noted Neuro General: patient oriented x3 Cranial nerves: Yes CN's II-XII intact bilaterally and Yes Equal, round and reactive pupils present Extrem General: Yes normal to inspection Psych Appearance: grossly normal Assessment & Plan Assessment & Plan (1) Opioid use disorder: Comment: She is off for the most part all opioids Code(s): F11.90 - Opioid use, unspecified, uncomplicated Category: Medical Plan: Would advise PCP to prescribe gabapentin 100 to 300 mg prn pain at night or pregabalin or vitamin B1 or magnesium prn restless legs. No further visit unless needed. Coding Level of Care Code Est Pt Level 3 (21103) Diagnoses Opioid use disorder F11.90
--- OUTSIDE RECORDS SUMMARY | 2024-12-19 16:35 | XMS_ITS | Encounter Summary ---
Author Organization [facility] Address [address] [place] [address] Care Team Providers Care Garbage Pick Up Worker Name Role Phone Curt Falk MD Primary Care Provider [phone] Encounter Details Date Type Department Care Team (Late st Contact Info) Description 09/14/2024 Lab Requisition [facility] [address] [facility] [place] [id number] Quang Hurd MD [address] [facility] [address] [place] [address] Frequency of micturition Social History Tobacco Use [...] of Assessment Author No 09/05/2024 7:45 AM IVONT Epifanio Black RN documented as of this [...] Escherichia coli(A) KRISTIN 09/15/2024 10:55 AM EDT [facility] Other Urine specimen from urethra / Unknown 09/13/2024 09/14/2024 10:29 AM EDT Narrative [facility] - 09/15/2024 10:55 AM EDT Additional colony types present in insignificant amounts. Organism Antibiotic Method Susceptibility Escherichia coli Amoxicillin/Clavulanate KRISTIN 16 ug/ml: Intermediate Escherichia coli Ampicillin/Sulbactam KRISTIN >=32 ug/ml: Resistant Escherichia coli Piperacillin/Tazobactam KRISTIN <=4 ug/ml: Susceptible Escherichia coli Cefazolin (Urine) KIRSTIN 16 ug/ml: Susceptible Escherichia coli Cefoxitin KRISTIN [...] MICROBIOLOGY - G ENERAL ORDERABLES Final Result [facility] [address] [place] [address], documented in this encounter Visit Diagnoses Diagnosis Frequency of micturition Urinary frequency documented in this encounter Care Teams Garbage Pick Up Worker Relationship Specialty Start Date End Date Curt Falk MD [address] [place] [address] [place] [place] [address] PCP - General 07/16/21 documented as of this encounter
--- OUTSIDE RECORDS SUMMARY | 2024-12-19 16:36 | XMS_ITS | Clinical Summary ---
Author Organization [facility] Location Address [address] [place] [address] Phone Care Team Providers Care Line Installer Repairer Name Role Phone Curt Falk MD Primary Care Provider + [phone] Allergies Active Allergy Reactions Criticality Noted Date [...] mg total) by mouth at bedtime. Active buprenorphine HCL [address] 150 mcg into mouth between cheek and gum 2 (two) times a day. Max Daily Amount: 300 mcg Active LORazepam (ATIVAN) 0.5 mg tablet Take 1 tablet (0.5 mg total) by mouth every 8 (eight) hours if needed. Active omeprazole (PriLOSEC) [address] capsule Take 1 capsule (40 mg total) by mouth 1 (one) time each day. Active traZODone (DESYREL) 100 mg tablet Take 1 tablet (100 mg total) by mouth at bedtime. Active ezetimibe (ZETIA) 10 mg tablet Take [...] mouth 1 (one) time each day. Active montelukast (SINGULAIR) 10 mg tablet Take 1 tablet (10 mg total) by mouth 1 (one) time each day if needed. Active hydrOXYzine HCL (ATARAX) 25 mg tabletIndicati ons:Rash,Urtic aria Take 1 tablet (25 mg total) by mouth 3 (three) times a day for 10 days. 30 each Active Additional Information Patient taking differently:25 mg,(No route reported), 3 times daily PRN, Reported on 10/12/2024 nitroglycerin (NITROSTAT) 0.[address] 1 tablet (0.4 mg total) under the tongue every 5 (five) minutes if needed for chest pain. May repeat dose every 5 minutes for up to 3 doses total. 20 tablet 11 5 Active amLODIPine (NORVASC) 5 mg tablet Take 0.5 tablets (2.5 mg total) by mouth 1 (one) time each day. 15 each 5 026 Active Active Problems Problem Noted Date Diagnosed Date Chest pain at rest 12/10/2024 Dyspnea on exertion 12/10/2024 Primary hypertension 12/10/2024 Mixed hyperlipidemia 12/10/2024 Gastroesophageal reflux disease without esophagi tis 08/27/2024 Chronic renal impairment, st age 2 (moderate) (CMS/[facility] V24, [facility] V28) 08/27/2024 Asthma 08/27/2024 Encounters Date Type Department Care Team Description 12/10/2024 10:50 AM EDT Office Visit [facility] [address] [facility] [address] [place] [id number] Yohana Wallace MD Dyspnea on exertion (Primary Dx); Chest pain at rest; Primary hypertension; Mixed hyperlipidemia 10/01/2024 11:34 AM EDT - 10/01/2024 5:17 PM EDT Emergency [facility] [address] [place] [id number] Skip Aquino, Dysuria (Primary Dx); Acute cystitis with hematuria Discharge Disposition: Home or Self Care from [...] APPENDECTOMY CYSTOSCOPY 01/17/2024 - 02/16/2024 WITH BOTOX KIDNEY STONE SURGERY Medical History Medical History Date Comments Depression DX:Depression Asthma DX:Asthma Foot pain, bilateral DX:Foot heidy n, bilateral GERD (gastroesophageal reflux disease) DX:GERD (gastroesophageal reflux disease) Insomnia DX:Insomnia Arthralgia DX:Arthralgia KAMILA positive DX:KAMILA positive Osteoarthritis DX:Osteoarthriti s; COMMENT: OF RIGHT KNEE Vitamin D deficiency DX:Vitamin D deficiency Urticaria DX:Urticaria Chronic interstitial cystitis DX :Chronic interstitial cystitis Anxiety Hyperlipidemia Hypertension CHF (congestive heart failur e) ([facility] V24, [facility] V28) Shortness of breath Chronic [...] Pulse 71 12/10/2024 10:34 AM EDT Temperature 36.4 C (97.5 F) 10/01/2024 1:54 PM EDT Respiratory Rate 16 10/01/2024 1:54 PM EDT Oxygen Saturation 96% 10/01/2024 1:54 PM EDT Inhaled Oxygen Concentration - - Weight 97.5 kg (215 lb) 12/10/2024 10:34 AM EDT Height 149.9 cm (4' 11 ) 12/10/2024 10:34 AM EDT Body Mass Index 43.42 12/10/2024 10:34 AM EDT Plan of Treatment Health Maintenance Due Date Last Done Comments Breast Cancer Screening 1955 Pneumococcal Vaccine: 50+ Ye ars (1 of 2 - PCV) 1973 Zoster Vaccines (1 of 2) 2004 RSV Immunization Adult Patie nts (1 - Risk 60-74 years 1-dose series) 2014 Cholesterol Screening (Lipid Panel) 03/21/2022 Colorectal Cancer Screening: Colonoscopy 03/21/2022 Hepatitis C Screening 03/21/2022 Medicare Annual Wellness Visit 03/21/2022 Osteoporosis Screening (Bone Density Screening) 03/21/2022 Social Influencers of Health Screening 03/21/2022 Depression Screening 04/18/2024 COVID-19 Vaccine (1 - 2023-2 5 season) 2024 Influenza Vaccine (#1) 2024 Falls Risk Assessment 08/27/2025 08/27/2024 Hypertension/CHF/CAD Annual BMP Blood Test 10/01/2025 10/01/2024 DTaP,Tdap,and Td Vaccines (2 - Td or [...] this topic Medical Devices Implanted Type Area Salesperson Men'S Hats Device Identifier Shelf Expiration Date Model / Serial / Lot Joints Knee Joints Knee Right: Knee Cable Ext Interstim 4.32mm - Sn/A - [id number] Implanted:Qty: 1 on 08/15/2024 by Quang Hurd MD at [facility] Neurostim N/A: Sacrum [employer] 09/12/2025 [id number] / N/A / [id number] Kit Mri Lead Interstim 4.32-28cm - Sn/A - [id number] Implanted:Qty: 1 on 08/15/2024 by Quang Hurd MD at [facility] Neurostim N/A: Sacrum [employer] 10/09/2025 [id number] / N/A / [id number] System Interstim X Recharge-Free F/Bladder/Valentina l Cntrl - [id number] - [id number] Implanted:Qty: 1 on 08/27/2024 by Quang Hurd MD at [facility] Neurostim N/A: Back [employer] 06/15/2025 [id number] / [id number] / N/A Procedures Procedure Name Priority Date/Time Associated Diagnosis Comments ECG 12-LEAD Routine 12/10/2024 10:39 AM EDT Chest pain at rest CT ABDOMEN PELVIS WO CONTRAST STAT 10/01/2024 2:23 PM EDT PRECIADO URINE CULTURE TUBE STAT 10/01/2024 11:09 AM EDT URINALYSIS WITH REFLEX MICROSCOPIC AND CULTURE STAT 10/01/2024 11:09 AM EDT URINALYSIS WITH REFLEX MICROSCOPIC AND CULTURE STAT 10/01/2024 11:09 AM EDT CULTURE URINE STAT 10/01/2024 11:09 AM EDT CBC WITH AUTO DIFFERENTIAL STAT 10/01/2024 10:58 AM EDT LIPASE STAT 10/01/2024 10:58 AM EDT COMPREHENSIVE METABOLIC PANEL STAT 10/01/2024 10:58 AM EDT CBC AND DIFFERENTIAL STAT 10/01/2024 10:58 AM EDT from Last 3 Months Results * ECG 12 lead (12/10/2024 10:39 AM EDT) Ventricular Rate ECG 71 BPM GEMUSE Atrial Rate 71 BPM GEMUSE P-R Interval 132 ms GEMUSE QRS Duration 82 ms GEMUSE Q-T Interval 378 ms GEMUSE QTc 410 ms GEMUSE P Wave [place] 55 degrees GEMUSE R [place] 16 degrees GEMUSE T [place] -57 degrees GEMUSE ECG Interpretation Normal sinus [...] Wallace MD ECG ORDERABLES Final Result GEMUSE * CT Abdomen Pelvis wo Contrast (10/01/2024 2:23 PM EDT) Anatomical Region Laterality Modality Body Computed Tomogra phy 10/01/2024 2:55 PM EDT Impressions 10/01/2024 2:57 PM EDT NO ACUTE ABNORMALITY. -------- FINAL REPORT -------- Dictated By: Flo Christian Dictated Date: 10/01/2024 14:55 ET Assigned Physician: Flo Christian Reviewed and Electronically Signed By: Flo Christian Signed Date: 10/01/2024 14:57 ET Workstation ID: [id number] Transcribed By: Self Edit Transcribed Date: 10/01/2024 14:55 ET Narrative 10/01/2024 2:57 PM EDT PROCEDURE: CT Abdomen and Pelvis without contrast INDICATION: Flank pain, kidney stone suspected TECHNIQUE: CT of the abdomen and pelvis without contrast. Multiplanar reformats. The examination was performed utilizing dose reduction techniques. DLP: 1214 mGy/cm COMPARISON: 06/30/2023 FINDINGS: LOWER THORAX: Lung bases are clear. HEPATOBILIARY: No focal liver lesions. No cholelithiasis or biliary duct dilatation. SPLEEN: No splenomegaly. PANCREAS: No focal mass or ductal dilatation. ADRENALS: No nodules. KIDNEYS/URETERS: No hydronephrosis, stones, or solid mass. PELVIC ORGANS/BLADDER: Bladder is underdistended. Status post hysterectomy. PERITONEUM / RETROPERITONEUM: No ascites or free air. No retroperitoneal lymphadenopathy. VESSELS: Scattered atherosclerotic calcifications throughout the aorta and its major branches. No aneurysm. GI TRACT: No bowel distention or wall thickening. Normal appendix. Diverticulosis without evidence for acute diverticulitis. BONES AND SOFT TISSUES: Scattered degenerative changes seen throughout the bones. Generator pack in the right dorsal soft tissues with stimulator leads in the sacrum. Procedure Note Flo Christian MD - 10/01/2024 PROCEDURE: CT Abdomen and Pelvis without contrast INDICATION: Flank pain, kidney stone suspected TECHNIQUE: CT of the abdomen and pelvis without contrast. Multiplanarreformats. The examination was performed utilizing dose reductiontechniques. DLP: 1214 mGy/cm COMPARISON: 06/30/2023 FINDINGS: LOWER THORAX: Lung bases are clear. HEPATOBILIARY: No focal liver lesions. No cholelithiasis or biliary ductdilatation. SPLEEN: No splenomegaly. PANCREAS: No focal mass or ductal dilatation. ADRENALS: No nodules. KIDNEYS/URETERS: No hydronephrosis, stones, or solid mass. PELVIC ORGANS/BLADDER: Bladder is underdistended. Status posthysterectomy. PERITONEUM / RETROPERITONEUM: No ascites or free air. No retroperitoneallymphadenopathy. VESSELS: Scattered atherosclerotic calcifications throughout the aorta andits major branches. No aneurysm. GI TRACT: No bowel distention or wall thickening. Normal appendix.Diverticulosis without evidence for acute diverticulitis. BONES AND SOFT TISSUES: Scattered degenerative changes seen throughout thebones. Generator pack in the right dorsal soft tissues with stimulatorleads in the sacrum. IMPRESSION: NO ACUTE ABNORMALITY. -------- FINAL REPORT -------- Dictated By: Flo Christian Dictated Date: 10/01/2024 14:55 ET Assigned Physician: Flo Christian Reviewed and Electronically Signed By: Flo Christian Signed Date: 10/01/2024 14:57 ET Workstation ID: [id number] Transcribed By: Self Edit Transcribed Date: 10/01/2024 14:55 ET Skip Aquino DO IMG CT PROCEDURES Final Result * (ABNORMAL) Urinalysis with reflex microscopic and culture (10/01/2024 11:09 AM EDT) Specific [place] Urine 1.025 1.003 - 1.030 LAB URINALYSIS - AUTOMATED METHOD 10/01/2024 12:53 PM [facility] pH, Urine 7.0 5.0 - 8.0 pH LAB URINALYSIS - AUTOMATED METHOD 10/01/2024 12:53 PM [facility] Leukocytes, Urine Small(A) Negative LAB URINALYSIS - AUTOMATED METHOD 10/01/2024 12:53 PM [facility] Nitrite, Urine Negative Negative LAB URINALYSIS - AUTOMATED METHOD 10/01/2024 12:53 PM [facility] Protein, Urine 30(A) <=Trace mg/dL LAB URINALYSIS - AUTOMATED METHOD 10/01/2024 12:53 PM [facility] Glucose, Urine Negative Negative mg/dL LAB URINALYSIS - AUTOMATED METHOD 10/01/2024 12:53 PM [facility] Ketones, Urine Trace(A) Negative mg/dL LAB URINALYSIS - AUTOMATED METHOD 10/01/2024 12:53 PM [facility] Urobilinogen, Urine 1.0 0.2 - 1.0 mg/dL LAB URINALYSIS - AUTOMATED METHOD 10/01/2024 12:53 PM [facility] Bilirubin, Urine Small(A) Negative LAB URINALYSIS - AUTOMATED METHOD 10/01/2024 12:53 PM [facility] Blood, Urine Negative Negative LAB URINALYSIS - AUTOMATED METHOD 10/01/2024 12:53 PM [facility] RBC, Urine 8.2(H) 0 - 4 /HPF LAB URINALYSIS - AUTOMATED METHOD 10/01/2024 12:53 PM [facility] WBC, Urine 2.4 0 - 4 /HPF LAB URINALYSIS - AUTOMATED METHOD 10/01/2024 12:53 PM [facility] Squamous Epithelial, Urine 93(H) 0 - 60 /LPF LAB URINALYSIS - AUTOMATED METHOD 10/01/2024 12:53 PM [facility] Bacteria, Urine Negative Negative /HPF LAB URINALYSIS - AUTOMATED METHOD 10/01/2024 12:53 PM [facility] Hyaline Casts, Urine 2.8 0 - 3 /LPF LAB URINALYSIS - AUTOMATED METHOD 10/01/2024 12:53 PM [facility] Urine Urine specimen obtained by clean catch procedure / Unknown Non-blood Collection / Unknown 10/01/2024 11:09 AM EDT 10/01/2024 12:38 PM EDT us Skip Aquino DO LAB URINE ORDERABLES Final Res ult Performing Organization Address [facility]/ZIP Co de Phone Number [facility] [address] [place] [address], * Preciado urine culture tube (10/01/2024 11:09 AM EDT) Extra Tube Hold for add-ons. 10/01/2024 2:01 PM EDT [facility] Comment:Auto resulted. Urine Urine specimen obtained by clean catch procedure / Unknown Non-blood Collection / Unknown 10/01/2024 11:09 AM EDT 10/01/2024 12:38 PM EDT Skip Aquino DO LAB URINE ORDERABLES Final Res ult Performing Organization Address [facility] Co de Phone Number [facility] [address] [place] [address], * (ABNORMAL) Culture urine (10/01/2024 11:09 AM EDT) Culture, Urine 10,000-49,000 CFU/mL Escherichia coli(A) KRISTIN 10/03/2024 10:35 AM EDT [facility] Comment: This is an edited result. Previous organism was Gram negative bacilli on 10/02/2024 at 0829 EDT. Urine Urine specimen obtained by clean catch procedure / Unknown Non-blood Collection / Unknown 10/01/2024 11:09 AM EDT 10/01/2024 12:53 PM EDT Narrative Organism Antibiotic Method Susceptibility Escherichia coli Amoxicillin/Clavulanate KRISTIN <=2 ug/ml: Susceptible Escherichia coli Ampicillin/Sulbactam KRISTIN <=2 ug/ml: Susceptible Escherichia coli Piperacillin/Tazobactam KRISTIN <=4 ug/ml: Susceptible Escherichia coli Cefazolin (Urine) KRISTIN <=1 ug/ml: Susceptible Escherichia coli Cefoxitin KRISTIN <=4 ug/ml: Susceptible Escherichia coli Ceftazidime KRISTIN <=0.5 ug/ml: Susceptible Escherichia coli Ceftriaxone KRISTIN <=0.25 ug/ml: Susceptible Escherichia coli Cefepime KRISTIN <=0.12 ug/ml: Susceptible Escherichia coli Meropenem KRISTIN <=0.25 ug/ml: Susceptible Escherichia coli Amikacin KRISTIN 2 ug/ml: Susceptible Escherichia coli Gentamicin KRISTIN <=1 ug/ml: Susceptible Escherichia coli Ciprofloxacin KRISTIN <=0.06 ug/ml: Susceptible Escherichia coli Levofloxacin KRISTIN <=0.12 ug/ml: Susceptible Escherichia coli Nitrofurantoin KRISTIN <=16 ug/ml: Susceptible Escherichia coli Trimethoprim/Sulfamethoxazole KRISTIN <=20 ug/ml: Susceptible us Skip Aquino DO LAB MICROBIOLOGY - GENERAL ORD ERABLES Final Result [facility] [address] [place] [address], * (ABNORMAL) CBC auto differential (10/01/2024 10:58 AM EDT) WBC 6.5 4.8 - 10.8 K/mcL LAB HEMETOLOGY METHOD 10/01/2024 11:28 AM EDT [facility] RBC 4.10 3.80 - 4.80 M/mcL LAB HEMETOLOGY METHOD 10/01/2024 11:28 AM EDT [facility] Hemoglobin 11.3(L) 11.5 - 16.0 g/dL LAB HEMETOLOGY METHOD 10/01/2024 11:28 AM EDT [facility] Hematocrit 36.1 35.0 - 47.0 % LAB HEMETOLOGY METHOD 10/01/2024 11:28 AM EDT [facility] MCV 87.2 79.0 - 98.0 FL LAB HEMETOLOGY METHOD [facility] MCH 27.3 27.0 - 32.0 pcg LAB HEMETOLOGY METHOD 10/01/2024 11:28 AM [facility] MCHC 31.3(L) 32.0 - 37.0 g/dL LAB HEMETOLOGY METHOD 10/01/2024 11:28 AM [facility] RDW 14.6 11.0 - 15.0 % LAB HEMETOLOGY METHOD 10/01/2024 11:28 AM [facility] Platelets 209 130 - 400 K/mcL LAB HEMETOLOGY METHOD 10/01/2024 11:28 AM [facility] MPV 10.8 7.0 - 11.0 FL LAB HEMETOLOGY METHOD 10/01/2024 11:28 AM [facility] NRBC 0.0 <1.0 % LAB HEMETOLOGY METHOD 10/01/2024 11:28 AM [facility] NRBC Absolute 0.00 <0.10 K/mcL LAB HEMETOLOGY METHOD 10/01/2024 11:28 AM [facility] Neutrophils Relative 51.7 % LAB HEMETOLOGY METHOD 10/01/2024 11:28 AM [facility] Lymphocytes Relative 34.6 % LAB HEMETOLOGY METHOD 10/01/2024 11:28 AM [facility] Monocytes Relative 6.8 % LAB HEMETOLOGY METHOD 10/01/2024 11:28 AM [facility] Eosinophils Relative 5.7 % LAB HEMETOLOGY METHOD 10/01/2024 11:28 AM [facility] Basophils Relative 0.6 % LAB HEMETOLOGY METHOD 10/01/2024 11:28 AM [facility] Immature Granulocytes Relative 0.6 % LAB HEMETOLOGY METHOD 10/01/2024 11:28 AM [facility] Neutrophils Absolute 3.33 1.50 - 7.00 K/mcL LAB HEMETOLOGY METHOD 10/01/2024 11:28 AM [facility] Lymphocytes Absolute 2.23 1.00 - 5.00 K/mcL LAB HEMETOLOGY METHOD 10/01/2024 11:28 AM EDT [facility] Monocytes Absolute 0.44 0.20 - 1.00 K/[facility] LAB HEMETOLOGY METHOD 10/01/2024 11:28 AM EDT [facility] Eosinophils Absolute 0.37 0.00 - 0.50 K/mcL LAB HEMETOLOGY METHOD 10/01/2024 11:28 AM EDT [facility] Basophils Absolute 0.04 0.00 - 0.20 K/[facility] LAB HEMETOLOGY METHOD 10/01/2024 11:28 AM EDT [facility] Immature Granulocytes Absolute 0.04(H) 0.00 - 0.03 K/[facility] LAB HEMETOLOGY METHOD 10/01/2024 11:28 AM EDT [facility] Blood Venous blood specimen / Unknown Venipuncture / Unknown 10/01/2024 10:58 AM EDT 10/01/2024 11:13 AM EDT Skip Aquino DO LAB BLOOD ORDERABLES Final Res ult [facility] [address] [place] [address], [place] [phone] * Lipase (10/01/2024 10:58 AM EDT) Lipase 23 13 - 75 unit/L LAB CHEMISTRY METHOD 10/01/2024 11:53 AM EDT [facility] Blood Venous blood specimen / Unknown Venipuncture / Unknown 10/01/2024 10:58 AM EDT 10/01/2024 11:13 AM EDT Skip Aquino DO LAB BLOOD ORDERABLES Final Res ult [facility] [address] [place] [address], [place] [phone] * (ABNORMAL) Comprehensive metabolic panel (10/01/2024 10:58 AM EDT) [facility] Signature Sodium 139 133 - 145 mmol/L LAB CHEMISTRY METHOD 10/01/2024 11:58 AM [facility] Potassium 3.9 3.5 - 5.5 mmol/L LAB CHEMISTRY METHOD 10/01/2024 11:58 AM [facility] Chloride 106 96 - 110 mmol/L LAB CHEMISTRY METHOD 10/01/2024 11:58 AM [facility] CO2 31 21 - 32 mmol/L LAB CHEMISTRY METHOD 10/01/2024 11:58 AM [facility] Anion Gap 2(L) 3 - 11 LAB CHEMISTRY METHOD 10/01/2024 11:58 AM [facility] Glucose 93 70 - 100 mg/dL LAB CHEMISTRY METHOD 10/01/2024 11:58 AM [facility] BUN 12 5 - 25 mg/dL LAB CHEMISTRY METHOD 10/01/2024 11:58 AM [facility] Creatinine 0.88 0.50 - 1.10 mg/dL LAB CHEMISTRY METHOD 10/01/2024 11:58 AM [facility] eGFR 71 >=60 mL/min/1. 73m2 LAB CHEMISTRY METHOD 10/01/2024 11:58 AM [facility] Comment:Calculation based on the Chronic Kidney Disease Epidemiology Collaboration (CKD-EPI) equation refit without adjustment for race. BUN/Creatinine Ratio 13.6 LAB CHEMISTRY METHOD 10/01/2024 11:58 AM [facility] Calcium 9.1 8.5 - 10.5 mg/dL LAB CHEMISTRY METHOD 10/01/2024 11:58 AM [facility] AST (SGOT) 22 10 - 42 unit/L LAB CHEMISTRY METHOD 10/01/2024 11:58 AM [facility] ALT (SGPT) 26 10 - 60 unit/L LAB CHEMISTRY METHOD 10/01/2024 11:58 AM EDT [facility] Alkaline Phosphatase 70 42 - 121 unit/L LAB CHEMISTRY METHOD 10/01/2024 11:58 AM EDT [facility] Total Protein 6.6 6.0 - 8.0 g/dL LAB CHEMISTRY METHOD 10/01/2024 11:58 AM EDT [facility] Albumin 3.9 3.2 - 5.0 g/dL LAB CHEMISTRY METHOD 10/01/2024 11:58 AM EDT [facility] Total Bilirubin 0.5 0.0 - 1.4 mg/dL LAB CHEMISTRY METHOD 10/01/2024 11:58 AM EDT [facility] Blood Venous blood specimen / Unknown Venipuncture / Unknown 10/01/2024 10:58 AM EDT 10/01/2024 11:13 AM EDT us Skip Aquino DO LAB BLOOD ORDERABLES Final Res ult [facility] [address] [place] [address], from Last 3 Months Insurance [facility] [employer] [employer]IC[employer] Member Subscriber Plan / Payer (Ef fective 2019-Present) Name:Celia Madrigal Relation to Subscriber:Self Name:Celia Marquez Payer ID:[id number] Group ID:[id number] Type:Not on file Address: [place] [address] [address] [id number] Care Teams Line Installer Repairer Relationship Specialty Start Date End Date Curt Falk MD [address] [place] [address] [address] WILLIAM Barrera PCP - General 07/16/21
--- OUTSIDE RECORDS SUMMARY | 2024-12-19 16:36 | XMS_ITS | Patient Health Record ---
Author Organization [facility] Address [address] [place] [address] Care Team Providers Care Seasonal Clerk Name Role Phone Dileep HIGGINS, Curt Primary Care Provider Perez Lee Jr Unavailable [phone] Allergies Allergen (clinical drug ingredient) Drug/Non Drug Allergy documented on EMR Reaction Allergy Type Onset Date Status Penicillin Unknown Drug Allergy Active Reason For Referral No Information Plan Of Treatment No Information Insurance Providers Payer Name Payer Address Payer Phone Subscriber Number Group Number Insured Name Patient Relationship to Insured Coverage Start Date Coverage End Date [facility] [address] [address] [place], [place] [id number] MARCI CHATMAN Self - patient is the insured Medical (General) History Medical History History ICD Code 09-29-2005 egd with balloon dilation 07-17-2004 colon and egd gerd irritable bowel syndrome panic attacks depression anxiety elevated cholesterol chronic pain syndrome nephrolithiasis status post lithotripsy cystitis Surgical History Surgery Date(Month/Year) oophorectomy hysterectomy
== END 2024-12-19 15:34 | disposition home or self-care (01) ==
LOC: HO.HCC 14:15
PROVIDERS: PCP Internal Medicine; Visit Provider Internal Medicine
DX: F11.90 Opioid use, unspecified, uncomplicated (principal)
CPT/HCPCS: 99213

== ENCOUNTER → 2024-12-19 14:15 | Outpatient (BNVA) | payer OTHER, SELFPAY | PROVIDERS: PCP Internal Medicine; Visit Provider Internal Medicine | DX: F11.90 Opioid use, unspecified, uncomplicated (principal) | CPT/HCPCS: 99212 ==

== ENCOUNTER → 2025-01-18 11:00 | Outpatient (REF) | payer OTHER, SELFPAY ==
--- OUTSIDE RECORDS SUMMARY | 2025-01-17 09:35 | XMS_ITS | Encounter Summary ---
Author Organization [facility] [address] Address [address] [place] [address] Care Team Providers Care Surface Plate Inspector Name Role Phone Curt Falk MD Primary Care Provider + [phone] Reason for Referral * Cardiac Stress Testing (Routine) - Pending Review Specialty Diagnoses / Procedures Referred By Sal davison Referred To Contact Diagnoses Chest pain at rest Dyspnea on exertion Procedures PET myocardial perfusion imaging ND MYOCARDIAL IMAGING PET PERFUSION STUDY SINGLE STUDY AT REST OR STRESS ND MYOCARDIAL IMAGING PET PERFUSION STUDY MULTI STUDIES AT REST AND STRESS Yohana Loza MD [address] [place] [address] Phone: tel: fax: [facility] Referral ID Status Reason Start Date Expiration Date V isits Requested Visits Authorized [id number] Pending Review 12/10/2024 12/10/2025 3 3 Reason for Visit * Cardiac Stress Testing (Routine) - Pending Review Specialty Diagnoses / Procedures Referred By Sal davison Referred To Contact Diagnoses Chest pain at rest Dyspnea on exertion Procedures PET myocardial perfusion imaging ND MYOCARDIAL IMAGING PET PERFUSION STUDY SINGLE STUDY AT REST OR STRESS ND MYOCARDIAL IMAGING PET PERFUSION STUDY MULTI STUDIES AT REST AND STRESS Yohana Loza MD [address] [place] [address] Phone: tel: fax: [facility] Referral ID Status Reason Start Date Expiration Date V isits Requested Visits Authorized [id number] Pending Review 12/10/2024 12/10/2025 3 3 Encounter Details Date Type Department Care Team (Latest Contact Info) Description 01/17/2025 9:35 AM EDT Hospital Encounter [facility] PET Scan [address] [place] [address] Chest pain at rest; Dyspnea on exertion Social History Tobacco Use Types Packs/Day Years Used Date Smoking Tobacco: Never Smokeless Tobacco: Former Alcohol Use Standard Drinks/Week Comments Never 0 (1 standard drink = 0.6 oz pur e alcohol) Interpersonal Safety Answer Date Record ed Physical Abuse Unrecognized value 08/27/2024 Verbal Abuse Unrecognized value 08/27/2024 Comments No Sex and Gender Information Value Date Recorded Sex Assigned at Female 07/30/2024 2:35 PM EDT Legal Sex Female 2:18 AM EST Gender Identity Female 07/30/2024 2:35 PM EDT Sexual Orientation Straight 07/30/2024 2: 35 PM EDT documented as of this encounter Last Filed Vital Signs Vital Sign Reading Time Taken Comments Blood Pressure - - Pulse - - Temperature - - Respiratory Rate - - Oxygen Saturation - - Inhaled Oxygen Concentration - - Weight 93.9 kg (207 lb) 01/17/2025 11:45 AM EDT Height 149.9 cm (4' 11 ) 01/17/2025 11:45 AM EDT Body Mass Index 41.81 01/17/2025 11:45 AM EDT documented in this encounter Functional [...] Assessment Author No 10/01/2024 3:24 PM EDT Alley, Heather, RN * Because of a physical, mental, [...] Heather Hager RN documented in this encounter Plan of Treatment Pending Results Name Type Priority Associated Diagnoses Date /Time PET myocardial perfusion imaging Cardiac Nuclear Medicine Routine Chest pain at rest Dyspnea on exertion 01/18/2025 8:02 AM EDT documented as of this encounter Procedures Procedure Name Priority Date/Time Associated Diagnosis Comments PET MYOCARDIAL PERFUSION MULTIPLE W/ CONCURRENT CT SCAN Routine 01/18/2025 8:02 AM EDT Chest pain at rest Dyspnea on exertion Procedure Note - Darleen Rea PA / Yohana Loza MD - 01/18/2025 8:02 AM EDTThis note is in progress. Stress: A pharmacological stress test was performed using regadenoson,0.4 mg IV over 10-15 seconds, followed by radiopharmacological gelawetnv09 seconds post infusion. The patient reported no symptoms during thestress test. ECG: ECGs remained unchanged with regadenoson and through recovery. Noarrhythmias. Findings Stress Findings A pharmacological stress test was performed using regadenoson, 0.4 mg IV over 10-15 seconds, followed by radiopharmacological injection 55 seconds post infusion. The patient reached the end of the protocol. Blood pressure demonstrated a normal response. Heart rate demonstrated a normal response. The patient reported no symptoms during the stress test. ECG 69 yo female with atypical chest pain, YANEZ, HTN, HPL, morbid obesity and increased YANEZ. PET stress test to evaluate for microvascular disease. The ECG shows normal sinus rhythm with diffuse mild ST flattening. ECGs remained unchanged with regadenoson and through recovery. No arrhythmias. documented in this encounter Visit Diagnoses Diagnosis Chest pain at rest Unspecified chest pain Dyspnea on exertion Other dyspnea and respiratory abnormality documented in this encounter Administered Medications Inactive Administered Medications - up to 3 most recent administrations Medication Order MAR Action Action Date Dose Rate Site regadenoson (LEXISCAN) injection 0.4 mg 0.4 mg, intravenous, Once in imaging, Starting on Mali[place] 01/17/25 at 1030, For 1 dose Given 01/17/2025 10:30 AM EDT 0.4 mg rubidium Rb-82 radio-isotope injection 34.95 millicurie 34.95 millicurie, intravenous, Once in imaging, Starting on Maliha 01/17/25 at 1030, For 1 dose Given 01/17/2025 10:21 AM EDT 34.95 millicuries Right Antecubital rubidium Rb-82 radio-isotope injection 34.96 millicurie 34.96 millicurie, intravenous, Once in imaging, Starting on Maliha 01/17/25 at 1045, For 1 dose Given 01/17/2025 10:34 AM EDT 34.96 millicuries Right Antecubital documented in this encounter Care Teams Surface Plate Inspector Relationship Specialty Start Date End Date Curt Falk MD [address] [place] [address] Dr [address] [place] PCP - General 07/16/21 documented as of this encounter
--- OUTSIDE RECORDS SUMMARY | 2025-01-17 09:38 | XMS_ITS | Encounter Summary ---
Author Organization [facility] Address [address] [place] [address] Care Team Providers Care Sustainment Logistics Analyst Name Role Phone Curt Falk MD Primary Care Provider + [phone] Reason for Visit * Cardiac Stress Testing (Routine) - Pending Review Specialty Diagnoses / Procedures Referred By Sal davison Referred To Contact Diagnoses Chest pain at rest Dyspnea on exertion Procedures PET myocardial perfusion imaging UT MYOCARDIAL IMAGING PET PERFUSION STUDY SINGLE STUDY AT REST OR STRESS UT MYOCARDIAL IMAGING PET PERFUSION STUDY MULTI STUDIES AT REST AND STRESS Yohana Loza MD [address] [place] [address] Phone: tel: fax: [facility] Referral ID Status Reason Start Date Expiration Date V isits Requested Visits Authorized [id number] Pending Review 12/10/2024 12/10/2025 3 3 Encounter Details Date Type Department Care Team (Late st Contact Info) Description 01/17/2025 9:38 AM EDT Hospital Encounter [facility] Non-Invasive Cardiology [address] [place] [phone] Arrived Social History Tobacco Use Types Packs/Day Years [...] Sign Reading Time Taken Comments Blood Pressure 135/68 01/17/2025 9:55 AM EDT Pulse - - Temperature - - Respiratory Rate - - Oxygen Saturation - - Inhaled Oxygen Concentration - - Weight 93.9 kg (207 lb) 01/17/2025 10:07 AM EDT Height 149.9 cm (4' 11 ) 01/17/2025 10:07 AM EDT Body Mass Index 41.81 01/17/2025 10:07 AM EDT documented in this encounter Functional [...] IV over 10-15 seconds, followed by radiopharmacological pecyiawrd04 seconds post infusion. The patient reported no [...] arrhythmias. documented in this encounter Visit Diagnoses Not on filedocumented in this encounter Care Teams Sustainment Logistics Analyst Relationship Specialty Start Date End Date Curt Falk MD [address] [place] [address] Dr [address] [place], [place] PCP - General 07/16/21 documented as of this encounter
--- NOTE | 2025-01-18 11:02 | CA_ITS ---
Transthoracic Echocardiogram Patient (Last, First, Middle): Celia Marquez M Gender: Female Date of : 1955 Age: 69 Procedure Date: 01/18/2025 Procedure Type: Transthoracic Echocardiogram Location: OP Height: 149. cm Weight: 93.9 kg BSA: 1.86 m2 Heart Rate: 64 bpm BP: 142 / 70 mmHg Management Aide: EMMA Referring MD: Curt Falk MD Symptoms: R06.09 - Other forms of dyspnea Study Quality: Fair ECG Rhythm: Sinus Conclusions: - The left ventricular systolic function is normal. The visually estimated ejection fraction is between 60-65%. - No obvious valvular pathology seen on this study. Findings Left Ventricle Normal left ventricular cavity size. There is normal left ventricular wall thickness. The left ventricular systolic function is normal. The visually estimated ejection fraction is between 60-65%. There is no evidence of regional wall motion abnormalities. Diastolic function is normal for age. Right Ventricle Normal right ventricular cavity size and systolic function. Atria Both atria are normal in size. Aortic Valve There is a normal trileaflet aortic valve. There is mild calcification of the aortic valve. There is no aortic valve stenosis. There is no aortic valve regurgitation. Mitral Valve There is mild anterior mitral leaflet thickening. There is no mitral valve regurgitation. There is no mitral valve stenosis. Pulmonic Valve The pulmonic valve is likely normal. Tricuspid Valve There is trace tricuspid valve regurgitation. There is no evidence of pulmonary hypertension. Great Vessels The asc aorta and aortic arch are normal in size. Venous The inferior vena cava is normal in size and collapses greater than 50% with inspiration. Pericardium/Pleural There is no evidence of pericardial effusion. Prior Study Comparison Changes noted compared to prior study dated: 02/27/2019. LVEF higher; no obvious wall motion abnormality. Recommendations, Care & Conclusions No obvious valvular pathology seen on this study. Measurements 2D Linear Measurements IVSd: 0.85 0.6-0.9/0.6-1.0 cm LVIDd: 5.24 3.9-5.3/4.2-5.9 cm LVIDd Index: 2.82 2.4-3.2/2.2-3.1 cm/m2 LVIDs: 2.75 2.0-3.6 cm LVPWd: 1.03 0.7-1.1 cm LA Diam: 3.50 2.7-3.8/3.0-4.0 cm LAIDs Index: 1.88 1.5-2.3 cm/m2 LV Mass: 225.12 67-162/88-224 g LV Mass Index: 121.03 43-95/49-115 g/m2 LVOT Diam: 2.00 3.0+(-)1.3 cm 2D Systolic Function EF 4C: 69.60 >55% EF 2C: 65.40 >55% EF BiP: 67.30 >55% Mitral Valve MV Pk E: 0.96 MV PK A: 0.83 MV Decel Time: 264.00 E/A: 1.20 E'Lateral: 9.14 E'Medial: 7.94 E/E' Med: 12.10 E/E' Lat: 10.50 PHT: 77.00 MVA PHT: 2.86 Decel Pettis: 3.64 Aortic Valve AoV Pk Jordon: 1.37 AoV Mn Jordon: 0.98 AoV VTI: 0.33 AoV Pk Grad: 8.00 Aov Mn Grad: 4.00 YVROSE Cont.VTI: 2.05 LVOT LVOT Pk Jordon: 1.00 LVOT Mn Jordon: 0.72 LVOT VTI: 0.22 LVOT Pk Grad: 4.00 LVOT Mn Grad: 2.00 LVOT Diam: 2.00 LVOT Area: 3.14 Diastolic Function MV Pk E: 0.96 MV Pk A: 0.83 E/A: 1.20 E'Medial: 7.94 E/E' Med: 12.10 E' Laterial: 9.14 E/E' Lat: 10.50 Right Ventricle TAPSE (mm): 26.10 TVS' Jordon: 13.20 Tricuspid Valve TR Pk Jordon: 1.99 TR Pk Grad: 16.00 RA Press: 3.00 RVSP: 19.00 Great Vessels Aorta Sinus of Valsalva: 3.30 2.0-3.5 cm Ao Asc: 3.10 2.1-3.4 cm Ao Arch: 2.60 Pulmonary Veins Pulm Vein S/D 1.30 Pulmonary Valve PV Pk Jordon: 0.95 Peak PV Grad: 4.00 Updated in Other Vendor System with Status of Final Nilesh Villarreal MD electronically signed on 01/19/2025 4:11:15 PM with status of Final
--- OUTSIDE RECORDS SUMMARY | 2025-01-18 12:17 | XMS_ITS | Encounter Summary ---
Author Organization [facility] Address [address] [place] [address] Care Team Providers Care Jute Bag Cutting Machine Operator Name Role Phone Curt Falk MD Primary Care Provider [phone] Encounter Details Date Type Department Care Team (Late st Contact Info) Description 09/14/2024 Lab Requisition [facility] Lab [address] [facility] [place] [phone] Quang Hurd MD [address] [facility] [address] [place] [address] Frequency of micturition Social History Tobacco Use [...] Escherichia coli(A) KRISTIN 09/15/2024 10:55 AM EDT [facility] Other Urine specimen from urethra / Unknown 09/13/2024 09/14/2024 10:29 AM EDT Narrative [facility] - 09/15/2024 10:55 AM EDT [...] MICROBIOLOGY - G ENERAL ORDERABLES Final Result [facility] [address] [place] [address], documented in this encounter Visit Diagnoses Diagnosis Frequency of micturition Urinary frequency documented in this encounter Care Teams Jute Bag Cutting Machine Operator Relationship Specialty Start Date End Date Curt Falk MD [address] [place] [address] PCP - General 07/16/21 documented as of this encounter
--- OUTSIDE RECORDS SUMMARY | 2025-01-18 12:17 | XMS_ITS | Patient Health Record ---
Author Organization [facility] Address [address] [place] [address] Care Team Providers Care Bias Binding Folder Name Role Phone Dileep HIGGINS, Curt Primary Care Provider Perez Lee Jr Unavailable [phone] Allergies Allergen (clinical drug ingredient) Drug/Non Drug Allergy documented on EMR Reaction Allergy Type Onset Date Status Penicillin Unknown Drug Allergy Active Reason For Referral No Information Plan Of Treatment No Information Insurance Providers Payer Name Payer Address Payer Phone Subscriber Number Group Number Insured Name Patient Relationship to Insured Coverage Start Date Coverage End Date [facility] [address] [address] [place], [place] [id number] MARCI CHATMAN Self - patient is the insured Medical (General) History Medical History History ICD Code 09-29-2005 egd with balloon dilation 07-17-2004 colon and egd gerd irritable bowel syndrome panic attacks depression anxiety elevated cholesterol chronic pain syndrome nephrolithiasis status post lithotripsy cystitis Surgical History Surgery Date(Month/Year) oophorectomy hysterectomy
--- OUTSIDE RECORDS SUMMARY | 2025-01-18 12:17 | XMS_ITS | Clinical Summary ---
Author Organization [facility] Location Address [address] [place] [address] Phone Care Team Providers Care Transmitter Tester Name Role Phone Curt Falk MD Primary Care Provider + [phone] Allergies Active Allergy Reactions Criticality Noted Date [...] up to 3 doses total. 20 tablet 5 Active amLODIPine (NORVASC) 5 mg tablet Take 0.5 tablets (2.5 mg total) by mouth 1 (one) time each day. 15 each 5 026 Active Active Problems Problem Noted Date Diagnosed Date Chest pain at rest 12/10/2024 Dyspnea on exertion 12/10/2024 Primary hypertension 12/10/2024 Mixed hyperlipidemia 12/10/2024 Gastroesophageal reflux disease without esophagi tis 08/27/2024 Chronic renal impairment, stage 3 (moderate) 03/2025 Asthma 08/27/2024 Encounters Date Type Department Care Team Description 01/17/2025 9:38 AM EDT Hospital Encounter [facility] Non-Invasive Cardiology [address] [place] [address] Arrived 01/17/2025 9:35 AM EDT Hospital Encounter [facility] PET Scan [address] [place] [phone] Chest pain at rest; Dyspnea on exertion 12/10/2024 10:50 AM EDT Office Visit [facility] [address] [place] [phone] Yohana Wallace MD Dyspnea on exertion (Primary Dx); Chest pain at rest; Primary hypertension; Mixed hyperlipidemia from Last 3 Months Surgical History Surgery [...] Hyperlipidemia Hypertension CHF (congestive heart failur e) ([facility] V24, [facility] V28) Shortness of breath Chronic kidney disease [...] Pressure 135/68 01/17/2025 9:55 AM EDT Pulse 71 12/10/2024 10:34 AM EDT Temperature 36.4 C (97.5 F) 10/01/2024 1:54 PM EDT Respiratory Rate 16 10/01/2024 1:54 PM EDT Oxygen Saturation 96% 10/01/2024 1:54 PM EDT Inhaled Oxygen Concentration - - Weight 93.9 kg (207 lb) 01/17/2025 11:45 AM EDT Height 149.9 cm (4' 11 ) 01/17/2025 11:45 AM EDT Body Mass Index 41.81 01/17/2025 11:45 AM EDT Plan of Treatment Health Maintenance Due Date Last Done Comments Breast Cancer Screening 1955 Colorectal Cancer Screening: Colonoscopy 1955 Pneumococcal Vaccine: 50+ Ye ars (1 of 2 - PCV) 1973 Zoster Vaccines (1 of 2) 2004 RSV Immunization Adult Patie nts (1 - Risk 60-74 years 1-dose series) 2014 Cholesterol Screening (Lipid Panel) 03/21/2022 Hepatitis C Screening 03/21/2022 Medicare Annual [...] this topic Medical Devices Implanted Type Area Propagation Worker Device Identifier Shelf Expiration Date Model / Serial / Lot Joints Knee Joints Knee Right: Knee Cable Ext Interstim 4.32mm - Sn/A - [id number] Implanted:Qty: 1 on 08/15/2024 by Quang Hurd MD at [facility] Neurostim N/A: Sacrum [employer] 09/12/2025 [id number] / N/A / [id number] Kit Mri Lead Interstim 4.32-28cm - Sn/A - [id number] Implanted:Qty: 1 on 08/15/2024 by Quang Hurd MD at [facility] Neurostim N/A: Sacrum [employer] 10/09/2025 [id number] / N/A / [id number] System Interstim X Recharge-Free F/Bladder/Valentina l Cntrl - [id number] - [id number] Implanted:Qty: 1 on 08/27/2024 by Quang Hurd MD at [facility] Neurostim N/A: Back [employer] 06/15/2025 [id number] / [id number] / N/A Procedures Procedure Name Priority Date/Time Associated Diagnosis Comments PET MYOCARDIAL PERFUSION MULTIPLE W/ CONCURRENT CT SCAN Routine 01/18/2025 8:02 AM EDT Chest pain at rest Dyspnea on exertion Procedure Note - Darleen Rea PA / Yohana Wallace MD - 01/18/2025 8:02 AM EDTThis note is in progress. Stress: A pharmacological stress test was performed using regadenoson,0.4 mg IV over 10-15 seconds, followed by radiopharmacological udtcpbvvc35 seconds post infusion. The patient reported no [...] with regadenoson and through recovery. No arrhythmias. ECG 12-LEAD Routine 12/10/2024 10:39 AM EDT Chest pain at rest COMPREHENSIVE METABOLIC PANEL STAT 10/01/2024 10:58 AM EDT from Last 3 Months or Most Recently Relevant to Health Maintenance Results * ECG 12 lead (12/10/2024 10:39 AM EDT) Ventricular Rate ECG 71 BPM GEMUSE Atrial Rate 71 BPM GEMUSE P-R Interval 132 ms GEMUSE QRS Duration 82 ms GEMUSE Q-T Interval 378 ms GEMUSE QTc 410 ms GEMUSE P Wave [place] 55 degrees GEMUSE R [place] 16 degrees GEMUSE T [place] -57 degrees GEMUSE ECG Interpretation Normal sinus [...] MD ECG ORDERABLES Final Result GEMUSE * (ABNORMAL) Comprehensive metabolic panel (10/01/2024 10:58 AM EDT) Sodium 139 133 - 145 mmol/L LAB CHEMISTRY METHOD 10/01/2024 11:58 AM [facility] Potassium 3.9 3.5 - 5.5 mmol/L LAB CHEMISTRY METHOD 10/01/2024 11:58 AM [facility] Chloride 106 96 - 110 mmol/L LAB CHEMISTRY METHOD 10/01/2024 11:58 AM [facility] CO2 31 21 - 32 mmol/L LAB CHEMISTRY METHOD 10/01/2024 11:58 AM [facility] Anion Gap 2(L) 3 - 11 LAB CHEMISTRY METHOD 10/01/2024 11:58 AM [facility] Glucose 93 70 - 100 mg/dL LAB CHEMISTRY METHOD 10/01/2024 11:58 AM [facility] BUN 12 5 - 25 mg/dL LAB CHEMISTRY METHOD 10/01/2024 11:58 AM [facility] Creatinine 0.88 0.50 - 1.10 mg/dL LAB CHEMISTRY METHOD 10/01/2024 11:58 AM [facility] eGFR 71 >=60 mL/min/1. 73m2 LAB CHEMISTRY METHOD 10/01/2024 11:58 AM [facility] Comment:Calculation based on the Chronic Kidney Disease Epidemiology Collaboration (CKD-EPI) equation refit without adjustment for race. BUN/Creatinine Ratio 13.6 LAB CHEMISTRY METHOD 10/01/2024 11:58 AM [facility] Calcium 9.1 8.5 - 10.5 mg/dL LAB CHEMISTRY METHOD 10/01/2024 11:58 AM [facility] AST (SGOT) 22 10 - 42 unit/L LAB CHEMISTRY METHOD 10/01/2024 11:58 AM EDT [facility] ALT (SGPT) 26 10 - 60 unit/L LAB CHEMISTRY METHOD 10/01/2024 11:58 AM EDT [facility] Alkaline Phosphatase 70 42 - 121 unit/L LAB CHEMISTRY METHOD 10/01/2024 11:58 AM EDT [facility] Total Protein 6.6 6.0 - 8.0 g/dL LAB CHEMISTRY METHOD 10/01/2024 11:58 AM EDT [facility] Albumin 3.9 3.2 - 5.0 g/dL LAB CHEMISTRY METHOD 10/01/2024 11:58 AM EDT [facility] Total Bilirubin 0.5 0.0 - 1.4 mg/dL LAB CHEMISTRY METHOD 10/01/2024 11:58 AM EDT [facility] Blood Venous blood specimen / Unknown Venipuncture / Unknown 10/01/2024 10:58 AM EDT 10/01/2024 11:13 AM EDT us Skip Aquino DO LAB BLOOD ORDERABLES Final Res ult [facility] [address] [place] [address], from Last 3 Months or Most Recently Relevant to Health Maintenance Insurance [facility] MEDIC[facility] Member Subscriber Plan / Payer (Ef fective 2019-Present) Name:Celia Madrigal Relation to Subscriber:Self Name:Celia Marquez Payer ID:[id number] Group ID:[id number] Type:Not on file Address: [address] [place] [address] Care Teams Transmitter Tester Relationship Specialty Start Date End Date Curt Falk MD [address] [place] [address] [address] WILLIAM Barrera PCP - General 07/16/21
== END ==
LOC: HO.CARD 11:00
PROVIDERS: PCP Internal Medicine; Visit Provider Internal Medicine
DX: R06.09 Other forms of dyspnea (principal)
CPT/HCPCS: 93306

== ENCOUNTER → 2025-01-18 11:02 | Outpatient (BNV) | payer OTHER, SELFPAY | PROVIDERS: PCP Internal Medicine; Visit Provider Internal Medicine | DX: I35.8 Other nonrheumatic aortic valve disorders (principal); R06.09 Other forms of dyspnea | CPT/HCPCS: 93306 ==

== ENCOUNTER 2025-01-25 11:07 | Outpatient (AMB) | payer OTHER, SELFPAY ==
[2025-01-25 11:17] VITALS: BP 142/84; PULSE 92; O2SAT 95
--- NOTE | 2025-01-25 11:17 | MHC.OFFVIS ---
Vital Signs 01/25/25 11:17 BP 142/84 H Pulse 92 Pulse Oximetry (%) 95 Intake Visit Reasons: MAT Allergies Penicillins (PENICILLINS) Allergy (Intermediate, Verified 01/25/25 11:18) RASH HPI Comments Details: History of Present Illness The patient is a 69-year-old female presenting with management of opioid use disorder. She has been treated with Suboxone in the past at a dose of 8 mg BID, but she felt this was an excessive amount and experienced jitteriness and cravings upon cessation. She reported cutting the 8/2 mg Suboxone films into six pieces and consuming one piece in the morning. The patient has expressed concerns about the effects of taking higher doses and initially decided to cease use before restarting at a reduced level. Additionally, the patient incorporates gabapentin and lorazepam into her regimen to manage restless legs syndrome and sleep disturbance, respectively. She currently experiences mild withdrawal symptoms but desires to maintain some level of Suboxone therapy to mitigate cravings and prevent restlessness. Review of Systems - Neurological: Reports restless legs syndrome. - Psychiatric: Reports depression. - Musculoskeletal: Reports restlessness. - General: Reports withdrawal cravings, sleeplessness. Physical Exam - Vitals- Stable. Results Plan Patient was informed and verbally consented to the use of an ambient scribe for clinic note documentation during this visit. 1. Opioid use, unspecified, uncomplicated F11.90 The patient is prescribed Suboxone 2/0.5 mg, to be taken at half to one unit each morning. This approach should address cravings and restlessness effectively. A 30-day supply has been provided, with plans to evaluate progress in a month. 2. Restless Legs Syndrome Continue gabapentin 100 mg TID for the management of restless legs, following the regimen started by Dr. Falk. 3. Sleep disorder, unspecified G47.9 Lorazepam 0.5 mg daily is continued to assist with sleep, deemed necessary to support her general health and well-being. 4. Mild Withdrawal Symptoms Continuation of Suboxone should aid in managing withdrawal symptoms while maintaining a therapeutic balance. 5. Depression, unspecified F32.A Depression is monitored as a secondary issue; the primary treatment plan focuses on opioid dependency and associated symptoms. Discussion Notes During this visit, I discussed with the patient the careful adjustment of her Suboxone therapy to address her opioid use disorder and associated symptoms. We reviewed the risks and benefits of continuing Suboxone at a reduced dosage and the importance of management for restless legs syndrome and sleep disturbance. The decision to proceed with gabapentin and lorazepam was based on her current therapeutic needs and prior response to these treatments. Follow-up in one month was arranged to evaluate treatment effectiveness and symptom management further. Medical Decision Making The patient's treatment plan reflects a nuanced approach considering her preference and reports of jitteriness with the initial Suboxone dosage. Reducing the Suboxone strength should offer sustained relief from cravings and restlessness without excessive sedation. Continuation of gabapentin and lorazepam was deemed necessary for managing associated syndromes while depression remains a monitoring point due to its correlation with withdrawal symptoms. Optimizing her regimen with close monitoring is anticipated to improve adherence and quality of life. Patient Instructions - Take the new Suboxone as prescribed, 1/2 to 1 unit daily each morning. - Continue taking gabapentin as directed for restless legs. - Keep using lorazepam for sleeping issues. - Follow up in one month. - Contact the office if experiencing increased cravings, withdrawal symptoms, or any adverse effects. [facility] Medical History (Updated 01/16/25 @ 16:29 by Curt Falk MD) Arthralgia Opioid use disorder Abdominal pain Depression Anxiety Insomnia Myalgia, upper arm Osteoarthritis of right knee Lumbar spondylosis Foot pain, bilateral BRIDGETTE (obstructive sleep apnea) Asthma KAMILA positive Urticaria Obesity (BMI 30-39.9) Vitamin D deficiency Chronic interstitial cystitis Irritable bowel syndrome (IBS) Osteoarthritis Esophageal stricture GERD (gastroesophageal reflux disease) Left lumbar radiculopathy CAD (coronary artery disease) Pure hypercholesterolemia Benign essential hypertension Surgical History History of surgery History of total right knee replacement (09/22/21) Hx of cystoscopy Status post balloon dilatation of esophageal stricture (~2005) History of cardiac catheterization History of colonoscopy History of nephrolithotomy with removal of calculi History of tooth extraction Family History Father Hypertension Mother Hypertension Diabetes CVD (cardiovascular disease) Daughter No problems noted. Family/Other FH: mental illness Other Mental health problem Substance abuse Social History Housing: Apartment Are you a primary district manager primary care sales to a significant other at home: No Do you presently have visiting nurse or other home services: No Alcohol intake: never Comment: medicated, see MAR Patient Tobacco Use Status: Never used Tobacco e-Cigarette/Vaping Use: Never Used Second Hand Smoke Exposure: No service: No Current occupational status: disabled Cognitive needs: No Hearing needs: No Vision needs: Yes (Glasses) Physical Exam Vital Signs: Last Vital Signs Pulse 92 01/25/25 11:17 BP 142/84 H 01/25/25 11:17 Pulse Ox 95 01/25/25 11:17 Assessment & Plan Assessment & Plan (1) Opioid dependence: Code(s): F11.20 - Opioid dependence, uncomplicated Category: Medical Plan: as above Medications: New buprenorphine-naloxone 2-0.5 mg (Suboxone) place 1 strip/tab under (each) side of tongue 1 film sublingual DAILY 30 ea 0RF 30 days Coding Level of Care Code Est Pt Level 3 (40907) Diagnoses Opioid dependence F11.20
== END 2025-01-25 12:01 | disposition home or self-care (01) ==
LOC: HO.HCC 11:07
PROVIDERS: PCP Internal Medicine; Visit Provider Internal Medicine
DX: F11.20 Opioid dependence, uncomplicated (principal)
CPT/HCPCS: 99213

== ENCOUNTER → 2025-01-25 11:07 | Outpatient (BNVA) | payer OTHER, SELFPAY | PROVIDERS: PCP Internal Medicine; Visit Provider Internal Medicine | DX: F11.20 Opioid dependence, uncomplicated (principal) | CPT/HCPCS: 99212 ==

== ENCOUNTER 2025-01-28 11:56 | Outpatient (REF) | payer OTHER, SELFPAY ==
--- NOTE | ~2025-01-28 | XR_ITS ---
CLINICAL HISTORY: M79.641 - Pain in right hand 3 view left hand, 3 views right hand Comparison: None provided Findings: No fractures or dislocations. Osteoarthritic changes are noted throughout the interphalangeal joints. No radiopaque foreign body. IMPRESSION: 1. No acute findings This document has been electronically signed by: Chicho Isaac MD, PHD on 01/31/2025 03:29:46
--- OUTSIDE RECORDS SUMMARY | 2025-01-28 11:58 | XMS_ITS | Encounter Summary ---
Author Organization [facility] Address [address] [place] [address] Care Team Providers Care Tapper Balance Wheel Screw Hole Name Role Phone Curt Falk MD Primary Care Provider [phone] Encounter Details Date Type Department Care Team (Late st Contact Info) Description 09/14/2024 Lab Requisition [facility] - Main Lab [address] [facility] [place] [phone] Quang Hurd MD [address] [facility] [address] [place] [address] Frequency of micturition Social History Tobacco Use [...] Escherichia coli(A) KRISTIN 09/15/2024 10:[address] [facility] Other Urine specimen from urethra / Unknown 09/13/2024 09/14/2024 10:[address] [facility] - 09/15/2024 10:55 AM EDT [...] MICROBIOLOGY - G ENERAL ORDERABLES Final Result [facility] [address] [place] [address], documented in this encounter Visit Diagnoses Diagnosis Frequency of micturition Urinary frequency documented in this encounter Care Teams Tapper Balance Wheel Screw Hole Relationship Specialty Start Date End Date Curt Falk MD [address] [place] [address] PCP - General 07/16/21 documented as of this encounter
--- OUTSIDE RECORDS SUMMARY | 2025-01-28 11:58 | XMS_ITS | Patient Health Record ---
Author Organization [facility] Address [address] [place] [address] Care Team Providers Care Dye Tub Tender Name Role Phone Dileep HIGGINS, Curt Primary [...] Insured Coverage Start Date Coverage End Date [facility] [address] [address] [place], [place] [id number] MARCI CHATMAN Self - patient is the insured Medical (General) History Medical History History ICD Code 09-29-2005 egd with balloon dilation 07-17-2004 colon and egd gerd irritable bowel syndrome panic attacks depression anxiety elevated cholesterol chronic pain syndrome nephrolithiasis status post lithotripsy cystitis Surgical History Surgery Date(Month/Year) oophorectomy hysterectomy
--- OUTSIDE RECORDS SUMMARY | 2025-01-28 11:58 | XMS_ITS | Clinical Summary ---
Author Organization [facility] Location Address [address] [place] [address] Phone Care Team Providers Care Racehorse Trainer Name Role Phone Curt Falk MD Primary Care Provider + [phone] Allergies Active Allergy Reactions Criticality Noted Date [...] Care Team Description 01/17/2025 9:38 AM EDT - 01/17/2025 11:59 PM EDT Hospital Encounter [facility] Non-Invasive Cardiology [address] [place] [address] Discharge Disposition: Home or Self Care 01/17/2025 9:35 AM EDT - 01/17/2025 11:59 PM EDT Hospital Encounter [facility] PET Scan [address] [place] [phone] Chest pain at rest; Dyspnea on exertion Discharge Disposition: Home or Self Care 12/10/2024 10:50 AM EDT Office Visit [facility] [address] [place] [phone] Yohana Wallace MD Dyspnea on exertion (Primary [...] Hyperlipidemia Hypertension CHF (congestive heart failur e) ([facility] V24, [facility] V28) Shortness of breath Chronic [...] 2:35 PM EDT Sexual Orientation Straight 07/30/2024 2 :35 PM EDT Obstetrics History Last Filed Vital [...] this topic Medical Devices Implanted Type Area Fisherman Helper Device Identifier Shelf Expiration Date Model / Serial / Lot Joints Knee Joints Knee Right: Knee Cable Ext Interstim 4.32mm - Sn/A - [id number] Implanted:Qty: 1 on 08/15/2024 by Quang Hurd MD at [facility] Neurostim N/A: Sacrum [employer] 09/12/2025 [id number] / N/A / [id number] Kit Mri Lead Interstim 4.32-28cm - Sn/A - [id number] Implanted:Qty: 1 on 08/15/2024 by Quang Hurd MD at [facility] Neurostim N/A: Sacrum [employer] 10/09/2025 [id number] / N/A / [id number] System Interstim X Recharge-Free F/Bladder/Valentina l Cntrl - [id number] - [id number] Implanted:Qty: 1 on 08/27/2024 by Quang Hurd MD at [facility] Neurostim N/A: Back [employer] 06/15/2025 [id number] / [id number] / N/A Procedures Procedure Name Priority Date/Time Associated Diagnosis Comments PET MYOCARDIAL PERFUSION MULTIPLE W/ CONCURRENT CT SCAN Routine 01/18/2025 8:02 AM EDT Chest pain at rest Dyspnea on exertion Procedure Note - Darleen Rea PA / Yohana Wallace MD - 01/18/2025 8:02 AM EDTThis note is in progress. The patient underwent a myocardial perfusion PET study following the IVadministration of 34.95 mCi and 34.96 mCi of rubidium (Rb)-82 radioisotopeat rest and during vasodilator stress, respectively. Gated myocardialperfusion pet images were obtained at rest and during peak stress. Alimited CT scan of the chest was obtained solely for the purpose ofattenuation correction and is not meant to serve as a diagnostic study.Rest and stress imaging were performed on 01/17/2025. Stress: A pharmacological stress test was performed using regadenoson,0.4 mg IV over 10-15 seconds, followed by radiopharmacological froehmqvd02 seconds post infusion. The patient reported no symptoms during thestress test. ECG: ECGs remained unchanged with regadenoson and through recovery. Noarrhythmias. Impressions: 1. Normal myocardial perfusion imaging without evidence of ischemia orinfarction. 2. Normal left ventricular size, systolic function, and regional wallmotion at rest with ejection fraction of 58% with appropriate augmentationof LV systolic function with stress. Post-rest ejection fraction 66%. 3. Normal regional and global stress myocardial blood flow and flowreserve indicating no evidence of flow-limiting CAD or microvasculardysfunction. 4. Only minimal, scattered coronary artery calcifications noted. Findings Stress Findings A pharmacological stress test [...] with regadenoson and through recovery. No arrhythmias. Nuclear Study Quality Study technique: MPI, SPECT, multi, rest and stress, 1 day. Overall image quality is good. CT attenuation correction was utilized. Breast attenuation and increased bowel uptake artifact is present. artifacts are present. Patient has a history of chest pain. Patient has risk factor(s) of high LDL cholesterol and hypertension. Perfusion Defect Conclusion There is no evidence of transient ischemic dilation (TID). Absolute Flow Stress flow is normal with total score of 2.6 mL/min/g. Flow reserve is normal with total score of 2.4 mL/min/g. Stress Function Comments Left ventricular systolic function post-stress is normal. Stress ejection fraction is 66%. The stress end diastolic cavity size is normal. Rest Function Comments Left ventricular function at rest was normal. Resting ejection fraction was 58%. Nuclear Prior Study There is no prior study available for comparison. Perfusion Comments LV perfusion is normal. There is no evidence of inducible ischemia. ECG 12-LEAD Routine 12/10/2024 10:39 AM EDT [...] GEMUSE QTc 410 ms GEMUSE P Wave [place] 55 degrees GEMUSE R [place] 16 degrees GEMUSE T [place] -57 degrees GEMUSE ECG Interpretation Normal sinus [...] mmol/L LAB CHEMISTRY METHOD 10/01/2024 11:58 AM [facility] Potassium 3.9 3.5 - 5.5 mmol/L LAB CHEMISTRY METHOD 10/01/2024 11:58 AM [facility] Chloride 106 96 - 110 mmol/L LAB CHEMISTRY METHOD 10/01/2024 11:58 AM [facility] CO2 31 21 - 32 mmol/L LAB CHEMISTRY METHOD 10/01/2024 11:58 AM [facility] Anion Gap 2(L) 3 - 11 LAB CHEMISTRY METHOD 10/01/2024 11:58 AM [facility] Glucose 93 70 - 100 mg/dL LAB CHEMISTRY METHOD 10/01/2024 11:58 AM [facility] BUN 12 5 - 25 mg/dL LAB CHEMISTRY METHOD 10/01/2024 11:58 AM [facility] Creatinine 0.88 0.50 - 1.10 mg/dL LAB CHEMISTRY METHOD 10/01/2024 11:58 AM [facility] eGFR 71 >=60 mL/min/1. 73m2 LAB CHEMISTRY METHOD 10/01/2024 11:58 AM [facility] Comment:Calculation based on the Chronic Kidney Disease Epidemiology Collaboration (CKD-EPI) equation refit without adjustment for race. BUN/Creatinine Ratio 13.6 LAB CHEMISTRY METHOD 10/01/2024 11:58 AM [facility] Calcium 9.1 8.5 - 10.5 mg/dL LAB CHEMISTRY METHOD 10/01/2024 11:58 AM [facility] AST (SGOT) 22 10 - 42 unit/L LAB CHEMISTRY METHOD 10/01/2024 11:58 AM [facility] ALT (SGPT) 26 10 - 60 unit/L LAB CHEMISTRY METHOD 10/01/2024 11:58 AM EDT [facility] Alkaline Phosphatase 70 42 - 121 unit/L LAB CHEMISTRY METHOD 10/01/2024 11:58 AM EDT [facility] Total Protein 6.6 6.0 - 8.0 g/dL LAB CHEMISTRY METHOD 10/01/2024 11:58 AM EDT [facility] Albumin 3.9 3.2 - 5.0 g/dL LAB CHEMISTRY METHOD 10/01/2024 11:58 AM EDT [facility] Total Bilirubin 0.5 0.0 - 1.4 mg/dL LAB CHEMISTRY METHOD 10/01/2024 11:58 AM EDT [facility] Blood Venous blood specimen / Unknown Venipuncture / Unknown 10/01/2024 10:58 AM EDT 10/01/2024 11:13 AM EDT us Skip Aquino DO LAB BLOOD ORDERABLES Final Res ult [facility] [address] [place] [address], from Last 3 Months or Most Recently Relevant to Health Maintenance Insurance [facility] Member Subscriber Plan / Payer (Ef fective 2019-Present) Name:Celia Madrigal Relation to Subscriber:Self Name:Celia Marquez Payer ID:[id number] Group ID:[id number] Type:Not on file Address: [place] [address] [address] [id number] Care Teams Racehorse Trainer Relationship Specialty Start Date End Date Curt Falk MD [address] [place] [address] Dr [address] WILLIAM Barrera PCP - General 07/16/21
[2025-01-28 12:12] LABS: MANUAL DIFF FLAG NO
[2025-01-28 12:25] LABS: Hematocrit 37.3 % (37.0-47.0); Hemoglobin 11.4 g/dl (12.0-16.0); Imm Gran Abs Auto 0.02 X10*3/uL (0.00-0.03); Imm Gran Pct Auto 0.3 % (0.0-0.4); Lymphocytes Absolute Auto 1.4 X10*3/uL (1.2-4.9); Mean Corpuscular HGB Conc 30.6 g/dl (31.0-35.0); Mean Corpuscular Hemoglobin 25.4 pg (27.0-33.0); Mean Corpuscular Volume 83.1 fL (80.0-98.0); NRBC Abs Auto 0.000 X10*3/uL (0.0-0.012); NRBC Pct Auto 0.0 /100WBC (0.0-0.2); Platelet Count 231 X10*3/uL (160-400); Red Blood Count 4.49 X10*6/uL (4.20-5.50); White Blood Count 6.7 X10*3/uL (4.8-10.8)
[2025-01-28 12:27] LABS: Appearance Urine Clear; Glucose Urine UA Negative (Negative); PH 7.0 (5.0-9.0); Specific Gravity - Urine 1.020 (1.005-1.025); UMIC TRIGGER UACC YES
[2025-01-28 12:32] LABS: UACC Culture Trigger YES
[2025-01-28 12:56] LABS: Alanine Aminotransferase 16 U/L (0-31); Albumin Level 4.5 g/dL (3.5-5.0); Alkaline Phosphatase 76 U/L (39-117); Anion Gap 10 (12-20); Aspartate Amino Transferase 26 U/L (5-31); Blood Urea Nitrogen 11 mg/dL (9-16); Calcium 9.4 mg/dL (8.4-10.2); Carbon Dioxide 29 mmol/L (22-29); Chloride 109 mmol/L (96-108); Cholesterol 143 mg/dL (<200); Estimated Glomerular Filt Rate > 60; HDL Cholesterol 37 mg/dL (>40); Potassium 4.1 mmol/L (3.3-5.1); Sodium 144 mmol/L (135-145); Total Protein 7.2 g/dL (6.5-8.0); Triglycerides 155 mg/dL (<150)
[2025-01-31 10:07] LABS: Anti Nuclear Antibody Screen NEGATIVE (NEGATIVE)
== END 2025-01-28 11:57 | disposition home or self-care (01) ==
LOC: HO.XRAY 11:56
PROVIDERS: PCP Internal Medicine; Visit Provider Internal Medicine
DX: Z01.84 Encounter for antibody response examination (principal); D64.9 Anemia, unspecified; E78.00 Pure hypercholesterolemia, unspecified; M79.641 Pain in right hand; M79.642 Pain in left hand; R73.01 Impaired fasting glucose; M25.50 Pain in unspecified joint
CPT/HCPCS: 36415; 73130; 80053; 80061; 81001; 83036; 84443; 85025; 85652; 86038; 86039; 86140; 86431; 87086

== ENCOUNTER → 2025-01-28 12:19 | Outpatient (BNV) | payer OTHER, SELFPAY | PROVIDERS: PCP Internal Medicine; Visit Provider General Practice | DX: M79.641 Pain in right hand (principal) | CPT/HCPCS: 73130 ==

== ENCOUNTER 2025-02-22 08:16 | Outpatient (REF) | payer OTHER, SELFPAY ==
--- NOTE | ~2025-02-22 | XR_ITS ---
EXAMINATION: XR KNEE, RIGHT CLINICAL INFORMATION: M17.11 - Unilateral primary osteoarthritis, right knee COMPARISON: 12/10/2022 knee radiographs. TECHNIQUE: AP view bilateral knees standing, lateral and patellofemoral views right knee. FINDINGS: LEFT KNEE: No fracture, dislocation, or suspicious bone lesion. Mild to moderate medial compartment osteoarthritis, and mild lateral compartment changes. Spurring of the tibial spines. Normal-appearing soft tissues. RIGHT KNEE: There has been a total right knee arthroplasty. Femoral, and tibial components appear intact, well seated, in anatomic alignment. There is been associated patellar resurfacing. There is a grossly normal patellar alignment. There is no periprosthetic abnormality or fracture. There is a small suprapatellar joint effusion. There is no soft tissue abnormality. XR/XR knee RT 3V IMPRESSION: 1. Total right knee arthroplasty without complication evident. Electronically signed by: Vishal Clifford MD 02/22/2025 11:09 AM LEONARD
== END 2025-02-22 08:17 | disposition home or self-care (01) ==
LOC: HO.HOSX 08:16
PROVIDERS: Visit Provider Physician Assistant
DX: M17.11 Unilateral primary osteoarthritis, right knee (principal); M70.51 Other bursitis of knee, right knee; Z96.651 Presence of right artificial knee joint
CPT/HCPCS: 73562; 99212

== ENCOUNTER 2025-02-22 10:54 | Outpatient (AMB) | payer OTHER, SELFPAY ==
--- NOTE | 2025-02-22 11:05 | A.OFFVIS_ITS ---
Intake Visit Reasons: OV-RT Knee pain s/p right TKA 09/22/21 NE Intake Note: Celia is a 67 year old female who presents today for a follow up of her right knee. she is s/p Right TKA 09/22/21. At her last visit with Dr Deras patient was advised to stay active. Today patient reports for the past couple of months she has been experiencing pain and involuntary shaking in her leg at night. Her pain is located at the anterior aspect of knee that radiates up her leg into her thigh area. States that she was seen by her PCP, who prescribed mediation however this did not help. Denies injury. Allergies Penicillins (PENICILLINS) Allergy (Intermediate, Verified 02/22/25 11:08) RASH Medication List - Last Reconciled 02/22/25 by Luanne Menjivar PA-C acetaminophen 650 mg (2 x 325 mg) PO Q6H PRN 30 days [ADULT PULL-UPS As directed] [ADULT PULL-UPS As directed] albuterol sulfate 2.5 mg (3 mL) continuous nebulization Q6H PRN 30 days albuterol sulfate 90 mcg/actuation 2 inhalations inhalation Q6H PRN 30 days albuterol-budesonide 90-80 mcg/actuation (Airsupra) 2 inhalations inhalation BID PRN atorvastatin 10 mg PO BEDTIME 90 days blood pressure kit-extra large As directed buprenorphine HCl 2 mg sublingual BID 7 days buprenorphine-naloxone 2-0.5 mg (Suboxone) 1 film sublingual DAILY 30 days buprenorphine-naloxone 8-2 mg (Suboxone) 1 film sublingual BID 30 days escitalopram oxalate 20 mg PO DAILY 90 days ezetimibe 10 mg PO DAILY fluticasone propion-salmeterol 115-21 mcg/actuation (Advair HFA) 2 puffs inhalation Q12H 30 days furosemide (Lasix) 20 mg PO DAILY 5 days gabapentin 100 mg PO TID ibuprofen 600 mg PO Q8H PRN lorazepam mg PO BID PRN methocarbamol 750 mg PO QID naloxone 4 mg/actuation (Narcan) 4 mg intranasal Q3M PRN naproxen 500 mg PO BID [NEBULIZER and all related supplies As directed] omeprazole 40 mg PO DAILY 90 days polyethylene glycol 3350 (Miralax) 17 grams PO ONCE PRN [Pure Wick External Catheters -Urine Collection System As directed Pure Wick External Catheters -Urine Collection System] [PureWick As directed] trazodone 100 mg PO BEDTIME PRN [wipes As directed] HPI HPI OV-RT Knee pain s/p right TKA 09/22/21 NE: Details: 69 yo female presents to the office today f/u RT TKA 09/22/21. She states she has RLS and is on medication for this but it is not helping. She is going to fu with her pcp regarding this. She c/o sharp pain in the right knee from the duncan that goes into the quad muscle. She has not been to PT recently. She denies recent injury or illness. No fever or chills. [facility] Medical History (Updated 02/22/25 @ 11:21 by Luanne Menjivar PA-C) Arthralgia Opioid use disorder Abdominal pain Depression Anxiety Insomnia Myalgia, upper arm Osteoarthritis of right knee Lumbar spondylosis Foot pain, bilateral BRIDGETTE (obstructive sleep apnea) Asthma KAMILA positive Urticaria Obesity (BMI 30-39.9) Vitamin D deficiency Chronic interstitial cystitis Irritable bowel syndrome (IBS) Osteoarthritis Esophageal stricture GERD (gastroesophageal reflux disease) Left lumbar radiculopathy CAD (coronary artery disease) Pure hypercholesterolemia Benign essential hypertension Surgical History History of surgery History of total right knee replacement (09/22/21) Hx of cystoscopy Status post balloon dilatation of esophageal stricture (~2005) History of cardiac catheterization History of colonoscopy History of nephrolithotomy with removal of calculi History of tooth extraction Family History Father Hypertension Mother Hypertension Diabetes CVD (cardiovascular disease) Daughter No problems noted. Family/Other FH: mental illness Other Mental health problem Substance abuse Social History Housing: Apartment Are you a primary neonatal intensive care unit nurse to a significant other at home: No Do you presently have visiting nurse or other home services: No Alcohol intake: never Comment: medicated, see MAR Patient Tobacco Use Status: Never used Tobacco e-Cigarette/Vaping Use: Never Used Second Hand Smoke Exposure: No service: No Current occupational status: disabled Cognitive needs: No Hearing needs: No Vision needs: Yes (Glasses) Review of Systems Const All systems reviewed & are unremarkable except as noted in HPI and below Physical Exam Extrem Other: Right knee surgical scar present. No erythema or joint effusion present she has full range of motion. There is a deformity over the distal end of the quad tendon which may represent dehiscence of the quad at the time of surgery. She can perform straight leg raise. She has tenderness along the medial proximal tibia into the pes bursa. No ligamentous laxity. Calf is supple and nontender neurovascularly intact. Results Reviewed Results Reviewed: X-rays of the right knee obtained in the office today and reviewed by me show intact prosthesis Assessment & Plan Assessment & Plan (1) Status post total knee replacement, right: Code(s): Z96.651 - Presence of right artificial knee joint Category: Surgical (2) Pes anserinus bursitis of right knee: Code(s): M70.51 - Other bursitis of knee, right knee Category: Medical Plan I explained to the patient there is no evidence of acute infection and the prosthesis does not appear to be loose. I do feel she may be experiencing some pes bursitis from chronic weakness in the hamstrings and quad. I strongly encouraged her to attend physical therapy to work on conditioning/strength exercises. I did place an order and she was given the phone number to call the [place] office to make an appointment. I asked that she come it to 6 weeks of physical therapy and then she can return to see me to discuss other options if her symptoms persist. The patient does express understanding and is content with this plan. Orders: Orders PT Evaluation and Treatment Today M70.51 - Other bursitis of knee, right knee, Z96.651 - Presence of right artificial knee joint XR knee RT 3V Today M17.11 - Unilateral primary osteoarthritis, right knee Coding Level of Care Code Est Pt Level 3 (16054) Complex EM visit Add On G2211 Diagnoses Status post total knee replacement, right Z96.651 Pes anserinus bursitis of right knee M70.51
--- OUTSIDE RECORDS SUMMARY | 2025-02-22 13:08 | XMS_ITS | Encounter Summary ---
Author Organization [facility] Address [address] [place] [address] Care Team Providers Care Treating Engineer Helper Name Role Phone Curt Falk MD Primary Care Provider [phone] Encounter Details Date Type Department Care Team (Late st Contact Info) Description 09/14/2024 Lab Requisition [facility] - Main Lab [address] [facility] [place] [phone] Quang Hurd MD [address] [facility] [address] [place] [address] Frequency of micturition Social History Tobacco Use [...] Escherichia coli(A) KRISTIN 09/15/2024 10:55 AM EDT [facility] Other Urine specimen from urethra / Unknown 09/13/2024 09/14/2024 10:29 AM EDT Narrative [facility] - 09/15/2024 10:55 AM [...] - G ENERAL ORDERABLES Final Result [facility] [address] [place] [address], documented in this encounter Visit Diagnoses Diagnosis Frequency of micturition Urinary frequency documented in this encounter Care Teams Treating Engineer Helper Relationship Specialty Start Date End Date Curt Falk MD [address] [place] [address] PCP - General 07/16/21 documented as of this encounter
--- OUTSIDE RECORDS SUMMARY | 2025-02-22 13:08 | XMS_ITS | Data Portability ---
Author Organization [employer] [facility], S[facility] [employer] [facility] Address [address] [place] [address] Care Team Providers Care Installment Loan Collector Name Role Phone HIM CCA OTHER BECKY SPAIN Primary Care Provider [phone] Assessment Encounter Date Assessment Date Assessment LastModified [...] Orders prednisone 20 mg tablet 2023 024 [facility] #[id number], [address] [facility] [place], [address], 18:26:49 Patient TargetsNo targets recorded. Patient InstructionsNo instructions recorded. Reason for Referral None Reported. Medical Equipment None Reported. Allergies Allergen ID Allergen Name Allergen Category Reaction Reaction Severity Criticality Documentation Date Start Date Code Code System Note Provider Name and Address Organization Details Recorded Time 6403 Product containin g penicilli n (product) medicatio n Not available Not available Not available 02/14/2024 31340 8001 SNOMED Not Available [facility] - production [...] Diagnosis SNOMED-CT Code Diagnosis ICD10 Code Diagnosis IMO Codes Diagnosis Note [id number] Efrain Gomez MD Main - [facility] [address] [place] [phone] 05/19/2023 18:01:49 05/20/2023 11:31:35 Exacerbation of intermittent asthma [id number] J45.21 [id number] [facility] [address] [place] [phone] 07/23/2024 18:15:24 07/23/2024 19:53:44 Pruritic rash [id number] L28.2 [id number] 69 year old female being evaluated for a year of intermitte nt pruritic rash. Patient reports having a full body rash that comes and goes, has been seen by mutliple doctors including residential specialist s, and tried multiple antihistam ofe [...] assessment and plan as documented by the respiratory care specialist. I provided real-time medical direction for [...] Davidson Member ID Guarantor Name 07/23/2024 1 [facility] - DOS ON OR AFTER 2022 - DUAL ELIGIBLE - [facility] OPTIONS AND ONE CARE (MEDICARE REPLACEMENT/ADV ANTAGE - HMO) Celia Madrigal [id number] Celia Phillips Ziggysuzy Notes Date Note Type [...] cough, sore throat, fever. 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 Member requesting home visit. Member advised to call 911 with any worsening symptoms. PMH: includes but not limited to HTN, coronary artery disease, asthma, IBD, GERD, anxiety ..................... ..................... ..................... ..................... ..................... ..................... ............... CRC Nurse Triage Notes (Leonor Vizcaino): Comments: No further information required to process visit. ..................... ..................... ..................... ..................... ..................... ..................... ............... Flat Sorter Processor Note From Yuri Bedolla: Encountered patient conscious, [...] performed, both resulted negative; results relayed to [facility]. Skin warm, dry and of appropriate color for ethnicity. Head and neck, free of trauma and edema. JVD. Breath sounds diminished in all hopper and exhibit faint expiratory wheezes in the apexes bilaterally. Abdomen soft, non-tender and non-distended. extremities, free of trauma and edema. [facility] contacted: Duoneb treatment administered. 12 lead EKG performed: sinus rhythm with septal T-wave inversion noted. 30 mg of PO prednisone administered. [facility] to write prescription for further treatment at [...] would also like to remain at home. Flat Sorter Processor Allergies: Penicillin, Aspirin ..................... ..................... ..................... ..................... ..................... ..................... ............... Disposition: Luann Efrain Gomez MD [address] [facility], [place], [address], [employer] 05/19/2023 19:03:41 07/23/2024 text/html CRC Nurse Triage [...] ..................... ..................... ..................... ..................... ..................... ..................... ............... Flat Sorter Processor Note From Bradford Solorio: This 69-year-old female [...] because of the risks. Patient states the package pick up started her on Dupixent injections every two weeks. Patient has had two injections in the package pick up states that this could take two to three months before it starts working. Patient states she went to [facility] over the weekend and was prescribed [...] her PCP on Tuesday and involve the package pick up if necessary. I instructed her to present to the emergency department for any new or worsening severe symptoms such as chest pain, shortness of breath, dysphagia, high fever, altered mental status. The patient was given the opportunity to ask questions and is agreeable to this plan. ..................... ..................... ..................... ..................... ..................... ..................... ............... [facility] Consulted: Iris Boo ..................... ..................... ..................... ..................... ..................... ..................... ............... Disposition: Fulfilled Iris Boo MD [address] [facility], [place], [address], [place] [facility] - [facility]ONTRELL CHING 07/23/2024 19:23:45 OBGyn Episode No OBEpisode recorded.
--- OUTSIDE RECORDS SUMMARY | 2025-02-22 13:08 | XMS_ITS | Clinical Summary ---
Author Organization [facility] Location Address [address] [place] [address] Phone Care Team Providers Care End Matcher Name Role Phone Curt Falk MD Primary Care Provider + [phone] Allergies Active Allergy Reactions Criticality Noted Date [...] Encounters Date Type Department Care Team Description 02/18/2025 Results Follow-Up [facility] - [facility] [address] [facility] [address] [place] [address] Lew Lowery NP 01/17/2025 9:38 AM EDT - 01/17/2025 11:59 PM EDT Hospital Encounter [facility]iology [address] [place] [phone] Discharge Disposition: Home or Self Care 01/17/2025 9:35 AM EDT - 01/17/2025 11:59 PM EDT Hospital Encounter [facility] PET Scan [address] [place] [phone] Chest pain at rest; Dyspnea on exertion Discharge Disposition: Home or Self Care 12/10/2024 10:50 AM EDT Office Visit [facility] - [address] [place] [address] Yohana Wallace MD Dyspnea on exertion (Primary [...] Hyperlipidemia Hypertension CHF (congestive heart failur e) (CMS/[facility] V24, CMS/[facility] V28) Shortness of breath Chronic kidney disease [...] ars (1 of 2 - PCV) 1973 RSV Immunization Adult Patie nts (1 - Risk 50-74 years 1-dose series) 2004 Zoster Vaccines (1 of 2) 2004 Cholesterol Screening (Lipid Panel) 03/21/2022 Hepatitis C [...] this topic Medical Devices Implanted Type Area Manager Water Device Identifier Shelf Expiration Date Model / Serial / Lot Joints Knee Joints Knee Right: Knee Cable Ext Interstim 4.32mm - Sn/A - [id number] Implanted:Qty: 1 on 08/15/2024 by Quang Hurd MD at [facility] Neurostim N/A: Sacrum [employer] 09/12/2025 [id number] / N/A / [id number] Kit Mri Lead Interstim 4.32-28cm - Sn/A - [id number] Implanted:Qty: 1 on 08/15/2024 by Quang Hurd MD at [facility] Neurostim N/A: Sacrum [employer] 10/09/2025 [id number] / N/A / [id number] System Interstim X Recharge-Free F/Bladder/Valentina l Cntrl - [id number] - [id number] Implanted:Qty: 1 on 08/27/2024 by Quang Hurd MD at [facility] Neurostim N/A: Back [employer] 06/15/2025 [id number] / [id number] / N/A Procedures Procedure Name Priority Date/Time Associated Diagnosis Comments PET MYOCARDIAL PERFUSION MULTIPLE W/ CONCURRENT CT SCAN Routine 01/18/2025 8:02 AM EDT Chest pain at rest Dyspnea on exertion ECG 12-LEAD Routine 12/10/2024 10:39 AM EDT Chest pain at rest COMPREHENSIVE METABOLIC PANEL STAT 10/01/2024 10:58 AM EDT from Last 3 Months or Most Recently Relevant to Health Maintenance Results * PET MYOCARDIAL PERFUSION MULTIPLE W/ CONCURRENT CT SCAN (01/18/2025 8:02 AM EDT) Target HR 128 bpm RIS PACS/VR Baseline HR 78 bpm RIS PACS/VR Baseline SBP 135 mmHg RIS PACS/VR Baseline DBP 68 mmHg RIS PACS/VR Peak HR 96 bpm RIS PACS/VR Peak SBP 153 mmHg RIS PACS/VR Peak DBP 70 mmHg RIS PACS/VR Rate Pressure Product 14,688.0 mmHg*bpm RIS PACS/VR Percent HR 64 % RIS PACS/VR ST Depression (mm) 0 mm RIS PACS/VR TID 1.04 RIS PACS/VR Nuc Stress EDV 116.0 mL RIS PACS/VR Nuc Stress EF 66 % RIS PACS/VR Nuc Rest EDV 106.0 mL RIS PACS/VR Nuc Rest EF 58 % RIS PACS/VR Anatomical Region Laterality Modality Radiographic Bindu ging Narrative 02/01/2025 11:43 AM EDT The patient underwent a myocardial perfusion PET study following the IV administration of 34.95 mCi and 34.96 mCi of rubidium (Rb)-82 radioisotope at rest and during vasodilator stress, respectively. Gated myocardial perfusion pet images were obtained at rest and during peak stress. A limited CT scan of the chest was obtained solely for the purpose of attenuation correction and is not meant to serve as a diagnostic study. Rest and stress imaging were performed on 01/17/2025. Stress: A pharmacological stress test was performed using regadenoson, 0.4 mg IV over 10-15 seconds, followed by radiopharmacological injection 55 seconds post infusion. The patient reported no symptoms during the stress test. ECG: ECGs remained unchanged with regadenoson and through recovery. No arrhythmias. Impressions: 1. Normal myocardial perfusion imaging without evidence of ischemia or infarction. 2. Normal left ventricular size, systolic function, and regional wall motion at rest with ejection fraction of 58% with appropriate augmentation of LV systolic function with stress. Post-rest ejection fraction 66%. 3. Normal regional and global stress myocardial blood flow and flow reserve indicating no evidence of flow-limiting CAD or microvascular dysfunction. 4. Only minimal, scattered coronary artery calcifications noted. Stress Findings A pharmacological stress test was [...] There is no evidence of inducible ischemia. us Yohana Wallace MD CV CARDIAC NUCLEAR PROCEDURES F inal Result * ECG 12 lead (12/10/2024 10:39 AM EDT) Pathologist [facility] Ventricular Rate ECG 71 BPM GEMUSE Atrial Rate 71 BPM GEMUSE P-R Interval 132 ms GEMUSE QRS Duration 82 ms GEMUSE Q-T Interval 378 ms GEMUSE QTc 410 ms GEMUSE P Wave [place] 55 degrees GEMUSE R [place] 16 degrees GEMUSE T [place] -57 degrees GEMUSE ECG Interpretation Normal sinus [...] 9 AM EDT 12/10/2024 12:59 PM EDT Yohana Wallace MD ECG ORDERABLES Final Result GEMUSE * (ABNORMAL) Comprehensive metabolic panel (10/01/2024 10:58 AM EDT) [facility] Sodium 139 133 - 145 mmol/L LAB CHEMISTRY METHOD 10/01/2024 11:58 AM EDT [facility] Potassium 3.9 3.5 - 5.5 mmol/L LAB CHEMISTRY METHOD 10/01/2024 11:58 AM T [facility] Chloride 106 96 - [...] unit/L LAB CHEMISTRY METHOD 10/01/2024 11:58 AM [facility] ALT (SGPT) 26 10 - 60 unit/L LAB CHEMISTRY METHOD 10/01/2024 11:58 AM [facility] Alkaline Phosphatase 70 42 - 121 unit/L LAB CHEMISTRY METHOD 10/01/2024 11:58 AM [facility] Total Protein 6.6 6.0 - 8.0 g/dL LAB CHEMISTRY METHOD 10/01/2024 11:58 AM [facility] Albumin 3.9 3.2 - 5.0 g/dL LAB CHEMISTRY METHOD 10/01/2024 11:58 AM [facility] Total Bilirubin 0.5 0.0 - 1.4 mg/dL LAB CHEMISTRY METHOD 10/01/2024 11:58 AM [facility] Blood Venous blood specimen / Unknown Venipuncture / Unknown 10/01/2024 10:58 AM EDT 10/01/2024 11:13 AM EDT Skip Aquino DO LAB BLOOD ORDERABLES Final Res ult [facility] [address] [place] [address], from Last 3 Months or Most Recently Relevant to Health Maintenance Insurance [facility] MEDICARE Member Subscriber Plan / Payer (Ef fective 2019-Present) Name:Celia Madrigal Relation to Subscriber:Self Name:Celia Marquez Payer ID:[id number] Group ID:[id number] Type:Not on file Address: [place] [address] [address] [id number] Care Teams End Matcher Relationship Specialty Start Date End Date Curt Falk MD [address] [place], [place] PCP - General 07/16/21
--- OUTSIDE RECORDS SUMMARY | 2025-02-22 13:08 | XMS_ITS | Encounter Summary ---
Author Organization [facility] Address [address] [place] [address] Care Team Providers Care Greek Professor Name Role Phone Curt Falk MD Primary Care Provider [phone] Encounter Details Date Type Department Care Team (Late st Contact Info) Description 02/18/2025 Results Follow-Up [facility] - [address] [facility] [address] [place] [phone] Lew Lowery NP [address] [address] [place] [phone] Social History Tobacco Use Types Packs/Day Years [...] 3:24 PM EDT Alley, Heather, RN * Are you blind or do [...] Heather Hager RN documented in this encounter Progress Notes * Lew Lowery NP - 02/18/2025 3:59 PM EST Can we reach out to the patient and let her know that her stress test did not show any concerning findings. documented in this encounter Plan of Treatment Not on file documented as of this encounter Visit Diagnoses Not on filedocumented in this encounter Care Teams Greek Professor Relationship Specialty Start Date End Date Curt Falk MD [address] [place] [address] Dr [address] [place] PCP - General 07/16/21 documented as of this encounter
--- OUTSIDE RECORDS SUMMARY | 2025-02-22 13:08 | XMS_ITS | Patient Health Record ---
Author Organization [facility] Address [address] [place] [address] Care Team Providers Care Buildings Painter Name Role Phone Dileep HIGGINS, Curt Primary Care Provider Perez Lee Jr Unavailable [phone] Allergies Allergen (clinical drug ingredient) Drug/Non Drug Allergy documented on EMR Reaction Allergy Type Onset Date Status Penicillin Unknown Drug Allergy Active Reason For Referral No Information Plan Of Treatment No Information Insurance Providers Payer Name Payer Address Payer Phone Subscriber Number Group Number Insured Name Patient Relationship to Insured Coverage Start Date Coverage End Date [facility] [address] [address] [place], [place] [id number] MARCI CHATMAN Self - patient is the insured Medical (General) History Medical History History ICD Code 09-29-2005 egd with balloon dilation 07-17-2004 colon and egd gerd irritable bowel syndrome panic attacks depression anxiety elevated cholesterol chronic pain syndrome nephrolithiasis status post lithotripsy cystitis Surgical History Surgery Date(Month/Year) oophorectomy hysterectomy
== END 2025-02-22 11:27 | disposition home or self-care (01) ==
LOC: HO.HOS 10:55
PROVIDERS: PCP Internal Medicine; Visit Provider Physician Assistant
DX: M70.51 Other bursitis of knee, right knee (principal); Z96.651 Presence of right artificial knee joint
CPT/HCPCS: 99213; G2211

== ENCOUNTER → 2025-02-22 10:56 | Outpatient (BNV) | payer OTHER, SELFPAY | PROVIDERS: Visit Provider Radiology Diagnostic Radiology | DX: M17.11 Unilateral primary osteoarthritis, right knee (principal); Z96.651 Presence of right artificial knee joint | CPT/HCPCS: 73562 ==

== ENCOUNTER 2025-03-04 10:25 | Outpatient (AMB) | payer OTHER, SELFPAY ==
--- NOTE | 2025-03-04 10:33 | MHC.OFFVIS ---
Vital Signs 03/04/25 10:37 Height 4 ft 11 in Weight 201 lb BMI 40.6 BP 124/80 Blood Pressure Location Lt brachial Position Sitting Pulse 70 Pulse Source Pulse Oximeter Pulse Oximetry (%) 96 Oxygen Delivery Method Room Air Intake Visit Reasons: MAT Concert Manager Required: Yes Concert Manager Services: Concert Manager Present Concert Manager Name: Georgie Romero CMA Information Interpreted: clinical only Allergies Penicillins (PENICILLINS) Allergy (Intermediate, Verified 03/08/25 10:00) RASH HPI HPI MAT: Details: She is not using Suboxone as directed as trying to get off PFSH Medical History Arthralgia Opioid use disorder Abdominal pain Depression Anxiety Insomnia Myalgia, upper arm Osteoarthritis of right knee Lumbar spondylosis Foot pain, bilateral BRIDGETTE (obstructive sleep apnea) Asthma KAMILA positive Urticaria Obesity (BMI 30-39.9) Vitamin D deficiency Chronic interstitial cystitis Irritable bowel syndrome (IBS) Osteoarthritis Esophageal stricture GERD (gastroesophageal reflux disease) Left lumbar radiculopathy CAD (coronary artery disease) Pure hypercholesterolemia Benign essential hypertension Surgical History History of surgery History of total right knee replacement (09/22/21) Hx of cystoscopy Status post balloon dilatation of esophageal stricture (~2005) History of cardiac catheterization History of colonoscopy History of nephrolithotomy with removal of calculi History of tooth extraction Family History Father Hypertension Mother Hypertension Diabetes CVD (cardiovascular disease) Daughter No problems noted. Family/Other FH: mental illness Other Mental health problem Substance abuse Social History Housing: Apartment Are you a primary janitor caretaker to a significant other at home: No Do you presently have visiting nurse or other home services: No Alcohol intake: never Comment: medicated, see MAR Patient Tobacco Use Status: Never used Tobacco e-Cigarette/Vaping Use: Never Used Second Hand Smoke Exposure: No service: No Current occupational status: disabled Cognitive needs: No Hearing needs: No Vision needs: Yes (Glasses) Review of Systems Const All systems reviewed & are unremarkable except as noted in HPI and below Physical Exam Vital Signs: Last Vital Signs Pulse 70 03/04/25 10:37 BP 124/80 03/04/25 10:37 Pulse Ox 96 03/04/25 10:37 Oxygen Delivery Method Room Air 03/04/25 10:37 BMI result Body Mass Index 40.6 Assessment & Plan Assessment & Plan (1) Opioid dependence: Code(s): F11.20 - Opioid dependence, uncomplicated Category: Medical Plan: She will let us know if wants to remain on Suboxone and make appointment Coding Level of Care Code Est Pt Level 3 (37327) Diagnoses Opioid dependence F11.20
[2025-03-04 10:37] VITALS: BP 124/80; PULSE 70; O2SAT 96; BMI 40.6
--- OUTSIDE RECORDS SUMMARY | 2025-03-04 21:29 | XMS_ITS | Continuity of Care Document ---
Author Name [facility] Address [address] [place] [address] Organization Unknown Address [address] [place] [address] Medications No known medications Problems No known problems
--- OUTSIDE RECORDS SUMMARY | 2025-03-04 21:30 | XMS_ITS | Encounter Summary ---
Author Organization [facility] Address [address] [place] [address] Encounters * CPT with Medical [facility] at [facility] on 2025-02-27 Celia called into [facility] stating she has been experiencing dizziness since Tuesday, pretty frequent from waking until bedtime. She has not reported to PCP at this time. she states this dizziness has caused her to want to lie down and sleep a lot and not be able to eat well. She denies being able to take in good oral fluids. Celia denies headache, vision changes, nausea, CP or shortness of breathe. She denies hx of diabetes. Her PMH includes, but not limited to: CHF, CAD and HTN. Physical Therapy Assistant Instructor educated Celia on safety precautions, rising slow and sitting back down if feels dizzy or unsafe, Celia verbalized understanding. { reasonForRequest : Dizziness , patientReports : , de nies :[], chiefComplaints : Dizziness , pmh : Congestive Heart Failure, Coronary Artery Disease, Hypertension , allergies : Penicillins, Asp irin , otherAllergies :null, painAssessment : , visitOutcom e : , additionalComments : HPI reviewed. } [facility] makes pt contact a 69 yo F cc of dizziness. [facility] obtains vital signs. PT explains for 2 months shes been having a decrease in her overall appetite to where she went from 219 to now 190. PT says tuesday she began feeling dizzy. PT describes it as her body is just tired and weak. She feels better laying down but sitting vs walking around the dizziness is the same. PT recently had an echocardiogram and an ekg done due to hypertrophy. PT is awaiting to hear from the doctor. PT has no hx of vertigo. PT denies chest pain, n/v, sob. no fever ispresent, no edema. No hx of kidney issues. Allergies to PNC and ASA. [facility] contacts [facility] and explains above mentioned. [facility] orders an istat and an ekg. Lab sample obtained via [facility] and bandaged appropriately, istat results uploaded. EKG performed and results uplaoded. [facility] advises pt against red flags which include but not limited to sob,chest pain, n,v fever, syncope, ams that she should then seek emergency medical care such as 911. [facility] also orders meclizine 25mg PO and also sends over a prescription tot he pharmacy. PT is advised to follow up with pcp regarding loss of appetite and theon going dizziness. [facility] explains are ability in the field to fully work up s/s is limited. PT understands. MI clear. IV_(FLUIDS_AND/OR_MEDICATION), POC_BLOODWORK, ORTHOSTATIC_VITAL_SIGNS, PO_MEDICATION Written by Medical [facility] on 2025-02-27
--- OUTSIDE RECORDS SUMMARY | 2025-03-04 21:31 | XMS_ITS | Patient Health Record ---
Author Organization [facility] Address [address] [place] [address] Care Team Providers Care Beater Machine Operator Name Role Phone Dileep HIGGINS, Curt Primary [...] Insured Coverage Start Date Coverage End Date [facility] [address] [address] [place], [place] [id number] MARCI CHATMAN Self - patient is the insured Medical (General) History Medical History History ICD Code 09-29-2005 egd with balloon dilation 07-17-2004 colon and egd gerd irritable bowel syndrome panic attacks depression anxiety elevated cholesterol chronic pain syndrome nephrolithiasis status post lithotripsy cystitis Surgical History Surgery Date(Month/Year) oophorectomy hysterectomy
--- OUTSIDE RECORDS SUMMARY | 2025-03-04 21:31 | XMS_ITS | Continuity of Care Document ---
Author Organization [facility], [facility] Address [address] [place] [address] Care Team Providers Care Family And Divorce Legal Assistant Name Role Phone HIM CCA OTHER BECKY SPAIN Primary Care Provider [phone] Assessment Encounter Date Assessment Date Assessment LastModified by Organization Details LastModified Time 02/27/2025 02/27/2025 I provided real -time medical direction via phone for this encounter, and was available for additional phone based assistance as needed. I have reviewed and agree with the Assessment and Plan as documented by the Shag Truck Driver. We discussed the diagnostic uncertainty of home visits and the risk associated with this. In this case the patient and I felt this to be an acceptable and reasonable amount of risk given the benefit of avoiding an ED visit, but advised I am uncertain of the etiology of her dizziness. Discussed that it could be due to general deconditioning and her weight loss is a concern and needs further workup beyond the scope of this program, but her current labs do not reveal dehydration nor she orthostatic. The fact that the dizziness is positional, described as spinning and worse with moving her head or getting up could indicate in her ear, so offered to trial meclizine and the patient is aware it could make her drowsy so if it makes her too tired to decrease the dose to twice a day and to stay well-hydrated. We further discussed that cannot rule out a PROPERTY ACCOUNTANT issue and she may need MRI/CT of the brain which we cannot order/ the patient given the opportunity to ask questions. Advised if develops CP/persistant palpitations/kortney re SOB/turning blue/uncontrolled n/v/d or black/bloody emesis or stool/ AMS/ syncope/ hi fever/severe headache, acute speech or vision changes or sudden onset of numbness or focal weakness to call 911-she verbalized understanding of instructions [email or web address] Not available 02/27/2025 20:41:38 Plan of Treatment Reminders Order Date Submit Date Provider Last Modified By Organization Details Last Modified Time Details Appointments None recorded. Lab BMP, serum or plasma 2024 [facility], [address] [place] [address], [id number] 21:12:18 Referral None recorded. Procedures None recorded. Surgeries None recorded. Imaging electrocard iogram 2024 [facility], [address] [place] [address], [id number] 20:45:29 Medication Orders meclizine 25 mg tablet 2024 [email or web address] [facility]/Pharmacy #[id number], [address] [place], [address], 15:39:19 [facility]clizine 25 mg tablet [id number] [address] [place], [address], 15:39:21 Patient TargetsNo targets recorded. Patient InstructionsNo instructions recorded. Reason for Referral None Reported. Results Created Date Observation Date Name Description Value Unit Range Abnormal Flag Note LastModifiedBy Organization Detail LastModifiedTime 02/28/2002/27/2025 elect margareth lakhanigr am No observ ation record ed. [email or web address], [phone] 02/27/2025 21:12:32 Result Notes None recorded. Medical Equipment None Reported. Allergies Allergen ID Allergen Name Allergen Category Reaction Reaction Severity Criticality Documentation Date Start Date Code Code System Note Provider Name and Address Organization Details Recorded Time 8488 Product containin g penicilli n (product) medicatio n Not available Not available Not available 02/14/2024 42875 8001 SNOMED Not Available [facility] - production [...] Not Available Not Available No t Available meclizine 25 mg tablet Take 1 tablet 3 times a day by oral route, for dizziness. 2024 active Not Available Not Available Not Avai lable prednisone 2.5 mg tablet active Not Available [...] Not Available Not Available Vitals Date Recorded Respiratory rate Heart rate Body temperature Body weight Body height Oxygen saturation Oxygen saturation in Arterial blood by Pulse oximetry Systolic And Diastolic Systolic And Diastolic Systolic And Diastolic Provider Name and Address Organization Details Last Updated DateTime 5 16 /min 62 /min 98.8 [degF] 13491.4 4 g 149.86 cm 96 % 96 % 156/78 mm[Hg] 157/81 mm[Hg] 144/75 mm[Hg] Not Available [facility] - production 5 15:05:42 Social History None recorded. Functional Status None recorded. Mental Status None recorded. Family History Nothing Reported. Medical History No medical history recorded. Gynecological HistoryNo gynecological history recorded. Obstetrics History GPAL:G 0 P 0 0 0 0 Past Encounters Encounter ID Performer Location Encounter Start Date Encounter Closed Date Diagnosis/Indication Diagnosis SNOMED-CT Code Diagnosis ICD10 Code Diagnosis IMO Codes Diagnosis Note [id number] Hannah Gibbons MD [facility] ED Medical [facility] [address] [place] [address] 02/27/2025 15:05:38 02/27/2025 21:00:52 Postural dizziness [id number] R42 [id number] stay well hydrated/ no driving while dizzy / change positions slowly-Haseeb l trial meclizine and patient is aware she needs close follow-up with her PCP for further evaluation and testing. Discussed her EKG that is very similar to her EKG from November 2024 but slightly different from her EKG of 01/18/2025. Not concerning enough to go to the ED, but that we cannot do a cardiovasc ular neuro work-up at home and she verbalized understand ing and agrees with the plan Health Concerns Section Related Observation LastModified by Organization Detai ls LastModified Time None Recorded Concern Status LastModified by Organization Details LastModified Time None Recorded Payers Encounter Date Sequence Insurance Name Policy Number Policy Davidson Covered Member ID Davidson Member ID Guarantor Name 02/27/2025 1 [facility] - DOS ON OR AFTER 2022 - DUAL ELIGIBLE - USP OPTIONS AND ONE CARE (MEDICARE REPLACEMENT/ADV ANTAGE - HMO) Celia Madrigal [id number] Celia Madrigal Notes Date Note Type Note Provider Name and Address Organization Details Recorded Time 02/27/2025 text/html ROS as noted in the HPI HPI: Celia called into [facility] stating she has been experiencing dizziness since Tuesday, pretty frequent from waking until bedtime. She has not reported to PCP at this time. she states this dizziness has caused her to want to lie down and sleep a lot and not be able to eat well. She denies being able to take in good oral fluids.Celia denies headache, vision changes, nausea, CP or shortness of breathe. She denies hx of diabetes. Her PMH includes, but not limited to: CHF, CAD and HTN.Bridge Inspector educated Celia on safety precautions, rising slow and sitting back down if feels dizzy or unsafe, Celia verbalized understanding. .................... .................... .................... .................... .................... .................... .................... . CRC Nurse Triage Notes (Chikis Wright): Reason For Request: Dizziness Chief Complaints: Dizziness PMH: Congestive Heart Failure, Coronary Artery Disease, Hypertension PMH Reviewed at 02/27/2025 - :57 Allergies Reviewed at 02/27/2025:57 Comments: HPI reviewed. iSTAT Chem8+ (15:26:48) Na: 141mEq/LK: 3.7mEq/LCl: 102mEq/LiCa: 1.24mmol/LTCO2: 25mmol/LGlu: 88mg/dLBUN: 18mg/dLCrea: 1.1mg/dLHct: 39%Hb: 13.3g/dLAmmol/LCartridge Number: [id number] Attachments uploaded as part of this test result can be found under Documents section. EKG (15:25:47) - This test has been updated by the district manager postal service, Torsten Barclay at (02/27/2025 16:27:01). The changes are marked in bold.EKG test performed. Attachments uploaded as part of this test result can be found under Documents section. .................... .................... .................... .................... .................... .................... .................... . Shag Truck Driver Note From Torsten Barclay: [facility] makes pt contact a 69 yo F cc of dizziness. [facility] obtains vital signs. PT explains for [...] denies chest pain, n/v, sob. no fever is present, no edema. No hx of kidney issues. Allergies to PNC and ASA. [facility] contacts [facility] and explains above mentioned. [facility] orders an istat and an ekg. Lab sample obtained via [employer] butterfly and bandaged appropriately, istat results uploaded. EKG performed and results uplaoded. [facility] advises pt against red flags which include but not limited to sob,chest pain, n,v fever, syncope, ams that she should then seek emergency medical care such as 911. [facility] also orders meclizine 25mg PO and also sends over a prescription tot he pharmacy. PT is advised to follow up with pcp regarding loss of appetite and the on going dizziness. [facility] explains are ability in the field to fully work up s/s is limited. PT understands. [facility] clear. [facility] Lab Orders: BMP, serum or plasma: Performed electrocardiogram: Performed [facility] Medication Orders: meclizine 25 mg tablet: Performed .................... .................... .................... .................... .................... .................... .................... . [facility] Consulted: Hannah Gibbons .................... .................... .................... .................... .................... .................... .................... . Disposition: Fulfilled SEGMD: Patient denies headache, vision changes or vision loss, speech changes, chest pain, palpitations, URI or shortness of breath, fevers, chills unexplained sweats, focal weakness or numbness, nausea, vomiting, diarrhea Hannah Gibbons MD [address] [place] [address],[address] [facility], [place], [address], [employer] 02/27/2025 20:45:06 OBGyn Episode No OBEpisode recorded.
--- OUTSIDE RECORDS SUMMARY | 2025-03-04 21:31 | XMS_ITS | Data Portability ---
Author Organization [facility], [facility] Address [address] [place] [address] Care Team Providers Care Configuration Manager Name Role Phone HIM CCA OTHER BECKY [...] primary team [email or web address] Not available 05/19/2023 19:03:24 02/27/2025 02/27/2025 I provided real -time medical direction via phone for this encounter, and was available for additional phone based assistance as needed. I have reviewed and agree with the Assessment and Plan as documented by the Manager Transfusion. We discussed the diagnostic uncertainty of home [...] further discussed that cannot rule out a METAL HARDENER issue and she may need MRI/CT of the brain which we cannot order/ the patient given the opportunity to ask questions. Advised if develops CP/persistant palpitations/kortney re SOB/turning blue/uncontrolled n/v/d or black/bloody emesis or stool/ AMS/ syncope/ hi fever/severe headache, acute speech or vision changes or sudden onset of numbness or focal weakness to call 911-she verbalized understanding of instructions [email or web address] Not available 02/27/2025 20:41:38 Plan of Treatment Reminders Order Date Submit Date Provider Last Modified By Organization Details Last Modified Time Details Appointments None recorded. Lab BMP, serum or plasma 2024 025 [facility], [address] [place] [address], [phone] 21:12:18 Referral None recorded. Procedures None recorded. Surgeries None recorded. Imaging electrocard iogram 2024 025 [facility], [address] [place] [address], [phone] 5 20:45:29 Medication Orders meclizine 25 mg tablet 2024 025 [email or web address] [facility]/Pharmacy #[id number], [address] [place], [address], 5 15:39:19 meclizine 25 mg tablet 2024 025 [facility]/Pharmacy #[id number], [address] [place], [address], 5 15:39:21 prednisone 20 mg tablet 2023 024 [facility]/Pharmacy #[id number], [address] [place], [address], 4 18:26:49 Patient TargetsNo targets recorded. Patient InstructionsNo instructions recorded. Reason for Referral None Reported. Results Created Date Observation Date Name Description Value Unit Range Abnormal Flag Note LastModifiedBy Organization Detail LastModifiedTime 02/28/20 25 02/27/2025 barrera lakhanigr am No observ ation record ed. [email or web address] [address], [address] 02/27/2025 21:12:32 Result Notes None recorded. Medical Equipment None Reported. Allergies Allergen ID Allergen Name Allergen Category Reaction Reaction Severity Criticality Documentation Date Start Date Code Code System Note Provider Name and Address Organization Details Recorded Time 8488 Product containin g penicilli n (product) medicatio n Not available Not available Not available 02/14/2024 99934 8001 SNOMED Not Available [email or web address] - production 4 03:44:38 8489 aspirin medicatio n Not available Not available Not available 02/14/2024 1191 RxNorm Not Available [email or web address] - production 4 03:44:38 Medications Name Sig [...] % 97 % 142/74 mm[Hg] Not Available [facility] 4 18:02:15 Date Recorded Heart rate Body temperature Respiratory rate Oxygen saturation Oxygen saturation in Arterial blood by Pulse oximetry Systolic And Diastolic Provider Name and Address Organization Details Last Updated DateTime 5 85 /min 98.2 [degF] 16 /min 96 % 96 % 145/70 mm[Hg] Not Available [employer] 5 18:15:34 Date Recorded Respiratory rate Heart rate Body temperature Body weight Body height Oxygen saturation Oxygen saturation in Arterial blood by Pulse oximetry Systolic And Diastolic Systolic And Diastolic Systolic And Diastolic Provider Name and Address Organization Details Last Updated DateTime 5 16 /min 62 /min 98.8 [degF] 04678.4 4 g 149.86 cm 96 % 96 % 156/78 mm[Hg] 157/81 mm[Hg] 144/75 mm[Hg] Not Available [employer] 5 15:05:42 Social History None recorded. Functional Status None recorded. Mental Status None recorded. Family History Nothing Reported. Medical History No medical history recorded. Gynecological HistoryNo gynecological history recorded. Obstetrics History GPAL:G 0 P 0 0 0 0 Past Encounters Encounter ID Performer Location Encounter Start Date Encounter Closed Date Diagnosis/Indication Diagnosis SNOMED-CT Code Diagnosis ICD10 Code Diagnosis IMO Codes Diagnosis Note [id number] Efrain Gomez MD [facility] [address] [place] [phone] 05/19/2023 18:01:49 05/20/2023 11:31:35 Exacerbation of intermittent asthma 252047968 J45.21 [id number] Iris Boo MD Main - [address] [address] 07/23/2024 18:15:24 07/23/2024 19:53:44 Pruritic rash 74887707 L28.2 [id number] 69 year old female being evaluated for a year of intermitte nt pruritic rash. Patient reports having a full body rash that comes and goes, has been seen by mutliple doctors including supervisory training specialist s, and tried multiple antihistam ofe [...] assessment and plan as documented by the floor sander. I provided real-time medical direction for this encounter and was immediatel y available to provide additional phone-base d assistance as needed. We discussed the diagnostic uncertaint y of home visits and associated risks. We discussed the need to seek care urgently/e mergently in the setting of any new or worsening symptoms. [id number] Hannah Gibbons MD [facility] ED Medical [address] [address] 02/27/2025 15:05:38 02/27/2025 21:00:52 Postural dizziness [id number] R42 [id number] stay well hydrated/ no driving while dizzy [...] (MEDICARE REPLACEMENT/ADV ANTAGE - HMO) Celia Madrigal [id number] Celia Madrigal Notes Date Note Type Note [...] cough, sore throat, fever. Member called her it consultant, and she cannot be seen until June. Member requesting home visit. Member advised to call 911 with any worsening symptoms. PMH: includes but not limited to HTN, coronary artery disease, asthma, IBD, GERD, anxiety ..................... ..................... ..................... ..................... ..................... ..................... ............... CRC Nurse Triage Notes (Leonor Vizcaino): Comments: No further information required to process visit. ..................... ..................... ..................... ..................... ..................... ..................... ............... Manager Transfusion Note From Yuri Bedolla: Encountered patient conscious, [...] performed, both resulted negative; results relayed to [facility]. Skin warm, dry and of appropriate color for ethnicity. Head and neck, free of trauma and edema. JVD. Breath sounds diminished in all hopper and exhibit faint expiratory wheezes in the apexes bilaterally. Abdomen soft, non-tender and non-distended. extremities, free of trauma and edema. [facility] contacted: Duoneb treatment administered. 12 lead EKG performed: sinus rhythm with septal T-wave inversion noted. 30 mg of PO prednisone administered. [facility] to write prescription for further treatment at [...] would also like to remain at home. Manager Transfusion Allergies: Penicillin, Aspirin ..................... ..................... ..................... ..................... ..................... ..................... ............... Disposition: Fulfilled Efrain Gomez MD [address] [facility],[address], [place], [address], [employer] 05/19/2023 19:03:41 07/23/2024 text/html CRC Nurse Triage [...] ..................... ..................... ..................... ..................... ..................... ..................... ............... Manager Transfusion Note From Bradford Solorio: This 69-year-old female [...] because of the risks. Patient states the leguillon debeader started her on Dupixent injections every two weeks. Patient has had two injections in the leguillon debeader states that this could take two to three months before it starts working. Patient states she went to [facility] over the weekend and was prescribed [...] her PCP on Tuesday and involve the leguillon debeader if necessary. I instructed her to present to the emergency department for any new or worsening severe symptoms such as chest pain, shortness of breath, dysphagia, high fever, altered mental status. The patient was given the opportunity to ask questions and is agreeable to this plan. ..................... ..................... ..................... ..................... ..................... ..................... ............... [facility] Consulted: Iris Boo ..................... ..................... ..................... ..................... ..................... ..................... ............... Disposition: Luann Iris Boo MD [address] [place] [address],[address], [place], [address], [employer] 07/23/2024 19:23:45 02/27/2025 text/html ROS as noted in the [...] but not limited to: CHF, CAD and HTN.Dairy Nutritionist educated Celia on safety precautions, rising slow and sitting back down if feels dizzy or unsafe, Celia verbalized understanding. ..................... ..................... ..................... ..................... ..................... ..................... ............... CRC Nurse Triage Notes (Chikis Wright): Reason For Request: Dizziness Chief Complaints: Dizziness PMH: Congestive Heart Failure, Coronary Artery Disease, Hypertension PMH Reviewed at 02/27/2025 - :57 Allergies Reviewed at 02/27/2025 - :57 Comments: HPI reviewed. iSTAT Chem8+ (15:26:48) Na: 141mEq/LK: 3.7mEq/LCl: 102mEq/LiCa: 1.24mmol/LTCO2: 25mmol/LGlu: 88mg/dLBUN: 18mg/dLCrea: 1.1mg/dLHct: 39%Hb: 13.3g/dLAmmol/LCartridge Number: [id number] Attachments uploaded as part of this test result can be found under Documents section. EKG (15:25:47) - This test has been updated by the floor sander, Torsten Barclay at (02/27/2025 16:27:01). The changes are marked in bold.EKG test performed. Attachments uploaded as part of this test result can be found under Documents section. ..................... ..................... ..................... ..................... ..................... ..................... ............... Manager Transfusion Note From Torsten Barclay: [facility] makes pt contact a 69 yo F cc of dizziness. [facility] obtains vital signs. PT explains for [...] kidney issues. Allergies to PNC and ASA. [facility] contacts [facility] and explains above mentioned. [facility] orders an istat and an ekg. Lab sample obtained via [employer] butterfly and bandaged appropriately, istat results uploaded. EKG performed and results uplaoded. [facility] advises pt against red flags which include but not limited to sob,chest pain, n,v fever, syncope, ams that she should then seek emergency medical care such as 911. [facility] also orders meclizine 25mg PO and also sends over a prescription tot pharmacy. PT is advised to follow up with pcp regarding loss of appetite and the on going dizziness. [facility] explains are ability in the field to fully work up s/s is limited. PT understands. [facility] clear. [facility] Lab Orders: BMP, serum or plasma: Performed electrocardiogram: Performed [facility] Medication Orders: meclizine 25 mg tablet: Performed ..................... ..................... ..................... ..................... ..................... ..................... ............... [facility] Consulted: Hannah Gibbons ..................... ..................... ..................... ..................... ..................... ..................... ............... Disposition: Fulfilled SEGMD: Patient denies headache, vision changes or vision loss, speech changes, chest pain, palpitations, URI or shortness of breath, fevers, chills unexplained sweats, focal weakness or numbness, nausea, vomiting, diarrhea Hannah Gbibons MD [address] [place] [address],[address], [place], [address], [employer] 02/27/2025 20:45:06 OBGyn Episode No OBEpisode recorded.
== END 2025-03-04 11:03 | disposition home or self-care (01) ==
LOC: HO.HCC 10:26
PROVIDERS: PCP Internal Medicine; Visit Provider Internal Medicine
DX: F11.20 Opioid dependence, uncomplicated (principal)
CPT/HCPCS: 99213

== ENCOUNTER → 2025-03-04 10:25 | Outpatient (BNVA) | payer OTHER, SELFPAY | PROVIDERS: PCP Internal Medicine; Visit Provider Internal Medicine | DX: F11.20 Opioid dependence, uncomplicated (principal) | CPT/HCPCS: 99212 ==

== ENCOUNTER 2025-03-08 09:33 | Outpatient (AMB) | payer OTHER, SELFPAY ==
--- OUTSIDE RECORDS SUMMARY | 2023-11-17 04:45 | XMS_ITS | Continuity of Care Document ---
Author Organization [facility] Address [address] [place] [address] Phone Care Team Providers Care Selling Manager Name Role Phone Leonro Yousif DMD Unavailable U navailable Procedures Procedure Date Intraoral-Periapical First Film 024 Intraoral-Periapical Each Additional Sandoval m Intraoral-Periapical Each Additional Sandoval m Intraoral-Periapical Each Additional Sandoval m Intraoral-Periapical Each Additional Sandoval m Intraoral-Periapical Each Additional Sandoval m Intraoral-Periapical Each Additional Sandoval m Intraoral-Periapical Each Additional Sandoval m Comprehensive Oral Evaluation - New Or E st Pt Tobacco Counseling For The Control And P revention Dental case management motivational interviewing Caries risk assessment & documentation, high risk Nutritional Counseling For Control Of De ntal Disea Self-Mangement Goal Set Advance Directives Directive Yes / No Effective Date File Name No Information Encounters Encounter Description Practice Location Reason(s) For Visit Diagnoses Date Provider Providers Copied on Encounter [facility], [address], [place], [id number], [place] tel:[phone] [facility] Encounter for dental examination and cleaning with abnormal findingsTobacco abuse counselingOther specified counselingRisk for dental caries, highDietary counseling and surveillance David Galvez. [address], [place], [id number], . tel:[phone] Family History Family Member Type Diagnosis Age At Onset No Information Payers Payer name Insurance type Covered libertarian ID Omid otero(s) Dental Med[facility] OP [id number] DENTICAL [id number] Social History Type Description Quantity Date Captured Comments Sex Female Smoking Status No Information Sexual Orientation Straight or heterosexual Gender Identity Female Vital Signs Date / Time: Height Weight BMI Pulse Rate Blood Pressure Temperature Respiratory Rate Body Surface Area Head Circumference Head Circ. Percentile Wt./Neeraj. Percentile BMI percentile Pulse Ox Inhaled Ox 9:44 AM 56 /min 173/82 mm[Hg] 9:46 AM 54 /min 178/97 mm[Hg] Chief Complaint And Reason For Visit No Information Reason For Referral Reason For Referral No Information Plan Of Treatment Date Type Action Status Patient Education [facility] dental: [facility] en espa o l completed History Of Present Illness Encounter Date Complaint History Of Prese nt Illness No Information Functional Status Date Functional Assessmen t Pain Score 0/10 Pain Score 0/10 Instructions Date Instruction Additional Infor mation No Information Assessments Type Assessment Date assessment Encounter for dental examination and cleaning with abnormal findings assessment Tobacco abuse counseling 2023 assessment Other specified counseling Nov- assessment Risk for dental caries, high Nov assessment Dietary counseling and surveilla nce Patient Care Teams Name Effective Dates (start - stop) Status Members No Information
--- NOTE | 2025-03-08 09:44 | A.OFFPC_ITS ---
Vital Signs 03/08/25 09:45 Height 4 ft 11 in Weight 196 lb 4 oz BMI 39.6 BP 110/72 Blood Pressure Location Lt brachial Position Sitting Pulse 71 Pulse Source Pulse Oximeter Pulse Oximetry (%) 95 Oxygen Delivery Method Room Air Intake Visit Reasons: dizziness, lack of appetite, weight loss Leaflet Or Newspaper Deliverer Required: No Accompanied by: Self / Same As Patient Allergies Penicillins (PENICILLINS) Allergy (Intermediate, Verified 03/08/25 10:00) RASH Medication List - Last Reconciled 03/08/25 by Curt Falk MD acetaminophen 650 mg (2 x 325 mg) PO Q6H PRN 30 days [ADULT PULL-UPS As directed] [ADULT PULL-UPS As directed] albuterol sulfate 2.5 mg (3 mL) continuous nebulization Q6H PRN 30 days albuterol sulfate 90 mcg/actuation 2 inhalations inhalation Q6H PRN 30 days albuterol-budesonide 90-80 mcg/actuation (Airsupra) 2 inhalations inhalation BID PRN atorvastatin 10 mg PO BEDTIME 90 days blood pressure kit-extra large As directed buprenorphine HCl 2 mg sublingual BID 7 days buprenorphine-naloxone 2-0.5 mg (Suboxone) 1 film sublingual DAILY 30 days buprenorphine-naloxone 8-2 mg (Suboxone) 1 film sublingual BID 30 days escitalopram oxalate 20 mg PO DAILY 90 days ezetimibe 10 mg PO DAILY fluticasone propion-salmeterol 115-21 mcg/actuation (Advair HFA) 2 puffs inhalation Q12H 30 days furosemide (Lasix) 20 mg PO DAILY 5 days gabapentin 100 mg PO TID ibuprofen 600 mg PO Q8H PRN lorazepam mg PO BID PRN methocarbamol 750 mg PO QID naloxone 4 mg/actuation (Narcan) 4 mg intranasal Q3M PRN naproxen 500 mg PO BID [NEBULIZER and all related supplies As directed] omeprazole 40 mg PO DAILY 90 days polyethylene glycol 3350 (Miralax) 17 grams PO ONCE PRN [Pure Wick External Catheters -Urine Collection System As directed Pure Wick External Catheters -Urine Collection System] [PureWick As directed] trazodone 100 mg PO BEDTIME PRN [wipes As directed] Tobacco use date assessed: 03/08/25 Fall risk assessment: No Falls in past year Last assessed Fall Risk: 03/08/25 Dental Screening Dental Screen Date: 03/08/25 Did you have a dental visit in the last 12 months?: No Did you have a dental problem in the last 6 months where you did not have access to dental care?: No Was dental information given to patient?: No HPI dizziness, lack of appetite, weight loss HPI Details - The patient is a 69-year-old individua l presenting for follow-up on multiple health concerns. - Previous complaints of dyspnea and faiza st pressure have been evaluated with a normal cardiac ultrasound and stress test, with symptoms attributed to weight. - For the past two weeks, the patient ruiz s experienced new symptoms of dizziness described as a spinning sensation in the head and excessive sleepiness, occurring day and night. - This has been accompanied by a weight loss of approximately 20 pounds and low blood pressure. - The patient reports pruritus on the ruzi nds and recently received an allergy injection. - Patient-reported trials of hydroxyzine and Benadryl for the itching were ineffective. - The patient reports taking trazodone 1 00 mg for sleep and notes hand pain every morning after taking it, which does not occur when the dose is skipped but will now need something else to help with her insomnia if she is no longer able to continue taking Trazodone for sleep - The patient also takes gabapentin and sometimes forgoes prazosin at night due to sleepiness. - Recent lab results show a Hemoglobin A 1c of 5.8%, an increase from previous values of 5.4 and 5.6, leading to a new diagnosis of prediabetes, which is thought to be related to prednisone use. - Triglyceride levels have improved, dec reasing from over 200 to 155 mg/dL. She denies any headaches No nausea/vomiting, no abdominal pain No change in bowel habits noted She had her follow-up labs done last week - to discuss her results HPI Comments History of Present Illness Details Chief Complaint The patient presents with a two-week history of a spinning sensation in the head, excessive sleepiness, and significant weight loss. History of Present Illness - The patient is a 69-year-old individua l presenting for follow-up on multiple health concerns. - Previous complaints of dyspnea and faiza st pressure have been evaluated with a normal cardiac ultrasound and stress test, with symptoms attributed to weight. - For the past two weeks, the patient ruiz s experienced new symptoms of dizziness described as a spinning sensation in the head and excessive sleepiness, occurring day and night. - This has been accompanied by a weight loss of approximately 20 pounds and low blood pressure. - The patient reports pruritus on the ruiz nds and recently received an allergy injection. - Patient-reported trials of hydroxyzine and Benadryl for the itching were ineffective. - The patient reports taking trazodone 1 00 mg for sleep and notes hand pain every morning after taking it, which does not occur when the dose is skipped. - The patient also takes gabapentin and sometimes forgoes prazosin at night due to sleepiness. - Recent lab results show a Hemoglobin A 1c of 5.8%, an increase from previous values of 5.4 and 5.6, leading to a new diagnosis of prediabetes, which is thought to be related to prednisone use. - Triglyceride levels have improved, dec reasing from over 200 to 155 mg/dL. Social History - Weight Management: The patient reports a significant, recent weight loss of about 20 pounds. Results - Labs: - Hemoglobin A1c: 5.8% (previously 5.4% and 5.6%). - Triglycerides: 155 mg/dL (decreased fr om >200 mg/dL). - Cholesterol: Levels are lower. - Tests and Diagnostics: - Cardiac ultrasound: Normal. - Cardiac stress test: Normal. [facility] Medical History (Updated 03/10/25 @ 18:28 by Curt Falk MD) Arthralgia Opioid use disorder Abdominal pain Depression Anxiety Insomnia Myalgia, upper arm Osteoarthritis of right knee Lumbar spondylosis Foot pain, bilateral BRIDGETTE (obstructive sleep apnea) Asthma KAMILA positive Urticaria Obesity (BMI 30-39.9) Vitamin D deficiency Chronic interstitial cystitis Irritable bowel syndrome (IBS) Osteoarthritis Esophageal stricture GERD (gastroesophageal reflux disease) Left lumbar radiculopathy CAD (coronary artery disease) Pure hypercholesterolemia Benign essential hypertension Surgical History History of surgery History of total right knee replacement (09/22/21) Hx of cystoscopy Status post balloon dilatation of esophageal stricture (~2005) History of cardiac catheterization History of colonoscopy History of nephrolithotomy with removal of calculi History of tooth extraction Family History Father Hypertension Mother Hypertension Diabetes CVD (cardiovascular disease) Daughter No problems noted. Family/Other FH: mental illness Other Mental health problem Substance abuse Social History Housing: Apartment Are you a primary auto care center manager to a significant other at home: No Do you presently have visiting nurse or other home services: No Alcohol intake: never Comment: medicated, see MAR Patient Tobacco Use Status: Never used Tobacco e-Cigarette/Vaping Use: Never Used Second Hand Smoke Exposure: No service: No Current occupational status: disabled Cognitive needs: No Hearing needs: No Vision needs: Yes (Glasses) Questionnaire PHQ-9 Over the last 2 weeks, how often have you been bothered by any of the following problems? 1. Little interest or pleasure in doing things: not at all 2. Feeling down, depressed, or hopeless: not at all 3. Trouble falling or staying asleep, or sleeping too much: not at all 4. Feeling tired or having little energy: not at all 5. Poor appetite or overeating: not at all 6. Feeling bad about yourself - or that you are a failure or have let yourself or your family down: not at all 7. Trouble concentrating on things, such as reading the newspaper or watching television: not at all 8. Moving or speaking so slowly that other people could have noticed. Or the opposite - being so fidgety or restless that you have been moving around a lot more than usual: not at all 9. Thoughts that you would be better off or of hurting yourself in some way: not at all Total score: 0 Depression Screening Interpretation: Negative Depression Screening Done: Yes 46795 - PHQ-9 Billing: Yes Source: Developed by Drs. Jorge Diallo, Yumiko Irvin, Celestino Banda and colleagues, with an educational mari from [employer]. Thrive Questionnaire Date Thrive assessed: 03/08/25 I am a: Patient What is your living situation today?: I choose not to answer this question Within the past 12 months, did the food you bought not last and you didn't have the money to get more?: I choose not to answer this question Within the past 12 months, did you worry whether your food would run out before you got money to buy more?: I choose not to answer this question Do you have trouble paying for medicines?: I choose not to answer this question Do you have trouble getting transportation to medical appointments?: I choose not to answer this question Do you have trouble paying your heating and electricity bill?: I choose not to answer this question Do you have trouble taking care of your child, family member or friend?: I choose not to answer this question Do you have trouble with day-to-day activities such as bathing, preparing meals, shopping, managing finances, etc.?: I choose not to answer this question Are you currently unemployed and looking for a job?: I choose not to answer this question Are you interested in more education?: I choose not to answer this question Please select the resources that you would like help with: None Currently or been in a relationship where the following occur: I choose not to answer THRIVE Score: 0 AUDIT C Alcohol Use Questionnaire (AUDIT-C) 1. How often do you have a drink containing alcohol?: Never 3. How often do you have six or more drinks on one occasion?: Never Total Score: 0 Score Reviewed/Action Taken: Yes ADRIANA-7 AMB Questionnaire ADRIANA-7 Date ADRIANA - 7 assessed: 03/08/25 Feeling nervous, anxious, or on edge: 0 = Not at all Not being able to stop or control worryin = Not at all Worrying too much about different things: 0 = Not at all Trouble relaxin = Not at all Being so restless that it is hard to sit still: 0 = Not at all Becoming easily annoyed or irritable: 0 = Not at all Feeling afraid as if something awful might happen: 0 = Not at all Total ADRIANA-7 score (0-4 normal; 5-9 mild; 10-14 moderate; 15-21 severe): 0 Source: Developed by Drs. Jorge Diallo, Yumiko Irvin, Celestino Banda and colleagues, with an educational mari from [employer]. Review of Systems Narrative Review of Systems - Constitutional: Reports significant weight loss, fatigue, and excessive daytime somnolence. - Neurological: Reports dizziness described as the head spinning. - Integumentary: Reports hand pruritus. - Musculoskeletal: Reports pain in the hands in the morning. - Gastrointestinal: Denies stomach pain. - Psychiatric: Reports sleeping well at night and sometimes feeling too sleepy to require sleep aids. Const Denies chills, Reports difficulty sleeping, Reports fatigue (increased), Denies fever(s) and Denies headache(s) ENT Denies dysphagia, Denies dizziness, Denies otalgia, Denies headache(s), Denies neck pain, Denies odynophagia and Denies sore throat Card Reports chest pain (recurrent), Denies palpitations and Reports dyspnea (on and off lately, especially with exertion - see HPI) Resp Denies chest congestion, Denies cough, Reports dyspnea (on and off lately, especially with exertion - see HPI) and Denies wheezing GI Denies abdominal pain, Denies constipation, Denies dysphagia, Reports heartburn (frequent lately), Denies diarrhea, Denies nausea, Denies odynophagia and Denies vomiting Denies difficulty voiding, Reports nocturia, Reports dysuria (on and off - has chronic IC - symptoms have improved slightly with Botox), Reports urinary incontinence (at times) and Reports urinary urgency (at times) Musc Details: recurrent bilateral inguinal pain and associated bilateral lower extremity p ain/weakness Reports back pain (over the right lower back), Reports arthralgias (involving multiple joints - right knee and hip and right shoulder), Denies neck pain and Reports radiating pain into limb (into the right thigh and leg; right shoulder pain going into neck/arm) Skin/Breast Details: (+) scattered itchy rash all over Reports pruritus Neuro Denies dizziness and Denies headache(s) Psych Reports anxiety Endo Reports fatigue (increased) and Denies palpitations Aller/Immun Denies wheezing Physical exam (Primary Care) Vital Signs: Last Vital Signs Pulse 71 03/08/25 09:45 BP 110/72 03/08/25 09:45 Pulse Ox 95 03/08/25 09:45 Oxygen Delivery Method Room Air 03/08/25 09:45 BMI result Body Mass Index 39.6 Tobacco/Smoking Status: Tobacco use Status Tobacco use date assessed 03/08/25 03/08/25 09:46 Patient Tobacco Use Status Never used Tobacco 03/08/25 09:46 Tobacco use type 07/26/23 14:03 e-Cigarette/Vaping Use Never Used 03/08/25 09:46 PHQ-9: PHQ-9 Score PHQ-9: Total score 0 03/08/25 10:05 Depression Screening Interpretation: Negative Thrive Assessment: Date of Thrive Assessment Date Thrive assessed 03/08/25 03/08/25 09:51 Currently or been in a relationship where the following occur: I choose not to answer Narrative Physical Exam - Vitals: Blood pressure noted to be low. Const General: no acute distress and alert HENMT Throat: Yes posterior oropharynx normal and Yes tonsils normal (no TP congestion noted) Neck Neck: Yes supple and No lymphadenopathy Thyroid: Thyroid normal Resp Auscultation: clear to auscultation bilaterally, no rales and no wheezes Cardio Rate: regular rate Rhythm: regular rhythm Heart sounds: no murmurs GI Palpation (GI): Soft to palpation and nontender Auscultation: normal bowel sounds General: Yes no CVA tenderness Back/Spine/Pelvis Back: no CVA tenderness Thoracic/Lumbar Spine: paraspinal muscle tenderness on the right and lumbar spinal tenderness (chronic) Skin Other: (+) scattered erythematous pruritic papular rash all over Extrem General: Yes no clubbing, cyanosis or edema Right upper extremity: shoulder/upper arm Details: tenderness Location: of the A-C joint and abnormal ROM (ROM limited due to pain - unable to raise right arm above shoulder level) Right lower extremity: hip/thigh Details: tenderness Location: of the hip Location: anteriorly and knee Details: tenderness; no swelling Left lower extremity: hip/thigh Details: tenderness Location: of the hip Location: anteriorly and knee Details: tenderness; no swelling Results Reviewed Results Reviewed: Laboratory Tests 01/28/25 01/28/25 12:08 Unknown WBC 6.7 Hgb 11.4 L Hct 37.3 Plt Count 231 ESR 25 H Sodium 144 Potassium 4.1 Creatinine 0.87 Estimated GFR > 60 Fasting Glucose 94 Hemoglobin A1c % 5.9 Calcium 9.4 AST 26 ALT 16 Triglycerides 155 H Cholesterol 143 LDL Cholesterol, Calc 75 HDL Cholesterol 37 L TSH 1.59 Ur Specific [place] 1.020 Urine Protein Trace Urine Glucose (UA) Negative Urine Blood Negative Urine Nitrite Negative Ur Leukocyte Esterase Moderate (2+) H Rheumatoid Factor < 13.0 KAMILA Screen NEGATIVE Coding Level of Care Code Est Pt Level 4 (93613) Diagnoses Pure hypercholesterolemia E78.00 Bilateral hip pain M25.551; M25.552 Bilateral leg weakness R29.898 Urticarial rash L50.9 Exertional dyspnea R06.09 Moderate persistent asthma without complication J45.40 Asthma complication type: uncomplicated Asthma persistence: persistent Asthma severity: moderate Gastroesophageal reflux disease without esophagitis K21.9 Esophagitis presence: without esophagitis Fatigue, unspecified type R53.83 Fatigue type: unspecified Insomnia, unspecified type G47.00 Insomnia type: unspecified Anxiety F41.9 Episode of recurrent major depressive disorder, unspecified depression episode severity F33.9 Active/Remission status: currently active Depression Type: major depressive disorder Major depression episode severity: unspecified Major depression recurrence: recurrent Obesity (BMI 30-39.9) E66.9 Additional Codes PHQ-9 - 07936 - PHQ-9 Billing: Yes ([id number]) Assessment & Plan Assessment & Plan (1) Pure hypercholesterolemia: Code(s): E78.00 - Pure hypercholesterolemia, unspecified Category: Medical Plan: Results of her labs done last week reviewed and discussed with patient Reinforce low-cholesterol diet Continue Atorvastatin 10 mg QD and Ezetimibe 10 mg QD Will recheck her labs and fasting lipids in a few months for follow-up (2) Bilateral hip pain: Code(s): M25.551 - Pain in right hip; M25.552 - Pain in left hip Category: Medical Plan: Repeat x-rays of both hips done back in August 2024 revealed (+) mild osteoar throsis in both coxofemoral joints but no gross changes overall from previous imaging studies X-rays of the right hip done back in 2021 revealed (+) moderate arthritis changes in the right hip Follow up with orthopedics as scheduled (3) Bilateral leg weakness: Code(s): R29.898 - Other symptoms and signs involving the musculoskeletal system Category: Medical Plan: Have advised patient that her recent bilateral leg weakness is likely related to her hip pathology / arthritis She is advised that physical therapy may help her but we should wait to see what orthopedics would recommend in this case (4) Urticarial rash: Code(s): L50.9 - Urticaria, unspecified Category: Medical Plan: Patient has been breaking out repeatedly in an itchy rash all over for the past couple of years now and she feels that this is getting worse lately She has been referred again to allergy/immunology for further evaluation and management and will be seeing them next Tuesday She is asking for Rx for oral Prednisone at least for the next 3 days to help her with her symptoms until she is seen by her concrete carpenter (5) Exertional dyspnea: Code(s): R06.09 - Other forms of dyspnea Category: Medical Plan: She is currently following up with pulmonary at [place] Echocardiogram done last month (January 2025) came out normal - the left ventricular systolic function is normal. The visually estimated ejection fraction is between 60-65%. No obvious valvular pathology seen on this study (6) Asthma: Code(s): J45.909 - Unspecified asthma, uncomplicated Category: Medical Qualifiers: Asthma complication type: uncomplicated Asthma persistence: persistent Asthma severity: moderate Qualified Code(s): J45.40 - Moderate persistent asthma, uncomplicated Plan: Controlled Continue Dupixent 200 mg SQ every 2 weeks, Breo Ellipta 200-25 mcg 1 inhalation QD, Montelukast 10 mg QD and Albuterol HFA 2 inhalations every 6 hours as needed Dupixent seems to be helping with patient's asthma but she feels that this is not helping with her pruritic rash at all Follow-up with pulmonary as scheduled (7) GERD (gastroesophageal reflux disease): Code(s): K21.9 - Gastro-esophageal reflux disease without esophagitis Category: Medical Qualifiers: Esophagitis presence: without esophagitis Qualified Code(s): K21.9 - Gastro-esophageal reflux disease without esophagitis Plan: Dietary restrictions reinforced Continue Omeprazole 40 mg QD (8) Fatigue: Code(s): R53.83 - Other fatigue Category: Medical Qualifiers: Fatigue type: unspecified Qualified Code(s): R53.83 - Other fatigue Plan: Due to her persistent increased fatigue and daytime somnolence, will refer her to Sleep Medicine for further evaluation to be complete (9) Insomnia: Code(s): G47.00 - Insomnia, unspecified Category: Medical Qualifiers: Insomnia type: unspecified Qualified Code(s): G47.00 - Insomnia, unspecified Plan: Sleep hygiene reinforced Will start her on a trial of Doxepin 10 mg Q HS PRN (10) Anxiety: Code(s): F41.9 - Anxiety disorder, unspecified Category: Medical Plan: Continue Clonazepam 1 mg 3 times a day as needed and Bupropion ER 200 mg QD in AM (11) Depression: Code(s): F32.9 - Major depressive disorder, single episode, unspecified Category: Medical Qualifiers: Active/Remission status: currently active Depression Type: major depressive disorder Major depression episode severity: unspecified Major depression recurrence: recurrent Qualified Code(s): F33.9 - Major depressive disorder, recurrent, unspecified Plan: Continue Quetiapine 200 mg Q HS; is also on Bupropion ER 200 mg QD Follow-up with Psychiatry as scheduled (12) Obesity (BMI 30-39.9): Code(s): E66.9 - Obesity, unspecified Category: Medical Plan: Reinforced diet; exercise and weight loss may be unrealistic and limited due to her physical issues but she is advised to try to stay as active as she can Plan Plan Patient was informed and verbally consented to the use of an ambient scribe for clinic note documentation during this visit. 1. Dizziness And Excessive Daytime Somnolence - The patient's dizziness and somnolence are being investigated further, as recent cardiac workup was normal. - A referral will be placed for a sleep medicine specialist to evaluate for an underlying sleep disorder, which may or may not lead to a sleep study. - Medications, particularly gabapentin, were noted as a potential contributor to sleepiness. 2. Adverse Effect Of Trazodone - The patient reports hand pain in the morning that correlates with taking trazodone the night before. - Trazodone will be discontinued. - A new medication will be prescribed for bedtime, to be taken only as needed for sleep. 3. Prediabetes - The patient has a new diagnosis of prediabetes based on a Hemoglobin A1c of 5.8%. - This is likely secondary to frequent prednisone use for allergies. - The patient was counseled that if A1c levels continue to rise, medication for diabetes may be necessary. 4. Pruritus - The patient presents with itching on the hands, which has not responded to trials of hydroxyzine or Benadryl. - A short course of prednisone will be prescribed for use over the weekend until the patient's next allergy appointment on Tuesday. 5. Hypertriglyceridemia - Triglyceride levels have shown improvement, now at 155 mg/dL, and this is linked to better sugar control. - The patient is encouraged to continue working on diet and sugar management to further improve cholesterol and triglyceride levels. 6. Follow-Up And Health Maintenance - Repeat labs will be ordered for April. - The patient will cancel an existing appointment for April 15 and reschedule for mid-April to review the new lab results. Discussion Notes I discussed with the patient that the recent cardiac workup, including an ultrasound and stress test, was normal, ruling out a cardiac cause for prior symptoms of chest pressure and shortness of breath. We reviewed the new onset of dizziness and excessive sleepiness, and I explained the plan to refer to a sleep specialist for further evaluation. I informed the patient that the hand pain is likely a side effect of trazodone, and we agreed to discontinue it. I have prescribed a new medication for sleep to be used only as needed. I notified the patient of the new diagnosis of prediabetes, as evidenced by a hemoglobin A1c of 5.8%. I explained that this is likely related to repeated use of prednisone and that if the A1c continues to rise, medication for diabetes will be necessary. I agreed to prescribe a short course of prednisone for the patient's current pruritus but reiterated the risk of elevating blood sugar. We discussed the improvement in triglyceride levels and the importance of continued sugar control. Finally, we arranged for follow-up labs to be done in April, and the patient will reschedule the next office visit for to review the results. Patient Instructions - Stop taking Trazodone. - A new medication has been prescribed for sleep; take it at bedtime only when you need it. - Take the prescribed prednisone for your itching for a few days over the weekend. This medicine can raise your blood sugar. - You have been newly diagnosed with prediabetes, which means your blood sugar is high. This is likely due to taking prednisone. If your blood sugar continues to rise, you may need to start diabetes medication in the future. - A referral will be sent to a sleep specialist to evaluate your dizziness and sleepiness. Their office will call you to schedule an appointment. - Please cancel your appointment scheduled for April 15. - Please get new lab work done in early April. - Schedule a follow-up appointment for to review your lab results. Orders: Referrals Sleep Medicine Referral R40.0 - Somnolence, R53.83 - Other fatigue Medications: New doxepin 10 mg PO BEDTIME PRN 30 caps 1RF anxiety/sleep 30 days prednisone 20 mg PO DAILY 5 tabs 0RF 5 days
[2025-03-08 09:45] VITALS: BP 110/72; PULSE 71; O2SAT 95; BMI 39.6
--- OUTSIDE RECORDS SUMMARY | 2025-03-08 10:08 | XMS_ITS | Data Portability ---
Author Organization [facility], [place] [employer] [facility] Address [address] [place] [address] Care Team Providers Care Pitch Filler Name Role Phone HIM CCA OTHER BECKY SPAIN Primary Care Provider [phone] Assessment Encounter Date Assessment Date Assessment LastModified [...] Assessment and Plan as documented by the Blast Furnace Tender. We discussed the diagnostic uncertainty of home [...] further discussed that cannot rule out a FINE JEWELRY SALES ASSOCIATE issue and she may need MRI/CT of the brain which we cannot order/ the patient given the opportunity to ask questions. Advised if develops CP/persistant palpitations/kortney re SOB/turning blue/uncontrolled n/v/d or black/bloody emesis or stool/ AMS/ syncope/ hi fever/severe headache, acute speech or vision changes or sudden onset of numbness or focal weakness to call 911-she verbalized understanding of instructions [email or web address] Not available 02/27/2025 20:41:38 Plan of Treatment Reminders Order Date Submit Date Provider Last Modified By Organization Details Last Modified Time Details Appointments None recorded. Lab BMP, serum or plasma 2024 025 [facility], [address] [place] [address], [phone] 21:12:18 Referral None recorded. Procedures None recorded. Surgeries None recorded. Imaging electrocard iogram 2024 025 [facility], [address] [place] [address], [phone] 5 20:45:29 Medication Orders meclizine 25 mg tablet 2024 025 [email or web address] [facility] #[id number], [address] [place], [address], 5 15:39:19 meclizine 25 mg tablet [address] [facility]/Pharmacy #[id number], [address] [place], [address], 5 15:39:21 prednisone [address] [facility]/Pharmacy #[id number], [address] [place], [address], 4 18:26:49 Patient TargetsNo targets recorded. Patient InstructionsNo instructions recorded. Reason for Referral None Reported. Results Created Date Observation Date Name Description Value Unit Range Abnormal Flag Note LastModifiedBy Organization Detail LastModifiedTime 02/28/20 25 02/27/2025 barrera lakhanigr am No observ ation record ed. [facility] [address], [address] 02/27/2025 21:12:32 Result Notes None recorded. Medical Equipment None Reported. Allergies Allergen ID Allergen Name Allergen Category Reaction Reaction Severity Criticality Documentation Date Start Date Code Code System Note Provider Name and Address Organization Details Recorded Time 8488 Product containin g penicilli n (product) medicatio n Not available Not available Not available 02/14/2024 53008 8001 SNOMED Not Available Powered [facility] - production 4 03:44:38 8489 aspirin medicatio n Not available Not available Not available 02/14/2024 1191 RxNorm Not Available Powered [facility] - production 4 03:44:38 Medications Name Sig [...] rate Body temperature Respiratory rate Oxygen saturation Systolic And Diastolic Provider Name and Address Organization Details Last Updated DateTime 4 93 /min 98.1 [degF] 20 /min 97 % 142/74 mm[Hg] Not Available [facility] - production 4 18:02:15 Date Recorded Heart rate Body temperature Respiratory rate Oxygen saturation Systolic And Diastolic Provider Name and Address Organization Details Last Updated DateTime 5 85 /min 98.2 [degF] 16 /min 96 % 145/70 mm[Hg] Not Available Powered [facility] - production 5 18:15:34 Date Recorded Respiratory rate Heart rate Body temperature Body weight Body height Oxygen saturation Systolic And Diastolic Systolic And Diastolic Systolic And Diastolic Provider Name and Address Organization Details Last Updated DateTime 5 16 /min 62 /min 98.8 [degF] 73981.4 4 g 149.86 cm 96 % 156/78 mm[Hg] 157/81 mm[Hg] 144/75 mm[Hg] Not Available Powered [facility] - production 5 15:05:42 Social History None [...] ICD10 Code Diagnosis IMO Codes Diagnosis Note [id number] Efrain Gomez MD Main - [facility] [address] [place] [phone] 05/19/2023 18:01:49 05/20/2023 11:31:35 Exacerbation of intermittent asthma [id number] J45.21 [id number] Iris Boo MD Main - [facility] [address] [place] [phone] 07/23/2024 18:15:24 07/23/2024 19:53:44 Pruritic rash [id number] L28.2 [id number] 69 year old female being evaluated for a year of intermitte nt pruritic rash. Patient reports having a full body rash that comes and goes, has been seen by mutliple doctors including tooling specialist s, and tried multiple antihistam ofe [...] assessment and plan as documented by the it consulting director. I provided real-time medical direction for this encounter and was immediatel y available to provide additional phone-base d assistance as needed. We discussed the diagnostic uncertaint y of home visits and associated risks. We discussed the need to seek care urgently/e mergently in the setting of any new or worsening symptoms. [id number] Hannah Gibbons MD [facility] ED Medical [address] [phone] 02/27/2025 15:05:38 02/27/2025 21:00:52 Postural dizziness [id number] R42 [id number] stay well hydrated/ no driving while dizzy [...] Davidson Member ID Guarantor Name 02/27/2025 1 [facility] - DOS ON OR AFTER 2022 - DUAL ELIGIBLE - [facility] OPTIONS AND ONE CARE (MEDICARE REPLACEMENT/ADV ANTAGE - HMO) Celia Madrigal [id number] Celia Madrigal Notes Date Note Type Note [...] cough, sore throat, fever. 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 Member requesting home visit. Member advised to call 911 with any worsening symptoms. PMH: includes but not limited to HTN, coronary artery disease, asthma, IBD, GERD, anxiety ..................... ..................... ..................... ..................... ..................... ..................... ............... CRC Nurse Triage Notes (Leonor Vizcaino): Comments: No further information required to process visit. ..................... ..................... ..................... ..................... ..................... ..................... ............... Blast Furnace Tender Note From Yuri Bedolla: Encountered patient [...] performed, both resulted negative; results relayed to [facility]. Skin warm, dry and of appropriate color for ethnicity. Head and neck, free of trauma and edema. JVD. Breath sounds diminished in all hopper and exhibit faint expiratory wheezes in the apexes bilaterally. Abdomen soft, non-tender and non-distended. extremities, free of trauma and edema. [facility] contacted: Duoneb treatment administered. 12 lead EKG performed: sinus rhythm with septal T-wave inversion noted. 30 mg of PO prednisone administered. [facility] to write prescription for further treatment at [...] would also like to remain at home. Blast Furnace Tender Allergies: Penicillin, Aspirin ..................... ..................... ..................... ..................... ..................... ..................... ............... Disposition: Luann Gomez MD [address] [facility],[address], [place], [address], [place] - [facility] 05/19/2023 19:03:41 07/23/2024 text/html CRC Nurse Triage [...] Coronary Artery Disease, Hypertension PMH Reviewed at 07/23/2024: Allergies Reviewed at 07/23/2024:33 Comments: 69 y.o [...] ..................... ..................... ..................... ..................... ..................... ..................... ............... Blast Furnace Tender Note From Bradford Solorio: This 69-year-old female [...] because of the risks. Patient states the rig operator started her on Dupixent injections every two weeks. Patient has had two injections in the rig operator states that this could take two to three months before it starts working. Patient states she went to [facility] over the weekend and was prescribed [...] her PCP on Tuesday and involve the rig operator if necessary. I instructed her to present to the emergency department for any new or worsening severe symptoms such as chest pain, shortness of breath, dysphagia, high fever, altered mental status. The patient was given the opportunity to ask questions and is agreeable to this plan. ..................... ..................... ..................... ..................... ..................... ..................... ............... [facility] Consulted: Iris Boo ..................... ..................... ..................... ..................... ..................... ..................... ............... Disposition: Luann Boo MD [address] [facility],[address], [place], [address], [employer] 07/23/2024 19:23:45 02/27/2025 text/html ROS as noted [...] but not limited to: CHF, CAD and HTN.Life Care Planner educated Celia on safety precautions, rising slow and sitting back down if feels dizzy or unsafe, Celia verbalized understanding. ..................... ..................... ..................... ..................... ..................... ..................... ............... CRC Nurse Triage Notes (Chikis Wright): Reason For Request: Dizziness Chief Complaints: Dizziness PMH: Congestive Heart Failure, Coronary Artery Disease, Hypertension PMH Reviewed at 02/27/2025 - :57 Allergies Reviewed at 02/27/2025 - 13:57 Comments: HPI reviewed. iSTAT Chem8+ (15:26:48) Na: 141mEq/LK: 3.7mEq/LCl: 102mEq/LiCa: 1.24mmol/LTCO2: 25mmol/LGlu: 88mg/dLBUN: 18mg/dLCrea: 1.1mg/dLHct: 39%Hb: 13.3g/dLAmmol/LCartridge Number: [id number] Attachments uploaded as part of this test result can be found under Documents section. EKG (15:25:47) - This test has been updated by the it consulting director, Torsten Barclay at (02/27/2025 16:27:01). The changes are marked in bold.EKG test performed. Attachments uploaded as part of this test result can be found under Documents section. ..................... ..................... ..................... ..................... ..................... ..................... ............... Blast Furnace Tender Note From Torsten Barclay: [facility] makes pt contact a 69 yo F cc of dizziness. [facility] obtains vital signs. PT explains for 2 [...] kidney issues. Allergies to PNC and ASA. [facility] contacts [facility] and explains above mentioned. [facility] orders an istat and an ekg. Lab sample obtained via [employer] butterfly and bandaged appropriately, istat results uploaded. EKG performed and results uplaoded. [facility] advises pt against red flags which include but not limited to sob,chest pain, n,v fever, syncope, ams that she should then seek emergency medical care such as 911. [facility] also orders meclizine 25mg PO and also sends over a prescription tot he pharmacy. PT is advised to follow up with pcp regarding loss of appetite and the on going dizziness. [facility] explains are ability in the field to fully work up s/s is limited. PT understands. [facility] clear. [facility] Lab Orders: BMP, serum or plasma: Performed electrocardiogram: Performed [facility] Medication Orders: meclizine 25 mg tablet: Performed ..................... ..................... ..................... ..................... ..................... ..................... ............... [facility] Consulted: Hannah Gibbons ..................... ..................... ..................... ..................... ..................... ..................... ............... Disposition: Fulfilled SEGMD: Patient denies headache, vision changes or vision loss, speech changes, chest pain, palpitations, URI or shortness of breath, fevers, chills unexplained sweats, focal weakness or numbness, nausea, vomiting, diarrhea Hannah Gibbons MD [address] [place] [address],[address], [place], [address], [employer] 02/27/2025 20:45:06 OBGyn Episode No OBEpisode recorded.
--- OUTSIDE RECORDS SUMMARY | 2025-03-08 10:08 | XMS_ITS | Continuity of Care Document ---
Author Name [facility], Medical Address [address] [place] [address] Organization Unknown Address [address] [place] [id number] Medications No known medications Problems No known problems
--- OUTSIDE RECORDS SUMMARY | 2025-03-08 10:08 | XMS_ITS | Encounter Summary ---
Author Organization [facility] Address [address] [facility] [address] [place] [address] Encounters * CPT with Medical [facility] at [facility] on 2025-02-27 Celia called into [facility] stating [...] not limited to: CHF, CAD and HTN. Container Washer Machine educated Celia on safety precautions, rising slow [...] : , additionalComments : HPI reviewed. } [facility] makes pt contact a 69 yo F cc of dizziness. [facility] obtains vital signs. PT explains for [...] kidney issues. Allergies to PNC and ASA. [facility] contacts [facility] and explains above mentioned. [facility] orders an istat and an ekg. Lab sample obtained via [employer] butterfly and bandaged appropriately, istat results uploaded. EKG performed and results uplaoded. [facility] advises pt against red flags which include but not limited to sob,chest pain, n,v fever, syncope, ams that she should then seek emergency medical care such as 911. [facility] also orders meclizine 25mg PO and also sends over a prescription tot he pharmacy. PT is advised to follow up with pcp regarding loss of appetite and theon going dizziness. [facility] explains are ability in the field to fully work up s/s is limited. PT understands. [facility] clear. IV_(FLUIDS_AND/OR_MEDICATION), POC_BLOODWORK, ORTHOSTATIC_VITAL_SIGNS, PO_MEDICATION Written by Medical [facility] on 2025-02-27
--- OUTSIDE RECORDS SUMMARY | 2025-03-08 10:08 | XMS_ITS | Encounter Summary ---
Author Organization [facility] Address [address] [place] [address] Care Team Providers Care Pick Pulling Machine Operator Name Role Phone Curt Falk MD Primary Care Provider [phone] Encounter Details Date Type Department Care Team (Late st Contact Info) Description 09/14/2024 Lab Requisition [facility] Main Lab [address] [facility] [place] [id number] Quang Hurd MD [address] [facility] [address] [place] [address] Frequency of micturition Social History Tobacco Use [...] MICROBIOLOGY - G ENERAL ORDERABLES Final Result [facility] [address] [place] [address], documented in this encounter Visit Diagnoses Diagnosis Frequency of micturition Urinary frequency documented in this encounter Care Teams Pick Pulling Machine Operator Relationship Specialty Start Date End Date Curt Falk MD [address] [place] [address] PCP - General 07/16/21 documented as of this encounter
--- OUTSIDE RECORDS SUMMARY | 2025-03-08 10:08 | XMS_ITS | Continuity of Care Document ---
Author Organization [facility] [facility], [facility] Address [address] [place] [address] Care Team Providers Care Tube Bender Name Role Phone HIM CCA OTHER BECKY SPAIN Primary Care Provider Assessment Encounter Date Assessment Date Assessment LastModified by Organization Details LastModified Time 02/27/2025 02/27/2025 I provided real -time medical direction via phone for this encounter, and was available for additional phone based assistance as needed. I have reviewed and agree with the Assessment and Plan as documented by the Certified Personal Finance Counselor. We discussed the diagnostic uncertainty of home [...] further discussed that cannot rule out a SYSTEM ARCHITECT issue and she may need MRI/CT of the brain which we cannot order/ the patient given the opportunity to ask questions. Advised if develops CP/persistant palpitations/kortney re SOB/turning blue/uncontrolled n/v/d or black/bloody emesis or stool/ AMS/ syncope/ hi fever/severe headache, acute speech or vision changes or sudden onset of numbness or focal weakness to call 911-she verbalized understanding of instructions [email or web address] Not available 02/27/2025 20:41:38 Plan of Treatment Reminders Order Date Submit Date Provider Last Modified By Organization Details Last Modified Time Details Appointments None recorded. Lab BMP, serum or plasma 2024 [facility], [address] [place] [address], [phone] 21:12:18 Referral None recorded. Procedures None recorded. Surgeries None recorded. Imaging electrocard iogram 2024 [facility], [address] [place] [address], [phone] 20:45:29 Medication Orders meclizine 25 mg tablet 2024 [email or web address] [facility]/Pharmacy #[id number], [address] [place], [address], 15:39:19 meclizine [address] [id number] [address] [place], [address], 15:39:21 Patient TargetsNo targets recorded. Patient InstructionsNo instructions recorded. Reason for Referral None Reported. Results Created Date Observation Date Name Description Value Unit Range Abnormal Flag Note LastModifiedBy Organization Detail LastModifiedTime 02/28/2002/27/2025 elect margareth lakhanigr am No observ ation record ed. [facility], [address] 02/27/2025 21:12:32 Result Notes None recorded. Medical Equipment None Reported. Allergies Allergen ID Allergen Name Allergen Category Reaction Reaction Severity Criticality Documentation Date Start Date Code Code System Note Provider Name and Address Organization Details Recorded Time 8488 Product containin g penicilli n (product) medicatio n Not available Not available Not available 02/14/2024 67580 8001 SNOMED Not Available [facility] - production [...] 5 16 /min 62 /min 98.8 [degF] 07880.4 4 g 149.86 cm 96 % 156/78 [...] ICD10 Code Diagnosis IMO Codes Diagnosis Note [id number] Hannah Gibbons MD Main[facility] ED Medical [facility] [address] [place] [address] 02/27/2025 15:05:38 02/27/2025 21:00:52 Postural dizziness [id number] R42 [id number] stay well hydrated/ no driving while dizzy [...] Davidson Member ID Guarantor Name 02/27/[address] [facility] - DOS ON OR AFTER 2022 - DUAL ELIGIBLE - [facility] OPTIONS AND ONE CARE (MEDICARE REPLACEMENT/ADV ANTAGE - HMO) Celia Kaitlin [id number] Celia Phillips Kaitlin Notes Date Note Type [...] but not limited to: CHF, CAD and HTN.Director Of Video Analytics educated Celia on safety precautions, rising slow [...] 25mmol/LGlu: 88mg/dLBUN: 18mg/dLCrea: 1.1mg/dLHct: 39%Hb: 13.3g/dLAmmol/LCartridge Number: [id number] Attachments uploaded as part of this test result can be found under Documents section. EKG (15:25:47) - This test has been updated by the floor molder, Torsten Barclay at (02/27/2025 16:27:01). The changes are marked in bold.EKG test performed. Attachments uploaded as part of this test result can be found under Documents section. .................... .................... .................... .................... .................... .................... .................... . Certified Personal Finance Counselor Note From Torsten Barclay: [facility] makes pt contact a 69 yo F cc of dizziness. [facility] obtains vital signs. PT explains for 2 [...] kidney issues. Allergies to PNC and ASA. [facility] contacts [facility] and explains above mentioned. [facility] orders an istat and an ekg. Lab sample obtained via [employer] butterfly and bandaged appropriately, istat results uploaded. EKG performed and results uplaoded. [facility] advises pt against red flags which include but not limited to sob,chest pain, n,v fever, syncope, ams that she should then seek emergency medical care such as 911. [facility] also orders meclizine 25mg PO and also sends over a prescription tot he pharmacy. PT is advised to follow up with pcp regarding loss of appetite and the on going dizziness. [facility] explains are ability in the field to fully work up s/s is limited. PT understands. [facility] clear. [facility] Lab Orders: BMP, serum or plasma: Performed electrocardiogram: Performed [facility] Medication Orders: meclizine 25 mg tablet: Performed .................... .................... .................... .................... .................... .................... .................... . [facility] Consulted: Hannah Gibbons .................... .................... .................... .................... .................... .................... .................... . Disposition: Fulfilled SEGMD: Patient denies headache, vision changes or vision loss, speech changes, chest pain, palpitations, URI or shortness of breath, fevers, chills unexplained sweats, focal weakness or numbness, nausea, vomiting, diarrhea Hannah Gibbons MD [address] [place] [address],[address] [facility], [place], [address], [employer] 02/27/2025 20:45:06 OBGyn Episode No OBEpisode recorded.
--- OUTSIDE RECORDS SUMMARY | 2025-03-08 10:08 | XMS_ITS | Clinical Summary ---
Author Organization [facility] Location Address [address] [place] [address] Phone Care Team Providers Care Mig Tig Welder Name Role Phone Curt Falk MD Primary Care Provider + [phone] Allergies Active Allergy Reactions Criticality Noted Date [...] Encounters Date Type Department Care Team Description 03/01/2025 4:21 PM EST - 03/01/2025 5:57 PM EST [facility] Emergency [address] [place] [address] Ari Gonzalez MD Discharge Disposition: Left Against Medical Advice 02/18/2025 Results Follow-Up [facility] Cardiology [facility] [address] [facility] [address] [place] [address] Lew Lowery NP 01/17/2025 9:38 AM EDT - 01/17/2025 11:59 PM EDT Hospital Encounter [facility] Non-Invasive Cardiology [address] [place] [address] Discharge Disposition: Home or Self Care 01/17/2025 9:35 AM EDT - 01/17/2025 11:59 PM EDT Hospital Encounter [facility] PET Scan [address] [place] [address] Chest pain at rest; Dyspnea on exertion Discharge Disposition: Home or Self Care 12/10/2024 10:50 AM EDT Office Visit [facility] Cardiology [facility] [address] [facility] [address] [place] [address] Yohana Wallace MD Dyspnea on exertion (Primary [...] Hyperlipidemia Hypertension CHF (congestive heart failur e) (CMS/[facility] V24, CMS/[facility] V28) Shortness of breath Chronic [...] Sign Reading Time Taken Comments Blood Pressure 114/63 03/01/2025 3:34 PM EST Pulse 76 03/01/2025 3:34 PM EST Temperature 36.7 C (98.1 F) 03/01/2025 3:34 PM EST Respiratory Rate 16 03/01/2025 3:34 PM EST Oxygen Saturation 97% 03/01/2025 3:34 PM EST Inhaled Oxygen Concentration - - Weight 88 kg (194 lb) 03/01/2025 3:34 PM EST Height 149.9 cm (4' 11 ) 03/01/2025 3:34 PM EST Body Mass Index 39.18 03/01/2025 3:34 PM EST Plan of Treatment Health Maintenance [...] Screening 03/21/2022 Depression Screening 04/18/2024 COVID-19 Vaccine ( - 2024-2 6 season) 2024 Influenza Vaccine (#1) 2024 Falls [...] this topic Medical Devices Implanted Type Area Mix Technician Device Identifier Shelf Expiration Date Model / Serial / Lot Joints Knee Joints Knee Right: Knee Cable Ext Interstim 4.32mm - Sn/A - [id number] Implanted:Qty: 1 on 08/15/2024 by Quang Hurd MD at [facility] Neurostim N/A: Sacrum [employer] 09/12/2025 [id number] / N/A / [id number] Kit Mri Lead Interstim 4.32-28cm - Sn/A - [id number] Implanted:Qty: 1 on 08/15/2024 by Quang Hurd MD at [facility] Neurostim N/A: Sacrum [employer] 10/09/2025 [id number] / N/A / [id number] System Interstim X Recharge-Free F/Bladder/Valentina l Cntrl - [id number] - [id number] Implanted:Qty: 1 on 08/27/2024 by Quang Hurd MD at [facility] Neurostim N/A: Back [employer] 06/15/2025 [id number] / [id number] / N/A Procedures Procedure Name Priority [...] There is no evidence of inducible ischemia. Yohana Wallace MD CV CARDIAC NUCLEAR PROCEDURES F inal Result * ECG 12 lead (12/10/2024 10:39 AM EDT) Ventricular Rate ECG 71 BPM GEMUSE Atrial Rate 71 BPM GEMUSE P-R Interval 132 ms GEMUSE QRS Duration 82 ms GEMUSE Q-T Interval 378 ms GEMUSE QTc 410 ms GEMUSE P Wave Mcadoo 55 degrees GEMUSE R Mcadoo 16 degrees GEMUSE T Mcadoo -57 degrees GEMUSE ECG Interpretation Normal sinus [...] Comprehensive metabolic panel (10/01/2024 10:58 AM EDT) Pathologist [facility] Sodium 139 133 - 145 mmol/L LAB CHEMISTRY METHOD 10/01/2024 11:58 AM EDT [facility] Potassium 3.9 3.5 - 5.5 mmol/L LAB CHEMISTRY METHOD 10/01/2024 11:58 AM EDT [facility] Chloride 106 96 - 110 mmol/L LAB CHEMISTRY METHOD 10/01/2024 11:58 AM EDT [facility] CO2 31 21 - 32 mmol/L LAB CHEMISTRY METHOD 10/01/2024 11:58 AM EDT [facility] Anion Gap 2(L) 3 - 11 LAB CHEMISTRY METHOD 10/01/2024 11:58 AM [facility] Glucose 93 70 - 100 mg/dL LAB CHEMISTRY METHOD 10/01/2024 11:58 AM [facility] BUN 12 5 - 25 mg/dL LAB CHEMISTRY METHOD 10/01/2024 11:58 AM [facility] Creatinine 0.88 0.50 - 1.10 mg/dL LAB CHEMISTRY METHOD 10/01/2024 11:58 AM [facility] eGFR 71 >=60 mL/min/1. 73m2 LAB CHEMISTRY METHOD 10/01/2024 11:58 AM [facility] Comment:Calculation based on the Chronic Kidney Disease Epidemiology Collaboration (CKD-EPI) equation refit without adjustment for race. BUN/Creatinine Ratio 13.6 LAB CHEMISTRY METHOD 10/01/2024 11:58 AM [facility] Calcium 9.1 8.5 - 10.5 mg/dL LAB CHEMISTRY METHOD 10/01/2024 11:58 AM [facility] AST (SGOT) 22 10 - 42 unit/L LAB CHEMISTRY METHOD 10/01/2024 11:58 AM [facility] ALT (SGPT) 26 10 - 60 unit/L LAB CHEMISTRY METHOD 10/01/2024 11:58 AM [facility] Alkaline Phosphatase 70 42 - 121 unit/L LAB CHEMISTRY METHOD 10/01/2024 11:58 AM [facility] Total Protein 6.6 6.0 - 8.0 g/dL LAB CHEMISTRY METHOD 10/01/2024 11:58 AM [facility] Albumin 3.9 3.2 - 5.0 g/dL LAB CHEMISTRY METHOD 10/01/2024 11:58 AM [facility] Total Bilirubin 0.5 0.0 - 1.4 mg/dL LAB CHEMISTRY METHOD 10/01/2024 11:58 AM [facility] Blood Venous blood specimen / Unknown Venipuncture / Unknown 10/01/2024 10:58 AM EDT 10/01/2024 11:13 AM EDT us Skip Aquino DO LAB BLOOD ORDERABLES Final Res ult [facility] [address] [place] [address], from Last 3 Months or Most Recently Relevant to Health Maintenance Insurance [facility] MEDICARE Member Subscriber Plan / Payer (Ef fective 2019-Present) Name:Celia Madrigal Relation to Subscriber:Self Name:Celia Marquez Payer ID:[id number] Group ID:[id number] Type:Not on file Address: [place] [facility] [place] [address] Care Teams Mig Tig Welder Relationship Specialty Start Date End Date Curt Falk MD [address] [place] [address] [address] [place] PCP - General 07/16/21
--- OUTSIDE RECORDS SUMMARY | 2025-03-08 10:08 | XMS_ITS | Encounter Summary ---
Author Organization [facility] Address [address] [place] [address] Care Team Providers Care Anchor Tack Puller Name Role Phone Curt Falk MD Primary Care Provider [phone] Encounter Details Date Type Department Care Team (Late st Contact Info) Description 02/18/2025 Results Follow-Up [facility] [address] [facility] [phone] Lew Lowery NP [address] [place] [address] [place] [phone] Social History Tobacco Use Types Packs/Day Years [...] on filedocumented in this encounter Care Teams Anchor Tack Puller Relationship Specialty Start Date End Date Curt Falk MD [address] [place] [address] Dr [address] [place] PCP - General 07/16/21 documented as of this encounter
--- OUTSIDE RECORDS SUMMARY | 2025-03-08 10:08 | XMS_ITS | Patient Health Record ---
Author Organization [facility] Address [address] [place] [address] Care Team Providers Care Development Coordinator Name Role Phone Dileep HIGGINS, Curt Primary Care Provider Perez Lee Jr Unavailable [phone] Allergies Allergen (clinical drug ingredient) Drug/Non Drug Allergy documented on EMR Reaction Allergy Type Onset Date Status Penicillin Unknown Drug Allergy Active Reason For Referral No Information Plan Of Treatment No Information Insurance Providers Payer Name Payer Address Payer Phone Subscriber Number Group Number Insured Name Patient Relationship to Insured Coverage Start Date Coverage End Date [facility] [address] [address] [place], [place] [id number] MARCI CHATMAN Self - patient is the insured Medical (General) History Medical History History ICD Code 09-29-2005 egd with balloon dilation 07-17-2004 colon and egd gerd irritable bowel syndrome panic attacks depression anxiety elevated cholesterol chronic pain syndrome nephrolithiasis status post lithotripsy cystitis Surgical History Surgery Date(Month/Year) oophorectomy hysterectomy
== END 2025-03-08 10:19 | disposition home or self-care (01) ==
LOC: HO.HMCH 09:34
PROVIDERS: PCP Internal Medicine; Visit Provider Internal Medicine
DX: E78.00 Pure hypercholesterolemia, unspecified (principal); M25.551 Pain in right hip; M25.552 Pain in left hip; R29.898 Other symptoms and signs involving the musculoskeletal system; L50.9 Urticaria, unspecified; R06.09 Other forms of dyspnea; J45.40 Moderate persistent asthma, uncomplicated; K21.9 Gastro-esophageal reflux disease without esophagitis; R53.83 Other fatigue; G47.00 Insomnia, unspecified; F41.9 Anxiety disorder, unspecified; F33.9 Major depressive disorder, recurrent, unspecified; E66.9 Obesity, unspecified

== ENCOUNTER → 2025-03-08 09:33 | Outpatient (BNVA) | payer OTHER, SELFPAY | PROVIDERS: PCP Internal Medicine; Visit Provider Internal Medicine | DX: R06.00 Dyspnea, unspecified (principal); R07.89 Other chest pain; R42 Dizziness and giddiness; E78.00 Pure hypercholesterolemia, unspecified; M25.551 Pain in right hip; M25.552 Pain in left hip; R29.898 Other symptoms and signs involving the musculoskeletal system; L50.9 Urticaria, unspecified; R06.09 Other forms of dyspnea; J45.40 Moderate persistent asthma, uncomplicated; K21.9 Gastro-esophageal reflux disease without esophagitis; G47.00 Insomnia, unspecified; F41.9 Anxiety disorder, unspecified; F33.9 Major depressive disorder, recurrent, unspecified; E66.9 Obesity, unspecified; L29.9 Pruritus, unspecified; Z68.39 Body mass index [BMI] 39.0-39.9, adult; Z79.899 Other long term (current) drug therapy | CPT/HCPCS: 96127; 99212 ==